=== PATIENT | female | born 1960 | race Caucasian/White ===

== ENCOUNTER → 2017-10-02 11:19 | Outpatient (CLI) | payer OTHER, SELFPAY ==
[2017-10-02 12:27] LABS: Absolute Lymphocyte Count 2.23 X10^3/ul (0.83-4.51); Basophil# 0.08 X10^3/uL; Basophil% 0.9 % (0-1); Eosinophil# 0.19 X10^3/uL; Eosinophils% 2.2 % (0-5); Hematocrit 29.7 % (37-47); Hemoglobin 8.2 g/dl (12.0-15.0); Lymphocyte # 2.23 X10^3/ul (4.0); Lymphocyte % 26.1 % (19-41); Mean Corp Hgb Conc 27.6 g/gl (32-36); Mean Corpuscular Hgb 22.3 pg (27.0-32.0); Mean Corpuscular Volume 80.9 fL (81-99); Mean Platelet Vol. 10.7 fl (6.2-12.0); Monocyte# 1.05 X10^3/uL; Monocyte% 12.3 % (0-10); Neutrophil # 4.96 X10^3/uL (2.7-7.7); Neutrophil % 58.3 % (47-70); Platelet Count 378 K/mm3 (150-450); RBC Distribution Width CV 17.8 % (11.6-14.6); RBC Distribution Width SD 50.8 fl (35.1-43.9); Red Blood Count 3.67 M/mm3 (4.2-5.4); White Blood Count 8.5 K/mm3 (4.4-11.0)
[2017-10-02 12:30] LABS: POSITIVE COUNT NO; POSITIVE DIFFERENTIAL NO; POSITIVE MORPHOLOGY NO
[2017-10-02 13:32] LABS: ALB/GLOB Ratio 0.8 RATIO (0.9-2.4); AST(SGOT) 12 U/L (15-37); Alanine Aminotransfer ALT/SGPT 17 U/L (13-56); Albumin, Serum 3.2 g/dL (3.2-5.0); Alkaline Phosphatase 110 U/L (45-117); Anion Gap 12 (5-15); BUN 12 mg/dL (7-18); BUN/Creat Ratio 13.9 RATIO (10-20); Calcium,Total 8.3 mg/dL (8.5-10.1); Chloride 103 mmol/L (98-107); Creatinine, Serum 0.86 mg/dL (0.55-1.02); EST Glomerular Filtration Rate 71 mL/min (>60); Est Glom Filt Rate - Afr Amer 86 mL/min (>60); Globulin 3.8 g/dL (2.2-4.2); Glucose 134 mg/dL (74-106); Potassium 4.2 mmol/L (3.5-5.1); Sodium Level 137 mmol/L (136-145); Thyroid Stim Hormone (TSH) 2.15 uIU/mL (0.358-3.74)
[2017-10-02 13:38] LABS: Vitamin D,25 Hydroxy 22.5 ng/mL (19.95-100.01)
== END ==
PROVIDERS: Family Provider Family Medicine Geriatric Medicine; PCP Family Medicine Geriatric Medicine; Visit Provider Family Medicine Geriatric Medicine
DX: I10 Essential (primary) hypertension (principal); E03.9 Hypothyroidism, unspecified; E55.9 Vitamin D deficiency, unspecified
CPT/HCPCS: 36415; 80053; 82306; 84443; 85025

== ENCOUNTER → 2017-10-13 16:08 | Outpatient (CLI) | payer OTHER, SELFPAY ==
[2017-10-13 17:40] LABS: Anion Gap 6 (5-15); BUN 13 mg/dL (7-18); BUN/Creat Ratio 18.1 RATIO (10-20); Calcium,Total 8.2 mg/dL (8.5-10.1); Chloride 106 mmol/L (98-107); Creatinine, Serum 0.72 mg/dL (0.55-1.02); EST Glomerular Filtration Rate 88 mL/min (>60); Est Glom Filt Rate - Afr Amer 107 mL/min (>60); Glucose 127 mg/dL (74-106); Potassium 3.9 mmol/L (3.5-5.1); Sodium Level 139 mmol/L (136-145)
[2017-10-13 17:58] LABS: BNP,B-Type NATRIURETIC PEPTIDE 30.4 pg/mL (0-100)
== END ==
PROVIDERS: Family Provider Family Medicine Geriatric Medicine; PCP Family Medicine Geriatric Medicine; Visit Provider Physician Assistant Medical
DX: I25.10 Atherosclerotic heart disease of native coronary artery without angina pectoris (principal); R06.02 Shortness of breath; R60.9 Edema, unspecified
CPT/HCPCS: 36415; 80048; 83880

== ENCOUNTER → 2017-10-14 10:20 | Outpatient (CLI) | payer OTHER, SELFPAY ==
--- NOTE | 2017-10-14 19:51 | LEAS_ITS ---
Arterial Study - Arterial Study Arterial Study: This is a 57-year-old female with a history of hypertension and coronary artery disease. The patient presents with bilateral lower extremity pain with ambulation, suggesting the presence of intermittent claudication resulting from arterial occlusive disease. She is brought to the noninvasive vascular laboratory at this time for the purpose of bilateral noninvasive lower extremity arterial assessment. Doppler signal assessment was used to evaluate the pulses at ankle level bilaterally. The posterior tibial and dorsalis pedis pulses were triphasic bilaterally. Segmental limb pressures were obtained at ankle level bilaterally. The right ankle pressure, as determined by posterior tibial pulse, was measured at 123 mmHg. The right ankle pressure, as determined by dorsalis pedis pulse, was measured at 132 mmHg. The left ankle pressure, as determined by posterior tibial pulse, was measured at 138 mmHg. The left ankle pressure, as determined by dorsalis pedis pulse, was measured at 118 mmHg. Resting ankle-brachial indices were calculated bilaterally. The resting right ankle-brachial index was calculated to be 1.02. The resting left ankle- brachial index was calculated to be 1.07. Impression: Based upon the findings of this resting noninvasive lower extremity arterial study, there is no evidence of significant atherosclerotic peripheral arterial occlusive disease in the lower extremities bilaterally. Triphasic waveforms were noted at ankle level bilaterally. Resting ankle-brachial indices were bilaterally normal. In summary, this represents a normal resting noninvasive lower extremity arterial study bilaterally.
== END ==
PROVIDERS: Family Provider Family Medicine Geriatric Medicine; PCP Family Medicine Geriatric Medicine; Visit Provider Family Medicine Geriatric Medicine
DX: I73.9 Peripheral vascular disease, unspecified (principal)
CPT/HCPCS: 93922

== ENCOUNTER → 2017-10-29 15:10 | Outpatient (CLI) | payer OTHER, SELFPAY | PROVIDERS: Family Provider Family Medicine Geriatric Medicine; PCP Family Medicine Geriatric Medicine; Visit Provider Family Medicine Geriatric Medicine | DX: R68.83 Chills (without fever) (principal) | CPT/HCPCS: 87633 ==

== ENCOUNTER → 2017-11-02 06:09 | Outpatient (CLI) | payer OTHER, SELFPAY ==
--- NOTE | 2017-11-02 18:18 | STRESSREP ---
Stress Test Report Pharmacologic myocardial perfusion stress test. 57-year-old lady with a history of chest pain. Stress protocol: Resting EKG demonstrates normal sinus rhythm with a rate of 73 bpm normal intervals and noted resting pressures 142/80 mmHg. 0.4 mg of regadenoson was infused per usual protocol followed by rapid intravenous saline flush injection continuous EKG monitoring was performed. The maximum heart rate attained was 92 bpm is 57% maximum predicted heart rate the maximum workload attained was 1 metabolic equivalent. At rest there were no ST or T-wave changes noted suggest abnormal flow reserve at peak infusion no ST or T-wave changes were noted suggest abnormal flow reserve. Resting blood pressure is 142/80 final blood pressure was 140/72. Myocardial perfusion protocol. 14.4 mCi of technetium 99m sestamibi was injected at rest. 0.4 mg regadenoson was infused per usual protocol. Continuous EKG monitoring was performed. At peak infusion 44.3 mCi of technetium 99 sestamibi was injected stress images were obtained stress and rest images were reconstructed and compared in the short axis vertical long horizontal long axis. Gated images were also obtained next Perfusion SPECT analysis: Review of the stress images demonstrate normal uptake of tracer noted in all areas of the myocardium. The rest images similarly demonstrate normal uptake of tracer noted in all areas of myocardium. No areas of reversibility are noted suggest ischemia no previous infarct is noted. Gated SPECT analysis: The gated ejection fraction is 72%. Conclusion Normal pharmacologic myocardial perfusion stress test. Preserved ejection fraction.
== END ==
PROVIDERS: Family Provider Family Medicine Geriatric Medicine; PCP Family Medicine Geriatric Medicine; Visit Provider Physician Assistant Medical
DX: I25.10 Atherosclerotic heart disease of native coronary artery without angina pectoris (principal); I10 Essential (primary) hypertension; R07.9 Chest pain, unspecified
CPT/HCPCS: 78452; 93017; A9500; A4216; J2785

== ENCOUNTER 2017-11-30 18:13 | Inpatient (IN) | payer OTHER, SELFPAY ==
[2017-11-30] VITALS (13 sets, daily range): BP systolic 101–138; BP diastolic 43–71; PULSE 73–81; RESP 15–21; TEMP 36.7–37.1; O2SAT 95–99; BMI 43.2; BMI 38.5
--- NOTE | 2017-11-30 18:43 | EKG12_ITS ---
Test Reason : HYPOTENSION Blood Pressure : / mmHG Vent. Rate : 078 BPM Atrial Rate : 078 BPM P-R Int : 158 ms QRS Dur : 096 ms QT Int : 386 ms P-R-T Axes : 057 044 047 degrees QTc Int : 440 ms Normal sinus rhythm Normal ECG Confirmed by HEMAL AGUILAR MD ([id number]), acquisition editor MANJIT PINEDA ([id number] on 12/03/2017 1:54:50 PM Referred By: CONCHITA Confirmed By:HEMAL AGUILAR MD
[2017-11-30 19:13] LABS: Absolute Lymphocyte Count 3.38 X10^3/ul (0.83-4.51); Absolute Neutrophil Count 3.9 X10^3/uL (2.0-7.7); Basophil# 0.07 X10^3/uL; Basophil% 0.8 % (0-1); Eosinophil# 0.16 X10^3/uL; Eosinophils% 1.9 % (0-5); Hematocrit 21.7 % (37-47); Lymphocyte # 3.38 X10^3/ul (4.0); Lymphocyte % 39.7 % (19-41); Mean Corp Hgb Conc 26.3 g/gl (32-36); Mean Corpuscular Hgb 19.2 pg (27.0-32.0); Mean Corpuscular Volume 73.1 fL (81-99); Mean Platelet Vol. 9.6 fl (6.2-12.0); Monocyte# 0.99 X10^3/uL; Monocyte% 11.6 % (0-10); Neutrophil # 3.89 X10^3/uL (2.7-7.7); Neutrophil % 45.6 % (47-70); Platelet Count 317 K/mm3 (150-450); RBC Distribution Width CV 19.3 % (11.6-14.6); RBC Distribution Width SD 52.1 fl (35.1-43.9); Red Blood Count 2.97 M/mm3 (4.2-5.4); White Blood Count 8.5 K/mm3 (4.4-11.0)
[2017-11-30 19:16] LABS: Differential Indicated SCAN CRITERIA MET; Hemoglobin 5.7 g/dl (12.0-15.0); POSITIVE COUNT YES; POSITIVE DIFFERENTIAL NO; POSITIVE MORPHOLOGY YES
--- NOTE | 2017-11-30 19:16 | ED.RN ---
LAB CALLS WITH CRITICAL RESULT, HEMOGLOBIN 5.7, DR. ARANGO MADE AWARE.
[2017-11-30 19:24] LABS: International Normalized Ratio 1.3; Prothrombin Time (Protime)PT. 15.8 SECONDS (11.7-14.9)
[2017-11-30 19:25] LABS: Partial Thromboplast Time 45.6 Seconds (24.1-36.2)
[2017-11-30 19:30] LABS: Anisocytosis 2+; Microcytosis 3+
[2017-11-30 19:31] LABS: ALB/GLOB Ratio 0.9 RATIO (0.9-2.4); AST(SGOT) 34 U/L (15-37); Alanine Aminotransfer ALT/SGPT 18 U/L (13-56); Albumin, Serum 3.2 g/dL (3.2-5.0); Alkaline Phosphatase 105 U/L (45-117); Anion Gap 8 (5-15); BUN 13 mg/dL (7-18); BUN/Creat Ratio 16.3 RATIO (10-20); Chloride 111 mmol/L (98-107); EST Glomerular Filtration Rate 78 mL/min (>60); Est Glom Filt Rate - Afr Amer 94 mL/min (>60); Estimated Creatinine Clearance 73.63 ml/min; Globulin 3.7 g/dL (2.2-4.2); Glucose 100 mg/dL (74-106); Hypochromasia 3+; Polychromasia RARE; Potassium 4.3 mmol/L (3.5-5.1); Protein, Total 6.9 g/dL (6.4-8.2); Sodium Level 142 mmol/L (136-145)
[2017-11-30 19:39] LABS: Bacteria 0 SEEN /hpf (None Seen); Color, Urine Yellow (Yellow); Glucose, Dipstick Normal (Normal); Ketone-Dipstick 5 mg/dl (Negative); Leukocyte Esterase-Dipstick 25 /ul (Negative); Mucous, Urine 0 SEEN /hpf (<or=2+); Nitrite-Dipstick Negative (Negative); Occult Blood-Urine Negative /ul (Negative); Protein-Dipstick 15 mg/dl (Negative); Red Blood Cells-Urine 0 SEEN /hpf (0-5); Urine Bilirubin Dipstick Negative (Negative); Urine Clarity Sl. Cloudy (Clear); Urine Urobilinogen 1 mg/dl (Normal)
[2017-11-30 20:00] LABS: Squamous Epithelial Cells - UA 0-5 SEEN /hpf (5-10); White Blood Cells 0-5 SEEN /hpf (0-5)
--- NOTE | 2017-11-30 21:26 | HP.PCM_ITS ---
Problem List (1) Gastrointestinal bleed Status: Acute Qualifiers: GI bleed type/associated pathology: unspecified gastrointestinal hemorrhage type Qualified Code(s): K92.2 - Gastrointestinal hemorrhage, unspecified (2) Nicotine abuse Status: Chronic (3) Atherosclerotic heart disease of [place] coronary artery without angina pectoris Status: Chronic Qualifiers: Comment: PTCA of RA & diagonal with intracoronary stent November 2008 (4) Presence of stent in coronary artery Status: Chronic (5) CAD (coronary artery disease) Status: Chronic Qualifiers: (6) Hypertension Status: Chronic Qualifiers: (7) Hyperlipidemia Status: Chronic Qualifiers: History of Present Illness Date of Admission: 11/30/17 Chief Complaint: fatigue , gastrointestinal bleed The patient is a 57 year old female patient presents to the ER with severe fatigue. The patient has a history of an arterial blood clot in her right leg diagnosed in June. She has been on Coumadin until of last week when her physician started Lovenox shots. She has a history of three coronary artery stents in 2008 and formerly took aspirin and Plavix. Over the past four months she has been diagnosed with anemia Hg reported as 8 but has had no hemoglobin checks since four months ago, according to the patient. She now has a hemoglobin of 5.7 and is clinically fatigued. She denies chest pain or shortness of breath. She has been typed and crossed for two units of PRBC by the ER physician. Dr Foster has requested a Protonix drip and a total of 3 units of PRBC prior to his plan for colonoscopy/endocopy at 1:00 tomorrow. She will be placed in ICU due to severe microcytic hypochromatic anemia. 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) CAD (coronary artery disease) (Chronic) Hypertension (Chronic) Hyperlipidemia (Chronic) Dysarthria (Chronic) Expressive language disorder (Chronic) Allergies bupropion [From Wellbutrin] Allergy (Verified 11/30/17 18:17) Rash [id number] Reductase Inhibitor Allergy (Verified 11/30/17 18:17) Other UNABLE TO WALK codeine Adverse Reaction (Verified 11/30/17 18:17) Other PT REPORTS GOING TO SLEEP AND HAS HARD TIME WAKING UP Home Medications: Ambulatory Orders Medication Instructions Recorded Metoprolol(XL)Succ [Toprol Xl 50 mg PO BID 09/05/16 (Beta Marlon)] duloxetine 60 mg capsule,delayed 60 mg PO BID cap 07/27/17 release lisinopril 20 mg tablet 20 mg PO QDAY 07/27/17 warfarin 6 mg tablet 8.5 mg PO DAILY 07/27/17 isosorbide mononitrate ER 60 mg 60 mg PO DAILY #90 tab 10/14/17 tablet,extended release 24 hr nitroglycerin 0.4 mg sublingual 0.4 mg SUBLINGUAL Q5-15M PRN #25 10/14/17 tablet tab polysaccharide iron complex 150 mg 150 mg PO QDAY cap 11/13/17 iron capsule omeprazole 40 mg capsule,delayed 40 mg PO QDAY 11/23/17 release rosuvastatin 10 mg tablet 10 mg PO QHS tab 11/23/17 Enoxaparin Sodium [Lovenox] 120 mg SQ BID 11/30/17 Levothyroxine [Synthroid] 25 mcg PO DAILY 11/30/17 Surgical History: appendectomy Smoking Status: Current every day smoker - *Family History Maternal History Items: No pertinent history Review of Systems Constitutional: Reports: Weakness, Fatigue. Denies: Chills, Fever, Weight Change HEENT: Denies: Head Aches, Sinus Congestion, Sinus Drainage Cardiovascular: Denies: Chest Pain, Palpitations Respiratory: Denies: Cough, Shortness of breath at rest, Sputum production Gastrointestinal: Denies: Abdominal Pain, Nausea, Vomiting Genitourinary: Denies: Dysuria Musculoskeletal: Denies: Joint Pain, Joint Tenderness Skin: Denies: Rash, Wounds Neurological: Denies: Numbness, Tingling, Focal weakness Psychiatric: Denies: Anxiety, Depression, Homicidal Ideations, Suicidal Ideations Hematologic/ Lymphatic: Reports: Anemia. Denies: Easy Bruising, Easy Bleeding VTE Information - Inpt Only VTE Present on Admission: No VTE Mechan Device Prophylaxis: SCD's VTE Pharm Prophylaxis ordered?: No Reason prophylaxis not ordered:: Medical Contraindication Patient Problems: Active and Suspected Problems (Last Reviewed 11/24/17 @ 13:16 by Phi Morris) Gastrointestinal bleed (Acute) - Physical Exam General: Alert, Oriented x3, Cooperative, Lethargic HEENT: Atraumatic, Normocephalic Neck: Supple Lungs: Clear to auscultation, Normal air movement, No rhonchi, No wheeze, No rales Cardiovascular: Regular rate, Regular Rhythm, Normal S1, Normal S2, No murmurs Abdomen: Bowel Sounds Present, Soft, Non Tender, Obese Extremities: Capillary Refill Less than 3 Seconds, Edema - 1+ lower ext edema Skin: No rashes, No breakdown Musculoskeletal: No Tenderness to Palpation of Joints or Extremities Neurological: Neuro grossly intact Psych/Mental Status: Normal Affect, Appropriate Vital Signs Temp Pulse Resp BP Pulse Ox 98.8 F 73 15 136/56 H 96 11/30/17 21:08 11/30/17 21:08 11/30/17 21:08 11/30/17 21:08 11/30/17 21:08 Oxygen Delivery Method Room Air Weight: 276 lb 0.3 oz Body Mass Index (BMI) 43.2 Intake and Output for Last 24 Hours 11/28/17 11/29/17 11/30/17 23:59 23:59 23:59 Intake Total 0 / 0 Balance 0 / 0 Laboratory Tests Past 24 Hrs 11/30/17 11/30/17 11/30/17 18:50 18:50 18:50 WBC 8.5 RBC 2.97 L Hgb 5.7 L* Hct 21.7 L MCV 73.1 L MCH 19.2 L MCHC 26.3 L RDW 19.3 H RDW Differential 52.1 H Plt Count 317 MPV 9.6 Immature Gran % (Auto) 0.400 Neut % (Auto) 45.6 L Lymph % (Auto) 39.7 Pershing % (Auto) 11.6 H Eos % (Auto) 1.9 Baso % (Auto) 0.8 Absolute Neuts (auto) 3.9 Absolute Lymphs (auto) 3.38 Total Counted Not Reportable Diff Path Review May foll Polychromasia RARE Hypochromasia 3+ Anisocytosis 2+ Microcytosis 3+ PT 15.8 H INR 1.3 APTT 45.6 H Sodium 142 Potassium 4.3 Chloride 111 H Carbon Dioxide 23.0 Anion Gap 8 BUN 13 Creatinine 0.80 Estim Creat Clear Calc 73.63 Est GFR (MDRD) Af Amer 94 Est GFR (MDRD) Non-Af 78 BUN/Creatinine Ratio 16.3 Glucose 100 Calcium 8.0 L Total Bilirubin 0.40 AST 34 ALT 18 Alkaline Phosphatase 105 Total Protein 6.9 Albumin 3.2 Globulin 3.7 Albumin/Globulin Ratio 0.9 Urine Color Urine Clarity Urine pH Ur Specific [place] Urine Protein Urine Glucose (UA) Urine Ketones Urine Occult Blood Urine Nitrite Urine Bilirubin Urine Urobilinogen Ur Leukocyte Esterase Urine RBC Urine WBC Ur Squamous Epith Cells Urine Bacteria Urine Mucus Blood Type Antibody Screen Crossmatch 11/30/17 11/30/17 11/30/17 18:50 18:50 18:50 WBC RBC Hgb Hct MCV MCH MCHC RDW RDW Differential Plt Count MPV Immature Gran % (Auto) Neut % (Auto) Lymph % (Auto) [place]hing % (Auto) Eos % (Auto) Baso % (Auto) Absolute Neuts (auto) Absolute Lymphs (auto) Total Counted Diff Path Review Polychromasia Hypochromasia Anisocytosis Microcytosis PT INR APTT Sodium Potassium Chloride Carbon Dioxide Anion Gap BUN Creatinine Estim Creat Clear Calc Est GFR (MDRD) Af Amer Est GFR (MDRD) Non-Af BUN/Creatinine Ratio Glucose Calcium Total Bilirubin AST ALT Alkaline Phosphatase Total Protein Albumin Globulin Albumin/Globulin Ratio Urine Color Yellow Urine Clarity Sl. Cloudy Urine pH 6.0 Ur Specific [place] 1.020 Urine Protein 15 H Urine Glucose (UA) Normal Urine Ketones 5 H Urine Occult Blood Negative Urine Nitrite Negative Urine Bilirubin Negative Urine Urobilinogen 1 H Ur Leukocyte Esterase 25 H Urine RBC 0 SEEN Urine WBC 0-5 SEEN Ur Squamous Epith Cells 0-5 SEEN Urine Bacteria 0 SEEN Urine Mucus 0 SEEN Blood Type O POSITIVE Antibody Screen NEGATIVE Crossmatch See Detail Assessment/Plan Active and Suspected Problems (Last Reviewed 11/24/17 @ 13:16 by Phi Morris) Gastrointestinal bleed (Acute) Chronic Problems (Last Reviewed 11/24/17 @ 13:16 by Phi Morris) Nicotine abuse (Chronic) Atherosclerotic heart disease of [place] coronary artery without angina pectoris (Chronic) PTCA of RA & diagonal with intracoronary stent November 2008 Presence of stent in coronary artery (Chronic) 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
[2017-12-01] VITALS (29 sets, daily range): BP systolic 122–161; BP diastolic 53–80; PULSE 69–89; RESP 16–22; TEMP 36.5–37.1; O2SAT 93–97
[2017-12-01 00:13] LABS: M R Staph aureus DNA By PCR Negative (Negative); Probe Check PASS; Specimen Processing Control PASS
[2017-12-01 04:06] LABS: Hematocrit 24.4 % (37-47); Mean Corp Hgb Conc 28.7 g/gl (32-36); Mean Corpuscular Hgb 21.9 pg (27.0-32.0); Mean Corpuscular Volume 76.3 fL (81-99); Mean Platelet Vol. 10.6 fl (6.2-12.0); Platelet Count 261 K/mm3 (150-450); RBC Distribution Width CV 18.8 % (11.6-14.6); RBC Distribution Width SD 50.4 fl (35.1-43.9); White Blood Count 5.5 K/mm3 (4.4-11.0)
[2017-12-01 04:58] LABS: Scan Indicated on CBC? Y/N YES- FLAGS NOTED
[2017-12-01 04:59] LABS: Differential Comment SCANNED
--- NOTE | 2017-12-01 07:11 | PCM.CON.CC ---
Reason for Consult Date of Consultation: 12/01/17 Reason for Consultation: Acute blood loss anemia History of Present Illness: The patient is a 57-year-old female, with a history as outlined below, who presented to the emergency department on November 30 with complaints of fatigue. The patient does have a history of coronary artery disease for which she is status post angioplasty and stenting of her RCA in 2008. She also had a mild CVA in June 2012 and was noted to have bilateral carotid stenosis for which she underwent endarterectomy. She also has known obstructive sleep apnea. The patient was seen in the office of Dr. Vanessa of general surgery on November 13 for evaluation of anemia and melena. There were initial plans for the patient to undergo an outpatient upper and lower endoscopy. On presentation to the emergency department, the patient was noted to be afebrile and hemodynamically stable. She was maintaining appropriate oxygen saturations on room air. Laboratory evaluation revealed a hemoglobin level of 5.7 g/dL. Her last hemoglobin in our system from September 2017 was 8.2 g/dL. MCV was noted to be 73. INR was normal at 1.3. Chemistry profile was largely unremarkable. Urinalysis was negative. MRSA screen was negative. The patient received 3 units of packed red blood cells and was subsequently transferred to the medical intensive care unit for ongoing management. Of note, gastroenterology was contacted regarding the patient and they plan to perform endoscopy sometime today. 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) CAD (coronary artery disease) (Chronic) Hypertension (Chronic) Hyperlipidemia (Chronic) Dysarthria (Chronic) Expressive language disorder (Chronic) Allergies bupropion [From Wellbutrin] Allergy (Verified 11/30/17 18:17) Rash Qysylkz-Vxs-Rvm Reductase Inhibitor Allergy (Verified 11/30/17 18:17) Other UNABLE TO WALK codeine Adverse Reaction (Verified 11/30/17 18:17) Other PT REPORTS GOING TO SLEEP AND HAS HARD TIME WAKING UP Home Medications: Ambulatory Orders Medication Instructions Recorded duloxetine 60 mg capsule,delayed 60 mg PO BID cap 07/27/17 release lisinopril 20 mg tablet 20 mg PO QDAY 07/27/17 isosorbide mononitrate ER 60 mg 60 mg PO DAILY #90 tab 10/14/17 tablet,extended release 24 hr nitroglycerin 0.4 mg sublingual 0.4 mg SUBLINGUAL Q5-15M PRN #25 10/14/17 tablet tab polysaccharide iron complex 150 mg 150 mg PO QDAY cap 11/13/17 iron capsule omeprazole 40 mg capsule,delayed 40 mg PO QDAY 11/23/17 release rosuvastatin 10 mg tablet 20 mg PO QHS tab 11/23/17 Levothyroxine [Synthroid] 25 mcg PO DAILY 11/30/17 Metoprolol Tartrate [Lopressor 50 mg PO BID 12/01/17 (beta linn)] Surgical History: appendectomy Smoking Status: Current every day smoker - *Family History Maternal History Items: No pertinent history Review of Systems Constitutional: Reports: Malaise, Fatigue. Denies: Chills, Fever, Night Sweats Eyes: Denies: Blurred vision, Double vision HEENT: Denies: Head Aches, Sinus Congestion, Sinus Drainage Cardiovascular: Denies: Chest Pain, Palpitations Respiratory: Reports: Shortness of Breath. Denies: Cough, Shortness of breath at rest, Sputum production Gastrointestinal: Denies: Abdominal Pain, Nausea, Vomiting Genitourinary: Denies: Dysuria Musculoskeletal: Denies: Joint Pain, Joint Tenderness Skin: Denies: Rash, Wounds Neurological: Denies: Numbness, Tingling, Focal weakness Psychiatric: Denies: Anxiety, Depression, Homicidal Ideations, Suicidal Ideations Hematologic/ Lymphatic: Reports: Anemia, Hx of blood transfusion Patient Problems: Active and Suspected Problems (Last Reviewed 11/24/17 @ 13:16 by Phi Morris) Gastrointestinal bleed (Acute) Objective: The patient's most recent lab work, culture data and imaging studies have all been personally reviewed. Surface echocardiogram dated June 2017 revealed mild concentric LVH with an ejection fraction of 60%. There was mild focal aortic valve calcification. - Physical Exam General: Alert, Oriented x3, Cooperative, No apparent distress HEENT: Atraumatic, PERRLA, Normocephalic Oral: No Gingival or Mucosal Lesions/ Ulcerations Neck: Supple, No Nodes, Trachea Midline Lungs: No rhonchi, No wheeze, No rales Cardiovascular: Regular rate, Regular Rhythm, Normal S1, Normal S2, Murmur Abdomen: Bowel Sounds Present, Soft, Non Tender Extremities: No clubbing, No cyanosis, No edema Skin: No breakdown Musculoskeletal: No Tenderness to Palpation of Joints or Extremities Lymphatic: No Cervical, Supraclavicular, or Inguinal Adenopathy Neurological: Neuro grossly intact Psych/Mental Status: Alert and oriented to time, place, person, mood and affect Vital Signs Temp Pulse Resp BP Pulse Ox 97.8 F 72 18 134/63 H 93 12/01/17 06:58 12/01/17 07:03 12/01/17 07:03 12/01/17 07:03 12/01/17 07:03 Oxygen Delivery Method Room Air Weight: 277 lb 8.992 oz Body Mass Index (BMI) 43.2 Intake and Output for Last 24 Hours 11/29/17 11/30/17 12/01/17 23:59 23:59 23:59 Intake Total 475 / 475 560 / 560 Output Total 400 / 400 Balance 475 / 475 160 / 160 Laboratory Tests Past 24 Hrs 11/30/17 12/01/17 12/01/17 22:19 03:33 06:50 WBC 5.5 Pending RBC 3.20 L Pending Hgb 7.0 L Pending Hct 24.4 L Pending MCV 76.3 L Pending MCH 21.9 L Pending MCHC 28.7 L Pending RDW 18.8 H Pending RDW Differential 50.4 H Pending Plt Count 261 Pending MPV 10.6 Differential Comment SCANNED MRSA (PCR) Negative Labs (Last 48 Hours) 11/30/17 11/30/17 11/30/17 18:50 18:50 18:50 WBC 8.5 RBC 2.97 L Hgb 5.7 L* Hct 21.7 L MCV 73.1 L MCH 19.2 L MCHC 26.3 L RDW 19.3 H RDW Differential 52.1 H Plt Count 317 MPV 9.6 Immature Gran % (Auto) 0.400 Neut % (Auto) 45.6 L Lymph % (Auto) 39.7 [place] % (Auto) 11.6 H Eos % (Auto) 1.9 Baso % (Auto) 0.8 Absolute Neuts (auto) 3.9 Absolute Lymphs (auto) 3.38 Total Counted Not Reportable Differential Comment Diff Path Review May foll Polychromasia RARE Hypochromasia 3+ Anisocytosis 2+ Microcytosis 3+ PT 15.8 H INR 1.3 APTT 45.6 H Sodium 142 Potassium 4.3 Chloride 111 H Carbon Dioxide 23.0 Anion Gap 8 BUN 13 Creatinine 0.80 Estim Creat Clear Calc 73.63 Est GFR (MDRD) Af Amer 94 Est GFR (MDRD) Non-Af 78 BUN/Creatinine Ratio 16.3 Glucose 100 Calcium 8.0 L Total Bilirubin 0.40 AST 34 ALT 18 Alkaline Phosphatase 105 Total Protein 6.9 Albumin 3.2 Globulin 3.7 Albumin/Globulin Ratio 0.9 Urine Color Urine Clarity Urine pH Ur Specific [place] Urine Protein Urine Glucose (UA) Urine Ketones Urine Occult Blood Urine Nitrite Urine Bilirubin Urine Urobilinogen Ur Leukocyte Esterase Urine RBC Urine WBC Ur Squamous Epith Cells Urine Bacteria Urine Mucus MRSA (PCR) Blood Type Antibody Screen Crossmatch 11/30/17 11/30/17 11/30/17 18:50 18:50 18:50 WBC RBC Hgb Hct MCV MCH MCHC RDW RDW Differential Plt Count MPV Immature Gran % (Auto) Neut % (Auto) Lymph % (Auto) [place] % (Auto) Eos % (Auto) Baso % (Auto) Absolute Neuts (auto) Absolute Lymphs (auto) Total Counted Differential Comment Diff Path Review Polychromasia Hypochromasia Anisocytosis Microcytosis PT INR APTT Sodium Potassium Chloride Carbon Dioxide Anion Gap BUN Creatinine Estim Creat Clear Calc Est GFR (MDRD) Af Amer Est GFR (MDRD) Non-Af BUN/Creatinine Ratio Glucose Calcium Total Bilirubin AST ALT Alkaline Phosphatase Total Protein Albumin Globulin Albumin/Globulin Ratio Urine Color Yellow Urine Clarity Sl. Cloudy Urine pH 6.0 Ur Specific [place] 1.020 Urine Protein 15 H Urine Glucose (UA) Normal Urine Ketones 5 H Urine Occult Blood Negative Urine Nitrite Negative Urine Bilirubin Negative Urine Urobilinogen 1 H Ur Leukocyte Esterase 25 H Urine RBC 0 SEEN Urine WBC 0-5 SEEN Ur Squamous Epith Cells 0-5 SEEN Urine Bacteria 0 SEEN Urine Mucus 0 SEEN MRSA (PCR) Blood Type O POSITIVE Antibody Screen NEGATIVE Crossmatch See Detail 11/30/17 11/30/17 12/01/17 18:50 22:19 03:33 WBC 5.5 RBC 3.20 L Hgb 7.0 L Hct 24.4 L MCV 76.3 L MCH 21.9 L MCHC 28.7 L RDW 18.8 H RDW Differential 50.4 H Plt Count 261 MPV 10.6 Immature Gran % (Auto) Neut % (Auto) Lymph % (Auto) [place] % (Auto) Eos % (Auto) Baso % (Auto) Absolute Neuts (auto) Absolute Lymphs (auto) Total Counted Differential Comment SCANNED Diff Path Review Polychromasia Hypochromasia Anisocytosis Microcytosis PT INR APTT Sodium Potassium Chloride Carbon Dioxide Anion Gap BUN Creatinine Estim Creat Clear Calc Est GFR (MDRD) Af Amer Est GFR (MDRD) Non-Af BUN/Creatinine Ratio Glucose Calcium Total Bilirubin AST ALT Alkaline Phosphatase Total Protein Albumin Globulin Albumin/Globulin Ratio Urine Color Urine Clarity Urine pH Ur Specific [place] Urine Protein Urine Glucose (UA) Urine Ketones Urine Occult Blood Urine Nitrite Urine Bilirubin Urine Urobilinogen Ur Leukocyte Esterase Urine RBC Urine WBC Ur Squamous Epith Cells Urine Bacteria Urine Mucus MRSA (PCR) Negative Blood Type Antibody Screen Crossmatch See Detail 12/01/17 06:50 WBC 5.1 RBC 3.64 L Hgb 8.2 L Hct 27.9 L MCV 76.6 L MCH 22.5 L MCHC 29.4 L RDW 18.6 H RDW Differential 52.6 H Plt Count 241 MPV 10.1 Immature Gran % (Auto) Neut % (Auto) Lymph % (Auto) [place] % (Auto) Eos % (Auto) Baso % (Auto) Absolute Neuts (auto) Absolute Lymphs (auto) Total Counted Differential Comment Diff Path Review Polychromasia Hypochromasia Anisocytosis Microcytosis PT INR APTT Sodium Potassium Chloride Carbon Dioxide Anion Gap BUN Creatinine Estim Creat Clear Calc Est GFR (MDRD) Af Amer Est GFR (MDRD) Non-Af BUN/Creatinine Ratio Glucose Calcium Total Bilirubin AST ALT Alkaline Phosphatase Total Protein Albumin Globulin Albumin/Globulin Ratio Urine Color Urine Clarity Urine pH Ur Specific [place] Urine Protein Urine Glucose (UA) Urine Ketones Urine Occult Blood Urine Nitrite Urine Bilirubin Urine Urobilinogen Ur Leukocyte Esterase Urine RBC Urine WBC Ur Squamous Epith Cells Urine Bacteria Urine Mucus MRSA (PCR) Blood Type Antibody Screen Crossmatch Assessment/Plan Active and Suspected Problems (Last Reviewed 11/24/17 @ 13:16 by Phi Morris) Gastrointestinal bleed (Acute) RECOMMENDATIONS: 1. Continue PPI drip. 2. Monitor blood counts. Transfuse for a hemoglobin greater than 8 g/dL 3. Plan endoscopy this afternoon by gastroenterology 4. Okay to continue supplemental IV fluids for now. 5. Encourage incentive spirometer use while in bed and mobilize patient as tolerated. IMPRESSIONS: 1. Acute blood loss anemia in the setting of chronic anticoagulation /chronic iron deficiency anemia Patient has been transfused 3 units of packed red blood cells to date. Blood counts incremented appropriately. Plan to check CBC daily. Transfuse to maintain hemoglobin at or above 8 g/dL. Plans for endoscopy later today by gastroenterology. Continue PPI drip for now with plans to transition to twice daily dosing tomorrow. Hold Coumadin accordingly. Okay to continue supplemental IV fluids for now. 2. Coronary artery disease status post PTCA in 2008 Continue home cardiac medication regimen. 3. Hypertension/obesity/GERD/hyperlipidemia/hypothyroidism Complicates care, management, recovery and prognosis. Okay to continue home medications from my perspective. This note was generated with [employer] dictation software. It may contain incorrect words, spelling, and punctuation that were not noted in checking the note before signing. Code Visit Inpatient E&M: 56464 Init Hosp L3
[2017-12-01 07:12] LABS: Hematocrit 27.9 % (37-47); Hemoglobin 8.2 g/dl (12.0-15.0); Mean Corp Hgb Conc 29.4 g/gl (32-36); Mean Corpuscular Hgb 22.5 pg (27.0-32.0); Mean Corpuscular Volume 76.6 fL (81-99); Mean Platelet Vol. 10.1 fl (6.2-12.0); Platelet Count 241 K/mm3 (150-450); RBC Distribution Width CV 18.6 % (11.6-14.6); RBC Distribution Width SD 52.6 fl (35.1-43.9); Red Blood Count 3.64 M/mm3 (4.2-5.4); White Blood Count 5.1 K/mm3 (4.4-11.0)
[2017-12-01 07:16] LABS: Scan Indicated on CBC? Y/N NO
--- NOTE | 2017-12-01 07:45 | PCM.PN.HOSP ---
Patient Problems: Active and Suspected Problems (Last Reviewed 11/24/17 @ 13:16 by Phi Morris) Gastrointestinal bleed (Acute) Subjective: Seen and examined in the morning. 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 Patient was diagnosed to have acute blood loss anemia, Hemoglobin 5.7 g percent secondary to upper GI bleed Patient had 3 units of PRBC transfusion, on IV Protonix drip and GI consult. Vitals/I&O's: Vital Signs Temp Pulse Resp BP Pulse Ox 97.8 F 75 18 134/63 H 93 12/01/17 06:58 12/01/17 07:05 12/01/17 07:03 12/01/17 07:03 12/01/17 07:03 Oxygen Delivery Method Room Air Weight: 277 lb 8.992 oz Body Mass Index (BMI) 43.2 Intake and Output for Last 24 Hours 11/29/17 11/30/17 12/01/17 23:59 23:59 23:59 Intake Total 475 / 475 560 / 560 Output Total 400 / 400 Balance 475 / 475 160 / 160 General: Alert, Oriented x3, Cooperative HEENT: Atraumatic, PERRLA, EOMI, Normocephalic Neck: Supple, No JVD, Negative Carotid Bruits Lungs: Clear to auscultation, Normal air movement Cardiovascular: Regular rate, Regular Rhythm, Normal S1, Normal S2, Murmur - sysotic murmur over aortic region Abdomen: Bowel Sounds Present, Soft, Non Tender, Non-Distended Extremities: No edema, Capillary Refill Less than 3 Seconds Skin: No rashes, No breakdown Musculoskeletal: No Tenderness to Palpation of Joints or Extremities Neurological: Cranial nerves II-XII grossly intact Psych/Mental Status: Normal Affect, Appropriate Laboratory Results 11/30/17 22:19: MRSA (PCR) Negative 12/01/17 03:33: WBC 5.5, RBC 3.20 L, Hgb 7.0 L, Hct 24.4 L, MCV 76.3 L, MCH 21.9 L, MCHC 28.7 L, RDW 18.8 H, RDW Differential 50.4 H, Plt Count 261, MPV 10.6, Differential Comment SCANNED 12/01/17 06:50: WBC 5.1, RBC 3.64 L, Hgb 8.2 L, Hct 27.9 L, MCV 76.6 L, MCH 22.5 L, MCHC 29.4 L, RDW 18.6 H, RDW Differential 52.6 H, Plt Count 241, MPV 10.1 Current Medications Pantoprazole Sodium 80 mg/ (Sodium Chloride) 100 mls @ 10 mls/hr IV Q10H EMMA Last Admin: 11/30/17 23:02 Dose: 10 mls/hr Sodium Chloride () 250 mls @ 15 mls/hr IV .[id number] PRN PRN Reason: SALINE FLUSH Sodium Chloride () 250 mls @ 15 mls/hr IV .[id number] PRN PRN Reason: SALINE FLUSH Magnesium Hydroxide (Milk Of Magnesia) 30 ml PO DAILY PRN PRN PRN Reason: Constipation Sodium Chloride () 5 - 30 ml IV UD PRN PRN Reason: SALINE FLUSH Medical Necessity - Tobacco Use Smoking Status: Current every day smoker Assessment/Plan Active and Suspected Problems (Last Reviewed 11/24/17 @ 13:16 by Phi Morris) Gastrointestinal bleed (Acute) There is a 57-year-old female with history of coronary artery disease status post 3 stent in 2008, history of a stroke with no residual deficit, bilateral carotid stenosis status post endarterectomy, 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 Patient already stopped Coumadin about a week ago. Patient was diagnosed to have acute blood loss anemia, Hemoglobin 5.7 g percent secondary to upper GI bleed Patient had 3 units of PRBC transfusion, on IV Protonix drip and GI consult. 1. Acute blood loss anemia secondary to upper GI bleed with history of chronic anemia: Patient is being admitted in ICU. Hemodynamic monitoring. I and O's monitoring. IV Protonix drip. Patient had 3 units of PRBC transfusion. GI consult Dr. Ortiz noted. Hemoglobin improved from 5.7 g to 8.2 g percent. EGD done in afternoon shows small erosion in duodenal bulb. Plan for colonoscopy tomorrow a.m. Patient can have clear liquid diet and n.p.o. after midnight. Patient is stable to be transferred to floor. 2. Cardiovascular disease: Coronary artery status post stent, PTCA of RCA and diagonal 9, right lower extremity arterial thrombosis, bilateral carotid stenosis status post endarterectomy: Patient is on isosorbide mononitrate, lisinopril, metoprolol and nitroglycerin as needed at home. Can resume after the EGD. Hold Coumadin, NSAIDs and antiplatelet agents. 3. Other chronic comorbidities include hypertension, dyslipidemia, and nicotine use. Home medication reconciliation done. DVT prophylaxis: On bilateral SCDs. Pharmacological prophylaxis contraindicated. Laboratory Results 11/30/17 18:50: WBC 8.5, RBC 2.97 L, Hgb 5.7 L*, Hct 21.7 L, MCV 73.1 L, MCH 19.2 L, MCHC 26.3 L, RDW 19.3 H, RDW Differential 52.1 H, Plt Count 317, MPV 9.6, Immature Gran % (Auto) 0.400, Neut % (Auto) 45.6 L, Lymph % (Auto) 39.7, [place] % (Auto) 11.6 H, Eos % (Auto) 1.9, Baso % (Auto) 0.8, Absolute Neuts (auto) 3.9, Absolute Lymphs (auto) 3.38, Total Counted Not Reportable, Diff Path Review Reviewed, Polychromasia RARE, Hypochromasia 3+, Anisocytosis 2+, Microcytosis 3+ 11/30/17 18:50: PT 15.8 H, INR 1.3, APTT 45.6 H 11/30/17 18:50: Sodium 142, Potassium 4.3, Chloride 111 H, Carbon Dioxide 23.0, Anion Gap 8, BUN 13, Creatinine 0.80, Estim Creat Clear Calc 73.63, Est GFR (MDRD) Af Amer 94, Est GFR (MDRD) Non-Af 78, BUN/Creatinine Ratio 16.3, Glucose 100, Calcium 8.0 L, Total Bilirubin 0.40, AST 34, ALT 18, Alkaline Phosphatase 105, Total Protein 6.9, Albumin 3.2, Globulin 3.7, Albumin/Globulin Ratio 0.9 11/30/17 18:50: Blood Type O POSITIVE, Antibody Screen NEGATIVE 11/30/17 18:50: Urine Color Yellow, Urine Clarity Sl. Cloudy, Urine pH 6.0, Ur Specific [place] 1.020, Urine Protein 15 H, Urine Glucose (UA) Normal, Urine Ketones 5 H, Urine Occult Blood Negative, Urine Nitrite Negative, Urine Bilirubin Negative, Urine Urobilinogen 1 H, Ur Leukocyte Esterase 25 H, Urine RBC 0 SEEN, Urine WBC 0-5 SEEN, Ur Squamous Epith Cells 0-5 SEEN, Urine Bacteria 0 SEEN, Urine Mucus 0 SEEN 11/30/17 18:50: Crossmatch See Detail 11/30/17 18:50: Crossmatch See Detail 11/30/17 22:19: MRSA (PCR) Negative 12/01/17 03:33: WBC 5.5, RBC 3.20 L, Hgb 7.0 L, Hct 24.4 L, MCV 76.3 L, MCH 21.9 L, MCHC 28.7 L, RDW 18.8 H, RDW Differential 50.4 H, Plt Count 261, MPV 10.6, Differential Comment SCANNED 12/01/17 06:50: WBC 5.1, RBC 3.64 L, Hgb 8.2 L, Hct 27.9 L, MCV 76.6 L, MCH 22.5 L, MCHC 29.4 L, RDW 18.6 H, RDW Differential 52.6 H, Plt Count 241, MPV 10.1 This note was generated with [employer] dictation software. Every effort was made to ensure accuracy, however computerized schedule maker mistakes may persist. Code Visit Inpatient E&M: 36928 Subs Hosp L3
[2017-12-01 10:53] LABS: Pathologist Review Reviewed
--- NOTE | 2017-12-01 11:08 | CASEMGMT ---
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 no DC needs identifed @ this time -pt was on Lovenox due to planned scope, had been on Coumadin prior. Still have Lovenox @ home if needed for bridging on dc. Will need to verify dosages. Denis BSN RN ACM
--- NOTE | 2017-12-01 11:55 | PCM.CONS.B ---
- Consult D Reason for consultation: Patient with melena and anemia on Coumadin The patient is a [57] year old [female] who I have been asked to consult. The patient reports she has a history of anemia noted of black stool yesterday and came to the emergency department. Was evaluated and had a hemoglobin of approximately 5.5 noted there was melena, no pain no hematemesis. She reports a history of a DVT currently maintained on Coumadin. Is a history of coronary artery disease she had a stent placed more than 9 years ago. Denies any recent shortness of breath or chest pains. Patient denies any cough asthma wheezing she denies any diabetes review of systems noted today she offers no other complaints. Patient reports she does smoke. Allergies: Ibuprofen ends and codeine Medicati Medications Added to Medication List This Visit Category Date Time Status Pantoprazole Sodium [Protonix] 40 mg Med 12/01/17 22:00 Active 0.9% Normal Saline 100 ml IV Q12 ons:. PMH: Coronary artery disease hypertension elevated lipids DVT PSH: Coronary stents appendectomy Social: She does smoke she is ROS: As noted in the HPI Vitals: Vital Signs Height 5 ft 7 in Weight: 125.9 kg Weight in Pounds 277.6 lbs Pulse Ox 94 Temperature 98.8 F Pulse Rate 70 Respiratory Rate 18 Blood Pressure [BP] 129/53 Blood Pressure 145/60 Blood Pressure Position [BP] Semi-Fowlers Blood Pressure Position Semi-Fowlers HEENT: Anicteric sclera conjunctiva pale NECK: Supple HEART: S1-S2 no murmur heard LUNGS: Bilaterally clear ABDOMEN: Obese soft nontender no organomegaly EXTER: No cyanosis 1-2+ edema Neuro: Alert and oriented no deficits Impression: There is a 57-year-old female presenting with a black stool and anemia: Maintained on Coumadin for history of DVT she appears to have a chronic anemia with a recent blood count of 8 now was down to 5.5 likely some degree of GI bleeding related to anticoagulation use. Rule out peptic ulcer disease or vascular malformations. Patient has been transfused 3 units of packed red blood cells genuine IV PPI with a continuous infusion and the patient will undergo upper endoscopy for further evaluation of source of bleeding. Ate of Consult: 12/01/[address] Gutierrez
--- NOTE | 2017-12-01 14:09 | PCM.OP.BLANK ---
Operative Report Date of Procedure: 12/01/17 Preop diagnosis: Patient with melena and anemia on Coumadin Postop diagnosis: EGD with biopsy of gastric mucosa Anesthesia: Via the MAC Instrument: Olympus upper endoscope Informed consent was taken prior to procedure. The patient was brought to the endoscopy suite[ she] was placed left shoulder down. Anesthesia provided the MAC. The scope was passed under direct visualization down into the esophagus. The proximal midesophagus appeared normal the Z line was 38 cm from the incisors no evidence of bleeding. The stomach was easily insufflated there was no blood in the stomach the bulbar duodenum showed a small erosion the second portion of the duodenum was normal. The scope was withdrawn back into the stomach retroflexion was performed a view of the cardia was well seen there was a small hiatal hernia no evidence of gastric varices. A biopsy of the gastric antrum was taken for testing for H. pylori the stomach was decompressed careful examination of the lesser curvature showed no signs of bleeding. The stomach was decompressed, the endoscope was withdrawn and the patient tolerated procedure well. Impression: Melanotic stool on Coumadin no evidence of upper GI bleeding continue to monitor the patient Plan: Patient may have a clear liquid diet she will undergo colonoscopy tomorrow Cc copy Dr. Gutierrez
[2017-12-01 14:47] LABS: Ferritin 3 ng/mL (8-252); Iron 17 ug/dL (50-170); Iron Binding Capacity,Total 515 ug/dL (250-450); PERCENT IRON SATURATION 3.3 % (15.0-55.0)
[2017-12-01] MEDS: Acetaminophen 325 MG Tablet 650 MG PO ×2 (17:13→23:46)
[2017-12-01] MEDS: Enoxaparin 100 MG/ML Syringe SC (17:14)
[2017-12-01] MEDS: Electrolyte Solution/Peg's 4000 ML 2000 ML PO (17:14)
[2017-12-01] MEDS: Metoprolol Tartrate 50 MG Tablet PO (21:58)
[2017-12-01] MEDS: DULoxetine Hcl 60 MG Capsule PO (21:59)
[2017-12-01 22:33] LABS: Hematocrit 28.8 % (37-47); Hemoglobin 8.3 g/dl (12.0-15.0)
[2017-12-02] VITALS (19 sets, daily range): BP systolic 107–166; BP diastolic 40–74; PULSE 60–77; RESP 16–20; TEMP 36.5–37.2; O2SAT 94–97; BMI 43.0
[2017-12-02] MEDS: Electrolyte Solution/Peg's 4000 ML 2000 ML PO (05:53)
[2017-12-02] MEDS: Lactated Ringers 1,000 ML 125 ML IV ×3 (05:54→22:35)
[2017-12-02 06:11] LABS: Anion Gap 9 (5-15); BUN 10 mg/dL (7-18); BUN/Creat Ratio 10.9 RATIO (10-20); Calcium,Total 8.5 mg/dL (8.5-10.1); Chloride 109 mmol/L (98-107); Creatinine, Serum 0.92 mg/dL (0.55-1.02); EST Glomerular Filtration Rate 67 mL/min (>60); Est Glom Filt Rate - Afr Amer 81 mL/min (>60); Estimated Creatinine Clearance 64.03 ml/min; Glucose 134 mg/dL (74-106); Potassium 4.1 mmol/L (3.5-5.1); Sodium Level 143 mmol/L (136-145)
[2017-12-02 06:15] LABS: Absolute Lymphocyte Count 1.85 X10^3/ul (0.83-4.51); Absolute Neutrophil Count 3.4 X10^3/uL (2.0-7.7); Basophil# 0.04 X10^3/uL; Basophil% 0.7 % (0-1); Eosinophil# 0.06 X10^3/uL; Hematocrit 30.9 % (37-47); Hemoglobin 8.9 g/dl (12.0-15.0); Lymphocyte # 1.85 X10^3/ul (4.0); Lymphocyte % 30.8 % (19-41); Mean Corp Hgb Conc 28.8 g/gl (32-36); Mean Corpuscular Hgb 22.1 pg (27.0-32.0); Mean Corpuscular Volume 76.7 fL (81-99); Mean Platelet Vol. 9.9 fl (6.2-12.0); Neutrophil # 3.43 X10^3/uL (2.7-7.7); Neutrophil % 57.2 % (47-70); Platelet Count 256 K/mm3 (150-450); RBC Distribution Width CV 19.2 % (11.6-14.6); RBC Distribution Width SD 53.8 fl (35.1-43.9); Red Blood Count 4.03 M/mm3 (4.2-5.4)
[2017-12-02 06:16] LABS: POSITIVE COUNT NO; POSITIVE DIFFERENTIAL NO; POSITIVE MORPHOLOGY NO
--- NOTE | 2017-12-02 08:02 | PCM.PN.HOSP ---
Patient Problems: Active and Suspected Problems (Last Reviewed 11/24/17 @ 13:16 by Phi Morris) Gastrointestinal bleed (Acute) Subjective: Seen and examined. Patient overall feeling better after blood transfusion. Patient is frequently going for bowel movement after colon prep solution. Hemoglobin improved to 8.9 g percent with 3 units of PRBC transfusion. Scheduled for colonoscopy in afternoon. Vitals/I&O's: Vital Signs Temp Pulse Resp BP Pulse Ox 97.7 F L 66 18 141/67 H 96 12/02/17 03:51 12/02/17 03:51 12/02/17 03:51 12/02/17 03:51 12/02/17 03:51 Oxygen Delivery Method Room Air Weight: 274 lb 14.663 oz Body Mass Index (BMI) 43.2 Intake and Output for Last 24 Hours 11/30/17 12/01/17 12/02/17 23:59 23:59 23:59 Intake Total 475 / 475 3216 / 3216 Output Total 400 / 400 Balance 475 / 475 2816 / 2816 General: Alert, Oriented x3, Cooperative HEENT: Atraumatic, PERRLA, EOMI, Normocephalic Neck: Supple, No JVD, Negative Carotid Bruits Lungs: Clear to auscultation, No wheeze, Diminished Cardiovascular: Regular rate, Regular Rhythm, Normal S1, Normal S2, Murmur - Aortic stenosis murmur Abdomen: Bowel Sounds Present, Soft, Non Tender, Non-Distended Extremities: No edema, Capillary Refill Less than 3 Seconds Skin: No rashes, No breakdown Musculoskeletal: No Tenderness to Palpation of Joints or Extremities Neurological: Cranial nerves II-XII grossly intact Psych/Mental Status: Normal Affect, Appropriate Laboratory Results 12/01/17 22:08: Hgb 8.3 L, Hct 28.8 L 12/02/17 05:25: WBC 6.0, RBC 4.03 L, Hgb 8.9 L, Hct 30.9 L, MCV 76.7 L, MCH 22.1 L, MCHC 28.8 L, RDW 19.2 H, RDW Differential 53.8 H, Plt Count 256, MPV 9.9, Immature Gran % (Auto) 0.300, Neut % (Auto) 57.2, Lymph % (Auto) 30.8, [place] % (Auto) 10.0, Eos % (Auto) 1.0, Baso % (Auto) 0.7, Absolute Neuts (auto) 3.4, Absolute Lymphs (auto) 1.85, Total Counted Not Reportable 12/02/17 05:25: Sodium 143, Potassium 4.1, Chloride 109 H, Carbon Dioxide 25.0, Anion Gap 9, BUN 10, Creatinine 0.92, Estim Creat Clear Calc 64.03, Est GFR (MDRD) Af Amer 81, Est GFR (MDRD) Non-Af 67, BUN/Creatinine Ratio 10.9, Glucose 134 H, Calcium 8.5 Current Medications Acetaminophen (Tylenol) 650 mg PO Q4H PRN PRN PRN Reason: PAIN/Fever T>100.4 F Last Admin: 12/01/17 23:46 Dose: 650 mg Duloxetine HCl (Cymbalta) 60 mg PO BID [facility] Last Admin: 12/01/17 21:59 Dose: 60 mg Sodium Chloride () 250 mls @ 15 mls/hr IV .[id number] PRN PRN Reason: SALINE FLUSH Sodium Chloride () 250 mls @ 15 mls/hr IV .[id number] PRN PRN Reason: SALINE FLUSH Pantoprazole Sodium 40 mg/ (Sodium Chloride) 100 mls @ 300 mls/hr IV Q12 [facility] Last Admin: 12/01/17 22:02 Dose: 300 mls/hr Lactated Ringer's () 1,000 mls @ 125 mls/hr IV .Q8H [facility] Last Admin: 12/02/17 05:54 Dose: 125 mls/hr Iron Sucrose 200 mg/ Sodium (Chloride) 110 mls @ 220 mls/hr IV DAILY [facility] Stop: 12/03/17 10:29 Isosorbide Mononitrate (Imdur) 60 mg PO DAILY [facility] Levothyroxine Sodium (Synthroid) 25 mcg PO DAILY@0600 [facility] Last Admin: 12/02/17 04:55 Dose: Not Given Lisinopril (Zestril) 20 mg PO DAILY [facility] Magnesium Hydroxide (Milk Of Magnesia) 30 ml PO DAILY PRN PRN PRN Reason: Constipation Metoprolol Tartrate (Lopressor (Beta Marlon)) 50 mg PO BID [facility] Last Admin: 12/01/17 21:58 Dose: 50 mg Nitroglycerin (Nitrostat) 0.4 mg SUBLINGUAL .Q5-15M PRN PRN Reason: chest pain Sodium Chloride () 5 - 30 ml IV UD PRN PRN Reason: SALINE FLUSH Medical Necessity - Tobacco Use Smoking Status: Current every day smoker Assessment/Plan Active and Suspected Problems (Last Reviewed 11/24/17 @ 13:16 by Phi Morris) Gastrointestinal bleed (Acute) There is a 57-year-old female with history of coronary artery disease status post 3 stent in 2008, history of a stroke with no residual deficit, bilateral carotid stenosis status post endarterectomy, 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 Patient already stopped Coumadin about a week ago. Patient was diagnosed to have acute blood loss anemia, Hemoglobin 5.7 g percent secondary to upper GI bleed Patient had 3 units of PRBC transfusion, on IV Protonix drip and GI consult. 1. Acute blood loss anemia secondary to upper GI bleed with history of chronic anemia: Patient was being admitted in ICU and then transferred to PCU. Hemodynamic monitoring. I and O's monitoring. IV Protonix drip discontinued and on Protonix 40 mg every 12 hourly.. Patient had 3 units of PRBC transfusion. GI consult Dr. Ortiz noted. Hemoglobin improved from 5.7 g to 8.9 g percent. Iron profile noted and is classical of iron deficiency anemia with low ferritin, low transferrin saturation and high TIBC. IV Venofer 200 mg ordered. EGD done in afternoon shows small erosion in duodenal bulb. Patient had colonoscopy today evidence of lower GI bleed. There is numerous diverticuli and spasm found in sigmoid colon. Diet advanced as per tolerated. Dr. Griffin suggested resume Coumadin and recheck hemoglobin in 2 weeks and patient might need outpatient capsule endoscopy for further evaluation of bleeding. Patient is stable to be transferred to floor. 2. Cardiovascular disease: Coronary artery status post stent, PTCA of RCA and diagonal 9, right lower extremity arterial thrombosis, bilateral carotid stenosis status post endarterectomy: Patient is on isosorbide mononitrate, lisinopril, metoprolol and nitroglycerin as needed at home. Due to history of arterial thrombosis with significant history of atheroembolic disease, started on Coumadin 5 mg daily. INR tomorrow a.m. Avoid NSAIDs and antiplatelet agents. 3. Other chronic comorbidities include hypertension, dyslipidemia, and nicotine use. Home medication reconciliation done. DVT prophylaxis: On bilateral SCDs. Coumadin resumed Laboratory Results Laboratory Results 12/01/17 22:08: Hgb 8.3 L, Hct 28.8 L 12/02/17 05:25: WBC 6.0, RBC 4.03 L, Hgb 8.9 L, Hct 30.9 L, MCV 76.7 L, MCH 22.1 L, MCHC 28.8 L, RDW 19.2 H, RDW Differential 53.8 H, Plt Count 256, MPV 9.9, Immature Gran % (Auto) 0.300, Neut % (Auto) 57.2, Lymph % (Auto) 30.8, [place] % (Auto) 10.0, Eos % (Auto) 1.0, Baso % (Auto) 0.7, Absolute Neuts (auto) 3.4, Absolute Lymphs (auto) 1.85, Total Counted Not Reportable 12/02/17 05:25: Sodium 143, Potassium 4.1, Chloride 109 H, Carbon Dioxide 25.0, Anion Gap 9, BUN 10, Creatinine 0.92, Estim Creat Clear Calc 64.03, Est GFR (MDRD) Af Amer 81, Est GFR (MDRD) Non-Af 67, BUN/Creatinine Ratio 10.9, Glucose 134 H, Calcium 8.5 This note was generated with [employer] dictation software. Every effort was made to ensure accuracy, however computerized director critical care mistakes may persist. Code Visit Inpatient E&M: 45288 Subs Hosp L3
[2017-12-02] MEDS: DULoxetine Hcl 60 MG Capsule PO ×2 (09:47→21:04)
[2017-12-02] MEDS: Lisinopril 20 MG Tablet PO (09:47)
[2017-12-02] MEDS: Metoprolol Tartrate 50 MG Tablet PO ×2 (09:47→21:04)
[2017-12-02] MEDS: Isosorbide Mononitrate 60 MG Tablet PO (09:47)
--- NOTE | 2017-12-02 10:10 | PCM.PROGNOTE ---
Patient Problems: Active and Suspected Problems (Last Reviewed 11/24/17 @ 13:16 by Phi Morris) Gastrointestinal bleed (Acute) Subjective: Patient seen and examined. She is n.p.o. for a colonoscopy at 1230 today. She remains afebrile and hemodynamically stable. Maintaining appropriate saturations on room air. Denies any shortness of breath or cough. She is having frequent stools, however is finishing up her prep for the colonoscopy. She does notice they are very dark. Objective: Recent lab data reviewed. Hemoglobin is stable at 8.9. EGD on 12/01/[address] Foster showed no evidence of upper GI bleed. - Physical Exam General: Alert, Oriented x3, Cooperative, No apparent distress, Well developed, Well nourished, - - no conversational dyspnea HEENT: Atraumatic, Normocephalic Oral: Moist Mucosa, No Gingival or Mucosal Lesions/ Ulcerations Neck: Supple, No Nodes, Trachea Midline Lungs: No rhonchi, No wheeze, No rales, Diminished Cardiovascular: Regular rate, Regular Rhythm, Normal S1, Normal S2, Murmur, No rub noted, No Gallop Abdomen: Soft, Non Tender, Hyperactive Bowel Sounds, Obese Extremities: No clubbing, No cyanosis, No edema Skin: No rashes, No breakdown Musculoskeletal: No Tenderness to Palpation of Joints or Extremities Lymphatic: No Cervical, Supraclavicular, or Inguinal Adenopathy Neurological: Neuro grossly intact Psych/Mental Status: Alert and oriented to time, place, person, mood and affect Vital Signs Temp Pulse Resp BP Pulse Ox 98.8 F 60 18 166/73 H 95 12/02/17 09:48 12/02/17 09:48 12/02/17 09:48 12/02/17 09:48 12/02/17 09:48 Oxygen Delivery Method Room Air Weight: 274 lb 14.663 oz Body Mass Index (BMI) 43.2 Intake and Output for Last 24 Hours 11/30/17 12/01/17 12/02/17 23:59 23:59 23:59 Intake Total 475 / 475 3216 / 3216 Output Total 400 / 400 Balance 475 / 475 2816 / 2816 Laboratory Tests Past 24 Hrs 12/01/17 12/02/17 12/02/17 22:08 05:25 05:25 WBC 6.0 RBC 4.03 L Hgb 8.3 L 8.9 L Hct 28.8 L 30.9 L MCV 76.7 L MCH 22.1 L MCHC 28.8 L RDW 19.2 H RDW Differential 53.8 H Plt Count 256 MPV 9.9 Immature Gran % (Auto) 0.300 Neut % (Auto) 57.2 Lymph % (Auto) 30.8 [place] % (Auto) 10.0 Eos % (Auto) 1.0 Baso % (Auto) 0.7 Absolute Neuts (auto) 3.4 Absolute Lymphs (auto) 1.85 Total Counted Not Reportable Sodium 143 Potassium 4.1 Chloride 109 H Carbon Dioxide 25.0 Anion Gap 9 BUN 10 Creatinine 0.92 Estim Creat Clear Calc 64.03 Est GFR (MDRD) Af Amer 81 Est GFR (MDRD) Non-Af 67 BUN/Creatinine Ratio 10.9 Glucose 134 H Calcium 8.5 Medical Necessity - Tobacco Use Smoking Status: Current every day smoker Assessment/Plan Active and Suspected Problems (Last Reviewed 11/24/17 @ 13:16 by Phi Morris) Gastrointestinal bleed (Acute) RECOMMENDATIONS: 1. Transition to PPI orally twice daily 2. Monitor blood counts. Transfuse for a hemoglobin greater than 8 g/dL 3. Plan for colonoscopy today by gastroenterology at 1230 4. Okay to continue supplemental IV fluids for now, IV venofer 5. Encourage incentive spirometer use while in bed and mobilize patient as tolerated. IMPRESSIONS: 1. Acute blood loss anemia in the setting of chronic anticoagulation /chronic iron deficiency anemia Patient has been transfused 3 units of packed red blood cells to date. Blood counts incremented appropriately and now stable. Plan to check CBC daily. Transfuse to maintain hemoglobin at or above 8 g/dL. Plans for colonoscopy today by gastroenterology. Transition to twice daily oral PPI today. Hold Coumadin accordingly. Okay to continue supplemental IV fluids for now. Patient receiving IV Venofer. 2. Coronary artery disease status post PTCA in 2008 Continue home cardiac medication regimen. 3. Hypertension/obesity/GERD/hyperlipidemia/hypothyroidism Complicates care, management, recovery and prognosis. Okay to continue home medications from my perspective. This note was generated with [employer] software. It may contain incorrect words, spelling, and punctuation that were not noted in checking the note before signing.
--- NOTE | 2017-12-02 13:01 | PCM.OP.BLANK ---
Operative Report Date of Procedure: 12/02/17 Preop diagnosis: [Patient with GI bleeding and iron deficiency anemia] Postop diagnosis: Colonoscopy to the cecum no evidence of lower GI blood loss] Anesthesia:[Provided the MAC] Instrument:[Olympus adjustable pediatric colonoscope] Informed consent was taken prior to procedure. The patient was brought to the endoscopy suite and placed in the left shoulder down. Anesthesia provided the MAC. Rectal exam was performed prior to inserting the scope. The colonoscope was passed into the rectum the rectal mucosa was normal. Moving up the left colon there were numerous diverticuli and spasm in the sigmoid area glucagon 1 mg IV was given. After several minutes the scope was readvanced up towards the splenic flexure the mucosa was normal across the transverse colon there were no large polyps seen. Down the right colon the cecum was well-visualized there is some liquid this was sucked up into the colonoscope were no large polyps no evidence of any vascular malformations in the right colon. The scope was withdrawn from the right colon there were no large polyps seen back across the transverse colon mucosa remain normal. Below the splenic flexure there was diverticulosis and myochosis throughout the left colon retroflexion performed the rectum showed internal hemorrhoids the colon decompressed and the patient tolerated procedure well. Impression: Iron deficiency anemia with GI bleeding the patient is maintained on Coumadin no evidence of lower GI blood loss Plan: May resume the Coumadin recheck hemoglobin hematocrit in 2 weeks patient will need an outpatient capsule endoscopy for further evaluation of her bleeding. CC Dr. Gutierrez
[2017-12-03] VITALS (8 sets, daily range): BP systolic 133–147; BP diastolic 70–81; PULSE 56–74; RESP 16–20; TEMP 36.8–37.1; O2SAT 93–98
[2017-12-03] MEDS: Levothyroxine 25 MCG TABLET PO (05:17)
[2017-12-03] MEDS: Acetaminophen 325 MG Tablet 650 MG PO (05:20)
[2017-12-03] MEDS: Lactated Ringers 1,000 ML 125 ML IV ×2 (05:23→13:33)
[2017-12-03 06:25] LABS: Anion Gap 8 (5-15); BUN 8 mg/dL (7-18); BUN/Creat Ratio 10.6 RATIO (10-20); Calcium,Total 8.5 mg/dL (8.5-10.1); Chloride 108 mmol/L (98-107); Creatinine, Serum 0.75 mg/dL (0.55-1.02); EST Glomerular Filtration Rate 84 mL/min (>60); Est Glom Filt Rate - Afr Amer 101 mL/min (>60); Estimated Creatinine Clearance 78.54 ml/min; Glucose 98 mg/dL (74-106); Potassium 3.9 mmol/L (3.5-5.1); Sodium Level 142 mmol/L (136-145)
[2017-12-03 06:33] LABS: Absolute Lymphocyte Count 2.04 X10^3/ul (0.83-4.51); Absolute Neutrophil Count 2.9 X10^3/uL (2.0-7.7); Basophil# 0.04 X10^3/uL; Basophil% 0.7 % (0-1); Eosinophil# 0.08 X10^3/uL; Eosinophils% 1.4 % (0-5); Hematocrit 26.7 % (37-47); Hemoglobin 7.6 g/dl (12.0-15.0); Lymphocyte # 2.04 X10^3/ul (4.0); Lymphocyte % 35.9 % (19-41); Mean Corp Hgb Conc 28.5 g/gl (32-36); Mean Corpuscular Volume 77.2 fL (81-99); Mean Platelet Vol. 9.9 fl (6.2-12.0); Monocyte% 10.5 % (0-10); Neutrophil # 2.92 X10^3/uL (2.7-7.7); Neutrophil % 51.3 % (47-70); Platelet Count 227 K/mm3 (150-450); RBC Distribution Width SD 56.4 fl (35.1-43.9); Red Blood Count 3.46 M/mm3 (4.2-5.4); White Blood Count 5.7 K/mm3 (4.4-11.0)
[2017-12-03 06:34] LABS: International Normalized Ratio 1.1
[2017-12-03 06:39] LABS: POSITIVE COUNT NO; POSITIVE DIFFERENTIAL NO; POSITIVE MORPHOLOGY NO
[2017-12-03] MEDS: DULoxetine Hcl 60 MG Capsule PO (09:08)
[2017-12-03] MEDS: Metoprolol Tartrate 50 MG Tablet PO (09:08)
[2017-12-03] MEDS: Lisinopril 20 MG Tablet PO (09:08)
[2017-12-03] MEDS: Isosorbide Mononitrate 60 MG Tablet PO (09:08)
[2017-12-03 14:36] LABS: Hematocrit 26.8 % (37-47); Hemoglobin 7.7 g/dl (12.0-15.0)
--- NOTE | 2017-12-03 15:15 | PCM.DC ---
- Discharge Diagnoses Current Active Problems: Current Active and Chronic Problems (Last Reviewed 11/24/17 @ 13:16 by Phi Morris) Gastrointestinal bleed (Acute) Reason(s) for Visit for Discharge Instructions: GI bleed You will use the following diet at home:: Cardiac Your food should be the consistency of: Regular Your liquids should be the consistency of: Regular/Thin Discharge Activity: Return to Normal Activity Call your doctor if you observe: - - Dark stool / blood in stool, nausea, vomiting. Pending Tests on Discharge: CBC to be done in 4 to 5 days. Follow up result with Dr. Gutierrez. Allergies/Adverse Reactions: Allergies bupropion [From Wellbutrin] Allergy (Verified 11/30/17 18:17) Rash Kpupekb-Stl-Uci Reductase Inhibitor Allergy (Verified 11/30/17 18:17) Other UNABLE TO WALK codeine Adverse Reaction (Verified 11/30/17 18:17) Other PT REPORTS GOING TO SLEEP AND HAS HARD TIME WAKING UP Medications to take at Discharge duloxetine 60 mg capsule,delayed release 60 mg PO BID cap 07/27/17 lisinopril 20 mg tablet 20 mg PO QDAY 07/27/17 isosorbide mononitrate ER 60 mg tablet,extended release 24 hr 60 mg PO DAILY #90 tab 10/14/17 nitroglycerin 0.4 mg sublingual tablet 0.4 mg SUBLINGUAL Q5-15M PRN #25 tab 10/14/17 polysaccharide iron complex 150 mg iron capsule 150 mg PO QDAY cap 11/13/17 rosuvastatin 10 mg tablet 20 mg PO QHS tab 11/23/17 Levothyroxine [Synthroid] 25 mcg PO DAILY 11/30/17 Metoprolol Tartrate [Lopressor (beta linn)] 50 mg PO BID 12/01/17 Omeprazole 40 mg PO BID #60 capsule. 12/03/17 Warfarin [Coumadin] 8.5 mg PO DAILY@1700 tablet 12/03/17 The following prescriptions were given: Omeprazole 40 mg PO BID #60 capsule. Primary Care Physician: Martin Gutierrez Chi, MD [Primary Care Provider] - Please follow up with your Primary Care Physician in: in 5 to 7 days. Please Follow Up With: Tye Foster MD When: 2 to 3 weeks
--- NOTE | 2017-12-03 15:20 | DCINST_ITS ---
- Discharge Diagnoses Current Active Problems: Current Active and Chronic Problems (Last Reviewed 11/24/17 @ 13:16 by Phi Morris) Gastrointestinal bleed (Acute) Reason(s) for Visit for Discharge Instructions: GI bleed You will use the following diet at home:: Cardiac Your food should be the consistency of: Regular Your liquids should be the consistency of: Regular/Thin Discharge Activity: Return to Normal Activity Call your doctor if you observe: - - Dark stool / blood in stool, nausea, vomiting. Pending Tests on Discharge: CBC to be done in 4 to 5 days. Follow up result with Dr. Gutierrez. Allergies/Adverse Reactions: Allergies bupropion [From Wellbutrin] Allergy (Verified 11/30/17 18:17) Rash Ufixdyp-Gub-Mhk Reductase Inhibitor Allergy (Verified 11/30/17 18:17) Other UNABLE TO WALK codeine Adverse Reaction (Verified 11/30/17 18:17) Other PT REPORTS GOING TO SLEEP AND HAS HARD TIME WAKING UP Medications to take at Discharge duloxetine 60 mg capsule,delayed release 60 mg PO BID cap 07/27/17 lisinopril 20 mg tablet 20 mg PO QDAY 07/27/17 isosorbide mononitrate ER 60 mg tablet,extended release 24 hr 60 mg PO DAILY # 90 tab 10/14/17 nitroglycerin 0.4 mg sublingual tablet 0.4 mg SUBLINGUAL Q5-15M PRN #25 tab polysaccharide iron complex 150 mg iron capsule 150 mg PO QDAY cap 11/13/17 rosuvastatin 10 mg tablet 20 mg PO QHS tab 11/23/17 Levothyroxine [Synthroid] 25 mcg PO DAILY 11/30/17 Metoprolol Tartrate [Lopressor (beta linn)] 50 mg PO BID 12/01/17 Omeprazole 40 mg PO BID #60 capsule. 12/03/17 Warfarin [Coumadin] 8.5 mg PO DAILY@1700 tablet 12/03/17 The following prescriptions were given: Omeprazole 40 mg PO BID #60 capsule. Primary Care Physician: Martin Gutierrez Chi, MD [Primary Care Provider] - Please follow up with your Primary Care Physician in: in 5 to 7 days. Please Follow Up With: Tye Foster MD When: 2 to 3 weeks
--- NOTE | 2017-12-03 15:20 | PCM.DC.SUM ---
Discharge Date and Diagnosis - Problem List Patient Problems: Active and Suspected Problems (Last Reviewed 11/24/17 @ 13:16 by Phi Morris) Gastrointestinal bleed (Acute) Date of Admission: 11/30/17 Date of Discharge: 12/03/17 - Primary Discharge Diagnosis Active and Suspected Problems (Last Reviewed 11/24/17 @ 13:16 by Phi Morris) Gastrointestinal bleed (Acute) - Secondary Discharge Diagnosis Chronic Problems (Last Reviewed 11/24/17 @ 13:16 by Phi Morris) Nicotine abuse (Chronic) Atherosclerotic heart disease of [place] coronary artery without angina pectoris (Chronic) PTCA of RA & diagonal with intracoronary stent November 2008 Presence of stent in coronary artery (Chronic) Other snf (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 (Chronic) CAD (coronary artery disease) (Chronic) Hypertension (Chronic) Hyperlipidemia (Chronic) Dysarthria (Chronic) Expressive language disorder (Chronic) Hospital Course and Treatment 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 Foster, GI. Operations: None Procedures: Colonoscopy, EGD Summary of Care Provided: Patient is a 57 years old female who was admitted on 12/30/17 severe anemia of Hgb 5.7. She has history of iron deficiency anemia, had been on iron supplement. She was having profound fatigue, found to have severe anemia. She had one black stool prior to admission. She was admitted to ICU, received 3 units of PRBC, along with treatment with IV pantoprazole drip. She underwent EGD, then colonoscopy, which were unremarkable. Diet was advanced, she tolerated well. She did not have any more melena or hematochezia, denied of any abdominal pain, or nausea and vomiting. Her Hgb was 7.6 on the following day, significant drop from 8.9, although she was completely asymptomatic and she did not have any more bowel movements. Hgb was repeated which was 7.7. Plan to discharge home with repeat CBC in 4 to 5 days. Transaction was made and follow-up results with Dr. Gutierrez. 1. Acute blood loss anemia secondary to upper GI bleed with history of chronic anemia: She was admitted to ICU initially. 3 units PRBC, along with pantoprazole drip, later changed to 40 mg IV Q12H. Hgb remained stable until the day of discharge, although there is no evidence of active bleeding. Repeated Hgb 7.7 (from 7.6). Iron profile noted and is classical of iron deficiency anemia with low ferritin, low transferrin saturation and high TIBC. She received Veofer 200 mg IV, tolerated well. EGD and colonoscopy were done with no significant finding. Plan to follow up with Dr. Foster as outpatient for capsule endoscopy. Follow up with Dr. Gutierrez. Resume Coumadin, which was for embolic thrombosis of lower extremity in 06/2017. She reports that she was on 8.5 mg a day prior to admission. Resume home dosage and follow up with Dr. Gutierrez. 2. Cardiovascular disease: Coronary artery status post stent, PTCA of RCA and diagonal 9, right lower extremity arterial thrombosis, bilateral carotid stenosis status post endarterectomy: Patient is on isosorbide mononitrate, lisinopril, metoprolol and nitroglycerin as needed at home. Due to history of arterial thrombosis with significant history of atheroembolic disease, started on Coumadin 5 mg daily. INR tomorrow a.m. Avoid NSAIDs and antiplatelet agents. 3. Other chronic comorbidities include hypertension, dyslipidemia, and nicotine use. Discharge Diet: - - Cardiac. Discharge Activity: Return to Normal Activity Call your doctor if you observe: - - Dark stool / blood in stool, nausea, vomiting. Home Medications: Medications to take at Discharge duloxetine 60 mg capsule,delayed release 60 mg PO BID cap 07/27/17 lisinopril 20 mg tablet 20 mg PO QDAY 07/27/17 isosorbide mononitrate ER 60 mg tablet,extended release 24 hr 60 mg PO DAILY #90 tab 10/14/17 nitroglycerin 0.4 mg sublingual tablet 0.4 mg SUBLINGUAL Q5-15M PRN #25 tab 10/14/17 polysaccharide iron complex 150 mg iron capsule 150 mg PO QDAY cap 11/13/17 rosuvastatin 10 mg tablet 20 mg PO QHS tab 11/23/17 Levothyroxine [Synthroid] 25 mcg PO DAILY 11/30/17 Metoprolol Tartrate [Lopressor (beta linn)] 50 mg PO BID 12/01/17 Omeprazole 40 mg PO BID #60 capsule. 12/03/17 Warfarin [Coumadin] 8.5 mg PO DAILY@1700 tablet 12/03/17 Following Prescrptions Were Given to Patient: Omeprazole 40 mg PO BID #60 capsule. Primary Care Physician: Martin Gutierrez Chi, MD [Primary Care Provider] - Please follow up with your Primary Care Physician in: in 5 to 7 days. Please Follow Up With: Tye Foster MD When: 2 to 3 weeks Disposition: Home Patient Condition:: Good Medical Necessity - Tobacco Use Smoking Status: Current every day smoker Meaningful Use Info Meaningful Use Diagnoses (Choose all that apply): None applicable Code Visit Inpatient E&M: 58641 Disch Hosp
--- NOTE | 2017-12-03 15:34 | DS.PCM_ITS ---
Discharge Date and Diagnosis - Problem List Patient Problems: Active and Suspected Problems (Last Reviewed 11/24/17 @ 13:16 by Phi Morris) Gastrointestinal bleed (Acute) Date of Admission: 11/30/17 Date of Discharge: 12/03/17 - Primary Discharge Diagnosis Active and Suspected Problems (Last Reviewed 11/24/17 @ 13:16 by Pih Morris) Gastrointestinal bleed (Acute) - Secondary Discharge Diagnosis Chronic Problems (Last Reviewed 11/24/17 @ 13:16 by Phi Morris) Nicotine abuse (Chronic) Atherosclerotic heart disease of [place] coronary artery without angina pectoris (Chronic) PTCA of RA & diagonal with intracoronary stent November 2008 Presence of stent in coronary artery (Chronic) Other long-term (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 (Chronic) CAD (coronary artery disease) (Chronic) Hypertension (Chronic) Hyperlipidemia (Chronic) Dysarthria (Chronic) Expressive language disorder (Chronic) Hospital Course and Treatment [employer] CONSULTANT: Dr. Foster, GI. Operations: None Procedures: Colonoscopy, EGD Summary of Care Provided: Patient is a 57 years old female who was admitted on 12/30/17 severe anemia of Hgb 5.7. She has history of iron deficiency anemia, had been on iron supplement. She was having profound fatigue, found to have severe anemia. She had one black stool prior to admission. She was admitted to ICU, received 3 units of PRBC, along with treatment with IV pantoprazole drip. She underwent EGD, then colonoscopy, which were unremarkable. Diet was advanced, she tolerated well. She did not have any more melena or hematochezia, denied of any abdominal pain, or nausea and vomiting. Her Hgb was 7.6 on the following day, significant drop from 8.9, although she was completely asymptomatic and she did not have any more bowel movements. Hgb was repeated which was 7.7. Plan to discharge home with repeat CBC in 4 to 5 days. Transaction was made and follow-up results with Dr. Gutierrez. 1. Acute blood loss anemia secondary to upper GI bleed with history of chronic anemia: She was admitted to ICU initially. 3 units PRBC, along with pantoprazole drip, later changed to 40 mg IV Q12H. Hgb remained stable until the day of discharge, although there is no evidence of active bleeding. Repeated Hgb 7.7 (from 7.6). Iron profile noted and is classical of iron deficiency anemia with low ferritin , low transferrin saturation and high TIBC. She received Veofer 200 mg IV, tolerated well. EGD and colonoscopy were done with no significant finding. Plan to follow up with Dr. Foster as outpatient for capsule endoscopy. Follow up with Dr. Gutierrez. 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 She reports that she was on 8.5 mg a day prior to admission. Resume home dosage and follow up with Dr. Gutierrez. 2. Cardiovascular disease: Coronary artery status post stent, PTCA of RCA and diagonal 9, right lower extremity arterial thrombosis, bilateral carotid stenosis status post endarterectomy: Patient is on isosorbide mononitrate, lisinopril, metoprolol and nitroglycerin as needed at home. Due to history of arterial thrombosis with significant history of atheroembolic disease, started on Coumadin 5 mg daily. INR tomorrow a.m. Avoid NSAIDs and antiplatelet agents. 3. Other chronic comorbidities include hypertension, dyslipidemia, and nicotine use. Discharge Diet: - - Cardiac. Discharge Activity: Return to Normal Activity Call your doctor if you observe: - - Dark stool / blood in stool, nausea, vomiting. Home Medications: Medications to take at Discharge duloxetine 60 mg capsule,delayed release 60 mg PO BID cap 07/27/17 lisinopril 20 mg tablet 20 mg PO QDAY 07/27/17 isosorbide mononitrate ER 60 mg tablet,extended release 24 hr 60 mg PO DAILY # 90 tab 10/14/17 nitroglycerin 0.4 mg sublingual tablet 0.4 mg SUBLINGUAL Q5-15M PRN #25 tab polysaccharide iron complex 150 mg iron capsule 150 mg PO QDAY cap 11/13/17 rosuvastatin 10 mg tablet 20 mg PO QHS tab 11/23/17 Levothyroxine [Synthroid] 25 mcg PO DAILY 11/30/17 Metoprolol Tartrate [Lopressor (beta linn)] 50 mg PO BID 12/01/17 Omeprazole 40 mg PO BID #60 capsule. 12/03/17 Warfarin [Coumadin] 8.5 mg PO DAILY@1700 tablet 12/03/17 Following Prescrptions Were Given to Patient: Omeprazole 40 mg PO BID #60 capsule. Primary Care Physician: Martin Gutierrez Chi, MD [Primary Care Provider] - Please follow up with your Primary Care Physician in: in 5 to 7 days. Please Follow Up With: Tye Foster MD When: 2 to 3 weeks Disposition: Home Patient Condition:: Good Medical Necessity - Tobacco Use Smoking Status: Current every day smoker Meaningful Use Info Meaningful Use Diagnoses (Choose all that apply): None applicable Code Visit Inpatient E&M: 61631 Disch Hosp
--- NOTE | 2017-12-04 15:57 | CASEMGMT ---
[facility] DISCHARGE F/U PHONE CALL LACE: 12 STRATA: 4 CALL DATE: 12/04/17 DISCHARGE DATE: 12/03/17 TIME OF CALL: [id number] DURATION: 4MINUTES ADM DX: ANEMIA, GI BLEED PT STATES SHE HAS BEEN DOING 'OK' SINCE DISCHARGE YESTERDAY. PT STATES NO QUESTIONS REGARDING D/C INSTRUCTIONS OR MEDICATIONS AT THIS TIME. PT STATES SHE HAS THE DATES/TIMES OF F/U PHONE CALLS AND PLANS ON FOLLOWING UP AT THOSE SCHEDULED TIMES. PT STATES NO CONCERNS/SUGGESTIONS FROM ADMISSION AND STATES THAT 'EVERYONE WAS REALLY NICE.' PT STATES NO FURTHER QUESTIONS/CONCERNS/NEEDS AT THIS TIME. PT PROVIDED WITH THIS RN BRIAN'S CONTACT INFO FOR ANY FURTHER CONCERNS/NEEDS, VOICES UNDERSTANDING. PT THANKS THIS RN BRIAN FOR CALL. STACY HAUSER CM
== END 2017-12-03 16:57 | disposition home or self-care (01) | DRG 378 ==
LOC: ED 18:55 → ICU 21:44 → PCU 12-02 07:30
PROVIDERS: Internal Medicine; Internal Medicine Gastroenterology; Admitting Provider Family Medicine; Emergency Provider Emergency Medicine; Family Provider Family Medicine Geriatric Medicine; PCP Family Medicine Geriatric Medicine; Visit Provider Hospitalist
PROC: 0DJ08ZZ Inspection of Upper Intestinal Tract, Via Natural or Artificial Opening Endoscopic (ICD-10-PCS; CPT 43235; principal; 2017-12-01 13:05)
PROC: 0DJD8ZZ Inspection of Lower Intestinal Tract, Via Natural or Artificial Opening Endoscopic (ICD-10-PCS; CPT 45378; principal; 2017-12-02 12:40)
DX: K92.1 Melena (principal); D62 Acute posthemorrhagic anemia; Z68.41 Body mass index [BMI] 40.0-44.9, adult; Z86.73 Personal history of transient ischemic attack (TIA), and cerebral infarction without residual deficits; Z86.79 Personal history of other diseases of the circulatory system; I25.10 Atherosclerotic heart disease of native coronary artery without angina pectoris; E03.9 Hypothyroidism, unspecified; F17.210 Nicotine dependence, cigarettes, uncomplicated; Z95.5 Presence of coronary angioplasty implant and graft; I10 Essential (primary) hypertension; E78.5 Hyperlipidemia, unspecified; Z79.01 Long term (current) use of anticoagulants; Z79.899 Other long term (current) drug therapy; Z79.02 Long term (current) use of antithrombotics/antiplatelets; D50.9 Iron deficiency anemia, unspecified; G47.33 Obstructive sleep apnea (adult) (pediatric); E66.9 Obesity, unspecified; K44.9 Diaphragmatic hernia without obstruction or gangrene; K31.89 Other diseases of stomach and duodenum; K64.8 Other hemorrhoids; K57.30 Diverticulosis of large intestine without perforation or abscess without bleeding
CPT/HCPCS: 36415; 80048; 80053; 81001; 82728; 83540; 83550; 85014; 85018; 85025; 85027; 85610; 85730; 86850; 86900; 86920; 86922; 87641; 93005; 97802; 99283; 99406; J1756; J7030; J7120; P9016; A4216; J1610; J3490

== ENCOUNTER → 2017-12-07 14:32 | Outpatient (CLI) | payer SELFPAY ==
[2017-12-07 17:07] LABS: Iron 26 ug/dL (50-170); Iron Binding Capacity,Total 421 ug/dL (250-450)
[2017-12-07 20:48] LABS: Absolute Lymphocyte Count 2.19 X10^3/ul (0.83-4.51); Absolute Neutrophil Count 4.7 X10^3/uL (2.0-7.7); Basophil# 0.06 X10^3/uL; Basophil% 0.7 % (0-1); Eosinophil# 0.11 X10^3/uL; Eosinophils% 1.4 % (0-5); Hematocrit 32.2 % (37-47); Hemoglobin 9.2 g/dl (12.0-15.0); Lymphocyte # 2.19 X10^3/ul (4.0); Lymphocyte % 27.3 % (19-41); Mean Corp Hgb Conc 28.6 g/gl (32-36); Mean Corpuscular Hgb 23.8 pg (27.0-32.0); Mean Corpuscular Volume 83.2 fL (81-99); Mean Platelet Vol. 11.5 fl (6.2-12.0); Monocyte# 0.95 X10^3/uL; Monocyte% 11.8 % (0-10); Neutrophil # 4.67 X10^3/uL (2.7-7.7); Neutrophil % 58.3 % (47-70); Platelet Count 236 K/mm3 (150-450); RBC Distribution Width CV 24.7 % (11.6-14.6); RBC Distribution Width SD 60.1 fl (35.1-43.9); Red Blood Count 3.87 M/mm3 (4.2-5.4)
[2017-12-07 20:49] LABS: Differential Indicated SCAN CRITERIA MET; POSITIVE COUNT NO; POSITIVE DIFFERENTIAL NO; POSITIVE MORPHOLOGY YES
[2017-12-07 22:47] LABS: Anisocytosis 2+; Hypochromasia 1+; Platelet Estimate ADEQUATE (ADEQ); Polychromasia RARE
[2017-12-07 22:48] LABS: Macrocytosis 1+; Microcytosis 2+
== END ==
PROVIDERS: Family Provider Family Medicine Geriatric Medicine; PCP Family Medicine Geriatric Medicine; Visit Provider Family Medicine Geriatric Medicine
DX: D64.9 Anemia, unspecified (principal)
CPT/HCPCS: 36415; 83540; 83550; 85025

== ENCOUNTER 2018-01-04 19:55 | Observation (INO) | payer OTHER, SELFPAY ==
[2018-01-04 19:56] VITALS: BP 94/63; PULSE 65; RESP 18; TEMP 36.5; O2SAT 94; BMI 43.1
--- NOTE | 2018-01-04 20:21 | EKG12_ITS ---
Test Reason : N/V Blood Pressure : / mmHG Vent. Rate : 063 BPM Atrial Rate : 063 BPM P-R Int : 168 ms QRS Dur : 106 ms QT Int : 452 ms P-R-T Axes : 063 059 045 degrees QTc Int : 462 ms Normal sinus rhythm Normal ECG Confirmed by LAUREN FAROOQ, HEMAL ([id number]), department editor MANJIT PINEDA ([id number] on 01/08/2018 2:52:03 PM Referred By: Martin Gutierrez Confirmed By:HEMAL AGUILAR MD
[2018-01-04] MEDS: 0.9% Normal Saline 1,000 ML 1000 ML IV (20:28)
[2018-01-04 20:56] VITALS: BP 100/56; PULSE 64; RESP 19; O2SAT 98
[2018-01-04 20:58] LABS: Absolute Lymphocyte Count 1.55 X10^3/ul (0.83-4.51); Absolute Neutrophil Count 2.7 X10^3/uL (2.0-7.7); Basophil# 0.02 X10^3/uL; Basophil% 0.4 % (0-1); Eosinophil# 0.01 X10^3/uL; Eosinophils% 0.2 % (0-5); Hematocrit 42.3 % (37-47); Hemoglobin 12.7 g/dl (12.0-15.0); Lymphocyte # 1.55 X10^3/ul (4.0); Lymphocyte % 30.8 % (19-41); Mean Corpuscular Hgb 26.2 pg (27.0-32.0); Mean Corpuscular Volume 87.4 fL (81-99); Mean Platelet Vol. 9.9 fl (6.2-12.0); Monocyte# 0.77 X10^3/uL; Monocyte% 15.3 % (0-10); Neutrophil # 2.67 X10^3/uL (2.7-7.7); Neutrophil % 53.1 % (47-70); Platelet Count 257 K/mm3 (150-450); RBC Distribution Width CV 27.8 % (11.6-14.6); RBC Distribution Width SD 88.8 fl (35.1-43.9); Red Blood Count 4.84 M/mm3 (4.2-5.4)
[2018-01-04 20:59] LABS: Differential Indicated SCAN CRITERIA MET; POSITIVE COUNT NO; POSITIVE DIFFERENTIAL NO; POSITIVE MORPHOLOGY YES
[2018-01-04 21:00] LABS: International Normalized Ratio 1.3; Prothrombin Time (Protime)PT. 16.2 SECONDS (11.7-14.9)
[2018-01-04 21:01] LABS: Partial Thromboplast Time 45.8 Seconds (24.1-36.2)
[2018-01-04 21:11] LABS: Anion Gap 9 (5-15); BUN 17 mg/dL (7-18); BUN/Creat Ratio 9.6 RATIO (10-20); Calcium,Total 8.6 mg/dL (8.5-10.1); Chloride 103 mmol/L (98-107); Creatinine, Serum 1.77 mg/dL (0.55-1.02); EST Glomerular Filtration Rate 31 mL/min (>60); Est Glom Filt Rate - Afr Amer 38 mL/min (>60); Estimated Creatinine Clearance 32.04 ml/min; Glucose 147 mg/dL (74-106); Potassium 3.3 mmol/L (3.5-5.1); Sodium Level 137 mmol/L (136-145)
[2018-01-04 21:13] VITALS: BP 104/57; PULSE 70; RESP 18; O2SAT 96
[2018-01-04 21:23] LABS: Anisocytosis RARE; Macrocytosis RARE; Platelet Estimate ADEQUATE (ADEQ)
[2018-01-04 21:33] LABS: Lactic Acid 1.5 mmol/L (0.4-2.0)
--- NOTE | 2018-01-04 21:56 | ED.VISSUMM ---
- ER Visit Summary Date of Service: 01/04/18 Chief Complaint: Nausea and vomiting that started Thursday with brown/coffee-ground emesis History of Present Illness: The patient is a 57 F presents with nausea vomiting started Thursday. She has vomited several times. She does give complaint of lightheadedness. She states her blood pressures normally elevated. She did report brown liquid emesis with possible coffee grounds. She has dark green stool secondary to iron. She denies fever, chills night sweats. She denies any anginal symptoms. Denies dyspnea on exertion, orthopnea, PND. She does complain of epigastric discomfort. She denies any urologic symptoms. She denies myalgias arthralgias. Physical Examination: Vital signs remarkable for blood pressure of 94/63. Vital signs otherwise unremarkable. She has normal color to the conjunctive and skin. Mucosa is dry. Heart is regular without murmur, gallop or rub. Lungs are clear to auscultation. Abdomen is marked for epigastric discomfort. Neuro exam is nonfocal. Please read written note for complete detail Test Results: H&H is 12.7 and 42.3. Creatinine is 1.77 with a GFR of 31. Lactate is normal 1.5. Orogastric tube was placed. There was bile with no evidence of bleeding. Emergency Department Course and Treatment: OG was placed because patient describes brown emesis/coffee grounds with recent history of GI bleed. Since she is hypotensive she received IV fluids. Appropriate blood work was obtained. Suspect Siri-Shipley tear since OG is presently negative. Treatment Plan: IV fluids and admission to the hospital Disposition: Admit Impression: 1. Hypotension fluid responsive 2. Nausea and vomiting with severe dehydration 3. Acute kidney injury secondary #2 4. History of coronary disease 5. History of hypertension 6. History of hypercholesterolemia This note was generated with [employer] dictation software. It may contain incorrect words, spelling, and punctuation that were not noted in review of the chart prior to signing ED Disposition - Plan for ED Patient: Chief Complaint: General Illness Referrals: Martin Gutierrez Chi, MD [Primary Care Provider] -
[2018-01-04 22:00] VITALS: BP 97/58; PULSE 68; RESP 15; O2SAT 95
--- NOTE | 2018-01-04 22:03 | ED.DCSUM_ITS ---
- ER Visit Summary Date of Service: 01/04/18 Chief Complaint: Nausea and vomiting that started Thursday with brown/coffee- ground emesis History of Present Illness: The patient is a 57 F presents with nausea vomiting started Thursday. She has vomited several times. She does give complaint of lightheadedness. She states her blood pressures normally elevated. She did report brown liquid emesis with possible coffee grounds. She has dark green stool secondary to iron. She denies fever, chills night sweats. She denies any anginal symptoms. Denies dyspnea on exertion, orthopnea, PND. She does complain of epigastric discomfort. She denies any urologic symptoms. She denies myalgias arthralgias. Physical Examination: Vital signs remarkable for blood pressure of 94/63. Vital signs otherwise unremarkable. She has normal color to the conjunctive and skin. Mucosa is dry. Heart is regular without murmur, gallop or rub. Lungs are clear to auscultation. Abdomen is marked for epigastric discomfort. Neuro exam is nonfocal. Please read written note for complete detail Test Results: H&H is 12.7 and 42.3. Creatinine is 1.77 with a GFR of 31. Lactate is normal 1.5. Orogastric tube was placed. There was bile with no evidence of bleeding. Emergency Department Course and Treatment: OG was placed because patient describes brown emesis/coffee grounds with recent history of GI bleed. Since she is hypotensive she received IV fluids. Appropriate blood work was obtained. Suspect Siri-Shipley tear since OG is presently negative. Treatment Plan: IV fluids and admission to the hospital Disposition: Admit Impression: 1. Hypotension fluid responsive 2. Nausea and vomiting with severe dehydration 3. Acute kidney injury secondary #2 4. History of coronary disease 5. History of hypertension 6. History of hypercholesterolemia This note was generated with [employer] dictation software. It may contain incorrect words, spelling, and punctuation that were not noted in review of the chart prior to signing ED Disposition - Plan for ED Patient: Chief Complaint: General Illness Referrals: Martin Gutierrez Chi, MD [Primary Care Provider] -
--- NOTE | 2018-01-04 22:06 | PCM.HP.STD ---
Problem List (1) Nausea & vomiting Status: Acute Qualifiers: Vomiting Intractability: unspecified (2) Diarrhea Status: Acute Qualifiers: Diarrhea type: unspecified type Qualified Code(s): R19.7 - Diarrhea, unspecified (3) Presence of stent in coronary artery Status: Chronic (4) Atherosclerotic heart disease of [place] coronary artery without angina pectoris Status: Chronic Qualifiers: Comment: PTCA of RA & diagonal with intracoronary stent November 2008 (5) Nicotine abuse Status: Chronic (6) CAD (coronary artery disease) Status: Chronic Qualifiers: (7) Hypertension Status: Chronic Qualifiers: (8) Hyperlipidemia Status: Chronic Qualifiers: History of Present Illness Date of Admission: 01/04/18 Chief Complaint: Nausea, vomiting and diarrhea The patient is a 57 year old female patient who presents to the ER by squad due to generalized illness. Onset of nausea and vomiting began this past Thursday and has progressed to more diarrhea today. She is feeling more weak and came in for evaluation. She has a history of recent hospitalization for gastrointestinal bleeding 1 month ago and received 3 units of PRBCs at that time. Today her hemoglobin is stable ,however, she has hypokalemia and acute kidney injury due to dehydration. She will be admitted for observation overnight for hydration. Past Medical History Past Medical History (Chronic Problems): Chronic Problems (Last Updated 12/10/17 @ 10:37 by Tracy Larson) Iron deficiency anemia (Chronic) Dysarthria (Chronic) Expressive language disorder (Chronic) Other intermediate card tender (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 (Chronic) Presence of stent in coronary artery (Chronic) Atherosclerotic heart disease of [place] coronary artery without angina pectoris (Chronic) PTCA of RA & diagonal with intracoronary stent November 2008 Nicotine abuse (Chronic) Gastrointestinal bleed (Chronic) CAD (coronary artery disease) (Chronic) Hypertension (Chronic) Hyperlipidemia (Chronic) Allergies bupropion [From Wellbutrin] Adverse Reaction (Severe, Verified 12/21/17 14:07) Rash codeine Adverse Reaction (Severe, Verified 12/21/17 14:07) Other PT REPORTS GOING TO SLEEP AND HAS HARD TIME WAKING UP Kzohknd-Oaj-Uaw Reductase Inhibitor Adverse Reaction (Severe, Verified 12/21/17 14:07) Other UNABLE TO WALK Home Medications: Ambulatory Orders Medication Instructions Recorded duloxetine 60 mg capsule,delayed 60 mg PO BID cap 07/27/17 release lisinopril 20 mg tablet 20 mg PO QDAY 07/27/17 isosorbide mononitrate ER 60 mg 60 mg PO DAILY #90 tab 10/14/17 tablet,extended release 24 hr nitroglycerin 0.4 mg sublingual 0.4 mg SUBLINGUAL Q5-15M PRN #25 10/14/17 tablet tab polysaccharide iron complex 150 mg 150 mg PO QDAY cap 11/13/17 iron capsule Levothyroxine [Synthroid] 25 mcg PO DAILY 11/30/17 Metoprolol Tartrate [Lopressor 50 mg PO BID 12/01/17 (beta linn)] Omeprazole 40 mg PO BID #60 capsule. 12/03/17 Warfarin [Coumadin] 8.5 mg PO DAILY@1700 tablet 12/03/17 Rosuvastatin Calcium [Crestor] 10 mg PO DAILY 12/10/17 Surgical History: appendectomy Smoking Status: Current every day smoker - *Family History Maternal History Items: No pertinent history Review of Systems Constitutional: Reports: Weakness. Denies: Chills, Fever, Weight Change HEENT: Denies: Head Aches, Sinus Congestion, Sinus Drainage Cardiovascular: Denies: Chest Pain, Palpitations Respiratory: Denies: Cough, Shortness of breath at rest, Sputum production Gastrointestinal: Reports: Diarrhea, Nausea, Vomiting. Denies: Abdominal Pain Genitourinary: Denies: Dysuria Musculoskeletal: Denies: Joint Pain, Joint Tenderness Skin: Denies: Rash, Wounds Neurological: Denies: Numbness, Tingling, Focal weakness Psychiatric: Denies: Anxiety, Depression, Homicidal Ideations, Suicidal Ideations Hematologic/ Lymphatic: Denies: Easy Bruising, Easy Bleeding VTE Information - Inpt Only VTE Present on Admission: No VTE Mechan Device Prophylaxis: None VTE Pharm Prophylaxis ordered?: Yes Patient Problems: Active and Suspected Problems (Last Updated 12/10/17 @ 10:37 by Tracy Larson) Nausea & vomiting (Acute) Diarrhea (Acute) - Physical Exam General: Alert, Oriented x3, Cooperative HEENT: Atraumatic, Normocephalic Neck: Supple Lungs: Clear to auscultation, Normal air movement Cardiovascular: Regular rate, Normal S1, Normal S2, No murmurs Abdomen: Bowel Sounds Present, Soft, Non Tender, Obese Extremities: No edema, Capillary Refill Less than 3 Seconds Skin: No rashes Musculoskeletal: No Tenderness to Palpation of Joints or Extremities Neurological: Neuro grossly intact Psych/Mental Status: Normal Affect, Appropriate Vital Signs Temp Pulse Resp BP Pulse Ox 97.7 F L 68 15 97/58 L 95 01/04/18 19:56 01/04/18 22:00 01/04/18 22:00 01/04/18 22:00 01/04/18 22:00 Oxygen Flow Rate (L/min) 2 Oxygen Delivery Method Nasal Cannula Weight: 267 lb 6.731 oz Body Mass Index (BMI) 43.1 Laboratory Tests Past 24 Hrs 01/04/18 01/04/18 01/04/18 20:05 20:05 20:05 WBC 5.0 RBC 4.84 Hgb 12.7 Hct 42.3 MCV 87.4 MCH 26.2 L MCHC 30.0 L RDW 27.8 H RDW Differential 88.8 H Plt Count 257 MPV 9.9 Immature Gran % (Auto) 0.200 Neut % (Auto) 53.1 Lymph % (Auto) 30.8 [place] % (Auto) 15.3 H Eos % (Auto) 0.2 Baso % (Auto) 0.4 Absolute Neuts (auto) 2.7 Absolute Lymphs (auto) 1.55 Total Counted Not Reportable Platelet Estimate ADEQUATE Anisocytosis RARE Macrocytosis RARE PT 16.2 H INR 1.3 APTT 45.8 H Sodium 137 Potassium 3.3 L Chloride 103 Carbon Dioxide 25.0 Anion Gap 9 BUN 17 Creatinine 1.77 H Estim Creat Clear Calc 32.04 Est GFR (MDRD) Af Amer 38 L Est GFR (MDRD) Non-Af 31 L BUN/Creatinine Ratio 9.6 L Glucose 147 H Lactic Acid Calcium 8.6 Blood Type Antibody Screen 01/04/18 01/04/18 20:05 21:00 WBC RBC Hgb Hct MCV MCH MCHC RDW RDW Differential Plt Count MPV Immature Gran % (Auto) Neut % (Auto) Lymph % (Auto) [place] % (Auto) Eos % (Auto) Baso % (Auto) Absolute Neuts (auto) Absolute Lymphs (auto) Total Counted Platelet Estimate Anisocytosis Macrocytosis PT INR APTT Sodium Potassium Chloride Carbon Dioxide Anion Gap BUN Creatinine Estim Creat Clear Calc Est GFR (MDRD) Af Amer Est GFR (MDRD) Non-Af BUN/Creatinine Ratio Glucose Lactic Acid 1.5 Calcium Blood Type O POSITIVE Antibody Screen NEGATIVE Assessment/Plan Active and Suspected Problems (Last Updated 12/10/17 @ 10:37 by Tracy Larson) Nausea & vomiting (Acute) Diarrhea (Acute) Chronic Problems (Last Updated 12/10/17 @ 10:37 by Tracy Larson) Iron deficiency anemia (Chronic) Dysarthria (Chronic) Expressive language disorder (Chronic) Other intermediate card tender (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 (Chronic) Presence of stent in coronary artery (Chronic) Atherosclerotic heart disease of [place] coronary artery without angina pectoris (Chronic) PTCA of RA & diagonal with intracoronary stent November 2008 Nicotine abuse (Chronic) Gastrointestinal bleed (Chronic) CAD (coronary artery disease) (Chronic) Hypertension (Chronic) Hyperlipidemia (Chronic) Plan - admit to general medical floor - IV hydration with normal saline at 125cc/hour - replace potassium - cbc, bmp in am - stool culture, and c-diff - continue routine home medications - liquid diet advance as tolerated - zofran 4mg iv q 6hrs prn
[2018-01-04 22:08] VITALS: BP 97/58; PULSE 68; RESP 18; O2SAT 94
--- NOTE | 2018-01-04 22:44 | ED.RN ---
ATTEMPTED TO CONTACT THIRD FLOOR TO SEE IF THEY WERE READY FOR THIS PT, CALLED CHARGE PHONE ([id number]), AND FLOOR PHONE ([id number]), WITH NO RESPONSE. STATUS MARKED RN IV THERAPY.
[2018-01-04 23:09] VITALS: BMI 41.0
[2018-01-04 23:31] VITALS: BP 115/62; PULSE 71; RESP 20; TEMP 37.1; O2SAT 93
[2018-01-04] MEDS: 0.9% Normal Saline 1,000 ML 125 ML IV (23:33)
[2018-01-05 05:27] VITALS: BP 120/57; PULSE 79; RESP 18; TEMP 37; O2SAT 94
[2018-01-05] MEDS: Levothyroxine 25 MCG TABLET PO (05:32)
[2018-01-05 05:48] LABS: International Normalized Ratio 1.3; Prothrombin Time (Protime)PT. 16.2 SECONDS (11.7-14.9)
[2018-01-05 05:54] LABS: Hemoglobin 11.4 g/dl (12.0-15.0); Mean Corpuscular Hgb 26.3 pg (27.0-32.0); Mean Corpuscular Volume 87.8 fL (81-99); Mean Platelet Vol. 9.6 fl (6.2-12.0); Platelet Count 212 K/mm3 (150-450); RBC Distribution Width CV 27.9 % (11.6-14.6); RBC Distribution Width SD 89.2 fl (35.1-43.9); Red Blood Count 4.33 M/mm3 (4.2-5.4); White Blood Count 3.2 K/mm3 (4.4-11.0)
[2018-01-05 06:00] LABS: Scan Indicated on CBC? Y/N YES- FLAGS NOTED
[2018-01-05 06:12] LABS: Anion Gap 8 (5-15); BUN 16 mg/dL (7-18); BUN/Creat Ratio 16.6 RATIO (10-20); Chloride 107 mmol/L (98-107); Creatinine, Serum 0.96 mg/dL (0.55-1.02); EST Glomerular Filtration Rate 63 mL/min (>60); Est Glom Filt Rate - Afr Amer 76 mL/min (>60); Estimated Creatinine Clearance 59.07 ml/min; Glucose 102 mg/dL (74-106); Potassium 3.3 mmol/L (3.5-5.1); Sodium Level 140 mmol/L (136-145)
[2018-01-05 06:43] LABS: Differential Comment SCANNED
[2018-01-05] MEDS: 0.9% Normal Saline 1,000 ML 125 ML IV (07:26)
[2018-01-05 08:00] VITALS: BP 132/70; PULSE 69; RESP 16; TEMP 36.8; O2SAT 96
[2018-01-05 09:41] VITALS: BP 132/70; PULSE 69
[2018-01-05] MEDS: Lisinopril 20 MG Tablet PO (09:41)
[2018-01-05] MEDS: Pantoprazole Sodium 40 MG Tablet PO (09:41)
[2018-01-05] MEDS: DULoxetine Hcl 60 MG Capsule PO (09:41)
[2018-01-05] MEDS: Metoprolol Tartrate 50 MG Tablet PO (09:41)
[2018-01-05] MEDS: Isosorbide Mononitrate 60 MG Tablet PO (09:41)
[2018-01-05] MEDS: Iron Polysaccharide Complex 150 MG CAPSULE PO (09:41)
[2018-01-05 11:47] VITALS: BP 132/70; PULSE 69; RESP 16; TEMP 36.8; O2SAT 96
--- NOTE | 2018-01-05 11:47 | PCM.DC ---
- Discharge Diagnoses Current Active Problems: Current Active and Chronic Problems (Last Updated 12/10/17 @ 10:37 by Tarcy Larson) Nausea & vomiting (Acute) Diarrhea (Acute) You will use the following diet at home:: Cardiac Discharge Activity: Return to Normal Activity Call your doctor if you observe: Dizziness, Fainting spells, Chest pain, Increased palpitations (irregular heartbeat) Allergies/Adverse Reactions: Allergies bupropion [From Wellbutrin] Adverse Reaction (Severe, Verified 12/21/17 14:07) Rash codeine Adverse Reaction (Severe, Verified 12/21/17 14:07) Other PT REPORTS GOING TO SLEEP AND HAS HARD TIME WAKING UP Sfbtaix-Hsk-Toz Reductase Inhibitor Adverse Reaction (Severe, Verified 12/21/17 14:07) Other UNABLE TO WALK Medications to take at Discharge duloxetine 60 mg capsule,delayed release 60 mg PO BID cap 07/27/17 lisinopril 20 mg tablet 20 mg PO QDAY 07/27/17 isosorbide mononitrate ER 60 mg tablet,extended release 24 hr 60 mg PO DAILY #90 tab 10/14/17 nitroglycerin 0.4 mg sublingual tablet 0.4 mg SUBLINGUAL Q5-15M PRN #25 tab 10/14/17 polysaccharide iron complex 150 mg iron capsule 150 mg PO QDAY cap 11/13/17 Levothyroxine [Synthroid] 25 mcg PO DAILY 11/30/17 Metoprolol Tartrate [Lopressor (beta linn)] 50 mg PO BID 12/01/17 Omeprazole 40 mg PO BID #60 capsule. 12/03/17 Rosuvastatin Calcium [Crestor] 10 mg PO QHS 12/10/17 Warfarin [Coumadin] 8.5 mg PO DAILY@1700 01/04/18 Ondansetron HCl [Zofran] 4 mg PO Q6H PRN PRN #20 tab 01/05/18 The following prescriptions were given: Ondansetron HCl [Zofran] 4 mg PO Q6H PRN PRN #20 tab PRN Reason: Nausea Primary Care Physician: Martin Gutierrez Chi, MD [Primary Care Provider] - Please follow up with your Primary Care Physician in: 1 Week Proposed Discharge Date: 01/05/18
--- NOTE | 2018-01-05 11:51 | PCM.DC.SUM ---
<Altagracia Stanford - Last Filed: 01/05/18 11:59> Discharge Date and Diagnosis Date of Admission: 01/04/18 Date of Discharge: 01/05/18 - Primary Discharge Diagnosis Active and Suspected Problems (Last Updated 12/10/17 @ 10:37 by Tracy Larson) 1. Nausea, vomiting, diarrhea-suspected viral gastroenteritis 2. Acute kidney injury secondary to #1 3. Hypokalemia - Secondary Discharge Diagnosis Chronic Problems (Last Updated 12/10/17 @ 10:37 by Tracy Larson) Iron deficiency anemia (Chronic) Dysarthria (Chronic) Expressive language disorder (Chronic) Other prison (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 (Chronic) Presence of stent in coronary artery (Chronic) Atherosclerotic heart disease of [place] coronary artery without angina pectoris (Chronic) PTCA of RA & diagonal with intracoronary stent November 2008 Nicotine abuse (Chronic) Gastrointestinal bleed (Chronic) CAD (coronary artery disease) (Chronic) Hypertension (Chronic) Hyperlipidemia (Chronic) Hospital Course and Treatment Operations: None Procedures: None Summary of Care Provided: The patient is a 57 year old F admitted 01/04/2018 due to nausea, vomiting, diarrhea ?2 days. She denies abdominal pain. Denies blood in stool. She had a recent hospitalization for GI bleed 1 month ago. Hemoglobin stable during admission. She was noted to have acute kidney injury and hypokalemia secondary to dehydration as a result of suspected viral gastroenteritis. Patient's symptoms have resolved. Unable to send stool sample due to no further bowel movement since admission. Patient able to tolerate oral intake without nausea or vomiting. Will discharged on Zofran as needed for nausea. Potassium replaced. Acute kidney injury resolved with IV fluids. Patient is stable for discharge home with further follow-up with primary care physician. Her past medical history includes iron deficiency anemia, coronary artery disease status post PTCA stent,/tobacco dependence, history of GI bleed, hypertension, hyperlipidemia. Patient seen and examined prior to discharge. Heart rate regular rate and rhythm. Lungs clear. Abdomen soft, nontender. Neuro grossly intact. Vital signs stable. Patient is stable for discharge home with further follow-up with primary care physician. This patient was seen by MARIAN Rivera under the supervision of Dr. Gurrola. Discharge Diet: Low fat/ Low Cholesterol Discharge Activity: Return to Normal Activity Call your doctor if you observe: Dizziness, Fainting spells, Chest pain, Increased palpitations (irregular heartbeat) Home Medications: Medications to take at Discharge duloxetine 60 mg capsule,delayed release 60 mg PO BID cap 07/27/17 lisinopril 20 mg tablet 20 mg PO QDAY 07/27/17 isosorbide mononitrate ER 60 mg tablet,extended release 24 hr 60 mg PO DAILY #90 tab 10/14/17 nitroglycerin 0.4 mg sublingual tablet 0.4 mg SUBLINGUAL Q5-15M PRN #25 tab 10/14/17 polysaccharide iron complex 150 mg iron capsule 150 mg PO QDAY cap 11/13/17 Levothyroxine [Synthroid] 25 mcg PO DAILY 11/30/17 Metoprolol Tartrate [Lopressor (beta linn)] 50 mg PO BID 12/01/17 Omeprazole 40 mg PO BID #60 capsule.dr 12/03/17 Rosuvastatin Calcium [Crestor] 10 mg PO QHS 12/10/17 Warfarin [Coumadin] 8.5 mg PO DAILY@1700 01/04/18 Ondansetron HCl [Zofran] 4 mg PO Q6H PRN PRN #20 tab 01/05/18 Following Prescrptions Were Given to Patient: Ondansetron HCl [Zofran] 4 mg PO Q6H PRN PRN #20 tab PRN Reason: Nausea Primary Care Physician: Martin Gutierrez Chi, MD [Primary Care Provider] - Please follow up with your Primary Care Physician in: 1 Week Disposition: Home Minutes spent on discharge:: 35 Patient Condition:: Stable Medical Necessity - Tobacco Use Smoking Status: Current every day smoker Meaningful Use Info Meaningful Use Diagnoses (Choose all that apply): None applicable <Pernell Gurrola E - Last Filed: 01/05/18 13:42> Discharge Date and Diagnosis - Secondary Discharge Diagnosis Chronic Problems (Last Updated 12/10/17 @ 10:37 by Tracy Larson) Iron deficiency anemia (Chronic) Dysarthria (Chronic) Expressive language disorder (Chronic) Other prison (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 (Chronic) Presence of stent in coronary artery (Chronic) Atherosclerotic heart disease of [place] coronary artery without angina pectoris (Chronic) PTCA of RA & diagonal with intracoronary stent November 2008 Nicotine abuse (Chronic) Gastrointestinal bleed (Chronic) CAD (coronary artery disease) (Chronic) Hypertension (Chronic) Hyperlipidemia (Chronic) Hospital Course and Treatment Summary of Care Provided: Hospitalist note: Discharge summary above reviewed as well as physical examination and I agree with above discharge plan. Patient admitted because of nausea, vomiting and diarrhea and she was found to have viral gastroenteritis completed by hypokalemia and acute kidney injury. She was treated with IV fluids, IV antiemetics and his symptoms improved. Today, she has no more nausea or vomiting and she has no more diarrhea. Her kidney function returned back to normal. Admission creatinine was 1.77 and 1 down to 0.96 today after IV fluids. Her lactic acid was normal. Her vital signs are stable. Patient discharged home in a stable medical condition, discharged on same chronic home medication without any changes, recommended to hydrate herself well if she continued to have nausea or vomiting as well as diarrhea, recommended follow-up with PCP in 1 week. . Minutes spent on discharge:: 24 Code Visit OBSV E&M: 73625 Observation care discharge
--- NOTE | 2018-01-05 11:59 | DS.PCM_ITS ---
<Altagracia Stanford - Last Filed: 01/05/18 11:59> Discharge Date and Diagnosis Date of Admission: 01/04/18 Date of Discharge: 01/05/18 - Primary Discharge Diagnosis Active and Suspected Problems (Last Updated 12/10/17 @ 10:37 by Tracy Larson) 1. Nausea, vomiting, diarrhea-suspected viral gastroenteritis 2. Acute kidney injury secondary to #1 3. Hypokalemia - Secondary Discharge Diagnosis Chronic Problems (Last Updated 12/10/17 @ 10:37 by Tracy Larson) Iron deficiency anemia (Chronic) Dysarthria (Chronic) Expressive language disorder (Chronic) Other retirement (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 (Chronic) Presence of stent in coronary artery (Chronic) Atherosclerotic heart disease of [place] coronary artery without angina pectoris (Chronic) PTCA of RA & diagonal with intracoronary stent November 2008 Nicotine abuse (Chronic) Gastrointestinal bleed (Chronic) CAD (coronary artery disease) (Chronic) Hypertension (Chronic) Hyperlipidemia (Chronic) Hospital Course and Treatment Operations: None Procedures: None Summary of Care Provided: The patient is a 57 year old F admitted 01/04/2018 due to nausea, vomiting, diarrhea ?2 days. She denies abdominal pain. Denies blood in stool. She had a recent hospitalization for GI bleed 1 month ago. Hemoglobin stable during admission. She was noted to have acute kidney injury and hypokalemia secondary to dehydration as a result of suspected viral gastroenteritis. Patient's symptoms have resolved. Unable to send stool sample due to no further bowel movement since admission. Patient able to tolerate oral intake without nausea or vomiting. Will discharged on Zofran as needed for nausea. Potassium replaced. Acute kidney injury resolved with IV fluids. Patient is stable for discharge home with further follow-up with primary care physician. Her past medical history includes iron deficiency anemia, coronary artery disease status post PTCA stent,/tobacco dependence, history of GI bleed, hypertension, hyperlipidemia. Patient seen and examined prior to discharge. Heart rate regular rate and rhythm. Lungs clear. Abdomen soft, nontender. Neuro grossly intact. Vital signs stable. Patient is stable for discharge home with further follow-up with primary care physician. This patient was seen by MARIAN Rivera under the supervision of Dr. Gurrola. Discharge Diet: Low fat/ Low Cholesterol Discharge Activity: Return to Normal Activity Call your doctor if you observe: Dizziness, Fainting spells, Chest pain, Increased palpitations (irregular heartbeat) Home Medications: Medications to take at Discharge duloxetine 60 mg capsule,delayed release 60 mg PO BID cap 07/27/17 lisinopril 20 mg tablet 20 mg PO QDAY 07/27/17 isosorbide mononitrate ER 60 mg tablet,extended release 24 hr 60 mg PO DAILY # 90 tab 10/14/17 nitroglycerin 0.4 mg sublingual tablet 0.4 mg SUBLINGUAL Q5-15M PRN #25 tab polysaccharide iron complex 150 mg iron capsule 150 mg PO QDAY cap 11/13/17 Levothyroxine [Synthroid] 25 mcg PO DAILY 11/30/17 Metoprolol Tartrate [Lopressor (beta linn)] 50 mg PO BID 12/01/17 Omeprazole 40 mg PO BID #60 capsule.dr 12/03/17 Rosuvastatin Calcium [Crestor] 10 mg PO QHS 12/10/17 Warfarin [Coumadin] 8.5 mg PO DAILY@1700 01/04/18 Ondansetron HCl [Zofran] 4 mg PO Q6H PRN PRN #20 tab 01/05/18 Following Prescrptions Were Given to Patient: Ondansetron HCl [Zofran] 4 mg PO Q6H PRN PRN #20 tab PRN Reason: Nausea Primary Care Physician: Martin Gutierrez Chi, MD [Primary Care Provider] - Please follow up with your Primary Care Physician in: 1 Week Disposition: Home Minutes spent on discharge:: 35 Patient Condition:: Stable Medical Necessity - Tobacco Use Smoking Status: Current every day smoker Meaningful Use Info Meaningful Use Diagnoses (Choose all that apply): None applicable <Pernell Gurrola E - Last Filed: 01/05/18 13:42> Discharge Date and Diagnosis - Secondary Discharge Diagnosis Chronic Problems (Last Updated 12/10/17 @ 10:37 by Tracy Larson) Iron deficiency anemia (Chronic) Dysarthria (Chronic) Expressive language disorder (Chronic) Other retirement (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 (Chronic) Presence of stent in coronary artery (Chronic) Atherosclerotic heart disease of [place] coronary artery without angina pectoris (Chronic) PTCA of RA & diagonal with intracoronary stent November 2008 Nicotine abuse (Chronic) Gastrointestinal bleed (Chronic) CAD (coronary artery disease) (Chronic) Hypertension (Chronic) Hyperlipidemia (Chronic) Hospital Course and Treatment Summary of Care Provided: Hospitalist note: Discharge summary above reviewed as well as physical examination and I agree with above discharge plan. Patient admitted because of nausea, vomiting and diarrhea and she was found to have viral gastroenteritis completed by hypokalemia and acute kidney injury. She was treated with IV fluids, IV antiemetics and his symptoms improved. Today, she has no more nausea or vomiting and she has no more diarrhea. Her kidney function returned back to normal. Admission creatinine was 1.77 and 1 down to 0.96 today after IV fluids. Her lactic acid was normal. Her vital signs are stable. Patient discharged home in a stable medical condition, discharged on same chronic home medication without any changes, recommended to hydrate herself well if she continued to have nausea or vomiting as well as diarrhea, recommended follow-up with PCP in 1 week. . Minutes spent on discharge:: 24 Code Visit OBSV E&M: [id number] Observation care discharge
== END 2018-01-05 12:09 | disposition home or self-care (01) ==
LOC: ED 21:18 → MS3 22:41
PROVIDERS: Admitting Provider Family Medicine; Emergency Provider Emergency Medicine; Family Provider Family Medicine Geriatric Medicine; PCP Family Medicine Geriatric Medicine; Visit Provider Hospitalist
DX: E86.0 Dehydration (principal); R11.2 Nausea with vomiting, unspecified; R19.7 Diarrhea, unspecified; N17.9 Acute kidney failure, unspecified; E87.6 Hypokalemia; D50.9 Iron deficiency anemia, unspecified; I25.10 Atherosclerotic heart disease of native coronary artery without angina pectoris; Z95.5 Presence of coronary angioplasty implant and graft; I10 Essential (primary) hypertension; E78.5 Hyperlipidemia, unspecified; F80.1 Expressive language disorder; F17.200 Nicotine dependence, unspecified, uncomplicated; Z79.899 Other long term (current) drug therapy; Z79.01 Long term (current) use of anticoagulants; I95.9 Hypotension, unspecified
CPT/HCPCS: 36415; 80048; 83605; 85025; 85027; 85610; 85730; 86850; 86900; 93005; 96360; 96361; 99218; 99285; J7030; A4216; G0378

== ENCOUNTER → 2018-01-12 15:26 | Outpatient (CLI) | payer OTHER, SELFPAY ==
[2018-01-12 16:49] LABS: Absolute Lymphocyte Count 2.18 X10^3/ul (0.83-4.51); Absolute Neutrophil Count 3.9 X10^3/uL (2.0-7.7); Basophil# 0.03 X10^3/uL; Basophil% 0.4 % (0-1); Eosinophil# 0.15 X10^3/uL; Eosinophils% 2.2 % (0-5); Hematocrit 37.9 % (37-47); Hemoglobin 11.4 g/dl (12.0-15.0); Lymphocyte # 2.18 X10^3/ul (4.0); Lymphocyte % 31.3 % (19-41); Mean Corp Hgb Conc 30.1 g/gl (32-36); Mean Corpuscular Hgb 27.1 pg (27.0-32.0); Mean Corpuscular Volume 90.2 fL (81-99); Mean Platelet Vol. 10.2 fl (6.2-12.0); Monocyte# 0.67 X10^3/uL; Monocyte% 9.6 % (0-10); Neutrophil # 3.93 X10^3/uL (2.7-7.7); Neutrophil % 56.4 % (47-70); Platelet Count 327 K/mm3 (150-450); RBC Distribution Width CV 26.9 % (11.6-14.6); RBC Distribution Width SD 87.7 fl (35.1-43.9)
[2018-01-12 16:52] LABS: POSITIVE COUNT NO; POSITIVE DIFFERENTIAL NO; POSITIVE MORPHOLOGY NO
[2018-01-12 17:14] LABS: Platelet Estimate ADEQUATE (ADEQ)
[2018-01-12 17:15] LABS: ALB/GLOB Ratio 0.8 RATIO (0.9-2.4); AST(SGOT) 17 U/L (15-37); Alanine Aminotransfer ALT/SGPT 25 U/L (13-56); Albumin, Serum 3.2 g/dL (3.2-5.0); Alkaline Phosphatase 98 U/L (45-117); Anion Gap 7 (5-15); BUN 9 mg/dL (7-18); BUN/Creat Ratio 12.1 RATIO (10-20); Calcium,Total 8.4 mg/dL (8.5-10.1); Chloride 108 mmol/L (98-107); Creatinine, Serum 0.75 mg/dL (0.55-1.02); Differential Comment SCANNED; EST Glomerular Filtration Rate 84 mL/min (>60); Est Glom Filt Rate - Afr Amer 102 mL/min (>60); Globulin 3.8 g/dL (2.2-4.2); Glucose 93 mg/dL (74-106); Platelet Morphology GIANT; Potassium 4.5 mmol/L (3.5-5.1); Sodium Level 143 mmol/L (136-145); Thyroid Stim Hormone (TSH) 1.82 uIU/mL (0.358-3.74)
[2018-01-12 17:16] LABS: Anisocytosis 4+
== END ==
PROVIDERS: Family Provider Family Medicine Geriatric Medicine; PCP Family Medicine Geriatric Medicine; Visit Provider Family Medicine Geriatric Medicine
DX: I10 Essential (primary) hypertension (principal)
CPT/HCPCS: 36415; 80053; 84443; 85025

== ENCOUNTER → 2018-02-05 07:08 | Outpatient (CLI) | payer OTHER, SELFPAY ==
--- NOTE | 2018-02-05 07:31 | BI_ITS ---
MAMMOGRAPHY - BILATERAL SCREENING REASON FOR EXAM: Female, 57 years old. Routine annual screening examination. PERTINENT HISTORY: Non-contributory. TECHNIQUE: Digital bilateral breast marcie (3D mammographic acquisition) in the CC and MLO projections. 2-D mediolateral oblique (MLO) and craniocaudad (CC) views of both breasts were obtained. CAD: Full Field Digital Mammography with Computer Added Detection was performed. COMPARISON: Comparison is made with prior study dated July 31, 2016. FINDINGS: Breast Composition: There are scattered areas of fibroglandular density. There are no dominant masses or suspicious calcifications. No other significant abnormalities are identified. There has been no significant change since the prior study. BI/SCREENING MAMM (CAD), BILAT IMPRESSION: Stable bilateral screening mammogram. Yearly follow-up mammogram recommended. (A) ASSESSMENT CATEGORY: BIRADS Category 1: Negative. A letter regarding these results will be sent to the patient by the facility within 30 days. Approximately 10% of breast cancers are not detected by mammography. A normal mammogram should not delay biopsy of a clinically suspicious abnormality. [id number] Electronically Signed: Gamaliel Serrano MD at 15:50 EDT Tel [phone], Service support ,
--- NOTE | 2018-02-05 07:58 | CT_ITS ---
STUDY: LOW DOSE CT LUNG CANCER SCREENING REASON FOR EXAM: Female, 57 years old. Nicotine dependence, smokes 1/2 pack/day x 40 years, 260lbs, hypertension, coronary stents x 3. RADIATION DOSAGE (If Supplied By Facility): CTDIvol = ( 4.02 ) mGy, DLP = ( 125.87 ) mGycm TECHNIQUE: No contrast was administered. Low dose technique was utilized (average mAS-38 and kVp 120). 1.25 mm axial source images with a slice interval of 1.25-mm were reconstructed in lung windows. 2.5 mm axial source images with a slice interval of 2.5-mm were reconstructed in lung windows. 5.0 mm axial source images with a slice interval of 5.0-mm were reconstructed in soft tissue windows. Nodule measured using lung windows on PACS and/or independent workstation with automated measurement of minimum and maximum diameter. Nodule measurement reported as average diameter rounded to the nearest whole number. Growth is defined as an increase ins size of greater than 1.5 mm. COMPARISON: None. NODULES: Subsegmental atelectases are noted in the right middle lobe and lingula. There is no demonstrated pleural abnormality. Normal heart and pericardium. Normal mediastinum. Normal hilar regions. Normal unenhanced pulmonary arteries. Normal aorta arch and descending thoracic aorta. There are multi-level degenerative changes and diffuse demineralization of the thoracic spine. There is no demonstrated abnormality of the visualized upper abdomen. CT/Low Dose CT Lung Screening IMPRESSION: Lung-RADS category 2. Recommendation: Routine screening CT scan in one year. IMPORTANT NOTES FOR USE: ACR Lung-RADS Version 1.0 Assessment Categories Release Date: December 19, 2013 Category: Coded 0-4 bases on nodule(s) with highest degree of suspicion. Negative screen is defined as categories 1 and 2; a positive screen is defined as categories 3 and 4. Category 3 and 4A nodules that are unchanged on interval CT should be coded as category 2, and individuals returned to screening in 12 months. Category 4X: Category 3 or 4 nodules with additional imaging findings that increase the suspicion of lung cancer, such as spiculation, GGN that doubles in size in 1 year, enlarged lymph notes, etc. Category Modifiers: S (significant finding unrelated to lung cancer) and C (prior history of treated lung cancer) may be added to the 0-4 Lung-RADS Electronically Signed: Bryce Montoya MD at 10:25 EDT Tel , Service support ,
== END ==
PROVIDERS: Family Provider Family Medicine Geriatric Medicine; PCP Family Medicine Geriatric Medicine; Visit Provider Internal Medicine Hematology & Oncology
DX: Z12.31 Encounter for screening mammogram for malignant neoplasm of breast (principal); F17.210 Nicotine dependence, cigarettes, uncomplicated
CPT/HCPCS: 77063; 77067; G0297

== ENCOUNTER → 2018-03-31 12:52 | Outpatient (CLI) | payer OTHER, SELFPAY ==
--- NOTE | 2018-03-31 12:54 | CDU_ITS ---
Reason For Study: bruit Rt. Velocities/BP Lt. Velocities/BP Prox CCA 61.7/11.8 cm/sec. Prox CCA 72.1/15.8 cm/sec. Mid CCA 52.3/11.4 cm/sec. Mid CCA 71.5/16.4 cm/sec. Dist CCA 62.1/14.9 cm/sec. Dist CCA 59.3/16.9 cm/sec. Prox ICA 299.0/69.4 cm/sec. Prox ICA 232.0/57.6 cm/sec. Mid ICA 221.0/41.9 cm/sec. Mid ICA 200.0/56.3 cm/sec. Dist ICA 104.0/28.7 cm/sec. Dist ICA 134.0/32.4 cm/sec. Rt. ICA/CCA = 299.0/62.1=4.8. Lt. ICA/CCA = 232.0/71.5=3.2. Prox ECA 87.9/8.79 cm/sec. Prox ECA 108.0/10.6 cm/sec. Rt. Vert. 64.4/13.0 cm/sec. Lt. Vert. 65.1/21.1 cm/sec. Right Extracranial There is homogeneous, smooth atherosclerotic plaque noted in the right common carotid artery. There is heterogeneous, irregular atherosclerotic plaque noted in the right internal carotid artery. The atherosclerotic plaque causes acoustic shadowing. There is intimal thickening but no significant atherosclerotic plaque noted in the right external carotid artery. Antegrade flow is noted in the right vertebral artery. Left Extracranial There is homogeneous, smooth atherosclerotic plaque noted in the left common carotid artery. There is heterogeneous, irregular atherosclerotic plaque noted in the left internal carotid artery. There is intimal thickening but no significant atherosclerotic plaque noted in the left external carotid artery. Antegrade flow is noted in the left vertebral artery. Procedure Carotid Duplex [id number]. The exam was diagnostic. Exam performed in department. 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 Post surgical changes left internal carotid with >70% stenosis. Normal flow bilateral external carotids Patent and antegrade vertebrals bilaterally Progression of stenosis noted in bilateral internal carotids noted from the previous exam of 01/23/17 especially advancing from insignificant disease on the left internal carotid to >70% stenosis. Ordering Physician: Martin Gutierrez Referring Physician: Martin Gutierrez Chi Performed By: Khloe Andrew, PATRICE, RVT
== END ==
PROVIDERS: Family Provider Family Medicine Geriatric Medicine; PCP Family Medicine Geriatric Medicine; Visit Provider Family Medicine Geriatric Medicine
DX: R09.89 Other specified symptoms and signs involving the circulatory and respiratory systems (principal)
CPT/HCPCS: 93880

== ENCOUNTER → 2018-04-02 11:31 | Outpatient (CLI) | payer OTHER, SELFPAY ==
[2018-04-02 13:16] LABS: Absolute Lymphocyte Count 1.91 X10^3/ul (0.83-4.51); Basophil# 0.04 X10^3/uL; Basophil% 0.6 % (0-1); Eosinophils% 1.5 % (0-5); Hematocrit 41.2 % (37-47); Hemoglobin 13.1 g/dl (12.0-15.0); Lymphocyte # 1.91 X10^3/ul (4.0); Lymphocyte % 28.8 % (19-41); Mean Corp Hgb Conc 31.8 g/gl (32-36); Mean Corpuscular Volume 100.7 fL (81-99); Mean Platelet Vol. 10.3 fl (6.2-12.0); Monocyte# 0.54 X10^3/uL; Monocyte% 8.1 % (0-10); Neutrophil # 4.04 X10^3/uL (2.7-7.7); Neutrophil % 60.8 % (47-70); Platelet Count 266 K/mm3 (150-450); RBC Distribution Width CV 17.9 % (11.6-14.6); RBC Distribution Width SD 64.6 fl (35.1-43.9); Red Blood Count 4.09 M/mm3 (4.2-5.4); White Blood Count 6.6 K/mm3 (4.4-11.0)
[2018-04-02 13:19] LABS: POSITIVE COUNT NO; POSITIVE DIFFERENTIAL NO; POSITIVE MORPHOLOGY NO
[2018-04-02 13:43] LABS: ALB/GLOB Ratio 1.1 RATIO (0.9-2.4); AST(SGOT) 14 U/L (15-37); Alanine Aminotransfer ALT/SGPT 23 U/L (13-56); Albumin, Serum 3.5 g/dL (3.2-5.0); Alkaline Phosphatase 115 U/L (45-117); Anion Gap 7 (5-15); BUN 11 mg/dL (7-18); BUN/Creat Ratio 13.4 RATIO (10-20); Calcium,Total 8.6 mg/dL (8.5-10.1); Chloride 108 mmol/L (98-107); Creatinine, Serum 0.82 mg/dL (0.55-1.02); EST Glomerular Filtration Rate 75 mL/min (>60); Est Glom Filt Rate - Afr Amer 91 mL/min (>60); Globulin 3.3 g/dL (2.2-4.2); Glucose 118 mg/dL (74-106); Potassium 4.4 mmol/L (3.5-5.1); Protein, Total 6.8 g/dL (6.4-8.2); Sodium Level 141 mmol/L (136-145); Thyroid Stim Hormone (TSH) 1.79 uIU/mL (0.358-3.74)
== END ==
PROVIDERS: Family Provider Family Medicine Geriatric Medicine; PCP Family Medicine Geriatric Medicine; Visit Provider Family Medicine Geriatric Medicine
DX: I10 Essential (primary) hypertension (principal)
CPT/HCPCS: 36415; 80053; 84443; 85025

== ENCOUNTER → 2018-04-15 08:15 | Outpatient (CLI) | payer OTHER, SELFPAY | PROVIDERS: Family Provider Family Medicine Geriatric Medicine; PCP Family Medicine Geriatric Medicine; Visit Provider Surgery | DX: I65.29 Occlusion and stenosis of unspecified carotid artery (principal) | CPT/HCPCS: 70498; Q9967 ==

== ENCOUNTER → 2018-07-05 14:59 | Outpatient (CLI) | payer OTHER, SELFPAY ==
[2018-07-05 17:14] LABS: ALB/GLOB Ratio 0.9 RATIO (0.9-2.4); AST(SGOT) 14 U/L (15-37); Absolute Lymphocyte Count 2.34 X10^3/ul (0.83-4.51); Absolute Neutrophil Count 4.2 X10^3/uL (2.0-7.7); Alanine Aminotransfer ALT/SGPT 22 U/L (13-56); Albumin, Serum 3.3 g/dL (3.2-5.0); Alkaline Phosphatase 115 U/L (45-117); Anion Gap 8 (5-15); BUN 9 mg/dL (7-18); BUN/Creat Ratio 10.4 RATIO (10-20); Basophil# 0.05 X10^3/uL; Basophil% 0.7 % (0-1); Calcium,Total 8.3 mg/dL (8.5-10.1); Chloride 106 mmol/L (98-107); Creatinine, Serum 0.86 mg/dL (0.55-1.02); EST Glomerular Filtration Rate 71 mL/min (>60); Eosinophil# 0.16 X10^3/uL; Eosinophils% 2.1 % (0-5); Est Glom Filt Rate - Afr Amer 86 mL/min (>60); Globulin 3.6 g/dL (2.2-4.2); Glucose 127 mg/dL (74-106); Hematocrit 37.4 % (37-47); Hemoglobin 11.4 g/dl (12.0-15.0); Lymphocyte # 2.34 X10^3/ul (4.0); Lymphocyte % 30.8 % (19-41); Mean Corp Hgb Conc 30.5 g/gl (32-36); Mean Corpuscular Hgb 29.7 pg (27.0-32.0); Mean Corpuscular Volume 97.4 fL (81-99); Mean Platelet Vol. 10.6 fl (6.2-12.0); Monocyte# 0.83 X10^3/uL; Monocyte% 10.9 % (0-10); Neutrophil # 4.19 X10^3/uL (2.7-7.7); Neutrophil % 55.2 % (47-70); Platelet Count 277 K/mm3 (150-450); Potassium 4.1 mmol/L (3.5-5.1); Protein, Total 6.9 g/dL (6.4-8.2); RBC Distribution Width SD 46.9 fl (35.1-43.9); Red Blood Count 3.84 M/mm3 (4.2-5.4); Sodium Level 139 mmol/L (136-145); Thyroid Stim Hormone (TSH) 1.69 uIU/mL (0.358-3.74); White Blood Count 7.6 K/mm3 (4.4-11.0)
[2018-07-05 17:29] LABS: POSITIVE COUNT NO; POSITIVE DIFFERENTIAL NO; POSITIVE MORPHOLOGY NO
== END ==
PROVIDERS: Family Provider Family Medicine Geriatric Medicine; PCP Family Medicine Geriatric Medicine; Visit Provider Family Medicine Geriatric Medicine
DX: I10 Essential (primary) hypertension (principal); E55.9 Vitamin D deficiency, unspecified
CPT/HCPCS: 36415; 80053; 84443; 85025

== ENCOUNTER → 2018-07-09 09:13 | Outpatient (CLI) | payer OTHER, SELFPAY ==
[2018-07-07 12:52] VITALS: BMI 45.1
--- NOTE | 2018-07-09 09:15 | US_ITS ---
STUDY: ABDOMINAL ULTRASOUND - RIGHT UPPER QUADRANT REASON FOR VISIT: Female, 58 years old. Right upper quadrant pain. TECHNIQUE: Ultrasound evaluation of the right upper quadrant was performed with real-time and static macias-scale imaging. TECHNICAL QUALITY: Adequate. COMPARISON: None. FINDINGS: Liver: The liver measures 17.2 cm. There is increased echogenicity consistent with fatty infiltration. The bile ducts are within normal limits. There is hepatic color flow. The direction of portal flow is hepatopetal. There is no demonstrated mass lesion. Gallbladder: Normal distended gallbladder. The gallbladder wall measures 3.4 mm. There is a negative sonographic Walsh's sign. There is no pericholecystic fluid. There are no gallstones. Common Bile Duct (C.B.D.): The common bile duct measures 4.5 mm. Pancreas: Normal size of the head, body and tail of the pancreas. There is normal echogenicity of the pancreas. There is no demonstrated pancreatic mass or cyst. Right Kidney: Normal size of the right kidney. The right kidney measures 12.9 cm in length. Normal renal cortex. There is no demonstrated renal mass or cyst. There is no right hydronephrosis. US/Abdomen Limited IMPRESSION: Fatty infiltration of the liver. Mild gallbladder wall thickening with no associated pericholecystic fluid, sonographic Walsh's sign nor cholelithiasis; the wall thickening may be reactive. Electronically Signed: Mylene Sky MD at 11:02 EST Tel , Service support ,
== END ==
PROVIDERS: Family Provider Family Medicine Geriatric Medicine; PCP Family Medicine Geriatric Medicine; Referring Provider Family Medicine Geriatric Medicine; Visit Provider Family Medicine Geriatric Medicine
DX: R10.9 Unspecified abdominal pain (principal)
CPT/HCPCS: 76705

== ENCOUNTER → 2018-07-20 10:30 | Outpatient (CLI) | payer OTHER, SELFPAY ==
[2018-07-07 12:52] VITALS: BMI 45.1
--- NOTE | 2018-07-20 10:32 | NM_ITS ---
CLINICAL: 58-year-old female with reported history of right upper quadrant abdominal pain. RADIONUCLIDE HEPATOBILIARY SCINTIGRAPHY COMPARISON: Abdominal ultrasound report 07/09/2018 FINDINGS: Following the intravenous administration of 5.2 mCi of 99m Tc Mebrofenin, hepatobiliary images reveal: 1. Relatively prompt and homogeneous radiopharmaceutical concentration is noted by a normal sized liver. No parenchymal defects are identified. 2. Gallbladder activity is identified at 15 minutes post radiopharmaceutical administration. 3. Small intestinal tract is observed by 60 minutes following tracer injection. 4. Washout of the radiopharmaceutical by the hepatic parenchyma appears qualitatively normal. The patient was administered a fatty meal (8 ounces BOOST-30 grams fat). The post fatty meal consumption gallbladder ejection fraction calculated at 29 minutes was noted to be 82.0 % (normal greater than 30%). IA/Hepatobilliary Img w/Pharm Int IMPRESSION: 1. NORMAL 99m Tc Mebrofenin hepatobiliary imaging examination with fatty meal ingestion. A. A gallbladder ejection fraction calculated to be greater than 30% following the administration of a consumed fatty meal makes the probability of functional hepatobiliary disease (gallbladder and/or sphincter of Oddi dyskinesia) and/or organic hepatobiliary disease (chronic acalculous cholecystitis and/or cystic duct syndrome) to be low. (Sunday and Faizan, J Nucl Med 43: 1603, 2002). Electronically Signed: Ralph Raymond DO at 22:42 EST Tel , Service support ,
--- OUTSIDE RECORDS SUMMARY | 2018-09-01 01:53 | XMS RPT_ITS ---
:1960 Author Organization OHIP Support Name Relationship Address Phone D Unavailable Unavailable Unavailable DORI LARIOS Unavailable [address] + [place] [address] RIC, TRISHA Unavailable . + [place] [address] D Unavailable Unavailable Unavailable DORI LARIOS Unavailable [address] + [place] [address] RIC, TRISHA Unavailable Unavailable + D Unavailable Unavailable Unavailable DORI LARIOS Unavailable [address] + [place] [address] RIC, TRISHA Unavailable Unavailable + D Unavailable Unavailable Unavailable DORI LARIOS Unavailable [address] + [place] [address] RIC, TRISHA Unavailable Unavailable + D Unavailable Unavailable Unavailable DORI LARIOS Unavailable [address] + [place] [address] RIC, TRISHA Unavailable Unavailable + D Unavailable Unavailable Unavailable DORI LARIOS Unavailable [address] + [place] [address] RIC, TRISHA Unavailable Unavailable + D Unavailable Unavailable Unavailable DORI LARIOS Unavailable [address] + [place] [address] RIC, TRISHA Unavailable . + [place] [address] D Unavailable Unavailable Unavailable DORI LARIOS Unavailable [address] + [place] [address] RIC, TRISHA Unavailable Unavailable + [place] [address] D Unavailable Unavailable Unavailable DORI LARIOS Unavailable [address] + [place] [address] RIC, TRISHA Unavailable . + [place] [address] D Unavailable Unavailable Unavailable DORI LARIOS Unavailable [address] + [place] [address] RIC, TRISHA Unavailable Unavailable + D Unavailable Unavailable Unavailable DORI LARIOS Unavailable [address] + [place] [address] RIC, TRISHA Unavailable Unavailable + D Unavailable Unavailable Unavailable DORI LARIOS Unavailable [address] + [place] [address] RIC, TRISHA Unavailable Unavailable + D Unavailable Unavailable Unavailable DORI LARIOS Unavailable [address] + [place] [address] RIC, TRISHA Unavailable . + [place] [address] D Unavailable Unavailable Unavailable DORI LARIOS Unavailable [address] + [place] [address] RIC, TRISHA Unavailable . + [place] [address] D Unavailable Unavailable Unavailable DORI LARIOS Unavailable [address] + [place] [address] RIC, TRISHA Unavailable . + [place] [address] D Unavailable Unavailable Unavailable DORI LARIOS Unavailable [address] + [place] [address] RIC, RTISHA Unavailable Unavailable + D Unavailable Unavailable Unavailable DORI LARIOS Unavailable [address] + [place] [address] RIC, TRISHA Unavailable Unavailable + D Unavailable Unavailable Unavailable DORI LARIOS Unavailable [address] + [place] [address] RIC, TRISHA Unavailable Unavailable + D Unavailable Unavailable Unavailable DORI LARIOS Unavailable [address] + [place] [address] RIC, TRISHA Unavailable Unavailable + D Unavailable Unavailable Unavailable DORI LARIOS Unavailable [address] + [place] [address] RIC, TRISHA Unavailable Unavailable + D Unavailable Unavailable Unavailable DORI LARIOS Unavailable [address] + [place] [address] RIC, TRISHA Unavailable Unavailable + D Unavailable Unavailable Unavailable DORI LARIOS Unavailable [address] + [place] [address] TRISHA, RIC Unavailable Unavailable + [place] [address] D Unavailable Unavailable Unavailable DORI LARIOS Unavailable [address] + [place] [address] TRISHA, RIC Unavailable Unavailable + [place] [address] D Unavailable Unavailable Unavailable DORI LARIOS Unavailable [address] + [place] [address] TRISHA, RIC Unavailable Unavailable + [place] [address] D Unavailable Unavailable Unavailable DORI LARIOS Unavailable [address] + [place] [address] TRISHA, RIC Unavailable Unavailable + [place] [address] D Unavailable Unavailable Unavailable DORI LARIOS Unavailable [address] + [place] [address] TRISHA, RIC Unavailable Unavailable + [place] [address] D Unavailable Unavailable Unavailable DORI LARIOS Unavailable [address] + [place] [address] TRISHA, RIC Unavailable Unavailable + [place] [address] D Unavailable Unavailable Unavailable DORI LARIOS Unavailable [address] + [place] [address] TRISHA, RIC Unavailable Unavailable + [place] [address] D Unavailable Unavailable Unavailable DORI LARIOS Unavailable [address] [facility] + [place] [address] TRISHA, RIC Unavailable Unavailable + [place] [address] D Unavailable Unavailable Unavailable DORI LARIOS Unavailable [address] [facility] + [place] [address] TRISHA, RIC Unavailable Unavailable + [place] [address] D Unavailable Unavailable Unavailable RIC DORI Unavailable [address] [facility] + [place] [address] TRISHA, RIC Unavailable Unavailable + D Unavailable Unavailable Unavailable DORI LARIOS Unavailable [address] [facility] + [place] [address] TRISHA, RIC Unavailable Unavailable + [place] [address] D Unavailable Unavailable Unavailable D Unavailable Unavailable Unavailable D Unavailable Unavailable Unavailable D Unavailable Unavailable Unavailable D Unavailable Unavailable Unavailable DORI LARIOS Unavailable [address] [facility] + [place] [address] TRISHA, RIC Unavailable Unavailable + [place] [address] D Unavailable Unavailable Unavailable D Unavailable Unavailable Unavailable D Unavailable Unavailable Unavailable D Unavailable Unavailable Unavailable D Unavailable Unavailable Unavailable Care Team Providers Name Role Phone Matt, Martin Chi Attending Unavailable Matt, Martin Chi Primary Care Unavailable Matt, Martin Chi Attending Unavailable Matt, Martin Chi Primary Care Unavailable Matt, Martin Chi Attending Unavailable Matt, Martin Chi Referring Unavailable Matt, Martin Chi Primary Care Unavailable Eliane Rodrigez Attending Unavailable Eliane Rodrigez Referring Unavailable Matt, Martin Chi Primary Care Unavailable Eliane Rodrigez Attending Unavailable Matt, Martin Chi Referring Unavailable Matt, Martin Chi Primary Care Unavailable Eliane Rodrigez Attending Unavailable Eliane Rodrigez Referring Unavailable Matt, Martin Chi Primary Care Unavailable Mtat, Martin Chi Attending Unavailable Matt, Martin Chi Primary Care Unavailable Robotham, Sis Attending Unavailable Matt, Martin Chi Referring Unavailable Robotham, Sis Attending Unavailable Matt, Martin Chi Referring Unavailable Matt, Martin Chi Primary Care Unavailable Eliane Rodrigez M Attending Unavailable Matt, Martin Chi Referring Unavailable Matt, Martin Chi Primary Care Unavailable Robotham, Sis Attending Unavailable Robotham, Sis Referring Unavailable Matt, Martin Chi Primary Care Unavailable Matt, Martin Chi Primary Care Unavailable Tillman, Joaquín Admitting Unavailable Moses Gloria D.O. Consulting Unavailable Imamura, Yoichi Attending Unavailable Jabour, Vincent Consulting Unavailable Tillman, Joaquín Attending Unavailable Matt, Martin Chi Primary Care Unavailable Tillman, Joaquín Admitting Unavailable Akash, Gray Attending Unavailable Matt, Martin Chi Primary Care Unavailable Moses Gloria D.O. Consulting Unavailable Jabour, Vincent Consulting Unavailable Akash, Gray Consulting Unavailable Tillman, Joaquín Admitting Unavailable Moses Gloria D.O. Attending Unavailable Matt, Martin Chi Primary Care Unavailable Moses Gloria D.O. Consulting Unavailable Jabour, Vincent Consulting Unavailable Akash, Gray Consulting Unavailable Tillman, Joaquín Admitting Unavailable Anaya Everett NP-C Attending Unavailable Matt, Martin Chi Primary Care Unavailable Amber CarrizalesO. Consulting Unavailable Jabour, Vincent Consulting Unavailable Akash, Gray Consulting Unavailable Tillman, Joaquín Admitting Unavailable Moses Gloria D.O. Attending Unavailable Matt, Martin Chi Primary Care Unavailable Moses Gloria D.O. Consulting Unavailable Jabour, Vincent Consulting Unavailable Akash, Gray Consulting Unavailable Efrain Samuel Attending Unavailable Eliane Rodrigez Referring Unavailable Tillman, Joaquín Admitting Unavailable Akash, Gray Attending Unavailable Matt, Martin Chi Primary Care Unavailable Moses Gloria D.O. Consulting Unavailable Jabour, Vincent Consulting Unavailable Akash, Gray Consulting Unavailable Tillman, Joaquín Admitting Unavailable Matt, Martin Chi Primary Care Unavailable Amber CarrizalesO. Consulting Unavailable LowellelfPernell ibanez Attending Unavailable Jabour, Vincent Consulting Unavailable Imamura, Yoichi Consulting Unavailable Isckarus, Mansour Attending Unavailable Matt, Martin Chi Referring Unavailable Matt, Martin Chi Primary Care Unavailable Isckarus, Mansour Attending Unavailable Matt, Martin Chi Referring Unavailable Matt, Martin Chi Primary Care Unavailable Isckarus, Mansour Consulting Unavailable Isckarus, Mansour Attending Unavailable Isckarus, Mansour Referring Unavailable Matt, Martin Chi Primary Care Unavailable Matt, Martin Chi Primary Care Unavailable Joaquín Tillman Admitting Unavailable Ashelfah, Ghasem Attending Unavailable TillmanJoaquín Attending Unavailable Matt, Martin Chi Primary Care Unavailable Tillman, Jaoquín Admitting Unavailable Matt, Martin Chi Primary Care Unavailable Ashelfah, Ghasem Consulting Unavailable Ashelfah, Ghasem Attending Unavailable Matt, Martin Chi Attending Unavailable Matt, Martin Chi Primary Care Unavailable Eliane Laird Attending Unavailable Efrain Samuel Attending Unavailable Matt, Martin Chi Referring Unavailable Isckarus, Mansour Attending Unavailable Matt, Martin Chi Referring Unavailable Matt, Martin Chi Primary Care Unavailable Isckarus, Mansour Consulting Unavailable Matt, Martin Chi Attending Unavailable Matt, Martin Chi Referring Unavailable Matt, Martin Chi Primary Care Unavailable Isckarus, Mansour Attending Unavailable Matt, Martin Chi Referring Unavailable Matt, Martin Chi Primary Care Unavailable Isckarus, Mansour Consulting Unavailable Matt, Martin Chi Attending Unavailable Matt, Martin Chi Primary Care Unavailable CebulAnjali Attending Unavailable Matt, Martin Chi Referring Unavailable Matt, Martin Chi Primary Care Unavailable CebulAnjali Attending Unavailable Cebul Anjali Referring Unavailable Matt, Martin Chi Primary Care Unavailable CebuAnjali lund Attending Unavailable Matt, Martin Chi Referring Unavailable Matt, Martin Chi Primary Care Unavailable CebuAnjali lund Attending Unavailable Matt, Martin Chi Referring Unavailable Isckarus, Mansour Attending Unavailable Matt, Martin Chi Referring Unavailable Matt, Martin Chi Primary Care Unavailable Isckarus, Mansour Consulting Unavailable Matt, Martin Chi Attending Unavailable Matt, Martin Chi Primary Care Unavailable Matt, Martin Chi Attending Unavailable Matt, Martin Chi Referring Unavailable Matt, Martin Chi Primary Care Unavailable Matt, Martin Chi Attending Unavailable Matt, Martin Chi Referring Unavailable Matt, Martin Chi Primary Care Unavailable Matt, Martin Chi Attending Unavailable Matt, Martin Chi Primary Care Unavailable CLEINE CORREA Attending Unavailable MATT, MARTIN CHI Referring Unavailable HANK BROWN Attending Unavailable ANJALI BAUTISTA Referring Unavailable HANK BROWN Attending Unavailable ANJALI BAUTISTA Referring Unavailable CELINE CORREA Attending Unavailable MATT, MARTIN-CHI Referring Unavailable PROBLEMS PROBLEMS DATE TYPE CONDITION / CODE ATTENDING STATUS SOURCE 07/07/2018 Unknown D50.9 - Iron Isckarus, Active [place] deficiency anemia, [place] Community unspecified / Hospital D50.9(ICD-10) Repository 07/07/2018 Unknown I10 - Essential Matt, Martin Chi Active [place] (primary) Community hypertension / Hospital I10(ICD-10) Repository 06/13/2018 Active 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 Clinic Main tejon coronary [place] artery without Repository angina pectoris / I25.10(ICD-10) 06/13/2018 Active Essential (primary) LYHANK LOREDO P Active [facility] hypertension / Clinic Main I10(ICD-10) [place] Repository 06/13/2018 Active Cerebral infarction, HANK BROWN P Active [facility] unspecified / Clinic Main I63.9(ICD-10) [place] Repository 06/28/2017 Active Embolism and HANK BROWN P Active [facility] thrombosis of [facility] arteries of the [place] lower extremities / Repository I74.3(ICD-10) 06/14/2018 Active Occlusion and HANK BROWN P Active [facility] stenosis of [facility] bilateral carotid [place] arteries / Repository I65.23(ICD-10) 05/10/2018 Active Other iron HANK BROWN P Active [facility] deficiency anemias / Clinic Main D50.8(ICD-10) [place] Repository 05/10/2018 Active Type 2 diabetes HANK BROWN P Active [facility] mellitus without Clinic Main complications / [place] E11.9(ICD-10) Repository 05/10/2018 Active 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 / Clinic Main K58.2(ICD-10) [place] Repository 05/10/2018 Active Fibromyalgia / HANK BROWN Active [facility] M79.7(ICD-10) Clinic Main [place] Repository 05/10/2018 Active Obstructive sleep HANK BROWN P Active [facility] apnea (adult) Clinic Main (pediatric) / [place] G47.33(ICD-10) Repository 05/10/2018 Active Peripheral vascular LYHANK LOREDO P Active [facility] disease, unspecified Clinic Main / I73.9(ICD-10) [place] Repository 05/10/2018 Active Gastro-esophageal LYHANK LOREDO P Active [facility] reflux disease Clinic [facility] without esophagitis [place] / K21.9(ICD-10) Repository 05/10/2018 Active Mixed hyperlipidemia HANK BROWN P Active [facility] / E78.2(ICD-10) Clinic Main [place] Repository 05/10/2018 Active Hypothyroidism, LYFELIX LOREDON P Active [facility] unspecified / [facility] Main E03.9(ICD-10) [place] Repository 05/10/2018 Active Major depressive HANK BROWN Active [facility] disorder, recurrent, Clinic Main mild / F33.0(ICD-10) [place] Repository 04/20/2018 Unknown I65.23 - Occlusion Anjali Bautista Active [place] and stenosis of Community bilateral carotid Hospital arteries / Repository I65.23(ICD-10) 04/09/2018 Unknown I65.29 - Occlusion DianabuAnjali lund Active [place] and stenosis of Community unspecified carotid Hospital artery / Repository I65.29(ICD-10) 05/17/2018 Unknown R09.89 - Other CebulAnjali Active [place] specified symptoms Community and signs involving Hospital the circulatory and Repository respiratory systems / R09.89(ICD-10) 02/05/2018 Unknown F17.210 - Nicotine Isckarus, Active [place] dependence, On License Of [facility] cigarettes, Hospital uncomplicated / Repository F17.210(ICD-10) 12/30/2017 Unknown D64.9 - Anemia, Ashelfah, Active [place] unspecified / [place] Community D64.9(ICD-10) Hospital Repository 12/02/2017 Unknown R07.9 - Chest pain, Jimmie, Franklin Active [place] unspecified / Community R07.9(ICD-10) Hospital Repository 10/14/2017 Unknown I25.10 - Rodrigez, Active [place] Atherosclerotic [facility] heart disease of [facility] tejon coronary Repository artery without angina pectoris / I25.10(ICD-10) 10/02/2017 Unknown E55.9 - Vitamin D Matt, Martin Chi Active [place] deficiency, Community unspecified / Hospital E55.9(ICD-10) Repository 08/13/2017 Active Unknown / CELINE CORREA Active [facility] UNK(Unknown) Clinic Other [place] Repository 08/13/2017 Admitting Unknown / CELINE CORREA Active [facility] UNK(Unknown) [facility] Repository PROCEDURES PROCEDURES No Procedure Records FoundRESULTS RESULTS MRSA WOUND DNA BY Collected: 07/28/2018 Status: F Source: [place] [facility] 3[facility] Order Comment: Specimen Source? WOUND TYPE CODE TESTS RESULT OUT OF RANGE REFERENCE UNITS LAB L8200.1100 Negative Normal MRSA Negative RESULT LAB L8200.1150 Negative Normal SA RESULT NEGATIVE Performed By: #### L8200.1075 #### [facility] [address] [place], [address] Observed: 07/28/2018 Status: F Source: [place] CULTURE, WOUND 3:11 PM [facility] REPOSITORY Gram Stain Gram Stain 1+ White Blood Cells No organisms seen Wound Culture Possible skin contamination, further Identification and sensitivity will be performed only by physician's request. ORGANISM 1: Coag Negative Staph Amount Growth Rare Performed By: #### M100.1400 #### [facility] [address] [place], [address] HEPATOBILLIARY IMG Observed: 07/20/2018 Status: F Source: [place] W/PHARM INT 10:32 AM [facility] REPOSITORY [facility] [address] [place] [address] Hepatobilliary Img w/Pharm Int MR#: [id number] Acct: [id number] Name: ANGELES LARIOS Rep #: [id number] : 1960 F 58 From: Ralph Raymond DO PCP: Matt FAROOQ,Martin Perdue Status: REG CLI Study: Hepatobilliary Img w/Pharm Int Date of Exam: 07/20/18 Exam# [id number] Ordering Dr: Martin Gutierrez MD CLINICAL: 58-year-old female with reported history of right upper quadrant abdominal pain. RADIONUCLIDE HEPATOBILIARY SCINTIGRAPHY COMPARISON: Abdominal ultrasound report 07/09/2018 FINDINGS: Following the intravenous administration of 5.2 mCi of 99m Tc Mebrofenin, hepatobiliary images reveal: 1. Relatively prompt and homogeneous radiopharmaceutical concentration is noted by a normal sized liver. No parenchymal defects are identified. 2. Gallbladder activity is identified at 15 minutes post radiopharmaceutical administration. 3. Small intestinal tract is observed by 60 minutes following tracer injection. 4. Washout of the radiopharmaceutical by the hepatic parenchyma appears qualitatively normal. The patient was administered a fatty meal (8 ounces BOOST- 30 grams fat). The post fatty meal consumption gallbladder ejection fraction calculated at 29 minutes was noted to be 82.0 % (normal greater than 30%). ND/Hepatobilliary Img w/Pharm Int IMPRESSION: 1. NORMAL 99m Tc Mebrofenin hepatobiliary imaging examination with fatty meal ingestion. A. A gallbladder ejection fraction calculated to be greater than 30% following the administration of a consumed fatty meal makes the probability of functional hepatobiliary disease (gallbladder and/or sphincter of Oddi dyskinesia) and/or organic hepatobiliary disease (chronic acalculous cholecystitis and/or cystic duct syndrome) to be low. (Sunday and Faizan, J Nucl Med 43: 1603, 2002). Electronically Signed: Ralph Raymond DO at 22:42 EST Tel , Service support , CC: Martin Gutierrez MD Manager Servicing: Signed ABDOMEN LIMITED Observed: 07/09/2018 Status: F Source: [place] 9:15 AM [facility] REPOSITORY [facility] Imaging Services [address] [place] [address] Abdomen Limited MR#: [id number] Acct: [id number] Name: ANGELES LARIOS Rep #: [id number] : 1960 F 58 From: Mylene Sky MD PCP: Martin Gutierrez MD, Chi Status: REG CLI Study: Abdomen Limited Date of Exam: 07/09/18 Exam# [id number] Ordering Dr: Martin Gutierrez MD STUDY: ABDOMINAL ULTRASOUND - RIGHT UPPER QUADRANT REASON FOR VISIT: Female, 58 years old. Right upper quadrant pain. TECHNIQUE: Ultrasound evaluation of the right upper quadrant was performed with real-time and static macias-scale imaging. TECHNICAL QUALITY: Adequate. COMPARISON: None. FINDINGS: Liver: The liver measures 17.2 cm. There is increased echogenicity consistent with fatty infiltration. The bile ducts are within normal limits. There is hepatic color flow. The direction of portal flow is hepatopetal. There is no demonstrated mass lesion. Gallbladder: Normal distended gallbladder. The gallbladder wall measures 3.4 mm. There is a negative sonographic Walsh's sign. There is no pericholecystic fluid. There are no gallstones. Common Bile Duct (C.B.D.): The common bile duct measures 4.5 mm. Pancreas: Normal size of the head, body and tail of the pancreas. There is normal echogenicity of the pancreas. There is no demonstrated pancreatic mass or cyst. Right Kidney: Normal size of the right kidney. The right kidney measures 12.9 cm in length. Normal renal cortex. There is no demonstrated renal mass or cyst. There is no right hydronephrosis. US/Abdomen Limited IMPRESSION: Fatty infiltration of the liver. Mild gallbladder wall thickening with no associated pericholecystic fluid, sonographic Walsh's sign nor cholelithiasis; the wall thickening may be reactive. Electronically Signed: Mylene Sky MD at 11:02 EST Tel , Service support , CC: Martin Gutierrez MD Manager Servicing: Signed COMPREHENSIVE METABOLIC Collected: 07/05/2018 Status: F Source: [facility] 3:00 PM [facility] REPOSITORY TYPE CODE TESTS RESULT OUT OF RANGE REFERENCE UNITS LAB L501.0100 74-106 mg/dL High GLU 127 Result Comment: Fasting Glucose result greater than or equal to 126 mg/dL suggests DIABETES MELLITUS per A.D.A. criteria. Please note revised GLUCOSE reference range effective 2017. LAB L501.1000 7-18 mg/dL Normal BUN 9 LAB L501.1100 0.55-1.02 mg/dL Normal CREAT,SERUM 0.86 Result Comment: The validity of the calculated GFR AND GFRAA in patients over 70 years has not been determined. Clinical correlation is essential. LAB L501.1110 >60 mL/min Normal EST GFR 71 Result Comment: Non- GFR Calc LAB L501.1115 >60 mL/min Normal EST GFR - AA 86 Result Comment: GFR Calc LAB L501.1300 10-20 RATIO Normal BUN/CRE 10.4 LAB L501.1500 6.4-8.2 g/dL T Normal PROT 6.9 LAB L501.1800 3.2-5.0 g/dL Normal ALB 3.3 LAB L501.1950 2.2-4.2 g/dL Normal GLOB 3.6 LAB L501.2000 0.9-2.4 RATIO Normal A/G 0.9 LAB L501.2200 8.5-10.1 mg/dL Low CA 8.3 LAB L501.4100 15-37 U/L Low AST 14 LAB L501.4305 45-117 U/L Normal ALK P 115 LAB L501.4405 13-56 U/L Normal ALT 22 LAB L501.4600 0.20-1.00 mg/dL T Normal BILI 0.20 LAB L501.5300 136-145 mmol/L NA Normal 139 LAB L501.5600 3.5-5.1 mmol/L K Normal 4.1 LAB L501.5900 98-107 mmol/L CL Normal 106 LAB L501.6100 21.0-32.0 mmol/L Normal CO2 25.0 LAB L501.6200 5-15 Normal GAP 8 Performed By: #### L500.4050, L501.9520 #### [facility] [address] [place], [place], [id number] THYROID STIM HORMONE Collected: 07/05/2018 Status: F Source: [place] (TSH) 3:00 PM [facility] REPOSITORY TYPE CODE TESTS RESULT OUT OF RANGE REFERENCE UNITS LAB L501.9520 0.358-3.74 uIU/mL Normal TSH 1.69 Performed By: #### L500.4050, L501.9520 #### [facility] [address] [place], [address] CBC W/DIFF, AUTOMATED Collected: 07/05/2018 Status: F Source: [place] 3:00 PM [facility] REPOSITORY TYPE CODE TESTS RESULT OUT OF RANGE REFERENCE UNITS LAB L100.1000 4.4-11.0 K/mm3 Normal WBC 7.6 LAB L100.1200 4.2-5.4 M/mm3 Low RBC 3.84 LAB L100.1300 12.0-15.0 g/dl Low HGB 11.4 LAB L100.1400 37-47 % Normal HCT 37.4 LAB L100.1500 81-99 fL Normal MCV 97.4 LAB L100.1600 27.0-32.0 pg Normal MCH 29.7 LAB L100.1700 32-36 g/gl Low MCHC 30.5 LAB L100.1810 11.6-14.6 % Normal RDW CV 14.0 LAB L100.1820 35.1-43.9 fl High RDW SD 46.9 LAB L100.1900 150-450 K/mm3 Normal PLT 277 LAB L100.2000 6.2-12.0 fl Normal MPV 10.6 LAB L100.2100 47-70 % Normal NEUT% 55.2 LAB L100.2200 19-41 % Normal LY% 30.8 LAB L100.2300 0-10 % High MONO% 10.9 LAB L100.2400 0-5 % Normal EO% 2.1 LAB L100.2500 0-1 % Normal BASO% 0.7 LAB L100.2550 0.0-0.9 % Normal IM GRAN % 0.300 Result Comment: IG% - Immature Granulocytes (promyelocytes, myelocytes and metamyelocytes) > 1% indicates that a LEFT SHIFT is Present. LAB L100.2620 2.0-7.7 X10 3/uL Normal Absolute Neut 4.2 LAB L100.2720 0.83-4.51 X10 3/ul Normal Absolute Lymph 2.34 Performed By: #### L100.0100 #### [facility] [place], [place], [id number] ONCOLOGY VISIT REPORT Observed: 07/01/2018 Status: F Source: [place] 2:12 PM [facility] REPOSITORY [facility] [place] [address] OFFICE VISIT Date of Service: 07/01/18 1329 MR#: [id number] Acct: [id number] Name: ANGELES LARIOS Rep #: [id number] : 1960 From: Simon Ulloa MD Age/Sex: 58/F Location: [facility] Status: Signed - Problem List (1) Iron deficiency anemia Status: Chronic (2) Gastrointestinal bleed Status: Chronic Qualifiers: - Date of Service Date of Service:: 07/01/18 - Chief Complaint Anemia - History of Present Illness Patient is a 58-year-old female postmenopausal with significant atherosclerotic arterial disease on chronic anticoagulation with Coumadin and chronic with acute episodes of GI blood loss who has been on oral iron supplements since August 2017 (melena reported by patient prior to starting oral iron supplement in August 2017). She was hospitalized in November 2017 with acute GI bleed, melena and a hemoglobin of 5 g/dl She was transfused with packed red cells, given IV iron, and upper and lower GI endoscopies did not reveal any active bleeding. A capsule study is under consideration at this time. She is under the care of Dr. Ortiz and Cindy for these issues. - Past Medical/Social History Past Medical History Past Medical History: Anemia,Blood transfusion,GI bleed,Hearing problems,Heart disease,Hyperlipidemia, Hypertension,Sleep apnea,Stroke,Thrombophlebitis ,Thyroid disease,TIA,Postmenopausal,Fibromyalgia ,Hypercholesterolemia,Fatigue Other Past Medical History: Hx DVT Past Surgical History Surgical: Appendectomy,Tubal ligation,Cardiac stent Other Surgical History: Lt carotid endardectomy, removal of clot Rt leg, lt forearm surgery Social History Social History: No changes Smoking Status Current every day smoker Review of Systems Constitutional:: Reports: Weakness, Fatigue. Denies: Fever, Sweats, Weight loss, Appetite change, Chills Cardiovascular:: Denies: Chest pain, Palpitations, Dyspnea on exertion, Orthopnea, PND, Shortness of breath Respiratory: Denies: Cough, Hemoptysis, Shortness of Breath, Wheezing Gastrointestinal:: Denies: Abdominal pain, Nausea, Vomiting, Diarrhea, Constipation, Hematochezia Genitourinary: Denies: Hematuria Skin: Denies: Rash, Wounds Neurological:: Denies: Headache, Dizziness Psychiatric: Reports: - - Grieving the loss of her mother Vital Signs Height 5 ft 6 in Weight: 122.742 kg Weight in Pounds 270.6 lbs Pulse Ox 95 - Physical Exam General: Alert, Oriented x3, No apparent distress HEENT: Atraumatic, PERRLA, EOMI, Normocephalic Oropharynx:: Dry mucosa Neck:: Supple, Trachea midline. Negative for: JVD, bilateral Cardiac:: Regular rate, Regular rhythm, Normal S1, Normal S2. Negative for: Murmur Lungs: Clear to auscultation, Excusion symmetrical. Negative for: Rhonchi, Wheezes Extremities:: Negative for: Cyanosis, Edema Neurological: Neuro grossly intact Skin:: Negative for: Lesions, Rash, Petechiae, Ecchymosis Lymphatics:: Negative for: Cervical lymphadenopathy, Supraclavicular lymphadenopathy Laboratory Data: Laboratory Tests Hgb 5.7 L* 9.2 L Hct 21.7 L 32.2 L TIBC 515 H Iron Saturation 3.3 L Ferritin 3 L Hgb 11.2 L 12.4 Hct 36.8 L 39.6 TIBC 365 Iron Saturation 10.4 L Ferritin 9 Hgb 13.1 11.7 L Hct 41.2 37.4 TIBC Iron Saturation 24.2 Ferritin 49 Hgb Hct TIBC Iron Saturation 11.2 L Ferritin 8 Assessment and Plan 58-year-old female, postmenopausal with severe iron deficiency anemia due to acute and chronic GI blood loss, source not identified on endoscopies (November 2017, capsule study under consideration). Patient has been on oral iron supplements since August 2017, supplemented with IV iron (February-March 2018), and had anemia and iron stores have normalized since Recommendations: #1 continue oral iron supplement fci unless source of GI blood loss is identified and permanently eliminate. Advice 2 tablets daily depending on tolerance. #2 Supplement oral iron with IV infusion as guided by iron studies. Will prescribe IV Venofer 300 mg this month (June 2018) and will reassess in 3 months. #3 For cancer screening patient is up-to-date with mammography and CT chest screening. Impression and recommendations discussed. Primary Care Provider: Martin Gutierrez Referring Provider: Martin Gutierrez 07/01/18 1412 <Electronically signed by Simon Ulloa MD> Date Simon Ulloa MD Cosigner Signature: Date (if applicable) CC: Martin Gutierrez MD CBC W/DIFF, AUTOMATED Collected: 06/29/2018 Status: F Source: [place] 2:04 PM [facility] REPOSITORY Order Comment: Reason for Laboratory Test . TYPE CODE TESTS RESULT OUT OF RANGE REFERENCE UNITS LAB L100.1000 4.4-11.0 K/mm3 Normal WBC 7.2 LAB L100.1200 4.2-5.4 M/mm3 Low RBC 3.91 LAB L100.1300 12.0-15.0 g/dl Low HGB 11.7 LAB L100.1400 37-47 % Normal HCT 37.4 LAB L100.1500 81-99 fL Normal MCV 95.7 LAB L100.1600 27.0-32.0 pg Normal MCH 29.9 LAB L100.1700 32-36 g/gl Low MCHC 31.3 LAB L100.1810 11.6-14.6 % Normal RDW CV 13.5 LAB L100.1820 35.1-43.9 fl High RDW SD 46.0 LAB L100.1900 150-450 K/mm3 Normal PLT 258 LAB L100.2000 6.2-12.0 fl Normal MPV 10.0 LAB L100.2100 47-70 % Normal NEUT% 51.8 LAB L100.2200 19-41 % Normal LY% 34.6 LAB L100.2300 0-10 % High MONO% 11.0 LAB L100.2400 0-5 % Normal EO% 1.7 LAB L100.2500 0-1 % Normal BASO% 0.6 LAB L100.2550 0.0-0.9 % Normal IM GRAN % 0.300 Result Comment: IG% - Immature Granulocytes (promyelocytes, myelocytes and metamyelocytes) > 1% indicates that a LEFT SHIFT is Present. LAB L100.2620 2.0-7.7 X10 3/uL Normal Absolute Neut 3.7 LAB L100.2720 0.83-4.51 X10 3/ul Normal Absolute Lymph 2.48 Performed By: #### L100.0100 #### [facility] [address] [place], [place], [address] IRON+IRON BINDING Collected: 06/29/2018 Status: F Source: [facility] 2:04 PM [facility] REPOSITORY Order Comment: Reason for Laboratory Test . TYPE CODE TESTS RESULT OUT OF RANGE REFERENCE UNITS LAB L503.6075 250-450 ug/dL TIBC Normal 400 LAB L503.6150 50-170 ug/dL Low IRON 45 LAB L503.6250 15.0-55.0 % Low IRON SATURATION 11.2 Performed By: #### L503.6030, L503.6550 #### [facility] [address] [place], [address] FERRITIN Collected: 06/29/2018 Status: F Source: [place] 2:04 PM [facility] REPOSITORY Order Comment: Reason for Laboratory Test . TYPE CODE TESTS RESULT OUT OF RANGE REFERENCE UNITS LAB L503.6550 8-252 ng/mL Normal FERRITIN 8 Performed By: #### L503.6030, L503.6550 #### [facility] [address] [facility] [place], [address] CNOV Observed: 06/14/2018 Status: COMPLETED Source: [place] 10:45 AM [facility] REPOSITORY Office Visit (WINNIE) ANGELES LARIOS ([id number]) 1960 F Date Time Provider Department 06/14/18 10:45 AM HANK BROWN During your visit today, we recorded the following information about you: Temperature Pulse Respiration Blood pressure 98 degrees 58/minute 18/minute 148/72 Weight Height 126.6 kg 1.689 m Hank Brown MD 06/14/2018 11:46 AM Signed DATE OF SERVICE: 05/10/2018 She is sent by Dr. Anjali Bautista for evaluation of bilateral internal carotid 70% stenosis. She has had a history of bilateral carotid stenosis. In 2012, she had a left carotid endarterectomy after a stroke. Last year, she had a right arm embolus and was treated with an embolectomy. She also has had stents in her heart. She had a GI bleed, at which point her anticoagulation was stopped. She is now on dual antiplatelet. She has a family history in her mother of AFib, hypertension, hyperlipidemia and diabetes. She has no family history of aneurysm disease. She also has had an appendectomy. She had a recent outside carotid duplex that showed both carotids are 70% stenosed. She also had done a CT of the carotids. On her duplex, her right internal carotid velocities were 299/62 , the left were 200/56. She did bring her outside imaging for review. Physical Examination: Remarkable for a left neck cervical incision, but otherwise she has palpable pulses. She does not have a palpable aneurysm. When she had her left carotid endarterectomy, it was a bovine pericardial patch angioplasty. Impression/Plan: My plan is to review her images and see how to proceed. June 14, 2018 This office note has been dictated. MD Hank Esqueda MD 06/16/2018 1:13 PM Signed NAME: ANGELES LARIOS [facility] NO: [id number] DATE OF SERVICE: 06/14/2018 DATE OF : 1960 She came to see me. She was able to bring her duplex that she had done at [facility]. The carotid velocities were 299/69 on the right and 232/57 on the left, which would be consistent with a 60-79% stenosis. She brought her CAT scan that was read as really a tight stenosis on both sides. Looking at her CAT scan, I did not estimate her right carotid to be more than 60%. The left carotid is also just about 60%. Impression/Plan: I do not think either side needs fixed. The current guidelines suggest that in an asymptomatic patient, we would not fix it until it is greater than 80%. My plan is to repeat an ultrasound in six months' time. Because she still has some chest discomfort, I am actually going to get her set up to see one of our cardiologists to have them evaluate her heart status and go from there. I want to see her back in six months. Hank Brown M.D. SPL/089 Audio #: [id number] cc: Anjali Bautista MD [address] [phone] Martin Gutierrez MD [facility] [address] [address] Date Dictated: 06/14/2018 11:16:36 Date Typed: 06/15/2018 11:03:32 Date Revised: Podiatry Assistant: Transcribed Clinic Note (jennifer) ID: [id number] Author: HANK BROWN Signed by HANK BROWN MD on 06/16/2018 at 1:13 PM Document text: NAME: ANGELES LARIOS [facility]IN[facility] NO: [id number] DATE OF SERVICE: 06/14/2018 DATE OF : 1960 She came to see me. She was able to bring her duplex that she had done at [facility]. The carotid velocities were 299/69 on the right and 232/57 on the left, which would be consistent with a 60-79% stenosis. She brought her CAT scan that was read as really a tight stenosis on both sides. Looking at her CAT scan, I did not estimate her right carotid to be more than 60%. The left carotid is also just about 60%. Impression/Plan: I do not think either side needs fixed. The current guidelines suggest that in an asymptomatic patient, we would not fix it until it is greater than 80%. My plan is to repeat an ultrasound in six months' time. Because she still has some chest discomfort, I am actually going to get her set up to see one of our cardiologists to have them evaluate her heart status and go from there. I want to see her back in six months. Hank Brown M.D. SPL/089 Audio #: [id number] cc: Anjali Bautista MD [address] [place] [address] Martin Gutierrez MD [address] [place] [address] Date Dictated: 06/14/2018 11:16:36 Date Typed: 06/15/2018 11:03:32 Date Revised: Display document [id number] only Referring Provider: ANJALI BAUTISTA [[id number]] Allergies As of Date: 06/14/2018 Noted Allergy Reaction CODEINE 09/30/2012 14 - Other: See Comments Comments: somnulence LIPITOR (ATORVASTATIN) 06/14/2018 17 - Myalgia Wellbutrin (BUPROPION HCL) 09/08/2005 2 - Rash Date Reviewed: 06/14/2018 Reviewed by: Julianne Grigsby LPN - Fully Assessed Reason for Visit: Established Patient [175] Primary Visit Diagnosis:Carotid stenosis, asymptomatic, bilateral [I65.23] Other Visit Diagnoses:Essential hypertension [I10] Cerebrovascular accident (CVA), unspecified mechanism (HCC) [I63.9] Embolus of femoral artery (HCC) [I74.3] Mixed hyperlipidemia [E78.2] PVD (peripheral vascular disease) (HCC) [I73.9] Fibromyalgia [M79.7] Coronary artery disease involving tejon heart without angina pectoris, unspecified vessel or lesion type [I25.10] Prescriptions as of 06/14/2018 Sig: ROSUVASTATIN 40 MG TABLET Take 40 mg by mouth once laura* NITROGLYCERIN 0.4 MG SUBLINGU* Dissolve under the tongue as * TRAZODONE 50 MG TABLET Take 50 mg by mouth daily at * CLOPIDOGREL 75 MG TABLET Take 75 mg by mouth once laura* LEVOTHYROXINE 25 MCG TABLET Take 25 mcg by mouth once christiano* DULOXETINE 60 MG CAPSULE,MCKENZIE* Take 60 mg by mouth twice christiano* LISINOPRIL 20 MG TABLET Take 20 mg by mouth once laura* ISOSORBIDE MONONITRATE ER 30 * Take 60 mg by mouth once laura* OMEPRAZOLE 40 MG CAPSULE,MCKENZIE* Take 40 mg by mouth once laura* METOPROLOL TARTRATE 50 MG TAB* Take 50 mg by mouth twice christiano* Problem List As Of Date 06/14/2018 Noted Resolved Carotid stenosis, asymptomatic, bilateral [I65.*INVALID FOR* Embolus of femoral artery (HCC) [I74.3] INVALID FOR* Coronary artery disease involving tejon samano*INVALID FOR* More... Essential hypertension [I10] INVALID FOR* More... Mixed hyperlipidemia [E78.2] INVALID FOR* Episode of recurrent major depressive disorder *INVALID FOR* More... Acquired hypothyroidism [E03.9] INVALID FOR* More... GERD (gastroesophageal reflux disease) [K21.9] INVALID FOR* PVD (peripheral vascular disease) ([facility]) [I73.9] INVALID FOR* PATRICA (obstructive sleep apnea) [G47.33] INVALID FOR* Fibromyalgia [M79.7] INVALID FOR* Irritable bowel syndrome with both constipation*INVALID FOR* Diabetes mellitus (HCC) [E11.9] INVALID FOR* Iron deficiency anemia [D50.9] INVALID FOR* HTN (hypertension) [I10] CVA (cerebral vascular accident) (HCC) [I63.9] CAD (coronary artery disease) [I25.10] Medications Discontinued During This Encounter rosuvastatin (CRESTOR) 10 mg tablet 07/29/2017 06/14/2018 Class: Historical Med Route: ORAL Sig: Take 10 mg by mouth once daily. Disc: Changing Therapy/Dosage Form Letter Text Hank Brown MD [employer]iding [employer] In[employer] Department of Vascular Surgery Office: [phone] Appointments: [facility]/ [phone] Fax: [phone] June 17, 2018 Martin Gutierrez MD [address] [place] [address]/[address] [place] [phone] NAME: Angeles Larios [facility] NO.: [id number] : 1960 DATE OF SERVICE: 06/14/[address] Gutierrez: Your patient, Ms. Larios, was seen by me in the office today. The details of her history and treatment plan are included in my office note, a copy of which is available in [facility] for your interest and records. I appreciate the opportunity to participate in Ms. Larios's evaluation and treatment. If I can provide further information, please do not hesitate to contact me. Sincerely yours, Hank Brown MD (Signed electronically to expedite mailing) [facility]/ Cc: Anjali Bautista MD Angeles Ric Encounter Status:Closed by HANK BROWN MD on 06/14/18 PROGRESS Observed: 06/14/2018 Status: COMPLETED Source: [place] 12:00 AM [facility] REPOSITORY HNO ID: [id number] Author: Hank Brown Service: Vascular Surgery Author Type: Physician Type: Progress Notes Filed: 06/16/2018 1:13 PM Note Text: NAME: ANGELES LARIOS [facility] NO: [id number] DATE OF SERVICE: 06/14/2018 DATE OF : 1960 She came to see me. She was able to bring her duplex that she had done at [facility]. The carotid velocities were 299/69 on the right and 232/57 on the left, which would be consistent with a 60-79% stenosis. She brought her CAT scan that was read as really a tight stenosis on both sides. Looking at her CAT scan, I did not estimate her right carotid to be more than 60%. The left carotid is also just about 60%. Impression/Plan: I do not think either side needs fixed. The current guidelines suggest that in an asymptomatic patient, we would not fix it until it is greater than 80%. My plan is to repeat an ultrasound in six months' time. Because she still has some chest discomfort, I am actually going to get her set up to see one of our cardiologists to have them evaluate her heart status and go from there. I want to see her back in six months. Hank Brown M.D. [facility]/089 Audio #: [id number] cc: Anjali Bautista MD [address] [place] [address] Martin Gutierrez MD [address] [address] Date Dictated: 06/14/2018 11:16:36 Date Typed: 06/15/2018 11:03:32 Date Revised: PROGRESS Observed: 06/13/2018 Status: COMPLETED Source: [place] 5:42 PM [facility] REPOSITORY O ID: [id number] Author: Hank Brown Service: (none) Author Type: Physician Type: Progress Notes Filed: 06/14/2018 11:46 AM Note Text: DATE OF SERVICE: 05/10/2018 She is sent by Dr. Anjali Bautista for evaluation of bilateral internal carotid 70% stenosis. She has had a history of bilateral carotid stenosis. In 2012, she had a left carotid endarterectomy after a stroke. Last year, she had a right arm embolus and was treated with an embolectomy. She also has had stents in her heart. She had a GI bleed, at which point her anticoagulation was stopped. She is now on dual antiplatelet. She has a family history in her mother of AFib, hypertension, hyperlipidemia and diabetes. She has no family history of aneurysm disease. She also has had an appendectomy. She had a recent outside carotid duplex that showed both carotids are 70% stenosed. She also had done a CT of the carotids. On her duplex, her right internal carotid velocities were 299/62 , the left were 200/56. She did bring her outside imaging for review. Physical Examination: Remarkable for a left neck cervical incision, but otherwise she has palpable pulses. She does not have a palpable aneurysm. When she had her left carotid endarterectomy, it was a bovine pericardial patch angioplasty. Impression/Plan: My plan is to review her images and see how to proceed. June 14, 2018 This office note has been dictated. Hank Brown MD CNOV Observed: 05/10/2018 Status: COMPLETED Source: [place] 1:00 PM [facility] REPOSITORY Office Visit (WINNIE) RICANGELES Carson ([id number]) 1960 F Date Time Provider Department 05/10/18 1:00 PM HANK BROWN During your visit today, we recorded the following information about you: Temperature Pulse Respiration Blood pressure 98.1 degrees 59/minute 18/minute 123/57 Weight Height 123.4 kg 1.676 m Hank Brown MD 05/10/2018 1:18 PM Signed VASCULAR SURGERY INITIAL CONSULT SERVICE DATE: 05/10/2018 SERVICE TIME: 12:37 PM PRIMARY CARE PHYSICIAN: Martin Gutierrez MD REFERRING PROVIDER: Anjali Bautista MD [address] [facility] [id number] Consult requested for an opinion regarding the evaluation and treatment of the above. My final impression and recommendations will be communicated back to the requesting physician by way of the shared medical record or letter via US mail. CHIEF COMPLAINT/HISTORY OF PRESENT ILLNESS: Chief Complaint: bilateral carotid stenosis History of Present Illness: Angeles Larios is a 58 year old female presenting with bilateral carotid stenosis. PMH CAD S/p coronary stent x3 (2008), carotid stenosis s/p LCEA (2012), previous tobacco abuse, HTN, HLD, RLE ischemia s/p R femoral embolectomy unclear source. Denies TIA, CVA, amaurosis fugax. Right hand dominant. Had TIA 2012 underwent LCEA for symptomatic stenosis. Has been under duplex surviellance for bilateral carotid stenosis since that time. Worsening velocities on recent duplex imaging. ELYSIA PSV 289, EDV 69; LICA PSV 272, EDV 56. Had RLE acute limb ischemia last year with R femoral embolectomy (unclear source of ischemia) and was placed on coumadin. 2-3 months ago anemia requiring hospital admission and was transfused 3U pRBC. Her bleeding source on coumadin was unclear; decision was made to stop coumadin and resume plavix. Denies claudication in calves, thighs, buttocks. Denies rest pain, gangrene. Does get swelling BLE worse LLE and worse end of the day. Reports she is moderately active but gets intermittent angina with ?SOB on exertion. PAST MEDICAL/SURGICAL/FAMILY/SOCIAL HISTORY PAST MEDICAL HISTORY Diagnosis Date - Acquired hypothyroidism 05/10/2018 On levothyroxine - CAD (coronary artery disease) - Coronary artery disease involving tejon coronary artery of tejon heart without angina pectoris 06/27/2017 ASA, plavix - CVA (cerebral vascular accident) ([facility]) - Diabetes mellitus ([facility]) 05/10/2018 - Embolus of femoral artery ([facility]) 06/25/2017 - Episode of recurrent major depressive disorder ([facility]) 05/10/2018 Duloxetine,wellbutrin, varenicline - Essential hypertension 06/27/2017 On metorpolol tartrate, lisinopril, isosorbide mononitrate ER - Fibromyalgia 05/10/2018 - GERD (gastroesophageal reflux disease) 05/10/2018 - HTN (hypertension) - Irritable bowel syndrome with both constipation and diarrhea 05/10/2018 - Mixed hyperlipidemia 06/27/2017 - Occlusion and stenosis of carotid artery without mention of cerebral infarction 09/06/2012 - PATRICA (obstructive sleep apnea) 05/10/2018 - PVD (peripheral vascular disease) ([facility]) 05/10/2018 - Snoring - Stroke ([facility]) 07/05 PAST SURGICAL HISTORY Procedure Laterality Date - APPENDECTOMY 99 - INSERT CATH,ART,PERCUT,SHORTTERM 10-13-12 RIGHT - PAST SURGICAL HISTORY OF 2008 cardiac stents x 3 placed - PAST SURGICAL HISTORY OF 06/25/2017 Rt [employer] embolectomy - THROMBOENDARTECTMY NECK,NECK INCIS 10-13-12 LEFT - TUBAL LIGATION HX 90 FAMILY HISTORY Problem Relation Age of Onset - Coronary Artery Disease Father - Heart Father - Hypertension Father - Coronary Artery Disease Brother - Coronary Artery Disease Paternal Grandfather - Heart Paternal Grandfather - Diabetes Mother - Hypertension Mother - Diabetes Brother - Heart Brother - Heart Maternal Uncle - Heart Paternal Aunt - Hypertension Brother SOCIAL HISTORYSocial History Marital status: Spouse name: Years of education: Number of children: Social History Main Topics Smoking status: Former Smoker Packs/day: 0.50 Years: 40.00 Types: Cigarettes Quit date: 04/09/2018 Smokeless tobacco: Never Used Alcohol use: No Comment: quit 2018 Drug use: No Other Topics Concern Service No Blood Transfusions No Caffeine Concern No Occupational Exposure No Hobby Hazards No Sleep Concern Yes Stress Concern No Weight Concern No Special Diet No Back Care No Exercise Yes Bike Helmet Yes Seat Belt Yes Self-Exams Yes MEDICATIONS/ALLERGIES Current Outpatient Prescriptions: traZODone (DESYREL) 50 mg tablet Take 50 mg by mouth daily at bedtime. Disp: Rfl: clopidogrel (PLAVIX) 75 mg tablet once daily. Disp: Rfl: levothyroxine (SYNTHROID) 25 mcg tablet Take 25 mcg by mouth once daily. Disp: Rfl: rosuvastatin (CRESTOR) 10 mg tablet Take 10 mg by mouth once daily. Disp: Rfl: DULoxetine (CYMBALTA) 60 mg capsule Take 60 mg by mouth twice daily. Disp: Rfl: lisinopril (ZESTRIL, PRINIVIL) 20 mg tablet Take 20 mg by mouth once daily. Disp: Rfl: isosorbide mononitrate ER (IMDUR) 30 mg 24 hr tablet Take 60 mg by mouth once daily. Disp: Rfl: Omeprazole 40 mg capsule Take 40 mg by mouth once daily as needed (for acid reflux). Disp: Rfl: METOPROLOL TARTRATE, SHORT ACTING, 50 mg tablet twice daily. Disp: Rfl: No current facility-administered medications for this visit. ALLERGIES Allergen Reactions - Codeine Other: See Comments somnulence - Cxqylgc-Ygz-Ubp Red* Other: See Comments Leg cramps REVIEW OF SYSTEMS Constitutional: No weight loss, malaise or fevers. HEENT: Negative for frequent or significant headaches, No changes in hearing or vision, no nose bleeds or other nasal problems Respiratory: Negative for cough, wheezing, or shortness of breath Cardiovascular: Negative for chest pain or palpitations, + LLE swelling > RLE Gatrointestinal: Negative for abdominal discomfort, blood in stools or black stools or change in bowel habits Genitourinary: No history of dysuria, frequency, or incontinence and No difficulty urination, nocturia >1 times per night; + hematuria Musculoskeletal: Positive for joint pain or swelling, back pain or muscle pain (stable) Endocrine: Negative for cold or heat intolerance, polyuria, polydipsia and goiter Hematology/Lymphatic: Negative for prolonged bleedingor swollen nodes; + easy bruising AND bleeding (antiplatelets) Neurologic: No history or headaches, syncope, paralysis, seizures or tremors Integumentary: Negative for lesions, itching; + rash hands (few weeks ago) PHYSICAL EXAM VITALS: BP 123/57 Pulse 59 Temp (Src) 98.1 (Temporal Artery) Resp 18 Ht 5' 6 (1.68m) Wt 272 lb (123.4kg) SpO2 95% BMI 43.92 kg/(m2). General: Alert and oriented, No acute distress, Obese Integumentary: Normal color, no rash, no lesions. HEENT: EOM, pupils equal, round and reactive. Well healed L neck carotid incision. No carotid bruits. Cardiovascular: Normal S1 AND S2, no rubs, murmurs or gallops. No JVD., Pulse regular. Lungs: Normal breath sounds, no wheezes or crackles., No chest deformities or chest wall tenderness. Abdomen: soft, non-tender, no rigidity., No masses or organomegaly. Neurological: Normal cognition and motor skills. Gait normal. No weakness or sensory deficit. Vascular: carotid palp 2+, brachial palp 2+, radial palp 2+, ulnar palp 1+, femoral palp 2+, popliteal palp 1+, DP palp 2+, palp PT 2+ ASSESSMENT 58yoF with asymptomatic moderate ELYSIA stenosis AND asymptomatic moderate restenosis LICA s/p LCEA. Neurointact Diagnostic tests reviewed for today's visit: Most recent imaging -- carotid duplex PLAN/RECOMMENDATIONS Continue Medical Management Obtain and review OSH CTA Head AND Neck Continue daily ASA, plavix, statin SIGNATURE: Hank Brown MD PATIENT NAME: Angeles Larios DATE: May 10, 2018 TIME: 12:37 PM [facility] STAFF PHYSICIAN NOTE OF PERSONAL INVOLVEMENT IN CARE Vascular STAFF - Kevin I have reviewed the documentation above obtained and documented by the Fellow and have reviewed and updated the problem list as appropriate. I have personally participated in the sánchez component and physical exam and have discussed the case and management of the patient's care. The following comments revise or confirm relevant sánchez components. IMPRESSION/PLAN: This office note has been dictated. STAFF PHYSICIAN: Hank Brown MD PAGER: [phone] DATE OF SERVICE: May 10, 2018 TIME OF SERVICE: 1:17 PM Referring Provider: ANJALI BAUTISTA [[id number]] Allergies As of Date: 05/10/2018 Noted Allergy Reaction CODEINE 09/30/2012 14 - Other: See Comments Comments: somnulence [id number] REDUCTASE INHIBIT*10/25/2014 14 - Other: See Comments Comments: Leg cramps Date Reviewed: 05/10/2018 Reviewed by: Justyna Mckinley Ma - Fully Assessed Reason for Visit: New Patient Evaluation [154] Visit Diagnoses:Mild episode of recurrent major depressive disorder (HCC) [F33.0] Acquired hypothyroidism [E03.9] Essential hypertension [I10] Mixed hyperlipidemia [E78.2] Gastroesophageal reflux disease without esophagitis [K21.9] Coronary artery disease involving tejon coronary artery of tejon heart without angina pectoris [I25.10] PVD (peripheral vascular disease) (HCC) [I73.9] PATRICA (obstructive sleep apnea) [G47.33] Fibromyalgia [M79.7] Irritable bowel syndrome with both constipation and diarrhea [K58.2] Type 2 diabetes mellitus without complication, without long-term current use of insulin (HCC) [E11.9] Iron deficiency anemia secondary to inadequate dietary iron intake [D50.8] Prescriptions as of 05/10/2018 Sig: TRAZODONE 50 MG TABLET Take 50 mg by mouth daily at * CLOPIDOGREL 75 MG TABLET once daily. LEVOTHYROXINE 25 MCG TABLET Take 25 mcg by mouth once christiano* ROSUVASTATIN 10 MG TABLET Take 10 mg by mouth once laura* DULOXETINE 60 MG CAPSULE,MCKENZIE* Take 60 mg by mouth twice christiano* LISINOPRIL 20 MG TABLET Take 20 mg by mouth once laura* ISOSORBIDE MONONITRATE ER 30 * Take 60 mg by mouth once laura* OMEPRAZOLE 40 MG CAPSULE,MCKENZIE* Take 40 mg by mouth once laura* METOPROLOL TARTRATE 50 MG TAB* twice daily. Medication notes this encounter CLOPIDOGREL 75 MG TABLET >> Justyna Mckinley Ma 05/10/2018 12:32 PM >> JUSTYNA MCKINLEY MA May 10, 2018 12:32 PM Problem List As Of Date 05/10/2018 Noted Resolved Occlusion and stenosis of carotid artery withou*INVALID FOR* Embolus of femoral artery ([facility]) [I74.3] INVALID FOR* Coronary artery disease involving tejon saamno*INVALID FOR* More... Essential hypertension [I10] INVALID FOR* More... Mixed hyperlipidemia [E78.2] INVALID FOR* Episode of recurrent major depressive disorder *INVALID FOR* More... Acquired hypothyroidism [E03.9] INVALID FOR* More... GERD (gastroesophageal reflux disease) [K21.9] INVALID FOR* PVD (peripheral vascular disease) ([facility]) [I73.9] INVALID FOR* PATRICA (obstructive sleep apnea) [G47.33] INVALID FOR* Fibromyalgia [M79.7] INVALID FOR* Irritable bowel syndrome with both constipation*INVALID FOR* Diabetes mellitus ([facility]) [E11.9] INVALID FOR* Iron deficiency anemia [D50.9] INVALID FOR* Medications Discontinued During This Encounter warfarin (COUMADIN) 1 mg tablet 08/08/2017 05/10/2018 Class: Historical Med Sig: Disc: Course of therapy completed warfarin (COUMADIN) 5 mg tablet 7 ta* 0 06/28/2017 05/10/2018 Class: Print RX Route: ORAL Sig: Take 1 tablet by mouth daily as directed. Patient taking differently: Take 5 mg by mouth daily as directed. Taking 7.5 mg daily Disc: Course of therapy completed warfarin (COUMADIN) 6 mg tablet 08/08/2017 05/10/2018 Class: Historical Med Sig: Disc: Duplicate Entry DULoxetine (CYMBALTA) 30 mg capsule 06/22/2017 05/10/2018 Class: Historical Med Sig: Disc: Duplicate Entry cephALEXin (KEFLEX) 500 mg capsule 04/20/2017 05/10/2018 Class: Historical Med Sig: Disc: Duplicate Entry buPROPion SR (ZYBAN SR; WELLBUTRIN S* 07/01/2017 05/10/2018 Class: Historical Med Sig: Disc: Changing Therapy/Dosage Form amoxicillin-clavulanic acid (AUGMENT* 07/01/2017 05/10/2018 Class: Historical Med Sig: Disc: Course of therapy completed aspirin, enteric coated (ASPIRIN, EN* 30 t* 1 06/29/2017 05/10/2018 Class: Print RX Route: ORAL Sig: Take 1 tablet by mouth once daily. Disc: Course of therapy completed Encounter Status:Closed by HANK BROWN MD on 05/10/18 HISTORY PHYSICAL Observed: 05/10/2018 Status: COMPLETED Source: [place] 12:37 PM [facility] REPOSITORY HNO ID: [id number] Author: Hank Brown Service: (none) Author Type: Physician Type: HANDP Filed: 05/10/2018 1:18 PM Note Text: VASCULAR SURGERY INITIAL CONSULT SERVICE DATE: 05/10/2018 SERVICE TIME: 12:37 PM PRIMARY CARE PHYSICIAN: Martin Gutierrez MD REFERRING PROVIDER: Anjali Bautista MD [address] [facility] [id number] Consult requested for an opinion regarding the evaluation and treatment of the above. My final impression and recommendations will be communicated back to the requesting physician by way of the shared medical record or letter via US mail. CHIEF COMPLAINT/HISTORY OF PRESENT ILLNESS: Chief Complaint: bilateral carotid stenosis History of Present Illness: Angeles Larios is a 58 year old female presenting with bilateral carotid stenosis. PMH CAD S/p coronary stent x3 (2008), carotid stenosis s/p LCEA (2012), previous tobacco abuse, HTN, HLD, RLE ischemia s/p R femoral embolectomy unclear source. Denies TIA, CVA, amaurosis fugax. Right hand dominant. Had TIA 2012 underwent LCEA for symptomatic stenosis. Has been under duplex surviellance for bilateral carotid stenosis since that time. Worsening velocities on recent duplex imaging. ELYSIA PSV 289, EDV 69; LICA PSV 272, EDV 56. Had RLE acute limb ischemia last year with R femoral embolectomy (unclear source of ischemia) and was placed on coumadin. 2- 3 months ago anemia requiring hospital admission and was transfused 3U pRBC. Her bleeding source on coumadin was unclear; decision was made to stop coumadin and resume plavix. Denies claudication in calves, thighs, buttocks. Denies rest pain, gangrene. Does get swelling BLE worse LLE and worse end of the day. Reports she is moderately active but gets intermittent angina with ?SOB on exertion. PAST MEDICAL/SURGICAL/FAMILY/SOCIAL HISTORY PAST MEDICAL HISTORY Diagnosis Date - Acquired hypothyroidism 05/10/2018 On levothyroxine - CAD (coronary artery disease) - Coronary artery disease involving tejon coronary artery of tejon heart without angina pectoris 06/27/2017 ASA, plavix - CVA (cerebral vascular accident) ([facility]) - Diabetes mellitus ([facility]) 05/10/2018 - Embolus of femoral artery ([facility]) 06/25/2017 - Episode of recurrent major depressive disorder ([facility]) 05/10/2018 Duloxetine,wellbutrin, varenicline - Essential hypertension 06/27/2017 On metorpolol tartrate, lisinopril, isosorbide mononitrate ER - Fibromyalgia 05/10/2018 - GERD (gastroesophageal reflux disease) 05/10/2018 - HTN (hypertension) - Irritable bowel syndrome with both constipation and diarrhea 05/10/2018 - Mixed hyperlipidemia 06/27/2017 - Occlusion and stenosis of carotid artery without mention of cerebral infarction 09/06/2012 - PATRICA (obstructive sleep apnea) 05/10/2018 - PVD (peripheral vascular disease) ([facility]) 05/10/2018 - Snoring - Stroke ([facility]) 07/05 PAST SURGICAL HISTORY Procedure Laterality Date - APPENDECTOMY 99 - INSERT CATH,ART,PERCUT,SHORTTERM 10-13-12 RIGHT - PAST SURGICAL HISTORY OF 2008 cardiac stents x 3 placed - PAST SURGICAL HISTORY OF 06/25/2017 Rt [employer] embolectomy - THROMBOENDARTECTMY NECK,NECK INCIS 10-13-12 LEFT - TUBAL LIGATION HX 90 FAMILY HISTORY Problem Relation Age of Onset - Coronary Artery Disease Father - Heart Father - Hypertension Father - Coronary Artery Disease Brother - Coronary Artery Disease Paternal Grandfather - Heart Paternal Grandfather - Diabetes Mother - Hypertension Mother - Diabetes Brother - Heart Brother - Heart Maternal Uncle - Heart Paternal Aunt - Hypertension Brother SOCIAL HISTORYSocial History Marital status: Spouse name: Years of education: Number of children: Social History Main Topics Smoking status: Former Smoker Packs/day: 0.50 Years: 40.00 Types: Cigarettes Quit date: 04/09/2018 Smokeless tobacco: Never Used Alcohol use: No Comment: quit 2018 Drug use: No Other Topics Concern Service No Blood Transfusions No Caffeine Concern No Occupational Exposure No Hobby Hazards No Sleep Concern Yes Stress Concern No Weight Concern No Special Diet No Back Care No Exercise Yes Bike Helmet Yes Seat Belt Yes Self-Exams Yes MEDICATIONS/ALLERGIES Current Outpatient Prescriptions: traZODone (DESYREL) 50 mg tablet Take 50 mg by mouth daily at bedtime. Disp: Rfl: clopidogrel (PLAVIX) 75 mg tablet once daily. Disp: Rfl: levothyroxine (SYNTHROID) 25 mcg tablet Take 25 mcg by mouth once daily. Disp: Rfl: rosuvastatin (CRESTOR) 10 mg tablet Take 10 mg by mouth once daily. Disp: Rfl: DULoxetine (CYMBALTA) 60 mg capsule Take 60 mg by mouth twice daily. Disp: Rfl: lisinopril (ZESTRIL, PRINIVIL) 20 mg tablet Take 20 mg by mouth once daily. Disp: Rfl: isosorbide mononitrate ER (IMDUR) 30 mg 24 hr tablet Take 60 mg by mouth once daily. Disp: Rfl: Omeprazole 40 mg capsule Take 40 mg by mouth once daily as needed (for acid reflux). Disp: Rfl: METOPROLOL TARTRATE, SHORT ACTING, 50 mg tablet twice daily. Disp: Rfl: No current facility-administered medications for this visit. ALLERGIES Allergen Reactions - Codeine Other: See Comments somnulence - Zdzewbs-Ror-Mdm Red* Other: See Comments Leg cramps REVIEW OF SYSTEMS Constitutional: No weight loss, malaise or fevers. HEENT: Negative for frequent or significant headaches, No changes in hearing or vision, no nose bleeds or other nasal problems Respiratory: Negative for cough, wheezing, or shortness of breath Cardiovascular: Negative for chest pain or palpitations, + LLE swelling > RLE Gatrointestinal: Negative for abdominal discomfort, blood in stools or black stools or change in bowel habits Genitourinary: No history of dysuria, frequency, or incontinence and No difficulty urination, nocturia >1 times per night; + hematuria Musculoskeletal: Positive for joint pain or swelling, back pain or muscle pain (stable) Endocrine: Negative for cold or heat intolerance, polyuria, polydipsia and goiter Hematology/Lymphatic: Negative for prolonged bleedingor swollen nodes; + easy bruising AND bleeding (antiplatelets) Neurologic: No history or headaches, syncope, paralysis, seizures or tremors Integumentary: Negative for lesions, itching; + rash hands (few weeks ago) PHYSICAL EXAM VITALS: BP 123/57 Pulse 59 Temp (Src) 98.1 (Temporal Artery) Resp 18 Ht 5' 6 (1.68m) Wt 272 lb (123.4kg) SpO2 95% BMI 43.92 kg/(m2). General: Alert and oriented, No acute distress, Obese Integumentary: Normal color, no rash, no lesions. HEENT: EOM, pupils equal, round and reactive. Well healed L neck carotid incision. No carotid bruits. Cardiovascular: Normal S1 AND S2, no rubs, murmurs or gallops. No JVD., Pulse regular. Lungs: Normal breath sounds, no wheezes or crackles., No chest deformities or chest wall tenderness. Abdomen: soft, non-tender, no rigidity., No masses or organomegaly. Neurological: Normal cognition and motor skills. Gait normal. No weakness or sensory deficit. Vascular: carotid palp 2+, brachial palp 2+, radial palp 2+, ulnar palp 1+, femoral palp 2+, popliteal palp 1+, DP palp 2+, palp PT 2+ ASSESSMENT 58yoF with asymptomatic moderate ELYSIA stenosis AND asymptomatic moderate restenosis LICA s/p LCEA. Neurointact Diagnostic tests reviewed for today's visit: Most recent imaging -- carotid duplex PLAN/RECOMMENDATIONS Continue Medical Management Obtain and review OSH CTA Head AND Neck Continue daily ASA, plavix, statin SIGNATURE: Hank Brown MD PATIENT NAME: Angeles Larios DATE: May 10, 2018 TIME: 12:37 PM [facility] STAFF PHYSICIAN NOTE OF PERSONAL INVOLVEMENT IN CARE Vascular STAFF - Kevin I have reviewed the documentation above obtained and documented by the Fellow and have reviewed and updated the problem list as appropriate. I have personally participated in the sánchze component and physical exam and have discussed the case and management of the patient's care. The following comments revise or confirm relevant sánchez components. IMPRESSION/PLAN: This office note has been dictated. STAFF PHYSICIAN: Hank Brown MD PAGER: [phone] DATE OF SERVICE: May 10, 2018 TIME OF SERVICE: 1:17 PM [facility] Observed: 05/10/2018 Status: COMPLETED Source: [place] 12:00 AM [facility] REPOSITORY HNO ID: [id number] Author: Hank Brown Service: Vascular Surgery Author Type: Physician Type: Letter Filed: 05/13/2018 1:29 PM Note Text: Hank Brown MD Gliding [employer] In[employer] Department of Vascular Surgery [address] [place] [address] Office: [phone] Appointments: [facility]/ [phone] Fax: [phone] May 10, 2018 Anjali Bautista M.D. [facility] [place] [address] NAME: ANGELES LARIOS [facility] NO: [id number] : 1960 DATE OF SERVICE: 05/10/2018 Dear Elan: I had the pleasure of seeing Mr. Angeles Larios for carotid disease. Unfortunately, we do not have her CT scan for review. I am going to see if she can try and get it for us. Otherwise, we will see if you can mail me a copy, but with her having no symptoms I would not recommend doing anything unless it is more than 80%. Sincerely, Hank Brown M.D. (Signed electronically to expedite mailing) SPL/089 Audio #: [id number] Date Dictated: 05/10/2018 13:00:42 Date Typed: 05/11/2018 14:08:05 Date Revised: PROGRESS Observed: 05/10/2018 Status: COMPLETED Source: [place] 12:00 AM [facility] REPOSITORY HNO ID: [id number] Author: Hank Brown Service: Vascular Surgery Author Type: Physician Type: Progress Notes Filed: 05/11/2018 2:40 PM Note Text: NAME: ANGELES LARIOS [facility] NO: [id number] DATE OF SERVICE: 05/10/2018 DATE OF : 1960 She is sent by Dr. Anjali Bautista for evaluation of bilateral internal carotid 70% stenosis. She has had a history of bilateral carotid stenosis. In 2012, she had a left carotid endarterectomy after a stroke. Last year, she had a right arm embolus and was treated with an embolectomy. She also has had stents in her heart. She had a GI bleed, at which point her anticoagulation was stopped. She is now on dual antiplatelet. She has a family history in her mother of AFib, hypertension, hyperlipidemia and diabetes. She has no family history of aneurysm disease. She also has had an appendectomy. She had a recent outside carotid duplex that showed both carotids are 70% stenosed. She also had done a CT of the carotids. On her duplex, her right internal carotid velocities were 299/62 , the left were 200/56. She did bring her outside imaging for review. Physical Examination: Remarkable for a left neck cervical incision, but otherwise she has palpable pulses. She does not have a palpable aneurysm. When she had her left carotid endarterectomy, it was a bovine pericardial patch angioplasty. Impression/Plan: My plan is to review her images and see how to proceed. Hank Brown M.D. SPL/089 Audio #: [id number] Date Dictated: 05/10/2018 12:46:23 Date Typed: 05/11/2018 13:54:28 Date Revised: PROGRESS Observed: 05/10/2018 Status: COMPLETED Source: [place] 12:00 AM [facility] REPOSITORY HNO ID: [id number] Author: Hank Brown Service: Vascular Surgery Author Type: Physician Type: Progress Notes Filed: 05/11/2018 2:40 PM Note Text: NAME: ANGELES LARIOS [facility] NO: [id number] DATE OF SERVICE: 05/10/2018 DATE OF : 1960 We were able to see a CAT scan from 07/13/2015, which just shows some atherosclerosis to both common iliac arteries, her distal abdominal aorta and femoral arteries, but very poorly timed contrasted scan with both oral contrast. We also have a copy of her carotid duplex, which the velocities would put her at potentially less than 80% but more than 60% bilaterally. Unfortunately, what we do not have is the CTA of her neck from March 2018. Impression/Plan: My plan is to have the patient send me the CAT scan and mail me the CD for review. My plan is to see if we can get her images for review. We will set up an appointment in 3-4 weeks with no tests. Hopefully before then, either Dr. Bautista or the patient can have the disk sent to me for review. If it is less than 80%, I am going to recommend she have another imaging study in six months' time either by myself or Dr. Bautista. Hank Brown M.D. [facility]/089 Audio #: [id number] cc: Martin Gutierrez MD [address] [facility] [address] [place] [address] Date Dictated: 05/10/2018 13:00:42 Date Typed: 05/11/2018 14:05:43 Date Revised: SURGERY VISIT REPORT Observed: 04/20/2018 Status: F Source: [place] 3:56 PM [facility] REPOSITORY [facility] [address] [place] [address]. [address] [place] [address] OFFICE VISIT Date of Service: 04/20/18 MR#: [id number] Acct: [id number] Name: ANGELES LARIOS Rep #: [id number] : 1960 Provider: Anjali Bautista MD Age/Sex: 58/F Location: [facility] Status: Signed Intake Intake Visit Reasons: Discuss CT Results Chief Complaint: Anemia 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 Is patient in pain?: No Allergies bupropion [From Wellbutrin] Adverse Reaction (Severe, Verified 04/20/18 14:52) Rash codeine Adverse Reaction (Severe, Verified 04/20/18 14:52) Other Osnyxra-Yax-Moe Reductase Inhibitor Adverse Reaction (Severe, Verified 04/20/18 14:52) Other Medications duloxetine 60 mg capsule,delayed release 60 mg PO BID cap 07/27/17 [History Confirmed 04/20/18] nitroglycerin 0.4 mg sublingual tablet 0.4 mg SUBLINGUAL Q5- 15M PRN #25 tab 10/14/17 [Rx Confirmed 04/20/18] Levothyroxine [Synthroid] 25 mcg PO DAILY 11/30/17 [History Confirmed 04/20/18] Metoprolol Tartrate [Lopressor (beta linn)] 50 mg PO BID 12/01/17 [History Confirmed 04/20/18] Ondansetron HCl [Zofran] 4 mg PO Q6H PRN PRN #20 tab 01/05/18 [Rx Confirmed 04/20/18] clopidogrel 75 mg tablet 75 mg PO QDAY 02/09/18 [History Confirmed 04/20/18] lisinopril 20 mg tablet 20 mg PO QDAY #90 tab 02/09/18 [Rx Confirmed 04/20/18] bupropion HCl SR 100 mg tablet,12 hr sustained-release 100 mg PO BID 04/09/18 [History Confirmed 04/20/18] isosorbide mononitrate ER 60 mg tablet,extended release 24 hr 60 mg PO QDAY 04/09/18 [History Confirmed 04/20/18] omeprazole 40 mg capsule,delayed release 40 mg PO QDAY cap 04/09/18 [History Confirmed 04/20/18] polysaccharide iron complex 150 mg iron capsule 300 mg PO QDAY cap 04/09/18 [History Confirmed 04/20/18] rosuvastatin 40 mg tablet 40 mg PO QDAY 04/09/18 [History Confirmed 04/20/18] varenicline 1 mg tablet 1 mg PO BID 04/09/18 [History Confirmed 04/20/18] PFS Medical History Bilateral carotid artery stenosis (Acute) Peripheral vascular disease (Chronic) Nausea AND vomiting (Acute) Diarrhea (Acute) Iron deficiency anemia (Chronic) Dysarthria (Chronic) Expressive language disorder (Chronic) Presence of stent in coronary artery (Chronic) Atherosclerotic heart disease of tejon coronary artery without angina pectoris (Chronic) Nicotine abuse (Chronic) Gastrointestinal bleed (Chronic) Hypertension (Chronic) Hyperlipidemia (Chronic) BLOOD CLOT (Acute) History of DVT (deep vein thrombosis) (Acute) Iron deficiency anemia (Acute) LEFT ARM SURGERY (Acute) Sleep apnea (Acute) CVA (cerebral vascular accident) (Chronic) Diabetes mellitus (Chronic) IBS (irritable bowel syndrome) (Chronic) Pernicious anemia (Chronic) Fibromyalgia (Inactive) Surgical History History of coronary artery stent placement (Acute) History of left-sided carotid endarterectomy (Resolved) Hx of appendectomy (Resolved) Family History Father , at age 38, from [place] Myocardial infarction cardiomopathy Mother Atrial fibrillation Hypertension Hyperlipidemia Diabetes Brother CAD (coronary artery disease) cardiomopathy Myocardial infarction Sister cardiomopathy Social History adopted: No Smoking Status: Current every day smoker tobacco type: cigarettes second hand exposure: Yes quit status: considering quitting alcohol intake: former year quit: 2018 substance use type: does not use caffeine: Yes Type: coffee what type of physical activity do you participate in: none seatbelt use: sometimes do you feel safe at home: Yes HPI HPI HPI: ANGELES LARIOS, is a 58 F who presents to the office today for surgical follow-up regarding the following issue HPI: ANGELES LARIOS, is a 57 F who presents to the office today for surgical consultation regarding extracranial carotid artery occlusive disease. The patient's primary care physician is Dr. Gutierrez and he refers her because of progressive disease with her carotids. A written copy of my surgical consult recommendations will be returned to him. I have previously assisted this patient having performed a left carotid endarterectomy on her September 2012. She had had a preoperative left hemispheric stroke. A CT suggested 70- 80% stenosis on the left. It is interesting that her duplex exam of July 05, 2015 showed a peak systolic velocity on the right at 162 cm/s with postoperative changes noted in the left. Fortunately the patient has not had any right hemispheric symptoms. No TIA or CVA. She had recent carotid duplex imaging performed at the [facility]. This demonstrated peak systolic velocity within the right internal carotid at 299 cm/s with end-diastolic velocity of 69. Unfortunately there appears to be progressive disease on the left with now peak systolic velocity within the left mid internal carotid 272cm/sec with end-diastolic velocity of 56. The patient's body mass has climbed to 268 pounds with a BMI of 43. Although previously she had told me that she had ceased smoking cigarettes that actually is not the case and she is continue to smoke cigarettes since her 2012 surgery. To complicate matters further June 2017 she had acute thrombosis of her right lower extremity. The exact vessel not aware of but it required emergency transfer to [place] where she had what appears to be an emergency thrombectomy procedure with an incision in the right groin. At my request at the [facility] the patient has CTA of the neck on April 15, 2018. There is atherotic calcific plaque at the aortic arch and great vessels. No hemodynamically significant stenosis. There is felt to be greater than 70% stenosis with extensive plaque at the origin of the right internal carotid. There is evidence of postoperative change of the left carotid bulb and internal carotid with post patch angioplasty changes but greater than 70% stenosis in the mid internal carotid just at the end of the patch. Fortunately the patient is currently asymptomatic. Assessment AND Plan Problems 1. Carotid stenosis, bilateral I65.23 Plan 58-year-old female. Progressive right extracranial internal carotid artery stenosis. Recurrent stenosis of the left internal carotid just distal to the patch despite previous postoperative carotid duplex imaging demonstrating a widely patent vessel. I suspect that this is at least in part secondary to modifiable behaviors like diet and body habitus and tobacco use and lipid profile. Since the patient's most recent visit she states that she has stopped smoking cigarettes. I am recommending at this point however prior to proceeding with any additional surgical intervention that we obtain a tertiary referral consultation and if need be treatment if indicated. The patient is aware that although we do carotid enterectomy is feasible it is indeed a more challenging procedure. It is also of concern to me that she has had recurrent stenosis in a relatively short five-year timeline. She has had an opportunity to ask and have questions answered. She is agreeable to a tertiary referral and I request that we obtain her appointment with Dr. Hank Brown and certainly will appreciate his input. Cc: Dr. Gutierrez and Dr. Brown Coding Level of Care Code Off vis,est,level 2 Diagnoses Carotid stenosis, bilateral I65.23 04/20/18 1556 <Electronically signed by Anjali Bautista MD> Date Anjali Bautista MD Cosigner Signature: Date (if applicable) CC: Martin Gutierrez MD CTA NECK W/WO Observed: 04/15/2018 Status: F Source: EYAD CONTRAST 8:16 AM [facility] REPOSITORY [facility] Imaging Services [address] [place] [address] CTA Neck W/WO Contrast MR#: [id number] Acct: [id number] Name: ANGELES LARIOS Pranav Rep #: [id number] : 1960 F 58 From: Gamaliel Serrano MD PCP: Matt FAROOQ,[employer] Status: REG CLI Study: CTA Neck W/WO Contrast Date of Exam: 04/15/18 Exam# [id number] Ordering Dr: Anjali Bautista MD STUDY: CTA NECK WITH CONTRAST REASON FOR EXAM: Female, 58 years old. History of bilateral carotid stenosis. RADIATION DOSAGE (If Supplied By Facility): CTDIvol = ( 20.35 ) mGy, DLP = ( 708.85 ) mGycm TECHNIQUE: CT angiography with multi-detector data acquisition was performed from the aortic arch to the skull base following intravenous administration of 100 ml of Isovue 370 contrast. MIP images were reconstructed from the axial data set. Post-processing of the angiographic images was performed, with multiplanar reformation and 3D reconstruction. Individualized dose optimization techniques were used for this CT. COMPARISON: None. FINDINGS: Inhomogeneous enlargement of both lobes of the thyroid gland suggestive of goitrous change. This is more prominent on the right side. AORTIC ARCH: There is atherosclerotic calcific plaque formation of the aortic arch and great vessels arising from the aortic arch, without a hemodynamically significant stenosis. There is a normal origin of the brachiocephalic, left common carotid, and left subclavian arteries. RIGHT CAROTID ARTERIES: Normal right common carotid artery (CCA). Normal right common carotid bulb. There is extensive atherosclerotic plaque formation of the origin of the right internal carotid artery with an estimated stenosis of greater than 70%. Normal visualized cervical portion of the right internal carotid artery. Normal origin of the right external carotid artery (ECA). LEFT CAROTID ARTERIES: Normal left common carotid artery (CCA). Normal left common carotid bulb. There is extensive atherosclerotic plaque formation distal to the origin of the left internal carotid artery with an estimated stenosis of greater than 70%. Normal visualized cervical portion of the left internal carotid artery. Normal origin of the left external carotid artery (ECA). VERTEBRAL ARTERIES: Normal bilateral vertebral arteries. CT/CTA Neck W/WO Contrast IMPRESSION: High-grade stenosis in the proximal portions of the right and left internal carotid artery Electronically Signed: Gamaliel Serrano MD at 11:01 EDT Tel [phone], Service support , CC: Anajli Bautista MD; Martin Gutierrez MD Manager Servicing: Signed CT-CTA NECK W/WO Observed: 04/15/2018 Status: F Source: WANG CONTRAST IMPORT 12:00 AM [facility] REPOSITORY Images were obtained outside of [facility] [id number] SURGERY VISIT REPORT Observed: 04/09/2018 Status: F Source: EYAD 11:50 AM [facility] REPOSITORY [facility] [address] [place] [address] [address] [place] [address] OFFICE VISIT Date of Service: 04/09/18 MR#: [id number] Acct: [id number] Name: ANGELES LARIOS Rep #: [id number] : 1960 Provider: Anjali Bautista MD Age/Sex: 57/F Location[place] [facility] [place] Status: Signed Intake Vital Signs04/09/18 Height 5 ft 6 in 04/09/18 Weight: 268 lb Intake Visit Reasons: CAD US 03/31 Chief Complaint: Anemia 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 Is patient in pain?: No Allergies bupropion [From Wellbutrin] Adverse Reaction (Severe, Verified 04/09/18 10:14) Rash codeine Adverse Reaction (Severe, Verified 04/09/18 10:14) Other Drmuxyw-Fmv-Glh Reductase Inhibitor Adverse Reaction (Severe, Verified 04/09/18 10:14) Other Medications duloxetine 60 mg capsule,delayed release 60 mg PO BID cap 07/27/17 [History Confirmed 04/09/18] nitroglycerin 0.4 mg sublingual tablet 0.4 mg SUBLINGUAL Q5- 15M PRN #25 tab 10/14/17 [Rx Confirmed 04/09/18] Levothyroxine [Synthroid] 25 mcg PO DAILY 11/30/17 [History Confirmed 04/09/18] Metoprolol Tartrate [Lopressor (beta linn)] 50 mg PO BID 12/01/17 [History Confirmed 04/09/18] Ondansetron HCl [Zofran] 4 mg PO Q6H PRN PRN #20 tab 01/05/18 [Rx Confirmed 04/09/18] clopidogrel 75 mg tablet 75 mg PO QDAY 02/09/18 [History Confirmed 04/09/18] lisinopril 20 mg tablet 20 mg PO QDAY #90 tab 02/09/18 [Rx Confirmed 04/09/18] bupropion HCl SR 100 mg tablet,12 hr sustained-release 100 mg PO BID 04/09/18 [History Confirmed 04/09/18] isosorbide mononitrate ER 60 mg tablet,extended release 24 hr 60 mg PO QDAY 04/09/18 [History Confirmed 04/09/18] omeprazole 40 mg capsule,delayed release 40 mg PO QDAY cap 04/09/18 [History] polysaccharide iron complex 150 mg iron capsule 300 mg PO QDAY cap 04/09/18 [History Confirmed 04/09/18] rosuvastatin 40 mg tablet 40 mg PO QDAY 04/09/18 [History Confirmed 04/09/18] varenicline 1 mg tablet 1 mg PO BID 04/09/18 [History Confirmed 04/09/18] PFSH Medical History Bilateral carotid artery stenosis (Acute) Peripheral vascular disease (Chronic) Nausea AND vomiting (Acute) Diarrhea (Acute) Iron deficiency anemia (Chronic) Dysarthria (Chronic) Expressive language disorder (Chronic) Presence of stent in coronary artery (Chronic) Atherosclerotic heart disease of tejon coronary artery without angina pectoris (Chronic) Nicotine abuse (Chronic) Gastrointestinal bleed (Chronic) Hypertension (Chronic) Hyperlipidemia (Chronic) BLOOD CLOT (Acute) History of DVT (deep vein thrombosis) (Acute) Iron deficiency anemia (Acute) LEFT ARM SURGERY (Acute) Sleep apnea (Acute) CVA (cerebral vascular accident) (Chronic) Diabetes mellitus (Chronic) IBS (irritable bowel syndrome) (Chronic) Pernicious anemia (Chronic) Fibromyalgia (Inactive) Surgical History History of coronary artery stent placement (Acute) History of left-sided carotid endarterectomy (Resolved) Hx of appendectomy (Resolved) Family History (Reviewed 04/09/18 @ 10:11 by Khloe Bal Father , at age 38, from [place] Myocardial infarction cardiomopathy Mother Atrial fibrillation Hypertension Hyperlipidemia Diabetes Brother CAD (coronary artery disease) cardiomopathy Myocardial infarction Sister cardiomopathy Social History adopted: No Smoking Status: Current every day smoker tobacco type: cigarettes second hand exposure: Yes quit status: considering quitting alcohol intake: former year quit: 2018 substance use type: does not use caffeine: Yes Type: coffee what type of physical activity do you participate in: none seatbelt use: sometimes do you feel safe at home: Yes HPI HPI HPI: ANGELES LARIOS, is a 57 F who presents to the office today for surgical consultation regarding extracranial carotid artery occlusive disease. The patient's primary care physician is Dr. Gutierrez and he refers her because of progressive disease with her carotids. A written copy of my surgical consult recommendations will be returned to him. I have previously assisted this patient having performed a left carotid endarterectomy on her September 2012. She had had a preoperative left hemispheric stroke. A CT suggested 7080% stenosis on the left. It is interesting that her duplex exam of July 05, 2015 showed a peak systolic velocity on the right at 162 cm/s with postoperative changes noted in the left. Fortunately the patient has not had any right hemispheric symptoms. No TIA or CVA. She had recent carotid duplex imaging performed at the [facility]. This demonstrated peak systolic velocity within the right internal carotid at 299 cm/s except for with end-diastolic velocity of 69. Unfortunately there appears to be progressive disease on the left with now peak systolic velocity within the left mid internal carotid 272nd discharge with hydroxy of 56. The patient's body mass has climbed to 268 pounds with a BMI of 43. Although previously she had told me that she had ceased smoking cigarettes that actually is not the case and she is continue to smoke cigarettes since her 2012 surgery. To complicate matters further June 2017 she had acute thrombosis of her right lower extremity. The exact vessel not aware of but it required emergency transfer to [place] where she had what appears to be an emergency thrombectomy procedure with an incision in the right groin. The patient states that she does not notice calf claudication with walking but she admits that she does very limited amount of walking. She denies chest pain or shortness of breath at rest. She does have multiple physicians. 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 Samuel as she has had 3 previous coronary stents. 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 It appears that after her thrombectomy she was quite anemic. She is currently managed on clopidogrel. ROS General General: Yes fatigue; no weight change, appetite, colon cancer, breast cancer or weakness HEENT HEENT: No difficulty swallowing, eye injury, eye surgery, swollen glands or hoarseness Endo Endocrine: Yes thyroid disease; no diabetes mellitus, thyroid cancer, Hair loss, heat intolerance or cold intolerance Skin Skin: No rash or changing moles Breast Breast: No left breast lump, right breast lump, nipple discharge, breast pain, abnormal mammogram, abnormal US or breast enlargement Musc Musculoskeletal: No back problems, arthritis, rheumatoid arthritis, gout or joint pain Cardio Cardiovascular: Yes murmur, heart disease, high blood pressure and heart stent; no pacemaker, atrial fibrillation, heart attack, palpitations, shortness of breat with exertion or chest pain Psych Psychiatric: No depression, anxiety or hearing voices Resp Respiratory: Yes shortness of breath, Yes sleep apnea, Yes cough, No COPD, No asthma, No emphysema, No wheezing Gastro Gastrointestinal: No abdominal pain, Yes nausea or vomiting, Yes diarrhea, Yes constipation, Yes blood in stool, Yes acid reflux, No hemorrhoids, No ulcers, No gallbladder problem, Yes black,tarry stools Amaury Hematologic: Yes blood thinners, No blood disorders, Yes bleeding, Yes anemia, Yes blood clots Neuro Neurologic: No system reviewed and no additional complaints, except as docu, No as per HPI, No abnormal walking, No abnormal hearing, No abnormal movements, No abnormal speech, No behavioral changes, No burning sensations, No confusion, No seizure-like activity, No unsteadiness, No dizziness, No localized weakness, No frequent falls, No headache(s), No lack of coordination, No loss of vision, No memory loss, No numbness, No other visual disturbances, No radiating pain, No restless legs, No sensory deficit, No fainting, No tingling, No tremor(s), No weakness, Yes other (stroke/TIA) Exam Const General: cooperative Nutritional Appearance: obese morbidly obese Orientation: alert, awake, oriented x3 HENMT Head: normal to inspection Eyes General: appearance normal, both eyes and all related structures Neck Other: Thick, well-healed surgical incision left neck Chest Breast Palpation: No nipple discharge Other: Increased anterior posterior diameter Resp Effort AND Inspection: normal respiratory effort Auscultation: clear to auscultation bilaterally Cardio Rate: regular rate Rhythm: regular rhythm Heart Sounds: murmur, other (2/6 soft ejection murmur) Other: Bilateral carotids are 2+. 2/6 early. Bilateral brachials and radials are 3+ Lateral femorals very difficult to palpate secondary to body habitus approximately 2+. Well-healed incision right groin. Bilateral popliteals 2+ GI Other: Notably overweight, I cannot detect any internal organs, normal bowel sounds, no bruits noted Skin Other: 1+ bilateral extremity swelling Neuro Cranial Nerves: CN's II-XI intact bilaterally Extrem General: no clubbing, cyanosis or edema Psych Affect: normal affect Assessment AND Plan Problems 1. Bilateral carotid artery stenosis I65.23 Plan 57-year-old female. She has significant medical comorbidities. She has had previous left carotid stenosis. She now has progressive disease bilaterally. She has coronary artery disease with coronary stents. She June 2017 and embolus to the right leg and was reportedly told that there was no identified etiology. She is currently anticoagulated on clopidogrel. She is morbidly obese with a BMI of 43. And she despite previously instructed me that she had ceased smoking to regular cigarettes actually never really stopped. My concern is that with outpatient participation in her general health and welfare that there will be no definitive resolution to her systemic vascular disease. I believe that she is at significant risk for a multitude of vascular issues with poor outcome I have strongly encouraged the patient to stop her tobacco use and to work with her primary care physician at maximization of her medical health I recommend a CTA of her carotids. I believe that there will be motion artifact on her MR and so I have canceled that procedure. She has had an opportunity to ask and have questions answered. She will return to my office for further discussion regarding her progressive carotid disease particularly on the right I appreciate the opportunity of continuing to participate in her surgical care Anjali Bautista M.D., F.A.C.S. Orders Orders: Medications Discontinued: isosorbide mononitrate ER Discontinued Reason: Order Compl60 mg PO DAILY Khloe hou Coding Level of Care Code Comprehensive,moderate Diagnoses Bilateral carotid artery stenosis I65.23 04/09/18 1150 <Electronically signed by Anjali Bautista MD> Date Anjali Bautista MD Cosigner Signature: Date (if applicable) CC: Martin Gutierrez MD CBC W/DIFF, AUTOMATED Collected: 04/02/2018 Status: F Source: EYAD 11:32 AM [facility] REPOSITORY TYPE CODE TESTS RESULT OUT OF RANGE REFERENCE UNITS LAB L100.1000 4.4-11.0 K/mm3 Normal WBC 6.6 LAB L100.1200 4.2-5.4 M/mm3 Low RBC 4.09 LAB L100.1300 12.0-15.0 g/dl Normal HGB 13.1 LAB L100.1400 37-47 % Normal HCT 41.2 LAB L100.1500 81-99 fL High MCV 100.7 LAB L100.1600 27.0-32.0 pg Normal MCH 32.0 LAB L100.1700 32-36 g/gl Low MCHC 31.8 LAB L100.1810 11.6-14.6 % High RDW CV 17.9 LAB L100.1820 35.1-43.9 fl High RDW SD 64.6 LAB L100.1900 150-450 K/mm3 Normal PLT 266 LAB L100.2000 6.2-12.0 fl Normal MPV 10.3 LAB L100.2100 47-70 % Normal NEUT% 60.8 LAB L100.2200 19-41 % Normal LY% 28.8 LAB L100.2300 0-10 % Normal MONO% 8.1 LAB L100.2400 0-5 % Normal EO% 1.5 LAB L100.2500 0-1 % Normal BASO% 0.6 LAB L100.2550 0.0-0.9 % Normal IM GRAN % 0.200 Result Comment: IG% - Immature Granulocytes (promyelocytes, myelocytes and metamyelocytes) > 1% indicates that a LEFT SHIFT is Present. LAB L100.2620 2.0-7.7 X10 3/uL Normal Absolute Neut 4.0 LAB L100.2720 0.83-4.51 X10 3/ul Normal Absolute Lymph 1.91 Performed By: #### L100.0100 #### [facility] [address] [place], [address] COMPREHENSIVE METABOLIC Collected: 04/02/2018 Status: F Source: EYAD [place]OUNTAIN 11:32 AM [facility] REPOSITORY TYPE CODE TESTS RESULT OUT OF RANGE REFERENCE UNITS LAB L501.0100 74-106 mg/dL High GLU 118 Result Comment: Fasting Glucose result from 100 to 125 mg/dL suggests IMPAIRED HOMEOSTASIS per A.D.A. criteria. Please note revised GLUCOSE reference range effective 2017. LAB L501.1000 7-18 mg/dL Normal BUN 11 LAB L501.1100 0.55-1.02 mg/dL Normal CREAT,SERUM 0.82 Result Comment: The validity of the calculated GFR AND GFRAA in patients over 70 years has not been determined. Clinical correlation is essential. LAB L501.1110 >60 mL/min Normal EST GFR 75 Result Comment: Non- GFR Calc LAB L501.1115 >60 mL/min Normal EST GFR - AA 91 Result Comment: GFR Calc LAB L501.1300 10-20 RATIO Normal BUN/CRE 13.4 LAB L501.1500 6.4-8.2 g/dL T Normal PROT 6.8 LAB L501.1800 3.2-5.0 g/dL Normal ALB 3.5 LAB L501.1950 2.2-4.2 g/dL Normal GLOB 3.3 LAB L501.2000 0.9-2.4 RATIO Normal A/G 1.1 LAB L501.2200 8.5-10.1 mg/dL CA Normal 8.6 LAB L501.4100 15-37 U/L Low AST 14 LAB L501.4305 45-117 U/L Normal ALK P 115 LAB L501.4405 13-56 U/L Normal ALT 23 LAB L501.4600 0.20-1.00 mg/dL T Normal BILI 0.30 LAB L501.5300 136-145 mmol/L NA Normal 141 LAB L501.5600 3.5-5.1 mmol/L K Normal 4.4 LAB L501.5900 98-107 mmol/L High CL 108 LAB L501.6100 21.0-32.0 mmol/L Normal CO2 26.0 LAB L501.6200 5-15 Normal GAP 7 Performed By: #### L500.4050, L501.9520 #### [facility] [address] [place], [address] THYROID STIM HORMONE Collected: 04/02/2018 Status: F Source: EYAD (TSH) 11:32 AM [facility] REPOSITORY TYPE CODE TESTS RESULT OUT OF RANGE REFERENCE UNITS LAB L501.9520 0.358-3.74 uIU/mL Normal TSH 1.79 Performed By: #### L500.4050, L501.9520 #### [facility] [address] [place], [address] ONCOLOGY VISIT REPORT Observed: 04/01/2018 Status: F Source: EYAD 4:35 PM [facility] REPOSITORY [facility] [place] [address] OFFICE VISIT Date of Service: 04/01/18 1349 MR#: [id number] Acct: [id number] Name: ANGELES LARIOS Rep #: [id number] : 1960 From: Simon Ulloa MD Age/Sex: 57/F Location: [facility] Status: Signed - Problem List (1) Iron deficiency anemia Status: Chronic (2) Gastrointestinal bleed Status: Chronic Qualifiers: - Date of Service Date of Service:: 04/01/18 - Chief Complaint Anemia - History of Present Illness Patient is a 57-year-old female postmenopausal with significant atherosclerotic arterial disease on chronic anticoagulation with Coumadin and chronic with acute episodes of GI blood loss who has been on oral iron supplements since August 2017 (melena reported by patient prior to starting oral iron supplement in August 2017). She was hospitalized in November 2017 with acute GI bleed, melena and a hemoglobin of 5 g/dl She was transfused with packed red cells, given IV iron, and upper and lower GI endoscopies did not reveal any active bleeding. A capsule study is under consideration at this time. She is under the care of Dr. Ortiz and Cindy for these issues. - Past Medical/Social History Past Medical History Past Medical History: Anemia,Blood transfusion,GI bleed,Hearing problems,Heart disease,Hyperlipidemia, Hypertension,Sleep apnea,Stroke,Thrombophlebitis ,Thyroid disease,TIA,Postmenopausal,Fibromyalgia ,Hypercholesterolemia,Fatigue Other Past Medical History: Hx DVT Past Surgical History Surgical: Appendectomy,Tubal ligation,Cardiac stent Other Surgical History: Lt carotid endardectomy, removal of clot Rt leg, lt forearm surgery Social History Social History: No changes Smoking Status Current every day smoker Review of Systems Constitutional:: Reports: Fatigue - I feel much better after the iron. Denies: Fever, Sweats, Weight loss, Appetite change, Chills Cardiovascular:: Denies: Chest pain, Palpitations, Dyspnea on exertion, Orthopnea, PND, Shortness of breath Respiratory: Denies: Cough, Hemoptysis, Shortness of Breath, Wheezing Gastrointestinal:: Reports: Melena - Stools are black but has been so since she has started oral iron. Denies: Abdominal pain, Nausea, Vomiting, Diarrhea, Constipation, Hematochezia Genitourinary: Denies: Dysuria, Hematuria, 15, Flank pain Musculoskeletal:: Denies: Back pain, Myalgia, Arthralgia Skin: Denies: Rash, Skin Changes, Wounds Neurological:: Denies: Headache, Dizziness, Visual changes, Tinnitus, Hearing loss Psychiatric: Denies: Anxiety, Depression, Homicidal Ideations, Suicidal Ideations Vital Signs Height 5 ft 6 in Weight: 122.742 kg Weight in Pounds 270.6 lbs Pulse Ox 95 - Physical Exam General: Alert, Oriented x3, No apparent distress, - - Obese HEENT: Atraumatic, PERRLA, EOMI, Normocephalic Oropharynx:: Dry mucosa Neck:: Supple, Trachea midline. Negative for: JVD, bilateral Cardiac:: Regular rate, Regular rhythm, Normal S1, Normal S2. Negative for: Murmur Lungs: Clear to auscultation, Excusion symmetrical. Negative for: Rhonchi, Wheezes Abdomen:: Soft, Non-tender, Non-distended. Negative for: Hepatosplenomegaly Extremities:: Negative for: Cyanosis, Edema Neurological: Neuro grossly intact Skin:: Negative for: Lesions, Rash, Petechiae, Ecchymosis Psychiatric:: Appropriate affect, Euthymic Lymphatics:: Negative for: Cervical lymphadenopathy, Supraclavicular lymphadenopathy Laboratory Data: Laboratory Tests Hgb 5.7 L* 9.2 L Hct 21.7 L 32.2 L MCV TIBC 515 H Iron Saturation 3.3 L Ferritin 3 L Vitamin B12 Hgb 11.2 L 12.4 Hct 36.8 L 39.6 MCV 99.7 H TIBC 365 Iron Saturation 10.4 L Ferritin 9 Vitamin B12 Hgb Hct MCV TIBC Iron Saturation 24.2 Ferritin 49 Vitamin B12 540 Assessment and Plan 57-year-old female, postmenopausal with severe iron deficiency anemia due to acute and chronic GI blood loss source not identified on endoscopies (November 2017, capsule study under consideration). Patient has been on oral iron supplements since August 2017, supplemented with IV iron (February-March 2018), and had anemia and iron stores have normalized since Recommendations: #1 continue oral iron supplement fci unless source of GI blood loss is identified and permanently eliminate. Advice 1 up to 3 tablets daily depending on tolerance. #2 Supplement oral iron with IV infusion as guided by iron studies. #3 For cancer screening patient is up-to-date with mammography and CT chest screening. Impression and recommendations discussed. Medications: Prescriptions This Visit Medication Instructions Recorded Rosuvastatin Calcium [Crestor] 40 mg PO QHS 12/10/17 Primary Care Provider: Martin Gutierrez Referring Provider: Martin Gutierrez 04/01/18 6615 <Electronically signed by Simon Ulloa MD> Date Simon Ulloa MD Cosigner Signature: Date (if applicable) CC: CAROTID DUPLEX Observed: 03/31/2018 Status: F Source: EYAD ULTRASOUND 8:42 PM [facility] REPOSITORY [facility] Cardiovascular Services [address] [place] [address] [place] [address] Carotid Duplex Ultrasound 03/31/18 1306 MR#: [id number] Acct: [id number] Name: ANGELES LARIOS Rep #: [id number] : 1960 57 From: Anjali Bautista MD Attending Dr: Matt FAROOQ,Martin Perdue Status: REG CLI Ordering Dr: Martin Gutierrez MD Date: 03/31/18 Location: [facility] [place] Sex: F C Admitted: Reason For Study: bruit Rt. Velocities/BP Lt. Velocities/BP Prox CCA 61.7/11.8 cm/sec. Prox CCA 72.1/15.8 cm/sec. Mid CCA 52.3/11.4 cm/sec. Mid CCA 71.5/16.4 cm/sec. Dist CCA 62.1/14.9 cm/sec. Dist CCA 59.3/16.9 cm/sec. Prox ICA 299.0/69.4 cm/sec. Prox ICA 232.0/57.6 cm/sec. Mid ICA 221.0/41.9 cm/sec. Mid ICA 200.0/56.3 cm/sec. Dist ICA 104.0/28.7 cm/sec. Dist ICA 134.0/32.4 cm/sec. Rt. ICA/CCA = 299.0/62.1=4.8. Lt. ICA/CCA = 232.0/71.5=3.2. Prox ECA 87.9/8.79 cm/sec. Prox ECA 108.0/10.6 cm/sec. Rt. Vert. 64.4/13.0 cm/sec. Lt. Vert. 65.1/21.1 cm/sec. Right Extracranial There is homogeneous, smooth atherosclerotic plaque noted in the right common carotid artery. There is heterogeneous, irregular atherosclerotic plaque noted in the right internal carotid artery. The atherosclerotic plaque causes acoustic shadowing. There is intimal thickening but no significant atherosclerotic plaque noted in the right external carotid artery. Antegrade flow is noted in the right vertebral artery. Left Extracranial There is homogeneous, smooth atherosclerotic plaque noted in the left common carotid artery. There is heterogeneous, irregular atherosclerotic plaque noted in the left internal carotid artery. There is intimal thickening but no significant atherosclerotic plaque noted in the left external carotid artery. Antegrade flow is noted in the left vertebral artery. Procedure Carotid Duplex 47357. The exam was diagnostic. Exam performed in department. 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 Post surgical changes left internal carotid with >70% stenosis. Normal flow bilateral external carotids Patent and antegrade vertebrals bilaterally Progression of stenosis noted in bilateral internal carotids noted from the previous exam of 01/23/17 especially advancing from insignificant disease on the left internal carotid to >70% stenosis. Ordering Physician: Martin Gutierrez Referring Physician: Martin Gutierrez Chi Performed By: Khloe Andrew, RDCS, RVT 03/31/182040 Date Anjali Bautista MD CC: Martin Gutierrez MD Date Dictated: 03/31/18 1306 Date Transcribed: 03/31/182040 Manager Servicing: Signed US OUTSIDE CD DICOM Observed: 03/31/2018 Status: F Source: [facility] 12:00 AM [facility] REPOSITORY Images were obtained outside of [facility] [id number] CBC W/DIFF, AUTOMATED Collected: 03/25/2018 Status: F Source: [place] 1:06 PM [facility] REPOSITORY Order Comment: Reason for Laboratory Test . TYPE CODE TESTS RESULT OUT OF RANGE REFERENCE UNITS LAB L100.1000 4.4-11.0 K/mm3 Normal WBC 6.3 LAB L100.1200 4.2-5.4 M/mm3 Low RBC 3.97 LAB L100.1300 12.0-15.0 g/dl Normal HGB 12.4 LAB L100.1400 37-47 % Normal HCT 39.6 LAB L100.1500 81-99 fL High MCV 99.7 LAB L100.1600 27.0-32.0 pg Normal MCH 31.2 LAB L100.1700 32-36 g/gl Low MCHC 31.3 LAB L100.1810 11.6-14.6 % High RDW CV 18.2 LAB L100.1820 35.1-43.9 fl High RDW SD 66.9 LAB L100.1900 150-450 K/mm3 Normal PLT 236 LAB L100.2000 6.2-12.0 fl Normal MPV 9.6 LAB L100.2100 47-70 % Normal NEUT% 59.6 LAB L100.2200 19-41 % Normal LY% 30.2 LAB L100.2300 0-10 % Normal MONO% 8.1 LAB L100.2400 0-5 % Normal EO% 1.4 LAB L100.2500 0-1 % Normal BASO% 0.5 LAB L100.2550 0.0-0.9 % Normal IM GRAN % 0.200 Result Comment: IG% - Immature Granulocytes (promyelocytes, myelocytes and metamyelocytes) > 1% indicates that a LEFT SHIFT is Present. LAB L100.2620 2.0-7.7 X10 3/uL Normal Absolute Neut 3.7 LAB L100.2720 0.83-4.51 X10 3/ul Normal Absolute Lymph 1.89 LAB L100.4500 Normal SMEAR COMMENT COMMENT Result Comment: SLIDE SCANNED - 1+ ANISO. Performed By: #### L100.0100, L100.9950, L503.6030, L503.6524 #### [facility] [address] [place], [address] RETIC PANEL Collected: 03/25/2018 Status: F Source: [place] 1:06 PM [facility] REPOSITORY Order Comment: Reason for Laboratory Test . TYPE CODE TESTS RESULT OUT OF RANGE REFERENCE UNITS LAB L101.0000 0.5-1.5 % High RETIC 1.86 LAB L101.0060 3.00-15.90 % IM Normal RET FRACTION 11.40 LAB L101.0090 30-35 pg Normal RET-HE 34.8 LAB L101.0110 1.0-7.9 % Normal IPF 3.3 Result Comment: Low PLT + Low IPF suggest a bone marrow production disorder Low PLT + high IPF suggests peripheral destruction (e.g.ITP, TTP, HIT, DIC, autoimmune) or bone marrow recovery Trending of serial IPF measurements is recommended when evaluating for bone marrow respones Value above normal range indicates an increase in RBC cellular response from bone marrow. Performed By: #### L100.0100, L100.9950, L503.6030, L503.6550 #### [facility] [address] [place], [address] IRON+IRON BINDING Collected: 03/25/2018 Status: F Source: [place] CAPACITY 1:06 PM [facility] REPOSITORY Order Comment: Reason for Laboratory Test . TYPE CODE TESTS RESULT OUT OF RANGE REFERENCE UNITS LAB L503.6075 250-450 ug/dL TIBC Normal 339 LAB L503.6150 50-170 ug/dL IRON Normal 82 LAB L503.6250 15.0-55.0 % IRON Normal SATURATION 24.2 Performed By: #### L100.0100, L100.9950, L503.6030, L503.6550 #### [facility] [address] [place], [address] FERRITIN Collected: 03/25/2018 Status: F Source: [place] 1:06 PM [facility] REPOSITORY Order Comment: Reason for Laboratory Test . TYPE CODE TESTS RESULT OUT OF RANGE REFERENCE UNITS LAB L503.6550 8-252 ng/mL Normal FERRITIN 49 Performed By: #### L100.0100, L100.9950, L503.6030, L503.6550 #### [facility] [address] [place], [address] VITAMIN B12 Collected: 03/25/2018 Status: F Source: [place] 1:06 PM [facility] REPOSITORY Order Comment: Reason for Laboratory Test . TYPE CODE TESTS RESULT OUT OF RANGE REFERENCE UNITS LAB L503.0105 211-911 pg/mL Normal Vitamin B12 540 Performed By: #### L503.0105 #### [facility] [address] [place], [address] ONCOLOGY VISIT REPORT Observed: 02/09/2018 Status: F Source: [place] 1:24 PM [facility] REPOSITORY [facility] [place] [address] OFFICE VISIT Date of Service: 02/09/18 1258 MR#: [id number] Acct: [id number] Name: ANGELES LARIOS Rep #: [id number] : 1960 From: Simon Ulloa MD Age/Sex: 57/F Location: OMD Status: Signed - Problem List (1) Iron deficiency anemia Status: Chronic (2) Gastrointestinal bleed Status: Chronic Qualifiers: - Date of Service Date of Service:: 02/09/18 - Chief Complaint Anemia - History of Present Illness Patient is a 57-year-old female postmenopausal with significant atherosclerotic arterial disease on chronic anticoagulation with Coumadin and chronic with acute episodes of GI blood loss who has been on oral iron supplements since August 2017 (melena reported by patient prior to starting oral iron supplement in August 2017). She was hospitalized in November 2017 with acute GI bleed, melena and a hemoglobin of 5 g/dl She was transfused with packed red cells, given IV iron, and upper and lower GI endoscopies did not reveal any active bleeding. A capsule study is under consideration at this time. She is under the care of Dr. Ortiz and Cindy for these issues. - Past Medical/Social History Past Medical History Past Medical History: Anemia,Blood transfusion,GI bleed,Hearing problems,Heart disease,Hyperlipidemia, Hypertension,Sleep apnea,Stroke,Thrombophlebitis ,Thyroid disease,TIA,Postmenopausal,Fibromyalgia ,Hypercholesterolemia,Fatigue Other Past Medical History: Hx DVT Past Surgical History Surgical: Appendectomy,Tubal ligation,Cardiac stent Other Surgical History: Lt carotid endardectomy, removal of clot Rt leg, lt forearm surgery Social History Smoking Status Current every day smoker Review of Systems Constitutional:: Reports: Weakness, Fatigue. Denies: Fever, Sweats, Weight loss, Appetite change, Chills Cardiovascular:: Reports: Dyspnea on exertion, Peripheral edema. Denies: Chest pain, Palpitations, Orthopnea, PND, Shortness of breath Respiratory: Reports: Shortness of breath upon exertion. Denies: Cough, Hemoptysis, Shortness of Breath, Wheezing Gastrointestinal:: Denies: Abdominal pain, Nausea, Vomiting, Diarrhea, Constipation, Hematochezia Genitourinary: Denies: Dysuria, Hematuria, 15, Flank pain Musculoskeletal:: Reports: Arthritis, Arthralgia. Denies: Back pain, Myalgia Skin: Denies: Rash, Skin Changes, Wounds Neurological:: Denies: Headache, Dizziness, Visual changes, Tinnitus, Hearing loss Psychiatric: Denies: Anxiety, Depression, Homicidal Ideations, Suicidal Ideations Vital Signs Height 5 ft 6.5 in Weight: 121.109 kg Weight in Pounds 267.0 lbs Pulse Ox 96 - Physical Exam General: Alert, Oriented x3, No apparent distress, - - Obese ECOG 1 HEENT: Atraumatic, PERRLA, EOMI, Normocephalic Oropharynx:: Dry mucosa Neck:: Supple, Trachea midline. Negative for: JVD, bilateral Cardiac:: Regular rate, Regular rhythm, Normal S1, Normal S2. Negative for: Murmur Lungs: Clear to auscultation, Diminished, Excusion symmetrical. Negative for: Rhonchi, Wheezes Abdomen:: Soft, Non-tender, Non-distended. Negative for: Hepatosplenomegaly Extremities:: Edema - 1+ legs. Negative for: Cyanosis Neurological: Neuro grossly intact Skin:: Negative for: Lesions, Rash, Petechiae, Ecchymosis Psychiatric:: Appropriate affect, Euthymic Lymphatics:: Negative for: Cervical lymphadenopathy, Supraclavicular lymphadenopathy Laboratory Data: Laboratory Tests WBC Hgb 5.7 L* Hct 21.7 L Plt Count Creatinine 0.75 TIBC 515 H Iron Saturation 3.3 L Ferritin 3 L Assessment and Plan 57-year-old female, postmenopausal with severe iron deficiency anemia due to acute and chronic GI blood loss source not identified on endoscopies (November 2017, capsule study under consideration). Patient has been on oral iron supplements since August 2017, supplemented with IV iron. 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 Advice 1 up to 3 tablets daily depending on tolerance. #2 Supplement oral iron with IV infusion as guided by iron studies. Patient will receive a second loading dose of Venofer 300 mg weekly 3 and will be reevaluated in 1 month #3 For cancer screening patient is up-to-date with mammography and CT chest screening. Impression and recommendations discussed. Medications: Prescriptions This Visit Medication Instructions Recorded Rosuvastatin Calcium [Crestor] 10 mg PO QHS 12/10/17 Primary Care Provider: Martin Gutierrez Referring Provider: Martin Gutierrez 02/09/18 1324 <Electronically signed by Simon Ulloa MD> Date Simon Ulloa MD Cosigner Signature: Date (if applicable) CC: CARDIOLOGY VISIT Observed: 02/09/2018 Status: F Source: [place] REPORT 11:28 AM [facility] REPOSITORY [facility] [address] [place] [address] OFFICE VISIT Date of Service: 02/09/18 MR#: [id number] Acct: [id number] Name: ANGELES LARIOS Rep #: [id number] : 1960 Provider: Efrain Saumel MD Age/Sex: 57/F Location: [facility] Status: Signed HPI HPI Chief Complaint: Follow-up visit. Details: ANGELES LARIOS, is a 57 F who presents to the office today for a follow-up visit. She is a lady with a history of coronary artery disease status post angioplasty and stenting of the right coronary artery in 2008. She had mild disease noted in the left anterior descending artery. She also has a history of a left carotid endarterectomy. She returns for routine follow-up visit she denies any neck arm or jaw discomfort suggest angina no dizziness or diaphoresis no near syncope or syncope. She does have mild shortness of breath with exertion. She has not had to take any nitroglycerin recently. Her physical exam demonstrates clear lung shirley regular rate and rhythm and no pedal edema. There is a soft 1/6 systolic murmur noted left sternal border and a left-sided carotid bruit present. Intake Vital Signs02/09/18 Height 5 ft 6 in 02/09/18 Weight: 266 lb 02/09/18 Body Mass Index (BMI) 42.9 02/09/18 Blood Pressure 144/66 Intake Visit Reasons: 6 M FU Allergies bupropion [From Wellbutrin] Adverse Reaction (Severe, Verified 02/09/18 11:07) Rash codeine Adverse Reaction (Severe, Verified 02/09/18 11:07) Other Lrhbsmx-Rdq-Rue Reductase Inhibitor Adverse Reaction (Severe, Verified 02/09/18 11:07) Other Medications duloxetine 60 mg capsule,delayed release 60 mg PO BID cap 07/27/17 [History Confirmed 02/09/18] lisinopril 20 mg tablet 20 mg PO QDAY 07/27/17 [History Confirmed 02/09/18] isosorbide mononitrate ER 60 mg tablet,extended release 24 hr 60 mg PO DAILY #90 tab 10/14/17 [Rx Confirmed 02/09/18] nitroglycerin 0.4 mg sublingual tablet 0.4 mg SUBLINGUAL Q5- 15M PRN #25 tab 10/14/17 [Rx Confirmed 02/09/18] polysaccharide iron complex 150 mg iron capsule 150 mg PO QDAY cap 11/13/17 [History Confirmed 02/09/18] Levothyroxine [Synthroid] 25 mcg PO DAILY 11/30/17 [History Confirmed 02/09/18] Metoprolol Tartrate [Lopressor (beta linn)] 50 mg PO BID 12/01/17 [History Confirmed 02/09/18] Omeprazole 40 mg PO BID #60 capsule. 12/03/17 [Rx Confirmed 02/09/18] Rosuvastatin Calcium [Crestor] 10 mg PO QHS 12/10/17 [History Confirmed 02/09/18] Ondansetron HCl [Zofran] 4 mg PO Q6H PRN PRN #20 tab 01/05/18 [Rx Confirmed 02/09/18] clopidogrel 75 mg tablet 75 mg PO QDAY 02/09/18 [History Confirmed 02/09/18] [facility] Medical History Peripheral vascular disease (Chronic) Presence of stent in coronary artery (Chronic) Hypertension (Chronic) Hyperlipidemia (Chronic) BLOOD CLOT (Acute) History of DVT (deep vein thrombosis) (Acute) Iron deficiency anemia (Acute) LEFT ARM SURGERY (Acute) Sleep apnea (Acute) CVA (cerebral vascular accident) (Chronic) Diabetes mellitus (Chronic) IBS (irritable bowel syndrome) (Chronic) Pernicious anemia (Chronic) Fibromyalgia (Inactive) Surgical History History of left-sided carotid endarterectomy (Resolved) Hx of appendectomy (Resolved) Family History Father , at age 38, from [place] Myocardial infarction cardiomopathy Mother Atrial fibrillation Hypertension Hyperlipidemia Diabetes Brother CAD (coronary artery disease) cardiomopathy Myocardial infarction Sister cardiomopathy Social History adopted: No Smoking Status: Current every day smoker tobacco type: cigarettes second hand exposure: Yes quit status: considering quitting alcohol intake: former year quit: 2018 substance use type: does not use caffeine: Yes Type: coffee what type of physical activity do you participate in: none seatbelt use: sometimes do you feel safe at home: Yes ROS Const Const: Positive for fatigue (chronic anemia); negative for weakness, weight gain, weight loss, frequent falls or excessive sweating Eyes Eyes: Negative for change in vision, blurry vision or transient loss of vision ENT ENT: Negative for dizziness or balance problems Cardio Chest Pain: No Palpitations: No Edema: Bilateral (bilateral LE, hands) Muscle aches with walking: None Resp Respiratory: Positive for SOB with activity (breathing at baseline) and other (productive cough w/ clear sputum); negative for SOB at rest GI GI: Negative vomiting or vomiting blood/hematemesis : Negative for hematuria Musc Musc: Negative for balance problems, muscle aches/ myalgia, muscle weakness or joint pain Skin Skin: Negative non-healing lesions or rash Neuro Neuro: Negative for weakness, blurry vision, dizziness, lightheadedness, frequent falls or orthostatic symptoms Amaury Hematologic/Lymphatic: Negative for easy bleeding Endo Endo: Positive for fatigue (chronic anemia); negative for excessive sweating Psych Psych: Negative for anxiety or depression Allergy Allergy/Immunology: Negative for hives, Negative for rash Cardiology Exam Const Appearance: cooperative, healthy appearing, well developed, well groomed and no acute distress Nutritional Appearance: well nourished and average body habitus Orientation: alert, awake and oriented x3 Head Head: normal to inspection, normocephalic and atraumatic Ears: hearing grossly normal bilaterally and external ears normal Nose: external nose normal, nasal mucous membranes and turbinates normal, nares normal, septum normal, no nasal discharge Face and Sinus: face symmetric Mouth: oral mucosae normal, tongue normal, oropharynx normal and moist mucous membranes Teeth and gingiva: dentition normal Throat: posterior oropharynx normal, tonsils normal and uvula midline Eyes General: appearance normal, both eyes and all related structures Eyelids: eyelids normal Conjunctivae: conjunctivae normal Pupils: PERRL, normal by confrontation and accommodation normal EOM: EOM intact bilaterally Neck Neck: normal visual inspection, trachea midline and no JVD JVD: +5 Carotids: normal carotid upstroke, bounding pulses and bruit Left Chest Chest inspection: normal inspection of the chest, symmetric chest movement and normal respiratory effort Auscultation: Bilateral: Clear to Auscultation Cardio Palpation: normal PMI Rate: regular rate Rhythm: regular rhythm Heart sounds: S1 normal and S2 normal Murmur: Grade 1/6, early systolic and LLSB GI GI: normal to inspection, soft, no hepatosplenomegaly and bowel sounds present Neuro General: alert, awake, oriented x3, no focal sensory deficit, gait normal and moves all extremities Skin Skin: no rashes or lesions noted Extremities Pulses: Normal: Right Femoral Pulse, Left Femoral Pulse, Right Dorsalis Pedis Pulse, Left Dorsalis Pedis Pulse, Right Posterior Tibial Pulse, Left Posterior Tibial Pulse, Right Radial Pulse, Left Radial Pulse Lower Extremity Edema: None: Bilateral Musculoskel Musculoskeletal: No joint tenderness Psych Psychological: normal affect Assessment AND Plan 1. Atherosclerosis of tejon coronary artery of tejon heart without angina pectoris I25.10 PTCA of RA AND diagonal with intracoronary stent November 2008 Plan She does have a history of coronary artery disease status post previous stenting. Her most recent stress test in October of this year was reassuring with no evidence of ischemia the plan is for her to continue the current medical therapy with the beta-linn Plavix as well as aspirin. 2. Essential hypertension I10 Plan Her blood pressure appears to be under good control at this particular time. No major changes were made with respect to the above. 3. Pure hypercholesterolemia E78.00; E78.0 Plan She does have a history of hyperlipidemia low to medium intensity statin. Will continue to follow her lipid profile carefully. 4. Peripheral vascular disease I73.9 Plan She does have a history of peripheral vascular disease status post left carotid endarterectomy. A recent carotid ultrasound did not demonstrate any significant restenosis. She will continue to follow-up with a surgeon and also to exercise aggressive risk factor modification. Lipid profile will be obtained at this visit. Plan Detail Follow Up 1 Year (porter baggage) Coding Level of Care Code Off vis,est,level 4 Diagnoses Atherosclerosis of tejon coronary artery of te[place] heart without angina pectoris I25.10 [place] vs. transplanted heart: te[place] heart Essential hypertension I10 Hypertension type: essential hypertension Pure hypercholesterolemia E78.00; E78.0 Hyperlipidemia type: pure hypercholesterolemia Peripheral vascular disease I73.9 Coding Level of Care Code Off vis,est,level 4 Diagnoses Atherosclerosis of [place] coronary artery of [place] heart without angina pectoris I25.10 [place] vs. transplanted heart: te[place] heart Essential hypertension I10 Hypertension type: essential hypertension Pure hypercholesterolemia E78.00; E78.0 Hyperlipidemia type: pure hypercholesterolemia Peripheral vascular disease I73.9 02/09/18 1128 <Electronically signed by Efrain Samuel MD> Date Efrain Samuel MD Cosigner Signature: Date (if applicable) CC: Martin Gutierrez MD CBC W/DIFF, AUTOMATED Collected: 02/05/2018 Status: F Source: [place] 8:44 AM [facility] REPOSITORY Order Comment: Reason for Laboratory Test . TYPE CODE TESTS RESULT OUT OF RANGE REFERENCE UNITS LAB L100.1000 4.4-11.0 K/mm3 Normal WBC 6.9 LAB L100.1200 4.2-5.4 M/mm3 Low RBC 4.03 LAB L100.1300 12.0-15.0 g/dl Low HGB 11.2 LAB L100.1400 37-47 % Low HCT 36.8 LAB L100.1500 81-99 fL Normal MCV 91.3 LAB L100.1600 27.0-32.0 pg Normal MCH 27.8 LAB L100.1700 32-36 g/gl Low MCHC 30.4 LAB L100.1810 11.6-14.6 % High RDW CV 21.4 LAB L100.1820 35.1-43.9 fl High RDW SD 73.1 LAB L100.1900 150-450 K/mm3 Normal PLT 279 LAB L100.2000 6.2-12.0 fl Normal MPV 9.6 LAB L100.2100 47-70 % Normal NEUT% 54.5 LAB L100.2200 19-41 % Normal LY% 32.6 LAB L100.2300 0-10 % High MONO% 10.4 LAB L100.2400 0-5 % Normal EO% 1.8 LAB L100.2500 0-1 % Normal BASO% 0.6 LAB L100.2550 0.0-0.9 % Normal IM GRAN % 0.100 Result Comment: IG% - Immature Granulocytes (promyelocytes, myelocytes and metamyelocytes) > 1% indicates that a LEFT SHIFT is Present. LAB L100.2620 2.0-7.7 X10 3/uL Normal Absolute Neut 3.7 LAB L100.2720 0.83-4.51 X10 3/ul Normal Absolute Lymph 2.23 LAB L100.7300 ANISO Normal 1+ Performed By: #### L100.0100, L503.6030, L503.6550 #### [facility] [address] [facility] [id number] IRON+IRON BINDING Collected: 02/05/2018 Status: F Source: [facility] 8:44 AM [facility] REPOSITORY Order Comment: Reason for Laboratory Test . TYPE CODE TESTS RESULT OUT OF RANGE REFERENCE UNITS LAB L503.6075 250-450 ug/dL TIBC Normal 365 LAB L503.6150 50-170 ug/dL Low IRON 38 LAB L503.6250 15.0-55.0 % Low IRON SATURATION 10.4 Performed By: #### L100.0100, L503.6030, L503.6550 #### [facility] [address] [place], [place], [id number] FERRITIN Collected: 02/05/2018 Status: F Source: [place] 8:44 AM [facility] Order Comment: Reason for Laboratory Test . TYPE CODE TESTS RESULT OUT OF RANGE REFERENCE UNITS LAB L503.6550 8-252 ng/mL Normal FERRITIN 9 Performed By: #### L100.0100, L503.6030, L503.6550 #### [facility] [address] [place], [address] LUNG Observed: 02/05/2018 Status: F Source: [place] SCREENING 7:58 AM [facility] REPOSITORY [facility] Imaging Services [address] [place] [address] Lung Screening MR#: [id number] Acct: [id number] Name: ANGELES LARIOS Rep #: [id number] : 1960 F 57 From: Bryce Montoya MD PCP: Matt FAROOQ,Martni Perdue Status: REG CLI Study: Low Dose CT Lung Screening Date of Exam: 02/05/18 Exam# [id number] Ordering Dr: Simon Ulloa MD STUDY: LOW DOSE CT LUNG CANCER SCREENING REASON FOR EXAM: Female, 57 years old. Nicotine dependence, smokes 1/2 pack/day x 40 years, 260lbs, hypertension, coronary stents x 3. RADIATION DOSAGE (If Supplied By Facility): CTDIvol = ( 4.02 ) mGy, DLP = ( 125.87 ) mGycm TECHNIQUE: No contrast was administered. Low dose technique was utilized (average mAS-38 and kVp 120). 1.25 mm axial source images with a slice interval of 1.25- mm were reconstructed in lung windows. 2.5 mm axial source images with a slice interval of 2.5-mm were reconstructed in lung windows. 5.0 mm axial source images with a slice interval of 5.0-mm were reconstructed in soft tissue windows. Nodule measured using lung windows on PACS and/or independent workstation with automated measurement of minimum and maximum diameter. Nodule measurement reported as average diameter rounded to the nearest whole number. Growth is defined as an increase ins size of greater than 1.5 mm. COMPARISON: None. NODULES: Subsegmental atelectases are noted in the right middle lobe and lingula. There is no demonstrated pleural abnormality. Normal heart and pericardium. Normal mediastinum. Normal hilar regions. Normal unenhanced pulmonary arteries. Normal aorta arch and descending thoracic aorta. There are multi-level degenerative changes and diffuse demineralization of the thoracic spine. There is no demonstrated abnormality of the visualized upper abdomen. CT/Low Dose CT Lung Screening IMPRESSION: Lung-RADS category 2. Recommendation: Routine screening CT scan in one year. IMPORTANT NOTES FOR USE: ACR Lung-RADS Version 1.0 Assessment Categories Release Date: December 19, 2013 Category: Coded 0-4 bases on nodule(s) with highest degree of suspicion. Negative screen is defined as categories 1 and 2; a positive screen is defined as categories 3 and 4. Category 3 and 4A nodules that are unchanged on interval CT should be coded as category 2, and individuals returned to screening in 12 months. Category 4X: Category 3 or 4 nodules with additional imaging findings that increase the suspicion of lung cancer, such as spiculation, GGN that doubles in size in 1 year, enlarged lymph notes, etc. Category Modifiers: S (significant finding unrelated to lung cancer) and C (prior history of treated lung cancer) may be added to the 0-4 Lung-RADS Electronically Signed: Bryce Montoya MD at 10:25 EDT Tel , Service support , CC: Smion Ulloa MD; Martin Gutierrez MD Manager Servicing: Signed SCREENING MAMM (CAD), Observed: 02/05/2018 Status: F Source: [place] BIL[place] 7:31 AM [facility] REPOSITORY [facility] [facility] [address] [place] [id number] SCREENING MAMM (CAD), BILAT MR#: [id number] Acct: [id number] Name: ANGELES LARIOS Rep #: [id number] : 1960 F 57 From: Gamaliel Serrano MD PCP: Martin Gutiererz MD, Chi Status: REG CLI Study: SCREENING MAMM (CAD), BILAT Date of Exam: 02/05/18 Exam# [id number] Ordering Dr: Simon Ulloa MD MAMMOGRAPHY - BILATERAL SCREENING REASON FOR EXAM: Female, 57 years old. Routine annual screening examination. PERTINENT HISTORY: Non-contributory. TECHNIQUE: Digital bilateral breast marcie (3D mammographic acquisition) in the CC and MLO projections. 2-D mediolateral oblique (MLO) and craniocaudad (CC) views of both breasts were obtained. CAD: Full Field Digital Mammography with Computer Added Detection was performed. COMPARISON: Comparison is made with prior study dated July 31, 2016. FINDINGS: Breast Composition: There are scattered areas of fibroglandular density. There are no dominant masses or suspicious calcifications. No other significant abnormalities are identified. There has been no significant change since the prior study. BI/SCREENING MAMM (CAD), BILAT IMPRESSION: Stable bilateral screening mammogram. Yearly follow-up mammogram recommended. (A) ASSESSMENT CATEGORY: BIRADS Category 1: Negative. A letter regarding these results will be sent to the patient by the facility within 30 days. Approximately 10% of breast cancers are not detected by mammography. A normal mammogram should not delay biopsy of a clinically suspicious abnormality. [id number] Electronically Signed: Gamaliel Serrano MD at 15:50 EDT Tel [phone], Service support , CC: Simon Ulloa MD; Martin Gutierrez MD Manager Servicing: Signed CBC W/DIFF, AUTOMATED Collected: 01/12/2018 Status: F Source: EYAD 3:43 PM [facility] REPOSITORY TYPE CODE TESTS RESULT OUT OF RANGE REFERENCE UNITS LAB L100.1000 4.4-11.0 K/mm3 Normal WBC 7.0 LAB L100.1200 4.2-5.4 M/mm3 Normal RBC 4.20 LAB L100.1300 12.0-15.0 g/dl Low HGB 11.4 LAB L100.1400 37-47 % Normal HCT 37.9 LAB L100.1500 81-99 fL Normal MCV 90.2 LAB L100.1600 27.0-32.0 pg Normal MCH 27.1 LAB L100.1700 32-36 g/gl Low MCHC 30.1 LAB L100.1810 11.6-14.6 % High RDW CV 26.9 LAB L100.1820 35.1-43.9 fl High RDW SD 87.7 LAB L100.1900 150-450 K/mm3 Normal PLT 327 LAB L100.2000 6.2-12.0 fl Normal MPV 10.2 LAB L100.2100 47-70 % Normal NEUT% 56.4 LAB L100.2200 19-41 % Normal LY% 31.3 LAB L100.2300 0-10 % Normal MONO% 9.6 LAB L100.2400 0-5 % Normal EO% 2.2 LAB L100.2500 0-1 % Normal BASO% 0.4 LAB L100.2550 0.0-0.9 % Normal IM GRAN % 0.100 Result Comment: IG% - Immature Granulocytes (promyelocytes, myelocytes and metamyelocytes) > 1% indicates that a LEFT SHIFT is Present. LAB L100.2620 2.0-7.7 X10 3/uL Normal Absolute Neut 3.9 LAB L100.2720 0.83-4.51 X10 3/ul Normal Absolute Lymph 2.18 LAB L100.4500 Normal SMEAR COMMENT SCANNED LAB L100.5500 ADEQ Normal PLT EST ADEQUATE LAB L100.5650 Normal PLT MORPH GIANT Result Comment: RARE GIANT PLATELET NOTED LAB L100.7300 Normal ANISO 4+ Performed By: #### L100.0100 #### [facility] [address] [place], [address] COMPREHENSIVE METABOLIC Collected: 01/12/2018 Status: F [facility] REPOSITORY TYPE CODE TESTS RESULT OUT OF RANGE REFERENCE UNITS LAB L501.0100 74-106 mg/dL Normal GLU 93 Result Comment: Please note revised GLUCOSE reference range effective 2017. LAB L501.1000 7-18 mg/dL Normal BUN 9 LAB L501.1100 0.55-1.02 mg/dL Normal CREAT,SERUM 0.75 Result Comment: The validity of the calculated GFR AND GFRAA in patients over 70 years has not been determined. Clinical correlation is essential. LAB L501.1110 >60 mL/min Normal EST GFR 84 Result Comment: Non- GFR Calc LAB L501.1115 >60 mL/min Normal EST GFR - AA 102 Result Comment: GFR Calc LAB L501.1300 10-20 RATIO Normal BUN/CRE 12.1 LAB L501.1500 6.4-8.2 g/dL T Normal PROT 7.0 LAB L501.1800 3.2-5.0 g/dL Normal ALB 3.2 LAB L501.1950 2.2-4.2 g/dL Normal GLOB 3.8 LAB L501.2000 0.9-2.4 RATIO Low A/G 0.8 LAB L501.2200 8.5-10.1 mg/dL Low CA 8.4 LAB L501.4100 15-37 U/L Normal AST 17 LAB L501.4305 45-117 U/L Normal ALK P 98 LAB L501.4405 13-56 U/L Normal ALT 25 LAB L501.4600 0.20-1.00 mg/dL T Normal BILI 0.40 LAB L501.5300 136-145 mmol/L NA Normal 143 LAB L501.5600 3.5-5.1 mmol/L K Normal 4.5 LAB L501.5900 98-107 mmol/L High CL 108 LAB L501.6100 21.0-32.0 mmol/L Normal CO2 28.0 LAB L501.6200 5-15 Normal GAP 7 Performed By: #### L500.4050, L501.9520 #### [facility] [address] [place], [address] THYROID STIM HORMONE Collected: 01/12/2018 Status: F Source: EYAD (TSH) 3:43 PM [facility] REPOSITORY TYPE CODE TESTS RESULT OUT OF RANGE REFERENCE UNITS LAB L501.9520 0.358-3.74 uIU/mL Normal TSH 1.82 Performed By: #### L500.4050, L501.9520 #### [facility] [address] [place], [address] 12 LEAD ELECTROCARDIOGRAM Observed: 01/08/2018 Status: F Source: EYAD 2:52 PM [facility] [address] [place] [address] 12 Lead EKG 01/04/182030 MR#: [id number] Acct: [id number] Name: ANGELES LARIOS Rep #: [id number] : 1960 57 From: Efrain Samule MD Attending Dr: Pernell Gurrola Status: DIS HEMAL Ordering Dr: Norman Proctor MD Date: 01/04/18 Location: [facility] [place] Sex: F C Admitted: 01/04/18 Test Reason : N/V Blood Pressure : / mmHG Vent. Rate : 063 BPM Atrial Rate : 063 BPM P-R Int : 168 ms QRS Dur : 106 ms QT Int : 452 ms P-R-T Axes : 063 059 045 degrees QTc Int : 462 ms Normal sinus rhythm Normal ECG Confirmed by JIMMIE FAROOQ, EFRAIN ([id number]), online content editor MANJIT PINEDA ([id number]) on 01/08/2018 2:52:03 PM Referred By: Martin Gutierrez Confirmed By:EFRAIN SAMUEL MD 01/08/18 1452 Date Efrain Samuel MD CC: Pernell Gurrola; Martin Gutierrez MD; Norman Proctor MD Signed DISCHARGE SUMMARY Observed: 01/05/2018 Status: F Source: EYAD 1:42 PM [facility] REPOSITORY [facility] Medical Records Department [address] [address] Discharge Summary 01/05/18 1151 MR#: [id number] Acct: [id number] Name: ANGELES LARIOS Rep #: [id number] : 1960 57 From: Altagracia FONSECA PCP: Matt FAROOQ,Martin Chi Status: DIS HEMAL Y Location: MS3 [id number] <Altagracia Stanford - Last Filed: 01/05/18 11:59> Discharge Date and Diagnosis Date of Admission: 01/04/18 Date of Discharge: 01/05/18 - Primary Discharge Diagnosis Active and Suspected Problems (Last Updated 12/10/17 @ 10:37 by Tracy Larson) 1. Nausea, vomiting, diarrhea-suspected viral gastroenteritis 2. Acute kidney injury secondary to #1 3. Hypokalemia - Secondary Discharge Diagnosis Chronic Problems (Last Updated 12/10/17 @ 10:37 by Tracy Larson) Iron deficiency anemia (Chronic) Dysarthria (Chronic) Expressive language disorder (Chronic) Other fci (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 (Chronic) Presence of stent in coronary artery (Chronic) Atherosclerotic heart disease of tejon coronary artery without angina pectoris (Chronic) PTCA of RA AND diagonal with intracoronary stent November 2008 Nicotine abuse (Chronic) Gastrointestinal bleed (Chronic) CAD (coronary artery disease) (Chronic) Hypertension (Chronic) Hyperlipidemia (Chronic) Hospital Course and Treatment Operations: None Procedures: None Summary of Care Provided: The patient is a 57 year old F admitted 01/04/2018 due to nausea, vomiting, diarrhea 2 days. She denies abdominal pain. Denies blood in stool. She had a recent hospitalization for GI bleed 1 month ago. Hemoglobin stable during admission. She was noted to have acute kidney injury and hypokalemia secondary to dehydration as a result of suspected viral gastroenteritis. Patient's symptoms have resolved. Unable to send stool sample due to no further bowel movement since admission. Patient able to tolerate oral intake without nausea or vomiting. Will discharged on Zofran as needed for nausea. Potassium replaced. Acute kidney injury resolved with IV fluids. Patient is stable for discharge home with further follow-up with primary care physician. Her past medical history includes iron deficiency anemia, coronary artery disease status post PTCA stent,/tobacco dependence, history of GI bleed, hypertension, hyperlipidemia. Patient seen and examined prior to discharge. Heart rate regular rate and rhythm. Lungs clear. Abdomen soft, nontender. Neuro grossly intact. Vital signs stable. Patient is stable for discharge home with further follow-up with primary care physician. This patient was seen by MARIAN Rivera under the supervision of Dr. Gurrola. Discharge Diet: Low fat/ Low Cholesterol Discharge Activity: Return to Normal Activity Call your doctor if you observe: Dizziness, Fainting spells, Chest pain, Increased palpitations (irregular heartbeat) Home Medications: Medications to take at Discharge duloxetine 60 mg capsule,delayed release 60 mg PO BID cap 07/27/17 lisinopril 20 mg tablet 20 mg PO QDAY 07/27/17 isosorbide mononitrate ER 60 mg tablet,extended release 24 hr 60 mg PO DAILY #90 tab 10/14/17 nitroglycerin 0.4 mg sublingual tablet 0.4 mg SUBLINGUAL Q5- 15M PRN #25 tab 10/14/17 polysaccharide iron complex 150 mg iron capsule 150 mg PO QDAY cap 11/13/17 Levothyroxine [Synthroid] 25 mcg PO DAILY 11/30/17 Metoprolol Tartrate [Lopressor (beta linn)] 50 mg PO BID 12/01/17 Omeprazole 40 mg PO BID #60 capsule. 12/03/17 Rosuvastatin Calcium [Crestor] 10 mg PO QHS 12/10/17 Warfarin [Coumadin] 8.5 mg PO DAILY@1700 01/04/18 Ondansetron HCl [Zofran] 4 mg PO Q6H PRN PRN #20 tab 01/05/18 Following Prescrptions Were Given to Patient: Ondansetron HCl [Zofran] 4 mg PO Q6H PRN PRN #20 tab PRN Reason: Nausea Primary Care Physician: Martin Gutierrez Chi, MD [Primary Care Provider] - Please follow up with your Primary Care Physician in: 1 Week Disposition: Home Minutes spent on discharge:: 35 Patient Condition:: Stable Medical Necessity - Tobacco Use Smoking Status: Current every day smoker Meaningful Use Info Meaningful Use Diagnoses (Choose all that apply): None applicable <Pernell Gurrola - Last Filed: 01/05/18 13:42> Discharge Date and Diagnosis - Secondary Discharge Diagnosis Chronic Problems (Last Updated 12/10/17 @ 10:37 by Tracy Larson) Iron deficiency anemia (Chronic) Dysarthria (Chronic) Expressive language disorder (Chronic) Other fci (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 (Chronic) Presence of stent in coronary artery (Chronic) Atherosclerotic heart disease of tejon coronary artery without angina pectoris (Chronic) PTCA of RA AND diagonal with intracoronary stent November 2008 Nicotine abuse (Chronic) Gastrointestinal bleed (Chronic) CAD (coronary artery disease) (Chronic) Hypertension (Chronic) Hyperlipidemia (Chronic) Hospital Course and Treatment Summary of Care Provided: Hospitalist note: Discharge summary above reviewed as well as physical examination and I agree with above discharge plan. Patient admitted because of nausea, vomiting and diarrhea and she was found to have viral gastroenteritis completed by hypokalemia and acute kidney injury. She was treated with IV fluids, IV antiemetics and his symptoms improved. Today, she has no more nausea or vomiting and she has no more diarrhea. Her kidney function returned back to normal. Admission creatinine was 1.77 and 1 down to 0.96 today after IV fluids. Her lactic acid was normal. Her vital signs are stable. Patient discharged home in a stable medical condition, discharged on same chronic home medication without any changes, recommended to hydrate herself well if she continued to have nausea or vomiting as well as diarrhea, recommended follow-up with PCP in 1 week. . Minutes spent on discharge:: 24 Code Visit OBSV Edgar AND M: [id number] Observation care discharge 01/05/18 1200 <Electronically signed by Altagracia FONSECA> Date Altagracia FONSECA 01/05/18 1342<Electronically signed by Pernell Gurrola MD> Cosigner Signature (if applicable): Date Pernell Gurrola MD CC: MARIAN Stanford; Pernell Gurrola; Martin Gutierrez MD Signed DISCHARGE INSTRUCTION Observed: 01/05/2018 Status: F Source: EYAD 11:51 AM [facility] REPOSITORY [facility] Medical Records Department [address] [place] [address] [place] [address] Instructions for Home/Discharge Instructions 01/05/18 1147 MR#: [id number] Acct: [id number] Name: ANGELES LARIOS Rep #: [id number] : 1960 57 From: Altagracia Stanford [employer] BL[employer]SM[employer]JenC PCP: Martin Gutierrez MD, Chi Status: ADM HEMAL - Discharge Diagnoses Current Active Problems: Current Active and Chronic Problems (Last Updated 12/10/17 @ 10:37 by Tracy Larson) Nausea AND vomiting (Acute) Diarrhea (Acute) You will use the following diet at home:: Cardiac Discharge Activity: Return to Normal Activity Call your doctor if you observe: Dizziness, Fainting spells, Chest pain, Increased palpitations (irregular heartbeat) Allergies/Adverse Reactions: Allergies bupropion [From Wellbutrin] Adverse Reaction (Severe, Verified 12/21/17 14:07) Rash codeine Adverse Reaction (Severe, Verified 12/21/17 14:07) Other PT REPORTS GOING TO SLEEP AND HAS HARD TIME WAKING UP Lccvcvj-Ujr-Otu Reductase Inhibitor Adverse Reaction (Severe, Verified 12/21/17 14:07) Other UNABLE TO WALK Medications to take at Discharge duloxetine 60 mg capsule,delayed release 60 mg PO BID cap 07/27/17 lisinopril 20 mg tablet 20 mg PO QDAY 07/27/17 isosorbide mononitrate ER 60 mg tablet,extended release 24 hr 60 mg PO DAILY #90 tab 10/14/17 nitroglycerin 0.4 mg sublingual tablet 0.4 mg SUBLINGUAL Q5- 15M PRN #25 tab 10/14/17 polysaccharide iron complex 150 mg iron capsule 150 mg PO QDAY cap 11/13/17 Levothyroxine [Synthroid] 25 mcg PO DAILY 11/30/17 Metoprolol Tartrate [Lopressor (beta linn)] 50 mg PO BID 12/01/17 Omeprazole 40 mg PO BID #60 capsule. 12/03/17 Rosuvastatin Calcium [Crestor] 10 mg PO QHS 12/10/17 Warfarin [Coumadin] 8.5 mg PO DAILY@1700 01/04/18 Ondansetron HCl [Zofran] 4 mg PO Q6H PRN PRN #20 tab 01/05/18 The following prescriptions were given: Ondansetron HCl [Zofran] 4 mg PO Q6H PRN PRN #20 tab PRN Reason: Nausea Primary Care Physician: Martin Gutierrez Chi, MD [Primary Care Provider] - Please follow up with your Primary Care Physician in: 1 Week Proposed Discharge Date: 01/05/18 01/05/18 1151 <Electronically signed by Altagracia FONSECA> Date Altagracia FONSECA CC: Martin Gutierrez MD PROTHROMBIN TIME W/INR Collected: 01/05/2018 Status: F Source: EYAD 5:10 AM [facility] REPOSITORY TYPE CODE TESTS RESULT OUT OF RANGE REFERENCE UNITS LAB L300.4150 11.7-14.9 SECONDS High PROTIME 16.2 LAB L300.4200 Normal INR 1.3 Performed By: #### L300.3900 #### [facility] [address] [place], [place], [id number] CBC-COMPLETE BLOOD CNT Collected: 01/05/2018 Status: F Source: EYAD NO DIFF 5:10 AM [facility] REPOSITORY TYPE CODE TESTS RESULT OUT OF RANGE REFERENCE UNITS LAB L100.1000 4.4-11.0 K/mm3 Low WBC 3.2 LAB L100.1200 4.2-5.4 M/mm3 Normal RBC 4.33 LAB L100.1300 12.0-15.0 g/dl Low HGB 11.4 LAB L100.1400 37-47 % Normal HCT 38.0 LAB L100.1500 81-99 fL Normal MCV 87.8 LAB L100.1600 27.0-32.0 pg Low MCH 26.3 LAB L100.1700 32-36 g/gl Low MCHC 30.0 LAB L100.1810 11.6-14.6 % High RDW CV 27.9 LAB L100.1820 35.1-43.9 fl High RDW SD 89.2 LAB L100.1900 150-450 K/mm3 Normal PLT 212 LAB L100.2000 6.2-12.0 fl Normal MPV 9.6 Performed By: #### L100.0500, L100.4500 #### [facility] [address] [place], [address] DIFFERENTIAL COMMENT Collected: 01/05/2018 Status: F Source: EYAD 5:10 AM [facility] REPOSITORY TYPE CODE TESTS RESULT OUT OF RANGE REFERENCE UNITS LAB L100.4500 Normal SMEAR COMMENT SCANNED Result Comment: 2+ ANISOCYTOSIS 1+ HYPOCHROMASIA Performed By: #### L100.0500, L100.4500 #### [facility] [address], [address] BASIC METABOLIC Collected: 01/05/2018 Status: F Source: EYAD PROFILE (BMP) 5:10 AM [facility] REPOSITORY TYPE CODE TESTS RESULT OUT OF RANGE REFERENCE UNITS LAB L501.0100 74-106 mg/dL Normal GLU 102 Result Comment: Fasting Glucose result from 100 to 125 mg/dL suggests IMPAIRED HOMEOSTASIS per A.D.A. criteria. Please note revised GLUCOSE reference range effective 2017. LAB L501.1000 7-18 mg/dL Normal BUN 16 LAB L501.1100 0.55-1.02 mg/dL Normal CREAT,SERUM 0.96 Result Comment: The validity of the calculated GFR AND GFRAA in patients over 70 years has not been determined. Clinical correlation is essential. LAB L501.1110 >60 mL/min Normal EST GFR 63 Result Comment: Non- GFR Calc LAB L501.1115 >60 mL/min Normal EST GFR - AA 76 Result Comment: GFR Calc LAB L501.1255 ml/min Normal Estimated CRCL 59.07 LAB L501.1300 10-20 RATIO Normal BUN/CRE 16.6 LAB L501.2200 8.5-10 mg/dL Low .1 CA 8.0 LAB L501.5300 136-14 mmol/L Normal 5 NA 140 LAB L501.5600 3.5-5. mmol/L Low 1 K 3.3 LAB L501.5900 98-107 mmol/L Normal CL 107 LAB L501.6100 21.0-3 mmol/L Normal 2.0 CO2 25.0 LAB L501.6200 5-15 Normal GAP 8 Performed By: #### L500.2500 #### [facility] [address] [place], [address] HISTORY AND PHYSICAL Observed: 01/04/2018 Status: F Source: [facility] EXAM 10:13 PM [facility] REPOSITORY [facility] Medical Records Department [address] [place] [address] History and Physical 01/04/186 MR#: [id number] Acct: [id number] Name: ANGELES LARIOS Rep #: [id number] : 1960 57 From: Joaquín Tillman MD PCP: Martin Gutierrez MD, Chi Status: REG ER Y Location: ED Problem List (1) Nausea AND vomiting Status: Acute Qualifiers: Vomiting Intractability: unspecified (2) Diarrhea Status: Acute Qualifiers: Diarrhea type: unspecified type Qualified Code(s): R19.7 - Diarrhea, unspecified (3) Presence of stent in coronary artery Status: Chronic (4) Atherosclerotic heart disease of tejon coronary artery without angina pectoris Status: Chronic Qualifiers: Comment: PTCA of RA AND diagonal with intracoronary stent November 2008 (5) Nicotine abuse Status: Chronic (6) CAD (coronary artery disease) Status: Chronic Qualifiers: (7) Hypertension Status: Chronic Qualifiers: (8) Hyperlipidemia Status: Chronic Qualifiers: History of Present Illness Date of Admission: 01/04/18 Chief Complaint: Nausea, vomiting and diarrhea The patient is a 57 year old female patient who presents to the ER by squad due to generalized illness. Onset of nausea and vomiting began this past Thursday and has progressed to more diarrhea today. She is feeling more weak and came in for evaluation. She has a history of recent hospitalization for gastrointestinal bleeding 1 month ago and received 3 units of PRBCs at that time. Today her hemoglobin is stable ,however, she has hypokalemia and acute kidney injury due to dehydration. She will be admitted for observation overnight for hydration. Past Medical History Past Medical History (Chronic Problems): Chronic Problems (Last Updated 12/10/17 @ 10:37 by Tracy Larson) Iron deficiency anemia (Chronic) Dysarthria (Chronic) Expressive language disorder (Chronic) Other fci (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 (Chronic) Presence of stent in coronary artery (Chronic) Atherosclerotic heart disease of tejon coronary artery without angina pectoris (Chronic) PTCA of RA AND diagonal with intracoronary stent November 2008 Nicotine abuse (Chronic) Gastrointestinal bleed (Chronic) CAD (coronary artery disease) (Chronic) Hypertension (Chronic) Hyperlipidemia (Chronic) Allergies bupropion [From Wellbutrin] Adverse Reaction (Severe, Verified 12/21/17 14:07) Rash codeine Adverse Reaction (Severe, Verified 12/21/17 14:07) Other PT REPORTS GOING TO SLEEP AND HAS HARD TIME WAKING UP Mvoahyp-Rvi-Jrv Reductase Inhibitor Adverse Reaction (Severe, Verified 12/21/17 14:07) Other UNABLE TO WALK Home Medications: Ambulatory Orders Medication Instructions Recorded duloxetine 60 mg capsule,delayed 60 mg PO BID cap 07/27/17 release lisinopril 20 mg tablet 20 mg PO QDAY 07/27/17 Surgical History: appendectomy Smoking Status: Current every day smoker - *Family History Maternal History Items: No pertinent history Review of Systems Constitutional: Reports: Weakness. Denies: Chills, Fever, Weight Change HEENT: Denies: Head Aches, Sinus Congestion, Sinus Drainage Cardiovascular: Denies: Chest Pain, Palpitations Respiratory: Denies: Cough, Shortness of breath at rest, Sputum production Gastrointestinal: Reports: Diarrhea, Nausea, Vomiting. Denies: Abdominal Pain Genitourinary: Denies: Dysuria Musculoskeletal: Denies: Joint Pain, Joint Tenderness Skin: Denies: Rash, Wounds Neurological: Denies: Numbness, Tingling, Focal weakness Psychiatric: Denies: Anxiety, Depression, Homicidal Ideations, Suicidal Ideations Hematologic/ Lymphatic: Denies: Easy Bruising, Easy Bleeding VTE Information - Inpt Only VTE Present on Admission: No VTE Mechan Device Prophylaxis: None VTE Pharm Prophylaxis ordered?: Yes Patient Problems: Active and Suspected Problems (Last Updated 12/10/17 @ 10:37 by Tracy Larson) Nausea AND vomiting (Acute) Diarrhea (Acute) - Physical Exam General: Alert, Oriented x3, Cooperative HEENT: Atraumatic, Normocephalic Neck: Supple Lungs: Clear to auscultation, Normal air movement Cardiovascular: Regular rate, Normal S1, Normal S2, No murmurs Abdomen: Bowel Sounds Present, Soft, Non Tender, Obese Extremities: No edema, Capillary Refill Less than 3 Seconds Skin: No rashes Musculoskeletal: No Tenderness to Palpation of Joints or Extremities Neurological: Neuro grossly intact Psych/Mental Status: Normal Affect, Appropriate Vital Signs Temp Pulse Resp BP Pulse Ox 97.7 F L 68 15 97/58 L 95 01/04/18 19:56 01/04/18 22:00 01/04/18 22:00 01/04/18 22:00 01/04/18 22:00 Oxygen Flow Rate (L/min) 2 Oxygen Delivery Method Nasal Cannula Weight: 267 lb 6.731 oz Body Mass Index (BMI) 43.1 Laboratory Tests Past 24 Hrs WBC 5.0 RBC 4.84 Hgb 12.7 Hct 42.3 MCV 87.4 MCH 26.2 L MCHC 30.0 L RDW 27.8 H WBC RBC Hgb Hct MCV MCH MCHC RDW RDW Differential Assessment/Plan Active and Suspected Problems (Last Updated 12/10/17 @ 10:37 by Tracy Larson) Nausea AND vomiting (Acute) Diarrhea (Acute) Chronic Problems (Last Updated 12/10/17 @ 10:37 by Tracy Larson) Iron deficiency anemia (Chronic) Dysarthria (Chronic) Expressive language disorder (Chronic) 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 termite helper (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 (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) Presence of stent in coronary artery (Chronic) Atherosclerotic heart disease of tejon coronary artery without angina pectoris (Chronic) PTCA of RA AND diagonal with intracoronary stent November 2008 Nicotine abuse (Chronic) Gastrointestinal bleed (Chronic) CAD (coronary artery disease) (Chronic) Hypertension (Chronic) Hyperlipidemia (Chronic) Plan - admit to general medical floor - IV hydration with normal saline at 125cc/hour - replace potassium - cbc, bmp in am - stool culture, and c-diff - continue routine home medications - liquid diet advance as tolerated - zofran 4mg iv q 6hrs prn 01/04/18 2024 <Electronically signed by Joaquín Tillman MD> Date Joaquín Tillman MD Cosigner Signature: Date (if applicable) CC: Joaquín Tillman MD; Martin Gutierrez MD Signed EMERGENCY DEPARTMENT Observed: 01/04/2018 Status: F Source: [place] SUMMARY 10:03 PM [facility] REPOSITORY [facility] Medical Records Department [address] [place] [address] Emergency Department Summary 01/04/18 2156 MR#: [id number] Acct: [id number] Name: ANGELES LARIOS Rep #: [id number] : 1960 57 From: Norman Proctor MD PCP: Matt FAROOQ,Martin Perdue Status: REG ER - ER Visit Summary Date of Service: 01/04/18 Chief Complaint: Nausea and vomiting that started Thursday with brown/coffee-ground emesis History of Present Illness: The patient is a 57 F presents with nausea vomiting started Thursday. She has vomited several times. She does give complaint of lightheadedness. She states her blood pressures normally elevated. She did report brown liquid emesis with possible coffee grounds. She has dark green stool secondary to iron. She denies fever, chills night sweats. She denies any anginal symptoms. Denies dyspnea on exertion, orthopnea, PND. She does complain of epigastric discomfort. She denies any urologic symptoms. She denies myalgias arthralgias. Physical Examination: Vital signs remarkable for blood pressure of 94/63. Vital signs otherwise unremarkable. She has normal color to the conjunctive and skin. Mucosa is dry. Heart is regular without murmur, gallop or rub. Lungs are clear to auscultation. Abdomen is marked for epigastric discomfort. Neuro exam is nonfocal. Please read written note for complete detail Test Results: H AND H is 12.7 and 42.3. Creatinine is 1.77 with a GFR of 31. Lactate is normal 1.5. Orogastric tube was placed. There was bile with no evidence of bleeding. Emergency Department Course and Treatment: OG was placed because patient describes brown emesis/coffee grounds with recent history of GI bleed. Since she is hypotensive she received IV fluids. Appropriate blood work was obtained. Suspect Siri-Shipley tear since OG is presently negative. Treatment Plan: IV fluids and admission to the hospital Disposition: Admit Impression: 1. Hypotension fluid responsive 2. Nausea and vomiting with severe dehydration 3. Acute kidney injury secondary #2 4. History of coronary disease 5. History of hypertension 6. History of hypercholesterolemia This note was generated with [employer] software. It may contain incorrect words, spelling, and punctuation that were not noted in review of the chart prior to signing ED Disposition - Plan for ED Patient: Chief Complaint: General Illness Referrals: Martin Gutierrez Chi, MD [Primary Care Provider] - What to do if you have Problems For any increased pain, shortness of breath, bleeding, nausea or vomiting, chest pain, or any unexpected problems, contact your Primary Care Provider. Call [facility] ([phone]) or report to the closest Emergency Room. Call 911 if necessary. 01/04/182202 <Electronically signed by Norman Proctor MD> Date Norman Proctor MD Cosigner Signature (If Indicated): Date CC: Martin Gutierrez MD LACTIC ACID Collected: 01/04/2018 Status: F Source: [place] 9:00 PM [facility] REPOSITORY Order Comment: Yes/No query for Sepsis Lactate Rule Y TYPE CODE TESTS RESULT OUT OF RANGE REFERENCE UNITS LAB L503.6005 0.4-2.0 mmol/L Normal LACTIC ACID 1.5 Performed By: #### L503.6005 #### [facility] [address] [place], [address] CBC W/DIFF, AUTOMATED Collected: 01/04/2018 Status: F Source: [place] 8:05 PM [facility] REPOSITORY TYPE CODE TESTS RESULT OUT OF RANGE REFERENCE UNITS LAB L100.1000 4.4-11.0 K/mm3 Normal WBC 5.0 LAB L100.1200 4.2-5.4 M/mm3 Normal RBC 4.84 LAB L100.1300 12.0-15.0 g/dl Normal HGB 12.7 LAB L100.1400 37-47 % Normal HCT 42.3 LAB L100.1500 81-99 fL Normal MCV 87.4 LAB L100.1600 27.0-32.0 pg Low MCH 26.2 LAB L100.1700 32-36 g/gl Low MCHC 30.0 LAB L100.1810 11.6-14.6 % High RDW CV 27.8 LAB L100.1820 35.1-43.9 fl High RDW SD 88.8 LAB L100.1900 150-450 K/mm3 Normal PLT 257 LAB L100.2000 6.2-12.0 fl Normal MPV 9.9 LAB L100.2100 47-70 % Normal NEUT% 53.1 LAB L100.2200 19-41 % Normal LY% 30.8 LAB L100.2300 0-10 % High MONO% 15.3 LAB L100.2400 0-5 % Normal EO% 0.2 LAB L100.2500 0-1 % Normal BASO% 0.4 LAB L100.2550 0.0-0.9 % Normal IM GRAN % 0.200 Result Comment: IG% - Immature Granulocytes (promyelocytes, myelocytes and metamyelocytes) > 1% indicates that a LEFT SHIFT is Present. LAB L100.2620 2.0-7.7 X10 3/uL Normal Absolute Neut 2.7 LAB L100.2720 0.83-4.51 X10 3/ul Normal Absolute Lymph 1.55 LAB L100.5500 ADEQ PLT Normal EST ADEQUATE LAB L100.7300 ANISO Normal RARE LAB L100.7800 Normal MACROCYTE RARE Performed By: #### L100.0100 #### [facility] [address] [place], [address] PROTHROMBIN TIME W/INR Collected: 01/04/2018 Status: F Source: [place] 8:05 PM [facility] REPOSITORY TYPE CODE TESTS RESULT OUT OF RANGE REFERENCE UNITS LAB L300.4150 11.7-14.9 SECONDS High PROTIME 16.2 LAB L300.4200 Normal INR 1.3 Performed By: #### L300.3900, L300.4310 #### [facility] [address] [place], [place], [id number] PARTIAL THROMBOPLAST Collected: 01/04/2018 Status: F Source: [place] TIME 8:05 PM [facility] REPOSITORY TYPE CODE TESTS RESULT OUT OF REFERENCE UNITS RANGE LAB L300.4310 24.1-36.2 Seconds High PTT 45.8 Performed By: #### L300.3900, L300.4310 #### [facility] [address] [place], [address] BASIC METABOLIC Collected: 01/04/2018 Status: F Source: [place] PROFILE (BMP) 8:05 PM [facility] REPOSITORY TYPE CODE TESTS RESULT OUT OF RANGE REFERENCE UNITS LAB L501.0100 74-106 mg/dL High GLU 147 Result Comment: Fasting Glucose result greater than or equal to 126 mg/dL suggests DIABETES MELLITUS per A.D.A. criteria. Please note revised GLUCOSE reference range effective 2017. LAB L501.1000 7-18 mg/dL Normal BUN 17 LAB L501.1100 0.55-1.02 mg/dL High CREAT,SERUM 1.77 Result Comment: The validity of the calculated GFR AND GFRAA in patients over 70 years has not been determined. Clinical correlation is essential. LAB L501.1110 >60 mL/min Low EST GFR 31 Result Comment: Non- GFR Calc LAB L501.1115 >60 mL/min Low EST GFR - AA 38 Result Comment: GFR Calc LAB L501.1255 ml/min Normal Estimated CRCL 32.04 LAB L501.1300 10-20 RATIO Low BUN/CRE 9.6 LAB L501.2200 8.5-10 mg/dL Normal .1 CA 8.6 LAB L501.5300 136-14 mmol/L Normal 5 NA 137 LAB L501.5600 3.5-5. mmol/L Low 1 K 3.3 LAB L501.5900 98-107 mmol/L Normal CL 103 LAB L501.6100 21.0-3 mmol/L Normal 2.0 CO2 25.0 LAB L501.6200 5-15 Normal GAP 9 Performed By: #### L500.2500 #### [facility] [address] [place], [address] TYPE AND SCREEN Collected: 01/04/2018 Status: F Source: [place] 8:05 PM [facility] REPOSITORY Order Comment: Reason for Type AND Screen/Red Cells: HEMORRHAGE, GI BLEED TYPE CODE TESTS RESULT OUT OF RANGE REFERENCE UNITS LAB B10.0800 O Normal BLOOD TYPE GEL POSITIVE LAB B100.4000 Normal Antibody NEGATIVE Screen Performed By: #### B101.7450 #### [facility] [address] [place], [address] ONCOLOGY HISTORY AND Observed: 12/10/2017 Status: F Source: [place] PHYSICAL 11:32 AM [facility] REPOSITORY [facility] Medical Records Department [address] [place] [address] History and Physical 12/10/17 1115 MR#: [id number] Acct: [id number] Name: ANGELES LARIOS Rep #: [id number] : 1960 57 From: Simon Ulloa MD PCP: Matt FAROOQ,Martin Perdue Status: REG RCR Y Location: OMD - Problem List (1) Iron deficiency anemia Status: Chronic (2) Gastrointestinal bleed Status: Chronic Qualifiers: Subjective Date of Service:: 12/10/17 Chief Complaint: Fatigue, anemia History of Present Illness: Patient is a 57-year-old female postmenopausal with significant atherosclerotic arterial disease on chronic anticoagulation with Coumadin and chronic with acute episodes of GI blood loss who has been on oral iron supplements since August 2017 (melena reported by patient prior to starting oral iron supplement in August 2017). She was hospitalized in November 2017 with acute GI bleed, melena and a hemoglobin of 5 g/dl She was transfused with packed red cells, given IV iron, and upper and lower GI endoscopies did not reveal any active bleeding. A capsule study is under consideration at this time. She is under the care of Dr. Ortiz and Cindy for these issues. Power of Operations Staff Specialist Security: No Living Will: No Health History: Past Medical History (Last Updated 12/10/17 @ 10:37 by Tracy Larson) CAD (coronary artery disease) (Chronic) Hypertension (Chronic) Hyperlipidemia (Chronic) BLOOD CLOT (Acute) Iron deficiency anemia (Acute) LEFT ARM SURGERY (Acute) CVA (cerebral vascular accident) (Chronic) Irritable bowel syndrome (Chronic) Sleep apnea (Chronic) Fibromyalgia (Inactive) Past Surgical History (Last Reviewed 11/24/17 @ 13:17 by Phi Morris) History of left-sided carotid endarterectomy (Resolved) Hx of appendectomy (Resolved) Family History (Last Reviewed 12/10/17 @ 11:08 by Tracy Larson) Father Myocardial infarction cardiomopathy Mother Atrial fibrillation Hypertension Hyperlipidemia Diabetes Brother CAD (coronary artery disease) cardiomopathy Myocardial infarction Sister cardiomopathy Allergies/Adverse Reactions: Allergy/AdvReac Type Severity Reaction Status Date / Time bupropion [From Wellbutrin] AdvReac Severe Rash Verified 12/10/17 10:40 Home Medications Medication Instructions Recorded duloxetine 60 mg capsule,delayed 60 mg PO BID cap 07/27/17 release lisinopril 20 mg tablet 20 mg PO QDAY 07/27/17 Risk Factors Social History Smoking Status Current every day smoker Tobacco Risk Data: Tobacco Risk Smoking Status Current every day smoker Type of tobacco: Smokeless tobacco usage: Never Items/Day: Year started: Years used: 30 Counseled to quit/cut down: Reason for no counseling performed: Reason for no pharmacotherapy: Tobacco use comments: Passive smoke exposure: Yes Substance Risk Drug use: No Caffeine use [drinks/day]: 2 Alcohol use: No Type of alcohol: Drinks per day: Has patient felt the need to cut down: Has the patient been annoyed by complaints: Has the patient felt guilty about drinking: Has the patient needed an 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 Denies: Fever, Sweats, Weight loss, Appetite change, Chills Cardiovascular:: Reports: Dyspnea on exertion. Denies: Chest pain, Palpitations, Orthopnea, PND, Shortness of breath Respiratory: Reports: Shortness of breath upon exertion. Denies: Cough, Hemoptysis, Shortness of Breath, Wheezing Gastrointestinal:: Reports: Melena - Pre-date oral iron supplementation. Denies: Abdominal pain, Nausea, Vomiting, Diarrhea, Constipation, Hematochezia Genitourinary: Denies: Dysuria, Hematuria, 15, Flank pain Musculoskeletal:: Reports: Arthritis, Arthralgia. Denies: Back pain, Myalgia Skin: Reports: - - Bruises easily. Denies: Rash, Skin Changes, Wounds Neurological:: Reports: - - Recovered well from a previous stroke. Denies: Headache, Dizziness, Visual changes, Tinnitus, Hearing loss Psychiatric: Denies: Anxiety, Depression, Homicidal Ideations, Suicidal Ideations Comment: Unaware of any lumps in her breasts Vital Signs Height 5 ft 6.5 in Weight: 123.559 kg Weight in Pounds 272.4 lbs - Physical Exam General: Alert, Oriented x3, No apparent distress, - - Obese ECOG 2 Pale HEENT: Atraumatic, PERRLA, EOMI, Normocephalic Oropharynx:: Dry mucosa Neck:: Supple, Trachea midline. Negative for: JVD, bilateral Cardiac:: Regular rate, Regular rhythm, Normal S1, Normal S2. Negative for: Murmur Lungs: Clear to auscultation, Excusion symmetrical. Negative for: Rhonchi, Wheezes Abdomen:: Bowel sounds x 4, Soft, Non-tender, Non-distended. Negative for: Hepatosplenomegaly Extremities:: Negative for: Cyanosis, Edema Neurological: Neuro grossly intact - Nonlateralizing Skin:: Ecchymosis. Negative for: Lesions, Rash, Petechiae Psychiatric:: Appropriate affect, Euthymic Lymphatics:: Negative for: Cervical lymphadenopathy, Supraclavicular lymphadenopathy, Axillary lymphadenopathy Laboratory Data: Reviewed in EMR Laboratory Tests WBC Hgb 5.7 L* Plt Count Creatinine 0.75 Iron Saturation 3.3 L Ferritin 3 L WBC 8.0 Hgb 9.2 L Plt Count 236 Creatinine Iron Saturation Ferritin Assessment and Plan 57-year-old female, postmenopausal with severe iron deficiency anemia due to acute and chronic GI blood loss source not identified on endoscopies (November 2017, capsule study under consideration). Patient has been on oral iron supplements since August 2017. Recommendations: #1 continue oral iron supplement most likely termite helper unless source of GI blood loss is identified and permanently eliminate. Advice 1 up to 3 tablets daily depending on tolerance. #2 Supplement oral iron with IV infusion as guided by iron studies. Patient will receive a loading dose of fenofibrate 300 mg weekly 3 and will be reevaluated. #3 For cancer screening patient was noted to be over due for CT chest screening for lung cancer (she is a 30+ pack year smoker still active smoker) and mammogram. Both studies ordered. Impression and recommendations discussed. Risks of IV iron especially anaphylaxis discussed. Follow-up in 1 month Medications: Prescriptions This Visit Medication Instructions Recorded Rosuvastatin Calcium [Crestor] 10 mg PO DAILY 12/10/17 Primary Care Provider: Martin Gutierrez Referring Provider: Martin Gutierrez 12/10/17 1132 <Electronically signed by Simon Ulloa MD> Date Simon Ulloa MD Cosigner Signature: Date (if applicable) CC: Simon Ulloa MD; Ralph Smith MD; Martin Gutierrez MD; Tye Foster Signed IRON BINDING Collected: 12/07/2017 Status: F Source: [place] CAPACITY,TOTAL 2:35 PM [facility] REPOSITORY TYPE CODE TESTS RESULT OUT OF RANGE REFERENCE UNITS LAB L503.6075 250-450 ug/dL Normal TIBC 421 Performed By: #### L503.6075, L503.6150 #### [facility] [address] [place], [address] IRON Collected: 12/07/2017 Status: F Source: [place] 2:35 PM [facility] REPOSITORY TYPE CODE TESTS RESULT OUT OF RANGE REFERENCE UNITS LAB L503.6150 50-170 ug/dL Low IRON 26 Performed By: #### L503.6075, L503.6150 #### [facility] [address] [place], [place], [address] CBC W/DIFF, AUTOMATED Collected: 12/07/2017 Status: F Source: [place] 2:35 PM [facility] REPOSITORY TYPE CODE TESTS RESULT OUT OF RANGE REFERENCE UNITS LAB L100.1000 4.4-11.0 K/mm3 Normal WBC 8.0 LAB L100.1200 4.2-5.4 M/mm3 Low RBC 3.87 LAB L100.1300 12.0-15.0 g/dl Low HGB 9.2 LAB L100.1400 37-47 % Low HCT 32.2 LAB L100.1500 81-99 fL Normal MCV 83.2 LAB L100.1600 27.0-32.0 pg Low MCH 23.8 LAB L100.1700 32-36 g/gl Low MCHC 28.6 LAB L100.1810 11.6-14.6 % High RDW CV 24.7 LAB L100.1820 35.1-43.9 fl High RDW SD 60.1 LAB L100.1900 150-450 K/mm3 Normal PLT 236 LAB L100.2000 6.2-12.0 fl Normal MPV 11.5 LAB L100.2100 47-70 % Normal NEUT% 58.3 LAB L100.2200 19-41 % Normal LY% 27.3 LAB L100.2300 0-10 % High MONO% 11.8 LAB L100.2400 0-5 % Normal EO% 1.4 LAB L100.2500 0-1 % Normal BASO% 0.7 LAB L100.2550 0.0-0.9 % Normal IM GRAN % 0.500 Result Comment: IG% - Immature Granulocytes (promyelocytes, myelocytes and metamyelocytes) > 1% indicates that a LEFT SHIFT is Present. LAB L100.2620 2.0-7.7 X10 3/uL Absolute Neut Normal 4.7 LAB L100.2720 0.83-4.51 X10 3/ul Absolute Lymph Normal 2.19 LAB L100.5500 ADEQ PLT EST Normal ADEQUATE LAB L100.7300 ANISO Normal 2+ LAB L100.7500 POLYCHROMASIA Normal RARE LAB L100.7600 HYPOCHROMASIA Normal 1+ LAB L100.7700 MICROCYTES Normal 2+ LAB L100.7800 MACROCYTE Normal 1+ Performed By: #### L100.0100 #### [facility] [address], [address] DISCHARGE SUMMARY Observed: 12/03/2017 Status: F Source: [place] 3:36 PM [facility] REPOSITORY [facility] Medical Records Department [address] [place] [address] Discharge Summary 12/03/17 1520 MR#: [id number] Acct: [id number] Name: ANGELES LARIOS Rep #: [id number] : 1960 57 From: Eneida Reed MD PCP: Matt FAROOQ,Martin Perdue Status: ADM IN Y Location: [place] [id number] Discharge Date and Diagnosis - Problem List Patient Problems: Active and Suspected Problems (Last Reviewed 11/24/17 @ 13:16 by Phi Morris) Gastrointestinal bleed (Acute) Date of Admission: 11/30/17 Date of Discharge: 12/03/17 - Primary Discharge Diagnosis Active and Suspected Problems (Last Reviewed 11/24/17 @ 13:16 by Phi Morris) Gastrointestinal bleed (Acute) - Secondary Discharge Diagnosis Chronic Problems (Last Reviewed 11/24/17 @ 13:16 by Phi Morris) Nicotine abuse (Chronic) Atherosclerotic heart disease of tejon coronary artery without angina pectoris (Chronic) PTCA of RA AND diagonal with intracoronary stent November 2008 Presence of stent in coronary artery (Chronic) Other fci (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 (Chronic) CAD (coronary artery disease) (Chronic) Hypertension (Chronic) Hyperlipidemia (Chronic) Dysarthria (Chronic) Expressive language disorder (Chronic) Hospital Course and Treatment 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 Foster, GI. Operations: None Procedures: Colonoscopy, EGD Summary of Care Provided: Patient is a 57 years old female who was admitted on 12/30/17 severe anemia of Hgb 5.7. She has history of iron deficiency anemia, had been on iron supplement. She was having profound fatigue, found to have severe anemia. She had one black stool prior to admission. She was admitted to ICU, received 3 units of PRBC, along with treatment with IV pantoprazole drip. She underwent EGD, then colonoscopy, which were unremarkable. Diet was advanced, she tolerated well. She did not have any more melena or hematochezia, denied of any abdominal pain, or nausea and vomiting. Her Hgb was 7.6 on the following day, significant drop from 8.9, although she was completely asymptomatic and she did not have any more bowel movements. Hgb was repeated which was 7.7. Plan to discharge home with repeat CBC in 4 to 5 days. Transaction was made and follow-up results with Dr. Gutierrez. 1. Acute blood loss anemia secondary to upper GI bleed with history of chronic anemia: She was admitted to ICU initially. 3 units PRBC, along with pantoprazole drip, later changed to 40 mg IV Q12H. Hgb remained stable until the day of discharge, although there is no evidence of active bleeding. Repeated Hgb 7.7 (from 7.6). Iron profile noted and is classical of iron deficiency anemia with low ferritin, low transferrin saturation and high TIBC. She received Veofer 200 mg IV, tolerated well. EGD and colonoscopy were done with no significant finding. Plan to follow up with Dr. Foster as outpatient for capsule endoscopy. Follow up with Dr. Gutierrez. Resume Coumadin, which was for embolic thrombosis of lower extremity in 06/2017. She reports that she was on 8.5 mg a day prior to admission. Resume home dosage and follow up with Dr. Gutierrez. 2. Cardiovascular disease: Coronary artery status post stent, PTCA of RCA and diagonal 9, right lower extremity arterial thrombosis, bilateral carotid stenosis status post endarterectomy: Patient is on isosorbide mononitrate, lisinopril, metoprolol and nitroglycerin as needed at home. Due to history of arterial thrombosis with significant history of atheroembolic disease, started on Coumadin 5 mg daily. INR tomorrow a.m. Avoid NSAIDs and antiplatelet agents. 3. Other chronic comorbidities include hypertension, dyslipidemia, and nicotine use. Discharge Diet: - - Cardiac. Discharge Activity: Return to Normal Activity Call your doctor if you observe: - - Dark stool / blood in stool, nausea, vomiting. Home Medications: Medications to take at Discharge duloxetine 60 mg capsule,delayed release 60 mg PO BID cap 07/27/17 lisinopril 20 mg tablet 20 mg PO QDAY 07/27/17 isosorbide mononitrate ER 60 mg tablet,extended release 24 hr 60 mg PO DAILY #90 tab 10/14/17 nitroglycerin 0.4 mg sublingual tablet 0.4 mg SUBLINGUAL Q5- 15M PRN #25 tab 10/14/17 polysaccharide iron complex 150 mg iron capsule 150 mg PO QDAY cap 11/13/17 rosuvastatin 10 mg tablet 20 mg PO QHS tab 11/23/17 Levothyroxine [Synthroid] 25 mcg PO DAILY 11/30/17 Metoprolol Tartrate [Lopressor (beta linn)] 50 mg PO BID 12/01/17 Omeprazole 40 mg PO BID #60 capsule. 12/03/17 Warfarin [Coumadin] 8.5 mg PO DAILY@1700 tablet 12/03/17 Following Prescrptions Were Given to Patient: Omeprazole 40 mg PO BID #60 capsule. Primary Care Physician: Martin Gutierrez Chi, MD [Primary Care Provider] - Please follow up with your Primary Care Physician in: in 5 to 7 days. Please Follow Up With: Tye Foster MD When: 2 to 3 weeks Disposition: Home Patient Condition:: Good Medical Necessity - Tobacco Use Smoking Status: Current every day smoker Meaningful Use Info Meaningful Use Diagnoses (Choose all that apply): None applicable Code Visit Inpatient E AND M: 63255 Disch Hosp 12/03/17 1536 <Electronically signed by Eneida Reed MD> Date Eneida Reed MD Cosigner Signature (if applicable): Date CC: Martin Gutierrez MD; Eneida Reed M.D. Signed DISCHARGE INSTRUCTION Observed: 12/03/2017 Status: F Source: [place] 3:20 PM [facility] REPOSITORY [facility] Medical Records Department [address] [place] [address] Instructions for Home/Discharge Instructions 12/03/17 1515 MR#: [id number] Acct: [id number] Name: ANGELES LARIOS Rep #: [id number] : 1960 57 From: Eneida Reed MD PCP: Martin Gutierrez MD, Chi Status: ADM IN - Discharge Diagnoses Current Active Problems: Current Active and Chronic Problems (Last Reviewed 11/24/17 @ 13:16 by Phi Morris) Gastrointestinal bleed (Acute) Reason(s) for Visit for Discharge Instructions: GI bleed You will use the following diet at home:: Cardiac Your food should be the consistency of: Regular Your liquids should be the consistency of: Regular/Thin Discharge Activity: Return to Normal Activity Call your doctor if you observe: - - Dark stool / blood in stool, nausea, vomiting. Pending Tests on Discharge: CBC to be done in 4 to 5 days. Follow up result with Dr. Gutierrez. Allergies/Adverse Reactions: Allergies bupropion [From Wellbutrin] Allergy (Verified 11/30/17 18:17) Rash Fwtisft-Opg-Kuf Reductase Inhibitor Allergy (Verified 11/30/17 18:17) Other UNABLE TO WALK codeine Adverse Reaction (Verified 11/30/17 18:17) Other PT REPORTS GOING TO SLEEP AND HAS HARD TIME WAKING UP Medications to take at Discharge duloxetine 60 mg capsule,delayed release 60 mg PO BID cap 07/27/17 lisinopril 20 mg tablet 20 mg PO QDAY 07/27/17 isosorbide mononitrate ER 60 mg tablet,extended release 24 hr 60 mg PO DAILY #90 tab 10/14/17 nitroglycerin 0.4 mg sublingual tablet 0.4 mg SUBLINGUAL Q5- 15M PRN #25 tab 10/14/17 polysaccharide iron complex 150 mg iron capsule 150 mg PO QDAY cap 11/13/17 rosuvastatin 10 mg tablet 20 mg PO QHS tab 11/23/17 Levothyroxine [Synthroid] 25 mcg PO DAILY 11/30/17 Metoprolol Tartrate [Lopressor (beta linn)] 50 mg PO BID 12/01/17 Omeprazole 40 mg PO BID #60 capsule. 12/03/17 Warfarin [Coumadin] 8.5 mg PO DAILY@1700 tablet 12/03/17 The following prescriptions were given: Omeprazole 40 mg PO BID #60 capsule. Primary Care Physician: Martin Gutierrez Chi, MD [Primary Care Provider] - Please follow up with your Primary Care Physician in: in 5 to 7 days. Please Follow Up With: Tye Foster MD When: 2 to 3 weeks 12/03/17 1520 <Electronically signed by Eneida Reed MD> Date Eneida Reed MD CC: Moses Gloria D.O.; Martin Gutierrez MD; Tye Foster , HEMOGLOBIN AND Collected: 12/03/2017 Status: F Source: [place] HEMATOCRIT 2:07 PM [facility] REPOSITORY TYPE CODE TESTS RESULT OUT OF RANGE REFERENCE UNITS LAB L100.1300 12.0-15.0 g/dl Low HGB 7.7 LAB L100.1400 37-47 % Low HCT 26.8 Performed By: #### L100.0600 #### [facility] [address] [place], [address] 12 LEAD ELECTROCARDIOGRAM Observed: 12/03/2017 Status: F Source: [place] 1:55 PM [facility] Cardiovascular Services [address] [place] [address] 12 Lead EKG 11/30/17 1907 MR#: [id number] Acct: [id number] Name: ANGELES LARIOS Rep #: [id number] : 1960 57 From: Efrain Samuel MD Attending Dr: Eneida Reed M.D. Status: ADM IN Ordering Dr: Wilman Villa MD Date: 11/30/17 Location: [facility] Sex: F C Admitted: 11/30/17 Test Reason : HYPOTENSION Blood Pressure : / mmHG Vent. Rate : 078 BPM Atrial Rate : 078 BPM P-R Int : 158 ms QRS Dur : 096 ms QT Int : 386 ms P-R-T Axes : 057 044 047 degrees QTc Int : 440 ms Normal sinus rhythm Normal ECG Confirmed by JIMMIE FAROOQ, EFRAIN ([id number]), online content editor MANJIT PINEDA ([id number]) on 12/03/2017 1:54:50 PM Referred By: CONCHITA Confirmed By:EFRAIN SAMUEL MD 12/03/17 1354 Date Efrain Samuel MD CC: Wilman Villa MD; Martin Gutierrez MD; Eneida Reed M.D. Signed BASIC METABOLIC Collected: 12/03/2017 Status: F Source: [place] PROFILE (BMP) 5:50 AM [facility] REPOSITORY TYPE CODE TESTS RESULT OUT OF RANGE REFERENCE UNITS LAB L501.0100 74-106 mg/dL Normal GLU 98 Result Comment: Please note revised GLUCOSE reference range effective 2017. LAB L501.1000 7-18 mg/dL Normal BUN 8 LAB L501.1100 0.55-1.02 mg/dL Normal CREAT,SERUM 0.75 Result Comment: The validity of the calculated GFR AND GFRAA in patients over 70 years has not been determined. Clinical correlation is essential. LAB L501.1110 >60 mL/min Normal EST GFR 84 Result Comment: Non- GFR Calc LAB L501.1115 >60 mL/min Normal EST GFR - AA 101 Result Comment: GFR Calc LAB L501.1255 ml/min Normal Estimated CRCL 78.54 LAB L501.1300 10-20 RATIO Normal BUN/CRE 10.6 LAB L501.2200 8.5-10 mg/dL Normal .1 CA 8.5 LAB L501.5300 136-14 mmol/L Normal 5 NA 142 LAB L501.5600 3.5-5. mmol/L Normal 1 K 3.9 LAB L501.5900 98-107 mmol/L High CL 108 LAB L501.6100 21.0-3 mmol/L Normal 2.0 CO2 26.0 LAB L501.6200 5-15 Normal GAP 8 Performed By: #### L500.2500 #### [facility] [address] [place], [address] CBC W/DIFF, AUTOMATED Collected: 12/03/2017 Status: F Source: [place] 5:50 AM [facility] REPOSITORY TYPE CODE TESTS RESULT OUT OF RANGE REFERENCE UNITS LAB L100.1000 4.4-11.0 K/mm3 Normal WBC 5.7 LAB L100.1200 4.2-5.4 M/mm3 Low RBC 3.46 LAB L100.1300 12.0-15.0 g/dl Low HGB 7.6 LAB L100.1400 37-47 % Low HCT 26.7 LAB L100.1500 81-99 fL Low MCV 77.2 LAB L100.1600 27.0-32.0 pg Low MCH 22.0 LAB L100.1700 32-36 g/gl Low MCHC 28.5 LAB L100.1810 11.6-14.6 % High RDW CV 20.0 LAB L100.1820 35.1-43.9 fl High RDW SD 56.4 LAB L100.1900 150-450 K/mm3 Normal PLT 227 LAB L100.2000 6.2-12.0 fl Normal MPV 9.9 LAB L100.2100 47-70 % Normal NEUT% 51.3 LAB L100.2200 19-41 % Normal LY% 35.9 LAB L100.2300 0-10 % High MONO% 10.5 LAB L100.2400 0-5 % Normal EO% 1.4 LAB L100.2500 0-1 % Normal BASO% 0.7 LAB L100.2550 0.0-0.9 % Normal IM GRAN % 0.200 Result Comment: IG% - Immature Granulocytes (promyelocytes, myelocytes and metamyelocytes) > 1% indicates that a LEFT SHIFT is Present. LAB L100.2620 2.0-7.7 X10 3/uL Normal Absolute Neut 2.9 LAB L100.2720 0.83-4.51 X10 3/ul Normal Absolute Lymph 2.04 Performed By: #### L100.0100 #### [facility] [address] [place], [address] PROTHROMBIN TIME W/INR Collected: 12/03/2017 Status: F Source: [place] 5:50 AM [facility] REPOSITORY TYPE CODE TESTS RESULT OUT OF RANGE REFERENCE UNITS LAB L300.4150 11.7-14.9 SECONDS Normal PROTIME 14.0 LAB L300.4200 Normal INR 1.1 Performed By: #### L300.3900 #### [facility] [address] [place], [address] OPERATIVE REPORT Observed: 12/02/2017 Status: F Source: [place] 1:05 PM [facility] REPOSITORY [facility] Medical Records Department [address] [place] [id number] Operative Report 12/02/17 1301 MR#: [id number] Acct: [id number] Name: ANGELES LARIOS Rep #: [id number] : 1960 57 From: Tye Foster MD PCP: Matt FAROOQ,Martin Perdue Status: ADM IN Location: [place] [address] Operative Report Date of Procedure: 12/02/17 Preop diagnosis: [Patient with GI bleeding and iron deficiency anemia] Postop diagnosis: Colonoscopy to the cecum no evidence of lower GI blood loss] Anesthesia:[Provided the MAC] Instrument:[Olympus adjustable pediatric colonoscope] Informed consent was taken prior to procedure. The patient was brought to the endoscopy suite and placed in the left shoulder down. Anesthesia provided the MAC. Rectal exam was performed prior to inserting the scope. The colonoscope was passed into the rectum the rectal mucosa was normal. Moving up the left colon there were numerous diverticuli and spasm in the sigmoid area glucagon 1 mg IV was given. After several minutes the scope was readvanced up towards the splenic flexure the mucosa was normal across the transverse colon there were no large polyps seen. Down the right colon the cecum was well-visualized there is some liquid this was sucked up into the colonoscope were no large polyps no evidence of any vascular malformations in the right colon. The scope was withdrawn from the right colon there were no large polyps seen back across the transverse colon mucosa remain normal. Below the splenic flexure there was diverticulosis and myochosis throughout the left colon retroflexion performed the rectum showed internal hemorrhoids the colon decompressed and the patient tolerated procedure well. Impression: Iron deficiency anemia with GI bleeding the patient is maintained on Coumadin no evidence of lower GI blood loss Plan: May resume the Coumadin recheck hemoglobin hematocrit in 2 weeks patient will need an outpatient capsule endoscopy for further evaluation of her bleeding. CC Dr. Gutierrez 12/02/17 1305 <Electronically signed by Tye Foster MD> Date Tye Foster MD CC: Moses Gloria D.O.; Martin Gutierrez MD; Tye Foster Signed CONSULTATION Observed: 12/02/2017 Status: F Source: [place] 8:16 AM [facility] REPOSITORY [facility] Medical Records Department [address] [place] [address] Consultation 12/01/17 0711 MR#: [id number] Acct: [id number] Name: ANGELES LARIOS Rep #: [id number] : 1960 57 From: Moses Gloria DO PCP: Matt FAROOQ,aMrtin Perdue Status: ADM IN Y Location: [place] [address] Reason for Consult Date of Consultation: 12/01/17 Reason for Consultation: Acute blood loss anemia History of Present Illness: The patient is a 57-year-old female, with a history as outlined below, who presented to the emergency department on November 30 with complaints of fatigue. The patient does have a history of coronary artery disease for which she is status post angioplasty and stenting of her RCA in 2008. She also had a mild CVA in June 2012 and was noted to have bilateral carotid stenosis for which she underwent endarterectomy. She also has known obstructive sleep apnea. The patient was seen in the office of Dr. Vanessa of general surgery on November 13 for evaluation of anemia and melena. There were initial plans for the patient to undergo an outpatient upper and lower endoscopy. On presentation to the emergency department, the patient was noted to be afebrile and hemodynamically stable. She was maintaining appropriate oxygen saturations on room air. Laboratory evaluation revealed a hemoglobin level of 5.7 g/dL. Her last hemoglobin in our system from September 2017 was 8.2 g/dL. MCV was noted to be 73. INR was normal at 1.3. Chemistry profile was largely unremarkable. Urinalysis was negative. MRSA screen was negative. The patient received 3 units of packed red blood cells and was subsequently transferred to the medical intensive care unit for ongoing management. Of note, gastroenterology was contacted regarding the patient and they plan to perform endoscopy sometime today. 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) CAD (coronary artery disease) (Chronic) Hypertension (Chronic) Hyperlipidemia (Chronic) Dysarthria (Chronic) Expressive language disorder (Chronic) Allergies bupropion [From Wellbutrin] Allergy (Verified 11/30/17 18:17) Rash Nsewekj-Ouk-Tsj Reductase Inhibitor Allergy (Verified 11/30/17 18:17) Other UNABLE TO WALK codeine Adverse Reaction (Verified 11/30/17 18:17) Other PT REPORTS GOING TO SLEEP AND HAS HARD TIME WAKING UP Home Medications: Ambulatory Orders Medication Instructions Recorded duloxetine 60 mg capsule,delayed 60 mg PO BID cap 07/27/17 Surgical History: appendectomy Smoking Status: Current every day smoker - *Family History Maternal History Items: No pertinent history Review of Systems Constitutional: Reports: Malaise, Fatigue. Denies: Chills, Fever, Night Sweats Eyes: Denies: Blurred vision, Double vision HEENT: Denies: Head Aches, Sinus Congestion, Sinus Drainage Cardiovascular: Denies: Chest Pain, Palpitations Respiratory: Reports: Shortness of Breath. Denies: Cough, Shortness of breath at rest, Sputum production Gastrointestinal: Denies: Abdominal Pain, Nausea, Vomiting Genitourinary: Denies: Dysuria Musculoskeletal: Denies: Joint Pain, Joint Tenderness Skin: Denies: Rash, Wounds Neurological: Denies: Numbness, Tingling, Focal weakness Psychiatric: Denies: Anxiety, Depression, Homicidal Ideations, Suicidal Ideations Hematologic/ Lymphatic: Reports: Anemia, Hx of blood transfusion Patient Problems: Active and Suspected Problems (Last Reviewed 11/24/17 @ 13:16 by Phi Morris) Gastrointestinal bleed (Acute) Objective: The patient's most recent lab work, culture data and imaging studies have all been personally reviewed. Surface echocardiogram dated June 2017 revealed mild concentric LVH with an ejection fraction of 60%. There was mild focal aortic valve calcification. - Physical Exam General: Alert, Oriented x3, Cooperative, No apparent distress HEENT: Atraumatic, PERRLA, Normocephalic Oral: No Gingival or Mucosal Lesions/ Ulcerations Neck: Supple, No Nodes, Trachea Midline Lungs: No rhonchi, No wheeze, No rales Cardiovascular: Regular rate, Regular Rhythm, Normal S1, Normal S2, Murmur Abdomen: Bowel Sounds Present, Soft, Non Tender Extremities: No clubbing, No cyanosis, No edema Skin: No breakdown Musculoskeletal: No Tenderness to Palpation of Joints or Extremities Lymphatic: No Cervical, Supraclavicular, or Inguinal Adenopathy Neurological: Neuro grossly intact Psych/Mental Status: Alert and oriented to time, place, person, mood and affect Vital Signs Temp Pulse Resp BP Pulse Ox 97.8 F 72 18 134/63 H 93 12/01/17 06:58 12/01/17 07:03 12/01/17 07:03 12/01/17 07:03 12/01/17 07:03 Oxygen Delivery Method Room Air Weight: 277 lb 8.992 oz Body Mass Index (BMI) 43.2 Intake and Output for Last 24 Hours Intake Total 475 / 475 560 / 560 Output Total 400 / 400 Balance 475 / 475 160 / 160 Laboratory Tests Past 24 Hrs WBC 5.5 Pending RBC 3.20 L Pending Hgb 7.0 L Pending Hct 24.4 L Pending MCV 76.3 L Pending MCH 21.9 L Pending Labs (Last 48 Hours) WBC 8.5 RBC 2.97 L Hgb 5.7 L* Hct 21.7 L MCV 73.1 L MCH 19.2 L MCHC 26.3 L WBC Assessment/Plan Active and Suspected Problems (Last Reviewed 11/24/17 @ 13:16 by Phi Morris) Gastrointestinal bleed (Acute) RECOMMENDATIONS: 1. Continue PPI drip. 2. Monitor blood counts. Transfuse for a hemoglobin greater than 8 g/dL 3. Plan endoscopy this afternoon by gastroenterology 4. Okay to continue supplemental IV fluids for now. 5. Encourage incentive spirometer use while in bed and mobilize patient as tolerated. IMPRESSIONS: 1. Acute blood loss anemia in the setting of chronic anticoagulation /chronic iron deficiency anemia Patient has been transfused 3 units of packed red blood cells to date. Blood counts incremented appropriately. Plan to check CBC daily. Transfuse to maintain hemoglobin at or above 8 g/dL. Plans for endoscopy later today by gastroenterology. Continue PPI drip for now with plans to transition to twice daily dosing tomorrow. Hold Coumadin accordingly. Okay to continue supplemental IV fluids for now. 2. Coronary artery disease status post PTCA in 2008 Continue home cardiac medication regimen. 3. Hypertension/obesity/GERD/hyperlipidemia/hypothyroidism Complicates care, management, recovery and prognosis. Okay to continue home medications from my perspective. This note was generated with ahoyDoc dictation software. It may contain incorrect words, spelling, and punctuation that were not noted in checking the note before signing. Code Visit Inpatient E AND M: 89644 Init Hosp L3 12/02/17 0816 <Electronically signed by Moses Gloria DO> Date Moses Gloria DO Cosigner Signature (if applicable): Date CC: Moses Gloria D.O.; Martin Gutierrez MD; Tye Foster Signed BASIC METABOLIC Collected: 12/02/2017 Status: F Source: [place] PROFILE (BMP) 5:25 AM [facility] REPOSITORY TYPE CODE TESTS RESULT OUT OF RANGE REFERENCE UNITS LAB L501.0100 74-106 mg/dL High GLU 134 Result Comment: Fasting Glucose result greater than or equal to 126 mg/dL suggests DIABETES MELLITUS per A.D.A. criteria. Please note revised GLUCOSE reference range effective 2017. LAB L501.1000 7-18 mg/dL Normal BUN 10 LAB L501.1100 0.55-1.02 mg/dL Normal CREAT,SERUM 0.92 Result Comment: The validity of the calculated GFR AND GFRAA in patients over 70 years has not been determined. Clinical correlation is essential. LAB L501.1110 >60 mL/min Normal EST GFR 67 Result Comment: Non- GFR Calc LAB L501.1115 >60 mL/min Normal EST GFR - AA 81 Result Comment: GFR Calc LAB L501.1255 ml/min Normal Estimated CRCL 64.03 LAB L501.1300 10-20 RATIO Normal BUN/CRE 10.9 LAB L501.2200 8.5-10 mg/dL Normal .1 CA 8.5 LAB L501.5300 136-14 mmol/L Normal 5 NA 143 LAB L501.5600 3.5-5. mmol/L Normal 1 K 4.1 LAB L501.5900 98-107 mmol/L High CL 109 LAB L501.6100 21.0-3 mmol/L Normal 2.0 CO2 25.0 LAB L501.6200 5-15 Normal GAP 9 Performed By: #### L500.2500 #### [facility] [address] [place], [place], [id number] CBC W/DIFF, AUTOMATED Collected: 12/02/2017 Status: F Source: [place] 5:25 AM [facility] REPOSITORY TYPE CODE TESTS RESULT OUT OF RANGE REFERENCE UNITS LAB L100.1000 4.4-11.0 K/mm3 Normal WBC 6.0 LAB L100.1200 4.2-5.4 M/mm3 Low RBC 4.03 LAB L100.1300 12.0-15.0 g/dl Low HGB 8.9 LAB L100.1400 37-47 % Low HCT 30.9 LAB L100.1500 81-99 fL Low MCV 76.7 LAB L100.1600 27.0-32.0 pg Low MCH 22.1 LAB L100.1700 32-36 g/gl Low MCHC 28.8 LAB L100.1810 11.6-14.6 % High RDW CV 19.2 LAB L100.1820 35.1-43.9 fl High RDW SD 53.8 LAB L100.1900 150-450 K/mm3 Normal PLT 256 LAB L100.2000 6.2-12.0 fl Normal MPV 9.9 LAB L100.2100 47-70 % Normal NEUT% 57.2 LAB L100.2200 19-41 % Normal LY% 30.8 LAB L100.2300 0-10 % Normal MONO% 10.0 LAB L100.2400 0-5 % Normal EO% 1.0 LAB L100.2500 0-1 % Normal BASO% 0.7 LAB L100.2550 0.0-0.9 % Normal IM GRAN % 0.300 Result Comment: IG% - Immature Granulocytes (promyelocytes, myelocytes and metamyelocytes) > 1% indicates that a LEFT SHIFT is Present. LAB L100.2620 2.0-7.7 X10 3/uL Normal Absolute Neut 3.4 LAB L100.2720 0.83-4.51 X10 3/ul Normal Absolute Lymph 1.85 Performed By: #### L100.0100 #### [facility] [address] [place], [address] HH, HEMOGLOBIN AND Collected: 12/01/2017 Status: F Source: [place] HEMATOCRIT 10:08 PM [facility] REPOSITORY TYPE CODE TESTS RESULT OUT OF RANGE REFERENCE UNITS LAB L100.1300 12.0-15.0 g/dl Low HGB 8.3 LAB L100.1400 37-47 % Low HCT 28.8 Performed By: #### L100.0600 #### [facility] [address] [place], [address] OPERATIVE REPORT Observed: 12/01/2017 Status: F Source: [place] 2:14 PM [facility] REPOSITORY [facility] Medical Records Department [address] [place] [address] Operative Report 12/01/17 1409 MR#: [id number] Acct: [id number] Name: ANGELES LARIOS Rep #: [id number] : 1960 57 From: Tye Foster MD PCP: Martin Gutierrez MD, Chi Status: ADM IN [facility] Report Date of Procedure: 12/01/17 Preop diagnosis: Patient with melena and anemia on Coumadin Postop diagnosis: EGD with biopsy of gastric mucosa Anesthesia: Via the MAC Instrument: Olympus upper endoscope Informed consent was taken prior to procedure. The patient was brought to the endoscopy suite[ she] was placed left shoulder down. Anesthesia provided the MAC. The scope was passed under direct visualization down into the esophagus. The proximal midesophagus appeared normal the Z line was 38 cm from the incisors no evidence of bleeding. The stomach was easily insufflated there was no blood in the stomach the bulbar duodenum showed a small erosion the second portion of the duodenum was normal. The scope was withdrawn back into the stomach retroflexion was performed a view of the cardia was well seen there was a small hiatal hernia no evidence of gastric varices. A biopsy of the gastric antrum was taken for testing for H. pylori the stomach was decompressed careful examination of the lesser curvature showed no signs of bleeding. The stomach was decompressed, the endoscope was withdrawn and the patient tolerated procedure well. Impression: Melanotic stool on Coumadin no evidence of upper GI bleeding continue to monitor the patient Plan: Patient may have a clear liquid diet she will undergo colonoscopy tomorrow Cc copy Dr. Gutierrez 12/01/17 1414 <Electronically signed by Tye Foster MD> Date Tye Foster MD CC: Moses Gloria D.O.; Martin Gutierrez MD; Tye Foster Signed CONSULTATION Observed: 12/01/2017 Status: F Source: [place] 12:03 PM [facility] REPOSITORY [facility] Medical Records Department [address] [place] [address] Consultation 12/01/17 1155 MR#: [id number] Acct: [id number] Name: ANGELES LARIOS Rep #: [id number] : 1960 57 From: Tye Foster MD PCP: Matt FAROOQ,Martin Perdue Status: ADM IN Y Location: ICU ICU08-1 - Consult D Reason for consultation: Patient with melena and anemia on Coumadin The patient is a [57] year old [female] who I have been asked to consult. The patient reports she has a history of anemia noted of black stool yesterday and came to the emergency department. Was evaluated and had a hemoglobin of approximately 5.5 noted there was melena, no pain no hematemesis. She reports a history of a DVT currently maintained on Coumadin. Is a history of coronary artery disease she had a stent placed more than 9 years ago. Denies any recent shortness of breath or chest pains. Patient denies any cough asthma wheezing she denies any diabetes review of systems noted today she offers no other complaints. Patient reports she does smoke. Allergies: Ibuprofen ends and codeine Medicati Medications Added to Medication List This Visit Pantoprazole Sodium [Protonix] 40 mg Med 12/01/17 22:00 Active 0.9% Normal Saline 100 ml IV Q12 ons:. PMH: Coronary artery disease hypertension elevated lipids DVT PSH: Coronary stents appendectomy Social: She does smoke she is ROS: As noted in the HPI Vitals: Vital Signs Height 5 ft 7 in Weight: 125.9 kg HEENT: Anicteric sclera conjunctiva pale NECK: Supple HEART: S1-S2 no murmur heard LUNGS: Bilaterally clear ABDOMEN: Obese soft nontender no organomegaly EXTER: No cyanosis 1-2+ edema Neuro: Alert and oriented no deficits Impression: There is a 57-year-old female presenting with a black stool and anemia: Maintained on Coumadin for history of DVT she appears to have a chronic anemia with a recent blood count of 8 now was down to 5.5 likely some degree of GI bleeding related to anticoagulation use. Rule out peptic ulcer disease or vascular malformations. Patient has been transfused 3 units of packed red blood cells genuine IV PPI with a continuous infusion and the patient will undergo upper endoscopy for further evaluation of source of bleeding. Ate of Consult: 12/01/[address] Gutierrez 12/01/17 1203 <Electronically signed by Tye Foster MD> Date Tye Foster MD Cosigner Signature (if applicable): Date CC: Moses Gloria D.O.; Martin Gutierrez MD; Tye Foster Signed CBC-COMPLETE BLOOD CNT Collected: 12/01/2017 Status: F Source: [place] NO DIFF 6:50 AM [facility] REPOSITORY Order Comment: Order Date: 12/01/17 TYPE CODE TESTS RESULT OUT OF RANGE REFERENCE UNITS LAB L100.1000 4.4-11.0 K/mm3 Normal WBC 5.1 LAB L100.1200 4.2-5.4 M/mm3 Low RBC 3.64 LAB L100.1300 12.0-15.0 g/dl Low HGB 8.2 LAB L100.1400 37-47 % Low HCT 27.9 LAB L100.1500 81-99 fL Low MCV 76.6 LAB L100.1600 27.0-32.0 pg Low MCH 22.5 LAB L100.1700 32-36 g/gl Low MCHC 29.4 LAB L100.1810 11.6-14.6 % High RDW CV 18.6 LAB L100.1820 35.1-43.9 fl High RDW SD 52.6 LAB L100.1900 150-450 K/mm3 Normal PLT 241 LAB L100.2000 6.2-12.0 fl Normal MPV 10.1 Performed By: #### L100.0500 #### [facility] [address] [place], [address] CBC-COMPLETE BLOOD CNT Collected: 12/01/2017 Status: F Source: [place] NO DIFF 3:33 AM [facility] REPOSITORY Order Comment: Comments: to be done 1 hr post transfusion of the third unit TYPE CODE TESTS RESULT OUT OF RANGE REFERENCE UNITS LAB L100.1000 4.4-11.0 K/mm3 Normal WBC 5.5 LAB L100.1200 4.2-5.4 M/mm3 Low RBC 3.20 LAB L100.1300 12.0-15.0 g/dl Low HGB 7.0 LAB L100.1400 37-47 % Low HCT 24.4 LAB L100.1500 81-99 fL Low MCV 76.3 LAB L100.1600 27.0-32.0 pg Low MCH 21.9 LAB L100.1700 32-36 g/gl Low MCHC 28.7 LAB L100.1810 11.6-14.6 % High RDW CV 18.8 LAB L100.1820 35.1-43.9 fl High RDW SD 50.4 LAB L100.1900 150-450 K/mm3 Normal PLT 261 LAB L100.2000 6.2-12.0 fl Normal MPV 10.6 Performed By: #### L100.0500, L100.4500 #### [facility] [address] [place], [place], [id number] DIFFERENTIAL COMMENT Collected: 12/01/2017 Status: F Source: [place] 3:33 AM [facility] REPOSITORY Order Comment: Comments: to be done 1 hr post transfusion of the third unit TYPE CODE TESTS RESULT OUT OF RANGE REFERENCE UNITS LAB L100.4500 Normal SMEAR COMMENT SCANNED Performed By: #### L100.0500, L100.4500 #### [facility] [address] [place], [place], [address] M R STAPH AUREUS Collected: 11/30/2017 Status: F Source: [place] DNA BY PCR 10:19 PM [facility] REPOSITORY Order Comment: Order Date: 11/30/17 TYPE CODE TESTS RESULT OUT OF RANGE REFERENCE UNITS LAB L8200.1100 Negative Normal MRSA Negative RESULT Performed By: #### L8200.1000 #### [facility] [address] [place], [place], [id number] HISTORY AND PHYSICAL Observed: 11/30/2017 Status: F Source: [place] EXAM 9:26 PM [facility] REPOSITORY [facility] Medical Records Department [address] [place] [address] History and Physical 11/30/172114 MR#: [id number] Acct: [id number] Name: ANGELES LARIOS Rep #: [id number] : 1960 57 From: Joaquín Tillman MD PCP: Matt FAROOQ,Martin Perdue Status: REG ER Y Location: ED Problem List (1) Gastrointestinal bleed Status: Acute Qualifiers: GI bleed type/associated pathology: unspecified gastrointestinal hemorrhage type Qualified Code(s): K92.2 - Gastrointestinal hemorrhage, unspecified (2) Nicotine abuse Status: Chronic (3) Atherosclerotic heart disease of tejon coronary artery without angina pectoris Status: Chronic Qualifiers: Comment: PTCA of RA AND diagonal with intracoronary stent November 2008 (4) Presence of stent in coronary artery Status: Chronic (5) CAD (coronary artery disease) Status: Chronic Qualifiers: (6) Hypertension Status: Chronic Qualifiers: (7) Hyperlipidemia Status: Chronic Qualifiers: History of Present Illness Date of Admission: 11/30/17 Chief Complaint: fatigue , gastrointestinal bleed The patient is a 57 year old female patient presents to the ER with severe fatigue. The patient has a history of an arterial blood clot in her right leg diagnosed in June. She has been on Coumadin until of last week when her physician started Lovenox shots. She has a history of three coronary artery stents in 2008 and formerly took aspirin and Plavix. Over the past four months she has been diagnosed with anemia Hg reported as 8 but has had no hemoglobin checks since four months ago, according to the patient. She now has a hemoglobin of 5.7 and is clinically fatigued. She denies chest pain or shortness of breath. She has been typed and crossed for two units of PRBC by the ER physician. Dr Foster has requested a Protonix drip and a total of 3 units of PRBC prior to his plan for colonoscopy/endocopy at 1:00 tomorrow. She will be placed in ICU due to severe microcytic hypochromatic anemia. Past Medical History Past Medical History (Chronic Problems): Chronic Problems (Last Reviewed 11/24/17 @ 13:16 by Phi Morris) Nicotine abuse (Chronic) Atherosclerotic heart disease of tejon coronary artery without angina pectoris (Chronic) PTCA of RA AND diagonal with intracoronary stent November 2008 Presence of stent in coronary artery (Chronic) Other fci (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 (Chronic) CAD (coronary artery disease) (Chronic) Hypertension (Chronic) Hyperlipidemia (Chronic) Dysarthria (Chronic) Expressive language disorder (Chronic) Allergies bupropion [From Wellbutrin] Allergy (Verified 11/30/17 18:17) Rash Molblle-Ret-Kyd Reductase Inhibitor Allergy (Verified 11/30/17 18:17) Other UNABLE TO WALK codeine Adverse Reaction (Verified 11/30/17 18:17) Other PT REPORTS GOING TO SLEEP AND HAS HARD TIME WAKING UP Home Medications: Ambulatory Orders Medication Instructions Recorded Metoprolol(XL)Succ [Toprol Xl 50 mg PO BID 09/05/16 (Beta Linn)] duloxetine 60 mg capsule,delayed 60 mg PO BID cap 07/27/17 release Surgical History: appendectomy Smoking Status: Current every day smoker - *Family History Maternal History Items: No pertinent history Review of Systems Constitutional: Reports: Weakness, Fatigue. Denies: Chills, Fever, Weight Change HEENT: Denies: Head Aches, Sinus Congestion, Sinus Drainage Cardiovascular: Denies: Chest Pain, Palpitations Respiratory: Denies: Cough, Shortness of breath at rest, Sputum production Gastrointestinal: Denies: Abdominal Pain, Nausea, Vomiting Genitourinary: Denies: Dysuria Musculoskeletal: Denies: Joint Pain, Joint Tenderness Skin: Denies: Rash, Wounds Neurological: Denies: Numbness, Tingling, Focal weakness Psychiatric: Denies: Anxiety, Depression, Homicidal Ideations, Suicidal Ideations Hematologic/ Lymphatic: Reports: Anemia. Denies: Easy Bruising, Easy Bleeding VTE Information - Inpt Only VTE Present on Admission: No VTE Mechan Device Prophylaxis: SCD's VTE Pharm Prophylaxis ordered?: No Reason prophylaxis not ordered:: Medical Contraindication Patient Problems: Active and Suspected Problems (Last Reviewed 11/24/17 @ 13:16 by Phi Morris) Gastrointestinal bleed (Acute) - Physical Exam General: Alert, Oriented x3, Cooperative, Lethargic HEENT: Atraumatic, Normocephalic Neck: Supple Lungs: Clear to auscultation, Normal air movement, No rhonchi, No wheeze, No rales Cardiovascular: Regular rate, Regular Rhythm, Normal S1, Normal S2, No murmurs Abdomen: Bowel Sounds Present, Soft, Non Tender, Obese Extremities: Capillary Refill Less than 3 Seconds, Edema - 1+ lower ext edema Skin: No rashes, No breakdown Musculoskeletal: No Tenderness to Palpation of Joints or Extremities Neurological: Neuro grossly intact Psych/Mental Status: Normal Affect, Appropriate Vital Signs Temp Pulse Resp BP Pulse Ox 98.8 F 73 15 136/56 H 96 11/30/17 21:08 11/30/17 21:08 11/30/17 21:08 11/30/17 21:08 11/30/17 21:08 Oxygen Delivery Method Room Air Weight: 276 lb 0.3 oz Body Mass Index (BMI) 43.2 Intake and Output for Last 24 Hours Intake Total 0 / 0 Balance 0 / 0 Laboratory Tests Past 24 Hrs WBC 8.5 RBC 2.97 L Hgb 5.7 L* Hct 21.7 L MCV 73.1 L Assessment/Plan Active and Suspected Problems (Last Reviewed 11/24/17 @ 13:16 by Phi Morris) Gastrointestinal bleed (Acute) Chronic Problems (Last Reviewed 11/24/17 @ 13:16 by Phi Morris) Nicotine abuse (Chronic) Atherosclerotic heart disease of tejon coronary artery without angina pectoris (Chronic) PTCA of RA AND diagonal with intracoronary stent November 2008 Presence of stent in coronary artery (Chronic) Other fci (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 (Chronic) CAD (coronary artery disease) (Chronic) Hypertension (Chronic) Hyperlipidemia (Chronic) Dysarthria (Chronic) Expressive language disorder (Chronic) Plan - admit to ICU - consult Dr Gloria for ICU management - consult Dr Foster for GI management - protonix IV drip - hold all anticoagulation - NPO - patient will be receiving IV blood transfusions throughout the evening - cbc 1 hr post transfusion of 3rd unit - scds for dvt prophylaxis Code Visit Inpatient E AND M: 12271 Init Hosp L3 11/30/172125 <Electronically signed by Joaquín Tillman MD> Date Joaquín Tillman MD Cosigner Signature: Date (if applicable) CC: Joaquín Tillman MD; Martin Gutierrez MD Signed CBC W/DIFF, AUTOMATED Collected: 11/30/2017 Status: C Source: [facility] 6:50 PM [facility] REPOSITORY TYPE CODE TESTS RESULT OUT OF RANGE REFERENCE UNITS LAB L100.1000 4.4-11.0 K/mm3 Normal WBC 8.5 LAB L100.1200 4.2-5.4 M/mm3 Low RBC 2.97 LAB L100.1300 12.0-15.0 g/dl Low alert HGB 5.7 Result Comment: RESULTS CALLED TO LYNDA 11/30/171914 Italo Lindsey. REPORT READ BACK BY SAME. LAB L100.1400 37-47 % Low HCT 21.7 LAB L100.1500 81-99 fL Low MCV 73.1 LAB L100.1600 27.0-32.0 pg Low MCH 19.2 LAB L100.1700 32-36 g/gl Low MCHC 26.3 LAB L100.1810 11.6-14.6 % High RDW CV 19.3 LAB L100.1820 35.1-43.9 fl High RDW SD 52.1 LAB L100.1900 150-450 K/mm3 Normal PLT 317 LAB L100.2000 6.2-12.0 fl Normal MPV 9.6 LAB L100.2100 47-70 % Low NEUT% 45.6 LAB L100.2200 19-41 % Normal LY% 39.7 LAB L100.2300 0-10 % High MONO% 11.6 LAB L100.2400 0-5 % Normal EO% 1.9 LAB L100.2500 0-1 % Normal BASO% 0.8 LAB L100.2550 0.0-0.9 % Normal IM GRAN % 0.400 Result Comment: IG% - Immature Granulocytes (promyelocytes, myelocytes and metamyelocytes) > 1% indicates that a LEFT SHIFT is Present. LAB L100.2620 2.0-7.7 X10 3/uL Absolute Neut Normal 3.9 LAB L100.2720 0.83-4.51 X10 3/ul Absolute Lymph Normal 3.38 LAB L100.7300 ANISO Normal 2+ LAB L100.7500 POLYCHROMASIA Normal RARE LAB L100.7600 HYPOCHROMASIA Normal 3+ LAB L100.7700 MICROCYTES Normal 3+ LAB L100.9900 PATH REV Normal Reviewed Result Comment: Microcytic anemia with anisopoikilocytosis Clinical correlation necessary. Ketan Hurst D.O. 12/01/17 Pathologist comment added AMENDED REPORT 12/01/17 1047 PATH REV previously reported as: Yulia craig Performed By: #### L100.0100 #### [facility] [address] [place], [address] COMPREHENSIVE METABOLIC Collected: 11/30/2017 Status: F Source: [facility] 6:50 PM [facility] REPOSITORY TYPE CODE TESTS RESULT OUT OF RANGE REFERENCE UNITS LAB L501.0100 74-106 mg/dL Normal GLU 100 Result Comment: Fasting Glucose result from 100 to 125 mg/dL suggests IMPAIRED HOMEOSTASIS per A.D.A. criteria. Please note revised GLUCOSE reference range effective 2017. LAB L501.1000 7-18 mg/dL Normal BUN 13 LAB L501.1100 0.55-1.02 mg/dL Normal CREAT,SERUM 0.80 Result Comment: The validity of the calculated GFR AND GFRAA in patients over 70 years has not been determined. Clinical correlation is essential. LAB L501.1110 >60 mL/min Normal EST GFR 78 Result Comment: Non- GFR Calc LAB L501.1115 >60 mL/min Normal EST GFR - AA 94 Result Comment: GFR Calc LAB L501.1255 ml/min Normal Estimated CRCL 73.63 LAB L501.1300 10-20 RATIO Normal BUN/CRE 16.3 LAB L501.1500 6.4-8. g/dL Normal 2 T PROT 6.9 LAB L501.1800 3.2-5. g/dL Normal 0 ALB 3.2 LAB L501.1950 2.2-4. g/dL Normal 2 GLOB 3.7 LAB L501.2000 0.9-2. RATIO Normal 4 A/G 0.9 LAB L501.2200 8.5-10 mg/dL Low .1 CA 8.0 LAB L501.4100 15-37 U/L Normal AST 34 Result Comment: Slight Hemolysis, Result may be falsely increased. LAB L501.4305 45-117 U/L Normal ALK P 105 LAB L501.4405 13-56 U/L Normal ALT 18 Result Comment: Please note revised ALT reference range effective 2017. LAB L501.4600 0.20-1.00 mg/dL Normal T BILI 0.40 LAB L501.5300 136-145 mmol/L Normal NA 142 LAB L501.5600 3.5-5.1 mmol/L Normal K 4.3 Result Comment: Slight Hemolysis, Result may be falsely increased. LAB L501.5900 98-107 mmol/L High CL 111 LAB L501.6100 21.0-32.0 mmol/L Normal CO2 23.0 LAB L501.6200 5-15 Normal 8 GAP Performed By: #### L500.4050 #### [facility] [address] [place], [address] URINALYSIS, COMPLETE Collected: 11/30/2017 Status: F Source: [place] 6:50 PM [facility] REPOSITORY Order Comment: Order Date: 11/30/17 How was Urine Obtained? CLEAN CATCH TYPE CODE TESTS RESULT OUT OF RANGE REFERENCE UNITS LAB L400.3000 Yellow COLOR Normal Yellow LAB L400.3050 Clear Normal CLARITY Sl. Cloudy LAB L400.3200 Normal mg/dl Normal GLUCOSE, UR Normal LAB L400.3300 Negative mg/dL Normal BILIRUBIN URINE Negative LAB L400.3400 Negative mg/dl High 5 KETONE UR LAB L400.3465 1.002-1.030 Normal SP.GR. DIPSTX 1.020 LAB L400.3550 5.0 - 8.0 pH UR Normal 6.0 LAB L400.3600 Negative mg/dl High PROT 15 DIPSTX LAB L400.3700 Normal mg/dl High 1 UROBILI LAB L400.3750 Negative Normal NITRITE UR Negative LAB L400.3780 Negative /ul Normal OCCULT BLOOD-UR Negative LAB L400.3800 Negative /ul High LEUK 25 ESTERASE LAB L400.4050 0-5 /hpf WBC Normal 0-5 SEEN LAB L400.4100 0-5 /hpf 0 Normal RBC-UA SEEN LAB L400.4150 5-10 /hpf SQUAM Normal EPI 0-5 SEEN LAB L400.4300 None Seen /hpf 0 Normal BACTERIA SEEN LAB L400.4350 <or=2+ /hpf 0 Normal MUCUS, URINE SEEN Performed By: #### L400.0001 #### [facility] [address] [place], [address] PROTHROMBIN TIME W/INR Collected: 11/30/2017 Status: F Source: [place] 6:50 PM [facility] REPOSITORY TYPE CODE TESTS RESULT OUT OF RANGE REFERENCE UNITS LAB L300.4150 11.7-14.9 SECONDS High PROTIME 15.8 LAB L300.4200 Normal INR 1.3 Performed By: #### L300.3900, L300.4310 #### [facility] [address] [place], [address] PARTIAL THROMBOPLAST Collected: 11/30/2017 Status: F Source: [place] TIME 6:50 PM [facility] REPOSITORY TYPE CODE TESTS RESULT OUT OF REFERENCE UNITS RANGE LAB L300.4310 24.1-36.2 Seconds High PTT 45.6 Performed By: #### L300.3900, L300.4310 #### [facility] [address], [address] TYPE AND SCREEN Collected: 11/30/2017 Status: F Source: [place] 6:50 PM [facility] REPOSITORY Order Comment: Reason for Type AND Screen/Red Cells: HEMORRHAGE, GI BLEED TYPE CODE TESTS RESULT OUT OF RANGE REFERENCE UNITS LAB B10.0800 O Normal BLOOD TYPE GEL POSITIVE LAB B100.4000 Normal Antibody NEGATIVE Screen Performed By: #### B101.7450 #### [facility] [address] [place], [address] RC Collected: 11/30/2017 Status: F Source: [place] 6:50 PM [facility] REPOSITORY TYPE CODE TESTS RESULT OUT OF REFERENCE UNITS RANGE LAB U100.0000 [id number] TRANSFUSED PRODUCT: T AND S with Crossmatch, Red Cells COUNT: 2 Performed By: #### U100.0000 #### [facility] - refer to report for specific site RC Collected: 11/30/2017 Status: F Source: [facility] 6:50 PM [facility] REPOSITORY TYPE CODE TESTS RESULT OUT OF REFERENCE UNITS RANGE LAB U100.0000 [id number] TRANSFUSED PRODUCT: T AND S with Crossmatch, Red Cells COUNT: 1 Performed By: #### U100.0000 #### [facility] - refer to report for specific site IRON+IRON BINDING Collected: 11/30/2017 Status: F Source: [facility] CAPACITY 10:50 AM [facility] REPOSITORY Order Comment: Comments: collected 11/30/17 prior to transfusion Comments: collected 11/30/17 prior to transfusion TYPE CODE TESTS RESULT OUT OF RANGE REFERENCE UNITS LAB L503.6075 250-450 ug/dL High TIBC 515 LAB L503.6150 50-170 ug/dL Low IRON 17 Result Comment: Slight Hemolysis, Result may be falsely increased. LAB L503.6250 15.0-55.0 % IRON Low SATURATION 3.3 Performed By: #### L503.6030, L503.6550 #### [facility] [address] [place], [address] FERRITIN Collected: 11/30/2017 Status: F Source: [place] 10:50 AM [facility] REPOSITORY Order Comment: Comments: collected 11/30/17 prior to transfusion Comments: collected 11/30/17 prior to transfusion TYPE CODE TESTS RESULT OUT OF REFERENCE UNITS RANGE LAB L503.6550 8-252 ng/mL Low FERRITIN 3 Performed By: #### L503.6030, L503.6550 #### [facility] [address] [place], [address] CARDIOLOGY VISIT Observed: 11/24/2017 Status: F Source: [facility] REPORT 4:47 PM [facility] REPOSITORY [facility] [address] [place] [address] OFFICE VISIT Date of Service: 11/24/17 MR#: [id number] Acct: [id number] Name: ANGELES LARIOS Rep #: [id number] : 1960 Provider: Eliane Rodrigez Age/Sex: 57/F Location: [facility] [place] Status: Signed HPI HPI Details: ANGELES RIC, is a 57 F who presents to the office today for a cardiovascular follow-up. She was in her office approximately 6 weeks ago with concerns over increasing shortness of breath. She was also noted to be anemic. She did undergo a stress test for further evaluation which was negative for ischemia. She does have history of coronary artery disease with previous angioplasty and stenting of her RCA and 2009. She also had a mild cerebrovascular accident in June of 2012, was noted to have bilateral carotid stenosis and underwent a carotid left are endarterectomy. She does have sleep apnea and uses a CPAP machine. In June of 2017, Pt was hospitalized for an acute arterial clot in her right lower leg. She underwent a thrombectomy. She is now on Coumadin. She does have a history of anemia and does have a positive occult test. She did see surgery for a consult. They are in the process of scheduling a upper and lower endoscopy. Pt can not afford the cost of the lovenox injections. She sts that they are in the process of helping her with this. She is still SOB with any activity. She has not had any chest pain. She does not have any orthopnea. She does have palpitations. She also feels that her heart is beating in her ears. She does have positional dizziness and has felt lightheaded to where she might pass out. She has not had any syncopal events. Intake Vital Signs11/24/17 Height 5 ft 7 in 11/24/17 Weight: 273 lb 11/24/17 Body Mass Index (BMI) 42.7 11/24/17 Blood Pressure 128/54 11/24/17 Blood Pressure Location Lt brachial Intake Visit Reasons: 6 wk f/up 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 Accompanied by: None Is patient in pain?: No Allergies bupropion [From Wellbutrin] Allergy (Verified 11/24/17 13:18) Rash Mtuugbd-Vds-Dob Reductase Inhibitor Allergy (Verified 11/24/17 12:54) Other codeine Adverse Reaction (Verified 11/24/17 12:54) Other Medications Metoprolol(XL)Succ [Toprol Xl (Beta Linn)] 50 mg PO BID 09/05/16 [History Confirmed 11/24/17] Nitroglycerin [Nitrostat] 0.4 mg SUBLINGUAL Q5M PRN 09/05/16 [History Confirmed 11/23/17] duloxetine 60 mg capsule,delayed release 60 mg PO BID cap 07/27/17 [History Confirmed 11/23/17] lisinopril 20 mg tablet 20 mg PO QDAY 07/27/17 [History Confirmed 11/23/17] warfarin 6 mg tablet 6 mg PO ONCE 07/27/17 [History Confirmed 11/24/17] isosorbide mononitrate ER 60 mg tablet,extended release 24 hr 60 mg PO DAILY #90 tab 10/14/17 [Rx Confirmed 11/24/17] nitroglycerin 0.4 mg sublingual tablet 0.4 mg SUBLINGUAL Q5- 15M PRN #25 tab 10/14/17 [Rx Confirmed 11/24/17] polysaccharide iron complex 150 mg iron capsule 150 mg PO QDAY cap 11/13/17 [History Confirmed 11/24/17] warfarin 1 mg tablet 2.5 mg PO QDAY tab 11/13/17 [History Confirmed 11/24/17] omeprazole 40 mg capsule,delayed release 40 mg PO QDAY 11/23/17 [History Confirmed 11/23/17] rosuvastatin 10 mg tablet 10 mg PO QHS tab 11/23/17 [History Confirmed 11/23/17] Ejection fraction %: 60 to 64 PFSH Medical History CAD (coronary artery disease) (Chronic) Hypertension (Chronic) Hyperlipidemia (Chronic) CVA (cerebral vascular accident) (Chronic) Irritable bowel syndrome (Chronic) Sleep apnea (Chronic) Fibromyalgia (Inactive) Surgical History History of left-sided carotid endarterectomy (Resolved) Hx of appendectomy (Resolved) Family History Father , at age 38, from [place] Myocardial infarction cardiomopathy Mother Atrial fibrillation Hypertension Hyperlipidemia Diabetes Brother CAD (coronary artery disease) cardiomopathy Myocardial infarction Sister cardiomopathy Social History adopted: No Smoking Status: Current every day smoker tobacco type: cigarettes second hand exposure: Yes quit status: considering quitting alcohol intake: former year quit: 2018 substance use type: does not use caffeine: Yes Type: coffee what type of physical activity do you participate in: none seatbelt use: sometimes do you feel safe at home: Yes ROS Const Const: Positive for fatigue; negative for weakness, fever(s) or headache(s) Eyes Eyes: Negative for blind spots, loss of peripheral vision or transient loss of vision ENT ENT: Positive for dizziness; negative for headache(s), tinnitus or Nosebleed/epistaxis Cardio Chest Pain: No Palpitations: No Edema: None Muscle aches with walking: None Resp Respiratory: Positive for SOB with activity; negative for SOB at rest, SOB orthopnea\SOB lying down or Cough GI GI: Positive for black,tarry stools; negative nausea, vomiting, heartburn or vomiting blood/hematemesis : Negative for hematuria Musc Musc: Negative for muscle aches/ myalgia Neuro Neuro: Positive for dizziness, near syncope, lightheadedness and orthostatic symptoms; negative for weakness, headache(s) or syncope Amaury Hematologic/Lymphatic: Negative for easy bleeding Endo Endo: Positive for fatigue Cardiology Exam Const Appearance: cooperative, no acute distress, well developed and other (pale) Orientation: alert, awake and oriented x3 Head Head: normocephalic and atraumatic Mouth: moist mucous membranes Eyes General: appearance normal, both eyes and all related structures Conjunctivae: conjunctivae normal Pupils: PERRL EOM: EOM intact bilaterally Neck Neck: normal visual inspection, no lymphadenopathy and no JVD Carotids: Negative bruit Neck Mass: Negative Neck mass Chest Chest inspection: normal inspection of the chest and symmetric chest movement Auscultation: Bilateral: Clear to Auscultation Cardio Palpation: normal PMI Rate: regular rate Rhythm: regular rhythm Heart sounds: S1 normal and S2 normal; negative rub, gallop or murmur GI GI: normal to inspection, soft, no hepatosplenomegaly and bowel sounds present; negative tender Neuro General: alert, awake, oriented x3, CN's II-XI intact bilaterally and moves all extremities Extremities Pulses: Normal: Right Posterior Tibial Pulse, Left Posterior Tibial Pulse, Right Radial Pulse, Left Radial Pulse Lower Extremity Edema: None: Bilateral Psych Psychological: normal affect Supplemental Info Echocardiogram in 2017 demonstrated Normal LV size. Mild concentric left ventricular hypertrophy. Left ventricular systolic function is normal. The estimated ejection fraction is 60 %. Mild focal aortic valve calcification. Stress test in 2018 was negative for ischemia. Assessment AND Plan 1. Atherosclerosis of tejon coronary artery of tejon heart without angina pectoris I25.10 PTCA of RA AND diagonal with intracoronary stent November 2008 Plan - KISHA Landrum Patient does not have any symptoms of angina. Stress test was negative for ischemia. She will continue with aggressive medical management. Until patient has completed her workup for anemia she will hold her aspirin. 2. Essential hypertension I10 Plan - KISHA Landrum Blood pressure is well controlled on current medications, we do not recommend any changes at this time. 3. Pure hypercholesterolemia E78.00 Plan - KISHA Landrum Managed by primary care doctor. Will not make any adjustments. 4. Iron deficiency anemia due to chronic blood loss D50.0 Plan - KISHA Landrum Patient is continuing workup for her anemia. We will have her hold her aspirin until this is complete. Plan Detail Other Medications Discontinued: aspirin (Adult Low Dose Aspirin) Discontinued Reason: Order81 mg PO .every other day Completed Additional Comments - KISHA Landrum The above patient was discussed with Dr. Samuel, he agrees with plan of care. Thank you for allowing us to participate in patient's plan of care, if you have any questions please do not hesitate to call. This note was generated using a voice recognition system and there may be incorrect words, spelling or punctuation errors that were not noted when reviewing the office note prior to saving. Follow Up 11/24/17 (Keep as is) Coding Level of Care Code Off vis,est,level 3 Diagnoses Atherosclerosis of tejon coronary artery of tejon heart without angina pectoris I25.10 [place] vs. transplanted heart: tejon heart Essential hypertension I10 Hypertension type: essential hypertension Pure hypercholesterolemia E78.00 Hyperlipidemia type: pure hypercholesterolemia Iron deficiency anemia due to chronic blood loss D50.0 Anemia type: iron deficiency Iron deficiency anemia type: chronic blood loss Coding Level of Care Code Off vis,est,level 3 Diagnoses Atherosclerosis of tejon coronary artery of [place] heart without angina pectoris I25.10 [place] vs. transplanted heart: tejon heart Essential hypertension I10 Hypertension type: essential hypertension Pure hypercholesterolemia E78.00 Hyperlipidemia type: pure hypercholesterolemia Iron deficiency anemia due to chronic blood loss D50.0 Anemia type: iron deficiency Iron deficiency anemia type: chronic blood loss 11/24/17 1410 <Electronically signed by Eliane BEARD> Date Eliane BEARD 11/24/17 3417<Electronically signed by Efrain Samuel MD> Cosigner Signature: Date (if applicable) Efrain Samuel MD CC: Martin Gutierrez MD SURGERY VISIT REPORT Observed: 11/13/2017 Status: F Source: [place] 10:[address] [facility] [address] [place] [address] OFFICE VISIT Date of Service: 11/13/17 MR#: [id number] Acct: [id number] Name: ANGELES LARIOS Rep #: [id number] : 1960 Provider: Sis Vanessa MD Age/Sex: 57/F Location: [facility] Status: Signed Intake Vital Signs11/13/17 Height 5 ft 7 in 11/13/17 Weight: 274 lb 11/13/17 Body Mass Index (BMI) 42.9 Intake Visit Reasons: Anemia AND Positive Cologuard 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 Is patient in pain?: No Allergies Ziszfnk-Ydp-Tle Reductase Inhibitor Allergy (Verified 11/13/17 10:07) Other codeine Adverse Reaction (Verified 11/13/17 10:07) Other Medications Metoprolol(XL)Succ [Toprol Xl (Beta Linn)] 50 mg PO BID 09/05/16 [History Confirmed 11/13/17] Nitroglycerin [Nitrostat] 0.4 mg SUBLINGUAL Q5M PRN 09/05/16 [History Confirmed 11/13/17] aspirin 81 mg tablet,delayed release 81 mg PO .every other day tab 07/27/17 [History Confirmed 11/13/17] duloxetine 60 mg capsule,delayed release 60 mg PO BID cap 07/27/17 [History Confirmed 11/13/17] lisinopril 20 mg tablet 20 mg PO QDAY 07/27/17 [History Confirmed 11/13/17] warfarin 6 mg tablet 6 mg PO ONCE 07/27/17 [History Confirmed 11/13/17] isosorbide mononitrate ER 60 mg tablet,extended release 24 hr 60 mg PO DAILY #90 tab 10/14/17 [Rx Confirmed 11/13/17] nitroglycerin 0.4 mg sublingual tablet 0.4 mg SUBLINGUAL Q5- 15M PRN #25 tab 10/14/17 [Rx Confirmed 11/13/17] polysaccharide iron complex 150 mg iron capsule 150 mg PO QDAY cap 11/13/17 [History Confirmed 11/13/17] warfarin 1 mg tablet 2.5 mg PO QDAY tab 11/13/17 [History Confirmed 11/13/17] PFSH Medical History CAD (coronary artery disease) (Chronic) Hypertension (Chronic) Hyperlipidemia (Chronic) CVA (cerebral vascular accident) (Chronic) Irritable bowel syndrome (Chronic) Sleep apnea (Chronic) Fibromyalgia (Inactive) Surgical History History of left-sided carotid endarterectomy (Resolved) Hx of appendectomy (Resolved) Family History Father , at age 38, from [place] Myocardial infarction cardiomopathy Mother Atrial fibrillation Hypertension Hyperlipidemia Diabetes Brother CAD (coronary artery disease) cardiomopathy Myocardial infarction Sister cardiomopathy Social History adopted: No Smoking Status: Current every day smoker tobacco type: cigarettes second hand exposure: Yes quit status: considering quitting alcohol intake: current alcohol intake frequency: holidays/special occasions only Alcohol type: hard liquor substance use type: does not use caffeine: Yes Type: coffee what type of physical activity do you participate in: none seatbelt use: sometimes do you feel safe at home: Yes HPI HPI HPI: ANGELES LARIOS, is a 57 F who presents to the office today for anemia and tarry stools, positive fecal occult. Patient's current hemoglobin as of early September is 8.2, on July 10 it was 8.5 and on June 25 it was 10.7. Patient did undergo a procedure right leg embolectomy on June 25, 2017. At that time patient was only on Plavix since then she has been switched to warfarin and continues on aspirin. Patient states that she had tarry stools even before she started her iron pill which is about 2 months ago. She states that she normally has a cycle of constipation and diarrhea and when she has a diarrhea she needs to take the Imodium and that she has a constipation with harder stool again. Time between Imodium and hard stools about 3 days and then she will have continuous diarrhea until she takes Imodium. She denies any abdominal pain/family history of colon cancer. Her last scopes that was 3-[address] Smith she thinks she had a polyp at that time. ROS General General: Yes fatigue; no weight change Gastro Gastrointestinal: No abdominal pain, No nausea or vomiting, No diarrhea, Yes constipation, Yes blood in stool, Yes acid reflux (about Q every 2 months does have a prescription for omeprazole but only takes occasionally), Yes black,tarry stools, No gallbladder problem Exam Const General: cooperative, comfortable, no acute distress Nutritional Appearance: obese Resp Effort AND Inspection: normal respiratory effort GI Inspection: non-distended, obesity Palpation: soft, nontender, no guarding Assessment AND Plan Problems 1. Anemia D64.9 2. Fecal occult blood test positive R19.5 3. DVT (deep venous thrombosis) I82.409 Plan Discussed with patient had diagnostic colonoscopy due to positive fecal occult, anemia and tarry stools. Patient will likely need to be bridged from her Coumadin to Lovenox due to her recent blood clot in her right leg will discuss with Dr. Gutierrez's office-will likely need Lovenox twice daily we will have her hold the morning of procedure, AND possibly the night before depending on timing. We will have the patient continue her aspirin but will have her hold her iron for 2 days prior to the procedure. I have discussed the above with the patient. I have offered the patient EGD and diagnostic colonoscopy for evaluation for anemia, fecal occult blood, tarry stools. I have explained the risks/benefits of the procedure and described the procedure. I have discussed the risks with the patient, including but not limited to: infection, bleeding, perforation of the GI tract requiring emergency surgery, inability to complete the procedure, injury to any internal organs, complications of anesthesia, etc. - the patient understands and agrees to proceed. I have answered all the patient's questions to the patient's satisfaction and the patient has no further questions. The patient has been given instructions for the colon cleansing preparation.-split dose. Sis Vanessa M.D. Pager: [phone] [facility] [address], [address] [place] [address] Office: [phone] Plan Detail Follow Up 1 (will schedule EGD and colonoscopy) Coding Level of Care Code Off vis,new,level 3 Diagnoses Anemia D64.9 Fecal occult blood test positive R19.5 DVT (deep venous thrombosis) I82.409 11/13/17 1052 <Electronically signed by Sis Vanessa MD> Date Sis Vanessa MD Cosigner Signature: Date (if applicable) CC: Martin Gutierrez MD STRESS REPORT Observed: 11/02/2017 Status: F Source: [place] 6:20 PM [facility] REPOSITORY [facility] Cardiovascular Services [address] [place] [id number] MR#: [id number] Acct: [id number] Name: ANGELES LARIOS Rep #: [id number] : 1960 57 From: Efrain Samuel MD Primary Care: Matt FAROOQ,Martin Perdue Status: REG CLI Ordering Dr: Sex: F C Stress Test Report Pharmacologic myocardial perfusion stress test. 57-year-old lady with a history of chest pain. Stress protocol: Resting EKG demonstrates normal sinus rhythm with a rate of 73 bpm normal intervals and noted resting pressures 142/80 mmHg. 0.4 mg of regadenoson was infused per usual protocol followed by rapid intravenous saline flush injection continuous EKG monitoring was performed. The maximum heart rate attained was 92 bpm is 57% maximum predicted heart rate the maximum workload attained was 1 metabolic equivalent. At rest there were no ST or T-wave changes noted suggest abnormal flow reserve at peak infusion no ST or T-wave changes were noted suggest abnormal flow reserve. Resting blood pressure is 142/80 final blood pressure was 140/72. Myocardial perfusion protocol. 14.4 mCi of technetium 99m sestamibi was injected at rest. 0.4 mg regadenoson was infused per usual protocol. Continuous EKG monitoring was performed. At peak infusion 44.3 mCi of technetium 99 sestamibi was injected stress images were obtained stress and rest images were reconstructed and compared in the short axis vertical long horizontal long axis. Gated images were also obtained next Perfusion SPECT analysis: Review of the stress images demonstrate normal uptake of tracer noted in all areas of the myocardium. The rest images similarly demonstrate normal uptake of tracer noted in all areas of myocardium. No areas of reversibility are noted suggest ischemia no previous infarct is noted. Gated SPECT analysis: The gated ejection fraction is 72%. Conclusion Normal pharmacologic myocardial perfusion stress test. Preserved ejection fraction. 11/02/171819 <Electronically signed by Efrain Samuel MD> Date Efrain Samuel MD CC: Eliane Rodrigez; Martin Gutierrez MD Date Dictated: 11/02/171817 Date Transcribed: 11/02/171817 Manager Servicing: CO Signed Observed: 10/29/2017 Status: F Source: [place] RESPIRATORY PANEL 3:00 PM [facility] MOLECULAR REPOSITORY RP PANEL Normal Reference Range = Not Detected RESULTS CALLED TO NURSELINE 10/30/17 0728 Khloe Diggs. ADENOVIRUS Not Detected HUMAN METAPHNEUMO Not Detected INFLUENZA A Not Detected INFLUENZA A (SUBTYPE H1) Not Detected INFLUENZA A (SUBTYPE H3) Not Detected INFLUENZA B Not Detected PARAINFLUENZA 1 Not Detected PARAINFLUENZA 2 Not Detected PARAINFLUENZA 3 Not Detected PARAINFLUENZA 4 Not Detected RHINOVIRUS Positive for RHINOVIRUS by NAAT technology RSV A Not Detected RSV B Not Detected NAAT METHOD Testing was performed using nucleic acid amplification ORGANISM 1: RHINOVIRUS Performed By: #### M100.638 #### [facility] [place], [address] LOWER EXT ARTERIAL Observed: 10/14/2017 Status: F Source: [place] STUDY 7:51 PM [facility] Cardiovascular Services [address] [place] [address] 10/14/171948 MR#: [id number] Acct: [id number] Name: ANGELES LARIOS Rep #: [id number] : 1960 57 From: Jaya Avelar MD Attending Dr: Matt FAROOQ,Martin Perdue Status: REG CLI Ordering Dr: Date: 10/14/17 Location: [facility] [place] Sex: F C Admitted: Arterial Study - Arterial Study Arterial Study: This is a 57-year-old female with a history of hypertension and coronary artery disease. The patient presents with bilateral lower extremity pain with ambulation, suggesting the presence of intermittent claudication resulting from arterial occlusive disease. She is brought to the noninvasive vascular laboratory at this time for the purpose of bilateral noninvasive lower extremity arterial assessment. Doppler signal assessment was used to evaluate the pulses at ankle level bilaterally. The posterior tibial and dorsalis pedis pulses were triphasic bilaterally. Segmental limb pressures were obtained at ankle level bilaterally. The right ankle pressure, as determined by posterior tibial pulse, was measured at 123 mmHg. The right ankle pressure, as determined by dorsalis pedis pulse, was measured at 132 mmHg. The left ankle pressure, as determined by posterior tibial pulse, was measured at 138 mmHg. The left ankle pressure, as determined by dorsalis pedis pulse, was measured at 118 mmHg. Resting ankle-brachial indices were calculated bilaterally. The resting right ankle-brachial index was calculated to be 1.02. The resting left ankle-brachial index was calculated to be 1.07. Impression: Based upon the findings of this resting noninvasive lower extremity arterial study, there is no evidence of significant atherosclerotic peripheral arterial occlusive disease in the lower extremities bilaterally. Triphasic waveforms were noted at ankle level bilaterally. Resting ankle-brachial indices were bilaterally normal. In summary, this represents a normal resting noninvasive lower extremity arterial study bilaterally. 10/14/171950 <Electronically signed by Jaya Avelar MD> Date Jaya Avelar MD CC: Martin Gutierrez MD Date Dictated: 10/14/171948 Date Transcribed: 10/14/171948 Manager Servicing: EDER Signed CARDIOLOGY VISIT Observed: 10/14/2017 Status: F Source: [place] REPORT 6:00 PM [facility] REPOSITORY [facility] [address] [place] [address] OFFICE VISIT Date of Service: 10/14/17 MR#: [id number] Acct: [id number] Name: ANGELES LARIOS Rep #: [id number] : 1960 Provider: Eliane Rodrigez Age/Sex: 57/F Location[place] [facility] Status: Signed HPI HPI Details: ANGELES LARIOS, is a 57 F who presents to the office today for an urgent cardiovasular appt. She call our office yesterday with concerns of increased edema and SOB. BMP and BNP were normal yesterday. She also notes that she had chest pain that was in her left arm. It felt like it did prior to her having her stents put in. This lasted approx 4-5 seconds. She does admit to having heaviness in her chest. It comes and goes. It did start a few weeks ago, but it did not last long. She did not think much of it until yesterday. She feels that she is more SOB with activity since last month. She has had some lightheadedness. She has a history of coronary artery disease with previous angioplasty and stenting of her RCA and 2009. She also had a mild cerebrovascular accident in June of 2012, was noted to have bilateral carotid stenosis and underwent a carotid left are endarterectomy. She does have sleep apnea and uses a CPAP machine. In June of 2017, Pt was hospitalized for an acute arterial clot in her right lower leg. She underwent a thrombectomy. She is now on Coumadin. Her PCP noted that she was anemic, she did obtain a stool card for her PCP. 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 Accompanied by: None Is patient in pain?: Yes (left sided chest aches) Pain scale (1-10): 3 Allergies Awwqeuh-Rls-Lpx Reductase Inhibitor Allergy (Verified 07/27/17 14:42) Other codeine Adverse Reaction (Verified 07/27/17 14:42) Other Medications Metoprolol(XL)Succ [Toprol Xl (Beta Linn)] 50 mg PO BID 09/05/16 [History Confirmed 10/14/17] Nitroglycerin [Nitrostat] 0.4 mg SUBLINGUAL Q5M PRN 09/05/16 [History Confirmed 10/14/17] aspirin 81 mg tablet,delayed release 81 mg PO .every other day tab 07/27/17 [History Confirmed 10/14/17] duloxetine 60 mg capsule,delayed release 60 mg PO BID cap 07/27/17 [History Confirmed 10/14/17] lisinopril 20 mg tablet 20 mg PO QDAY 07/27/17 [History Confirmed 10/14/17] rosuvastatin 10 mg tablet 10 mg PO ONCE 07/27/17 [History Confirmed 10/14/17] warfarin 1 mg tablet 1 mg PO QDAY 07/27/17 [History Confirmed 10/14/17] warfarin 6 mg tablet 6 mg PO ONCE 07/27/17 [History Confirmed 10/14/17] isosorbide mononitrate ER 60 mg tablet,extended release 24 hr 60 mg PO DAILY #90 tab 10/14/17 [Rx Confirmed 10/14/17] nitroglycerin 0.4 mg sublingual tablet 0.4 mg SUBLINGUAL Q5- 15M PRN #25 tab 10/14/17 [Rx Confirmed 10/14/17] Ejection fraction %: 60 to 64 PFSH Medical History CAD (coronary artery disease) (Chronic) Hypertension (Chronic) Hyperlipidemia (Chronic) CVA (cerebral vascular accident) (Chronic) Irritable bowel syndrome (Chronic) Sleep apnea (Chronic) Fibromyalgia (Inactive) Surgical History History of left-sided carotid endarterectomy (Resolved) Hx of appendectomy (Resolved) Family History Father , at age 38, from [place] Myocardial infarction cardiomopathy Mother Atrial fibrillation Hypertension Hyperlipidemia Diabetes Brother CAD (coronary artery disease) cardiomopathy Myocardial infarction Sister cardiomopathy Social History adopted: No Smoking Status: Current every day smoker tobacco type: cigarettes second hand exposure: Yes quit status: considering quitting alcohol intake: current alcohol intake frequency: holidays/special occasions only Alcohol type: hard liquor substance use type: does not use caffeine: Yes Type: coffee what type of physical activity do you participate in: none seatbelt use: sometimes do you feel safe at home: Yes Cardiology Exam Const Appearance: cooperative, no acute distress and well developed Orientation: alert, awake and oriented x3 Head Head: normocephalic and atraumatic Mouth: moist mucous membranes Eyes General: appearance normal, both eyes and all related structures Conjunctivae: conjunctivae normal Pupils: PERRL EOM: EOM intact bilaterally Neck Neck: normal visual inspection, no lymphadenopathy and no JVD Carotids: Negative bruit Neck Mass: Negative Neck mass Chest Chest inspection: normal inspection of the chest and symmetric chest movement Auscultation: Bilateral: Clear to Auscultation Cardio Palpation: normal PMI Rate: regular rate Rhythm: regular rhythm Heart sounds: S1 normal, S2 normal and murmur; negative rub or gallop Murmur: Grade 2/6 and harsh GI GI: normal to inspection, soft, no hepatosplenomegaly and bowel sounds present; negative tender Neuro General: alert, awake, oriented x3, CN's II-XI intact bilaterally and moves all extremities Extremities Pulses: Normal: Right Radial Pulse, Left Radial Pulse, Diminished: Right Posterior Tibial Pulse, Left Posterior Tibial Pulse Lower Extremity Edema: Trace: Bilateral Psych Psychological: normal affect Supplemental Info Echocardiogram in 2017 demonstrated Normal LV size. Mild concentric left ventricular hypertrophy. Left ventricular systolic function is normal. The estimated ejection fraction is 60 %. Mild focal aortic valve calcification. Stress test in 2016 was negative for ischemia. Assessment AND Plan Problems 1. Coronary artery disease involving tejon coronary artery of tejon heart without angina pectoris I25.10 2. Essential hypertension I10 3. Dyspnea on exertion R06.09 4. Other forms of angina pectoris I20.8 5. Anemia, unspecified type D64.9 Plan - KISHA aLndrum Patient is anemic. Her hemoglobin is 8. This could be contributing to her symptoms. She is following up with her primary care doctor regarding this. They are considering a blood transfusion. With her concerning symptoms, initially I would recommend proceeding with a heart catheterization. However patient is on Coumadin for a recent lower extremity arterial clot. Will proceed with a stress test. Will also increase her isosorbide to 60 mg daily. We will follow-up with patient closely. Orders Orders: Medications New: nitroglycerin until response; do not exceed 3 0.4 mg Sublingual Q5-15M PRN chest pain doses per event Changed: Plan Detail Additional Comments - KISHA Landrum The above patient was discussed with alina rosales and Dr. Samuel's absence, he agrees with plan of care. Thank you for allowing us to participate in patient's plan of care, if you have any questions please do not hesitate to call. This note was generated using a voice recognition system and there may be incorrect words, spelling or punctuation errors that were not noted when reviewing the office note prior to saving. Follow Up 6 Weeks (MMM/PACKAGING TECH) Coding Level of Care Code Off vis,est,level 4 Diagnoses Coronary artery disease involving tejon coronary artery of tejon heart without angina pectoris I25.10 Coronary Disease-Associated Artery/Lesion type: tejon artery Associated angina: without angina [place] vs. transplanted heart: tejon heart Essential hypertension I10 Hypertension type: essential hypertension Dyspnea on exertion R06.09 Other forms of angina pectoris I20.8 Ischemic chest pain type: other angina pectoris type Chest pain type: chest pain due to myocardial ischemia Anemia, unspecified type D64.9 Anemia type: unspecified type Coding Level of Care Code Off vis,est,level 4 Diagnoses Coronary artery disease involving tejon coronary artery of tejon heart without angina pectoris I25.10 Coronary Disease-Associated Artery/Lesion type: tejon artery Associated angina: without angina [place] vs. transplanted heart: tejon heart Essential hypertension I10 Hypertension type: essential hypertension Dyspnea on exertion R06.09 Other forms of angina pectoris I20.8 Ischemic chest pain type: other angina pectoris type Chest pain type: chest pain due to myocardial ischemia Anemia, unspecified type D64.9 Anemia type: unspecified type 10/14/17 0951 <Electronically signed by Eliane BEARD> Date Eliane BEARD 10/14/17 1800<Electronically signed by Joaquín Pabon MD> Cosigner Signature: Date (if applicable) Joaquín Pabon MD CC: Martin Gutierrez MD BASIC METABOLIC Collected: 10/13/2017 Status: F Source: [place] PROFILE (BMP) 4:13 PM [facility] REPOSITORY TYPE CODE TESTS RESULT OUT OF RANGE REFERENCE UNITS LAB L501.0100 74-106 mg/dL High GLU 127 Result Comment: Fasting Glucose result greater than or equal to 126 mg/dL suggests DIABETES MELLITUS per A.D.A. criteria. Please note revised GLUCOSE reference range effective 2017. LAB L501.1000 7-18 mg/dL Normal BUN 13 LAB L501.1100 0.55-1.02 mg/dL Normal CREAT,SERUM 0.72 Result Comment: The validity of the calculated GFR AND GFRAA in patients over 70 years has not been determined. Clinical correlation is essential. LAB L501.1110 >60 mL/min Normal EST GFR 88 Result Comment: Non- GFR Calc LAB L501.1115 >60 mL/min Normal EST GFR - AA 107 Result Comment: GFR Calc LAB L501.1300 10-20 RATIO Normal BUN/CRE 18.1 LAB L501.2200 8.5-10.1 mg/dL Low CA 8.2 LAB L501.5300 136-145 mmol/L NA Normal 139 LAB L501.5600 3.5-5.1 mmol/L K Normal 3.9 LAB L501.5900 98-107 mmol/L CL Normal 106 LAB L501.6100 21.0-32.0 mmol/L Normal CO2 27.0 LAB L501.6200 5-15 Normal GAP 6 Performed By: #### L500.2500 #### [facility] [address] [place], [address] BNP,B-TYPE NATRIURETIC Collected: 10/13/2017 Status: F Source: [place] PEPTIDE 4:13 PM [facility] REPOSITORY TYPE CODE TESTS RESULT OUT OF RANGE REFERENCE UNITS LAB L503.6620 0-100 pg/mL Normal B-TYPE 30.4 KRISTINA PEP Performed By: #### L503.6620 #### [facility] [address] [place], [address] CBC W/DIFF, AUTOMATED Collected: 10/02/2017 Status: F Source: [place] 11:21 AM [facility] REPOSITORY TYPE CODE TESTS RESULT OUT OF RANGE REFERENCE UNITS LAB L100.1000 4.4-11.0 K/mm3 Normal WBC 8.5 LAB L100.1200 4.2-5.4 M/mm3 Low RBC 3.67 LAB L100.1300 12.0-15.0 g/dl Low HGB 8.2 LAB L100.1400 37-47 % Low HCT 29.7 LAB L100.1500 81-99 fL Low MCV 80.9 LAB L100.1600 27.0-32.0 pg Low MCH 22.3 LAB L100.1700 32-36 g/gl Low MCHC 27.6 LAB L100.1810 11.6-14.6 % High RDW CV 17.8 LAB L100.1820 35.1-43.9 fl High RDW SD 50.8 LAB L100.1900 150-450 K/mm3 Normal PLT 378 LAB L100.2000 6.2-12.0 fl Normal MPV 10.7 LAB L100.2100 47-70 % Normal NEUT% 58.3 LAB L100.2200 19-41 % Normal LY% 26.1 LAB L100.2300 0-10 % High MONO% 12.3 LAB L100.2400 0-5 % Normal EO% 2.2 LAB L100.2500 0-1 % Normal BASO% 0.9 LAB L100.2550 0.0-0.9 % Normal IM GRAN % 0.200 Result Comment: IG% - Immature Granulocytes (promyelocytes, myelocytes and metamyelocytes) > 1% indicates that a LEFT SHIFT is Present. LAB L100.2620 2.0-7.7 X10 3/uL Normal Absolute Neut 5.0 LAB L100.2720 0.83-4.51 X10 3/ul Normal Absolute Lymph 2.23 Performed By: #### L100.0100 #### [facility], [address] COMPREHENSIVE METABOLIC Collected: 10/02/2017 Status: F [facility] REPOSITORY TYPE CODE TESTS RESULT OUT OF RANGE REFERENCE UNITS LAB L501.0100 74-106 mg/dL High GLU 134 Result Comment: Fasting Glucose result greater than or equal to 126 mg/dL suggests DIABETES MELLITUS per A.D.A. criteria. Please note revised GLUCOSE reference range effective 2017. LAB L501.1000 7-18 mg/dL Normal BUN 12 LAB L501.1100 0.55-1.02 mg/dL Normal CREAT,SERUM 0.86 Result Comment: The validity of the calculated GFR AND GFRAA in patients over 70 years has not been determined. Clinical correlation is essential. LAB L501.1110 >60 mL/min Normal EST GFR 71 Result Comment: Non- GFR Calc LAB L501.1115 >60 mL/min Normal EST GFR - AA 86 Result Comment: GFR Calc LAB L501.1300 10-20 RATIO Normal BUN/CRE 13.9 LAB L501.1500 6.4-8.2 g/dL T Normal PROT 7.0 LAB L501.1800 3.2-5.0 g/dL Normal ALB 3.2 LAB L501.1950 2.2-4.2 g/dL Normal GLOB 3.8 LAB L501.2000 0.9-2.4 RATIO Low A/G 0.8 LAB L501.2200 8.5-10.1 mg/dL Low CA 8.3 LAB L501.4100 15-37 U/L Low AST 12 LAB L501.4305 45-117 U/L Normal ALK P 110 LAB L501.4405 13-56 U/L Normal ALT 17 Result Comment: Please note revised ALT reference range effective 2017. LAB L501.4600 0.20-1.00 mg/dL Normal T BILI 0.20 LAB L501.5300 136-145 mmol/L Normal NA 137 LAB L501.5600 3.5-5.1 mmol/L Normal K 4.2 LAB L501.5900 98-107 mmol/L Normal CL 103 LAB L501.6100 21.0-32.0 mmol/L Normal CO2 22.0 LAB L501.6200 5-15 Normal GAP 12 Performed By: #### L500.4050, L501.9520 #### [facility] [address] [place], [address] THYROID STIM HORMONE Collected: 10/02/2017 Status: F Source: [place] (TSH) 11:21 AM [facility] REPOSITORY TYPE CODE TESTS RESULT OUT OF RANGE REFERENCE UNITS LAB L501.9520 0.358-3.74 uIU/mL Normal TSH 2.15 Performed By: #### L500.4050, L501.9520 #### [facility] [address] [place], [address] VITAMIN D,25 HYDROXY Collected: 10/02/2017 Status: F Source: [place] 11:21 AM [facility] REPOSITORY TYPE CODE TESTS RESULT OUT OF RANGE REFERENCE UNITS LAB L506.1000 19.95-100.01 ng/mL Normal Vitamin D 22.5 25-OH Result Comment: Vitamin D 25(OH) Status Range Deficiency <20 ng/mL (50nmol/L) Insuffciency 20 - 30 ng/mL (50 - 75 nmol/L) Sufficiency 30 - 100 ng/mL (75 - 250 nmol/L) Toxicity >100 ng/mL (>250 nmol/L) Performed By: #### L506.1000 #### [facility] [address] [place], [address] PROGRESS Observed: 08/13/2017 Status: COMPLETED Source: [place] 10:56 AM [facility] REPOSITORY O ID: [id number] Author: Celine Correa Service: (none) Author Type: Physician Type: Progress Notes Filed: 08/13/2017 11:02 AM Note Text: Angeles Larios is a 57 year old female who presents in follow up after RLe embolectomy on 06/25/17 The pt is doing well post surgery. They are following post op instructions. The incisions are healing well. At her first post op visit she complained of some swelling at the incision site as well as some mild drainage. Today her incision is essentially healed except for a small pinhole that appears to be draining some mild serous fluid. She states this has gone down and decreased significantly since her last visit. We reviewed the etiology and treatment of seroma and that typically I would wait a few more months before I would consider treatment and that I suspect it will resolve. She has some mild swelling in her R leg and was encouraged to keep it elevated. She does not want to use compression stockings which is reasonable She continues to have some mild numbness in her medial thigh which we discussed is normal. And she states the feeling is returning. We discussed pvd and claudication. She denies any symptoms of claudication and rest pain. Her engraver rubber told her she had decreased pulses. We reviewed the risk of tissue loss and amputation associated with it and that she should return if she develops a slowly or non healing wound. She was offered either to set a follow up appt, or just to return prn. She states she will return prn if new symptoms develop or if her current symptoms do not resolve. Her coumadin is managed by her pcp. MEDICATIONS: Current Outpatient Prescriptions: levothyroxine (SYNTHROID) 25 mcg tablet Take 25 mcg by mouth once daily. Disp: Rfl: rosuvastatin (CRESTOR) 10 mg tablet Take 10 mg by mouth once daily. Disp: Rfl: warfarin (COUMADIN) 1 mg tablet Disp: Rfl: warfarin (COUMADIN) 6 mg tablet Disp: Rfl: aspirin, enteric coated (ASPIRIN, ENTERIC COATED) 81 mg EC tablet Take 1 tablet by mouth once daily. Disp: 30 tablet Rfl: 1 warfarin (COUMADIN) 5 mg tablet Take 1 tablet by mouth daily as directed. (Patient taking differently: Take 5 mg by mouth daily as directed. Taking 7.5 mg daily ) Disp: 7 tablet Rfl: 0 DULoxetine (CYMBALTA) 60 mg capsule Take 60 mg by mouth twice daily. Disp: Rfl: lisinopril (ZESTRIL, PRINIVIL) 20 mg tablet Take 20 mg by mouth once daily. Disp: Rfl: isosorbide mononitrate ER (IMDUR) 30 mg 24 hr tablet Take 30 mg by mouth once daily. Disp: Rfl: Omeprazole 40 mg capsule Take 40 mg by mouth once daily as needed (for acid reflux). Disp: Rfl: METOPROLOL TARTRATE, SHORT ACTING, 50 mg tablet twice daily. Disp: Rfl: amoxicillin-clavulanic acid (AUGMENTIN) 875-125 mg per tablet Disp: Rfl: buPROPion SR (ZYBAN SR; WELLBUTRIN SR) 150 mg 12 hr tablet Disp: Rfl: cephALEXin (KEFLEX) 500 mg capsule Disp: Rfl: clopidogrel (PLAVIX) 75 mg tablet Disp: Rfl: DULoxetine (CYMBALTA) 30 mg capsule Disp: Rfl: No current facility-administered medications for this visit. ALLERGIES Allergen Reactions - Codeine Other: See Comments somnulence - Kklukuc-Fry-Cit Red* Other: See Comments Leg cramps BP 142/70 Pulse 76 Resp 16 Ht 5' 7 (1.70m) Wt 275 lb (124.7kg) BMI 43.06 kg/(m2). PHYSICAL EXAM: PHYSICAL EXAMINATION: General appearance: Well appearing, alert, in no acute distress, well-hydrated, well nourished. Skin: Skin color, texture, turgor normal, no suspicious rashes or lesions Head: Normocephalic, no masses, lesions, tenderness or abnormalities Lungs: unlabored breathing Heart: Abdomen: Extremities: No deformities, edema, skin discoloration, clubbing or cyanosis. Good capillary refill. Musculoskeletal: No joint swelling, deformity, or tenderness Peripheral pulses: Neuro: Incision healing well without evidence of infection ASSESSMENT: History of RLE embolectomy PLAN: Follow up prn Local wound care FOLLOW UP: Return if symptoms worsen or fail to improve. Celine Correa MD CNOV Observed: 08/13/2017 Status: COMPLETED Source: [place] 10:30 AM CLINIC OTHER LUTSEN REPOSITORY Office Visit (AGVASACC) ANGELES LARIOS ([id number]) 1960 F Date Time Provider Department 08/13/17 10:30 AM CELINE CORREA [facility] During your visit today, we recorded the following information about you: Pulse Respiration Blood pressure Weight 76/minute 16/minute 142/70 124.7 kg Height 1.702 m Celine Correa MD 08/13/2017 11:02 AM Signed Angeles Duboisy is a 57 year old female who presents in follow up after RLe embolectomy on 06/25/17 The pt is doing well post surgery. They are following post op instructions. The incisions are healing well. At her first post op visit she complained of some swelling at the incision site as well as some mild drainage. Today her incision is essentially healed except for a small pinhole that appears to be draining some mild serous fluid. She states this has gone down and decreased significantly since her last visit. We reviewed the etiology and treatment of seroma and that typically I would wait a few more months before I would consider treatment and that I suspect it will resolve. She has some mild swelling in her R leg and was encouraged to keep it elevated. She does not want to use compression stockings which is reasonable She continues to have some mild numbness in her medial thigh which we discussed is normal. And she states the feeling is returning. We discussed pvd and claudication. She denies any symptoms of claudication and rest pain. Her engraver rubber told her she had decreased pulses. We reviewed the risk of tissue loss and amputation associated with it and that she should return if she develops a slowly or non healing wound. She was offered either to set a follow up appt, or just to return prn. She states she will return prn if new symptoms develop or if her current symptoms do not resolve. Her coumadin is managed by her pcp. MEDICATIONS: Current Outpatient Prescriptions: levothyroxine (SYNTHROID) 25 mcg tablet Take 25 mcg by mouth once daily. Disp: Rfl: rosuvastatin (CRESTOR) 10 mg tablet Take 10 mg by mouth once daily. Disp: Rfl: warfarin (COUMADIN) 1 mg tablet Disp: Rfl: warfarin (COUMADIN) 6 mg tablet Disp: Rfl: aspirin, enteric coated (ASPIRIN, ENTERIC COATED) 81 mg EC tablet Take 1 tablet by mouth once daily. Disp: 30 tablet Rfl: 1 warfarin (COUMADIN) 5 mg tablet Take 1 tablet by mouth daily as directed. (Patient taking differently: Take 5 mg by mouth daily as directed. Taking 7.5 mg daily ) Disp: 7 tablet Rfl: 0 DULoxetine (CYMBALTA) 60 mg capsule Take 60 mg by mouth twice daily. Disp: Rfl: lisinopril (ZESTRIL, PRINIVIL) 20 mg tablet Take 20 mg by mouth once daily. Disp: Rfl: isosorbide mononitrate ER (IMDUR) 30 mg 24 hr tablet Take 30 mg by mouth once daily. Disp: Rfl: Omeprazole 40 mg capsule Take 40 mg by mouth once daily as needed (for acid reflux). Disp: Rfl: METOPROLOL TARTRATE, SHORT ACTING, 50 mg tablet twice daily. Disp: Rfl: amoxicillin-clavulanic acid (AUGMENTIN) 875-125 mg per tablet Disp: Rfl: buPROPion SR (ZYBAN SR; WELLBUTRIN SR) 150 mg 12 hr tablet Disp: Rfl: cephALEXin (KEFLEX) 500 mg capsule Disp: Rfl: clopidogrel (PLAVIX) 75 mg tablet Disp: Rfl: DULoxetine (CYMBALTA) 30 mg capsule Disp: Rfl: No current facility-administered medications for this visit. ALLERGIES Allergen Reactions - Codeine Other: See Comments somnulence - Vtqeyww-Dnb-Kug Red* Other: See Comments Leg cramps BP 142/70 Pulse 76 Resp 16 Ht 5' 7ANDquot; (1.70m) Wt 275 lb (124.7kg) BMI 43.06 kg/(m2). PHYSICAL EXAM: PHYSICAL EXAMINATION: General appearance: Well appearing, alert, in no acute distress, well-hydrated, well nourished. Skin: Skin color, texture, turgor normal, no suspicious rashes or lesions Head: Normocephalic, no masses, lesions, tenderness or abnormalities Lungs: unlabored breathing Heart: Abdomen: Extremities: No deformities, edema, skin discoloration, clubbing or cyanosis. Good capillary refill. Musculoskeletal: No joint swelling, deformity, or tenderness Peripheral pulses: Neuro: Incision healing well without evidence of infection ASSESSMENT: History of RLE embolectomy PLAN: Follow up prn Local wound care FOLLOW UP: Return if symptoms worsen or fail to improve. 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] Prescriptions as of 08/13/2017 Sig: LEVOTHYROXINE 25 MCG TABLET Take 25 mcg by mouth once christiano* ROSUVASTATIN 10 MG TABLET Take 10 mg by mouth once laura* WARFARIN 1 MG TABLET WARFARIN 6 MG TABLET ASPIRIN 81 MG TABLET,DELAYED * Take 1 tablet by mouth once d* WARFARIN 5 MG TABLET Take 1 tablet by mouth daily * Patient taking differently: Take 5 mg by mouth daily as d* DULOXETINE 60 MG CAPSULE,MCKENZIE* Take 60 mg by mouth twice christiano* LISINOPRIL 20 MG TABLET Take 20 mg by mouth once laura* ISOSORBIDE MONONITRATE ER 30 * Take 30 mg by mouth once laura* OMEPRAZOLE 40 MG CAPSULE,MCKENZIE* Take 40 mg by mouth once laura* METOPROLOL TARTRATE 50 MG TAB* twice daily. AMOXICILLIN 875 MG-POTASSIUM * BUPROPION HCL SR 150 MG TABLE* CEPHALEXIN 500 MG CAPSULE CLOPIDOGREL 75 MG TABLET DULOXETINE 30 MG CAPSULE,MCKENZIE* Medication notes this encounter AMOXICILLIN 875 MG-POTASSIUM CLAVULANATE 125 MG TABLET >> Tulio Augustine LPN 08/13/2017 10:26 AM >> TULIO AUGUSTINE LPN [facility] Aug 13, 2017 10:26 AM completed BUPROPION HCL SR 150 MG TABLET,12 HR SUSTAINED-RELEASE >> Tulio Augustine LPN 08/13/2017 10:26 AM >> TULIO AUGUSTINE LPN [facility] Aug 13, 2017 10:26 AM Not taking CEPHALEXIN 500 MG CAPSULE >> Tulio Augustine LPN 08/13/2017 10:27 AM >> TULIO AUGUSTINE LPN [facility] Aug 13, 2017 10:27 AM completed CLOPIDOGREL 75 MG TABLET >> Tulio Augustine LPN 08/13/2017 10:27 AM >> TULIO AUGUSTINE LPN [facility] Aug 13, 2017 10:27 AM Not taking DULOXETINE 30 MG CAPSULE,DELAYED RELEASE >> Tulio Augustine LPN 08/13/2017 10:26 AM >> TULIO AUGUSTINE LPN [facility] Aug 13, 2017 10:26 AM Not taking Problem List As Of Date 08/13/2017 Noted Resolved Occlusion and stenosis of carotid artery withou*INVALID FOR* 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 Follow-up and Disposition History Recorded Encounter Status:Closed by CELINE CORREA MD on 08/13/17 ALLERGIES ALLERGIES DATE TYPE / CODE NAME / CODE REACTION SEVERITY SOURCE 07/01/2018 Drug Funxxdz-Cdt-Gke Other [place] Allergy/416 [facility] 446733(SNOM Inhibitor/I207810 Hospital ED CT) 095(RXNORM) Repository 07/01/2018 Drug codeine/[id number] Other [place] Allergy/416 0(RXNORM) [facility] 126462([facility] ED CT) Repository 07/01/2018 Drug bupropion/C443011 Rash [place] Allergy/416 611(RXNORM) Community 634482([facility] ED CT) Repository 10/25/2014 Drug UEBQQWK-KMJ-INE OTHER: SEE C [facility] Class/64853 REDUCTASE Other [place] 1003(SNOMED INHIBITORS Repository CT) 09/30/2012 DRUG CODEINE OTHER: SEE C [facility] INGREDI/419 Other [place] 014727(SNOM Repository ED CT) 09/08/2005 DRUG BUPROPION HCL RASH [facility] INGREDI/419 Other [place] 296040(SNOM Repository ED CT) NG/26405767 CODEINE [facility] 6(SNOMED [facility]) Repository NG/67613379 XYPLBOF-BJM-VKA [facility] 6(SNOMED REDUCTASE Health System CT) INHIBITORS Repository NG/61318739 BUPROPION HCL [facility] 6(SNOMED [facility]) Repository ENCOUNTERS ENCOUNTERS ADMIT/DISCHARGE ACCOUNT NUMBER ADMITTING ENCOUNTER LOCATION SOURCE CLASS 07/28/2018 [id number] Ambulatory [facility] ding:POLAB3 Repository 07/20/2018 [id number] Ambulatory [facility] ding:NM Repository 07/09/2018 [id number] Ambulatory [facility] ding:[place] Repository 07/07/2018 [id number] Ambulatory [facility] ding:ONC Repository 07/05/2018 [id number] Ambulatory [facility] ding:POLAB3 Repository 07/01/2018 [id number] Ambulatory BMSBuilding: [place] BMS.CF.[facility] Repository 06/14/2018/06/18/20 [id number] Ambulatory [address] Repository 05/10/2018/05/13/20 [id number] Ambulatory [address] Repository 04/20/2018/04/20/20 [id number] Ambulatory BMSBuilding: [place] 18 BMS.[facility] Repository 04/15/2018 [id number] Ambulatory [facility] Hospital ding:CT Repository 04/09/2018/04/09/20 [id number] Ambulatory BMSBuilding: [place] 18 BMS.[facility] Repository 04/02/2018 [id number] Ambulatory [facility] Hospital ding:POLAB3 Repository 04/01/2018 [id number] Ambulatory BMSBuilding: [place] BMS.CF.[facility] Repository 03/31/2018 [id number] Ambulatory [facility] Hospital ding:CVS Repository 03/31/2018 [id number] Ambulatory BMSBuilding: [place] BMS.CF.[facility] Repository 02/09/2018 [id number] Ambulatory BMSBuilding: [place] BMS.CF.[facility] Repository 02/09/2018/02/10/20 [id number] Ambulatory BMSBuilding: [place] 18 BMS.[facility] Repository 02/08/2018 [id number] Ambulatory BMSBuilding: [place] BMS.[facility] Repository 02/05/2018 [id number] Ambulatory [facility] Hospital ding:OPBI Repository 01/12/2018 [id number] Ambulatory [facility] Hospital ding:POLAB3 Repository 01/04/2018/01/06/20 [id number] Joaquín Tillman Ambulatory [address] ding:FZ6Krcy Repository : FI197Gvr: 1 01/04/2018 [id number] Joaquín Tillman Ambulatory BMSBuilding: [place] BMS.[facility] Repository 01/04/2018 [id number] Ambulatory BMSBuilding: [place] BMS.[facility] Repository 12/10/2017 [id number] Ambulatory BMSBuilding: [place] BMS.CF.[facility] Repository 12/07/2017 [id number] Ambulatory [facility] Hospital ding:POLAB3 Repository 12/03/2017 [id number] Ambulatory [facility] Hospital ding:EN Repository 11/30/2017/12/04/19 [id number] Joaquín Tillman Inpatient [place] [facility] ding:PCURoom Repository : PTI165Yxy: 1 11/30/2017 [id number] Joaquín Tillman Ambulatory BMSBuilding: [place] BMS.[facility] Repository 11/30/2017 [id number] Joaquín Tillman Ambulatory BMSBuilding: [place] BMS.CF.[facility] Repository 11/30/2017 [id number] Joaquín Tillman Ambulatory BMSBuilding: [place] [facility] Repository 11/30/2017 [id number] Joaquín Tillman Ambulatory BMSBuilding: [place] BMS.[facility] Repository 11/30/2017 [id number] Joaquín Tillman Ambulatory BMSBuilding: [place] BMS.[facility] Repository 11/30/2017 [id number] Joaquín Tillman Ambulatory BMSBuilding: [place] BMS.[facility] Repository 11/30/2017 [id number] Ambulatory BMSBuilding: [place] BMS.[facility] Repository 11/24/2017/11/25/19 [id number] Ambulatory BMSBuilding: [place] 18 BMS.[facility] Repository 11/13/2017/11/14/19 [id number] Ambulatory BMSBuilding: [place] 18 BMS.[facility] Repository 11/11/2017 [id number] Ambulatory BMSBuilding: [place] BMS.[facility] Repository 11/02/2017 [id number] Ambulatory [facility] Hospital ding:CVS Repository 11/02/2017 [id number] Ambulatory BMSBuilding: [place] [facility] Repository 10/29/2017 [id number] Ambulatory [facility] ding:PSN Repository 10/14/2017 [id number] Ambulatory [facility] ding:CVS Repository 10/14/2017/10/14/19 [id number] Ambulatory BMSBuilding: [place] 18 BMS.[facility] Repository 10/13/2017 [id number] Ambulatory [facility] ding:LAB Repository 10/02/2017 [id number] Ambulatory [facility] ding:POLAB3 Repository 08/13/2017/08/13/20 [id number] Ambulatory [address] Other [place] Repository 08/13/2017/08/13/20 [id number] Ambulatory [address] MEDICAL Repository CENTERBuildi ng:AGVASACC PAYERS PAYERS ENCOUNTER GUARANTOR PAYER SUBSCRIBER SOURCE 07/28/2018 ANGELES Rock Primary ANGELES Castano [id number] [address] Insurance:MEDICAL HARRYDOB: [facility] [id number] Number: Repository [address]Bwi: 330 [id number] [phone] (HP) Date:7263-80-36HP [address] [place] [address]NS: 07/28/2018 Secondary NOT GIVENUNK [place] Insurance:SELF PAY [facility] Number: Effective Repository Date:2018-07-28 07/20/2018 ANGELES Rock Primary ANGELES Castano [id number] [address] Insurance:MEDICAL HARRYDOB: [facility] 4780-38-44[place] Number: Repository [address]Xcw: 330 [id number] [phone] () Date:5448-61-39UQ [address] [address]BT: 07/20/2018 Secondary NOT GIVENUNK [place] Insurance:SELF PAY [facility] Number: Effective Repository Date:2018-07-13 07/09/2018 ANGELES Rock Primary ANGELES Castano [id number] [address] Insurance:MEDICAL HARRYDOB: [facility] [id number] Number: Repository [address]Nik: 330 [id number] [phone] () Date:9107-57-43IY [address] [address]NM: 07/09/2018 Secondary NOT GIVENUNK [place] Insurance:SELF PAY [facility] Number: Effective Repository Date:2018-07-07 07/07/2018 ANGELES Rock Primary ANGELES Castano [id number] [address] Insurance:MEDICAL HARRYDOB: [facility] [id number] Number: Repository [address]Jds: 330 [id number] [phone] (HP) Date:0708-82-00KS [address] [address]BT: 07/07/2018 Secondary NOT GIVENUNK [place] Insurance:SELF PAY [facility] Number: Effective Repository Date:2017-12-08 07/05/2018 ANGELES Rock Primary ANGELES Castano [id number] [address] Insurance:MEDICAL HARRYDOB: [facility] [id number] Number: Repository [address]Mbo: 330 [id number] [phone] (HP) Date:1889-28-97VD [address] [address]EA: 07/05/2018 Secondary NOT GIVENUNK [place] Insurance:SELF PAY [facility] Number: Effective Repository Date:2018-07-05 07/01/2018 ANGELES Rock Primary ANGELES Castano [id number] [address] Insurance:MEDICAL HARRYDOB: [facility] [id number] Number: Repository [address]Xwb: 330 [id number] [phone] (HP) Date:4148-22-02MU[address] [address]XV: 07/01/2018 Secondary NOT GIVENUNK [place] Insurance:SELF PAY [facility] Number: Effective Repository Date:2018-07-01 04/20/2018 ANGELES Rock Primary ANGELES Castano [id number] [address] Insurance:MEDICAL HARRYDOB: [facility] [id number] Number: Repository [address]Kpz: 330 [id number] [phone] (HP) Date:3220-29-59CW [address] [address]TW: 04/20/2018 Secondary NOT GIVENUNK [place] Insurance:SELF PAY [facility] Number: Effective Repository Date:2018-04-20 04/15/2018 ANGELES Rock Primary ANGELES Rock [place] [id number] [address] Insurance:MEDICAL HARRYDOB: [facility] [id number] Number: Repository [address]Rtc: 330 [id number] [phone] (HP) Date:1215-45-05OB [address] [address]QW: 04/15/2018 Secondary NOT GIVENUNK [place] Insurance:SELF PAY [facility] Number: Effective Repository Date:2018-04-09 04/09/2018 ANGELES Rock Primary ANGELES Laraoster [id number] [address] Insurance:MEDICAL HARRYDOB: [facility] [id number] Number: Repository [address]Out: 330 [id number] [phone] (HP) Date:4211-63-18LZ [address] [address]PI: 04/09/2018 Secondary NOT GIVENUNK [place] Insurance:SELF PAY [facility] Number: Effective Repository Date:2018-04-09 04/02/2018 ANGELES Rock Primary ANGELES Rock [place] [id number] [address] Insurance:MEDICAL HARRYDOB: [facility] [id number] Number: Repository [address]Ewr: 330 [id number] [phone] (HP) Date:6026-33-61LS [address] [address]PS: 04/02/2018 Secondary NOT GIVENUNK [place] Insurance:SELF PAY [facility] Number: Effective Repository Date:2018-04-02 04/01/2018 ANGELES Rock Primary ANGELES Castano [id number] [address] Insurance:MEDICAL HARRYDOB: [facility] [id number] Number: Repository [address]Eot: 330 [id number] [phone] (HP) Date:0664-83-05RX [address] [address]YX: 04/01/2018 Secondary NOT GIVENUNK [place] Insurance:SELF PAY [facility] Number: Effective Repository Date:2018-04-01 03/31/2018 ANGELES Rock Primary ANGELES Rock [place] [id number] [address] Insurance:MEDICAL HARRYDOB: [facility] [id number] Number: Repository [address]Rmr: 330 [id number] [phone] (HP) Date:6492-09-10FM [address] [address]UP: 03/31/2018 Secondary NOT GIVENUNK [place] Insurance:SELF PAY [facility] Number: Effective Repository Date:2018-03-23 03/31/2018 ANGELES Rock Primary ANGELES Castano [id number] [address] Insurance:MEDICAL HARRYDOB: [facility] [id number] Number: Repository [address]Uhp: 330 [id number] [phone] (HP) Date:2414-79-85AX [address] [address]JB: 03/31/2018 Secondary NOT GIVENUNK [place] Insurance:SELF PAY [facility] Number: Effective Repository Date:2018-03-31 02/09/2018 ANGELES S Primary ANGELES Castano [id number] [address] Insurance:MEDICAL HARRYDOB: [facility] [id number] Number: Repository [address]Mzn: 330 [id number] [phone] (HP) Date:1491-18-33QG [address] [address]SE: 02/09/2018 Secondary NOT GIVENUNK [place] Insurance:SELF PAY [facility] Number: Effective Repository Date:2018-02-09 02/09/2018 ANGELES Rock Primary ANGELES Castano [id number] [address] Insurance:MEDICAL HARRYDOB: [facility] [id number] Number: Repository [address]Bny: 330 [id number] [phone] (HP) Date:6000-81-63UK [address] [address]HE: 02/09/2018 Secondary NOT GIVENUNK [place] Insurance:SELF PAY [facility] Number: Effective Repository Date:2018-02-09 02/08/2018 ANGELES Rock Primary ANGELES Rock [place] [id number] [address] Insurance:MEDICAL HARRYDOB: [facility] [id number] Number: Repository [address]Evw: 330 [id number] [phone] (HP) Date:5318-29-55VR [address] [address]AU: 02/08/2018 Secondary NOT GIVENUNK [place] Insurance:SELF PAY [facility] Number: Effective Repository Date:2018-02-08 02/05/2018 ANGELES Rock Primary ANGELES Rock [place] [id number] [address] Insurance:MEDICAL HARRYDOB: [facility] [id number] Number: Repository [address]Iob: 330 [id number] [phone] (HP) Date:6442-91-51KO [address] [address]TL: 02/05/2018 Secondary NOT GIVENUNK [place] Insurance:SELF PAY [facility] Number: Effective Repository Date:2017-12-10 01/12/2018 ANGELES S Primary ANGELES Rock [place] [id number] [address] Insurance:MEDICAL HARRYDOB: [facility] [id number] Number: Repository [address]Zwr: 330 [id number] [phone]) Date:8951-59-89IU [address] [place] [address]IH: 01/12/2018 Secondary NOT GIVENUNK [place] Insurance:SELF PAY [facility] Number: Effective Repository Date:2018-01-12 01/04/2018 ANGELES S Primary ANGELES S [place] [id number] [address] Insurance:MEDICAL HARRYDOB: [facility] [id number] Number: Repository [address]Igf: 330 [id number] [phone]) Date:7284-61-45XA [address] [place] [address]HF: 01/04/2018 Secondary NOT GIVENUNK [place] Insurance:SELF PAY [facility] Number: Effective Repository Date:2018-01-04 01/04/2018 ANGELES S Primary ANGELES S [place] [id number] [address] Insurance:MEDICAL HARRYDOB: [facility] [id number] Number: Repository [address]Zpv: 330 [id number] [phone]) Date:2035-82-02PM [address] [place] [address]JF: 01/04/2018 Secondary NOT GIVENUNK [place] Insurance:SELF PAY [facility] Number: Effective Repository Date:2018-01-04 01/04/2018 ANGELES S Primary ANGELES S [place] [id number] [address] Insurance:MEDICAL HARRYDOB: [facility] [id number] Number: Repository [address]Rbl: 330 [id number] [phone]) Date:4869-39-79YB [address] [place] [address]ZE: 01/04/2018 Secondary NOT GIVENUNK [place] Insurance:SELF PAY [facility] Number: Effective Repository Date:2018-01-04 12/10/2017 ANGELES S Primary ANGELES Rock [place] [id number] [address] Insurance:MEDICAL HARRYDOB: [facility] [id number] Number: Repository [address]Rfk: 330 [id number] [phone] (HP) Date:3419-19-47QR [address] [place] [address]MU: 12/10/2017 Secondary NOT GIVENUNK [place] Insurance:SELF PAY [facility] Number: Effective Repository Date:2017-12-10 12/07/2017 ANGELES S Primary NOT GIVENUNK [place] [id number] [address] Insurance:SELF PAY [place] Number: Effective Repository [id number]: 330) Date:2017-07-14 [phone] (HP) 12/03/2017 ANGELES S Primary ANGELES S [place] [id number] [address] Insurance:MEDICAL HARRYDOB: [facility] [id number] Number: Repository [address]Vaz: 330 [id number] [phone] (HP) Date:1226-48-39QQ [address] [address]UB: 12/03/2017 Secondary NOT GIVENUNK [place] Insurance:SELF PAY [facility] Number: Effective Repository Date:2017-11-26 11/30/2017 ANGELES S Primary ANGELES S [place] [id number] [address] Insurance:MEDICAL HARRYDOB: [facility] [id number] Number: Repository [address]Vpl: 330 [id number] [phone]) Date:7144-18-72JA [address] [address]ZF: 11/30/2017 Secondary NOT GIVENUNK [place] Insurance:SELF PAY [facility] Number: Effective Repository Date:2017-11-30 11/30/2017 ANGELES Rock Primary ANGELES Castano [id number] [address] Insurance:MEDICAL HARRYDOB: [facility] [id number] Number: Repository [address]Hfi: 330 [id number] [phone] (HP) Date:9733-08-78PR [address] [address]QP: 11/30/2017 Secondary NOT GIVENUNK [place] Insurance:SELF PAY [facility] Number: Effective Repository Date:2017-11-30 11/30/2017 ANGELES Rock Primary ANGELES Castano [id number] [address] Insurance:MEDICAL HARRYDOB: [facility] [id number] Number: Repository [address]Qby: 330 [id number] [phone] (HP) Date:7854-74-59QZ[address] [address]YE: 11/30/2017 Secondary NOT GIVENUNK [place] Insurance:SELF PAY [facility] Number: Effective Repository Date:2017-11-30 11/30/2017 ANGELES Rock Primary ANGELES Castano [id number] [address] Insurance:MEDICAL HARRYDOB: [facility] [id number] Number: Repository [address]Nwi: 330 [id number] [phone] (HP) Date:6896-65-25XK [address] [address]BV: 11/30/2017 Secondary NOT GIVENUNK [place] Insurance:SELF PAY [facility] Number: Effective Repository Date:2017-11-30 11/30/2017 ANGELES Rock Primary ANGELES Rock Eyad [id number] [address] Insurance:MEDICAL HARRYDOB: [facility] [id number] Number: Repository [address]Cal: 330 [id number] [phone] (HP) Date:6699-95-46TV [address] [address]PM: 11/30/2017 Secondary NOT GIVENUNK [place] Insurance:SELF PAY [facility] Number: Effective Repository Date:2017-11-30 11/30/2017 ANGELES S Primary ANGELES S [place] [id number] [address] Insurance:MEDICAL HARRYDOB: [facility] [id number] Number: Repository [address]Ylw: 330 [id number] [phone] (HP) Date:6683-31-07WL [address] [address]OM: 11/30/2017 Secondary NOT GIVENUNK Ey[place] Insurance:SELF PAY [facility] Number: Effective Repository Date:2017-11-30 11/30/2017 ANGELES S Primary ANGELES S [place] [id number] [address] Insurance:MEDICAL HARRYDOB: [facility] [id number] Number: Repository [address]Kcb: 330 [id number] [phone] (HP) Date:6651-01-84EH [address] [address]RM: 11/30/2017 Secondary NOT GIVENUNK [place] Insurance:SELF PAY [facility] Number: Effective Repository Date:2017-11-30 11/30/2017 ANGELES S Primary ANGELES S [place] [id number] [address] Insurance:MEDICAL HARRYDOB: [facility] [id number] Number: Repository [address]Ide: 330 [id number] [phone] (HP) Date:2465-98-60UR [address] [address]DC: 11/30/2017 Secondary NOT GIVENUNK [place] Insurance:SELF PAY [facility] Number: Effective Repository Date:2017-11-30 11/24/2017 ANGELES S Primary ANGELES Castano [id number] [address] Insurance:MEDICAL HARRYDOB: [facility] [id number] Number: Repository [address]Egs: 330 [id number] [phone] (HP) Date:4505-75-07AL [address] [place] [address]IB: 11/24/2017 Secondary NOT GIVENUNK Ey[place] Insurance:SELF PAY [facility] Number: Effective Repository Date:2017-11-24 11/13/2017 ANGELES S Primary ANGELES Castano [id number] [address] Insurance:MEDICAL HARRYDOB: [facility] [id number] [place] Number: Repository [address]Sbm: 330 [id number] [phone]) Date:7306-04-63UA [address] [address]DL: 11/13/2017 Secondary NOT GIVENUNK [place] Insurance:SELF PAY [facility] Number: Effective Repository Date:2017-11-13 11/11/2017 ANGELES S Primary ANGELES Castano [id number] [address] Insurance:MEDICAL HARRYDOB: [facility] [id number] Number: Repository [address]Rwx: 330 [id number] [phone] (HP) Date:8039-52-54CI [address] [address]ZF: 11/11/2017 Secondary NOT GIVENUNK [place] Insurance:SELF PAY [facility] Number: Effective Repository Date:2017-11-10 11/02/2017 ANGELES S Primary ANGELES Castano [id number] [address] Insurance:MEDICAL HARRYDOB: [facility] [id number] Number: Repository [address]Qav: 330 [id number] [phone]) Date:5375-42-21PU [address] [place] [address]DT: 11/02/2017 Secondary NOT GIVENUNK [place] Insurance:SELF PAY [facility] Number: Effective Repository Date:2017-10-14 11/02/2017 ANGELES Rock Primary ANGELES Castano [id number] [address] Insurance:MEDICAL HARRYDOB: [facility] [id number] Number: Repository [address]Ueu: 330 [id number] [phone]) Date:6513-41-46WS [address] [address]EE: 11/02/2017 Secondary NOT GIVENUNK [place] Insurance:SELF PAY [facility] Number: Effective Repository Date:2017-11-02 10/29/2017 ANGELES S Primary ANGELES Castano [id number] [address] Insurance:MEDICAL HARRYDOB: [facility] [id number] Number: Repository [address]Jdv: 330 [id number] [phone]) Date:9541-10-35ZE [address] [address]DN: 10/29/2017 Secondary NOT GIVENUNK Ey[place] Insurance:SELF PAY [facility] Number: Effective Repository Date:2017-10-29 10/14/2017 ANGELES S Primary ANGELES Castano [id number] [address] Insurance:MEDICAL HARRYDOB: [facility] [id number] Number: Repository [address]Pef: 330 [id number] [phone]) Date:9972-50-02DB [address] [address]ED: 10/14/2017 Secondary NOT GIVENUNK [place] Insurance:SELF PAY [facility] Number: Effective Repository Date:2017-10-02 10/14/2017 ANGELES Rock Primary ANGELES Rock [place] [id number] [address] Insurance:MEDICAL HARRYDOB: [facility] [id number] Number: Repository [address]Ifu: 330 [id number] [phone] (HP) Date:3204-55-77BP [address] [address]FX: 10/14/2017 Secondary NOT GIVENUNK [place] Insurance:SELF PAY [facility] Number: Effective Repository Date:2017-10-13 10/13/2017 ANGELES S Primary ANGELES Rock Eyad [id number] [address] Insurance:MEDICAL HARRYDOB: [facility] [id number] Number: Repository [address]Ohu: 330 [id number] [phone] (HP) Date:9559-31-74NM [address] [address]IX: 10/13/2017 Secondary NOT GIVENUNK [place] Insurance:SELF PAY [facility] Number: Effective Repository Date:2017-10-13 10/02/2017 ANGELES S Primary ANGELES Castano [id number] [address] Insurance:MEDICAL HARRYDOB: [facility] [id number] Number: Repository [address]Oxp: 330 [id number] [phone] (HP) Date:8552-05-69FM [address] [address]ZT: 10/02/2017 Secondary NOT GIVENUNK [place] Insurance:SELF PAY [facility] Number: Effective Repository Date:2017-09-29 08/13/2017 ANGELES S Primary Insurance:MMO ANGELES Rock [employer] HARRYDOB: [employer] H[facility]DOB[facility] Number: [id number] [address]ository [address] [place] [id number] Date: [address]Lcf: ()
== END ==
PROVIDERS: Family Provider Family Medicine Geriatric Medicine; PCP Family Medicine Geriatric Medicine; Referring Provider Family Medicine Geriatric Medicine; Visit Provider Family Medicine Geriatric Medicine
DX: R10.9 Unspecified abdominal pain (principal)
CPT/HCPCS: 78227; A9537

== ENCOUNTER → 2018-07-28 15:09 | Outpatient (CLI) | payer OTHER, SELFPAY ==
[2018-07-07 12:52] VITALS: BMI 45.1
[2018-07-28 18:29] LABS: M R Staph aureus DNA By PCR Negative (Negative); Probe Check PASS; Specimen Processing Control PASS; Staph aureus DNA By PCR NEGATIVE (Negative)
== END ==
PROVIDERS: Family Provider Family Medicine Geriatric Medicine; PCP Family Medicine Geriatric Medicine; Visit Provider Family Medicine Geriatric Medicine
DX: S41.009A Unspecified open wound of unspecified shoulder, initial encounter (principal)
CPT/HCPCS: 87070; 87205; 87640

== ENCOUNTER → 2019-02-08 | Outpatient (CLI) | payer OTHER, SELFPAY ==
[2018-09-30 13:12] VITALS: BMI 44.2
--- NOTE | 2019-02-08 12:02 | BI_ITS ---
MAMMOGRAPHY - BILATERAL SCREENING REASON FOR EXAM: Female, 58 years old. Routine annual screening examination. PERTINENT HISTORY: Non-contributory. TECHNIQUE: Digital bilateral breast jessica (3D mammographic acquisition) in the CC and MLO projections. 2-D mediolateral oblique (MLO) and craniocaudad (CC) views of both breasts were obtained. CAD: Full Field Digital Mammography with Computer Added Detection was performed. COMPARISON: Comparison is made with prior study dated February 05, 2018 and July 31, 2016. FINDINGS: Breast Composition: There are scattered areas of fibroglandular density. There are no dominant masses or suspicious calcifications. Stable small bilateral axillary lymph nodes. No other significant abnormalities are identified. There has been no significant change since the prior study. BI/SCREEN MAMM (CAD) W/JESSICA BILAT IMPRESSION: Stable bilateral screening mammogram. Yearly follow-up mammogram recommended. (A) ASSESSMENT CATEGORY: BIRADS Category 2: Benign. A letter regarding these results will be sent to the patient by the facility within 30 days. Approximately 10% of breast cancers are not detected by mammography. A normal mammogram should not delay biopsy of a clinically suspicious abnormality. [id number] Electronically Signed: Gamaliel Serrano, at 13:15 EDT , Service support ,
--- NOTE | 2019-02-08 13:34 | CT_ITS ---
STUDY: LOW DOSE CT LUNG CANCER SCREENING REASON FOR EXAM: Female, 58 years old. Long-term cigar smoker. RADIATION DOSAGE (If Supplied By Facility): CTDIvol = ( 4.02 ) mGy, DLP = ( 162.05 ) mGycm TECHNIQUE: No contrast was administered. Low dose technique was utilized (average mAS-38 and kVp 120). 1.25 mm axial source images with a slice interval of 1.25-mm were reconstructed in lung windows. 2.5 mm axial source images with a slice interval of 2.5-mm were reconstructed in lung windows. 5.0 mm axial source images with a slice interval of 5.0-mm were reconstructed in soft tissue windows. Nodule measured using lung windows on PACS and/or independent workstation with automated measurement of minimum and maximum diameter. Nodule measurement reported as average diameter rounded to the nearest whole number. Growth is defined as an increase ins size of greater than 1.5 mm. COMPARISON: Comparison is made with prior study dated February 05, 2018. NODULES: No suspicious nodules are seen. Emphysema: Mild emphysematous changes in the upper lobes. Stable increased markings in the right middle lobe suggestive of scarring. Aorta: Atherosclerotic calcified plaques at the level of the aortic arch. Coronary artery calcification. Mediastinal nodes: Small benign-appearing mediastinal lymph nodes. Other chest and abdominal findings: CT/Low Dose CT Lung Screening IMPRESSION: Lung-RADS category 2 - Continue annual screening with LDCT in 12 months. IMPORTANT NOTES FOR USE: ACR Lung-RADS Version 1.0 Assessment Categories Release Date: December 19, 2013 Category: Coded 0-4 bases on nodule(s) with highest degree of suspicion. Negative screen is defined as categories 1 and 2; a positive screen is defined as categories 3 and 4. Category 3 and 4A nodules that are unchanged on interval CT should be coded as category 2, and individuals returned to screening in 12 months. Category 4X: Category 3 or 4 nodules with additional imaging findings that increase the suspicion of lung cancer, such as spiculation, GGN that doubles in size in 1 year, enlarged lymph notes, etc. Category Modifiers: S (significant finding unrelated to lung cancer) and C (prior history of treated lung cancer) may be added to the 0-4 Lung-RADS Electronically Signed: Gamaliel Serrano, at 14:21 EDT , Service support ,
== END | disposition home or self-care (01) ==
PROVIDERS: Family Provider Family Medicine Geriatric Medicine; PCP Family Medicine Geriatric Medicine; Referring Provider Internal Medicine Hematology & Oncology; Visit Provider Internal Medicine Hematology & Oncology
DX: F17.209 Nicotine dependence, unspecified, with unspecified nicotine-induced disorders (principal); Z12.2 Encounter for screening for malignant neoplasm of respiratory organs; Z12.31 Encounter for screening mammogram for malignant neoplasm of breast
CPT/HCPCS: 77063; 77067; G0297

== ENCOUNTER → 2019-02-11 | Outpatient (CLI) | payer OTHER, SELFPAY ==
[2019-02-10 09:44] VITALS: BMI 42.9
[2019-02-11 13:04] LABS: Absolute Lymphocyte Count 1.65 X10^3/ul (0.83-4.51); Absolute Neutrophil Count 3.1 X10^3/uL (2.0-7.7); Basophil# 0.03 X10^3/uL; Basophil% 0.5 % (0-1); Eosinophil# 0.13 X10^3/uL; Eosinophils% 2.3 % (0-5); Hematocrit 38.8 % (37-47); Hemoglobin 12.2 g/dl (12.0-15.0); Lymphocyte # 1.65 X10^3/ul (4.0); Lymphocyte % 29.3 % (19-41); Mean Corp Hgb Conc 31.4 g/gl (32-36); Mean Corpuscular Hgb 31.9 pg (27.0-32.0); Mean Corpuscular Volume 101.3 fL (81-99); Mean Platelet Vol. 10.8 fl (6.2-12.0); Monocyte# 0.75 X10^3/uL; Monocyte% 13.3 % (0-10); Neutrophil # 3.05 X10^3/uL (2.7-7.7); Neutrophil % 54.2 % (47-70); Platelet Count 271 K/mm3 (150-450); RBC Distribution Width CV 13.1 % (11.6-14.6); RBC Distribution Width SD 47.9 fl (35.1-43.9); Red Blood Count 3.83 M/mm3 (4.2-5.4); White Blood Count 5.6 K/mm3 (4.4-11.0)
[2019-02-11 13:06] LABS: POSITIVE COUNT NO; POSITIVE DIFFERENTIAL NO; POSITIVE MORPHOLOGY NO
[2019-02-11 13:25] LABS: AST(SGOT) 11 U/L (15-37); Alanine Aminotransfer ALT/SGPT 17 U/L (13-56); Albumin, Serum 3.5 g/dL (3.2-5.0); Alkaline Phosphatase 122 U/L (45-117); Anion Gap 7 (5-15); BUN 15 mg/dL (7-18); BUN/Creat Ratio 20.3 RATIO (10-20); Calcium,Total 8.8 mg/dL (8.5-10.1); Chloride 108 mmol/L (98-107); Creatinine, Serum 0.74 mg/dL (0.55-1.02); EST Glomerular Filtration Rate 85 mL/min (>60); Est Glom Filt Rate - Afr Amer 103 mL/min (>60); Globulin 3.5 g/dL (2.2-4.2); Glucose 124 mg/dL (74-106); Sodium Level 142 mmol/L (136-145); Thyroid Stim Hormone (TSH) 1.37 uIU/mL (0.358-3.74)
== END | disposition home or self-care (01) ==
LOC: POLAB3 10:24
PROVIDERS: PCP Family Medicine Geriatric Medicine; Visit Provider Family Medicine Geriatric Medicine
DX: I10 Essential (primary) hypertension (principal)
CPT/HCPCS: 36415; 80053; 84443; 85025

== ENCOUNTER → 2019-07-06 | Outpatient (CLI) | payer OTHER, SELFPAY ==
[2019-05-24 13:37] VITALS: BMI 40.8
[2019-07-06 12:09] LABS: Absolute Lymphocyte Count 2.29 X10^3/uL (0.83-4.51); Absolute Neutrophil Count 3.7 X10^3/uL (2.0-7.7); Basophil# 0.06 X10^3/uL; Basophil% 0.9 % (0-1); Eosinophil# 0.14 X10^3/uL; Hematocrit 42.1 % (37-47); Hemoglobin 13.5 g/dL (12.0-15.0); Lymphocyte # 2.29 X10^3/ul (4.0); Lymphocyte % 33.2 % (19-41); Mean Corp Hgb Conc 32.1 g/dL (32-36); Mean Corpuscular Volume 102.9 fL (81-99); Mean Platelet Vol. 10.5 fl (6.2-12.0); Monocyte# 0.74 X10^3/uL; Monocyte% 10.7 % (0-10); NRBC Flagged by Analyzer 0 % (0-5); Neutrophil # 3.65 X10^3/uL (2.7-7.7); Neutrophil % 52.9 % (47-70); Platelet Count 248 K/mm3 (150-450); RBC Distribution Width CV 12.7 % (11.6-14.6); RBC Distribution Width SD 47.9 fl (35.1-43.9); Red Blood Count 4.09 M/mm3 (4.2-5.4); White Blood Count 6.9 K/mm3 (4.4-11.0)
[2019-07-06 13:06] LABS: AST(SGOT) 14 U/L (15-37); Alanine Aminotransfer ALT/SGPT 16 U/L (13-56); Albumin, Serum 3.7 g/dL (3.2-5.0); Alkaline Phosphatase 123 U/L (45-117); Anion Gap 7 (5-15); BUN 13 mg/dL (7-18); BUN/Creat Ratio 16.3 RATIO (10-20); Calcium,Total 9.1 mg/dL (8.5-10.1); Chloride 106 mmol/L (98-107); EST Glomerular Filtration Rate 78 mL/min (>60); Est Glom Filt Rate - Afr Amer 94 mL/min (>60); Globulin 3.6 g/dL (2.2-4.2); Glucose 134 mg/dL (74-106); Protein, Total 7.3 g/dL (6.4-8.2); Sodium Level 138 mmol/L (136-145); Thyroid Stim Hormone (TSH) 2.18 uIU/mL (0.358-3.74)
[2019-07-06 13:43] LABS: Vitamin D,25 Hydroxy 35.1 ng/mL (29.95-100.01)
== END | disposition home or self-care (01) ==
LOC: POLAB3 11:25
PROVIDERS: Family Provider Family Medicine Geriatric Medicine; PCP Family Medicine Geriatric Medicine; Visit Provider Family Medicine Geriatric Medicine
DX: E55.9 Vitamin D deficiency, unspecified (principal); I10 Essential (primary) hypertension
CPT/HCPCS: 36415; 80053; 82306; 84443; 85025

== ENCOUNTER → 2019-12-08 12:20 | Outpatient (CLI) | payer OTHER, SELFPAY ==
[2019-11-29 13:03] VITALS: BMI 41.9
--- NOTE | 2019-12-08 12:30 | RAD_ITS ---
STUDY: X-RAY - LEFT ELBOW REASON FOR EXAM: Female, 59 years old. PAIN X8 MONTHS, NKI TECHNIQUE: 3 view(s) of the elbow. COMPARISON: None. FINDINGS: Normal visualized humerus, radius and ulna. Normal radiocapitellar and ulnotrochlear articulations. There is markedly decreased in size of the previously described cluster of soft tissue calcifications in the subcutaneous soft tissue of the elbow posteriorly likely to represent dystrophic calcifications versus tumoral calcinosis. RAD/Elbow min 3 Views IMPRESSION: There is markedly decreased in size of the previously described cluster of soft tissue calcifications in the subcutaneous soft tissue of the elbow posteriorly likely to represent dystrophic calcifications versus tumoral calcinosis. Electronically Signed: Bryce Montoya, at 14:10 EDT Tel , Service support ,
== END ==
PROVIDERS: PCP Family Medicine Geriatric Medicine; Referring Provider Family Medicine Geriatric Medicine; Visit Provider Family Medicine Geriatric Medicine
DX: M79.609 Pain in unspecified limb (principal)
CPT/HCPCS: 73080

== ENCOUNTER → 2020-01-03 09:23 | Outpatient (CLI) | payer OTHER, SELFPAY ==
[2020-01-03 09:13] VITALS: BMI 41.9
--- NOTE | 2020-01-03 09:24 | RAD_ITS ---
STUDY: X-RAY - CERVICAL SPINE REASON FOR EXAM: Female, 59 years old. NECK PAIN AND NUMBNESS, NO TRAUMA TECHNIQUE: 5 view(s) of the cervical spine were obtained. COMPARISON: None FINDINGS: Normal anterior atlantoaxial articulation. Normal odontoid process. No fracture or subluxation. Normal cervical lordosis. Normal vertebral bodies and endplates. Normal disc space heights. There is moderate left C5-C6 neural foraminal narrowing. There is a small anterior osteophyte at C5-C6. There are surgical clips in the left neck. There is dense atherosclerotic disease in the right neck in the expected region of the right carotid artery/carotid bulb. RAD/Cerv Spine 4 or 5 Views IMPRESSION: No fracture or subluxation. Mild degenerative changes are most prominent at C5-C6. Electronically Signed: Vicki Hernandez, at 13:15 EDT Tel , Service support ,
== END ==
LOC: HPRAD 09:24
PROVIDERS: PCP Family Medicine Geriatric Medicine; Referring Provider Orthopaedic Surgery; Visit Provider Orthopaedic Surgery
DX: M79.602 Pain in left arm (principal)
CPT/HCPCS: 72050

== ENCOUNTER → 2020-01-12 08:50 | Outpatient (CLI) | payer OTHER, SELFPAY ==
[2020-01-03 09:13] VITALS: BMI 41.9
--- NOTE | 2020-01-12 08:53 | US_ITS ---
HISTORY: LT UPPER ARM PAIN - distal and lateral , WITH swelling/ LUMP ADDITIONAL HISTORY: None provided. COMPARISON: None. TECHNIQUE: High-resolution grayscale and color Doppler sonography of the region of clinical concern in the left upper arm. Number of images including paperwork: 33 FINDINGS: No sonographic abnormality is seen in region of clinical concern. Limited images of the contralateral side for comparison appear similar. US/Ext Non Vasc Limited/Soft Tiss IMPRESSION: No sonographic abnormality is seen in region of clinical concern. at 0553 Reported and signed by: America Silva MD Electronically Signed: America Silva MD at 5:53 EDT Tel , Service support ,
== END ==
LOC: US 08:51
PROVIDERS: PCP Family Medicine Geriatric Medicine; Referring Provider Orthopaedic Surgery; Visit Provider Orthopaedic Surgery
DX: M79.602 Pain in left arm (principal); R22.32 Localized swelling, mass and lump, left upper limb
CPT/HCPCS: 76882

== ENCOUNTER → 2020-03-07 10:42 | Outpatient (CLI) | payer OTHER, SELFPAY ==
[2019-11-29 13:03] VITALS: BMI 41.9
[2020-02-14 10:16] VITALS: BMI 40.8
--- NOTE | 2020-03-07 12:49 | NEURO_ITS ---
NCS and/or EMG Patient Report Ordering Doctor: Martin Gutierrez Chi DATE OF SERVICE: 03/07/20 Angeles Larios presents for electrodiagnostic testing of the upper limbs. She has complaints of pain and numbness in both hands. Electrodiagnostic Findings: Normal median motor response bilaterally. There is slowing of ulnar conduction across the left elbow. Normal median and ulnar F- waves. Sensory responses are normal. Needle EMG testing reveals no evidence of denervation with normal motor unit action potentials. Electrodiagnostic Assessment: This is an abnormal study. 1. Electrodiagnostic evidence suggests ulnar neuropathy, consistent with a mild to moderate left cubital tunnel syndrome. 2. There is no electrodiagnostic evidence for median neuropathy, i.e. carpal tunnel syndrome. 3. No electrodiagnostic evidence is noted for cervical radiculopathy.
== END ==
LOC: PSN 10:43
PROVIDERS: PCP Family Medicine Geriatric Medicine; Referring Provider Family Medicine Geriatric Medicine; Visit Provider Family Medicine Geriatric Medicine
DX: R20.9 Unspecified disturbances of skin sensation (principal)
CPT/HCPCS: 95886; 95912

== ENCOUNTER → 2020-04-03 12:34 | Outpatient (CLI) | payer OTHER, SELFPAY ==
[2020-02-14 10:16] VITALS: BMI 40.8
[2020-04-03 12:07] VITALS: BMI 41.9
--- NOTE | 2020-04-03 12:44 | CT_ITS ---
STUDY: LOW DOSE CT LUNG CANCER SCREENING REASON FOR EXAM: Female, 59 years old. CURRENT SMOKER, 1 PPD X 40 YRS, HEART STENTS, HTN, IK=736 RADIATION DOSAGE (If Supplied By Facility): CTDIvol = ( 4.02 ) mGy, DLP = ( 136.92 ) mGycm TECHNIQUE: No contrast was administered. Low dose technique was utilized (average mAS-38 and kVp 120). 1.25 mm axial source images with a slice interval of 1.25-mm were reconstructed in lung windows. 2.5 mm axial source images with a slice interval of 2.5-mm were reconstructed in lung windows. 5.0 mm axial source images with a slice interval of 5.0-mm were reconstructed in soft tissue windows. Nodule measured using lung windows on PACS and/or independent workstation with automated measurement of minimum and maximum diameter. Nodule measurement reported as average diameter rounded to the nearest whole number. Growth is defined as an increase ins size of greater than 1.5 mm. COMPARISON: Comparison is made with prior study dated 02/08/2019. NODULES: No suspicious nodules are seen. Emphysema: Mild emphysematous changes in the upper lobes. Stable increased linear markings in the inner aspect of the right middle lobe suggestive of scarring. Endobronchial lesion: None Aorta: Calcific plaques at the level of the aortic arch. Coronary arteries: Coronary artery calcification. Heart: Unremarkable. Mediastinal nodes: Small benign-appearing mediastinal lymph nodes. Other chest and abdominal findings: CT/Low Dose CT Lung Screening IMPRESSION: Lung-RADS category 2 - Continue annual screening with LDCT in 12 months. IMPORTANT NOTES FOR USE: ACR Lung-RADS Version 1.0 Assessment Categories Release Date: December 19, 2013 Category: Coded 0-4 bases on nodule(s) with highest degree of suspicion. Negative screen is defined as categories 1 and 2; a positive screen is defined as categories 3 and 4. Category 3 and 4A nodules that are unchanged on interval CT should be coded as category 2, and individuals returned to screening in 12 months. Category 4X: Category 3 or 4 nodules with additional imaging findings that increase the suspicion of lung cancer, such as spiculation, GGN that doubles in size in 1 year, enlarged lymph notes, etc. Category Modifiers: S (significant finding unrelated to lung cancer) and C (prior history of treated lung cancer) may be added to the 0-4 Lung-RADS Electronically Signed: Gamaliel Serrano, at 13:18 EDT , Service support ,
== END ==
PROVIDERS: PCP Family Medicine Geriatric Medicine; Referring Provider Nurse Practitioner Family; Visit Provider Nurse Practitioner Family
DX: Z12.2 Encounter for screening for malignant neoplasm of respiratory organs (principal); F17.209 Nicotine dependence, unspecified, with unspecified nicotine-induced disorders
CPT/HCPCS: G0297

== ENCOUNTER → 2020-10-11 14:30 | Outpatient (CLI) | payer OTHER, SELFPAY ==
[2020-04-03 12:07] VITALS: BMI 41.9
== END ==
PROVIDERS: PCP Family Medicine Geriatric Medicine; Referring Provider Family Medicine Geriatric Medicine; Visit Provider Family Medicine Geriatric Medicine
DX: R68.83 Chills (without fever) (principal)
CPT/HCPCS: 87633; 87635; C9803; U0005; U0003

== ENCOUNTER → 2020-11-26 11:03 | Outpatient (CLI) | payer OTHER, SELFPAY ==
[2020-04-03 12:07] VITALS: BMI 41.9
--- NOTE | 2020-11-26 11:08 | RAD_ITS ---
STUDY: X-RAY - LUMBAR SPINE REASON FOR EXAM: Female, 60 years old. Sciatica, unspecified side TECHNIQUE: 3 view(s) of the lumbar spine were obtained. COMPARISON: None FINDINGS: Normal lumbar lordosis. There is no substantial scoliosis. There is a normal alignment of the vertebrae. There is multilevel endplate spondylosis of the lumbar vertebrae. Decreased disc space of the lower thoracic region is noted. Multilevel facet arthropathy is present predominantly at L5/S1. Diffuse demineralization is noted. The soft tissue structures are unremarkable. RAD/Lumbar Spine 2 or 3 Views IMPRESSION: Degenerative changes above with diffuse demineralization with predominant facet arthropathy at L5/S1. Electronically Signed: Arnoldo Lemus DO at 7:48 EDT , Service support ,
--- NOTE | 2020-11-26 11:10 | RAD_ITS ---
STUDY: X-RAY - ABDOMEN/PELVIS REASON FOR EXAM: Female, 60 years old. DIARRHEA TECHNIQUE: Two AP supine views of the abdomen and pelvis. COMPARISON: None. FINDINGS: Normal visualized lung bases. There is an unremarkable bowel gas pattern. There is no demonstrated free abdominal air. The visualized liver, spleen and kidneys are grossly normal in size and morphology. Normal soft tissue structures. Normal visualized osseous structures. RAD/Abdomen Single View IMPRESSION: No evidence of acute abdominal process. Electronically Signed: Arnoldo Lemus DO at 7:47 EDT , Service support ,
[2020-11-26 12:19] LABS: Absolute Lymphocyte Count 1.61 X10^3/uL (0.83-4.51); Absolute Neutrophil Count 3.8 X10^3/uL (2.0-7.7); Basophil# 0.06 X10^3/uL; Basophil% 0.9 % (0-1); Eosinophil# 0.17 X10^3/uL; Eosinophils% 2.6 % (0-5); Hemoglobin 12.2 g/dL (12.0-15.0); Lymphocyte # 1.61 X10^3/ul (4.0); Mean Corp Hgb Conc 31.3 g/dL (32-36); Mean Corpuscular Hgb 34.6 pg (27.0-32.0); Mean Corpuscular Volume 110.5 fL (81-99); Mean Platelet Vol. 10.5 fl (6.2-12.0); Monocyte# 0.74 X10^3/uL; Monocyte% 11.5 % (0-10); NRBC Flagged by Analyzer 0 % (0-5); Neutrophil # 3.84 X10^3/uL (2.7-7.7); Neutrophil % 59.5 % (47-70); Platelet Count 235 K/mm3 (150-450); RBC Distribution Width CV 13.4 % (11.6-14.6); RBC Distribution Width SD 53.3 fl (35.1-43.9); Red Blood Count 3.53 M/mm3 (4.2-5.4); White Blood Count 6.5 K/mm3 (4.4-11.0)
[2020-11-26 12:40] LABS: AST(SGOT) 14 U/L (15-37); Alanine Aminotransfer ALT/SGPT 20 U/L (13-56); Albumin, Serum 3.4 g/dL (3.2-5.0); Alkaline Phosphatase 107 U/L (45-117); Anion Gap 5 (5-15); BUN 13 mg/dL (7-18); BUN/Creat Ratio 14.1 RATIO (10-20); Calcium,Total 8.8 mg/dL (8.5-10.1); Chloride 109 mmol/L (98-107); Creatinine, Serum 0.92 mg/dL (0.55-1.02); EST Glomerular Filtration Rate 65 mL/min (>60); Est Glom Filt Rate - Afr Amer 79 mL/min (>60); Globulin 3.3 g/dL (2.2-4.2); Glucose 140 mg/dL (74-106); Potassium 3.9 mmol/L (3.5-5.1); Protein, Total 6.7 g/dL (6.4-8.2); Sodium Level 139 mmol/L (136-145); Thyroid Stim Hormone (TSH) 2.69 uIU/mL (0.358-3.74)
== END ==
LOC: RAD 11:06
PROVIDERS: PCP Family Medicine Geriatric Medicine; Referring Provider Family Medicine Geriatric Medicine; Visit Provider Family Medicine Geriatric Medicine
DX: I10 Essential (primary) hypertension (principal); R19.7 Diarrhea, unspecified; M54.30 Sciatica, unspecified side
CPT/HCPCS: 36415; 72100; 74018; 80053; 84443; 85025

== ENCOUNTER → 2021-02-11 10:51 | Outpatient (CLI) | payer OTHER, SELFPAY ==
[2020-11-28 12:59] VITALS: BMI 40.1
[2020-12-06 13:18] VITALS: BMI 40.1
--- NOTE | 2021-02-11 10:53 | BI_ITS ---
MAMMOGRAPHY - BILATERAL SCREENING 3-D TOMOSYNTHESIS REASON FOR EXAM: Female, 60 years old. Annual screening. PERTINENT HISTORY: No significant family history. TECHNIQUE: 2-D mammograms and 3-D Tomosynthesis of the breast (s) were performed. CAD was performed. COMPARISON: 02/08/2019, 02/05/2018. FINDINGS: The breast composition is almost entirely fat. Scattered bilateral benign calcifications are seen. No dense spiculated masses or suspicious microcalcifications are identified. No architectural distortion is identified. There is no skin thickening or retraction. Stable normal lymph nodes. There has been no significant change since the prior study. BI/SCRN MAMM (CAD)W/JESSICA BILAT IMPRESSION: No mammographic signs of malignancy. Routine yearly mammograms recommended. ASSESSMENT CATEGORY: BIRADS Category 2: Benign. A letter regarding these results will be sent to the patient by the facility within 30 days. FOLLOW UP RECOMMENDATION: Yearly follow up mammogram recommended. (A) Approximately 10% of breast cancers are not detected by mammography. A normal mammogram should not delay biopsy of a clinically suspicious abnormality. Electronically Signed: Marshal Rosales MD at 11:04 EDT , Service support ,
== END ==
PROVIDERS: PCP Family Medicine Geriatric Medicine; Referring Provider Internal Medicine Hematology & Oncology; Visit Provider Internal Medicine Hematology & Oncology
DX: Z12.31 Encounter for screening mammogram for malignant neoplasm of breast (principal)
CPT/HCPCS: 77063; 77067

== ENCOUNTER 2021-02-19 22:59 | Emergency (ER) | payer OTHER, SELFPAY ==
[2020-12-06 13:18] VITALS: BMI 40.1
[2021-02-19 23:01] VITALS: BP 148/64; PULSE 94; RESP 16; TEMP 36.2; O2SAT 97; BMI 40.7
--- NOTE | 2021-02-20 00:07 | ED.VIS.BACK ---
HPI History of Present Illness Chief Complaint: Back Narrative Narrative: Patient stated the last couple months she has been having problems with pain in her left buttock consistent with sciatica. She is not seen her family doctor for it. She takes Tylenol intermittently. She also takes full-strength aspirin daily. She stated she noticed some radicular type symptoms radiating down to her thigh down to her foot this evening. Is movement related. This concerned her. She wanted to make sure she did not have a blood clot. No home treatment. Comes in for further evaluation. No history of sciatica in the past. Denies any pain in her upper back [facility] Medical History Atherosclerosis of coronary artery of [place] without angina pectoris Bilateral carotid artery stenosis BLOOD CLOT Chronic GI bleeding CVA (cerebral vascular accident) Diabetes mellitus Diarrhea Dysarthria Dysarthria Encounter for screening for lung cancer Essential (primary) hypertension Expressive language disorder Fibromyalgia Gastrointestinal bleed History of DVT (deep vein thrombosis) Hyperlipidemia IBS (irritable bowel syndrome) Iron deficiency anemia LEFT ARM SURGERY Macrocytosis Nausea & vomiting Nicotine dependence Non-rheumatic aortic stenosis Peripheral vascular disease Pernicious anemia Sleep apnea Home Medications duloxetine 60 mg capsule,delayed release 60 mg PO BID cap 07/27/17 [History Last Taken 01/04/18 09:00 60 mg] nitroglycerin 0.4 mg sublingual tablet 0.4 mg SUBLINGUAL Q5-15M PRN #25 tab 10/14/17 [Rx Last Taken 2 Months Ago ~10/03/17] levothyroxine 25 mcg PO DAILY 11/30/17 [History Last Taken 01/04/18 09:00 25 mcg] clopidogrel 75 mg tablet 75 mg PO QDAY 02/09/18 [History Last Taken Unknown] polysaccharide iron complex 150 mg iron capsule 300 mg PO QDAY cap 04/09/18 [History Last Taken Unknown] rosuvastatin 40 mg tablet 40 mg PO QDAY 04/09/18 [History Last Taken Unknown] famotidine 40 mg tablet 1 tab PO DAILY 01/03/20 [History Last Taken Unknown] trazodone 50 mg tablet 50 mg PO QHS tab 01/03/20 [History Last Taken Unknown] ascorbate calcium (vitamin C) 500 mg tablet 500 mg PO DAILY 02/14/20 [History Last Taken Unknown] aspirin 325 mg tablet 325 mg PO DAILY 02/14/20 [History Last Taken Unknown] vit C,M-Qe-lxmoq-lutein-zeaxan 1 cap PO BID 05/30/20 [History Last Taken Unknown] lisinopril 20 mg tablet 20 mg PO QDAY #90 tab 10/19/20 [Rx Last Taken Unknown] metoprolol tartrate 50 mg tablet 50 mg PO BID #180 tab 10/19/20 [Rx Last Taken Unknown] oxycodone-acetaminophen [Percocet] 1 tab PO Q8H PRN 3 Days #10 tab 02/20/21 [Rx Last Taken Unknown] Allergy/AdvReac Type Severity Reaction Status Date / Time atorvastatin [From Lipitor] AdvReac Severe Other Verified 02/19/21 23:01 codeine AdvReac Severe Other Verified 02/19/21 23:01 Family History Father , at age 38, from [place] Myocardial infarction cardiomopathy Mother Atrial fibrillation Hypertension Hyperlipidemia Diabetes Brother CAD (coronary artery disease) cardiomopathy Myocardial infarction Sister cardiomopathy Surgical History 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) History of cataract removal with insertion of prosthetic lens History of coronary artery stent placement (12/20/08) History of left-sided carotid endarterectomy (01/2019) Hx of appendectomy Hx of bilateral cataract extraction Social History adopted: No Smoking Status: Current some day smoker tobacco type: cigarettes Tobacco: How many years used: 50 Electronic Cigarette Use: not used second hand exposure: Yes quit status: has quit before counseling given: provider counseling alcohol intake: former year quit: 2018 substance use type: does not use caffeine: Yes Type: coffee what type of physical activity do you participate in: none seatbelt use: sometimes do you feel safe at home: Yes ROS ROS ED ROS Narrative ROS General: Denies fever, chills, sweats Eyes: Denies visual changes, blurred vision, double vision ENT: Denies ear pain, rhinorrhea, sore throat Cardiovascular: Denies chest pain, palpitations, heart racing Respiratory: Denies dyspnea, cough, sputum, dyspnea on exertion, orthopnea,PND GI: Denies abdominal pain, nausea, vomiting, diarrhea, constipation, melena : Denies dysuria, hematuria, frequency Musculoskeletal: See HPI Skin: Denies rash, abscess, abrasions Neuro: Denies headache, weakness, see HPI Endo: Denies polyuria, polydipsia, polyphagia Heme: Denies easy bruising, easy bleeding, lymphadenopathy Allergy: Denies hives, swelling EXAM Physical Exam Narrative Exam Narrative: Vital signs reviewed General: Well-nourished well-developed Head: Normocephalic atraumatic Eyes: Pupils equal round and reactive to light extraocular movements intact ENT: TMs clear no hemotympanum no trauma Neck: Nontender full range of motion Cardiovascular: Regular rate rhythm no murmurs normal S1-S2 Respiratory: No distress clear to auscultation bilaterally chest nontender Abdomen: Soft nontender nondistended normal bowel sounds no masses Back: Nontender no CVA tenderness Extremities: Tender to palpation left sciatic notch with decreased range of motion left leg secondary to pain. Normal sensation. Normal temperature. Normal color. Normal pulses. Skin: Normal color no trauma Neuro alert oriented cranial nerves II through XII intact normal strength sensation reflexes Const Vital Signs: 02/19/21 23:01 Temperature 97.2 F L Temperature Source Temporal Pulse Rate 94 Respiratory Rate 16 Blood Pressure 148/64 H Blood Pressure Mean 92 Pulse Ox 97 Oxygen Delivery Method Room Air MDM MDM MDM Narrative Medical decision making narrative: I feel the patient has sciatica-like presentation. Declined IM treatments. Given a dose of oxycodone here. Will be given a short course for home. I do not feel she needs lab work or imaging. I do not think she has a AAA. I do not do not feel she has an emergent cause of her symptoms. We will follow-up with her family doctor. She may need outpatient physical therapy. She will rest and ice as well. Discharge Plan Triage Chief Complaint: Back ED Provider: Anmol Hirsch Dx/Rx/DC Orders Clinical Impression: Sciatica Instructions: ED Sciatica Prescriptions: New oxycodone-acetaminophen [Percocet] 5-325 mg tablet 1 tab PO Q8H PRN (Reason: pain) 3 Days Qty: 10 RF: 0 No Action duloxetine [Cymbalta] 60 mg capsule,delayed release(DR/EC) 60 mg PO BID RF: 0 clopidogrel 75 mg tablet 75 mg PO QDAY RF: 0 nitroglycerin 0.4 mg tablet, sublingual 0.4 mg SUBLINGUAL Q5-15M PRN (Reason: chest pain) Qty: 25 RF: 3 polysaccharide iron complex [Ferrex 150] 150 mg iron capsule 300 mg PO QDAY RF: 0 rosuvastatin 40 mg tablet 40 mg PO QDAY RF: 0 ascorbate calcium (vitamin C) 500 mg tablet 500 mg PO DAILY RF: 0 aspirin 325 mg tablet 325 mg PO DAILY RF: 0 trazodone 50 mg tablet 50 mg PO QHS RF: 0 famotidine 40 mg tablet 1 tab PO DAILY RF: 0 levothyroxine 25 MCG tablet 25 mcg PO DAILY RF: 0 vit C,S-Yr-qrbdt-lutein-zeaxan 1 EACH capsule 1 cap PO BID RF: 0 metoprolol tartrate 50 mg tablet 50 mg PO BID Qty: 180 RF: 3 lisinopril 20 mg tablet 20 mg PO QDAY Qty: 90 RF: 3 Primary Care Provider: Martin Gutierrez Chi Referrals: Martin Gutierrez Chi, MD [Primary Care Provider] - Disposition Disposition: Home, Self Care
[2021-02-20] MEDS: oxyCODONE 5 MG Tablet PO (00:15)
== END 2021-02-20 00:19 | disposition home or self-care (01) ==
LOC: ED 02-20 00:16
PROVIDERS: Emergency Provider Emergency Medicine; PCP Family Medicine Geriatric Medicine
DX: M54.30 Sciatica, unspecified side (principal); F17.210 Nicotine dependence, cigarettes, uncomplicated; I25.10 Atherosclerotic heart disease of native coronary artery without angina pectoris; Z86.718 Personal history of other venous thrombosis and embolism
CPT/HCPCS: 99283

== ENCOUNTER → 2021-03-01 11:51 | Outpatient (CLI) | payer OTHER, SELFPAY ==
[2021-02-19 23:01] VITALS: BMI 40.7
--- NOTE | 2021-03-01 11:56 | RAD_ITS ---
STUDY: X-RAY - ABDOMEN/PELVIS REASON FOR EXAM: Female, 60 years old. ABD PAIN TECHNIQUE: Single AP view of the abdomen / pelvis. COMPARISON: Comparison is made with prior study 11/26/2020. FINDINGS: Normal visualized lung bases. There is an abundance of fecal material throughout the colon. The visualized liver, spleen and kidneys are grossly normal in size and morphology. Normal soft tissue structures. Surgical clips are seen in the epigastric region. RAD/Abdomen Single View IMPRESSION: Large amount of fecal material is seen in the colon. Electronically Signed: Gamaliel Serrano MD at 15:12 EDT , Service support ,
== END ==
LOC: RAD 11:53
PROVIDERS: PCP Family Medicine Geriatric Medicine; Referring Provider Family Medicine Geriatric Medicine; Visit Provider Family Medicine Geriatric Medicine
DX: R10.9 Unspecified abdominal pain (principal)
CPT/HCPCS: 74018

== ENCOUNTER → 2021-03-01 11:53 | Outpatient (CLI) | payer OTHER, SELFPAY ==
[2021-02-19 23:01] VITALS: BMI 40.7
[2021-03-01 13:17] LABS: AST(SGOT) 14 U/L (15-37); Alanine Aminotransfer ALT/SGPT 20 U/L (13-56); Albumin, Serum 3.2 g/dL (3.2-5.0); Alkaline Phosphatase 116 U/L (45-117); Anion Gap 6 (5-15); BUN 11 mg/dL (7-18); BUN/Creat Ratio 18.6 RATIO (10-20); Calcium,Total 8.6 mg/dL (8.5-10.1); Chloride 108 mmol/L (98-107); Creatinine, Serum 0.59 mg/dL (0.55-1.02); EST Glomerular Filtration Rate 109 mL/min (>60); Est Glom Filt Rate - Afr Amer 132 mL/min (>60); Globulin 3.3 g/dL (2.2-4.2); Glucose 125 mg/dL (74-106); Potassium 4.1 mmol/L (3.5-5.1); Protein, Total 6.5 g/dL (6.4-8.2); Sodium Level 141 mmol/L (136-145)
[2021-03-01 13:22] LABS: Absolute Lymphocyte Count 1.84 X10^3/uL (0.83-4.51); Basophil# 0.07 X10^3/uL; Basophil% 0.9 % (0-1); Eosinophil# 0.13 X10^3/uL; Eosinophils% 1.7 % (0-5); Hematocrit 29.4 % (37-47); Hemoglobin 8.4 g/dL (12.0-15.0); Lymphocyte # 1.84 X10^3/ul (0.83-4.51); Lymphocyte % 23.5 % (19-41); Mean Corp Hgb Conc 28.6 g/dL (32-36); Mean Corpuscular Hgb 32.9 pg (27.0-32.0); Mean Corpuscular Volume 115.3 fL (81-99); Mean Platelet Vol. 10.4 fl (6.2-12.0); Monocyte# 0.72 X10^3/uL; Monocyte% 9.2 % (0-10); NRBC Flagged by Analyzer 0 % (0-5); Neutrophil # 5.04 X10^3/uL (2.7-7.7); Neutrophil % 64.2 % (47-70); Platelet Count 377 K/mm3 (150-450); RBC Distribution Width CV 14.5 % (11.6-14.6); RBC Distribution Width SD 60.2 fl (35.1-43.9); Red Blood Count 2.55 M/mm3 (4.2-5.4); White Blood Count 7.8 K/mm3 (4.4-11.0)
== END ==
LOC: POLAB3 11:53
PROVIDERS: PCP Family Medicine Geriatric Medicine; Visit Provider Family Medicine Geriatric Medicine
DX: R11.0 Nausea (principal)
CPT/HCPCS: 36415; 80053; 85025

== ENCOUNTER 2021-03-08 20:52 | Inpatient (IN) | payer OTHER, SELFPAY ==
[2021-03-08 20:52] VITALS: BP 146/74; PULSE 88; RESP 16; TEMP 36.1; O2SAT 97; BMI 35.3
--- NOTE | 2021-03-08 21:09 | EDS_ITS ---
HPI History of Present Illness Chief Complaint: Abn Labs Detail of Chief Complaint: Fatigue with recent recurrent anemia Informant: patient and spouse/S.O. Onset/Context/Timing Onset: Weeks Context: Gradual Onset Timing: Continuous Current Severity: Mild Maximum Severity: Mild Narrative Narrative: 58-year-old female history of anemia with a think is secondary to blood loss but is never found the bleeding. She has had a prior stroke. She has a cardiac stent and is on Plavix and aspirin. Patient states she had a blood work done a week ago her hemoglobin was 8. Which was a drop of about 4 units of blood since her last blood test. She states she always has dark stool because she is on iron. States has been very nauseated but no vomiting. No fever or chills. No dysuria. No excessive bruising. Or nosebleeds. Prior similar symptoms: Yes Recent Illness/Hospitalization: No PFSH PFS Medical History Atherosclerosis of coronary artery of [place] heart without angina pectoris Bilateral carotid artery stenosis BLOOD CLOT Chronic GI bleeding CVA (cerebral vascular accident) Diabetes mellitus Diarrhea Dysarthria Dysarthria Encounter for screening for lung cancer Essential (primary) hypertension Expressive language disorder Fibromyalgia Gastrointestinal bleed History of DVT (deep vein thrombosis) Hyperlipidemia IBS (irritable bowel syndrome) Iron deficiency anemia LEFT ARM SURGERY Macrocytosis Nausea & vomiting Nicotine dependence Non-rheumatic aortic stenosis Peripheral vascular disease Pernicious anemia Sleep apnea Home Medications nitroglycerin 0.4 mg sublingual tablet 0.4 mg SUBLINGUAL Q5-15M PRN #25 tab 10/14/17 [Rx Last Taken 2 Months Ago ~10/03/17] levothyroxine 25 mcg PO DAILY 11/30/17 [History Last Taken 01/04/18 09:00 25 mcg] clopidogrel 75 mg tablet 75 mg PO QDAY 02/09/18 [History Last Taken Unknown] polysaccharide iron complex 150 mg iron capsule 300 mg PO QDAY cap 04/09/18 [History Last Taken Unknown] rosuvastatin 40 mg tablet 40 mg PO QDAY 04/09/18 [History Last Taken Unknown] famotidine 40 mg tablet 1 tab PO DAILY 01/03/20 [History Last Taken Unknown] trazodone 50 mg tablet 50 mg PO QHS tab 01/03/20 [History Last Taken Unknown] aspirin 325 mg tablet 325 mg PO DAILY 02/14/20 [History Last Taken Unknown] lisinopril 20 mg tablet 20 mg PO QDAY #90 tab 10/19/20 [Rx Last Taken Unknown] metoprolol tartrate 50 mg tablet 50 mg PO BID #180 tab 10/19/20 [Rx Last Taken Unknown] venlafaxine 75 mg PO BID 03/08/21 [History Last Taken Unknown] Allergy/AdvReac Type Severity Reaction Status Date / Time atorvastatin [From Lipitor] AdvReac Severe Other Verified 03/08/21 20:55 codeine AdvReac Severe Other Verified 03/08/21 20:55 Family History Father , at age 38, from [place] Myocardial infarction cardiomopathy Mother Atrial fibrillation Hypertension Hyperlipidemia Diabetes Brother CAD (coronary artery disease) cardiomopathy Myocardial infarction Sister cardiomopathy Surgical History 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) History of cataract removal with insertion of prosthetic lens History of coronary artery stent placement (12/20/08) History of left-sided carotid endarterectomy (01/2019) Hx of appendectomy Hx of bilateral cataract extraction Social History adopted: No Smoking Status: Current some day smoker tobacco type: cigarettes Tobacco: How many years used: 50 Electronic Cigarette Use: not used second hand exposure: Yes quit status: has quit before counseling given: provider counseling alcohol intake: former year quit: 2017 substance use type: does not use caffeine: Yes Type: coffee what type of physical activity do you participate in: none seatbelt use: sometimes do you feel safe at home: Yes ROS ROS ED ROS Narrative Denies any recent illness. Been feeling very fatigued. With exertional dyspnea. Review of Systems ROS Unobtainable: Denies due to encephalopathy Constitutional Constitutional ED: Denies chills or fever(s) Eyes Eyes: Denies change in vision ENT ENT ED: Denies ear pain or sore throat Cardiovascular Cardiovascular: Denies chest pain Respiratory/Chest Respiratory/Chest: Reports dyspnea and dyspnea on exertion Gastrointestinal Gastrointestinal: Reports nausea; Denies abdominal pain, diarrhea or vomiting Genitourinary Genitourinary ED: Denies dysuria Musculoskeletal Musculoskeletal: Denies myalgias Integumentary Denies rash Neurologic Neurologic: Denies headache(s) Psychiatric Psychiatric: Denies depression Endocrine Endocrinology: Denies polyuria Allergic/Immunologic Allergic/Immunologic ED: Denies urticaria EXAM Physical Exam Narrative Exam Narrative: 60-year-old female vital signs are stable afebrile. Initial blood pressure 146/74 with a heart rate of 88. She does not look septic or toxic. HEENT exam unremarkable. Neck nontender. Lungs clear to auscultation. Heart regular rhythm. Abdomen soft, nontender nondistended no giving way or masses. Patient moving all 4 extremities. No edema. Normal motor strength. Neurologically she is awake alert with no focal motor deficits. Const Vital Signs: 03/08/21 20:52 03/08/21 21:26 Temperature 97 F L Temperature Source Temporal Pulse Rate 88 Respiratory Rate 16 Respiratory Effort Normal Non-Labored Respiratory Pattern Normal Blood Pressure 146/74 H Blood Pressure Mean 98 Pulse Ox 97 Oxygen Delivery Method Room Air Positive well nourished and well developed General Appearance ED: well developed and pallor HEENT Reports moist mucous membranes Negative for trauma or tenderness Eyes PERRL and EOMs intact bilaterally Neck no lymphadenopathy, supple and no JVD General: Negative for tenderness Chest Wall inspection of chest normal and palpation of chest normal Resp normal respiratory effort and clear to auscultation bilaterally Cardio regular rate and regular rhythm; Negative for no murmurs GI normal to inspection, nondistended, normoactive bowel sounds, non-tender and non-distended Palpation: soft Back/Spine no CVA tenderness Extremity normal to inspection General Extremety ED: Negative for edema or tenderness General Extremity: Negative for edema Neuro oriented x3 and CN's II-XII intact bilaterally Sensorium / Orientation: Negative for lethargic or stuporous Motor Exam: strength 5/5 throughout Psych mental status grossly normal Skin no rashes or lesions noted and no wounds General Skin Exam: pallor MDM MDM MDM Narrative Medical decision making narrative: 60-year-old female complaining of fatigue and recent recurrent anemia. Screening labs to be obtained along with type and cross. If her hemoglobin is lower than her most recent 8 she will need admitted and transfused. She has had upper and lower endoscopy of done several times in the past without any source of bleeding found. Repeat exam patient is resting comfortably at 10:08 PM. Will speak to the hospitalist about admission and transfusion. She is already been typed and crossed. I will write for 1 unit to be transfused. Lab Data Attestation: I reviewed the patient's lab results. Lab results narrative: White count 8. Hemoglobin 7.5 which is down from the prior which was significantly down from the 1 before that where she was over 12. Electrolytes unremarkable gap is 7 normal creatinine. Labs: Laboratory Results - last 24 hr 03/08/21 03/08/21 03/08/21 21:15 21:15 21:15 WBC 8.4 RBC 2.23 L Hgb 7.5 L Hct 26.1 L MCV 117.0 H MCH 33.6 H MCHC 28.7 L RDW Std Deviation 65.1 H RDW Coeff of [place]ao 15.5 H Plt Count 344 MPV 9.7 Immature Gran % (Auto) 0.600 Neut % (Auto) 62.4 Lymph % (Auto) 24.9 [place] % (Auto) 10.2 H Eos % (Auto) 1.2 Baso % (Auto) 0.7 Absolute Neuts (auto) 5.3 Absolute Lymphs (auto) 2.09 Nucleated RBC % 0 Sodium 141 Potassium 3.9 Chloride 108 H Carbon Dioxide 26.0 Anion Gap 7 BUN 13 Creatinine 0.63 Estim Creat Clear Calc 86.68 Est GFR (MDRD) Af Amer 122 Est GFR (MDRD) Non-Af 101 BUN/Creatinine Ratio 20.5 H Glucose 113 H Calcium 8.6 Crossmatch See Detail Discharge Plan Triage Chief Complaint: Abn Labs ED Provider: Alan Babcock Dx/Rx/DC Orders Clinical Impression: Chronic GI bleeding, Anemia Prescriptions: No Action clopidogrel 75 mg tablet 75 mg PO QDAY RF: 0 nitroglycerin 0.4 mg tablet, sublingual 0.4 mg SUBLINGUAL Q5-15M PRN (Reason: chest pain) Qty: 25 RF: 3 polysaccharide iron complex [Ferrex 150] 150 mg iron capsule 300 mg PO QDAY RF: 0 rosuvastatin 40 mg tablet 40 mg PO QDAY RF: 0 aspirin 325 mg tablet 325 mg PO DAILY RF: 0 trazodone 50 mg tablet 50 mg PO QHS RF: 0 famotidine 40 mg tablet 1 tab PO DAILY RF: 0 levothyroxine 25 MCG tablet 25 mcg PO DAILY RF: 0 venlafaxine 75 mg tablet 75 mg PO BID RF: 0 metoprolol tartrate 50 mg tablet 50 mg PO BID Qty: 180 RF: 3 lisinopril 20 mg tablet 20 mg PO QDAY Qty: 90 RF: 3 Primary Care Provider: Martin Gutierrez Chi Referrals: Martin Gutierrez Chi, MD [Primary Care Provider] - Disposition Disposition: Acute Care Hospital [facility]
[2021-03-08 21:31] LABS: Absolute Lymphocyte Count 2.09 X10^3/uL (0.83-4.51); Absolute Neutrophil Count 5.3 X10^3/uL (2.0-7.7); Basophil# 0.06 X10^3/uL; Basophil% 0.7 % (0-1); Eosinophils% 1.2 % (0-5); Hematocrit 26.1 % (37-47); Hemoglobin 7.5 g/dL (12.0-15.0); Lymphocyte # 2.09 X10^3/ul (0.83-4.51); Lymphocyte % 24.9 % (19-41); Mean Corp Hgb Conc 28.7 g/dL (32-36); Mean Corpuscular Hgb 33.6 pg (27.0-32.0); Mean Platelet Vol. 9.7 fl (6.2-12.0); Monocyte# 0.86 X10^3/uL; Monocyte% 10.2 % (0-10); NRBC Flagged by Analyzer 0 % (0-5); Neutrophil # 5.25 X10^3/uL (2.7-7.7); Neutrophil % 62.4 % (47-70); POSITIVE MORPHOLOGY YES; Platelet Count 344 K/mm3 (150-450); RBC Distribution Width CV 15.5 % (11.6-14.6); RBC Distribution Width SD 65.1 fl (35.1-43.9); Red Blood Count 2.23 M/mm3 (4.2-5.4); White Blood Count 8.4 K/mm3 (4.4-11.0)
[2021-03-08 21:44] LABS: Anion Gap 7 (5-15); BUN 13 mg/dL (7-18); BUN/Creat Ratio 20.5 RATIO (10-20); Calcium,Total 8.6 mg/dL (8.5-10.1); Chloride 108 mmol/L (98-107); Creatinine, Serum 0.63 mg/dL (0.55-1.02); EST Glomerular Filtration Rate 101 mL/min (>60); Est Glom Filt Rate - Afr Amer 122 mL/min (>60); Estimated Creatinine Clearance 86.68 ml/min; Glucose 113 mg/dL (74-106); Potassium 3.9 mmol/L (3.5-5.1); Sodium Level 141 mmol/L (136-145)
[2021-03-08 21:48] LABS: Differential Indicated SCAN CRITERIA MET
[2021-03-08 22:28] LABS: Anisocytosis 1+; Differential Comment SCANNED
[2021-03-08 22:52] VITALS: BP 122/53; PULSE 69; RESP 14; O2SAT 97
--- NOTE | 2021-03-08 23:03 | HP.PCM.HOS_ITS ---
HPI - General HPI Narrative STELLA STANTON, is a 60 F with an extensive PMh as outlined who presents via the Ed on 03/08/2021 with a complaint of generalised weakness which had progressively been worsening over the last month. Patient has a history of chronic anemia for which she has undergone extensive workup including EGD and colonoscopy, which were all negative for the acute source of bleeding. She has been following up with hematology and is on oral iron. She says she started feeling weak ~ 1 month ago, which has gradually worsened. She also had some epigastric pain, but that has improved. She is on aspirin and plavix and also takes ibuprofen occasionally. She denied any coffee ground emesis, any fever or chills, chest pain, palpitations, dizziness, nausea or vomiting. Review of systems is otherwise negative. She does admit to dark stools which she says isnt new, and is due to her oral iron supplementation. Her Hb in November 2020 was 12.2, and was 8.4 ion 03/01/2021/ Hb checked today is 7.5. Vitals were unremarkable and CBC was otherwise unremarkable as well,with wbc of 8.4, platelets of 344 and BMp was also WNL. She is being admitted to be managed for acute on chronic anemia of unclear etiology, likely GI bleed. [facility]LY [facility] Medical History Atherosclerosis of coronary artery of [place] heart without angina pectoris Bilateral carotid artery stenosis BLOOD CLOT Chronic GI bleeding CVA (cerebral vascular accident) Diabetes mellitus Diarrhea Dysarthria Dysarthria Encounter for screening for lung cancer Essential (primary) hypertension Expressive language disorder Fibromyalgia Gastrointestinal bleed History of DVT (deep vein thrombosis) Hyperlipidemia IBS (irritable bowel syndrome) Iron deficiency anemia LEFT ARM SURGERY Macrocytosis Nausea & vomiting Nicotine dependence Non-rheumatic aortic stenosis Peripheral vascular disease Pernicious anemia Sleep apnea Home Medications nitroglycerin 0.4 mg sublingual tablet 0.4 mg SUBLINGUAL Q5-15M PRN #25 tab 10/14/17 [Rx Last Taken 2 Months Ago ~10/03/17] levothyroxine 25 mcg PO DAILY 11/30/17 [History Last Taken 01/04/18 09:00 25 mcg] clopidogrel 75 mg tablet 75 mg PO QDAY 02/09/18 [History Last Taken Unknown] polysaccharide iron complex 150 mg iron capsule 300 mg PO QDAY cap 04/09/18 [History Last Taken Unknown] rosuvastatin 40 mg tablet 40 mg PO QDAY 04/09/18 [History Last Taken Unknown] famotidine 40 mg tablet 1 tab PO DAILY 01/03/20 [History Last Taken Unknown] trazodone 50 mg tablet 50 mg PO QHS tab 01/03/20 [History Last Taken Unknown] aspirin 325 mg tablet 325 mg PO DAILY 02/14/20 [History Last Taken Unknown] lisinopril 20 mg tablet 20 mg PO QDAY #90 tab 10/19/20 [Rx Last Taken Unknown] metoprolol tartrate 50 mg tablet 50 mg PO BID #180 tab 10/19/20 [Rx Last Taken Unknown] venlafaxine 75 mg PO BID 03/08/21 [History Last Taken Unknown] Allergy/AdvReac Type Severity Reaction Status Date / Time atorvastatin [From Lipitor] AdvReac Severe Other Verified 03/08/21 20:55 codeine AdvReac Severe Other Verified 03/08/21 20:55 Family History Father , at age 38, from [place] Myocardial infarction cardiomopathy Mother Atrial fibrillation Hypertension Hyperlipidemia Diabetes Brother CAD (coronary artery disease) cardiomopathy Myocardial infarction Sister cardiomopathy Surgical History 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) History of cataract removal with insertion of prosthetic lens History of coronary artery stent placement (12/20/08) History of left-sided carotid endarterectomy (01/2019) Hx of appendectomy Hx of bilateral cataract extraction Social History adopted: No Smoking Status: Current some day smoker tobacco type: cigarettes Tobacco: How many years used: 50 Electronic Cigarette Use: not used second hand exposure: Yes quit status: has quit before counseling given: provider counseling alcohol intake: former year quit: 2017 substance use type: does not use caffeine: Yes Type: coffee what type of physical activity do you participate in: none seatbelt use: sometimes do you feel safe at home: Yes ROS Review of Systems ROS Unobtainable: Denies due to encephalopathy Constitutional Constitutional: Reports fatigue, malaise and weakness; Denies anorexia, change in weight, chills or fever(s) Eyes Eyes: Denies double vision ENT HEENT: Denies dysphagia, headache(s) or hearing loss Cardiovascular Cardiovascular: Denies chest pain, dyspnea on exertion, edema, lightheadedness, orthopnea, palpitations, paroxysmal nocturnal dyspnea or rapid heart rate Respiratory/Chest Respiratory/Chest: Denies cough, dyspnea or shortness of breath at rest Gastrointestinal Gastrointestinal: Reports melena; Denies abdominal pain, coffee ground emesis, constipation, diarrhea, dyspepsia, hematemesis, hematochezia, loose stools, na usea or vomiting Genitourinary Genitourinary: Denies burning urination, dysuria or urinary frequency Musculoskeletal Musculoskeletal: Denies arthralgias, back pain or joint swelling Neurologic Neurologic: Denies confusion, dizziness, focal weakness or numbness Psychiatric Psychiatric: Denies anxiety or depression Endocrine Endocrinology: Denies change in body appearance or heat intolerance Hematologic/Lymphatic Hematologic/Lymphatic: Denies anemia Allergic/Immunologic Allergic/Immunologic: Reports eczemia; Denies asthma Vital Signs Vital Signs Vital Signs: 03/08/21 20:52 03/08/21 21:26 03/08/21 22:52 Temperature 97 F L Temperature Source Temporal Pulse Rate 88 69 Respiratory Rate 16 14 Respiratory Effort Normal Non-Labored Respiratory Pattern Normal Blood Pressure 146/74 H 122/53 H Blood Pressure Mean 98 76 Pulse Ox 97 97 Oxygen Delivery Method Room Air Room Air Weight Weight: 219 lb Body Mass Index (BMI) 35.3 Physical Exam Const alert, oriented x3 and no apparent distress General Appearance: cooperative HEENT normocephalic, head/scalp atraumatic, hearing grossly normal bilaterally and moist oral mucous membranes Eyes PERRL, EOMs intact bilaterally and conjunctivae normal Neck no lymphadenopathy, supple and no JVD Resp normal respiratory effort, no retractions, no use of accessory muscles and clear to auscultation bilaterally Cardio regular rate, regular rhythm, S1 normal heart sound, S2 normal heart sound and no murmurs GI normal to inspection, nondistended, normoactive bowel sounds, soft to palpation, non-tender and non-distended Extremity normal to inspection, full ROM and no clubbing, cyanosis or edema Peripheral Pulses: Yes pulses 2+ throughout Skin no rashes or lesions noted Neuro oriented x3 Sensorium / Orientation: awake and alert Psych affect normal Results Lab / Micro Data Result Diagrams: 03/08/21 21:15 03/08/21 21:15 Labs: Laboratory Results - last 24 hr 03/08/21 21:15: WBC 8.4, RBC 2.23 L, Hgb 7.5 L, Hct 26.1 L, MCV 117.0 H, MCH 33.6 H, MCHC 28.7 L, RDW Std Deviation 65.1 H, RDW Coeff of Dao 15.5 H, Plt C ount 344, MPV 9.7, Immature Gran % (Auto) 0.600, Neut % (Auto) 62.4, Lymph % (Auto) 24.9, [place] % (Auto) 10.2 H, Eos % (Auto) 1.2, Baso % (Auto) 0.7, Absolute Neuts (auto) 5.3, Absolute Lymphs (auto) 2.09, Nucleated RBC % 0, Differential Comment SCANNED, Anisocytosis 1+ 03/08/21 21:15: Sodium 141, Potassium 3.9, Chloride 108 H, Carbon Dioxide 26.0, Anion Gap 7, BUN 13, Creatinine 0.63, Estim Creat Clear Calc 86.68, Est GFR (MDRD) Af Amer 122, Est GFR (MDRD) Non-Af 101, BUN/Creatinine Ratio 20.5 H, Glucose 113 H, Calcium 8.6 03/08/21 21:15: Blood Type O POSITIVE, Antibody Screen NEGATIVE, Crossmatch See Detail Assessment & Plan Assessment/Plan (1) Iron deficiency anemia: PLAN: #Acute on chronic anemia * likely due to GI bleed * admits to melena stools, but on iron chronically. Did have some epigastric pain which has now resolved * hold aspirin, plavix and ibuprofen * Check stool for occult blood. Hydrate gently with normal saline at 150 cc/h * Transfused with 1 unit of packed red blood cells * IV pantoprazole 40 mg twice daily keep n.p.o. past midnight. General surgery consult. * She had colonoscopy in 2018 which was negative for any evidence of lower GI bleed. EGD done then was also negative for any evidence of upper GI bleed. #CAD: aspirin and plavix held. On high intensity statin #Hypothyroidism: on synthroid #Hypertension: on lisinopril and metoprolol #Depression: on trazodone and venlafaxine DVT prophylaxis: SCDS GI prophylaxis: on IV PPI Code status: full code * Patient counseled extensively about different types of CODE STATUS including full code, DNR CCA and DNR CCA. Patient elects to be full code. * Total [id number] time 17 minutes. Charges/Coding Visit Charges Inpatient E&M: 26568 Init Hosp L3 Procedures Hospitalists Procedures: 89581 Advncd Care Plan 30 Min
[2021-03-08 23:08] VITALS: BP 136/57; PULSE 70; RESP 17; TEMP 36.7; O2SAT 96
[2021-03-08 23:10] VITALS: BP 136/57; PULSE 72; RESP 18; TEMP 36.7; O2SAT 95
[2021-03-08 23:22] VITALS: BP 130/54; PULSE 70; RESP 15; TEMP 36.2; O2SAT 94
[2021-03-08 23:23] VITALS: BP 130/54; PULSE 70; RESP 15; TEMP 36.2; O2SAT 94
[2021-03-09] VITALS (14 sets, daily range): BP systolic 103–130; BP diastolic 46–69; PULSE 62–78; RESP 16–18; TEMP 36.3–36.7; O2SAT 96–99; BMI 35.9
[2021-03-09] MEDS: 0.9% Normal Saline 1,000 ML 150 ML IV ×2 (03:30→09:18)
[2021-03-09] MEDS: Levothyroxine 25 MCG TABLET PO (06:00)
[2021-03-09 07:10] LABS: Absolute Lymphocyte Count 1.64 X10^3/uL (0.83-4.51); Basophil# 0.04 X10^3/uL; Basophil% 0.7 % (0-1); Eosinophils% 1.9 % (0-5); Hematocrit 28.8 % (37-47); Hemoglobin 8.8 g/dL (12.0-15.0); Lymphocyte # 1.64 X10^3/ul (0.83-4.51); Lymphocyte % 30.7 % (19-41); Mean Corp Hgb Conc 30.6 g/dL (32-36); Mean Corpuscular Hgb 32.6 pg (27.0-32.0); Mean Corpuscular Volume 106.7 fL (81-99); Mean Platelet Vol. 9.9 fl (6.2-12.0); Monocyte% 9.4 % (0-10); NRBC Flagged by Analyzer 0 % (0-5); Neutrophil # 3.04 X10^3/uL (2.7-7.7); Neutrophil % 56.9 % (47-70); POSITIVE MORPHOLOGY YES; Platelet Count 282 K/mm3 (150-450); RBC Distribution Width SD 83.6 fl (35.1-43.9); White Blood Count 5.3 K/mm3 (4.4-11.0)
[2021-03-09 07:27] LABS: Differential Indicated SCAN CRITERIA MET
[2021-03-09 07:34] LABS: Anion Gap 5 (5-15); BUN 10 mg/dL (7-18); BUN/Creat Ratio 20.8 RATIO (10-20); Calcium,Total 8.1 mg/dL (8.5-10.1); Chloride 111 mmol/L (98-107); Creatinine, Serum 0.48 mg/dL (0.55-1.02); EST Glomerular Filtration Rate 139 mL/min (>60); Est Glom Filt Rate - Afr Amer 168 mL/min (>60); Estimated Creatinine Clearance 113.76 ml/min; Glucose 95 mg/dL (74-106); Potassium 3.7 mmol/L (3.5-5.1); Sodium Level 143 mmol/L (136-145)
[2021-03-09 08:22] LABS: Anisocytosis 2+; Differential Comment SCANNED; Macrocytosis 1+; Microcytosis 1+
[2021-03-09] MEDS: Metoprolol Tartrate 50 MG Tablet PO ×2 (09:12→21:04)
[2021-03-09] MEDS: Venlafaxine HCl 75 MG Tablet PO ×2 (09:13→21:04)
[2021-03-09] MEDS: Lisinopril 20 MG Tablet PO (09:13)
[2021-03-09] MEDS: Electrolyte Solution/Peg's 4000 ML 2000 ML PO ×2 (10:34→17:25)
--- NOTE | 2021-03-09 11:12 | PCM.PN.HOSP ---
Documented by User: Altagracia Stanford NP, EARLY CHILDHOOD SPECIAL EDUCATOR-C 03/09/21 11:18 Subjective Subjective Patient seen and examined. Amendable to EGD/colonscopy, to complete 03/10/21. Patient denies nausea, vomiting, diarrhea. Denies abdominal pain. Denies shortness of breath, chest pain. Objective Data Objective Data Vital Signs: Vital Signs Temp Pulse Resp BP Pulse Ox 97.5 F L 78 16 124/64 H 97 03/09/21 01:09 03/09/21 09:12 03/09/21 01:09 03/09/21 01:09 03/09/21 01:09 Oxygen Delivery Method Room Air Weight: 222 lb 7.143 oz Body Mass Index (BMI) 35.9 Intake & Output: Intake and Output for Last 24 Hours 03/07/21 03/08/21 03/09/21 23:59 23:59 23:59 Intake Total 0 / 0 1780 / 1780 Balance 0 / 0 1780 / 1780 Lab / Micro Data Result Diagrams: 03/09/21 06:34 03/09/21 06:34 Labs: Laboratory Results - last 24 hr 03/08/21 21:15: WBC 8.4, RBC 2.23 L, Hgb 7.5 L, Hct 26.1 L, MCV 117.0 H, MCH 33.6 H, MCHC 28.7 L, RDW Std Deviation 65.1 H, RDW Coeff of Dao 15.5 H, Plt Count 344, MPV 9.7, Immature Gran % (Auto) 0.600, Neut % (Auto) 62.4, Lymph % (Auto) 24.9, [place] % (Auto) 10.2 H, Eos % (Auto) 1.2, Baso % (Auto) 0.7, Absolute Neuts (auto) 5.3, Absolute Lymphs (auto) 2.09, Nucleated RBC % 0, Differential Comment SCANNED, Anisocytosis 1+ 03/08/21 21:15: Sodium 141, Potassium 3.9, Chloride 108 H, Carbon Dioxide 26.0, Anion Gap 7, BUN 13, Creatinine 0.63, Estim Creat Clear Calc 86.68, Est GFR (MDRD) Af Amer 122, Est GFR (MDRD) Non-Af 101, BUN/Creatinine Ratio 20.5 H, Glucose 113 H, Calcium 8.6 03/08/21 21:15: Blood Type O POSITIVE, Antibody Screen NEGATIVE, Crossmatch See Detail 03/09/21 06:34: WBC 5.3, RBC 2.70 L, Hgb 8.8 L, Hct 28.8 L, MCV 106.7 H D, MCH 32.6 H, MCHC 30.6 L D, RDW Std Deviation 83.6 H, RDW Coeff of Dao 22.0 H, Plt Count 282, MPV 9.9, Immature Gran % (Auto) 0.400, Neut % (Auto) 56.9, Lymph % (Auto) 30.7, [place] % (Auto) 9.4, Eos % (Auto) 1.9, Baso % (Auto) 0.7, Absolute Neuts (auto) 3.0, Absolute Lymphs (auto) 1.64, Nucleated RBC % 0, Differential Comment SCANNED, Anisocytosis 2+, Microcytosis 1+, Macrocytosis 1+ 03/09/21 06:34: Sodium 143, Potassium 3.7, Chloride 111 H, Carbon Dioxide 27.0, Anion Gap 5, BUN 10, Creatinine 0.48 L, Estim Creat Clear Calc 113.76, Est GFR (MDRD) Af Amer 168, Est GFR (MDRD) Non-Af 139, BUN/Creatinine Ratio 20.8 H, Glucose 95, Calcium 8.1 L Physical Exam Const alert, oriented x3 and no apparent distress Orientation / Consciousness: awake, oriented to person, oriented to place and oriented to time HEENT normocephalic and moist oral mucous membranes Eyes PERRL, EOMs intact bilaterally and conjunctivae normal Neck no lymphadenopathy Resp normal respiratory effort and clear to auscultation bilaterally Cardio regular rate, regular rhythm and no murmurs Peripheral Pulses: pulses 2+ throughout GI normal to inspection, nondistended, normoactive bowel sounds, non-tender and non-distended Extremity normal to inspection Skin no rashes or lesions noted Lesions: no lesions Rashes: no rashes Trauma: no lacerations or abrasions Neuro CN's II-XII intact bilaterally, no focal motor deficits, no sensory deficits noted and deep tendon reflexes 2+ bilaterally Psych mental status grossly normal and affect normal Assessment & Plan Assessment/Plan (1) Anemia: PLAN: 1. Acute on chronic anemia, secondary to GI bleed-general surgery consulted. Plan for EGD/colonoscopy 03/10/2021. Aspirin, Plavix, NSAIDs on hold. Continue PPI. Trend CBC. Status post 2 units PRBC. 2. CAD-continue statin. Aspirin, Plavix on hold. 3. Hypertension-stable, continue lisinopril, metoprolol. 4. Hyperlipidemia-continue statin. 5. Hypothyroidism-continue Synthroid. 6. Depression-continue trazodone, venlafaxine. DVT prophylaxis-SCDs This patient was seen by MARIAN Rivera under the supervision of Dr. Lim. Documented by User: Dr. Ronny Lim DO 03/09/21 13:25 Objective Data Lab / Micro Data Result Diagrams: 03/09/21 06:34 03/09/21 06:34 Charges/Coding Addendum Addendum: Patient was seen and examined independently of Altagracia Stanford, she was admitted for acute on chronic anemia, patient had been worked up in the past for anemia secondary to suspected GI blood loss but according to the patient, no consensus had been reached as to why the patient was losing blood in the GI tract. Patient takes iron at home and has not seen any red rectal bleeding, she sees dark stools but she attributes this to the iron. I had a talk with general surgery today who was consulted to see the patient, general surgery is proposing an upper and lower endoscopy to be done tomorrow-I discussed this with the patient and she is okay with this. On examination she appeared in good health and spirits, she does not appear to be in any distress. Vital signs as documented. Skin warm and dry and without overt rashes. Neck without JVD, thyroid appears normal, trachea is midline, neck is supple. Lungs clear, normal air movement was noted. Heart exam notable for regular rhythm, normal sounds and absence of murmurs, rubs or gallops. Abdomen unremarkable and without evidence of organomegaly, masses, or abdominal aortic enlargement, bowel sounds are present in all 4 quadrants, no abdominal tenderness was noted. Extremities nonedematous, no cyanosis was noted, no clubbing was noted. Neuro: Cranial nerves II through XII are grossly intact, no focal motor deficits were noted, sensation to light touch and pinprick is intact, motor exam 5/5 throughout. Psych: Patient is alert and oriented x3, she does not appear anxious or depressed, she does not appear agitated. I have reviewed Altagracia Stanford's progress note including her medical assessment and plan of care and with the above additions endorse it. Visit Charges Inpatient E&M: 03940 Subs Hosp L2
--- NOTE | 2021-03-09 11:13 | PCM.CONS.B ---
Consult Date of Consult: 03/09/21 Chief Complaint: generalized weakness, Hgb is 7.5 History of Present Illness: 60 y/o WF presented to hospital with generalized weakness. She has known chronic anemia, usually Hgb around 10/11, but admitted with Hgb of 7.5. She is presently on chronic iron supplementation. She has had multiple endoscopies in the past looking for a source of GI bleed, last about three years ago. She denies hematemesis. She does note some abdominal discomfort of the LUQ of the abdomen. She has had epigastric abdominal pain in the past but denies any presently. She has dark stools due to being on iron supplementation. She denies fevers, weight loss Past Medical History: coronary artery disease hypertension diabetes obesity peripheral arterial disease - carotid disease aortic stenosis sleep apnea fibromyalgia irritable bowel syndrome Past Surgical History: 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) History of cataract removal with insertion of prosthetic lens History of coronary artery stent placement (12/20/08) History of left-sided carotid endarterectomy (01/2019) Hx of appendectomy Hx of bilateral cataract extraction left arm surgery Medications: nitroglycerin 0.4 mg sublingual tablet 0.4 mg SUBLINGUAL levothyroxine 25 mcg PO DAILY clopidogrel 75 mg tablet 75 mg PO QDAY polysaccharide iron complex 150 mg iron capsule 300 mg PO QDAY rosuvastatin 40 mg tablet 40 mg PO QDAY famotidine 40 mg tablet 1 tab PO DAILY trazodone 50 mg tablet 50 mg PO QHS aspirin 325 mg tablet 325 mg PO DAILY lisinopril 20 mg tablet 20 mg PO QDAY metoprolol tartrate 50 mg tablet 50 mg PO BID venlafaxine 75 mg PO BID Allergies: lipitor, codeine Social history: TOB use denies Review of Systems: General - denies fevers, denies weight loss Cardiovascular denies chest pain Pulmonary denies shortness of breath, denies coughing up blood Gastrointestinal as per HPI Neurological denies seizures Genitourinary denies burning with urination, denies blood in urine Hematological on plavix, denies spontaneous/prolonged bleeding Skin denies open non healing wounds Endocrine has diabetes, has hypothryoidism Psychological denies hallucinations Physical examination: Vital signs Temp 97.5F BP 124/64 HR 72 RR 16 General WD/WN WF in no apparent distress, alert and oriented, not septic appearing HEENT Normocephalic. EOM intact with sclera clear. Neck is supple with no jugular venous distention noted. Trachea is midline. . Lungs normal respiratory excursion, no adventitial sounds noted. No labored breathing noted, such as retractions. No cough heard. Heart regular. Abdomen soft and benign, patient notes some left upper quadrant tenderness but no peritoneal signs. . Extremities no pitting edema noted. Genitourinary/Rectal deferred Skin normal skin integrity. Neurological non focal. Psychological normal affect, patient is calm and appropriate IMPRESSION: anemia - rule out GI source DISCUSSION/PLAN: I have discussed the above with the patient. I have offered the patient the procedure of upper and lower endoscopy. I have explained the procedure to the patient. I have counseled the patient as to the risks of the procedure, including but not limited to: infection, bleeding, injury to any blood vessels/nerves, scar tissue, injury to any intraabdominal organs, perforation of GI tract, inability to complete procedure, complications of anesthesia, etc. the patient understands. She wishes to proceed. To be scheduled for tomorrow. I have answered all questions to the patient?s satisfaction and the patient has no further questions.
[2021-03-09] MEDS: Iron Polysaccharide Complex 150 MG CAPSULE 300 MG PO (11:48)
--- NOTE | 2021-03-09 14:29 | NT.THERAPY_ITS ---
Medical Nutrition Therapy - History Nutrition Services has been consulted to:: Manage nutrient details of diet order Current diet/nutrition support order:: NPO advanced to clear liquids currently with intake to be established. NPO tomorrow for planned EGD/colonoscopy - Anthropometric Measurements Height:: 5 ft 6 in Weight:: 100.9 kg Body Mass Index (BMI):: 35.9 - Relevant Labs Relevant Labs:: RBC 2.70 M/mm3 (4.2-5.4) L 03/09/21 06:34 Hgb 8.8 g/dL (12.0-15.0) L 03/09/21 06:34 Hct 28.8 % (37-47) L 03/09/21 06:34 MCV 106.7 fL (81-99) H D 03/09/21 06:34 MCH 32.6 pg (27.0-32.0) H 03/09/21 06:34 MCHC 30.6 g/dL (32-36) L D 03/09/21 06:34 RDW Std Deviation 83.6 fl (35.1-43.9) H 03/09/21 06:34 RDW Coeff of Dao 22.0 % (11.6-14.6) H 03/09/21 06:34 [place] % (Auto) 10.2 % (0-10) H 03/08/21 21:15 Chloride 111 mmol/L (98-107) H 03/09/21 06:34 Creatinine 0.48 mg/dL (0.55-1.02) L 03/09/21 06:34 BUN/Creatinine Ratio 20.8 RATIO (10-20) H 03/09/21 06:34 Glucose 113 mg/dL (74-106) H 03/08/21 21:15 Calcium 8.1 mg/dL (8.5-10.1) L 03/09/21 06:34 - Assessment Food and Nutrient Intake: Pt reports ongoing very poor appetite 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 Pt continues to explain that wt about 4 months ago was ~269-270 lbs; indicating~17% unintentional wt loss over that timeframe which is significant for severe protein/calorie malnutrition. Pt was NPO and advanced to clear liquids--tolerance to be established at this time. Pt does not show any physical signs of muscle or fat wasting and denies any difficulty chewing/swallowing simply reports not eating due to no appetite for several months now. Pt is agreeable to ONS as diet advanced. - Nutrition Diagnosis: Clinical Problem Acute Disease or Injury Related Malnutrition Clinical Problem - Etiology: related to ongoing poor appetite Clinical Problem - Signs/Symptoms: as evidenced by 17% wt loss in the past 4 months, ongoing poor/inadequate intake and consuming less than 50% estimated nutrition needs. Status: Active Problem - Protein Calorie Malnutrition Evidence of Malnutrition Exists: Yes Severe Protein Calorie Malnutrition:: Acute Illness/Injury - Nutrition Intervention Nutrition Prescription: Estimated nutrition needs~1600-1081 kcal (28-30 kcal/Kg adj wt) and ~80-85 gm pro (1.2 gm pro/Kg) per day. Estimated fluid needs~2000- 2100ml/day (30ml/Kg adj wt). - Food / Nutrient Delivery Interventions Summary of nutrition intervention:: Nutrition education provided, Provide oral nutrition supplement Nutrition support ordered as / adjusted to:: Pt advanced from NPO to clear liquids---will add 240ml ensure clear TID w/ meals to provide additional 720 kcal and 24 gm pro per day. Suggest advance diet as medically able to Transitional with goal diet of Cardiac. Adjust ONS as diet advanced from clear liquids post endoscopy. Nutrition education provided?: Yes - MNT Monitoring Active Nutrition Patient: Yes Nutrition Status: Requires Follow Up 3-5 Days
--- NOTE | 2021-03-09 16:15 | CASEMGMT ---
RN BRIAN BINGO MANAGER CM to room to meet with patient for initial transition planning/care coordination assessment. MURTAZA TORRES introduced self and role at [facility]. Pt voices understanding and consents to assessment at this time. Pt resting in bed in no distress at this time. Pt is A/O at this time and answers all questions appropriately. Care providers, pharmacy, and demographics verified/updated at this time. PCP:Dr Gutierrez Specialists: Dr Ulloa--oncology, Dr Samuel--cardiology Preferred Pharmacy: [facility] Insurance:[facility] Prescription Benefit: Yes Living Will/HPOA: Has both LW and HPOA, who is her , Enrique LNOK: , Enrique. Son, Willie. Dtr, Rivka Living Arrangements: Lives w/her , daughter, and 2 grandchildren (13 & 5). Independent w/ADL's and IADL's. Helps to take care of her grandchildren. They live in a 2-story home w/9 steps to enter. Bedroom is on 2nd floor w/14 steps. Pt says she is very careful on the steps and takes them slowly. Transportation: Pt states drives self and states no transportation concerns at this time. also drives. DME: States has the following DME: CPAP. Has a cane available, but does not use. Pt states no need for further DME at this time. HHC/SNF: No history of either and no needs identified. Denies need of HHC or OP therapy. Pt wishes to return home and states has no concerns with going home at time of discharge. CM to follow for any discharge planning/needs. Pt voices no concerns/needs at this time. Advised pt to ask for CM if any questions/concerns/needs arise. Voices understanding. PLAN: Home w/family support and discharge plans in place. Alice GONZALEZ RN, CM
[2021-03-09] MEDS: Acetaminophen 500 MG Tablet 1000 MG PO (19:13)
[2021-03-09] MEDS: 0.9% Saline Lock 10 ML Syringe IV (20:59)
[2021-03-09] MEDS: Rosuvastatin 20 MG Tablet 40 MG PO (21:04)
[2021-03-09] MEDS: traZODone 50 MG Tablet PO (21:04)
[2021-03-10] VITALS (12 sets, daily range): BP systolic 107–145; BP diastolic 44–60; PULSE 61–86; RESP 14–18; TEMP 36.4–36.9; O2SAT 94–99
[2021-03-10 05:51] LABS: Absolute Lymphocyte Count 1.21 X10^3/uL (0.83-4.51); Absolute Neutrophil Count 3.4 X10^3/uL (2.0-7.7); Basophil# 0.03 X10^3/uL; Basophil% 0.6 % (0-1); Eosinophil# 0.07 X10^3/uL; Eosinophils% 1.4 % (0-5); Hematocrit 30.3 % (37-47); Lymphocyte # 1.21 X10^3/ul (0.83-4.51); Lymphocyte % 23.4 % (19-41); Mean Corp Hgb Conc 29.7 g/dL (32-36); Mean Corpuscular Hgb 32.3 pg (27.0-32.0); Mean Corpuscular Volume 108.6 fL (81-99); Mean Platelet Vol. 9.7 fl (6.2-12.0); Monocyte# 0.44 X10^3/uL; Monocyte% 8.5 % (0-10); NRBC Flagged by Analyzer 0 % (0-5); Neutrophil # 3.41 X10^3/uL (2.7-7.7); Neutrophil % 65.9 % (47-70); POSITIVE MORPHOLOGY YES; Platelet Count 276 K/mm3 (150-450); RBC Distribution Width CV 20.3 % (11.6-14.6); RBC Distribution Width SD 80.9 fl (35.1-43.9); Red Blood Count 2.79 M/mm3 (4.2-5.4); White Blood Count 5.2 K/mm3 (4.4-11.0)
--- NOTE | 2021-03-10 06:00 | EKG12_ITS ---
Test Reason : AM EKG Blood Pressure : / mmHG Vent. Rate : 074 BPM Atrial Rate : 074 BPM P-R Int : 170 ms QRS Dur : 136 ms QT Int : 434 ms P-R-T Axes : 064 016 022 degrees QTc Int : 481 ms Normal sinus rhythm Right bundle branch block Abnormal ECG When compared with ECG of 04-JAN-2018 20:31, Right bundle branch block is now Present Confirmed by LAUREN FAROOQ, HEMAL ([id number]), editorial clerk RAKAN RODRÍGUEZ ([id number]) on 03/11/2021 11:55:07 AM Referred By: MARTHA Confirmed By:HEMAL AGUILAR MD
[2021-03-10 06:01] LABS: Differential Indicated SCAN CRITERIA MET
[2021-03-10 06:03] LABS: International Normalized Ratio 1.1; Prothrombin Time (Protime)PT. 13.5 SECONDS (11.7-14.9)
[2021-03-10 06:05] LABS: Partial Thromboplast Time 41.6 Seconds (24.1-36.2)
[2021-03-10] MEDS: Levothyroxine 25 MCG TABLET PO (06:19)
[2021-03-10 07:14] LABS: Thyroid Stim Hormone (TSH) 2.16 uIU/mL (0.358-3.74)
[2021-03-10] MEDS: 0.9% Saline Lock 10 ML Syringe IV (09:18)
--- NOTE | 2021-03-10 11:42 | PCM.PN.BLA ---
Progress Note Patient underwent upper and lower endoscopy this morning. No source of GI bleed found. If clinical presentation warrants - would recommend capsule camera endoscopy to identify for source of GI bleeding Advance diet as tolerated Will sign of this case, please re-consult if any changes
[2021-03-10] MEDS: Metoprolol Tartrate 50 MG Tablet PO (12:27)
[2021-03-10] MEDS: Lisinopril 20 MG Tablet PO (12:27)
[2021-03-10] MEDS: Iron Polysaccharide Complex 150 MG CAPSULE 300 MG PO (12:27)
[2021-03-10] MEDS: Venlafaxine HCl 75 MG Tablet PO (12:27)
--- NOTE | 2021-03-10 12:57 | PCM.DC ---
Discharge Instructions Diet Discharge Diet: Light diet - advance as tolerated Activity Discharge Activity: Return to Normal Activity Dressing / Incision Call your doctor if you observe: Shortness of breath, Dizziness and Chest pain Follow Up Care Test Results: Test results from this visit will be discussed in further detail at your follow-up appointment, if applicable. Discharge Plan Admission Admit Date/Time: 03/08/21 23:02 Primary Reason for Your Visit: Anemia Attending Provider: Ronny Lim Primary Care Provider: Martin Gutierrez Chi Consulting Providers: Charley De La Fuente Instructions Additional Instructions / Restrictions: You will need repeat blood work (CBC) in one week by PCP to reassess anemia. Also, you are recommended to undergo capsule endoscopy for further evaluation of blood loss which can be arranged by primary care provider. You were recently prescribed Protonix/Carafate, continue taking these medications. Discharge Orders/Prescriptions Prescriptions: Continued clopidogrel 75 mg tablet 75 mg PO QDAY RF: 0 nitroglycerin 0.4 mg tablet, sublingual 0.4 mg SUBLINGUAL Q5-15M PRN (Reason: chest pain) Qty: 25 RF: 3 polysaccharide iron complex [Ferrex 150] 150 mg iron capsule 300 mg PO QDAY RF: 0 rosuvastatin 40 mg tablet 40 mg PO QDAY RF: 0 aspirin 325 mg tablet 325 mg PO DAILY RF: 0 trazodone 50 mg tablet 50 mg PO QHS RF: 0 levothyroxine 25 MCG tablet 25 mcg PO DAILY RF: 0 venlafaxine 75 mg tablet 75 mg PO BID RF: 0 metoprolol tartrate 50 mg tablet 50 mg PO BID RF: 0 acetaminophen [Tylenol Extra Strength] 500 mg Tablet 1,000 mg PO Q6H PRN (Reason: Headache) RF: 0 lisinopril 20 mg tablet 20 mg PO QDAY Qty: 90 RF: 3 Discontinued famotidine 40 mg tablet 1 tab PO DAILY RF: 0 Referrals / Follow Up: Martin Gutierrez Chi, MD [Primary Care Provider] - In 1 Week Disposition Disposition (needs filled in before D/C Order can be placed): Home, Self Care
--- NOTE | 2021-03-10 13:05 | PCM.DC.SUM ---
Documented by User: Altagracia Stanford NP, [employer] 03/10/21 13:18 Providers Date of Admission: 03/08/21 Date of Discharge: 03/10/21 Primary Care Physician: Dr. Martin Gutierrez MD Consultations 03/09/21 01:32 Consult: General Surgery Routine Consulting Provider: Charley De La Fuente Reason for Consult: acute on chronic anemia EMERGENT Consult: No MD Notified: Yes Date Notified: 03/08/21 Time Notified: 22:59 Method of Notification: Verbal Reason For Visit: ACUTE ON CHRONIC ANEMIA Diagnosis Discharge Diagnosis (1) Anemia: Status: Acute Code(s): D64.9 - Anemia, unspecified Medications at Discharge Home Medications nitroglycerin 0.4 mg sublingual tablet 0.4 mg SUBLINGUAL Q5-15M PRN #25 tab 10/14/17 levothyroxine 25 mcg PO DAILY 11/30/17 clopidogrel 75 mg tablet 75 mg PO QDAY 02/09/18 polysaccharide iron complex 150 mg iron capsule 300 mg PO QDAY cap 04/09/18 rosuvastatin 40 mg tablet 40 mg PO QDAY 04/09/18 trazodone 50 mg tablet 50 mg PO QHS tab 01/03/20 aspirin 325 mg tablet 325 mg PO DAILY 02/14/20 lisinopril 20 mg tablet 20 mg PO QDAY #90 tab 10/19/20 venlafaxine 75 mg PO BID 03/08/21 acetaminophen [Tylenol Extra Strength] 1,000 mg PO Q6H PRN 03/09/21 metoprolol tartrate 50 mg PO BID 03/09/21 Hospital Course Operations None Procedures EGD Summary of Care Provided Minutes Spent on Discharge: 35 Hospital Course: Patient is a 60-year-old female admitted 03/08/2021 due to weakness. 1. Acute on chronic anemia, secondary to GI bleed-general surgery consulted. Status post 2 units PRBC. Hemoglobin has since remained stable. Underwent EGD which showed no source of bleeding. Recommend capsule endoscopy which patient can be referred to as outpatient. Patient prescribed Protonix and Carafate 03/07/2021 which she will continue taking at discharge. Follow-up with PCP in 1 week. Recommend repeat CBC in 1 week. 2. CAD-continue statin. Aspirin and Plavix resumed at discharge. 3. Hypertension-stable, continue lisinopril, metoprolol. 4. Hyperlipidemia-continue statin. 5. Hypothyroidism-continue Synthroid. 6. Depression-continue trazodone, venlafaxine. 7. Severe protein calorie malnutrition-dietitian consult during admission. Physical Exam Const alert, oriented x3 and no apparent distress Orientation / Consciousness: awake, oriented to person, oriented to place and oriented to time HEENT normocephalic and moist oral mucous membranes Eyes PERRL, EOMs intact bilaterally and conjunctivae normal Neck no lymphadenopathy Resp normal respiratory effort and clear to auscultation bilaterally Cardio regular rate, regular rhythm and no murmurs Peripheral Pulses: pulses 2+ throughout GI normal to inspection, nondistended, normoactive bowel sounds, non-tender and non-distended Extremity normal to inspection Skin no rashes or lesions noted Lesions: no lesions Rashes: no rashes Trauma: no lacerations or abrasions Neuro CN's II-XII intact bilaterally, no focal motor deficits, no sensory deficits noted and deep tendon reflexes 2+ bilaterally Psych mental status grossly normal and affect normal Patient seen and examined prior to discharge. Physical assessment as noted above. Patient is stable for discharge with follow up recommendations as noted above. This patient was seen by MARIAN Rivera under the supervision of Dr. Lim. Weight / BMI Weight Weight: 222 lb 7.143 oz Body Mass Index (BMI) 35.9 ABG / Lab / Microbiology Data Result Diagrams: 03/10/21 05:38 03/09/21 06:34 Laboratory: Laboratory Results - last 24 hr 03/10/21 05:38: WBC 5.2, RBC 2.79 L, Hgb 9.0 L, Hct 30.3 L, MCV 108.6 H, MCH 32.3 H, MCHC 29.7 L, RDW Std Deviation 80.9 H, RDW Coeff of Dao 20.3 H, Plt Count 276, MPV 9.7, Immature Gran % (Auto) 0.200, Neut % (Auto) 65.9, Lymph % (Auto) 23.4, [place] % (Auto) 8.5, Eos % (Auto) 1.4, Baso % (Auto) 0.6, Absolute Neuts (auto) 3.4, Absolute Lymphs (auto) 1.21, Nucleated RBC % 0 03/10/21 05:38: PT 13.5, INR 1.1, APTT 41.6 H 03/10/21 05:38: TSH 2.16 D/C Instructions Discharge Diet: Light diet - advance as tolerated Call your doctor if you observe: Shortness of breath, Dizziness and Chest pain Meaningful Use Info Meaningful Use Diagnoses (Choose all that apply): None applicable Discharge Plan Admission Admit Date/Time: 03/08/21 23:02 Primary Reason for Your Visit: Anemia Attending Provider: Ronny Lim Primary Care Provider: Martin Gutierrez Chi Consulting Providers: Charley De La Fuente Instructions Additional Instructions / Restrictions: You will need repeat blood work (CBC) in one week by PCP to reassess anemia. Also, you are recommended to undergo capsule endoscopy for further evaluation of blood loss which can be arranged by primary care provider. You were recently prescribed Protonix/Carafate, continue taking these medications. Discharge Orders/Prescriptions Prescriptions: Continued clopidogrel 75 mg tablet 75 mg PO QDAY RF: 0 nitroglycerin 0.4 mg tablet, sublingual 0.4 mg SUBLINGUAL Q5-15M PRN (Reason: chest pain) Qty: 25 RF: 3 polysaccharide iron complex [Ferrex 150] 150 mg iron capsule 300 mg PO QDAY RF: 0 rosuvastatin 40 mg tablet 40 mg PO QDAY RF: 0 aspirin 325 mg tablet 325 mg PO DAILY RF: 0 trazodone 50 mg tablet 50 mg PO QHS RF: 0 levothyroxine 25 MCG tablet 25 mcg PO DAILY RF: 0 venlafaxine 75 mg tablet 75 mg PO BID RF: 0 metoprolol tartrate 50 mg tablet 50 mg PO BID RF: 0 acetaminophen [Tylenol Extra Strength] 500 mg Tablet 1,000 mg PO Q6H PRN (Reason: Headache) RF: 0 lisinopril 20 mg tablet 20 mg PO QDAY Qty: 90 RF: 3 Discontinued famotidine 40 mg tablet 1 tab PO DAILY RF: 0 Referrals / Follow Up: Martin Gutierrez Chi, MD [Primary Care Provider] - In 1 Week Disposition Disposition (needs filled in before D/C Order can be placed): Home, Self Care Documented by User: Dr. Ronny Lim DO 03/10/21 14:04 Providers Date of Admission: 03/08/21 Reason For Visit: ACUTE ON CHRONIC ANEMIA Medications at Discharge Home Medications nitroglycerin 0.4 mg sublingual tablet 0.4 mg SUBLINGUAL Q5-15M PRN #25 tab 10/14/17 levothyroxine 25 mcg PO DAILY 11/30/17 clopidogrel 75 mg tablet 75 mg PO QDAY 02/09/18 polysaccharide iron complex 150 mg iron capsule 300 mg PO QDAY cap 04/09/18 rosuvastatin 40 mg tablet 40 mg PO QDAY 04/09/18 trazodone 50 mg tablet 50 mg PO QHS tab 01/03/20 aspirin 325 mg tablet 325 mg PO DAILY 02/14/20 lisinopril 20 mg tablet 20 mg PO QDAY #90 tab 10/19/20 venlafaxine 75 mg PO BID 03/08/21 acetaminophen [Tylenol Extra Strength] 1,000 mg PO Q6H PRN 03/09/21 metoprolol tartrate 50 mg PO BID 03/09/21 ABG / Lab / Microbiology Data Result Diagrams: 03/10/21 05:38 03/09/21 06:34 Discharge Plan Admission Admit Date/Time: 03/08/21 23:02 Primary Reason for Your Visit: Anemia Attending Provider: Ronny Lim Primary Care Provider: Martin Gtuierrez Chi Consulting Providers: Charley De La Fuente Instructions Additional Instructions / Restrictions: You will need repeat blood work (CBC) in one week by PCP to reassess anemia. Also, you are recommended to undergo capsule endoscopy for further evaluation of blood loss which can be arranged by primary care provider. You were recently prescribed Protonix/Carafate, continue taking these medications. Discharge Orders/Prescriptions Prescriptions: Continued clopidogrel 75 mg tablet 75 mg PO QDAY RF: 0 nitroglycerin 0.4 mg tablet, sublingual 0.4 mg SUBLINGUAL Q5-15M PRN (Reason: chest pain) Qty: 25 RF: 3 polysaccharide iron complex [Ferrex 150] 150 mg iron capsule 300 mg PO QDAY RF: 0 rosuvastatin 40 mg tablet 40 mg PO QDAY RF: 0 aspirin 325 mg tablet 325 mg PO DAILY RF: 0 trazodone 50 mg tablet 50 mg PO QHS RF: 0 levothyroxine 25 MCG tablet 25 mcg PO DAILY RF: 0 venlafaxine 75 mg tablet 75 mg PO BID RF: 0 metoprolol tartrate 50 mg tablet 50 mg PO BID RF: 0 acetaminophen [Tylenol Extra Strength] 500 mg Tablet 1,000 mg PO Q6H PRN (Reason: Headache) RF: 0 lisinopril 20 mg tablet 20 mg PO QDAY Qty: 90 RF: 3 Discontinued famotidine 40 mg tablet 1 tab PO DAILY RF: 0 Referrals / Follow Up: Martin Gutierrez Chi, MD [Primary Care Provider] - In 1 Week Disposition Disposition (needs filled in before D/C Order can be placed): Home, Self Care Charges/Coding Addendum Addendum: Patient was seen and examined independently of Altagracia Stanford today, she underwent an EGD and a colonoscopy which did not show any evidence of abnormality that would account for why she is anemic. I recommended to the patient that she talk to her primary care physician about referral to a technical support intern that performs capsule endoscopy. I recommend that she stay on Protonix 40 mg twice a day in the meantime. On examination she appeared in good health and spirits, she does not appear to be in any distress. Vital signs as documented. Skin warm and dry and without overt rashes. Neck without JVD, thyroid appears normal, trachea is midline, neck is supple. Lungs clear, normal air movement was noted. Heart exam notable for regular rhythm, normal sounds and absence of murmurs, rubs or gallops. Abdomen unremarkable and without evidence of organomegaly, masses, or abdominal aortic enlargement, bowel sounds are present in all 4 quadrants, no abdominal tenderness was noted. Extremities nonedematous, no cyanosis was noted, no clubbing was noted. Neuro: Cranial nerves II through XII are grossly intact, no focal motor deficits were noted, sensation to light touch and pinprick is intact, motor exam 5/5 throughout. Psych: Patient is alert and oriented x3, she does not appear anxious or depressed, she does not appear agitated. Patient appears stable for discharge at this time, hemoglobin today was 9. I have reviewed Altagracia Stanford's discharge summary including her medical assessment and plan of care and endorse it. Visit Charges Inpatient E&M: 85999 Disch Hosp
--- NOTE | 2021-03-11 13:20 | OP.COLON_ITS ---
Patient Name: Angeles Larios Procedure Date: 03/10/2021 11:09 AM Date of : 1960 Age: 60 Procedure: Colonoscopy Indications: Iron deficiency anemia Providers: Charley De La Fuetne MD Medicines: See the Anesthesia note for documentation of the administered medications Patient Profile: Refer to note in patient chart for documentation of history and physical. Last Colonoscopy: 2017. Complications: No immediate complications. Procedure: Pre-Anesthesia Assessment: - see anesthesia note After I obtained informed consent, the scope was passed under direct vision. Throughout the procedure, the patient's blood pressure, pulse, and oxygen saturations were monitored continuously. The Colonoscope was introduced through the anus and advanced to the cecum, identified by the appendiceal orifice, ileocecal valve and palpation. The colonoscopy was performed without difficulty. The patient tolerated the procedure well. The quality of the bowel preparation was poor. Pictures taken to show poor colon cleansing preparation. Scope In: 11:05:23 AM Scope Withdrawal Time 0 hours 7 minutes 29 seconds Scope Out: 11:27:45 AM Total Procedure Duration Time 0 hours 22 minutes 22 seconds Findings: The perianal and digital rectal examinations were normal. Non-bleeding internal hemorrhoids were found. Multiple small and large-mouthed diverticula were found in the sigmoid colon. Impression: - Preparation of the colon was poor, however, no obvious masses noted in the colon no obvious source of GI bleed noted in the colon - Non-bleeding internal hemorrhoids. - No specimens collected. Recommendation: - No repeat colonoscopy due to current age (66 years or older). - Continue present medications. Procedure Code(s): --- Professional --- 71782, Colonoscopy, flexible; diagnostic, including collection of specimen(s) by brushing or washing, when performed (separate procedure) Diagnosis Code(s): --- Professional --- D50.9, Iron deficiency anemia, unspecified K64.8, Other hemorrhoids CPT copyright 2017 [employer]. All rights reserved. The codes documented in this report are preliminary and upon spot billing clerk review may be revised to meet current compliance requirements. MD Charley Goddard MD 03/10/2021 11:37:13 AM This report has been signed electronically. Number of Addenda: 0 Note Initiated On: 03/10/2021 11:09 AM
--- NOTE | 2021-03-11 13:20 | OP.CCLET_ITS ---
03/11/2021 Martin Gutierrez MD [address] [place] [address] Re : Colonoscopy procedure for Angeles Ric Dear Dr. Gutierrez This procedure was performed on Wednesday, March 10, 2021. My impressions and recommendations are as follows: Impressions : - Preparation of the colon was poor, however, no obvious masses noted in the colon no obvious source of GI bleed noted in the colon - Non-bleeding internal hemorrhoids. - No specimens collected. Recommendations : - No repeat colonoscopy due to current age (66 years or older). - Continue present medications. My findings are described in the full procedure note, which is enclosed. If I can be of further assistance, please feel free to contact me at Doctor phone number(s): , Work: . Sincerely, MD Charley Goddard MD 03/10/2021 11:37:13 AM This report has been signed electronically.
--- NOTE | 2021-03-11 13:22 | OP.CCLET_ITS ---
03/11/2021 Martin Gutierrez MD [address] [place] [address] Re : Upper GI endoscopy procedure for Angeles Larios Dear Dr. Gutierrez This procedure was performed on Wednesday, March 10, 2021. My impressions and recommendations are as follows: Impressions : - Normal first portion of the duodenum and second portion of the duodenum. - No specimens collected. Recommendations : - Return patient to [facility] for [facility] care. - Resume previous diet. - Continue present medications. My findings are described in the full procedure note, which is enclosed. If I can be of further assistance, please feel free to contact me at Doctor phone number(s): , Work: . Sincerely, MD Charley Goddard MD 03/10/2021 11:31:57 AM This report has been signed electronically.
--- NOTE | 2021-03-11 13:22 | OP.EGD_ITS ---
Patient Name: Angeles Larios Procedure Date: 03/10/2021 9:56 AM Date of : 1960 Age: 60 Procedure: Upper GI endoscopy Indications: Iron deficiency anemia Providers: Charley De La Fuente MD Medicines: See the Anesthesia note for documentation of the administered medications Patient Profile: Refer to note in patient chart for documentation of history and physical. Complications: No immediate complications. Procedure: Pre-Anesthesia Assessment: - see anesthesia note After obtaining informed consent, the endoscope was passed under direct vision. Throughout the procedure, the patient's blood pressure, pulse, and oxygen saturations were monitored continuously. The Endoscope was introduced through the mouth, and advanced to the second part of duodenum. The upper GI endoscopy was accomplished without difficulty. The patient tolerated the procedure well. Scope In: 11:02:57 AM Scope Out: 11:06:33 AM Total Procedure Duration Time 0 hours 3 minutes 36 seconds Findings: The first portion of the duodenum and second portion of the duodenum were normal. The exam of the stomach was otherwise normal. The exam of the esophagus was otherwise normal. Impression: - Normal first portion of the duodenum and second portion of the duodenum. - No specimens collected. Recommendation: - Return patient to [facility] for ongoing care. - Resume previous diet. - Continue present medications. Procedure Code(s): --- Professional --- 17506, Esophagogastroduodenoscopy, flexible, transoral; diagnostic, including collection of specimen(s) by brushing or washing, when performed (separate procedure) Diagnosis Code(s): --- Professional --- D50.9, Iron deficiency anemia, unspecified CPT copyright 2017 [employer]. All rights reserved. The codes documented in this report are preliminary and upon complaint inspector review may be revised to meet current compliance requirements. MD Charley Goddard MD 03/10/2021 11:31:57 AM This report has been signed electronically. Number of Addenda: 0 Note Initiated On: 03/10/2021 9:56 AM
--- NOTE | 2021-03-11 14:52 | CASEMGMT ---
MURTAZA TORRES Discharge Follow Up Phone Call: KOLTON: Kriss Strata:3 Call Date: 03/11/21 Discharge Date: 03/10/21 Time of Call:1450 Duration:2 min Admitting Dx: anemia MURTAZA TORRES completed follow up phone call after recent hospitalization. Pt states she doesn't feel much better than when she was in the hospital. Pt states she is on the way currently to see for hospital follow up. Pt is aware that blood work was to be drawn a week after dc. Pt denies questions regarding her medication or dc instructions. Pt has no further questions or concerns at this time.
== END 2021-03-10 14:05 | disposition home or self-care (01) | DRG 377 ==
LOC: ED 22:10 → MS3 23:23
PROVIDERS: Anesthesiology; Nurse Practitioner Family; Surgery; Admitting Provider Student in an Organized Health Care Education/Training Program; Emergency Provider Emergency Medicine; PCP Family Medicine Geriatric Medicine; Visit Provider Internal Medicine
PROC: 0DJD8ZZ Inspection of Lower Intestinal Tract, Via Natural or Artificial Opening Endoscopic (ICD-10-PCS; CPT 45378; principal; 2021-03-10 10:30)
DX: K92.2 Gastrointestinal hemorrhage, unspecified (principal); E43 Unspecified severe protein-calorie malnutrition; D62 Acute posthemorrhagic anemia; I25.10 Atherosclerotic heart disease of native coronary artery without angina pectoris; E78.5 Hyperlipidemia, unspecified; E03.9 Hypothyroidism, unspecified; F32.9 Major depressive disorder, single episode, unspecified; I10 Essential (primary) hypertension; E11.51 Type 2 diabetes mellitus with diabetic peripheral angiopathy without gangrene; M79.7 Fibromyalgia; G47.30 Sleep apnea, unspecified; D51.0 Vitamin B12 deficiency anemia due to intrinsic factor deficiency; K58.9 Irritable bowel syndrome, unspecified; E66.9 Obesity, unspecified; K64.8 Other hemorrhoids; F17.210 Nicotine dependence, cigarettes, uncomplicated; Z86.73 Personal history of transient ischemic attack (TIA), and cerebral infarction without residual deficits; Z79.02 Long term (current) use of antithrombotics/antiplatelets; Z79.82 Long term (current) use of aspirin; Z95.5 Presence of coronary angioplasty implant and graft; Z79.899 Other long term (current) drug therapy; Z86.718 Personal history of other venous thrombosis and embolism; Z68.35 Body mass index [BMI] 35.0-35.9, adult
CPT/HCPCS: 36415; 80048; 84443; 85025; 85610; 85730; 86850; 86900; 86901; 86920; 86922; 93005; 97162; 97165; 97802; 99285; 99406; J7030; J7040; P9016; A4216; J2405

== ENCOUNTER → 2021-03-11 16:51 | Outpatient (CLI) | payer OTHER, SELFPAY ==
[2021-02-19 23:01] VITALS: BMI 40.7
[2021-03-09 14:31] VITALS: BMI 35.9
[2021-03-11 17:08] LABS: Absolute Lymphocyte Count 1.21 X10^3/uL (0.83-4.51); Absolute Neutrophil Count 5.5 X10^3/uL (2.0-7.7); Basophil# 0.04 X10^3/uL; Basophil% 0.5 % (0-1); Eosinophils% 1.3 % (0-5); Hematocrit 36.6 % (37-47); Lymphocyte # 1.21 X10^3/ul (0.83-4.51); Lymphocyte % 15.7 % (19-41); Mean Corp Hgb Conc 30.1 g/dL (32-36); Mean Corpuscular Hgb 32.2 pg (27.0-32.0); Mean Platelet Vol. 9.7 fl (6.2-12.0); Monocyte# 0.86 X10^3/uL; Monocyte% 11.2 % (0-10); NRBC Flagged by Analyzer 0 % (0-5); Neutrophil # 5.47 X10^3/uL (2.7-7.7); POSITIVE MORPHOLOGY YES; Platelet Count 378 K/mm3 (150-450); RBC Distribution Width CV 18.3 % (11.6-14.6); RBC Distribution Width SD 73.3 fl (35.1-43.9); Red Blood Count 3.42 M/mm3 (4.2-5.4); White Blood Count 7.7 K/mm3 (4.4-11.0)
[2021-03-11 17:18] LABS: Differential Indicated SCAN CRITERIA MET
[2021-03-11 17:37] LABS: ALB/GLOB Ratio 0.9 RATIO (0.9-2.4); AST(SGOT) 12 U/L (15-37); Alanine Aminotransfer ALT/SGPT 18 U/L (13-56); Albumin, Serum 3.2 g/dL (3.2-5.0); Alkaline Phosphatase 118 U/L (45-117); Anion Gap 5 (5-15); BUN 10 mg/dL (7-18); BUN/Creat Ratio 13.5 RATIO (10-20); Calcium,Total 8.4 mg/dL (8.5-10.1); Chloride 110 mmol/L (98-107); Creatinine, Serum 0.74 mg/dL (0.55-1.02); EST Glomerular Filtration Rate 84 mL/min (>60); Est Glom Filt Rate - Afr Amer 102 mL/min (>60); Globulin 3.7 g/dL (2.2-4.2); Glucose 149 mg/dL (74-106); Potassium 3.7 mmol/L (3.5-5.1); Protein, Total 6.9 g/dL (6.4-8.2); Sodium Level 142 mmol/L (136-145); Thyroid Stim Hormone (TSH) 2.05 uIU/mL (0.358-3.74)
[2021-03-11 17:39] LABS: Anisocytosis 1+; Differential Comment SCANNED
[2021-03-11 17:40] LABS: Macrocytosis 1+
[2021-03-11 17:43] LABS: Polychromasia 1+
== END ==
PROVIDERS: PCP Family Medicine Geriatric Medicine; Visit Provider Family Medicine Geriatric Medicine
DX: M54.5 Low back pain (principal); R53.83 Other fatigue; N39.0 Urinary tract infection, site not specified
CPT/HCPCS: 36415; 80053; 84443; 85025; 87086; 87088

== ENCOUNTER → 2021-03-20 17:42 | Outpatient (CLI) | payer OTHER, SELFPAY ==
[2021-03-09 14:31] VITALS: BMI 35.9
--- NOTE | 2021-03-20 17:46 | CT_ITS ---
STUDY: LOW DOSE CT LUNG CANCER SCREENING REASON FOR EXAM: Female, 60 years old. SMOKER. Patient smokes half a pack of cigarettes per day for 45 years. RADIATION DOSAGE (If Supplied By Facility): CTDIvol = ( 2.39 ) mGy, DLP = ( 85.18 ) mGycm TECHNIQUE: No contrast was administered. Low dose technique was utilized (average mAS-38 and kVp 120). 1.25 mm axial source images with a slice interval of 1.25-mm were reconstructed in lung windows. 2.5 mm axial source images with a slice interval of 2.5-mm were reconstructed in lung windows. 5.0 mm axial source images with a slice interval of 5.0-mm were reconstructed in soft tissue windows. Nodule measured using lung windows on PACS and/or independent workstation with automated measurement of minimum and maximum diameter. Nodule measurement reported as average diameter rounded to the nearest whole number. Growth is defined as an increase ins size of greater than 1.5 mm. COMPARISON: None. NODULES: 2 mm partially calcified nodule in the peripheral aspect of the left upper lobe as seen on axial image #96. This most likely represents a small granuloma. Emphysema: Hyperinflation. Stable mild emphysematous changes. Endobronchial lesion: None Aorta: Atherosclerotic calcific plaques at the level of the aortic arch. Coronary arteries: Coronary artery calcification. Heart: Unremarkable Mediastinal nodes: Small benign-appearing mediastinal lymph nodes. Other chest and abdominal findings: CT/Low Dose CT Lung Screening IMPRESSION: Lung-RADS category 2 - Continue annual screening with LDCT in 12 months. IMPORTANT NOTES FOR USE: ACR Lung-RADS Version 1.1 Assessment Categories Release Date: 2018 Category: Coded 0-4 bases on nodule(s) with highest degree of suspicion. Negative screen is defined as categories 1 and 2; a positive screen is defined as categories 3 and 4. Category 3 and 4A nodules that are unchanged on interval CT should be coded as category 2, and individuals returned to screening in 12 months. Category 4X: Category 3 or 4 nodules with additional imaging findings that increase the suspicion of lung cancer, such as spiculation, GGN that doubles in size in 1 year, enlarged lymph notes, etc. Category Modifiers: S (significant finding unrelated to lung cancer) Electronically Signed: Gamaliel Serrano MD at 21:00 EDT , Service support ,
== END ==
PROVIDERS: PCP Family Medicine Geriatric Medicine; Referring Provider Family Medicine Geriatric Medicine; Visit Provider Family Medicine Geriatric Medicine
DX: F17.210 Nicotine dependence, cigarettes, uncomplicated (principal)
CPT/HCPCS: 71271

== ENCOUNTER → 2021-08-20 12:34 | Outpatient (CLI) | payer OTHER, SELFPAY ==
--- NOTE | 2021-08-20 12:39 | ECHOD_ITS ---
Reason For Study: Non-rheumatic Procedure This was a 2D Doppler, Color Flow transthoracic echocardiogram. Exam performed in department. Left Ventricle Normal LV size. Left ventricular systolic function is normal. The estimated ejection fraction is 60 %. Stage 1 diastolic dysfunction. No regional wall motion abnormalities noted. Right Ventricle Normal RV size. Normal systolic function. Atria Normal left atrium. Normal right atrium. Mitral Valve The mitral papillary muscle appears thickened and/or calcified. Mild (1+) eccentric mitral valve insufficiency. Tricuspid Valve Normal tricuspid valve. Aortic Valve Trisinus/trileaflet aortic valve. Mild focal aortic valve calcification. Peak aortic valve gradient 61 mmHg. Mean aortic valve gradient 36 mmHg. Mild (1+) aortic valve insufficiency. Pulmonic Valve Normal pulmonic valve. Great Vessels Normal aortic root. The pulmonary artery is normal size. Normal inferior vena cava. Pericardium/Pleural No pericardial effusion. MMode/2D Measurements & Calculations LVIDd: 4.7 cm IVSd: 1.2 cm LVOT diam: 1.9 cm LVIDs: 1.6 cm LVPWd: 1.1 cm LVOT area: 3.0 cm2 FS: 64.9 % LA dimension: 4.1 cm LAV(MOD-bp): 80.4 ml LA A4 area: 21.2 cm2 LAV(MOD-bp) Indexed: 39.7 ml/m2 LAV(MOD-sp2): 88.6 ml LAV(MOD-sp4): 65.3 ml RA A4 area: 14.5 cm2 Time Measurements MV dec time: 0.25 sec Doppler Measurements & Calculations MV E max elier: 101.3 cm/sec Lat Peak E' Elier: 9.2 cm/sec Med Peak E' Elier: 8.2 cm/sec MV A max elier: 119.4 cm/sec E/E' lat: 11.0 E/E' med: 12.4 MV E/A: 0.85 MV V2 max: 121.7 cm/sec MV P1/2t max elier: 111.3 cm/sec Ao V2 max: 392.5 cm/sec MV max P.9 mmHg MV P1/2t: 69.2 msec Ao max P.6 mmHg MV V2 mean: 76.4 cm/sec MV dec slope: 471.0 cm/sec2 Ao V2 mean: 284.6 cm/sec MV mean P.7 mmHg Ao mean P.1 mmHg MV V2 VTI: 29.2 cm MVA(P1/2t): 3.2 cm2 Ao V2 VTI: 93.5 cm MVA(VTI): 3.2 cm2 AMADO(I,D): 1.0 cm2 AMADO(V,D): 1.0 cm2 AI max elier: 326.6 cm/sec LV V1 max: 135.0 cm/sec SV(LVOT): 94.6 ml AI max P.7 mmHg LV V1 max P.3 mmHg LV V1 mean P.4 mmHg AI dec slope: 241.0 cm/sec2 LV V1 mean: 84.7 cm/sec AI P1/2t: 396.9 msec LV V1 VTI: 31.8 cm PA V2 max: 154.1 cm/sec ECHO/Echo Complete Interpretation Summary Normal LV size. Left ventricular systolic function is normal. The estimated ejection fraction is 60 %. The mitral papillary muscle appears thickened and/or calcified. Mild (1+) eccentric mitral valve insufficiency. Peak aortic valve gradient 61 mmHg. Mean aortic valve gradient 36 mmHg. Stage 1 diastolic dysfunction. Compared to the previous the AV is worse. Ordering Physician: Rogelio Guidry Referring Physician: Martin Gutierrez Chi Performed By: Lenny Ohara RCS
== END ==
PROVIDERS: PCP Family Medicine Geriatric Medicine; Referring Provider Nurse Practitioner Family; Visit Provider Nurse Practitioner Family
DX: I35.0 Nonrheumatic aortic (valve) stenosis (principal)
CPT/HCPCS: 93306

== ENCOUNTER 2021-12-02 13:16 | Outpatient (CLI) | payer MEDICAID, SELFPAY ==
[2021-12-02 17:11] LABS: Absolute Lymphocyte Count 1.37 X10^3/uL (0.83-4.51); Absolute Neutrophil Count 3.6 X10^3/uL (2.0-7.7); Basophil# 0.07 X10^3/uL; Basophil% 1.2 % (0-1); Eosinophil# 0.16 X10^3/uL; Eosinophils% 2.7 % (0-5); Hematocrit 38.8 % (37-47); Hemoglobin 12.1 g/dL (12.0-15.0); Lymphocyte # 1.37 X10^3/ul (0.83-4.51); Lymphocyte % 23.1 % (19-41); Mean Corp Hgb Conc 31.2 g/dL (32-36); Mean Corpuscular Hgb 33.3 pg (27.0-32.0); Mean Corpuscular Volume 106.9 fL (81-99); Mean Platelet Vol. 10.2 fl (6.2-12.0); Monocyte# 0.68 X10^3/uL; Monocyte% 11.5 % (0-10); NRBC Flagged by Analyzer 0 % (0-5); Neutrophil # 3.62 X10^3/uL (2.7-7.7); Neutrophil % 61.2 % (47-70); Platelet Count 323 K/mm3 (150-450); RBC Distribution Width CV 12.8 % (11.6-14.6); RBC Distribution Width SD 50.8 fl (35.1-43.9); Red Blood Count 3.63 M/mm3 (4.2-5.4); White Blood Count 5.9 K/mm3 (4.4-11.0)
[2021-12-02 17:28] LABS: ALB/GLOB Ratio 1.1 RATIO (0.9-2.4); AST(SGOT) 13 U/L (15-37); Alanine Aminotransfer ALT/SGPT 24 U/L (13-56); Albumin, Serum 3.4 g/dL (3.2-5.0); Alkaline Phosphatase 112 U/L (45-117); Anion Gap 4 (5-15); BUN 13 mg/dL (7-18); BUN/Creat Ratio 18.8 RATIO (10-20); Calcium,Total 8.3 mg/dL (8.5-10.1); Chloride 109 mmol/L (98-107); Creatinine, Serum 0.69 mg/dL (0.55-1.02); EST Glomerular Filtration Rate 91 mL/min (>60); Est Glom Filt Rate - Afr Amer 110 mL/min (>60); Globulin 3.2 g/dL (2.2-4.2); Glucose 126 mg/dL (74-106); Potassium 3.9 mmol/L (3.5-5.1); Protein, Total 6.6 g/dL (6.4-8.2); Sodium Level 141 mmol/L (136-145); Thyroid Stim Hormone (TSH) 3.07 uIU/mL (0.358-3.74)
== END 2021-12-02 23:59 | disposition home or self-care (01) ==
LOC: POLAB3 13:16
PROVIDERS: PCP Family Medicine Geriatric Medicine; Visit Provider Family Medicine Geriatric Medicine
DX: I10 Essential (primary) hypertension (principal)
CPT/HCPCS: 36415; 80053; 84443; 85025

== ENCOUNTER → 2021-12-17 | Outpatient (CLI) | payer MEDICAID, SELFPAY ==
--- NOTE | 2021-12-17 13:50 | CT_ITS ---
STUDY: CT SOFT TISSUE NECK WITH CONTRAST REASON FOR EXAM: Female, 61 years old. SUBMANDIBULAR LYMPHADENOPATHY RADIATION DOSAGE (If Supplied By Facility): CTDIvol = ( 18.81 ) mGy, DLP = ( 537.65 ) mGycm TECHNIQUE: The patient was scanned in a multi-detector CT scanner. High resolution transaxial imaging was performed following intravenous administration of 75ML OF ISOVUE 300. Sagittal and coronal images were reconstructed. Individualized dose optimization techniques were used for this CT. COMPARISON: None. FINDINGS: Normal bilateral parotid glands. 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 Normal bilateral parapharyngeal spaces. Normal bilateral carotid spaces. Normal bilateral sublingual and submandibular glands and spaces. Normal visualized nasopharynx. Normal retropharyngeal space. Normal perivertebral space. Normal visualized bilateral faucial tonsils. The visualized tongue, tongue base and oropharynx are normal. The visualized cervical lymph nodes (levels I-) are within normal size limits, and maintain normal morphology. There is no demonstrated solid or cystic mass lesion. There is no abnormal contrast enhancement. Normal epiglottis, bilateral vallecula and hypopharynx. The pre-epiglottic and paraglottic adipose spaces are normal. Normal visualized bilateral piriform sinuses, aryepiglottic folds, vocal cords, and arytenoid-cricoid articulations. Normal subglottic trachea. Normal bilateral lobes of the thyroid gland. Normal visualized pulmonary apices. Normal visualized paranasal sinuses. Normal visualized cervical spine. CT/Soft Tissue Neck WITH Contrast IMPRESSION: Normal enhanced CT examination of the soft tissues of the neck. Palpable abnormality corresponds to the normal left submandibular gland. Electronically Signed: Ralph Moon MD at 17:01 EDT ,
== END | disposition home or self-care (01) ==
LOC: CT 13:36
PROVIDERS: PCP Family Medicine Geriatric Medicine; Visit Provider Family Medicine Geriatric Medicine
DX: R59.9 Enlarged lymph nodes, unspecified (principal)
CPT/HCPCS: 70491; Q9967

== ENCOUNTER → 2022-04-15 | Outpatient (CLI) | payer MEDICAID, SELFPAY ==
--- NOTE | 2022-04-15 10:54 | BI_ITS ---
MAMMOGRAPHY - BILATERAL SCREENING REASON FOR EXAM: Female, 62 years old. Routine annual screening examination. PERTINENT HISTORY: Daughter with breast cancer. TECHNIQUE: Digital bilateral breast jessica (3D mammographic acquisition) in the CC and MLO projections. 2-D mediolateral oblique (MLO) and craniocaudad (CC) views of both breasts were obtained. CAD: Full Field Digital Mammography with Computer Added Detection was performed. COMPARISON: Comparison is made with prior study dated 02/11/2021 and 02/08/2019. FINDINGS: Breast Composition: The breasts are almost entirely fatty. There are no dominant masses or suspicious calcifications. No other significant abnormalities are identified. There has been no significant change since the prior study. BI/SCRN MAMM (CAD)W/JESSICA BILAT IMPRESSION: Stable bilateral screening mammogram. Yearly follow-up mammogram recommended. (A) ASSESSMENT CATEGORY: BIRADS Category 1: Negative. A letter regarding these results will be sent to the patient by the facility within 30 days. Approximately 10% of breast cancers are not detected by mammography. A normal mammogram should not delay biopsy of a clinically suspicious abnormality. [id number] Electronically Signed: Gamaliel Serrano MD at 12:30 EDT ,
== END | disposition home or self-care (01) ==
LOC: OPBI 10:53
PROVIDERS: PCP Family Medicine Geriatric Medicine; Visit Provider Internal Medicine Hematology & Oncology
DX: Z12.31 Encounter for screening mammogram for malignant neoplasm of breast (principal)
CPT/HCPCS: 77063; 77067

== ENCOUNTER → 2022-04-23 | Outpatient (CLI) | payer OTHER, SELFPAY ==
--- NOTE | 2022-04-23 14:49 | RAD_ITS ---
STUDY: X-RAY - LEFT HAND REASON FOR EXAM: Female, 62 years old. HAND PAIN TECHNIQUE: 3 view(s) of the hand. COMPARISON: None. FINDINGS: Severe osteoarthritis articulation greater multangular with base of first metacarpal. Severe osteoarthritis distal second and third interphalangeal joints. Moderate osteoarthritis articulation greater multangular and distal pole of scaphoid. Moderate osteoarthritis distal fourth and fifth interphalangeal joints. Soft tissues normal. RAD/Hand Min 3 Views IMPRESSION: Osteoarthritis as above. Electronically Signed: Ronny Guillory MD, SHANTAL at 17:51 EDT ,
[2022-04-23 16:37] LABS: Absolute Lymphocyte Count 1.28 X10^3/uL (0.83-4.51); Absolute Neutrophil Count 3.8 X10^3/uL (2.0-7.7); Basophil# 0.05 X10^3/uL; Basophil% 0.9 % (0-1); Eosinophil# 0.11 X10^3/uL; Eosinophils% 1.9 % (0-5); Hemoglobin 13.5 g/dL (12.0-15.0); Lymphocyte # 1.28 X10^3/ul (0.83-4.51); Mean Corp Hgb Conc 32.1 g/dL (32-36); Mean Corpuscular Hgb 33.7 pg (27.0-32.0); Mean Corpuscular Volume 104.7 fL (81-99); Mean Platelet Vol. 10.3 fl (6.2-12.0); Monocyte# 0.55 X10^3/uL; Monocyte% 9.5 % (0-10); NRBC Flagged by Analyzer 0 % (0-5); Neutrophil # 3.81 X10^3/uL (2.7-7.7); Neutrophil % 65.5 % (47-70); Platelet Count 272 K/mm3 (150-450); RBC Distribution Width CV 13.2 % (11.6-14.6); RBC Distribution Width SD 51.4 fl (35.1-43.9); Red Blood Count 4.01 M/mm3 (4.2-5.4); White Blood Count 5.8 K/mm3 (4.4-11.0)
[2022-04-23 16:46] LABS: Erythrocyte Sedimentation Rate 34 mm/hr (0-30)
[2022-04-23 17:09] LABS: Anion Gap 4 (5-15); BUN 10 mg/dL (7-18); CRP < 2.90 mg/L (0.0-3.0); Calcium,Total 8.9 mg/dL (8.5-10.1); Chloride 108 mmol/L (98-107); Creatinine, Serum 0.71 mg/dL (0.55-1.02); EST Glomerular Filtration Rate 88 mL/min (>60); Est Glom Filt Rate - Afr Amer 106 mL/min (>60); Glucose 147 mg/dL (74-106); Potassium 3.9 mmol/L (3.5-5.1); Sodium Level 141 mmol/L (136-145)
== END | disposition home or self-care (01) ==
LOC: POLAB3 14:41 → RAD 14:47
PROVIDERS: PCP Family Medicine Geriatric Medicine; Visit Provider Family Medicine Geriatric Medicine
DX: M79.642 Pain in left hand (principal)
CPT/HCPCS: 36415; 73130; 80048; 85025; 85652; 86140

== ENCOUNTER → 2022-06-02 | Outpatient (CLI) | payer OTHER, SELFPAY | END | disposition home or self-care (01) | LOC: POLAB3 12:40 | PROVIDERS: PCP Family Medicine Geriatric Medicine; Visit Provider Family Medicine Geriatric Medicine | DX: E55.9 Vitamin D deficiency, unspecified (principal); I10 Essential (primary) hypertension | CPT/HCPCS: 36415; 80053; 82306; 84443 ==

== ENCOUNTER → 2022-06-11 | Outpatient (CLI) | payer OTHER, SELFPAY ==
[2022-06-11 17:27] LABS: Absolute Lymphocyte Count 1.27 X10^3/uL (0.83-4.51); Absolute Neutrophil Count 2.7 X10^3/uL (2.0-7.7); Basophil# 0.06 X10^3/uL; Basophil% 1.3 % (0-1); Eosinophil# 0.11 X10^3/uL; Eosinophils% 2.3 % (0-5); Hematocrit 45.2 % (37-47); Hemoglobin 14.9 g/dL (12.0-15.0); Lymphocyte # 1.27 X10^3/ul (0.83-4.51); Lymphocyte % 26.8 % (19-41); Mean Corpuscular Hgb 34.5 pg (27.0-32.0); Mean Corpuscular Volume 104.6 fL (81-99); Mean Platelet Vol. 10.1 fl (6.2-12.0); Monocyte# 0.59 X10^3/uL; Monocyte% 12.4 % (0-10); NRBC Flagged by Analyzer 0 % (0-5); Neutrophil # 2.71 X10^3/uL (2.7-7.7); Neutrophil % 57.2 % (47-70); Platelet Count 238 K/mm3 (150-450); RBC Distribution Width CV 12.6 % (11.6-14.6); RBC Distribution Width SD 48.8 fl (35.1-43.9); Red Blood Count 4.32 M/mm3 (4.2-5.4); White Blood Count 4.7 K/mm3 (4.4-11.0)
[2022-06-11 18:29] LABS: AST(SGOT) 16 U/L (15-37); Alanine Aminotransfer ALT/SGPT 23 U/L (13-56); Albumin, Serum 3.6 g/dL (3.2-5.0); Alkaline Phosphatase 127 U/L (45-117); Anion Gap 6 (5-15); BUN 11 mg/dL (7-18); Calcium,Total 9.1 mg/dL (8.5-10.1); Chloride 109 mmol/L (98-107); Creatinine, Serum 0.74 mg/dL (0.55-1.02); EST Glomerular Filtration Rate 85 mL/min (>60); Est Glom Filt Rate - Afr Amer 102 mL/min (>60); Globulin 3.6 g/dL (2.2-4.2); Glucose 115 mg/dL (74-106); Potassium 3.9 mmol/L (3.5-5.1); Protein, Total 7.2 g/dL (6.4-8.2); Sodium Level 141 mmol/L (136-145); Thyroid Stim Hormone (TSH) 1.03 uIU/mL (0.358-3.74)
== END | disposition home or self-care (01) ==
LOC: POLAB3 13:17
PROVIDERS: PCP Family Medicine Geriatric Medicine; Visit Provider Family Medicine Geriatric Medicine
DX: E55.9 Vitamin D deficiency, unspecified (principal); I10 Essential (primary) hypertension
CPT/HCPCS: 36415; 80053; 82306; 84443; 85025

== ENCOUNTER → 2022-11-27 | Outpatient (CLI) | payer OTHER, SELFPAY ==
[2022-11-27 19:52] LABS: M R Staph aureus DNA By PCR Negative (Negative); Probe Check PASS; Staph aureus DNA By PCR NEGATIVE (Negative)
== END | disposition home or self-care (01) ==
LOC: LABSPEC 15:37
PROVIDERS: PCP Family Medicine Geriatric Medicine; Visit Provider Family Medicine Geriatric Medicine
DX: L03.114 Cellulitis of left upper limb (principal)
CPT/HCPCS: 87070; 87077; 87205; 87640

== ENCOUNTER → 2022-12-11 | Outpatient (CLI) | payer OTHER, SELFPAY ==
[2022-12-11 15:46] LABS: Absolute Lymphocyte Count 1.66 X10^3/uL (0.83-4.51); Absolute Neutrophil Count 4.5 X10^3/uL (2.0-7.7); Basophil# 0.07 X10^3/uL; Eosinophil# 0.11 X10^3/uL; Eosinophils% 1.5 % (0-5); Hemoglobin 14.3 g/dL (12.0-15.0); Lymphocyte # 1.66 X10^3/ul (0.83-4.51); Lymphocyte % 23.3 % (19-41); Mean Corp Hgb Conc 32.5 g/dL (32-36); Mean Corpuscular Hgb 34.8 pg (27.0-32.0); Mean Corpuscular Volume 107.1 fL (81-99); Mean Platelet Vol. 10.4 fl (6.2-12.0); Monocyte# 0.71 X10^3/uL; NRBC Flagged by Analyzer 0 % (0-5); Neutrophil # 4.54 X10^3/uL (2.7-7.7); Neutrophil % 63.8 % (47-70); Platelet Count 300 K/mm3 (150-450); RBC Distribution Width CV 12.5 % (11.6-14.6); RBC Distribution Width SD 50.1 fl (35.1-43.9); Red Blood Count 4.11 M/mm3 (4.2-5.4); White Blood Count 7.1 K/mm3 (4.4-11.0)
[2022-12-11 16:08] LABS: Vitamin D,25 Hydroxy 43.1 ng/mL
[2022-12-11 16:16] LABS: ALB/GLOB Ratio 1.1 RATIO (0.9-2.4); AST(SGOT) 18 U/L (15-37); Alanine Aminotransfer ALT/SGPT 21 U/L (13-56); Albumin, Serum 3.8 g/dL (3.2-5.0); Alkaline Phosphatase 135 U/L (45-117); Anion Gap 5 (5-15); BUN 10 mg/dL (7-18); BUN/Creat Ratio 13.1 RATIO (10-20); Calcium,Total 9.4 mg/dL (8.5-10.1); Chloride 107 mmol/L (98-107); Cholesterol 188 mg/dL (200); Creatinine, Serum 0.76 mg/dL (0.55-1.02); EST Glomerular Filtration Rate 81 mL/min (>60); Est Glom Filt Rate - Afr Amer 98 mL/min (>60); Globulin 3.5 g/dL (2.2-4.2); Glucose 101 mg/dL (74-106); High Density Lipoprotein 40 mg/dL; Potassium 3.8 mmol/L (3.5-5.1); Protein, Total 7.3 g/dL (6.4-8.2); Sodium Level 138 mmol/L (136-145); Triglycerides 154 mg/dL; Very Low Density Lipoprotein 31 mg/dL (5-40)
== END | disposition home or self-care (01) ==
LOC: LAB 14:06
PROVIDERS: PCP Family Medicine Geriatric Medicine; Referring Provider Family Medicine Geriatric Medicine; Visit Provider Family Medicine Geriatric Medicine
DX: E55.9 Vitamin D deficiency, unspecified (principal); I10 Essential (primary) hypertension
CPT/HCPCS: 36415; 80053; 80061; 82306; 84443; 85025

== ENCOUNTER → 2022-12-18 | Outpatient (CLI) | payer OTHER, SELFPAY ==
--- NOTE | 2022-12-18 15:57 | RAD_ITS ---
STUDY: X-RAY - PELVIS AND LEFT HIP REASON FOR EXAM: Female, 62 years old. HIP PAIN TECHNIQUE: 3 views of the pelvis and hip. COMPARISON: None. FINDINGS: There is a non-specific bowel gas pattern. Normal visualized soft tissue structures. Normal bilateral iliac wings, sacroiliac joints and visualized sacrum. Normal bilateral superior and inferior pubic rami. Normal pubic symphysis. Normal bilateral ischial tuberosities. Normal visualized femoral head. Normal acetabulum. Normal hip joint. RAD/HIP, UNI W/ Pelvis 2-3 Views IMPRESSION: Normal x-ray examination of the pelvis and hip. Electronically Signed: Willy Harman MD at 19:30 EDT ,
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
== END | disposition home or self-care (01) ==
LOC: RAD 15:55
PROVIDERS: PCP Family Medicine Geriatric Medicine; Referring Provider Family Medicine Geriatric Medicine; Visit Provider Family Medicine Geriatric Medicine
DX: M51.9 Unspecified thoracic, thoracolumbar and lumbosacral intervertebral disc disorder (principal); M25.552 Pain in left hip; M79.18 Myalgia, other site
CPT/HCPCS: 72110; 73502

== ENCOUNTER → 2023-05-05 | Outpatient (CLI) | payer MEDICARE, SELFPAY ==
--- NOTE | 2023-05-05 12:28 | BI_ITS ---
MAMMOGRAPHY - BILATERAL SCREENING REASON FOR EXAM: Female, 63 years old. Routine annual screening examination. PERTINENT HISTORY: Daughter with breast cancer. TECHNIQUE: Digital bilateral breast jessica (3D mammographic acquisition) in the CC and MLO projections. 2-D mediolateral oblique (MLO) and craniocaudad (CC) views of both breasts were obtained. CAD: Full Field Digital Mammography with Computer Added Detection was performed. COMPARISON: Comparison is made with prior study April 15, 2022 and February 11, 2021. FINDINGS: Breast Composition: There are scattered areas of fibroglandular density. There are no dominant masses or suspicious calcifications. No other significant abnormalities are identified. There has been no significant change since the prior study. BI/SCRN MAMM (CAD)W/JESSICA BILAT IMPRESSION: Stable bilateral screening mammogram. Yearly follow-up mammogram recommended. (A) ASSESSMENT CATEGORY: BIRADS Category 1: Negative. A letter regarding these results will be sent to the patient by the facility within 30 days. Approximately 10% of breast cancers are not detected by mammography. A normal mammogram should not delay biopsy of a clinically suspicious abnormality. [id number] Electronically Signed: Gamaliel Serrano MD at 14:29 EDT ,
== END | disposition home or self-care (01) ==
LOC: OPBI 12:27
PROVIDERS: PCP Family Medicine Geriatric Medicine; Referring Provider Internal Medicine Hematology & Oncology; Visit Provider Internal Medicine Hematology & Oncology
DX: Z12.31 Encounter for screening mammogram for malignant neoplasm of breast (principal)
CPT/HCPCS: 77063; 77067

== ENCOUNTER → 2023-05-14 | Outpatient (CLI) | payer MEDICARE, SELFPAY | END | disposition home or self-care (01) | PROVIDERS: PCP Family Medicine Geriatric Medicine; Referring Provider Family Medicine Geriatric Medicine; Visit Provider Family Medicine Geriatric Medicine | DX: R68.83 Chills (without fever) (principal) | CPT/HCPCS: 87635; 87804; 87807; C9803 ==

== ENCOUNTER → 2023-06-09 | Outpatient (CLI) | payer MEDICARE, SELFPAY ==
[2023-06-09 14:40] LABS: Absolute Lymphocyte Count 1.24 X10^3/uL (0.83-4.51); Absolute Neutrophil Count 3.6 X10^3/uL (2.0-7.7); Basophil# 0.05 X10^3/uL; Basophil% 0.9 % (0-1); Eosinophil# 0.11 X10^3/uL; Eosinophils% 2.1 % (0-5); Hematocrit 41.3 % (37-47); Hemoglobin 13.2 g/dL (12.0-15.0); Lymphocyte # 1.24 X10^3/ul (0.83-4.51); Lymphocyte % 23.1 % (19-41); Mean Corpuscular Hgb 34.6 pg (27.0-32.0); Mean Corpuscular Volume 108.4 fL (81-99); Mean Platelet Vol. 9.5 fl (6.2-12.0); Monocyte% 7.5 % (0-10); NRBC Flagged by Analyzer 0 % (0-5); Neutrophil # 3.55 X10^3/uL (2.7-7.7); Neutrophil % 66.2 % (47-70); Platelet Count 282 K/mm3 (150-450); RBC Distribution Width CV 14.5 % (11.6-14.6); RBC Distribution Width SD 57.1 fl (35.1-43.9); Red Blood Count 3.81 M/mm3 (4.2-5.4); White Blood Count 5.4 K/mm3 (4.4-11.0)
[2023-06-09 15:32] LABS: ALB/GLOB Ratio 0.9 RATIO (0.9-2.4); AST(SGOT) 11 U/L (15-37); Alanine Aminotransfer ALT/SGPT 21 U/L (13-56); Albumin, Serum 3.3 g/dL (3.2-5.0); Alkaline Phosphatase 130 U/L (45-117); Anion Gap 4 (5-15); BUN 11 mg/dL (7-18); BUN/Creat Ratio 14.2 RATIO (10-20); Calcium,Total 8.7 mg/dL (8.5-10.1); Chloride 109 mmol/L (98-107); Creatinine, Serum 0.77 mg/dL (0.55-1.02); EST Glomerular Filtration Rate 80 mL/min (>60); Est Glom Filt Rate - Afr Amer 96 mL/min (>60); Globulin 3.5 g/dL (2.2-4.2); Glucose 141 mg/dL (74-106); Potassium 3.8 mmol/L (3.5-5.1); Protein, Total 6.8 g/dL (6.4-8.2); Sodium Level 141 mmol/L (136-145); Thyroid Stim Hormone (TSH) 1.26 uIU/mL (0.358-3.74)
== END | disposition home or self-care (01) ==
LOC: POLAB3 13:24
PROVIDERS: PCP Family Medicine Geriatric Medicine; Visit Provider Family Medicine Geriatric Medicine
DX: I10 Essential (primary) hypertension (principal); E55.9 Vitamin D deficiency, unspecified
CPT/HCPCS: 36415; 80053; 82306; 84443; 85025

== ENCOUNTER → 2023-08-26 | Outpatient (CLI) | payer MEDICARE, SELFPAY ==
[2023-08-26 12:40] LABS: Absolute Lymphocyte Count 1.75 X10^3/uL (0.83-4.51); Absolute Neutrophil Count 6.9 X10^3/uL (2.0-7.7); Basophil# 0.06 X10^3/uL; Basophil% 0.6 % (0-1); Eosinophil# 0.06 X10^3/uL; Eosinophils% 0.6 % (0-5); Hematocrit 37.7 % (37-47); Hemoglobin 12.1 g/dL (12.0-15.0); Lymphocyte # 1.75 X10^3/ul (0.83-4.51); Lymphocyte % 17.6 % (19-41); Mean Corp Hgb Conc 32.1 g/dL (32-36); Mean Corpuscular Hgb 33.5 pg (27.0-32.0); Mean Corpuscular Volume 104.4 fL (81-99); Mean Platelet Vol. 9.9 fl (6.2-12.0); Monocyte# 1.12 X10^3/uL; Monocyte% 11.3 % (0-10); NRBC Flagged by Analyzer 0 % (0-5); Neutrophil # 6.91 X10^3/uL (2.7-7.7); Neutrophil % 69.7 % (47-70); Platelet Count 295 K/mm3 (150-450); RBC Distribution Width CV 12.4 % (11.6-14.6); RBC Distribution Width SD 47.9 fl (35.1-43.9); Red Blood Count 3.61 M/mm3 (4.2-5.4); White Blood Count 9.9 K/mm3 (4.4-11.0)
[2023-08-26 13:19] LABS: Iron 14 ug/dL (50-170)
== END | disposition home or self-care (01) ==
LOC: POLAB3 11:15
PROVIDERS: PCP Family Medicine Geriatric Medicine; Visit Provider Family Medicine Geriatric Medicine
DX: D50.9 Iron deficiency anemia, unspecified (principal)
CPT/HCPCS: 36415; 83540; 85025

== ENCOUNTER → 2023-12-18 | Outpatient (CLI) | payer MEDICARE, SELFPAY ==
[2023-12-18 11:35] LABS: Absolute Lymphocyte Count 1.53 X10^3/uL (0.83-4.51); Absolute Neutrophil Count 3.4 X10^3/uL (2.0-7.7); Basophil# 0.07 X10^3/uL; Basophil% 1.2 % (0-1); Eosinophils% 1.8 % (0-5); Hematocrit 34.3 % (37-47); Hemoglobin 10.5 g/dL (12.0-15.0); Lymphocyte # 1.53 X10^3/ul (0.83-4.51); Lymphocyte % 26.8 % (19-41); Mean Corp Hgb Conc 30.6 g/dL (32-36); Mean Corpuscular Hgb 34.8 pg (27.0-32.0); Mean Corpuscular Volume 113.6 fL (81-99); Mean Platelet Vol. 9.6 fl (6.2-12.0); Monocyte# 0.55 X10^3/uL; Monocyte% 9.6 % (0-10); NRBC Flagged by Analyzer 0 % (0-5); Neutrophil # 3.41 X10^3/uL (2.7-7.7); Neutrophil % 59.9 % (47-70); Platelet Count 289 K/mm3 (150-450); RBC Distribution Width CV 13.9 % (11.6-14.6); RBC Distribution Width SD 57.8 fl (35.1-43.9); Red Blood Count 3.02 M/mm3 (4.2-5.4); White Blood Count 5.7 K/mm3 (4.4-11.0)
[2023-12-18 11:48] LABS: Vitamin D,25 Hydroxy 15.2 ng/mL
[2023-12-18 11:56] LABS: ALB/GLOB Ratio 1.2 RATIO (0.9-2.4); AST(SGOT) 22 U/L (15-37); Alanine Aminotransfer ALT/SGPT 37 U/L (13-56); Albumin, Serum 3.4 g/dL (3.2-5.0); Alkaline Phosphatase 94 U/L (45-117); Anion Gap 3 (5-15); BUN 12 mg/dL (7-18); BUN/Creat Ratio 16.7 RATIO (10-20); Calcium,Total 8.7 mg/dL (8.5-10.1); Chloride 110 mmol/L (98-107); Creatinine, Serum 0.72 mg/dL (0.55-1.02); EST Glomerular Filtration Rate 86 mL/min (>60); Est Glom Filt Rate - Afr Amer 104 mL/min (>60); Globulin 2.9 g/dL (2.2-4.2); Glucose 104 mg/dL (74-106); Potassium 3.7 mmol/L (3.5-5.1); Protein, Total 6.3 g/dL (6.4-8.2); Sodium Level 142 mmol/L (136-145); Thyroid Stim Hormone (TSH) 2.41 uIU/mL (0.358-3.74)
== END | disposition home or self-care (01) ==
LOC: POLAB3 10:35
PROVIDERS: PCP Family Medicine Geriatric Medicine; Visit Provider Family Medicine Geriatric Medicine
DX: I10 Essential (primary) hypertension (principal); E55.9 Vitamin D deficiency, unspecified
CPT/HCPCS: 36415; 80053; 82306; 84443; 85025

== ENCOUNTER → 2024-01-11 | Outpatient (CLI) | payer MEDICARE, SELFPAY ==
--- NOTE | 2024-01-11 17:05 | RAD_ITS ---
STUDY: X-RAY - LEFT HUMERUS REASON FOR EXAM: Female, 63 years old. FALL/CONCUSSION TECHNIQUE: 2 view(s) of the humerus. COMPARISON: None. FINDINGS: Normal visualized humerus. There is no demonstrated fracture or osseous destructive process. There is no demonstrated soft tissue abnormality. RAD/Humerus min 2 Views IMPRESSION: Normal x-ray examination of the humerus. Electronically Signed: Ralph Moon MD at 21:42 EDT ,
--- NOTE | 2024-01-11 17:05 | RAD_ITS ---
STUDY: X-RAY - CERVICAL SPINE REASON FOR EXAM: Female, 63 years old. FALL/ CONCUSSION TECHNIQUE: 3 view(s) of the cervical spine were obtained. COMPARISON: None FINDINGS: Normal anterior atlantoaxial articulation. Normal odontoid process. Normal cervical lordosis. 2 mm retrolisthesis of C5 on C6. There is multi-level endplate spondylosis. There is multi-level degenerative disc disease with multilevel disc space narrowing. Normal visualized intervertebral neuroforamina. The soft tissue structures are unremarkable. RAD/Cerv Spine 2 or 3 Views IMPRESSION: Degenerative disc disease lower cervical spine with 2 mm retrolisthesis of C5 on C6. MRI may be useful. Electronically Signed: Ralph Moon MD at 21:46 EDT ,
--- NOTE | 2024-01-11 17:05 | RAD_ITS ---
STUDY: X-RAY - LEFT RADIUS AND ULNA REASON FOR EXAM: Female, 63 years old. FALL/ CONCUSSION TECHNIQUE: 2 view(s) of the forearm. COMPARISON: None. FINDINGS: There is no demonstrated soft tissue swelling. Normal visualized radius. Normal visualized ulna. RAD/Forearm 2 Views IMPRESSION: Normal x-ray examination of the radius and ulna. Electronically Signed: Ralph Moon MD at 21:39 EDT ,
--- NOTE | 2024-01-11 18:05 | RAD_ITS ---
STUDY: X-RAY - LEFT SHOULDER REASON FOR EXAM: Female, 63 years old. FALL/ CONCUSSION TECHNIQUE: 4 view(s) of the shoulder. COMPARISON: None. FINDINGS: There is mild degenerative arthrosis of the glenohumeral articulation. There is degenerative arthrosis of the acromioclavicular joint without inferior osseous spur formation. Normal acromion. Normal humeral head and visualized proximal humerus. The soft tissue structures are unremarkable. Normal visualized pulmonary apex. RAD/Shoulder min 2 Views IMPRESSION: Mild glenohumeral and acromioclavicular joint arthrosis Electronically Signed: Ralph Moon MD at 21:38 EDT ,
== END | disposition home or self-care (01) ==
LOC: RAD 16:52
PROVIDERS: PCP Family Medicine Geriatric Medicine; Referring Provider Family Medicine Geriatric Medicine; Visit Provider Family Medicine Geriatric Medicine
DX: S06.0XAA Concussion with loss of consciousness status unknown, initial encounter (principal); R22.32 Localized swelling, mass and lump, left upper limb; W19.XXXA Unspecified fall, initial encounter
CPT/HCPCS: 72040; 73030; 73060; 73090

== ENCOUNTER → 2024-01-12 | Outpatient (CLI) | payer MEDICARE, SELFPAY ==
--- NOTE | 2024-01-12 09:55 | VDUE_ITS ---
Reason For Study: Left arm swelling Left Proximal Left jugular vein is spontaneous, widely patent, phasic, with no intraluminal echogenicity noted. Left subclavian vein is spontaneous, widely patent, phasic, with no intraluminal echogenicity noted. Left Arm Left axillary vein is spontaneous, patent, phasic, competent, compressible and demonstrates augmentation. Left brachial vein is compressible. Left cephalic vein is compressible. Left basilic vein is compressible. Left Lower Arm Left radial vein is compressible. Left ulnar vein is compressible. Patient Safety Preliominary report given to Dr. Gutierrez. VL/Venous Duplex US, Unilateral Interpretation Summary Deep veins of the left upper extremity are patent and compressible segmentally. There is no evidence of deep vein thrombosis. The superficial veins of the left upper extremity, the basilic and cephalic veins, are patent and compressible. There is no evidence of left upper extremit y superficial thrombophlebitis involving the veins imaged. Ordering Physician: Martin Gutierrez Chi Referring Physician: Martin Gutierrez Chi Performed By: Krysta Patel RVT ???
--- NOTE | 2024-01-12 09:55 | CT_ITS ---
EXAM: CT HEAD WITHOUT INTRAVENOUS CONTRAST CLINICAL INDICATION: CONCUSSION TECHNIQUE: Multiple axial images were obtained of the head without intravenous contrast. This CT exam was performed using one or more of the following dose reduction techniques: automated exposure control, adjustment of the mA and/or kV according to patient size, and/or use of iterative reconstruction technique. COMPARISON: No relevant prior studies available. FINDINGS: BRAIN AND EXTRA-AXIAL SPACES: Normal. Normal brain attenuation. No intra- or extra-axial hemorrhage. No acute infarct. No intracranial mass or mass effect. There is preservation of the macias/white matter interface. Posterior fossa structures are unremarkable. Ventricles are appropriate for age. No hydrocephalus. Basal cisterns are patent. BONES/JOINTS: Normal calvarium. SINUSES: No acute sinusitis. MASTOID AIR CELLS: Normal. Clear. CT/Brain/Head without Contrast IMPRESSION: Normal CT brain without intravenous contrast. Electronically Signed: Mason Montgomery MD at 10:23 EDT ,
== END | disposition home or self-care (01) ==
LOC: CT 09:49
PROVIDERS: PCP Family Medicine Geriatric Medicine; Referring Provider Family Medicine Geriatric Medicine; Visit Provider Family Medicine Geriatric Medicine
DX: R22.32 Localized swelling, mass and lump, left upper limb (principal); S06.0XAA Concussion with loss of consciousness status unknown, initial encounter; W19.XXXA Unspecified fall, initial encounter
CPT/HCPCS: 70450; 93971

== ENCOUNTER → 2024-05-11 | Outpatient (CLI) | payer MEDICARE, SELFPAY ==
--- NOTE | 2024-05-11 16:05 | RAD_ITS ---
STUDY: X-RAY - LUMBAR SPINE REASON FOR EXAM: Female, 64 years old. LOWER BACK PAIN TECHNIQUE: 4 view(s) of the lumbar spine were obtained including oblique views. COMPARISON: Comparison is made with prior study December 18, 2022. FINDINGS: There is an exaggerated lumbar lordosis. There is no substantial scoliosis. 1 anterior listhesis of L5 on S1 without spondylolysis most likely secondary to facet joint osteoarthritis. Normal vertebral bodies and endplates. Disc space narrowing at the L5-S1 level. Facet joint osteoarthritis. There is atherosclerotic calcification of the abdominal aorta without a demonstrated aneurysm. RAD/L/S Spine Min 4 Views IMPRESSION: Degenerative changes of the spine, as detailed above. Grade 1 anterolisthesis of L5 on S1 without spondylolysis. Electronically Signed: Gamaliel Serrano MD at 9:18 EDT ,
== END | disposition home or self-care (01) ==
LOC: RAD 16:02
PROVIDERS: PCP Family Medicine Geriatric Medicine; Referring Provider Family Medicine Geriatric Medicine; Visit Provider Family Medicine Geriatric Medicine
DX: M54.50 Low back pain, unspecified (principal)
CPT/HCPCS: 72110

== ENCOUNTER → 2024-05-23 | Outpatient (CLI) | payer MEDICARE, SELFPAY ==
--- NOTE | 2024-05-23 12:59 | RAD_ITS ---
STUDY: X-RAY - LUMBAR SPINE REASON FOR EXAM: Female, 64 years old. Radiculopathy, lumbar region. TECHNIQUE: Lateral flexion and extension view(s) of the lumbar spine were obtained. COMPARISON: May 11, 2024 FINDINGS: Normal lumbar lordosis. 6 mm of anterolisthesis of L4 on L5 on flexion which is stable in flexion and extension. Diffuse moderate lower thoracic and lumbosacral facet sclerosis. Mild diffuse intervertebral disc space narrowing most marked at L4-5 and L5-S1. Vascular calcification. RAD/L/S Spine Bending Flex/Ext IMPRESSION: Anterolisthesis of L4 on L5 which does not change in flexion and extension. Mild diffuse lower thoracic and lumbosacral facet sclerosis most marked at L4-5 and L5-S1. Electronically Signed: Marshal Rosales MD at 13:32 EDT ,
== END | disposition home or self-care (01) ==
LOC: RAD 12:54
PROVIDERS: PCP Family Medicine Geriatric Medicine; Referring Provider Anesthesiology Pain Medicine; Visit Provider Anesthesiology Pain Medicine
DX: M54.16 Radiculopathy, lumbar region (principal)
CPT/HCPCS: 72120

== ENCOUNTER → 2024-06-13 | Outpatient (CLI) | payer MEDICARE, SELFPAY ==
--- NOTE | 2024-06-13 11:00 | MRI_ITS ---
EXAM: MR LUMBAR SPINE WITHOUT INTRAVENOUS CONTRAST CLINICAL INDICATION: LOW BACK PAIN AND BURNING INTO L LEG TECHNIQUE: Multiplanar and multisequence MR images of the lumbar spine without intravenous contrast. COMPARISON: No relevant prior studies available. FINDINGS: VERTEBRAE: Mildly accentuated lumbar lordosis. Normal vertebral body height. No bone marrow edema. SPINAL CORD: Normal. Normal position and signal intensity of the conus medullaris. SOFT TISSUES: Normal. DISCS/SPINAL CANAL/NEURAL FORAMINA: T12-L1: Moderate disc space narrowing associated with circumferential disc bulging with mild impression on the thecal sac. No spinal or neural foraminal stenosis. L1-L2: Normal. Normal disc height and morphology. Normal spinal canal and lateral recesses. Normal neuroforamina. L2-L3: Normal. Normal disc height and morphology. Normal spinal canal and lateral recesses. Normal neuroforamina. L3-L4: Normal. Normal disc height and morphology. Normal spinal canal and lateral recesses. Normal neuroforamina. L4-L5: No significant disc space narrowing. Approximately 2.5 mm of anterior listhesis of L4 on L5. No spondylolysis. Mild disc bulging, ligamentous hypertrophy and facet arthropathy results in moderate spinal stenosis and mild bilateral neural foraminal narrowing. L5-S1: A proximally 4 mm of anterior listhesis of L5 on S1 without spondylolysis. No disc protrusion or spinal stenosis. Facet arthropathy present causing mild narrowing of the right neural foramen. Intact spinal canal and left neural foramen. MRI/Spine Lumbar (Routine) IMPRESSION: 1. Mild anterior listhesis of L4 on L5 and L5 on S1 without spondylolysis. 2. Moderate L4-5 spinal stenosis related to posterior ligamentous hypertrophy and facet arthropathy. Electronically Signed: Mason Montgomery MD at 15:09 EDT ,
== END | disposition home or self-care (01) ==
LOC: MRI 10:45
PROVIDERS: PCP Family Medicine Geriatric Medicine; Referring Provider Family Medicine Geriatric Medicine; Visit Provider Family Medicine Geriatric Medicine
DX: M54.50 Low back pain, unspecified (principal); M54.32 Sciatica, left side
CPT/HCPCS: 72148

== ENCOUNTER → 2024-06-15 | Outpatient (CLI) | payer MEDICARE, SELFPAY ==
[2024-06-15 11:48] LABS: Absolute Lymphocyte Count 1.18 X10^3/uL (0.83-4.51); Absolute Neutrophil Count 4.6 X10^3/uL (2.0-7.7); Basophil# 0.03 X10^3/uL; Basophil% 0.5 % (0-1); Eosinophil# 0.08 X10^3/uL; Eosinophils% 1.2 % (0-5); Hematocrit 38.6 % (37-47); Hemoglobin 11.9 g/dL (12.0-15.0); Lymphocyte # 1.18 X10^3/ul (0.83-4.51); Lymphocyte % 17.9 % (19-41); Mean Corp Hgb Conc 30.8 g/dL (32-36); Mean Corpuscular Hgb 34.3 pg (27.0-32.0); Mean Corpuscular Volume 111.2 fL (81-99); Mean Platelet Vol. 9.4 fl (6.2-12.0); Monocyte% 10.6 % (0-10); NRBC Flagged by Analyzer 0 % (0-5); Neutrophil # 4.57 X10^3/uL (2.7-7.7); Neutrophil % 69.5 % (47-70); Platelet Count 256 K/mm3 (150-450); RBC Distribution Width CV 13.4 % (11.6-14.6); RBC Distribution Width SD 55.8 fl (35.1-43.9); Red Blood Count 3.47 M/mm3 (4.2-5.4); White Blood Count 6.6 K/mm3 (4.4-11.0)
[2024-06-15 12:21] LABS: ALB/GLOB Ratio 1.1 RATIO (0.9-2.4); AST(SGOT) 23 U/L (15-37); Alanine Aminotransfer ALT/SGPT 51 U/L (13-56); Albumin, Serum 3.1 g/dL (3.2-5.0); Alkaline Phosphatase 81 U/L (45-117); Anion Gap 3 (5-15); BUN 14 mg/dL (7-18); BUN/Creat Ratio 19.4 RATIO (10-20); Calcium,Total 9.6 mg/dL (8.5-10.1); Chloride 112 mmol/L (98-107); Creatinine, Serum 0.72 mg/dL (0.55-1.02); EST Glomerular Filtration Rate 86 mL/min (>60); Est Glom Filt Rate - Afr Amer 104 mL/min (>60); Globulin 2.9 g/dL (2.2-4.2); Glucose 103 mg/dL (74-106); Potassium 3.8 mmol/L (3.5-5.1); Sodium Level 143 mmol/L (136-145)
[2024-06-16 05:16] LABS: Vitamin D,25 Hydroxy 22.9 ng/mL
== END | disposition home or self-care (01) ==
LOC: POLAB3 11:31
PROVIDERS: PCP Family Medicine Geriatric Medicine; Visit Provider Family Medicine Geriatric Medicine
DX: I10 Essential (primary) hypertension (principal); E55.9 Vitamin D deficiency, unspecified
CPT/HCPCS: 36415; 80053; 82306; 84443; 85025

== ENCOUNTER → 2024-07-26 | Outpatient (CLI) | payer MEDICARE, SELFPAY ==
--- NOTE | 2024-07-26 12:46 | CT_ITS ---
STUDY: LOW DOSE CT LUNG CANCER SCREENING REASON FOR EXAM: Female, 64 years old. Lung cancer screening -- 24 pk yr hx;current smoker;asymptomatic RADIATION DOSAGE (If Supplied By Facility): CTDIvol = ( 3.02 ) mGy, DLP = ( 104.58 ) mGycm TECHNIQUE: No contrast was administered. Low dose technique was utilized (average mAS-38 and kVp 120). 1.25 mm axial source images with a slice interval of 1.25-mm were reconstructed in lung windows. 2.5 mm axial source images with a slice interval of 2.5-mm were reconstructed in lung windows. 5.0 mm axial source images with a slice interval of 5.0-mm were reconstructed in soft tissue windows. COMPARISON: Comparison is made with prior study dated March 20, 2021. NODULES: Since prior study, there has been a slight increase in size of the partially calcified nodule in the peripheral aspect of the left upper lobe as seen on axial image #84 and coronal image #101. This most likely represents a calcified granuloma. Emphysema: Hyperinflation. Stable mild degree of emphysematous changes. Endobronchial lesion: None Aorta: Atherosclerotic plaque formation of the aortic arch. CORONARY ARTERIES: Coronary artery calcification is seen. Heart: Unremarkable Pulmonary artery: Remarkable Mediastinal nodes: Small mediastinal lymph nodes. Other chest and abdominal findings: CT/Low Dose CT Lung Screening IMPRESSION: Lung-RADS category 2 - Continue annual screening with LDCT in 12 months. IMPORTANT NOTES FOR USE: ACR Lung-RADS Version 1.1 Assessment Categories Release Date: 2018 Category: Coded 0-4 bases on nodule(s) with highest degree of suspicion. Negative screen is defined as categories 1 and 2; a positive screen is defined as categories 3 and 4. Category 3 and 4A nodules that are unchanged on interval CT should be coded as category 2, and individuals returned to screening in 12 months. Category 4X: Category 3 or 4 nodules with additional imaging findings that increase the suspicion of lung cancer, such as spiculation, GGN that doubles in size in 1 year, enlarged lymph notes, etc. Category Modifiers: S (significant finding unrelated to lung cancer) Electronically Signed: Gamaliel Serrano MD at 13:24 EST ,
== END | disposition home or self-care (01) ==
LOC: CT 12:45
PROVIDERS: PCP Family Medicine Geriatric Medicine; Referring Provider Nurse Practitioner Family; Visit Provider Nurse Practitioner Family
DX: Z12.2 Encounter for screening for malignant neoplasm of respiratory organs (principal); Z87.891 Personal history of nicotine dependence
CPT/HCPCS: 71271

== ENCOUNTER 2024-09-26 15:48 | Inpatient (IN) | payer MEDICARE, SELFPAY ==
[2024-09-26] VITALS (10 sets, daily range): BP systolic 116–139; BP diastolic 51–84; PULSE 76–93; RESP 12–22; TEMP 36.5–36.9; O2SAT 83–94; BMI 28.5; BMI 28.3
--- NOTE | 2024-09-26 16:13 | EKG12_ITS ---
Test Reason : SOB Blood Pressure : */* mmHG Vent. Rate : 87 BPM Atrial Rate : 87 BPM P-R Int : 134 ms QRS Dur : 136 ms QT Int : 436 ms P-R-T Axes : 72 -46 30 degrees QTcB Int : 524 ms Normal sinus rhythm Left axis deviation Right bundle branch block Abnormal ECG Confirmed by LAUREN FAROOQ, HEMAL ([id number]), video news editor RAKAN RODRÍGUEZ ([id number]) on 09/27/2024 8:55:15 AM Referred By: Esperanza Myers Confirmed By: HEMAL AGUILAR MD
--- NOTE | 2024-09-26 16:17 | EDS_ITS ---
<Statement entered by Rafita Ruiz DO - 09/26/24 19:54> Patient was seen and examined with nurse practitioner Joaquín All components of the history and physical confirmed and agreed. History of present illness and physical exam: Patient is a 64-year-old female with a past medical history of tobacco use, hypothyroidism, DVT, hypertension, CVA, fibromyalgia who presents to the emergency department with chief complaint of cough and shortness of breath. States that she has been sick for approximately a week but knows that over the last 2 to 3 days that she has had decreased appetite and has been getting worse therefore they brought her here for the valuation management. Review of systems: Agree with above Physical exam: Agree with above MDM Patient is a 64-year-old female who presented to the emerged part with a chief complaint of cough and shortness of breath. On the differential diagnose includes but not limited to COPD exacerbation, pneumonia, upper respiratory infection secondary viral etiology. Patient CBC reviewed showed a white blood count of 5.2, hemoglobin 13, platelet count was noted be 209. Patient sodium was 135, potassium was mildly low at 3.4, creatinine normal at 0.69. Patient's lactic acid normal at 1.6. Patient chest x-ray reviewed by myself and by radiology and showed prominence of markings in the lower lung shirley. Patient test positive for influenza A. Given the patient is requiring oxygen when she is not at baseline she will require admission therefore case was discussed with hospitalist Dr. Myers who accept patient for admission. Patient was notified is agreeable this plan as well as family over the bedside all question concerns answered. Final impression: Influenza A Acute hypoxic respiratory failure Tobacco use Disposition: Patient will be admitted to the hospital further evaluation management Supervising attending attestation: Rafita Ruiz D.O. [facility] History of Present Illness Chief Complaint: Weakness Narrative Narrative: Patient is a 64-year-old female with history of hypertension hyperlipidemia, hypothyroidism, on chronic iron supplements presenting to the emergency department for 1 week of cough, shortness of breath. Over the last 2 to 3 days, the family is noticed change in the patient's appetite, the patient not eating and drinking, the patient is not getting up. The patient is having more rhonchorous breath sounds and they are here for evaluation. Patient does normally smoke half a pack a day. Denies any nausea or vomiting. Patient states that she just feels tired and is sleeping all the time. [facility] Medical History (Updated 09/26/24 @ 18:47 by MARIAN Bill) Tobacco use disorder, continuous Iron deficiency anemia due to chronic blood loss History of stress test Depression Hypothyroidism GERD (gastroesophageal reflux disease) Smoker Coronary artery disease Hypertension DVT (deep venous thrombosis) TIA (transient ischemic attack) Anemia Macrocytosis Nicotine dependence Chronic GI bleeding Peripheral vascular disease Non-rheumatic aortic stenosis Dysarthria Atherosclerosis of coronary artery of [place] heart without angina pectoris Essential (primary) hypertension Encounter for screening for lung cancer Bilateral carotid artery stenosis Pernicious anemia Sleep apnea IBS (irritable bowel syndrome) History of DVT (deep vein thrombosis) Diarrhea Nausea & vomiting LEFT ARM SURGERY BLOOD CLOT Gastrointestinal bleed CVA (cerebral vascular accident) Hyperlipidemia Fibromyalgia Expressive language disorder Dysarthria Home Medications ?Medication ?Instructions ?Recorded ?Last Taken ?Type nitroglycerin 0.4 mg sublingual 0.4 mg sublingual Q5-1 5M PRN chest 10/14/17 2 Months Ago Rx tablet pain #25 tabs ~10/03/17 levothyroxine 25 mcg tablet 25 mcg PO DAILY thyroid 03/08/21 History rosuvastatin 40 mg tablet 40 mg PO QDAY Check with [facility] 04/09/18 Unknown History doctor acetaminophen 500 mg tablet 1,000 mg PO Q6H PRN Headac he 03/09/21 Unknown History (Tylenol Extra Strength) aspirin 81 mg tablet,delayed 81 mg PO DAILY 07/26/21 U nknown History release (Adult Low Dose Aspirin) famotidine 40 mg tablet 40 mg PO DAILY 07/26/21 Unkn own History ferrous sulfate 325 mg (65 mg 650 mg PO BID 04/15/23 U nknown History iron) tablet duloxetine 60 mg capsule,delayed 60 mg PO BID 09/30/23 Unknown History release (Cymbalta) baclofen 10 mg tablet 10 mg PO DAILY 09/26/24 Unkn own History gabapentin 100 mg capsule 100 mg PO DAILY 09/26/24 Unk nown History vitamins A,C,[id number]-czvd-qdqnrn 4,296 1 cap PO DAILY Unknown History mcg-226 mg-90 mg capsule (PreserVision AREDS) Allergy/AdvReac Type Severity Reaction Status Date / Time atorvastatin (From Lipitor) AdvReac Severe Other Verified 09/26/24 16:04 codeine AdvReac Severe Other Verified 09/26/24 16:04 Family History Father , at age 38, from [place] Myocardial infarction cardiomopathy Mother Atrial fibrillation Hypertension Hyperlipidemia Diabetes Brother CAD (coronary artery disease) cardiomopathy Myocardial infarction Sister cardiomopathy Surgical History History of endoscopy S/P tubal ligation H/O cardiac catheterization History of cataract removal with insertion of prosthetic lens 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) Hx of bilateral cataract extraction History of coronary artery stent placement (12/20/08) History of left-sided carotid endarterectomy (01/2019) Hx of appendectomy Social History adopted: No Smoking Status: Current every day smoker tobacco type: cigarettes Tobacco: How many years used: 50 Electronic Cigarette Use: not used second hand exposure: Yes quit status: has quit before alcohol intake: former year quit: 2017 substance use type: does not use caffeine: Yes Type: coffee Number of servings: 2 what type of physical activity do you participate in: none seatbelt use: sometimes do you feel safe at home: Yes ROS ROS ED ROS Narrative Constitutional: Negative for weight loss. Positive fever, chills, weakness Eyes: Negative for vision loss, vision change, double vision ENT: Negative for any sore throat, ear pain, congestion Cardiovascular: Negative for any chest pain, tightness, palpitations Respiratory: Positive for any cough, sputum production, hemoptysis, dyspnea, dyspnea on exertion, orthopnea Gastrointestinal: Negative for any abdominal pain, nausea, vomiting, diarrhea, constipation, blood in stool, blood in vomit : Negative for any urinary frequency, dysuria, retention, blood in urine Muscle skeletal: Negative for any neck pain, back pain. Positive myalgia Neurological: Negative for any headache, syncope, dizziness Skin: Negative for any rashes, itching, abrasions, lacerations Psychiatric: Negative for any depression, anxiety, stress, suicidal ideation, homicidal ideation Hematologic: Negative for any excessive bruising, easy bleeding EXAM Physical Exam Narrative Exam Narrative: Vital signs reviewed. Patient on room air was 83%, on 5 L, the patient is between 91 to 94%. HEET: Head normocephalic atraumatic, TMs clear bilaterally. Posterior pharynx is clear, moist mucous membranes. Nares clear bilaterally. Neck: Supple with no lymphadenopathy or tenderness. No signs of meningismus. Cardiac: Regular rate and rhythm, positive systolic murmur, no gallops, no rubs, equal peripheral pulses bilaterally. Respiratory: Rhonchorous breath sounds throughout, expiratory wheezes, rales to the right lower to mid lobes. No chest tenderness. Abdomen: Soft, nontender, nondistended. No abdominal bruit or pulsatile masses. No hepatosplenomegaly Extremities: No peripheral edema, no signs of gross trauma or deformity. Active full range of motion of all extremities. Neuro: Cranial nerves II through XII intact, no focal neurological deficits. Skin: Clean dry and intact with no rash, purpura, petechiae, vesicles or pust ules. Backs/flank: No CVA tenderness, no midline spinal tenderness, no deformity. Psych: Normal mood and affect. No SI, HI or acute psychosis. Const Vital Signs: 09/26/24 15:49 09/26/24 15:56 09/26/24 16:04 Temperature 98.5 F 98.0 F Temperature Source Oral Oral Pulse Rate 93 87 Respiratory Rate 22 H 16 Respiratory Effort Short of Breath Respiratory Pattern Normal Blood Pressure 128/83 H 139/84 H Blood Pressure Mean 98 102 Pulse Ox 83 93 Oxygen Delivery Method Room Air Nasal Cannula Oxygen Flow Rate (L/min) 5 09/26/24 16:13 09/26/24 16:30 09/26/24 16:56 Temperature 97.9 F Temperature Source Oral Pulse Rate 79 81 Respiratory Rate 12 16 Respiratory Effort Respiratory Pattern Normal Blood Pressure 128/59 H Blood Pressure Mean 82 Pulse Ox 92 Oxygen Delivery Method Nasal Cannula Nasal Cannula Oxygen Flow Rate (L/min) 5 5 09/26/24 17:00 09/26/24 17:00 09/26/24 18:00 Temperature 97.9 F 98.0 F Temperature Source Oral Oral Pulse Rate 81 84 82 Respiratory Rate 16 16 16 Respiratory Effort Respiratory Pattern Blood Pressure 120/66 120/66 128/61 H Blood Pressure Mean 84 84 83 Pulse Ox 93 92 93 Oxygen Delivery Method Nasal Cannula Nasal Cannula Nasal Cannula Oxygen Flow Rate (L/min) 5 5 5 09/26/24 18:32 Temperature 98.5 F Temperature Source Pulse Rate 82 Respiratory Rate 16 Respiratory Effort Respiratory Pattern Blood Pressure 128/61 H Blood Pressure Mean 83 Pulse Ox 93 Oxygen Delivery Method Oxygen Flow Rate (L/min) Positive well nourished and well developed General Appearance ED: well developed MDM MDM Lab Data Labs: Laboratory Results - last 24 hr 09/26/24 09/26/24 09/26/24 15:56 16:25 17:15 WBC 5.2 RBC 3.74 L Hgb 13.0 Hct 39.0 MCV 104.3 H MCH 34.8 H MCHC 33.3 RDW Std Deviation 46.0 H RDW Coeff of Dao 12.1 Plt Count 209 MPV 10.3 Immature Gran % (Auto) 0.800 Neut % (Auto) 68.4 Lymph % (Auto) 17.4 L Pickett % (Auto) 13.2 H Eos % (Auto) 0.0 Baso % (Auto) 0.2 Absolute Neuts (auto) 3.6 Absolute Lymphs (auto) 0.91 Nucleated RBC % 0 Sodium 135 L Potassium 3.4 L Chloride 99 Carbon Dioxide 28.0 Anion Gap 8 BUN 18 Creatinine 0.69 Estim Creat Clear Calc 76.53 Est GFR (MDRD) Af Amer 109 Est GFR (MDRD) Non-Af 90 BUN/Creatinine Ratio 26.1 H Glucose 125 H Lactic Acid 1.6 Calcium 8.9 POC Glucose 129 H Radiography Diagnostic Testing: Clinical Impression(s) from Imaging Studies Chest X-Ray 09/26/24 17:53 IMPRESSION: Prominent interstitial markings in the lower lungs. Can not exclude developing inflammatory process. Reading Location: [facility] Treatment and Re-Evaluation :: Differential diagnosis includes however is not limited to: COVID-19, influenza, RSV, community-acquired pneumonia, fluid overload On my initial evaluation, patient was hypoxic on room air, patient placed on 5 L. Patient looks ill-appearing however I do not believe that she is toxic. Patient's physical examination was consistent with more of a respiratory infectious picture. Patient will receive some basic laboratory values, EKG, chest x-ray. All radiologic examinations were read, reviewed by the emergency department attending. From these reads, a plan of care will be put in place. Breathing treatments, IV steroids, Patient CT scan was unremarkable, patient's chemistries show no acute process, lactic acid was negative. Chest x-ray showed no acute process. Patient was positive for influenza A. At this time, secondary to the increased oxygen demand, patient is on 5 L at 93%. Patient will need admitted to the hospital. I will reach out to the hospitalist Discharge Plan Triage Chief Complaint: Weakness ED Midlevel Provider: Joaquín Patel ED Provider: Rafita Ruiz Dx/Rx/DC Orders Clinical Impression: Influenza A, Hypoxia Prescriptions: No Action nitroglycerin 0.4 mg tablet, sublingual 0.4 mg sublingual Q5-15M PRN (Reason: chest pain) Qty: 25 3RF Rx Instructions: until response; do not exceed 3 doses per event rosuvastatin 40 mg tablet 40 mg PO QDAY ferrous sulfate 325 mg (65 mg iron) tablet 650 mg PO BID famotidine 40 mg tablet 40 mg PO DAILY Patient Comments: pt states she does not take this every day aspirin [Adult Low Dose Aspirin] 81 mg tablet,delayed release (DR/EC) 81 mg PO DAILY Patient Comments: pt states she does not take this on sundays levothyroxine 25 MCG tablet 25 mcg PO DAILY duloxetine [Cymbalta] 60 mg capsule,delayed release(DR/EC) 60 mg PO BID acetaminophen [Tylenol Extra Strength] 500 mg Tablet 1,000 mg PO Q6H PRN (Reason: Headache) baclofen 10 mg tablet 10 mg PO DAILY gabapentin 100 mg capsule 100 mg PO DAILY PreserVision AREDS 4,296 mcg-226 mg-90 mg capsule 1 cap PO DAILY Primary Care Provider: Martin Gutierrez Chi Referrals: Martin Gutierrez Chi, MD [Primary Care Provider] - Print Language: Lao Disposition Disposition: Acute Care Hospital [facility]
[2024-09-26 16:24] LABS: Bedside Glucose 129 mg/dL (74-106)
[2024-09-26] MEDS: Albuterol 2.5 MG/3 ML VIAL.NEB. 5 MG INHALATION (16:28)
[2024-09-26] MEDS: Ipratropium/Albuterol Sulfate 3 ML AMPUL.NEB INHALATION (16:28)
[2024-09-26 16:40] LABS: Absolute Lymphocyte Count 0.91 X10^3/uL (0.83-4.51); Absolute Neutrophil Count 3.6 X10^3/uL (2.0-7.7); Basophil# 0.01 X10^3/uL; Basophil% 0.2 % (0-1); Lymphocyte # 0.91 X10^3/ul (0.83-4.51); Lymphocyte % 17.4 % (19-41); Mean Corp Hgb Conc 33.3 g/dL (32-36); Mean Corpuscular Hgb 34.8 pg (27.0-32.0); Mean Corpuscular Volume 104.3 fL (81-99); Mean Platelet Vol. 10.3 fl (6.2-12.0); Monocyte# 0.69 X10^3/uL; Monocyte% 13.2 % (0-10); NRBC Flagged by Analyzer 0 % (0-5); Neutrophil # 3.58 X10^3/uL (2.7-7.7); Neutrophil % 68.4 % (47-70); Platelet Count 209 K/mm3 (150-450); RBC Distribution Width CV 12.1 % (11.6-14.6); Red Blood Count 3.74 M/mm3 (4.2-5.4); White Blood Count 5.2 K/mm3 (4.4-11.0)
[2024-09-26] MEDS: 0.9% Normal Saline (1000mL) 1,000 ML 999 ML IV (16:41)
[2024-09-26] MEDS: MethylPREDNISolone 125 MG/2 ML Vial 60 MG IV (16:41)
[2024-09-26] MEDS: Acetaminophen 500 MG Tablet 1000 MG PO (16:41)
[2024-09-26 16:51] LABS: Anion Gap 8 (5-15); BUN 18 mg/dL (7-18); BUN/Creat Ratio 26.1 RATIO (10-20); Calcium,Total 8.9 mg/dL (8.5-10.1); Chloride 99 mmol/L (98-107); Creatinine, Serum 0.69 mg/dL (0.55-1.02); EST Glomerular Filtration Rate 90 mL/min (>60); Est Glom Filt Rate - Afr Amer 109 mL/min (>60); Estimated Creatinine Clearance 76.53 ml/min; Glucose 125 mg/dL (74-106); Potassium 3.4 mmol/L (3.5-5.1); Sodium Level 135 mmol/L (136-145)
--- NOTE | 2024-09-26 17:53 | RAD_ITS ---
PROCEDURE: CHEST PA AND LATERAL REASON FOR EXAM: Cough. TECHNIQUE: Frontal and lateral projections of the chest including upper abdomen. COMPARISON: None.. FINDINGS: Lungs are clear of pneumonia and congestion. Prominent interstitial markings in the lung bases. No pleural effusions, thickening, or pneumothorax. Heart and mediastinum are normal. Atherosclerotic aorta. No hilar masses. Bones and soft tissues are unremarkable. Cardiac monitoring leads overlie the chest wall. RAD/Chest PA and Lateral IMPRESSION: Prominent interstitial markings in the lower lungs. Can not exclude developing inflammatory process. Reading Location: [facility]
[2024-09-26 18:01] LABS: Lactic Acid 1.6 mmol/L (0.4-1.9)
--- NOTE | 2024-09-26 19:22 | HP.PCM.HOS_ITS ---
HPI - General General Date of Admission: 09/26/24 Date of Service: 09/26/24 Chief Complaint: Dyspnea, cough, fatigue, malaise. HPI Narrative The patient is a 64-year-old female with past medical history of CKD stage II per GFR trending, chronic anemia/iron deficiency anemia, anxiety and depression, hypothyroidism, GERD, tobacco use, history of VTE (DVT), CAD status post PCI, carotid disease status post left CEA, PAD status post arterial embolism and thrombosis lower extremity intervention, history of TIA, PVD, history CVA with chronic dysarthria, hypertension, hyperlipidemia, PATRICA not using PAP therapy, IBS, carotid disease who presents to the [facility] ED on 09/26/2024 with progressively worsening fatigue, malaise, headache, congestion, body aches, decreased appetite, chills without fever, cough and dyspnea worsening over the last week but more severe over the last 2 to 3 days with decreased appetite and poor oral intake as far as liquids with decreased ambulation attempts prompting family to bring patient in for evaluation. She states that her grandson lives with her and her and he recently was ill and had influenza. Thus far her has remained well. Workup in the ED T98.5, heart rate 93, BP 120/83, respiratory rate 22, initially 83% on room air with most recent repeat vitals T98.5, heart rate 82, BP 120/61, respiratory rate 16, 93% on 5 L nasal cannula, CBC with WBC 5.2, hgb 13, platelet 209 without marked shift, BMP with sodium 135, potassium 3.4 noted to be slightly hemolyzed this may be falsely increased, glucose 125, BUN/creatinine 18/0.69, GFR 90, glucose 125, lactic acid 1.6, chest x-ray with prominent initial markings in both lung concerning for inflammatory process developing, rapid SARS COVID/influenza/RSV PCR with positive influenza A. In the ED patient ministered 1 L normal saline, Tylenol 1000 mg p.o. x 1, DuoNeb and albuterol therapies as well as Solu-Medrol 60 mg IV x 1. [facility] Medical History Tobacco use disorder, continuous Iron deficiency anemia due to chronic blood loss History of stress test Depression Hypothyroidism GERD (gastroesophageal reflux disease) Smoker Coronary artery disease Hypertension DVT (deep venous thrombosis) TIA (transient ischemic attack) Anemia Macrocytosis Nicotine dependence Chronic GI bleeding Peripheral vascular disease Non-rheumatic aortic stenosis Dysarthria Atherosclerosis of coronary artery of gal[place] heart without angina pectoris Essential (primary) hypertension Encounter for screening for lung cancer Bilateral carotid artery stenosis Pernicious anemia Sleep apnea IBS (irritable bowel syndrome) History of DVT (deep vein thrombosis) Diarrhea Nausea & vomiting LEFT ARM SURGERY BLOOD CLOT Gastrointestinal bleed CVA (cerebral vascular accident) Hyperlipidemia Fibromyalgia Expressive language disorder Dysarthria Home Medications ?Medication ?Instructions ?Recorded ?Last Taken ?Type nitroglycerin 0.4 mg sublingual 0.4 mg sublingual Q5-1 5M PRN chest 10/14/17 2 Months Ago Rx tablet pain #25 tabs ~10/03/17 levothyroxine 25 mcg tablet 25 mcg PO DAILY thyroid 03/08/21 History rosuvastatin 40 mg tablet 40 mg PO QDAY Check with alexnadria cadet 04/09/18 Unknown History doctor acetaminophen 500 mg tablet 1,000 mg PO Q6H PRN Headac he 03/09/21 Unknown History (Tylenol Extra Strength) aspirin 81 mg tablet,delayed 81 mg PO DAILY 07/26/21 U nknown History release (Adult Low Dose Aspirin) famotidine 40 mg tablet 40 mg PO DAILY 07/26/21 Unkn own History ferrous sulfate 325 mg (65 mg 650 mg PO BID 04/15/23 U nknown History iron) tablet duloxetine 60 mg capsule,delayed 60 mg PO BID 09/30/23 Unknown History release (Cymbalta) baclofen 10 mg tablet 10 mg PO DAILY 09/26/24 Unkn own History gabapentin 100 mg capsule 100 mg PO DAILY 09/26/24 Unk nown History vitamins A,C,P-lrdk-jcshkw 4,296 1 cap PO DAILY Unknown History mcg-226 mg-90 mg capsule (PreserVision AREDS) Allergy/AdvReac Type Severity Reaction Status Date / Time atorvastatin (From Lipitor) AdvReac Severe Other Verified 09/26/24 16:04 codeine AdvReac Severe Other Verified 09/26/24 16:04 Family History Father , at age 38, from [place] Myocardial infarction cardiomopathy Mother Atrial fibrillation Hypertension Hyperlipidemia Diabetes Brother CAD (coronary artery disease) cardiomopathy Myocardial infarction Sister cardiomopathy Surgical History History of endoscopy S/P tubal ligation H/O cardiac catheterization History of cataract removal with insertion of prosthetic lens 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) Hx of bilateral cataract extraction History of coronary artery stent placement (12/20/08) History of left-sided carotid endarterectomy (01/2019) Hx of appendectomy Social History (Updated 09/26/24 @ 20:[address] Esperanza Myers MD) adopted: No household members: spouse and family Smoking Status: Current every day smoker tobacco type: cigarettes Smoking packs per day: 0.5 Smoking cigarettes per day: 10.0 Tobacco: How many years used: 50 Electronic Cigarette Use: not used second hand exposure: Yes quit status: has quit before alcohol intake: former year quit: 2017 substance use type: does not use caffeine: Yes Type: coffee Number of servings: 2 what type of physical activity do you participate in: none seatbelt use: sometimes do you feel safe at home: Yes ROS ROS Narrative Admission Review of Systems: CONSTITUTIONAL: No weight loss, fever, + chills, weakness or fatigue. HEENT: + Headache, congestion, rhinorrhea, sneezing. Eyes: No visual loss, blurred vision, double vision or yellow sclerae. Ears, Nose, Throat: No hearing loss, sore throat. SKIN: No rash or itching, lesions, wounds. CARDIOVASCULAR: No chest pain, chest pressure or chest discomfort, palpitations, edema, orthopnea, syncopal events. RESPIRATORY: + Dyspnea, cough without marked sputum production, wheezing. No hemoptysis. GASTROINTESTINAL: + Decreased appetite/anorexia. No nausea, vomiting or diarrhea, abdominal pain, melena, BRBPR. GENITOURINARY: No dysuria, frequency, urgency or retention. NEUROLOGICAL: + headache, generalized weakness. No dizziness, syncope, paralysis, ataxia, numbness or tingling in the extremities, focal weakness, change in bowel or bladder control, seizure. MUSCULOSKELETAL: + muscle, back pain, joint pain or stiffness. HEMATOLOGIC: + Chronic anemia/iron deficiency anemia, easy bleeding/bruising. LYMPHATICS: No enlarged nodes. No history of splenectomy. PSYCHIATRIC: + History of anxiety and depression. ENDOCRINOLOGIC: + reports of sweating, cold or heat intolerance. No polyuria or polydipsia. ALLERGIES: No history of asthma, hives, eczema or rhinitis. Vital Signs Vital Signs Vital Signs: 09/26/24 15:49 09/26/24 15:56 09/26/24 16:04 Temperature 98.5 F 98.0 F Temperature Source Oral Oral Pulse Rate 93 87 Respiratory Rate 22 H 16 Respiratory Effort Short of Breath Respiratory Pattern Normal Blood Pressure 128/83 H 139/84 H Blood Pressure Mean 98 102 Pulse Ox 83 93 Oxygen Delivery Method Room Air Nasal Cannula Oxygen Flow Rate (L/min) 5 09/26/24 16:13 09/26/24 16:30 09/26/24 16:56 Temperature 97.9 F Temperature Source Oral Pulse Rate 79 81 Respiratory Rate 12 16 Respiratory Effort Respiratory Pattern Normal Blood Pressure 128/59 H Blood Pressure Mean 82 Pulse Ox 92 Oxygen Delivery Method Nasal Cannula Nasal Cannula Oxygen Flow Rate (L/min) 5 5 09/26/24 17:00 09/26/24 17:00 09/26/24 18:00 Temperature 97.9 F 98.0 F Temperature Source Oral Oral Pulse Rate 81 84 82 Respiratory Rate 16 16 16 Respiratory Effort Respiratory Pattern Blood Pressure 120/66 120/66 128/61 H Blood Pressure Mean 84 84 83 Pulse Ox 93 92 93 Oxygen Delivery Method Nasal Cannula Nasal Cannula Nasal Cannula Oxygen Flow Rate (L/min) 5 5 5 09/26/24 18:32 Temperature 98.5 F Temperature Source Pulse Rate 82 Respiratory Rate 16 Respiratory Effort Respiratory Pattern Blood Pressure 128/61 H Blood Pressure Mean 83 Pulse Ox 93 Oxygen Delivery Method Oxygen Flow Rate (L/min) Weight Weight: 182 lb 8.684 oz Body Mass Index (BMI) 28.5 Physical Exam Narrative Physical Examination: General: Awake, alert, oriented x 3 and cooperative, seated upright in the ED bed, fatigued and ill-appearing. Skin: Normal color, normal turgor, no icterus, no cyanosis except for occasional stage ecchymoses, abrasion. HEENT: AT/NC, EOMI, PERRLA, moderately dry MM, no carotid bruits or JVD noted. Lungs: Significantly diminished, greater bilateral bases, bilaterally mildly rhonchorous, occasional end expiratory wheezing, no evidence of any distress, on supplemental oxygen now down to 3 L nasal cannula. Heart: Regular rate and rhythm; no gallop, rub audible. Abdomen: Soft, NTTP, ND, mildly hyperactive BS, no appreciated HSM. Extremities: No cyanosis, clubbing, or edema. Neurological: Patient awake, alert, oriented as noted, cognitive function intact; pupils equally reactive to light and accommodation, cranial nerves grossly normal, moving all 4 extremities, no focal deficits, strength moderately to severely globally decreased secondary to acute presentation. Psychiatric: Affect appears flat, fatigued, ill-appearing, no acute evidence of depressive or anxiety feelings but does have underlying history. Results Lab / Micro Data 09/26/24 16:25 09/26/24 16:25 Labs: Laboratory Results - last 24 hr 09/26/24 15:56: POC Glucose 129 H 09/26/24 16:25: WBC 5.2, RBC 3.74 L, Hgb 13.0, Hct 39.0, MCV 104.3 H, MCH 34.8 H , MCHC 33.3, RDW Std Deviation 46.0 H, RDW Coeff of Dao 12.1, Plt Count 209, MPV 10.3, Immature Gran % (Auto) 0.800, Neut % (Auto) 68.4, Lymph % (Auto) 17.4 L, M guido % (Auto) 13.2 H, Eos % (Auto) 0.0, Baso % (Auto) 0.2, Absolute Neuts (auto) 3.6, Absolute Lymphs (auto) 0.91, Nucleated RBC % 0, Sodium 135 L, Potassium 3.4 L, Chloride 99, Carbon Dioxide 28.0, Anion Gap 8, BUN 18, Creatinine 0.69, Estim Creat Clear Calc 76.53, Est GFR (MDRD) Af Amer 109, Est GFR (MDRD) Non-Af 90, B UN/Creatinine Ratio 26.1 H, Glucose 125 H, Calcium 8.9 09/26/24 17:15: Lactic Acid 1.6 Micro: Microbiology 09/26/24 16:25 Mucosa - Nose SARS-CoV-2, Influenza & RSV (PCR) - Final Influenzae A Imaging Radiology Impression Chest X-Ray 09/26/24 17:53 IMPRESSION: Prominent interstitial markings in the lower lungs. Can not exclude developing inflammatory process. Reading Location: [facility] Assessment & Plan Assessment/Plan (1) Influenza A: (2) Hypoxia: PLAN: Plan The patient is a 64-year-old female with past medical history of CKD stage II per GFR trending, chronic anemia/iron deficiency anemia, anxiety amd depression, hypothyroidism, GERD, tobacco use, history of VTE (DVT), CAD status post PCI, carotid disease status post left CEA, PAD status post arterial embolism and thrombosis lower extremity intervention, history of TIA, PVD, history CVA with chronic dysarthria, hypertension, hyperlipidemia, PATRICA not using PAP therapy, IBS, carotid disease who presents to the [facility] ED on 09/26/2024 with progressively worsening fatigue, malaise, cough and dyspnea worsening over the last week but more severe over the last 2 to 3 days with decreased appetite and poor oral intake as far as liquids with decreased ambulation attempts prompting family to bring patient in for evaluation. #1. Acute Hypoxia secondary to Acute Bilateral Influenza A Pneumonia: Will admit to [facility] telemetry, maintain on oxygen with wean as tolerated to room air, continue ATC duonebs, PRN albuterol, maintain IV Solu-Medrol, given timeline not candidate for Tamiflu, HOB, IS parameters w/ pending sputum cultures, full respiratory viral panel, procalcitonin and urine antigens to be cautious in case of superimposed bacterial pneumonia developing, PT/OT/case management consulted for discharge planning. #2. Hypokalemia: Admission K+ 3.4, likely more low than this is mildly hemolyzed, magnesium level requested, supplementation given, repeat level in AM. #3. Chronic Kidney Disease Stage II per GFR trending although has vastly: Admission BUN/Cr 18/0.69, GFR 90 although primarily recently per review in the 80 range, baseline renal function 0.6-0.7 primarily, repeat BMP in AM. #4. Anxiety and depression: We will continue patient home duloxetine regimen. #5. Chronic anemia/iron deficiency anemia: Admission hemoglobin 13, MCV 104.3, will continue to trend, continue iron supplementation. #6. Hypothyroidism: Continue home levothyroxine regimen. #7. History CVA: We will continue patient aspirin, statin, not on hypertensive regimen of note. #8. Carotid disease: Status post left CEA, continue aspirin, statin, not on hypertensive regimen per current list but clarifying. #9. CAD: Status post PCI, will continue aspirin, statin, not on beta-linn or DANETTE inhibitor/ARB per current list, clarifying #10. PAD: Per history reportedly arterial embolism and thrombosis of lower extremity status post intervention, continue aspirin, statin, not on hypertensive regimen per current list but clarifying. #11. Hypertension: Noted chart history, per current list did not appear to be on regimen, BP currently normal range, continue to monitor, as needed IV hydralazine interim. #12. Hyperlipidemia: Continue patient on statin therapy. #13. History of VTE: Patient with previous history DVT per chart history, not currently chronically anticoagulated. #14. GERD: We will continue patient on famotidine regimen. #15. Tobacco Abuse: Encouraged cessation, inpatient consultation per RT, NR if desired. #16. PATRICA: Denies using PAP therapy. #17. DVT prophylaxis: Lovenox. #18 CODE status: Patient notes having a living will in place but denies having a technical healthcare power of contract attorney assigned but notes her would be her medical decision-maker if necessary. Discussed CODE status at length including difference between FULL code, DNR-CCA and DNR-CC status. Following discussions about the differences in these status, requested Full Code status. Advanced Care Planning Face to Face Time: 16 minutes. Charges/Coding Visit Charges Inpatient E&M: 24062 Init Hosp L3 Procedures Hospitalists Procedures: 49811 Advncd Care Plan 30 Min
[2024-09-26 19:59] LABS: Magnesium 2.3 mg/dL (1.6-2.6)
[2024-09-26 20:15] LABS: Procalcitonin 0.14 ng/mL (0.00-0.09)
[2024-09-26] MEDS: 0.9% Normal Saline (1000mL) 1,000 ML 100 ML IV (20:50)
--- NOTE | 2024-09-26 21:05 | CASEMGMT ---
Care Management Face to Face with patient for initial transition planning/care coordination assessment in the ED. This adjusto writer operator introduced self and role at [facility]. Patient alert and oriented. Patient willing to participate in assessment and is able to answer all questions appropriately. Care providers, pharmacy, and demographics verified. Admitting Diagnosis: Influenza A, hypoxia Other diagnosis history: CKD stage II per GFR trending, chronic anemia/iron deficiency anemia, hypothyroidism, GERD, tobacco use, TIA, PVD PCP: Dr. Gutierrez Specialists: Dr. Ulloa Preferred Pharmacy: [facility] Insurance: [facility] Medicare Advantage Prescription Benefit: yes Living Will/HPOA: yes, patient's Enrique is HCPOA. Patient states Enrique may be able to bring in documents tomorrow, 09/27. LNOK: , Enrique. Son, Willie. Daughter, Rivka. Living Arrangements: with , son, and grandchildren (18 and 9 years old). 2 story home with 7 steps to enter, bedroom up full flight of stairs. Independent at baseline with all ADLs Transportation: patient drives DME: wheelchair and cane (patient does not use, but has access to); blood pressure cuff HHC: none SNF/Rehab: none Community Resources: food pantries on occasion Behavioral Health History: denies, but chart says anxiety and depression. Patient goals: Patient wishes to discharge home, denies need for home health care at this time. Patient states she has no further needs or concerns at this time. Patient states raising patient's grandchildren (patient's daughter's children) for the last 2 years when patient's daughter moved out. Patient states no concerns with meeting patient's grandchildren's needs. Disposition Plan: admission to acute; RN CM/SW to follow for discharge planning needs that may arise. Xochilt Soni, DELIVERY NURSE, ROLLING MILL [employer]ER
[2024-09-26] MEDS: Potassium Chloride Oral Tablet 20 MEQ 40 MEQ PO (21:45)
[2024-09-26] MEDS: Menthol/Lanolin/Calamine/Znox 113 GM Tube 1 APPLIC TOPICAL (21:46)
[2024-09-26] MEDS: DULoxetine Hcl 60 MG Capsule PO (21:47)
[2024-09-27] VITALS (14 sets, daily range): BP systolic 118–148; BP diastolic 52–68; PULSE 69–82; RESP 16–20; TEMP 36.4–36.6; O2SAT 91–95; BMI 28.4
[2024-09-27] MEDS: Levothyroxine 25 MCG TABLET PO (05:42)
[2024-09-27 07:41] LABS: Absolute Lymphocyte Count 0.31 X10^3/uL (0.83-4.51); Absolute Neutrophil Count 2.7 X10^3/uL (2.0-7.7); Basophil# 0.01 X10^3/uL; Basophil% 0.3 % (0-1); Hematocrit 33.4 % (37-47); Hemoglobin 10.8 g/dL (12.0-15.0); Lymphocyte # 0.31 X10^3/ul (0.83-4.51); Lymphocyte % 9.8 % (19-41); Mean Corp Hgb Conc 32.3 g/dL (32-36); Mean Corpuscular Hgb 34.2 pg (27.0-32.0); Mean Corpuscular Volume 105.7 fL (81-99); Monocyte# 0.14 X10^3/uL; Monocyte% 4.4 % (0-10); NRBC Flagged by Analyzer 0 % (0-5); Neutrophil # 2.66 X10^3/uL (2.7-7.7); Neutrophil % 84.5 % (47-70); POSITIVE DIFFERENTIAL YES; Platelet Count 172 K/mm3 (150-450); RBC Distribution Width SD 47.5 fl (35.1-43.9); Red Blood Count 3.16 M/mm3 (4.2-5.4); White Blood Count 3.2 K/mm3 (4.4-11.0)
[2024-09-27 08:17] LABS: ALB/GLOB Ratio 0.7 RATIO (0.9-2.4); AST(SGOT) 12 U/L (15-37); Alanine Aminotransfer ALT/SGPT 14 U/L (13-56); Albumin, Serum 2.4 g/dL (3.2-5.0); Alkaline Phosphatase 65 U/L (45-117); Anion Gap 6 (5-15); BUN 16 mg/dL (7-18); BUN/Creat Ratio 33.5 RATIO (10-20); Calcium,Total 8.5 mg/dL (8.5-10.1); Chloride 106 mmol/L (98-107); Creatinine, Serum 0.48 mg/dL (0.55-1.02); EST Glomerular Filtration Rate 138 mL/min (>60); Est Glom Filt Rate - Afr Amer 167 mL/min (>60); Estimated Creatinine Clearance 76.35 ml/min; Globulin 3.5 g/dL (2.2-4.2); Glucose 164 mg/dL (74-106); Potassium 3.8 mmol/L (3.5-5.1); Protein, Total 5.9 g/dL (6.4-8.2); Sodium Level 139 mmol/L (136-145)
[2024-09-27] MEDS: Ipratropium/Albuterol Sulfate 3 ML AMPUL.NEB INHALATION ×4 (08:22→20:32)
--- NOTE | 2024-09-27 08:57 | PCM.PN.HOSP ---
Reason for Visit Reason for Visit: Diagnoses Influenza due to other identified influenza virus with other respiratory manifestations (09/26/24) Hypoxemia (09/26/24) Subjective Subjective Patient is a 64-year-old lady who presented with progressive generalized weakness loss of appetite and cough over a week. Patient tested positive for acute influenza A virus. Admitted to regular nursing floor for further management Objective Data Objective Data Vital Signs: Vital Signs Temp Pulse Resp BP Pulse Ox O2 Del Method O2 Flow Rate 97.9 F 69 20 H 118/52 L 91 Nasal Cannula 4 09/27/24 03:00 09/27/24 07:47 09/27/24 03:00 09/27/24 03:00 09/27/24 03:49 09/27/24 03:49 09/27/24 03:49 Oxygen Flow Rate (L/min) 4 Oxygen Delivery Method Nasal Cannula Weight: 82.4 kg Body Mass Index (BMI) 28.4 Intake & Output: Intake and Output for Last 24 Hours 09/25/24 09/26/24 09/27/24 23:59 23:59 23:59 Intake Total 1000 / 1150 250 / 250 Balance 1000 / 1150 250 / 250 Lab / Micro Data 09/27/24 07:21 09/27/24 07:21 Labs: Laboratory Results - last 24 hr 09/26/24 15:56: POC Glucose 129 H 09/26/24 16:25: WBC 5.2, RBC 3.74 L, Hgb 13.0, Hct 39.0, MCV 104.3 H, MCH 34.8 H, MCHC 33.3, RDW Std Deviation 46.0 H, RDW Coeff of Dao 12.1, Plt Count 209, MPV 10.3, Immature Gran % (Auto) 0.800, Neut % (Auto) 68.4, Lymph % (Auto) 17.4 L, [place] % (Auto) 13.2 H, Eos % (Auto) 0.0, Baso % (Auto) 0.2, Absolute Neuts (auto) 3.6, Absolute Lymphs (auto) 0.91, Nucleated RBC % 0, Sodium 135 L, Potassium 3.4 L, Chloride 99, Carbon Dioxide 28.0, Anion Gap 8, BUN 18, Creatinine 0.69, Estim Creat Clear Calc 76.53, Est GFR (MDRD) Af Amer 109, Est GFR (MDRD) Non-Af 90, BUN/Creatinine Ratio 26.1 H, Glucose 125 H, Calcium 8.9, Magnesium 2.3 09/26/24 17:15: Lactic Acid 1.6 09/26/24 19:44: Procalcitonin 0.14 H 09/27/24 07:21: WBC 3.2 L, RBC 3.16 L, Hgb 10.8 L, Hct 33.4 L, MCV 105.7 H, MCH 34.2 H, MCHC 32.3, RDW Std Deviation 47.5 H, RDW Coeff of Dao 12.0, Plt Count 172, MPV 10.0, Immature Gran % (Auto) 1.000 H, Neut % (Auto) 84.5 H, Lymph % (Auto) 9.8 L, [place] % (Auto) 4.4, Eos % (Auto) 0.0, Baso % (Auto) 0.3, Absolute Neuts (auto) 2.7, Absolute Lymphs (auto) 0.31 L, Nucleated RBC % 0, Sodium 139, Potassium 3.8, Chloride 106, Carbon Dioxide 27.0, Anion Gap 6, BUN 16, Creatinine 0.48 L, Estim Creat Clear Calc 76.35, Est GFR (MDRD) Af Amer 167, Est GFR (MDRD) Non-Af 138, BUN/Creatinine Ratio 33.5 H, Glucose 164 H, Calcium 8.5, Total Bilirubin 0.20, AST 12 L, ALT 14, Alkaline Phosphatase 65, Total Protein 5.9 L, Albumin 2.4 L, Globulin 3.5, Albumin/Globulin Ratio 0.7 L Micro: Microbiology 09/27/24 00:40 Mucosa - Nasopharyngeal Respiratory Panel (PCR) - Final 09/26/24 16:25 Mucosa - Nose SARS-CoV-2, Influenza & RSV (PCR) - Final Influenzae A Radiography Diagnostic Testing: Radiology Impression Chest X-Ray 09/26/24 17:53 IMPRESSION: Prominent interstitial markings in the lower lungs. Can not exclude developing inflammatory process. [facility] Physical Exam Narrative GENERAL: cooperative HEENT: Atraumatic; normocephalic EYES; Anicteric, Normal Conjunctiva NECK; supple, normal thyroid, RESPIRATORY: Diminished to auscultation CARDIOVASCULAR: Regular S1 S2, GI: soft, normoactive bowel sounds, : No Renal angle tenderness; EXTREMITIES: No edema, no clubbing, MUSCULOSKELETAL: no muscle wasting NEURO: Awake; no lateralizing signs. SKIN: No Rash PSYCH; Flat affect Assessment & Plan Assessment/Plan (1) Influenza A: (2) Hypoxia: PLAN: Plan Patient is a 64-year-old lady who presented with progressive generalized weakness loss of appetite and cough over a week. Patient tested positive for acute influenza A virus. Admitted to regular nursing floor for further management 1. Acute hypoxia ? Secondary to acute influenza A pneumonia. Patient was deemed to be outside the window for Tamiflu admitted to regular nursing floor for symptom management 2. Hypokalemia ? Corrected per protocol 3. Dyslipidemia ?Patient is on statin therapy, continued at home dose 4. Anemia ? Secondary to chronic disorder monitoring H&H and transfuse if patient becomes symptomatic or hemoglobin falls below 7. With patient having microcytosis ordered B12 levels as well as iron studies 5. Hypothyroidism ? Patient is on levothyroxine home dose continued 6. Coronary artery disease ? With previous PCI. Patient is on aspirin as well as rosuvastatin 7. Peripheral arterial disease ? With previous left CEA patient is on rosuvastatin and aspirin 8. Dyslipidemia ?Patient is on statin therapy, continued at home dose chart history, not currently chronically anticoagulated. 9. History of VTE ? Patient patient was treated with thrombectomy followed by systemic anticoagulation 10. Tobacco dependence ? Counseled on cessation, offered nicotine patch for tobacco cravings 11. DVT prophylaxis ? On enoxaparin Time spent in the patient's overall evaluation,decision-making process, review of diagnostic data, adjustment of management, discussion with other providers, nursing nursing and ancillary staff involved in patient's care documentation, 50 Minutes
[2024-09-27] MEDS: Aspirin E.C. 81 MG Tablet PO (10:56)
[2024-09-27] MEDS: Famotidine 20 MG Tablet 40 MG PO (10:56)
[2024-09-27] MEDS: DULoxetine Hcl 60 MG Capsule PO ×2 (10:56→21:14)
[2024-09-27] MEDS: Gabapentin 100 MG Capsule PO (10:56)
[2024-09-27] MEDS: Enoxaparin 40 MG/0.4 ML Syringe SC (10:56)
[2024-09-27] MEDS: Baclofen 10 MG Tablet PO (10:56)
[2024-09-27] MEDS: ROSUVASTATIN CALCIUM 40 MG TABLET PO (10:59)
[2024-09-27] MEDS: Menthol/Lanolin/Calamine/Znox 113 GM Tube 1 APPLIC TOPICAL (10:59)
[2024-09-27] MEDS: Ferrous Sulfate 325 MG Tablet 650 MG PO ×2 (14:21→18:48)
[2024-09-27] MEDS: guaiFENesin 10 ML UDC (200MG/10ML) PO (14:22)
[2024-09-27] MEDS: 0.9% Saline Lock 10 ML Syringe IV ×2 (14:22→15:00)
[2024-09-27] MEDS: Acetaminophen 325 MG Tablet 650 MG PO ×2 (14:22→21:19)
[2024-09-27] MEDS: BENZOCAINE/MENTHOL 1 LOZENGE MUCOUS MEM (14:23)
[2024-09-28] VITALS (10 sets, daily range): BP systolic 113–134; BP diastolic 50–61; PULSE 75–87; RESP 16–20; TEMP 36.4–36.6; O2SAT 87–95; BMI 28.4
[2024-09-28 05:19] LABS: Absolute Lymphocyte Count 0.56 X10^3/uL (0.83-4.51); Absolute Neutrophil Count 5.5 X10^3/uL (2.0-7.7); Basophil# 0.01 X10^3/uL; Basophil% 0.2 % (0-1); Hematocrit 33.7 % (37-47); Hemoglobin 10.8 g/dL (12.0-15.0); Lymphocyte # 0.56 X10^3/ul (0.83-4.51); Lymphocyte % 8.5 % (19-41); Mean Corpuscular Hgb 34.3 pg (27.0-32.0); Mean Platelet Vol. 10.2 fl (6.2-12.0); Monocyte% 7.6 % (0-10); NRBC Flagged by Analyzer 0 % (0-5); Neutrophil # 5.47 X10^3/uL (2.7-7.7); Neutrophil % 83.2 % (47-70); POSITIVE DIFFERENTIAL YES; Platelet Count 210 K/mm3 (150-450); RBC Distribution Width CV 12.2 % (11.6-14.6); RBC Distribution Width SD 47.8 fl (35.1-43.9); Red Blood Count 3.15 M/mm3 (4.2-5.4); White Blood Count 6.6 K/mm3 (4.4-11.0)
[2024-09-28 05:46] LABS: Anion Gap 6 (5-15); BUN 20 mg/dL (7-18); BUN/Creat Ratio 38.9 RATIO (10-20); Calcium,Total 8.8 mg/dL (8.5-10.1); Chloride 105 mmol/L (98-107); Creatinine, Serum 0.51 mg/dL (0.55-1.02); EST Glomerular Filtration Rate 127 mL/min (>60); Est Glom Filt Rate - Afr Amer 154 mL/min (>60); Estimated Creatinine Clearance 76.35 ml/min; Glucose 176 mg/dL (74-106); Magnesium 2.7 mg/dL (1.6-2.6); Phosphorus 3.9 mg/dL (2.5-4.9); Potassium 4.2 mmol/L (3.5-5.1); Sodium Level 138 mmol/L (136-145)
[2024-09-28] MEDS: Levothyroxine 25 MCG TABLET PO (05:51)
[2024-09-28] MEDS: BENZOCAINE/MENTHOL 1 LOZENGE MUCOUS MEM (05:55)
[2024-09-28] MEDS: Ipratropium/Albuterol Sulfate 3 ML AMPUL.NEB INHALATION ×2 (07:22→10:26)
[2024-09-28] MEDS: ROSUVASTATIN CALCIUM 40 MG TABLET PO (09:11)
[2024-09-28] MEDS: Gabapentin 100 MG Capsule PO (09:11)
[2024-09-28] MEDS: Enoxaparin 40 MG/0.4 ML Syringe SC (09:11)
[2024-09-28] MEDS: Famotidine 20 MG Tablet 40 MG PO (09:11)
[2024-09-28] MEDS: Baclofen 10 MG Tablet PO (09:11)
[2024-09-28] MEDS: Aspirin E.C. 81 MG Tablet PO (09:12)
[2024-09-28] MEDS: DULoxetine Hcl 60 MG Capsule PO (09:13)
--- NOTE | 2024-09-28 09:54 | PCM.DC.SUM ---
Providers Date of Admission: 09/26/24 Date of Discharge: 09/28/24 Primary Care Physician: Dr. Martin Gutierrez MD Reason For Visit: HYPOXIA INFLUENZA A Diagnosis Discharge Diagnosis (1) Influenza A: Status: Acute Code(s): J10.1 - Influenza due to other identified influenza virus with other respiratory manifestations (2) Hypoxia: Status: Acute Code(s): R09.02 - Hypoxemia Plan Patient is a 64-year-old lady who presented with progressive generalized weakness loss of appetite and cough over a week. Patient tested positive for acute influenza A virus. Admitted to regular nursing floor for further management 1. Acute hypoxia ? Secondary to acute influenza A pneumonia. Patient was deemed to be outside the window for Tamiflu admitted to regular nursing floor for symptom management 2. Hypokalemia ? Corrected per protocol 3. Dyslipidemia ?Patient is on statin therapy, continued at home dose 4. Anemia ? Secondary to chronic disorder monitoring H&H and transfuse if patient becomes symptomatic or hemoglobin falls below 7. With patient having microcytosis ordered B12 levels as well as iron studies 5. Hypothyroidism ? Patient is on levothyroxine home dose continued 6. Coronary artery disease ? With previous PCI. Patient is on aspirin as well as rosuvastatin 7. Peripheral arterial disease ? With previous left CEA patient is on rosuvastatin and aspirin 8. Dyslipidemia ?Patient is on statin therapy, continued at home dose chart history, not currently chronically anticoagulated. 9. History of VTE ? Patient patient was treated with thrombectomy followed by systemic anticoagulation 10. Tobacco dependence ? Counseled on cessation, offered nicotine patch for tobacco cravings 11. DVT prophylaxis ? On enoxaparin Time spent in the patient's overall evaluation,decision-making process, review of diagnostic data, adjustment of management, discussion with other providers, nursing nursing and ancillary staff involved in patient's care documentation, 35 Minutes Medications at Discharge Home Medications nitroglycerin 0.4 mg sublingual tablet 0.4 mg sublingual Q5-15M PRN chest pain #25 tabs 10/14/17 levothyroxine 25 mcg tablet 25 mcg PO DAILY thyroid 11/30/17 rosuvastatin 40 mg tablet 40 mg PO QDAY hld 04/09/18 acetaminophen 500 mg tablet (Tylenol Extra Strength) 1,000 mg PO Q6H PRN Headache 03/09/21 aspirin 81 mg tablet,delayed release (Adult Low Dose Aspirin) 81 mg PO DAILY blood thinner 12/03/21 famotidine 40 mg tablet 40 mg PO DAILY gerd 07/26/21 ferrous sulfate 325 mg (65 mg iron) tablet 650 mg PO BID iron 04/15/23 duloxetine 60 mg capsule,delayed release (Cymbalta) 60 mg PO BID depression 09/30/23 baclofen 10 mg tablet 10 mg PO DAILY spasms 09/26/24 gabapentin 100 mg capsule 100 mg PO DAILY pain 09/26/24 vitamins A,C,L-bore-ofrqor 4,296 mcg-226 mg-90 mg capsule (PreserVision AREDS) 1 cap PO DAILY supplement 09/26/24 albuterol sulfate 90 mcg/actuation aerosol inhaler 2 puff inhalation Q6H PRN shortness of breath or wheezing #8.5 grams 09/28/24 doxycycline hyclate 100 mg capsule 100 mg PO BID #14 caps 09/28/24 guaifenesin 600 mg tablet, extended release 12 hr (Mucinex) 1,200 mg (2 x 600 mg) PO BID #20 tabs 09/28/24 prednisone 20 mg tablet 20 mg PO BID #10 tabs 09/28/24 Physical Exam Narrative GENERAL: cooperative HEENT: Atraumatic; normocephalic EYES; Anicteric, Normal Conjunctiva NECK; supple, normal thyroid, RESPIRATORY: Diminished to auscultation CARDIOVASCULAR: Regular S1 S2, GI: soft, normoactive bowel sounds, : No Renal angle tenderness; EXTREMITIES: No edema, no clubbing, MUSCULOSKELETAL: no muscle wasting NEURO: Awake; no lateralizing signs. SKIN: No Rash PSYCH; Flat affect Weight / BMI Weight Weight: 82.4 kg Body Mass Index (BMI) 28.4 ABG / Lab / Microbiology Data 09/28/24 05:05 09/28/24 05:05 Laboratory: Laboratory Results - last 24 hr 09/28/24 05:05: WBC 6.6, RBC 3.15 L, Hgb 10.8 L, Hct 33.7 L, MCV 107.0 H, MCH 34.3 H, MCHC 32.0, RDW Std Deviation 47.8 H, RDW Coeff of Dao 12.2, Plt Count 210, MPV 10.2, Immature Gran % (Auto) 0.500, Neut % (Auto) 83.2 H, Lymph % (Auto) 8.5 L, [place] % (Auto) 7.6, Eos % (Auto) 0.0, Baso % (Auto) 0.2, Absolute Neuts (auto) 5.5, Absolute Lymphs (auto) 0.56 L, Nucleated RBC % 0, Sodium 138, Potassium 4.2, Chloride 105, Carbon Dioxide 27.0, Anion Gap 6, BUN 20 H, Creatinine 0.51 L, Estim Creat Clear Calc 76.35, Est GFR (MDRD) Af Amer 154, Est GFR (MDRD) Non-Af 127, BUN/Creatinine Ratio 38.9 H, Glucose 176 H, Calcium 8.8, Phosphorus 3.9, Magnesium 2.7 H Microbiology: Microbiology 09/26/24 21:13 Sputum, Expectorated/Coughed Gram Stain - Final 09/26/24 21:13 Sputum, Expectorated/Coughed Respiratory Culture - Preliminary 09/27/24 12:15 Urine, Clean Catch Legionella Antigen - Final 09/27/24 12:15 Urine, Clean Catch Streptococcus pneumoniae Antigen (M - Final 09/27/24 00:40 Mucosa - Nasopharyngeal Respiratory Panel (PCR) - Final 09/26/24 16:25 Mucosa - Nose SARS-CoV-2, Influenza & RSV (PCR) - Final Influenzae A D/C Instructions Discharge Diet: No restrictions Discharge Activity: Return to Normal Activity Call your doctor if you observe: Fever of 101 or Higher, Shortness of breath, Fainting spells and Chest pain DC O2, CPAP, BIPAP Needs RN Home O2 Qualification: Home O2 Qualification: Is the patient on home oxygen No 09/28/24 10:31 Home O2 Qualification: AT REST 1- Pulse Ox at rest 91 09/28/24 10:31 Home O2 Qualification: WITH AMBULATION 1- Pulse Ox with ambulation 93 09/28/24 10:31 1- Oxygen Flow Rate with 0 09/28/24 10:31 ambulation Home O2 Discharge instructions: No Meaningful Use Info Meaningful Use Meaningful Use Diagnoses (Choose all that apply): None applicable Ischemic Stroke Statin Dosing Therapy Reference: STATIN DOSE THERAPY REFERENCE: * Patients > 75 years receive moderate or high dose statin therapy. * Patients 75 years or YOUNGER should receive HIGH intensity statin dose unless contraindicated. You will be required to document reason for non-treatment if statin daily dose does not meet guidelines. HIGH DOSE STATIN THERAPY DAILY Atorvastatin > than or = to 40 mg Rosuvastatin > than or = to 20 mg Amlodipine + Atorvastatin > than or = to 2.5/40 mg Ezetimibe + Simvastatin 10/80 mg Simvastatin 80mg Discharge Plan Admission Admit Date/Time: 09/26/24 19:26 Attending Provider: Scott Mcneal Primary Care Provider: Martin Gutierrez [employer] Providers: Esperanza Myers Discharge Orders/Prescriptions Prescriptions: New doxycycline hyclate 100 mg capsule 100 mg PO BID Qty: 14 0RF prednisone 20 mg tablet 20 mg PO BID Qty: 10 0RF guaifenesin [Mucinex] 600 mg tablet extended release 12hr 1,200 mg PO BID Qty: 20 0RF albuterol sulfate 90 mcg/actuation HFA aerosol inhaler 2 puff inhalation Q6H PRN (Reason: shortness of breath or wheezing) Qty: 8.5 0RF Continued nitroglycerin 0.4 mg tablet, sublingual 0.4 mg sublingual Q5-15M PRN (Reason: chest pain) Qty: 25 3RF Rx Instructions: until response; do not exceed 3 doses per event rosuvastatin 40 mg tablet 40 mg PO QDAY ferrous sulfate 325 mg (65 mg iron) tablet 650 mg PO BID famotidine 40 mg tablet 40 mg PO DAILY Patient Comments: pt states she does not take this every day aspirin [Adult Low Dose Aspirin] 81 mg tablet,delayed release (DR/EC) 81 mg PO DAILY Patient Comments: pt states she does not take this on sundays levothyroxine 25 MCG tablet 25 mcg PO DAILY duloxetine [Cymbalta] 60 mg capsule,delayed release(DR/EC) 60 mg PO BID acetaminophen [Tylenol Extra Strength] 500 mg Tablet 1,000 mg PO Q6H PRN (Reason: Headache) baclofen 10 mg tablet 10 mg PO DAILY gabapentin 100 mg capsule 100 mg PO DAILY PreserVision AREDS 4,296 mcg-226 mg-90 mg capsule 1 cap PO DAILY Referrals / Follow Up: Martin Gutierrez Chi, MD [Primary Care Provider] - Within 2 Weeks Disposition Disposition (needs filled in before D/C Order can be placed): Home, Self Care Charges/Coding Visit Charges Inpatient E&M: 42043 Disch Hosp >30min
--- NOTE | 2024-09-28 11:15 | CASEMGMT ---
Noted pt did not qualify for home oxygen. RN CM into pt room, pt sitting up in bed on RA. Pt aware that she did not qualify for oxygen. No PT or OT recommended. Pt reports she feels safe to go home. She states she has family to assist her. Pt denies any homegoing needs.
[2024-09-28] MEDS: Ferrous Sulfate 325 MG Tablet 650 MG PO (11:51)
--- NOTE | 2024-09-28 16:11 | PHA.DC.MR.R ---
Pharmacy [place] Med Reconciliation Pharmacy Service has performed discharge medication reconciliation for this patient. The patient's discharge medication list was reviewed for discrepancies and discrepancies were resolved. Medications at Discharge Home Medications nitroglycerin 0.4 mg sublingual tablet 0.4 mg sublingual Q5-15M PRN chest pain #25 tabs 10/14/17 levothyroxine 25 mcg tablet 25 mcg PO DAILY thyroid 11/30/17 rosuvastatin 40 mg tablet 40 mg PO QDAY hld 04/09/18 acetaminophen 500 mg tablet (Tylenol Extra Strength) 1,000 mg PO Q6H PRN Headache 03/09/21 aspirin 81 mg tablet,delayed release (Adult Low Dose Aspirin) 81 mg PO DAILY blood thinner 07/26/21 famotidine 40 mg tablet 40 mg PO DAILY gerd 07/26/21 ferrous sulfate 325 mg (65 mg iron) tablet 650 mg PO BID iron 04/15/23 duloxetine 60 mg capsule,delayed release (Cymbalta) 60 mg PO BID depression 09/30/23 baclofen 10 mg tablet 10 mg PO DAILY spasms 09/26/24 gabapentin 100 mg capsule 100 mg PO DAILY pain 09/26/24 vitamins A,C,C-oefh-apmcwr 4,296 mcg-226 mg-90 mg capsule (PreserVision AREDS) 1 cap PO DAILY supplement 09/26/24 albuterol sulfate 90 mcg/actuation aerosol inhaler 2 puff inhalation Q6H PRN shortness of breath or wheezing #8.5 grams 09/28/24 doxycycline hyclate 100 mg capsule 100 mg PO BID #14 caps 09/28/24 guaifenesin 600 mg tablet, extended release 12 hr (Mucinex) 1,200 mg (2 x 600 mg) PO BID #20 tabs 09/28/24 prednisone 20 mg tablet 20 mg PO BID #10 tabs 09/28/24
== END 2024-09-28 12:50 | disposition home or self-care (01) | DRG 193 ==
LOC: ED 18:47 → MS3 19:47
PROVIDERS: Nurse Practitioner; Admitting Provider Family Medicine; Emergency Provider Emergency Medicine; PCP Family Medicine Geriatric Medicine; Referring Provider Family Medicine; Visit Provider Internal Medicine
DX: J10.01 Influenza due to other identified influenza virus with the same other identified influenza virus pneumonia (principal); J96.01 Acute respiratory failure with hypoxia; D63.8 Anemia in other chronic diseases classified elsewhere; I69.322 Dysarthria following cerebral infarction; E03.9 Hypothyroidism, unspecified; D50.9 Iron deficiency anemia, unspecified; F17.210 Nicotine dependence, cigarettes, uncomplicated; E78.5 Hyperlipidemia, unspecified; I12.9 Hypertensive chronic kidney disease with stage 1 through stage 4 chronic kidney disease, or unspecified chronic kidney disease; F32.A Depression, unspecified; I73.9 Peripheral vascular disease, unspecified; I35.0 Nonrheumatic aortic (valve) stenosis; K21.9 Gastro-esophageal reflux disease without esophagitis; I25.10 Atherosclerotic heart disease of native coronary artery without angina pectoris; F41.9 Anxiety disorder, unspecified; G47.33 Obstructive sleep apnea (adult) (pediatric); N18.2 Chronic kidney disease, stage 2 (mild); M79.7 Fibromyalgia; E87.6 Hypokalemia; I65.23 Occlusion and stenosis of bilateral carotid arteries; Z95.5 Presence of coronary angioplasty implant and graft; Z86.718 Personal history of other venous thrombosis and embolism; Z87.19 Personal history of other diseases of the digestive system; Z79.82 Long term (current) use of aspirin; Z79.899 Other long term (current) drug therapy; Z79.890 Hormone replacement therapy; Z98.890 Other specified postprocedural states
CPT/HCPCS: 36415; 71046; 80048; 80053; 82962; 83605; 83735; 84100; 84145; 85025; 87040; 87070; 87077; 87205; 87449; 87631; 87633; 93005; 94640; 97161; 97165; 99285; 99406; A4216

== ENCOUNTER → 2024-10-05 | Outpatient (CLI) | payer MEDICARE, SELFPAY ==
[2024-10-05 15:57] LABS: Anion Gap 6 (5-15); BUN 17 mg/dL (7-18); BUN/Creat Ratio 26.9 RATIO (10-20); Calcium,Total 8.9 mg/dL (8.5-10.1); Chloride 111 mmol/L (98-107); Creatinine, Serum 0.63 mg/dL (0.55-1.02); EST Glomerular Filtration Rate 100 mL/min (>60); Est Glom Filt Rate - Afr Amer 121 mL/min (>60); Glucose 92 mg/dL (74-106); Potassium 3.8 mmol/L (3.5-5.1); Sodium Level 141 mmol/L (136-145)
== END | disposition home or self-care (01) ==
LOC: LAB 14:13
PROVIDERS: PCP Family Medicine Geriatric Medicine; Referring Provider Family Medicine Geriatric Medicine; Visit Provider Family Medicine Geriatric Medicine
DX: E87.6 Hypokalemia (principal)
CPT/HCPCS: 36415; 80048

== ENCOUNTER 2024-11-14 12:21 | Outpatient (RCR) | payer MEDICARE, SELFPAY ==
--- NOTE | 2024-11-14 13:32 | HP.PTEVAL_ITS ---
Patient's Visit Information Visit Information Visit Information: STELLA STANTON is a 64 year old F referred to Physical Therapy by Dr. Armando Ga MD with a diagnosis of BACK PAIN AND LEG PAIN. Date of Evaluation: 11/14/24 Physical Therapist: Pardeep Betancur, PT, Cert MDT, OCS Visit Plan Frequency: 2x /Week Duration: 4 Weeks Plan: PT INTERVENTIONS LUMBAR FLEXION ,DLS ,LE FLEXABILITY ,POSTURAL EX'S AND MODALTIES Subjective Subjective: This 64 y/o female presents to physical therapy with Lumbar radiculopathy left leg. Patient has back and leg pain for ~ 1 year. Patient states falling x2 past couple years twisting back. Family DR recommended pain management with for epidural injections 4 x helped for ~ 2 days. MRI showed Mild anterior listhesis of L4 on L5 and L5 on S1 without spondylolysis Moderate L4-5 spinal stenosis related to posterior ligamentous hypertrophy and facet arthropathy.Pain located LS with radicular symptoms in leg. Aggravating factors walking ~ < 5mins ,standing ,bending and lifting . Alleviating rest and sitting medication. Medication gabapentin and baclofen. Coughing/sneezing - . Bowel/bladder-. Patient pain can affects sleeping. Patient has no PT treatment. Patient condition affects QOL and function. VOCATION: retired SOCIAL: Pain Left Back: Pain Intensity (Out of 10): 7 Pain Intensity Range: 10 Comment: 10 at worse Left Lower Extremity: Pain Intensity (Out of 10): 0 Pain Intensity Range: 10 Comment: increases with walking Objective Objective: POSTURE: mild forward posture GAIT: reciprocal pattern NEURO: denies paresthesia/tingling ,reflexes L3-4,L4-5,L5-S1 1/3 FLEXABILITY: hamstrings min tight PALAPTION: tender left> right LS LUMBAR ROM: flexion min loss ,extension mod/severe loss ,side glides min loss Special Tests L/S Slump test left side: Negative L/S Slump test right side: Negative L/S Left Straight Leg Raise: Negative L/S Right Straight Leg Raise: Negative Lumbar Standing: Flexion - Mechanical Response: No effect Lumbar Standing: Flexion - Symptoms During Testing: No effect Lumbar Standing: Flexion - Symptoms After Testing: No effect Lumbar Standing: Extension - Mechanical Response: No effect Lumbar Standing: Extension - Symptoms During Testing: Increases Lumbar Standing: Extension - Symptoms After Testing: Worse Lumbar Standing: Right Side Glides - Mechanical Response: No effect Lumbar Standing: Right Side [place] - Symptoms During Testing: No effect Lumbar Standing: Right Side [place] - Symptoms After Testing: No effect Lumbar Standing: Left Side [place] - Mechanical Response: No effect Lumbar Standing: Left Side [place] - Symptoms During Testing: No effect Lumbar Standing: Left Side [place] - Symptoms After Testing: No effect Balance/Special Test Scores Oswestry Low Back Score: 25 Goals Goal 1:: Patient to be I with HEP for back Goal Time Frame: 4-6 Weeks Goal 2:: Patient to improve back oswestry score by 5 points to improve function Goal Time Frame: 4-6 Weeks Goal 3:: Patient able to ambulate 10 mins with less leg symptoms Goal Time Frame: 4-6 Weeks Goal 4:: Patient to demonstrate 50% improvement with less pain and improved function Goal Time Frame: 4-6 Weeks Goal 5:: Patient to improve lumbar ROM for function of recovery for ADLS Goal Time Frame: 4-6 Weeks Rehabilitation Potential Physical Therapy Diagnosis: This patient has lumbar radiculopathy left leg worse with positioning and motion testing with extension and worse with walking better with flexion thus benefit from skilled PT Rehabilitation Potential: Fair Anticipated Interventions Patient/Client Instruction: Educate patient on: Condition and Plan of Care For the Purpose of:: To decrease pain, To increase ROM, To improve muscle performance and motor function, To increase tolerance to activity/condition/position, To improve ability of physical actions for home/community/work/leisure, To improve health of tissue, To increase flexibility/ROM, To assume or resume ADL's and To improve tolerance to ADL's Therapeutic Exercise to Include: Strength training, Body mechanics, Postural training, Flexibilty training and Dynamic Lumbar Stabilization For the Purpose of:: To decrease pain, To increase ROM, To improve muscle performance and motor function, To improve ability to perform ADL's, To increase tolerance to activity/condition/position, To improve ability of physical actions for home/community/work/leisure, To improve health of tissue, To decrease soft tissue restriction and To improve tolerance to ADL's TENS: Yes IF ES: Yes Cryotherapy (ice pack, ice massage): Yes Thermo therapy (hot pack): Yes Ultrasound (thermal/non thermal): Yes For the Purpose of:: To decrease pain, To increase ROM, To increase oxygenation perfusion, To improve health of tissue and To decrease soft tissue restriction Text: Thank you for the opportunity to evaluate your patient. For Medicare and Medicare HMO plans, please review the plan of care and approve it. It will need to be FAXED BACK to us at [phone] for Medicare purposes. For Medicare only, by signing this I certify the plan of care. Please let me know if there are questions or concerns regarding this plan of care. Physician Signature: Date:
--- NOTE | 2024-12-28 15:20 | HP.PT.NRP ---
Patient Information Patient Information: STELLA STANTON was seen in my office for initial evaluation on 11/14/24. The following Plan of Care was established for this patient: POC Established Initial Frequency: 2x /Week Initial Duration: 4 Weeks Anticipated Interventions Patient/Client Instruction: Educate patient on: Condition and Plan of Care For the Purpose of:: To decrease pain, To increase ROM, To improve muscle performance and motor function, To increase tolerance to activity/condition/position, To improve ability of physical actions for home/community/work/leisure, To improve health of tissue, To increase flexibility/ROM, To assume or resume ADL's and To improve tolerance to ADL's Therapeutic Exercise to Include: Strength training, Body mechanics, Postural training, Flexibilty training and Dynamic Lumbar Stabilization For the Purpose of:: To decrease pain, To increase ROM, To improve muscle performance and motor function, To improve ability to perform ADL's, To increase tolerance to activity/condition/position, To improve ability of physical actions for home/community/work/leisure, To improve health of tissue, To decrease soft tissue restriction and To improve tolerance to ADL's TENS: Yes IF ES: Yes Cryotherapy (ice pack, ice massage): Yes Thermo therapy (hot pack): Yes Ultrasound (thermal/non thermal): Yes For the Purpose of:: To decrease pain, To increase ROM, To increase oxygenation perfusion, To improve health of tissue and To decrease soft tissue restriction Last Seen Last Seen: This patient was last seen in our office . Pertinent comments regarding their Physical therapy will appear below: Patient was seen for PT for initial evaluation for HEP and thus d/c At this point I will be discontinuing this patient from physical therapy. I would be happy to see this patient again in the future if found appropriate by the physician. Thank you! Pardeep Betancur, PT, Cert MDT, OCS Balance/Gait/Functional tests Balance/Special Test Scores Oswestry Low Back Score: 25
== END 2024-11-14 19:00 | disposition home or self-care (01) ==
LOC: PT 12:21
PROVIDERS: PCP Family Medicine Geriatric Medicine; Referring Provider Anesthesiology Pain Medicine; Visit Provider Anesthesiology Pain Medicine
DX: M54.9 Dorsalgia, unspecified (principal); M79.606 Pain in leg, unspecified
CPT/HCPCS: 97162

== ENCOUNTER → 2024-12-22 | Outpatient (CLI) | payer MEDICARE, SELFPAY ==
[2024-12-22 10:31] LABS: Absolute Lymphocyte Count 1.19 X10^3/uL (0.83-4.51); Absolute Neutrophil Count 4.8 X10^3/uL (2.0-7.7); Basophil# 0.06 X10^3/uL; Basophil% 0.9 % (0-1); Eosinophil# 0.08 X10^3/uL; Eosinophils% 1.2 % (0-5); Hematocrit 36.7 % (37-47); Hemoglobin 11.9 g/dL (12.0-15.0); Lymphocyte # 1.19 X10^3/ul (0.83-4.51); Lymphocyte % 17.5 % (19-41); Mean Corp Hgb Conc 32.4 g/dL (32-36); Mean Corpuscular Hgb 34.8 pg (27.0-32.0); Mean Corpuscular Volume 107.3 fL (81-99); Mean Platelet Vol. 9.5 fl (6.2-12.0); Monocyte# 0.67 X10^3/uL; Monocyte% 9.9 % (0-10); NRBC Flagged by Analyzer 0 % (0-5); Neutrophil # 4.76 X10^3/uL (2.7-7.7); Neutrophil % 70.1 % (47-70); Platelet Count 296 K/mm3 (150-450); RBC Distribution Width CV 13.4 % (11.6-14.6); RBC Distribution Width SD 52.9 fl (35.1-43.9); Red Blood Count 3.42 M/mm3 (4.2-5.4); White Blood Count 6.8 K/mm3 (4.4-11.0)
[2024-12-22 14:21] LABS: Iron 31 ug/dL (50-170); Iron Binding Capacity,Total 311 ug/dL (250-450); Iron Binding Capacity,Unsat 280 ug/dL (228-428)
[2024-12-22 14:58] LABS: ALB/GLOB Ratio 1.7 RATIO (0.9-2.4); AST(SGOT) 16 U/L (<=31); Alanine Aminotransfer ALT/SGPT 14 U/L (<=34); Alkaline Phosphatase 85 U/L (35-104); Anion Gap 10 (5-15); BUN 14 mg/dL (4-19); BUN/Creat Ratio 20.8 RATIO (10-20); Carbon Dioxide 23.2 mmol/L (21.0-32.0); Chloride 106 mmol/L (98-108); Creatinine, Serum 0.65 mg/dL (0.70-1.20); EST Glomerular Filtration Rate 97 (>60); Ferritin 33 ng/mL (22-378); Globulin 2.3 g/dL (2.2-4.2); Glucose 123 mg/dL (70-99); Potassium 3.9 mmol/L (3.3-5.1); Protein, Total 6.2 g/dL (5.9-8.4); Sodium Level 139 mmol/L (133-145); Total Bilirubin < 0.15 mg/dL (0.00-1.30); Vitamin D,25 Hydroxy 12.1 ng/mL (30-100)
== END | disposition home or self-care (01) ==
LOC: LAB 10:00
PROVIDERS: PCP Family Medicine Geriatric Medicine; Referring Provider Family Medicine Geriatric Medicine; Visit Provider Family Medicine Geriatric Medicine
DX: I10 Essential (primary) hypertension (principal); E55.9 Vitamin D deficiency, unspecified; D50.9 Iron deficiency anemia, unspecified
CPT/HCPCS: 36415; 80053; 82306; 82728; 83540; 83550; 84443; 85025

== ENCOUNTER 2025-05-25 17:48 | Inpatient (IN) | payer MEDICARE, SELFPAY ==
[2025-05-25] VITALS (7 sets, daily range): BP systolic 98–127; BP diastolic 41–58; PULSE 79–100; RESP 16–20; TEMP 36.3–37.2; O2SAT 97–98; BMI 29.7; BMI 29.5
--- NOTE | 2025-05-25 18:13 | EX.ED.DYSGE1 ---
HPI History of Present Illness Chief Complaint: Abn Labs Informant: patient Onset/Context/Timing Onset: Days Context: Gradual Onset Timing: Continuous Quality: Tired Location: Generalized Relieved by: Nothing Narrative Narrative: Patient presents with generalized fatigue and anemia that was noticed today. Patient saw her primary care physician who ordered outpatient labs as well as x-ray and venous Doppler of her extremities. Patient was noted to have a DVT in her left posterior tibial vein. Patient was ordered a prescription for Eliquis. Patient did not start the Eliquis because her hemoglobin was low at 6.1. Patient was then told to come to the emergency department. Patient states she feels like she is retaining fluid. Patient admits to decreased urine output. Patient states she feels short of breath at times. Patient also admits to some pain in her chest at times. [facility] Medical History Tobacco use disorder, continuous Iron deficiency anemia due to chronic blood loss History of stress test Depression Hypothyroidism GERD (gastroesophageal reflux disease) Smoker Coronary artery disease Hypertension DVT (deep venous thrombosis) TIA (transient ischemic attack) Anemia Macrocytosis Nicotine dependence Chronic GI bleeding Peripheral vascular disease Non-rheumatic aortic stenosis Dysarthria Atherosclerosis of coronary artery of [place] heart without angina pectoris Essential (primary) hypertension Encounter for screening for lung cancer Bilateral carotid artery stenosis Pernicious anemia Sleep apnea IBS (irritable bowel syndrome) History of DVT (deep vein thrombosis) Diarrhea Nausea & vomiting LEFT ARM SURGERY BLOOD CLOT Gastrointestinal bleed CVA (cerebral vascular accident) Hyperlipidemia Fibromyalgia Expressive language disorder Dysarthria Home Medications ?Medication ?Instructions ?Recorded ?Last Taken ?Type nitroglycerin 0.4 mg sublingual 0.4 mg sublingual Q5-15M PRN chest 10/14/17 2 Months Ago Rx tablet pain #25 tabs ~10/03/17 levothyroxine 25 mcg tablet 25 mcg PO DAILY thyroid 11/30/17 03/08/21 History rosuvastatin 40 mg tablet 40 mg PO QDAY hld 04/09/18 Unknown History acetaminophen 500 mg tablet 1,000 mg PO Q6H PRN Headache 03/09/21 Unknown History (Tylenol Extra Strength) aspirin 81 mg tablet,delayed 81 mg PO DAILY blood thinner 07/26/21 Unknown History release (Adult Low Dose Aspirin) famotidine 40 mg tablet 40 mg PO DAILY gerd 07/26/21 Unknown History ferrous sulfate 325 mg (65 mg 650 mg PO BID iron 04/15/23 Unknown History iron) tablet duloxetine 60 mg capsule,delayed 60 mg PO BID depression 09/30/23 Unknown History release (Cymbalta) baclofen 10 mg tablet 10 mg PO DAILY spasms 09/26/24 Unknown History gabapentin 100 mg capsule 100 mg PO DAILY pain 09/26/24 Unknown History vitamins A,C,L-whdb-nfqqtq 4,296 1 cap PO DAILY supplement 09/26/24 Unknown History mcg-226 mg-90 mg capsule (PreserVision AREDS) albuterol sulfate 90 mcg/actuation 2 puff inhalation Q6H PRN 09/28/24 Unknown Rx aerosol inhaler shortness of breath or wheezing #8.5 grams duloxetine 30 mg capsule,delayed 30 mg PO BID 05/25/25 Unknown History release Allergy/AdvReac Type Severity Reaction Status Date / Time atorvastatin (From Lipitor) AdvReac Severe Other Verified 05/25/25 17:49 codeine AdvReac Severe Other Verified 05/25/25 17:49 Family History Father , at age 38, from [place] Myocardial infarction cardiomopathy Mother Atrial fibrillation Hypertension Hyperlipidemia Diabetes Brother CAD (coronary artery disease) cardiomopathy Myocardial infarction Sister cardiomopathy Surgical History History of endoscopy S/P tubal ligation H/O cardiac catheterization History of cataract removal with insertion of prosthetic lens 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) Hx of bilateral cataract extraction History of coronary artery stent placement (12/20/08) History of left-sided carotid endarterectomy (01/2019) Hx of appendectomy Social History adopted: No household members: spouse and family Smoking Status: Current every day smoker tobacco type: cigarettes Tobacco: How many years used: 50 Electronic Cigarette Use: not used second hand exposure: Yes quit status: has quit before alcohol intake: former year quit: 2017 substance use type: does not use caffeine: Yes Type: coffee Number of servings: 2 what type of physical activity do you participate in: none seatbelt use: sometimes do you feel safe at home: Yes ROS ROS ED Constitutional Constitutional ED: Denies chills or fever(s) Eyes Eyes: Denies blurry vision or change in vision ENT ENT ED: Denies rhinorrhea or sore throat Cardiovascular Cardiovascular: Reports chest pain; Denies palpitations Respiratory/Chest Respiratory/Chest: Reports dyspnea; Denies cough Gastrointestinal Gastrointestinal: Denies nausea or vomiting Genitourinary Genitourinary ED: Denies dysuria or hematuria Musculoskeletal Musculoskeletal: Denies back pain or neck pain Integumentary Denies abscess or rash Neurologic Neurologic: Reports headache(s); Denies weakness Allergic/Immunologic Allergic/Immunologic ED: Denies mouth swelling or urticaria EXAM Physical Exam Const Vital Signs: 05/25/25 17:49 05/25/25 18:46 05/25/25 20:19 Temperature 97.4 F L 98.2 F Temperature Source Temporal Oral Pulse Rate 100 80 Respiratory Rate 17 20 H Respiratory Effort Normal Respiratory Pattern Normal Blood Pressure 119/56 L 98/41 L Blood Pressure Mean 77 60 Blood Pressure Source Monitor Blood Pressure Position Semi-Fowlers Blood Pressure Location Left Arm Pulse Ox 98 98 Oxygen Delivery Method Room Air Room Air Positive well nourished and well developed Constitutional Narrative: BMI is 29.8. General Appearance ED: well developed and NAD HEENT Reports moist mucous membranes Neck supple and no JVD Resp normal respiratory effort and clear to auscultation bilaterally Cardio regular rate and regular rhythm GI non-tender and non-distended Palpation: soft Extremity General Extremety ED: Yes edema and tenderness General Extremity: edema Neuro oriented x3, CN's II-XII intact bilaterally and no sensory deficits noted Sensorium / Orientation: alert Motor Exam: strength 5/5 throughout Psych mental status grossly normal MDM MDM MDM Narrative Medical decision making narrative: Differential diagnosis includes chronic anemia, electrolyte abnormality, dehydration, acute kidney injury, DVT, and gastrointestinal bleeding. EKG will be obtained to assess for cardiac dysrhythmia and cardiac ischemia. High-sensitivity troponin will be obtained to assess for cardiac ischemia. PT with INR and PTT will be obtained to assess for coagulopathy. Type and crossmatch will be obtained to assess for blood type and antibody screen. Stool for occult blood will be obtained to assess for gastrointestinal bleeding. Patient had outpatient CBC, basic metabolic profile, BNP, D-dimer, venous duplex, and chest x-ray prior to arrival. History & Record Review Additional record(s) reviewed:: Prior outpatient record, Prior ED visit and Prior labs Lab Data Attestation: I reviewed the patient's lab results. Lab results narrative: PT with INR and PTT were reviewed. PTT was slightly elevated at 36.5. The remainder is within normal limits. High-sensitivity troponin was reviewed and was slightly elevated at 28. Stool for occult blood was reviewed and was negative. Labs: Laboratory Results - last 24 hr 05/25/25 05/25/25 05/25/25 17:55 18:34 20:50 PT 14.0 INR 1.1 APTT 36.5 H Magnesium 2.3 H Troponin T High Sens 28 H Troponin T Hi Sens 2 Hr 26 H Blood Type O POSITIVE Antibody Screen NEGATIVE Crossmatch See Detail Outpatient labs were reviewed. CBC was reviewed and shows an anemia with a hemoglobin of 6.1 and hematocrit of 21.5. Basic metabolic profile was reviewed and was essentially within normal limits. BNP was reviewed and was elevated 1897. D-dimer was reviewed and was normal at 0.48. Radiography Diagnostic Testing: Outpatient chest x-ray was reviewed. There are 2 views. There is mild bibasilar vascular congestion that appears to be chronic. There is no acute process noted. This was interpreted by the radiologist and was also independently reviewed by myself. EKG Initial EKG: Attestation: I personally reviewed and interpreted this EKG as follows: Interpretation: Sinus Rhythm (95) and No Acute Injury Pattern Comments: EKG was obtained. On my independent interpretation, it shows normal sinus rhythm with a rate of 95. NC interval was normal at 156 ms. QRS interval was slightly prolonged at 130 ms. QTc interval was slightly prolonged at 510 ms. There is left axis deviation at -25. There is left ventricular hypertrophy with QRS widening. There are no acute ST or T wave changes noted. Prior EKG tracings: available for review Prior: Unchanged (09/26/2024) Treatment and Re-Evaluation :: Patient was transfused 1 unit of blood in the emergency department. Case was discussed with the hospitalist. She will admit the patient to her service. Patient understood and was agreeable with the plan. All questions were answered. Discharge Plan Dx/Rx/DC Orders Clinical Impression: Acute anemia, DVT (deep venous thrombosis), Nicotine dependence Disposition Disposition: [facility]
--- NOTE | 2025-05-25 18:34 | EKG12_ITS ---
Test Reason : LEG SWELLING Blood Pressure : */* mmHG Vent. Rate : 95 BPM Atrial Rate : 95 BPM P-R Int : 156 ms QRS Dur : 130 ms QT Int : 406 ms P-R-T Axes : 67 -25 51 degrees QTcB Int : 510 ms Normal sinus rhythm Possible Left atrial enlargement Left ventricular hypertrophy with QRS widening ( Leobardo product ) Abnormal ECG Confirmed by DENICE FAROOQ, RICCARDO ([id number]), editor managing director RAKAN RODRÍGUEZ ([id number]) on 05/29/2025 6:18:22 AM Referred By: Confirmed By: RICCARDO GALDAMEZ MD
[2025-05-25 19:10] LABS: Prothrombin Time (Protime)PT. 14.0 SECONDS (11.7-14.9)
[2025-05-25 19:11] LABS: Partial Thromboplast Time 36.5 Seconds (24.1-36.2)
[2025-05-25 19:45] LABS: Troponin T High Sensitivity 28 ng/L (<=14)
--- NOTE | 2025-05-25 21:08 | PCM.HP.STD ---
HPI - General General Date of Admission: 05/25/25 Date of Service: 05/25/25 Chief Complaint: Chest pain, Dyspnea, Low Hgb outpatient. HPI Narrative The patient is a 65 y/o F w/ PMHx: Tobacco use, Hx VTE, Anxiety and Depression, Hypothyroidism, HTN, HLD, Chronic macrotic anemia/Fe deficiency anemia w/ Chronic GI blood loss/Chart reported Hx pernicious anemia, Hypothyroidism, GERD, PATRICA, Hx TIA/CVA w/ Chronic expressive language disorder/Chronic dysarthria, PAD w/ arterial embolism and thrombosis of lower extremity with intervention, CAD status post PCI, carotid disease status post left CEA who presents to the [facility] ED on 05/25/2025 with history of generalized fatigue and anemia recently evaluated by her primary care on day of presentation with outpatient labs including imaging and venous duplex ultrasound secondary to swelling with noted left posterior tibial vein DVT at that time prescribed Eliquis however low labs that were obtained were notable with a hemoglobin of 6.1 prompting PCP to refer to the ED for evaluation. Patient does report that her stools are unchanged and have been chronic dark in appearance given that she takes chronic iron supplementation. She does report that her GI bleed history has been associated with severity of constipation and states that the blood vessels come to the surface and pop. Patient does report she feels very edematous and is if she is retaining fluids with recently decreased urine output and feels short of breath occasionally worse with exertion and does admit to occasional chest discomfort intermittently in addition. Recent evaluation prior to ED arrival included CBC with WBC 7.3, Hgb 6.1, MCV 123.6, platelet 262 with lymphocytosis and mild left shift, most recent lab workup also included D-dimer 0.48, BNP with BUN/Cr15/0.66, GFR 96, glucose 105, NT proBNPII 1897, duplex ultrasound secondary to edema with noted acute DVT in the left posterior tibial vein, remainder of the left lower extremity deep venous system patent and compressible, deep veins of the right lower extremity patent and compressible segmentally, no evidence of any right lower extremity deep vein thrombosis, valvular competence appears intact within the proximal deep venous system bilaterally, great saphenous vein appears bilaterally patent and compressible segmentally, chest x-ray with mild basilar predominant chronic interstitial lung disease with otherwise no acute cardiopulmonary findings. Patient upon current ED evaluation with workup including T97.4, heart rate 100, BP 119/56, respiratory rate 17, 98% on room air, coags with PT 36.5 otherwise not marked, guaiac negative, troponin 28 with repeat delta pending, type and cross initiated per ED physician for 1 unit PRBC, EKG with sinus rhythm with mildly prolonged QRS at 130 ms, QTc slightly prolonged 510 ms with no acute evidence of ischemia similar to previous EKG 09/26/2024. [facility] Medical History Tobacco use disorder, continuous Iron deficiency anemia due to chronic blood loss History of stress test Depression Hypothyroidism GERD (gastroesophageal reflux disease) Smoker Coronary artery disease Hypertension DVT (deep venous thrombosis) TIA (transient ischemic attack) Anemia Macrocytosis Nicotine dependence Chronic GI bleeding Peripheral vascular disease Non-rheumatic aortic stenosis Dysarthria Atherosclerosis of coronary artery of [place] heart without angina pectoris Essential (primary) hypertension Encounter for screening for lung cancer Bilateral carotid artery stenosis Pernicious anemia Sleep apnea IBS (irritable bowel syndrome) History of DVT (deep vein thrombosis) Diarrhea Nausea & vomiting LEFT ARM SURGERY BLOOD CLOT Gastrointestinal bleed CVA (cerebral vascular accident) Hyperlipidemia Fibromyalgia Expressive language disorder Dysarthria Home Medications ?Medication ?Instructions ?Recorded ?Last Taken ?Type nitroglycerin 0.4 mg sublingual 0.4 mg sublingual Q5-15M PRN chest 10/14/17 2 Months Ago Rx tablet pain #25 tabs ~10/03/17 levothyroxine 25 mcg tablet 25 mcg PO DAILY thyroid 11/30/17 03/08/21 History rosuvastatin 40 mg tablet 40 mg PO QDAY hld 04/09/18 Unknown History acetaminophen 500 mg tablet 1,000 mg PO Q6H PRN Headache 03/09/21 Unknown History (Tylenol Extra Strength) aspirin 81 mg tablet,delayed 81 mg PO DAILY blood thinner 07/26/21 Unknown History release (Adult Low Dose Aspirin) famotidine 40 mg tablet 40 mg PO DAILY gerd 07/26/21 Unknown History ferrous sulfate 325 mg (65 mg 650 mg PO BID iron 04/15/23 Unknown History iron) tablet duloxetine 60 mg capsule,delayed 60 mg PO BID depression 09/30/23 Unknown History release (Cymbalta) baclofen 10 mg tablet 10 mg PO DAILY spasms 09/26/24 Unknown History gabapentin 100 mg capsule 100 mg PO DAILY pain 09/26/24 Unknown History vitamins A,C,S-bhin-ycjtog 4,296 1 cap PO DAILY supplement 09/26/24 Unknown History mcg-226 mg-90 mg capsule (PreserVision AREDS) albuterol sulfate 90 mcg/actuation 2 puff inhalation Q6H PRN 09/28/24 Unknown Rx aerosol inhaler shortness of breath or wheezing #8.5 grams duloxetine 30 mg capsule,delayed 30 mg PO BID 05/25/25 Unknown History release Allergy/AdvReac Type Severity Reaction Status Date / Time atorvastatin (From Lipitor) AdvReac Severe Other Verified 05/25/25 17:49 codeine AdvReac Severe Other Verified 05/25/25 17:49 Family History Father , at age 38, from [place] Myocardial infarction cardiomopathy Mother Atrial fibrillation Hypertension Hyperlipidemia Diabetes Brother CAD (coronary artery disease) cardiomopathy Myocardial infarction Sister cardiomopathy Surgical History History of endoscopy S/P tubal ligation H/O cardiac catheterization History of cataract removal with insertion of prosthetic lens 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) Hx of bilateral cataract extraction History of coronary artery stent placement (12/20/08) History of left-sided carotid endarterectomy (01/2019) Hx of appendectomy Social History adopted: No household members: spouse and family Smoking Status: Current every day smoker tobacco type: cigarettes Tobacco: How many years used: 50 Electronic Cigarette Use: not used second hand exposure: Yes quit status: has quit before alcohol intake: former year quit: 2018 substance use type: does not use caffeine: Yes Type: coffee Number of servings: 2 what type of physical activity do you participate in: none seatbelt use: sometimes do you feel safe at home: Yes ROS ROS Narrative Admission Review of Systems: CONSTITUTIONAL: No weight loss, fever, chills, + weakness or fatigue. HEENT: Eyes: No visual loss, blurred vision, double vision or yellow sclerae. Ears, Nose, Throat: No hearing loss, sneezing, congestion, runny nose or sore throat. SKIN: No rash or itching, lesions, wounds except + notable stage ecchymoses, abrasions. CARDIOVASCULAR:+ Chest pain, complains of increased recent swelling/edema. No palpitations, orthopnea, syncopal events. RESPIRATORY: + Dyspnea worse with exertion. No cough or sputum, wheezing, hemoptysis. GASTROINTESTINAL: + Chronically dark stools on Fe supplementation. No anorexia, nausea, vomiting or diarrhea, abdominal pain, melena, BRBPR. GENITOURINARY: No dysuria, frequency, urgency or retention. NEUROLOGICAL: No headache, dizziness, syncope, paralysis, ataxia, numbness or tingling in the extremities, focal weakness, change in bowel or bladder control, seizure. MUSCULOSKELETAL: + muscle, back pain, joint pain or stiffness. HEMATOLOGIC: + Acute on chronic anemia, easy bleeding/bruising. LYMPHATICS: No enlarged nodes. No history of splenectomy. PSYCHIATRIC: + History of anxiety and depression. ENDOCRINOLOGIC: No reports of sweating, cold or heat intolerance. No polyuria or polydipsia. ALLERGIES: No history of asthma, hives, eczema or rhinitis. Vital Signs Vital Signs Vital Signs: 05/25/25 17:49 05/25/25 18:46 05/25/25 20:19 Temperature 97.4 F L 98.2 F Temperature Source Temporal Oral Pulse Rate 100 80 Respiratory Rate 17 20 H Respiratory Effort Normal Respiratory Pattern Normal Blood Pressure 119/56 L 98/41 L Blood Pressure Mean 77 60 Blood Pressure Source Monitor Blood Pressure Position Semi-Fowlers Blood Pressure Location Left Arm Pulse Ox 98 98 Oxygen Delivery Method Room Air Room Air Weight Weight: 190 lb 0.615 oz Body Mass Index (BMI) 29.7 Physical Exam Narrative Physical Examination: General: Awake, alert, oriented x 3 and cooperative, laying in the ED bed, fatigued appearing, pale, unit PRBC being administered currently. Skin: Pale l color, normal turgor, no icterus, no cyanosis, notable stage ecchymoses especially to the upper extremities as well as occasional abrasion. HEENT: AT/NC, EOMI, PERRLA, mildly dry MM, no carotid bruits or JVD noted. Lungs: Diminished, greater bases, appropriate effort, no appreciated rales, ronchi or wheezing. Heart: Regular rate and rhythm; no gallop, rub audible, + notable HM. Abdomen: Soft, obese, NTTP, ND, mildly hyperactive BS, no appreciated HSM. Extremities: No cyanosis, no clubbing, no significant distal pitting edema noted. Neurological: Patient awake, alert, oriented as noted, cognitive function intact; pupils equally reactive to light and accommodation, cranial nerves grossly normal, moving all 4 extremities, no focal deficits, strength moderately to severely globally decreased. Psychiatric: Affect appears flat, fatigued, no acute evidence of depressive or anxiety feelings but does have underlying history. Results Lab / Micro Data Labs: Laboratory Results - last 24 hr 05/25/25 17:55: PT 14.0, INR 1.1, APTT 36.5 H, Troponin T High Sens 28 H 05/25/25 18:34: Blood Type O POSITIVE, Antibody Screen NEGATIVE, Crossmatch See Detail Micro: Microbiology 05/25/25 20:50 Stool Stool Occult Blood (MARQUEZ) - Final Assessment & Plan Assessment/Plan (1) Acute anemia: PLAN: Plan The patient is a 65 y/o F w/ PMHx: Tobacco use, Hx VTE, Anxiety and Depression, Hypothyroidism, HTN, HLD, Chronic macrotic anemia/Fe deficiency anemia w/ Chronic GI blood loss/Chart reported Hx pernicious anemia, Hypothyroidism, GERD, PATRICA, Hx TIA/CVA w/ Chronic expressive language disorder/Chronic dysarthria, PAD w/ arterial embolism and thrombosis of lower extremity with intervention, CAD status post PCI, carotid disease status post left CEA who presents to the [facility] ED on 05/25/2025 with history of generalized fatigue and anemia recently evaluated by her primary care on day of presentation with outpatient labs including imaging and venous duplex ultrasound secondary to swelling with noted left posterior tibial vein DVT at that time prescribed Eliquis however low labs that were obtained were notable with a hemoglobin of 6.1 prompting PCP to refer to the ED for evaluation. #1. Acute anemia on chronic, possibly acute blood loss anemia despite negative guaiac secondary to acute on chronic GI bleed which is chart reported previously in patient history, unclear with patient's chronic macrocytic anemia/pernicious anemia chart reported with associated hypotension: Given stable vital signs will admit to PCU, will maintain on judicious IV fluids, will continue to cycle H&H, will continue with ED initiated 1 unit PRBC, maintain on IV PPI, will obtain full iron panel as well as vitamin B12 and folic acid, maintain on fall precautions, continue evaluate #2, will allow clears until midnight with n.p.o. status following in case of GI intervention need with consultation requested, PT/OT/case management consulted for discharge planning. #2. Chest Pain, dyspnea, suspect in large component secondary to #1: EKG in ED with SR with mildly prolonged QRS at 130 ms, QTc slightly prolonged 510 ms with no acute evidence of ischemia similar to previous EKG 09/26/2024., initial trop 28 with repeat delta pending. Early in the day per PCP outpatient CXR with with mild basilar predominant chronic interstitial lung disease with otherwise no acute cardiopulmonary findings. Will maintain on a monitored bed, will continue to cycle cardiac enzymes, repeat EKGs as needed and upon transition to the floor, magnesium level requested, FLP in a.m., defer any antiplatelet therapy in the situation given #1 further evaluation as noted, echocardiogram requested. Will defer consideration of any stress testing at this time given #1 but may need to do further evaluation at a later date. Will avoid any QT prolonging PRN agents. #3. Recent acute left lower extremity DVT with history of previous VTE: Patient was given a prescription for Eliquis however because her labs were notable for worsened anemia this was held, will continue to closely monitor while awaiting further evaluation as noted of #1, once clinically appropriate may need to initiate on heparin drip with repeat hemoglobin trending prior to consideration of oral anticoagulant. SCDs in the interim. #4. CAD: Status post previous PCI, temporally holding aspirin given #1 as noted, continue statin, not on a beta-linn or DANETTE inhibitor/ARB per current list, BP normal range, defer at this time. #5. Carotid disease: Status post previous left CEA, temporally holding aspirin, continue statin, not on hypertensive regimen but but clarified to be certain. #6. History of TIA/CVA: Noted chronic expressive language disorder as well as chronic dysarthria associated with previous stroke, will hold aspirin therapy, continue statin, not a hypertensive regimen but clarified to be certain. #7. PAD: Previous history of arterial embolism in the lower extremity with thrombosis require intervention, holding aspirin therapy as noted, continue statin, not on hypertensive regimen per current list for clarifying. #8. Anxiety and depression: Will continue patient home Cymbalta regimen, encourage continued follow-up outpatient as previously arranged. #9. Tobacco Abuse: Encouraged cessation, inpatient consultation per RT, NR if desired. #10. Hypothyroidism: Will continue patient home levothyroxine regimen. #11. Hypertension: Noted history, per current list does not appear to be on regimen, clarified with certain however recent BP in the ED normal range, add if appropriate. #12. Hyperlipidemia: Continue patient on statin therapy. #13. GERD: Will temporally hold famotidine maintain on IV PPI as noted. #14. PATRICA: CPAP nightly. #15. DVT prophylaxis: SCDs. #16. CODE status: Patient HCPOA is her as well as son and daughter as secondary and living will is currently in place. Discussed CODE status at length including difference between FULL code, DNR-CCA and DNR-CC status. Following discussions about the differences in these status, requested Full Code status. Advanced Care Planning Face to Face Time: 16 minutes. Charges/Coding Visit Charges Inpatient E&M: 53102 Init Hosp L3 Procedures Hospitalists Procedures: 19538 Advncd Care Plan 30 Min
[2025-05-25 21:19] LABS: Troponin T High Sens 2 HR 26 ng/L (<=14)
[2025-05-25 22:05] LABS: Magnesium 2.3 mg/dL (1.5-2.2)
--- NOTE | 2025-05-25 22:46 | ECHOD_ITS ---
Reason For Study Reason For Study: DYSPNEA/SOB Procedure This was a 2D Doppler, Color Flow transthoracic echocardiogram. The study was technically difficult. Exam performed portable in patient room. Left Ventricle Normal LV size. The estimated ejection fraction is 60 %. Unable to assess diastolic dysfunction. No regional wall motion abnormalities noted. Right Ventricle Normal RV size. Normal systolic function. Atria The left atrium is mildly enlarged. Normal right atrium. No doppler evidence for ASD. Mitral Valve There is no mitral valve stenosis. Moderate (2+) mitral valve insufficiency. Tricuspid Valve There is no tricuspid stenosis. Mild (1+) tricuspid valve insufficiency. Pulmonary artery systolic pressure is 45-50 mmHg. Aortic Valve Severe diffuse aortic valve thickening. Severe aortic stenosis. Mild (1+) aortic valve insufficiency. Pulmonic Valve There is no pulmonic valvular stenosis. No pulmonic valve insufficiency. Great Vessels Normal sized aortic root. Pericardium/Pleural No pericardial effusion. MMode/2D Measurements & Calculations LVIDd: 5.0 cm IVSd: 1.2 cm LVOT diam: 1.9 cm LVIDs: 3.1 cm LVPWd: 1.2 cm LVOT area: 2.8 cm2 RVDd: 2.6 cm FS: 36.8 % Ao root diam: 2.8 cm LAV(MOD-bp): 94.7 ml LVAd ap4: 34.9 cm2 LAV(MOD-bp) Indexed: 47.9 ml/m2 LVLd ap4: 8.2 cm LAV(MOD-sp2): 83.7 ml EDV(MOD-sp4): 125.5 ml LAV(MOD-sp4): 103.5 ml EDV(sp4-el): 125.8 ml LVAs ap4: 22.2 cm2 LVLs ap4: 7.4 cm ESV(MOD-sp4): 55.8 ml ESV(sp4-el): 57.0 ml EF(MOD-sp4): 55.6 % EF(sp4-el): 54.7 % LVAd ap2: 35.2 cm2 SV(MOD-sp4): 69.7 ml SV(MOD-sp2): 71.5 ml LVLd ap2: 8.9 cm SI(MOD-sp4): 35.2 ml/m2 SI(MOD-sp2): 36.2 ml/m2 EDV(MOD-sp2): 118.5 ml EDV(sp2-el): 118.3 ml LVAs ap2: 21.0 cm2 LVLs ap2: 8.1 cm ESV(MOD-sp2): 47.0 ml ESV(sp2-el): 46.3 ml EF(MOD-sp2): 60.4 % SV(sp4-el): 68.8 ml LA dimension(2D): 4.6 cm LA A4 area: 27.9 cm2 RA A4 area: 14.4 cm2 TAPSE: 2.9 cm Time Measurements MV dec time: 0.17 sec Doppler Measurements & Calculations MV E max elier: 122.8 cm/sec Lat Peak E' Elier: 7.0 cm/sec Med Peak E' Elier: 8.1 cm/sec MV A max elier: 121.0 cm/sec E/E' lat: 17.5 E/E' med: 15.1 MV E/A: 1.0 MV V2 max: 129.1 cm/sec MV P1/2t max elier: 121.5 cm/sec Ao V2 max: 404.6 cm/sec MV max P.7 mmHg MV P1/2t: 47.5 msec Ao max P.5 mmHg MV V2 mean: 78.9 cm/sec Ao V2 mean: 322.0 cm/sec MV mean P.8 mmHg MV dec slope: 749.4 cm/sec2 Ao mean P.3 mmHg MV V2 VTI: 23.3 cm MVA(P1/2t): 4.6 cm2 Ao V2 VTI: 108.4 cm AV (velocity ratio): 0.22 MVA(VTI): 2.9 cm2 AMADO(I,D): 0.63 cm2 AMADO(V,D): 0.73 cm2 AI max elier: 346.2 cm/sec LV V1 max: 104.4 cm/sec MR max elier: 606.1 cm/sec AI max P.1 mmHg LV V1 max P.4 mmHg MR max P.0 mmHg AI dec slope: 268.7 cm/sec2 LV V1 mean P.5 mmHg MR mean elier: 480.4 cm/sec AI P1/2t: 377.3 msec LV V1 mean: 76.2 cm/sec MR mean P.2 mmHg LV V1 VTI: 24.2 cm MR VTI: 210.3 cm SV(LVOT): 68.7 ml PA V2 max: 127.8 cm/sec TR max elier: 269.0 cm/sec TR max P.5 mmHg ECHO/Echo Complete Interpretation Summary The estimated ejection fraction is 60 %. The left atrium is mildly enlarged. Moderate (2+) mitral valve insufficiency. Severe aortic stenosis. Mild (1+) aortic valve insufficiency. Ordering Physician: Esperanza Myers Referring Physician: Matt Salazar Chi Performed By: Khloe Andrew, CHIDICS, RVT
--- NOTE | 2025-05-25 22:46 | EKG12_ITS ---
Test Reason : CP ADMIT Blood Pressure : */* mmHG Vent. Rate : 82 BPM Atrial Rate : 82 BPM P-R Int : 164 ms QRS Dur : 138 ms QT Int : 440 ms P-R-T Axes : 69 -26 47 degrees QTcB Int : 514 ms Normal sinus rhythm Right bundle branch block Abnormal ECG When compared with ECG of 25-May-2025 19:15, MANUAL COMPARISON REQUIRED DATA IS UNCONFIRMED Confirmed by DENICE FAROOQ, RICCARDO ([id number]), editor sound RAKAN RODRÍGUEZ ([id number]) on 05/29/2025 6:33:40 AM Referred By: Confirmed By: RICCARDO GALDAMEZ MD
[2025-05-25] MEDS: Pantoprazole Sodium 40 MG in 0.9% Normal Saline (100mL MB+) 100 ML 330 MG IV (23:46)
[2025-05-25] MEDS: 0.9% Saline Lock 10 ML Syringe IV (23:47)
[2025-05-25] MEDS: 0.9% Normal Saline (1000mL) 1,000 ML 100 ML IV (23:48)
[2025-05-26] VITALS (26 sets, daily range): BP systolic 91–123; BP diastolic 44–78; PULSE 63–83; RESP 15–26; TEMP 35.8–37; O2SAT 88–99; BMI 29.5
[2025-05-26 00:15] LABS: Hematocrit 22.5 % (37-47); Hemoglobin 6.7 g/dL (12.0-15.0)
[2025-05-26 00:43] LABS: Troponin T High Sens 4 HR 25 ng/L (<=14)
--- OUTSIDE RECORDS SUMMARY | 2025-05-26 00:57 | XMS RPT_ITS | CCD ---
Author Organization [facility] Care Team Providers Care Wetlands Conservation Laborer Name Role Phone Manda, RN, Mena Taylor Unavailable Unavailabl e MIGUEL, CELINE Unavailable Unavailable MIGUEL, CELINE Unavailable Unavailable AMI ROSENK A Unavailable Unavailable NELY CALZADA Unavailable Unavailable ISMAELCLIFTON BROWN Unavailable Unavailable MATT MARTIN-CHI Unavailable Unavailable MIGUEL, CELINE Unavailable Unavailable PROVIDER, UNKNOWN Attending Unavailable PROVIDER, UNKNOWN Admitting Unavailable Ismael DO Nerissa Unavailable AttReginald palumboa Unavailable [facility] OFFICE, Senait Chau Unavailable Grace RN, Janay [...] Dr. Martin Gutierrez Chi Primary Care Provider [phone] Dr. Efrain Samuel Attending Provider Dr. Martin Gutierrez Chi Referring Provider Dr. Simon Ulloa Attending Provider Matt, Dr. Martin Perdue Primary Care Provider Dr. Martin Gutierrez Chi Primary Care Provider Matt, Dr. Martin Perdue Referring Provider Isckarus, Dr. Montes Attending Provider Matt, Dr. Martin Perdue Primary Care Provider Matt, Dr. Martin Perdue Referring Provider Isckar, Dr. Montes Attending Provider Sommer BOBBIN COLLECTOR, BOBBIN COLLECTOR-C Ifrah Attending Provider Matt, Dr. Martin Perdue [...] Provider Matt, Martin Chi Attending Unavailable Matt, Matrin Chi Primary Care Unavailable Matt, Martin Chi Attending Unavailable Matt, Martin Chi Primary Care Unavailable Matt, Martin Chi Primary Care Unavailable PascualkarusJulietaour Attending Unavailable Matt, Martin Chi Referring Unavailable Gino BOBBIN COLLECTOR, Margi Attending Unavailable Matt, Martin Chi Primary Care Unavailable Gino BOBBIN COLLECTOR, Margi Referring Unavailable Matt, Martin Chi Primary [...] Matt, Martin Chi Primary Care Unavailable Gino BOBBIN COLLECTOR, Margi Attending Unavailable Matt, Martin Chi Attending [...] Matt, Martin Chi Primary Care Unavailable Gino BOBBIN COLLECTOR, Margi Attending Unavailable Gino BOBBIN COLLECTOR, Margi Referring Unavailable Matt, Martin Chi Primary Care Unavailable Matt, Martin Chi Referring Unavailable Isckarus, Mansour Attending Unavailable Matt, Mratin Chi Referring Unavailable Matt, Martin Chi Primary Care Unavailable PascualkarusJulietaour Attending Unavailable Allergies Allergy Classification Reported Allergen(s) Allergy Type Date of Onset Reaction(s) Facility Unclassified (1 source) Codeine/Codeine Derivatives; Translations: [Codeine/Codeine Derivatives] Allergy to substance (finding) [facility] Work Phone: (20 sources) atorvastatin; Translations: [LIPITOR] Drug Allergy 12-10-19 13 Severe muscle aches [facility] Work Phone: (20 sources) codeine; Translations: [CODEINE] Drug Allergy 01-10-20 11 GI upset, Other [facility] Work Phone: Comment on above: PT REPORTS GOING TO SLEEP AND HAS HARD TIME WAKING UP (20 sources) Hmg-Coa Reductase Inhibitors (Statins); Translations: [STATINS] allergy to substance 06-08-20 13 mylagias [facility] Work Phone: (2 sources) buPROPion; Translations: [BUPROPION HCL] Drug Allergy 09-08-19 06 [facility] Repository (1 source) Hmg-Coa Reductase Inhibitors (Statins); Translations: [BGPOVBU-STW-UTV REDUCTASE INHIBITORS] Propensity to adverse reactions (disorder) [facility] Repository (1 source) Opioid Agonists; Translations: [OPIOID ANALGESICS] Propensity to adverse reactions to drug (disorder) 09-08-19 06 [facility] (13 sources) atorvastatin Drug Allergy 11-07-19 22 Other [facility] Comment on above: unable to walk (1 source) atorvastatin Drug Allergy 05-01-20 [facility] Repository Medications Current Medications Medication Drug Class(es) Dates Sig (Normalized) Sig (Original) acetaminophen 500 mg oral tablet (13 sources) Start: 03-09-2021 take 2 tablets by mouth every six hours as needed for headache Acetaminophen (Tylenol Extra Strength) 500 mg Tablet Active 1000 mg PO EVERY 6 HOURS as needed for Headache March 09, 2021 12:00am [id number] 200 actuat albuterol 0.09 mg/actuat metered dose [...] TABS One tablet by mouth daily ASPIRIN [id number] Eliane Rodrigez PA-C End: 09-16-2010 take 1 [...] 01-09-2011 take 1 capsule by mo [facility] twice daily CYMBALTA, 30MG (Oral Capsule Delayed Release Particles) [address] Part bid for 30 days Quantity: 60 {Capsule} Refills: 4 Ordered: 23-Jan-2016 Nerissa Rodriguez DO, DO, Kathleen Start : 23-Jan-2016 Active Start: 01-09-2011 [facility] CYMBALTA 60 MG CPEP One tablet by mouth twice daily DULOXETINE HCL [id number] Efrain Samuel MD famotidine 40 mg oral [...] One tablet by mouth daily LEVOTHYROXINE SODIUM [id number] Efrain Samuel MD nitroglycerin 0.4 mg sublingual [...] 5 min up to 3 X NITROGLYCERIN [id number] Efrain Samuel MD Start: 01-09-2011 NITROGLYCERIN 0.4 MG SUBL 1 tablet under the tongue every 5 minutes times 3 as needed for chest pain. NITROGLYCERIN [id number] Anaya Everett BOBBIN COLLECTOR rosuvastatin calcium 40 mg oral tablet (20 [...] 2017 1:00am November 13, 2017 10:09am Vitamins A,C,Q-Rqlm-Zynyuj (Preservision Areds) 4,296 mcg-226 mg-90 mg capsule [...] Comments: thirty Comment on above: twenty[facility] to [facility] art thirty acetic acid 20 mg/ml [...] One tablet by mouth twice daily APIXABAN [id number] Mena Holman RN atorvastatin 40 mg oral tablet (20 sources) HMG-CoA Reductase Inhibitor Start: 07-15-2016 End: 01-15-2017 take 1 tablet by mouth once daily ATORVASTATIN CALCIUM 40 MG TABS One tablet by mouth daily ATORVASTATIN CALCIUM [id number] Anaya E Karlos WING Start: 05-05-2012 End: 12-09-2012 take 1 tablet by mouth once daily LIPITOR 80 MG TABS One tablet by mouth daily ATORVASTATIN CALCIUM [id number] Efrain Samule MD Start: 04-26-2009 End: 09-16-2010 take 1 [...] : 12-Dec-2008 Inactive Dextromethorphan (1 source) Uncompetitive N-zxzfce-H-aspartat e Receptor Antagonist, Sigma-1 Agonist Start: 10-28-2013 [...] 1 capsule by mouth every week ERGOCALCIFEROL, [id number] (Oral Capsule) 2 (two) Capsule weekly x4 wks and then 1 weekly for 120 days Quantity: 20 {Capsule} Refills: 0 Ordered: 25-Mar-2012 Edith Goeva RN Start : 21-Nov-2011 End : 20-Mar-2012 [...] October 14, 2017 10:41am lactobacillus rhamnosus gg [id number] unt oral capsule (1 source) Start: 11-21-2011 [...] TABS One tablet by mouth daily LISINOPRIL [id number] Eliane Rodrigez PA-C Start: 01-09-2011 take 1 tablet by lucia th once daily LISINOPRIL 5 MG TABS One tablet by mouth daily LISINOPRIL [id number] Efrain Samuel MD LORazepam 1 mg oral [...] daily METFORMIN HCL ER (OSM) 500 MG [id number] One tablet by mouth daily METFORMIN HCL [id number] Efrain Samuel MD metoprolol tartrate 50 mg [...] take ASA 30 mins before NIACIN (ANTIHYPERLIPIDEMIC) [id number] Tracy Valencia Start: 01-09-2011 End: 11-04-2011 take 1 tablet by mouth at bedtime NIASPAN 500 MG CR-TABS One tablet by mouth at bedtime, take ASA 30 mins before NIACIN (ANTIHYPERLIPIDEMIC) [id number] Tracy Valencia omeprazole 40 mg delayed release [...] CPDR One tablet by mouth daily OMEPRAZOLE [id number] Efrain Samuel MD phenazopyridine hydrochlorid e 100 [...] mouth twice daily RED YEAST RICE EXTRACT [id number] Eliane Rodrigez PA-C simvastatin 40 mg oral tablet (20 sources) HMG-CoA Reductase Inhibitor Start: 12-09-2012 End: 06-08-2013 take 1 tablet by mouth once daily SIMVASTATIN 40 MG TABS One tablet by mouth daily SIMVASTATIN [id number] Efrain Samuel MD Start: 01-09-2011 End: 07-01-2012 [...] Two tablets by mouth daily VARENICLINE TARTRATE [id number] Anaya Everett BOBBIN COLLECTOR vitamin b12 1 mg/ml injectable solution (1 [...] (20 sources) Start: 12-11-2015 End: 07-15-2016 take 63352 [IU] by mouth once daily VITAMIN D 1000 UNIT TABS 10,000 IU per day (OTC), One tablet by mouth daily CHOLECALCIFEROL [id number] Anaya Everett NP Start: 12-11-2015 take 1 tablet by lucia th once daily VITAMIN D 1000 UNIT TABS 10,000 IU per day (OTC), One tablet by mouth daily CHOLECALCIFEROL [id number] Efrain Samuel MD Start: 12-11-2015 End: 07-15-2016 take 1 tablet by mouth once daily VITAMIN D 1000 UNIT TABS 10,000 IU per day (OTC), One tablet by mouth daily CHOLECALCIFEROL [id number] Anaya Everett NP Start: 12-11-2015 take 1 tablet by lucia th once daily VITAMIN D 1000 UNIT TABS 10,000 IU per day (OTC), One tablet by mouth daily CHOLECALCIFEROL [id number] Efrain Samuel MD Start: 12-11-2015 End: 07-15-2016 take 1 tablet by mouth once daily VITAMIN D 1000 UNIT TABS 10,000 IU per day (OTC), One tablet by mouth daily CHOLECALCIFEROL [id number] Anaya Everett NP warfarin sodium 5 mg [...] (Unsp spec) [#/Vol] 0.67 10*3/uL Low 0.83-4.51 [facility] Absolute neutrophil countOrd ered By: Simon Ulloa on 05-01-2025 Neutrophils (Bld) [#/Vol] 3.7 10*3/uL 2.0-7.7 [facility] Automated lymphocyte count a s percentage of total leukocytesOrdered By: Simon Garnerarron on 05-01-2025 Lymphocytes/100 WBC Auto (Unsp spec) 12.9 % Low 19-41 [facility] Basophil percentageOrdered B y: Simon Garnerarron on 05-01-2025 Basophils/100 WBC (Bld) 0.8 % 0-1 [facility] CBC W/Diff, Automatedon Absolute Lymph 0.67 X10 3/uL Low 0.83-4.51 [facility] Comment on above: Performed By: #### L 501.2300, L500.2500, L501.5200, L100.0100 #### [facility] [address] [place], [address] Absolute Neut 3.7 X10 3/uL Normal 2.0-7.7 [facility] Comment on above: Performed By: #### L 501.2300, L500.2500, L501.5200, L100.0100 #### [facility] [address] [place], [address] Basophils/100 WBC (Bld) 0.8 % Normal 0-1 [facility] Comment on above: Performed By: #### L 501.2300, L500.2500, L501.5200, L100.0100 #### [facility] [address] [place], [address] Eosinophils/100 WBC (Bld) 0.6 % Normal 0-5 [facility] Comment on above: Performed By: #### L 501.2300, L500.2500, L501.5200, L100.0100 #### [facility] [address] [place], [address] Erythrocyte distribution width (RBC) [Ratio] 14.0 % Normal 11.6-14.6 [facility] Comment on above: Performed By: #### L 501.2300, L500.2500, L501.5200, L100.0100 #### [facility] [address] [place], [address] Hematocrit (Bld) [Volume fraction] 34.6 % Low 37-47 [facility] Comment on above: Performed By: #### L 501.2300, L500.2500, L501.5200, L100.0100 #### [facility] [address] [place], [address] Hemoglobin (Bld) [Mass/Vol] 11.1 g/dL Low 12.0-15.0 [facility] Comment on above: Performed By: #### L 501.2300, L500.2500, L501.5200, L100.0100 #### [facility] [address] [place], [address] IG% 0.400 Normal 0.0-0.9 [facility] Comment on above: Result Comment: IG% - Immature Granulocytes (promyelocytes, myelocytes and metamyelocytes) > 1% indicates that a LEFT SHIFT is Present. Performed By: #### L 501.2300, L500.2500, L501.5200, L100.0100 #### [facility] [address] [place], [address] Lymphocytes/100 WBC (Bld) 12.9 % Low 19-41 [facility] Comment on above: Performed By: #### L 501.2300, L500.2500, L501.5200, L100.0100 #### [facility] [address] [place], [address] MCH (RBC) [Entitic mass] 34.8 pg High 27.0-32.0 [facility] Comment on above: Performed By: #### L 501.2300, L500.2500, L501.5200, L100.0100 #### [facility] [address] [place], [id number] MCHC (RBC) [Mass/Vol] 32.1 g/dL Normal 32-36 [facility] Comment on above: Performed By: #### L 501.2300, L500.2500, L501.5200, L100.0100 #### [facility] [address] [place], [id number] MCV (RBC) [Entitic vol] 108.5 fL High 81-99 [facility] Comment on above: Performed By: #### L 501.2300, L500.2500, L501.5200, L100.0100 #### [facility] [address] [place], [id number] Monocytes/100 WBC (Bld) 13.9 % High 0-10 [facility] Comment on above: Performed By: #### L 501.2300, L500.2500, L501.5200, L100.0100 #### [facility] [address] [place], [address] Neutrophils/100 WBC (Bld) 71.4 % High 47-70 [facility] Comment on above: Performed By: #### L 501.2300, L500.2500, L501.5200, L100.0100 #### [facility] [address] [place], [address] Nucleated RBC (Bld) [#/Vol] 0 10*3/uL Normal 0-5 [facility] Comment on above: Performed By: #### L 501.2300, L500.2500, L501.5200, L100.0100 #### [facility] [address] [place], [address] Platelet mean volume (Bld) [Entitic vol] 9.7 fL Normal 6.2-12.0 [facility] Comment on above: Performed By: #### L 501.2300, L500.2500, L501.5200, L100.0100 #### [facility] [address] [place], [address] Platelets (Bld) [#/Vol] 238 10*3/uL Normal 150-450 [facility] Comment on above: Performed By: #### L 501.2300, L500.2500, L501.5200, L100.0100 #### [facility] [address] [place], [address] RBC (Bld) [#/Vol] 3.19 10*6/uL Low 4.2-5.4 [facility] Comment on above: Performed By: #### L 501.2300, L500.2500, L501.5200, L100.0100 #### [facility] [address] [place], [address] RDW SD 55.7 fl High 35.1-43.9 [facility] Comment on above: Performed By: #### L 501.2300, L500.2500, L501.5200, L100.0100 #### [facility] [address] [place], [address] WBC (Bld) [#/Vol] 5.2 10*3/uL Normal 4.4-11.0 [facility] Comment on above: Performed By: #### L 501.2300, L500.2500, L501.5200, L100.0100 #### [facility] [address] [place], [address] Eosinophil percentageOrdered By: Simon Ulloa on 05-01-2025 Eosinophils/100 WBC (Bld) 0.6 % 0-5 [facility] Erythrocyte distribution wid th ratioOrdered By: Simon Ulloa on 05-01-2025 Erythrocyte distribution width (RBC) [Ratio] 14.0 % 11.6-14.6 [facility] Erythrocyte distribution wid th standard deviationOrdered By: Simon Ulloa on 05-01-2025 Erythrocyte distribution width (RBC) [Ratio] 55.7 fl High 35.1-43.9 [facility] Ferritinon 05-01-2025 Ferritin [Mass/Vol] 66 ng/mL Normal 22-378 [facility] Comment on above: Performed By: #### L 501.2300, L500.2500, L501.5200, L100.0100 #### [facility] [address] [place], [place], [address] Hematocrit Auto (Bld) [Volum e fraction]Ordered By: Simon Ulloa on 05-01-2025 Hematocrit (Bld) [Volume fraction] 34.6 % Low 37-47 [facility] Hemoglobin measurementOrdere d By: Simon Ulloa on 05-01-2025 Hemoglobin (Bld) [Mass/Vol] 11.1 g/dL Low 12.0-15.0 [facility] Immature granulocytes/100 WB C Auto (Bld)Ordered By: [facility] on 05-01-2025 Immature granulocytes/100 WBC (Bld) 0.400 % 0.0-0.9 [facility] Comment on above: IG% - Immature Granu locytes (promyelocytes, myelocytes and metamyelocytes) > 1% indicates that a LEFT SHIFT is Present. Iron measurement (mass/mass) Ordered By: Simon Ulloa on 05-01-2025 Iron (Unsp spec) [Mass/Mass] 31 ug/dL Low 50-170 [facility] Iron+Iron Binding Capacityon 05-01-2025 Iron [Mass/Vol] 31 ug/dL Low 50-170 [facility] Comment on above: Performed By: #### L 501.2300, L500.2500, L501.5200, L100.0100 #### [facility] [address] [place], [place], [id number] IRON SATURATION 10.0 Low 13-59 [facility] Comment on above: Performed By: #### L 501.2300, L500.2500, L501.5200, L100.0100 #### [facility] [address] [place], [address] TIBC 322 ug/dL Normal 250-450 [facility] Comment on above: Performed By: #### L 501.2300, L500.2500, L501.5200, L100.0100 #### [facility] [address] [place], [address] UIBC 291 ug/dL Normal 228-428 [facility] Comment on above: Performed By: #### L 501.2300, L500.2500, L501.5200, L100.0100 #### [facility] [address] [place], [address] MCV (mean corpuscular volume ) determinationOrdered By: Simon Ulloa on 05-01-2025 MCV (RBC) [Entitic vol] 108.5 fL High 81-99 [facility] Mean corpuscular hemoglobin (MCH) determinationOrdered By: Simon Ulloa on 05-01-2025 MCH (RBC) [Entitic mass] 34.8 pg High 27.0-32.0 [facility] Mean corpuscular hemoglobin concentration (MCHC) determinationOrdered By: Simon Ulloa on 05-01-2025 MCHC (RBC) [Mass/Vol] 32.1 g/dL 32-36 [facility] Mean platelet volume determi nationOrdered By: Simon Ulloa on 05-01-2025 Platelet mean volume (Bld) [Entitic vol] 9.7 fL 6.2-12.0 [facility] Monocyte percentageOrdered B y: Simon Ulloa on 05-01-2025 Monocytes/100 WBC (Bld) 13.9 % High 0-10 [facility] Neutrophil percentageOrdered By: Simon Ulloa on 05-01-2025 Neutrophils/100 WBC (Bld) 71.4 % High 47-70 [facility] No Panel InformationOrdered By: Simon Ulloa on 05-01-2025 Unsaturated Iron Binding Capacity 291 ug/dL 228-428 [facility] Nucleated red blood cell per centageOrdered By: Simon Ulloa on 05-01-2025 Nucleated RBC/100 WBC (Bld) [Ratio] 0 % 0-5 [facility] Oncology Visit Reporton 09 Oncology Visit Report [facility] [place] [address] OFFICE VISIT Date of Service: 05/01/25 1534 MR#: [id number] Acct: [id number] Name: ANGELES LARIOS Rep #: [id number] : 1960 From: Simon Ulloa MD Age/Sex: 65/F Location: [facility] [place] Status: Signed HPI Subjective Date of Service [...] capsule studies were done April 2021 at [facility], according to patient 2 colonic vascular [...] stenosis Dysarthria Atherosclerosis of coronary artery of mentasta heart without angina pectoris Essential (primary) hypertension [...] History Father , at age 38, from [place] Myocardial infarction cardiomopathy Mother Atrial fibrillation Hypertension [...] as documented (more content not included)... Normal [facility] Platelet countOrdered By: Darryl Ulloa on 05-01-2025 Platelets (Bld) [#/Vol] 238 10*3/uL 150-450 [facility] RBC Auto (Bld) [#/Vol]Ordere d By: Simon Ulloa on 05-01-2025 RBC (Bld) [#/Vol] 3.19 10*6/uL Low 4.2-5.4 [facility] Retic Panelon 05-01-2025 IM RET FRACTION 27.80 High 3.00-15.90 [facility] Comment on above: Performed By: #### L 501.2300, L500.2500, L501.5200, L100.0100 #### [facility] [address] [place], [address] RET-HE 34.6 pg Normal 30-35 [facility] Comment on above: Performed By: #### L 501.2300, L500.2500, L501.5200, L100.0100 #### [facility] [address] [place], [address] Retic Count 4.64 High 0.5-1.5 [facility] Comment on above: Performed By: #### L 501.2300, L500.2500, L501.5200, L100.0100 #### [facility] [address] [place], [address] Reticulocyte hemoglobin equi valent (RET-He) measurementOrdered By: Simon Ulloa on 05-01-2025 Hemoglobin (Reticulocytes) [Entitic mass] 34.6 pg 30-35 [facility] Reticulocytes Auto (Bld) [#/ Vol]Ordered By: Simon Ulloa on 05-01-2025 Reticulocytes/100 RBC (Bld) 4.64 % High 0.5-1.5 [facility] Serum or plasma ferritin ibrahima surement (mass/volume)Ordered By: Simon Ulloa on 05-01-2025 Ferritin [Mass/Vol] 66 ng/mL 22-378 [facility] Serum or plasma iron saturat ion measurement (mass fraction)Ordered By: Simon Ulloa on 05-01-2025 Iron saturation [Mass fraction] 10.0 % Low 13-59 [facility] White blood cell (WBC) count Ordered By: Simon Ulloa on 05-01-2025 WBC (Bld) [#/Vol] 5.2 10*3/uL 4.4-11.0 [facility] Absolute lymphocyte countOrd ered By: Martin Gutierrez on 12-22-2024 Lymphocytes Auto (Unsp spec) [#/Vol] 1.19 10*3/uL 0.83-4.51 [facility] Absolute neutrophil countOrd ered By: Martin Gutierrez on 12-22-2024 Neutrophils (Bld) [#/Vol] 4.8 10*3/uL 2.0-7.7 [facility] Anion gap in Serum or Plasma Ordered By: Martin Gutierrez on 12-22-2024 Anion gap [Moles/Vol] 10 mmol/L 5-15 [facility] Automated lymphocyte count a s percentage of total leukocytesOrdered By: Martin Gutierrez on 12-22-2024 Lymphocytes/100 WBC Auto (Unsp spec) 17.5 % Low 19-41 [facility] BUN/creatinine ratioOrdered By: Martin Gutierrez on 12-22-2024 Urea nitrogen/Creatinine [Mass ratio] 20.8 mg/mg High 10-20 [facility] Basophil percentageOrdered B y: Martin Gutierrez on 12-22-2024 Basophils/100 WBC (Bld) 0.9 % 0-1 [facility] Bilirubin, totalOrdered By: Martin Gutierrez on 12-22-2024 Bilirubin [Mass/Vol] mg/dL 0.00-1.30 [facility] CBC W/Diff, Automatedon Absolute Lymph 1.19 X10 3/uL Normal 0.83-4.51 [facility] Comment on above: Performed By: #### L 503.6030, L501.9520, L500.4050, L503.6550, L100.0100, L506.1001 #### [facility] [address] [place], [address] Absolute Neut 4.8 X10 3/uL Normal 2.0-7.7 [facility] Comment on above: Performed By: #### L 503.6030, L501.9520, L500.4050, L503.6550, L100.0100, L506.1001 #### [facility] [address] [place], [address] Basophils/100 WBC (Bld) 0.9 % Normal 0-1 [facility] Comment on above: Performed By: #### L 503.6030, L501.9520, L500.4050, L503.6550, L100.0100, L506.1001 #### [facility] [address] [place], [address] Eosinophils/100 WBC (Bld) 1.2 % Normal 0-5 [facility] Comment on above: Performed By: #### L 503.6030, L501.9520, L500.4050, L503.6550, L100.0100, L506.1001 #### [facility] [address] [place], [address] Erythrocyte distribution width (RBC) [Ratio] 13.4 % Normal 11.6-14.6 [facility] Comment on above: Performed By: #### L 503.6030, L501.9520, L500.4050, L503.6550, L100.0100, L506.1001 #### [facility] [address] [place], [address] Hematocrit (Bld) [Volume fraction] 36.7 % Low 37-47 [facility] Comment on above: Performed By: #### L 503.6030, L501.9520, L500.4050, L503.6550, L100.0100, L506.1001 #### [facility] [address] [place], [address] Hemoglobin (Bld) [Mass/Vol] 11.9 g/dL Low 12.0-15.0 [facility] Comment on above: Performed By: #### L 503.6030, L501.9520, L500.4050, L503.6550, L100.0100, L506.1001 #### [facility] [address] [place], [address] IG% 0.400 Normal 0.0-0.9 [facility] Comment on above: Result Comment: IG% - Immature Granulocytes (promyelocytes, myelocytes and metamyelocytes) > 1% indicates that a LEFT SHIFT is Present. Performed By: #### L 503.6030, L501.9520, L500.4050, L503.6550, L100.0100, L506.1001 #### [facility] [address] [place], [address] Lymphocytes/100 WBC (Bld) 17.5 % Low 19-41 [facility] Comment on above: Performed By: #### L 503.6030, L501.9520, L500.4050, L503.6550, L100.0100, L506.1001 #### [facility] [address] [place], [address] MCH (RBC) [Entitic mass] 34.8 pg High 27.0-32.0 [facility] Comment on above: Performed By: #### L 503.6030, L501.9520, L500.4050, L503.6550, L100.0100, L506.1001 #### [facility] [address] [place], [address] MCHC (RBC) [Mass/Vol] 32.4 g/dL Normal 32-36 [facility] Comment on above: Performed By: #### L 503.6030, L501.9520, L500.4050, L503.6550, L100.0100, L506.1001 #### [facility] [address] [place], [address] MCV (RBC) [Entitic vol] 107.3 fL High 81-99 [facility] Comment on above: Performed By: #### L 503.6030, L501.9520, L500.4050, L503.6550, L100.0100, L506.1001 #### [facility] [address] [place], [address] Monocytes/100 WBC (Bld) 9.9 % Normal 0-10 [facility] Comment on above: Performed By: #### L 503.6030, L501.9520, L500.4050, L503.6550, L100.0100, L506.1001 #### [facility] [address] [place], [address] Neutrophils/100 WBC (Bld) 70.1 % High 47-70 [facility] Comment on above: Performed By: #### L 503.6030, L501.9520, L500.4050, L503.6550, L100.0100, L506.1001 #### [facility] [address] [place], [address] Nucleated RBC (Bld) [#/Vol] 0 10*3/uL Normal 0-5 [facility] Comment on above: Performed By: #### L 503.6030, L501.9520, L500.4050, L503.6550, L100.0100, L506.1001 #### [facility] [address] [place], [address] Platelet mean volume (Bld) [Entitic vol] 9.5 fL Normal 6.2-12.0 [facility] Comment on above: Performed By: #### L 503.6030, L501.9520, L500.4050, L503.6550, L100.0100, L506.1001 #### [facility] [address] [place], [address] Platelets (Bld) [#/Vol] 296 10*3/uL Normal 150-450 [facility] Comment on above: Performed By: #### L 503.6030, L501.9520, L500.4050, L503.6550, L100.0100, L506.1001 #### [facility] [address] [place], [address] RBC (Bld) [#/Vol] 3.42 10*6/uL Low 4.2-5.4 [facility] Comment on above: Performed By: #### L 503.6030, L501.9520, L500.4050, L503.6550, L100.0100, L506.1001 #### [facility] [address] [place], [address] RDW SD 52.9 fl High 35.1-43.9 [facility] Comment on above: Performed By: #### L 503.6030, L501.9520, L500.4050, L503.6550, L100.0100, L506.1001 #### [facility] [address] [place], [address] WBC (Bld) [#/Vol] 6.8 10*3/uL Normal 4.4-11.0 [facility] Comment on above: Performed By: #### L 503.6030, L501.9520, L500.4050, L503.6550, L100.0100, L506.1001 #### [facility] [address] [place], [address] Carbon dioxide, total [Moles /volume] in Central venous bloodOrdered By: Martin Gutierrez on 12-22-2024 CO2 [Moles/Vol] 23.2 mmol/L 21.0-32.0 [facility] Chloride assayOrdered By: Cruzito Guiterrez on 12-22-2024 Chloride [Moles/Vol] 106 mmol/L 98-108 [facility] Comprehensive Metabolic Prof ilon 12-22-2024 Albumin [Mass/Vol] 4.0 g/dL Normal 3.4-4.8 [facility] Comment on above: Performed By: #### L 503.6030, L501.9520, L500.4050, L503.6550, L100.0100, L506.1001 #### [facility] [address] [place], [address] Albumin/Globulin [Mass ratio] 1.7 {ratio} Normal 0.9-2.4 [facility] Comment on above: Performed By: #### L 503.6030, L501.9520, L500.4050, L503.6550, L100.0100, L506.1001 #### [facility] [address] [place], [address] ALK PHOS 85 U/L Normal 35-104 [facility] Comment on above: Performed By: #### L 503.6030, L501.9520, L500.4050, L503.6550, L100.0100, L506.1001 #### [facility] [address] [place], [address] ALT [Catalytic activity/Vol] 14 U/L Normal <=34 [facility] Comment on above: Performed By: #### L 503.6030, L501.9520, L500.4050, L503.6550, L100.0100, L506.1001 #### [facility] [address] [place], [address] AST [Catalytic activity/Vol] 16 U/L Normal <=31 [facility] Comment on above: Performed By: #### L 503.6030, L501.9520, L500.4050, L503.6550, L100.0100, L506.1001 #### [facility] [address] [place], [address] BUN/CRE 20.8 RATIO High 10-20 [facility] Comment on above: Performed By: #### L 503.6030, L501.9520, L500.4050, L503.6550, L100.0100, L506.1001 #### [facility] [address] [place], [address] Calcium [Mass/Vol] 9.0 mg/dL Normal 7.6-11.0 [facility] Comment on above: Performed By: #### L 503.6030, L501.9520, L500.4050, L503.6550, L100.0100, L506.1001 #### [facility] [address] [place], [address] Chloride [Moles/Vol] 106 mmol/L Normal 98-108 [facility] Comment on above: Performed By: #### L 503.6030, L501.9520, L500.4050, L503.6550, L100.0100, L506.1001 #### [facility] [address] [place], [address] CO2 [Moles/Vol] 23.2 mmol/L Normal 21.0-32.0 [facility] Comment on above: Performed By: #### L 503.6030, L501.9520, L500.4050, L503.6550, L100.0100, L506.1001 #### [facility] [address] [place], [address] Creatinine [Mass/Vol] 0.65 mg/dL Low 0.70-1.20 [facility] Comment on above: Performed By: #### L 503.6030, L501.9520, L500.4050, L503.6550, L100.0100, L506.1001 #### [facility] [address] [place], [address] GAP 10 Normal 5-15 [facility] Comment on above: Performed By: #### L 503.6030, L501.9520, L500.4050, L503.6550, L100.0100, L506.1001 #### [facility] [address] [place], [address] GFR/1.73 sq M.predicted among non-blacks MDRD (S/P/Bld) [Vol rate/Area] 97 mL/min/{1.73_m2} Normal >60 [facility] Comment on above: Result Comment: mL/m in/1.73m2 CKD-EPI Creatinine Equation (2020) Performed By: #### L 503.6030, L501.9520, L500.4050, L503.6550, L100.0100, L506.1001 #### [facility] [address] [place], [address] Globulin (S) [Mass/Vol] 2.3 g/dL Normal 2.2-4.2 [facility] Comment on above: Performed By: #### L 503.6030, L501.9520, L500.4050, L503.6550, L100.0100, L506.1001 #### [facility] [address] [place], [address] Glucose [Mass/Vol] 123 mg/dL High 70-99 [facility] Comment on above: Performed By: #### L 503.6030, L501.9520, L500.4050, L503.6550, L100.0100, L506.1001 #### [facility] [address] [place], [address] Potassium [Moles/Vol] 3.9 mmol/L Normal 3.3-5.1 [facility] Comment on above: Performed By: #### L 503.6030, L501.9520, L500.4050, L503.6550, L100.0100, L506.1001 #### [facility] [address] [place], [address] Sodium [Moles/Vol] 139 mmol/L Normal 133-145 [facility] Comment on above: Performed By: #### L 503.6030, L501.9520, L500.4050, L503.6550, L100.0100, L506.1001 #### [facility] [address] [place], [address] T BILI < 0.15 Normal 0.00-1.30 [facility] Comment on above: Performed By: #### L 503.6030, L501.9520, L500.4050, L503.6550, L100.0100, L506.1001 #### [facility] [address] [place], [address] T PROT 6.2 g/dL Normal 5.9-8.4 [facility] Comment on above: Performed By: #### L 503.6030, L501.9520, L500.4050, L503.6550, L100.0100, L506.1001 #### [facility] [address] [place], [address] Urea nitrogen [Mass/Vol] 14 mg/dL Normal 4-19 [facility] Comment on above: Performed By: #### L 503.6030, L501.9520, L500.4050, L503.6550, L100.0100, L506.1001 #### [facility] [address] [place], [address] Eosinophil percentageOrdered By: Martin Gutierrez on 12-22-2024 Eosinophils/100 WBC (Bld) 1.2 % 0-5 [facility] Erythrocyte distribution wid th ratioOrdered By: [facility] on 12-22-2024 Erythrocyte distribution width (RBC) [Ratio] 13.4 % 11.6-14.6 [facility] Erythrocyte distribution wid th standard deviationOrdered By: [facility] on 12-22-2024 Erythrocyte distribution width (RBC) [Ratio] 52.9 fl High 35.1-43.9 [facility] Ferritinon 12-22-2024 Ferritin [Mass/Vol] 33 ng/mL Normal 22-378 [facility] Comment on above: Performed By: #### L 503.6030, L501.9520, L500.4050, L503.6550, L100.0100, L506.1001 #### [facility] [place], [address] Glomerular filtration rate ( GFR) estimation/1.73 sq m using serum, plasma, or whole bOrdered By: Martin Matt on 12-22-2024 GFR/1.73 sq M.predicted among non-blacks MDRD (S/P/Bld) [Vol rate/Area] 97 mL/min/{1.73_m2} >60 [facility] Comment on above: mL/min/1.73m2 CKD-EP I Creatinine Equation (2020) Hematocrit Auto (Bld) [Volum e fraction]Ordered By: [facility] on 12-22-2024 Hematocrit (Bld) [Volume fraction] 36.7 % Low 37-47 [facility] Hemoglobin measurementOrdere d By: Martin Matt on 12-22-2024 Hemoglobin (Bld) [Mass/Vol] 11.9 g/dL Low 12.0-15.0 [facility] Immature granulocytes/100 WB C Auto (Bld)Ordered By: Martin Matt on 12-22-2024 Immature granulocytes/100 WBC (Bld) 0.400 % 0.0-0.9 [facility] Comment on above: IG% - Immature Granu locytes (promyelocytes, myelocytes and metamyelocytes) > 1% indicates that a LEFT SHIFT is Present. Iron measurement (mass/mass) Ordered By: Martin Gutierrez on 12-22-2024 Iron (Unsp spec) [Mass/Mass] 31 ug/dL Low 50-170 [facility] Iron+Iron Binding Capacityon 12-22-2024 Iron [Mass/Vol] 31 ug/dL Low 50-170 [facility] Comment on above: Performed By: #### L 503.6030, L501.9520, L500.4050, L503.6550, L100.0100, L506.1001 #### [facility] [address] [place], [address] IRON SATURATION 10.0 Low 13-59 [facility] Comment on above: Performed By: #### L 503.6030, L501.9520, L500.4050, L503.6550, L100.0100, L506.1001 #### [facility] [address] [place], [address] TIBC 311 ug/dL Normal 250-450 [facility] Comment on above: Performed By: #### L 503.6030, L501.9520, L500.4050, L503.6550, L100.0100, L506.1001 #### [facility] [address] [place], [address] UIBC 280 ug/dL Normal 228-428 [facility] Comment on above: Performed By: #### L 503.6030, L501.9520, L500.4050, L503.6550, L100.0100, L506.1001 #### [facility] [address] [place], [address] Laboratory - Chemistry and C hemistry - challengeOrdered By: Martin Gutierrez on 12-22-2024 AST [Catalytic activity/Vol] 16 U/L <32 [facility] MCV (mean corpuscular volume ) determinationOrdered By: Martin Gutierrez on 12-22-2024 MCV (RBC) [Entitic vol] 107.3 fL High 81-99 [facility] Mean corpuscular hemoglobin (MCH) determinationOrdered By: Martin Gutierrez on 12-22-2024 MCH (RBC) [Entitic mass] 34.8 pg High 27.0-32.0 [facility] Mean corpuscular hemoglobin concentration (MCHC) determinationOrdered By: Martin Gutierrez on 12-22-2024 MCHC (RBC) [Mass/Vol] 32.4 g/dL 32-36 [facility] Mean platelet volume determi nationOrdered By: Martin Gutierrez on 12-22-2024 Platelet mean volume (Bld) [Entitic vol] 9.5 fL 6.2-12.0 [facility] Monocyte percentageOrdered B y: Martin Gutierrez on 12-22-2024 Monocytes/100 WBC (Bld) 9.9 % 0-10 [facility] Neutrophil percentageOrdered By: Martin Gutierrez on 12-22-2024 Neutrophils/100 WBC (Bld) 70.1 % High 47-70 [facility] No Panel InformationOrdered By: Martin Gutierrez on 12-22-2024 Unsaturated Iron Binding Capacity 280 ug/dL 228-428 [facility] Nucleated red blood cell per centageOrdered By: Martin Gutierrez on 12-22-2024 Nucleated RBC/100 WBC (Bld) [Ratio] 0 % 0-5 [facility] Platelet countOrdered By: Cruzito Gutierrez on 12-22-2024 Platelets (Bld) [#/Vol] 296 10*3/uL 150-450 [facility] Potassium measurement (mass/ volume)Ordered By: Martin Gutierrez on 12-22-2024 Potassium (Unsp spec) [Mass/Vol] 3.9 mmol/L 3.3-5.1 [facility] RBC Auto (Bld) [#/Vol]Ordere d By: Martin Gutierrez on 12-22-2024 RBC (Bld) [#/Vol] 3.42 10*6/uL Low 4.2-5.4 [facility] Serum creatinine measurement (mass/volume)Ordered By: Martin Gutierrez on 12-22-2024 Creatinine [Mass/Vol] 0.65 mg/dL Low 0.70-1.20 [facility] Serum globulin measurementOr dered By: Martin Gutierrez on 12-22-2024 Globulin (S) [Mass/Vol] 2.3 g/dL 2.2-4.2 [facility] Serum glucose measurement (m ass/volume)Ordered By: Martin Gutierrez on 12-22-2024 Glucose [Mass/Vol] 123 mg/dL High 70-99 [facility] Serum or plasma alanine joshi otransferase (ALT) measurementOrdered By: Martin Gutierrez on 12-22-2024 ALT [Catalytic activity/Vol] 14 U/L <35 [facility] Serum or plasma albumin kamlesh urement (mass/volume)Ordered By: Martin Gutierrez on 12-22-2024 Albumin [Mass/Vol] 4.0 g/dL 3.4-4.8 [facility] Serum or plasma albumin/glob ulin mass ratioOrdered By: Martin Gutierrez 12-22-2024 Albumin/Globulin [Mass ratio] 1.7 {ratio} 0.9-2.4 [facility] Serum or plasma alkaline mena sphatase measurementOrdered By: aMrtin Gutierrez 12-22-2024 ALP [Catalytic activity/Vol] 85 U/L 35-104 [facility] Serum or plasma calcium kamlesh urement (mass/volume)Ordered By: Martin Gutierrez 12-22-2024 Calcium [Mass/Vol] 9.0 mg/dL 7.6-11.0 [facility] Serum or plasma ferritin ibrahima surement (mass/volume)Ordered By: Martin Gutierrez 12-22-2024 Ferritin [Mass/Vol] 33 ng/mL 22-378 [facility] Serum or plasma iron saturat ion measurement (mass fraction)Ordered By: Martin Gutierrez 12-22-2024 Iron saturation [Mass fraction] 10.0 % Low 13-59 [facility] Serum or plasma urea nitroge n measurement (mass/volume)Ordered By: Martin Gutierrez 12-22-2024 Urea nitrogen [Mass/Vol] 14 mg/dL 4-19 [facility] Sodium levelOrdered By: Martin Gutierrez 12-22-2024 Sodium [Moles/Vol] 139 mmol/L 133-145 [facility] TSH DL <= 0.005 mIU/L QnOrde red By: Martin Gutierrez on 12-22-2024 TSH Qn 2.440 uIU/mL 0.300-4.200 [facility] Thyroid Stim Hormone (TSH)on 12-22-2024 TSH 2.440 uIU/mL Normal 0.300-4.200 [facility] Comment on above: Performed By: #### L 503.6030, L501.9520, L500.4050, L503.6550, L100.0100, L506.1001 #### [facility] [address] [place], [place], [id number] Total proteinOrdered By: Martin Gutierrez on 12-22-2024 Protein [Mass/Vol] 6.2 g/dL 5.9-8.4 [facility] Vitamin D,25 Hydroxyon 12-22 Vitamin D 25-OH 12.1 ng/mL Low 30-100 [facility] Comment on above: Result Comment: Shanti min D Status Deficiency: <20 ng/mL (50nmol/L) Insufficiency: 20-30 ng/mL (50-75 nmol/L) Sufficiency: 30-100 ng/mL (75-250 nmol/L) Toxicity: >100 ng/mL (>250 nmol/L) Performed By: #### L 503.6030, L501.9520, L500.4050, L503.6550, L100.0100, L506.1001 #### [facility] [address] [place], [place], [id number] White blood cell (WBC) count Ordered By: Martin Gutierrez on 12-22-2024 WBC (Bld) [#/Vol] 6.8 10*3/uL 4.4-11.0 [facility] Inital Evaluation (1) - PTon 11-14-2024 Inital Evaluation (1) - PT [facility] Physical Therapy [address] [place] [address] / REHABILITATION SERVICES INITIAL EVALUATION MR#: [id number] Acct: [id number] Name: ANGELES LARIOS Rep #: [id number] : 1960 64 From: Pardeep Betancur PT, Cert. T, OCS Referring Dr.: Dr. Armando Ga MD Status: REG R Insurance: [facility] [id number] SELF PAY INSURANCE Patient's Visit Information Visit Information Visit Information: ANGELES LAIROS is a 64 year old F referred [...] Response: No effect Lumbar Standing: Right Side Boyd - Symptoms During Testing: No effect Lumbar Standing: Right Side Boyd - Symptoms After Testing: No effect Lumbar Standing: Left Side Boyd - Mechanical Response: No effect Lumbar Standing: Left Side Boyd - Symptoms During Testing: No effect Lumbar Standing: Left Side Boyd - Symptoms After Testing: No effect Balance/Special [...] eisure, To (more content not included)... Normal [facility] Basic Metabolic Profile (BMP )on 10-05-2024 BUN/CRE 26.9 RATIO High 10-20 [facility] Comment on above: Performed By: #### L 503.6030, L501.9520, L500.4050, L503.6550, L100.0100, L506.1001 #### [facility] [address] [place], [address] CA,Total 8.9 mg/dL Normal 8.5-10.1 [facility] Comment on above: Performed By: #### L 503.6030, L501.9520, L500.4050, L503.6550, L100.0100, L506.1001 #### [facility] [address] [place], [address] Chloride [Moles/Vol] 111 mmol/L High 98-107 [facility] Comment on above: Performed By: #### L 503.6030, L501.9520, L500.4050, L503.6550, L100.0100, L506.1001 #### [facility] [address] [place], [address] CO2 [Moles/Vol] 24.0 mmol/L Normal 21.0-32.0 [facility] Comment on above: Performed By: #### L 503.6030, L501.9520, L500.4050, L503.6550, L100.0100, L506.1001 #### [facility] [address] [place], [address] Creatinine [Mass/Vol] 0.63 mg/dL Normal 0.55-1.02 [facility] Comment on above: Result Comment: The validity of the calculated GFR GFRAA in patients over 70 years has not been determined. Clinical correlation is essential. Performed By: #### L 503.6030, L501.9520, L500.4050, L503.6550, L100.0100, L506.1001 #### [facility] [address] [place], [address] EST GFR - AA 121 mL/min Normal >60 [facility] Comment on above: Result Comment: Afri can Guyanese GFR Calc Performed By: #### L 503.6030, L501.9520, L500.4050, L503.6550, L100.0100, L506.1001 #### [facility] [address] [place], [address] GAP 6 Normal 5-15 [facility] Comment on above: Performed By: #### L 503.6030, L501.9520, L500.4050, L503.6550, L100.0100, L506.1001 #### [facility] [address] [place], [address] GFR/1.73 sq M.predicted among non-blacks MDRD (S/P/Bld) [Vol rate/Area] 100 mL/min/{1.73_m2} Normal >60 [facility] Comment on above: Result Comment: Non- GFR Calc Performed By: #### L 503.6030, L501.9520, L500.4050, L503.6550, L100.0100, L506.1001 #### [facility] [address] [place], [address] Glucose [Mass/Vol] 92 mg/dL Normal 74-106 [facility] Comment on above: Performed By: #### L 503.6030, L501.9520, L500.4050, L503.6550, L100.0100, L506.1001 #### [facility] [address] [place], [address] Potassium [Moles/Vol] 3.8 mmol/L Normal 3.5-5.1 [facility] Comment on above: Performed By: #### L 503.6030, L501.9520, L500.4050, L503.6550, L100.0100, L506.1001 #### [facility] [address] [place], [address] Sodium [Moles/Vol] 141 mmol/L Normal 136-145 [facility] Comment on above: Performed By: #### L 503.6030, L501.9520, L500.4050, L503.6550, L100.0100, L506.1001 #### [facility] [address] [place], [address] Urea nitrogen [Mass/Vol] 17 mg/dL Normal 7-18 [facility] Comment on above: Performed By: #### L 503.6030, L501.9520, L500.4050, L503.6550, L100.0100, L506.1001 #### [facility] [address] [place], [address] BUN Normal 7-18 [facility] Comment on above: Result Comment: DUPL ICATE ORDER Performed By: #### L 501.2300, L500.2500, L501.5200, L100.0100 #### [facility] [address] [place], [address] BUN/CRE Normal 10-20 [facility] Comment on above: Result Comment: DUPL ICATE ORDER Performed By: #### L 501.2300, L500.2500, L501.5200, L100.0100 #### [facility] [address] [place], [address] CA,Total Normal 8.5-10.1 [facility] Comment on above: Result Comment: DUPL ICATE ORDER Performed By: #### L 501.2300, L500.2500, L501.5200, L100.0100 #### [facility] [address] [place], [address] CL Normal 98-107 [facility] Comment on above: Result Comment: DUPL ICATE ORDER Performed By: #### L 501.2300, L500.2500, L501.5200, L100.0100 #### [facility] [address] [place], [address] CO2 Normal 21.0-32.0 [facility] Comment on above: Result Comment: DUPL ICATE ORDER Performed By: #### L 501.2300, L500.2500, L501.5200, L100.0100 #### [facility] [address] [place], [address] CREAT,SERUM Normal 0.55-1.02 [facility] Comment on above: Result Comment: DUPL ICATE ORDER Performed By: #### L 501.2300, L500.2500, L501.5200, L100.0100 #### [facility] [address] [place], [address] EST GFR Normal >60 [facility] Comment on above: Result Comment: DUPL ICATE ORDER Performed By: #### L 501.2300, L500.2500, L501.5200, L100.0100 #### [facility] [address] [place], [address] EST GFR - AA Normal >60 [facility] Comment on above: Result Comment: DUPL ICATE ORDER Performed By: #### L 501.2300, L500.2500, L501.5200, L100.0100 #### [facility] [address] [place], [address] GAP Normal 5-15 [facility] Comment on above: Result Comment: DUPL ICATE ORDER Performed By: #### L 501.2300, L500.2500, L501.5200, L100.0100 #### [facility] [address] [place], [address] GLU Normal 74-106 [facility] Comment on above: Result Comment: DUPL ICATE ORDER Performed By: #### L 501.2300, L500.2500, L501.5200, L100.0100 #### [facility] [address] [place], [address] Potassium Normal 3.5-5.1 [facility] Comment on above: Result Comment: DUPL ICATE ORDER Performed By: #### L 501.2300, L500.2500, L501.5200, L100.0100 #### [facility] [address] [place], [address] Basic Metabolic Profile (BMP) Normal 136-145 [facility] Comment on above: Result Comment: DUPL ICATE ORDER Performed By: #### L 501.2300, L500.2500, L501.5200, L100.0100 #### [facility] [address] [place], [address] Blood urea nitrogen (BUN)/cr eatinine ratioOrdered By: Martin Gutierrez on 10-05-2024 Urea nitrogen/Creatinine [Mass ratio] 26.9 mg/mg High 10-20 [facility] Carbon dioxide measurementOr dered By: Martin Gutierrez on 10-05-2024 CO2 [Moles/Vol] 24.0 mmol/L 21.0-32.0 [facility] Chloride measurementOrdered By: Martin Gutierrez 10-05-2024 Chloride [Moles/Vol] 111 mmol/L High 98-107 [facility] Glomerular filtration rate ( GFR) estimationOrdered By: Martin Gutierrez on 10-05-2024 GFR/1.73 sq M.predicted among non-blacks MDRD (S/P/Bld) [Vol rate/Area] 100 mL/min/{1.73_m2} >60 [facility] Comment on above: Non- GFR Calc Glucose measurementOrdered B y: Martin Gutierrez on 10-05-2024 Glucose [Mass/Vol] 92 mg/dL 74-106 [facility] Potassium measurementOrdered By: Martin Gutierrez on 10-05-2024 Potassium [Moles/Vol] 3.8 mmol/L 3.5-5.1 [facility] Serum anion gap measurementO rdered By: Martin Gutierrez on 10-05-2024 Anion gap [Moles/Vol] 6 mmol/L 5-15 [facility] Serum or plasma calcium kamlesh urement (mass/volume)Ordered By: Martin Gutierrez on 10-05-2024 Calcium [Mass/Vol] 8.9 mg/dL 8.5-10.1 [facility] Serum or plasma creatinine m easurement (mass/volume)Ordered By: Martin Gutierrez on 10-05-2024 Creatinine [Mass/Vol] 0.63 mg/dL 0.55-1.02 [facility] Comment on above: The validity of the calculated GFR & GFRAA in patients over 70 years has not been determined. Clinical correlation is essential. Serum or plasma urea nitroge n measurement (mass/volume)Ordered By: Martin Gutierrez on 10-05-2024 Urea nitrogen [Mass/Vol] 17 mg/dL 7-18 [facility] Sodium levelOrdered By: Martin Gutierrez on 10-05-2024 Sodium [Moles/Vol] 141 mmol/L 136-145 [facility] Absolute lymphocyte countOrd ered By: Simon Ulloa on 10-04-2024 Lymphocytes Auto (Unsp spec) [#/Vol] 1.35 10*3/uL 0.83-4.51 [facility] Absolute neutrophil countOrd ered By: Simon Ulloa on 10-04-2024 Neutrophils (Bld) [#/Vol] 6.4 10*3/uL 2.0-7.7 [facility] Automated lymphocyte count a s percentage of total leukocytesOrdered By: Simon Ulloa on 10-04-2024 Lymphocytes/100 WBC Auto (Unsp spec) 14.7 % Low 19-41 [facility] Basophil percentageOrdered B y: Simon Ulloa on 10-04-2024 Basophils/100 WBC (Bld) 0.3 % 0-1 [facility] CBC W/Diff, Automatedon 09-24 Absolute Lymph 1.35 X10 3/uL Normal 0.83-4.51 [facility] Comment on above: Performed By: #### L 501.2300, L500.2500, L501.5200, L100.0100 #### [facility] [address] [place], [address] Absolute Neut 6.4 X10 3/uL Normal 2.0-7.7 [facility] Comment on above: Performed By: #### L 501.2300, L500.2500, L501.5200, L100.0100 #### [facility] [address] [place], [address] Basophils/100 WBC (Bld) 0.3 % Normal 0-1 [facility] Comment on above: Performed By: #### L 501.2300, L500.2500, L501.5200, L100.0100 #### [facility] [address] [place], [address] Eosinophils/100 WBC (Bld) 0.5 % Normal 0-5 [facility] Comment on above: Performed By: #### L 501.2300, L500.2500, L501.5200, L100.0100 #### [facility] [address] [place], [address] Erythrocyte distribution width (RBC) [Ratio] 12.7 % Normal 11.6-14.6 [facility] Comment on above: Performed By: #### L 501.2300, L500.2500, L501.5200, L100.0100 #### [facility] [address] [place], [address] Hematocrit (Bld) [Volume fraction] 32.1 % Low 37-47 [facility] Comment on above: Performed By: #### L 501.2300, L500.2500, L501.5200, L100.0100 #### [facility] [address] [place], [address] Hemoglobin (Bld) [Mass/Vol] 10.4 g/dL Low 12.0-15.0 [facility] Comment on above: Performed By: #### L 501.2300, L500.2500, L501.5200, L100.0100 #### [facility] [address] [place], [address] IG% 2.900 High 0.0-0.9 [facility] Comment on above: Result Comment: IG% - Immature Granulocytes (promyelocytes, myelocytes and metamyelocytes) > 1% indicates that a LEFT SHIFT is Present. Performed By: #### L 501.2300, L500.2500, L501.5200, L100.0100 #### [facility] [address] [place], [address] Lymphocytes/100 WBC (Bld) 14.7 % Low 19-41 [facility] Comment on above: Performed By: #### L 501.2300, L500.2500, L501.5200, L100.0100 #### [facility] [address] [place], [address] MCH (RBC) [Entitic mass] 33.8 pg High 27.0-32.0 [facility] Comment on above: Performed By: #### L 501.2300, L500.2500, L501.5200, L100.0100 #### [facility] [address] [place], [address] MCHC (RBC) [Mass/Vol] 32.4 g/dL Normal 32-36 [facility] Comment on above: Performed By: #### L 501.2300, L500.2500, L501.5200, L100.0100 #### [facility] [address] [place], [address] MCV (RBC) [Entitic vol] 104.2 fL High 81-99 [facility] Comment on above: Performed By: #### L 501.2300, L500.2500, L501.5200, L100.0100 #### [facility] [address] [place], [address] Monocytes/100 WBC (Bld) 11.8 % High 0-10 [facility] Comment on above: Performed By: #### L 501.2300, L500.2500, L501.5200, L100.0100 #### [facility] [address] [place], [address] Neutrophils/100 WBC (Bld) 69.8 % Normal 47-70 [facility] Comment on above: Performed By: #### L 501.2300, L500.2500, L501.5200, L100.0100 #### [facility] [address] [place], [address] Nucleated RBC (Bld) [#/Vol] 0 10*3/uL Normal 0-5 [facility] Comment on above: Performed By: #### L 501.2300, L500.2500, L501.5200, L100.0100 #### [facility] [address] [place], [address] Platelet mean volume (Bld) [Entitic vol] 9.6 fL Normal 6.2-12.0 [facility] Comment on above: Performed By: #### L 501.2300, L500.2500, L501.5200, L100.0100 #### [facility] [address] [place], [address] Platelets (Bld) [#/Vol] 455 10*3/uL High 150-450 [facility] Comment on above: Performed By: #### L 501.2300, L500.2500, L501.5200, L100.0100 #### [facility] [address] [place], [address] RBC (Bld) [#/Vol] 3.08 10*6/uL Low 4.2-5.4 [facility] Comment on above: Performed By: #### L 501.2300, L500.2500, L501.5200, L100.0100 #### [facility] [address] [place], [address] RDW SD 48.7 fl High 35.1-43.9 [facility] Comment on above: Performed By: #### L 501.2300, L500.2500, L501.5200, L100.0100 #### [facility] [address] [place], [address] WBC (Bld) [#/Vol] 9.2 10*3/uL Normal 4.4-11.0 [facility] Comment on above: Performed By: #### L 501.2300, L500.2500, L501.5200, L100.0100 #### [facility] [address] [place], [address] Eosinophil percentageOrdered By: Simon Ulloa on 10-04-2024 Eosinophils/100 WBC (Bld) 0.5 % 0-5 [facility] Erythrocyte distribution wid th ratioOrdered By: Simon Ulloa on 10-04-2024 Erythrocyte distribution width (RBC) [Ratio] 12.7 % 11.6-14.6 [facility] Erythrocyte distribution wid th standard deviationOrdered By: Simon Ulloa on 10-04-2024 Erythrocyte distribution width (RBC) [Ratio] 48.7 fl High 35.1-43.9 [facility] Ferritinon 10-04-2024 Ferritin [Mass/Vol] 38 ng/mL Normal [facility] Comment on above: Performed By: #### L 501.2300, L500.2500, L501.5200, L100.0100 #### [facility] [address] [place], [address] Ferritin measurementOrdered By: Simon Ulloa on 10-04-2024 Ferritin [Mass/Vol] 38 ng/mL [facility] Hematocrit Auto (Bld) [Volum e fraction]Ordered By: Simon Ulloa on 10-04-2024 Hematocrit (Bld) [Volume fraction] 32.1 % Low 37-47 [facility] Hemoglobin measurementOrdere d By: Simon Ulloa on 10-04-2024 Hemoglobin (Bld) [Mass/Vol] 10.4 g/dL Low 12.0-15.0 [facility] Immature granulocytes/100 WB C Auto (Bld)Ordered By: Simon Ulloa on 10-04-2024 Immature granulocytes/100 WBC (Bld) 2.900 % High 0.0-0.9 [facility] Comment on above: IG% - Immature Granu locytes (promyelocytes, myelocytes and metamyelocytes) > 1% indicates that a LEFT SHIFT is Present. Iron measurement (mass/mass) Ordered By: Simon Ulloa on 10-04-2024 Iron (Unsp spec) [Mass/Mass] 28 ug/dL Low 50-170 [facility] Iron+Iron Binding Capacityon 10-04-2024 Iron [Mass/Vol] 28 ug/dL Low 50-170 [facility] Comment on above: Performed By: #### L 501.2300, L500.2500, L501.5200, L100.0100 #### [facility] [address] [place], [address] IRON SATURATION 9.5 Low 15.0-55.0 [facility] Comment on above: Performed By: #### L 501.2300, L500.2500, L501.5200, L100.0100 #### [facility] [address] [place], [address] TIBC 296 ug/dL Normal 250-450 [facility] Comment on above: Performed By: #### L 501.2300, L500.2500, L501.5200, L100.0100 #### [facility] [address] [place], [address] MCV (mean corpuscular volume ) determinationOrdered By: Simon Ulloa on 10-04-2024 MCV (RBC) [Entitic vol] 104.2 fL High 81-99 [facility] Mean corpuscular hemoglobin (MCH) determinationOrdered By: Simon Ulloa on 10-04-2024 MCH (RBC) [Entitic mass] 33.8 pg High 27.0-32.0 [facility] Mean corpuscular hemoglobin concentration (MCHC) determinationOrdered By: Simon Ulloa on 10-04-2024 MCHC (RBC) [Mass/Vol] 32.4 g/dL 32-36 [facility] Mean platelet volume determi nationOrdered By: Simon Ulloa on 10-04-2024 Platelet mean volume (Bld) [Entitic vol] 9.6 fL 6.2-12.0 [facility] Monocyte percentageOrdered B y: Simon Ulloa on 10-04-2024 Monocytes/100 WBC (Bld) 11.8 % High 0-10 [facility] Neutrophil percentageOrdered By: Simon Ulloa on 10-04-2024 Neutrophils/100 WBC (Bld) 69.8 % 47-70 [facility] Nucleated red blood cell per centageOrdered By: Simon Ulloa on 10-04-2024 Nucleated RBC/100 WBC (Bld) [Ratio] 0 % 0-5 [facility] Oncology Visit Reporton 09-24 Oncology Visit Report [facility] [address] [place] [address] OFFICE VISIT Date of Service: 10/04/24 1050 MR#: [id number] Acct: [id number] Name: ANGELES LARIOS Rep #: [id number] : 1960 From: Smion Ulloa MD Age/Sex: 64/F Location: [facility] Status: Signed HPI Subjective Date of Service [...] capsule studies were done April 2021 at [facility], according to patient 2 colonic vascular lesions were seen and cauterized. Interval History Was hospitalized September 2024 with influenza, recovering [facility] Medical History Tobacco use disorder, continuous Iron deficiency anemia due to chronic blood loss History of stress test Depression Hypothyroidism GERD (gastroesophageal reflux disease) Smoker Coronary artery disease Hypertension DVT (deep venous thrombosis) TIA (transient ischemic attack) Anemia Macrocytosis Nicotine dependence Chronic GI bleeding Peripheral vascular disease Non-rheumatic aortic stenosis Dysarthria Atherosclerosis of coronary artery of mentasta heart without angina pectoris Essential (primary) hypertension [...] History Father , at age 38, from [place] Myocardial infarction cardiomopathy Mother Atrial fibrillation Hypertension [...] Allergic/Immunologic Allergic/Immunologic: (more content not included)... Normal [facility] Platelet countOrdered By: Darryl Ulloa on 10-04-2024 Platelets (Bld) [#/Vol] 455 10*3/uL High 150-450 [facility] RBC Auto (Bld) [#/Vol]Ordere d By: Simon Ulloa on 10-04-2024 RBC (Bld) [#/Vol] 3.08 10*6/uL Low 4.2-5.4 [facility] Retic Panelon 10-04-2024 IM RET FRACTION 29.00 High 3.00-15.90 [facility] Comment on above: Performed By: #### L 501.2300, L500.2500, L501.5200, L100.0100 #### [facility] [address] [place], [address] RET-HE 27.0 pg Low 30-35 [facility] Comment on above: Performed By: #### L 501.2300, L500.2500, L501.5200, L100.0100 #### [facility] [address] [place], [address] Retic Count 3.65 High 0.5-1.5 [facility] Comment on above: Performed By: #### L 501.2300, L500.2500, L501.5200, L100.0100 #### [facility] [address] [place], [address] Reticulocyte hemoglobin equi valent (RET-He) measurementOrdered By: Simon Ulloa on 10-04-2024 Hemoglobin (Reticulocytes) [Entitic mass] 27.0 pg Low 30-35 [facility] Reticulocytes Auto (Bld) [#/ Vol]Ordered By: Simon Ulloa on 10-04-2024 Reticulocytes/100 RBC (Bld) 3.65 % High 0.5-1.5 [facility] Serum or plasma iron saturat ion measurement (mass fraction)Ordered By: Simon Ulloa on 10-04-2024 Iron saturation [Mass fraction] 9.5 % Low 15.0-55.0 [facility] Vitamin B12on 10-04-2024 Cobalamin (Vitamin B12) [Mass/Vol] 438 pg/mL Normal [facility] Comment on above: Performed By: #### L 501.2300, L500.2500, L501.5200, L100.0100 #### [facility] [address] [place], [address] Vitamin B12 measurementOrder ed By: Simon Ulloa on 10-04-2024 Cobalamin (Vitamin B12) [Mass/Vol] 438 pg/mL [facility] White blood cell (WBC) count Ordered By: Simon Ulloa on 10-04-2024 WBC (Bld) [#/Vol] 9.2 10*3/uL 4.4-11.0 [facility] Culture, Blood (WB)on 2024 CUB Blood cultures x2, from two different sites No growth in 5 days. Normal [facility] Comment on above: Performed By: #### L 503.6030, L501.9520, L500.4050, L503.6550, L100.0100, L506.1001 #### [facility] [address] [place], [address] Basic Metabolic Profile (BMP )on 09-30-2024 BUN Normal 7-18 [facility] Comment on above: Result Comment: Canc elled via OM: Order cancelled - Patient discharged Performed By: #### L 501.2300, L500.2500, L501.5200, L100.0100 #### [facility] [address] [place], [address] BUN/CRE Normal 10-20 [facility] Comment on above: Result Comment: Canc elled via OM: Order cancelled - Patient discharged Performed By: #### L 501.2300, L500.2500, L501.5200, L100.0100 #### [facility] [address] [place], [address] CA,Total Normal 8.5-10.1 [facility] Comment on above: Result Comment: Canc elled via OM: Order cancelled - Patient discharged Performed By: #### L 501.2300, L500.2500, L501.5200, L100.0100 #### [facility] [address] [place], [address] CL Normal 98-107 [facility] Comment on above: Result Comment: Canc elled via OM: Order cancelled - Patient discharged Performed By: #### L 501.2300, L500.2500, L501.5200, L100.0100 #### [facility] [address] [place], [address] CO2 Normal 21.0-32.0 [facility] Comment on above: Result Comment: Canc elled via OM: Order cancelled - Patient discharged Performed By: #### L 501.2300, L500.2500, L501.5200, L100.0100 #### [facility] [address] [place], [address] CREAT,SERUM Normal 0.55-1.02 [facility] Comment on above: Result Comment: Canc elled via OM: Order cancelled - Patient discharged Performed By: #### L 501.2300, L500.2500, L501.5200, L100.0100 #### [facility] [address] [place], [address] EST GFR Normal >60 [facility] Comment on above: Result Comment: Canc elled via OM: Order cancelled - Patient discharged Performed By: #### L 501.2300, L500.2500, L501.5200, L100.0100 #### [facility] [address] [place], [address] EST GFR - AA Normal >60 [facility] Comment on above: Result Comment: Canc elled via OM: Order cancelled - Patient discharged Performed By: #### L 501.2300, L500.2500, L501.5200, L100.0100 #### [facility] [address] [place], [address] GAP Normal 5-15 [facility] Comment on above: Result Comment: Canc elled via OM: Order cancelled - Patient discharged Performed By: #### L 501.2300, L500.2500, L501.5200, L100.0100 #### [facility] [address] [place], [address] GLU Normal 74-106 [facility] Comment on above: Result Comment: Canc elled via OM: Order cancelled - Patient discharged Performed By: #### L 501.2300, L500.2500, L501.5200, L100.0100 #### [facility] [address] [place], [address] Potassium Normal 3.5-5.1 [facility] Comment on above: Result Comment: Canc elled via OM: Order cancelled - Patient discharged Performed By: #### L 501.2300, L500.2500, L501.5200, L100.0100 #### [facility] [address] [place], [address] Basic Metabolic Profile (BMP) Normal 136-145 [facility] Comment on above: Result Comment: Canc elled via OM: Order cancelled - Patient discharged Performed By: #### L 501.2300, L500.2500, L501.5200, L100.0100 #### [facility] [address] [place], [address] CBC W/Diff, Automatedon 02-0 -2024 Absolute Neut Normal 2.0-7.7 [facility] Comment on above: Result Comment: Canc elled via OM: Order cancelled - Patient discharged Performed By: #### L 501.2300, L500.2500, L501.5200, L100.0100 #### [facility] [address] [place], [address] HCT Normal 37-47 [facility] Comment on above: Result Comment: Canc elled via OM: Order cancelled - Patient discharged Performed By: #### L 501.2300, L500.2500, L501.5200, L100.0100 #### [facility] [address] [place], [address] HGB Normal 12.0-15.0 [facility] Comment on above: Result Comment: Canc elled via OM: Order cancelled - Patient discharged Performed By: #### L 501.2300, L500.2500, L501.5200, L100.0100 #### [facility] [address] [place], [address] MCH Normal 27.0-32.0 [facility] Comment on above: Result Comment: Canc elled via OM: Order cancelled - Patient discharged Performed By: #### L 501.2300, L500.2500, L501.5200, L100.0100 #### [facility] [address] [place], [address] MCHC Normal 32-36 [facility] Comment on above: Result Comment: Canc elled via OM: Order cancelled - Patient discharged Performed By: #### L 501.2300, L500.2500, L501.5200, L100.0100 #### [facility] [address] [place], [address] MCV Normal 81-99 [facility] Comment on above: Result Comment: Canc elled via OM: Order cancelled - Patient discharged Performed By: #### L 501.2300, L500.2500, L501.5200, L100.0100 #### [facility] [address] [place], [address] NEUT% Normal 47-70 [facility] Comment on above: Result Comment: Canc elled via OM: Order cancelled - Patient discharged Performed By: #### L 501.2300, L500.2500, L501.5200, L100.0100 #### [facility] [address] [place], [address] PLT Normal 150-450 [facility] Comment on above: Result Comment: Canc elled via OM: Order cancelled - Patient discharged Performed By: #### L 501.2300, L500.2500, L501.5200, L100.0100 #### [facility] [address] [place], [address] RBC Normal 4.2-5.4 [facility] Comment on above: Result Comment: Canc elled via OM: Order cancelled - Patient discharged Performed By: #### L 501.2300, L500.2500, L501.5200, L100.0100 #### [facility] [address] [place], [address] RDW CV Normal 11.6-14.6 [facility] Comment on above: Result Comment: Canc elled via OM: Order cancelled - Patient discharged Performed By: #### L 501.2300, L500.2500, L501.5200, L100.0100 #### [facility] [address] [place], [address] RDW SD Normal 35.1-43.9 [facility] Comment on above: Result Comment: Canc elled via OM: Order cancelled - Patient discharged Performed By: #### L 501.2300, L500.2500, L501.5200, L100.0100 #### [facility] [address] [place], [address] WBC Normal 4.4-11.0 [facility] Comment on above: Result Comment: Canc elled via OM: Order cancelled - Patient discharged Performed By: #### L 501.2300, L500.2500, L501.5200, L100.0100 #### [facility] [address] [place], [address] Basic Metabolic Profile (BMP )on 09-29-2024 BUN Normal 7-18 [facility] Comment on above: Result Comment: Canc elled via OM: Order cancelled - Patient discharged Performed By: #### L 501.2300, L500.2500, L501.5200, L100.0100 #### [facility] [address] [place], [address] BUN/CRE Normal 10-20 [facility] Comment on above: Result Comment: Canc elled via OM: Order cancelled - Patient discharged Performed By: #### L 501.2300, L500.2500, L501.5200, L100.0100 #### [facility] [address] [place], [address] CA,Total Normal 8.5-10.1 [facility] Comment on above: Result Comment: Canc elled via OM: Order cancelled - Patient discharged Performed By: #### L 501.2300, L500.2500, L501.5200, L100.0100 #### [facility] [address] [place], [address] CL Normal 98-107 [facility] Comment on above: Result Comment: Canc elled via OM: Order cancelled - Patient discharged Performed By: #### L 501.2300, L500.2500, L501.5200, L100.0100 #### [facility] [address] [place], [address] CO2 Normal 21.0-32.0 [facility] Comment on above: Result Comment: Canc elled via OM: Order cancelled - Patient discharged Performed By: #### L 501.2300, L500.2500, L501.5200, L100.0100 #### [facility] [address] [place], [address] CREAT,SERUM Normal 0.55-1.02 [facility] Comment on above: Result Comment: Canc elled via OM: Order cancelled - Patient discharged Performed By: #### L 501.2300, L500.2500, L501.5200, L100.0100 #### [facility] [address] [place], [address] EST GFR Normal >60 [facility] Comment on above: Result Comment: Canc elled via OM: Order cancelled - Patient discharged Performed By: #### L 501.2300, L500.2500, L501.5200, L100.0100 #### [facility] [address] [place], [address] EST GFR - AA Normal >60 [facility] Comment on above: Result Comment: Canc elled via OM: Order cancelled - Patient discharged Performed By: #### L 501.2300, L500.2500, L501.5200, L100.0100 #### [facility] [address] [place], [address] GAP Normal 5-15 [facility] Comment on above: Result Comment: Canc elled via OM: Order cancelled - Patient discharged Performed By: #### L 501.2300, L500.2500, L501.5200, L100.0100 #### [facility] [address] [place], [address] GLU Normal 74-106 [facility] Comment on above: Result Comment: Canc elled via OM: Order cancelled - Patient discharged Performed By: #### L 501.2300, L500.2500, L501.5200, L100.0100 #### [facility] [address] [place], [address] Potassium Normal 3.5-5.1 [facility] Comment on above: Result Comment: Canc elled via OM: Order cancelled - Patient discharged Performed By: #### L 501.2300, L500.2500, L501.5200, L100.0100 #### [facility] [address] [place], [address] Basic Metabolic Profile (BMP) Normal 136-145 [facility] Comment on above: Result Comment: Canc elled via OM: Order cancelled - Patient discharged Performed By: #### L 501.2300, L500.2500, L501.5200, L100.0100 #### [facility] [address] [place], [address] CBC W/Diff, Automatedon 02-0 Absolute Neut Normal 2.0-7.7 [facility] Comment on above: Result Comment: Canc elled via OM: Order cancelled - Patient discharged Performed By: #### L 501.2300, L500.2500, L501.5200, L100.0100 #### [facility] [address] [place], [address] HCT Normal 37-47 [facility] Comment on above: Result Comment: Canc elled via OM: Order cancelled - Patient discharged Performed By: #### L 501.2300, L500.2500, L501.5200, L100.0100 #### [facility] [address] [place], [address] HGB Normal 12.0-15.0 [facility] Comment on above: Result Comment: Canc elled via OM: Order cancelled - Patient discharged Performed By: #### L 501.2300, L500.2500, L501.5200, L100.0100 #### [facility] [address] [place], [address] MCH Normal 27.0-32.0 [facility] Comment on above: Result Comment: Canc elled via OM: Order cancelled - Patient discharged Performed By: #### L 501.2300, L500.2500, L501.5200, L100.0100 #### [facility] [address] [place], [address] MCHC Normal 32-36 [facility] Comment on above: Result Comment: Canc elled via OM: Order cancelled - Patient discharged Performed By: #### L 501.2300, L500.2500, L501.5200, L100.0100 #### [facility] [address] [place], [address] MCV Normal 81-99 [facility] Comment on above: Result Comment: Canc elled via OM: Order cancelled - Patient discharged Performed By: #### L 501.2300, L500.2500, L501.5200, L100.0100 #### [facility] [address] [place], [id number] NEUT% Normal 47-70 [facility] Comment on above: Result Comment: Canc elled via OM: Order cancelled - Patient discharged Performed By: #### L 501.2300, L500.2500, L501.5200, L100.0100 #### [facility] [address] [place], [address] PLT Normal 150-450 [facility] Comment on above: Result Comment: Canc elled via OM: Order cancelled - Patient discharged Performed By: #### L 501.2300, L500.2500, L501.5200, L100.0100 #### [facility] [address] [place], [address] RBC Normal 4.2-5.4 [facility] Comment on above: Result Comment: Canc elled via OM: Order cancelled - Patient discharged Performed By: #### L 501.2300, L500.2500, L501.5200, L100.0100 #### [facility] [address] [place], [address] RDW CV Normal 11.6-14.6 [facility] Comment on above: Result Comment: Canc elled via OM: Order cancelled - Patient discharged Performed By: #### L 501.2300, L500.2500, L501.5200, L100.0100 #### [facility] [address] [place], [address] RDW SD Normal 35.1-43.9 [facility] Comment on above: Result Comment: Canc elled via OM: Order cancelled - Patient discharged Performed By: #### L 501.2300, L500.2500, L501.5200, L100.0100 #### [facility] [address] [place], [address] WBC Normal 4.4-11.0 [facility] Comment on above: Result Comment: Canc elled via OM: Order cancelled - Patient discharged Performed By: #### L 501.2300, L500.2500, L501.5200, L100.0100 #### [facility] [address] [place], [address] Respiratory Cultureon 2024 RESPC Ampicillin can be used for Beta-Lactamase negative isolates. Microorganism Spec Cult Trimeth/Sulfa, Chloramphenicol, Cefotaxime, Ciprofloxacin, Amoxicillin/Clavulani c Acid, and Oral 2nd/3rd Generation Cephalosporins are effective against both Beta-Lactamase positive and Beta-Lactamase negative isolates. Haemophilus influenzae Amount Growth 3+ Beta Lactamase-Reportable Positive Normal [facility] Comment on above: Performed By: #### L 503.6030, L501.9520, L500.4050, L503.6550, L100.0100, L506.1001 #### [facility] [address] [place], [address] Absolute lymphocyte countOrd ered By: Scott Mcneal on 09-28-2024 Lymphocytes Auto (Unsp spec) [#/Vol] 0.56 10*3/uL Low 0.83-4.51 [facility] Absolute neutrophil countOrd ered By: Scott Mcneal on 09-28-2024 Neutrophils (Bld) [#/Vol] 5.5 10*3/uL 2.0-7.7 [facility] Automated lymphocyte count a s percentage of total leukocytesOrdered By: Scott Mcneal on 09-28-2024 Lymphocytes/100 WBC Auto (Unsp spec) 8.5 % Low 19-41 [facility] Basic Metabolic Profile (BMP )on 09-28-2024 BUN/CRE 38.9 RATIO High 10-20 [facility] Comment on above: Performed By: #### L 501.2300, L500.2500, L501.5200, L100.0100 #### [facility] [address] [place], [place], [id number] CA,Total 8.8 mg/dL Normal 8.5-10.1 [facility] Comment on above: Performed By: #### L 501.2300, L500.2500, L501.5200, L100.0100 #### [facility] [address] [place], [address] Chloride [Moles/Vol] 105 mmol/L Normal 98-107 [facility] Comment on above: Performed By: #### L 501.2300, L500.2500, L501.5200, L100.0100 #### [facility] [address] [place], [address] CO2 [Moles/Vol] 27.0 mmol/L Normal 21.0-32.0 [facility] Comment on above: Performed By: #### L 501.2300, L500.2500, L501.5200, L100.0100 #### [facility] [address] [place], [address] Creatinine [Mass/Vol] 0.51 mg/dL Low 0.55-1.02 [facility] Comment on above: Result Comment: The validity of the calculated GFR GFRAA in patients over 70 years has not been determined. Clinical correlation is essential. Performed By: #### L 501.2300, L500.2500, L501.5200, L100.0100 #### [facility] [address] [place], [address] ECRCL 76.35 ml/min Normal [facility] Comment on above: Performed By: #### L 501.2300, L500.2500, L501.5200, L100.0100 #### [facility] [address] [place], [address] EST GFR - AA 154 mL/min Normal >60 [facility] Comment on above: Result Comment: Afri can Guyanese GFR Calc Performed By: #### L 501.2300, L500.2500, L501.5200, L100.0100 #### [facility] [address] [place], [id number] GAP 6 Normal 5-15 [facility] Comment on above: Performed By: #### L 501.2300, L500.2500, L501.5200, L100.0100 #### [facility] [address] [place], [address] GFR/1.73 sq M.predicted among non-blacks MDRD (S/P/Bld) [Vol rate/Area] 127 mL/min/{1.73_m2} Normal >60 [facility] Comment on above: Result Comment: Non- GFR Calc Performed By: #### L 501.2300, L500.2500, L501.5200, L100.0100 #### [facility] [address] [place], [address] Glucose [Mass/Vol] 176 mg/dL High 74-106 [facility] Comment on above: Result Comment: Fast ing Glucose result greater than or equal to 126 mg/dL suggests DIABETES MELLITUS per A.D.A. criteria. Performed By: #### L 501.2300, L500.2500, L501.5200, L100.0100 #### [facility] [address] [place], [address] Potassium [Moles/Vol] 4.2 mmol/L Normal 3.5-5.1 [facility] Comment on above: Performed By: #### L 501.2300, L500.2500, L501.5200, L100.0100 #### [facility] [address] [place], [address] Sodium [Moles/Vol] 138 mmol/L Normal 136-145 [facility] Comment on above: Performed By: #### L 501.2300, L500.2500, L501.5200, L100.0100 #### [facility] [address] [place], [address] Urea nitrogen [Mass/Vol] 20 mg/dL High 7-18 [facility] Comment on above: Performed By: #### L 501.2300, L500.2500, L501.5200, L100.0100 #### [facility] [address] [place], [address] Basophil percentageOrdered B y: Scott Mcneal on 09-28-2024 Basophils/100 WBC (Bld) 0.2 % 0-1 [facility] Blood urea nitrogen (BUN)/cr eatinine ratioOrdered By: Scott Ruizmarcosnicola on 09-28-2024 Urea nitrogen/Creatinine [Mass ratio] 38.9 mg/mg High 10-20 [facility] CBC W/Diff, Automatedon Absolute Lymph 0.56 X10 3/uL Low 0.83-4.51 [facility] Comment on above: Performed By: #### L 501.2300, L500.2500, L501.5200, L100.0100 #### [facility] [address] [place], [address] Absolute Neut 5.5 X10 3/uL Normal 2.0-7.7 [facility] Comment on above: Performed By: #### L 501.2300, L500.2500, L501.5200, L100.0100 #### [facility] [address] [place], [address] Basophils/100 WBC (Bld) 0.2 % Normal 0-1 [facility] Comment on above: Performed By: #### L 501.2300, L500.2500, L501.5200, L100.0100 #### [facility] [address] [place], [address] Eosinophils/100 WBC (Bld) 0.0 % Normal 0-5 [facility] Comment on above: Performed By: #### L 501.2300, L500.2500, L501.5200, L100.0100 #### [facility] [address] [place], [address] Erythrocyte distribution width (RBC) [Ratio] 12.2 % Normal 11.6-14.6 [facility] Comment on above: Performed By: #### L 501.2300, L500.2500, L501.5200, L100.0100 #### [facility] [address] [place], [address] Hematocrit (Bld) [Volume fraction] 33.7 % Low 37-47 [facility] Comment on above: Performed By: #### L 501.2300, L500.2500, L501.5200, L100.0100 #### [facility] [address] [place], [address] Hemoglobin (Bld) [Mass/Vol] 10.8 g/dL Low 12.0-15.0 [facility] Comment on above: Performed By: #### L 501.2300, L500.2500, L501.5200, L100.0100 #### [facility] [address] [place], [address] IG% 0.500 Normal 0.0-0.9 [facility] Comment on above: Result Comment: IG% - Immature Granulocytes (promyelocytes, myelocytes and metamyelocytes) > 1% indicates that a LEFT SHIFT is Present. Performed By: #### L 501.2300, L500.2500, L501.5200, L100.0100 #### [facility] [address] [place], [address] Lymphocytes/100 WBC (Bld) 8.5 % Low 19-41 [facility] Comment on above: Performed By: #### L 501.2300, L500.2500, L501.5200, L100.0100 #### [facility] [address] [place], [address] MCH (RBC) [Entitic mass] 34.3 pg High 27.0-32.0 [facility] Comment on above: Performed By: #### L 501.2300, L500.2500, L501.5200, L100.0100 #### [facility] [address] [place], [address] MCHC (RBC) [Mass/Vol] 32.0 g/dL Normal 32-36 [facility] Comment on above: Performed By: #### L 501.2300, L500.2500, L501.5200, L100.0100 #### [facility] [address] [place], [address] MCV (RBC) [Entitic vol] 107.0 fL High 81-99 [facility] Comment on above: Performed By: #### L 501.2300, L500.2500, L501.5200, L100.0100 #### [facility] [address] [place], [address] Monocytes/100 WBC (Bld) 7.6 % Normal 0-10 [facility] Comment on above: Performed By: #### L 501.2300, L500.2500, L501.5200, L100.0100 #### [facility] [address] [place], [address] Neutrophils/100 WBC (Bld) 83.2 % High 47-70 [facility] Comment on above: Performed By: #### L 501.2300, L500.2500, L501.5200, L100.0100 #### [facility] [address] [place], [address] Nucleated RBC (Bld) [#/Vol] 0 10*3/uL Normal 0-5 [facility] Comment on above: Performed By: #### L 501.2300, L500.2500, L501.5200, L100.0100 #### [facility] [address] [place], [address] Platelet mean volume (Bld) [Entitic vol] 10.2 fL Normal 6.2-12.0 [facility] Comment on above: Performed By: #### L 501.2300, L500.2500, L501.5200, L100.0100 #### [facility] [address] [place], [id number] Platelets (Bld) [#/Vol] 210 10*3/uL Normal 150-450 [facility] Comment on above: Performed By: #### L 501.2300, L500.2500, L501.5200, L100.0100 #### [facility] [address] [place], [id number] RBC (Bld) [#/Vol] 3.15 10*6/uL Low 4.2-5.4 [facility] Comment on above: Performed By: #### L 501.2300, L500.2500, L501.5200, L100.0100 #### [facility] [address] [place], [id number] RDW SD 47.8 fl High 35.1-43.9 [facility] Comment on above: Performed By: #### L 501.2300, L500.2500, L501.5200, L100.0100 #### [facility] [address] [place], [id number] WBC (Bld) [#/Vol] 6.6 10*3/uL Normal 4.4-11.0 [facility] Comment on above: Performed By: #### L 501.2300, L500.2500, L501.5200, L100.0100 #### [facility] [address] [place], [id number] Carbon dioxide measurementOr dered By: Scott Mcneal on 09-28-2024 CO2 [Moles/Vol] 27.0 mmol/L 21.0-32.0 [facility] Chloride measurementOrdered By: Scott Mcneal on 09-28-2024 Chloride [Moles/Vol] 105 mmol/L 98-107 [facility] Eosinophil percentageOrdered By: Scott Mcneal on 09-28-2024 Eosinophils/100 WBC (Bld) 0.0 % 0-5 [facility] Erythrocyte distribution wid th ratioOrdered By: Scott Mcneal on 09-28-2024 Erythrocyte distribution width (RBC) [Ratio] 12.2 % 11.6-14.6 [facility] Erythrocyte distribution wid th standard deviationOrdered By: Scott Mcneal on 09-28-2024 Erythrocyte distribution width (RBC) [Ratio] 47.8 fl High 35.1-43.9 [facility] Glomerular filtration rate ( GFR) estimationOrdered By: Scott Mcneal on 09-28-2024 GFR/1.73 sq M.predicted among non-blacks MDRD (S/P/Bld) [Vol rate/Area] 127 mL/min/{1.73_m2} >60 [facility] Comment on above: Non- GFR Calc Glucose measurementOrdered B y: Scott Mcneal on 09-28-2024 Glucose [Mass/Vol] 176 mg/dL High 74-106 [facility] Comment on above: Fasting Glucose resu lt greater than or equal to 126 mg/dL suggests DIABETES MELLITUS per A.D.A. criteria. Hematocrit Auto (Bld) [Volum e fraction]Ordered By: Scott Mcneal on 09-28-2024 Hematocrit (Bld) [Volume fraction] 33.7 % Low 37-47 [facility] Hemoglobin measurementOrdere d By: Scott Mcneal on 09-28-2024 Hemoglobin (Bld) [Mass/Vol] 10.8 g/dL Low 12.0-15.0 [facility] Immature granulocytes/100 WB C Auto (Bld)Ordered By: Scott Mcneal on 09-28-2024 Immature granulocytes/100 WBC (Bld) 0.500 % 0.0-0.9 [facility] Comment on above: IG% - Immature Granu locytes (promyelocytes, myelocytes and metamyelocytes) > 1% indicates that a LEFT SHIFT is Present. MCV (mean corpuscular volume ) determinationOrdered By: Scott Mcneal on 09-28-2024 MCV (RBC) [Entitic vol] 107.0 fL High 81-99 [facility] Magnesiumon 09-28-2024 Magnesium [Mass/Vol] 2.7 mg/dL High 1.6-2.6 [facility] Comment on above: Performed By: #### L 501.2300, L500.2500, L501.5200, L100.0100 #### [facility] [address] [place], [place], [id number] Magnesium measurementOrdered By: Scott Mcneal on 09-28-2024 Magnesium [Mass/Vol] 2.7 mg/dL High 1.6-2.6 [facility] Mean corpuscular hemoglobin (MCH) determinationOrdered By: Scott Mcneal on 09-28-2024 MCH (RBC) [Entitic mass] 34.3 pg High 27.0-32.0 [facility] Mean corpuscular hemoglobin concentration (MCHC) determinationOrdered By: Scott Mcneal on 09-28-2024 MCHC (RBC) [Mass/Vol] 32.0 g/dL 32-36 [facility] Mean platelet volume determi nationOrdered By: Scott Mcneal on 09-28-2024 Platelet mean volume (Bld) [Entitic vol] 10.2 fL 6.2-12.0 [facility] Monocyte percentageOrdered B y: Scott Mcneal on 09-28-2024 Monocytes/100 WBC (Bld) 7.6 % 0-10 [facility] Neutrophil percentageOrdered By: Scott Mcneal on 09-28-2024 Neutrophils/100 WBC (Bld) 83.2 % High 47-70 [facility] Nucleated red blood cell per centageOrdered By: Scott Mcneal on 09-28-2024 Nucleated RBC/100 WBC (Bld) [Ratio] 0 % 0-5 [facility] Phosphoruson 09-28-2024 Phosphate [Mass/Vol] 3.9 mg/dL Normal 2.5-4.9 [facility] Comment on above: Performed By: #### L 501.2300, L500.2500, L501.5200, L100.0100 #### [facility] [address] [place], [address] Platelet countOrdered By: Patric Mcneal on 09-28-2024 Platelets (Bld) [#/Vol] 210 10*3/uL 150-450 [facility] Potassium measurementOrdered By: Scott Mcneal on 09-28-2024 Potassium [Moles/Vol] 4.2 mmol/L 3.5-5.1 [facility] RBC Auto (Bld) [#/Vol]Ordere d By: Scott Mcneal on 09-28-2024 RBC (Bld) [#/Vol] 3.15 10*6/uL Low 4.2-5.4 [facility] Serum anion gap measurementO rdered By: Scott Mcneal on 09-28-2024 Anion gap [Moles/Vol] 6 mmol/L 5-15 [facility] Serum or plasma calcium kamlesh urement (mass/volume)Ordered By: Scott Mcneal on 09-28-2024 Calcium [Mass/Vol] 8.8 mg/dL 8.5-10.1 [facility] Serum or plasma creatinine m easurement (mass/volume)Ordered By: Scott Mcneal on 09-28-2024 Creatinine [Mass/Vol] 0.51 mg/dL Low 0.55-1.02 [facility] Comment on above: The validity of the calculated GFR & GFRAA in patients over 70 years has not been determined. Clinical correlation is essential. Serum or plasma urea nitroge n measurement (mass/volume)Ordered By: Scott Mcneal on 09-28-2024 Urea nitrogen [Mass/Vol] 20 mg/dL High 7-18 [facility] Sodium levelOrdered By: Nazario Mcneal on 09-28-2024 Sodium [Moles/Vol] 138 mmol/L 136-145 [facility] White blood cell (WBC) count Ordered By: Scott Mcneal on 09-28-2024 WBC (Bld) [#/Vol] 6.6 10*3/uL 4.4-11.0 [facility] Albumin to globulin ratioOrd ered By: Esperanza Myers on 09-27-2024 Albumin/Globulin [Mass ratio] 0.7 {ratio} Low 0.9-2.4 [facility] Bilirubin, totalOrdered By: Esperanza Myers on 09-27-2024 Bilirubin [Mass/Vol] 0.20 mg/dL 0.20-1.00 [facility] Comment on above: For patients on eltr ombopag therapy, use of Dimension [place] TBIL is not recommended. CBC W/Diff, Automatedon Absolute Lymph 0.31 X10 3/uL Low 0.83-4.51 [facility] Comment on above: Performed By: #### L 501.2300, L500.2500, L501.5200, L100.0100 #### [facility] [address] [place], [address] Absolute Neut 2.7 X10 3/uL Normal 2.0-7.7 [facility] Comment on above: Performed By: #### L 501.2300, L500.2500, L501.5200, L100.0100 #### [facility] [address] [place], [address] Basophils/100 WBC (Bld) 0.3 % Normal 0-1 [facility] Comment on above: Performed By: #### L 501.2300, L500.2500, L501.5200, L100.0100 #### [facility] [address] [place], [address] Eosinophils/100 WBC (Bld) 0.0 % Normal 0-5 [facility] Comment on above: Performed By: #### L 501.2300, L500.2500, L501.5200, L100.0100 #### [facility] [address] [place], [address] Erythrocyte distribution width (RBC) [Ratio] 12.0 % Normal 11.6-14.6 [facility] Comment on above: Performed By: #### L 501.2300, L500.2500, L501.5200, L100.0100 #### [facility] [address] [place], [address] Hematocrit (Bld) [Volume fraction] 33.4 % Low 37-47 [facility] Comment on above: Performed By: #### L 501.2300, L500.2500, L501.5200, L100.0100 #### [facility] [address] [place], [address] Hemoglobin (Bld) [Mass/Vol] 10.8 g/dL Low 12.0-15.0 [facility] [facility] Comment on above: Performed By: #### L 501.2300, L500.2500, L501.5200, L100.0100 #### [facility] [address] [place], [address] IG% 1.000 High 0.0-0.9 [facility] Comment on above: Result Comment: IG% - Immature Granulocytes (promyelocytes, myelocytes and metamyelocytes) > 1% indicates that a LEFT SHIFT is Present. Performed By: #### L 501.2300, L500.2500, L501.5200, L100.0100 #### [facility] [address] [place], [address] Lymphocytes/100 WBC (Bld) 9.8 % Low 19-41 [facility] Comment on above: Performed By: #### L 501.2300, L500.2500, L501.5200, L100.0100 #### [facility] [address] [place], [address] MCH (RBC) [Entitic mass] 34.2 pg High 27.0-32.0 [facility] Comment on above: Performed By: #### L 501.2300, L500.2500, L501.5200, L100.0100 #### [facility] [address] [place], [address] MCHC (RBC) [Mass/Vol] 32.3 g/dL Normal 32-36 [facility] Comment on above: Performed By: #### L 501.2300, L500.2500, L501.5200, L100.0100 #### [facility] [address] [place], [id number] MCV (RBC) [Entitic vol] 105.7 fL High 81-99 [facility] Comment on above: Performed By: #### L 501.2300, L500.2500, L501.5200, L100.0100 #### [facility] [address] [place], [address] Monocytes/100 WBC (Bld) 4.4 % Normal 0-10 [facility] Comment on above: Performed By: #### L 501.2300, L500.2500, L501.5200, L100.0100 #### [facility] [address] [place], [address] Neutrophils/100 WBC (Bld) 84.5 % High 47-70 [facility] Comment on above: Performed By: #### L 501.2300, L500.2500, L501.5200, L100.0100 #### [facility] [address] [place], [address] Nucleated RBC (Bld) [#/Vol] 0 10*3/uL Normal 0-5 [facility] Comment on above: Performed By: #### L 501.2300, L500.2500, L501.5200, L100.0100 #### [facility] [address] [place], [address] Platelet mean volume (Bld) [Entitic vol] 10.0 fL Normal 6.2-12.0 [facility] Comment on above: Performed By: #### L 501.2300, L500.2500, L501.5200, L100.0100 #### [facility] [address] [place], [id number] Platelets (Bld) [#/Vol] 172 10*3/uL Normal 150-450 [facility] Comment on above: Performed By: #### L 501.2300, L500.2500, L501.5200, L100.0100 #### [facility] [address] [place], [address] RBC (Bld) [#/Vol] 3.16 10*6/uL Low 4.2-5.4 [facility] Comment on above: Performed By: #### L 501.2300, L500.2500, L501.5200, L100.0100 #### [facility] [address] [place], [address] RDW SD 47.5 fl High 35.1-43.9 [facility] Comment on above: Performed By: #### L 501.2300, L500.2500, L501.5200, L100.0100 #### [facility] [address] [place], [address] WBC (Bld) [#/Vol] 3.2 10*3/uL Low 4.4-11.0 [facility] Comment on above: Performed By: #### L 501.2300, L500.2500, L501.5200, L100.0100 #### [facility] [address] [place], [address] Comprehensive Metabolic Prof [facility] 09-27-2024 Albumin [Mass/Vol] 2.4 g/dL Low 3.2-5.0 [facility] Comment on above: Performed By: #### L 501.2300, L500.2500, L501.5200, L100.0100 #### [facility] [address] [place], [address] Albumin/Globulin [Mass ratio] 0.7 {ratio} Low 0.9-2.4 [facility] Comment on above: Performed By: #### L 501.2300, L500.2500, L501.5200, L100.0100 #### [facility] [address] [place], [address] ALK P 65 U/L Normal 45-117 [facility] Comment on above: Performed By: #### L 501.2300, L500.2500, L501.5200, L100.0100 #### [facility] [address] [place], [address] ALT [Catalytic activity/Vol] 14 U/L Normal 13-56 [facility] Comment on above: Performed By: #### L 501.2300, L500.2500, L501.5200, L100.0100 #### [facility] [address] [place], [address] AST [Catalytic activity/Vol] 12 U/L Low 15-37 [facility] Comment on above: Performed By: #### L 501.2300, L500.2500, L501.5200, L100.0100 #### [facility] [address] [place], [address] Bilirubin [Mass/Vol] 0.20 mg/dL Normal 0.20-1.00 [facility] Comment on above: Result Comment: For patients on eltrombopag therapy, use of Dimension [place] TBIL is not recommended. Performed By: #### L 501.2300, L500.2500, L501.5200, L100.0100 #### [facility] [address] [place], [address] BUN/CRE 33.5 RATIO High 10-20 [facility] Comment on above: Performed By: #### L 501.2300, L500.2500, L501.5200, L100.0100 #### [facility] [address] [place], [address] CA,Total 8.5 mg/dL Normal 8.5-10.1 [facility] Comment on above: Performed By: #### L 501.2300, L500.2500, L501.5200, L100.0100 #### [facility] [address] [place], [address] Chloride [Moles/Vol] 106 mmol/L Normal 98-107 [facility] Comment on above: Performed By: #### L 501.2300, L500.2500, L501.5200, L100.0100 #### [facility] [address] [place], [address] CO2 [Moles/Vol] 27.0 mmol/L Normal 21.0-32.0 [facility] Comment on above: Performed By: #### L 501.2300, L500.2500, L501.5200, L100.0100 #### [facility] [address] [place], [address] Creatinine [Mass/Vol] 0.48 mg/dL Low 0.55-1.02 [facility] Comment on above: Result Comment: The validity of the calculated GFR GFRAA in patients over 70 years has not been determined. Clinical correlation is essential. Performed By: #### L 501.2300, L500.2500, L501.5200, L100.0100 #### [facility] [address] [place], [address] ECRCL 76.35 ml/min Normal [facility] Comment on above: Performed By: #### L 501.2300, L500.2500, L501.5200, L100.0100 #### [facility] [address] [place], [address] EST GFR - AA 167 mL/min Normal >60 [facility] Comment on above: Result Comment: Afri can Guyanese GFR Calc Performed By: #### L 501.2300, L500.2500, L501.5200, L100.0100 #### [facility] [address] [place], [address] GAP 6 Normal 5-15 [facility] Comment on above: Performed By: #### L 501.2300, L500.2500, L501.5200, L100.0100 #### [facility] [address] [place], [address] GFR/1.73 sq M.predicted among non-blacks MDRD (S/P/Bld) [Vol rate/Area] 138 mL/min/{1.73_m2} Normal >60 [facility] Comment on above: Result Comment: Non- GFR Calc Performed By: #### L 501.2300, L500.2500, L501.5200, L100.0100 #### [facility] [address] [place], [address] Globulin (S) [Mass/Vol] 3.5 g/dL Normal 2.2-4.2 [facility] Comment on above: Performed By: #### L 501.2300, L500.2500, L501.5200, L100.0100 #### [facility] [address] [place], [address] Glucose [Mass/Vol] 164 mg/dL High 74-106 [facility] Comment on above: Result Comment: Fast ing Glucose result greater than or equal to 126 mg/dL suggests DIABETES MELLITUS per A.D.A. criteria. Performed By: #### L 501.2300, L500.2500, L501.5200, L100.0100 #### [facility] [address] [place], [address] Potassium [Moles/Vol] 3.8 mmol/L Normal 3.5-5.1 [facility] Comment on above: Performed By: #### L 501.2300, L500.2500, L501.5200, L100.0100 #### [facility] [address] [place], [address] Sodium [Moles/Vol] 139 mmol/L Normal 136-145 [facility] Comment on above: Performed By: #### L 501.2300, L500.2500, L501.5200, L100.0100 #### [facility] [address] [place], [address] T PROT 5.9 g/dL Low 6.4-8.2 [facility] Comment on above: Performed By: #### L 501.2300, L500.2500, L501.5200, L100.0100 #### [facility] [address] [place], [address] Urea nitrogen [Mass/Vol] 16 mg/dL Normal 7-18 [facility] Comment on above: Performed By: #### L 501.2300, L500.2500, L501.5200, L100.0100 #### [facility] [address] [place], [address] Gram Stainon 09-27-2024 GS Acceptable Specimen? Yes (<25 Epithelial cells per/lpf) Gram Stain 3+ White Blood Cells 1+ Gram positive cocci in clusters 2+ Gram negative cocco bacillus [facility] Comment on above: Performed By: #### L 503.6030, L501.9520, L500.4050, L503.6550, L100.0100, L506.1001 #### [facility] [address] [place], [address] Laboratory - Chemistry and C hemistry - challengeOrdered By: Esperanza Myers on 09-27-2024 AST [Catalytic activity/Vol] 12 U/L Low 15-37 [facility] Legionella Antigen Urineon 0 09-27-2024 LEGU URINE, CLEAN CATCH Legionella Antigen result interpretation: L pneumo Ag Ur Ql Negative Presumptive negative for Legionella pneumophila serogroup 1 antigen in urine, suggesting no recent or current infection. Legionella Ag, Urine Negative (See interpretation below) [facility] Comment on above: Performed By: #### L 501.2300, L500.2500, L501.5200, L100.0100 #### [facility] [address] [place], [place], [address] RESPIRATORY PANEL MOLECULARo n 09-27-2024 RP PANEL [...] Not Detected RSV B Not Detected Normal [facility] Comment on above: Performed By: #### L 503.6030, L501.9520, L500.4050, L503.6550, L100.0100, L506.1001 #### [facility] [address] [facility] [address] [place], [place], [address] Serum globulin measurementOr dered By: Esperanza Lucia on 09-27-2024 Globulin (S) [Mass/Vol] 3.5 g/dL 2.2-4.2 [facility] Serum or plasma alanine joshi otransferase (ALT) measurementOrdered By: Esperanza Lucia on 09-27-2024 ALT [Catalytic activity/Vol] 14 U/L 13-56 [facility] Serum or plasma albumin kamlesh urement (mass/volume)Ordered By: Esperanza Lucia on 09-27-2024 Albumin [Mass/Vol] 2.4 g/dL Low 3.2-5.0 [facility] Serum or plasma alkaline mena sphatase measurementOrdered By: [facility] on 09-27-2024 ALP [Catalytic activity/Vol] 65 U/L 45-117 [facility] Strep pneumoniae Antig(UR,CS F)on 09-27-2024 STPAG URINE INTERPRETATION Strep pneumoniae Antig(UR,CSF) Negative Urine Presumptive negative for pneumococcal pneumonia, suggesting no current or recent pneumococcal infection. Infection due to S pneumoniae cannot be ruled out since the antigen present in the sample may be below the detection limit of the test. Strep pneumo Test Negative URINE (See interpretation below) Normal [facility] Comment on above: Performed By: #### L 501.2300, L500.2500, L501.5200, L100.0100 #### [facility] [address] [place], [address] Total proteinOrdered By: Jeimy Myers on 09-27-2024 Protein [Mass/Vol] 5.9 g/dL Low 6.4-8.2 [facility] Urine Legionella pneumophila antigen detectionOrdered By: Esperanza Myers on 09-27-2024 L. pneumophila Ag Ql (U) [facility] 12 Lead EKGon 09-26-2024 12 Lead EKG [facility] [address] [place] [address] 12 Lead EKG 09/26/24 1625 MR#: [id number] Acct: [id number] Name: ANGELES LARIOS Rep #: [id number] : 1960 64 From: Efrain Samuel MD [...] Abnormal ECG Confirmed by LAUREN FAROOQ, EFRAIN ([id number]), map editor ELVIRA RODRÍGUEZ ([id number]) on 09/27/2024 8:55:15 AM Referred By: Esperanza Myers Confirmed By: EFRAIN SAMUEL MD 09/27/24 0855 Date Efrain Samuel MD CC: MARIAN Patel; Dr. Esperanza Myers MD; Dr. Scott Mcneal MD; Dr. Martin Gutierrez MD Signed Normal [facility] Basic Metabolic Profile (BMP )on 09-26-2024 BUN/CRE 26.1 RATIO High 10-20 [facility] Comment on above: Performed By: #### L 503.6030, L501.9520, L500.4050, L503.6550, L100.0100, L506.1001 #### [facility] [address] [place], [address] CA,Total 8.9 mg/dL Normal 8.5-10.1 [facility] Comment on above: Performed By: #### L 503.6030, L501.9520, L500.4050, L503.6550, L100.0100, L506.1001 #### [facility] [address] [place], [address] Chloride [Moles/Vol] 99 mmol/L Normal 98-107 [facility] Comment on above: Performed By: #### L 503.6030, L501.9520, L500.4050, L503.6550, L100.0100, L506.1001 #### [facility] [address] [place], [address] CO2 [Moles/Vol] 28.0 mmol/L Normal 21.0-32.0 [facility] Comment on above: Performed By: #### L 503.6030, L501.9520, L500.4050, L503.6550, L100.0100, L506.1001 #### [facility] [address] [place], [address] Creatinine [Mass/Vol] 0.69 mg/dL Normal 0.55-1.02 [facility] Comment on above: Result Comment: The validity of the calculated GFR GFRAA in patients over 70 years has not been determined. Clinical correlation is essential. Performed By: #### L 503.6030, L501.9520, L500.4050, L503.6550, L100.0100, L506.1001 #### [facility] [address] [place], [address] ECRCL 76.53 ml/min Normal [facility] Comment on above: Performed By: #### L 503.6030, L501.9520, L500.4050, L503.6550, L100.0100, L506.1001 #### [facility] [address] [place], [address] EST GFR - AA 109 mL/min Normal >60 [facility] Comment on above: Result Comment: Afri can Guyanese GFR Calc Performed By: #### L 503.6030, L501.9520, L500.4050, L503.6550, L100.0100, L506.1001 #### [facility] [address] [place], [address] GAP 8 Normal 5-15 [facility] Comment on above: Performed By: #### L 503.6030, L501.9520, L500.4050, L503.6550, L100.0100, L506.1001 #### [facility] [address] [place], [address] GFR/1.73 sq M.predicted among non-blacks MDRD (S/P/Bld) [Vol rate/Area] 90 mL/min/{1.73_m2} Normal >60 [facility] Comment on above: Result Comment: Non- GFR Calc Performed By: #### L 503.6030, L501.9520, L500.4050, L503.6550, L100.0100, L506.1001 #### [facility] [address] [place], [address] Glucose [Mass/Vol] 125 mg/dL High 74-106 [facility] Comment on above: Result Comment: Fast ing Glucose result from 100 to 125 mg/dL suggests IMPAIRED HOMEOSTASIS per A.D.A. criteria. Performed By: #### L 503.6030, L501.9520, L500.4050, L503.6550, L100.0100, L506.1001 #### [facility] [address] [place], [address] Potassium [Moles/Vol] 3.4 mmol/L Low 3.5-5.1 [facility] Comment on above: Result Comment: Slig ht Hemolysis, Result may be falsely increased. Performed By: #### L 503.6030, L501.9520, L500.4050, L503.6550, L100.0100, L506.1001 #### [facility] [address] [place], [address] Sodium [Moles/Vol] 135 mmol/L Low 136-145 [facility] Comment on above: Performed By: #### L 503.6030, L501.9520, L500.4050, L503.6550, L100.0100, L506.1001 #### [facility] [address] [place], [address] Urea nitrogen [Mass/Vol] 18 mg/dL Normal 7-18 [facility] Comment on above: Performed By: #### L 503.6030, L501.9520, L500.4050, L503.6550, L100.0100, L506.1001 #### [facility] [address] [place], [address] Bedside Glucoseon 09-26-2024 FINGERSTICK GLU 129 mg/dL High 74-106 [facility] Comment on above: Result Comment: SEAN CLARK OF PATIENT CARE PER NURSING PROTOCOL Performed By: #### L 503.6030, L501.9520, L500.4050, L503.6550, L100.0100, L506.1001 #### [facility] [address] [place], [address] Blood cultureOrdered By: Dee Dee Patel on 09-26-2024 Bacteria identified Cx Nom (Bld) No growth in 5 days. [facility] CBC W/Diff, Automatedon Absolute Lymph 0.91 X10 3/uL Normal 0.83-4.51 [facility] Comment on above: Performed By: #### L 503.6030, L501.9520, L500.4050, L503.6550, L100.0100, L506.1001 #### [facility] [address] [place], [address] Absolute Neut 3.6 X10 3/uL Normal 2.0-7.7 [facility] Comment on above: Performed By: #### L 503.6030, L501.9520, L500.4050, L503.6550, L100.0100, L506.1001 #### [facility] [address] [place], [address] Basophils/100 WBC (Bld) 0.2 % Normal 0-1 [facility] Comment on above: Performed By: #### L 503.6030, L501.9520, L500.4050, L503.6550, L100.0100, L506.1001 #### [facility] [address] [place], [address] Eosinophils/100 WBC (Bld) 0.0 % Normal 0-5 [facility] Comment on above: Performed By: #### L 503.6030, L501.9520, L500.4050, L503.6550, L100.0100, L506.1001 #### [facility] [address] [place], [address] Erythrocyte distribution width (RBC) [Ratio] 12.1 % Normal 11.6-14.6 [facility] Comment on above: Performed By: #### L 503.6030, L501.9520, L500.4050, L503.6550, L100.0100, L506.1001 #### [facility] [address] [place], [address] Hematocrit (Bld) [Volume fraction] 39.0 % Normal 37-47 [facility] Comment on above: Performed By: #### L 503.6030, L501.9520, L500.4050, L503.6550, L100.0100, L506.1001 #### [facility] [address] [place], [address] Hemoglobin (Bld) [Mass/Vol] 13.0 g/dL Normal 12.0-15.0 [facility] Comment on above: Performed By: #### L 503.6030, L501.9520, L500.4050, L503.6550, L100.0100, L506.1001 #### [facility] [address] [place], [address] IG% 0.800 Normal 0.0-0.9 [facility] Comment on above: Result Comment: IG% - Immature Granulocytes (promyelocytes, myelocytes and metamyelocytes) > 1% indicates that a LEFT SHIFT is Present. Performed By: #### L 503.6030, L501.9520, L500.4050, L503.6550, L100.0100, L506.1001 #### [facility] [address] [place], [address] Lymphocytes/100 WBC (Bld) 17.4 % Low 19-41 [facility] Comment on above: Performed By: #### L 503.6030, L501.9520, L500.4050, L503.6550, L100.0100, L506.1001 #### [facility] [address] [place], [address] MCH (RBC) [Entitic mass] 34.8 pg High 27.0-32.0 [facility] Comment on above: Performed By: #### L 503.6030, L501.9520, L500.4050, L503.6550, L100.0100, L506.1001 #### [facility] [address] [place], [address] MCHC (RBC) [Mass/Vol] 33.3 g/dL Normal 32-36 [facility] Comment on above: Performed By: #### L 503.6030, L501.9520, L500.4050, L503.6550, L100.0100, L506.1001 #### [facility] [address] [place], [address] MCV (RBC) [Entitic vol] 104.3 fL High 81-99 [facility] Comment on above: Performed By: #### L 503.6030, L501.9520, L500.4050, L503.6550, L100.0100, L506.1001 #### [facility] [address] [place], [address] Monocytes/100 WBC (Bld) 13.2 % High 0-10 [facility] Comment on above: Performed By: #### L 503.6030, L501.9520, L500.4050, L503.6550, L100.0100, L506.1001 #### [facility] [address] [place], [address] Neutrophils/100 WBC (Bld) 68.4 % Normal 47-70 [facility] Comment on above: Performed By: #### L 503.6030, L501.9520, L500.4050, L503.6550, L100.0100, L506.1001 #### [facility] [address] [place], [address] Nucleated RBC (Bld) [#/Vol] 0 10*3/uL Normal 0-5 [facility] Comment on above: Performed By: #### L 503.6030, L501.9520, L500.4050, L503.6550, L100.0100, L506.1001 #### [facility] [address] [place], [address] Platelet mean volume (Bld) [Entitic vol] 10.3 fL Normal 6.2-12.0 [facility] Comment on above: Performed By: #### L 503.6030, L501.9520, L500.4050, L503.6550, L100.0100, L506.1001 #### [facility] [address] [place], [address] Platelets (Bld) [#/Vol] 209 10*3/uL Normal 150-450 [facility] Comment on above: Performed By: #### L 503.6030, L501.9520, L500.4050, L503.6550, L100.0100, L506.1001 #### [facility] [address] [place], [address] RBC (Bld) [#/Vol] 3.74 10*6/uL Low 4.2-5.4 [facility] Comment on above: Performed By: #### L 503.6030, L501.9520, L500.4050, L503.6550, L100.0100, L506.1001 #### [facility] [address] [place], [address] RDW SD 46.0 fl High 35.1-43.9 [facility] Comment on above: Performed By: #### L 503.6030, L501.9520, L500.4050, L503.6550, L100.0100, L506.1001 #### [facility] [address] [place], [address] WBC (Bld) [#/Vol] 5.2 10*3/uL Normal 4.4-11.0 [facility] Comment on above: Performed By: #### L 503.6030, L501.9520, L500.4050, L503.6550, L100.0100, L506.1001 #### [facility] [address] [place], [address] Chest PA and Lateralon 09-26 Chest PA and Lateral [facility] Imaging Services [address] [place] [address] Chest PA and Lateral MR#: [id number] Acct: [id number] Name: ANGELES LARIOS Rep #: [id number] : 1960 F 64 From: Stephen Velásquez MD PCP: Dr. Martin Gutierrez MD Status: [facility] ER Study: Chest PA and Lateral Date of Exam: 09/26/24 Exam# [id number] Ordering Dr: Joaquín Patel BOBBIN COLLECTOR-C PROCEDURE: CHEST PA AND LATERAL REASON FOR [...] developing inflammatory process. Reading Location: [facility] CC: BOBBIN COLLECTOR-Andry Patel; Dr. Martin Gutierrez MD Ice Cream Maker: Signed Normal [facility] Emergency Department Summary on 09-26-2024 Emergency Department Summary [facility] Medical Records Department [address] [place] [address] Emergency Department Summary 09/26/24 MR#: [id number] Acct: [id number] Name: ANGELES LARIOS Rep #: [id number] : 1960 64 From: Rafita Ruiz DO PCP: Dr. Martin Gutierrez MD Status:ADM IN [place] [facility] [place] AC318-2 Patient was seen and examined with nurse [...] tired and is sleeping all the time. [facility] Medical History (Updated 09/26/24 @ 18:47 by MARIAN Bill) Tobacco use disorder, continuous Iron deficiency anemia due to chronic blood loss History of stress test Depression Hypothyroidism GERD (gastroesophageal reflux disease) Smoker Coronary artery disease Hypertension DVT (deep venous thrombosis) TIA (transient ischemic attack) Anemia Macrocytosis Nicotine dependence Chronic GI bleeding Peripheral vascular disease Non-rheumatic aortic stenosis Dysarthria Atherosclerosis of coronary artery of mentasta heart without angina pectoris Essential (primary) hypertension [...] 100 mg (more content not included)... Normal [facility] deOrdered By: Rafita Ruiz on 09-26-2024 Glucose [Mass/Vol] 129 mg/dL High 74-106 [facility] Comment on above: MANAGEMENT OF PATIEN T CARE PER NURSING PROTOCOL Gram stainOrdered By: Esperanza Myers on 09-26-2024 Microscopic observation Gram stain Nom (Unsp spec) [facility] H AND P Exam - Hospital[place] 09-26-2024 H&P Exam - Hospitalist [facility] Medical Records Department [address] [place] [address] H P Exam - Hospitalist 09/26/241921 MR#: [id number] Acct: [id number] Name: ANGELES LARIOS Rep #: [id number] : 1960 64 From: Esperanza Myers MD PCP: Dr. Martin Gutierrez MD Status:ADM IN [place] [facility] [id number] HPI - General General Date of Admission: [...] IBS, carotid disease who presents to the [facility] ED on 09/26/2024 with progressively worsening [...] as Solu-Medrol 60 mg IV x 1. [facility] Medical History Tobacco use disorder, continuous Iron deficiency anemia due to chronic blood loss History of stress test Depression Hypothyroidism GERD (gastroesophageal reflux disease) Smoker Coronary artery disease Hypertension DVT (deep venous thrombosis) TIA (transient ischemic attack) Anemia Macrocytosis Nicotine dependence Chronic GI bleeding Peripheral vascular disease Non-rheumatic aortic stenosis Dysarthria Atherosclerosis of coronary artery of mentasta heart without angina pectoris Essential (primary) hypertension [...] PO DAILY 09/26/24 Unknown H istory vitamins A,C,M-vqbj-yyxvnl 4,296 1 cap PO DAILY 09/26/24 Unknown Hi story mcg-226 mg-90 mg capsule (PreserVision AREDS) Allergy/AdvReac Type Severity Reaction Status Date / Time atorvastatin (From Lipitor) AdvReac Severe Other Verified 09/26/24 16:04 codeine AdvReac Severe Other Verified 09/26/24 16:04 Family History Father , at age 38, from [place] Myocardial infarction cardiomopathy Mother Atrial fibrillation Hypertension Hyperlipidemia Diabetes Brother CAD (coronary artery (more content not included)... Normal [facility] Influenza virus A and B and SARS-CoV-2 (COVID-19) and Respiratory syncytial virus RNAOrdered By: Joaquín Patel on 09-26-2024 SARS-CoV-2 (COVID-19) RNA RENATE+probe Ql (Unsp spec) Influenzae A Abnormal [facility] Lactic Acidon 09-26-2024 Lactate [Moles/Vol] 1.6 mmol/L Normal 0.4-1.9 [facility] Comment on above: Order Comment: Y Performed By: #### L 501.2300, L500.2500, L501.5200, L100.0100 #### [facility] Laboratory [address] [place] [address], [address] Lactic acid measurementOrder ed By: Joaquín Patel on 09-26-2024 Lactate [Moles/Vol] 1.6 mmol/L 0.4-2.0 [facility] M100.678on 09-26-2024 SARS-CoV-2 (COVID-19) Ab IA Ql Normal Reference Range = Negative FLUABV+SARS-CoV-2+RSV Pnl Resp RENATE+probe GeneXpert Instrument, PCR method FLUABV+SARS-CoV-2+RSV Pnl Resp RENATE+probe Copy of report sent to Infection Control Printer [id number] 09/26/24 2864 [facility]. RESULTS CALLED TO STEVENSON LEVIN 09/26/24 1738 Edith Vergara. REPORT READ BACK BY SAME. SARS-CoV-2 (COVID 19) Negative INFLUENZA A A Positive A INFLUENZA B Negative RSV PCR Negative INFLUENZAE A Normal [facility] Comment on above: Performed By: #### L 503.6030, L501.9520, L500.4050, L503.6550, L100.0100, L506.1001 #### [facility] [address] [place], [address] Magnesiumon 09-26-2024 Magnesium [Mass/Vol] 2.3 mg/dL Normal 1.6-2.6 [facility] Comment on above: Order Comment: Comme nts: may add to ED labs Result Comment: Mode rate Hemolysis, Result may be falsely increased. Performed By: #### L 501.2300, L500.2500, L501.5200, L100.0100 #### [facility] [address] [place], [address] Microbial respiratory cultur eOrdered By: Esperanza Myers on 09-26-2024 Microorganism identified Cx Nom (Unsp spec) Haemophilus influenzae Abnormal [facility] Procalcitoninon 09-26-2024 Procalcitonin 0.14 ng/mL High 0.00-0.09 [facility] Comment on above: Result Comment: A procalcitonin [...] #### L 501.2300, L500.2500, L501.5200, L100.0100 #### [facility] [address] [facility] [place], [place], [address] Respiratory pathogens detect ion panel by molecular detection methodOrdered By: Esperanza Myers on 09-26-2024 Respiratory pathogens DNA and RNA panel RENATE+probe (Resp) [facility] Serum procalcitonin measurem entOrdered By: Esperanza Myers on 09-26-2024 Procalcitonin [Mass/Vol] 0.14 ng/mL High 0.00-0.09 [facility] Comment on above: A procalcitonin (PCT ) [...] Screeningon 07-26-[address] Lung Screening [facility] Imaging Services [address] [place], [place] [address] Low Dose CT Lung Screening MR#: [id number] Acct: [id number] Name: ANGELES LARIOS Rep #: [id number] : 1960 F 64 From: Gamaliel ridley MD PCP: Dr. Martin Gutierrez MD Status: REG [facility] Study: Low Dose CT Lung Screening Date of Exam: 07/26 Exam# [id number] Ordering Dr: Margi Christian NP BOBBIN COLLECTOR -C [id number] STUDY: LOW DOSE CT LUNG CANCER SCREENING [...] CC: MARIAN Christian; Dr. Martin Gutierrez MD Ice Cream Maker: Signed Normal [facility] Oncology Visit Reporton Oncology Visit Report [facility] [address] [place] [address] OFFICE VISIT Date of Service: 07/26/24 1212 MR#: [id number] Acct: [id number] Name: ANGELES LARIOS Rep #: [id number] : 1960 From: Margi Rebolledo Age/Sex: 64/F Location: [facility] Status: Signed HPI HPI Reviewed eligibility criteria: [...] you fallen in the past year?: Yes [facility] Medical History (Updated 07/26/24 @ 14:58 by Margi Christian BOBBIN COLLECTOR, BOBBIN COLLECTOR-C) Tobacco use disorder, continuous Iron deficiency anemia due to chronic blood loss History of str (more content not included)... Normal [facility] Vitamin D,25 Hydroxyon 06-16 Vitamin D 25-OH 22.9 ng/mL Normal [facility] Comment on above: Result Comment: Shanti min D 25(OH) Status Range Deficiency <20 ng/mL (50nmol/L) Insufficiency 20 - 30 ng/mL (50 - 75 nmol/L) Sufficiency 30 - 100 ng/mL (75 - 250 nmol/L) Toxicity >100 ng/mL (>250 nmol/L) Performed By: #### L 501.2300, L500.2500, L501.5200, L100.0100 #### [facility] Laboratory [address] [place], [address] CBC W/Diff, Automatedon 05-25 Absolute Lymph 1.18 X10 3/uL Normal 0.83-4.51 [facility] Comment on above: Performed By: #### L 501.2300, L500.2500, L501.5200, L100.0100 #### [facility] [address] [place], [address] Absolute Neut 4.6 X10 3/uL Normal 2.0-7.7 [facility] Comment on above: Performed By: #### L 501.2300, L500.2500, L501.5200, L100.0100 #### [facility] [address] [place], [address] Basophils/100 WBC (Bld) 0.5 % Normal 0-1 [facility] Comment on above: Performed By: #### L 501.2300, L500.2500, L501.5200, L100.0100 #### [facility] [address] [place], [address] Eosinophils/100 WBC (Bld) 1.2 % Normal 0-5 [facility] Comment on above: Performed By: #### L 501.2300, L500.2500, L501.5200, L100.0100 #### [facility] [address] [place], [address] Erythrocyte distribution width (RBC) [Ratio] 13.4 % Normal 11.6-14.6 [facility] Comment on above: Performed By: #### L 501.2300, L500.2500, L501.5200, L100.0100 #### [facility] [address] [place], [address] Hematocrit (Bld) [Volume fraction] 38.6 % Normal 37-47 [facility] Comment on above: Performed By: #### L 501.2300, L500.2500, L501.5200, L100.0100 #### [facility] [address] [place], [address] Hemoglobin (Bld) [Mass/Vol] 11.9 g/dL Low 12.0-15.0 [facility] Comment on above: Performed By: #### L 501.2300, L500.2500, L501.5200, L100.0100 #### [facility] [address] [place], [address] IG% 0.300 Normal 0.0-0.9 [facility] Comment on above: Result Comment: IG% - Immature Granulocytes (promyelocytes, myelocytes and metamyelocytes) > 1% indicates that a LEFT SHIFT is Present. Performed By: #### L 501.2300, L500.2500, L501.5200, L100.0100 #### [facility] [address] [place], [address] Lymphocytes/100 WBC (Bld) 17.9 % Low 19-41 [facility] Comment on above: Performed By: #### L 501.2300, L500.2500, L501.5200, L100.0100 #### [facility] [address] [place], [address] MCH (RBC) [Entitic mass] 34.3 pg High 27.0-32.0 [facility] Comment on above: Performed By: #### L 501.2300, L500.2500, L501.5200, L100.0100 #### [facility] [address] [place], [address] MCHC (RBC) [Mass/Vol] 30.8 g/dL Low 32-36 [facility] Comment on above: Performed By: #### L 501.2300, L500.2500, L501.5200, L100.0100 #### [facility] [address] [place], [address] MCV (RBC) [Entitic vol] 111.2 fL High 81-99 [facility] Comment on above: Performed By: #### L 501.2300, L500.2500, L501.5200, L100.0100 #### [facility] [address] [place], [address] Monocytes/100 WBC (Bld) 10.6 % High 0-10 [facility] Comment on above: Performed By: #### L 501.2300, L500.2500, L501.5200, L100.0100 #### [facility] [address] [place], [address] Neutrophils/100 WBC (Bld) 69.5 % Normal 47-70 [facility] Comment on above: Performed By: #### L 501.2300, L500.2500, L501.5200, L100.0100 #### [facility] [address] [place], [address] Nucleated RBC (Bld) [#/Vol] 0 10*3/uL Normal 0-5 [facility] Comment on above: Performed By: #### L 501.2300, L500.2500, L501.5200, L100.0100 #### [facility] [address] [place], [address] Platelet mean volume (Bld) [Entitic vol] 9.4 fL Normal 6.2-12.0 [facility] Comment on above: Performed By: #### L 501.2300, L500.2500, L501.5200, L100.0100 #### [facility] [address] [place], [address] Platelets (Bld) [#/Vol] 256 10*3/uL Normal 150-450 [facility] Comment on above: Performed By: #### L 501.2300, L500.2500, L501.5200, L100.0100 #### [facility] [address] [place], [address] RBC (Bld) [#/Vol] 3.47 10*6/uL Low 4.2-5.4 [facility] Comment on above: Performed By: #### L 501.2300, L500.2500, L501.5200, L100.0100 #### [facility] [address] [place], [address] RDW SD 55.8 fl High 35.1-43.9 [facility] Comment on above: Performed By: #### L 501.2300, L500.2500, L501.5200, L100.0100 #### [facility] [address] [place], [address] WBC (Bld) [#/Vol] 6.6 10*3/uL Normal 4.4-11.0 [facility] Comment on above: Performed By: #### L 501.2300, L500.2500, L501.5200, L100.0100 #### [facility] [address] [place], [address] Comprehensive Metabolic Prof ilon 06-15-2024 Albumin [Mass/Vol] 3.1 g/dL Low 3.2-5.0 [facility] Comment on above: Performed By: #### L 501.2300, L500.2500, L501.5200, L100.0100 #### [facility] [address] [place], [address] Albumin/Globulin [Mass ratio] 1.1 {ratio} Normal 0.9-2.4 [facility] Comment on above: Performed By: #### L 501.2300, L500.2500, L501.5200, L100.0100 #### [facility] [address] [place], [address] ALK P 81 U/L Normal 45-117 [facility] Comment on above: Performed By: #### L 501.2300, L500.2500, L501.5200, L100.0100 #### [facility] [address] [place], [address] ALT [Catalytic activity/Vol] 51 U/L Normal 13-56 [facility] Comment on above: Performed By: #### L 501.2300, L500.2500, L501.5200, L100.0100 #### [facility] [address] [place], [address] AST [Catalytic activity/Vol] 23 U/L Normal 15-37 [facility] Comment on above: Performed By: #### L 501.2300, L500.2500, L501.5200, L100.0100 #### [facility] [address] [place], [address] Bilirubin [Mass/Vol] 0.20 mg/dL Normal 0.20-1.00 [facility] Comment on above: Result Comment: For patients on eltrombopag therapy, use of Dimension [place] TBIL is not recommended. Performed By: #### L 501.2300, L500.2500, L501.5200, L100.0100 #### [facility] [address] [place], [address] BUN/CRE 19.4 RATIO Normal 10-20 [facility] Comment on above: Performed By: #### L 501.2300, L500.2500, L501.5200, L100.0100 #### [facility] [address] [place], [address] CA,Total 9.6 mg/dL Normal 8.5-10.1 [facility] Comment on above: Performed By: #### L 501.2300, L500.2500, L501.5200, L100.0100 #### [facility] [address] [place], [address] Chloride [Moles/Vol] 112 mmol/L High 98-107 [facility] Comment on above: Performed By: #### L 501.2300, L500.2500, L501.5200, L100.0100 #### [facility] [address] [place], [address] CO2 [Moles/Vol] 27.0 mmol/L Normal 21.0-32.0 [facility] Comment on above: Performed By: #### L 501.2300, L500.2500, L501.5200, L100.0100 #### [facility] [address] [place], [address] Creatinine [Mass/Vol] 0.72 mg/dL Normal 0.55-1.02 [facility] Comment on above: Result Comment: The validity of the calculated GFR GFRAA in patients over 70 years has not been determined. Clinical correlation is essential. Performed By: #### L 501.2300, L500.2500, L501.5200, L100.0100 #### [facility] [address] [place], [address] EST GFR - AA 104 mL/min Normal >60 [facility] Comment on above: Result Comment: Afri can Guyanese GFR Calc Performed By: #### L 501.2300, L500.2500, L501.5200, L100.0100 #### [facility] [address] [place], [address] GAP 3 Low 5-15 [facility] Comment on above: Performed By: #### L 501.2300, L500.2500, L501.5200, L100.0100 #### [facility] [address] [place], [address] GFR/1.73 sq M.predicted among non-blacks MDRD (S/P/Bld) [Vol rate/Area] 86 mL/min/{1.73_m2} Normal >60 [facility] Comment on above: Result Comment: Non- GFR Calc Performed By: #### L 501.2300, L500.2500, L501.5200, L100.0100 #### [facility] [address] [place], [address] Globulin (S) [Mass/Vol] 2.9 g/dL Normal 2.2-4.2 [facility] Comment on above: Performed By: #### L 501.2300, L500.2500, L501.5200, L100.0100 #### [facility] [address] [place], [address] Glucose [Mass/Vol] 103 mg/dL Normal 74-106 [facility] Comment on above: Result Comment: Fast ing Glucose result from 100 to 125 mg/dL suggests IMPAIRED HOMEOSTASIS per A.D.A. criteria. Performed By: #### L 501.2300, L500.2500, L501.5200, L100.0100 #### [facility] [address] [place], [id number] Potassium [Moles/Vol] 3.8 mmol/L Normal 3.5-5.1 [facility] Comment on above: Performed By: #### L 501.2300, L500.2500, L501.5200, L100.0100 #### [facility] [address] [place], [id number] Sodium [Moles/Vol] 143 mmol/L Normal 136-145 [facility] Comment on above: Performed By: #### L 501.2300, L500.2500, L501.5200, L100.0100 #### [facility] [address] [place], [address] T PROT 6.0 g/dL Low 6.4-8.2 [facility] Comment on above: Performed By: #### L 501.2300, L500.2500, L501.5200, L100.0100 #### [facility] [address] [place], [address] Urea nitrogen [Mass/Vol] 14 mg/dL Normal 7-18 [facility] Comment on above: Performed By: #### L 501.2300, L500.2500, L501.5200, L100.0100 #### [facility] [address] [place], [address] Thyroid Stim Hormone (TSH)on 06-15-2024 TSH 2.190 uIU/mL Normal 0.358-3.740 [facility] Comment on above: Performed By: #### L 501.2300, L500.2500, L501.5200, L100.0100 #### [facility] [address] [place], [place], [address] Spine Lumbar (Routine)on Spine Lumbar (Routine) [facility] [address] [place] [address] Spine Lumbar (Routine) MR#: [id number] Acct: [id number] Name: ANGELES LARIOS Rep #: [id number] : 1960 F 64 From: Mason Montgomery MD PCP: Dr. Martin Gutierrez MD Status: REG CLI Study: Spine Lumbar (Routine) Date of Exam: 06/13/24 Exam# [id number] Ordering Dr: Martin Gutierrez MD [id number] EXAM: MR LUMBAR SPINE WITHOUT INTRAVENOUS CONTRAST [...] EDT , CC: Dr. Martin Gutierrez MD Ice Cream Maker: Signed [facility] L/S Spine Bending Flex/[place] 05-23-2024 L/S Spine Bending Flex/Ext [facility] [address] [place] [address] [id number] L/S Spine Bending Flex/Ext MR#: [id number] Acct: [id number] Name: ANGELES LARIOS Rep #: [id number] : 1960 F 64 From: Marshal Rosales MD PCP: Dr. Martin Gutierrez MD Status: REG CLI Study: L/S Spine Bending Flex/Ext Date of Exam: 05/23 Exam# [id number] Ordering Dr: Armando Ga MD [id number] STUDY: X-RAY - LUMBAR SPINE REASON FOR [...] Armando Ga MD; Dr. Martin Gutierrez MD Ice Cream Maker: Signed Normal [facility] L/S Spine Min 4 Viewson 04-24 L/S Spine Min 4 Views [facility] [address] [place] [address] 355451 L/S Spine Min 4 Views MR#: [id number] Acct: [id number] Name: ANGELES LARIOS Rep #: [id number] : 1960 F 64 From: Gamaliel ridley MD PCP: Dr. Martin Gutierrez MD Status: REG CLI Study: L/S Spine Min 4 Views Date of Exam: 05/11/24 Exam# [id number] Ordering Dr: Martin Gutierrez MD [id number] STUDY: X-RAY - LUMBAR SPINE REASON FOR [...] EDT , CC: Dr. Martin Gutierrez MD Ice Cream Maker: Signed Normal [facility] Absolute lymphocyte countOrd ered By: Martin Gutierrez on 12-18-2023 Lymphocytes Auto (Unsp spec) [#/Vol] 1.53 10*3/uL 0.83-4.51 [facility] Automated lymphocyte count a s percentage of total leukocytesOrdered By: Martin Gutierrez on 12-18-2023 Lymphocytes/100 WBC Auto (Unsp spec) 26.8 % 19-41 [facility] Basophil percentageOrdered B y: Martin Gutierrez on 12-18-2023 Basophils/100 WBC (Bld) 1.2 % 0-1 [facility] Bilirubin [Mass/Vol] 0.30 mg/dL 0.20-1.00 [facility] Comment on above: For patients on eltr ombopag therapy, use of Dimension [place] TBIL is not recommended. Chloride [Moles/Vol] 110 mmol/L 98-107 [facility] Eosinophils/100 WBC (Bld) 1.8 % 0-5 [facility] Glucose [Mass/Vol] 104 mg/dL 74-106 [facility] Comment on above: Fasting Glucose resu lt from 100 to 125 mg/dL suggests IMPAIRED HOMEOSTASIS per A.D.A. criteria. Hemoglobin (Bld) [Mass/Vol] 10.5 g/dL 12.0-15.0 [facility] Monocytes/100 WBC (Bld) 9.6 % 0-10 [facility] Neutrophils (Bld) [#/Vol] 3.4 10*3/uL 2.0-7.7 [facility] Neutrophils/100 WBC (Bld) 59.9 % 47-70 [facility] Potassium [Moles/Vol] 3.7 mmol/L 3.5-5.1 [facility] Protein [Mass/Vol] 6.3 g/dL 6.4-8.2 [facility] Sodium [Moles/Vol] 142 mmol/L 136-145 [facility] WBC (Bld) [#/Vol] 5.7 10*3/uL 4.4-11.0 [facility] Determination of erythrocyte mean corpuscular volume (MCV)Ordered By: Martin Gutierrez on 12-18-2023 MCV (RBC) [Entitic vol] 113.6 fL 81-99 [facility] Erythrocyte distribution wid th ratioOrdered By: Martin Gutierrez 12-18-2023 Erythrocyte distribution width (RBC) [Ratio] 13.9 % 11.6-14.6 [facility] Erythrocyte distribution wid th standard deviationOrdered By: Martin Gutierrez 12-18-2023 Erythrocyte distribution width (RBC) [Entitic vol] 57.8 fL 35.1-43.9 [facility] Hematocrit Auto (Bld) [Volum e fraction]Ordered By: [facility] Matt on 12-18-2023 Hematocrit (Bld) [Volume fraction] 34.3 % 37-47 [facility] Immature granulocytes/100 WB C Auto (Bld)Ordered By: Martin Gutierrez 12-18-2023 Immature granulocytes/100 WBC (Bld) 0.700 % 0.0-0.9 [facility] Comment on above: IG% - Immature Granu locytes (promyelocytes, myelocytes and metamyelocytes) > 1% indicates that a LEFT SHIFT is Present. Laboratory - Chemistry and C hemistry - challengeOrdered By: Martin Gutierrez on 12-18-2023 Albumin/Globulin [Mass ratio] 1.2 {ratio} 0.9-2.4 [facility] ALP [Catalytic activity/Vol] 94 U/L 45-117 [facility] ALT [Catalytic activity/Vol] 37 U/L 13-56 [facility] CO2 [Moles/Vol] 29.0 mmol/L 21.0-32.0 [facility] Globulin (S) [Mass/Vol] 2.9 g/dL 2.2-4.2 [facility] Urea nitrogen/Creatinine [Mass ratio] 16.7 mg/mg 10-20 [facility] Laboratory - Hematology and Cell countsOrdered By: Martin Gutierrez on 12-18-2023 MCH (RBC) [Entitic mass] 34.8 pg 27.0-32.0 [facility] MCHC (RBC) [Mass/Vol] 30.6 g/dL 32-36 [facility] Nucleated RBC/100 WBC (Bld) [Ratio] 0 % 0-5 [facility] Platelet mean volume (Bld) [Entitic vol] 9.6 fL 6.2-12.0 [facility] Platelets (Bld) [#/Vol] 289 10*3/uL 150-450 [facility] No Panel InformationOrdered By: Martin Gutierrez on 12-18-2023 Estimated GFR (MDRD) Amer 104 mL/min >60 [facility] Comment on above: GFR Calc Estimated GFR (MDRD) Non-Af Amer 86 mL/min >60 [facility] Comment on above: Non- GFR Calc Vitamin D 25-Hydroxy 15.2 ng/mL [facility] Comment on above: Vitamin D 25(OH) Sta tus Range Deficiency <20 ng/mL (50nmol/L) Insufficiency 20 - 30 ng/mL (50 - 75 nmol/L) Sufficiency 30 - 100 ng/mL (75 - 250 nmol/L) Toxicity >100 ng/mL (>250 nmol/L) RBC Auto (Bld) [#/Vol]Ordere d By: Martin Gutierrez on 12-18-2023 RBC (Bld) [#/Vol] 3.02 10*6/uL 4.2-5.4 [facility] Serum or plasma calcium kamlesh urement (mass/volume)Ordered By: Martin Gutierrez on 12-18-2023 Calcium [Mass/Vol] 8.7 mg/dL 8.5-10.1 [facility] Serum or plasma creatinine m easurement (mass/volume)Ordered By: Martin Gutierrez on 12-18-2023 Creatinine [Mass/Vol] 0.72 mg/dL 0.55-1.02 [facility] Comment on above: The validity of the calculated GFR & GFRAA in patients over 70 years has not been determined. Clinical correlation is essential. Serum or plasma thyroid stim ulating hormone (TSH) measurement (units/volume)Ordered By: Martin Gutierrez on 12-18-2023 TSH Qn 2.41 uIU/mL 0.358-3.74 [facility] Serum or plasma urea nitroge n measurement (mass/volume)Ordered By: Martin Gutierrez on 12-18-2023 Urea nitrogen [Mass/Vol] 12 mg/dL 7-18 [facility] Thin prep Papanicolaou smear with manual screeningOrdered By: Martin Gutierrez on 12-18-2023 Thin prep Papanicolaou smear with manual screening 3.4 g/dL 3.2-5.0 [facility] Thin prep Papanicolaou smear with manual screening 22 U/L 15-37 [facility] Thin prep Papanicolaou smear with manual screening 3 5-15 [facility] Absolute lymphocyte countOrd ered By: Simon Ulloa on 09-30-2023 Lymphocytes Auto (Unsp spec) [#/Vol] 1.61 10*3/uL 0.83-4.51 [facility] Automated lymphocyte count a s percentage of total leukocytesOrdered By: Simon Ulloa on 09-30-2023 Lymphocytes/100 WBC Auto (Unsp spec) 18.0 % 19-41 [facility] Basophil percentageOrdered B y: Simon Ulloa on 09-30-2023 Basophils/100 WBC (Bld) 0.8 % 0-1 [facility] Eosinophils/100 WBC (Bld) 1.1 % 0-5 [facility] Hemoglobin (Bld) [Mass/Vol] 13.7 g/dL 12.0-15.0 [facility] Monocytes/100 WBC (Bld) 7.0 % 0-10 [facility] Neutrophils (Bld) [#/Vol] 6.5 10*3/uL 2.0-7.7 [facility] Neutrophils/100 WBC (Bld) 72.7 % 47-70 [facility] WBC (Bld) [#/Vol] 8.9 10*3/uL 4.4-11.0 [facility] Determination of erythrocyte mean corpuscular volume (MCV)Ordered By: Simon Ulloa on 09-30-2023 MCV (RBC) [Entitic vol] 105.7 fL 81-99 [facility] Erythrocyte distribution wid th ratioOrdered By: [facility] Artemio on 09-30-2023 Erythrocyte distribution width (RBC) [Ratio] 14.0 % 11.6-14.6 [facility] Erythrocyte distribution wid th standard deviationOrdered By: Simon Ulloa on 09-30-2023 Erythrocyte distribution width (RBC) [Entitic vol] 54.8 fL 35.1-43.9 [facility] Hematocrit Auto (Bld) [Volum e fraction]Ordered By: Simon Ulloa on 09-30-2023 Hematocrit (Bld) [Volume fraction] 43.0 % 37-47 [facility] Immature granulocytes/100 WB C Auto (Bld)[facility] Immature granulocytes/100 WBC (Bld) 0.400 % 0.0-0.9 [facility] Comment on above: IG% - Immature Granu locytes (promyelocytes, myelocytes and metamyelocytes) > 1% indicates that a LEFT SHIFT is Present. Iron measurement (mass/mass) Ordered By: Simon Ulloa on 09-30-2023 Iron (Unsp spec) [Mass/Mass] 39 ug/dL 50-170 [facility] Laboratory - Chemistry and C hemistry - challengeOrdered By: Simon Ulloa on 09-30-2023 Cobalamin (Vitamin B12) [Mass/Vol] 257 pg/mL 211-911 [facility] Ferritin [Mass/Vol] 27 ng/mL 8-252 [facility] Laboratory - Hematology and Cell countsOrdered By: Simon Ulloa on 09-30-2023 MCH (RBC) [Entitic mass] 33.7 pg 27.0-32.0 [facility] MCHC (RBC) [Mass/Vol] 31.9 g/dL 32-36 [facility] Nucleated RBC/100 WBC (Bld) [Ratio] 0 % 0-5 [facility] Platelet mean volume (Bld) [Entitic vol] 9.4 fL 6.2-12.0 [facility] Platelets (Bld) [#/Vol] 279 10*3/uL 150-450 [facility] No Panel InformationOrdered By: Simon Ulloa on 09-30-2023 Total Iron Binding Capacity 346 ug/dL 250-450 [facility] RBC Auto (Bld) [#/Vol]Ordere d By: Simon Ulloa on 09-30-2023 RBC (Bld) [#/Vol] 4.07 10*6/uL 4.2-5.4 [facility] Serum or plasma iron saturat ion measurement (mass fraction)Ordered By: Simon Ulloa on 09-30-2023 Iron saturation [Mass fraction] 11.3 % 15.0-55.0 [facility] Absolute lymphocyte countOrd ered By: Martin Gutierrez on 08-26-2023 Lymphocytes Auto (Unsp spec) [#/Vol] 1.75 10*3/uL 0.83-4.51 [facility] Basophil percentageOrdered B y: Martin Gutierrez on 08-26-2023 Basophils/100 WBC (Bld) 0.6 % 0-1 [facility] Eosinophils/100 WBC (Bld) 0.6 % 0-5 [facility] Neutrophils (Bld) [#/Vol] 6.9 10*3/uL 2.0-7.7 [facility] Neutrophils/100 WBC (Bld) 69.7 % 47-70 [facility] WBC (Bld) [#/Vol] 9.9 10*3/uL 4.4-11.0 [facility] Blood erythrocytes count (nu mber/volume)Ordered By: Martin Gutierrez on 08-26-2023 RBC (Bld) [#/Vol] 3.61 10*6/uL 4.2-5.4 [facility] Blood hemoglobin measurement (mass/volume)Ordered By: Martin Gutierrez on 08-26-2023 Hemoglobin (Bld) [Mass/Vol] 12.1 g/dL 12.0-15.0 [facility] Blood lymphocytes/100 leukoc ytesOrdered By: Martin Gutierrez on 08-26-2023 Lymphocytes/100 WBC (Bld) 17.6 % 19-41 [facility] Blood monocytes/100 leukocyt esOrdered By: Martin Gutierrez on 08-26-2023 Monocytes/100 WBC (Bld) 11.3 % 0-10 [facility] Blood platelet mean volumeOr dered By: Martin Gutierrez on 08-26-2023 Platelet mean volume (Bld) [Entitic vol] 9.9 fL 6.2-12.0 [facility] Determination of erythrocyte mean corpuscular volume (MCV)Ordered By: Martin Gutierrez on 08-26-2023 MCV (RBC) [Entitic vol] 104.4 fL 81-99 [facility] Hematocrit Auto (Bld) [Volum e fraction]Ordered By: Martin Gutierrez on 08-26-2023 Hematocrit (Bld) [Volume fraction] 37.7 % 37-47 [facility] Iron measurement (mass/mass) Ordered By: Martin Gutierrez on 08-26-2023 Iron (Unsp spec) [Mass/Mass] 14 ug/dL 50-170 [facility] Laboratory - Hematology and Cell countsOrdered By: Martin Gutierrez on 08-26-2023 Erythrocyte distribution width (RBC) [Entitic vol] 47.9 fL 35.1-43.9 [facility] Erythrocyte distribution width (RBC) [Ratio] 12.4 % 11.6-14.6 [facility] Immature granulocytes/100 WBC (Bld) 0.200 % 0.0-0.9 [facility] Comment on above: IG% - Immature Granu locytes (promyelocytes, myelocytes and metamyelocytes) > 1% indicates that a LEFT SHIFT is Present. MCH (RBC) [Entitic mass] 33.5 pg 27.0-32.0 [facility] Nucleated RBC/100 WBC (Bld) [Ratio] 0 % 0-5 [facility] MCHC Auto (RBC) [Mass/Vol]Or dered By: Matrin Gutierrez on 08-26-2023 MCHC (RBC) [Mass/Vol] 32.1 g/dL 32-36 [facility] Platelets bldOrdered By: Martin Gutierrez on 08-26-2023 Platelets (Bld) [#/Vol] 295 10*3/uL 150-450 [facility] Absolute lymphocyte countOrd ered By: Martin Gutierrez on 06-09-2023 Lymphocytes Auto (Unsp spec) [#/Vol] 1.24 10*3/uL 0.83-4.51 [facility] Basophil percentageOrdered B y: Martin Gutierrez on 06-09-2023 Basophils/100 WBC (Bld) 0.9 % 0-1 [facility] Bilirubin [Mass/Vol] 0.20 mg/dL 0.20-1.00 [facility] Comment on above: For patients on eltr ombopag therapy, use of Dimension [place] TBIL is not recommended. Chloride [Moles/Vol] 109 mmol/L 98-107 [facility] Eosinophils/100 WBC (Bld) 2.1 % 0-5 [facility] Glucose [Mass/Vol] 141 mg/dL 74-106 [facility] Comment on above: Fasting Glucose resu lt greater than or equal to 126 mg/dL suggests DIABETES MELLITUS per A.D.A. criteria. Neutrophils (Bld) [#/Vol] 3.6 10*3/uL 2.0-7.7 [facility] Neutrophils/100 WBC (Bld) 66.2 % 47-70 [facility] Potassium [Moles/Vol] 3.8 mmol/L 3.5-5.1 [facility] Protein [Mass/Vol] 6.8 g/dL 6.4-8.2 [facility] Sodium [Moles/Vol] 141 mmol/L 136-145 [facility] WBC (Bld) [#/Vol] 5.4 10*3/uL 4.4-11.0 [facility] Blood erythrocytes count (nu mber/volume)Ordered By: Martin Gutierrez on 06-09-2023 RBC (Bld) [#/Vol] 3.81 10*6/uL 4.2-5.4 [facility] Blood hemoglobin measurement (mass/volume)Ordered By: Martin Gutierrez on 06-09-2023 Hemoglobin (Bld) [Mass/Vol] 13.2 g/dL 12.0-15.0 [facility] Blood lymphocytes/100 leukoc ytesOrdered By: Martin Gutierrez on 06-09-2023 Lymphocytes/100 WBC (Bld) 23.1 % 19-41 [facility] Blood monocytes/100 leukocyt esOrdered By: Martin Gutierrez on 06-09-2023 Monocytes/100 WBC (Bld) 7.5 % 0-10 [facility] Blood platelet mean volumeOr dered By: Martin Gutierrez on 06-09-2023 Platelet mean volume (Bld) [Entitic vol] 9.5 fL 6.2-12.0 [facility] Determination of erythrocyte mean corpuscular volume (MCV)Ordered By: Martin Gutierrez on 06-09-2023 MCV (RBC) [Entitic vol] 108.4 fL 81-99 [facility] Hematocrit Auto (Bld) [Volum e fraction]Ordered By: Martin Matt on 06-09-2023 Hematocrit (Bld) [Volume fraction] 41.3 % 37-47 [facility] Laboratory - Chemistry and C hemistry - challengeOrdered By: Martin Gutierrez on 06-09-2023 ALP [Catalytic activity/Vol] 130 U/L 45-117 [facility] ALT [Catalytic activity/Vol] 21 U/L 13-56 [facility] CO2 [Moles/Vol] 28.0 mmol/L 21.0-32.0 [facility] Globulin (S) [Mass/Vol] 3.5 g/dL 2.2-4.2 [facility] Urea nitrogen/Creatinine [Mass ratio] 14.2 mg/mg 10-20 [facility] Laboratory - Hematology and Cell countsOrdered By: Martin Gutierrez on 06-09-2023 Erythrocyte distribution width (RBC) [Entitic vol] 57.1 fL 35.1-43.9 [facility] Erythrocyte distribution width (RBC) [Ratio] 14.5 % 11.6-14.6 [facility] Immature granulocytes/100 WBC (Bld) 0.200 % 0.0-0.9 [facility] Comment on above: IG% - Immature Granu locytes (promyelocytes, myelocytes and metamyelocytes) > 1% indicates that a LEFT SHIFT is Present. MCH (RBC) [Entitic mass] 34.6 pg 27.0-32.0 [facility] Nucleated RBC/100 WBC (Bld) [Ratio] 0 % 0-5 [facility] MCHC Auto (RBC) [Mass/Vol]Or dered By: Martin Gutierrez on 06-09-2023 MCHC (RBC) [Mass/Vol] 32.0 g/dL 32-36 [facility] No Panel InformationOrdered By: Martin Gutierrez on 06-09-2023 Estimated GFR (MDRD) Amer 96 mL/min >60 [facility] Comment on above: GFR Calc Estimated GFR (MDRD) Non-Af Amer 80 mL/min >60 [facility] Comment on above: Non- GFR Calc Thyroid Stimulating Hormone (TSH) 1.26 uIU/mL 0.358-3.74 [facility] Vitamin D 25-Hydroxy 23.0 ng/mL [facility] Comment on above: Vitamin D 25(OH) Sta tus Range Deficiency <20 ng/mL (50nmol/L) Insufficiency 20 - 30 ng/mL (50 - 75 nmol/L) Sufficiency 30 - 100 ng/mL (75 - 250 nmol/L) Toxicity >100 ng/mL (>250 nmol/L) Platelets bldOrdered By: Martin Gutierrez on 06-09-2023 Platelets (Bld) [#/Vol] 282 10*3/uL 150-450 [facility] Serum or plasma albumin kamlesh urement (mass/volume)Ordered By: Martin Gutierrez 06-09-2023 Albumin [Mass/Vol] 3.3 g/dL 3.2-5.0 [facility] Serum or plasma albumin/glob ulin mass ratioOrdered By: Martin Gutierrez 06-09-2023 Albumin/Globulin [Mass ratio] 0.9 {ratio} 0.9-2.4 [facility] Serum or plasma calcium kamlesh urement (mass/volume)Ordered By: Martin Gutierrez on 06-09-2023 Calcium [Mass/Vol] 8.7 mg/dL 8.5-10.1 [facility] Serum or plasma creatinine m easurement (mass/volume)Ordered By: Martin Gutierrez 06-09-2023 Creatinine [Mass/Vol] 0.77 mg/dL 0.55-1.02 [facility] Comment on above: The validity of the calculated GFR & GFRAA in patients over 70 years has not been determined. Clinical correlation is essential. Serum or plasma urea nitroge n measurement (mass/volume)Ordered By: Martin Gutierrez on 06-09-2023 Urea nitrogen [Mass/Vol] 11 mg/dL 7-18 [facility] Thin prep Papanicolaou smear with manual screeningOrdered By: Martin Gutierrez on 06-09-2023 Thin prep Papanicolaou smear with manual screening 11 U/L 15-37 [facility] Thin prep Papanicolaou smear with manual screening 4 5-15 [facility] Laboratory - Microbiology an d Antimicrobial susceptibilityOrdered By: Martin Gutierrez on 05-14-2023 SARS-CoV-2 (COVID-19) RNA RENATE+probe Ql (Unsp spec) [facility] SARS-CoV-2 (COVID-19) RNA RENATE+probe Ql (Unsp spec) [facility] No Panel InformationOrdered By: Martin Gutierrez on 05-14-2023 Influenza Types A,B Direct FA (MARQUEZ) [facility] Influenza Types A,B Direct FA (MARQUEZ) [facility] RSV Ag EIAOrdered By: Martin mary on 05-14-2023 RSV Ag Immune stain Ql (Tiss) [facility] RSV Ag Immune stain Ql (Tiss) [facility] Absolute lymphocyte countOrd ered By: Simon Ulloa on 04-15-2023 Lymphocytes Auto (Unsp spec) [#/Vol] 1.11 10*3/uL 0.83-4.51 [facility] Basophil percentageOrdered B y: Simon Ulloa on 04-15-2023 Basophils/100 WBC (Bld) 0.9 % 0-1 [facility] Eosinophils/100 WBC (Bld) 1.7 % 0-5 [facility] Neutrophils (Bld) [#/Vol] 5.0 10*3/uL 2.0-7.7 [facility] Neutrophils/100 WBC (Bld) 70.3 % 47-70 [facility] WBC (Bld) [#/Vol] 7.1 10*3/uL 4.4-11.0 [facility] Blood erythrocytes count (nu mber/volume)Ordered By: Simon Ulloa on 04-15-2023 RBC (Bld) [#/Vol] 4.09 10*6/uL 4.2-5.4 [facility] Blood hemoglobin measurement (mass/volume)Ordered By: Simon Ulloa on 04-15-2023 Hemoglobin (Bld) [Mass/Vol] 14.3 g/dL 12.0-15.0 [facility] Blood lymphocytes/100 leukoc ytesOrdered By: [facility]23 Lymphocytes/100 WBC (Bld) 15.7 % 19-41 [facility] Blood monocytes/100 leukocyt esOrdered By: [facility] Artemio on 04-15-2023 Monocytes/100 WBC (Bld) 11.3 % 0-10 [facility] Blood platelet mean volumeOr dered By: [facility] on 04-15-2023 Platelet mean volume (Bld) [Entitic vol] 9.4 fL 6.2-12.0 [facility] Determination of erythrocyte mean corpuscular volume (MCV)Ordered By: [facility] 04-15-2023 MCV (RBC) [Entitic vol] 103.7 fL 81-99 [facility] Hematocrit Auto (Bld) [Volum e fraction]Ordered By: Simon Ulloa on 04-15-2023 Hematocrit (Bld) [Volume fraction] 42.4 % 37-47 [facility] Hemoglobin in reticulocytes (mass per reticulocyte)Ordered By: [facility] Artemio on 04-15-2023 Hemoglobin (Reticulocytes) [Entitic mass] 35.8 pg 30-35 [facility] Iron measurement (mass/mass) Or[facility]: [facility] 04-[facility]23 Iron (Unsp spec) [Mass/Mass] 80 ug/dL 50-170 [facility] Laboratory - Hematology and Cell countsOrdered By: [facility] on 04-15-2023 Erythrocyte distribution width (RBC) [Entitic vol] 49.9 fL 35.1-43.9 [facility] Erythrocyte distribution width (RBC) [Ratio] 13.2 % 11.6-14.6 [facility] Immature granulocytes/100 WBC (Bld) 0.100 % 0.0-0.9 [facility] Comment on above: IG% - Immature Granu locytes (promyelocytes, myelocytes and metamyelocytes) > 1% indicates that a LEFT SHIFT is Present. MCH (RBC) [Entitic mass] 35.0 pg 27.0-32.0 [facility] Nucleated RBC/100 WBC (Bld) [Ratio] 0 % 0-5 [facility] MCHC Auto (RBC) [Mass/Vol]Or dered By: Simon Ulloa on 04-15-2023 MCHC (RBC) [Mass/Vol] 33.7 g/dL 32-36 [facility] No Panel InformationOrdered By: Simon Ulloa on 04-15-2023 Immature Reticulocyte Fraction 16.80 % 3.00-15.90 [facility] Reticulocyte Count 2.48 % 0.5-1.5 [facility] Total Iron Binding Capacity 335 ug/dL 250-450 [facility] Platelets bldOrdered By: Refugio Ulloa on 04-15-2023 Platelets (Bld) [#/Vol] 243 10*3/uL 150-450 [facility] Serum or plasma ferritin ibrahima surement (mass/volume)Ordered By: Simon Ulloa on 04-15-2023 Ferritin [Mass/Vol] 34 ng/mL 8-252 [facility] Serum or plasma iron saturat ion measurement (mass fraction)Ordered By: Simon Ulloa on 04-15-2023 Iron saturation [Mass fraction] 23.9 % 15.0-55.0 [facility] Absolute lymphocyte countOrd ered By: Dr. Gutierrez on 12-11-2022 Lymphocytes Auto (Unsp spec) [#/Vol] 1.66 10*3/uL 0.83-4.51 [facility] Basophil percentageOrdered B y: Dr. Gutierrez on 12-11-2022 Basophils/100 WBC (Bld) 1.0 % 0-1 [facility] Bilirubin [Mass/Vol] 0.30 mg/dL 0.20-1.00 [facility] Comment on above: For patients on eltr ombopag therapy, use of Dimension [place] TBIL is not recommended. Chloride [Moles/Vol] 107 mmol/L 98-107 [facility] Cholesterol [Mass/Vol] 188 mg/dL <200 [facility] Comment on above: <200 mg/dL Desirable 200-240 mg/dL Borderline >240 mg/dL High Risk Eosinophils/100 WBC (Bld) 1.5 % 0-5 [facility] Glucose [Mass/Vol] 101 mg/dL 74-106 [facility] Comment on above: Fasting Glucose resu lt from 100 to 125 mg/dL suggests IMPAIRED HOMEOSTASIS per A.D.A. criteria. Neutrophils (Bld) [#/Vol] 4.5 10*3/uL 2.0-7.7 [facility] Neutrophils/100 WBC (Bld) 63.8 % 47-70 [facility] Potassium [Moles/Vol] 3.8 mmol/L 3.5-5.1 [facility] Protein [Mass/Vol] 7.3 g/dL 6.4-8.2 [facility] Sodium [Moles/Vol] 138 mmol/L 136-145 [facility] Triglyceride [Mass/Vol] 154 mg/dL <199 [facility] Comment on above: The drugs N-Acetylcy steine and Metamizole may falsely depress this assay.Serum Triglycerides Reference Interval Normal <150 mg/dL Borderline high 150 - 199 mg/dL High 200 - 499 mg/dL Very High > or = 500 mg/dL WBC (Bld) [#/Vol] 7.1 10*3/uL 4.4-11.0 [facility] Blood erythrocytes count (nu mber/volume)Ordered By: Dr. Gutierrez on 12-11-2022 RBC (Bld) [#/Vol] 4.11 10*6/uL 4.2-5.4 [facility] Blood hemoglobin measurement (mass/volume)Ordered By: Dr. Gutierrez on 12-11-2022 Hemoglobin (Bld) [Mass/Vol] 14.3 g/dL 12.0-15.0 [facility] Blood lymphocytes/100 leukoc ytesOrdered By: Dr. Gutierrez on 12-11-2022 Lymphocytes/100 WBC (Bld) 23.3 % 19-41 [facility] Blood monocytes/100 leukocyt esOrdered By: Dr. Gutierrez on 12-11-2022 Monocytes/100 WBC (Bld) 10.0 % 0-10 [facility] Blood platelet mean volumeOr dered By: Dr. Gutierrez on 12-11-2022 Platelet mean volume (Bld) [Entitic vol] 10.4 fL 6.2-12.0 [facility] Determination of erythrocyte mean corpuscular volume (MCV)Ordered By: Dr. Gutierrez on 12-11-2022 MCV (RBC) [Entitic vol] 107.1 fL 81-99 [facility] Hematocrit Auto (Bld) [Volum e fraction]Ordered By: Dr. Gutierrez on 12-11-2022 Hematocrit (Bld) [Volume fraction] 44.0 % 37-47 [facility] Laboratory - Chemistry and C hemistry - challengeOrdered By: Dr. Gutierrez on 12-11-2022 ALP [Catalytic activity/Vol] 135 U/L 45-117 [facility] ALT [Catalytic activity/Vol] 21 U/L 13-56 [facility] CO2 [Moles/Vol] 26.0 mmol/L 21.0-32.0 [facility] Globulin (S) [Mass/Vol] 3.5 g/dL 2.2-4.2 [facility] Urea nitrogen/Creatinine [Mass ratio] 13.1 mg/mg 10-20 [facility] Laboratory - Hematology and Cell countsOrdered By: Dr. Gutierrez on 12-11-2022 Erythrocyte distribution width (RBC) [Entitic vol] 50.1 fL 35.1-43.9 [facility] Erythrocyte distribution width (RBC) [Ratio] 12.5 % 11.6-14.6 [facility] Immature granulocytes/100 WBC (Bld) 0.400 % 0.0-0.9 [facility] Comment on above: IG% - Immature Granu locytes (promyelocytes, myelocytes and metamyelocytes) > 1% indicates that a LEFT SHIFT is Present. MCH (RBC) [Entitic mass] 34.8 pg 27.0-32.0 [facility] Nucleated RBC/100 WBC (Bld) [Ratio] 0 % 0-5 [facility] MCHC Auto (RBC) [Mass/Vol]Or dered By: Dr. Gutierrez on 12-11-2022 MCHC (RBC) [Mass/Vol] 32.5 g/dL 32-36 [facility] No Panel InformationOrdered By: Dr. Gutierrez on 12-11-2022 Estimated GFR (MDRD) Amer 98 mL/min >60 [facility] Comment on above: GFR Calc Estimated GFR (MDRD) Non-Af Amer 81 mL/min >60 [facility] Comment on above: Non- GFR Calc Thyroid Stimulating Hormone (TSH) 2.80 uIU/mL 0.358-3.74 [facility] Vitamin D 25-Hydroxy 43.1 ng/mL [facility] Comment on above: Vitamin D 25(OH) Sta tus Range Deficiency <20 ng/mL (50nmol/L) Insufficiency 20 - 30 ng/mL (50 - 75 nmol/L) Sufficiency 30 - 100 ng/mL (75 - 250 nmol/L) Toxicity >100 ng/mL (>250 nmol/L) Platelets bldOrdered By: Dr. Gutierrez on 12-11-2022 Platelets (Bld) [#/Vol] 300 10*3/uL 150-450 [facility] Serum or plasma albumin kamlesh urement (mass/volume)Ordered By: Dr. Gutierrez on 12-11-2022 Albumin [Mass/Vol] 3.8 g/dL 3.2-5.0 [facility] Serum or plasma albumin/glob ulin mass ratioOrdered By: Dr. Gutierrez on 12-11-2022 Albumin/Globulin [Mass ratio] 1.1 {ratio} 0.9-2.4 [facility] Serum or plasma calcium kamlesh urement (mass/volume)Ordered By: Dr. Gutierrez on 12-11-2022 Calcium [Mass/Vol] 9.4 mg/dL 8.5-10.1 [facility] Serum or plasma cholesterol in HDL measurement (mass/volume)Ordered By: Dr. Gutierrez on 12-11-2022 Cholesterol in HDL [Mass/Vol] 40 mg/dL >40 [facility] Comment on above: The drugs N-Acetylcy steine and Metamizole may falsely depress this assay. Reference Range HDL <40 mg/dL Low HDL Cholesterol HDL >or= 60 mg/dL High HDL Cholesterol Serum or plasma cholesterol in VLDL measurement (mass/volume)Ordered By: Dr. Gutierrez on 12-11-2022 Cholesterol in VLDL [Mass/Vol] 31 mg/dL 5-40 [facility] Serum or plasma creatinine m easurement (mass/volume)Ordered By: Dr. Gutierrez on 12-11-2022 Creatinine [Mass/Vol] 0.76 mg/dL 0.55-1.02 [facility] Comment on above: The validity of the calculated GFR & GFRAA in patients over 70 years has not been determined. Clinical correlation is essential. Serum or plasma low density lipoprotein (LDL) cholesterol measurement (mass/volume)Ordered By: Dr. Gutierrez on 12-11-2022 Cholesterol in LDL [Mass/Vol] 117 mg/dL 0-130 [facility] Serum or plasma urea nitroge n measurement (mass/volume)Ordered By: Dr. Gutierrez on 12-11-2022 Urea nitrogen [Mass/Vol] 10 mg/dL 7-18 [facility] Thin prep Papanicolaou smear with manual screeningOrdered By: Dr. Gutierrez on 12-11-2022 Thin prep Papanicolaou smear with manual screening 18 U/L 15-37 [facility] Thin prep Papanicolaou smear with manual screening 5 5-15 [facility] Bacteria identified Cx Nom ( Wound)Ordered By: Dr. Gutierrez on 11-29-2022 Wound Culture Streptococcus group A [facility] Gram stain for investigation of transfusion reactionOrdered By: Dr. Gutierrez on 11-28-2022 Microscopic observation Gram stain Nom (Unsp spec) [facility] No Panel InformationOrdered By: Dr. Gutierrez on 11-27-2022 Methicillin-Resist S.aureus DNA PCR Negative Negative [facility] Staphylococcus aureus DNA de tection by probe and target amplification methodOrdered By: Dr. Gutierrez on 11-27-2022 S. aureus DNA RENATE+probe Ql (Unsp spec) Negative Negative [facility] Absolute lymphocyte countOrd ered By: Dr. Ulloa on 09-02-2022 Lymphocytes Auto (Unsp spec) [#/Vol] 1.71 10*3/uL 0.83-4.51 [facility] Basophil percentageOrdered B y: Dr. Ulloa on 09-02-2022 Basophils/100 WBC (Bld) 1.2 % 0-1 [facility] Eosinophils/100 WBC (Bld) 2.5 % 0-5 [facility] Neutrophils (Bld) [#/Vol] 3.3 10*3/uL 2.0-7.7 [facility] Neutrophils/100 WBC (Bld) 55.4 % 47-70 [facility] WBC (Bld) [#/Vol] 6.0 10*3/uL 4.4-11.0 [facility] Blood erythrocytes count (nu mber/volume)Ordered By: Dr. Ulloa on 09-02-2022 RBC (Bld) [#/Vol] 4.28 10*6/uL 4.2-5.4 [facility] Blood hemoglobin measurement (mass/volume)Ordered By: Dr. Ulloa on 09-02-2022 Hemoglobin (Bld) [Mass/Vol] 14.9 g/dL 12.0-15.0 [facility] Blood lymphocytes/100 leukoc ytesOrdered By: Dr. Ulloa on 09-02-2022 Lymphocytes/100 WBC (Bld) 28.7 % 19-41 [facility] Blood monocytes/100 leukocyt esOrdered By: Dr. Ulloa on 09-02-2022 Monocytes/100 WBC (Bld) 11.9 % 0-10 [facility] Blood platelet mean volumeOr dered By: Dr. Ulloa on 09-02-2022 Platelet mean volume (Bld) [Entitic vol] 9.4 fL 6.2-12.0 [facility] Determination of erythrocyte mean corpuscular volume (MCV)Ordered By: Dr. Ulloa on 09-02-2022 MCV (RBC) [Entitic vol] 102.8 fL 81-99 [facility] Hematocrit Auto (Bld) [Volum e fraction]Ordered By: Dr. Ulloa on 09-02-2022 Hematocrit (Bld) [Volume fraction] 44.0 % 37-47 [facility] Iron measurement (mass/mass) Ordered By: Dr. Ulloa on 09-02-2022 Iron (Unsp spec) [Mass/Mass] 45 ug/dL 50-170 [facility] Laboratory - Chemistry and C hemistry - challengeOrdered By: Dr. Ulloa on 09-02-2022 Cobalamin (Vitamin B12) [Mass/Vol] 255 pg/mL 211-911 [facility] Laboratory - Hematology and Cell countsOrdered By: Dr. Ulloa on 09-02-2022 Erythrocyte distribution width (RBC) [Entitic vol] 50.5 fL 35.1-43.9 [facility] Erythrocyte distribution width (RBC) [Ratio] 13.2 % 11.6-14.6 [facility] Immature granulocytes/100 WBC (Bld) 0.300 % 0.0-0.9 [facility] Comment on above: IG% - Immature Granu locytes (promyelocytes, myelocytes and metamyelocytes) > 1% indicates that a LEFT SHIFT is Present. MCH (RBC) [Entitic mass] 34.8 pg 27.0-32.0 [facility] Nucleated RBC/100 WBC (Bld) [Ratio] 0 % 0-5 [facility] MCHC Auto (RBC) [Mass/Vol]Or dered By: Dr. Ulloa on 09-02-2022 MCHC (RBC) [Mass/Vol] 33.9 g/dL 32-36 [facility] No Panel InformationOrdered By: Dr. Ulloa on 09-02-2022 Total Iron Binding Capacity 321 ug/dL 250-450 [facility] Platelets bldOrdered By: Dr. Ulloa on 09-02-2022 Platelets (Bld) [#/Vol] 254 10*3/uL 150-450 [facility] Serum or plasma ferritin ibrahima surement (mass/volume)Ordered By: Dr. Ulloa on 09-02-2022 Ferritin [Mass/Vol] 26 ng/mL 8-252 [facility] Serum or plasma iron saturat ion measurement (mass fraction)Ordered By: Dr. Ulloa on 09-02-2022 Iron saturation [Mass fraction] 14.0 % 15.0-55.0 [facility] Absolute lymphocyte counton 06-11-2022 Lymphocytes Auto (Unsp spec) [#/Vol] 1.27 10*3/uL 0.83-4.51 [facility] Work Phone: Basophil percentageon 2021 Basophils/100 WBC (Bld) 1.3 % 0-1 [facility] Work Phone: Bilirubin [Mass/Vol] 0.40 mg/dL 0.20-1.00 [facility] Work Phone: Comment on above: For patients on eltr ombopag therapy, use of Dimension [place] TBIL is not recommended. Chloride [Moles/Vol] 109 mmol/L 98-107 [facility] Work Phone: Eosinophils/100 WBC (Bld) 2.3 % 0-5 [facility] Work Phone: Glucose [Mass/Vol] 115 mg/dL 74-106 [facility] Work Phone: Comment on above: Fasting Glucose resu lt from 100 to 125 mg/dL suggests IMPAIRED HOMEOSTASIS per A.D.A. criteria. Neutrophils (Bld) [#/Vol] 2.7 10*3/uL 2.0-7.7 [facility] Work Phone: Neutrophils/100 WBC (Bld) 57.2 % 47-70 [facility] Work Phone: Potassium [Moles/Vol] 3.9 mmol/L 3.5-5.1 [facility] Work Phone: Protein [Mass/Vol] 7.2 g/dL 6.4-8.2 [facility] Work Phone: Sodium [Moles/Vol] 141 mmol/L 136-145 [facility] Work Phone: WBC (Bld) [#/Vol] 4.7 10*3/uL 4.4-11.0 [facility] Work Phone: Blood erythrocytes count (nu mber/volume)on 06-11-2022 RBC (Bld) [#/Vol] 4.32 10*6/uL 4.2-5.4 [facility] Work Phone: Blood hemoglobin measurement (mass/volume)on 06-11-2022 Hemoglobin (Bld) [Mass/Vol] 14.9 g/dL 12.0-15.0 [facility] Work Phone: Blood lymphocytes/100 leukoc yteson 06-11-2022 Lymphocytes/100 WBC (Bld) 26.8 % 19-41 [facility] Work Phone: Blood monocytes/100 leukocyt eson 06-11-2022 Monocytes/100 WBC (Bld) 12.4 % 0-10 [facility] Work Phone: Blood platelet mean volumeon 06-11-2022 Platelet mean volume (Bld) [Entitic vol] 10.1 fL 6.2-12.0 [facility] Work Phone: Determination of erythrocyte mean corpuscular volume (MCV)on 06-11-2022 MCV (RBC) [Entitic vol] 104.6 fL 81-99 [facility] Work Phone: Hematocrit Auto (Bld) [Volum e fraction]on 06-11-2022 Hematocrit (Bld) [Volume fraction] 45.2 % 37-47 [facility] Work Phone: Laboratory - Chemistry and C hemistry - challengeon 06-11-2022 ALP [Catalytic activity/Vol] 127 U/L 45-117 [facility] Work Phone: ALT [Catalytic activity/Vol] 23 U/L 13-56 [facility] Work Phone: CO2 [Moles/Vol] 26.0 mmol/L 21.0-32.0 [facility] Work Phone: Globulin (S) [Mass/Vol] 3.6 g/dL 2.2-4.2 [facility] Work Phone: Urea nitrogen/Creatinine [Mass ratio] 15.0 mg/mg 10-20 [facility] Work Phone: Laboratory - Hematology and Cell countson 06-11-2022 Erythrocyte distribution width (RBC) [Entitic vol] 48.8 fL 35.1-43.9 [facility] Work Phone: Erythrocyte distribution width (RBC) [Ratio] 12.6 % 11.6-14.6 [facility] Work Phone: Immature granulocytes/100 WBC (Bld) 0.000 % 0.0-0.9 [facility] Work Phone: Comment on above: IG% - Immature Granu locytes (promyelocytes, myelocytes and metamyelocytes) > 1% indicates that a LEFT SHIFT is Present. MCH (RBC) [Entitic mass] 34.5 pg 27.0-32.0 [facility] Work Phone: Nucleated RBC/100 WBC (Bld) [Ratio] 0 % 0-5 [facility] Work Phone: MCHC Auto (RBC) [Mass/Vol]on 06-11-2022 MCHC (RBC) [Mass/Vol] 33.0 g/dL 32-36 [facility] Work Phone: No Panel Informationon 06-11 Estimated GFR (MDRD) Amer 102 mL/min >60 [facility] Work Phone: Comment on above: GFR Calc Estimated GFR (MDRD) Non-Af Amer 85 mL/min >60 [facility] Work Phone: Comment on above: Non- GFR Calc Thyroid Stimulating Hormone (TSH) 1.03 uIU/mL 0.358-3.74 [facility] Work Phone: Vitamin D 25-Hydroxy 41.0 ng/mL [facility] Work Phone: Comment on above: Vitamin D 25(OH) Sta tus Range Deficiency <20 ng/mL (50nmol/L) Insufficiency 20 - 30 ng/mL (50 - 75 nmol/L) Sufficiency 30 - 100 ng/mL (75 - 250 nmol/L) Toxicity >100 ng/mL (>250 nmol/L) Platelets bldon 06-11-2022 Platelets (Bld) [#/Vol] 238 10*3/uL 150-450 [facility] Work Phone: Serum or plasma albumin kamlesh urement (mass/volume)on 06-11-2022 Albumin [Mass/Vol] 3.6 g/dL 3.2-5.0 [facility] Work Phone: Serum or plasma albumin/glob ulin mass ratioon 06-11-2022 Albumin/Globulin [Mass ratio] 1.0 {ratio} 0.9-2.4 [facility] Work Phone: Serum or plasma calcium kamlesh urement (mass/volume)on 06-11-2022 Calcium [Mass/Vol] 9.1 mg/dL 8.5-10.1 [facility] Work Phone: Serum or plasma creatinine m easurement (mass/volume)on 06-11-2022 Creatinine [Mass/Vol] 0.74 mg/dL 0.55-1.02 [facility] Work Phone: Comment on above: The validity of the calculated GFR & GFRAA in patients over 70 years has not been determined. Clinical correlation is essential. Serum or plasma urea nitroge n measurement (mass/volume)on 06-11-2022 Urea nitrogen [Mass/Vol] 11 mg/dL 7-18 [facility] Work Phone: Thin prep Papanicolaou smear with manual screeningon 06-11-2022 Thin prep Papanicolaou smear with manual screening 16 U/L 15-37 [facility] Work Phone: Thin prep Papanicolaou smear with manual screening 6 5-15 [facility] Work Phone: Absolute lymphocyte counton 04-23-2022 Lymphocytes Auto (Unsp spec) [#/Vol] 1.28 10*3/uL 0.83-4.51 [facility] Work Phone: Basophil percentageon 2021 Basophils/100 WBC (Bld) 0.9 % 0-1 [facility] Work Phone: Chloride [Moles/Vol] 108 mmol/L 98-107 [facility] Work Phone: Eosinophils/100 WBC (Bld) 1.9 % 0-5 [facility] Work Phone: Glucose [Mass/Vol] 147 mg/dL 74-106 [facility] Work Phone: Comment on above: Fasting Glucose resu lt greater than or equal to 126 mg/dL suggests DIABETES MELLITUS per A.D.A. criteria. Neutrophils (Bld) [#/Vol] 3.8 10*3/uL 2.0-7.7 [facility] Work Phone: Neutrophils/100 WBC (Bld) 65.5 % 47-70 [facility] Work Phone: Potassium [Moles/Vol] 3.9 mmol/L 3.5-5.1 [facility] Work Phone: Sodium [Moles/Vol] 141 mmol/L 136-145 [place] [facility] Work Phone: WBC (Bld) [#/Vol] 5.8 10*3/uL 4.4-11.0 [place] [facility] Work Phone: Blood erythrocytes count (nu mber/volume)on 04-23-2022 RBC (Bld) [#/Vol] 4.01 10*6/uL 4.2-5.4 [place] [facility] Work Phone: Blood hemoglobin measurement (mass/volume)on 04-23-2022 Hemoglobin (Bld) [Mass/Vol] 13.5 g/dL 12.0-15.0 [facility] Work Phone: Blood lymphocytes/100 leukoc yteson 04-23-2022 Lymphocytes/100 WBC (Bld) 22.0 % 19-41 [facility] Work Phone: Blood monocytes/100 leukocyt eson 04-23-2022 Monocytes/100 WBC (Bld) 9.5 % 0-10 [facility] Work Phone: Blood platelet mean volumeon 04-23-2022 Platelet mean volume (Bld) [Entitic vol] 10.3 fL 6.2-12.0 [facility] Work Phone: Determination of erythrocyte mean corpuscular volume (MCV)on 04-23-2022 MCV (RBC) [Entitic vol] 104.7 fL 81-99 [facility] Work Phone: Erythrocyte sedimentation ra mark 04-23-2022 ESR (Bld) [Velocity] 34 mm/h 0-30 [facility] Work Phone: Hematocrit Auto (Bld) [Volum e fraction]on 04-23-2022 Hematocrit (Bld) [Volume fraction] 42.0 % 37-47 [facility] Work Phone: Laboratory - Chemistry and C hemistry - challengeon 04-23-2022 CO2 [Moles/Vol] 29.0 mmol/L 21.0-32.0 [facility] Work Phone: Urea nitrogen/Creatinine [Mass ratio] 14.0 mg/mg 10-20 [facility] Work Phone: Laboratory - Hematology and Cell countson 04-23-2022 Erythrocyte distribution width (RBC) [Entitic vol] 51.4 fL 35.1-43.9 [facility] Work Phone: Erythrocyte distribution width (RBC) [Ratio] 13.2 % 11.6-14.6 [facility] Work Phone: Immature granulocytes/100 WBC (Bld) 0.200 % 0.0-0.9 [facility] Work Phone: Comment on above: IG% - Immature Granu locytes (promyelocytes, myelocytes and metamyelocytes) > 1% indicates that a LEFT SHIFT is Present. MCH (RBC) [Entitic mass] 33.7 pg 27.0-32.0 [facility] Work Phone: Nucleated RBC/100 WBC (Bld) [Ratio] 0 % 0-5 [facility] Work Phone: MCHC Auto (RBC) [Mass/Vol]on 04-23-2022 MCHC (RBC) [Mass/Vol] 32.1 g/dL 32-36 [facility] Work Phone: No Panel Informationon 04-23 Estimated GFR (MDRD) Amer 106 mL/min >60 [facility] Work Phone: Comment on above: GFR Calc Estimated GFR (MDRD) Non-Af Amer 88 mL/min >60 [facility] Work Phone: Comment on above: Non- GFR Calc Platelets bldon 04-23-2022 Platelets (Bld) [#/Vol] 272 10*3/uL 150-450 [facility] Work Phone: Serum or plasma C reactive p rotein measurement (mass/volume)on 04-23-2022 CRP [Mass/Vol] mg/L 0.0-3.0 [facility] Work Phone: Comment on above: C-Reactive Protein ( CRP) provides useful information for thediagnosis, therapy and monitoring of inflammatory processesand associated diseases. For the evaluation of Relative Riskfor Cardiovascular Disease, a High Sensitivity CRP (HSCRP)should be ordered. Serum or plasma calcium kamlesh urement (mass/volume)on 04-23-2022 Calcium [Mass/Vol] 8.9 mg/dL 8.5-10.1 [facility] Work Phone: Serum or plasma creatinine m easurement (mass/volume)on 04-23-2022 Creatinine [Mass/Vol] 0.71 mg/dL 0.55-1.02 [facility] Work Phone: Comment on above: The validity of the calculated GFR & GFRAA in patients over 70 years has not been determined. Clinical correlation is essential. Serum or plasma urea nitroge n measurement (mass/volume)on 04-23-2022 Urea nitrogen [Mass/Vol] 10 mg/dL 7-18 [facility] Work Phone: Thin prep Papanicolaou smear with manual screeningon 04-23-2022 Thin prep Papanicolaou smear with manual screening 4 5-15 [facility] Work Phone: Absolute lymphocyte counton 02-19-2022 Lymphocytes Auto (Unsp spec) [#/Vol] 1.26 10*3/uL 0.83-4.51 [facility] Work Phone: Basophil percentageon 2021 Basophils/100 WBC (Bld) 0.7 % 0-1 [facility] Work Phone: Eosinophils/100 WBC (Bld) 1.2 % 0-5 [facility] Work Phone: Neutrophils (Bld) [#/Vol] 4.1 10*3/uL 2.0-7.7 [facility] Work Phone: Neutrophils/100 WBC (Bld) 67.7 % 47-70 [facility] Work Phone: WBC (Bld) [#/Vol] 6.1 10*3/uL 4.4-11.0 [facility]: Blood erythrocytes count (nu mber/volume)on 02-19-2022 RBC (Bld) [#/Vol] 4.11 10*6/uL [facility].2[facility]5.[facility]: Blood hemoglobin measurement (mass/volume)on 02-19-2022 Hemoglobin (Bld) [Mass/Vol] 13.7 g/dL 12.0-15.0 [facility] Work Phone: Blood lymphocytes/100 leukoc yteson 02-19-2022 Lymphocytes/100 WBC (Bld) 20.8 % 19-41 [facility] Work Phone: Blood monocytes/100 leukocyt eson 02-19-2022 Monocytes/100 WBC (Bld) 9.4 % 0-10 [facility] Work Phone: Blood platelet mean volumeon 02-19-2022 Platelet mean volume (Bld) [Entitic vol] 10.0 fL 6.2-12.0 [facility] Work Phone: Determination of erythrocyte mean corpuscular volume (MCV)on 02-19-2022 MCV (RBC) [Entitic vol] 102.9 fL 81-99 [facility] Work Phone: Hematocrit Auto (Bld) [Volum e fraction]on 02-19-2022 Hematocrit (Bld) [Volume fraction] 42.3 % 37-47 [facility] Work Phone: Hemoglobin in reticulocytes (mass per reticulocyte)Ordered By: Dr. Ulloa on 02-19-2022 Hemoglobin (Reticulocytes) [Entitic mass] 36.3 pg 30-35 [facility] Iron measurement (mass/mass) on 02-19-2022 Iron (Unsp spec) [Mass/Mass] 31 ug/dL 50-170 [facility] Work Phone: Laboratory - Hematology and Cell countson 02-19-2022 Erythrocyte distribution width (RBC) [Entitic vol] 49.5 fL 35.1-43.9 [facility] Work Phone: Erythrocyte distribution width (RBC) [Ratio] 13.0 % 11.6-14.6 [facility] Work Phone: Immature granulocytes/100 WBC (Bld) 0.200 % 0.0-0.9 [facility] Work Phone: Comment on above: IG% - Immature Granu locytes (promyelocytes, myelocytes and metamyelocytes) > 1% indicates that a LEFT SHIFT is Present. MCH (RBC) [Entitic mass] 33.3 pg 27.0-32.0 [facility] Work Phone: Nucleated RBC/100 WBC (Bld) [Ratio] 0 % 0-5 [facility] Work Phone: MCHC Auto (RBC) [Mass/Vol]on 02-19-2022 MCHC (RBC) [Mass/Vol] 32.4 g/dL 32-36 [facility] Work Phone: No Panel InformationOrdered By: Dr. Ulloa on 02-19-2022 Immature Reticulocyte Fraction 18.80 % 3.00-15.90 [facility] Reticulocyte Count 1.83 % 0.5-1.5 [facility] No Panel Informationon 02-19 Total Iron Binding Capacity 366 ug/dL 250-450 [facility] Work Phone: Platelets bldon 02-19-2022 Platelets (Bld) [#/Vol] 246 10*3/uL 150-450 [facility] Work Phone: Serum or plasma ferritin ibrahima surement (mass/volume)on 02-19-2022 Ferritin [Mass/Vol] 28 ng/mL 8-252 [facility] Work Phone: Serum or plasma iron saturat ion measurement (mass fraction)on 02-19-2022 Iron saturation [Mass fraction] 8.5 % 15.0-55.0 [facility] Work Phone: Absolute lymphocyte counton 12-02-2021 Lymphocytes Auto (Unsp spec) [#/Vol] 1.37 10*3/uL 0.83-4.51 [facility] Work Phone: Basophil percentageon 2021 Basophils/100 WBC (Bld) 1.2 % 0-1 [facility] Work Phone: Bilirubin [Mass/Vol] 0.20 mg/dL 0.20-1.00 [facility] Work Phone: Comment on above: For patients on eltr ombopag therapy, use of Dimension [place] TBIL is not recommended. Chloride [Moles/Vol] 109 mmol/L 98-107 [facility] Work Phone: Eosinophils/100 WBC (Bld) 2.7 % 0-5 [facility] Work Phone: Glucose [Mass/Vol] 126 mg/dL 74-106 [facility] Work Phone: Comment on above: Fasting Glucose resu lt greater than or equal to 126 mg/dL suggests DIABETES MELLITUS per A.D.A. criteria. Neutrophils (Bld) [#/Vol] 3.6 10*3/uL 2.0-7.7 [facility] Work Phone: Neutrophils/100 WBC (Bld) 61.2 % 47-70 [facility] Work Phone: Potassium [Moles/Vol] 3.9 mmol/L 3.5-5.1 [facility] Work Phone: Protein [Mass/Vol] 6.6 g/dL 6.4-8.2 [facility] Work Phone: Sodium [Moles/Vol] 141 mmol/L 136-145 [facility] Work Phone: WBC (Bld) [#/Vol] 5.9 10*3/uL 4.4-11.0 [facility] Work Phone: Blood erythrocytes count (nu mber/volume)on 12-02-2021 RBC (Bld) [#/Vol] 3.63 10*6/uL 4.2-5.4 [facility] Work Phone: Blood hemoglobin measurement (mass/volume)on 12-02-2021 Hemoglobin (Bld) [Mass/Vol] 12.1 g/dL 12.0-15.0 [facility] Work Phone: Blood lymphocytes/100 leukoc yteson 12-02-2021 Lymphocytes/100 WBC (Bld) 23.1 % 19-41 [facility] Work Phone: Blood monocytes/100 leukocyt eson 12-02-2021 Monocytes/100 WBC (Bld) 11.5 % 0-10 [facility] Work Phone: Blood platelet mean volumeon 12-02-2021 Platelet mean volume (Bld) [Entitic vol] 10.2 fL 6.2-12.0 [facility] Work Phone: Determination of erythrocyte mean corpuscular volume (MCV)on 12-02-2021 MCV (RBC) [Entitic vol] 106.9 fL 81-99 [facility] Work Phone: Hematocrit Auto (Bld) [Volum e fraction]on 12-02-2021 Hematocrit (Bld) [Volume fraction] 38.8 % 37-47 [facility] Work Phone: Laboratory - Chemistry and C hemistry - challengeon 12-02-2021 ALP [Catalytic activity/Vol] 112 U/L 45-117 [facility] Work Phone: ALT [Catalytic activity/Vol] 24 U/L 13-56 [facility] Work Phone: CO2 [Moles/Vol] 28.0 mmol/L 21.0-32.0 [facility] Work Phone: Globulin (S) [Mass/Vol] 3.2 g/dL 2.2-4.2 [facility] Work Phone: Urea nitrogen/Creatinine [Mass ratio] 18.8 mg/mg 10-20 [facility] Work Phone: Laboratory - Hematology and Cell countson 12-02-2021 Erythrocyte distribution width (RBC) [Entitic vol] 50.8 fL 35.1-43.9 [facility] Work Phone: Erythrocyte distribution width (RBC) [Ratio] 12.8 % 11.6-14.6 [facility] Work Phone: Immature granulocytes/100 WBC (Bld) 0.300 % 0.0-0.9 [facility] Work Phone: Comment on above: IG% - Immature Granu locytes (promyelocytes, myelocytes and metamyelocytes) > 1% indicates that a LEFT SHIFT is Present. MCH (RBC) [Entitic mass] 33.3 pg 27.0-32.0 [facility] Work Phone: Nucleated RBC/100 WBC (Bld) [Ratio] 0 % 0-5 [facility] Work Phone: MCHC Auto (RBC) [Mass/Vol]on 12-02-2021 MCHC (RBC) [Mass/Vol] 31.2 g/dL 32-36 [facility] Work Phone: No Panel Informationon 12-02 Estimated GFR (MDRD) Amer 110 mL/min >60 [facility] Work Phone: Comment on above: GFR Calc Estimated GFR (MDRD) Non-Af Amer 91 mL/min >60 [facility] Work Phone: Comment on above: Non- GFR Calc Thyroid Stimulating Hormone (TSH) 3.07 uIU/mL 0.358-3.74 [facility] Work Phone: Platelets bldon 12-02-2021 Platelets (Bld) [#/Vol] 323 10*3/uL 150-450 [facility] Work Phone: Serum or plasma albumin kamlesh urement (mass/volume)on 12-02-2021 Albumin [Mass/Vol] 3.4 g/dL 3.2-5.0 [facility] Work Phone: Serum or plasma albumin/glob ulin mass ratioon 12-02-2021 Albumin/Globulin [Mass ratio] 1.1 {ratio} 0.9-2.4 [facility] Work Phone: Serum or plasma calcium kamlesh urement (mass/volume)on 12-02-2021 Calcium [Mass/Vol] 8.3 mg/dL 8.5-10.1 [facility] Work Phone: Serum or plasma creatinine m easurement (mass/volume)on 12-02-2021 Creatinine [Mass/Vol] 0.69 mg/dL 0.55-1.02 [facility] Work Phone: Comment on above: The validity of the calculated GFR & GFRAA in patients over 70 years has not been determined. Clinical correlation is essential. Serum or plasma urea nitroge n measurement (mass/volume)on 12-02-2021 Urea nitrogen [Mass/Vol] 13 mg/dL 7-18 [facility] Work Phone: Thin prep Papanicolaou smear with manual screeningon 12-02-2021 Thin prep Papanicolaou smear with manual screening 13 U/L 15-37 [facility] [facility] Work Phone: Thin prep Papanicolaou smear with manual screening 4 5-15 [facility] Work Phone: Absolute lymphocyte counton 11-06-2021 Lymphocytes Auto (Unsp spec) [#/Vol] 1.05 10*3/uL 0.83-4.51 [facility] Work Phone: Basophil percentageon 2021 Basophils/100 WBC (Bld) 0.8 % 0-1 [facility] Work Phone: Eosinophils/100 WBC (Bld) 1.7 % 0-5 [facility] Work Phone: Neutrophils (Bld) [#/Vol] 3.6 10*3/uL 2.0-7.7 [facility] Work Phone: Neutrophils/100 WBC (Bld) 68.7 % 47-70 [facility] Work Phone: WBC (Bld) [#/Vol] 5.2 10*3/uL 4.4-11.0 [facility]: Blood erythrocytes count (nu mber/volume)on 11-06-2021 RBC (Bld) [#/Vol] 3.36 10*6/uL 4.2-5.4 [facility] Work Phone: Blood hemoglobin measurement (mass/volume)on 11-06-2021 Hemoglobin (Bld) [Mass/Vol] 11.6 g/dL 12.0-15.0 [facility] Work Phone: Blood lymphocytes/100 leukoc yteson 11-06-2021 Lymphocytes/100 WBC (Bld) 20.0 % 19-41 [facility] Work Phone: Blood monocytes/100 leukocyt eson 11-06-2021 Monocytes/100 WBC (Bld) 8.4 % 0-10 [facility] Work Phone: Blood platelet mean volumeon 11-06-2021 Platelet mean volume (Bld) [Entitic vol] 9.8 fL 6.2-12.0 [facility] Work Phone: Determination of erythrocyte mean corpuscular volume (MCV)on 11-06-2021 MCV (RBC) [Entitic vol] 109.5 fL 81-99 [facility] Work Phone: Hematocrit Auto (Bld) [Volum e fraction]on 11-06-2021 Hematocrit (Bld) [Volume fraction] 36.8 % 37-47 [facility] Work Phone: Iron measurement (mass/mass) on 11-06-2021 Iron (Unsp spec) [Mass/Mass] 64 ug/dL 50-170 [facility] Work Phone: Laboratory - Hematology and Cell countson 11-06-2021 Erythrocyte distribution width (RBC) [Entitic vol] 57.4 fL 35.1-43.9 [facility] Work Phone: Erythrocyte distribution width (RBC) [Ratio] 14.2 % 11.6-14.6 [facility] Work Phone: Immature granulocytes/100 WBC (Bld) 0.400 % 0.0-0.9 [facility] Work Phone: Comment on above: IG% - Immature Granu locytes (promyelocytes, myelocytes and metamyelocytes) > 1% indicates that a LEFT SHIFT is Present. MCH (RBC) [Entitic mass] 34.5 pg 27.0-32.0 [facility] Work Phone: Nucleated RBC/100 WBC (Bld) [Ratio] 0 % 0-5 [facility] Work Phone: MCHC Auto (RBC) [Mass/Vol]on 11-06-2021 MCHC (RBC) [Mass/Vol] 31.5 g/dL 32-36 [facility] Work Phone: No Panel Informationon 11-06 Total Iron Binding Capacity 343 ug/dL 250-450 [facility] Work Phone: Platelets bldon 11-06-2021 Platelets (Bld) [#/Vol] 268 10*3/uL 150-450 [facility] Work Phone: Serum or plasma ferritin ibrahima surement (mass/volume)on 11-06-2021 Ferritin [Mass/Vol] 38 ng/mL 8-252 [facility] Work Phone: Serum or plasma iron saturat ion measurement (mass fraction)on 11-06-2021 Iron saturation [Mass fraction] 18.7 % 15.0-55.0 [facility] Work Phone: Basophil percentageon 2021 Bilirubin [Mass/Vol] 0.20 mg/dL 0.20-1.00 [facility] Comment on above: For patients on eltr ombopag therapy, use of Dimension [place] TBIL is not recommended. Chloride [Moles/Vol] 112 mmol/L High 98-107 [facility] Glucose [Mass/Vol] 101 mg/dL 74-106 [facility] Comment on above: Fasting Glucose resu lt from 100 to 125 mg/dL suggests IMPAIRED HOMEOSTASIS per A.D.A. criteria. Potassium [Moles/Vol] 4.0 mmol/L 3.5-5.1 [facility] Protein [Mass/Vol] 6.7 g/dL 6.4-8.2 [facility] Sodium [Moles/Vol] 142 mmol/L 136-145 [facility] [employer] mix RAST testo n 09-17-2021 Anion gap [Moles/Vol] 3 mmol/L Low 5-15 [facility] AST [Catalytic activity/Vol] 8 U/L Low 15-37 [facility] Laboratory - Chemistry and C hemistry - challengeon 09-17-2021 ALP [Catalytic activity/Vol] 97 U/L 45-117 [facility] ALT [Catalytic activity/Vol] 17 U/L 13-56 [facility] CO2 [Moles/Vol] 27.0 mmol/L 21.0-32.0 [facility] Globulin (S) [Mass/Vol] 3.4 g/dL 2.2-4.2 [facility] Urea nitrogen/Creatinine [Mass ratio] 20.1 mg/mg High 10-20 [facility] No Panel Informationon 09-17 Estimated Creatinine Clearance Calc 89.84 ml/min [facility] Estimated GFR (MDRD) Amer 130 mL/min >60 [facility] Comment on above: GFR Calc Estimated GFR (MDRD) Non-Af Amer 108 mL/min >60 [facility] Comment on above: Non- GFR Calc Thyroid Stimulating Hormone (TSH) 2.37 uIU/mL 0.358-3.74 [facility] Serum or plasma albumin kamlesh urement (mass/volume)on 09-17-2021 Albumin [Mass/Vol] 3.3 g/dL 3.2-5.0 [facility] Serum or plasma albumin/glob ulin mass ratioon 09-17-2021 Albumin/Globulin [Mass ratio] 1.0 {ratio} 0.9-2.4 [facility] Serum or plasma calcium kamlesh urement (mass/volume)on 09-17-2021 Calcium [Mass/Vol] 8.5 mg/dL 8.5-10.1 [facility] Serum or plasma creatinine m easurement (mass/volume)on 09-17-2021 Creatinine [Mass/Vol] 0.60 mg/dL 0.55-1.02 [facility] Comment on above: The validity of the calculated GFR & GFRAA in patients over 70 years has not been determined. Clinical correlation is essential. Serum or plasma urea nitroge n measurement (mass/volume)on 09-17-2021 Urea nitrogen [Mass/Vol] 12 mg/dL 7-18 [facility] Thin prep Papanicolaou smear with manual screeningon 09-17-2021 Thin prep Papanicolaou smear with manual screening 8 U/L 15-37 [facility] Thin prep Papanicolaou smear with manual screening 3 5-15 [facility] CNPNon 08-22-2021 CNPN Telephone (AKPRAD) ANGELES LARIOS ([id number]) 1960 F Date Time Provider Department 08/22/21 [...] type of procedure is only done at [facility]. Please ask her to call and make an appointment with either Dr. Ge Anderson or Dr. Rogelio Wu at [facility]. Phone number is [phone]. Debbie Vallecillo 08/22/2021 9:23 AM Signed Called the patient and relayed the message the patient acknowledged that she understood. A [email or web address] message was also sent to the patient. [...] asymptomatic, bilateral [I65.*09/06/2012 Embolus of femoral artery ([facility]) [I74.3] 06/25/2017 Coronary artery disease involving mentasta samano*06/27/2017 Essential hypertension [I10] 06/27/2017 Mixed hyperlipidemia [E78.2] 06/27/2017 Episode of recurrent major depressive disorder *05/10/2018 Acquired hypothyroidism [E03.9] 05/10/2018 GERD (gastroesophageal reflux disease) [K21.9] 05/10/2018 PVD (peripheral vascular disease) ([facility]) [I73.9] 05/10/2018 PATRICA (obstructive sleep apnea) [G47.33] [...] Encounter Status:Closed by DEBBIE VALLECILLO on 08/22/21 [facility] ANES POSTPROC EVALon 021 ANES POSTPROC EVAL HNO ID: [id number] Author: Manuel Solis MD Service: Anesthesiology Author Type: Physician Type: Anesthesia Postprocedure Evaluation Filed: 07/19/2021 12:21 PM Note Text: POST ANESTHESIA EVALUATION NOTE : 1960 Procedure Summary Date: 07/19/21 Room / Location: [facility] / [facility] Anesthesia Start: 938 Anesthesia Stop: 1038 Procedures: [...] July 19, 2021 TIME: 12:21 PM CSN: [id number] Normal [facility] ANES PRE-OPon 07-19-2021 ANES PRE-OP HNO ID: [id number] Author: Manuel Solis MD Service: Anesthesiology Author [...] asymptomatic, bilateral (+) Coronary artery disease involving mentasta coronary artery of mentasta heart without angina pectoris (+) Embolism and [...] July 19, 2021 TIME: 8:13 AM CSN: [id number] Normal [facility] HISTORY PHYSICALon HISTORY PHYSICAL HNO ID: [id number] Author: Nohelia Tee APRN.JENNIFER Service: Anesthesiology Author [...] On levothyroxine - Coronary artery disease involving mentasta coronary artery of mentasta heart without angina pectoris 06/27/2017 ASA, plavix - CVA (cerebral vascular accident) ([facility]) 06/2012 - Embolus of femoral artery ([facility]) 06/25/2017 on right - Episode of recurrent major depressive disorder ([facility]) 05/10/2018 Duloxetine,wellbutrin , varenicline - Essential hypertension [...] apnea) 05/10/2018 - PVD (peripheral vascular disease) ([facility]) 05/10/2018 - Snoring PAST SURGICAL HISTORY Procedure Laterality Date - APPENDECTOMY 1998 - COLONOSCOP W/ OR W/O BRSH SPEC 03/10/2021 - EGD W/O OR W/BRUSH/WASH 03/10/2021 - INSERT CATH,ART,PERCUT,SHORT TERM 10/13/2012 RIGHT - PAST SURGICAL HISTORY OF 2008 cardiac stents x 3 placed - PAST SURGICAL HISTORY OF 06/25/2017 [employer] embolectomy - THROMBOENDARTECTMY NECK,NECK INCIS 10/13/2012 LEFT [...] CVA no (more content not included)... Normal [facility] NURSING PROGon 07-19-2021 NURSING PROG HNO ID: [id number] Author: Maia Alves RN Service: Nursing Author [...] SB Capsule Endoscope (Olympus/Given) without difficulty. Lot#: [id number] Date of expiration: 09-11-2022 POST-PROCEDURE Post-capsule instructions reviewed and written information was provided to patient. Return to [facility] 07-22-21 SIGNATURE: Maia Alves RN PATIENT NAME: Angeles Larios DATE: July 19, 2021 TIME: 10:30 AM CONTACT #: [phone] [facility] NURSING PROG HNO ID: [id number] Author: Maia Alves RN Service: Nursing Author [...] at Endoscopy window on 3rd floor of childcare [facility] center. DIET: Do not eat or drink [...] cell phones, computers, remote TV appliances, microwaves, [employer] players and digital cameras. Because the equipment [...] by your nurse for equipment removal. Normal [facility] OPERATIVE NOon 07-19-2021 OPERATIVE NO HNO ID: [id number] Author: Leonard Urena MD Service: Gastroenterology Author Type: Physician Type: Operative Report Filed: 07/19/2021 10:43 AM Note Text: OPERATIVE/PROCEDURE REPORT LOG ID: [id number] Surgery/Procedure Date: 07/19/2021 Incision/Procedure Start Time: 9:45 AM Incision Close/Procedure End Time: 10:28 AM Surgeon(s)/Procedural ist(s) and Bridge Maintainer(s): Surgeon(s) and Role: * Leonard Urena MD [...] noted. ?She has had prior investigations at [facility]. At her last EGD, oozing Dieulafoy lesions [...] endoscopy. She would likely need referral to [facility] for consideration of antegrade double-balloon enteroscopy for further treatment of her AVMs. I/primary surgeon/proceduralist performed the entire procedure. Leonard Urena MD MPH FRCPC SIGNATURE: Leonard Urena MD MPH FRCPC PATIENT NAME: Angeles Larios DATE: July 19, 2021 TIME: 10:37 AM PAGER/CONTACT #: [phone] [facility] CNOVon 07-15-2021 CNOV Office Visit (VASSMN ) RICANGELES Carson ([id number]) 1960 F Date Time Provider Department 07/15/21 8:45 AM HANK BROWN During your visit today, we recorded the following information about you: Pulse Blood pressure 57/minute 95/54 Hank Brown MD 07/15/2021 9:06 AM Signed DATE: 02/18/2019.SURGEON: Hank Brown M.D. SURGER: Left carotid endarterectomy with bovine pericardial patch angioplasty and completion intraoperative duplex. ? DATE OF SURGERY: 06/25/2017 SURGEON: Celine Correa MD Acute [place] IIb right lower extremity ischemia. PROCEDURE: Right common femoral embolectomy. Here for f/u of carotid ASO and?Recurrent left internal carotid 90% stenosis. We did a redo left cea after insurance denied a stent in January 2019. She has also had a femoral embolectomy in the past. She remains on anticoagulation due to her prior embolic events. [facility] [place] DEPARTMENT OF VASCULAR SURGERY OUTPATIENT VISIT DATE [...] artery disease) - Coronary artery disease involving mentasta coronary artery of mentasta heart without angina pectoris 06/27/2017 ASA, plavix - CVA (cerebral vascular accident) ([facility]) 06/2012 - Embolus of femoral artery ([facility]) 06/25/2017 on right - Episode of recurrent major depressive disorder ([facility]) 05/10/2018 Duloxetine,wellbutrin , varenicline - Essential hypertension [...] apnea) 05/10/2018 - PVD (peripheral vascular disease) ([facility]) 05/10/2018 - Snoring PAST SURGICAL HISTORY Procedure Laterality Date - APPENDECTOMY 1998 - COLONOSCOP W/ OR W/O BRSH SPEC 03/10/2021 - EGD W/O OR W/BRUSH/WASH 03/10/2021 - INSERT CATH,ART,PERCUT,SHORT TERM 10/13/2012 RIGHT - PAST SURGICAL HISTORY OF 2008 cardiac stents x 3 placed - PAST SURGICAL HISTORY OF 06/25/2017 [employer] embolectomy - THROMBOENDARTECTMY NECK,NECK INCIS 10/13/2012 LEFT [...] cm. I (more content not included)... Normal [facility] Blood manual differential co mment interpretation (narrative result)on 07-10-2021 Manual differential comment Rey (Bld) [Interp] SCANNED [facility] Blood polychromasia detectio n by light microscopyon 07-10-2021 Polychromasia LM Ql (Bld) 1+ [facility] Laboratory - Hematology and Cell countson 07-10-2021 Anisocytosis Ql (Bld) 2+ [facility] Macrocytes detectionon 07-10 Macrocytes Ql (Bld) 1+ [facility] Thin prep Papanicolaou smear with manual screeningon 07-10-2021 Thin prep Papanicolaou smear with manual screening 1+ [facility] CNPNon 07-01-2021 CNPN Telephone (AGGASTACC ) ANGELES LARIOS ([id number]) 1960 F Date Time Provider Department 07/01/21 LEONARD URENA AGGASTACC During your visit today, we recorded the following information about you: Debbie Vallecillo 07/01/2021 11:42 AM Signed Surgery Checklist Type: EGD W/PUSH ENTERSCOPY Admission Type: outpatient Anesthesia: MAC Date: 07/19/21 Arrival Time: 08:15 am Surgery Time: 09:45 am Location: [facility] Prep mailed to patient. Debbie Vallecillo [...] (HCC) [I74.3] 06/25/2017 Coronary artery disease involving mentasta samano*06/27/2017 Essential hypertension [I10] 06/27/2017 Mixed hyperlipidemia [E78.2] 06/27/2017 Episode of recurrent major depressive disorder *05/10/2018 Acquired hypothyroidism [E03.9] 05/10/2018 GERD (gastroesophageal reflux disease) [K21.9] 05/10/2018 PVD (peripheral vascular disease) ([facility]) [I73.9] 05/10/2018 PATRICA (obstructive sleep apnea) [G47.33] 05/10/2018 Fibromyalgia [M79.7] 05/10/2018 Irritable bowel syndrome with both constipation*05/10/20 18 Diabetes mellitus ([facility]) [E11.9] 05/10/2018 Iron deficiency anemia [D50.9] 05/10/2018 HTN (hypertension) [I10] CVA (cerebral vascular accident) ([facility]) [I63.9] CAD (coronary artery disease) [I25.10] Obesity, Class III, BMI >= 40 [E66.01] 01/24/2019 Carotid stenosis [I65.29] 02/18/2019 Nicotine use disorder, F17.2 [F17.200] 02/20/2019 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 Murmur [R01.1] Encounter Status:Closed by DEBBIE VALLECILLO on 07/01/21 [facility] CNPN Telephone (AGGASTACC ) ANGELES LARIOS ([id number]) 1960 F Date Time Provider Department 07/01/21 [...] bleeding sites. Please arrange push enteroscopy at [facility]. Diagnosis, iron deficiency anemia Debbie [...] (HCC) [I74.3] 06/25/2017 Coronary artery disease involving mentasta samano*06/27/2017 Essential hypertension [I10] 06/27/2017 Mixed hyperlipidemia [E78.2] 06/27/2017 Episode of recurrent major depressive disorder *05/10/2018 Acquired hypothyroidism [E03.9] 05/10/2018 GERD (gastroesophageal reflux disease) [K21.9] 05/10/2018 PVD (peripheral vascular disease) ([facility]) [I73.9] 05/10/2018 PATRICA (obstructive sleep apnea) [G47.33] [...] Status:Closed by DEBBIE VALLECILLO on 07/01/[address] [facility] CBC and Differentialon 06-24 Abs Baso 0.07 k/uL Normal <0.11 [facility] Comment on above: Performed By: #### ESTRELLA HERNANDEZ FERR #### [facility] [employer] [address] [place], [place] [address] Abs [place] 0.57 k/uL Normal <0.87 [facility] Comment on above: Performed By: #### ESTRELLA HERNANDEZ FERR #### [facility] [employer] [address] [place] [address] Abs Neut 4.07 k/uL Normal 1.45-7.50 [facility] Comment on above: Performed By: #### Rosemary SMITH CBCDIF, FERR #### [place] [address] Absolute nRBC <0.01 Normal <0.01 [facility] Comment on above: Performed By: #### Rosemary SMITH, CBCDIF, FERR #### [place] [address] Basophils/100 WBC (Bld) 1.1 % Normal [facility] Comment on above: Performed By: #### Rosemary SMITH, CBCDIF, FERR #### [place] [address] DTYPE Auto Diff Normal [facility] Comment on above: Performed By: #### Rosemary SMITH CBCDIF, FERR #### [place] [address] Eosinophils (Bld) [#/Vol] 0.12 10*3/uL Normal <0.46 [facility] Comment on above: Performed By: #### Rosemary SMITH, CBCDIF, FERR #### [place] [address] Eosinophils/100 WBC (Bld) 1.9 % Normal [facility] Comment on above: Performed By: #### Rosemary SMITH, CBCDIF, FERR #### [place] [address] Erythrocyte distribution width (RBC) [Ratio] 17.7 % High 11.5-15.0 [facility] Comment on above: Performed By: #### Rosemary SMITH, CBCDIF, FERR #### [place] [address] Hematocrit (Bld) [Volume fraction] 33.3 % Low 36.0-46.0 [facility] Comment on above: Performed By: #### Rosemary SMITH, CBCDIF, FERR #### [place] [address] [place] [address] Hemoglobin (Bld) [Mass/Vol] 9.2 g/dL Low 11.5-15.5 [facility] Comment on above: Performed By: #### Rosemary SMITH, CBCDIF, FERR #### [place] [address] Lymphocytes (Bld) [#/Vol] 1.41 10*3/uL Normal 1.00-4.00 [facility] Comment on above: Performed By: #### Rosemary SMITH, CBCDIF, FERR #### [place] [address] Lymphocytes/100 WBC (Bld) 22.6 % Normal [facility] Comment on above: Performed By: #### Rosemary SMITH, CBCDIF, FERR #### [place] [address] MCH 28.9 pG Normal 26.0-34.0 [facility] Comment on above: Performed By: #### Rosemary SMITH, CBCDIF, FERR #### [place] [id number] MCHC (RBC) [Mass/Vol] 27.6 g/dL Low 30.5-36.0 [facility] Comment on above: Performed By: #### Rosemary SMITH, CBCDIF, FERR #### [place] [address] [place] [address] MCV (RBC) [Entitic vol] 104.7 fL High 80.0-100.0 [facility] Comment on above: Performed By: #### Rosemary SMITH, CBCDIF, FERR #### [place] [address] Monocytes/100 WBC (Bld) 9.1 % Normal [facility] Comment on above: Performed By: #### Rosemary SMITH, CBCDIF, FERR #### [place] [address] [place] [address] Neutrophils/100 WBC (Bld) 65.3 % Normal [facility] Comment on above: Performed By: #### Rosemary SMITH, CBCDIF, FERR #### [place] [address] NRBCs 0.0 /100 WBC Normal 0 [facility] Comment on above: Performed By: #### Rosemary SMITH CBCDIF, FERR #### [place] [address] Platelet mean volume (Bld) [Entitic vol] 11.3 fL Normal 9.0-12.7 [facility] Comment on above: Performed By: #### Rosemary SMITH CBCDIF, FERR #### [place] [address] Platelets (Bld) [#/Vol] 296 10*3/uL Normal 150-400 [facility] Comment on above: Performed By: #### Rosemary SMITH, CBCDIF, FERR #### [place] [address] RBC (Bld) [#/Vol] 3.18 10*6/uL Low 3.90-5.20 [facility] Comment on above: Performed By: #### Rosemary SMITH, CBCDIF, FERR #### [place] [address] WBC (Bld) [#/Vol] 6.24 10*3/uL Normal 3.70-11.00 [facility] Comment on above: Performed By: #### Rosemary SMITH, CBCDIF, FERR #### [place] [address] Ferritinon 06-24-2021 Ferritin [Mass/Vol] 91.7 ng/mL Normal 14.7-205.1 [facility] Comment on above: Performed By: #### I GIOVANNI, CBCDIF, FERR #### [facility] [address] [place], [place] [address] Iron and TIBCon 06-24-2021 Iron [Mass/Vol] 30 ug/dL Low 41-186 [facility] Comment on above: Performed By: #### I GIOVANNI, CBCDIF, FERR #### [facility] [address] [place] [address] TIBC 406 ug/dL High 232-386 [facility] Comment on above: Performed By: #### I GIOVANNI, CBCDIF, FERR #### [facility] [address] [place] [id number] Transferrin Saturatn 7 % Low 15-57 [facility] Comment on above: Performed By: #### I GIOVANNI, CBCDIF, FERR #### [facility] [employer] [address] [place] [id number] CNPMarcie 06-12-2021 MADELYN Telephone (WINNIE) ANGELES LARIOS ([id number]) 1960 F Date Time Provider Department 06/12/21 HANK BROWN During your visit today, we recorded the following information about you: Tete Couch Sec 06/12/2021 12:40 PM Signed Ms. Larios needs to reschedule her 06/17/[address] Brown at least 10 days out. Catherine Couch Design Supervisor Leonie Reagan [facility] 06/14/2021 10:39 AM Signed Angeles Larios appointments [...] (HCC) [I74.3] 06/25/2017 Coronary artery disease involving mentasta samano*06/27/2017 Essential hypertension [I10] 06/27/2017 Mixed hyperlipidemia [E78.2] 06/27/2017 Episode of recurrent major depressive disorder *05/10/2018 Acquired hypothyroidism [E03.9] 05/10/2018 GERD (gastroesophageal reflux disease) [K21.9] 05/10/2018 PVD (peripheral vascular disease) ([facility]) [I73.9] 05/10/2018 PATRICA (obstructive sleep apnea) [G47.33] [...] Status:Closed by TETE WASHINGTON on 06/12/21 Normal [facility] Laboratory - Chemistry and C hemistry - challengeon 05-07-2021 Cobalamin (Vitamin B12) [Mass/Vol] 238 pg/mL 211-911 [facility] Work Phone: Serum or plasma folate measu rement (mass/volume)on 05-07-2021 Folate [Mass/Vol] 13.90 ng/mL 3.1-55.4 [facility] ANES POSTPROC EVALon 021 ANES POSTPROC EVAL HNO ID: [id number] Author: Eliu Bernal MD Service: ? Author Type: Physician Type: Anesthesia Postprocedure Evaluation Filed: 05/07/2021 1:41 PM Note Text: POST ANESTHESIA EVALUATION NOTE : 1960 Procedure Summary Date: 05/06/21 Room / Location: [facility] 23 / [facility] ENDO Anesthesia Start: 1626 Anesthesia Stop: 1700 [...] May 07, 2021 TIME: 1:40 PM CSN: [id number] Normal [facility] ANES PRE-OPon 05-06-2021 ANES PRE-OP HNO ID: [id number] Author: Eliu Bernal MD Service: ? Author [...] asymptomatic, bilateral (+) Coronary artery disease involving mentasta coronary artery of mentasta heart without angina pectoris (+) Embolism and [...] by mouth (more content not included)... Normal [facility] HISTORY PHYSICALon HISTORY PHYSICAL HNO ID: [id number] Author: Lisseth Uribe APRN.STOCK ROLLER Service: Anesthesiology Author Type: Nurse Practitioner Type: HANDP Filed: 05/06/2021 3:32 PM Note Text: HISTORY AND PHYSICAL EXAMINATION SERVICE DATE: 05/06/2021 SERVICE TIME: 12:29 PM Angeles Larios [id number] PRIMARY CARE PHYSICIAN: Martin Gutierrez MD SURGEON: [...] GERD. She states she was hospitalized in [place] in 02/2021 for fatigue and lethargy. States [...] artery disease) - Coronary artery disease involving mentasta coronary artery of mentasta heart without angina pectoris 06/27/2017 ASA, plavix - CVA (cerebral vascular accident) ([facility]) 06/2012 - Embolus of femoral artery ([facility]) 06/25/2017 on right - Episode of recurrent major depressive disorder ([facility]) 05/10/2018 Duloxetine,wellbutrin , varenicline - Essential hypertension [...] apnea) 05/10/2018 - PVD (peripheral vascular disease) ([facility]) 05/10/2018 - Snoring PAST SURGICAL HISTORY Procedure Laterality Date - APPENDECTOMY 1998 - COLONOSCOP W/ OR W/O BRSH SPEC 03/10/2021 - EGD W/O OR W/BRUSH/WASH 03/10/2021 - INSERT CATH,ART,PERCUT,SHORT TERM 10/13/2012 RIGHT - PAST SURGICAL HISTORY OF 2008 cardiac stents x 3 placed - PAST SURGICAL HISTORY OF 06/25/2017 [employer]t [employer] embolectomy - THROMBOENDARTECTMY NECK,NECK INCIS 10/13/2012 LEFT [...] unexpected verenice (more content not included)... Normal [facility] NURSING PROGon 05-06-2021 NURSING PROG HNO ID: [id number] Author: Elvira Rojo RN Service: Nursing Author [...] may call the [facility] at [phone]. After business hours, please contact: Dr. Urena. RETURN/REMOVAL OF EQUIPMENT: Return to the procedure area as directed by your nurse for equipment removal. Nursing Progress Note Patient Name: Angeles Larios Patient [facility] Daily Note: This note was completed by: Elvira Ash [facility] NURSING PROG HNO ID: [id number] Author: Elvira Rojo RN Service: Nursing Author [...] SB Capsule Endoscope (Olympus/Given) without difficulty. Lot#: [id number] Date of expiration: 08/31/2022 POST-PROCEDURE Post-capsule instructions reviewed and written information was provided to patient. Patient will return equipment to [facility]. SIGNATURE: Elvira Rojo RN PATIENT NAME: Angeles Larios DATE: May 06, 2021 TIME: 6:08 PM CONTACT #: [phone] Nursing Progress Note Patient Name: Angeles Larios [place] [facility] Daily Note: This note was completed by: Elvira Rojo [facility] OPERATIVE NOon 05-06-2021 OPERATIVE NO HNO ID: [id number] Author: Leonard Urena MD Service: Gastroenterology Author Type: Physician Type: Operative Report Filed: 05/06/2021 5:16 PM Note Text: OPERATIVE/PROCEDURE REPORT LOG ID: [id number] Surgery/Procedure Date: 05/06/2021 Incision/Procedure Start Time: 4:34 PM Incision Close/Procedure End Time: 4:54 PM Surgeon(s)/Procedural ist(s) and Bridge Maintainer(s): Surgeon(s) and Role: * Leonard Urena MD [...] noted. She has had prior investigations at [facility]. The risks, benefits and alternatives of the [...] 06, 2021 TIME: 5:12 PM PAGER/CONTACT #: [phone] [facility] SURGICAL PATHOLOGYon [address] [facility] Comment on above: Order Comment: Speci men Type: TISSUE SPECIMEN Result Comment: Surg ica Pathology Report Case: [id number] Authorizing Provider: Leonard Urena MD Collected: 05/06/2021 04:45 PM Ordering Location: [facility] Received: 05/07/2021 08:49 AM Pathologist: Stephen Masters MD Specimens: A) - GASTRIC BIOPSY B) - DUODENUM BIOPSY C) - COLON BIOPSY, random Performed By: #### S #### [facility] CLIA [id number] [address] [place] [address] CLINICAL HISTORY Iron deficiency anemia Normal [facility] Comment on above: Order Comment: Speci men Type: TISSUE SPECIMEN Performed By: #### S #### [facility] CLIA [id number] [address] DIAGNOSIS COMMENT Sections of the duodenum revealed benign duodenal mucosa with mildly increased acute and chronic inflammatory cells predominantly within the lamina propria. Histologic features to suggest celiac disease are not present. Normal [facility] Comment on above: Order Comment: Speci men Type: TISSUE SPECIMEN Performed By: #### S #### [facility] CLIA [id number] [address] [place] [address] FINAL DIAGNOSIS Normal [facility] Comment on above: Order Comment: Speci men Type: TISSUE SPECIMEN Result Comment: A. S tomach, biopsy No pathologic abnormalities. B. Duodenum, biopsy Mild active duodenitis. See comment. C. Colon, random biopsies No pathologic abnormalities. Performed By: #### S #### [facility] CLIA [id number] [address] [place] [facility]FORM[facility] Normal [facility] Comment on above: Order Comment: Speci men Type: TISSUE SPECIMEN Result Comment: Diag nostic interpretation performed at [facility], [address] [place] [address] CLIA# [id number] Bluing Oven Tender: Stephen Masters M.D. Performed By: #### S #### [facility] CLIA [id number] [address] GROSS DESCRIPTION Normal [facility] Comment on above: Order Comment: [...] in cassette C1. Gross examination performed at [facility], [address] [place] [address] OLS May 07, 2021 12:31 PM Performed By: #### S #### [facility] CLIA [id number] [address] CBC W Auto Differential pane l (Bld)on 04-16-2021 Basophils (Bld) [#/Vol] 0.07 10*3/uL Normal <0.11 [facility] Comment on above: Order Comment: Speci men Type: BLOOD SPECIMEN Performed By: #### 5 7021-8 ####[facility]ORYCLIA [id number] [address] Basophils/100 WBC (Bld) 1.1 % Normal [place] Comment on above: Order Comment: Speci men Type: BLOOD SPECIMEN Performed By: #### 5 7021-8 ####[facility] [id number] [address] Differential cell count method Nom (Bld) Auto Normal [facility] Comment on above: Order Comment: Speci men Type: BLOOD SPECIMEN Performed By: #### 5 7021-8 ####[facility] [id number] [address] Eosinophils (Bld) [#/Vol] 0.10 10*3/uL Normal <0.46 [facility] Comment on above: Order Comment: Speci men Type: BLOOD SPECIMEN Performed By: #### 5 7021-8 ####[facility] [id number] [address] Eosinophils/100 WBC (Bld) 1.6 % Normal [facility] Comment on above: Order Comment: Speci men Type: BLOOD SPECIMEN Performed By: #### 5 7021-8 ####[facility]ORYCLIA [id number] [address] Erythrocyte distribution width (RBC) [Ratio] 13.9 % Normal 11.5-15.0 [facility] Comment on above: Order Comment: Speci men Type: BLOOD SPECIMEN Performed By: #### 5 7021-8 ####[facility]ORYCLIA [id number] [address] [facility] Hematocrit (Bld) [Volume fraction] 33.6 % Low 36.0-46.0 [facility] Comment on above: Order Comment: Speci men Type: BLOOD SPECIMEN Performed By: #### 5 7021-8 ####[facility] [id number] [address] Hemoglobin (Bld) [Mass/Vol] 9.4 g/dL Low 11.5-15.5 [facility] Comment on above: Order Comment: Speci men Type: BLOOD SPECIMEN Performed By: #### 5 7021-8 ####[facility]ORYCLIA [id number] [address] IMMATURE GRAN % 0.3 % Normal [facility] Comment on above: Order Comment: Speci men Type: BLOOD SPECIMEN Performed By: #### 5 7021-8 ####[facility]ORYCLIA [id number] [address] IMMATURE GRAN ABS <0.03 Normal <0.10 [facility] Comment on above: Order Comment: Speci men Type: BLOOD SPECIMEN Performed By: #### 5 7021-8 ####[facility]ORYCLIA [id number] [address] Lymphocytes (Bld) [#/Vol] 1.68 10*3/uL Normal 1.00-4.00 [facility] Comment on above: Order Comment: Speci men Type: BLOOD SPECIMEN Performed By: #### 5 7021-8 ####[facility]ORYCLIA [id number] [address] Lymphocytes/100 WBC (Bld) 27.6 % Normal [facility] Comment on above: Order Comment: Speci men Type: BLOOD SPECIMEN Performed By: #### 5 7021-8 ####[facility]ORYCLIA [id number] [address] MCH (RBC) [Entitic mass] 31.2 pg Normal 26.0-34.0 [facility] Comment on above: Order Comment: Speci men Type: BLOOD SPECIMEN Performed By: #### 5 7021-8 ####[facility]ORYCLIA [id number] [address] MCHC (RBC) [Mass/Vol] 28.0 g/dL Low 30.5-36.0 [facility] Comment on above: Order Comment: Speci men Type: BLOOD SPECIMEN Performed By: #### 5 7021-8 ####[facility]ORYCLIA [id number] [address] MCV (RBC) [Entitic vol] 111.6 fL High 80.0-100.0 [place] Comment on above: Order Comment: Speci men Type: BLOOD SPECIMEN Performed By: #### 5 7021-8 ####[facility]IA [id number] [address] Monocytes (Bld) [#/Vol] 0.56 10*3/uL Normal <0.87 [facility] Comment on above: Order Comment: Speci men Type: BLOOD SPECIMEN Performed By: #### 5 7021-8 ####[facility]ORYCLIA [id number] [address] Monocytes/100 WBC (Bld) 9.2 % Normal [place] Comment on above: Order Comment: Speci men Type: BLOOD SPECIMEN Performed By: #### 5 7021-8 ####[facility]ORYCLIA [id number] [address] Neutrophils (Bld) [#/Vol] 3.66 10*3/uL Normal 1.45-7.50 [facility] Comment on above: Order Comment: Speci men Type: BLOOD SPECIMEN Performed By: #### 5 7021-8 ####[facility]ORYCLIA [id number] [address] Neutrophils/100 WBC (Bld) 60.2 % Normal [facility] Comment on above: Order Comment: Speci men Type: BLOOD SPECIMEN Performed By: #### 5 7021-8 ####[facility]ORYCLIA [id number] [address] Nucleated RBC (Bld) [#/Vol] 10*3/uL Normal <0.01 [facility] Comment on above: Order Comment: Speci men Type: BLOOD SPECIMEN Performed By: #### 5 7021-8 ####[facility]ORYCLIA [id number] [address] OF [facility] Nucleated RBC/100 WBC (Bld) [Ratio] 0.0 /[address] [facility] Comment on above: Order Comment: Speci men Type: BLOOD SPECIMEN Performed By: #### 5 7021-8 ####[facility]ORYCLIA [id number] [address] Platelet mean volume (Bld) [Entitic vol] 10.3 fL Normal 9.0-12.7 [facility] Comment on above: Order Comment: Speci men Type: BLOOD SPECIMEN Performed By: #### 5 7021-8 ####[facility]ORYCLIA [id number] [address] Platelets (Bld) [#/Vol] 353 10*3/uL Normal 150-400 [facility] Comment on above: Order Comment: Speci men Type: BLOOD SPECIMEN Performed By: #### 5 7021-8 ####[facility]ORYCLIA [id number] [address] RBC (Bld) [#/Vol] 3.01 10*6/uL Low 3.90-5.20 [facility] Comment on above: Order Comment: Speci men Type: BLOOD SPECIMEN Performed By: #### 5 7021-8 ####[facility]ORYCLIA [id number] [address] WBC (Bld) [#/Vol] 6.09 10*3/uL Normal 3.70-11.00 [facility] Comment on above: Order Comment: Speci men Type: BLOOD SPECIMEN Performed By: #### 5 7021-8 ####[facility]ATORYCLIA [id number] [address] CNOVon 04-16-2021 CNOV Office Visit (AGGASTACC) ANGELES LARIOS ([id number]) 1960 F Date Time Provider Department 04/16/21 [...] pale stool. 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 Gutierrez. She has a history of anemia and has been on iron supplementation. She has fatigue and intermittent nausea. EGD in 03/10/[address] Charley De La Fuente in [place]: Normal Biopsies were not done Colonoscopy 03/10/2021 [...] artery disease) - Coronary artery disease involving mentasta coronary artery of mentasta heart without angina pectoris 06/27/2017 ASA, plavix - CVA (cerebral vascular accident) (HCC) 06/2012 - Embolus of femoral artery ([facility]) 06/25/2017 - Episode of recurrent major depressive disorder ([facility]) 05/10/2018 Duloxetine,wellbutrin , varenicline - Essential hypertension [...] apnea) 05/10/2018 - PVD (peripheral vascular disease) ([facility]) 05/10/2018 - Snoring PAST SURGICAL HISTORY Procedure Laterality Date - APPENDECTOMY 1998 - COLONOSCOP W/ OR W/O BRSH SPEC 03/10/2021 - EGD W/O OR W/BRUSH/WASH 03/10/2021 - INSERT CATH,ART,PERCUT,SHORT TERM 10/13/2012 RIGHT - PAST SURGICAL HISTORY OF 2008 cardiac stents x 3 placed - PAST SURGICAL HISTORY OF 06/25/2017 [employer] embolectomy - THROMBOENDARTECTMY NECK,NECK INCIS 10/13/2012 LEFT [...] Alcohol use: (more content not included)... Normal [facility] CNOV Office Visit (AGGENS3) ANGELES LARIOS ([id number]) 1960 F Date Time Provider Department 04/16/21 [...] artery disease) - Coronary artery disease involving mentasta coronary artery of mentasta heart without angina pectoris 06/27/2017 ASA, plavix - CVA (cerebral vascular accident) ([facility]) 06/2012 - Embolus of femoral artery ([facility]) 06/25/2017 - Episode of recurrent major depressive disorder ([facility]) 05/10/2018 Duloxetine,wellbutrin , varenicline - Essential hypertension [...] apnea) 05/10/2018 - PVD (peripheral vascular disease) ([facility]) 05/10/2018 - Snoring PAST SURGICAL HISTORY Procedure Laterality Date - APPENDECTOMY 1998 - COLONOSCOP W/ OR W/O BRSH SPEC 03/10/2021 - EGD W/O OR W/BRUSH/WASH 03/10/2021 - INSERT CATH,ART,PERCUT,SHORT TERM 10/13/2012 RIGHT - PAST SURGICAL HISTORY OF 2008 cardiac stents x 3 placed - PAST SURGICAL HISTORY OF 06/25/2017 [employer] embolectomy - THROMBOENDARTECTMY NECK,NECK INCIS 10/13/2012 LEFT [...] incontinence M (more content not included)... Normal [facility] Cici 04-16-2021 [facility] Telephone (AGGASTACC ) ANGELES LARIOS ([id number]) 1960 F Date Time Provider Department 04/16/21 RAZLEONARD PHIPPS During your visit today, we recorded the following information about you: Debbie Vallecillo 04/16/2021 1:31 PM Signed Surgery Checklist Type: COLONOSCOPY/EGD/CAPSU LE ENDOSCOPY Admission Type: outpatient Anesthesia: MAC Date: 04/05/21 Arrival Time: 12:45 PM Surgery Time: 02:15 PM Location: [facility] CASE# [id number] Prep given at appointment. Debbie Vallecillo Allergies [...] (HCC) [I74.3] 06/25/2017 Coronary artery disease involving mentasta samano*06/27/2017 Essential hypertension [I10] 06/27/2017 Mixed hyperlipidemia [E78.2] 06/27/2017 Episode of recurrent major depressive disorder *05/10/2018 Acquired hypothyroidism [E03.9] 05/10/2018 GERD (gastroesophageal reflux disease) [K21.9] 05/10/2018 PVD (peripheral vascular disease) ([facility]) [I73.9] 05/10/2018 PATRICA (obstructive sleep apnea) [G47.33] 05/10/2018 Fibromyalgia [M79.7] 05/10/2018 Irritable bowel syndrome with both constipation*05/10/20 18 Diabetes mellitus (HCC) [E11.9] 05/10/2018 Iron deficiency anemia [D50.9] 05/10/2018 HTN (hypertension) [I10] CVA (cerebral vascular accident) ([facility]) [I63.9] CAD (coronary artery disease) [I25.10] Obesity, Class III, BMI >= 40 [E66.01] 01/24/2019 Carotid stenosis [I65.29] 02/18/2019 Nicotine use disorder, F17.2 [F17.200] 02/20/2019 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 Encounter Status:Closed by DEBBIE VALLECILLO on 04/16/[address] [facility] CREATININE BLDon 04-16-2021 Creatinine [Mass/Vol] 0.77 mg/dL Normal 0.58-0.96 [facility] Comment on above: Order Comment: Speci men Type: BLOOD SPECIMEN Performed By: #### C RET1 #### [facility] CLIA [id number] [address] [place] [address] [place] GFR/1.73 sq M.predicted MDRD (S/P/Bld) [Vol rate/Area] mL/min/{1.73_m2} Normal [facility] Comment on above: Order [...] GFR. Performed By: #### C RET1 #### [facility] CLIA [id number] [address] [place] GLIADIN (DEAMIDATED) AB, IGA on 04-16-2021 Gliadin peptide IgA Qn (S) 11 Units Normal <20 [facility] Comment on above: Order [...] titer. Performed By: #### JERILYN BADILLO #### [facility] CLIA [id number] [address] [facility] [address] [place] OF [facility] GLIADIN (DEAMIDATED) AB, IGG on 04-16-2021 Gliadin peptide IgG Qn (S) 1 Units Normal <20 [facility] Comment on above: Order [...] titer. Performed By: #### JERILYN BADILLO #### [facility] CLIA [id number] [address] [place] [id number] [place] IGA BLDon 04-16-2021 IgA [Mass/Vol] 99 mg/dL Normal 70-400 [facility] Comment on above: Order Comment: Speci men Type: BLOOD SPECIMEN Performed By: #### I GA TGLGMA ####[facility] LABCLIA [id number] [facility]USK [address] [place] TRANSGLUTAMINASE ABSon 04-16 tTG IgA Qn (S) 5 Units Normal <20 [facility] Comment on above: Order Comment: Speci [...] titer. Performed By: #### I LEA BALL ####[facility] LABCLIA [id number] [place] [employer]K [address] tTG IgG Qn (S) 3 Units Normal <20 [facility] Comment on above: Order Comment: Speci [...] titer. Performed By: #### I LEA BALL ####[facility] LABCLIA [id number] [facility] [address] [place] TSH SerPl-aCncon 04-16-2021 TSH Qn 1.480 m[IU]/L Normal 0.270-4.200 [facility] Comment on above: Order Comment: Speci men Type: BLOOD SPECIMEN Performed By: #### 3 016-3 ####[facility]ORYCLIA [id number] [address] [place] CNPNon 01-07-2021 CNPN Telephone ([facility]) ANGELES LARIOS ([id number]) 1960 F Date Time Provider Department 01/07/21 JENNIFER CLEMONS During your visit today, we recorded the following information about you: Jennifer Clemons RN 01/07/2021 10:53 AM Signed Reason for call: Mr Larios called and she would like to schedule a follow up appointment with DR Brown Last seen 05/28/2020 looking for a mid morning appointment. Home and cell number [phone] Diagnosis Bobby carotid stenosis Kind Regards Jennifer [...] (HCC) [I74.3] 06/25/2017 Coronary artery disease involving mentasta samano*06/27/2017 Essential hypertension [I10] 06/27/2017 Mixed hyperlipidemia [E78.2] 06/27/2017 Episode of recurrent major depressive disorder *05/10/2018 Acquired hypothyroidism [E03.9] 05/10/2018 GERD (gastroesophageal reflux disease) [K21.9] 05/10/2018 PVD (peripheral vascular disease) ([facility]) [I73.9] 05/10/2018 PATRICA (obstructive sleep apnea) [G47.33] 05/10/2018 Fibromyalgia [M79.7] 05/10/2018 Irritable bowel syndrome with both constipation*05/10/20 18 Diabetes mellitus ([facility]) [E11.9] 05/10/2018 Iron deficiency anemia [D50.9] 05/10/2018 HTN (hypertension) [I10] CVA (cerebral vascular accident) ([facility]) [I63.9] CAD (coronary artery disease) [I25.10] Obesity, Class III, BMI >= 40 [E66.01] 01/24/2019 Carotid stenosis [I65.29] 02/18/2019 Nicotine use disorder, F17.2 [F17.200] 02/20/2019 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 Encounter Status:Closed by JENNIFER CLEMONS on 01/07/21 Normal [facility] Culture, urineon 05-27-2019 Bacteria identified Cx Nom (U) Escherichia coli [facility] Culture, urineon 05-24-2019 Bacteria identified Cx Nom (U) Escherichia coli Abnormal [facility] Erythrocyte distribution wid th standard deviationon 02-08-2019 Erythrocyte distribution width (RBC) [Entitic vol] 48.6 fL High 35.1-43.9 [facility] Laboratory - Hematology and Cell countson 02-08-2019 Erythrocyte distribution width (RBC) [Ratio] 13.3 % 11.6-14.6 [facility] Total cell counton 9 Cells counted Molgen (Bld/Tiss) [#] Not Reportable [facility] Hemoglobin in reticulocytes (mass per reticulocyte)on 03-25-2018 Hemoglobin (Reticulocytes) [Entitic mass] 34.8 pg 30-35 [facility] Work Phone: No Panel Informationon 03-25 Immature Platelet Fraction 3.3 % 1.0-7.9 [facility] Comment on above: Low PLT + Low IPF flores ggest a bone marrow production disorderLow PLT + high IPF suggests peripheral destruction(e.g.ITP, TTP, HIT, DIC, autoimmune) or bone marrow recoveryTrending of serial IPF measurements is recommended when evaluating for bone marrow responesValue above normal range indicates an increase in RBC cellular response from bone marrow. Immature Reticulocyte Fraction 11.40 % 3.00-15.90 [facility] Work Phone: Reticulocyte Count 1.86 % 0.5-1.5 [facility] Work Phone: Lab Report: BNP,B-Type NATRI URETIC PEPTIDEon 10-13-2017 Natriuretic peptide B (Bld) [Mass/Vol] 30.4 pg/mL Invalid Interpretation Code 0-100 [facility] Work Phone: Lab Report: Basic Metabolic Profile (BMP)on 10-13-2017 Anion gap [Moles/Vol] 6 mmol/L Invalid Interpretation Code 5-15 [facility] Work Phone: Calcium [Mass/Vol] 8.2 mg/dL Low 8.5-10.1 [facility] Work Phone: Chloride [Moles/Vol] 106 mmol/L Invalid Interpretation Code 98-107 [facility] Work Phone: CO2 (BldV) [Partial pressure] 27.0 mmol/L Invalid Interpretation Code 21.0-32.0 [facility] Work Phone: Creatinine [Mass/Vol] 0.72 mg/dL Invalid Interpretation Code 0.55-1.02 [facility] Work Phone: GFR/1.73 sq M.predicted among non-blacks MDRD (S/P/Bld) [Vol rate/Area] 88 mL/min/{1.73_m2} Invalid Interpretation Code >60 [facility] Work Phone: Glomerular Filtration rate 107 mL/min Invalid Interpretation Code >60 [facility] Work Phone: Glucose [Mass/Vol] 127 mg/dL High 74-106 [facility] Work Phone: Potassium [Moles/Vol] 3.9 mmol/L Invalid Interpretation Code 3.5-5.1 [facility] Work Phone: Sodium [Moles/Vol] 139 mmol/L Invalid Interpretation Code 136-145 [facility] Work Phone: Urea nitrogen [Mass/Vol] 13 mg/dL Invalid Interpretation Code 7-18 [facility] Work Phone: Urea nitrogen/Creatinine [Mass ratio] 18.9261915 mg/mg Invalid Interpretation Code 10-20 [facility] Work Phone: Clinical Lists Update: Prelo garnetter 07-14-2017 Left ventricular Ejection fraction 60 % Invalid Interpretation Code [facility] Work Phone: ACT CSLabon 07-07-2017 ACT CSLab 258 seconds High 89-153 [facility] Comment on above: Performed By: #### P T ####[place] [address] Activated PTTon 06-28-2017 aPTT 27.7 s Normal 22.0-34.0 [facility] Comment on above: Performed By: #### P T ####[place] [address] Protimeon 06-28-2017 INR Coag RelTime (PPP) 1.07 {INR} Normal [facility] Comment on above: Result Comment: Yannick dard Therapy 2.0-3.0High Dose 2.5-3.5 Performed By: #### P T ####[place] [address] Prothrombin time (PT) Coag time (PPP) 11.4 s Normal 9.3-11.9 [facility] Comment on above: Performed By: #### P T ####[address] [place] [address] Activated PTTon 06-27-2017 aPTT 75.2 s High 22.0-34.0 [facility] Comment on above: Performed By: #### P T ####[place] [address] aPTT 51.8 s High 22.0-34.0 [facility] Comment on above: Performed By: #### G FR ####[place] [address] Hemogramon 06-27-2017 Erythrocyte distribution width Auto Ratio (RBC) 16.1 % High 11.7-14.4 [facility] Comment on above: Performed By: #### G FR ####[place] [address] Erythrocytes (RBC) 3.43 mil/cmm Low 3.93-5.[address] [facility] Comment on above: Performed By: #### G FR ####[place] [address] Hematocrit (HCT) 29.4 % Low 34.1-44.9 [facility] Comment on above: Performed By: #### G FR ####[place] [address] Hemoglobin mass conc (Bld) 8.8 g/dL Low 11.2-15.7 [facility] Comment on above: Performed By: #### G FR ####[place] [address] MCH 25.7 pg Normal 25.6-32.2 [facility] Comment on above: Performed By: #### G FR ####[place] [address] MCHC mass conc (RBC) 29.9 % Low 31.6-34.[address] [facility] Comment on above: Performed By: #### G FR ####[place] [address] MCV 85.7 fL Normal 79.4-94.8 [facility] Comment on above: Performed By: #### G FR ####[facility] [place], [place] [address] Platelet mean volume (PMV) 10.3 fL Normal 9.4-12.3 [facility] Comment on above: Performed By: #### G FR ####[facility] [place] [address] Platelets 258 thou/cmm Normal 182-369 [facility] Comment on above: Performed By: #### G FR ####[place] [address] RDW SD 50.2 fl High 36.4-46.3 [facility] Comment on above: Performed By: #### G FR ####[place] [address] WBC (Leukocytes) 10.88 thou/cmm High 3.98-10.[address] [facility] Comment on above: Performed By: #### G FR ####[place] [address] Lipid Profileon 06-27-2017 Cholesterol to HDL Ratio 4.1 {ratio} Normal 1.8-5.3 [facility] Comment on above: Performed By: #### P T ####[place] [address] HDL Cholesterol 41 mg/dL Normal >40 [facility] Comment on above: Performed By: #### P T ####[place] [address] LDL Cholesterol 95 mg/dL Normal [facility] Comment on above: Result Comment: No C AD and with fewer than 2 CAD risk factors <160 mg/dlNo CAD but with 2 or more CAD risk factors <130 mg/dlDefinite CAD or other atherosclerotic disease <100 mg/dl Performed By: #### P T ####[place] [address] LDL to HDL Ratio 2.3 Normal 0.6-3.6 [facility] Comment on above: Result Comment: LDL, VLDL,LDL/HDL, Invalid if Triglyceride >400 Performed By: #### P T ####[place] [address] Cholesterol in VLDL mass conc 33 mg/dL Normal <50 Desired [facility] Comment on above: Performed By: #### P T ####[place] [id number] Triglyceride 166 mg/dL High 0-149 [facility] Comment on above: Result Comment: < 20 0 DesirableResult invalid if not a fasting specimen. Performed By: #### P T ####[place] [address] Cholesterol 169 mg/dL Normal 0-199 [facility] Comment on above: Result Comment: <200 [id number] Borderline>240 High Performed By: #### P T ####[place] [address] Protimeon 06-27-2017 INR Coag RelTime (PPP) 0.99 {INR} Normal [facility] Comment on above: Result Comment: Yannick dard Therapy 2.0-3.0High Dose 2.5-3.5 Performed By: #### G FR ####[place] [address] Prothrombin time (PT) Coag time (PPP) 10.7 s Normal 9.3-11.9 [facility] Comment on above: Performed By: #### G FR ####[place] [address] ARTERIAL UP/LOW/REST/MANUEVE Giovanni 06-26-2017 ARTERIAL UP/LOW/REST/MANUEVER Performed at [facility] APPROVED BY: STEPHANIE JOHN MD [...] suggestive of possible proximal aortoiliac disease. Normal [facility] Activated PTTon 06-26-2017 aPTT 62.4 s High 22.0-34.0 [facility] Comment on above: Performed By: #### G FR ####[facility] [place] [address] aPTT 69.5 s High 22.0-34.0 [facility] Comment on above: Performed By: #### G FR ####[facility] [place] [address] Basic Panelon 06-26-2017 Creatinine 0.63 mg/dL Normal 0.51-0.95 [facility] Comment on above: Performed By: #### G FR ####[facility] [place] [address] Anion gap 11 mmol/L Normal 8-16 [facility] Comment on above: Performed By: #### G FR ####[facility] [place] [address] CO2 26 mmol/L Normal 21-32 [facility] Comment on above: Performed By: #### G FR ####[facility] [place] [address] Urea nitrogen 14 mg/dL Normal 7-18 [facility] Comment on above: Performed By: #### G FR ####[facility] [place] [address] Calcium 8.1 mg/dL Low 8.5-10.1 [facility] Comment on above: Performed By: #### G FR ####[facility] [place] [address] Glucose mass conc 130 mg/dL High 70-99 [facility] Comment on above: Performed By: #### G FR ####[facility] [place] [address] Chloride 105 mmol/L Normal 98-107 [facility] Comment on above: Performed By: #### G FR ####[address] [address] Potassium molar conc 3.8 mmol/L Normal 3.5-5.[address] [facility] Comment on above: Performed By: #### G FR ####[place] [address] Sodium 138 mmol/L Normal 136-145 [facility] Comment on above: Performed By: #### G FR ####[address] [address] Hemogram/Diffon 06-26-2017 Basophils Auto #/vol (Bld) 0.04 thou/cmm Normal 0.01-0.08 [facility] Comment on above: Result Comment: Smea r scanned; tech agrees with automated differential Performed By: #### G FR ####[address] [address] Basophils/100 WBC Auto (Bld) 0.3 % Normal [facility] Comment on above: Performed By: #### G FR ####[address] [address] Eosinophils 0.01 thou/cmm Normal 0.00-0.31 [facility] Comment on above: Performed By: #### G FR ####[address] [address] Eosinophils/100 leukocytes 0.1 % Normal [facility] Comment on above: Performed By: #### G FR ####[address] [address] Immature Grans 0.50 % Normal [facility] Comment on above: Performed By: #### G FR ####[address] [address] Immature Grans # 0.07 thou/cmm High 0.00-0.05 [facility] Comment on above: Performed By: #### G FR ####[facility] [place], [place] [address] Lymphocytes 2.34 thou/cmm Normal 1.18-3.74 [facility] Comment on above: Performed By: #### G FR ####[facility] [place], [place] [address] Lymphocytes/100 leukocytes 15.8 % Normal [facility] Comment on above: Performed By: #### G FR ####[facility] [place], [place] [address] Monocytes 1.29 thou/cmm High 0.27-0.70 [facility] Comment on above: Performed By: #### G FR ####[facility] [place] [address] Monocytes/100 leukocytes 8.7 % Normal [facility] Comment on above: Performed By: #### G FR ####[address] [address] Seg Neutrophil 74.6 % Normal [facility] Comment on above: Performed By: #### G FR ####[place] [address] Seg. Neut.# 11.07 thou/cmm High 1.56-6.13 [facility] Comment on above: Performed By: #### G FR ####[place] [address] Erythrocyte distribution width Auto Ratio (RBC) 16.0 % High 11.7-14.4 [facility] Comment on above: Performed By: #### G FR ####[place] [address] Erythrocytes (RBC) 3.60 mil/cmm Low 3.93-5.[address] [facility] Comment on above: Performed By: #### G FR ####[place] [address] Hematocrit (HCT) 30.8 % Low 34.1-44.9 [facility] Comment on above: Performed By: #### G FR ####[place] [address] Hemoglobin mass conc (Bld) 9.5 g/dL Low 11.2-15.7 [facility] Comment on above: Performed By: #### G FR ####[facility] [place] [address] MCH 26.4 pg Normal 25.6-32.2 [facility] Comment on above: Performed By: #### G FR ####[facility] [place] [address] MCHC mass conc (RBC) 30.8 % Low 31.6-34.[address] [facility] Comment on above: Performed By: #### G FR ####[facility] [place] [address] MCV 85.6 fL Normal 79.4-94.8 [facility] Comment on above: Performed By: #### G FR ####[place] [address] Platelet mean volume (PMV) 10.5 fL Normal 9.4-12.3 [facility] Comment on above: Performed By: #### G FR ####[facility] [place] [address] Platelets 308 thou/cmm Normal 182-369 [facility] Comment on above: Performed By: #### G FR ####[place] [address] RDW SD 50.2 fl High 36.4-46.3 [facility] Comment on above: Performed By: #### G FR ####[place] [address] WBC (Leukocytes) 14.84 thou/cmm High 3.98-10.[address] [facility] Comment on above: Performed By: #### G FR ####[place] [id number] MDRD GFRon 06-26-2017 eGFR (non-black) mL/min/{1.73_m2} Normal >60mL/m in/1 .73m2 [facility] Comment on above: Result Comment: If t he patient is , multiply the result by 1.210. Performed By: #### G FR ####[facility] [place], [place] [address] Bear 06-25-2017 ACT 258 sec High 89-169 [facility] Comment on above: Performed By: #### A CT ####[facility] [place], [place] [address] Activated PTTon 06-25-2017 aPTT 117.9 s Critically high 22.0-34.0 [facility] Comment on above: Result Comment: RESU LT RECHECKED Performed By: #### G FR ####[place] [address] Basic Panelon 06-25-2017 Creatinine 0.59 mg/dL Normal 0.51-0.95 [facility] Comment on above: Performed By: #### P 8 ####[place] [address] Anion gap 9 mmol/L Normal 8-16 [facility] Comment on above: Performed By: #### P 8 ####[place] [address] CO2 24 mmol/L Normal 21-32 [facility] Comment on above: Performed By: #### P 8 ####[place] [address] Glucose mass conc 162 mg/dL High 70-99 [facility] Comment on above: Performed By: #### P 8 ####[place] [address] Urea nitrogen 12 mg/dL Normal 7-18 [facility] Comment on above: Performed By: #### P 8 ####[address] [address] Calcium 7.8 mg/dL Low 8.5-10.1 [facility] Comment on above: Performed By: #### P 8 ####[place] [address] Chloride 107 mmol/L Normal 98-107 [facility] Comment on above: Performed By: #### P 8 ####[address], [place] [address] Potassium molar conc 3.7 mmol/L Normal 3.5-5.[address] [facility] Comment on above: Performed By: #### P 8 ####[facility] [place], [place] [address] Sodium 136 mmol/L Normal 136-145 [facility] Comment on above: Performed By: #### P 8 ####[facility] [place], [place] [address] Creatinine 0.65 mg/dL Normal 0.51-0.95 [facility] Comment on above: Performed By: #### P 8 ####[facility] [place], [place] [address] Anion gap 11 mmol/L Normal 8-16 [facility] Comment on above: Performed By: #### P 8 ####[address] [address] CO2 23 mmol/L Normal 21-32 [facility] Comment on above: Performed By: #### P 8 ####[address] [address] Glucose mass conc 165 mg/dL High 70-99 [facility] Comment on above: Performed By: #### P 8 ####[address] [address] Urea nitrogen 14 mg/dL Normal 7-18 [facility] Comment on above: Performed By: #### P 8 ####[facility] [place], [place] [address] Calcium 8.4 mg/dL Low 8.5-10.1 [facility] Comment on above: Performed By: #### P 8 ####[facility] [place], [place] [address] Chloride 108 mmol/L High 98-107 [facility] Comment on above: Performed By: #### P 8 ####[facility] [place], [place] [address] Potassium molar conc 3.7 mmol/L Normal 3.5-5.[address] [facility] Comment on above: Performed By: #### P 8 ####[facility] [place] [address] Sodium 138 mmol/L Normal 136-145 [facility] Comment on above: Performed By: #### P 8 ####[place] [address] Hemogramon 06-25-2017 Erythrocyte distribution width Auto Ratio (RBC) 16.0 % High 11.7-14.4 [facility] Comment on above: Performed By: #### C BC1 ####[place] [address] Erythrocytes (RBC) 4.01 mil/cmm Normal 3.93-5.[address] [facility] Comment on above: Performed By: #### C BC1 ####[place] [address] Hematocrit (HCT) 34.3 % Normal 34.1-44.9 [facility] Comment on above: Performed By: #### C BC1 ####[place] [address] Hemoglobin mass conc (Bld) 10.5 g/dL Low 11.2-15.7 [facility] Comment on above: Performed By: #### C BC1 ####[place] [address] MCH 26.2 pg Normal 25.6-32.2 [facility] Comment on above: Performed By: #### C BC1 ####[place] [address] MCHC mass conc (RBC) 30.6 % Low 31.6-34.[address] [facility] Comment on above: Performed By: #### C BC1 ####[place] [address] MCV 85.5 fL Normal 79.4-94.8 [facility] Comment on above: Performed By: #### C BC1 ####[place] [address] Platelet mean volume (PMV) 10.2 fL Normal 9.4-12.3 [facility] Comment on above: Performed By: #### C BC1 ####[facility] [place], [place] [address] Platelets 277 thou/cmm Normal 182-369 [facility] Comment on above: Performed By: #### C BC1 ####[facility] [place], [place] [address] RDW SD 50.1 fl High 36.4-46.3 [facility] Comment on above: Performed By: #### C BC1 ####[place] [address] WBC (Leukocytes) 12.16 thou/cmm High 3.98-10.[address] [facility] Comment on above: Performed By: #### C BC1 ####[place] [address] Erythrocyte distribution width Auto Ratio (RBC) 16.1 % High 11.7-14.4 [facility] Comment on above: Performed By: #### C BC1 ####[place] [address] Erythrocytes (RBC) 3.92 mil/cmm Low 3.93-5.[address] [facility] Comment on above: Performed By: #### C BC1 ####[place] [address] Hematocrit (HCT) 33.5 % Low 34.1-44.9 [facility] Comment on above: Performed By: #### C BC1 ####[place] [address] Hemoglobin mass conc (Bld) 10.2 g/dL Low 11.2-15.7 [facility] Comment on above: Performed By: #### C BC1 ####[place] [address] MCH 26.0 pg Normal 25.6-32.2 [facility] Comment on above: Performed By: #### C BC1 ####[place] [address] MCHC mass conc (RBC) 30.4 % Low 31.6-34.[address] [facility] Comment on above: Performed By: #### C BC1 ####[facility] [place], [place] [address] MCV 85.5 fL Normal 79.4-94.8 [facility] Comment on above: Performed By: #### C BC1 ####[address] [address] Platelet mean volume (PMV) 10.0 fL Normal 9.4-12.3 [facility] Comment on above: Performed By: #### C BC1 ####[address] [address] Platelets 246 thou/cmm Normal 182-369 [facility] Comment on above: Performed By: #### C BC1 ####[address] [address] RDW SD 50.2 fl High 36.4-46.3 [facility] Comment on above: Performed By: #### C BC1 ####[place] [id number] WBC (Leukocytes) 9.67 thou/cmm Normal 3.98-10.04 [facility] Comment on above: Performed By: #### C BC1 ####[place] [id number] Lactic Acidon 06-25-2017 Lactate 1.8 mmol/L Normal 0.4-2.0 [facility] Comment on above: Performed By: #### L AC ####[place] [id number] MDRD GFRon 06-25-2017 eGFR (non-black) mL/min/{1.73_m2} Normal >60mL/m in/1 .73m2 [facility] Comment on above: Result Comment: If t he patient is , multiply the result by 1.210. Performed By: #### G FR ####[address] [address] eGFR (non-black) mL/min/{1.73_m2} Normal >60mL/m in/1 .73m2 [facility] Comment on above: Result Comment: If t he patient is , multiply the result by 1.210. Performed By: #### G FR ####[place] [address] Protimeon 06-25-2017 INR Coag RelTime (PPP) 0.99 {INR} Normal [facility] Comment on above: Result Comment: Yannick dard Therapy 2.0-3.0High Dose 2.5-3.5 Performed By: #### G FR ####[place] [address] Prothrombin time (PT) Coag time (PPP) 10.7 s Normal 9.3-11.9 [facility] Comment on above: Performed By: #### G FR ####[place] [address] INR Coag RelTime (PPP) 0.98 {INR} Normal [facility] Comment on above: Result Comment: Yannick dard Therapy 2.0-3.0High Dose 2.5-3.5 Performed By: #### P T ####[place] [address] Prothrombin time (PT) Coag time (PPP) 10.6 s Normal 9.3-11.9 [facility] Comment on above: Performed By: #### P T ####[place] [address] Surgical Tissue Examon 06-25 Surgical Tissue Exam Test performed at [place] [address]NAME: ANGELES LARIOS [id number] REQUESTING: CELINE CORREA M.D.FINAL DIAGNOSIS:RIGHT FEMORAL EMBOLECTOMY [...] 16:29PRINTED: 06/29/2017 Page 1 of 1 Normal [facility] Comment on above: Performed By: #### P T ####[facility] [place] [address] Type and Screenon 06-25-2017 ABO group O Normal [facility] Comment on above: Performed By: #### T &S ####[facility] [place] [address] Antibody Screen Negative Normal [facility] Comment on above: Performed By: #### T &S ####[facility] [place] [address] Comment Emergency Room Normal [facility] Comment on above: Performed By: #### T &S ####[facility] [place] [address] RH Type Positive Normal [facility] Comment on above: Performed By: #### T &S ####[place] [address] Office Visiton 01-15-2017 Documentation of current medications (procedure) Done Invalid Interpretation Code [employer] [facility] Work Phone: Fall risk assessment No Invalid Interpretation Code [employer] Work Phone: Clinical Lists Update: Pre01-14-2017 Left ventricular Ejection fraction 70 % Invalid Interpretation Code [facility] Work Phone: Clinical Lists Update: Prelo garnetter 12-30-2016 Albumin [Mass/Vol] 3.6 g/dL Invalid Interpretation Code [facility] Work Phone: Albumin/Globulin [Mass ratio] 1.1 {ratio} Invalid Interpretation Code [employer] Work Phone: Anion gap 7 mmol/L Invalid Interpretation Code [facility] Work Phone: Anion gap [Moles/Vol] 7 mmol/L Invalid Interpretation Code [facility] Work Phone: AST [Catalytic activity/Vol] 13 U/L Low [employer] Work Phone: Bilirubin [Mass/Vol] 0.20 mg/dL Invalid Interpretation Code [employer] Work Phone: Calcium [Mass/Vol] 8.6 mg/dL Invalid Interpretation Code [employer] Work Phone: Chloride [Moles/Vol] 106 mmol/L Invalid Interpretation Code [employer] Work Phone: CO2 27.0 mmol/L Invalid Interpretation Code [employer] Work Phone: CO2 (BldV) [Partial pressure] 27.0 mmol/L Invalid Interpretation Code [employer] Work Phone: Creatinine [Mass/Vol] 0.86 mg/dL Invalid Interpretation Code [employer] Work Phone: Erythrocyte distribution width (RBC) [Ratio] 12.9 % Invalid Interpretation Code [employer] Work Phone: Erythrocyte distribution width Auto Ratio (RBC) 12.9 % Invalid Interpretation Code [employer] Work Phone: Erythrocytes (RBC) 4.52 10*6/uL Invalid Interpretation Code [employer] Work Phone: Globulin 3.4 g/dL Invalid Interpretation Code [employer] Work Phone: globulin, serum 3.4 Invalid Interpretation Code [employer] Work Phone: Glucose [Mass/Vol] 109 mg/dL Invalid Interpretation Code [employer] Work Phone: Hematocrit (Bld) [Volume fraction] 44.7 % Invalid Interpretation Code [employer] Work Phone: Hematocrit (HCT) 44.7 % Invalid Interpretation Code [employer] Work Phone: Hemoglobin (Bld) [Mass/Vol] 14.3 g/dL Invalid Interpretation Code [employer] Work Phone: MCH 31.6 pg Invalid Interpretation Code [employer] Work Phone: MCH (RBC) [Entitic mass] 31.6 pg Invalid Interpretation Code [employer] Work Phone: MCHC (RBC) [Mass/Vol] 32.0 g/dL Invalid Interpretation Code [employer] Work Phone: MCHC mass conc (RBC) 32.0 g/dL Invalid Interpretation Code [employer] Work Phone: MCV 98.9 fL Invalid Interpretation Code [employer] Work Phone: MCV (RBC) [Entitic vol] 98.9 fL Invalid Interpretation Code [employer] Work Phone: Platelet mean volume (Bld) [Entitic vol] 10.4 fL Invalid Interpretation Code [employer] Work Phone: Platelets 267 10*3/mm3 Invalid Interpretation Code [employer] Work Phone: Platelets (Bld) [#/Vol] 267 10*3/uL Invalid Interpretation Code [employer] Work Phone: PMV by Roxane 10.4 fL Invalid Interpretation Code [employer] Work Phone: Potassium [Moles/Vol] 4.3 mmol/L Invalid Interpretation Code [employer] Work Phone: Protein [Mass/Vol] 7.0 g/dL Invalid Interpretation Code [employer] Work Phone: RBC (Bld) [#/Vol] 4.52 10*6/uL Invalid Interpretation Code [employer] Work Phone: Sodium [Moles/Vol] 140 mmol/L Invalid Interpretation Code [employer] Work Phone: Thyroid stimulating hormone (TSH) 1.81 u[iU]/mL Invalid Interpretation Code [employer] Work Phone: TSH Qn 1.81 m[IU]/L Invalid Interpretation Code [employer] Work Phone: Urea nitrogen [Mass/Vol] 15 mg/dL Invalid Interpretation Code [employer] Work Phone: Urea nitrogen/Creatinine [Mass ratio] 17.4 mg/mg Invalid Interpretation Code [employer] Work Phone: WBC (Bld) [#/Vol] 6.4 10*3/uL Invalid Interpretation Code [facility] Work Phone: WBC (Leukocytes) 6.4 10*3/uL Invalid Interpretation Code [facility] Work Phone: Office Visiton 12-30-2016 Dietary management education, guidance, and counseling (procedure) yes Invalid Interpretation Code [facility] Work Phone: Smoking cessation education (procedure) yes Invalid Interpretation Code [facility] Work Phone: Tobacco smoking status Tobacco smoking status NHIS Invalid Interpretation Code [facility] Work Phone: Tobacco use status [facility] Current every da y smoker Invalid Interpretation Code [facility] Work Phone: Lab Report: Vitamin D 1,25-D ihydroxyon 09-03-2016 vitamin D 1,25-dihydroxy, serum 39.3 Invalid Interpretation Code 19.9-79.3 [facility] Work Phone: VITD 1,25 [id number] 39.3 Invalid Interpretation Code 19.9-79.3 [facility] Work Phone: Lab Report: PTH,INTACTon Parathyrin.intact [Mass/Vol] 65 pg/mL Invalid Interpretation Code 14-72 [facility] Work Phone: Lab Report: Alkaline Phospha taseon 08-30-2016 Alkaline phosphatase (ALP) 105 U/L Invalid Interpretation Code 45-117 [facility] Work Phone: ALP (Bld) [Catalytic activity/Vol] 105 U/L Invalid Interpretation Code 45-117 [facility] Work Phone: Lab Report: Calcium,Totalon 08-30-2016 Calcium [Mass/Vol] 9.0 mg/dL Invalid Interpretation Code 8.5-10.1 [facility] Work Phone: Replaced Document: Bonifacio DAWN Observationson 07-15-2016 EKG QRS axis 27 deg Invalid Interpretation Code [facility] Work Phone: electrocardiogram interpretation Marked sinus Bradycardia BORDERLINE RHYTHM Invalid Interpretation Code [facility] Orthopaedics Work Phone: GE use only - for LinkLogic import when terms are not otherwise specified 401 ms Invalid Interpretation Code [facility] Work Phone: Heart rate 48 /min Invalid Interpretation Code [facility] Work Phone: Interpretation Marked sinus Bradycardia BORDERLINE RHYTHM Invalid Interpretation Code [facility] Work Phone: P [place] 51 deg Invalid Interpretation Code [facility] Work Phone: P wave axis, electrocardiogram 51 deg Invalid Interpretation Code [facility] Work Phone: [place] Interval 170 ms Invalid Interpretation Code [facility] Work Phone: [place] interval, electrocardiogram 170 ms Invalid Interpretation Code [facility] Work Phone: QRS axis, electrocardiogram 27 deg Invalid Interpretation Code [facility] Work Phone: QRS Duration 106 ms Invalid Interpretation Code [facility] Work Phone: QRS duration, electrocardiogram 106 ms Invalid Interpretation Code [facility] Work Phone: QT Interval new path ms Invalid Interpretation Code [facility] Work Phone: QT interval, electrocardiogram new path ms Invalid Interpretation Code [facility] Work Phone: QTc Singh 401 ms Invalid Interpretation Code [facility] Work Phone: T [place] 43 deg Invalid Interpretation Code [facility] Work Phone: T wave axis, electrocardiogram 43 deg Invalid Interpretation Code [facility] Work Phone: Chart Maintenanceon 11-29-19 16 Left ventricular Ejection fraction 70 % Invalid Interpretation Code [facility] Work Phone: Hemoglobin Glyclated (HGB A1 C) ([id number])Ordered By: Membership Director on 08-30-2015 HbA1c (Bld) [Mass fraction] 5.6 % Normal 4.8-5.6 [facility] Work Phone: Comment on above: . Pre-diabetes: 5.7 - 6.4 Diabetes: >6.4 Glycemic control for adults with diabetes: <7.0 PATIENT NOT FASTINGP ERFORMED BY: [facility] Sxfwtg1035 [facility] [id number] Information: [id number] HPV automatic ([id number])Ordered By: Membership Director on 07-26-2015 HPV 16+18+31+33+35+39+45+51 +52+56+58+59+68 DNA Probe+sig amp Ql (Cvx) Negative Normal Comprehen [facility]; [facility] Work Phone: Comment on above: This high-risk HPV t est detects thirteen high-risk types(16/18/31/33/35/39/45/51/52/56/58/59/68) without differentiation. . Source.............C ervical;EndocervicalNo. of containers..01 CYTYC Thin Prep VialPATIENT NOT FASTINGPERFORMED BY: LabPlusFourSixrDatometryRiverton Hospital [id number] BY: =G LabDeck Works.co [facility] CenterSkemazRiverton Hospital [id number] Information: [id number] Microscopic observation Other stain Nom (Unsp spec) . Normal [facility]; [facility] Work Phone: Comment on above: Source.............C ervical;EndocervicalNo. of containers..01 CYTYC Thin Prep VialPATIENT NOT FASTINGPERFORMED BY: Ambition, IncrDatometryRiverton Hospital [id number] BY: =G LabPlusFourSixrDatometryRiverton Hospital [id number] Information: [id number] Pathology report final diagnosis Narrative SPRCS Normal Comprehensiv e Internal Medicine; [facility] Work Phone: Comment on above: NEGATIVE FOR INTRAEP ITHELIAL LESION AND MALIGNANCY.Satisfactory for evaluation. Endocervical and/or squamous metaplasticcells (endocervical component) are present.Jennifer Middleton, [employer] ([facility]) Source.............C ervical;EndocervicalNo. of containers..01 CYTYC Thin Prep VialPATIENT NOT FASTINGPERFORMED BY: WB LabSuperDerivatives120 Moka5.comrDatometryton [place] [id number] BY: =G LabCoZhaopin120 [place] PlazaGemvararl[place] [id number] Information: [id number] HPV automatic ([id number]) PAPSMR Normal Com prehensive Internal Medicine; Comprehensive [...] Prep VialPATIENT NOT FASTINGPERFORMED BY: WB [facility] Ziskinwfgc998 [address] PlazaGemvararleston [place] [id number] BY: =G [facility] Laoesvzchs725 [address] PlazaCharleston [place] [id number] Information: [id number] Lab Report: AFP, Tumor Malika smith 07-05-2015 AFP TUMOR 2253 3.3 ng/mL Invalid Interpretation Code 0.0-8.3 [facility] Work Phone: alpha-1 fetoprotein tumor marker, serum/plasma 3.3 ng/mL Invalid Interpretation Code 0.0-8.3 [facility] Work Phone: Lab Report: Bilirubin, Direc ton 07-04-2015 Bilirubin.direct [Mass/Vol] 0.06 mg/dL Invalid Interpretation Code 0.00-0.30 [facility] Work Phone: Lab Report: CBC W/Diff, Auto matedon 07-04-2015 Absolute Neut 3.8 X10 3/UL Invalid Interpretation Code 2.0-7.7 [facility] Work Phone: Basophils/100 WBC (Bld) 1.3 % High 0-1 [facility] Work Phone: Basophils/100 WBC Auto (Bld) 1.3 % High 0-1 [facility] Work Phone: Eosinophils/100 leukocytes 2.2 % Invalid Interpretation Code 0-5 [facility] Work Phone: Eosinophils/100 WBC (Bld) 2.2 % Invalid Interpretation Code 0-5 [facility] Work Phone: Erythrocyte distribution width (RBC) [Ratio] 13.1 % Invalid Interpretation Code 11.6-14.6 [facility] Work Phone: Hematocrit (Bld) [Volume fraction] 45.3 % Invalid Interpretation Code 37-47 [facility] Work Phone: Hemoglobin (Bld) [Mass/Vol] 15.1 g/dL High 12.0-15.0 [facility] Work Phone: Immature granulocytes/100 WBC (Bld) 0.100 % Invalid Interpretation Code 0.0-0.9 [facility] Work Phone: Lymphocytes 3.06 X10 3/UL Invalid Interpretation Code 0.83-4.51 [facility] Work Phone: Lymphocytes (Bld) [#/Vol] 3.06 X10 3/UL Invalid Interpretation Code 0.83-4.51 [facility] Work Phone: Lymphocytes/100 leukocytes 39.6 % Invalid Interpretation Code 19-41 [facility] Work Phone: Lymphocytes/100 WBC (Bld) 39.6 % Invalid Interpretation Code 19-41 [facility] Work Phone: MCH (RBC) [Entitic mass] 33.8 pg High 27.0-32.0 [facility] Work Phone: MCV (RBC) [Entitic vol] 101.3 fL High 81-99 [facility] Work Phone: mean corpuscular hemoglobin concentration, RBC 33.3 G/GL Invalid Interpretation Code 32-36 [facility] Work Phone: Monocytes/100 leukocytes 8.2 % Invalid Interpretation Code 0-10 [facility] Work Phone: Monocytes/100 WBC (Bld) 8.2 % Invalid Interpretation Code 0-10 [facility] Work Phone: neutrophil count, blood 3.8 X10 3/UL Invalid Interpretation Code 2.0-7.7 [facility] Work Phone: Neutrophils/100 WBC (Bld) 48.6 % Invalid Interpretation Code 47-70 [facility] Work Phone: Neutrophils/100 WBC Auto (Bld) 48.6 % Invalid Interpretation Code 47-70 [facility] Work Phone: Platelet mean volume (Bld) [Entitic vol] 9.7 fL Invalid Interpretation Code 6.2-12.0 [facility] Work Phone: Platelets (Bld) [#/Vol] 270 10*3/uL Invalid Interpretation Code 150-450 [facility] Work Phone: RBC (Bld) [#/Vol] 4.47 10*6/uL Invalid Interpretation Code 4.2-5.4 [facility] Work Phone: RDW SD 48.6 fL High 35.1-43.9 [facility] Work Phone: red blood cell distribution width, size density 48.6 fL High 35.1-43.9 [facility] Work Phone: WBC (Bld) [#/Vol] 7.7 10*3/uL Invalid Interpretation Code 4.4-11.0 [facility] Work Phone: Lab Report: Comprehensive Ri tabolic Profilon 07-04-2015 Albumin [Mass/Vol] 3.3 g/dL Low 3.4-5.0 [facility] Work Phone: Albumin/Globulin [Mass ratio] 0.0638424 {ratio} Invalid Interpretation Code 0.9-2.4 [facility] Work Phone: Albumin/Globulin Ratio 0.9 {ratio} Invalid Interpretation Code 0.9-2.4 [facility] Work Phone: ALT [Catalytic activity/Vol] 19 U/L Invalid Interpretation Code 12-78 [facility] Work Phone: Anion gap [Moles/Vol] 7 mmol/L Invalid Interpretation Code 5-15 [facility] Work Phone: AST [Catalytic activity/Vol] 12 U/L Low 15-37 [facility] Work Phone: Bilirubin [Mass/Vol] 0.30 mg/dL Invalid Interpretation Code 0.20-1.00 [facility] Work Phone: Chloride [Moles/Vol] 107 mmol/L Invalid Interpretation Code 98-107 [facility] Work Phone: CO2 (BldV) [Partial pressure] 27.0 mmol/L Invalid Interpretation Code 21.0-32.0 [facility] Work Phone: Creatinine [Mass/Vol] 0.85 mg/dL Invalid Interpretation Code 0.55-1.20 [facility] Work Phone: eGFR (non-black) 89 mL/min/{1.73_m2} Invalid Interpretation Code >60 [facility] Work Phone: GFR/1.73 sq M.predicted among non-blacks MDRD (S/P/Bld) [Vol rate/Area] 74 mL/min/{1.73_m2} Invalid Interpretation Code >60 [facility] Work Phone: Globulin 3.7 g/dL High 2.3-3.5 [facility] Work Phone: Globulin (S) [Mass/Vol] 3.7 g/dL High 2.3-3.5 [facility] Work Phone: Glomerular Filtration rate 89 mL/min Invalid Interpretation Code >60 [facility] Work Phone: Glucose [Mass/Vol] 94 mg/dL Invalid Interpretation Code 70-110 [facility] Work Phone: Potassium [Moles/Vol] 4.1 mmol/L Invalid Interpretation Code 3.5-5.1 [facility] Work Phone: Protein [Mass/Vol] 7.0 g/dL Invalid Interpretation Code 6.4-8.2 [facility] Work Phone: Sodium [Moles/Vol] 141 mmol/L Invalid Interpretation Code 136-145 [facility] Work Phone: Urea nitrogen [Mass/Vol] 14 mg/dL Invalid Interpretation Code 7-18 [facility] Work Phone: Urea nitrogen/Creatinine [Mass ratio] 16.9383313 mg/mg Invalid Interpretation Code 10-20 [facility] Work Phone: Lab Report: Folates, (Folic Acid)on 07-04-2015 Folate [Mass/Vol] 15.10 ng/mL Invalid Interpretation Code 3.1-17.5 [facility] Work Phone: Lab Report: Hemoglobin A1con 07-04-2015 HbA1c (Bld) [Mass fraction] 5.7 % Invalid Interpretation Code 4.2-6.3 [facility] Work Phone: Lab Report: Lipid Profileon 07-04-2015 Cholesterol [Mass/Vol] 275 mg/dL High 200 [facility] Work Phone: Cholesterol in HDL [Mass/Vol] 38 mg/dL Low [facility] Work Phone: Cholesterol in LDL [Mass/Vol] 190 mg/dL High 0-130 [facility] Work Phone: Lipoprotein.pre-beta [Mass/Vol] 47 mg/dL High 5-40 [facility] Work Phone: Triglyceride [Mass/Vol] 235 mg/dL High [facility] Work Phone: Lab Report: Partial Thrombop last Timeon 07-04-2015 aPTT Coag (Bld) [Time] 37.7 s High 24.1-36.2 [facility] Work Phone: Lab Report: Prothrombin Time w/INRon 07-04-2015 INR Coag (PPP) [Relative time] 0.9 {INR} Invalid Interpretation Code [facility] Work Phone: Prothrombin time (PT) Coag time (PPP) 12.1 s Invalid Interpretation Code 11.7-14.9 [facility] Work Phone: PT Coag (PPP) [Time] 12.814350354 s Invalid Interpretation Code 11.7-14.9 [facility] Work Phone: Lab Report: Thyroid Stim Hor chimnay (TSH)on 07-04-2015 TSH Qn 1.78 m[IU]/L Invalid Interpretation Code 0.358-3.74 [facility] Work Phone: Lab Report: Vitamin B12on Cobalamin (Vitamin B12) [Mass/Vol] 302 pg/mL Invalid Interpretation Code 211-911 [facility] Work Phone: Lab Report: Vitamin D,25 Hyd roxyon 07-04-2015 vitamin D 25-hydroxy, serum 59.8 ng/mL Invalid Interpretation Code [facility] Work Phone: Vitamin D 25-OH 59.8 ng/mL Invalid Interpretation Code [facility] Work Phone: Office Visit: [facility] 02-07-20 15 cardiac risk group C Invalid Interpretation Code [facility] Work Phone: General cardiovascular disease 10Y risk [#] [place].D'Agostino N/A Invalid Interpretation Code [facility] Work Phone: VITAMIN B12 AND FOLATES ([phone])Ordered By: Membership Director on 10-11-2014 Cobalamin (Vitamin B12) [Mass/Vol] 338 pg/mL Normal 211-946 [facility]; [facility] Work Phone: Comment on above: PATIENT NOT FASTINGP ERFORMED BY: [employer]70 [facility] [id number] Information: [id number] Folate [Mass/Vol] 13.7 ng/mL Normal Compreh ensive Internal Medicine; [facility] Work Phone: Comment on above: A serum folate vanita ntration of less than 3.1 ng/mL isconsidered to represent clinical deficiency. PATIENT NOT FASTINGP ERFORMED BY: [employer]70 [facility] [place] [id number] Information: [id number] ([phone])Ordered By: Membership Director on 10-02-2014 AFP.tumor marker [Mass/Vol] 3.3 ng/mL Normal 0.0-8.3 [facility]; [facility] Work Phone: Comment on above: Isak ECLIA methodol ogy PATIENT WAS FASTINGP ERFORMED BY: SHERLEY LabCoSaint Barnabas Behavioral Health CenterEjghnb0999 [facility] [id number] Blood Glucose , Office ([phone])Ordered By: Janay Edwards on 10-02-2014 Glucose Glucometer (BldC) [Moles/Vol] 100 1 Normal [facility]; [facility] Work Phone: CBC with auto diff ([phone])Or dered By: Membership Director on 10-02-2014 Basophils (Bld) [#/Vol] 0.1 10*3/uL Normal 0.0-0.2 [facility]; [facility] Work Phone: Comment on above: PATIENT WAS FASTINGP ERFORMED BY: LabAsc[facility]ess [facility] Hospital6370 [facility] [id number] Information: [id number] Basophils/100 WBC (Bld) 1 % Normal C omprehensive Internal Medicine; [facility] Work Phone: Comment on above: PATIENT WAS FASTINGP ERFORMED BY: LabAscension Borgess Lee Hospital6370 [facility] [id number] Information: [id number] Eosinophils (Bld) [#/Vol] 0.2 10*3/uL Normal 0.0-0.4 [facility]; [facility] Work Phone: Comment on above: PATIENT WAS FASTINGP ERFORMED BY: LabCo Wlutrb4378 [facility] [id number] Information: [id number] Eosinophils/100 WBC (Bld) 2 % Normal [facility]; [facility] Work Phone: Comment on above: PATIENT WAS FASTINGP ERFORMED BY: LabCo Gudimc8910 [facility] [id number] Information: [id number] Erythrocyte distribution width (RBC) [Ratio] 13.5 % Normal 12.3-15.4 [facility]; [facility] Work Phone: Comment on above: PATIENT WAS FASTINGP ERFORMED BY: SHERLEY Shultz6370 [facility] [id number] Information: [id number] Hematocrit (Bld) [Volume fraction] 46.8 % Abnormal 34.0-46.6 [facility]; [facility] Work Phone: Comment on above: PATIENT WAS FASTINGP ERFORMED BY: [address] [id number] Information: [id number] Hemoglobin (Bld) [Mass/Vol] 15.6 g/dL Normal 11.1-15.9 [facility]; [facility] Work Phone: Comment on above: PATIENT WAS FASTINGP ERFORMED BY: Eric[address] [id number] Information: [id number] Immature granulocytes (Bld) [#/Vol] 0.0 10*3/uL Normal 0.0-0.1 [facility]; [facility] Work Phone: Comment on above: PATIENT WAS FASTINGP ERFORMED BY: SHERLEY Butcher Y[address] [id number] Information: [id number] Immature granulocytes/100 WBC (Bld) 0 % Normal [facility]; [facility] Work Phone: Comment on above: PATIENT WAS FASTINGP ERFORMED BY: [address] [id number] Information: [id number] Lymphocytes (Bld) [#/Vol] 3.2 10*3/uL Abnormal 0.7-3.1 [facility]; [facility] Work Phone: Comment on above: PATIENT WAS FASTINGP ERFORMED BY: [address] [id number] Information: [id number] Lymphocytes/100 WBC (Bld) 39 % Normal [facility]; [facility] Work Phone: Comment on above: PATIENT WAS FASTINGP ERFORMED BY: SHERLEY Shultz6370 [facility] [id number] Information: [id number] MCH (RBC) [Entitic mass] 33.3 pg Abnormal 26.6-33.0 [facility]; [facility] Work Phone: Comment on above: PATIENT WAS FASTINGP ERFORMED BY: [address] [id number] Information: [id number] MCHC (RBC) [Mass/Vol] 33.3 g/dL Normal 31.5-35.[address] [facility] Internal Medicine; [facility] Work Phone: Comment on above: PATIENT WAS FASTINGP ERFORMED BY: SHERLEY [address] [id number] Information: [id number] MCV (RBC) [Entitic vol] 100 fL Abnormal 79-97 C ompparkview health bryan hospitalensive [facility]; [facility] Work Phone: Comment on above: PATIENT WAS FASTINGP ERFORMED BY: SHERLEY [address] [id number] Information: [id number] Monocytes (Bld) [#/Vol] 0.8 10*3/uL Normal 0.1-0.9 [facility]; [facility] Work Phone: Comment on above: PATIENT WAS FASTINGP ERFORMED BY: [facility]6370 [facility] [id number] Information: [id number] Monocytes/100 WBC (Bld) 10 % Normal C omprehensive Internal Medicine; [facility] Work Phone: Comment on above: PATIENT WAS FASTINGP ERFORMED BY: [place] 9971470 [facility] [id number] Information: [id number] Neutrophils (Bld) [#/Vol] 4.0 10*3/uL Normal 1.4-7.0 [facility]; [facility] Work Phone: Comment on above: PATIENT WAS FASTINGP ERFORMED BY: SHERLEY Clarence Shultz6370 [facility] [id number] Information: [id number] Neutrophils/100 WBC (Bld) 48 % Normal [facility]; [facility] Work Phone: Comment on above: PATIENT WAS FASTINGP ERFORMED BY: SHERLEY EricNort[facility] Center Ufgfgb4921 [facility] [id number] Information: [id number] Platelets (Bld) [#/Vol] 268 10*3/uL Normal 150-379 [facility]; [facility] Work Phone: Comment on above: PATIENT WAS FASTINGP ERFORMED BY: SHERLEY Hadley Bxrvxm4328 [facility] [id number] Information: [id number] RBC (Bld) [#/Vol] 4.69 10*6/uL Normal 3.77-5.28 Compr ehensive Internal Medicine; [facility] Work Phone: Comment on above: PATIENT WAS FASTINGP ERFORMED BY: SHERLEY Hadley Ouztkw2705 [facility] [id number] Information: [id number] WBC (Bld) [#/Vol] 8.2 10*3/uL Normal 3.4-10.8 Compre [facility] Internal Medicine; [facility] Work Phone: Comment on above: PATIENT WAS FASTINGP ERFORMED BY: SHERLEY LabCo Kepmku3828 [facility] [id number] Information: [id number] HgA1C , Office ([phone])Cailtyne d By: Janay Edwards on 10-02-2014 HbA1c (Bld) [Mass fraction] 5.9 % Normal 4.6 - 7.1 [facility]; [facility] Work Phone: LIPID PANEL ([phone])Ordered B y: Membership Director on 10-02-2014 Cholesterol [Mass/Vol] 261 mg/dL Abnormal 100-199 Co mprehensive [facility]; [facility] Work Phone: Comment on above: PATIENT WAS FASTINGP ERFORMED BY: CB [facility] Wcwusy7694 Chicas RoadDublin [place] [id number] Cholesterol in HDL [Mass/Vol] 37 mg/dL Abnormal [facility]; [facility] Work Phone: Comment on above: According to ATP-III Guidelines, HDL-C >59 mg/dL is considered anegative risk factor for CHD. PATIENT WAS FASTINGP ERFORMED BY: CB [facility] Dhvtbs6758 [address] ManjrasoftDublin [place] [id number] Cholesterol in LDL [Mass/Vol] 187 mg/dL Abnormal 0-99 [facility]; [facility] Work Phone: Comment on above: PATIENT WAS FASTINGP ERFORMED BY: CB [facility] Qwohgv9901 [address] ManjrasoftDublin [place] [id number] Cholesterol in LDL/Cholesterol in HDL [Mass ratio] 5.1 {ratio_units} Abnormal 0.0-3.2 [facility]; [facility] Work Phone: Comment on above: LDL/HDL Ratio Men Wo men 1/2 Avg.Risk 1.0 1.5 Avg.Risk 3.6 3.2 2X Avg.Risk 6.2 5.0 3X Avg.Risk 8.0 6.1 PATIENT WAS FASTINGP ERFORMED BY: CB [facility] Ftscie8644 [address] ManjrasoftDublin [place] [id number] Cholesterol in VLDL [Mass/Vol] 37 mg/dL Normal 5-40 [facility]; [facility] Work Phone: Comment on above: PATIENT WAS FASTINGP ERFORMED BY: CB [facility] Laezwv0639 Chicas RoadDublin [place] [id number] Triglyceride [Mass/Vol] 185 mg/dL Abnormal 0-149 C omprehensive Internal Medicine; [facility] Work Phone: Comment on above: PATIENT WAS FASTINGP ERFORMED BY: CB [facility] Ebehlw5041 [address] RoadDublin [place] [id number] METABOLIC PANEL, COMPREHENSI VE ([id number])Ordered By: Membership Director on 10-02-2014 Albumin [Mass/Vol] 4.2 g/dL Normal 3.5-5.5 [facility]; [facility] Work Phone: Comment on above: PATIENT WAS FASTINGP ERFORMED BY: CB [facility] Fxujvx4533 [address] RoadDublin [place] [id number] Albumin/Globulin [Mass ratio] 1.9 {ratio} Normal 1.1-2.5 [facility]; [facility] Work Phone: Comment on above: PATIENT WAS FASTINGP ERFORMED BY: CB [facility] Qxjqyf7008 [address] RoadDublin [place] [id number] ALP [Catalytic activity/Vol] 116 U/L Normal 39-117 [facility]; [facility] Work Phone: Comment on above: PATIENT WAS FASTINGP ERFORMED BY: CB [facility] Vltlpt8008 [address] RoadDublin [place] [id number] ALT [Catalytic activity/Vol] 11 U/L Normal 0-32 [facility]; [facility] Work Phone: Comment on above: PATIENT WAS FASTINGP ERFORMED BY: CB [facility] Kjuztd8054 [address] RoadDublin [place] [id number] AST [Catalytic activity/Vol] 13 U/L Normal 0-40 [facility]; [facility] Work Phone: Comment on above: PATIENT WAS FASTINGP ERFORMED BY: CB [facility] Bwzgpy2428 [address] RoadDublin [place] [id number] Bilirubin [Mass/Vol] 0.4 mg/dL Normal 0.0-1.2 [facility]; [facility] Work Phone: Comment on above: PATIENT WAS FASTINGP ERFORMED BY: CB [facility] Mwvpyi7176 [address] RoadDublin [place] [id number] Calcium [Mass/Vol] 9.6 mg/dL Normal 8.7-10.2 [facility]; [facility] Work Phone: Comment on above: PATIENT WAS FASTINGP ERFORMED BY: CB [facility] Imdkfj0733 [address] RoadDublin [place] [id number] Chloride [Moles/Vol] 103 mmol/L Normal 97-108 Comp rehensive Internal Medicine; [facility] Work Phone: Comment on above: PATIENT WAS FASTINGP ERFORMED BY: CB [facility] Oyxxkl3954 [address] RoadDublin [place] [id number] CO2 [Moles/Vol] 23 mmol/L Normal 18-29 [facility]; [facility] Work Phone: Comment on above: PATIENT WAS FASTINGP ERFORMED BY: CB [facility] Ymmlep7762 [address] RoadDuin [place] [id number] Creatinine [Mass/Vol] 0.89 mg/dL Normal 0.57-1.00 [facility] prehensive Internal Medicine; [facility] Work Phone: Comment on above: PATIENT WAS FASTINGP ERFORMED BY: CB [facility] Pjwkju6511 [address] RoadDublin [place] [id number] GFR/1.73 sq M.predicted among blacks CKD-EPI (S/P/Bld) [Vol rate/Area] 84 mL/min/1.73 Normal [facility]; [facility] Work Phone: Comment on above: PATIENT WAS FASTINGP ERFORMED BY: CB [facility] Zznkrs7727 [address] RoadDuin [place] [id number] GFR/1.73 sq M.predicted among non-blacks CKD-EPI (S/P/Bld) [Vol rate/Area] 73 mL/min/1.73 Normal [facility]; [facility] Work Phone: Comment on above: PATIENT WAS FASTINGP ERFORMED BY: CB [facility] Ywkvza2225 [address] RoadDublin [place] [id number] Globulin (S) [Mass/Vol] 2.2 g/dL Normal 1.5-4.5 C omprehensive Internal Medicine; [facility] Work Phone: Comment on above: PATIENT WAS FASTINGP ERFORMED BY: SHERLEY [facility] Ybrxfr8297 [address] RoadDublin [place] [id number] Glucose [Mass/Vol] 94 mg/dL Normal 65-99 [facility] Internal Medicine; [facility] Work Phone: Comment on above: PATIENT WAS FASTINGP ERFORMED BY: CB [facility] Equjiz4694 [address] RoadDublin [place] [id number] Potassium [Moles/Vol] 5.0 mmol/L Normal 3.5-5.[address] [facility] Internal Medicine; [facility] Work Phone: Comment on above: PATIENT WAS FASTINGP ERFORMED BY: CB [facility] Rhnfiy7474 [address] RoadDublin [place] [id number] Protein [Mass/Vol] 6.4 g/dL Normal 6.0-8.5 [facility] Internal Medicine; [facility] Work Phone: Comment on above: PATIENT WAS FASTINGP ERFORMED BY: CB [facility] Jpfgvl7059 [address] RoadDublin [place] [id number] Sodium [Moles/Vol] 140 mmol/L Normal 134-144 [facility] Internal Medicine; [facility] Work Phone: Comment on above: PATIENT WAS FASTINGP ERFORMED BY: CB [facility] Eacdvj6175 [address] RoadDublin [place] [id number] Urea nitrogen [Mass/Vol] 12 mg/dL Normal 6-24 [facility]; [facility] Work Phone: Comment on above: PATIENT WAS FASTINGP ERFORMED BY: CB [facility] Orgaip8617 [address] RoadDublin [place] [id number] Urea nitrogen/Creatinine [Mass ratio] 13 mg/mg Normal 9-23 [facility]; [facility] Work Phone: Comment on above: PATIENT WAS FASTINGP ERFORMED BY: CB [facility] Ocmvvp2764 [address] RoadDublin [place] [id number] MICROALBUMINOrdered By: Syst em Global Sales Executive on 10-02-2014 Albumin DL <= 20 mg/L (U) [Mass/Vol] 3.4 ug/mL Normal 0.0-17.0 [facility]; [facility] Work Phone: Comment on above: PATIENT WAS FASTINGP ERFORMED BY: SHERLEY Butcher Khpnwz0567 [facility] [id number] Albumin/Creatinine (U) [Mass ratio] 4.3 {mg/g_creat} Normal 0.0-30.0 [facility]; [facility] Work Phone: Comment on above: PATIENT WAS FASTINGP ERFORMED BY: [facility] Tpdgub9765 [facility] [id number] Creatinine (U) [Mass/Vol] 78.3 mg/dL Normal 15.0-278.0 [facility]; [facility] Work Phone: Comment on above: PATIENT WAS FASTINGP ERFORMED BY: [facility] Pgtnrc3577 [facility] [id number] PT (Prothrobim Time) ([id number]) Ordered By: Membership Director on 10-02-2014 INR Coag (PPP) [Relative time] 1.0 {INR} Normal 0.8-1.2 [facility]; [facility] Work Phone: Comment on above: Reference interval i s for non-anticoagulated patients. . Suggested INR therapeutic range for Vitamin K antagonist therapy: Standard Dose (moderate intensity therapeutic range): 2.0 - 3.0 Higher intensity therapeutic range 2.5 - 3.5 PATIENT WAS FASTINGP ERFORMED BY: [facility] Khuppo8391 [facility] [id number] PT Coag (PPP) [Time] 10.3 s Normal 9.1-12.0 [facility] Internal Medicine; [facility] Work Phone: Comment on above: PATIENT WAS FASTINGP ERFORMED BY: [facility] Plkocm1243 [facility] [id number] PTT (Activated Partial Throm boplastin Time) ([id number])Ordered By: Membership Director on 10-02-2014 aPTT Coag (PPP) [Time] 33 s Normal 24-33 Co mprehensive Internal Medicine; [facility] Work Phone: Comment on above: This test has not be en validated for monitoring unfractionated heparintherapy. aPTT-based therapeutic ranges for unfractionated heparintherapy have not been established. For general guidelines onHeparin monitoring, refer to the [facility] Directory of Services. PATIENT WAS FASTINGP ERFORMED BY: [facility]6[address] [place] [id number] TSH ([id number])Ordered By: [employer]e m Global Sales Executive on 10-02-2014 TSH Qn 2.210 {uIU/mL} Normal 0.450-4.500 Comprehen sive Internal Medicine; [facility] Work Phone: Comment on above: PATIENT WAS FASTINGP ERFORMED BY: [facility]6[address] [place] [id number] URINALYSIS, W/ MICRO ([id number]) Ordered By: Membership Director on 10-02-2014 Appearance (U) Clear Normal Comprehens brian Internal Medicine; [facility] Work Phone: Comment on above: PATIENT WAS FASTINGP ERFORMED BY: [facility]6[address] [place] [id number] Bilirubin Ql (U) Negative Normal Comprehe nsive Internal Medicine; [facility] Work Phone: Comment on above: PATIENT WAS FASTINGP ERFORMED BY: [facility]6[address] [place] [id number] Color (U) Yellow Normal [facility]; [facility] Work Phone: Comment on above: PATIENT WAS FASTINGP ERFORMED BY: [facility]ballMer[facility] WashingtonAoyemg6169 [address] RoadDublin [place] [id number] Glucose Ql (U) Negative Normal Comprehens brian Internal Medicine; [facility] Work Phone: Comment on above: PATIENT WAS FASTINGP ERFORMED BY: [facility] Centerlin6370 [address] RoadDublin [place] [id number] Hemoglobin Ql (U) Negative Normal Compreh ensive Internal Medicine; [facility] Work Phone: Comment on above: PATIENT WAS FASTINGP ERFORMED BY: SHERLEY Staufferlin6370 [address] RoadDublin [place] [id number] Ketones Ql (U) Negative Normal Comprehens brian Internal Medicine; [facility] Work Phone: Comment on above: PATIENT WAS FASTINGP ERFORMED BY: SHERLEY Shultz6370 [address] RoadDublin [place] [id number] Leukocyte esterase Test strip Ql (U) 1+ Abnormal [facility]; [facility] Work Phone: Comment on above: PATIENT WAS FASTINGP ERFORMED BY: SHERLEY Staufferlin6370 [address] RoadDublin [place] [id number] Microscopic observation LM Nom (Urine sed) See below: Normal [facility]; [facility] Work Phone: Comment on above: Microscopic was mesfin cated and was performed. PATIENT WAS FASTINGP ERFORMED BY: SHERLEY Staufferlin6370 [address] RoadDublin [place] [id number] Nitrite Ql (U) Negative Normal Comprehens brian Internal Medicine; [facility] Work Phone: Comment on above: PATIENT WAS FASTINGP ERFORMED BY: SHERLEY Staufferlin6370 [address] RoadDublin [place] [id number] pH (U) 7.5 [pH] Normal 5.0-7.5 [facility]; [facility] Work Phone: Comment on above: PATIENT WAS FASTINGP ERFORMED BY: SHERLEY Staufferlin6370 [address] RoadDublin [place] [id number] Protein Ql (U) Negative Normal Comprehens brian Internal Medicine; [facility] Work Phone: Comment on above: PATIENT WAS FASTINGP ERFORMED BY: SHERLEY Staufferlin6370 [address] RoadDublin [place] [id number] Specific gravity (U) [Rel density] 1.016 1 Normal 1.005-1.030 [facility]; [facility] Work Phone: Comment on above: PATIENT WAS FASTINGP ERFORMED BY: SHERLEY LabPol[facility] StaufferLtjwdb4222 Hcicas RoadDublin [place] [id number] Urobilinogen (U) [Mass/Vol] 0.2 mg/dL Normal 0.0-1.9 [facility]; [facility] Work Phone: Comment on above: PATIENT WAS FASTINGP ERFORMED BY: LabCoSaint Barnabas Behavioral Health CenterBftbrh8777 [facility] [id number] Vitamin D Hydroxy ([id number])Ord ered By: Membership Director on 10-02-2014 25-hydroxyvitamin D [Mass/Vol] 13.6 ng/mL Abnormal 30.0-100.0 [facility]; [facility] Work Phone: Comment on above: Vitamin D deficiency has been defined by the [place] ofMedicine and an Endocrine Society practice guideline as alevel of serum 25-OH vitamin D less than 20 ng/mL (1,2).The Endocrine Society went on to further define vitamin Dinsufficiency as a level between 21 and 29 ng/mL (2).1. IOM ([place] of Medicine). 2010. Dietary reference intakes for calcium and D. [place]: The National Academies Press.2. Feng MF, Yumiko ATKINSON, Juan MCCARTHY, et al. Evaluation, treatment, and prevention of vitamin D deficiency: an Endocrine Society clinical practice guideline. JCEM. 2010; 96(7):1911-30. PATIENT WAS FASTINGP ERFORMED BY: SensiGenSaint Barnabas Behavioral Health CenterJpaolq3491 [facility] [id number] Blood Glucose , Office ([phone])Ordered By: Edith Govea on 07-28-2012 Glucose Glucometer (BldC) [Moles/Vol] 127 1 Normal [facility]; [facility] Work Phone: HgA1C , Office ([phone])Ordere d By: Nerissa Rodriguez on 07-28-2012 HbA1c (Bld) [Mass fraction] 6.0 % Normal 4.6 - 7.1 [facility]; [facility] Work Phone: Blood Glucose , Office ([phone])Ordered By: Janay Edwards on 03-25-2012 Glucose Glucometer (BldC) [Moles/Vol] 151 1 Normal [facility]; [facility] Work Phone: HgA1C , Office ([phone])Ordere d By: Janay Edwards on 03-25-2012 HbA1c (Bld) [Mass fraction] 6.0 % Normal 4.6 - 7.1 [facility]; [facility] Work Phone: Blood Glucose , Office ([phone])Ordered By: Janay Edwards on 11-19-2011 Glucose Glucometer (BldC) [Moles/Vol] 141 1 Normal [facility]; [facility] Work Phone: HgA1C , Office ([phone])Ordere d By: Janay Edwards on 11-19-2011 HbA1c (Bld) [Mass fraction] 5.7 % Normal 4.6 - 7.1 [facility]; [facility] Work Phone: Urinalysis, Office ([phone])Or dered By: Edith Govea on 09-09-2010 Bilirubin [...] Bacteria identified Cx Nom (U) Escherichia coli [facility] Work Phone: Vital Signs Date Time Vital Sign Value Performing Clinician Facility 05-01-2025 15:39-0400 Body height 170.[address] Martin Gutierrez MD Work Phone: 0(782)800-396734 [place] [address] 05-01-2025 15:39-0400 Body mass index (BMI) [Ratio] 29 kg/m2 Dr. Martin Gutierrez MD Work Phone: 8(622)198-127106 [place] [address] 05-01-2025 15:39-0400 Body temperature 98.2 [degF] Dr. Martin Gutierrez MD Work Phone: 8(422)321-107806 [place] [address] 05-01-2025 15:39-0400 Body weight 83.[address] Martin Gutierrez MD Work Phone: 3(281)533-152506 [place] [address] 05-01-2025 15:39-0400 Diastolic blood pressure 74 mm[Hg] Dr. Martin Gutierrez MD Work Phone: 9(791)119-265706 [place] [address] 05-01-2025 15:39-0400 Heart rate 71 /min Dr. Martin Gutierrez MD Work Phone: 0(189)513-067806 [place] [address] 05-01-2025 15:39-0400 Respiratory rate 18 /min Dr. Martin Gutierrez MD Work Phone: 3(937)062-139806 [place] [address] 05-01-2025 15:39-0400 SaO2% (BldA) [Mass fraction] 96 % Dr. Martin Gutierrez MD Work Phone: 5(931)475-939506 [place] [address] 05-01-2025 15:39-0400 Systolic blood pressure 145 mm[Hg] Dr. Martin Gutierrez MD Work Phone: 5(563)592-487634 [place] [address] 10-04-2024 10:55-0500 Body height 170.[address] Martin Gutierrez MD Work Phone: 7(344)211-760506 [place] [address] 10-04-2024 10:55-0500 Body mass index (BMI) [Ratio] 28.2 kg/m2 Dr. Martin Gutierrez MD Work Phone: 7(326)166-538534 [place] [address] 10-04-2024 10:55-0500 Body temperature 97.8 [degF] Dr. Martin Gutierrez MD Work Phone: 8(443)484-229406 [place] [address] 10-04-2024 10:55-0500 Body weight 81.[address] Martin Gutierrez MD Work Phone: 9(498)834-620934 [place] [address] 10-04-2024 10:55-0500 Diastolic blood pressure 74 mm[Hg] Dr. Martin Gutierrez MD Work Phone: 9(235)712-769234 [place] [address] 10-04-2024 10:55-0500 Heart rate 76 /min Dr. Martin Gutierrez MD Work Phone: 9(939)924-792906 [place] [address] 10-04-2024 10:55-0500 Respiratory rate 18 /min Dr. Martin Gutierrez MD Work Phone: 7(807)718-455806 [place] [address] 10-04-2024 10:55-0500 SaO2% (BldA) [Mass fraction] 95 % Dr. Martin Gutierrez MD Work Phone: 0(371)502-187606 [place] [address] 10-04-2024 10:55-0500 Systolic blood pressure 123 mm[Hg] Dr. Martin Gutierrez MD Work Phone: 5(129)648-113306 [place] [address] 09-28-2024 11:57-0500 Body temperature 97.9 [degF] Dr. Martin Gutierrez MD Work Phone: 4(781)934-265706 [place] [address] 09-28-2024 11:57-0500 Diastolic blood pressure 61 mm[Hg] Dr. Martin Gutierrez MD Work Phone: 2(646)861-775706 [place] [address] 09-28-2024 11:57-0500 Heart rate 80 /min Dr. Martin Gutierrez MD Work Phone: 8(123)336-878134 [place] [address] 09-28-2024 11:57-0500 Respiratory rate 20 /min Dr. Martin Gutierrez MD Work Phone: 7(728)669-149934 [place] [address] 09-28-2024 11:57-0500 SaO2% (BldA) [Mass fraction] 93 % Dr. Martin Gutierrez MD Work Phone: 9(777)029-579234 [place] [address] 09-28-2024 11:57-0500 Systolic blood pressure 131 mm[Hg] Dr. Martin Gutierrez MD Work Phone: 0(968)333-666034 [place] [address] 09-28-2024 09:17-0500 Inhaled oxygen flow rate 3 L/min Dr. Martin Gutierrez MD Work Phone: 2(188)759-575234 [place] [address] 09-28-2024 04:03-0500 Body mass index (BMI) [Ratio] 28.4 kg/m2 Dr. Martin Gutierrez MD Work Phone: 7(510)767-195734 [place] [address] 09-28-2024 04:03-0500 Body weight 82.[address] Martin Gutierrez MD Work Phone: 4(432)504-434534 [place] [address] 01-13-2024 14:58-0400 Body temperature 97.2 [degF] Dr. Martin Gutierrez MD Work Phone: 1(745)087-771734 [place] [address] 01-13-2024 14:58-0400 Diastolic blood pressure 54 mm[Hg] Dr. Martin Gutierrez MD Work Phone: 3(254)415-266234 [place] [address] 01-13-2024 14:58-0400 Heart rate 69 /min Dr. Martin Gutierrez MD Work Phone: 4(294)507-639634 [place] [address] 01-13-2024 14:58-0400 Respiratory rate 16 /min Dr. Martin Gutierrez MD Work Phone: 7(256)317-427634 [place] [address] 01-13-2024 14:58-0400 SaO2% (BldA) [Mass fraction] 94 % Dr. Martin Gutierrez MD Work Phone: 8(410)872-203034 [place] [address] 01-13-2024 14:58-0400 Systolic blood pressure 116 mm[Hg] Dr. Martin Gutierrez MD Work Phone: 2(976)856-729234 [place] [address] 01-13-2024 13:19-0400 Body mass index (BMI) [Ratio] 30.8 kg/m2 Dr. Martin Gutierrez MD Work Phone: 3(240)166-477634 [place] [address] 09-30-2023 13:26-0500 Body height 167.[address] Martin Gutierrez Work Phone: 8(772)229-277334 [place] [address] 09-30-2023 13:26-0500 Body mass index (BMI) [Ratio] 30.4 kg/m2 Dr. Martin Gutierrez Work Phone: 9(454)468-565534 [place] [address] 09-30-2023 13:26-0500 Body temperature 98.6 [degF] Dr. Martin Gutierrez Work Phone: 5(667)883-826134 [place] [address] 09-30-2023 13:26-0500 Body weight 85.[address] Martin Gutierrez Work Phone: 4(731)938-078834 [place] [address] 09-30-2023 13:26-0500 Diastolic blood pressure 72 mm[Hg] Dr. Martin Gutierrez Work Phone: 7(292)390-666134 [place] [address] 09-30-2023 13:26-0500 Heart rate 71 /min Dr. Martin Gutierrez Work Phone: 1(732)361-579106 [place] [address] 09-30-2023 13:26-0500 Respiratory rate 18 /min Dr. Martin Gutierrez Work Phone: 7(008)648-317006 [place] [address] 09-30-2023 13:26-0500 SaO2% (BldA) [Mass fraction] 96 % Dr. Martin Gutierrez Work Phone: 0(405)215-873034 [place] [address] 09-30-2023 13:26-0500 Systolic blood pressure 126 mm[Hg] Dr. Martin Gutierrez Work Phone: 2(099)928-632006 [place] [address] 04-15-2023 11:03-0400 Body height 167.[address] Martin Gutierrez Work Phone: 3(762)228-231506 [place] [address] 04-15-2023 11:01-0400 Body mass index (BMI) [Ratio] 31.6 kg/m2 Dr. Martin Gutierrez Work Phone: 3(642)848-988434 [place] [address] 04-15-2023 11:01-0400 Body temperature 98.5 [degF] Dr. Martin Gutierrez Work Phone: 8(826)408-581634 [place] [address] 04-15-2023 11:01-0400 Body weight 89.[address] Martin Gutierrez Work Phone: 4(993)062-262234 [place] [address] 04-15-2023 11:01-0400 Diastolic blood pressure 75 mm[Hg] Dr. Martin Guiterrez Work Phone: 7(266)320-190034 [place] [address] 04-15-2023 11:01-0400 Heart rate 70 /min Dr. Martin Gutierrez Work Phone: [facility] 04-15-2023 11:01-0400 Respiratory rate 16 /min Dr. Martin Gutierrez Work Phone: 7(773)563-442334 [place] [address] 04-15-2023 11:01-0400 SaO2% (BldA) [Mass fraction] 96 % Dr. Martin Gutierrez Work Phone: 5(681)248-760534 [place] [address] 04-15-2023 11:01-0400 Systolic blood pressure 172 mm[Hg] Dr. Martin Gutierrez Work Phone: 4(649)332-133734 [place] [address] 10-20-2022 07:46-0500 Body height 167.[address] Martin Gutierrez Work Phone: 4(806)898-139606 [place] [address] 10-20-2022 07:46-0500 Body mass index (BMI) [Ratio] 32.4 kg/m2 Dr. Martin Gutierrez Work Phone: 1(411)794-593006 [place] [address] 10-20-2022 07:46-0500 Body temperature 98.2 [degF] Dr. Mratin Gutierrez Work Phone: 0(788)125-838006 [place] [address] 10-20-2022 07:46-0500 Body weight 91.[address] Martin Gutierrez Work Phone: 2(980)867-201706 [place] [address] 10-20-2022 07:46-0500 Diastolic blood pressure 75 mm[Hg] Dr. Martin Gutierrez Work Phone: 6(698)133-718806 [place] [address] 10-20-2022 07:46-0500 Heart rate 80 /min Dr. Martin Gutierrez Work Phone: 3(157)561-180806 [place] [address] 10-20-2022 07:46-0500 Respiratory rate 20 /min Dr. Martin Gutierrez Work Phone: 0(904)618-083306 [place] [address] 10-20-2022 07:46-0500 SaO2% (BldA) [Mass fraction] 95 % Dr. Martin Gutierrez Work Phone: 8(274)748-739606 [place] [address] 10-20-2022 07:46-0500 Systolic blood pressure 170 mm[Hg] Dr. Martin Gutierrez Work Phone: 3(507)237-373034 [place] [address] 09-02-2022 13:21-0500 Body mass index (BMI) [Ratio] 31.5 kg/m2 Dr. Martin Gutierrez Work Phone: [facility] 09-02-2022 13:21-0500 Body temperature 97.9 [degF] Dr. Martin Gutierrez Work Phone: [facility] 09-02-2022 13:21-0500 Body weight 88.[address] Martin Gutierrez Work Phone: [facility] 09-02-2022 13:21-0500 Diastolic blood pressure 68 mm[Hg] Dr. Martin Gutierrez Work Phone: 9(278)794-997234 [place] [address] 09-02-2022 13:21-0500 Heart rate 72 /min Dr. Martin Gutierrez Work Phone: 7(508)366-451434 [place] [address] 09-02-2022 13:21-0500 Respiratory rate 16 /min Dr. Martin Gutierrez Work Phone: [facility] 09-02-2022 13:21-0500 SaO2% (BldA) [Mass fraction] 94 % Dr. Martin Gutierrez Work Phone: [facility] 09-02-2022 13:21-0500 Systolic blood pressure 133 mm[Hg] Dr. Martin Gutierrez Work Phone: [facility] 02-19-2022 14:08-0400 Body height 167.[address] Martin Gutierrez Work Phone: [facility] Work Phone: 02-19-2022 14:04-0400 Body mass index (BMI) [Ratio] 32 kg/m2 Dr. Martin Gutierrez Work Phone: [facility] Work Phone: 02-19-2022 14:04-0400 Body temperature 97.8 [degF] Dr. Martin Gutierrez Work Phone: [facility] Work Phone: 02-19-2022 14:04-0400 Body weight 90.[address] Martin Gutierrez Work Phone: [facility] Work Phone: 02-19-2022 14:04-0400 Diastolic blood pressure 75 mm[Hg] Dr. Martin Gutierrez Work Phone: [facility] Work Phone: 02-19-2022 14:04-0400 Heart rate 81 /min Dr. Martin Gutierrez Work Phone: [facility] Work Phone: 02-19-2022 14:04-0400 Respiratory rate 15 /min Dr. Martin Gutierrez Work Phone: [facility] Work Phone: 02-19-2022 14:04-0400 SaO2% (BldA) [Mass fraction] 91 % Dr. Martin Gutierrez Work Phone: [facility] [facility] Work Phone: 02-19-2022 14:04-0400 Systolic blood pressure 132 mm[Hg] Dr. Martin Gutierrez Work Phone: [facility] Work Phone: 11-06-2021 14:44-0400 Body height 167.[address] Martin Gutierrez Work Phone: [facility] Work Phone: 11-06-2021 14:44-0400 Body mass index (BMI) [Ratio] 32.8 kg/m2 Dr. Martin Gutierrez Work Phone: [facility] Work Phone: 11-06-2021 14:44-0400 Body temperature 98.6 [degF] Dr. Martin Gutierrez Work Phone: [facility] Work Phone: 11-06-2021 14:44-0400 Body weight 92.[address] Martin Gutierrez Work Phone: [facility] Work Phone: 11-06-2021 14:44-0400 Diastolic blood pressure 63 mm[Hg] Dr. Martin Gutierrez Work Phone: [facility] Work Phone: 11-06-2021 14:44-0400 Heart rate 73 /min Dr. Martin Gutierrez Work Phone: [facility] Work Phone: 11-06-2021 14:44-0400 Respiratory rate 14 /min Dr. Martin Guiterrez Work Phone: [facility] Work Phone: 11-06-2021 14:44-0400 SaO2% (BldA) [Mass fraction] 95 % Dr. Martin Gutierrez Work Phone: [facility] Work Phone: 11-06-2021 14:44-0400 Systolic blood pressure 105 mm[Hg] Dr. Martin Gutierrez Work Phone: [facility] Work Phone: 10-10-2021 14:52-0500 Diastolic blood pressure 49 mm[Hg] Dr. Martin Gutierrez Work Phone: [facility] 10-10-2021 14:52-0500 Heart rate 68 /min Dr. Martin Gutierrez Work Phone: [facility] 10-10-2021 14:52-0500 Respiratory rate 16 /min Dr. Martin Gutierrez Work Phone: [facility] 10-10-2021 14:52-0500 SaO2% (BldA) [Mass fraction] 97 % Dr. Martin Gutierrez Work Phone: [facility] 10-10-2021 14:52-0500 Systolic blood pressure 119 mm[Hg] Dr. Martin Gutierrez Work Phone: [facility] 10-10-2021 13:52-0500 Diastolic blood pressure 49 mm[Hg] Dr. Martin Gutierrez Work Phone: [facility] Work Phone: 10-10-2021 13:52-0500 Heart rate 68 /min Dr. Martin Gutierrez Work Phone: [facility] Work Phone: 10-10-2021 13:52-0500 Respiratory rate 16 /min Dr. Martin Gutierrez Work Phone: [facility] Work Phone: 10-10-2021 13:52-0500 SaO2% (BldA) [Mass fraction] 97 % Dr. Martin Gutierrez Work Phone: [facility] Work Phone: 10-10-2021 13:52-0500 Systolic blood pressure 119 mm[Hg] Dr. Martin Gutierrez Work Phone: [facility] Work Phone: 10-10-2021 12:56-0500 Body mass index (BMI) [Ratio] 33 kg/m2 Dr. Martin Gutierrez Work Phone: [facility] 10-10-2021 12:56-0500 Body temperature 98 [degF] Dr. Martin Gutierrez Work Phone: [facility] 10-10-2021 12:56-0500 Body weight 92.[address] Martin Gutierrez Work Phone: [facility] 10-10-2021 11:56-0500 Body mass index (BMI) [Ratio] 33 kg/m2 Dr. Martin Gutierrez Work Phone: [facility] Work Phone: 10-10-2021 11:56-0500 Body temperature 98 [degF] Dr. Martin Gutierrez Work Phone: [facility] Work Phone: 10-10-2021 11:56-0500 Body weight 92.[address] Martin Gutierrez Work Phone: [facility] Work Phone: 09-17-2021 12:12-0500 Body mass index (BMI) [Ratio] 33.3 kg/m2 Dr. Martin Gutierrez Work Phone: [facility] Work Phone: 09-17-2021 12:12-0500 Body temperature 98 [degF] Dr. Martin Gutierrez Work Phone: [facility] Work Phone: 09-17-2021 12:12-0500 Body weight 93.[address] Martin Gutierrez Work Phone: [facility] Work Phone: 09-17-2021 12:12-0500 Diastolic blood pressure 74 mm[Hg] Dr. Martin Gutierrez Work Phone: [facility] Work Phone: 09-17-2021 12:12-0500 Heart rate 73 /min Dr. Martin Gutierrez Work Phone: [facility] Work Phone: 09-17-2021 12:12-0500 Respiratory rate 16 /min Dr. Martin Gutierrez Work Phone: [facility] Work Phone: 09-17-2021 12:12-0500 SaO2% (BldA) [Mass fraction] 98 % Dr. Martin Gutierrez Work Phone: [facility] Work Phone: 09-17-2021 12:12-0500 Systolic blood pressure 131 mm[Hg] Dr. Martin Gutierrez Work Phone: [facility] Work Phone: 01-15-2017 11:10-0400 Body height 170.18 cm Janene Vallecillo Work Phone: [facility] Work Phone: 01-15-2017 11:10-0400 Body mass index (BMI) [Ratio] 41.41 kg/m2 Janene Vallecillo Work Phone: [facility] Work Phone: 01-15-2017 11:10-0400 Body weight 119.93 kg Janene Vallecillo Work Phone: [facility] Work Phone: 01-15-2017 11:10-0400 Diastolic blood pressure 88 mm[Hg] Janene Vallecillo Work Phone: [facility] Work Phone: 01-15-2017 11:10-0400 Heart rate 64 /min Janene Vallecillo Work Phone: [facility] Work Phone: 01-15-2017 11:10-0400 Respiratory rate 20 /min Janene Vallecillo Work Phone: [facility] Work Phone: 01-15-2017 11:10-0400 Systolic blood pressure 160 mm[Hg] Janene Vallecillo Work Phone: [facility] Work Phone: 01-15-2017 11:10-0400 Weight 119.93 kg Mena Holman RN [facility] Work Phone: 07-15-2016 08:19-0500 Body mass index (BMI) [Ratio] 37.59 kg/m2 Tali Parikh Work Phone: [facility] Work Phone: 07-15-2016 08:19-0500 Body surface area Derived from formula 2.19 m2 Tali Parikh Work Phone: [facility] Work Phone: 07-15-2016 08:19-0500 Body weight 108.86 kg Tali Parikh Work Phone: [facility] Work Phone: 07-15-2016 08:19-0500 Diastolic blood pressure 72 mm[Hg] Tali Parikh Work Phone: [facility] Work Phone: 07-15-2016 08:19-0500 Heart rate 56 /min Tali Parikh Work Phone: [facility] Work Phone: 07-15-2016 08:19-0500 Respiratory rate 18 /min Tali Parikh Work Phone: [facility] Work Phone: 07-15-2016 08:19-0500 Systolic blood pressure 132 mm[Hg] Tali Parikh Work Phone: [facility] Work Phone: 08-30-2015 10:55-0500 Body height 170.18 cm Janay Edwards RN [facility] Work Phone: 08-30-2015 10:55-0500 Body mass index (BMI) [Ratio] 39.21 kg/m2 Janay Edwards RN [facility] Work Phone: 08-30-2015 10:55-0500 Body surface area Derived from formula 2.22 m2 Janay dEwards RN [facility]; [facility] [...] height 170.18 cm Tali Parikh Work Phone: [facility] Work Phone: 10-28-2013 [...] 11:15-0500 Body weight 129.28 kg Lisa Rosenbaum [facility] Work Phone: 10-28-2013 11:15-0500 Diastolic blood pressure 92 mm[Hg] Lisa Rosenbaum CMA [facility] Work Phone: Comment on above: Patient Position: Sitting; Cuff Location : Left Arm; Cuff Size: Standard 10-28-2013 11:15-0500 Heart rate 62 /min Lisa Huffliezttenitish [facility] Work Phone: Comment on above: Pattern: Regular 10-28-2013 11:15-0500 Respiratory rate 16 /min Lisa Rosenbaum [facility] Work Phone: Comment on above: Pattern: Unlabored 10-28-2013 11:15-0500 SaO2% (BldA) [Mass fraction] 97 % Lisa Rosenbaum [facility] Work Phone: Comment on above: Room air 10-28-2013 11:15-0500 Systolic blood pressure 152 mm[Hg] Lisa Rosenbaum [facility] Work [...] 10-06-2011 16:01-0500 Body height 170.18 cm Na lEler LPN [facility]; [facility] Work Phone: 10-06-2011 16:01-0500 Body mass index (BMI) [Ratio] 43.67 kg/m2 Na Eller LPN [facility]; [facility] Work Phone: 10-06-2011 16:01-0500 Body surface area Derived from formula 2.33 m2 aN Eller LPN [facility]; [facility] [...] 15:03-0400 Body weight 126.46 kg Na Eller JANITORIAL MANAGER [facility]; [facility] Work [...] Phone: 09-16-2010 08:30-0500 Body temperature 98.1 [degF] dEith Govea RN [facility]; [facility] [...] 09-16-2010 08:30-0500 Systolic blood pressure 138 mm[Hg] Ediht Govea RN [facility]; [facility] [...] 06-09-2008 13:25-0400 Body temperature 97.6 [degF] Janay Edawrds RN [facility]; [facility] [...] (BldA) [Mass fraction] 94 % ANTHONY Bala JANITORIAL MANAGER [facility] Work Phone: Comment on above: Room air 11-05-2007 10:48-0400 Systolic blood pressure 124 mm[Hg] ANTHONY Mckenna [facility] Work [...] Type Care Provider Facility Start: 05-05-2025 ambulatory [facility] Facility:[facility] Start: 05-01-[address] Priya Ulloa MD -[facility] Start: 05-01-2025 End: 05-01-[address] Simon Ulloa MD -[facility] Work Phone: Start: 05-01-2025 End: 05-01-[address] Martin Gutierrez MD Work Phone: -[facility] Start: 01-03-2025 ambulatory [facility] Facility:[facility] Start: 12-22-2024 End: 12-22-[address] Martin Gutierrez MD -Laboratory Work Phone: Start: 12-22-2024 End: 12-22-2024 ambulatory [facility] Facility:[facility] Start: 11-14-2024 End: 11-14-[address] Armando Ga MD -Physical Therapy Work Phone: Start: 11-14-2024 End: 11-14-[address] Martin Gutierrez MD Work Phone: [facility] Work Phone: Start: 10-05-2024 End: 10-05-[address] Martin Gutierrez MD -Laboratory Work Phone: Start: 10-04-[address] Priya Ulloa MD -[facility] Start: 10-04-2024 End: 10-04-[address] Simon Ulloa MD -[facility] Work Phone: Start: 10-04-2024 End: 10-05-2024 ambulatory Martin Chi Matt Facility:[facility] Start: 09-28-2024 Non-patient / Non-visit Dr. Scott Mcneal MD -[facility] Work Phone: Start: 09-27-2024 Non-patient / Non-visit Dr. Scott Mcneal MD -[facility] Work Phone: Start: 09-26-2024 ambulatory Esperanza Myers Facility :[facility] Start: 09-26-2024 End: 09-28-2024 Evaluation and management of inpatient Dr. Scott Mcneal MD -Medical Surgical 3 Work Phone: Start: 07-26-2024 End: 07-26-2024 ambulatory Martin Chi Matt Facility:[facility] Start: 07-26-2024 End: 07-26-2024 ambulatory Margi Christian BOBBIN COLLECTOR Facility:[facility] Start: 06-15-2024 End: 06-15-2024 ambulatory Martin Chi Matt Facility:[facility] Start: 06-13-2024 End: 06-13-2024 ambulatory Martin Chi Matt Facility:[facility] Start: 05-23-2024 End: 05-23-2024 ambulatory Martin Chi Matt Facility:[facility] Start: 05-20-2024 ambulatory Martin Chi Matt Facility:[facility] Start: 05-17-2024 ambulatory Martin Chi Matt Facility:[facility] Start: 05-11-2024 End: 05-11-2024 ambulatory Martin Chi Matt Facility:[facility] Start: 12-18-2023 End: 12-18-[address] Martin Gutierrez Work Phone: [facility] Work Phone: Start: 12-18-2023 End: 12-18-[address] Martin [facility]rez [facility] Office 3rd Flr Start: 09-30-[address] Martin alex Work Phone: [facility] Start: 09-30-2023 End: 09-30-[address] Martin Gutierrez Work Phone: [facility] Work Phone: Start: 08-26-2023 End: 08-26-2023 ambulatory [facility] Work Phone: Start: 08-26-2023 End: 08-26-2023 Patient encounter procedure [facility], [facility] Office 3rd Flr Start: 06-09-2023 End: 06-09-[address] Martin Gutierrez Work Phone: [facility] Work Phone: Start: 06-09-2023 End: 06-09-[address] Martin Gutierrez Work Phone: [facility], [facility] Office 3rd Flr Start: 05-14-2023 End: 05-14-[address] Martin Gutierrez Work Phone: [facility] Work Phone: Start: 05-14-2023 End: 05-14-[address] Martin Gutierrez Work Phone: [facility]-Pulmonary Services/Neurology Work Phone: Start: 05-05-2023 End: 05-05-[address] Martin Gutierrez Work Phone: [facility] Work Phone: Start: 05-05-2023 End: 05-05-[address] Martin Gutierrez Work Phone: [facility]-Outpatient Breast Imaging Work Phone: Start: 04-15-[address] Martin alex Work Phone: [facility] Start: 04-15-2023 End: 04-15-[address] Martin Gutierrez Work Phone: [facility] Work Phone: Start: 12-11-2022 End: 12-11-[address] Martin Gutierrez Work Phone: [facility] Work Phone: Start: 12-11-2022 End: 12-11-[address] Martin Gutierrez Work Phone: [facility]-Laboratory Start: 11-27-2022 End: 11-27-[address] Martin Gutierrez [facility] Start: 10-20-2022 End: 10-20-[address] Martin Gutierrez [facility] Start: 09-02-[address] Martin alex Work Phone: [facility] Start: 09-02-2022 End: 09-02-[address] Martin Gutierrez Work Phone: [facility] Start: 06-11-2022 End: 06-11-[address] Martin Gutierrez Work Phone: [facility] Work Phone: Start: 06-11-2022 End: 06-11-[address] Martin Gutierrez Work Phone: [facility]-Laboratory, Phy Office 3rd Flr Start: 06-02-2022 End: 06-02-[address] Martin Gutierrez [facility] Start: 04-23-2022 End: 04-23-[address] Martin Gutierrez Work Phone: [facility] Work Phone: Start: 04-23-2022 End: 04-23-[address] Martin Gutierrez [facility] Start: 04-15-2022 End: 04-15-[address] Martin Gutierrez Work Phone: [facility] Work Phone: Start: 04-15-2022 End: 04-15-[address] Martin Gutierrez Work Phone: [facility]-Outpatient Breast Imaging Start: 02-19-2022 End: 02-19-[address] Martin Gutierrez Work Phone: [facility] Start: 02-19-[address] Martin alex Work Phone: [facility] Start: 12-17-2021 End: 12-17-[address] Martin Gut[facility]rez [facility] Start: 12-02-2021 End: 12-02-[address] Martin Gutierrez [facility] Start: 11-06-[address] Martin alex Work Phone: [facility] Start: 11-06-2021 End: 11-06-[address] Martin Gutierrez Work Phone: [facility] Start: 09-17-2021 End: 09-17-[address] Martin Gutierrez Work Phone: [facility] Start: 08-20-2021 Non-patient / Non-visit Dr. Martin Gutierrez Work Phone: [facility] Start: 08-20-[address] Martin Gutierrez Work Phone: [facility]-Cardiovascular Services Start: 08-13-2017 End: 08-13-2017 Ambulatory BRANDO GUTIERREZ Facility:[facility] Start: 07-14-2017 End: 07-14-2017 Ambulatory NELY CALZADA Facility:[facility] Start: 06-25-2017 End: 06-25-2017 Patient encounter procedure [facility]ER [facility] Start: 06-25-2017 End: 06-28-2017 Evaluation and management of inpatient CELINE CORREA Facility:[facility] Start: 08-30-2015 End: 08-30-2015 Office outpatient [...] Parikh Work Phone: Start: 07-15-2016 End: 07-15-2016 WEIGHT AND BALANCE CONTROL AGENT Anaya Everett NP Work Phone: Start: 07-15-2016 End: 07-15-2016 Follow Up Appt 6 months Anaya Everett BOBBIN COLLECTOR Work Phone: Start: 07-15-2016 End: 07-23-2016 Nuclear stress test -Julio C Everett BOBBIN COLLECTOR Work Phone: Start: 07-15-2016 End: 07-15-2016 WEIGHT AND BALANCE CONTROL AGENT Anaya Everett BOBBIN COLLECTOR Work Phone: Start: 07-15-2016 End: 07-15-2016 Follow Up Appt 6 months Anaya Everett BOBBIN COLLECTOR Work Phone: Start: 07-15-2016 End: 07-23-2016 Nuclear stress test -Julio C Everett BOBBIN COLLECTOR Work Phone: Start: 12-11-2015 End: 12-11-2015 Follow [...] of Test: 08/30/2015 12:51:52; Heart Rate: 58; [place] Interval: 182; QRS: 104; QT Interval: 428; Corrected QT Interval (QTc): 425; P Wave [place]: 54; QRS Wave [place]: 48; T Wave [place]: 48; Blood Pressure: 162/80 [ECG DIAGNOSTIC STATEMENTS] Date of Test: 08/30/2015 12:51:52; Summary: Sinus Bradycardia WITHIN NORMAL LIMITS Nerissa Rodriguez DO Work Phone: Comment on above: sinus cristian - no acu te chg h/o cad on BB Start: 02-06-2015 End: 02-06-2015 WEIGHT AND BALANCE CONTROL AGENT Eliane Rodrigez PA-C Work Phone: Start: 02-06-2015 [...] PA-C Work Phone: Start: 02-06-2015 End: 02-06-2015 WEIGHT AND BALANCE CONTROL AGENT Eliane Rodrigez PA-C Work Phone: Start: 02-06-2015 [...] PA-C Work Phone: Start: 06-08-2013 End: 06-08-2013 WEIGHT AND BALANCE CONTROL AGENT Eliane Rodrigez PA-C Work Phone: Start: 06-08-2013 End: 06-08-2013 Follow Up Appt 6 months Eliane Rodrigez PA-C Work Phone: Start: 06-08-2013 End: 08-09-2014 Lipid 1996 panel - Serum or Plasma Eliane Rodrigez PA-C Work Phone: Start: 06-08-2013 End: 06-08-2013 WEIGHT AND BALANCE CONTROL AGENT Eliane Rodrigez PA-C Work Phone: Start: 06-08-2013 [...] Martin Gutierrez Work Phone: Comment on above: XVP-SDB-Jwo-Distal R CA w/ 3.5 x 30 mm, 3.0 x 12 mm, 3.5 x 24 mm [place] Stents 12/20/2008 Investigation of transfusion reaction Dr. Martin Gutierrez Work Phone: Microbial culture, routine D kimberley Gutierrez Work Phone: Urine culture Dr. Martin Gutierrez Work Phone: Urine culture Dr. Martin Gutierrez Work Phone: Plan of Treatment Date Care Activity Detail Author Start: 05-01-2025 [facility] Start: 09-28-2024 Patient discharge [facility] Start: 09-26-2024 Contact precautions [facility] Start: 09-26-2024 Respiratory secretion precautions [facility] Start: 09-26-2024 Following clinical pathway protocol [facility] Start: 09-26-2024 Assessment of risk of venous thromboembolism [facility] Start: 09-26-2024 Fall prevention [facility] Start: 09-26-2024 Incentive spirometry [facility] Start: 09-26-2024 Inhalation therapy procedure [facility] Start: 09-26-2024 Insertion of catheter into peripheral vein [facility] Start: 09-26-2024 Introduction of urinary catheter [facility] Start: 09-26-2024 Measuring intake and output [facility] Start: 09-26-2024 Oxygen therapy [facility] Start: 09-26-2024 Providing care according to standard [facility] Start: 09-26-2024 Provision of activity privileges [facility] Start: 09-26-2024 Referral to occupational therapist [facility] Start: 09-26-2024 Referral to service [facility] Start: 09-26-2024 Tobacco use cessation education [facility] Start: 09-26-2024 [facility] Start: 09-26-2024 Admission procedure [facility] Start: 11-29-2020 Following clinical pathway protocol [facility] Start: 07-27-2017 End: 07-27-2017 Appointment Appointment [facility] Work Phone: Start: 07-01-2017 End: 07-01-2017 Echocardiography Echocardiogram (complete) [facility] Work Phone: Start: 07-01-2017 End: 07-01-2017 Echocardiography Echocardiogram (complete) [facility] Work Phone: Start: 01-15-2017 End: 01-15-2017 Carotid duplex Carotid duplex [facility] Work Phone: Start: 01-15-2017 End: 07-01-2017 Follow Up Appt 6 months Follow Up Appt 6 months [facility] Work Phone: Start: 01-15-2017 End: 07-01-2017 MMM MMM [facility] Work Phone: Start: 01-15-2017 End: 01-15-2017 Patient encounter procedure Appointment [facility] Work Phone: Start: 01-15-2017 End: 01-15-2017 Carotid duplex Carotid duplex [facility] Work Phone: Start: 01-15-2017 End: 07-01-2017 Follow Up Appt 6 months Follow Up Appt 6 months [facility] Work Phone: Start: 01-15-2017 End: 07-01-2017 MMM MMM [facility] Work Phone: Start: 08-22-2016 End: 09-02-2016 *PTH (Parathyroid Hormone) *PTH (Parathyroid Hormone) [facility] Work Phone: Start: 08-22-2016 End: 09-04-2016 1,25-Dihydroxyvitamin D [Mass/volume] in Serum or Plasma *[id number] Vitamin D, 1, 25- DiHydroxy [facility] Work Phone: Start: 08-22-2016 End: 08-22-2016 Alkaline phosphatase (ALP) *ALK Alkaline Phosphatase, Serum [facility] Work Phone: Start: 08-22-2016 End: 09-02-2016 Calcium *Calcium, Total [facility] Work Phone: Start: 08-22-2016 End: 08-22-2016 Ct upper extremity w/o contrast material CT Upper Extremity [facility] Work Phone: Start: 08-22-2016 End: 09-02-2016 *PTH (Parathyroid Hormone) *PTH (Parathyroid Hormone) [facility] Work Phone: Start: 08-22-2016 End: 09-04-2016 1,25-Dihydroxyvitamin D [Mass/volume] in Serum or Plasma *[id number] Vitamin D, 1, 25- DiHydroxy [facility] Work Phone: Start: 08-22-2016 End: 08-22-2016 Alkaline phosphatase [Enzymatic activity/volume] in Serum or Plasma *ALK Alkaline Phosphatase, Serum [facility] [facility] Work Phone: Start: 08-22-2016 End: 09-02-2016 Calcium [Mass/volume] in Serum or Plasma *Calcium, Total [facility] Work Phone: Start: 08-22-2016 End: 08-22-2016 Ct upper extremity w/o contrast material CT Upper Extremity [facility] Work Phone: Start: 08-21-2016 End: 08-21-2016 Mri any jt upper extremity w/o contrast matrl MRI Joint Upper Extremity [facility] Work Phone: Start: 08-21-2016 End: 08-21-2016 Radex elbow complete minimum 3 views X-Ray, Elbow [facility] Work Phone: Start: 08-21-2016 End: 08-21-2016 Mri any jt upper extremity w/o contrast matrl MRI Joint Upper Extremity [facility] Work Phone: Start: 08-21-2016 End: 08-21-2016 Radex elbow complete minimum 3 views X-Ray, Elbow [facility] Work Phone: Start: 07-15-2016 End: 07-15-2016 [facility] Work Phone: Start: 07-15-2016 End: 07-15-2016 Follow Up Appt 6 months Follow Up Appt 6 months [facility] Work Phone: Start: 07-15-2016 End: 07-15-2016 Nuclear stress test -Lexiscan Nuclear stress test -Lexiscan [facility] Work Phone: Start: 07-15-2016 End: 07-15-2016 [facility] Work Phone: Start: 07-15-2016 End: 07-15-2016 Follow Up Appt 6 months Follow Up Appt 6 months [facility] Work Phone: Start: 07-15-2016 End: 07-15-2016 Nuclear stress test -Lexiscan Nuclear stress test -Lexiscan [facility] Work Phone: Start: 01-24-2016 Hemoglobin glycosylated a1c Hemoglobin Glyclated (HGB A1C) (52149) [facility] Work Phone: Start: 12-11-2015 End: 12-11-2015 Chest x-ray X-Ray, Chest, PA & Lateral [facility] Work Phone: Start: 12-11-2015 End: 12-11-2015 Follow Up Appt 6 months Follow Up Appt 6 months [facility] Work Phone: Start: 12-11-2015 End: 12-11-2015 MMM MMM [facility] Work Phone: Start: 12-11-2015 End: 07-14-2017 Chest x-ray X-Ray, Chest, PA & Lateral [facility] Work Phone: Start: 12-11-2015 End: 12-11-2015 Follow Up Appt 6 months Follow Up Appt 6 months [facility] Work Phone: Start: 12-11-2015 End: 12-11-2015 [facility] Work [facility]: Start: 09-26-2015 Hemoglobin glycosylated a1c Hemoglobin Glyclated (HGB A1C) (95642) [facility] Work Phone: Start: 08-30-2015 Procedure Education Eprescribed prescriptions (G8553) [facility] Work Phone: Start: 08-30-2015 Provider Instructions for Treatment [facility] Work Phone: Start: 08-30-2015 Hemoglobin glycosylated a1c Hemoglobin Glyclated (HGB A1C) (26183) [facility]; [facility] Work Phone: Start: 08-30-2015 Alpha-fetoprotein serum [id number] (77769) [facility]; [facility] Work Phone: Start: 08-30-2015 Thromboplastin time partial plasma/whole blood PTT (Activated Partial Thromboplastin Time) (98430) [facility]; [facility] Work Phone: Start: 08-30-2015 Prothrombin time PT (Prothrobim Time) (38125) [facility]; [facility] Work Phone: Start: 08-30-2015 25 hydroxy includes fractions if performed CALCIFIDIOL (23835) VIT D 25 [facility]; [facility] Work Phone: Start: 08-30-2015 Cyanocobalamin vitamin b-12 VITAMIN B-12 (CYANOCOBALAMIN) (56536) [facility]; [facility] Work Phone: Start: 08-30-2015 Urnls dip stick/tablet reagent auto microscopy URINALYSIS, W/ MICRO (96873) [facility]; [facility] Work Phone: Start: 08-30-2015 Urine albumin quantitative MICROALBUMIN: CREATININE RATIO (92740) AND (96611) [facility]; [facility] Work Phone: Start: 08-30-2015 Comprehensive metabolic panel METABOLIC PANEL, COMPREHENSIVE (27443) [facility]; [facility] Work Phone: Start: 08-30-2015 Assay of thyroid stimulating hormone tsh TSH (12072) [facility]; [facility] Work Phone: Start: 08-30-2015 Lipid panel LIPID PANEL (67738) [facility]; [facility] Work Phone: Start: 08-30-2015 Blood count complete auto&auto difrntl wbc CBC W/AUTO DIFF WBC (80857) [facility]; [facility] Work Phone: Start: 07-26-2015 Provider Instructions for Treatment [facility] Work Phone: Start: 07-26-2015 Cytp cerv/vag auto thin layer prep mnl screen Thin prep Pap (44642) (no STD testing) [facility]; [facility] Work Phone: Start: 05-29-2015 Hemoglobin glycosylated a1c Hemoglobin Glyclated (HGB A1C) (26584) [facility]; [facility] Work Phone: Start: 02-06-2015 End: 02-06-2015 *Hepatic Function Panel *Hepatic Function Panel [employer] Work Phone: Start: 02-06-2015 End: 02-06-2015 [facility] Work Phone: Start: 02-06-2015 End: 02-06-2015 Ecg routine ecg w/least 12 lds w/i&r EKG (In office) [facility] Work Phone: Start: 02-06-2015 End: 02-06-2015 Follow Up Appt 6 months Follow Up Appt 6 months [facility] Work Phone: Start: 02-06-2015 End: 02-06-2015 Lipid panel [AGGREGATE] *Lipid Profile CC PCP [facility] Work Phone: Start: 02-06-2015 End: 02-06-2015 [facility] Work Phone: Start: 02-06-2015 End: 02-06-2015 Ecg routine ecg w/least 12 lds w/i&r EKG (In office) [facility] Work Phone: Start: 02-06-2015 End: 02-06-2015 Follow Up Appt 6 months Follow Up Appt 6 months [facility] Work Phone: Start: 02-06-2015 End: 07-14-2017 Hepatic function 2000 panel - Serum or Plasma *Hepatic Function Panel [facility] Work Phone: Start: 02-06-2015 End: 07-14-2017 Lipid 1996 panel - Serum or Plasma *Lipid Profile CC PCP [facility] Work Phone: Start: 01-31-2015 Cyanocobalamin vitamin b-12 VITAMIN B-12 (CYANOCOBALAMIN) (89718) [facility]; [facility] Work Phone: Start: 01-29-2015 Procedure Education Eprescribed prescriptions (G8553) [facility]; [facility] Work Phone: Start: 01-29-2015 Provider Instructions for Treatment [facility] Work Phone: Start: 01-29-2015 Hemoglobin glycosylated a1c Hemoglobin Glyclated (HGB A1C) (51354) [facility]; [facility] Work Phone: Start: 01-29-2015 Cyanocobalamin vitamin b-12 VITAMIN B12 AND FOLATES (39783) [facility]; [facility] Work Phone: Start: 01-29-2015 Thromboplastin time partial plasma/whole blood PTT (Activated Partial Thromboplastin Time) (20559) [facility]; [facility] Work Phone: Start: 01-29-2015 Prothrombin time PT (Prothrobim Time) (61942) [facility]; [facility] Work Phone: Start: 01-29-2015 Alpha-fetoprotein serum [id number] (96114) [facility]; [facility] Work Phone: Start: 01-29-2015 25 hydroxy includes fractions if performed CALCIFIDIOL (41676) VIT D 25 [facility]; [facility] Work Phone: Start: 01-29-2015 Assay of thyroid stimulating hormone tsh TSH (84683) [facility]; [facility] Work Phone: Start: 01-29-2015 Blood count complete auto&auto difrntl wbc CBC W/AUTO DIFF WBC (29444) [facility]; [facility] Work Phone: Start: 01-29-2015 Lipid panel LIPID PANEL (81640) [facility]; [facility] Work Phone: Start: 01-29-2015 Comprehensive metabolic panel METABOLIC PANEL, COMPREHENSIVE (63829) [facility]; [facility] Work Phone: Start: 10-11-2014 Provider Instructions for Treatment [facility]; [facility] Work Phone: Start: 10-11-2014 Hepatic function panel HEPATIC FUNCTION PANEL (08916) [facility]; [facility] Work Phone: Comment on above: do in 2 months Start: 10-11-2014 Lipid panel LIPID PANEL (65528) [facility]; [facility] Work Phone: Comment on above: do in 2 months Start: 10-02-2014 Provider Instructions for Treatment [facility]; [facility] Work Phone: Start: 08-30-2014 Provider Instructions for Treatment [facility]; [facility] Work Phone: Start: 05-24-2014 End: 02-06-2015 *Hepatic Function Panel *Hepatic Function Panel [facility] Work Phone: Start: 05-24-2014 End: 02-06-2015 Lipid panel [AGGREGATE] *Lipid Profile CC PCP [facility] Work Phone: Start: 05-24-2014 End: 02-06-2015 Hepatic function 2000 panel - Serum or Plasma *Hepatic Function Panel [facility] Work Phone: Start: 05-24-2014 End: 02-06-2015 Lipid 1996 panel - Serum or Plasma *Lipid Profile CC PCP [facility] Work Phone: Start: 03-02-2014 End: 03-02-2014 *Hepatic Function Panel *Hepatic Function Panel [facility] Work Phone: Start: 03-02-2014 End: 08-09-2014 Follow Up Appt 6 months Follow Up Appt 6 months [facility] Work Phone: Start: 03-02-2014 End: 03-02-2014 Lipid panel [AGGREGATE] *Lipid Profile CC PCP [facility] Work Phone: Start: 03-02-2014 End: 08-09-2014 MMM MM [facility] Work Phone: Start: 03-02-2014 End: 08-09-2014 Follow Up Appt 6 months Follow Up Appt 6 months [facility] Work Phone: Start: 03-02-2014 End: 03-02-2014 Hepatic function 2000 panel - Serum or Plasma *Hepatic Function Panel [facility] Work Phone: Start: 03-02-2014 End: 03-02-2014 Lipid 1996 panel - Serum or Plasma *Lipid Profile CC PCP [facility] Work Phone: Start: 03-02-2014 End: 08-09-2014 MMM MMM [facility] Work Phone: Start: 10-28-2013 Patient Education Cough Medicines, Nonprescription: cough [facility]; [facility] Work Phone: Start: 10-28-2013 Provider Instructions for Treatment [facility]; [facility] Work Phone: Start: 06-08-2013 End: 08-09-2014 *Hepatic Function Panel *Hepatic Function Panel [facility] Work Phone: Start: 06-08-2013 End: 06-08-2013 WEIGHT AND BALANCE CONTROL AGENT WEIGHT AND BALANCE CONTROL AGENT [facility] Work Phone: Start: 06-08-2013 End: 06-08-2013 Follow Up Appt 6 months Follow Up Appt 6 months [facility] Work Phone: Start: 06-08-2013 End: 08-09-2014 Lipid panel [AGGREGATE] *Lipid Profile CC PCP [facility] Work Phone: Start: 06-08-2013 End: 06-08-2013 WEIGHT AND BALANCE CONTROL AGENT WEIGHT AND BALANCE CONTROL AGENT [facility] Work Phone: Start: 06-08-2013 End: 06-08-2013 Follow Up Appt 6 months Follow Up Appt 6 months [facility] Work Phone: Start: 06-08-2013 End: 08-09-2014 Hepatic function 2000 panel - Serum or Plasma *Hepatic Function Panel [facility] Work Phone: Start: 06-08-2013 End: 08-09-2014 Lipid 1996 panel - Serum or Plasma *Lipid Profile CC PCP [facility] Work Phone: Start: 12-09-2012 End: 06-08-2013 *Hepatic Function Panel *Hepatic Function Panel [facility] Work Phone: Start: 12-09-2012 End: 12-09-2012 Follow Up Appt 6 months Follow Up Appt 6 months [facility] Work Phone: Start: 12-09-2012 End: 06-08-2013 Lipid panel [AGGREGATE] *Lipid Profile [facility] Work Phone: Start: 12-09-2012 End: 12-09-2012 MMM MMM [facility] Work Phone: Start: 12-09-2012 End: 12-09-2012 Nuclear stress test -adenosine Nuclear stress test -adenosine [facility] Work Phone: Start: 12-09-2012 End: 12-09-2012 Follow Up Appt 6 months Follow Up Appt 6 months [facility] Work Phone: Start: 12-09-2012 End: 06-08-2013 Hepatic function 2000 panel - Serum or Plasma *Hepatic Function Panel [facility] Work Phone: Start: 12-09-2012 End: 06-08-2013 Lipid 1996 panel - Serum or Plasma *Lipid Profile [facility] Work Phone: Start: 12-09-2012 End: 12-09-2012 MMM MMM [facility] Work Phone: Start: 12-09-2012 End: 12-09-2012 Nuclear stress test -adenosine Nuclear stress test -adenosine [facility] Work Phone: Start: 07-28-2012 Patient Education Nutrition for Diabetics: Dining Out *: diet [facility]; [facility] Work Phone: Start: 07-28-2012 Provider Instructions for Treatment [facility]; [facility] Work Phone: Start: 07-01-2012 Provider Instructions for Treatment Reviewed [employer] Letter [facility]; [facility] Work Phone: Start: 05-05-2012 End: 05-05-2012 Follow Up Appt 6 months Follow Up Appt 6 months [facility] Work Phone: Start: 05-05-2012 End: 05-05-2012 Follow Up Appt 6 months Follow Up Appt 6 months [facility] Work Phone: Start: 04-29-2012 End: 12-15-2012 *Hepatic Function Panel *Hepatic Function Panel [facility] Work Phone: Start: 04-29-2012 End: 12-15-2012 Lipid panel [AGGREGATE] *Lipid Profile [facility] Work Phone: Start: 04-29-2012 End: 12-15-2012 Hepatic function 2000 panel - Serum or Plasma *Hepatic Function Panel [facility] Work Phone: Start: 04-29-2012 End: 12-15-2012 Lipid 1996 panel - Serum or Plasma *Lipid Profile [facility] Work Phone: Start: 03-25-2012 Patient Education Hypothyroidism: Brief Version *: hypothyroidism [facility] Work Phone: Start: 03-25-2012 Provider Instructions for Treatment [facility] Work Phone: Start: 03-25-2012 Assay of thyroid stimulating hormone tsh TSH (45531) [facility]; [facility] Work Phone: Start: 03-25-2012 Urine albumin quantitative MICROALBUMIN: CREATININE RATIO (89095) AND (14233) [facility]; [facility] Work Phone: Start: 03-25-2012 Comprehensive metabolic panel METABOLIC PANEL, COMPREHENSIVE (17259) [facility]; [facility] Work Phone: Start: 03-25-2012 Lipid panel LIPID PANEL (64398) [facility]; [facility] Work Phone: Start: 03-25-2012 Blood count manual cell count each CBC WITH MANUAL DIFF (04051) [facility]; [facility] Work Phone: Start: 01-19-2012 Assay of thyroid stimulating hormone tsh TSH (07534) [facility]; [facility] Work Phone: Start: 11-21-2011 Provider Instructions for Treatment Follow up if no improvement or if symptoms worsen [facility]; [facility] Work Phone: Start: 11-21-2011 25 hydroxy includes fractions if performed CALCIFEDIOL (30594) [facility]; [facility] Work Phone: Start: 11-19-2011 Provider Instructions for Treatment Reviewed Lab [facility]; [facility] Work Phone: Start: 11-19-2011 Extractable nuclear antigen antibody any method [id number] (24638) [facility]; [facility] Work Phone: Start: 11-19-2011 25 hydroxy includes fractions if performed CALCIFIDIOL (31081) VIT D 25 [facility]; [facility] Work Phone: Start: 11-19-2011 Cyanocobalamin vitamin b-12 VITAMIN B-12 (CYANOCOBALAMIN) (87915) [facility]; [facility] Work Phone: Start: 11-10-2011 Glucose quantitative blood xcpt reagent strip Glucose, PP/2 Hour (67218) [facility]; [facility] Work Phone: Start: 11-07-2011 Provider Instructions for Treatment [facility]; [facility] Work Phone: Start: 11-07-2011 Cyclic citrullinated peptide antibody CCP ANTIBODY (68104) [facility]; [facility] Work Phone: Start: 11-07-2011 Sedimentation rate rbc non-automated SED RATE ERYTHROCYTE (99957) [facility]; [facility] Work Phone: Start: 11-07-2011 Antinuclear antibodies rj RJ (ANTINUCLEAR ANTIBODY) (92894) [facility]; [facility] Work Phone: Start: 11-07-2011 Assay of thyroid stimulating hormone tsh TSH (59891) [facility]; [facility] Work Phone: Start: 11-07-2011 Blood count manual cell count each CBC WITH MANUAL DIFF (93889) [facility]; [facility] Work Phone: Start: 11-07-2011 C-reactive protein C-REACTIVE PROTEIN (41131) [facility]; [facility] Work Phone: Start: 11-07-2011 Rheumatoid factor quantitative RHEUMATOID FACTOR-QUANT (08932) [facility]; [facility] Work Phone: Start: 11-07-2011 Comprehensive metabolic panel METABOLIC PANEL, COMPREHENSIVE (41739) [facility]; [facility] Work Phone: Start: 11-04-2011 End: 11-04-2011 Follow Up Appt 6 months Follow Up Appt 6 months [facility] Work Phone: Start: 11-04-2011 End: 11-04-2011 Follow Up Appt 6 months Follow Up Appt 6 months [facility] Work Phone: Start: 10-06-2011 Provider Instructions for Treatment Follow up in 2 weeks [facility]; [facility] Work Phone: Start: 09-17-2010 Glucose quantitative blood xcpt reagent strip Glucose, PP/2 Hour (74329) [facility]; [facility] Work Phone: Start: 09-16-2010 Provider Instructions for Treatment [facility]; [facility] Work Phone: Start: 09-16-2010 Hepatic function panel HEPATIC FUNCTION PANEL (05757) [facility]; [facility] Work Phone: Start: 09-09-2010 Renal function panel Renal function Panel (52667) [facility]; [facility] Work Phone: Start: 09-09-2010 Culture bacterial quanttative colony count urine URINE BRAD CULTURE-BUDDY COL COUNT (46694) [facility]; [facility] Work Phone: Start: 09-09-2010 Patient Education Water in diet, brief version [facility]; [facility] Work Phone: Start: 09-09-2010 Provider Instructions for Treatment FOLLOW UP IN 1 WEEK [facility]; [facility] Work Phone: Start: 05-20-2010 Blood count manual cell count each CBC with manual diff (80709) [facility]; [facility] Work Phone: Comment on above: please do in ER Start: 05-20-2010 Fibrin dgradj products d-dimer quantitative D-Dimer (77256) [facility]; [facility] Work Phone: Comment on above: stat please do in ER Start: 05-20-2010 Provider Instructions for Treatment [facility]; [facility] Work Phone: Start: 04-25-2010 Provider Instructions for Treatment [facility]; [facility] Work Phone: Start: 04-25-2010 Cytp cerv/vag auto thin layer prep mnl screen Thin prep Pap (80854) [facility]; [facility] Work Phone: Start: 04-15-2010 Provider Instructions for Treatment Continue Current Prescription(s) [facility]; [facility] Work Phone: Start: 04-09-2010 Provider Instructions for Treatment FOLLOW UP TOMORROW [facility]; [facility] Work Phone: Start: 04-08-2010 Provider Instructions for Treatment [facility]; [facility] Work Phone: Start: 03-18-2010 Lipid panel LIPID PANEL (79017) [facility]; [facility] Work Phone: Start: 03-18-2010 Assay of thyroid stimulating hormone tsh TSH (99440) [facility]; [facility] Work Phone: Start: 03-18-2010 Urnls dip stick/tablet reagent auto microscopy URINALYSIS, W/ MICRO (55410) [facility]; [facility] Work Phone: Start: 03-18-2010 Urine albumin quantitative MICROALBUMIN: CREATININE RATIO (82021) AND (43237) [facility]; [facility] Work Phone: Start: 03-18-2010 Comprehensive metabolic panel METABOLIC PANEL, COMPREHENSIVE (46578) [facility]; [facility] Work Phone: Start: 03-18-2010 Blood count manual cell count each CBC WITH MANUAL DIFF (14463) [facility]; [facility] Work Phone: Start: 03-18-2010 Provider Instructions for Treatment [facility]; [facility] Work Phone: Start: 04-26-2009 Provider Instructions for Treatment [facility]; [facility] Work Phone: Start: 04-26-2009 Urnls dip stick/tablet rgnt auto w/o microscopy URINALYSIS W/O MICRO (42198) [facility]; [facility] Work Phone: Start: 04-26-2009 Assay of thyroid stimulating hormone tsh TSH (73476) [facility]; [facility] Work Phone: Start: 04-26-2009 Urine albumin quantitative MICROALBUMIN: CREATININE RATIO (69117) AND (39257) [facility]; [facility] Work Phone: Start: 04-26-2009 Comprehensive metabolic panel METABOLIC PANEL, COMPREHENSIVE (49871) [facility]; [facility] Work Phone: Start: 04-26-2009 Blood count manual cell count each CBC WITH MANUAL DIFF (36059) [facility]; [facility] Work Phone: Start: 04-26-2009 Hepatic function panel HEPATIC FUNCTION PANEL (50509) [facility]; [facility] Work Phone: Start: 04-26-2009 Lipid panel LIPID PANEL (83626) [facility] Work Phone: Start: 04-26-2009 Lipoprotein blood buddy numbers & subclasses LIPOPROTEIN, BLD, BY NMR (52051) [facility] Work Phone: Start: 2009 Provider Instructions for Treatment [facility] Work Phone: Start: 03-26-2009 Provider Instructions for Treatment [facility] Work Phone: Start: 12-12-2008 Provider Instructions for Treatment [facility] Work Phone: Start: 12-12-2008 Basic metabolic panel calcium total Metabolic Panel, Basic (62053) [facility] Work Phone: Comment on above: To be drawn December 21 Start: 11-22-2008 Provider Instructions for Treatment [facility] Work Phone: Start: 09-04-2008 Provider Instructions for Treatment [facility] Work Phone: Start: 11-05-2007 Fibrin dgradj products d-dimer quantitative D-Dimer (14719) [facility] Work Phone: Start: 11-05-2007 Blood count complete auto&auto difrntl wbc CBC, Platelets & Auto Diff (78394) [facility] Work Phone: CBC W Auto Different ial panel - Blood [facility] Work Phone: CBC W Auto Different ial panel - Blood [facility] CBC W Auto Different ial panel - Blood [facility] CBC W Auto Different ial panel - Blood [facility] CBC W Auto Different ial panel - Blood [facility] CT Chest [facility] Work Phone: CT Chest [facility] CT Chest [facility] Ferritin [Mass/volum e] in Serum or Plasma [facility] Work Phone: Ferritin [Mass/volum e] in Serum or Plasma [facility] Ferritin [Mass/volum e] in Serum or Plasma [facility] Ferritin [Mass/volum e] in Serum or Plasma [facility] Ferritin [Mass/volum e] in Serum or Plasma [facility] Iron and Iron bindin g capacity panel - Serum or Plasma [facility] Work Phone: Iron and Iron bindin g capacity panel - Serum or Plasma [facility] Iron and Iron bindin g capacity panel - Serum or Plasma [facility] Iron and Iron bindin g capacity panel - Serum or Plasma [facility] Iron and Iron bindin g capacity panel - Serum or Plasma [facility] MG Breast - bilatera l Screening [facility] Work Phone: MG Breast - bilatera l Screening [facility] Patient referral [facility] Work Phone: Reticulocyte count [facility] Reticulocyte count [facility] Reticulocyte count [facility] Vitamin B12 measurement [facility] Work Phone: Vitamin B12 measurement [facility] [...] Immunizations Immunization Date Immunization Notes Care Provider [facility] 05-30-2020 influenza, injectabl e, quadrivalent, preservative free Dr. Martin Gutierrez Work Phone: [facility] 05-30-2020 influenza, seasonal, injectable Dr. Martin Gutierrez Work Phone: [facility] 04-26-2009 influenza, seasonal, injectable Nerissa Ismael DO Work Phone: [facility] Work Phone: Comment on above: Given in Right delto idLot # [id number] 12/31CDH 04-26-2009 tetanus toxoid, reduced diphtheria toxoid, and acellular pertussis vaccine, adsorbed Nerissa Ismael DO Work Phone: [facility] Work Phone: Comment on above: given in Left Deltoi dLot #[id number] 07-28-11DH 06-09-2008 influenza, seasonal, injectable Nerissa Ismael DO Work Phone: [facility] Work Phone: Payers Date Payer Category Payer Self-pay [id number] 2017 Unknown [id number] 2015 Unknown [id number] 1960 Unknown [id number] 2.16.8 [id number] Medicare MEDICARE PART A B [id number] Unknown Unknown [id number] Unknown [id number] 2.16.8 40.1.115176.3.579.2.462 Unknown [id number] 2.16.8 40.1.201673.3.579.2.462 Unknown [id number] 2.16.8 40.1.584191.3.579.2.462 Unknown [id number] 2.16.8 40.1.443585.3.579.2.462 Unknown [id number] 2.16.8 40.1.364707.3.579.2.462 Unknown [id number] 2.16.8 40.1.305684.3.579.2.462 Unknown [id number] 2.16.8 40.1.581808.3.579.2.462 Unknown [id number] 2.16.8 40.1.617305.3.579.2.462 Unknown [id number] 2.16.8 40.1.738955.3.579.2.462 Unknown [id number] 2.16.8 40.1.955664.3.579.2.462 Unknown [id number] 2.16.8 40.1.772732.3.579.2.462 Unknown [id number] 2.16.8 40.1.315563.3.579.2.462 Unknown [id number] 2.16.8 40.1.776781.3.579.2.462 Unknown [id number] 2.16.8 40.1.408557.3.579.2.462 Unknown [id number] 2.16.8 40.1.855294.3.579.2.462 Unknown [id number] 2.16.8 40.1.694955.3.579.2.462 Unknown [id number] 2.16.8 40.1.965537.3.579.2.462 Unknown [id number] 2.16.8 40.1.593464.3.579.2.462 Unknown [id number] 2.16.8 40.1.807747.3.579.2.462 Unknown [id number] 2.16.8 40.1.327654.3.579.2.462 Social History Date Type Detail Facility Caffeine Use Caffeine Use [facility] Work Phone: Comment on above: 1-3 cups qd Inactive , Lives with spouse 1/2 pack day >30 yrs 11/19/11 Start: 07-26-2021 End: 10-20-2022 Tobacco smoking status MIIS Unknown if ever smoked [facility] Start: 01-02-2021 None [facility] Start: 01-02-2021 Homeless [facility] Start: 11-28-2020 Cigarettes [facility] Start: 1960 Sex Assigned At Female [facility] Start: 09-26-2024 End: 09-27-2024 Tobacco smoking status NHIS Smokes tobacco daily (finding) [facility] Goals Date Patient Goal Desired Activity /State Functional Status Date Assessment Result Facility 09-28-2024 Functional status Chair [facility] Work Phone: Mental Status Date Assessment Result Facility 09-28-2024 Cognitive function Voice/Name [facility] Work Phone: 01-13-2024 Cognitive function Voice/Name [facility] Work Phone: 10-10-2021 Cognitive function Voice/Name [facility] Work Phone: 02-25-2019 Cognitive function Mood Descript ion Appropriate;Calm;Relaxed [facility] Work Phone: Clinical Notes 01-15-2017 to 05-01-2025 Note Date & Type Note Facility 05-01-2025 Progress note [facility] 05-01-2025 Progress note Note Date/Time May 01, 2025 3:55pm [facility] ealt System [facility] [address] [place] [id number] OFFICE VISIT Date of Service: 05/01/25 1534 MR#: [id number] Acct: [id number] Name: ANGELES LARIOS Rep #: [id number] : 1960 From: Simon campbell MD Age/Sex: 65/F Location: [facility] [place] [facility] Status: Signed HPI Subjective Date of Service [...] capsule studies were done April 2021 at [facility], according to patient 2 colonic vascular [...] stenosis Dysarthria Atherosclerosis of coronary artery of mentasta heart without angina pectoris Essential (primary) hypertension [...] History Father , at age 38, from [place] Myocardial infarction cardiomopathy Mother Atrial fibrillation Hypertension [...] PO DAILY pain 5 05/01/25 History vitamins A,C,E-cueo-ephlwp 4,296 1 cap PO DAILY supple ment [...] no focal motor deficits Coordination / Balance: oltoua-cg-kqdy test normal Speech: speech normal Gait (Neuro): [...] long-term) 1 -2 tablet daily as tolerated retirement. #2 Supplement oral iron with IV infusion [...] watch. #5 Continue follow-up with GI at [facility]. Impression and recommendations discussed. Follow-up in 6 months, sooner if she becomes symptomatic. She was seen with her son. Simon Ulloa MD [place], [facility] Divisions of Medical Oncology & Hematology Department of Internal Medicine [place] [address] This note was generated using a voice [...] applicable) CC: Dr. Martin Gutierrez MD ~ [facility] Work Phone: 1(782) 304-553505-07-2025 Discharge summary Author Pardeep Betancur [facility] Note Date/Time December 28, 2024 3:21pm [facility] Physical Therapy [facility] [address] [place] [address] / REHABILITATION SERVICES DISCHARGE SUMMARY MR#: [id number] Acct: [id number] Name: ANGELES LARIOS Rep #: [id number] : 1960 64 From: Cert. CAPRI MejiasT, OCS Referring Dr.: Dr. Armando Ga MD Status: REG RCR Insurance: [facility] [id number] SELF PAY INSURANCE Patient Information Patient Information: [...] Dr. Martin Gutierrez MD ~ JLHosea Signed [facility] Work Phone: 1(176) 860-510205-07-2025 Discharge summary [facility] Physical Therapy [facility] [place] [address] / REHABILITATION SERVICES DISCHARGE SUMMARY MR#: [id number] Acct: [id number] Name: ANGELES LARIOS Rep #: [id number] : 1960 64 From: Cert. KASEY Mejias, NIGEL Referring Dr.: Dr. Armando Ga MD Status: REG [facility] Insurance: [facility] [id number] SELF PAY INSURANCE Patient Information Patient Information: [...] Dr. Martin Gutierrez MD ~ JLA Signed [facility]02-05-2025 [facility] Medical Records Department [address] [place] [address] Discharge Summary 09/28/24 0954 MR#: [id number] Acct: [id number] Name: ANGELES LARIOS Rep #: [id number] : 1960 64 From: Scott Mcneal MD PCP: Dr. Martin Gutierrez MD Status:ADM IN Location: [place] [address] Providers Date of Admission: 09/26/24 Date of [...] 100 mg PO DAILY pain 09/26/24 vitamins A,C,J-lbch-uimgzp 4,296 mcg-226 mg-90 mg capsule (PreserVision AREDS) [...] 83.2 H, Lymph % (Auto) 8.5 L, [place] % (Auto) 7.6, Eos % (Auto) 0.0, Baso % (Auto) 0.2, Absolute Neuts (auto) 5.5, Absolute Lymphs (auto) 0.56 L, Nucleated RBC % 0, Sodium 138, Potassium 4.2, Chloride 105, Carbon Dioxide 27.0, Anion Gap 6, BUN 20 H, Creatinine 0.51 L, Estim Creat Clear Calc 76.35, Est GFR (MDRD) Af Amer 154, Est GFR (MDRD) Non-Af 127, BUN/Creatinine (more content notincluded)...[facility]02-03-2025 Evaluation note* Diagnosis Onset Date Resolution Status Admit Date Hypoxia resolved September 26, 2024 7:26pm Influenza A resolved September 26, 2024 7:26pm Iron deficiency anemia due t o chronic blood loss chronic September 10:07am Macrocytosis chronic September 10:07am Chronic GI bleeding chronic Febru timo 2024 10:15am Iron deficiency anemia deleted Fe bruary 2024 10:15am [facility] Work Phone: 1(262) 671-190002-24-2022 NoteHNO ID: [id number] Author: Leonard Urena MD Service: ? Author [...] enteroscopy. 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 Has been getting weekly infusions x 3 [...] or pale stool. She has not contacted [facility] for consideration of double-balloon enteroscopy. We gave her this information back in July 2021. She says she lost the information and never followed up. PAST MEDICAL HISTORY Diagnosis Date - Acquired hypothyroidism 05/10/2018 On levothyroxine - Coronary artery disease involving mentasta coronary artery of mentasta heart without angina pectoris 06/27/2017 ASA, plavix - CVA (cerebral vascular accident) ([facility]) 06/2012 - Embolus of femoral artery ([facility]) 06/25/2017 on right - Episode of recurrent major depressive disorder ([facility]) 05/10/2018 Duloxetine,wellbutrin, varenicline - Essential [...] apnea) 05/10/2018 - PVD (peripheral vascular disease) ([facility]) 05/10/2018 - Snoring PAST SURGICAL HISTORY Procedure Laterality Date - APPENDECTOMY 1998 - COLONOSCOP W/ OR W/O BRSH SPEC 03/10/2021 - EGD W/O OR W/BRUSH/WASH 03/10/2021 - INSERT CATH,ART,PERCUT,SHORTTERM 10/13/2012 RIGHT - PAST SURGICAL HISTORY OF 2008 cardiac stents x 3 placed - PAST SURGICAL HISTORY OF 06/25/2017 Rt [employer] embolectomy - THROMBOENDARTECTMY NECK,NECK INCIS 10/13/2012 LEFT [...] No chest pain NEUROLOG (more content not included)...[facility]11-22-2021 NoteHNO ID: [id number] Author: Hank Brown MD Service: Vascular Surgery Author Type: Physician Type: Progress Notes Filed: 07/24/2021 8:19 AM Note Text: NAME: ANGELES LARIOS CLINIC NO: [id number] DATE OF SERVICE: 07/15/2021 DATE OF : 1960 She has had no new events. She has had no strokes, ministrokes or amaurosis fugax. Her carotid duplex still shows 60-79% on the right and widely patent on the left. Impression/Plan: Otherwise, she is doing well and we will plan on checking her again in one year's time. Hank Brown M.D. SPL/089 Audio #: [id number] Date Dictated: 07/19/2021 12:23:30 Date Typed: 07/23/2021 09:30:40 Date Revised:[facility]11-22-2021 NoteHNO ID: [id number] Author: Hank Brown MD Service: ? Author [...] embolic events. [facility] V[facility] Thoracic [place] DEPARTMENT OF VASCULAR SURGERY OUTPATIENT VISIT DATE [...] artery disease) - Coronary artery disease involving mentasta coronary artery of mentasta heart without angina pectoris 06/27/2017 ASA, plavix - CVA (cerebral vascular accident) ([facility]) 06/2012 - Embolus of femoral artery ([facility]) 06/25/2017 on right - Episode of recurrent major depressive disorder ([facility]) 05/10/2018 Duloxetine,wellbutrin, varenicline - Essential [...] apnea) 05/10/2018 - PVD (peripheral vascular disease) ([facility]) 05/10/2018 - Snoring PAST SURGICAL HISTORY Procedure Laterality Date - APPENDECTOMY 1998 - COLONOSCOP W/ OR W/O BRSH SPEC 03/10/2021 - EGD W/O OR W/BRUSH/WASH 03/10/2021 - INSERT CATH,ART,PERCUT,SHORTTERM 10/13/2012 RIGHT - PAST SURGICAL HISTORY OF 2008 cardiac stents x 3 placed - PAST SURGICAL HISTORY OF 06/25/2017 Rt [employer] embolectomy - THROMBOENDARTECTMY NECK,NECK INCIS 10/13/2012 LEFT [...] antegrade flow no (more content not included)... [facility]10-22-2021 NoteHNO ID: [id number] Author: Leonard Urena MD Service: ? Author [...] artery disease) - Coronary artery disease involving mentasta coronary artery of mentasta heart without angina pectoris 06/27/2017 ASA, plavix - CVA (cerebral vascular accident) ([facility]) 06/2012 - Embolus of femoral artery ([facility]) 06/25/2017 on right - Episode of recurrent major depressive disorder ([facility]) 05/10/2018 Duloxetine,wellbutrin, varenicline - Essential [...] apnea) 05/10/2018 - PVD (peripheral vascular disease) ([facility]) 05/10/2018 - Snoring PAST SURGICAL HISTORY Procedure Laterality Date - APPENDECTOMY 1998 - COLONOSCOP W/ OR W/O BRSH SPEC 03/10/2021 - EGD W/O OR W/BRUSH/WASH 03/10/2021 - INSERT CATH,ART,PERCUT,SHORTTERM 10/13/2012 RIGHT - PAST SURGICAL HISTORY OF 2008 cardiac stents x 3 placed - PAST SURGICAL HISTORY OF 06/25/2017 Rt [employer] embolectomy - THROMBOENDARTECTMY NECK,NECK INCIS 10/13/2012 LEFT [...] URINARY: No dark ur (more content not included)...[facility]08-24-2021 NoteHNO ID: [id number] Author: Leonard Urena MD Service: ? Author [...] pale stool. 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 Gutierrez. She has a history of anemia and has been on iron supplementation. She has fatigue and intermittent nausea. EGD in 03/10/[address] Charley De La Fuente in [place]: Normal Biopsies were not done Colonoscopy 03/10/2021 [...] artery disease) - Coronary artery disease involving mentasta coronary artery of mentasta heart without angina pectoris 06/27/2017 ASA, plavix - CVA (cerebral vascular accident) ([facility]) 06/2012 - Embolus of femoral artery ([facility]) 06/25/2017 - Episode of recurrent major depressive disorder ([facility]) 05/10/2018 Duloxetine,wellbutrin, varenicline - Essential [...] apnea) 05/10/2018 - PVD (peripheral vascular disease) ([facility]) 05/10/2018 - Snoring PAST SURGICAL HISTORY Procedure Laterality Date - APPENDECTOMY 1998 - COLONOSCOP W/ OR W/O BRSH SPEC 03/10/2021 - EGD W/O OR W/BRUSH/WASH 03/10/2021 - INSERT CATH,ART,PERCUT,SHORTTERM 10/13/2012 RIGHT - PAST SURGICAL HISTORY OF 2008 cardiac stents x 3 placed - PAST SURGICAL HISTORY OF 06/25/2017 Rt [employer] embolectomy - THROMBOENDARTECTMY NECK,NECK INCIS 10/13/2012 LEFT [...] CARDIOVASCULAR: No chest pain (more content not included)...[facility]08-24-2021 NoteHNO ID: [id number] Author: Bonifacio Copeland MD Service: ? Author [...] artery disease) - Coronary artery disease involving mentasta coronary artery of mentasta heart without angina pectoris 06/27/2017 ASA, plavix - CVA (cerebral vascular accident) ([facility]) 06/2012 - Embolus of femoral artery ([facility]) 06/25/2017 - Episode of recurrent major depressive disorder ([facility]) 05/10/2018 Duloxetine,wellbutrin, varenicline - Essential [...] apnea) 05/10/2018 - PVD (peripheral vascular disease) ([facility]) 05/10/2018 - Snoring PAST SURGICAL HISTORY Procedure Laterality Date - APPENDECTOMY 1998 - COLONOSCOP W/ OR W/O BRSH SPEC 03/10/2021 - EGD W/O OR W/BRUSH/WASH 03/10/2021 - INSERT CATH,ART,PERCUT,SHORTTERM 10/13/2012 RIGHT - PAST SURGICAL HISTORY OF 2008 cardiac stents x 3 placed - PAST SURGICAL HISTORY OF 06/25/2017 Rt [employer] embolectomy - THROMBOENDARTECTMY NECK,NECK INCIS 10/13/2012 LEFT [...] Eyes: Normal sclera Assess (more content not included)...[facility]05-25-2017 Fall risk [id number]/25[facility] Work Phone: Evaluation note* Diagnosis Onset Date Resolution Status Iron deficiency anemia due to chronic blood loss chronic Macrocytosis chronic Iron deficiency anemia due to chronic blood loss chronic Macrocytosis [facility] Work Phone: Evaluation note* Diagnosis Onset Date Resolution Status Iron deficiency anemia due to chronic blood loss chronic Macrocytosis [facility] Work Phone: Evaluation note* Diagnosis Onset Date Resolution Status Iron deficiency anemia due to chronic blood loss chronic Macrocytosis chronic BMI 32.0-32.9,adult acute Sleep apnea acute Unintentional weight loss ac [place] Nicotine dependence chronic [facility] Work Phone: Evaluation noteNo assessment information available [facility] Work Phone: Evaluation note* Diagnosis Onset Date Resolution Status Admit Date Iron deficiency anemia due t o chronic blood loss chronic April 2:38pm Macrocytosis chronic April 2:38pm Chronic GI bleeding chronic Septe mb2024 2:45pm Iron deficiency anemia deleted Se pt2024 2:45pm [facility] Work Phone: Instructions* Name Dates Details How to access [employer] Indication:Abnormal glucose tolerance test Start:30-Aug-2015 Instruction Type:Patient Education How to access [employer] online - Detail Indication:Abnormal glucose tolerance test [...] for referral (narrative)No reason for referral information available[facility] Work Phone: Summary Purpose Family History No [...] Yes March 09, 2021 12:10am Power of Block Saw Operator Yes March 09 12:10am Advance Directive Response Recorded Date/ Time Advance Directives No December 12 10:01am Living Will Yes March 08, 2021 11:10pm Power of Block Saw Operator Yes March 08 11:10pm Advance Directive Response Recorded Date/ Time Advance Directives on File No February 25, 2019 1:43pm Living Will No February 25, 2019 1 :43pm Do you have a Healthcare Power of Block Saw Operator? No February 25, 2019 1:43pm Living Will Yes September 26 9:40pm Do you have a Healthcare Power of Block Saw Operator? Yes September 26, 2024 9:40pm Name of Medical Power of Block Saw Operator - DORI September 26, 2024 9:40pm Advance Directives No December 12 020 11:01am Advance Directive Response Recorded Date/ Time Advance Directives on File No February 25, 2019 1:43pm Living Will No February 25, 2019 1 :43pm Do you have a Healthcare Power of Block Saw Operator? No February 25, 2019 1:43pm Advance [...] section and content) DATE CREATED AUTHOR 02/16/2018 [facility] DATE CREATED AUTHOR AUTHOR'S ORGANIZ ATION 09/16/2020 [facility] DATE CREATED AUTHOR AUTHOR'S ORGANIZ ATION 10/06/2021 [facility] DATE CREATED AUTHOR AUTHOR'S ORGANIZ ATION 01/25/2022 [facility] DATE CREATED AUTHOR AUTHOR'S ORGANIZ ATION 05/07/2025 [facility] Goals (unrecognized section and content) Goals may [...] Provider, Referring Provider Active Ifrah Sommer NP, BOBBIN COLLECTOR-C Attending Provider Active Team Status: Active Member Role Status Dates Dr. Martin Gutierrez MD Primary Care Provrosemary karli, Family Provider, Referring Provider Active Dr. Simon Ulloa MD Attending Provider Active Team Status: Inactive Member Role Status Dates Dr. Martin Gutierrez MD Primary Care Provider, Attending Provider Active Team Status: Inactive Member Role Status Dates Dr. Martin Gutiererz MD Primary Care Provi karli, Attending Provider, [...] BE BASED ON THE PRIMARY CLINICAL RECORDS. [employer] provides no warranty or guarantee of the accuracy or completeness of information in this document.
--- OUTSIDE RECORDS SUMMARY | 2025-05-26 00:59 | XMS RPT_ITS | CCD ---
Author Organization [facility] Care Team Providers Care Reference Librarian Name Role Phone Manda, RN, Mena Taylor Unavailable Unavailabl e MIGUEL, CELINE Unavailable Unavailable MIGUEL, CELINE Unavailable Unavailable AMI ROSENK A Unavailable Unavailable NELY CALZADA Unavailable Unavailable ISMAELCLIFTON BROWN Unavailable Unavailable MATT MARTIN-CHI Unavailable Unavailable MIGUEL, CELINE Unavailable Unavailable PROVIDER, UNKNOWN Attending Unavailable PROVIDER, UNKNOWN Admitting Unavailable Ismael DO Nerissa Unavailable [phone] AttReginald palumboa Unavailable [facility] OFFICE, Senait Chau Unavailable Grace RN, [...] Dr. Martin Gutierrez Chi Primary Care Provider [phone] Dr. Efrain Samuel Attending Provider Dr. Martin Gutierrez Chi Referring Provider Dr. Simon Ulloa Attending Provider Matt, Dr. Martin Perdue Primary Care Provider Dr. Martin Gutierrez Chi Primary Care Provider Matt, Dr. Martin Perdue Referring Provider Isckarus, Dr. Montes Attending Provider Matt, Dr. Martin Perdue Primary Care Provider Matt, Dr. Martin Perdue Referring Provider Isckar, Dr. Montes Attending Provider Sommer VACCINES SOLUTIONS SPECIALIST, VACCINES SOLUTIONS SPECIALIST-C Ifrah Attending Provider Matt, Dr. Martin Perdue Primary Care Provider Matt, Dr. Martin Perdue Referring Provider Isckarus, Dr. Montes Attending Provider Matt, Dr. Martin Perdue Primary Care Provider Matt, Dr. Martin Perdue Referring Provider Isckarus, Dr. Montes Attending Provider Matt , Dr. Martin Perdue Primary Care Provider Sara JUÁREZ, Dr. Eller Emergency Provider [phone] Lucia FAROOQ, Dr. Esperanza Chang Admit Provider [...] Unavailable Matt, Martin Chi Referring Unavailable Gino VACCINES SOLUTIONS SPECIALIST, Margi Attending Unavailable Matt, Martin Chi Primary Care Unavailable Gino VACCINES SOLUTIONS SPECIALIST, Margi Referring Unavailable Matt, Martin Chi Primary [...] Matt, Martin Chi Primary Care Unavailable Gino VACCINES SOLUTIONS SPECIALIST, Margi Attending Unavailable Matt, Martin Chi Attending [...] Matt, Martin Chi Primary Care Unavailable Gino VACCINES SOLUTIONS SPECIALIST, Margi Attending Unavailable Gino VACCINES SOLUTIONS SPECIALIST, Margi Referring Unavailable Matt, Martin Chi Primary [...] Drug Allergy 12-10-19 13 Severe muscle aches [facility] Work Phone: (20 sources) codeine; Translations: [CODEINE] Drug Allergy 01-10-20 11 GI upset, Other [facility] Work Phone: Comment on above: PT REPORTS GOING TO SLEEP AND HAS HARD TIME WAKING UP (20 sources) Hmg-Coa Reductase Inhibitors (Statins); Translations: [STATINS] allergy to substance 06-08-20 13 mylagias [facility] Work Phone: (2 sources) buPROPion; Translations: [BUPROPION HCL] Drug Allergy 09-08-19 06 [facility] Repository (1 source) Hmg-Coa Reductase Inhibitors (Statins); Translations: [[id number] REDUCTASE INHIBITORS] Propensity to adverse reactions (disorder) [facility] Repository (1 source) Opioid Agonists; Translations: [OPIOID ANALGESICS] Propensity to adverse reactions to drug (disorder) 09-08-19 06 [facility] Repository (13 sources) atorvastatin Drug Allergy 11-07-19 22 Other [facility] Comment on above: unable to walk (1 source) atorvastatin Drug Allergy 05-01-20 [facility] Repository Medications Current Medications Medication Drug Class(es) Dates Sig (Normalized) Sig (Original) acetaminophen 500 mg oral tablet (13 sources) Start: 03-09-2021 take 2 tablets by mouth every six hours as needed for headache Acetaminophen (Tylenol Extra Strength) 500 mg Tablet Active 1000 mg PO EVERY 6 HOURS as needed for Headache March 09, 2021 12:00am [id number] actuat albuterol 0.09 mg/actuat metered dose [...] TABS One tablet by mouth daily ASPIRIN [id number] Eliane Rodrigez PA-C End: 09-16-2010 take 1 [...] Start: 01-09-2011 take 1 capsule by mo [facility] twice daily CYMBALTA, 30MG (Oral Capsule Delayed Release Particles) [address] Part bid for 30 days Quantity: 60 {Capsule} Refills: 4 Ordered: 23-Jan-2016 Nerissa Rodriguez DO, DO, Kathleen Start : 23-Jan-2016 Active Start: 01-09-2011 [facility] CY[facility]TA 60 MG CPEP One tablet by mouth twice daily DULOXETINE HCL [id number] Efrain Samuel MD famotidine 40 mg oral [...] One tablet by mouth daily LEVOTHYROXINE SODIUM [id number] Efrain Samuel MD nitroglycerin 0.4 mg sublingual [...] 5 min up to 3 X NITROGLYCERIN [id number] Efrain Samuel MD Start: 01-09-2011 NITROGLYCERIN 0.4 MG SUBL 1 tablet under the tongue every 5 minutes times 3 as needed for chest pain. NITROGLYCERIN [id number] Anaya Everett VACCINES SOLUTIONS SPECIALIST rosuvastatin calcium 40 mg oral tablet (20 [...] 2017 1:00am November 13, 2017 10:09am Vitamins A,C,C-Plha-Vhmftj (Preservision Areds) 4,296 mcg-226 mg-90 mg capsule [...] Comments: thirty Comment on above: twentycalled to [facility] art thirty acetic acid 20 mg/ml [...] One tablet by mouth twice daily APIXABAN [id number] Mena Holman RN atorvastatin 40 mg oral tablet (20 sources) HMG-CoA Reductase Inhibitor Start: 07-15-2016 End: 01-15-2017 take 1 tablet by mouth once daily ATORVASTATIN CALCIUM 40 MG TABS One tablet by mouth daily ATORVASTATIN CALCIUM [id number] Anaya E Karlos WING Start: 05-05-2012 End: 12-09-2012 take 1 tablet by mouth once daily LIPITOR 80 MG TABS One tablet by mouth daily ATORVASTATIN CALCIUM [id number] Efrain Samuel MD Start: 04-26-2009 End: 09-16-2010 [...] 40 {Capsule} Refills: 0 Ordered: 25-Apr-2010 Janay dEwards RN Start : 11-Apr-2010 Inactive clopidogrel 75 [...] : 12-Dec-2008 Inactive Dextromethorphan (1 source) Uncompetitive T-nnoaqb-N-aspartat e Receptor Antagonist, Sigma-1 Agonist Start: 10-28-2013 [...] 1 capsule by mouth every week ERGOCALCIFEROL, [id number] (Oral Capsule) 2 (two) Capsule weekly x4 [...] October 14, 2017 10:41am lactobacillus rhamnosus gg [id number] unt oral capsule (1 source) Start: 11-21-2011 End: 12-05-2011 take 1 capsule by mouth twice daily ISAHLLE, 10B CELL (Oral Capsule) 1 Capsule bid [...] TABS One tablet by mouth daily LISINOPRIL [id number] Eliane Rodrigez PA-C Start: 01-09-2011 take 1 tablet by lucia th once daily LISINOPRIL 5 MG TABS One tablet by mouth daily LISINOPRIL [id number] Efrain Samuel MD LORazepam 1 mg oral [...] daily METFORMIN HCL ER (OSM) 500 MG [id number] One tablet by mouth daily METFORMIN HCL [id number] Efrain Smauel MD metoprolol tartrate 50 mg oral tablet [...] take ASA 30 mins before NIACIN (ANTIHYPERLIPIDEMIC) [id number] Tracy Valencia Start: 01-09-2011 End: 11-04-2011 take 1 tablet by mouth at bedtime NIASPAN 500 MG CR-TABS One tablet by mouth at bedtime, take ASA 30 mins before NIACIN (ANTIHYPERLIPIDEMIC) [id number] Tracy Valencia omeprazole 40 mg delayed release [...] CPDR One tablet by mouth daily OMEPRAZOLE 13909012706 Efrain Samuel MD phenazopyridine hydrochlorid e 100 [...] mouth twice daily RED YEAST RICE EXTRACT [id number] Eliane Rodrigez PA-C simvastatin 40 mg oral tablet (20 sources) HMG-CoA Reductase Inhibitor Start: 12-09-2012 End: 06-08-2013 take 1 tablet by mouth once daily SIMVASTATIN 40 MG TABS One tablet by mouth daily SIMVASTATIN [id number] Efrain Samuel MD Start: 01-09-2011 End: 07-01-2012 [...] Two tablets by mouth daily VARENICLINE TARTRATE [id number] Anaya Everett VACCINES SOLUTIONS SPECIALIST vitamin b12 1 mg/ml injectable solution (1 [...] (20 sources) Start: 12-11-2015 End: 07-15-2016 take 75893 [IU] by mouth once daily VITAMIN D 1000 UNIT TABS 10,000 IU per day (OTC), One tablet by mouth daily CHOLECALCIFEROL [id number] Anaya Everett NP Start: 12-11-2015 take 1 tablet by lucia th once daily VITAMIN D 1000 UNIT TABS 10,000 IU per day (OTC), One tablet by mouth daily CHOLECALCIFEROL [id number] Efrain Samuel MD Start: 12-11-2015 End: 07-15-2016 take 1 tablet by mouth once daily VITAMIN D 1000 UNIT TABS 10,000 IU per day (OTC), One tablet by mouth daily CHOLECALCIFEROL [id number] Anaya Everett NP Start: 12-11-2015 take 1 tablet by lucia th once daily VITAMIN D 1000 UNIT TABS 10,000 IU per day (OTC), One tablet by mouth daily CHOLECALCIFEROL [id number] Efrain Samuel MD Start: 12-11-2015 End: 07-15-2016 take 1 tablet by mouth once daily VITAMIN D 1000 UNIT TABS 10,000 IU per day (OTC), One tablet by mouth daily CHOLECALCIFEROL [id number] Anaya Everett NP warfarin sodium 5 mg [...] (Unsp spec) [#/Vol] 0.67 10*3/uL Low 0.83-4.51 [facility] Absolute neutrophil countOrd ered By: Simon Ulloa on 05-01-2025 Neutrophils (Bld) [#/Vol] 3.7 10*3/uL 2.0-7.7 [facility] Automated lymphocyte count a s percentage of total leukocytesOrdered By: Simon Garnerarron on 05-01-2025 Lymphocytes/100 WBC Auto (Unsp spec) 12.9 % Low 19-41 [facility] Basophil percentageOrdered B y: Simon Garnerarron on 05-01-2025 Basophils/100 WBC (Bld) 0.8 % 0-[address] [facility] CBC W/Diff, Automatedon Absolute Lymph 0.67 X10 3/uL Low 0.83-4.51 [facility] Comment on above: Performed By: #### L 501.2300, L500.2500, L501.5200, L100.0100 #### [facility] Laboratory [address] [place], [address] Absolute Neut 3.7 X10 3/uL Normal 2.0-7.7 [facility] Comment on above: Performed By: #### L 501.2300, L500.2500, L501.5200, L100.0100 #### [facility] [address] [place], [address] Basophils/100 WBC (Bld) 0.8 % Normal 0-[address] [facility] Comment on above: Performed By: #### L 501.2300, L500.2500, L501.5200, L100.0100 #### [facility] [address] [place], [address] Eosinophils/100 WBC (Bld) 0.6 % Normal 0-5 [facility] Comment on above: Performed By: #### L 501.2300, L500.2500, L501.5200, L100.0100 #### [facility] [address] [place], [address] Erythrocyte distribution width (RBC) [Ratio] 14.0 % Normal 11.6-14.6 [facility] Comment on above: Performed By: #### L 501.2300, L500.2500, L501.5200, L100.0100 #### [facility] [address] [place], [address] Hematocrit (Bld) [Volume fraction] 34.6 % Low 37-47 [facility] Comment on above: Performed By: #### L 501.2300, L500.2500, L501.5200, L100.0100 #### [facility] [address] [place], [address] Hemoglobin (Bld) [Mass/Vol] 11.1 g/dL Low 12.0-15.0 [facility] Comment on above: Performed By: #### L 501.2300, L500.2500, L501.5200, L100.0100 #### [facility] [address] [place], [address] IG% 0.400 Normal 0.0-0.9 [facility] Comment on above: Result Comment: IG% - Immature Granulocytes (promyelocytes, myelocytes and metamyelocytes) > 1% indicates that a LEFT SHIFT is Present. Performed By: #### L 501.2300, L500.2500, L501.5200, L100.0100 #### [facility] [address] [place], [address] Lymphocytes/100 WBC (Bld) 12.9 % Low 19-41 [facility] Comment on above: Performed By: #### L 501.2300, L500.2500, L501.5200, L100.0100 #### [facility] [address] [place], [address] MCH (RBC) [Entitic mass] 34.8 pg High 27.0-32.0 [facility] Comment on above: Performed By: #### L 501.2300, L500.2500, L501.5200, L100.0100 #### [facility] [address] [place], [address] MCHC (RBC) [Mass/Vol] 32.1 g/dL Normal 32-36 [facility] Comment on above: Performed By: #### L 501.2300, L500.2500, L501.5200, L100.0100 #### [facility] [address] [place], [address] MCV (RBC) [Entitic vol] 108.5 fL High 81-[address] [facility] Comment on above: Performed By: #### L 501.2300, L500.2500, L501.5200, L100.0100 #### [facility] [address] [place], [address] Monocytes/100 WBC (Bld) 13.9 % High 0-10 [facility] Comment on above: Performed By: #### L 501.2300, L500.2500, L501.5200, L100.0100 #### [facility] [address] [place], [address] Neutrophils/100 WBC (Bld) 71.4 % High 47-70 [facility] Comment on above: Performed By: #### L 501.2300, L500.2500, L501.5200, L100.0100 #### [facility] [address] [place], [address] Nucleated RBC (Bld) [#/Vol] 0 10*3/uL Normal 0-5 [facility] Comment on above: Performed By: #### L 501.2300, L500.2500, L501.5200, L100.0100 #### [facility] [address] [place], [address] Platelet mean volume (Bld) [Entitic vol] 9.7 fL Normal 6.2-12.0 [facility] Comment on above: Performed By: #### L 501.2300, L500.2500, L501.5200, L100.0100 #### [facility] [address] [place], [address] Platelets (Bld) [#/Vol] 238 10*3/uL Normal 150-450 [facility] Comment on above: Performed By: #### L 501.2300, L500.2500, L501.5200, L100.0100 #### [facility] [address] [place], [address] RBC (Bld) [#/Vol] 3.19 10*6/uL Low 4.2-5.4 [facility] Comment on above: Performed By: #### L 501.2300, L500.2500, L501.5200, L100.0100 #### [facility] [address] [place], [address] RDW SD 55.7 fl High 35.1-43.9 [facility] Comment on above: Performed By: #### L 501.2300, L500.2500, L501.5200, L100.0100 #### [facility] [address] [place], [address] WBC (Bld) [#/Vol] 5.2 10*3/uL Normal 4.4-11.0 [facility] Comment on above: Performed By: #### L 501.2300, L500.2500, L501.5200, L100.0100 #### [facility] [address] [place], [address] Eosinophil percentageOrdered By: Simon Ulloa on 05-01-2025 Eosinophils/100 WBC (Bld) 0.6 % 0-5 [facility] Erythrocyte distribution wid th ratioOrdered By: Simon Ulloa on 05-01-2025 Erythrocyte distribution width (RBC) [Ratio] 14.0 % 11.6-14.6 [facility] Erythrocyte distribution wid th standard deviationOrdered By: Simon Ulloa on 05-01-2025 Erythrocyte distribution width (RBC) [Ratio] 55.7 fl High 35.1-43.9 [facility] Ferritinon 05-01-2025 Ferritin [Mass/Vol] 66 ng/mL Normal 22-378 [facility] Comment on above: Performed By: #### L 501.2300, L500.2500, L501.5200, L100.0100 #### [facility] [address] [place], [place], [id number] Hematocrit Auto (Bld) [Volum e fraction]Ordered By: Simon Ulloa on 05-01-2025 Hematocrit (Bld) [Volume fraction] 34.6 % Low 37-47 [facility] Hemoglobin measurementOrdere d By: Simon Ulloa on 05-01-2025 Hemoglobin (Bld) [Mass/Vol] 11.1 g/dL Low 12.0-15.0 [facility] Immature granulocytes/100 WB C Auto (Bld)Ordered By: [facility]-2025 Immature granulocytes/100 WBC (Bld) 0.400 % 0.0-0.9 [facility] Comment on above: IG% - Immature Granu locytes (promyelocytes, myelocytes and metamyelocytes) > 1% indicates that a LEFT SHIFT is Present. Iron measurement (mass/mass) Ordered By: Simon Ulloa on 05-01-2025 Iron (Unsp spec) [Mass/Mass] 31 ug/dL Low 50-170 [facility] Iron+Iron Binding Capacityon 05-01-2025 Iron [Mass/Vol] 31 ug/dL Low 50-170 [facility] Comment on above: Performed By: #### L 501.2300, L500.2500, L501.5200, L100.0100 #### [facility] [address] [place], [place], [id number] IRON SATURATION 10.0 Low 13-59 [facility] Comment on above: Performed By: #### L 501.2300, L500.2500, L501.5200, L100.0100 #### [facility] [address] [place], [address] TIBC 322 ug/dL Normal 250-450 [facility] Comment on above: Performed By: #### L 501.2300, L500.2500, L501.5200, L100.0100 #### [facility] [address] [place], [address] UIBC 291 ug/dL Normal 228-428 [facility] Comment on above: Performed By: #### L 501.2300, L500.2500, L501.5200, L100.0100 #### [facility] [address] [place], [address] MCV (mean corpuscular volume ) determinationOrdered By: Simon Ulloa on 05-01-2025 MCV (RBC) [Entitic vol] 108.5 fL High 81-99 [facility] Mean corpuscular hemoglobin (MCH) determinationOrdered By: Simon Ulloa on 05-01-2025 MCH (RBC) [Entitic mass] 34.8 pg High 27.0-32.0 [facility] Mean corpuscular hemoglobin concentration (MCHC) determinationOrdered By: Simon Ulloa on 05-01-2025 MCHC (RBC) [Mass/Vol] 32.1 g/dL 32-36 [facility] Mean platelet volume determi nationOrdered By: Simon Ulloa on 05-01-2025 Platelet mean volume (Bld) [Entitic vol] 9.7 fL 6.2-12.0 [facility] Monocyte percentageOrdered B y: Simon Ulloa on 05-01-2025 Monocytes/100 WBC (Bld) 13.9 % High 0-[address] [facility] Neutrophil percentageOrdered By: Simon Ulloa on 05-01-2025 Neutrophils/100 WBC (Bld) 71.4 % High 47-70 [facility] No Panel InformationOrdered By: Simon Ulloa on 05-01-2025 Unsaturated Iron Binding Capacity 291 ug/dL 228-428 [facility] Nucleated red blood cell per centageOrdered By: Simon Ulloa on 05-01-2025 Nucleated RBC/100 WBC (Bld) [Ratio] 0 % 0-5 [facility] Oncology Visit Reporton 09 Oncology Visit Report [facility] [place] [address] OFFICE VISIT Date of Service: 05/01/25 1534 MR#: [id number] Acct: [id number] Name: ANGELES LARIOS Rep #: [id number] : 1960 From: Simon Ulloa MD Age/Sex: 65/F [place] [facility] [place] Status: Signed HPI Subjective Date of Service [...] capsule studies were done April 2021 at [facility], according to patient 2 colonic [...] stenosis Dysarthria Atherosclerosis of coronary artery of ramona heart without angina pectoris Essential (primary) hypertension [...] as documented (more content not included)... Normal [facility] Platelet countOrdered By: Darryl Ulloa on 05-01-2025 Platelets (Bld) [#/Vol] 238 10*3/uL 150-450 [facility] RBC Auto (Bld) [#/Vol]Ordere d By: Simon Ulloa on 05-01-2025 RBC (Bld) [#/Vol] 3.19 10*6/uL Low 4.2-5.4 [facility] Retic Panelon 05-01-2025 IM RET FRACTION 27.80 High 3.00-15.90 [facility] Comment on above: Performed By: #### L 501.2300, L500.2500, L501.5200, L100.0100 #### [facility] Laboratory [address] [place], [address] RET-HE 34.6 pg Normal 30-35 [facility] Comment on above: Performed By: #### L 501.2300, L500.2500, L501.5200, L100.0100 #### [facility] [address] [place], [address] Retic Count 4.64 High 0.5-1.5 [facility] Comment on above: Performed By: #### L 501.2300, L500.2500, L501.5200, L100.0100 #### [facility] [address] [place], [address] Reticulocyte hemoglobin equi valent (RET-He) measurementOrdered By: Simon Ulloa on 05-01-2025 Hemoglobin (Reticulocytes) [Entitic mass] 34.6 pg 30-35 [facility] Reticulocytes Auto (Bld) [#/ Vol]Ordered By: Simon Ulloa on 05-01-2025 Reticulocytes/100 RBC (Bld) 4.64 % High 0.5-1.5 [facility] Serum or plasma ferritin ibrahima surement (mass/volume)Ordered By: Simon Ulloa on 05-01-2025 Ferritin [Mass/Vol] 66 ng/mL 22-378 [facility] Serum or plasma iron saturat ion measurement (mass fraction)Ordered By: Simon Ulloa on 05-01-2025 Iron saturation [Mass fraction] 10.0 % Low 13-59 [facility] White blood cell (WBC) count Ordered By: Simon Ulloa on 05-01-2025 WBC (Bld) [#/Vol] 5.2 10*3/uL 4.4-11.0 [facility] Absolute lymphocyte countOrd ered By: Martin Gutierrez on 12-22-2024 Lymphocytes Auto (Unsp spec) [#/Vol] 1.19 10*3/uL 0.83-4.51 [facility] Absolute neutrophil countOrd ered By: Martin Gutierrez on 12-22-2024 Neutrophils (Bld) [#/Vol] 4.8 10*3/uL 2.0-7.7 [facility] Anion gap in Serum or Plasma Ordered By: Martin Gutierrez on 12-22-2024 Anion gap [Moles/Vol] 10 mmol/L 5-15 [facility] Automated lymphocyte count a s percentage of total leukocytesOrdered By: Martin Gutierrez on 12-22-2024 Lymphocytes/100 WBC Auto (Unsp spec) 17.5 % Low 19-41 [facility] BUN/creatinine ratioOrdered By: Martin Gutierrez on 12-22-2024 Urea nitrogen/Creatinine [Mass ratio] 20.8 mg/mg High 10-20 [facility] Basophil percentageOrdered B y: Martin Gutierrez on 12-22-2024 Basophils/100 WBC (Bld) 0.9 % 0-[address] [facility] Bilirubin, totalOrdered By: Martin Gutierrez on 12-22-2024 Bilirubin [Mass/Vol] mg/dL 0.00-1.30 [facility] CBC W/Diff, Automatedon Absolute Lymph 1.19 X10 3/uL Normal 0.83-4.51 [facility] Comment on above: Performed By: #### L 503.6030, L501.9520, L500.4050, L503.6550, L100.0100, L506.1001 #### [facility] Laboratory [address] [place], [address] Absolute Neut 4.8 X10 3/uL Normal 2.0-7.7 [facility] Comment on above: Performed By: #### L 503.6030, L501.9520, L500.4050, L503.6550, L100.0100, L506.1001 #### [facility] [address] [place], [address] Basophils/100 WBC (Bld) 0.9 % Normal 0-[address] [facility] Comment on above: Performed By: #### L 503.6030, L501.9520, L500.4050, L503.6550, L100.0100, L506.1001 #### [facility] [address] [place], [address] Eosinophils/100 WBC (Bld) 1.2 % Normal 0-5 [facility] Comment on above: Performed By: #### L 503.6030, L501.9520, L500.4050, L503.6550, L100.0100, L506.1001 #### [facility] [address] [place], [address] Erythrocyte distribution width (RBC) [Ratio] 13.4 % Normal 11.6-14.6 [facility] Comment on above: Performed By: #### L 503.6030, L501.9520, L500.4050, L503.6550, L100.0100, L506.1001 #### [facility] [address] [place], [address] Hematocrit (Bld) [Volume fraction] 36.7 % Low 37-47 [facility] Comment on above: Performed By: #### L 503.6030, L501.9520, L500.4050, L503.6550, L100.0100, L506.1001 #### [facility] [address] [place], [address] Hemoglobin (Bld) [Mass/Vol] 11.9 g/dL Low 12.0-15.0 [facility] Comment on above: Performed By: #### L 503.6030, L501.9520, L500.4050, L503.6550, L100.0100, L506.1001 #### [facility] [address] [place], [address] IG% 0.400 Normal 0.0-0.9 [facility] Comment on above: Result Comment: IG% - Immature Granulocytes (promyelocytes, myelocytes and metamyelocytes) > 1% indicates that a LEFT SHIFT is Present. Performed By: #### L 503.6030, L501.9520, L500.4050, L503.6550, L100.0100, L506.1001 #### [facility] [address] [place], [address] Lymphocytes/100 WBC (Bld) 17.5 % Low 19-41 [facility] Comment on above: Performed By: #### L 503.6030, L501.9520, L500.4050, L503.6550, L100.0100, L506.1001 #### [facility] [address] [place], [address] MCH (RBC) [Entitic mass] 34.8 pg High 27.0-32.0 [facility] Comment on above: Performed By: #### L 503.6030, L501.9520, L500.4050, L503.6550, L100.0100, L506.1001 #### [facility] [address] [place], [address] MCHC (RBC) [Mass/Vol] 32.4 g/dL Normal 32-36 [facility] Comment on above: Performed By: #### L 503.6030, L501.9520, L500.4050, L503.6550, L100.0100, L506.1001 #### [facility] [address] [place], [address] MCV (RBC) [Entitic vol] 107.3 fL High 81-[address] [facility] Comment on above: Performed By: #### L 503.6030, L501.9520, L500.4050, L503.6550, L100.0100, L506.1001 #### [facility] [address] [place], [address] Monocytes/100 WBC (Bld) 9.9 % Normal 0-10 [facility] Comment on above: Performed By: #### L 503.6030, L501.9520, L500.4050, L503.6550, L100.0100, L506.1001 #### [facility] [address] [place], [address] Neutrophils/100 WBC (Bld) 70.1 % High 47-70 [facility] Comment on above: Performed By: #### L 503.6030, L501.9520, L500.4050, L503.6550, L100.0100, L506.1001 #### [facility] [address] [place], [address] Nucleated RBC (Bld) [#/Vol] 0 10*3/uL Normal 0-5 [facility] Comment on above: Performed By: #### L 503.6030, L501.9520, L500.4050, L503.6550, L100.0100, L506.1001 #### [facility] [address] [place], [address] Platelet mean volume (Bld) [Entitic vol] 9.5 fL Normal 6.2-12.0 [facility] Comment on above: Performed By: #### L 503.6030, L501.9520, L500.4050, L503.6550, L100.0100, L506.1001 #### [facility] [address] [place], [address] Platelets (Bld) [#/Vol] 296 10*3/uL Normal 150-450 [facility] Comment on above: Performed By: #### L 503.6030, L501.9520, L500.4050, L503.6550, L100.0100, L506.1001 #### [facility] [address] [place], [address] RBC (Bld) [#/Vol] 3.42 10*6/uL Low 4.2-5.4 [facility] Comment on above: Performed By: #### L 503.6030, L501.9520, L500.4050, L503.6550, L100.0100, L506.1001 #### [facility] [address] [place], [address] RDW SD 52.9 fl High 35.1-43.9 [facility] Comment on above: Performed By: #### L 503.6030, L501.9520, L500.4050, L503.6550, L100.0100, L506.1001 #### [facility] [address] [place], [address] WBC (Bld) [#/Vol] 6.8 10*3/uL Normal 4.4-11.0 [facility] Comment on above: Performed By: #### L 503.6030, L501.9520, L500.4050, L503.6550, L100.0100, L506.1001 #### [facility] [address] [place], [address] Carbon dioxide, total [Moles /volume] in Central venous bloodOrdered By: Martin Gutierrez on 12-22-2024 CO2 [Moles/Vol] 23.2 mmol/L 21.0-32.0 [facility] Chloride assayOrdered By: Cruzito Gutierrez on 12-22-2024 Chloride [Moles/Vol] 106 mmol/L 98-108 [facility] Comprehensive Metabolic Prof ilon 12-22-2024 Albumin [Mass/Vol] 4.0 g/dL Normal 3.4-4.8 [facility] Comment on above: Performed By: #### L 503.6030, L501.9520, L500.4050, L503.6550, L100.0100, L506.1001 #### [facility] [address] [place], [address] Albumin/Globulin [Mass ratio] 1.7 {ratio} Normal 0.9-2.4 [facility] Comment on above: Performed By: #### L 503.6030, L501.9520, L500.4050, L503.6550, L100.0100, L506.1001 #### [facility] [address] [place], [address] ALK PHOS 85 U/L Normal 35-104 [facility] Comment on above: Performed By: #### L 503.6030, L501.9520, L500.4050, L503.6550, L100.0100, L506.1001 #### [facility] [address] [place], [address] ALT [Catalytic activity/Vol] 14 U/L Normal <=34 [facility] Comment on above: Performed By: #### L 503.6030, L501.9520, L500.4050, L503.6550, L100.0100, L506.1001 #### [facility] [address] [place], [address] AST [Catalytic activity/Vol] 16 U/L Normal <=31 [facility] Comment on above: Performed By: #### L 503.6030, L501.9520, L500.4050, L503.6550, L100.0100, L506.1001 #### [facility] [address] [place], [address] BUN/CRE 20.8 RATIO High 10-20 [facility] Comment on above: Performed By: #### L 503.6030, L501.9520, L500.4050, L503.6550, L100.0100, L506.1001 #### [facility] [address] [place], [address] Calcium [Mass/Vol] 9.0 mg/dL Normal 7.6-11.0 [facility] Comment on above: Performed By: #### L 503.6030, L501.9520, L500.4050, L503.6550, L100.0100, L506.1001 #### [facility] [address] [place], [address] Chloride [Moles/Vol] 106 mmol/L Normal 98-108 [facility] Comment on above: Performed By: #### L 503.6030, L501.9520, L500.4050, L503.6550, L100.0100, L506.1001 #### [facility] [address] [place], [address] CO2 [Moles/Vol] 23.2 mmol/L Normal 21.0-32.0 [facility] Comment on above: Performed By: #### L 503.6030, L501.9520, L500.4050, L503.6550, L100.0100, L506.1001 #### [facility] [address] [place], [address] Creatinine [Mass/Vol] 0.65 mg/dL Low 0.70-1.20 [facility] Comment on above: Performed By: #### L 503.6030, L501.9520, L500.4050, L503.6550, L100.0100, L506.1001 #### [facility] [address] [place], [address] GAP 10 Normal 5-15 [facility] Comment on above: Performed By: #### L 503.6030, L501.9520, L500.4050, L503.6550, L100.0100, L506.1001 #### [facility] [address] [place], [address] GFR/1.73 sq M.predicted among non-blacks MDRD (S/P/Bld) [Vol rate/Area] 97 mL/min/{1.73_m2} Normal >60 [facility] Comment on above: Result Comment: mL/m in/1.73m2 CKD-EPI Creatinine Equation (2020) Performed By: #### L 503.6030, L501.9520, L500.4050, L503.6550, L100.0100, L506.1001 #### [facility] [address] [place], [address] Globulin (S) [Mass/Vol] 2.3 g/dL Normal 2.2-4.2 [facility] Comment on above: Performed By: #### L 503.6030, L501.9520, L500.4050, L503.6550, L100.0100, L506.1001 #### [facility] [address] [place], [address] Glucose [Mass/Vol] 123 mg/dL High 70-99 [facility] Comment on above: Performed By: #### L 503.6030, L501.9520, L500.4050, L503.6550, L100.0100, L506.1001 #### [facility] [address] [place], [address] Potassium [Moles/Vol] 3.9 mmol/L Normal 3.3-5.1 [facility] Comment on above: Performed By: #### L 503.6030, L501.9520, L500.4050, L503.6550, L100.0100, L506.1001 #### [facility] [address] [place], [address] Sodium [Moles/Vol] 139 mmol/L Normal 133-145 [facility] Comment on above: Performed By: #### L 503.6030, L501.9520, L500.4050, L503.6550, L100.0100, L506.1001 #### [facility] [address] [place], [address] T BILI < 0.15 Normal 0.00-1.30 [facility] Comment on above: Performed By: #### L 503.6030, L501.9520, L500.4050, L503.6550, L100.0100, L506.1001 #### [facility] [address] [place], [address] T PROT 6.2 g/dL Normal 5.9-8.4 [facility] Comment on above: Performed By: #### L 503.6030, L501.9520, L500.4050, L503.6550, L100.0100, L506.1001 #### [facility] [address] [place], [address] Urea nitrogen [Mass/Vol] 14 mg/dL Normal 4-19 [facility] Comment on above: Performed By: #### L 503.6030, L501.9520, L500.4050, L503.6550, L100.0100, L506.1001 #### [facility] [address] [place], [address] Eosinophil percentageOrdered By: Martin Gutierrez on 12-22-2024 Eosinophils/100 WBC (Bld) 1.2 % 0-5 [facility] Erythrocyte distribution wid th ratioOrdered By: [facility] Matt on 12-22-2024 Erythrocyte distribution width (RBC) [Ratio] 13.4 % 11.6-14.6 [facility] Erythrocyte distribution wid th standard deviationOrdered By: [facility] Matt on 12-22-2024 Erythrocyte distribution width (RBC) [Ratio] 52.9 fl High 35.1-43.9 [facility] Ferritinon 12-22-2024 Ferritin [Mass/Vol] 33 ng/mL Normal 22-378 [facility] Comment on above: Performed By: #### L 503.6030, L501.9520, L500.4050, L503.6550, L100.0100, L506.1001 #### [facility] [place], [address] Glomerular filtration rate ( GFR) estimation/1.73 sq m using serum, plasma, or whole bOrdered By: Martin Matt on 12-22-2024 GFR/1.73 sq M.predicted among non-blacks MDRD (S/P/Bld) [Vol rate/Area] 97 mL/min/{1.73_m2} >60 [facility] Comment on above: mL/min/1.73m2 CKD-EP I Creatinine Equation (2020) Hematocrit Auto (Bld) [Volum e fraction]Ordered By: [facility] Matt on 12-22-2024 Hematocrit (Bld) [Volume fraction] 36.7 % Low 37-47 [facility] Hemoglobin measurementOrdere d By: Martin Matt on 12-22-2024 Hemoglobin (Bld) [Mass/Vol] 11.9 g/dL Low 12.0-15.0 [facility] Immature granulocytes/100 WB C Auto (Bld)Ordered By: Martin Matt on 12-22-2024 Immature granulocytes/100 WBC (Bld) 0.400 % 0.0-0.9 [facility] Comment on above: IG% - Immature Granu locytes (promyelocytes, myelocytes and metamyelocytes) > 1% indicates that a LEFT SHIFT is Present. Iron measurement (mass/mass) Ordered By: Martin Gutierrez on 12-22-2024 Iron (Unsp spec) [Mass/Mass] 31 ug/dL Low 50-170 [facility] Iron+Iron Binding Capacityon 12-22-2024 Iron [Mass/Vol] 31 ug/dL Low 50-170 [facility] Comment on above: Performed By: #### L 503.6030, L501.9520, L500.4050, L503.6550, L100.0100, L506.1001 #### [facility] [address] [place], [address] IRON SATURATION 10.0 Low 13-59 [facility] Comment on above: Performed By: #### L 503.6030, L501.9520, L500.4050, L503.6550, L100.0100, L506.1001 #### [facility] [address] [place], [address] TIBC 311 ug/dL Normal 250-450 [facility] Comment on above: Performed By: #### L 503.6030, L501.9520, L500.4050, L503.6550, L100.0100, L506.1001 #### [facility] [address] [place], [address] UIBC 280 ug/dL Normal 228-428 [facility] Comment on above: Performed By: #### L 503.6030, L501.9520, L500.4050, L503.6550, L100.0100, L506.1001 #### [facility] [address] [place], [address] Laboratory - Chemistry and C hemistry - challengeOrdered By: Martin Gutierrez on 12-22-2024 AST [Catalytic activity/Vol] 16 U/L <32 [facility] MCV (mean corpuscular volume ) determinationOrdered By: Martin Gutierrez on 12-22-2024 MCV (RBC) [Entitic vol] 107.3 fL High 81-[address] [facility] Mean corpuscular hemoglobin (MCH) determinationOrdered By: Martin Gutierrez on 12-22-2024 MCH (RBC) [Entitic mass] 34.8 pg High 27.0-32.0 [facility] Mean corpuscular hemoglobin concentration (MCHC) determinationOrdered By: Martin Gutierrez on 12-22-2024 MCHC (RBC) [Mass/Vol] 32.4 g/dL 32-36 [facility] Mean platelet volume determi nationOrdered By: Martin Gutierrez on 12-22-2024 Platelet mean volume (Bld) [Entitic vol] 9.5 fL 6.2-12.0 [facility] Monocyte percentageOrdered B y: Martin Gutierrez on 12-22-2024 Monocytes/100 WBC (Bld) 9.9 % 0-[address] [facility] Neutrophil percentageOrdered By: Martin Gutierrez on 12-22-2024 Neutrophils/100 WBC (Bld) 70.1 % High 47-70 [facility] No Panel InformationOrdered By: Martin Guteirrez on 12-22-2024 Unsaturated Iron Binding Capacity 280 ug/dL 228-428 [facility] Nucleated red blood cell per centageOrdered By: Martin Gutierrez on 12-22-2024 Nucleated RBC/100 WBC (Bld) [Ratio] 0 % 0-5 [facility] Platelet countOrdered By: Cruzito Gutierrez on 12-22-2024 Platelets (Bld) [#/Vol] 296 10*3/uL 150-450 [facility] Potassium measurement (mass/ volume)Ordered By: Martin Gutierrez on 12-22-2024 Potassium (Unsp spec) [Mass/Vol] 3.9 mmol/L 3.3-5.1 [facility] RBC Auto (Bld) [#/Vol]Ordere d By: Martin Gutierrez on 12-22-2024 RBC (Bld) [#/Vol] 3.42 10*6/uL Low 4.2-5.4 [facility] Serum creatinine measurement (mass/volume)Ordered By: Martin Gutierrez on 12-22-2024 Creatinine [Mass/Vol] 0.65 mg/dL Low 0.70-1.20 [facility] Serum globulin measurementOr dered By: Martin Gutierrez on 12-22-2024 Globulin (S) [Mass/Vol] 2.3 g/dL 2.2-4.[address] [facility] Serum glucose measurement (m ass/volume)Ordered By: Martin Gutierrez on 12-22-2024 Glucose [Mass/Vol] 123 mg/dL High 70-99 [facility] Serum or plasma alanine joshi otransferase (ALT) measurementOrdered By: Martin Gutierrez on 12-22-2024 ALT [Catalytic activity/Vol] 14 U/L <35 [facility] Serum or plasma albumin kamlesh urement (mass/volume)Ordered By: Martin Gutierrez on 12-22-2024 Albumin [Mass/Vol] 4.0 g/dL 3.4-4.8 [facility] Serum or plasma albumin/glob ulin mass ratioOrdered By: Martin Gutierrez 12-22-2024 Albumin/Globulin [Mass ratio] 1.7 {ratio} 0.9-2.4 [facility] Serum or plasma alkaline mena sphatase measurementOrdered By: Martin Gutierrez 12-22-2024 ALP [Catalytic activity/Vol] 85 U/L 35-104 [facility] Serum or plasma calcium kamlesh urement (mass/volume)Ordered By: Martin Gutierrez 12-22-2024 Calcium [Mass/Vol] 9.0 mg/dL 7.6-11.0 [facility] Serum or plasma ferritin ibrahima surement (mass/volume)Ordered By: Martin Gutierrez 12-22-2024 Ferritin [Mass/Vol] 33 ng/mL 22-378 [facility] Serum or plasma iron saturat ion measurement (mass fraction)Ordered By: Martin Gutierrez 12-22-2024 Iron saturation [Mass fraction] 10.0 % Low 13-59 [facility] Serum or plasma urea nitroge n measurement (mass/volume)Ordered By: Martin Gutierrez 12-22-2024 Urea nitrogen [Mass/Vol] 14 mg/dL 4-19 [facility] Sodium levelOrdered By: Martin Gutierrez 12-22-2024 Sodium [Moles/Vol] 139 mmol/L 133-145 [facility] TSH DL <= 0.005 mIU/L QnOrde red By: Martin Gutierrez on 12-22-2024 TSH Qn 2.440 uIU/mL 0.300-4.200 [facility] Thyroid Stim Hormone (TSH)on 12-22-2024 TSH 2.440 uIU/mL Normal 0.300-4.200 [facility] Comment on above: Performed By: #### L 503.6030, L501.9520, L500.4050, L503.6550, L100.0100, L506.1001 #### [facility] [address] [place], [place], [id number] Total proteinOrdered By: Martin Gutierrez on 12-22-2024 Protein [Mass/Vol] 6.2 g/dL 5.9-8.4 [facility] Vitamin D,25 Hydroxyon 12-22 Vitamin D 25-OH 12.1 ng/mL Low 30-100 [facility] Comment on above: Result Comment: Shanti min D Status Deficiency: <20 ng/mL (50nmol/L) Insufficiency: 20-30 ng/mL (50-75 nmol/L) Sufficiency: 30-100 ng/mL (75-250 nmol/L) Toxicity: >100 ng/mL (>250 nmol/L) Performed By: #### L 503.6030, L501.9520, L500.4050, L503.6550, L100.0100, L506.1001 #### [facility] [address] [place], [place], [id number] White blood cell (WBC) count Ordered By: Martin Gutierrez on 12-22-2024 WBC (Bld) [#/Vol] 6.8 10*3/uL 4.4-11.0 [facility] Inital Evaluation (1) - PTon 11-14-2024 Inital Evaluation (1) - PT [facility] Physical Therapy [address] [place] [address] / REHABILITATION SERVICES INITIAL EVALUATION MR#: [id number] Acct: [id number] Name: ANGELES LARIOS Rep #: [id number] : 1960 64 From: Pardeep Betancur PT, Cert. T, OCS Referring Dr.: Dr. Armando Ga MD Status: REG R Insurance: [facility] [id number] SELF PAY INSURANCE Patient's Visit Information Visit [...] Response: No effect Lumbar Standing: Right Side [place] - Symptoms During Testing: No effect Lumbar Standing: Right Side [place] - Symptoms After Testing: No effect Lumbar Standing: Left Side [place] - Mechanical Response: No effect Lumbar Standing: Left Side [place] - Symptoms During Testing: No effect Lumbar Standing: Left Side [place] - Symptoms After Testing: No effect Balance/Special [...] eisure, To (more content not included)... Normal [facility] Basic Metabolic Profile (BMP )on 10-05-2024 BUN/CRE 26.9 RATIO High 10-20 [facility] Comment on above: Performed By: #### L 503.6030, L501.9520, L500.4050, L503.6550, L100.0100, L506.1001 #### [facility] [address] [place], [address] CA,Total 8.9 mg/dL Normal 8.5-10.1 [facility] Comment on above: Performed By: #### L 503.6030, L501.9520, L500.4050, L503.6550, L100.0100, L506.1001 #### [facility] [address] [place], [address] Chloride [Moles/Vol] 111 mmol/L High 98-107 [facility] Comment on above: Performed By: #### L 503.6030, L501.9520, L500.4050, L503.6550, L100.0100, L506.1001 #### [facility] [address] [place], [address] CO2 [Moles/Vol] 24.0 mmol/L Normal 21.0-32.0 [facility] Comment on above: Performed By: #### L 503.6030, L501.9520, L500.4050, L503.6550, L100.0100, L506.1001 #### [facility] [address] [place], [address] Creatinine [Mass/Vol] 0.63 mg/dL Normal 0.55-1.02 [facility] Comment on above: Result Comment: The validity of the calculated GFR GFRAA in patients over 70 years has not been determined. Clinical correlation is essential. Performed By: #### L 503.6030, L501.9520, L500.4050, L503.6550, L100.0100, L506.1001 #### [facility] [address] [place], [address] EST GFR - AA 121 mL/min Normal >60 [facility] Comment on above: Result Comment: Afri can Qatari GFR Calc Performed By: #### L 503.6030, L501.9520, L500.4050, L503.6550, L100.0100, L506.1001 #### [facility] [address] [place], [address] GAP 6 Normal 5-15 [facility] Comment on above: Performed By: #### L 503.6030, L501.9520, L500.4050, L503.6550, L100.0100, L506.1001 #### [facility] [address] [place], [address] GFR/1.73 sq M.predicted among non-blacks MDRD (S/P/Bld) [Vol rate/Area] 100 mL/min/{1.73_m2} Normal >60 [facility] Comment on above: Result Comment: Non- GFR Calc Performed By: #### L 503.6030, L501.9520, L500.4050, L503.6550, L100.0100, L506.1001 #### [facility] [address] [place], [address] Glucose [Mass/Vol] 92 mg/dL Normal 74-106 [facility] Comment on above: Performed By: #### L 503.6030, L501.9520, L500.4050, L503.6550, L100.0100, L506.1001 #### [facility] [address] [place], [address] Potassium [Moles/Vol] 3.8 mmol/L Normal 3.5-5.1 [facility] Comment on above: Performed By: #### L 503.6030, L501.9520, L500.4050, L503.6550, L100.0100, L506.1001 #### [facility] [address] [place], [address] Sodium [Moles/Vol] 141 mmol/L Normal 136-145 [facility] Comment on above: Performed By: #### L 503.6030, L501.9520, L500.4050, L503.6550, L100.0100, L506.1001 #### [facility] [address] [place], [address] Urea nitrogen [Mass/Vol] 17 mg/dL Normal 7-18 [facility] Comment on above: Performed By: #### L 503.6030, L501.9520, L500.4050, L503.6550, L100.0100, L506.1001 #### [facility] [address] [place], [address] BUN Normal 7-18 [facility] Comment on above: Result Comment: DUPL ICATE ORDER Performed By: #### L 501.2300, L500.2500, L501.5200, L100.0100 #### [facility] [address] [place], [address] BUN/CRE Normal 10-20 [facility] Comment on above: Result Comment: DUPL ICATE ORDER Performed By: #### L 501.2300, L500.2500, L501.5200, L100.0100 #### [facility] [address] [place], [address] CA,Total Normal 8.5-10.1 [facility] Comment on above: Result Comment: DUPL ICATE ORDER Performed By: #### L 501.2300, L500.2500, L501.5200, L100.0100 #### [facility] [address] [place], [address] CL Normal 98-107 [facility] Comment on above: Result Comment: DUPL ICATE ORDER Performed By: #### L 501.2300, L500.2500, L501.5200, L100.0100 #### [facility] [address] [place], [address] CO2 Normal 21.0-32.0 [facility] Comment on above: Result Comment: DUPL ICATE ORDER Performed By: #### L 501.2300, L500.2500, L501.5200, L100.0100 #### [facility] [address] [place], [address] CREAT,SERUM Normal 0.55-1.02 [facility] Comment on above: Result Comment: DUPL ICATE ORDER Performed By: #### L 501.2300, L500.2500, L501.5200, L100.0100 #### [facility] [address] [place], [address] EST GFR Normal >60 [facility] Comment on above: Result Comment: DUPL ICATE ORDER Performed By: #### L 501.2300, L500.2500, L501.5200, L100.0100 #### [facility] [address] [place], [address] EST GFR - AA Normal >60 [facility] Comment on above: Result Comment: DUPL ICATE ORDER Performed By: #### L 501.2300, L500.2500, L501.5200, L100.0100 #### [facility] [address] [place], [address] GAP Normal 5-15 [facility] Comment on above: Result Comment: DUPL ICATE ORDER Performed By: #### L 501.2300, L500.2500, L501.5200, L100.0100 #### [facility] [address] [place], [address] GLU Normal 74-106 [facility] Comment on above: Result Comment: DUPL ICATE ORDER Performed By: #### L 501.2300, L500.2500, L501.5200, L100.0100 #### [facility] Laboratory [address] [place], [address] Potassium Normal 3.5-5.1 [facility] Comment on above: Result Comment: DUPL ICATE ORDER Performed By: #### L 501.2300, L500.2500, L501.5200, L100.0100 #### [facility] Laboratory [address] [place], [address] Basic Metabolic Profile (BMP) Normal 136-145 [facility] Comment on above: Result Comment: DUPL ICATE ORDER Performed By: #### L 501.2300, L500.2500, L501.5200, L100.0100 #### [facility] Laboratory [address] [place], [address] Blood urea nitrogen (BUN)/cr eatinine ratioOrdered By: Martin Gutierrez on 10-05-2024 Urea nitrogen/Creatinine [Mass ratio] 26.9 mg/mg High 10-20 [facility] Carbon dioxide measurementOr dered By: Martin Gutierrez on 10-05-2024 CO2 [Moles/Vol] 24.0 mmol/L 21.0-32.0 [facility] Chloride measurementOrdered By: Martin Gutierrez 10-05-2024 Chloride [Moles/Vol] 111 mmol/L High 98-107 [facility] Glomerular filtration rate ( GFR) estimationOrdered By: Martin Gutierrez on 10-05-2024 GFR/1.73 sq M.predicted among non-blacks MDRD (S/P/Bld) [Vol rate/Area] 100 mL/min/{1.73_m2} >60 [facility] Comment on above: Non- GFR Calc Glucose measurementOrdered B y: Martin Gutierrez on 10-05-2024 Glucose [Mass/Vol] 92 mg/dL 74-106 [facility] Potassium measurementOrdered By: Martin Gutierrez on 10-05-2024 Potassium [Moles/Vol] 3.8 mmol/L 3.5-5.1 [facility] Serum anion gap measurementO rdered By: Martin Gutierrez on 10-05-2024 Anion gap [Moles/Vol] 6 mmol/L 5-15 [facility] Serum or plasma calcium kamlesh urement (mass/volume)Ordered By: Martin Gutierrez on 10-05-2024 Calcium [Mass/Vol] 8.9 mg/dL 8.5-10.1 [facility] Serum or plasma creatinine m easurement (mass/volume)Ordered By: Martin Gutierrez on 10-05-2024 Creatinine [Mass/Vol] 0.63 mg/dL 0.55-1.02 [facility] Comment on above: The validity of the calculated GFR & GFRAA in patients over 70 years has not been determined. Clinical correlation is essential. Serum or plasma urea nitroge n measurement (mass/volume)Ordered By: Martin Gutierrez on 10-05-2024 Urea nitrogen [Mass/Vol] 17 mg/dL 7-18 [facility] Sodium levelOrdered By: Martin Gutierrez on 10-05-2024 Sodium [Moles/Vol] 141 mmol/L 136-145 [facility] Absolute lymphocyte countOrd ered By: Simon Ulloa on 10-04-2024 Lymphocytes Auto (Unsp spec) [#/Vol] 1.35 10*3/uL 0.83-4.51 [facility] Absolute neutrophil countOrd ered By: Simon Ulloa on 10-04-2024 Neutrophils (Bld) [#/Vol] 6.4 10*3/uL 2.0-7.7 [facility] Automated lymphocyte count a s percentage of total leukocytesOrdered By: Simon Ulloa on 10-04-2024 Lymphocytes/100 WBC Auto (Unsp spec) 14.7 % Low 19-41 [facility] Basophil percentageOrdered B y: Simon Ulloa on 10-04-2024 Basophils/100 WBC (Bld) 0.3 % 0-[address] [facility] CBC W/Diff, Automatedon 09-24 Absolute Lymph 1.35 X10 3/uL Normal 0.83-4.51 [facility] Comment on above: Performed By: #### L 501.2300, L500.2500, L501.5200, L100.0100 #### [facility] Laboratory [address] [place], [address] Absolute Neut 6.4 X10 3/uL Normal 2.0-7.7 [facility] Comment on above: Performed By: #### L 501.2300, L500.2500, L501.5200, L100.0100 #### [facility] Laboratory [address] [place], [address] Basophils/100 WBC (Bld) 0.3 % Normal 0-[address] [facility] Comment on above: Performed By: #### L 501.2300, L500.2500, L501.5200, L100.0100 #### [facility] Laboratory [address] [place], [address] Eosinophils/100 WBC (Bld) 0.5 % Normal 0-5 [facility] Comment on above: Performed By: #### L 501.2300, L500.2500, L501.5200, L100.0100 #### [facility] Laboratory [address] [place], [address] Erythrocyte distribution width (RBC) [Ratio] 12.7 % Normal 11.6-14.6 [facility] Comment on above: Performed By: #### L 501.2300, L500.2500, L501.5200, L100.0100 #### [facility] Laboratory [address] [place], [address] Hematocrit (Bld) [Volume fraction] 32.1 % Low 37-47 [facility] Comment on above: Performed By: #### L 501.2300, L500.2500, L501.5200, L100.0100 #### [facility] Laboratory [address] [place], [address] Hemoglobin (Bld) [Mass/Vol] 10.4 g/dL Low 12.0-15.0 [facility] Comment on above: Performed By: #### L 501.2300, L500.2500, L501.5200, L100.0100 #### [facility] Laboratory [address] [place], [address] IG% 2.900 High 0.0-0.9 [facility] Comment on above: Result Comment: IG% - Immature Granulocytes (promyelocytes, myelocytes and metamyelocytes) > 1% indicates that a LEFT SHIFT is Present. Performed By: #### L 501.2300, L500.2500, L501.5200, L100.0100 #### [facility] Laboratory [address] [place], [address] Lymphocytes/100 WBC (Bld) 14.7 % Low 19-41 [facility] Comment on above: Performed By: #### L 501.2300, L500.2500, L501.5200, L100.0100 #### [facility] Laboratory [address] [place], [address] MCH (RBC) [Entitic mass] 33.8 pg High 27.0-32.0 [facility] Comment on above: Performed By: #### L 501.2300, L500.2500, L501.5200, L100.0100 #### [facility] Laboratory [address] [place], [address] MCHC (RBC) [Mass/Vol] 32.4 g/dL Normal 32-36 [facility] Comment on above: Performed By: #### L 501.2300, L500.2500, L501.5200, L100.0100 #### [facility] Laboratory [address] [place], [address] MCV (RBC) [Entitic vol] 104.2 fL High 81-[address] [facility] Comment on above: Performed By: #### L 501.2300, L500.2500, L501.5200, L100.0100 #### [facility] Laboratory [address] [place], [address] Monocytes/100 WBC (Bld) 11.8 % High 0-[address] [facility] Comment on above: Performed By: #### L 501.2300, L500.2500, L501.5200, L100.0100 #### [facility] Laboratory [address] [place], [address] Neutrophils/100 WBC (Bld) 69.8 % Normal 47-70 [facility] Comment on above: Performed By: #### L 501.2300, L500.2500, L501.5200, L100.0100 #### [facility] Laboratory [address] [place], [address] Nucleated RBC (Bld) [#/Vol] 0 10*3/uL Normal 0-5 [facility] Comment on above: Performed By: #### L 501.2300, L500.2500, L501.5200, L100.0100 #### [facility] Laboratory [address] [place], [address] Platelet mean volume (Bld) [Entitic vol] 9.6 fL Normal 6.2-12.0 [facility] Comment on above: Performed By: #### L 501.2300, L500.2500, L501.5200, L100.0100 #### [facility] Laboratory [address] [place], [address] Platelets (Bld) [#/Vol] 455 10*3/uL High 150-450 [facility] Comment on above: Performed By: #### L 501.2300, L500.2500, L501.5200, L100.0100 #### [facility] Laboratory [address] [place], [address] RBC (Bld) [#/Vol] 3.08 10*6/uL Low 4.2-5.4 [facility] Comment on above: Performed By: #### L 501.2300, L500.2500, L501.5200, L100.0100 #### [facility] Laboratory [address] [place], [address] RDW SD 48.7 fl High 35.1-43.9 [facility] Comment on above: Performed By: #### L 501.2300, L500.2500, L501.5200, L100.0100 #### [facility] Laboratory [address] [place], [address] WBC (Bld) [#/Vol] 9.2 10*3/uL Normal 4.4-11.0 [facility] Comment on above: Performed By: #### L 501.2300, L500.2500, L501.5200, L100.0100 #### [facility] Laboratory [address] [place], [address] Eosinophil percentageOrdered By: Simon Ulloa on 10-04-2024 Eosinophils/100 WBC (Bld) 0.5 % 0-5 [facility] Erythrocyte distribution wid th ratioOrdered By: Simon Ulloa on 10-04-2024 Erythrocyte distribution width (RBC) [Ratio] 12.7 % 11.6-14.6 [facility] Erythrocyte distribution wid th standard deviationOrdered By: Simon Ulloa on 10-04-2024 Erythrocyte distribution width (RBC) [Ratio] 48.7 fl High 35.1-43.9 [facility] Ferritinon 10-04-2024 Ferritin [Mass/Vol] 38 ng/mL Normal [facility] Comment on above: Performed By: #### L 501.2300, L500.2500, L501.5200, L100.0100 #### [facility] Laboratory [address] [place], [address] Ferritin measurementOrdered By: Simon Ulloa on 10-04-2024 Ferritin [Mass/Vol] 38 ng/mL [facility] Hematocrit Auto (Bld) [Volum e fraction]Ordered By: Simon Ulloa on 10-04-2024 Hematocrit (Bld) [Volume fraction] 32.1 % Low 37-47 [facility] Hemoglobin measurementOrdere d By: Simon Ulloa on 10-04-2024 Hemoglobin (Bld) [Mass/Vol] 10.4 g/dL Low 12.0-15.0 [facility] Immature granulocytes/100 WB C Auto (Bld)Ordered By: Simon Ulloa on 10-04-2024 Immature granulocytes/100 WBC (Bld) 2.900 % High 0.0-0.9 [facility] Comment on above: IG% - Immature Granu locytes (promyelocytes, myelocytes and metamyelocytes) > 1% indicates that a LEFT SHIFT is Present. Iron measurement (mass/mass) Ordered By: Simon Ulloa on 10-04-2024 Iron (Unsp spec) [Mass/Mass] 28 ug/dL Low 50-170 [facility] Iron+Iron Binding Capacityon 10-04-2024 Iron [Mass/Vol] 28 ug/dL Low 50-170 [facility] Comment on above: Performed By: #### L 501.2300, L500.2500, L501.5200, L100.0100 #### [facility] Laboratory [address] [place], [address] IRON SATURATION 9.5 Low 15.0-55.0 [facility] Comment on above: Performed By: #### L 501.2300, L500.2500, L501.5200, L100.0100 #### [facility] Laboratory [address] [place], [address] TIBC 296 ug/dL Normal 250-450 [facility] Comment on above: Performed By: #### L 501.2300, L500.2500, L501.5200, L100.0100 #### [facility] Laboratory [address] [place], [address] MCV (mean corpuscular volume ) determinationOrdered By: Simon Ulloa on 10-04-2024 MCV (RBC) [Entitic vol] 104.2 fL High 81-[address] [facility] Mean corpuscular hemoglobin (MCH) determinationOrdered By: Simon Ulloa on 10-04-2024 MCH (RBC) [Entitic mass] 33.8 pg High 27.0-32.0 [facility] Mean corpuscular hemoglobin concentration (MCHC) determinationOrdered By: Simon Ulloa on 10-04-2024 MCHC (RBC) [Mass/Vol] 32.4 g/dL 32-36 [facility] Mean platelet volume determi nationOrdered By: Simon Ulloa on 10-04-2024 Platelet mean volume (Bld) [Entitic vol] 9.6 fL 6.2-12.0 [facility] Monocyte percentageOrdered B y: Simon Ulloa on 10-04-2024 Monocytes/100 WBC (Bld) 11.8 % High 0-[address] [facility] Neutrophil percentageOrdered By: Simon Ulloa on 10-04-2024 Neutrophils/100 WBC (Bld) 69.8 % 47-70 [facility] Nucleated red blood cell per centageOrdered By: Simon Ulloa on 10-04-2024 Nucleated RBC/100 WBC (Bld) [Ratio] 0 % 0-5 [facility] Oncology Visit Reporton 09-24 Oncology Visit Report [facility] [address] [place] [address] OFFICE VISIT Date of Service: 10/04/24 1050 MR#: [id number] Acct: [id number] Name: ANGELES LARIOS Rep #: [id number] : 1960 From: Simon Ulloa MD Age/Sex: 64/F Location: [facility] Status: Signed HPI Subjective Date of [...] capsule studies were done April 2021 at [facility], according to patient 2 colonic vascular lesions were seen and cauterized. Interval History Was hospitalized September 2024 with influenza, recovering [facility] Medical History Tobacco use disorder, continuous Iron deficiency anemia due to chronic blood loss History of stress test Depression Hypothyroidism GERD (gastroesophageal reflux disease) Smoker Coronary artery disease Hypertension DVT (deep venous thrombosis) TIA (transient ischemic attack) Anemia Macrocytosis Nicotine dependence Chronic GI bleeding Peripheral vascular disease Non-rheumatic aortic stenosis Dysarthria Atherosclerosis of coronary artery of ramona heart without angina pectoris Essential (primary) hypertension [...] Allergic/Immunologic Allergic/Immunologic: (more content not included)... Normal [facility] Platelet countOrdered By: Darryl Ulloa on 10-04-2024 Platelets (Bld) [#/Vol] 455 10*3/uL High 150-450 [facility] RBC Auto (Bld) [#/Vol]Ordere d By: Simon Ulloa on 10-04-2024 RBC (Bld) [#/Vol] 3.08 10*6/uL Low 4.2-5.4 [facility] Retic Panelon 10-04-2024 IM RET FRACTION 29.00 High 3.00-15.90 [facility] Comment on above: Performed By: #### L 501.2300, L500.2500, L501.5200, L100.0100 #### [facility] Laboratory [address] [place], [address] RET-HE 27.0 pg Low 30-35 [facility] Comment on above: Performed By: #### L 501.2300, L500.2500, L501.5200, L100.0100 #### [facility] Laboratory [address] [place], [address] Retic Count 3.65 High 0.5-1.5 [facility] Comment on above: Performed By: #### L 501.2300, L500.2500, L501.5200, L100.0100 #### [facility] Laboratory [address] [place], [address] Reticulocyte hemoglobin equi valent (RET-He) measurementOrdered By: Simon Ulloa on 10-04-2024 Hemoglobin (Reticulocytes) [Entitic mass] 27.0 pg Low 30-35 [facility] Reticulocytes Auto (Bld) [#/ Vol]Ordered By: Simon Ulloa on 10-04-2024 Reticulocytes/100 RBC (Bld) 3.65 % High 0.5-1.5 [facility] Serum or plasma iron saturat ion measurement (mass fraction)Ordered By: Simon Ulloa on 10-04-2024 Iron saturation [Mass fraction] 9.5 % Low 15.0-55.0 [facility] Vitamin B12on 10-04-2024 Cobalamin (Vitamin B12) [Mass/Vol] 438 pg/mL Normal [facility] Comment on above: Performed By: #### L 501.2300, L500.2500, L501.5200, L100.0100 #### [facility] Laboratory [address] [place], [address] Vitamin B12 measurementOrder ed By: Simon Ulloa on 10-04-2024 Cobalamin (Vitamin B12) [Mass/Vol] 438 pg/mL [facility] White blood cell (WBC) count Ordered By: Simon Ulloa on 10-04-2024 WBC (Bld) [#/Vol] 9.2 10*3/uL 4.4-11.0 [facility] Culture, Blood (WB)on 2024 CUB Blood cultures x2, from two different sites No growth in 5 days. Normal [facility] Comment on above: Performed By: #### L 503.6030, L501.9520, L500.4050, L503.6550, L100.0100, L506.1001 #### [facility] Laboratory [address] [place], [address] Basic Metabolic Profile (BMP )on 09-30-2024 BUN Normal 7-18 [facility] Comment on above: Result Comment: Canc elled via OM: Order cancelled - Patient discharged Performed By: #### L 501.2300, L500.2500, L501.5200, L100.0100 #### [facility] Laboratory [address] [place], [address] BUN/CRE Normal 10-20 [facility] Comment on above: Result Comment: Canc elled via OM: Order cancelled - Patient discharged Performed By: #### L 501.2300, L500.2500, L501.5200, L100.0100 #### [facility] Laboratory [address] [place], [address] CA,Total Normal 8.5-10.1 [facility] Comment on above: Result Comment: Canc elled via OM: Order cancelled - Patient discharged Performed By: #### L 501.2300, L500.2500, L501.5200, L100.0100 #### [facility] Laboratory [address] [place], [address] CL Normal 98-107 [facility] Comment on above: Result Comment: Canc elled via OM: Order cancelled - Patient discharged Performed By: #### L 501.2300, L500.2500, L501.5200, L100.0100 #### [facility] Laboratory [address] [place], [address] CO2 Normal 21.0-32.0 [facility] Comment on above: Result Comment: Canc elled via OM: Order cancelled - Patient discharged Performed By: #### L 501.2300, L500.2500, L501.5200, L100.0100 #### [facility] Laboratory [address] [place], [address] CREAT,SERUM Normal 0.55-1.02 [facility] Comment on above: Result Comment: Canc elled via OM: Order cancelled - Patient discharged Performed By: #### L 501.2300, L500.2500, L501.5200, L100.0100 #### [facility] Laboratory [address] [place], [address] EST GFR Normal >60 [facility] Comment on above: Result Comment: Canc elled via OM: Order cancelled - Patient discharged Performed By: #### L 501.2300, L500.2500, L501.5200, L100.0100 #### [facility] Laboratory [address] [place], [address] EST GFR - AA Normal >60 [facility] Comment on above: Result Comment: Canc elled via OM: Order cancelled - Patient discharged Performed By: #### L 501.2300, L500.2500, L501.5200, L100.0100 #### [facility] Laboratory [address] [place], [address] GAP Normal 5-15 [facility] Comment on above: Result Comment: Canc elled via OM: Order cancelled - Patient discharged Performed By: #### L 501.2300, L500.2500, L501.5200, L100.0100 #### [facility] Laboratory [address] [place], [address] GLU Normal 74-106 [facility] Comment on above: Result Comment: Canc elled via OM: Order cancelled - Patient discharged Performed By: #### L 501.2300, L500.2500, L501.5200, L100.0100 #### [facility] Laboratory [address] [place], [address] Potassium Normal 3.5-5.1 [facility] Comment on above: Result Comment: Canc elled via OM: Order cancelled - Patient discharged Performed By: #### L 501.2300, L500.2500, L501.5200, L100.0100 #### [facility] Laboratory [address] [place], [address] Basic Metabolic Profile (BMP) Normal 136-145 [facility] Comment on above: Result Comment: Canc elled via OM: Order cancelled - Patient discharged Performed By: #### L 501.2300, L500.2500, L501.5200, L100.0100 #### [facility] Laboratory [address] [place], [address] CBC W/Diff, Automatedon 02-0 -2024 Absolute Neut Normal 2.0-7.7 [facility] Comment on above: Result Comment: Canc elled via OM: Order cancelled - Patient discharged Performed By: #### L 501.2300, L500.2500, L501.5200, L100.0100 #### [facility] Laboratory [address] [place], [address] HCT Normal 37-47 [facility] Comment on above: Result Comment: Canc elled via OM: Order cancelled - Patient discharged Performed By: #### L 501.2300, L500.2500, L501.5200, L100.0100 #### [facility] Laboratory [address] [place], [address] HGB Normal 12.0-15.0 [facility] Comment on above: Result Comment: Canc elled via OM: Order cancelled - Patient discharged Performed By: #### L 501.2300, L500.2500, L501.5200, L100.0100 #### [facility] Laboratory [address] [place], [address] MCH Normal 27.0-32.0 [facility] Comment on above: Result Comment: Canc elled via OM: Order cancelled - Patient discharged Performed By: #### L 501.2300, L500.2500, L501.5200, L100.0100 #### [facility] Laboratory [address] [place], [address] MCHC Normal 32-36 [facility] Comment on above: Result Comment: Canc elled via OM: Order cancelled - Patient discharged Performed By: #### L 501.2300, L500.2500, L501.5200, L100.0100 #### [facility] Laboratory [address] [place], [address] MCV Normal 81-99 [facility] Comment on above: Result Comment: Canc elled via OM: Order cancelled - Patient discharged Performed By: #### L 501.2300, L500.2500, L501.5200, L100.0100 #### [facility] Laboratory [address] [place], [address] NEUT% Normal 47-70 [facility] Comment on above: Result Comment: Canc elled via OM: Order cancelled - Patient discharged Performed By: #### L 501.2300, L500.2500, L501.5200, L100.0100 #### [facility] Laboratory [address] [place], [address] PLT Normal 150-450 [facility] Comment on above: Result Comment: Canc elled via OM: Order cancelled - Patient discharged Performed By: #### L 501.2300, L500.2500, L501.5200, L100.0100 #### [facility] Laboratory [address] [place], [address] RBC Normal 4.2-5.4 [facility] Comment on above: Result Comment: Canc elled via OM: Order cancelled - Patient discharged Performed By: #### L 501.2300, L500.2500, L501.5200, L100.0100 #### [facility] Laboratory [address] [place], [address] RDW CV Normal 11.6-14.6 [facility] Comment on above: Result Comment: Canc elled via OM: Order cancelled - Patient discharged Performed By: #### L 501.2300, L500.2500, L501.5200, L100.0100 #### [facility] Laboratory [address] [place], [address] RDW SD Normal 35.1-43.9 [facility] Comment on above: Result Comment: Canc elled via OM: Order cancelled - Patient discharged Performed By: #### L 501.2300, L500.2500, L501.5200, L100.0100 #### [facility] Laboratory [address] [place], [address] WBC Normal 4.4-11.0 [facility] Comment on above: Result Comment: Canc elled via OM: Order cancelled - Patient discharged Performed By: #### L 501.2300, L500.2500, L501.5200, L100.0100 #### [facility] Laboratory [address] [place], [address] Basic Metabolic Profile (BMP )on 09-29-2024 BUN Normal 7-18 [facility] Comment on above: Result Comment: Canc elled via OM: Order cancelled - Patient discharged Performed By: #### L 501.2300, L500.2500, L501.5200, L100.0100 #### [facility] Laboratory [address] [place], [address] BUN/CRE Normal 10-20 [facility] Comment on above: Result Comment: Canc elled via OM: Order cancelled - Patient discharged Performed By: #### L 501.2300, L500.2500, L501.5200, L100.0100 #### [facility] Laboratory [address] [place], [address] CA,Total Normal 8.5-10.1 [facility] Comment on above: Result Comment: Canc elled via OM: Order cancelled - Patient discharged Performed By: #### L 501.2300, L500.2500, L501.5200, L100.0100 #### [facility] Laboratory [address] [place], [address] CL Normal 98-107 [facility] Comment on above: Result Comment: Canc elled via OM: Order cancelled - Patient discharged Performed By: #### L 501.2300, L500.2500, L501.5200, L100.0100 #### [facility] [address] [place], [address] CO2 Normal 21.0-32.0 [facility] Comment on above: Result Comment: Canc elled via OM: Order cancelled - Patient discharged Performed By: #### L 501.2300, L500.2500, L501.5200, L100.0100 #### [facility] [address] [place], [address] CREAT,SERUM Normal 0.55-1.02 [facility] Comment on above: Result Comment: Canc elled via OM: Order cancelled - Patient discharged Performed By: #### L 501.2300, L500.2500, L501.5200, L100.0100 #### [facility] [address] [place], [address] EST GFR Normal >60 [facility] Comment on above: Result Comment: Canc elled via OM: Order cancelled - Patient discharged Performed By: #### L 501.2300, L500.2500, L501.5200, L100.0100 #### [facility] [address] [place], [address] EST GFR - AA Normal >60 [facility] Comment on above: Result Comment: Canc elled via OM: Order cancelled - Patient discharged Performed By: #### L 501.2300, L500.2500, L501.5200, L100.0100 #### [facility] [address] [place], [address] GAP Normal 5-15 [facility] Comment on above: Result Comment: Canc elled via OM: Order cancelled - Patient discharged Performed By: #### L 501.2300, L500.2500, L501.5200, L100.0100 #### [facility] [address] [place], [address] GLU Normal 74-106 [facility] Comment on above: Result Comment: Canc elled via OM: Order cancelled - Patient discharged Performed By: #### L 501.2300, L500.2500, L501.5200, L100.0100 #### [facility] [address] [place], [address] Potassium Normal 3.5-5.1 [facility] Comment on above: Result Comment: Canc elled via OM: Order cancelled - Patient discharged Performed By: #### L 501.2300, L500.2500, L501.5200, L100.0100 #### [facility] [address] [place], [address] Basic Metabolic Profile (BMP) Normal 136-145 [facility] Comment on above: Result Comment: Canc elled via OM: Order cancelled - Patient discharged Performed By: #### L 501.2300, L500.2500, L501.5200, L100.0100 #### [facility] [address] [place], [address] CBC W/Diff, Automatedon 02-0 Absolute Neut Normal 2.0-7.7 [facility] Comment on above: Result Comment: Canc elled via OM: Order cancelled - Patient discharged Performed By: #### L 501.2300, L500.2500, L501.5200, L100.0100 #### [facility] [address] [place], [address] HCT Normal 37-47 [facility] Comment on above: Result Comment: Canc elled via OM: Order cancelled - Patient discharged Performed By: #### L 501.2300, L500.2500, L501.5200, L100.0100 #### [facility] [address] [place], [address] HGB Normal 12.0-15.0 [facility] Comment on above: Result Comment: Canc elled via OM: Order cancelled - Patient discharged Performed By: #### L 501.2300, L500.2500, L501.5200, L100.0100 #### [facility] [address] [place], [address] MCH Normal 27.0-32.0 [facility] Comment on above: Result Comment: Canc elled via OM: Order cancelled - Patient discharged Performed By: #### L 501.2300, L500.2500, L501.5200, L100.0100 #### [facility] [address] [place], [address] MCHC Normal 32-36 [facility] Comment on above: Result Comment: Canc elled via OM: Order cancelled - Patient discharged Performed By: #### L 501.2300, L500.2500, L501.5200, L100.0100 #### [facility] [address] [place], [address] MCV Normal 81-99 [facility] Comment on above: Result Comment: Canc elled via OM: Order cancelled - Patient discharged Performed By: #### L 501.2300, L500.2500, L501.5200, L100.0100 #### [facility] [address] [place], [address] NEUT% Normal 47-70 [facility] Comment on above: Result Comment: Canc elled via OM: Order cancelled - Patient discharged Performed By: #### L 501.2300, L500.2500, L501.5200, L100.0100 #### [facility] [address] [place], [address] PLT Normal 150-450 [facility] Comment on above: Result Comment: Canc elled via OM: Order cancelled - Patient discharged Performed By: #### L 501.2300, L500.2500, L501.5200, L100.0100 #### [facility] [address] [place], [address] RBC Normal 4.2-5.4 [facility] Comment on above: Result Comment: Canc elled via OM: Order cancelled - Patient discharged Performed By: #### L 501.2300, L500.2500, L501.5200, L100.0100 #### [facility] [address] [place], [address] RDW CV Normal 11.6-14.6 [facility] Comment on above: Result Comment: Canc elled via OM: Order cancelled - Patient discharged Performed By: #### L 501.2300, L500.2500, L501.5200, L100.0100 #### [facility] [address] [place], [address] RDW SD Normal 35.1-43.9 [facility] Comment on above: Result Comment: Canc elled via OM: Order cancelled - Patient discharged Performed By: #### L 501.2300, L500.2500, L501.5200, L100.0100 #### [facility] [address] [place], [address] WBC Normal 4.4-11.0 [facility] Comment on above: Result Comment: Canc elled via OM: Order cancelled - Patient discharged Performed By: #### L 501.2300, L500.2500, L501.5200, L100.0100 #### [facility] [address] [place], [address] Respiratory Cultureon 2024 RESPC Ampicillin can be used for Beta-Lactamase negative isolates. Microorganism Spec Cult Trimeth/Sulfa, Chloramphenicol, Cefotaxime, Ciprofloxacin, Amoxicillin/Clavulani c Acid, and Oral 2nd/3rd Generation Cephalosporins are effective against both Beta-Lactamase positive and Beta-Lactamase negative isolates. Haemophilus influenzae Amount Growth 3+ Beta Lactamase-Reportable Positive Normal [facility] Comment on above: Performed By: #### L 503.6030, L501.9520, L500.4050, L503.6550, L100.0100, L506.1001 #### [facility] [address] [place], [address] Absolute lymphocyte countOrd ered By: Scott Mcneal on 09-28-2024 Lymphocytes Auto (Unsp spec) [#/Vol] 0.56 10*3/uL Low 0.83-4.51 [facility] Absolute neutrophil countOrd ered By: Scott Mcneal on 09-28-2024 Neutrophils (Bld) [#/Vol] 5.5 10*3/uL 2.0-7.7 [facility] Automated lymphocyte count a s percentage of total leukocytesOrdered By: Scott Mcneal on 09-28-2024 Lymphocytes/100 WBC Auto (Unsp spec) 8.5 % Low 19-41 [facility] Basic Metabolic Profile (BMP )on 09-28-2024 BUN/CRE 38.9 RATIO High 10-20 [facility] Comment on above: Performed By: #### L 501.2300, L500.2500, L501.5200, L100.0100 #### [facility] [address] [place], [place], [id number] CA,Total 8.8 mg/dL Normal 8.5-10.1 [facility] Comment on above: Performed By: #### L 501.2300, L500.2500, L501.5200, L100.0100 #### [facility] [address] [place], [address] Chloride [Moles/Vol] 105 mmol/L Normal 98-107 [facility] Comment on above: Performed By: #### L 501.2300, L500.2500, L501.5200, L100.0100 #### [facility] [address] [place], [address] CO2 [Moles/Vol] 27.0 mmol/L Normal 21.0-32.0 [facility] Comment on above: Performed By: #### L 501.2300, L500.2500, L501.5200, L100.0100 #### [facility] [address] [place], [address] Creatinine [Mass/Vol] 0.51 mg/dL Low 0.55-1.02 [facility] Comment on above: Result Comment: The validity of the calculated GFR GFRAA in patients over 70 years has not been determined. Clinical correlation is essential. Performed By: #### L 501.2300, L500.2500, L501.5200, L100.0100 #### [facility] [address] [place], [address] ECRCL 76.35 ml/min Normal [facility] Comment on above: Performed By: #### L 501.2300, L500.2500, L501.5200, L100.0100 #### [facility] [address] [place], [address] EST GFR - AA 154 mL/min Normal >60 [facility] Comment on above: Result Comment: Afri can Qat[place] GFR Calc Performed By: #### L 501.2300, L500.2500, L501.5200, L100.0100 #### [facility] [address] [place], [address] GAP 6 Normal 5-15 [facility] Comment on above: Performed By: #### L 501.2300, L500.2500, L501.5200, L100.0100 #### [facility] [address] [place], [address] GFR/1.73 sq M.predicted among non-blacks MDRD (S/P/Bld) [Vol rate/Area] 127 mL/min/{1.73_m2} Normal >60 [facility] Comment on above: Result Comment: Non- GFR Calc Performed By: #### L 501.2300, L500.2500, L501.5200, L100.0100 #### [facility] [address] [place], [address] Glucose [Mass/Vol] 176 mg/dL High 74-106 [facility] Comment on above: Result Comment: Fast ing Glucose result greater than or equal to 126 mg/dL suggests DIABETES MELLITUS per A.D.A. criteria. Performed By: #### L 501.2300, L500.2500, L501.5200, L100.0100 #### [facility] [address] [place], [address] Potassium [Moles/Vol] 4.2 mmol/L Normal 3.5-5.1 [facility] Comment on above: Performed By: #### L 501.2300, L500.2500, L501.5200, L100.0100 #### [facility] [address] [place], [address] Sodium [Moles/Vol] 138 mmol/L Normal 136-145 [facility] Comment on above: Performed By: #### L 501.2300, L500.2500, L501.5200, L100.0100 #### [facility] [address] [place], [address] Urea nitrogen [Mass/Vol] 20 mg/dL High 7-18 [facility] Comment on above: Performed By: #### L 501.2300, L500.2500, L501.5200, L100.0100 #### [facility] [address] [place], [address] Basophil percentageOrdered B y: Scott Mcneal on 09-28-2024 Basophils/100 WBC (Bld) 0.2 % 0-[address] [facility] Blood urea nitrogen (BUN)/cr eatinine ratioOrdered By: Scott Ruizmarcosnicola on 09-28-2024 Urea nitrogen/Creatinine [Mass ratio] 38.9 mg/mg High 10-20 [facility] CBC W/Diff, Automatedon Absolute Lymph 0.56 X10 3/uL Low 0.83-4.51 [facility] Comment on above: Performed By: #### L 501.2300, L500.2500, L501.5200, L100.0100 #### [facility] [address] [place], [address] Absolute Neut 5.5 X10 3/uL Normal 2.0-7.7 [facility] Comment on above: Performed By: #### L 501.2300, L500.2500, L501.5200, L100.0100 #### [facility] [address] [place], [address] Basophils/100 WBC (Bld) 0.2 % Normal 0-[address] [facility] Comment on above: Performed By: #### L 501.2300, L500.2500, L501.5200, L100.0100 #### [facility] [address] [place], [address] Eosinophils/100 WBC (Bld) 0.0 % Normal 0-5 [facility] Comment on above: Performed By: #### L 501.2300, L500.2500, L501.5200, L100.0100 #### [facility] [address] [place], [address] Erythrocyte distribution width (RBC) [Ratio] 12.2 % Normal 11.6-14.6 [facility] Comment on above: Performed By: #### L 501.2300, L500.2500, L501.5200, L100.0100 #### [facility] [address] [place], [address] Hematocrit (Bld) [Volume fraction] 33.7 % Low 37-47 [facility] Comment on above: Performed By: #### L 501.2300, L500.2500, L501.5200, L100.0100 #### [facility] [address] [place], [address] Hemoglobin (Bld) [Mass/Vol] 10.8 g/dL Low 12.0-15.0 [facility] Comment on above: Performed By: #### L 501.2300, L500.2500, L501.5200, L100.0100 #### [facility] [address] [place], [address] IG% 0.500 Normal 0.0-0.9 [facility] Comment on above: Result Comment: IG% - Immature Granulocytes (promyelocytes, myelocytes and metamyelocytes) > 1% indicates that a LEFT SHIFT is Present. Performed By: #### L 501.2300, L500.2500, L501.5200, L100.0100 #### [facility] [address] [place], [address] Lymphocytes/100 WBC (Bld) 8.5 % Low 19-41 [facility] Comment on above: Performed By: #### L 501.2300, L500.2500, L501.5200, L100.0100 #### [facility] [address] [place], [address] MCH (RBC) [Entitic mass] 34.3 pg High 27.0-32.0 [facility] Comment on above: Performed By: #### L 501.2300, L500.2500, L501.5200, L100.0100 #### [facility] [address] [place], [address] MCHC (RBC) [Mass/Vol] 32.0 g/dL Normal 32-36 [facility] Comment on above: Performed By: #### L 501.2300, L500.2500, L501.5200, L100.0100 #### [facility] [address] [place], [address] MCV (RBC) [Entitic vol] 107.0 fL High 81-99 [facility] Comment on above: Performed By: #### L 501.2300, L500.2500, L501.5200, L100.0100 #### [facility] [address] [place], [address] Monocytes/100 WBC (Bld) 7.6 % Normal 0-10 [facility] Comment on above: Performed By: #### L 501.2300, L500.2500, L501.5200, L100.0100 #### [facility] [address] [place], [address] Neutrophils/100 WBC (Bld) 83.2 % High 47-70 [facility] Comment on above: Performed By: #### L 501.2300, L500.2500, L501.5200, L100.0100 #### [facility] [address] [place], [address] Nucleated RBC (Bld) [#/Vol] 0 10*3/uL Normal 0-5 [facility] Comment on above: Performed By: #### L 501.2300, L500.2500, L501.5200, L100.0100 #### [facility] [address] [place], [address] Platelet mean volume (Bld) [Entitic vol] 10.2 fL Normal 6.2-12.0 [facility] Comment on above: Performed By: #### L 501.2300, L500.2500, L501.5200, L100.0100 #### [facility] [address] [place], [address] Platelets (Bld) [#/Vol] 210 10*3/uL Normal 150-450 [facility] Comment on above: Performed By: #### L 501.2300, L500.2500, L501.5200, L100.0100 #### [facility] [address] [place], [address] RBC (Bld) [#/Vol] 3.15 10*6/uL Low 4.2-5.4 [facility] Comment on above: Performed By: #### L 501.2300, L500.2500, L501.5200, L100.0100 #### [facility] [address] [place], [address] RDW SD 47.8 fl High 35.1-43.9 [facility] Comment on above: Performed By: #### L 501.2300, L500.2500, L501.5200, L100.0100 #### [facility] [address] [place], [address] WBC (Bld) [#/Vol] 6.6 10*3/uL Normal 4.4-11.0 [facility] Comment on above: Performed By: #### L 501.2300, L500.2500, L501.5200, L100.0100 #### [facility] [address] [place], [address] Carbon dioxide measurementOr dered By: Scott Mcneal on 09-28-2024 CO2 [Moles/Vol] 27.0 mmol/L 21.0-32.0 [facility] Chloride measurementOrdered By: Scott Mcneal on 09-28-2024 Chloride [Moles/Vol] 105 mmol/L 98-107 [facility] Eosinophil percentageOrdered By: Scott Mcneal on 09-28-2024 Eosinophils/100 WBC (Bld) 0.0 % 0-5 [facility] Erythrocyte distribution wid th ratioOrdered By: Scott Mcneal on 09-28-2024 Erythrocyte distribution width (RBC) [Ratio] 12.2 % 11.6-14.6 [facility] Erythrocyte distribution wid th standard deviationOrdered By: Scott Mcneal on 09-28-2024 Erythrocyte distribution width (RBC) [Ratio] 47.8 fl High 35.1-43.9 [facility] Glomerular filtration rate ( GFR) estimationOrdered By: Scott Mcneal on 09-28-2024 GFR/1.73 sq M.predicted among non-blacks MDRD (S/P/Bld) [Vol rate/Area] 127 mL/min/{1.73_m2} >60 [facility] Comment on above: Non- GFR Calc Glucose measurementOrdered B y: Scott Mcneal on 09-28-2024 Glucose [Mass/Vol] 176 mg/dL High 74-106 [facility] Comment on above: Fasting Glucose resu lt greater than or equal to 126 mg/dL suggests DIABETES MELLITUS per A.D.A. criteria. Hematocrit Auto (Bld) [Volum e fraction]Ordered By: Scott Mcneal on 09-28-2024 Hematocrit (Bld) [Volume fraction] 33.7 % Low 37-47 [facility] Hemoglobin measurementOrdere d By: Scott Mcneal on 09-28-2024 Hemoglobin (Bld) [Mass/Vol] 10.8 g/dL Low 12.0-15.0 [facility] Immature granulocytes/100 WB C Auto (Bld)Ordered By: Scott Mcneal on 09-28-2024 Immature granulocytes/100 WBC (Bld) 0.500 % 0.0-0.9 [facility] Comment on above: IG% - Immature Granu locytes (promyelocytes, myelocytes and metamyelocytes) > 1% indicates that a LEFT SHIFT is Present. MCV (mean corpuscular volume ) determinationOrdered By: Scott Mcneal on 09-28-2024 MCV (RBC) [Entitic vol] 107.0 fL High 81-[address] [facility] Magnesiumon 09-28-2024 Magnesium [Mass/Vol] 2.7 mg/dL High 1.6-2.6 [facility] Comment on above: Performed By: #### L 501.2300, L500.2500, L501.5200, L100.0100 #### [facility] [address] [place], [place], [id number] Magnesium measurementOrdered By: Soctt Mcneal on 09-28-2024 Magnesium [Mass/Vol] 2.7 mg/dL High 1.6-2.6 [facility] Mean corpuscular hemoglobin (MCH) determinationOrdered By: Scott Mcneal on 09-28-2024 MCH (RBC) [Entitic mass] 34.3 pg High 27.0-32.0 [facility] Mean corpuscular hemoglobin concentration (MCHC) determinationOrdered By: Scott Mcneal on 09-28-2024 MCHC (RBC) [Mass/Vol] 32.0 g/dL 32-36 [facility] Mean platelet volume determi nationOrdered By: Scott Mcneal on 09-28-2024 Platelet mean volume (Bld) [Entitic vol] 10.2 fL 6.2-12.0 [facility] Monocyte percentageOrdered B y: Scott Mcneal on 09-28-2024 Monocytes/100 WBC (Bld) 7.6 % 0-[address] [facility] Neutrophil percentageOrdered By: Scott Mcneal on 09-28-2024 Neutrophils/100 WBC (Bld) 83.2 % High 47-70 [facility] Nucleated red blood cell per centageOrdered By: Scott Mcneal on 09-28-2024 Nucleated RBC/100 WBC (Bld) [Ratio] 0 % 0-5 [facility] Phosphoruson 09-28-2024 Phosphate [Mass/Vol] 3.9 mg/dL Normal 2.5-4.9 [facility] Comment on above: Performed By: #### L 501.2300, L500.2500, L501.5200, L100.0100 #### [facility] [address] [place], [address] Platelet countOrdered By: Patric Mcneal on 09-28-2024 Platelets (Bld) [#/Vol] 210 10*3/uL 150-450 [facility] Potassium measurementOrdered By: Scott Mcneal on 09-28-2024 Potassium [Moles/Vol] 4.2 mmol/L 3.5-5.1 [facility] RBC Auto (Bld) [#/Vol]Ordere d By: Scott Mcneal on 09-28-2024 RBC (Bld) [#/Vol] 3.15 10*6/uL Low 4.2-5.4 [facility] Serum anion gap measurementO rdered By: Scott Mcneal on 09-28-2024 Anion gap [Moles/Vol] 6 mmol/L 5-15 [facility] Serum or plasma calcium kamlesh urement (mass/volume)Ordered By: Scott Mcneal on 09-28-2024 Calcium [Mass/Vol] 8.8 mg/dL 8.5-10.1 [facility] Serum or plasma creatinine m easurement (mass/volume)Ordered By: Scott Mcneal on 09-28-2024 Creatinine [Mass/Vol] 0.51 mg/dL Low 0.55-1.02 [facility] Comment on above: The validity of the calculated GFR & GFRAA in patients over 70 years has not been determined. Clinical correlation is essential. Serum or plasma urea nitroge n measurement (mass/volume)Ordered By: Scott Mcneal on 09-28-2024 Urea nitrogen [Mass/Vol] 20 mg/dL High 7-18 [facility] Sodium levelOrdered By: Nazario Mcneal on 09-28-2024 Sodium [Moles/Vol] 138 mmol/L 136-145 [facility] White blood cell (WBC) count Ordered By: Scott Mcneal on 09-28-2024 WBC (Bld) [#/Vol] 6.6 10*3/uL 4.4-11.0 [facility] Albumin to globulin ratioOrd ered By: Esperanza Myers on 09-27-2024 Albumin/Globulin [Mass ratio] 0.7 {ratio} Low 0.9-2.4 [facility] Bilirubin, totalOrdered By: Esperanza Myers on 09-27-2024 Bilirubin [Mass/Vol] 0.20 mg/dL 0.20-1.00 [facility] Comment on above: For patients on eltr ombopag therapy, use of Dimension [place] TBIL is not recommended. CBC W/Diff, Automatedon Absolute Lymph 0.31 X10 3/uL Low 0.83-4.51 [facility] Comment on above: Performed By: #### L 501.2300, L500.2500, L501.5200, L100.0100 #### [facility] [address] [place], [address] Absolute Neut 2.7 X10 3/uL Normal 2.0-7.7 [facility] Comment on above: Performed By: #### L 501.2300, L500.2500, L501.5200, L100.0100 #### [facility] [address] [place], [address] Basophils/100 WBC (Bld) 0.3 % Normal 0-[address] [facility] Comment on above: Performed By: #### L 501.2300, L500.2500, L501.5200, L100.0100 #### [facility] [address] [place], [address] Eosinophils/100 WBC (Bld) 0.0 % Normal 0-5 [facility] Comment on above: Performed By: #### L 501.2300, L500.2500, L501.5200, L100.0100 #### [facility] [address] [place], [address] Erythrocyte distribution width (RBC) [Ratio] 12.0 % Normal 11.6-14.6 [facility] Comment on above: Performed By: #### L 501.2300, L500.2500, L501.5200, L100.0100 #### [facility] [address] [place], [address] Hematocrit (Bld) [Volume fraction] 33.4 % Low 37-47 [facility] Comment on above: Performed By: #### L 501.2300, L500.2500, L501.5200, L100.0100 #### [facility] [address] [place], [address] Hemoglobin (Bld) [Mass/Vol] 10.8 g/dL Low 12.0-15.0 [facility] Comment on above: Performed By: #### L 501.2300, L500.2500, L501.5200, L100.0100 #### [facility] [address] [place], [address] IG% 1.000 High 0.0-0.9 [facility] Comment on above: Result Comment: IG% - Immature Granulocytes (promyelocytes, myelocytes and metamyelocytes) > 1% indicates that a LEFT SHIFT is Present. Performed By: #### L 501.2300, L500.2500, L501.5200, L100.0100 #### [facility] [address] [place], [address] Lymphocytes/100 WBC (Bld) 9.8 % Low 19-41 [facility] Comment on above: Performed By: #### L 501.2300, L500.2500, L501.5200, L100.0100 #### [facility] [address] [place], [address] MCH (RBC) [Entitic mass] 34.2 pg High 27.0-32.0 [facility] Comment on above: Performed By: #### L 501.2300, L500.2500, L501.5200, L100.0100 #### [facility] [address] [place], [address] MCHC (RBC) [Mass/Vol] 32.3 g/dL Normal 32-36 [facility] Comment on above: Performed By: #### L 501.2300, L500.2500, L501.5200, L100.0100 #### [facility] [address] [place], [address] MCV (RBC) [Entitic vol] 105.7 fL High 81-[address] [facility] Comment on above: Performed By: #### L 501.2300, L500.2500, L501.5200, L100.0100 #### [facility] [address] [place], [address] Monocytes/100 WBC (Bld) 4.4 % Normal 0-10 [facility] Comment on above: Performed By: #### L 501.2300, L500.2500, L501.5200, L100.0100 #### [facility] [address] [place], [address] Neutrophils/100 WBC (Bld) 84.5 % High 47-70 [facility] Comment on above: Performed By: #### L 501.2300, L500.2500, L501.5200, L100.0100 #### [facility] [address] [place], [address] Nucleated RBC (Bld) [#/Vol] 0 10*3/uL Normal 0-5 [facility] Comment on above: Performed By: #### L 501.2300, L500.2500, L501.5200, L100.0100 #### [facility] [address] [place], [address] Platelet mean volume (Bld) [Entitic vol] 10.0 fL Normal 6.2-12.0 [facility] Comment on above: Performed By: #### L 501.2300, L500.2500, L501.5200, L100.0100 #### [facility] [address] [place], [address] Platelets (Bld) [#/Vol] 172 10*3/uL Normal 150-450 [facility] Comment on above: Performed By: #### L 501.2300, L500.2500, L501.5200, L100.0100 #### [facility] [address] [place], [address] RBC (Bld) [#/Vol] 3.16 10*6/uL Low 4.2-5.4 [facility] Comment on above: Performed By: #### L 501.2300, L500.2500, L501.5200, L100.0100 #### [facility] [address] [place], [address] RDW SD 47.5 fl High 35.1-43.9 [facility] Comment on above: Performed By: #### L 501.2300, L500.2500, L501.5200, L100.0100 #### [facility] [address] [place], [address] WBC (Bld) [#/Vol] 3.2 10*3/uL Low 4.4-11.0 [facility] Comment on above: Performed By: #### L 501.2300, L500.2500, L501.5200, L100.0100 #### [facility] [address] [place], [address] Comprehensive Metabolic Prof [facility] 09-27-2024 Albumin [Mass/Vol] 2.4 g/dL Low 3.2-5.0 [facility] Comment on above: Performed By: #### L 501.2300, L500.2500, L501.5200, L100.0100 #### [facility] [address] [place], [address] Albumin/Globulin [Mass ratio] 0.7 {ratio} Low 0.9-2.4 [facility] Comment on above: Performed By: #### L 501.2300, L500.2500, L501.5200, L100.0100 #### [facility] [address] [place], [address] ALK P 65 U/L Normal 45-117 [facility] Comment on above: Performed By: #### L 501.2300, L500.2500, L501.5200, L100.0100 #### [facility] [address] [place], [address] ALT [Catalytic activity/Vol] 14 U/L Normal 13-56 [facility] Comment on above: Performed By: #### L 501.2300, L500.2500, L501.5200, L100.0100 #### [facility] [address] [place], [address] AST [Catalytic activity/Vol] 12 U/L Low 15-37 [facility] Comment on above: Performed By: #### L 501.2300, L500.2500, L501.5200, L100.0100 #### [facility] [address] [place], [address] Bilirubin [Mass/Vol] 0.20 mg/dL Normal 0.20-1.00 [facility] Comment on above: Result Comment: For patients on eltrombopag therapy, use of Dimension [place] TBIL is not recommended. Performed By: #### L 501.2300, L500.2500, L501.5200, L100.0100 #### [facility] [address] [place], [address] BUN/CRE 33.5 RATIO High 10-20 [facility] Comment on above: Performed By: #### L 501.2300, L500.2500, L501.5200, L100.0100 #### [facility] [address] [place], [address] CA,Total 8.5 mg/dL Normal 8.5-10.1 [facility] Comment on above: Performed By: #### L 501.2300, L500.2500, L501.5200, L100.0100 #### [facility] [address] [place], [address] Chloride [Moles/Vol] 106 mmol/L Normal 98-107 [facility] Comment on above: Performed By: #### L 501.2300, L500.2500, L501.5200, L100.0100 #### [facility] [address] [place], [address] CO2 [Moles/Vol] 27.0 mmol/L Normal 21.0-32.0 [facility] Comment on above: Performed By: #### L 501.2300, L500.2500, L501.5200, L100.0100 #### [facility] [address] [place], [address] Creatinine [Mass/Vol] 0.48 mg/dL Low 0.55-1.02 [facility] Comment on above: Result Comment: The validity of the calculated GFR GFRAA in patients over 70 years has not been determined. Clinical correlation is essential. Performed By: #### L 501.2300, L500.2500, L501.5200, L100.0100 #### [facility] [address] [place], [address] ECRCL 76.35 ml/min Normal [facility] Comment on above: Performed By: #### L 501.2300, L500.2500, L501.5200, L100.0100 #### [facility] [address] [place], [address] EST GFR - AA 167 mL/min Normal >60 [facility] Comment on above: Result Comment: Afri can Qatari GFR Calc Performed By: #### L 501.2300, L500.2500, L501.5200, L100.0100 #### [facility] [address] [place], [address] GAP 6 Normal 5-15 [facility] Comment on above: Performed By: #### L 501.2300, L500.2500, L501.5200, L100.0100 #### [facility] [address] [place], [address] GFR/1.73 sq M.predicted among non-blacks MDRD (S/P/Bld) [Vol rate/Area] 138 mL/min/{1.73_m2} Normal >60 [facility] Comment on above: Result Comment: Non- GFR Calc Performed By: #### L 501.2300, L500.2500, L501.5200, L100.0100 #### [facility] [address] [place], [address] Globulin (S) [Mass/Vol] 3.5 g/dL Normal 2.2-4.2 [facility] Comment on above: Performed By: #### L 501.2300, L500.2500, L501.5200, L100.0100 #### [facility] [address] [place], [address] Glucose [Mass/Vol] 164 mg/dL High 74-106 [facility] Comment on above: Result Comment: Fast ing Glucose result greater than or equal to 126 mg/dL suggests DIABETES MELLITUS per A.D.A. criteria. Performed By: #### L 501.2300, L500.2500, L501.5200, L100.0100 #### [facility] [address] [place], [address] Potassium [Moles/Vol] 3.8 mmol/L Normal 3.5-5.1 [facility] Comment on above: Performed By: #### L 501.2300, L500.2500, L501.5200, L100.0100 #### [facility] [address] [place], [address] Sodium [Moles/Vol] 139 mmol/L Normal 136-145 [facility] Comment on above: Performed By: #### L 501.2300, L500.2500, L501.5200, L100.0100 #### [facility] [address] [place], [address] T PROT 5.9 g/dL Low 6.4-8.2 [facility] Comment on above: Performed By: #### L 501.2300, L500.2500, L501.5200, L100.0100 #### [facility] [address] [place], [address] Urea nitrogen [Mass/Vol] 16 mg/dL Normal 7-18 [facility] Comment on above: Performed By: #### L 501.2300, L500.2500, L501.5200, L100.0100 #### [facility] [address] [place], [address] Gram Stainon 09-27-2024 GS Acceptable Specimen? Yes (<25 Epithelial cells per/lpf) Gram Stain 3+ White Blood Cells 1+ Gram positive cocci in clusters 2+ Gram negative cocco bacillus [facility] Comment on above: Performed By: #### L 503.6030, L501.9520, L500.4050, L503.6550, L100.0100, L506.1001 #### [facility] [address] [place], [address] Laboratory - Chemistry and C hemistry - challengeOrdered By: Esperanza Myers on 09-27-2024 AST [Catalytic activity/Vol] 12 U/L Low 15-37 [facility] Legionella Antigen Urineon 0 09-27-2024 LEGU URINE, CLEAN CATCH Legionella Antigen result interpretation: L pneumo Ag Ur Ql Negative Presumptive negative for Legionella pneumophila serogroup 1 antigen in urine, suggesting no recent or current infection. Legionella Ag, Urine Negative (See interpretation below) [facility] Comment on above: Performed By: #### L 501.2300, L500.2500, L501.5200, L100.0100 #### [facility] [address] [facility] [place], [place], [id number] RESPIRATORY PANEL MOLECULARo n 09-27-2024 RP PANEL [...] Not Detected RSV B Not Detected Normal [facility] Comment on above: Performed By: #### L 503.6030, L501.9520, L500.4050, L503.6550, L100.0100, L506.1001 #### [facility] [address] [facility] [place], [place], [address] Serum globulin measurementOr dered By: Esperanza Lucia on 09-27-2024 Globulin (S) [Mass/Vol] 3.5 g/dL 2.2-4.2 [facility] Serum or plasma alanine joshi otransferase (ALT) measurementOrdered By: Esperanza Lucia on 09-27-2024 ALT [Catalytic activity/Vol] 14 U/L 13-56 [facility] Serum or plasma albumin kamlesh urement (mass/volume)Ordered By: Esperanza Lucia on 09-27-2024 Albumin [Mass/Vol] 2.4 g/dL Low 3.2-5.0 [facility] Serum or plasma alkaline mena sphatase measurementOrdered By: [facility] on 09-27-2024 ALP [Catalytic activity/Vol] 65 U/L 45-117 [facility] Strep pneumoniae Antig(UR,CS F)on 09-27-2024 STPAG URINE INTERPRETATION Strep pneumoniae Antig(UR,CSF) Negative Urine Presumptive negative for pneumococcal pneumonia, suggesting no current or recent pneumococcal infection. Infection due to S pneumoniae cannot be ruled out since the antigen present in the sample may be below the detection limit of the test. Strep pneumo Test Negative URINE (See interpretation below) Normal [facility] Comment on above: Performed By: #### L 501.2300, L500.2500, L501.5200, L100.0100 #### [facility] [address] [place], [address] Total proteinOrdered By: Jeimy Myers on 09-27-2024 Protein [Mass/Vol] 5.9 g/dL Low 6.4-8.2 [facility] Urine Legionella pneumophila antigen detectionOrdered By: Esperanza Myers on 09-27-2024 L. pneumophila Ag Ql (U) [facility] 12 Lead EKGon 09-26-2024 12 Lead EKG [facility] Cardiovascular Services [address] [place] [address] 12 Lead EKG 09/26/24 1625 MR#: [id number] Acct: [id number] Name: ANGELES LARIOS Rep #: [id number] : 1960 64 From: Efrain Samuel MD Attending Dr: Dr. Scott Mcneal MD Status: ADM IN Ordering Dr: Joaquín Patel Date: 09/26/24 Location: [place] Sex: F C Admitted: 09/26/24 Test Reason [...] Abnormal ECG Confirmed by LAUREN FAROOQ, EFRAIN ([id number]), food editor ELVIRA RODRÍGUEZ ([id number]) on 09/27/2024 8:55:15 AM Referred By: Esperanza Myers Confirmed By: EFRAIN SAMUEL MD 09/27/24 0855 Date Efrain Samuel MD CC: MARIAN Patel; Dr. Esperanza Myers MD; Dr. Scott Mcneal MD; Dr. Martin Gutierrez MD Signed Normal [facility] Basic Metabolic Profile (BMP )on 09-26-2024 BUN/CRE 26.1 RATIO High 10-20 [facility] Comment on above: Performed By: #### L 503.6030, L501.9520, L500.4050, L503.6550, L100.0100, L506.1001 #### [facility] [address] [place], [address] CA,Total 8.9 mg/dL Normal 8.5-10.1 [facility] Comment on above: Performed By: #### L 503.6030, L501.9520, L500.4050, L503.6550, L100.0100, L506.1001 #### [facility] [address] [place], [address] Chloride [Moles/Vol] 99 mmol/L Normal 98-107 [facility] Comment on above: Performed By: #### L 503.6030, L501.9520, L500.4050, L503.6550, L100.0100, L506.1001 #### [facility] [address] [place], [address] CO2 [Moles/Vol] 28.0 mmol/L Normal 21.0-32.0 [facility] Comment on above: Performed By: #### L 503.6030, L501.9520, L500.4050, L503.6550, L100.0100, L506.1001 #### [facility] [address] [place], [address] Creatinine [Mass/Vol] 0.69 mg/dL Normal 0.55-1.02 [facility] Comment on above: Result Comment: The validity of the calculated GFR GFRAA in patients over 70 years has not been determined. Clinical correlation is essential. Performed By: #### L 503.6030, L501.9520, L500.4050, L503.6550, L100.0100, L506.1001 #### [facility] [address] [place], [address] ECRCL 76.53 ml/min Normal [facility] Comment on above: Performed By: #### L 503.6030, L501.9520, L500.4050, L503.6550, L100.0100, L506.1001 #### [facility] [address] [place], [address] EST GFR - AA 109 mL/min Normal >60 [facility] Comment on above: Result Comment: Afri can Qatari GFR Calc Performed By: #### L 503.6030, L501.9520, L500.4050, L503.6550, L100.0100, L506.1001 #### [facility] [address] [place], [address] GAP 8 Normal 5-15 [facility] Comment on above: Performed By: #### L 503.6030, L501.9520, L500.4050, L503.6550, L100.0100, L506.1001 #### [facility] [address] [place], [address] GFR/1.73 sq M.predicted among non-blacks MDRD (S/P/Bld) [Vol rate/Area] 90 mL/min/{1.73_m2} Normal >60 [facility] Comment on above: Result Comment: Non- GFR Calc Performed By: #### L 503.6030, L501.9520, L500.4050, L503.6550, L100.0100, L506.1001 #### [facility] [address] [place], [address] Glucose [Mass/Vol] 125 mg/dL High 74-106 [facility] Comment on above: Result Comment: Fast ing Glucose result from 100 to 125 mg/dL suggests IMPAIRED HOMEOSTASIS per A.D.A. criteria. Performed By: #### L 503.6030, L501.9520, L500.4050, L503.6550, L100.0100, L506.1001 #### [facility] [address] [place], [address] Potassium [Moles/Vol] 3.4 mmol/L Low 3.5-5.1 [facility] Comment on above: Result Comment: Slig ht Hemolysis, Result may be falsely increased. Performed By: #### L 503.6030, L501.9520, L500.4050, L503.6550, L100.0100, L506.1001 #### [facility] [address] [place], [address] Sodium [Moles/Vol] 135 mmol/L Low 136-145 [facility] Comment on above: Performed By: #### L 503.6030, L501.9520, L500.4050, L503.6550, L100.0100, L506.1001 #### [facility] [address] [place], [address] Urea nitrogen [Mass/Vol] 18 mg/dL Normal 7-18 [facility] Comment on above: Performed By: #### L 503.6030, L501.9520, L500.4050, L503.6550, L100.0100, L506.1001 #### [facility] [address] [place], [address] Bedside Glucoseon 09-26-2024 FINGERSTICK GLU 129 mg/dL High 74-106 [facility] Comment on above: Result Comment: SEAN CLARK OF PATIENT CARE PER NURSING PROTOCOL Performed By: #### L 503.6030, L501.9520, L500.4050, L503.6550, L100.0100, L506.1001 #### [facility] [address] [place], [address] Blood cultureOrdered By: Dee Dee Patel on 09-26-2024 Bacteria identified Cx Nom (Bld) No growth in 5 days. [facility] CBC W/Diff, Automatedon Absolute Lymph 0.91 X10 3/uL Normal 0.83-4.51 [facility] Comment on above: Performed By: #### L 503.6030, L501.9520, L500.4050, L503.6550, L100.0100, L506.1001 #### [facility] [address] [place], [address] Absolute Neut 3.6 X10 3/uL Normal 2.0-7.7 [facility] Comment on above: Performed By: #### L 503.6030, L501.9520, L500.4050, L503.6550, L100.0100, L506.1001 #### [facility] [address] [place], [address] Basophils/100 WBC (Bld) 0.2 % Normal 0-[address] [facility] Comment on above: Performed By: #### L 503.6030, L501.9520, L500.4050, L503.6550, L100.0100, L506.1001 #### [facility] [address] [place], [address] Eosinophils/100 WBC (Bld) 0.0 % Normal 0-5 [facility] Comment on above: Performed By: #### L 503.6030, L501.9520, L500.4050, L503.6550, L100.0100, L506.1001 #### [facility] [address] [place], [address] Erythrocyte distribution width (RBC) [Ratio] 12.1 % Normal 11.6-14.6 [facility] Comment on above: Performed By: #### L 503.6030, L501.9520, L500.4050, L503.6550, L100.0100, L506.1001 #### [facility] [address] [place], [address] Hematocrit (Bld) [Volume fraction] 39.0 % Normal 37-47 [facility] Comment on above: Performed By: #### L 503.6030, L501.9520, L500.4050, L503.6550, L100.0100, L506.1001 #### [facility] [address] [place], [address] Hemoglobin (Bld) [Mass/Vol] 13.0 g/dL Normal 12.0-15.0 [facility] Comment on above: Performed By: #### L 503.6030, L501.9520, L500.4050, L503.6550, L100.0100, L506.1001 #### [facility] [address] [place], [address] IG% 0.800 Normal 0.0-0.9 [facility] Comment on above: Result Comment: IG% - Immature Granulocytes (promyelocytes, myelocytes and metamyelocytes) > 1% indicates that a LEFT SHIFT is Present. Performed By: #### L 503.6030, L501.9520, L500.4050, L503.6550, L100.0100, L506.1001 #### [facility] [address] [place], [address] Lymphocytes/100 WBC (Bld) 17.4 % Low 19-41 [facility] Comment on above: Performed By: #### L 503.6030, L501.9520, L500.4050, L503.6550, L100.0100, L506.1001 #### [facility] [address] [place], [address] MCH (RBC) [Entitic mass] 34.8 pg High 27.0-32.0 [facility] Comment on above: Performed By: #### L 503.6030, L501.9520, L500.4050, L503.6550, L100.0100, L506.1001 #### [facility] [address] [place], [address] MCHC (RBC) [Mass/Vol] 33.3 g/dL Normal 32-36 [facility] Comment on above: Performed By: #### L 503.6030, L501.9520, L500.4050, L503.6550, L100.0100, L506.1001 #### [facility] [address] [place], [address] MCV (RBC) [Entitic vol] 104.3 fL High 81-99 [facility] Comment on above: Performed By: #### L 503.6030, L501.9520, L500.4050, L503.6550, L100.0100, L506.1001 #### [facility] [address] [place], [address] Monocytes/100 WBC (Bld) 13.2 % High 0-10 [facility] Comment on above: Performed By: #### L 503.6030, L501.9520, L500.4050, L503.6550, L100.0100, L506.1001 #### [facility] [address] [place], [address] Neutrophils/100 WBC (Bld) 68.4 % Normal 47-70 [facility] Comment on above: Performed By: #### L 503.6030, L501.9520, L500.4050, L503.6550, L100.0100, L506.1001 #### [facility] [address] [place], [address] Nucleated RBC (Bld) [#/Vol] 0 10*3/uL Normal 0-5 [facility] Comment on above: Performed By: #### L 503.6030, L501.9520, L500.4050, L503.6550, L100.0100, L506.1001 #### [facility] [address] [place], [address] Platelet mean volume (Bld) [Entitic vol] 10.3 fL Normal 6.2-12.0 [facility] Comment on above: Performed By: #### L 503.6030, L501.9520, L500.4050, L503.6550, L100.0100, L506.1001 #### [facility] [address] [place], [address] Platelets (Bld) [#/Vol] 209 10*3/uL Normal 150-450 [facility] Comment on above: Performed By: #### L 503.6030, L501.9520, L500.4050, L503.6550, L100.0100, L506.1001 #### [facility] [address] [place], [address] RBC (Bld) [#/Vol] 3.74 10*6/uL Low 4.2-5.4 [facility] Comment on above: Performed By: #### L 503.6030, L501.9520, L500.4050, L503.6550, L100.0100, L506.1001 #### [facility] [address] [place], [address] RDW SD 46.0 fl High 35.1-43.9 [facility] Comment on above: Performed By: #### L 503.6030, L501.9520, L500.4050, L503.6550, L100.0100, L506.1001 #### [facility] [address] [place], [address] WBC (Bld) [#/Vol] 5.2 10*3/uL Normal 4.4-11.0 [facility] Comment on above: Performed By: #### L 503.6030, L501.9520, L500.4050, L503.6550, L100.0100, L506.1001 #### [facility] [address] [place], [address] Chest PA and Lateralon 09-26 Chest PA and Lateral [facility] Imaging Services [address] [place] [address] Chest PA and Lateral MR#: [id number] Acct: [id number] Name: ANGELES LARIOS Rep #: [id number] : 1960 F 64 From: Stephen Velásquez MD PCP: Dr. Martin Gutierrez MD Status: [facility] ER Study: Chest PA and Lateral Date of Exam: 09/26/24 Exam# [id number] Ordering Dr: Joaquín Patel [employer] SPECIALIST-C PROCEDURE: CHEST PA AND LATERAL REASON FOR [...] developing inflammatory process. Reading Location: [facility] CC: [employer] SPECIALIST-Andry Patel; Dr. Martin Gutierrez MD P[employer] Network Technician: Signed Normal [facility] Emergency Department Summary on 09-26-2024 Emergency Department Summary [facility] Medical Records Department [address] [place] [address] Emergency Department Summary 09/26/24 MR#: [id number] Acct: [id number] Name: ANGELES LARIOS Rep #: [id number] : 1960 64 From: Rafita Ruiz DO PCP: Dr. Martin Gutierrez MD Status:ADM IN Location: [facility] [address]470-1 Patient was seen and examined with nurse [...] tired and is sleeping all the time. [facility] Medical History (Updated 09/26/24 @ [...] stenosis Dysarthria Atherosclerosis of coronary artery of ramona heart without angina pectoris Essential (primary) hypertension [...] 100 mg (more content not included)... Normal [facility] Glucose measurement at [facility] deOrdered By: Rafita Ruiz on 09-26-2024 Glucose [Mass/Vol] 129 mg/dL High 74-106 [facility] Comment on above: MANAGEMENT OF PATIEN T CARE PER NURSING PROTOCOL Gram stainOrdered By: Esperanza Myers on 09-26-2024 Microscopic observation Gram stain Nom (Unsp spec) [facility] H AND P Exam - Hospital[place] 09-26-2024 H&P Exam - Hospitalist [facility] Medical Records Department [address] [place] [address] H P Exam - Hospitalist 09/26/241921 MR#: [id number] Acct: [id number] Name: ANGELES LARIOS Rep #: [id number] : 1960 64 From: Esperanza Myers MD PCP: Dr. Martin Gutierrez MD Status:ADM IN Location: [facility] SN608-0 HPI - General General Date of Admission: [...] IBS, carotid disease who presents to the [facility] ED on 09/26/2024 with progressively worsening [...] as Solu-Medrol 60 mg IV x 1. [facility] History Tobacco use disorder, continuous Iron deficiency anemia due to chronic blood loss History of stress test Depression Hypothyroidism GERD (gastroesophageal reflux disease) Smoker Coronary artery disease Hypertension DVT (deep venous thrombosis) TIA (transient ischemic attack) Anemia Macrocytosis Nicotine dependence Chronic GI bleeding Peripheral vascular disease Non-rheumatic aortic stenosis Dysarthria Atherosclerosis of coronary artery of ramona heart without angina pectoris Essential (primary) hypertension [...] PO DAILY 09/26/24 Unknown H istory vitamins A,C,Z-rfgr-gyexxv 4,296 1 cap PO DAILY 09/26/24 Unknown [...] (coronary artery (more content not included)... Normal [facility] Influenza virus A and B and SARS-CoV-2 (COVID-19) and Respiratory syncytial virus RNAOrdered By: Joaquín Patel on 09-26-2024 SARS-CoV-2 (COVID-19) RNA RENATE+probe Ql (Unsp spec) Influenzae A Abnormal [facility] Lactic Acidon 09-26-2024 Lactate [Moles/Vol] 1.6 mmol/L Normal 0.4-1.9 [facility] Comment on above: Order Comment: Y Performed By: #### L 501.2300, L500.2500, L501.5200, L100.0100 #### [facility] Laboratory [address] [place] [address], [address] Lactic acid measurementOrder ed By: Joaquín Patel on 09-26-2024 Lactate [Moles/Vol] 1.6 mmol/L 0.4-2.0 [facility] M100.678on 09-26-2024 SARS-CoV-2 (COVID-19) Ab IA Ql Normal Reference Range = Negative FLUABV+SARS-CoV-2+RSV Pnl Resp RENATE+probe GeneXpert Instrument, PCR method FLUABV+SARS-CoV-2+RSV Pnl Resp RENATE+probe Copy of report sent to Infection Control Printer [id number] 09/26/24 [facility]235 [facility] RESULTS CALLED TO STEVENSON LEVIN 09/26/24 1738 Edith Vergara. REPORT READ BACK BY SAME. SARS-CoV-2 (COVID 19) Negative INFLUENZA A A Positive A INFLUENZA B Negative RSV PCR Negative INFLUENZAE A Normal [facility] Comment on above: Performed By: #### L 503.6030, L501.9520, L500.4050, L503.6550, L100.0100, L506.1001 #### [facility] Laboratory [address] [place], [address] Magnesiumon 09-26-2024 Magnesium [Mass/Vol] 2.3 mg/dL Normal 1.6-2.6 [facility] Comment on above: Order Comment: Comme nts: may add to ED labs Result Comment: Mode rate Hemolysis, Result may be falsely increased. Performed By: #### L 501.2300, L500.2500, L501.5200, L100.0100 #### [facility] Laboratory [address] [place], [address] Microbial respiratory cultur eOrdered By: Esperanza Myers on 09-26-2024 Microorganism identified Cx Nom (Unsp spec) Haemophilus influenzae Abnormal [facility] Procalcitoninon 09-26-2024 Procalcitonin 0.14 ng/mL High 0.00-0.09 [facility] Comment on above: Result Comment: A procalcitonin [...] #### L 501.2300, L500.2500, L501.5200, L100.0100 #### [facility] Laboratory [address] [facility] [place], [place], [address] Respiratory pathogens detect ion panel by molecular detection methodOrdered By: Esperanza Myers on 09-26-2024 Respiratory pathogens DNA and RNA panel RENATE+probe (Resp) [facility] Serum procalcitonin measurem entOrdered By: Esperanza Myers on 09-26-2024 Procalcitonin [Mass/Vol] 0.14 ng/mL High 0.00-0.09 [facility] Comment on above: A procalcitonin (PCT ) [...] Screeningon 07-26-[address] Lung Screening [facility] Imaging Services [address] [place], [place] [address] Low Dose CT Lung Screening MR#: [id number] Acct: [id number] Name: ANGELES LARIOS Rep #: [id number] : 1960 F 64 From: Gamaliel ridley MD PCP: Dr. Martin Gutierrez MD Status: REG [facility] Study: Low Dose CT Lung Screening Date of Exam: 07/26 Exam# [id number] Ordering Dr: Margi Christian NP V[employer] SOLUTIONS SPECIALIST -C [id number] STUDY: LOW DOSE CT LUNG CANCER SCREENING [...] CC: MARIAN Christian; Dr. Martin Gutierrez MD Pc Network Technician: Signed Normal [facility] Oncology Visit Reporton Oncology Visit Report [facility] [address] [place] [address] OFFICE VISIT Date of Service: 07/26/24 1212 MR#: [id number] Acct: [id number] Name: ANGELES LARIOS Rep #: [id number] : 1960 From: Margi Rebolledo Age/Sex: 64/F Location: [facility] Status: Signed HPI HPI Reviewed eligibility [...] you fallen in the past year?: Yes [facility] Medical History (Updated 07/26/24 @ 14:58 by Margi Christian VACCINES SOLUTIONS SPECIALIST, VACC[employer]ES SOLUTIONS SPECIALIST-C) Tobacco use disorder, continuous Iron deficiency anemia due to chronic blood loss History of str (more content not included)... Normal [facility] Vitamin D,25 Hydroxyon 06-16 Vitamin D 25-OH 22.9 ng/mL Normal [facility] Comment on above: Result Comment: Shanti min D 25(OH) Status Range Deficiency <20 ng/mL (50nmol/L) Insufficiency 20 - 30 ng/mL (50 - 75 nmol/L) Sufficiency 30 - 100 ng/mL (75 - 250 nmol/L) Toxicity >100 ng/mL (>250 nmol/L) Performed By: #### L 501.2300, L500.2500, L501.5200, L100.0100 #### [facility] Laboratory [address] [place], [address] CBC W/Diff, Automatedon 05-25 Absolute Lymph 1.18 X10 3/uL Normal 0.83-4.51 [facility] Comment on above: Performed By: #### L 501.2300, L500.2500, L501.5200, L100.0100 #### [facility] Laboratory [address] [place], [address] Absolute Neut 4.6 X10 3/uL Normal 2.0-7.7 [facility] Comment on above: Performed By: #### L 501.2300, L500.2500, L501.5200, L100.0100 #### [facility] Laboratory [address] [place], [address] Basophils/100 WBC (Bld) 0.5 % Normal 0-[address] [facility] Comment on above: Performed By: #### L 501.2300, L500.2500, L501.5200, L100.0100 #### [facility] Laboratory [address] [place], [address] Eosinophils/100 WBC (Bld) 1.2 % Normal 0-5 [facility] Comment on above: Performed By: #### L 501.2300, L500.2500, L501.5200, L100.0100 #### [facility] Laboratory [address] [place], [address] Erythrocyte distribution width (RBC) [Ratio] 13.4 % Normal 11.6-14.6 [facility] Comment on above: Performed By: #### L 501.2300, L500.2500, L501.5200, L100.0100 #### [facility] Laboratory [address] [place], [address] Hematocrit (Bld) [Volume fraction] 38.6 % Normal 37-47 [facility] Comment on above: Performed By: #### L 501.2300, L500.2500, L501.5200, L100.0100 #### [facility] Laboratory [address] [place], [address] Hemoglobin (Bld) [Mass/Vol] 11.9 g/dL Low 12.0-15.0 [facility] Comment on above: Performed By: #### L 501.2300, L500.2500, L501.5200, L100.0100 #### [facility] Laboratory [address] [place], [address] IG% 0.300 Normal 0.0-0.9 [facility] Comment on above: Result Comment: IG% - Immature Granulocytes (promyelocytes, myelocytes and metamyelocytes) > 1% indicates that a LEFT SHIFT is Present. Performed By: #### L 501.2300, L500.2500, L501.5200, L100.0100 #### [facility] Laboratory [address] [place], [address] Lymphocytes/100 WBC (Bld) 17.9 % Low 19-41 [facility] Comment on above: Performed By: #### L 501.2300, L500.2500, L501.5200, L100.0100 #### [facility] Laboratory [address] [place], [address] MCH (RBC) [Entitic mass] 34.3 pg High 27.0-32.0 [facility] Comment on above: Performed By: #### L 501.2300, L500.2500, L501.5200, L100.0100 #### [facility] Laboratory [address] [place], [address] MCHC (RBC) [Mass/Vol] 30.8 g/dL Low 32-36 [facility] Comment on above: Performed By: #### L 501.2300, L500.2500, L501.5200, L100.0100 #### [facility] Laboratory [address] [place], [address] MCV (RBC) [Entitic vol] 111.2 fL High 81-[address] [facility] Comment on above: Performed By: #### L 501.2300, L500.2500, L501.5200, L100.0100 #### [facility] Laboratory [address] [place], [address] Monocytes/100 WBC (Bld) 10.6 % High 0-[address] [facility] Comment on above: Performed By: #### L 501.2300, L500.2500, L501.5200, L100.0100 #### [facility] Laboratory [address] [place], [address] Neutrophils/100 WBC (Bld) 69.5 % Normal 47-70 [facility] Comment on above: Performed By: #### L 501.2300, L500.2500, L501.5200, L100.0100 #### [facility] Laboratory [address] [place], [address] Nucleated RBC (Bld) [#/Vol] 0 10*3/uL Normal 0-5 [facility] Comment on above: Performed By: #### L 501.2300, L500.2500, L501.5200, L100.0100 #### [facility] Laboratory [address] [place], [address] Platelet mean volume (Bld) [Entitic vol] 9.4 fL Normal 6.2-12.0 [facility] Comment on above: Performed By: #### L 501.2300, L500.2500, L501.5200, L100.0100 #### [facility] Laboratory [address] [place], [address] Platelets (Bld) [#/Vol] 256 10*3/uL Normal 150-450 [facility] Comment on above: Performed By: #### L 501.2300, L500.2500, L501.5200, L100.0100 #### [facility] Laboratory [address] [place], [address] RBC (Bld) [#/Vol] 3.47 10*6/uL Low 4.2-5.4 [facility] Comment on above: Performed By: #### L 501.2300, L500.2500, L501.5200, L100.0100 #### [facility] Laboratory [address] [place], [address] RDW SD 55.8 fl High 35.1-43.9 [facility] Comment on above: Performed By: #### L 501.2300, L500.2500, L501.5200, L100.0100 #### [facility] Laboratory [address] [place], [address] WBC (Bld) [#/Vol] 6.6 10*3/uL Normal 4.4-11.0 [facility] Comment on above: Performed By: #### L 501.2300, L500.2500, L501.5200, L100.0100 #### [facility] Laboratory [address] [place], [address] Comprehensive Metabolic Prof ilon 06-15-2024 Albumin [Mass/Vol] 3.1 g/dL Low 3.2-5.0 [facility] Comment on above: Performed By: #### L 501.2300, L500.2500, L501.5200, L100.0100 #### [facility] Laboratory [address] [place], [address] Albumin/Globulin [Mass ratio] 1.1 {ratio} Normal 0.9-2.4 [facility] Comment on above: Performed By: #### L 501.2300, L500.2500, L501.5200, L100.0100 #### [facility] Laboratory [address] [place], [address] ALK P 81 U/L Normal 45-117 [facility] Comment on above: Performed By: #### L 501.2300, L500.2500, L501.5200, L100.0100 #### [facility] Laboratory [address] [place], [address] ALT [Catalytic activity/Vol] 51 U/L Normal 13-56 [facility] Comment on above: Performed By: #### L 501.2300, L500.2500, L501.5200, L100.0100 #### [facility] Laboratory [address] [place], [address] AST [Catalytic activity/Vol] 23 U/L Normal 15-37 [facility] Comment on above: Performed By: #### L 501.2300, L500.2500, L501.5200, L100.0100 #### [facility] Laboratory [address] [place], [address] Bilirubin [Mass/Vol] 0.20 mg/dL Normal 0.20-1.00 [facility] Comment on above: Result Comment: For patients on eltrombopag therapy, use of Dimension [place] TBIL is not recommended. Performed By: #### L 501.2300, L500.2500, L501.5200, L100.0100 #### [facility] Laboratory [address] [place], [address] BUN/CRE 19.4 RATIO Normal 10-20 [facility] Comment on above: Performed By: #### L 501.2300, L500.2500, L501.5200, L100.0100 #### [facility] Laboratory [address] [place], [address] CA,Total 9.6 mg/dL Normal 8.5-10.1 [facility] Comment on above: Performed By: #### L 501.2300, L500.2500, L501.5200, L100.0100 #### [facility] Laboratory [address] [place], [address] Chloride [Moles/Vol] 112 mmol/L High 98-107 [facility] Comment on above: Performed By: #### L 501.2300, L500.2500, L501.5200, L100.0100 #### [facility] Laboratory [address] [place], [address] CO2 [Moles/Vol] 27.0 mmol/L Normal 21.0-32.0 [facility] Comment on above: Performed By: #### L 501.2300, L500.2500, L501.5200, L100.0100 #### [facility] Laboratory [address] [place], [address] Creatinine [Mass/Vol] 0.72 mg/dL Normal 0.55-1.02 [facility] Comment on above: Result Comment: The validity of the calculated GFR GFRAA in patients over 70 years has not been determined. Clinical correlation is essential. Performed By: #### L 501.2300, L500.2500, L501.5200, L100.0100 #### [facility] Laboratory [address] [place], [address] EST GFR - AA 104 mL/min Normal >60 [facility] Comment on above: Result Comment: Afri can Qatari GFR Calc Performed By: #### L 501.2300, L500.2500, L501.5200, L100.0100 #### [facility] Laboratory [address] [place], [address] GAP 3 Low 5-15 [facility] Comment on above: Performed By: #### L 501.2300, L500.2500, L501.5200, L100.0100 #### [facility] Laboratory [address] [place], [address] GFR/1.73 sq M.predicted among non-blacks MDRD (S/P/Bld) [Vol rate/Area] 86 mL/min/{1.73_m2} Normal >60 [facility] Comment on above: Result Comment: Non- GFR Calc Performed By: #### L 501.2300, L500.2500, L501.5200, L100.0100 #### [facility] Laboratory [address] [place], [address] Globulin (S) [Mass/Vol] 2.9 g/dL Normal 2.2-4.2 [facility] Comment on above: Performed By: #### L 501.2300, L500.2500, L501.5200, L100.0100 #### [facility] Laboratory [address] [place], [address] Glucose [Mass/Vol] 103 mg/dL Normal 74-106 [facility] Comment on above: Result Comment: Fast ing Glucose result from 100 to 125 mg/dL suggests IMPAIRED HOMEOSTASIS per A.D.A. criteria. Performed By: #### L 501.2300, L500.2500, L501.5200, L100.0100 #### [facility] Laboratory [address] [place], [address] Potassium [Moles/Vol] 3.8 mmol/L Normal 3.5-5.1 [facility] Comment on above: Performed By: #### L 501.2300, L500.2500, L501.5200, L100.0100 #### [facility] Laboratory [address] [place], [address] Sodium [Moles/Vol] 143 mmol/L Normal 136-145 [facility] Comment on above: Performed By: #### L 501.2300, L500.2500, L501.5200, L100.0100 #### [facility] Laboratory [address] [place], [address] T PROT 6.0 g/dL Low 6.4-8.2 [facility] Comment on above: Performed By: #### L 501.2300, L500.2500, L501.5200, L100.0100 #### [facility] Laboratory [address] [place], [address] Urea nitrogen [Mass/Vol] 14 mg/dL Normal 7-18 [facility] Comment on above: Performed By: #### L 501.2300, L500.2500, L501.5200, L100.0100 #### [facility] Laboratory [address] [place], [address] Thyroid Stim Hormone (TSH)on 06-15-2024 TSH 2.190 uIU/mL Normal 0.358-3.740 [facility] Comment on above: Performed By: #### L 501.2300, L500.2500, L501.5200, L100.0100 #### [facility] Laboratory [address] [place], [place], [address] Spine Lumbar (Routine)on Spine Lumbar (Routine) [facility] Imaging Services [address] [place] [address] Spine Lumbar (Routine) MR#: [id number] Acct: [id number] Name: ANGELES LARIOS Rep #: [id number] : 1960 F 64 From: Mason Montgomery MD PCP: Dr. Martin Gutierrez MD Status: REG CLI Study: Spine Lumbar (Routine) Date of Exam: 06/13/24 Exam# [id number] Ordering Dr: Martin Gutierrez MD [id number] EXAM: MR LUMBAR SPINE WITHOUT INTRAVENOUS CONTRAST [...] EDT , CC: Dr. Martin Gutierrez MD Pc Network Technician: Signed [facility] L/S Spine Bending Flex/Freeman 05-23-2024 L/S Spine Bending Flex/Ext [facility] Imaging Services [address] [place] [address] [id number] L/S Spine Bending Flex/Ext MR#: [id number] Acct: [id number] Name: ANGELES LARIOS Rep #: [id number] : 1960 F 64 From: Marshal Rosales MD PCP: Dr. Martin Gutierrez MD Status: REG CLI Study: L/S Spine Bending Flex/Ext Date of Exam: 05/23 Exam# [id number] Ordering Dr: Armando Ga MD [id number] STUDY: X-RAY - LUMBAR SPINE REASON FOR [...] Armando Ga MD; Dr. Martin Gutierrez MD Pc Network Technician: Signed Normal [facility] L/S Spine Min 4 Viewson 04-24 L/S Spine Min 4 Views [facility] Imaging Services [address] [place] [address] [id number] L/S Spine Min 4 Views MR#: [id number] Acct: [id number] Name: ANGELES LARIOS Rep #: [id number] : 1960 F 64 From: Gamaliel ridley MD PCP: Dr. Martin Gutierrez MD Status: REG CLI Study: L/S Spine Min 4 Views Date of Exam: 05/11/24 Exam# [id number] Ordering Dr: Martin Gutierrez MD [id number] STUDY: X-RAY - LUMBAR SPINE REASON FOR [...] EDT , CC: Dr. Martin Gutierrez MD Pc Network Technician: Signed Normal [facility] Absolute lymphocyte countOrd ered By: Martin Gutierrez on 12-18-2023 Lymphocytes Auto (Unsp spec) [#/Vol] 1.53 10*3/uL 0.83-4.51 [facility] Automated lymphocyte count a s percentage of total leukocytesOrdered By: Martin Gutierrez on 12-18-2023 Lymphocytes/100 WBC Auto (Unsp spec) 26.8 % 19-41 [facility] Basophil percentageOrdered B y: Martin Gutierrez on 12-18-2023 Basophils/100 WBC (Bld) 1.2 % 0-[address] [facility] Bilirubin [Mass/Vol] 0.30 mg/dL 0.20-1.00 [facility] Comment on above: For patients on eltr ombopag therapy, use of Dimension [place] TBIL is not recommended. Chloride [Moles/Vol] 110 mmol/L 98-107 [facility] Eosinophils/100 WBC (Bld) 1.8 % 0-5 [facility] Glucose [Mass/Vol] 104 mg/dL 74-106 [facility] Comment on above: Fasting Glucose resu lt from 100 to 125 mg/dL suggests IMPAIRED HOMEOSTASIS per A.D.A. criteria. Hemoglobin (Bld) [Mass/Vol] 10.5 g/dL 12.0-15.0 [facility] Monocytes/100 WBC (Bld) 9.6 % 0-[address] [facility] Neutrophils (Bld) [#/Vol] 3.4 10*3/uL 2.0-7.7 [facility] Neutrophils/100 WBC (Bld) 59.9 % 47-70 [facility] Potassium [Moles/Vol] 3.7 mmol/L 3.5-5.1 [facility] Protein [Mass/Vol] 6.3 g/dL 6.4-8.2 [facility] Sodium [Moles/Vol] 142 mmol/L 136-145 [facility] WBC (Bld) [#/Vol] 5.7 10*3/uL 4.4-11.0 [facility] Determination of erythrocyte mean corpuscular volume (MCV)Ordered By: Matrin Gutierrez on 12-18-2023 MCV (RBC) [Entitic vol] 113.6 fL 81-[address] [facility] Erythrocyte distribution wid th ratioOrdered By: Martin Gutierrez 12-18-2023 Erythrocyte distribution width (RBC) [Ratio] 13.9 % 11.6-14.6 [facility] Erythrocyte distribution wid th standard deviationOrdered By: Martin Gutierrez 12-18-2023 Erythrocyte distribution width (RBC) [Entitic vol] 57.8 fL 35.1-43.9 [facility] Hematocrit Auto (Bld) [Volum e fraction]Ordered By: [facility] Matt on 12-18-2023 Hematocrit (Bld) [Volume fraction] 34.3 % 37-47 [facility] Immature granulocytes/100 WB C Auto (Bld)Ordered By: Martin Gutierrez 12-18-2023 Immature granulocytes/100 WBC (Bld) 0.700 % 0.0-0.9 [facility] Comment on above: IG% - Immature Granu locytes (promyelocytes, myelocytes and metamyelocytes) > 1% indicates that a LEFT SHIFT is Present. Laboratory - Chemistry and C hemistry - challengeOrdered By: Martin Gutierrez on 12-18-2023 Albumin/Globulin [Mass ratio] 1.2 {ratio} 0.9-2.4 [facility] ALP [Catalytic activity/Vol] 94 U/L 45-117 [facility] ALT [Catalytic activity/Vol] 37 U/L 13-56 [facility] CO2 [Moles/Vol] 29.0 mmol/L 21.0-32.0 [facility] Globulin (S) [Mass/Vol] 2.9 g/dL 2.2-4.[address] [facility] Urea nitrogen/Creatinine [Mass ratio] 16.7 mg/mg 10-20 [facility] Laboratory - Hematology and Cell countsOrdered By: Martin Gutierrez on 12-18-2023 MCH (RBC) [Entitic mass] 34.8 pg 27.0-32.0 [facility] MCHC (RBC) [Mass/Vol] 30.6 g/dL 32-36 [facility] Nucleated RBC/100 WBC (Bld) [Ratio] 0 % 0-5 [facility] Platelet mean volume (Bld) [Entitic vol] 9.6 fL 6.2-12.0 [facility] Platelets (Bld) [#/Vol] 289 10*3/uL 150-450 [facility] No Panel InformationOrdered By: Martin Gutierrez on 12-18-2023 Estimated GFR (MDRD) Amer 104 mL/min >60 [facility] Comment on above: GFR Calc Estimated GFR (MDRD) Non-Af Amer 86 mL/min >60 [facility] Comment on above: Non- GFR Calc Vitamin D 25-Hydroxy 15.2 ng/mL [facility] Comment on above: Vitamin D 25(OH) Sta tus Range Deficiency <20 ng/mL (50nmol/L) Insufficiency 20 - 30 ng/mL (50 - 75 nmol/L) Sufficiency 30 - 100 ng/mL (75 - 250 nmol/L) Toxicity >100 ng/mL (>250 nmol/L) RBC Auto (Bld) [#/Vol]Ordere d By: Martin Gutierrez on 12-18-2023 RBC (Bld) [#/Vol] 3.02 10*6/uL 4.2-5.4 [facility] Serum or plasma calcium kamlesh urement (mass/volume)Ordered By: Martin Gutierrez on 12-18-2023 Calcium [Mass/Vol] 8.7 mg/dL 8.5-10.1 [facility] Serum or plasma creatinine m easurement (mass/volume)Ordered By: Martin Gutierrez on 12-18-2023 Creatinine [Mass/Vol] 0.72 mg/dL 0.55-1.02 [facility] Comment on above: The validity of the calculated GFR & GFRAA in patients over 70 years has not been determined. Clinical correlation is essential. Serum or plasma thyroid stim ulating hormone (TSH) measurement (units/volume)Ordered By: Martin Gutierrez on 12-18-2023 TSH Qn 2.41 uIU/mL 0.358-3.74 [facility] Serum or plasma urea nitroge n measurement (mass/volume)Ordered By: Martin Gutierrez on 12-18-2023 Urea nitrogen [Mass/Vol] 12 mg/dL 7-18 [facility] Thin prep Papanicolaou smear with manual screeningOrdered By: Martin Gutierrez on 12-18-2023 Thin prep Papanicolaou smear with manual screening 3.4 g/dL 3.2-5.0 [facility] Thin prep Papanicolaou smear with manual screening 22 U/L 15-37 [facility] Thin prep Papanicolaou smear with manual screening 3 5-15 [facility] Absolute lymphocyte countOrd ered By: Simon Ulloa on 09-30-2023 Lymphocytes Auto (Unsp spec) [#/Vol] 1.61 10*3/uL 0.83-4.51 [facility] Automated lymphocyte count a s percentage of total leukocytesOrdered By: Simon Ulloa on 09-30-2023 Lymphocytes/100 WBC Auto (Unsp spec) 18.0 % 19-41 [facility] Basophil percentageOrdered B y: Simon Ulloa on 09-30-2023 Basophils/100 WBC (Bld) 0.8 % 0-[address] [facility] Eosinophils/100 WBC (Bld) 1.1 % 0-5 [facility] Hemoglobin (Bld) [Mass/Vol] 13.7 g/dL 12.0-15.0 [facility] Monocytes/100 WBC (Bld) 7.0 % 0-10 [facility] Neutrophils (Bld) [#/Vol] 6.5 10*3/uL 2.0-7.7 [facility] Neutrophils/100 WBC (Bld) 72.7 % 47-70 [facility] WBC (Bld) [#/Vol] 8.9 10*3/uL 4.4-11.0 [facility] Determination of erythrocyte mean corpuscular volume (MCV)Ordered By: Simon Ulloa on 09-30-2023 MCV (RBC) [Entitic vol] 105.7 fL 81-[address] [facility] Erythrocyte distribution wid th ratioOrdered By: [facility] Artemio on 09-30-2023 Erythrocyte distribution width (RBC) [Ratio] 14.0 % 11.6-14.6 [facility] Erythrocyte distribution wid th standard deviationOrdered By: Simon Ulloa on 09-30-2023 Erythrocyte distribution width (RBC) [Entitic vol] 54.8 fL 35.1-43.9 [facility] Hematocrit Auto (Bld) [Volum e fraction]Ordered By: Simon Ulloa on 09-30-2023 Hematocrit (Bld) [Volume fraction] 43.0 % 37-47 [facility] Immature granulocytes/100 WB C Auto (Bld)[facility] Immature granulocytes/100 WBC (Bld) 0.400 % 0.0-0.9 [facility] Comment on above: IG% - Immature Granu locytes (promyelocytes, myelocytes and metamyelocytes) > 1% indicates that a LEFT SHIFT is Present. Iron measurement (mass/mass) Ordered By: Simon Ulloa on 09-30-2023 Iron (Unsp spec) [Mass/Mass] 39 ug/dL 50-170 [facility] Laboratory - Chemistry and C hemistry - challengeOrdered By: Simon Ulloa on 09-30-2023 Cobalamin (Vitamin B12) [Mass/Vol] 257 pg/mL 211-911 [facility] Ferritin [Mass/Vol] 27 ng/mL 8-252 [facility] Laboratory - Hematology and Cell countsOrdered By: Simon Ulloa on 09-30-2023 MCH (RBC) [Entitic mass] 33.7 pg 27.0-32.0 [facility] MCHC (RBC) [Mass/Vol] 31.9 g/dL 32-36 [facility] Nucleated RBC/100 WBC (Bld) [Ratio] 0 % 0-5 [facility] Platelet mean volume (Bld) [Entitic vol] 9.4 fL 6.2-12.0 [facility] Platelets (Bld) [#/Vol] 279 10*3/uL 150-450 [facility] No Panel InformationOrdered By: Simon Ulloa on 09-30-2023 Total Iron Binding Capacity 346 ug/dL 250-450 [facility] RBC Auto (Bld) [#/Vol]Ordere d By: Simon Ulloa on 09-30-2023 RBC (Bld) [#/Vol] 4.07 10*6/uL 4.2-5.4 [facility] Serum or plasma iron saturat ion measurement (mass fraction)Ordered By: Simon Ulloa on 09-30-2023 Iron saturation [Mass fraction] 11.3 % 15.0-55.0 [facility] Absolute lymphocyte countOrd ered By: Martin Gutierrez on 08-26-2023 Lymphocytes Auto (Unsp spec) [#/Vol] 1.75 10*3/uL 0.83-4.51 [facility] Basophil percentageOrdered B y: Martin Gutierrez on 08-26-2023 Basophils/100 WBC (Bld) 0.6 % 0-[address] [facility] Eosinophils/100 WBC (Bld) 0.6 % 0-5 [facility] Neutrophils (Bld) [#/Vol] 6.9 10*3/uL 2.0-7.7 [facility] Neutrophils/100 WBC (Bld) 69.7 % 47-70 [facility] WBC (Bld) [#/Vol] 9.9 10*3/uL 4.4-11.0 [facility] Blood erythrocytes count (nu mber/volume)Ordered By: Martin Gutierrez on 08-26-2023 RBC (Bld) [#/Vol] 3.61 10*6/uL 4.2-5.4 [facility] Blood hemoglobin measurement (mass/volume)Ordered By: Martin Gutierrez on 08-26-2023 Hemoglobin (Bld) [Mass/Vol] 12.1 g/dL 12.0-15.0 [facility] Blood lymphocytes/100 leukoc ytesOrdered By: Martin Gutierrez on 08-26-2023 Lymphocytes/100 WBC (Bld) 17.6 % 19-41 [facility] Blood monocytes/100 leukocyt esOrdered By: Martin Gutierrez on 08-26-2023 Monocytes/100 WBC (Bld) 11.3 % 0-[address] [facility] Blood platelet mean volumeOr dered By: Martin Gutierrez on 08-26-2023 Platelet mean volume (Bld) [Entitic vol] 9.9 fL 6.2-12.0 [facility] Determination of erythrocyte mean corpuscular volume (MCV)Ordered By: Martin Gutierrez on 08-26-2023 MCV (RBC) [Entitic vol] 104.4 fL 81-[address] [facility] Hematocrit Auto (Bld) [Volum e fraction]Ordered By: Martin Gutierrez on 08-26-2023 Hematocrit (Bld) [Volume fraction] 37.7 % 37-47 [facility] Iron measurement (mass/mass) Ordered By: Martin Gutierrez on 08-26-2023 Iron (Unsp spec) [Mass/Mass] 14 ug/dL 50-170 [facility] Laboratory - Hematology and Cell countsOrdered By: Martin Gutierrez on 08-26-2023 Erythrocyte distribution width (RBC) [Entitic vol] 47.9 fL 35.1-43.9 [facility] Erythrocyte distribution width (RBC) [Ratio] 12.4 % 11.6-14.6 [facility] Immature granulocytes/100 WBC (Bld) 0.200 % 0.0-0.9 [facility] Comment on above: IG% - Immature Granu locytes (promyelocytes, myelocytes and metamyelocytes) > 1% indicates that a LEFT SHIFT is Present. MCH (RBC) [Entitic mass] 33.5 pg 27.0-32.0 [facility] Nucleated RBC/100 WBC (Bld) [Ratio] 0 % 0-5 [facility] MCHC Auto (RBC) [Mass/Vol]Or dered By: Martin Gutierrez on 08-26-2023 MCHC (RBC) [Mass/Vol] 32.1 g/dL 32-36 [facility] Platelets bldOrdered By: Martin Gutierrez on 08-26-2023 Platelets (Bld) [#/Vol] 295 10*3/uL 150-450 [facility] Absolute lymphocyte countOrd ered By: Martin Gutierrez on 06-09-2023 Lymphocytes Auto (Unsp spec) [#/Vol] 1.24 10*3/uL 0.83-4.51 [facility] Basophil percentageOrdered B y: Martin Gutierrez on 06-09-2023 Basophils/100 WBC (Bld) 0.9 % 0-[address] [facility] Bilirubin [Mass/Vol] 0.20 mg/dL 0.20-1.00 [facility] Comment on above: For patients on eltr ombopag therapy, use of Dimension [place] TBIL is not recommended. Chloride [Moles/Vol] 109 mmol/L 98-107 [facility] Eosinophils/100 WBC (Bld) 2.1 % 0-5 [facility] Glucose [Mass/Vol] 141 mg/dL 74-106 [facility] Comment on above: Fasting Glucose resu lt greater than or equal to 126 mg/dL suggests DIABETES MELLITUS per A.D.A. criteria. Neutrophils (Bld) [#/Vol] 3.6 10*3/uL 2.0-7.7 [facility] Neutrophils/100 WBC (Bld) 66.2 % 47-70 [facility] Potassium [Moles/Vol] 3.8 mmol/L 3.5-5.1 [facility] Protein [Mass/Vol] 6.8 g/dL 6.4-8.2 [facility] Sodium [Moles/Vol] 141 mmol/L 136-145 [facility] WBC (Bld) [#/Vol] 5.4 10*3/uL 4.4-11.0 [facility] Blood erythrocytes count (nu mber/volume)Ordered By: Martin Gutierrez on 06-09-2023 RBC (Bld) [#/Vol] 3.81 10*6/uL 4.2-5.4 [facility] Blood hemoglobin measurement (mass/volume)Ordered By: Martin Gutierrez on 06-09-2023 Hemoglobin (Bld) [Mass/Vol] 13.2 g/dL 12.0-15.0 [facility] Blood lymphocytes/100 leukoc ytesOrdered By: Martin Gutierrez on 06-09-2023 Lymphocytes/100 WBC (Bld) 23.1 % 19-41 [facility] Blood monocytes/100 leukocyt esOrdered By: Martin Gutierrez on 06-09-2023 Monocytes/100 WBC (Bld) 7.5 % 0-[address] [facility] Blood platelet mean volumeOr dered By: Martin Gutierrez on 06-09-2023 Platelet mean volume (Bld) [Entitic vol] 9.5 fL 6.2-12.0 [facility] Determination of erythrocyte mean corpuscular volume (MCV)Ordered By: Martin Gutierrez on 06-09-2023 MCV (RBC) [Entitic vol] 108.4 fL 81-[address] [facility] Hematocrit Auto (Bld) [Volum e fraction]Ordered By: Martin Matt on 06-09-2023 Hematocrit (Bld) [Volume fraction] 41.3 % 37-47 [facility] Laboratory - Chemistry and C hemistry - challengeOrdered By: Martin Gutierrez on 06-09-2023 ALP [Catalytic activity/Vol] 130 U/L 45-117 [facility] ALT [Catalytic activity/Vol] 21 U/L 13-56 [facility] CO2 [Moles/Vol] 28.0 mmol/L 21.0-32.0 [facility] Globulin (S) [Mass/Vol] 3.5 g/dL 2.2-4.2 [facility] Urea nitrogen/Creatinine [Mass ratio] 14.2 mg/mg 10-20 [facility] Laboratory - Hematology and Cell countsOrdered By: Martin Gutierrez on 06-09-2023 Erythrocyte distribution width (RBC) [Entitic vol] 57.1 fL 35.1-43.9 [facility] Erythrocyte distribution width (RBC) [Ratio] 14.5 % 11.6-14.6 [facility] Immature granulocytes/100 WBC (Bld) 0.200 % 0.0-0.9 [facility] Comment on above: IG% - Immature Granu locytes (promyelocytes, myelocytes and metamyelocytes) > 1% indicates that a LEFT SHIFT is Present. MCH (RBC) [Entitic mass] 34.6 pg 27.0-32.0 [facility] Nucleated RBC/100 WBC (Bld) [Ratio] 0 % 0-5 [facility] MCHC Auto (RBC) [Mass/Vol]Or dered By: Martin Gutierrez on 06-09-2023 MCHC (RBC) [Mass/Vol] 32.0 g/dL 32-36 [facility] No Panel InformationOrdered By: Martin Gutierrez on 06-09-2023 Estimated GFR (MDRD) Amer 96 mL/min >60 [facility] Comment on above: GFR Calc Estimated GFR (MDRD) Non-Af Amer 80 mL/min >60 [facility] Comment on above: Non- GFR Calc Thyroid Stimulating Hormone (TSH) 1.26 uIU/mL 0.358-3.74 [facility] Vitamin D 25-Hydroxy 23.0 ng/mL [facility] Comment on above: Vitamin D 25(OH) Sta tus Range Deficiency <20 ng/mL (50nmol/L) Insufficiency 20 - 30 ng/mL (50 - 75 nmol/L) Sufficiency 30 - 100 ng/mL (75 - 250 nmol/L) Toxicity >100 ng/mL (>250 nmol/L) Platelets bldOrdered By: Martin Gutierrez on 06-09-2023 Platelets (Bld) [#/Vol] 282 10*3/uL 150-450 [facility] Serum or plasma albumin kamlesh urement (mass/volume)Ordered By: Martin Gutierrez 06-09-2023 Albumin [Mass/Vol] 3.3 g/dL 3.2-5.0 [facility] Serum or plasma albumin/glob ulin mass ratioOrdered By: Martin Gutierrez 06-09-2023 Albumin/Globulin [Mass ratio] 0.9 {ratio} 0.9-2.4 [facility] Serum or plasma calcium kamlesh urement (mass/volume)Ordered By: Martin Gutierrez on 06-09-2023 Calcium [Mass/Vol] 8.7 mg/dL 8.5-10.1 [facility] Serum or plasma creatinine m easurement (mass/volume)Ordered By: Martin Gutierrez 06-09-2023 Creatinine [Mass/Vol] 0.77 mg/dL 0.55-1.02 [facility] Comment on above: The validity of the calculated GFR & GFRAA in patients over 70 years has not been determined. Clinical correlation is essential. Serum or plasma urea nitroge n measurement (mass/volume)Ordered By: Martin Gutierrez on 06-09-2023 Urea nitrogen [Mass/Vol] 11 mg/dL 7-18 [facility] Thin prep Papanicolaou smear with manual screeningOrdered By: Martin Gutierrez on 06-09-2023 Thin prep Papanicolaou smear with manual screening 11 U/L 15-37 [facility] Thin prep Papanicolaou smear with manual screening 4 5-15 [facility] Laboratory - Microbiology an d Antimicrobial susceptibilityOrdered By: Martin Gutierrez on 05-14-2023 SARS-CoV-2 (COVID-19) RNA RENATE+probe Ql (Unsp spec) [facility] SARS-CoV-2 (COVID-19) RNA RENATE+probe Ql (Unsp spec) [facility] No Panel InformationOrdered By: Martin Gutierrez on 05-14-2023 Influenza Types A,B Direct FA (MARQUEZ) [facility] Influenza Types A,B Direct FA (MARQUEZ) [facility] RSV Ag EIAOrdered By: Martin mary on 05-14-2023 RSV Ag Immune stain Ql (Tiss) [facility] RSV Ag Immune stain Ql (Tiss) [facility] Absolute lymphocyte countOrd ered By: Simon Ulloa on 04-15-2023 Lymphocytes Auto (Unsp spec) [#/Vol] 1.11 10*3/uL 0.83-4.51 [facility] Basophil percentageOrdered B y: Simon Ulloa on 04-15-2023 Basophils/100 WBC (Bld) 0.9 % 0-[address] [facility] Eosinophils/100 WBC (Bld) 1.7 % 0-5 [facility] Neutrophils (Bld) [#/Vol] 5.0 10*3/uL 2.0-7.7 [facility] Neutrophils/100 WBC (Bld) 70.3 % 47-70 [facility] WBC (Bld) [#/Vol] 7.1 10*3/uL 4.4-11.0 [facility] Blood erythrocytes count (nu mber/volume)Ordered By: Simon Ulloa on 04-15-2023 RBC (Bld) [#/Vol] 4.09 10*6/uL 4.2-5.4 [facility] Blood hemoglobin measurement (mass/volume)Ordered By: Simon Ulloa on 04-15-2023 Hemoglobin (Bld) [Mass/Vol] 14.3 g/dL 12.0-15.0 [facility] Blood lymphocytes/100 leukoc ytesOrdered By: [facility] 04-15-[facility]23 Lymphocytes/100 WBC (Bld) 15.7 % 19-41 [facility] Blood monocytes/100 leukocyt esOrdered By: [facility] Artemio on 04-15-2023 Monocytes/100 WBC (Bld) 11.3 % 0-[address] [facility] Blood platelet mean volumeOr dered By: [facility] on 04-15-2023 Platelet mean volume (Bld) [Entitic vol] 9.4 fL 6.2-12.0 [facility] Determination of erythrocyte mean corpuscular volume (MCV)Ordered By: [facility] 04-15-2023 MCV (RBC) [Entitic vol] 103.7 fL 81-[address] [facility] Hematocrit Auto (Bld) [Volum e fraction]Ordered By: Simon Ulloa on 04-15-2023 Hematocrit (Bld) [Volume fraction] 42.4 % 37-47 [facility] Hemoglobin in reticulocytes (mass per reticulocyte)Ordered By: [facility] Artemio on 04-15-2023 Hemoglobin (Reticulocytes) [Entitic mass] 35.8 pg 30-35 [facility] Iron measurement (mass/mass) Or[facility]: [facility] 04-[facility]23 Iron (Unsp spec) [Mass/Mass] 80 ug/dL 50-170 [facility] Laboratory - Hematology and Cell countsOrdered By: [facility] on 04-15-2023 Erythrocyte distribution width (RBC) [Entitic vol] 49.9 fL 35.1-43.9 [facility] Erythrocyte distribution width (RBC) [Ratio] 13.2 % 11.6-14.6 [facility] Immature granulocytes/100 WBC (Bld) 0.100 % 0.0-0.9 [facility] Comment on above: IG% - Immature Granu locytes (promyelocytes, myelocytes and metamyelocytes) > 1% indicates that a LEFT SHIFT is Present. MCH (RBC) [Entitic mass] 35.0 pg 27.0-32.0 [facility] Nucleated RBC/100 WBC (Bld) [Ratio] 0 % 0-5 [facility] MCHC Auto (RBC) [Mass/Vol]Or dered By: Simon Ulloa on 04-15-2023 MCHC (RBC) [Mass/Vol] 33.7 g/dL 32-36 [facility] No Panel InformationOrdered By: Simon Ulloa on 04-15-2023 Immature Reticulocyte Fraction 16.80 % 3.00-15.90 [facility] Reticulocyte Count 2.48 % 0.5-1.5 [facility] Total Iron Binding Capacity 335 ug/dL 250-450 [facility] Platelets bldOrdered By: Refugio Ulloa on 04-15-2023 Platelets (Bld) [#/Vol] 243 10*3/uL 150-450 [facility] Serum or plasma ferritin ibrahima surement (mass/volume)Ordered By: Simon Ulloa on 04-15-2023 Ferritin [Mass/Vol] 34 ng/mL 8-252 [facility] Serum or plasma iron saturat ion measurement (mass fraction)Ordered By: Simon Ulloa on 04-15-2023 Iron saturation [Mass fraction] 23.9 % 15.0-55.0 [facility] Absolute lymphocyte countOrd ered By: Dr. Gutierrez on 12-11-2022 Lymphocytes Auto (Unsp spec) [#/Vol] 1.66 10*3/uL 0.83-4.51 [facility] Basophil percentageOrdered B y: Dr. Gutierrez on 12-11-2022 Basophils/100 WBC (Bld) 1.0 % 0-1 [facility] Bilirubin [Mass/Vol] 0.30 mg/dL 0.20-1.00 [facility] Comment on above: For patients on eltr ombopag therapy, use of Dimension [place] TBIL is not recommended. Chloride [Moles/Vol] 107 mmol/L 98-107 [facility] Cholesterol [Mass/Vol] 188 mg/dL <200 [facility] Comment on above: <200 mg/dL Desirable 200-240 mg/dL Borderline >240 mg/dL High Risk Eosinophils/100 WBC (Bld) 1.5 % 0-5 [facility] Glucose [Mass/Vol] 101 mg/dL 74-106 [facility] Comment on above: Fasting Glucose resu lt from 100 to 125 mg/dL suggests IMPAIRED HOMEOSTASIS per A.D.A. criteria. Neutrophils (Bld) [#/Vol] 4.5 10*3/uL 2.0-7.7 [facility] Neutrophils/100 WBC (Bld) 63.8 % 47-70 [facility] Potassium [Moles/Vol] 3.8 mmol/L 3.5-5.1 [facility] Protein [Mass/Vol] 7.3 g/dL 6.4-8.2 [facility] Sodium [Moles/Vol] 138 mmol/L 136-145 [facility] Triglyceride [Mass/Vol] 154 mg/dL <199 [facility] Comment on above: The drugs N-Acetylcy steine and Metamizole may falsely depress this assay.Serum Triglycerides Reference Interval Normal <150 mg/dL Borderline high 150 - 199 mg/dL High 200 - 499 mg/dL Very High > or = 500 mg/dL WBC (Bld) [#/Vol] 7.1 10*3/uL 4.4-11.0 [facility] Blood erythrocytes count (nu mber/volume)Ordered By: Dr. Gutierrez on 12-11-2022 RBC (Bld) [#/Vol] 4.11 10*6/uL 4.2-5.4 [facility] Blood hemoglobin measurement (mass/volume)Ordered By: Dr. Gutierrez on 12-11-2022 Hemoglobin (Bld) [Mass/Vol] 14.3 g/dL 12.0-15.0 [facility] Blood lymphocytes/100 leukoc ytesOrdered By: Dr. Gutierrez on 12-11-2022 Lymphocytes/100 WBC (Bld) 23.3 % 19-41 [facility] Blood monocytes/100 leukocyt esOrdered By: Dr. Gutierrez on 12-11-2022 Monocytes/100 WBC (Bld) 10.0 % 0-10 [facility] Blood platelet mean volumeOr dered By: Dr. Gutierrez on 12-11-2022 Platelet mean volume (Bld) [Entitic vol] 10.4 fL 6.2-12.0 [facility] Determination of erythrocyte mean corpuscular volume (MCV)Ordered By: Dr. Gutierrez on 12-11-2022 MCV (RBC) [Entitic vol] 107.1 fL 81-[address] [facility] Hematocrit Auto (Bld) [Volum e fraction]Ordered By: Dr. Gutierrez on 12-11-2022 Hematocrit (Bld) [Volume fraction] 44.0 % 37-47 [facility] Laboratory - Chemistry and C hemistry - challengeOrdered By: Dr. Gutierrez on 12-11-2022 ALP [Catalytic activity/Vol] 135 U/L 45-117 [facility] ALT [Catalytic activity/Vol] 21 U/L 13-56 [facility] CO2 [Moles/Vol] 26.0 mmol/L 21.0-32.0 [facility] Globulin (S) [Mass/Vol] 3.5 g/dL 2.2-4.[address] [facility] Urea nitrogen/Creatinine [Mass ratio] 13.1 mg/mg 10-20 [facility] Laboratory - Hematology and Cell countsOrdered By: Dr. Gutierrez on 12-11-2022 Erythrocyte distribution width (RBC) [Entitic vol] 50.1 fL 35.1-43.9 [facility] Erythrocyte distribution width (RBC) [Ratio] 12.5 % 11.6-14.6 [facility] Immature granulocytes/100 WBC (Bld) 0.400 % 0.0-0.9 [facility] Comment on above: IG% - Immature Granu locytes (promyelocytes, myelocytes and metamyelocytes) > 1% indicates that a LEFT SHIFT is Present. MCH (RBC) [Entitic mass] 34.8 pg 27.0-32.0 [facility] Nucleated RBC/100 WBC (Bld) [Ratio] 0 % 0-5 [facility] MCHC Auto (RBC) [Mass/Vol]Or dered By: Dr. Gutierrez on 12-11-2022 MCHC (RBC) [Mass/Vol] 32.5 g/dL 32-36 [facility] No Panel InformationOrdered By: Dr. Gutierrez on 12-11-2022 Estimated GFR (MDRD) Amer 98 mL/min >60 [facility] Comment on above: GFR Calc Estimated GFR (MDRD) Non-Af Amer 81 mL/min >60 [facility] Comment on above: Non- GFR Calc Thyroid Stimulating Hormone (TSH) 2.80 uIU/mL 0.358-3.74 [facility] Vitamin D 25-Hydroxy 43.1 ng/mL [facility] Comment on above: Vitamin D 25(OH) Sta tus Range Deficiency <20 ng/mL (50nmol/L) Insufficiency 20 - 30 ng/mL (50 - 75 nmol/L) Sufficiency 30 - 100 ng/mL (75 - 250 nmol/L) Toxicity >100 ng/mL (>250 nmol/L) Platelets bldOrdered By: Dr. Gutierrez on 12-11-2022 Platelets (Bld) [#/Vol] 300 10*3/uL 150-450 [facility] Serum or plasma albumin kamlesh urement (mass/volume)Ordered By: Dr. Gutierrez on 12-11-2022 Albumin [Mass/Vol] 3.8 g/dL 3.2-5.0 [facility] Serum or plasma albumin/glob ulin mass ratioOrdered By: Dr. Gutierrez on 12-11-2022 Albumin/Globulin [Mass ratio] 1.1 {ratio} 0.9-2.4 [facility] Serum or plasma calcium kamlesh urement (mass/volume)Ordered By: Dr. Gutierrez on 12-11-2022 Calcium [Mass/Vol] 9.4 mg/dL 8.5-10.1 [facility] Serum or plasma cholesterol in HDL measurement (mass/volume)Ordered By: Dr. Gutierrez on 12-11-2022 Cholesterol in HDL [Mass/Vol] 40 mg/dL >40 [facility] Comment on above: The drugs N-Acetylcy steine and Metamizole may falsely depress this assay. Reference Range HDL <40 mg/dL Low HDL Cholesterol HDL >or= 60 mg/dL High HDL Cholesterol Serum or plasma cholesterol in VLDL measurement (mass/volume)Ordered By: Dr. Gutierrez on 12-11-2022 Cholesterol in VLDL [Mass/Vol] 31 mg/dL 5-40 [facility] Serum or plasma creatinine m easurement (mass/volume)Ordered By: Dr. Gutierrez on 12-11-2022 Creatinine [Mass/Vol] 0.76 mg/dL 0.55-1.02 [facility] Comment on above: The validity of the calculated GFR & GFRAA in patients over 70 years has not been determined. Clinical correlation is essential. Serum or plasma low density lipoprotein (LDL) cholesterol measurement (mass/volume)Ordered By: Dr. Gutierrez on 12-11-2022 Cholesterol in LDL [Mass/Vol] 117 mg/dL 0-130 [facility] Serum or plasma urea nitroge n measurement (mass/volume)Ordered By: Dr. Gutierrez on 12-11-2022 Urea nitrogen [Mass/Vol] 10 mg/dL 7-18 [facility] Thin prep Papanicolaou smear with manual screeningOrdered By: Dr. Gutierrez on 12-11-2022 Thin prep Papanicolaou smear with manual screening 18 U/L 15-37 [facility] Thin prep Papanicolaou smear with manual screening 5 5-15 [facility] Bacteria identified Cx Nom ( Wound)Ordered By: Dr. Gutierrez on 11-29-2022 Wound Culture Streptococcus group A [facility] Gram stain for investigation of transfusion reactionOrdered By: Dr. Gutierrez on 11-28-2022 Microscopic observation Gram stain Nom (Unsp spec) [facility] No Panel InformationOrdered By: Dr. Gutierrez on 11-27-2022 Methicillin-Resist S.aureus DNA PCR Negative Negative [facility] Staphylococcus aureus DNA de tection by probe and target amplification methodOrdered By: Dr. Gutierrez on 11-27-2022 S. aureus DNA RENATE+probe Ql (Unsp spec) Negative Negative [facility] Absolute lymphocyte countOrd ered By: Dr. Ulloa on 09-02-2022 Lymphocytes Auto (Unsp spec) [#/Vol] 1.71 10*3/uL 0.83-4.51 [facility] Basophil percentageOrdered B y: Dr. Ulloa on 09-02-2022 Basophils/100 WBC (Bld) 1.2 % 0-[address] [facility] Eosinophils/100 WBC (Bld) 2.5 % 0-5 [facility] Neutrophils (Bld) [#/Vol] 3.3 10*3/uL 2.0-7.7 [facility] Neutrophils/100 WBC (Bld) 55.4 % 47-70 [facility] WBC (Bld) [#/Vol] 6.0 10*3/uL 4.4-11.0 [facility] Blood erythrocytes count (nu mber/volume)Ordered By: Dr. Ulloa on 09-02-2022 RBC (Bld) [#/Vol] 4.28 10*6/uL 4.2-5.4 [facility] Blood hemoglobin measurement (mass/volume)Ordered By: Dr. Ulloa on 09-02-2022 Hemoglobin (Bld) [Mass/Vol] 14.9 g/dL 12.0-15.0 [facility] Blood lymphocytes/100 leukoc ytesOrdered By: Dr. Ulloa on 09-02-2022 Lymphocytes/100 WBC (Bld) 28.7 % 19-41 [facility] Blood monocytes/100 leukocyt esOrdered By: Dr. Ulloa on 09-02-2022 Monocytes/100 WBC (Bld) 11.9 % 0-[address] [facility] Blood platelet mean volumeOr dered By: Dr. Ulloa on 09-02-2022 Platelet mean volume (Bld) [Entitic vol] 9.4 fL 6.2-12.0 [facility] Determination of erythrocyte mean corpuscular volume (MCV)Ordered By: Dr. Ulloa on 09-02-2022 MCV (RBC) [Entitic vol] 102.8 fL 81-[address] [facility] Hematocrit Auto (Bld) [Volum e fraction]Ordered By: Dr. Ulloa on 09-02-2022 Hematocrit (Bld) [Volume fraction] 44.0 % 37-47 [facility] Iron measurement (mass/mass) Ordered By: Dr. Ulloa on 09-02-2022 Iron (Unsp spec) [Mass/Mass] 45 ug/dL 50-170 [facility] Laboratory - Chemistry and C hemistry - challengeOrdered By: Dr. Ulloa on 09-02-2022 Cobalamin (Vitamin B12) [Mass/Vol] 255 pg/mL 211-911 [facility] Laboratory - Hematology and Cell countsOrdered By: Dr. Ulloa on 09-02-2022 Erythrocyte distribution width (RBC) [Entitic vol] 50.5 fL 35.1-43.9 [facility] Erythrocyte distribution width (RBC) [Ratio] 13.2 % 11.6-14.6 [facility] Immature granulocytes/100 WBC (Bld) 0.300 % 0.0-0.9 [facility] Comment on above: IG% - Immature Granu locytes (promyelocytes, myelocytes and metamyelocytes) > 1% indicates that a LEFT SHIFT is Present. MCH (RBC) [Entitic mass] 34.8 pg 27.0-32.0 [facility] Nucleated RBC/100 WBC (Bld) [Ratio] 0 % 0-5 [facility] MCHC Auto (RBC) [Mass/Vol]Or dered By: Dr. Ulloa on 09-02-2022 MCHC (RBC) [Mass/Vol] 33.9 g/dL 32-36 [facility] No Panel InformationOrdered By: Dr. Ulloa on 09-02-2022 Total Iron Binding Capacity 321 ug/dL 250-450 [facility] Platelets bldOrdered By: Dr. Ulloa on 09-02-2022 Platelets (Bld) [#/Vol] 254 10*3/uL 150-450 [facility] Serum or plasma ferritin ibrahima surement (mass/volume)Ordered By: Dr. Ulloa on 09-02-2022 Ferritin [Mass/Vol] 26 ng/mL 8-252 [facility] Serum or plasma iron saturat ion measurement (mass fraction)Ordered By: Dr. Ulloa on 09-02-2022 Iron saturation [Mass fraction] 14.0 % 15.0-55.0 [facility] Absolute lymphocyte counton 06-11-2022 Lymphocytes Auto (Unsp spec) [#/Vol] 1.27 10*3/uL 0.83-4.51 [facility] Work Phone: Basophil percentageon 2021 Basophils/100 WBC (Bld) 1.3 % 0-[address] [facility] Work Phone: Bilirubin [Mass/Vol] 0.40 mg/dL 0.20-1.00 [facility] Work Phone: Comment on above: For patients on eltr ombopag therapy, use of Dimension [place] TBIL is not recommended. Chloride [Moles/Vol] 109 mmol/L 98-107 [facility] Work Phone: Eosinophils/100 WBC (Bld) 2.3 % 0-5 [facility] Work Phone: Glucose [Mass/Vol] 115 mg/dL 74-106 [facility] Work Phone: Comment on above: Fasting Glucose resu lt from 100 to 125 mg/dL suggests IMPAIRED HOMEOSTASIS per A.D.A. criteria. Neutrophils (Bld) [#/Vol] 2.7 10*3/uL 2.0-7.7 [facility] Work Phone: Neutrophils/100 WBC (Bld) 57.2 % 47-70 [facility] Work Phone: Potassium [Moles/Vol] 3.9 mmol/L 3.5-5.1 [facility] Work Phone: Protein [Mass/Vol] 7.2 g/dL 6.4-8.2 [facility] Work Phone: Sodium [Moles/Vol] 141 mmol/L 136-145 [facility] Work Phone: WBC (Bld) [#/Vol] 4.7 10*3/uL 4.4-11.0 [facility] Work Phone: Blood erythrocytes count (nu mber/volume)on 06-11-2022 RBC (Bld) [#/Vol] 4.32 10*6/uL 4.2-5.4 [facility] Work Phone: Blood hemoglobin measurement (mass/volume)on 06-11-2022 Hemoglobin (Bld) [Mass/Vol] 14.9 g/dL 12.0-15.0 [facility] Work Phone: Blood lymphocytes/100 leukoc yteson 06-11-2022 Lymphocytes/100 WBC (Bld) 26.8 % 19-41 [facility] Work Phone: Blood monocytes/100 leukocyt eson 06-11-2022 Monocytes/100 WBC (Bld) 12.4 % 0-[address] [facility] Work Phone: Blood platelet mean volumeon 06-11-2022 Platelet mean volume (Bld) [Entitic vol] 10.1 fL 6.2-12.0 [facility] Work Phone: Determination of erythrocyte mean corpuscular volume (MCV)on 06-11-2022 MCV (RBC) [Entitic vol] 104.6 fL 81-[address] [facility] Work Phone: Hematocrit Auto (Bld) [Volum e fraction]on 06-11-2022 Hematocrit (Bld) [Volume fraction] 45.2 % 37-47 [facility] Work Phone: Laboratory - Chemistry and C hemistry - challengeon 06-11-2022 ALP [Catalytic activity/Vol] 127 U/L 45-117 [facility] Work Phone: ALT [Catalytic activity/Vol] 23 U/L 13-56 [facility] Work Phone: CO2 [Moles/Vol] 26.0 mmol/L 21.0-32.0 [facility] Work Phone: Globulin (S) [Mass/Vol] 3.6 g/dL 2.2-4.[address] [facility] Work Phone: Urea nitrogen/Creatinine [Mass ratio] 15.0 mg/mg 10-20 [facility] Work Phone: Laboratory - Hematology and Cell countson 06-11-2022 Erythrocyte distribution width (RBC) [Entitic vol] 48.8 fL 35.1-43.9 [facility] Work Phone: Erythrocyte distribution width (RBC) [Ratio] 12.6 % 11.6-14.6 [facility] Work Phone: Immature granulocytes/100 WBC (Bld) 0.000 % 0.0-0.9 [facility] Work Phone: Comment on above: IG% - Immature Granu locytes (promyelocytes, myelocytes and metamyelocytes) > 1% indicates that a LEFT SHIFT is Present. MCH (RBC) [Entitic mass] 34.5 pg 27.0-32.0 [facility] Work Phone: Nucleated RBC/100 WBC (Bld) [Ratio] 0 % 0-5 [facility] Work Phone: MCHC Auto (RBC) [Mass/Vol]on 06-11-2022 MCHC (RBC) [Mass/Vol] 33.0 g/dL 32-36 [facility] Work Phone: No Panel Informationon 06-11 Estimated GFR (MDRD) Amer 102 mL/min >60 [facility] Work Phone: Comment on above: GFR Calc Estimated GFR (MDRD) Non-Af Amer 85 mL/min >60 [facility] Work Phone: Comment on above: Non- GFR Calc Thyroid Stimulating Hormone (TSH) 1.03 uIU/mL 0.358-3.74 [facility] Work Phone: Vitamin D 25-Hydroxy 41.0 ng/mL [facility] Work Phone: Comment on above: Vitamin D 25(OH) Sta tus Range Deficiency <20 ng/mL (50nmol/L) Insufficiency 20 - 30 ng/mL (50 - 75 nmol/L) Sufficiency 30 - 100 ng/mL (75 - 250 nmol/L) Toxicity >100 ng/mL (>250 nmol/L) Platelets bldon 06-11-2022 Platelets (Bld) [#/Vol] 238 10*3/uL 150-450 [facility] Work Phone: Serum or plasma albumin kamlesh urement (mass/volume)on 06-11-2022 Albumin [Mass/Vol] 3.6 g/dL 3.2-5.0 [facility] Work Phone: Serum or plasma albumin/glob ulin mass ratioon 06-11-2022 Albumin/Globulin [Mass ratio] 1.0 {ratio} 0.9-2.4 [facility] Work Phone: Serum or plasma calcium kamlesh urement (mass/volume)on 06-11-2022 Calcium [Mass/Vol] 9.1 mg/dL 8.5-10.1 [facility] Work Phone: Serum or plasma creatinine m easurement (mass/volume)on 06-11-2022 Creatinine [Mass/Vol] 0.74 mg/dL 0.55-1.02 [facility] Work Phone: Comment on above: The validity of the calculated GFR & GFRAA in patients over 70 years has not been determined. Clinical correlation is essential. Serum or plasma urea nitroge n measurement (mass/volume)on 06-11-2022 Urea nitrogen [Mass/Vol] 11 mg/dL 7-18 [facility] Work Phone: Thin prep Papanicolaou smear with manual screeningon 06-11-2022 Thin prep Papanicolaou smear with manual screening 16 U/L 15-37 [facility] Work Phone: Thin prep Papanicolaou smear with manual screening 6 5-15 [facility] Work Phone: Absolute lymphocyte counton 04-23-2022 Lymphocytes Auto (Unsp spec) [#/Vol] 1.28 10*3/uL 0.83-4.51 [facility] Work Phone: Basophil percentageon 2021 Basophils/100 WBC (Bld) 0.9 % 0-[address] [facility] Work Phone: Chloride [Moles/Vol] 108 mmol/L 98-107 [facility] Work Phone: Eosinophils/100 WBC (Bld) 1.9 % 0-5 [facility] Work Phone: Glucose [Mass/Vol] 147 mg/dL 74-106 [facility] Work Phone: Comment on above: Fasting Glucose resu lt greater than or equal to 126 mg/dL suggests DIABETES MELLITUS per A.D.A. criteria. Neutrophils (Bld) [#/Vol] 3.8 10*3/uL 2.0-7.7 [facility] Work Phone: Neutrophils/100 WBC (Bld) 65.5 % 47-70 [facility] Work Phone: Potassium [Moles/Vol] 3.9 mmol/L 3.5-5.1 [facility] Work Phone: Sodium [Moles/Vol] 141 mmol/L 136-145 [facility] Work Phone: WBC (Bld) [#/Vol] 5.8 10*3/uL 4.4-11.0 [facility] Work Phone: Blood erythrocytes count (nu mber/volume)on 04-23-2022 RBC (Bld) [#/Vol] 4.01 10*6/uL 4.2-5.4 [facility] Work Phone: Blood hemoglobin measurement (mass/volume)on 04-23-2022 Hemoglobin (Bld) [Mass/Vol] 13.5 g/dL 12.0-15.0 [facility] Work Phone: Blood lymphocytes/100 leukoc yteson 04-23-2022 Lymphocytes/100 WBC (Bld) 22.0 % 19-41 [facility] Work Phone: Blood monocytes/100 leukocyt eson 04-23-2022 Monocytes/100 WBC (Bld) 9.5 % 0-[address] [facility] Work Phone: Blood platelet mean volumeon 04-23-2022 Platelet mean volume (Bld) [Entitic vol] 10.3 fL 6.2-12.0 [facility] Work Phone: Determination of erythrocyte mean corpuscular volume (MCV)on 04-23-2022 MCV (RBC) [Entitic vol] 104.7 fL 81-[address] [facility] Work Phone: Erythrocyte sedimentation ra mark 04-23-2022 ESR (Bld) [Velocity] 34 mm/h 0-30 [facility] Work Phone: Hematocrit Auto (Bld) [Volum e fraction]on 04-23-2022 Hematocrit (Bld) [Volume fraction] 42.0 % 37-47 [facility] Work Phone: Laboratory - Chemistry and C hemistry - challengeon 04-23-2022 CO2 [Moles/Vol] 29.0 mmol/L 21.0-32.0 [facility] Work Phone: Urea nitrogen/Creatinine [Mass ratio] 14.0 mg/mg 10-20 [facility] Work Phone: Laboratory - Hematology and Cell countson 04-23-2022 Erythrocyte distribution width (RBC) [Entitic vol] 51.4 fL 35.1-43.9 [facility] Work Phone: Erythrocyte distribution width (RBC) [Ratio] 13.2 % 11.6-14.6 [facility] Work Phone: Immature granulocytes/100 WBC (Bld) 0.200 % 0.0-0.9 [facility] Work Phone: Comment on above: IG% - Immature Granu locytes (promyelocytes, myelocytes and metamyelocytes) > 1% indicates that a LEFT SHIFT is Present. MCH (RBC) [Entitic mass] 33.7 pg 27.0-32.0 [facility] Work Phone: Nucleated RBC/100 WBC (Bld) [Ratio] 0 % 0-5 [facility] Work Phone: MCHC Auto (RBC) [Mass/Vol]on 04-23-2022 MCHC (RBC) [Mass/Vol] 32.1 g/dL 32-36 [facility] Work Phone: No Panel Informationon 04-23 Estimated GFR (MDRD) Amer 106 mL/min >60 [facility] Work Phone: Comment on above: GFR Calc Estimated GFR (MDRD) Non-Af Amer 88 mL/min >60 [facility] Work Phone: Comment on above: Non- GFR Calc Platelets bldon 04-23-2022 Platelets (Bld) [#/Vol] 272 10*3/uL 150-450 [facility] Work Phone: Serum or plasma C reactive p rotein measurement (mass/volume)on 04-23-2022 CRP [Mass/Vol] mg/L 0.0-3.0 [facility] Work Phone: Comment on above: C-Reactive Protein ( CRP) provides useful information for thediagnosis, therapy and monitoring of inflammatory processesand associated diseases. For the evaluation of Relative Riskfor Cardiovascular Disease, a High Sensitivity CRP (HSCRP)should be ordered. Serum or plasma calcium kamlesh urement (mass/volume)on 04-23-2022 Calcium [Mass/Vol] 8.9 mg/dL 8.5-10.1 [facility] Work Phone: Serum or plasma creatinine m easurement (mass/volume)on 04-23-2022 Creatinine [Mass/Vol] 0.71 mg/dL 0.55-1.02 [facility] Work Phone: Comment on above: The validity of the calculated GFR & GFRAA in patients over 70 years has not been determined. Clinical correlation is essential. Serum or plasma urea nitroge n measurement (mass/volume)on 04-23-2022 Urea nitrogen [Mass/Vol] 10 mg/dL 7-18 [facility] Work Phone: Thin prep Papanicolaou smear with manual screeningon 04-23-2022 Thin prep Papanicolaou smear with manual screening 4 5-15 [facility] Work Phone: Absolute lymphocyte counton 02-19-2022 Lymphocytes Auto (Unsp spec) [#/Vol] 1.26 10*3/uL 0.83-4.51 [facility] Work Phone: Basophil percentageon 2021 Basophils/100 WBC (Bld) 0.7 % 0-[address] [facility] Work Phone: Eosinophils/100 WBC (Bld) 1.2 % 0-5 [facility] Work Phone: Neutrophils (Bld) [#/Vol] 4.1 10*3/uL 2.0-7.7 [facility] Work Phone: Neutrophils/100 WBC (Bld) 67.7 % 47-70 [facility] Work Phone: WBC (Bld) [#/Vol] 6.1 10*3/uL 4.4-11.0 [facility]: Blood erythrocytes count (nu mber/volume)on 02-19-2022 RBC (Bld) [#/Vol] 4.11 10*6/uL 4.2-5.4 [facility] Work [facility]: Blood hemoglobin measurement (mass/volume)on 02-19-2022 Hemoglobin (Bld) [Mass/Vol] 13.7 g/dL 12.0-15.0 [facility] Work Phone: Blood lymphocytes/100 leukoc yteson 02-19-2022 Lymphocytes/100 WBC (Bld) 20.8 % 19-41 [facility] Work Phone: Blood monocytes/100 leukocyt eson 02-19-2022 Monocytes/100 WBC (Bld) 9.4 % 0-[address] [facility] Work Phone: Blood platelet mean volumeon 02-19-2022 Platelet mean volume (Bld) [Entitic vol] 10.0 fL 6.2-12.0 [facility] Work Phone: Determination of erythrocyte mean corpuscular volume (MCV)on 02-19-2022 MCV (RBC) [Entitic vol] 102.9 fL 81-[address] [facility] Work Phone: Hematocrit Auto (Bld) [Volum e fraction]on 02-19-2022 Hematocrit (Bld) [Volume fraction] 42.3 % 37-47 [facility] Work Phone: Hemoglobin in reticulocytes (mass per reticulocyte)Ordered By: Dr. Ulloa on 02-19-2022 Hemoglobin (Reticulocytes) [Entitic mass] 36.3 pg 30-35 [facility] Iron measurement (mass/mass) on 02-19-2022 Iron (Unsp spec) [Mass/Mass] 31 ug/dL 50-170 [facility] Work Phone: Laboratory - Hematology and Cell countson 02-19-2022 Erythrocyte distribution width (RBC) [Entitic vol] 49.5 fL 35.1-43.9 [facility] Work Phone: Erythrocyte distribution width (RBC) [Ratio] 13.0 % 11.6-14.6 [facility] Work Phone: Immature granulocytes/100 WBC (Bld) 0.200 % 0.0-0.9 [facility] Work Phone: Comment on above: IG% - Immature Granu locytes (promyelocytes, myelocytes and metamyelocytes) > 1% indicates that a LEFT SHIFT is Present. MCH (RBC) [Entitic mass] 33.3 pg 27.0-32.0 [facility] Work Phone: Nucleated RBC/100 WBC (Bld) [Ratio] 0 % 0-5 [facility] Work Phone: MCHC Auto (RBC) [Mass/Vol]on 02-19-2022 MCHC (RBC) [Mass/Vol] 32.4 g/dL 32-36 [facility] Work Phone: No Panel InformationOrdered By: Dr. Ulloa on 02-19-2022 Immature Reticulocyte Fraction 18.80 % 3.00-15.90 [facility] Reticulocyte Count 1.83 % 0.5-1.5 [facility] No Panel Informationon 02-19 Total Iron Binding Capacity 366 ug/dL 250-450 [facility] Work Phone: Platelets bldon 02-19-2022 Platelets (Bld) [#/Vol] 246 10*3/uL 150-450 [facility] Work Phone: Serum or plasma ferritin ibrahima surement (mass/volume)on 02-19-2022 Ferritin [Mass/Vol] 28 ng/mL 8-252 [facility] Work Phone: Serum or plasma iron saturat ion measurement (mass fraction)on 02-19-2022 Iron saturation [Mass fraction] 8.5 % 15.0-55.0 [facility] Work Phone: Absolute lymphocyte counton 12-02-2021 Lymphocytes Auto (Unsp spec) [#/Vol] 1.37 10*3/uL 0.83-4.51 [facility] Work Phone: Basophil percentageon 2021 Basophils/100 WBC (Bld) 1.2 % 0-[address] [facility] Work Phone: Bilirubin [Mass/Vol] 0.20 mg/dL 0.20-1.00 [facility] Work Phone: Comment on above: For patients on eltr ombopag therapy, use of Dimension [place] TBIL is not recommended. Chloride [Moles/Vol] 109 mmol/L 98-107 [facility] Work Phone: Eosinophils/100 WBC (Bld) 2.7 % 0-5 [facility] Work Phone: Glucose [Mass/Vol] 126 mg/dL 74-106 [facility] Work Phone: Comment on above: Fasting Glucose resu lt greater than or equal to 126 mg/dL suggests DIABETES MELLITUS per A.D.A. criteria. Neutrophils (Bld) [#/Vol] 3.6 10*3/uL 2.0-7.7 [facility] Work Phone: Neutrophils/100 WBC (Bld) 61.2 % 47-70 [facility] Work Phone: Potassium [Moles/Vol] 3.9 mmol/L 3.5-5.1 [facility] Work Phone: Protein [Mass/Vol] 6.6 g/dL 6.4-8.2 [facility] Work Phone: Sodium [Moles/Vol] 141 mmol/L 136-145 [facility] Work Phone: WBC (Bld) [#/Vol] 5.9 10*3/uL 4.4-11.0 [facility] Work Phone: Blood erythrocytes count (nu mber/volume)on 12-02-2021 RBC (Bld) [#/Vol] 3.63 10*6/uL 4.2-5.4 [facility] Work Phone: Blood hemoglobin measurement (mass/volume)on 12-02-2021 Hemoglobin (Bld) [Mass/Vol] 12.1 g/dL 12.0-15.0 [facility] Work Phone: Blood lymphocytes/100 leukoc yteson 12-02-2021 Lymphocytes/100 WBC (Bld) 23.1 % 19-41 [facility] Work Phone: Blood monocytes/100 leukocyt eson 12-02-2021 Monocytes/100 WBC (Bld) 11.5 % 0-[address] [facility] Work Phone: Blood platelet mean volumeon 12-02-2021 Platelet mean volume (Bld) [Entitic vol] 10.2 fL 6.2-12.0 [facility] Work Phone: Determination of erythrocyte mean corpuscular volume (MCV)on 12-02-2021 MCV (RBC) [Entitic vol] 106.9 fL 81-[address] [facility] Work Phone: Hematocrit Auto (Bld) [Volum e fraction]on 12-02-2021 Hematocrit (Bld) [Volume fraction] 38.8 % 37-47 [facility] Work Phone: Laboratory - Chemistry and C hemistry - challengeon 12-02-2021 ALP [Catalytic activity/Vol] 112 U/L 45-117 [facility] Work Phone: ALT [Catalytic activity/Vol] 24 U/L 13-56 [facility] Work Phone: CO2 [Moles/Vol] 28.0 mmol/L 21.0-32.0 [facility] Work Phone: Globulin (S) [Mass/Vol] 3.2 g/dL 2.2-4.[address] [facility] Work Phone: Urea nitrogen/Creatinine [Mass ratio] 18.8 mg/mg 10-20 [facility] Work Phone: Laboratory - Hematology and Cell countson 12-02-2021 Erythrocyte distribution width (RBC) [Entitic vol] 50.8 fL 35.1-43.9 [facility] Work Phone: Erythrocyte distribution width (RBC) [Ratio] 12.8 % 11.6-14.6 [facility] Work Phone: Immature granulocytes/100 WBC (Bld) 0.300 % 0.0-0.9 [facility] Work Phone: Comment on above: IG% - Immature Granu locytes (promyelocytes, myelocytes and metamyelocytes) > 1% indicates that a LEFT SHIFT is Present. MCH (RBC) [Entitic mass] 33.3 pg 27.0-32.0 [facility] Work Phone: Nucleated RBC/100 WBC (Bld) [Ratio] 0 % 0-5 [facility] Work Phone: MCHC Auto (RBC) [Mass/Vol]on 12-02-2021 MCHC (RBC) [Mass/Vol] 31.2 g/dL 32-36 [facility] Work Phone: No Panel Informationon 12-02 Estimated GFR (MDRD) Amer 110 mL/min >60 [facility] Work Phone: Comment on above: GFR Calc Estimated GFR (MDRD) Non-Af Amer 91 mL/min >60 [facility] Work Phone: Comment on above: Non- GFR Calc Thyroid Stimulating Hormone (TSH) 3.07 uIU/mL 0.358-3.74 [facility] Work Phone: Platelets bldon 12-02-2021 Platelets (Bld) [#/Vol] 323 10*3/uL 150-450 [facility] Work Phone: Serum or plasma albumin kamlesh urement (mass/volume)on 12-02-2021 Albumin [Mass/Vol] 3.4 g/dL 3.2-5.0 [facility] Work Phone: Serum or plasma albumin/glob ulin mass ratioon 12-02-2021 Albumin/Globulin [Mass ratio] 1.1 {ratio} 0.9-2.4 [facility] Work Phone: Serum or plasma calcium kamlesh urement (mass/volume)on 12-02-2021 Calcium [Mass/Vol] 8.3 mg/dL 8.5-10.1 [facility] Work Phone: Serum or plasma creatinine m easurement (mass/volume)on 12-02-2021 Creatinine [Mass/Vol] 0.69 mg/dL 0.55-1.02 [facility] Work Phone: Comment on above: The validity of the calculated GFR & GFRAA in patients over 70 years has not been determined. Clinical correlation is essential. Serum or plasma urea nitroge n measurement (mass/volume)on 12-02-2021 Urea nitrogen [Mass/Vol] 13 mg/dL 7-18 [facility] Work Phone: Thin prep Papanicolaou smear with manual screeningon 12-02-2021 Thin prep Papanicolaou smear with manual screening 13 U/L 15-37 [facility] Work Phone: Thin prep Papanicolaou smear with manual screening 4 5-15 [facility] Work Phone: Absolute lymphocyte counton 11-06-2021 Lymphocytes Auto (Unsp spec) [#/Vol] 1.05 10*3/uL 0.83-4.51 [facility] Work Phone: Basophil percentageon 2021 Basophils/100 WBC (Bld) 0.8 % 0-[address] [facility] Work Phone: Eosinophils/100 WBC (Bld) 1.7 % 0-5 [facility] Work Phone: Neutrophils (Bld) [#/Vol] 3.6 10*3/uL 2.0-7.7 [facility] Work Phone: Neutrophils/100 WBC (Bld) 68.7 % 47-70 [facility] Work Phone: WBC (Bld) [#/Vol] 5.2 10*3/uL 4.4-11.0 [facility] Work [facility]: Blood erythrocytes count (nu mber/volume)on 11-06-2021 RBC (Bld) [#/Vol] 3.36 10*6/uL 4.2-5.4 [facility] Work Phone: Blood hemoglobin measurement (mass/volume)on 11-06-2021 Hemoglobin (Bld) [Mass/Vol] 11.6 g/dL 12.0-15.0 [facility] Work Phone: Blood lymphocytes/100 leukoc yteson 11-06-2021 Lymphocytes/100 WBC (Bld) 20.0 % 19-41 [facility] Work Phone: Blood monocytes/100 leukocyt eson 11-06-2021 Monocytes/100 WBC (Bld) 8.4 % 0-[address] [facility] Work Phone: Blood platelet mean volumeon 11-06-2021 Platelet mean volume (Bld) [Entitic vol] 9.8 fL 6.2-12.0 [facility] Work Phone: Determination of erythrocyte mean corpuscular volume (MCV)on 11-06-2021 MCV (RBC) [Entitic vol] 109.5 fL 81-[address] [facility] Work Phone: Hematocrit Auto (Bld) [Volum e fraction]on 11-06-2021 Hematocrit (Bld) [Volume fraction] 36.8 % 37-47 [facility] Work Phone: Iron measurement (mass/mass) on 11-06-2021 Iron (Unsp spec) [Mass/Mass] 64 ug/dL 50-170 [facility] Work Phone: Laboratory - Hematology and Cell countson 11-06-2021 Erythrocyte distribution width (RBC) [Entitic vol] 57.4 fL 35.1-43.9 [facility] Work Phone: Erythrocyte distribution width (RBC) [Ratio] 14.2 % 11.6-14.6 [facility] Work Phone: Immature granulocytes/100 WBC (Bld) 0.400 % 0.0-0.9 [facility] Work Phone: Comment on above: IG% - Immature Granu locytes (promyelocytes, myelocytes and metamyelocytes) > 1% indicates that a LEFT SHIFT is Present. MCH (RBC) [Entitic mass] 34.5 pg 27.0-32.0 [facility] Work Phone: Nucleated RBC/100 WBC (Bld) [Ratio] 0 % 0-5 [facility] Work Phone: MCHC Auto (RBC) [Mass/Vol]on 11-06-2021 MCHC (RBC) [Mass/Vol] 31.5 g/dL 32-36 [facility] Work Phone: No Panel Informationon 11-06 Total Iron Binding Capacity 343 ug/dL 250-450 [facility] Work Phone: Platelets bldon 11-06-2021 Platelets (Bld) [#/Vol] 268 10*3/uL 150-450 [facility] Work Phone: Serum or plasma ferritin ibrahima surement (mass/volume)on 11-06-2021 Ferritin [Mass/Vol] 38 ng/mL 8-252 [facility] Work Phone: Serum or plasma iron saturat ion measurement (mass fraction)on 11-06-2021 Iron saturation [Mass fraction] 18.7 % 15.0-55.0 [facility] Work Phone: Basophil percentageon 2021 Bilirubin [Mass/Vol] 0.20 mg/dL 0.20-1.00 [facility] Comment on above: For patients on eltr ombopag therapy, use of Dimension [place] TBIL is not recommended. Chloride [Moles/Vol] 112 mmol/L High 98-107 [facility] Glucose [Mass/Vol] 101 mg/dL 74-106 [facility] Comment on above: Fasting Glucose resu lt from 100 to 125 mg/dL suggests IMPAIRED HOMEOSTASIS per A.D.A. criteria. Potassium [Moles/Vol] 4.0 mmol/L 3.5-5.1 [facility] Protein [Mass/Vol] 6.7 g/dL 6.4-8.2 [facility] Sodium [Moles/Vol] 142 mmol/L 136-145 [facility] [employer] mix RAST testo n 09-17-2021 Anion gap [Moles/Vol] 3 mmol/L Low 5-15 [facility] AST [Catalytic activity/Vol] 8 U/L Low 15-37 [facility] Laboratory - Chemistry and C hemistry - challengeon 09-17-2021 ALP [Catalytic activity/Vol] 97 U/L 45-117 [facility] ALT [Catalytic activity/Vol] 17 U/L 13-56 [facility] CO2 [Moles/Vol] 27.0 mmol/L 21.0-32.0 [facility] Globulin (S) [Mass/Vol] 3.4 g/dL 2.2-4.2 [facility] Urea nitrogen/Creatinine [Mass ratio] 20.1 mg/mg High 10-20 [facility] No Panel Informationon 09-17 Estimated Creatinine Clearance Calc 89.84 ml/min [facility] Estimated GFR (MDRD) Amer 130 mL/min >60 [facility] Comment on above: GFR Calc Estimated GFR (MDRD) Non-Af Amer 108 mL/min >60 [facility] Comment on above: Non- GFR Calc Thyroid Stimulating Hormone (TSH) 2.37 uIU/mL 0.358-3.74 [facility] Serum or plasma albumin kamlesh urement (mass/volume)on 09-17-2021 Albumin [Mass/Vol] 3.3 g/dL 3.2-5.0 [facility] Serum or plasma albumin/glob ulin mass ratioon 09-17-2021 Albumin/Globulin [Mass ratio] 1.0 {ratio} 0.9-2.4 [facility] Serum or plasma calcium kamlesh urement (mass/volume)on 09-17-2021 Calcium [Mass/Vol] 8.5 mg/dL 8.5-10.1 [facility] Serum or plasma creatinine m easurement (mass/volume)on 09-17-2021 Creatinine [Mass/Vol] 0.60 mg/dL 0.55-1.02 [facility] Comment on above: The validity of the calculated GFR & GFRAA in patients over 70 years has not been determined. Clinical correlation is essential. Serum or plasma urea nitroge n measurement (mass/volume)on 09-17-2021 Urea nitrogen [Mass/Vol] 12 mg/dL 7-18 [facility] Thin prep Papanicolaou smear with manual screeningon 09-17-2021 Thin prep Papanicolaou smear with manual screening 8 U/L 15-37 [facility] Thin prep Papanicolaou smear with manual screening 3 5-15 [facility] CNPNon 08-22-2021 CNPN Telephone (AKPRAD) ANGELES LARIOS ([id number]) 1960 F Date Time Provider Department 08/22/21 [...] type of procedure is only done at [facility]. Please ask her to call and make an appointment with either Dr. Ge Anderson or Dr. Rogelio Wu at [facility]. Phone number is [phone]. Debbie Vallecillo 08/22/2021 9:23 AM Signed Called the patient and relayed the message the patient acknowledged that she understood. A [employer] message was also sent to the patient. [...] asymptomatic, bilateral [I65.*09/06/2012 Embolus of femoral artery ([facility]) [I74.3] 06/25/2017 Coronary artery disease involving ramona samano*06/27/2017 Essential hypertension [I10] 06/27/2017 Mixed hyperlipidemia [E78.2] 06/27/2017 Episode of recurrent major depressive disorder *05/10/2018 Acquired hypothyroidism [E03.9] 05/10/2018 GERD (gastroesophageal reflux disease) [K21.9] 05/10/2018 PVD (peripheral vascular disease) ([facility]) [I73.9] 05/10/2018 PATRICA (obstructive sleep apnea) [...] by DEBBIE VALLECILLO on 08/22/21 [facility] ANES POSTPROC EVALon 021 ANES POSTPROC EVAL HNO ID: [id number] Author: Manuel Solis MD Service: Anesthesiology Author Type: Physician Type: Anesthesia Postprocedure Evaluation Filed: 07/19/2021 12:21 PM Note Text: POST ANESTHESIA EVALUATION NOTE : 1960 Procedure Summary Date: 07/19/21 Room / Location: [facility] / [facility] Anesthesia Start: 938 Anesthesia Stop: 1038 Procedures: [...] July 19, 2021 TIME: 12:21 PM CSN: [id number] [facility] ANES PRE-OPon 07-19-2021 ANES PRE-OP HNO ID: [id number] Author: Manuel Solis MD Service: Anesthesiology Author [...] asymptomatic, bilateral (+) Coronary artery disease involving ramona coronary artery of ramona heart without angina pectoris (+) Embolism and [...] July 19, 2021 TIME: 8:13 AM CSN: [id number] [facility] HISTORY PHYSICALon HISTORY PHYSICAL HNO ID: [id number] Author: Nohelia Tee APRN.JENNIFER Service: Anesthesiology Author [...] On levothyroxine - Coronary artery disease involving ramona coronary artery of ramona heart without angina pectoris 06/27/2017 ASA, plavix - CVA (cerebral vascular accident) ([facility]) 06/2012 - Embolus of femoral artery ([facility]) 06/25/2017 on right - Episode of recurrent major depressive disorder ([facility]) 05/10/2018 Duloxetine,wellbutrin , varenicline - Essential [...] apnea) 05/10/2018 - PVD (peripheral vascular disease) ([facility]) 05/10/2018 - Snoring PAST SURGICAL HISTORY Procedure Laterality Date - APPENDECTOMY 1998 - COLONOSCOP W/ OR W/O BRSH SPEC 03/10/2021 - EGD W/O OR W/BRUSH/WASH 03/10/2021 - INSERT CATH,ART,PERCUT,SHORT TERM 10/13/2012 RIGHT - PAST SURGICAL HISTORY OF 2008 cardiac stents x 3 placed - PAST SURGICAL HISTORY OF 06/25/2017 Rt [employer]NAGER embolectomy - THROMBOENDARTECTMY NECK,NECK INCIS 10/13/2012 LEFT [...] CVA no (more content not included)... [facility] NURSING PROGon 07-19-2021 NURSING PROG HNO ID: [id number] Author: Maia Alves RN Service: Nursing Author [...] SB Capsule Endoscope (Olympus/Given) without difficulty. Lot#: [id number] Date of expiration: 09-11-2022 POST-PROCEDURE Post-capsule instructions reviewed and written information was provided to patient. 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 DIET: Do not eat or drink [...] cell phones, computers, remote TV appliances, microwaves, [employer] players and digital cameras. Because the equipment [...] by your nurse for equipment removal. [facility] OPERATIVE NOon 07-19-2021 OPERATIVE NO HNO ID: [id number] Author: Leonard Urena MD Service: Gastroenterology Author Type: Physician Type: Operative Report Filed: 07/19/2021 10:43 AM Note Text: OPERATIVE/PROCEDURE REPORT LOG ID: [id number] Surgery/Procedure Date: 07/19/2021 Incision/Procedure Start Time: 9:45 AM Incision Close/Procedure End Time: 10:28 AM Surgeon(s)/Procedural ist(s) and Asset Manager(s): Surgeon(s) and Role: * Leonard Urena MD [...] endoscopy. She would likely need referral to [facility] for consideration of antegrade double-balloon enteroscopy for further treatment of her AVMs. I/primary surgeon/proceduralist performed the entire procedure. Leonard Urena MD MPH [facility] SIGNATURE: Leonard Urena MD MPH [facility] PATIENT NAME: Angeles Larios DATE: July 19, 2021 TIME: 10:37 AM PAGER/CONTACT #: [phone] [facility] CNOVon 07-15-2021 CNOV Office Visit (VASSMN ) RICANGELES Carson ([id number]) 1960 F Date Time Provider Department 07/15/21 8:45 AM HANK BROWN During your visit today, we recorded the following information about you: Pulse Blood pressure 57/minute 95/54 Hank Brown MD 07/15/2021 9:06 AM Signed DATE: 02/18/2019.SURGEON: Hank Brown M.D. SURGER: Left carotid endarterectomy with bovine pericardial patch angioplasty and completion intraoperative duplex. ? DATE OF SURGERY: 06/25/2017 SURGEON: Celine Correa MD Acute Darke IIb right lower extremity ischemia. PROCEDURE: Right common femoral embolectomy. Here for f/u of carotid ASO and?Recurrent left internal carotid 90% stenosis. We did a redo left cea after insurance denied a stent in January 2019. She has also had a femoral embolectomy in the past. She remains on anticoagulation due to her prior embolic events. [facility] [place] DEPARTMENT OF VASCULAR SURGERY OUTPATIENT VISIT DATE [...] artery disease) - Coronary artery disease involving ramona coronary artery of ramona heart without angina pectoris 06/27/2017 ASA, plavix - CVA (cerebral vascular accident) ([facility]) 06/2012 - Embolus of femoral artery ([facility]) 06/25/2017 on right - Episode of recurrent major depressive disorder ([facility]) 05/10/2018 Duloxetine,wellbutrin , varenicline - Essential [...] apnea) 05/10/2018 - PVD (peripheral vascular disease) ([facility]) 05/10/2018 - Snoring PAST SURGICAL HISTORY Procedure Laterality Date - APPENDECTOMY 1998 - COLONOSCOP W/ OR W/O BRSH SPEC 03/10/2021 - EGD W/O OR W/BRUSH/WASH 03/10/2021 - INSERT CATH,ART,PERCUT,SHORT TERM 10/13/2012 RIGHT - PAST SURGICAL HISTORY OF 2008 cardiac stents x 3 placed - PAST SURGICAL HISTORY OF 06/25/2017 Rt [employer]PA[employer]NAGER embolectomy - THROMBOENDARTECTMY NECK,NECK INCIS 10/13/2012 LEFT [...] cm. I (more content not included)... Normal [facility] Blood manual differential co mment interpretation (narrative result)on 07-10-2021 Manual differential comment Rey (Bld) [Interp] SCANNED [facility] Blood polychromasia detectio n by light microscopyon 07-10-2021 Polychromasia LM Ql (Bld) 1+ [facility] Laboratory - Hematology and Cell countson 07-10-2021 Anisocytosis Ql (Bld) 2+ [facility] Macrocytes detectionon 07-10 Macrocytes Ql (Bld) 1+ [facility] Thin prep Papanicolaou smear with manual screeningon 07-10-2021 Thin prep Papanicolaou smear with manual screening 1+ [facility] CNPNon 07-01-2021 CNPN Telephone (AGGASTACC ) ANGELES LARIOS ([id number]) 1960 F Date Time Provider Department 07/01/21 LEONARD URENA AGGASTACC During your visit today, we recorded the following information about you: Debbie Vallecillo 07/01/2021 11:42 AM Signed Surgery Checklist Type: EGD W/PUSH ENTERSCOPY Admission Type: outpatient Anesthesia: MAC Date: 07/19/21 Arrival Time: 08:15 am Surgery Time: 09:45 am Location: [facility] Prep mailed to patient. Debbie Vallecillo Allergies [...] (HCC) [I74.3] 06/25/2017 Coronary artery disease involving ramona samano*06/27/2017 Essential hypertension [I10] 06/27/2017 Mixed hyperlipidemia [E78.2] 06/27/2017 Episode of recurrent major depressive disorder *05/10/2018 Acquired hypothyroidism [E03.9] 05/10/2018 GERD (gastroesophageal reflux disease) [K21.9] 05/10/2018 PVD (peripheral vascular disease) ([facility]) [I73.9] 05/10/2018 PATRICA (obstructive sleep apnea) [G47.33] 05/10/2018 Fibromyalgia [M79.7] 05/10/2018 Irritable bowel syndrome with both constipation*05/10/20 18 Diabetes mellitus ([facility]) [E11.9] 05/10/2018 Iron deficiency anemia [D50.9] 05/10/2018 HTN (hypertension) [I10] CVA (cerebral vascular accident) ([facility]) [I63.9] CAD (coronary artery disease) [I25.10] Obesity, Class III, BMI >= 40 [E66.01] 01/24/2019 Carotid stenosis [I65.29] 02/18/2019 Nicotine use disorder, F17.2 [F17.200] 02/20/2019 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 Murmur [R01.1] Encounter Status:Closed by DEBIBE VALLECILLO on 07/01/21 [facility] CNPN Telephone (AGGASTACC ) ANGELES LARIOS ([id number]) 1960 F Date Time Provider Department 07/01/21 [...] bleeding sites. Please arrange push enteroscopy at [facility]. Diagnosis, iron deficiency anemia Debbie Vallecillo [...] (HCC) [I74.3] 06/25/2017 Coronary artery disease involving ramona samano*06/27/2017 Essential hypertension [I10] 06/27/2017 Mixed hyperlipidemia [E78.2] 06/27/2017 Episode of recurrent major depressive disorder *05/10/2018 Acquired hypothyroidism [E03.9] 05/10/2018 GERD (gastroesophageal reflux disease) [K21.9] 05/10/2018 PVD (peripheral vascular disease) ([facility]) [I73.9] 05/10/2018 PATRICA (obstructive sleep apnea) [...] Status:Closed by DEBBIE VALLECILLO on 07/01/21 [facility] CBC and Differentialon 06-24 Abs Baso 0.07 k/uL Normal <0.11 [facility] Comment on above: Performed By: #### ESTRELLA HERNANDEZ FERR #### [facility] [place] [address] [place], [place] [address] Abs [place] 0.57 k/uL Normal <0.87 [facility] Comment on above: Performed By: #### ESTRELLA HERNANDEZ FERR #### [facility] [place] [address] [place] [address] Abs Neut 4.07 k/uL Normal 1.45-7.50 [facility] Comment on above: Performed By: #### Rosemary SMITH CBCDIF, FERR #### [place] [address] Absolute nRBC <0.01 Normal <0.01 [facility] Comment on above: Performed By: #### Rosemary SMITH, CBCDIF, FERR #### [place] [address] Basophils/100 WBC (Bld) 1.1 % Normal [facility] Comment on above: Performed By: #### Rosemary SMITH, CBCDIF, FERR #### [place] [address] DTYPE Auto Diff Normal [facility] Comment on above: Performed By: #### Rosemary SMITH CBCDIF, FERR #### [place] [address] Eosinophils (Bld) [#/Vol] 0.12 10*3/uL Normal <0.46 [facility] Comment on above: Performed By: #### Rosemary SIMTH, CBCDIF, FERR #### [place] [address] Eosinophils/100 WBC (Bld) 1.9 % Normal [facility] Comment on above: Performed By: #### Rosemary SMITH, CBCDIF, FERR #### [place] [address] Erythrocyte distribution width (RBC) [Ratio] 17.7 % High 11.5-15.0 [facility] Comment on above: Performed By: #### Rosemary SMITH, CBCDIF, FERR #### [place] [address] Hematocrit (Bld) [Volume fraction] 33.3 % Low 36.0-46.0 [facility] Comment on above: Performed By: #### Rosemary SMITH, CBCDIF, FERR #### [place] [address] [place] [address] Hemoglobin (Bld) [Mass/Vol] 9.2 g/dL Low 11.5-15.5 [facility] Comment on above: Performed By: #### Rosemary SMITH, CBCDIF, FERR #### [place] [address] Lymphocytes (Bld) [#/Vol] 1.41 10*3/uL Normal 1.00-4.00 [facility] Comment on above: Performed By: #### Rosemary SMITH, CBCDIF, FERR #### [place] [address] Lymphocytes/100 WBC (Bld) 22.6 % Normal [facility] Comment on above: Performed By: #### Rosemary SMITH, CBCDIF, FERR #### [place] [address] MCH 28.9 pG Normal 26.0-34.0 [facility] Comment on above: Performed By: #### Rosemary SMITH, CBCDIF, FERR #### [place] [id number] MCHC (RBC) [Mass/Vol] 27.6 g/dL Low 30.5-36.0 [facility] Comment on above: Performed By: #### Rosemary SMITH, CBCDIF, FERR #### [place] [address] [place] [address] MCV (RBC) [Entitic vol] 104.7 fL High 80.0-100.0 [facility] Comment on above: Performed By: #### Rosemary SMITH, CBCDIF, FERR #### [place] [address] Monocytes/100 WBC (Bld) 9.1 % Normal [facility] Comment on above: Performed By: #### Rosemary SMITH, CBCDIF, FERR #### [place] [address] [place] [address] Neutrophils/100 WBC (Bld) 65.3 % Normal [facility] Comment on above: Performed By: #### Rosemary SMITH, CBCDIF, FERR #### [place] [address] NRBCs 0.0 /100 WBC Normal 0 [facility] Comment on above: Performed By: #### Rosemary SMITH CBCDIF, FERR #### [place] [address] Platelet mean volume (Bld) [Entitic vol] 11.3 fL Normal 9.0-12.7 [facility] Comment on above: Performed By: #### Rosemary SMITH CBCDIF, FERR #### [place] [address] Platelets (Bld) [#/Vol] 296 10*3/uL Normal 150-400 [facility] Comment on above: Performed By: #### Rosemary SMITH, CBCDIF, FERR #### [place] [address] RBC (Bld) [#/Vol] 3.18 10*6/uL Low 3.90-5.20 [facility] Comment on above: Performed By: #### Rosemary SMITH, CBCDIF, FERR #### [place] [address] WBC (Bld) [#/Vol] 6.24 10*3/uL Normal 3.70-11.00 [facility] Comment on above: Performed By: #### Rosemary SMITH, CBCDIF, FERR #### [place] [address] Ferritinon 06-24-2021 Ferritin [Mass/Vol] 91.7 ng/mL Normal 14.7-205.1 [facility] Comment on above: Performed By: #### I GIOVANNI, CBCDIF, FERR #### [facility] [address] [place], [place] [address] Iron and TIBCon 06-24-2021 Iron [Mass/Vol] 30 ug/dL Low 41-186 [facility] Comment on above: Performed By: #### I GIOVANNI, CBCDIF, FERR #### [facility] [address] [place] [address] TIBC 406 ug/dL High 232-386 [facility] Comment on above: Performed By: #### I GIOVANNI, CBCDIF, FERR #### [facility] [address] [place] [id number] Transferrin Saturatn 7 % Low 15-57 [facility] Comment on above: Performed By: #### I GIOVANNI, CBCDIF, FERR #### [facility] [place] [address] [place] [id number] CNPMarcie 06-12-2021 MADELYN Telephone (WINNIE) ANGELES LARIOS ([id number]) 1960 F Date Time Provider Department 06/12/21 HANK BROWN During your visit today, we recorded the following information about you: Tete Couch Sec 06/12/2021 12:40 PM Signed Ms. Larios needs to reschedule her 06/17/[address] Brown at least 10 days out. Catherine Couch [address] Emergency Services Dispatcher Leonie Reagan [facility] 06/14/2021 10:39 AM Signed Angeles Larios appointments [...] (HCC) [I74.3] 06/25/2017 Coronary artery disease involving ramona samano*06/27/2017 Essential hypertension [I10] 06/27/2017 Mixed hyperlipidemia [E78.2] 06/27/2017 Episode of recurrent major depressive disorder *05/10/2018 Acquired hypothyroidism [E03.9] 05/10/2018 GERD (gastroesophageal reflux disease) [K21.9] 05/10/2018 PVD (peripheral vascular disease) ([facility]) [I73.9] 05/10/2018 PATRICA (obstructive sleep apnea) [...] Status:Closed by TETE WASHINGTON on 06/12/21 Normal [facility] Laboratory - Chemistry and C hemistry - challengeon 05-07-2021 Cobalamin (Vitamin B12) [Mass/Vol] 238 pg/mL 211-911 [facility] Work Phone: Serum or plasma folate measu rement (mass/volume)on 05-07-2021 Folate [Mass/Vol] 13.90 ng/mL 3.1-55.4 [facility] ANES POSTPROC EVALon 021 ANES POSTPROC EVAL HNO ID: [id number] Author: Eliu Bernal MD Service: ? Author Type: Physician Type: Anesthesia Postprocedure Evaluation Filed: 05/07/2021 1:41 PM Note Text: POST ANESTHESIA EVALUATION NOTE : 1960 Procedure Summary Date: 05/06/21 Room / Location: [facility] / [facility] Anesthesia Start: 1626 Anesthesia Stop: 1700 [...] May 07, 2021 TIME: 1:40 PM CSN: [id number] [facility] ANES PRE-OPon 05-06-2021 ANES PRE-OP HNO ID: [id number] Author: Eliu Bernal MD Service: ? Author [...] asymptomatic, bilateral (+) Coronary artery disease involving ramona coronary artery of ramona heart without angina pectoris (+) Embolism and [...] by mouth (more content not included)... Normal [facility] HISTORY PHYSICALon HISTORY PHYSICAL HNO ID: [id number] Author: Lisseth Uribe APRN.SAMPLER PICKUP Service: Anesthesiology Author Type: Nurse Practitioner Type: HANDP Filed: 05/06/2021 3:32 PM Note Text: HISTORY AND PHYSICAL EXAMINATION SERVICE DATE: 05/06/2021 SERVICE TIME: 12:29 PM Angeles Larios [id number] PRIMARY CARE PHYSICIAN: Martin Gutierrez MD SURGEON: [...] GERD. She states she was hospitalized in [place] in 02/2021 for fatigue and lethargy. States [...] artery disease) - Coronary artery disease involving ramona coronary artery of ramona heart without angina pectoris 06/27/2017 ASA, plavix - CVA (cerebral vascular accident) ([facility]) 06/2012 - Embolus of femoral artery ([facility]) 06/25/2017 on right - Episode of recurrent major depressive disorder ([facility]) 05/10/2018 Duloxetine,wellbutrin , varenicline - Essential [...] apnea) 05/10/2018 - PVD (peripheral vascular disease) ([facility]) 05/10/2018 - Snoring PAST SURGICAL HISTORY Procedure Laterality Date - APPENDECTOMY 1998 - COLONOSCOP W/ OR W/O BRSH SPEC 03/10/2021 - EGD W/O OR W/BRUSH/WASH 03/10/2021 - INSERT CATH,ART,PERCUT,SHORT TERM 10/13/2012 RIGHT - PAST SURGICAL HISTORY OF 2008 cardiac stents x 3 placed - PAST SURGICAL HISTORY OF 06/25/2017 Rt CAR INSPECTION AND REPAIR MANAGER embolectomy - THROMBOENDARTECTMY NECK,NECK INCIS 10/13/2012 LEFT [...] unexpected verenice (more content not included)... Normal [facility] NURSING PROGon 05-06-2021 NURSING PROG HNO ID: [id number] Author: Elvira Rojo RN Service: Nursing Author [...] may call the [facility] at [phone]. After business hours, please contact: Dr. Urena. RETURN/REMOVAL OF EQUIPMENT: Return to the procedure area as directed by your nurse for equipment removal. Nursing Progress Note Patient Name: Angeles Larios Patient [facility] Daily Note: This note was completed by: Elvira sAh [facility] NURSING PROG HNO ID: [id number] Author: Elvira Rojo RN Service: Nursing Author [...] SB Capsule Endoscope (Olympus/Given) without difficulty. Lot#: [id number] Date of expiration: 08/31/2022 POST-PROCEDURE Post-capsule instructions reviewed and written information was provided to patient. Patient will return equipment to [facility]. SIGNATURE: Elvira Rojo RN PATIENT NAME: Angeles Larios DATE: May 06, 2021 TIME: 6:08 PM CONTACT #: [phone] Nursing Progress Note Patient Name: Angeles Larios Patient Location: [place] Daily Note: This note was completed by: Elvira Rojo [facility] OPERATIVE NOon 05-06-2021 OPERATIVE NO HNO ID: [id number] Author: Leonard Urena MD Service: Gastroenterology Author Type: Physician Type: Operative Report Filed: 05/06/2021 5:16 PM Note Text: OPERATIVE/PROCEDURE REPORT LOG ID: [id number] Surgery/Procedure Date: 05/06/2021 Incision/Procedure Start Time: 4:34 PM Incision Close/Procedure End Time: 4:54 PM Surgeon(s)/Procedural ist(s) and Asset Manager(s): Surgeon(s) and Role: * Leonard Urena MD [...] 06, 2021 TIME: 5:12 PM PAGER/CONTACT #: [phone] Normal [facility] SURGICAL PATHOLOGYon 021 CASE REPORT Normal [facility] Comment on above: Order Comment: Speci men Type: TISSUE SPECIMEN Result Comment: Surg ica Pathology Report Case: [id number] Authorizing Provider: Leonard Urena MD Collected: 05/06/2021 04:45 PM Ordering Location: [facility] Received: 05/07/2021 08:49 AM Pathologist: Stephen Masters MD Specimens: A) - GASTRIC BIOPSY B) - DUODENUM BIOPSY C) - COLON BIOPSY, random Performed By: #### S #### [facility] CLIA [id number] [address] [place] [address] CLINICAL HISTORY Iron deficiency anemia Normal [facility] Comment on above: Order Comment: Speci men Type: TISSUE SPECIMEN Performed By: #### S #### [facility] CLIA [id number] [address] DIAGNOSIS COMMENT Sections of the duodenum revealed benign duodenal mucosa with mildly increased acute and chronic inflammatory cells predominantly within the lamina propria. Histologic features to suggest celiac disease are not present. Normal [facility] Comment on above: Order Comment: Speci men Type: TISSUE SPECIMEN Performed By: #### S #### [facility] CLIA [id number] [address] [place] [address] FINAL DIAGNOSIS Normal [facility] Comment on above: Order Comment: Speci men Type: TISSUE SPECIMEN Result Comment: A. S tomach, biopsy No pathologic abnormalities. B. Duodenum, biopsy Mild active duodenitis. See comment. C. Colon, random biopsies No pathologic abnormalities. Performed By: #### S #### [facility] CLIA [id number] [address] [place] FIN[facility] PERFORMING LAB Normal [facility] Comment on above: Order Comment: Speci men Type: TISSUE SPECIMEN Result Comment: Diag nostic interpretation performed at [facility], [address] [place] [address] CLIA# [id number] Care Aid: Stephen Masters M.D. Performed By: #### S #### [facility] CLIA [id number] [address] GROSS DESCRIPTION Normal [facility] Comment on above: Order Comment: Speci [...] in cassette C1. Gross examination performed at [facility], [address] [place] [address] OLS May 07, 2021 12:31 PM Performed By: #### S #### [facility] CLIA [id number] [address] CBC W Auto Differential pane l (Bld)on 04-16-2021 Basophils (Bld) [#/Vol] 0.07 10*3/uL Normal <0.11 [facility] Comment on above: Order Comment: Speci men Type: BLOOD SPECIMEN Performed By: #### 5 7021-8 ####[facility] [id number] [address] Basophils/100 WBC (Bld) 1.1 % Normal [facility] Comment on above: Order Comment: Speci men Type: BLOOD SPECIMEN Performed By: #### 5 7021-8 ####[facility] [id number] [address] Differential cell count method Nom (Bld) Auto Normal [facility] Comment on above: Order Comment: Speci men Type: BLOOD SPECIMEN Performed By: #### 5 7021-8 ####[facility] [id number] [address] Eosinophils (Bld) [#/Vol] 0.10 10*3/uL Normal <0.46 [facility] Comment on above: Order Comment: Speci men Type: BLOOD SPECIMEN Performed By: #### 5 7021-8 ####[facility] [id number] [address] Eosinophils/100 WBC (Bld) 1.6 % Normal [facility] Comment on above: Order Comment: Speci men Type: BLOOD SPECIMEN Performed By: #### 5 7021-8 ####[facility] [id number] [address] Erythrocyte distribution width (RBC) [Ratio] 13.9 % Normal 11.5-15.0 [facility] Comment on above: Order Comment: Speci men Type: BLOOD SPECIMEN Performed By: #### 5 7021-8 ####[facility] [id number] [address] [facility] Hematocrit (Bld) [Volume fraction] 33.6 % Low 36.0-46.0 [facility] Comment on above: Order Comment: Speci men Type: BLOOD SPECIMEN Performed By: #### 5 7021-8 ####[facility]IA [id number] [address] Hemoglobin (Bld) [Mass/Vol] 9.4 g/dL Low 11.5-15.5 [facility] Comment on above: Order Comment: Speci men Type: BLOOD SPECIMEN Performed By: #### 5 7021-8 ####[facility]ORYCLIA [id number] [address] IMMATURE GRAN % 0.3 % Normal [facility] Comment on above: Order Comment: Speci men Type: BLOOD SPECIMEN Performed By: #### 5 7021-8 ####[facility]ORY[facility]IA [id number] [address] IMMATURE GRAN ABS <0.03 Normal <0.10 [facility] Comment on above: Order Comment: Speci men Type: BLOOD SPECIMEN Performed By: #### 5 7021-8 ####[facility]ORYCLIA [id number] [address] Lymphocytes (Bld) [#/Vol] 1.68 10*3/uL Normal 1.00-4.00 [facility] Comment on above: Order Comment: Speci men Type: BLOOD SPECIMEN Performed By: #### 5 7021-8 ####[facility]ORYCLIA [id number] [address] Lymphocytes/100 WBC (Bld) 27.6 % Normal [facility] Comment on above: Order Comment: Speci men Type: BLOOD SPECIMEN Performed By: #### 5 7021-8 ####[facility]ORYCLIA [id number] [address] MCH (RBC) [Entitic mass] 31.2 pg Normal 26.0-34.0 [facility] Comment on above: Order Comment: Speci men Type: BLOOD SPECIMEN Performed By: #### 5 7021-8 ####[facility]ORYCLIA [id number] [address] MCHC (RBC) [Mass/Vol] 28.0 g/dL Low 30.5-36.0 [facility] Comment on above: Order Comment: Speci men Type: BLOOD SPECIMEN Performed By: #### 5 7021-8 ####[facility]ORYCLIA [id number] [address] MCV (RBC) [Entitic vol] 111.6 fL High 80.0-100.0 [facility] Comment on above: Order Comment: Speci men Type: BLOOD SPECIMEN Performed By: #### 5 7021-8 ####[facility] [id number] [address] Monocytes (Bld) [#/Vol] 0.56 10*3/uL Normal <0.87 [facility] Comment on above: Order Comment: Speci men Type: BLOOD SPECIMEN Performed By: #### 5 7021-8 ####[facility]IA [id number] [address] Monocytes/100 WBC (Bld) 9.2 % Normal [facility] Comment on above: Order Comment: Speci men Type: BLOOD SPECIMEN Performed By: #### 5 7021-8 ####[facility]ORYCLIA [id number] [address] Neutrophils (Bld) [#/Vol] 3.66 10*3/uL Normal 1.45-7.50 [facility] Comment on above: Order Comment: Speci men Type: BLOOD SPECIMEN Performed By: #### 5 7021-8 ####[facility]ORYCLIA [id number] [address] Neutrophils/100 WBC (Bld) 60.2 % Normal [facility] Comment on above: Order Comment: Speci men Type: BLOOD SPECIMEN Performed By: #### 5 7021-8 ####[facility]ORYCLIA [id number] [address] Nucleated RBC (Bld) [#/Vol] 10*3/uL Normal <0.01 [facility] Comment on above: Order Comment: Speci men Type: BLOOD SPECIMEN Performed By: #### 5 7021-8 ####[facility]ORYCLIA [id number] [address] [facility] Nucleated RBC/100 WBC (Bld) [Ratio] 0.0 /100 WBC Normal 0.0 [facility] Comment on above: Order Comment: Speci men Type: BLOOD SPECIMEN Performed By: #### 5 7021-8 ####[facility]ORYCLIA [id number] [address] Platelet mean volume (Bld) [Entitic vol] 10.3 fL Normal 9.0-12.7 [facility] Comment on above: Order Comment: Speci men Type: BLOOD SPECIMEN Performed By: #### 5 7021-8 ####[facility]ORYCLIA [id number] [address] Platelets (Bld) [#/Vol] 353 10*3/uL Normal 150-400 [facility] Comment on above: Order Comment: Speci men Type: BLOOD SPECIMEN Performed By: #### 5 7021-8 ####[facility]ORYCLIA [id number] [address] RBC (Bld) [#/Vol] 3.01 10*6/uL Low 3.90-5.20 [facility] Comment on above: Order Comment: Speci men Type: BLOOD SPECIMEN Performed By: #### 5 7021-8 ####[facility]ORYCLIA [id number] [address] WBC (Bld) [#/Vol] 6.09 10*3/uL Normal 3.70-11.00 [facility] Comment on above: Order Comment: Speci men Type: BLOOD SPECIMEN Performed By: #### 5 7021-8 ####[facility]ORYCLIA [id number] [address] CNOVon 04-16-2021 CNOV Office Visit (AGGASTACC) ANGELES LARIOS ([id number]) 1960 F Date Time Provider Department 04/16/21 [...] pale stool. She was referred by her sash finisher in [place] Dr. Gutierrez. She has a history of anemia and has been on iron supplementation. She has fatigue and intermittent nausea. EGD in 03/10/[address] Charley De La Fuente in [place]: Normal Biopsies were not done Colonoscopy 03/10/2021 [...] artery disease) - Coronary artery disease involving ramona coronary artery of ramona heart without angina pectoris 06/27/2017 ASA, plavix - CVA (cerebral vascular accident) (HCC) 06/2012 - Embolus of femoral artery ([facility]) 06/25/2017 - Episode of recurrent major depressive disorder ([facility]) 05/10/2018 Duloxetine,wellbutrin , varenicline - Essential [...] apnea) 05/10/2018 - PVD (peripheral vascular disease) ([facility]) 05/10/2018 - Snoring PAST SURGICAL HISTORY Procedure Laterality Date - APPENDECTOMY 1998 - COLONOSCOP W/ OR W/O BRSH SPEC 03/10/2021 - EGD W/O OR W/BRUSH/WASH 03/10/2021 - INSERT CATH,ART,PERCUT,SHORT TERM 10/13/2012 RIGHT - PAST SURGICAL HISTORY OF 2008 cardiac stents x 3 placed - PAST SURGICAL HISTORY OF 06/25/2017 Rt [employer] INSPECTION AND REPAIR MANAGER embolectomy - THROMBOENDARTECTMY NECK,NECK INCIS 10/13/2012 LEFT [...] Alcohol use: (more content not included)... Normal [facility] CNOV Office Visit (AGGENS3) ANGELES LARIOS ([id number]) 1960 F Date Time Provider Department 04/16/21 [...] artery disease) - Coronary artery disease involving ramona coronary artery of ramona heart without angina pectoris 06/27/2017 ASA, plavix - CVA (cerebral vascular accident) ([facility]) 06/2012 - Embolus of femoral artery ([facility]) 06/25/2017 - Episode of recurrent major depressive disorder ([facility]) 05/10/2018 Duloxetine,wellbutrin , varenicline - Essential [...] apnea) 05/10/2018 - PVD (peripheral vascular disease) ([facility]) 05/10/2018 - Snoring PAST SURGICAL HISTORY Procedure Laterality Date - APPENDECTOMY 1998 - COLONOSCOP W/ OR W/O BRSH SPEC 03/10/2021 - EGD W/O OR W/BRUSH/WASH 03/10/2021 - INSERT CATH,ART,PERCUT,SHORT TERM 10/13/2012 RIGHT - PAST SURGICAL HISTORY OF 2008 cardiac stents x 3 placed - PAST SURGICAL HISTORY OF 06/25/2017 Rt CAR INSPECTION AND REPAIR MANAGER embolectomy - THROMBOENDARTECTMY NECK,NECK INCIS 10/13/2012 LEFT [...] incontinence M (more content not included)... Normal [facility] Cici 04-16-2021 [facility] Telephone (AGGASTACC ) ANGELES LARIOS ([id number]) 1960 F Date Time Provider Department 04/16/21 RAZLEONARD PHIPPS During your visit today, we recorded the following information about you: Debbie Vallecillo 04/16/2021 1:31 PM Signed Surgery Checklist Type: COLONOSCOPY/EGD/CAPSU LE ENDOSCOPY Admission Type: outpatient Anesthesia: MAC Date: 04/05/21 Arrival Time: 12:45 PM Surgery Time: 02:15 PM Location: [facility] CASE# [id number] Prep given at appointment. Debbie Vallecillo Allergies [...] (HCC) [I74.3] 06/25/2017 Coronary artery disease involving ramona samano*06/27/2017 Essential hypertension [I10] 06/27/2017 Mixed hyperlipidemia [E78.2] 06/27/2017 Episode of recurrent major depressive disorder *05/10/2018 Acquired hypothyroidism [E03.9] 05/10/2018 GERD (gastroesophageal reflux disease) [K21.9] 05/10/2018 PVD (peripheral vascular disease) ([facility]) [I73.9] 05/10/2018 PATRICA (obstructive sleep apnea) [G47.33] 05/10/2018 Fibromyalgia [M79.7] 05/10/2018 Irritable bowel syndrome with both constipation*05/10/20 18 Diabetes mellitus (HCC) [E11.9] 05/10/2018 Iron deficiency anemia [D50.9] 05/10/2018 HTN (hypertension) [I10] CVA (cerebral vascular accident) ([facility]) [I63.9] CAD (coronary artery disease) [I25.10] Obesity, Class III, BMI >= 40 [E66.01] 01/24/2019 Carotid stenosis [I65.29] 02/18/2019 Nicotine use disorder, F17.2 [F17.200] 02/20/2019 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 Encounter Status:Closed by DEBBIE VALLECILLO on 04/16/21 Normal [facility] CREATININE BLDon 04-16-2021 Creatinine [Mass/Vol] 0.77 mg/dL Normal 0.58-0.96 [facility] Comment on above: Order Comment: Speci men Type: BLOOD SPECIMEN Performed By: #### C RET1 #### [facility] CLIA [id number] [address] [place] [address] [place] GFR/1.73 sq M.predicted MDRD (S/P/Bld) [Vol rate/Area] mL/min/{1.73_m2} Normal [facility] Comment on above: Order Comment: Speci [...] GFR. Performed By: #### C RET1 #### [facility] CLIA [id number] [address] [place] GLIADIN (DEAMIDATED) AB, IGA on 04-16-2021 Gliadin peptide IgA Qn (S) 11 Units Normal <20 [facility] Comment on above: Order Comment: Speci [...] titer. Performed By: #### JERILYN BADILLO #### [facility] CLIA [id number] [address] [facility] [address] [place] [facility] GLIADIN (DEAMIDATED) AB, IGG on 04-16-2021 Gliadin peptide IgG Qn (S) 1 Units Normal <20 [facility] Comment on above: Order Comment: Speci [...] titer. Performed By: #### JERILYN BADILLO #### [facility] CLIA [id number] [address] [place] [id number] [place] IGA BLDon 04-16-2021 IgA [Mass/Vol] 99 mg/dL Normal 70-400 [facility] Comment on above: Order Comment: Speci men Type: BLOOD SPECIMEN Performed By: #### I GA TGLGMA ####[facility] LABCLIA [id number] [facility] [address] [place] TRANSGLUTAMINASE ABSon 04-16 tTG IgA Qn (S) 5 Units Normal <20 [facility] Comment on above: Order [...] titer. Performed By: #### I LEA BALL ####[facility] LABCLIA [id number] [place] [employer]K [address] tTG IgG Qn (S) 3 Units Normal <20 [facility] Comment on above: Order [...] titer. Performed By: #### I LEA BALL ####[facility] LABCLIA [id number] [facility] [address] [place] TSH SerPl-aCncon 04-16-2021 TSH Qn 1.480 m[IU]/L Normal 0.270-4.200 [facility] Comment on above: Order Comment: Speci men Type: BLOOD SPECIMEN Performed By: #### 3 016-3 ####[facility]ORYCLIA [id number] [address] [place] CNPNon 01-07-2021 CNPN Telephone ([facility]) ANGELES LARIOS ([id number]) 1960 F Date Time Provider Department 01/07/21 JENNIFER CLEMONS During your visit today, we recorded the following information about you: Jennifer Clemons RN 01/07/2021 10:53 AM Signed Reason for call: Mr Larios called and she would like to schedule a follow up appointment with DR Brown Last seen 05/28/2020 looking for a mid morning appointment. Home and cell number [phone] Diagnosis Bobby carotid stenosis Kind Regards Jennifer [...] (HCC) [I74.3] 06/25/2017 Coronary artery disease involving ramona samano*06/27/2017 Essential hypertension [I10] 06/27/2017 Mixed hyperlipidemia [E78.2] 06/27/2017 Episode of recurrent major depressive disorder *05/10/2018 Acquired hypothyroidism [E03.9] 05/10/2018 GERD (gastroesophageal reflux disease) [K21.9] 05/10/2018 PVD (peripheral vascular disease) ([facility]) [I73.9] 05/10/2018 PATRICA (obstructive sleep apnea) [G47.33] 05/10/2018 Fibromyalgia [M79.7] 05/10/2018 Irritable bowel syndrome with both constipation*05/10/20 18 Diabetes mellitus ([facility]) [E11.9] 05/10/2018 Iron deficiency anemia [D50.9] 05/10/2018 HTN (hypertension) [I10] CVA (cerebral vascular accident) ([facility]) [I63.9] CAD (coronary artery disease) [I25.10] Obesity, Class III, BMI >= 40 [E66.01] 01/24/2019 Carotid stenosis [I65.29] 02/18/2019 Nicotine use disorder, F17.2 [F17.200] 02/20/2019 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 Encounter Status:Closed by JENNIFER CLEMONS on 01/07/21 Normal [facility] Culture, urineon 05-27-2019 Bacteria identified Cx Nom (U) Escherichia coli [facility] Culture, urineon 05-24-2019 Bacteria identified Cx Nom (U) Escherichia coli Abnormal [facility] Erythrocyte distribution wid th standard deviationon 02-08-2019 Erythrocyte distribution width (RBC) [Entitic vol] 48.6 fL High 35.1-43.9 [facility] Laboratory - Hematology and Cell countson 02-08-2019 Erythrocyte distribution width (RBC) [Ratio] 13.3 % 11.6-14.6 [facility] Total cell counton 9 Cells counted Molgen (Bld/Tiss) [#] Not Reportable [facility] Hemoglobin in reticulocytes (mass per reticulocyte)on 03-25-2018 Hemoglobin (Reticulocytes) [Entitic mass] 34.8 pg 30-35 [facility] Work Phone: No Panel Informationon 03-25 Immature Platelet Fraction 3.3 % 1.0-7.9 [facility] Comment on above: Low PLT + Low IPF flores ggest a bone marrow production disorderLow PLT + high IPF suggests peripheral destruction(e.g.ITP, TTP, HIT, DIC, autoimmune) or bone marrow recoveryTrending of serial IPF measurements is recommended when evaluating for bone marrow responesValue above normal range indicates an increase in RBC cellular response from bone marrow. Immature Reticulocyte Fraction 11.40 % 3.00-15.90 [facility] Work Phone: Reticulocyte Count 1.86 % 0.5-1.5 [facility] Work Phone: Lab Report: BNP,B-Type NATRI URETIC PEPTIDEon 10-13-2017 Natriuretic peptide B (Bld) [Mass/Vol] 30.4 pg/mL Invalid Interpretation Code 0-100 [facility] Work Phone: Lab Report: Basic Metabolic Profile (BMP)on 10-13-2017 Anion gap [Moles/Vol] 6 mmol/L Invalid Interpretation Code 5-15 [facility] Work Phone: Calcium [Mass/Vol] 8.2 mg/dL Low 8.5-10.1 [facility] Work Phone: Chloride [Moles/Vol] 106 mmol/L Invalid Interpretation Code 98-107 [facility] Work Phone: CO2 (BldV) [Partial pressure] 27.0 mmol/L Invalid Interpretation Code 21.0-32.0 [facility] Work Phone: Creatinine [Mass/Vol] 0.72 mg/dL Invalid Interpretation Code 0.55-1.02 [facility] Work Phone: GFR/1.73 sq M.predicted among non-blacks MDRD (S/P/Bld) [Vol rate/Area] 88 mL/min/{1.73_m2} Invalid Interpretation Code >60 [facility] Work Phone: Glomerular Filtration rate 107 mL/min Invalid Interpretation Code >60 [facility] Work Phone: Glucose [Mass/Vol] 127 mg/dL High 74-106 [facility] Work Phone: Potassium [Moles/Vol] 3.9 mmol/L Invalid Interpretation Code 3.5-5.1 [facility] Work Phone: Sodium [Moles/Vol] 139 mmol/L Invalid Interpretation Code 136-145 [facility] Work Phone: Urea nitrogen [Mass/Vol] 13 mg/dL Invalid Interpretation Code 7-18 [facility] Work Phone: Urea nitrogen/Creatinine [Mass ratio] 18.3395519 mg/mg Invalid Interpretation Code 10-20 [facility] Work Phone: Clinical 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 Left ventricular Ejection fraction 60 % Invalid Interpretation Code [facility] Work Phone: ACT CSLabon 07-07-2017 ACT CSLab 258 seconds High 89-153 [facility] Comment on above: Performed By: #### P T ####[place] [address] Activated PTTon 06-28-2017 aPTT 27.7 s Normal 22.0-34.0 [facility] Comment on above: Performed By: #### P T ####[place] [address] Protimeon 06-28-2017 INR Coag RelTime (PPP) 1.07 {INR} Normal [facility] Comment on above: Result Comment: Yannick dard Therapy 2.0-3.0High Dose 2.5-3.5 Performed By: #### P T ####[place] [address] Prothrombin time (PT) Coag time (PPP) 11.4 s Normal 9.3-11.9 [facility] Comment on above: Performed By: #### P T ####[address] [place], [place] [address] Activated PTTon 06-27-2017 aPTT 75.2 s High 22.0-34.0 [facility] Comment on above: Performed By: #### P T ####[place] [address] aPTT 51.8 s High 22.0-34.0 [facility] Comment on above: Performed By: #### G FR ####[place] [address] Hemogramon 06-27-2017 Erythrocyte distribution width Auto Ratio (RBC) 16.1 % High 11.7-14.4 [facility] Comment on above: Performed By: #### G FR ####[place] [address] Erythrocytes (RBC) 3.43 mil/cmm Low 3.93-5.22 [facility] Comment on above: Performed By: #### G FR ####[place] [address] Hematocrit (HCT) 29.4 % Low 34.1-44.9 [facility] Comment on above: Performed By: #### G FR ####[place] [address] Hemoglobin mass conc (Bld) 8.8 g/dL Low 11.2-15.7 [facility] Comment on above: Performed By: #### G FR ####[place] [address] MCH 25.7 pg Normal 25.6-32.2 [facility] Comment on above: Performed By: #### G FR ####[place] [address] MCHC mass conc (RBC) 29.9 % Low 31.6-34.8 [facility] Comment on above: Performed By: #### G FR ####[place] [address] MCV 85.7 fL Normal 79.4-94.8 [facility] Comment on above: Performed By: #### G FR ####[facility] [place], [place] [address] Platelet mean volume (PMV) 10.3 fL Normal 9.4-12.3 [facility] Comment on above: Performed By: #### G FR ####[facility] [place] [address] Platelets 258 thou/cmm Normal 182-369 [facility] Comment on above: Performed By: #### G FR ####[place] [address] RDW SD 50.2 fl High 36.4-46.3 [facility] Comment on above: Performed By: #### G FR ####[place] [address] WBC (Leukocytes) 10.88 thou/cmm High 3.98-10.04 [facility] Comment on above: Performed By: #### G FR ####[place] [address] Lipid Profileon 06-27-2017 Cholesterol to HDL Ratio 4.1 {ratio} Normal 1.8-5.3 [facility] Comment on above: Performed By: #### P T ####[place] [address] HDL Cholesterol 41 mg/dL Normal >40 [facility] Comment on above: Performed By: #### P T ####[place] [address] LDL Cholesterol 95 mg/dL Normal [facility] Comment on above: Result Comment: No C AD and with fewer than 2 CAD risk factors <160 mg/dlNo CAD but with 2 or more CAD risk factors <130 mg/dlDefinite CAD or other atherosclerotic disease <100 mg/dl Performed By: #### P T ####[place] [address] LDL to HDL Ratio 2.3 Normal 0.6-3.6 [facility] Comment on above: Result Comment: LDL, VLDL,LDL/HDL, Invalid if Triglyceride >400 Performed By: #### P T ####[place] [address] Cholesterol in VLDL mass conc 33 mg/dL Normal <50 Desired [facility] Comment on above: Performed By: #### P T ####[place] [id number] Triglyceride 166 mg/dL High 0-149 [facility] Comment on above: Result Comment: < 20 0 DesirableResult invalid if not a fasting specimen. Performed By: #### P T ####[place] [address] Cholesterol 169 mg/dL Normal 0-199 [facility] Comment on above: Result Comment: <200 [id number] Borderline>240 High Performed By: #### P T ####[place] [address] Protimeon 06-27-2017 INR Coag RelTime (PPP) 0.99 {INR} Normal [facility] Comment on above: Result Comment: Yannick dard Therapy 2.0-3.0High Dose 2.5-3.5 Performed By: #### G FR ####[place] [address] Prothrombin time (PT) Coag time (PPP) 10.7 s Normal 9.3-11.9 [facility] Comment on above: Performed By: #### G FR ####[place] [address] ARTERIAL UP/LOW/REST/MANUEVE Giovanni 06-26-2017 ARTERIAL UP/LOW/REST/MANUEVER Performed at [facility] APPROVED BY: STEPHANIE JOHN MD EXAM [...] suggestive of possible proximal aortoiliac disease. Normal [facility] Activated PTTon 06-26-2017 aPTT 62.4 s High 22.0-34.0 [facility] Comment on above: Performed By: #### G FR ####[facility] [place] [address] aPTT 69.5 s High 22.0-34.0 [facility] Comment on above: Performed By: #### G FR ####[facility] [place] [address] Basic Panelon 06-26-2017 Creatinine 0.63 mg/dL Normal 0.51-0.95 [facility] Comment on above: Performed By: #### G FR ####[facility] [place] [address] Anion gap 11 mmol/L Normal 8-16 [facility] Comment on above: Performed By: #### G FR ####[facility] [place] [address] CO2 26 mmol/L Normal 21-32 [facility] Comment on above: Performed By: #### G FR ####[facility] [place] [address] Urea nitrogen 14 mg/dL Normal 7-18 [facility] Comment on above: Performed By: #### G FR ####[facility] [place] [address] Calcium 8.1 mg/dL Low 8.5-10.1 [facility] Comment on above: Performed By: #### G FR ####[facility] [place] [address] Glucose mass conc 130 mg/dL High 70-99 [facility] Comment on above: Performed By: #### G FR ####[facility] [place] [address] Chloride 105 mmol/L Normal 98-107 [facility] Comment on above: Performed By: #### G FR ####[address] [address] Potassium molar conc 3.8 mmol/L Normal 3.5-5.1 [facility] Comment on above: Performed By: #### G FR ####[place] [address] Sodium 138 mmol/L Normal 136-145 [facility] Comment on above: Performed By: #### G FR ####[address] [address] Hemogram/Diffon 06-26-2017 Basophils Auto #/vol (Bld) 0.04 thou/cmm Normal 0.01-0.08 [facility] Comment on above: Result Comment: Smea r scanned; tech agrees with automated differential Performed By: #### G FR ####[address] [address] Basophils/100 WBC Auto (Bld) 0.3 % Normal [facility] Comment on above: Performed By: #### G FR ####[address] [address] Eosinophils 0.01 thou/cmm Normal 0.00-0.31 [facility] Comment on above: Performed By: #### G FR ####[address] [address] Eosinophils/100 leukocytes 0.1 % Normal [facility] Comment on above: Performed By: #### G FR ####[address] [address] Immature Grans 0.50 % Normal [facility] Comment on above: Performed By: #### G FR ####[address] [address] Immature Grans # 0.07 thou/cmm High 0.00-0.05 [facility] Comment on above: Performed By: #### G FR ####[facility] [place], [place] [address] Lymphocytes 2.34 thou/cmm Normal 1.18-3.74 [facility] Comment on above: Performed By: #### G FR ####[facility] [place], [place] [address] Lymphocytes/100 leukocytes 15.8 % Normal [facility] Comment on above: Performed By: #### G FR ####[facility] [place], [place] [address] Monocytes 1.29 thou/cmm High 0.27-0.70 [facility] Comment on above: Performed By: #### G FR ####[facility] [place] [address] Monocytes/100 leukocytes 8.7 % Normal [facility] Comment on above: Performed By: #### G FR ####[address] [address] Seg Neutrophil 74.6 % Normal [facility] Comment on above: Performed By: #### G FR ####[place] [address] Seg. Neut.# 11.07 thou/cmm High 1.56-6.13 [facility] Comment on above: Performed By: #### G FR ####[place] [address] Erythrocyte distribution width Auto Ratio (RBC) 16.0 % High 11.7-14.4 [facility] Comment on above: Performed By: #### G FR ####[place] [address] Erythrocytes (RBC) 3.60 mil/cmm Low 3.93-5.22 [facility] Comment on above: Performed By: #### G FR ####[place] [address] Hematocrit (HCT) 30.8 % Low 34.1-44.9 [facility] Comment on above: Performed By: #### G FR ####[place] [address] Hemoglobin mass conc (Bld) 9.5 g/dL Low 11.2-15.7 [facility] Comment on above: Performed By: #### G FR ####[facility] [place] [address] MCH 26.4 pg Normal 25.6-32.2 [facility] Comment on above: Performed By: #### G FR ####[facility] [place] [address] MCHC mass conc (RBC) 30.8 % Low 31.6-34.8 [facility] Comment on above: Performed By: #### G FR ####[facility] [place] [address] MCV 85.6 fL Normal 79.4-94.8 [facility] Comment on above: Performed By: #### G FR ####[place] [address] Platelet mean volume (PMV) 10.5 fL Normal 9.4-12.3 [facility] Comment on above: Performed By: #### G FR ####[facility] [place] [address] Platelets 308 thou/cmm Normal 182-369 [facility] Comment on above: Performed By: #### G FR ####[place] [address] RDW SD 50.2 fl High 36.4-46.3 [facility] Comment on above: Performed By: #### G FR ####[place] [address] WBC (Leukocytes) 14.84 thou/cmm High 3.98-10.04 [facility] Comment on above: Performed By: #### G FR ####[place] [id number] MDRD GFRon 06-26-2017 eGFR (non-black) mL/min/{1.73_m2} Normal >60mL/m in/1 .73m2 [facility] Comment on above: Result Comment: If t he patient is , multiply the result by 1.210. Performed By: #### G FR ####[facility] [place], [place] [address] Bear 06-25-2017 ACT 258 sec High 89-169 [facility] Comment on above: Performed By: #### A CT ####[facility] [place], [place] [address] Activated PTTon 06-25-2017 aPTT 117.9 s Critically high 22.0-34.0 [facility] Comment on above: Result Comment: RESU LT RECHECKED Performed By: #### G FR ####[place] [address] Basic Panelon 06-25-2017 Creatinine 0.59 mg/dL Normal 0.51-0.95 [facility] Comment on above: Performed By: #### P 8 ####[place] [address] Anion gap 9 mmol/L Normal 8-16 [facility] Comment on above: Performed By: #### P 8 ####[place] [address] CO2 24 mmol/L Normal 21-32 [facility] Comment on above: Performed By: #### P 8 ####[place] [address] Glucose mass conc 162 mg/dL High 70-99 [facility] Comment on above: Performed By: #### P 8 ####[place] [address] Urea nitrogen 12 mg/dL Normal 7-18 [facility] Comment on above: Performed By: #### P 8 ####[address] [address] Calcium 7.8 mg/dL Low 8.5-10.1 [facility] Comment on above: Performed By: #### P 8 ####[place] [address] Chloride 107 mmol/L Normal 98-107 [facility] Comment on above: Performed By: #### P 8 ####[address] [place] [address] Potassium molar conc 3.7 mmol/L Normal 3.5-5.1 [facility] Comment on above: Performed By: #### P 8 ####[facility] [place], [place] [address] Sodium 136 mmol/L Normal 136-145 [facility] Comment on above: Performed By: #### P 8 ####[facility] [place], [place] [address] Creatinine 0.65 mg/dL Normal 0.51-0.95 [facility] Comment on above: Performed By: #### P 8 ####[facility] [place], [place] [address] Anion gap 11 mmol/L Normal 8-16 [facility] Comment on above: Performed By: #### P 8 ####[address] [address] CO2 23 mmol/L Normal 21-32 [facility] Comment on above: Performed By: #### P 8 ####[address] [address] Glucose mass conc 165 mg/dL High 70-99 [facility] Comment on above: Performed By: #### P 8 ####[address] [address] Urea nitrogen 14 mg/dL Normal 7-18 [facility] Comment on above: Performed By: #### P 8 ####[facility] [place], [place] [address] Calcium 8.4 mg/dL Low 8.5-10.1 [facility] Comment on above: Performed By: #### P 8 ####[facility] [place], [place] [address] Chloride 108 mmol/L High 98-107 [facility] Comment on above: Performed By: #### P 8 ####[facility] [place], [place] [address] Potassium molar conc 3.7 mmol/L Normal 3.5-5.1 [facility] Comment on above: Performed By: #### P 8 ####[facility] [place] [address] Sodium 138 mmol/L Normal 136-145 [facility] Comment on above: Performed By: #### P 8 ####[place] [address] Hemogramon 06-25-2017 Erythrocyte distribution width Auto Ratio (RBC) 16.0 % High 11.7-14.4 [facility] Comment on above: Performed By: #### C BC1 ####[place] [address] Erythrocytes (RBC) 4.01 mil/cmm Normal 3.93-5.22 [facility] Comment on above: Performed By: #### C BC1 ####[place] [address] Hematocrit (HCT) 34.3 % Normal 34.1-44.9 [facility] Comment on above: Performed By: #### C BC1 ####[place] [address] Hemoglobin mass conc (Bld) 10.5 g/dL Low 11.2-15.7 [facility] Comment on above: Performed By: #### C BC1 ####[place] [address] MCH 26.2 pg Normal 25.6-32.2 [facility] Comment on above: Performed By: #### C BC1 ####[place] [address] MCHC mass conc (RBC) 30.6 % Low 31.6-34.8 [facility] Comment on above: Performed By: #### C BC1 ####[place] [address] MCV 85.5 fL Normal 79.4-94.8 [facility] Comment on above: Performed By: #### C BC1 ####[place] [address] Platelet mean volume (PMV) 10.2 fL Normal 9.4-12.3 [facility] Comment on above: Performed By: #### C BC1 ####[facility] [place], [place] [address] Platelets 277 thou/cmm Normal 182-369 [facility] Comment on above: Performed By: #### C BC1 ####[facility] [place], [place] [address] RDW SD 50.1 fl High 36.4-46.3 [facility] Comment on above: Performed By: #### C BC1 ####[place] [address] WBC (Leukocytes) 12.16 thou/cmm High 3.98-10.04 [facility] Comment on above: Performed By: #### C BC1 ####[place] [address] Erythrocyte distribution width Auto Ratio (RBC) 16.1 % High 11.7-14.4 [facility] Comment on above: Performed By: #### C BC1 ####[place] [address] Erythrocytes (RBC) 3.92 mil/cmm Low 3.93-5.22 [facility] Comment on above: Performed By: #### C BC1 ####[place] [address] Hematocrit (HCT) 33.5 % Low 34.1-44.9 [facility] Comment on above: Performed By: #### C BC1 ####[place] [address] Hemoglobin mass conc (Bld) 10.2 g/dL Low 11.2-15.7 [facility] Comment on above: Performed By: #### C BC1 ####[place] [address] MCH 26.0 pg Normal 25.6-32.2 [facility] Comment on above: Performed By: #### C BC1 ####[place] [address] MCHC mass conc (RBC) 30.4 % Low 31.6-34.8 [facility] Comment on above: Performed By: #### C BC1 ####[facility] [place], [place] [address] MCV 85.5 fL Normal 79.4-94.8 [facility] Comment on above: Performed By: #### C BC1 ####[address] [address] Platelet mean volume (PMV) 10.0 fL Normal 9.4-12.3 [facility] Comment on above: Performed By: #### C BC1 ####[address] [address] Platelets 246 thou/cmm Normal 182-369 [facility] Comment on above: Performed By: #### C BC1 ####[address] [address] RDW SD 50.2 fl High 36.4-46.3 [facility] Comment on above: Performed By: #### C BC1 ####[place] [id number] WBC (Leukocytes) 9.67 thou/cmm Normal 3.98-10.04 [facility] Comment on above: Performed By: #### C BC1 ####[place] [id number] Lactic Acidon 06-25-2017 Lactate 1.8 mmol/L Normal 0.4-2.0 [facility] Comment on above: Performed By: #### L AC ####[place] [id number] MDRD GFRon 06-25-2017 eGFR (non-black) mL/min/{1.73_m2} Normal >60mL/m in/1 .73m2 [facility] Comment on above: Result Comment: If t he patient is , multiply the result by 1.210. Performed By: #### G FR ####[address] [address] eGFR (non-black) mL/min/{1.73_m2} Normal >60mL/m in/1 .73m2 [facility] Comment on above: Result Comment: If t he patient is , multiply the result by 1.210. Performed By: #### G FR ####[place] [address] Protimeon 06-25-2017 INR Coag RelTime (PPP) 0.99 {INR} Normal [facility] Comment on above: Result Comment: Yannick dard Therapy 2.0-3.0High Dose 2.5-3.5 Performed By: #### G FR ####[place] [address] Prothrombin time (PT) Coag time (PPP) 10.7 s Normal 9.3-11.9 [facility] Comment on above: Performed By: #### G FR ####[place] [address] INR Coag RelTime (PPP) 0.98 {INR} Normal [facility] Comment on above: Result Comment: Yannick dard Therapy 2.0-3.0High Dose 2.5-3.5 Performed By: #### P T ####[place] [address] Prothrombin time (PT) Coag time (PPP) 10.6 s Normal 9.3-11.9 [facility] Comment on above: Performed By: #### P T ####[place] [address] Surgical Tissue Examon 06-25 Surgical Tissue Exam Test performed at [place] [address]NAME: ANGELES LARIOS [id number] REQUESTING: CELINE CORREA M.D.FINAL DIAGNOSIS:RIGHT FEMORAL EMBOLECTOMY [...] 16:29PRINTED: 06/29/2017 Page 1 of 1 Normal [facility] Comment on above: Performed By: #### P T ####[facility] [place] [address] Type and Screenon 06-25-2017 ABO group O Normal [facility] Comment on above: Performed By: #### T &S ####[facility] [place] [address] Antibody Screen Negative Normal [facility] Comment on above: Performed By: #### T &S ####[facility] [place] [address] Comment Emergency Room Normal [facility] Comment on above: Performed By: #### T &S ####[facility] [place] [address] RH Type Positive Normal [facility] Comment on above: Performed By: #### T &S ####[place] [address] Office Visiton 01-15-2017 Documentation of current medications (procedure) Done Invalid Interpretation Code [facility] Work Phone: Fall risk assessment No Invalid Interpretation Code [facility] Work Phone: Clinical Lists Update: Pre01-14-2017 Left ventricular Ejection fraction 70 % Invalid Interpretation Code [facility] Work Phone: Clinical 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 Albumin [Mass/Vol] 3.6 g/dL Invalid Interpretation Code [facility] Work Phone: Albumin/Globulin [Mass ratio] 1.1 {ratio} Invalid Interpretation Code [facility] Work Phone: Anion gap 7 mmol/L Invalid Interpretation Code [facility] Work Phone: Anion gap [Moles/Vol] 7 mmol/L Invalid Interpretation Code [facility] Work Phone: AST [Catalytic activity/Vol] 13 U/L Low [facility] Work Phone: Bilirubin [Mass/Vol] 0.20 mg/dL Invalid Interpretation Code [facility] Work Phone: Calcium [Mass/Vol] 8.6 mg/dL Invalid Interpretation Code [facility] Work Phone: Chloride [Moles/Vol] 106 mmol/L Invalid Interpretation Code [facility] Work Phone: CO2 27.0 mmol/L Invalid Interpretation Code [facility] Work Phone: CO2 (BldV) [Partial pressure] 27.0 mmol/L Invalid Interpretation Code [facility] Work Phone: Creatinine [Mass/Vol] 0.86 mg/dL Invalid Interpretation Code [facility] Work Phone: Erythrocyte distribution width (RBC) [Ratio] 12.9 % Invalid Interpretation Code [facility] Work Phone: Erythrocyte distribution width Auto Ratio (RBC) 12.9 % Invalid Interpretation Code [facility] Work Phone: Erythrocytes (RBC) 4.52 10*6/uL Invalid Interpretation Code [facility] Work Phone: Globulin 3.4 g/dL Invalid Interpretation Code [facility] Work Phone: globulin, serum 3.4 Invalid Interpretation Code [facility] Work Phone: Glucose [Mass/Vol] 109 mg/dL Invalid Interpretation Code [facility] Work Phone: Hematocrit (Bld) [Volume fraction] 44.7 % Invalid Interpretation Code [facility] Work Phone: Hematocrit (HCT) 44.7 % Invalid Interpretation Code [facility] Work Phone: Hemoglobin (Bld) [Mass/Vol] 14.3 g/dL Invalid Interpretation Code [facility] Work Phone: MCH 31.6 pg Invalid Interpretation Code [facility] Work Phone: MCH (RBC) [Entitic mass] 31.6 pg Invalid Interpretation Code [facility] Work Phone: MCHC (RBC) [Mass/Vol] 32.0 g/dL Invalid Interpretation Code [facility] Work Phone: MCHC mass conc (RBC) 32.0 g/dL Invalid Interpretation Code [facility] Work Phone: MCV 98.9 fL Invalid Interpretation Code [facility] Work Phone: MCV (RBC) [Entitic vol] 98.9 fL Invalid Interpretation Code [facility] Work Phone: Platelet mean volume (Bld) [Entitic vol] 10.4 fL Invalid Interpretation Code [facility] Work Phone: Platelets 267 10*3/mm3 Invalid Interpretation Code [facility] Work Phone: Platelets (Bld) [#/Vol] 267 10*3/uL Invalid Interpretation Code [facility] Work Phone: PMV by Roxane 10.4 fL Invalid Interpretation Code [facility] Work Phone: Potassium [Moles/Vol] 4.3 mmol/L Invalid Interpretation Code [facility] Work Phone: Protein [Mass/Vol] 7.0 g/dL Invalid Interpretation Code [facility] Work Phone: RBC (Bld) [#/Vol] 4.52 10*6/uL Invalid Interpretation Code [facility] Work Phone: Sodium [Moles/Vol] 140 mmol/L Invalid Interpretation Code [facility] Work Phone: Thyroid stimulating hormone (TSH) 1.81 u[iU]/mL Invalid Interpretation Code [facility] Work Phone: TSH Qn 1.81 m[IU]/L Invalid Interpretation Code [facility] Work Phone: Urea nitrogen [Mass/Vol] 15 mg/dL Invalid Interpretation Code [facility] Work Phone: Urea nitrogen/Creatinine [Mass ratio] 17.4 mg/mg Invalid Interpretation Code [facility] Work Phone: WBC (Bld) [#/Vol] 6.4 10*3/uL Invalid Interpretation Code [facility] Work Phone: WBC (Leukocytes) 6.4 10*3/uL Invalid Interpretation Code [facility] Work Phone: Office Visiton 12-30-2016 Dietary management education, guidance, and counseling (procedure) yes Invalid Interpretation Code [facility] Work Phone: Smoking cessation education (procedure) yes Invalid Interpretation Code [facility] Work Phone: Tobacco smoking status Tobacco smoking status NHIS Invalid Interpretation Code [facility] Work Phone: Tobacco use status [facility] Current every da y smoker Invalid Interpretation Code [facility] Work Phone: Lab Report: Vitamin D 1,25-D ihydroxyon 09-03-2016 vitamin D 1,25-dihydroxy, serum 39.3 Invalid Interpretation Code 19.9-79.3 [facility] Work Phone: VITD 1,25 [id number] 39.3 Invalid Interpretation Code 19.9-79.3 [facility] Work Phone: Lab Report: PTH,INTACTon Parathyrin.intact [Mass/Vol] 65 pg/mL Invalid Interpretation Code 14-72 [facility] Work Phone: Lab Report: Alkaline Phospha taseon 08-30-2016 Alkaline phosphatase (ALP) 105 U/L Invalid Interpretation Code 45-117 [facility] Work Phone: ALP (Bld) [Catalytic activity/Vol] 105 U/L Invalid Interpretation Code 45-117 [facility] Work Phone: Lab Report: Calcium,Totalon 08-30-2016 Calcium [Mass/Vol] 9.0 mg/dL Invalid Interpretation Code 8.5-10.1 [facility] Work Phone: Replaced Document: Bonifacio DAWN Observationson 07-15-2016 EKG QRS axis 27 deg Invalid Interpretation Code [facility] Work Phone: electrocardiogram interpretation Marked sinus Bradycardia BORDERLINE RHYTHM Invalid Interpretation Code [facility] Work Phone: GE use only - for LinkLogic import when terms are not otherwise specified 401 ms Invalid Interpretation Code [facility] Work Phone: Heart rate 48 /min Invalid Interpretation Code [facility] Work Phone: Interpretation Marked sinus Bradycardia BORDERLINE RHYTHM Invalid Interpretation Code [facility] Work Phone: P [place] 51 deg Invalid Interpretation Code [facility] Work Phone: P wave axis, electrocardiogram 51 deg Invalid Interpretation Code [facility] Work Phone: MA Interval 170 ms Invalid Interpretation Code [facility] Work Phone: MA interval, electrocardiogram 170 ms Invalid Interpretation Code [facility] Work Phone: QRS axis, electrocardiogram 27 deg Invalid Interpretation Code [facility] Work Phone: QRS Duration 106 ms Invalid Interpretation Code [facility] Work Phone: QRS duration, electrocardiogram 106 ms Invalid Interpretation Code [facility] Work Phone: QT Interval new path ms Invalid Interpretation Code [facility] Work Phone: QT interval, electrocardiogram new path ms Invalid Interpretation Code [facility] Work Phone: QTc Singh 401 ms Invalid Interpretation Code [facility] Work Phone: T [place] 43 deg Invalid Interpretation Code [facility] Work Phone: T wave axis, electrocardiogram 43 deg Invalid Interpretation Code [facility] Work Phone: Chart Maintenanceon 11-29-19 16 Left ventricular Ejection fraction 70 % Invalid Interpretation Code [facility] Work Phone: Hemoglobin Glyclated (HGB A1 C) ([id number])Ordered By: [facility] Manager on 08-30-2015 HbA1c (Bld) [Mass fraction] 5.6 % Normal 4.8-5.6 [facility] Work Phone: Comment on above: . Pre-diabetes: 5.7 - 6.4 Diabetes: >6.4 Glycemic control for adults with diabetes: <7.0 PATIENT NOT FASTINGP ERFORMED BY: [facility] [id number] [facility] [id number] Information: [id number] HPV automatic ([id number])Ordered By: [facility] Manager on 07-26-2015 HPV 16+18+31+33+35+39+45+51 +52+56+58+59+68 DNA Probe+sig amp Ql (Cvx) Negative Normal Comprehen [facility]; [facility] Work Phone: Comment on above: This high-risk HPV t est detects thirteen high-risk types(16/18/31/33/35/39/45/51/52/56/58/59/68) without differentiation. . Source.............C ervical;EndocervicalNo. of containers..01 CYTYC Thin Prep VialPATIENT NOT FASTINGPERFORMED BY: LabCandescent Eye HoldingsrXicepta SciencesLifePoint Hospitals [id number] BY: =G LabClippership Intl Dr. Fred Stone, Sr. HospitalCurtume ErêLifePoint Hospitals [id number] Information: [id number] Microscopic observation Other stain Nom (Unsp spec) . Normal [facility]; [facility] Work Phone: Comment on above: Source.............C ervical;EndocervicalNo. of containers..01 CYTYC Thin Prep VialPATIENT NOT FASTINGPERFORMED BY: TealeafrXicepta SciencesLifePoint Hospitals [id number] BY: =G LabCandescent Eye HoldingsrXicepta SciencesLifePoint Hospitals [id number] Information: [id number] Pathology report final diagnosis Narrative SPRCS Normal Comprehensiv e Internal Medicine; [facility] Work Phone: Comment on above: NEGATIVE FOR INTRAEP ITHELIAL LESION AND MALIGNANCY.Satisfactory for evaluation. Endocervical and/or squamous metaplasticcells (endocervical component) are present.Jennifer Middleton, Law Enforcement Officer ([facility]) Source.............C ervical;EndocervicalNo. of containers..01 CYTYC Thin Prep VialPATIENT NOT FASTINGPERFORMED BY: WB LabBuytech120 [facility] CarerXicepta [place] [id number] BY: =G LabCoJoules Clothing[address] PlazaAutoRealtyrleston [place] [id number] Information: [id number] HPV automatic (09451) PAPSMR Normal Com prehensive Internal Medicine; Comprehensive [...] Prep VialPATIENT NOT FASTINGPERFORMED BY: WB [facility] Ncuqdbvmyr977 [address] PlazaAutoRealtyrleston [place] [id number] BY: =G [facility] Qsosqvkjlq926 [address] PlazaCharleston [place] [id number] Information: [id number] Lab Report: AFP, Tumor Malika smith 07-05-2015 AFP TUMOR 2253 3.3 ng/mL Invalid Interpretation Code 0.0-8.3 [facility] Work Phone: alpha-1 fetoprotein tumor marker, serum/plasma 3.3 ng/mL Invalid Interpretation Code 0.0-8.3 [facility] Work Phone: Lab Report: Bilirubin, Direc ton 07-04-2015 Bilirubin.direct [Mass/Vol] 0.06 mg/dL Invalid Interpretation Code 0.00-0.30 [facility] Work Phone: Lab Report: CBC W/Diff, Auto matedon 07-04-2015 Absolute Neut 3.8 X10 3/UL Invalid Interpretation Code 2.0-7.7 [facility] Work Phone: Basophils/100 WBC (Bld) 1.3 % High 0-1 [facility] Work Phone: Basophils/100 WBC Auto (Bld) 1.3 % High 0-1 [facility] Work Phone: Eosinophils/100 leukocytes 2.2 % Invalid Interpretation Code 0-5 [facility] Work Phone: Eosinophils/100 WBC (Bld) 2.2 % Invalid Interpretation Code 0-5 [facility] Work Phone: Erythrocyte distribution width (RBC) [Ratio] 13.1 % Invalid Interpretation Code 11.6-14.6 [facility] Work Phone: Hematocrit (Bld) [Volume fraction] 45.3 % Invalid Interpretation Code 37-47 [facility] Work Phone: Hemoglobin (Bld) [Mass/Vol] 15.1 g/dL High 12.0-15.0 [facility] Work Phone: Immature granulocytes/100 WBC (Bld) 0.100 % Invalid Interpretation Code 0.0-0.9 [facility] Work Phone: Lymphocytes 3.06 X10 3/UL Invalid Interpretation Code 0.83-4.51 [facility] Work Phone: Lymphocytes (Bld) [#/Vol] 3.06 X10 3/UL Invalid Interpretation Code 0.83-4.51 [facility] Work Phone: Lymphocytes/100 leukocytes 39.6 % Invalid Interpretation Code 19-41 [facility] Work Phone: Lymphocytes/100 WBC (Bld) 39.6 % Invalid Interpretation Code 19-41 [facility] Work Phone: MCH (RBC) [Entitic mass] 33.8 pg High 27.0-32.0 [facility] Work Phone: MCV (RBC) [Entitic vol] 101.3 fL High 81-99 [facility] Work Phone: mean corpuscular hemoglobin concentration, RBC 33.3 G/GL Invalid Interpretation Code 32-36 [facility] Work Phone: Monocytes/100 leukocytes 8.2 % Invalid Interpretation Code 0-10 [facility] Work Phone: Monocytes/100 WBC (Bld) 8.2 % Invalid Interpretation Code 0-10 [facility] Work Phone: neutrophil count, blood 3.8 X10 3/UL Invalid Interpretation Code 2.0-7.7 [facility] Work Phone: Neutrophils/100 WBC (Bld) 48.6 % Invalid Interpretation Code 47-70 [facility] Work Phone: Neutrophils/100 WBC Auto (Bld) 48.6 % Invalid Interpretation Code 47-70 [facility] Work Phone: Platelet mean volume (Bld) [Entitic vol] 9.7 fL Invalid Interpretation Code 6.2-12.0 [facility] Work Phone: Platelets (Bld) [#/Vol] 270 10*3/uL Invalid Interpretation Code 150-450 [facility] Work Phone: RBC (Bld) [#/Vol] 4.47 10*6/uL Invalid Interpretation Code 4.2-5.4 [facility] Work Phone: RDW SD 48.6 fL High 35.1-43.9 [facility] Work Phone: red blood cell distribution width, size density 48.6 fL High 35.1-43.9 [facility] Work Phone: WBC (Bld) [#/Vol] 7.7 10*3/uL Invalid Interpretation Code 4.4-11.0 [facility] Work Phone: Lab Report: Comprehensive Ne tabolic Profilon 07-04-2015 Albumin [Mass/Vol] 3.3 g/dL Low 3.4-5.0 [facility] Work Phone: Albumin/Globulin [Mass ratio] 0.7238287 {ratio} Invalid Interpretation Code 0.9-2.4 [facility] Work Phone: Albumin/Globulin Ratio 0.9 {ratio} Invalid Interpretation Code 0.9-2.4 [facility] Work Phone: ALT [Catalytic activity/Vol] 19 U/L Invalid Interpretation Code 12-78 [facility] Work Phone: Anion gap [Moles/Vol] 7 mmol/L Invalid Interpretation Code 5-15 [facility] Work Phone: AST [Catalytic activity/Vol] 12 U/L Low 15-37 [facility] Work Phone: Bilirubin [Mass/Vol] 0.30 mg/dL Invalid Interpretation Code 0.20-1.00 [facility] Work Phone: Chloride [Moles/Vol] 107 mmol/L Invalid Interpretation Code 98-107 [facility] Work Phone: CO2 (BldV) [Partial pressure] 27.0 mmol/L Invalid Interpretation Code 21.0-32.0 [facility] Work Phone: Creatinine [Mass/Vol] 0.85 mg/dL Invalid Interpretation Code 0.55-1.20 [facility] Work Phone: eGFR (non-black) 89 mL/min/{1.73_m2} Invalid Interpretation Code >60 [facility] Work Phone: GFR/1.73 sq M.predicted among non-blacks MDRD (S/P/Bld) [Vol rate/Area] 74 mL/min/{1.73_m2} Invalid Interpretation Code >60 [facility] Work Phone: Globulin 3.7 g/dL High 2.3-3.5 [facility] Work Phone: Globulin (S) [Mass/Vol] 3.7 g/dL High 2.3-3.5 [facility] Work Phone: Glomerular Filtration rate 89 mL/min Invalid Interpretation Code >60 [facility] Work Phone: Glucose [Mass/Vol] 94 mg/dL Invalid Interpretation Code 70-110 [facility] Work Phone: Potassium [Moles/Vol] 4.1 mmol/L Invalid Interpretation Code 3.5-5.1 [facility] Work Phone: Protein [Mass/Vol] 7.0 g/dL Invalid Interpretation Code 6.4-8.2 [facility] Work Phone: Sodium [Moles/Vol] 141 mmol/L Invalid Interpretation Code 136-145 [facility] Work Phone: Urea nitrogen [Mass/Vol] 14 mg/dL Invalid Interpretation Code 7-18 [facility] Work Phone: Urea nitrogen/Creatinine [Mass ratio] 16.9233273 mg/mg Invalid Interpretation Code 10-20 [facility] Work Phone: Lab Report: Folates, (Folic Acid)on 07-04-2015 Folate [Mass/Vol] 15.10 ng/mL Invalid Interpretation Code 3.1-17.5 [facility] Work Phone: Lab Report: Hemoglobin A1con 07-04-2015 HbA1c (Bld) [Mass fraction] 5.7 % Invalid Interpretation Code 4.2-6.3 [facility] Work Phone: Lab Report: Lipid Profileon 07-04-2015 Cholesterol [Mass/Vol] 275 mg/dL High 200 [facility] Work Phone: Cholesterol in HDL [Mass/Vol] 38 mg/dL Low [facility] Work Phone: Cholesterol in LDL [Mass/Vol] 190 mg/dL High 0-130 [facility] Work Phone: Lipoprotein.pre-beta [Mass/Vol] 47 mg/dL High 5-40 [facility] Work Phone: Triglyceride [Mass/Vol] 235 mg/dL High [facility] Work Phone: Lab Report: Partial Thrombop last Timeon 07-04-2015 aPTT Coag (Bld) [Time] 37.7 s High 24.1-36.2 [facility] Work Phone: Lab Report: Prothrombin Time w/INRon 07-04-2015 INR Coag (PPP) [Relative time] 0.9 {INR} Invalid Interpretation Code [facility] Work Phone: Prothrombin time (PT) Coag time (PPP) 12.1 s Invalid Interpretation Code 11.7-14.9 [facility] Work Phone: PT Coag (PPP) [Time] 12.458594769 s Invalid Interpretation Code 11.7-14.9 [facility] Work Phone: Lab Report: Thyroid Stim Hor chinmay (TSH)on 07-04-2015 TSH Qn 1.78 m[IU]/L Invalid Interpretation Code 0.358-3.74 [facility] Work Phone: Lab Report: Vitamin B12on Cobalamin (Vitamin B12) [Mass/Vol] 302 pg/mL Invalid Interpretation Code 211-911 [facility] Work Phone: Lab Report: Vitamin D,25 Hyd roxyon 07-04-2015 vitamin D 25-hydroxy, serum 59.8 ng/mL Invalid Interpretation Code [facility] Work Phone: Vitamin D 25-OH 59.8 ng/mL Invalid Interpretation Code [facility] Work Phone: Office Visit: [facility] 02-07-20 15 cardiac risk group C Invalid Interpretation Code [facility] Work Phone: General cardiovascular disease 10Y risk [#] [place].D'Agostino N/A Invalid Interpretation Code [facility] Work Phone: VITAMIN B12 AND FOLATES ([phone])Ordered By: Conference Center Manager on 10-11-2014 Cobalamin (Vitamin B12) [Mass/Vol] 338 pg/mL Normal 211-946 [facility]; [facility] Work Phone: Comment on above: PATIENT NOT FASTINGP ERFORMED BY: Skydeck70 MD Sy[facility] SolutionsNov[facility] [id number] Information: [id number] Folate [Mass/Vol] 13.7 ng/mL Normal Compreh ensive Internal Medicine; [facility] Work Phone: Comment on above: A serum folate vanita ntration of less than 3.1 ng/mL isconsidered to represent clinical deficiency. PATIENT NOT FASTINGP ERFORMED BY: Skydeck70 [place] [id number] Information: [id number] ([phone])Ordered By: [facility] [place] Manager on 10-02-2014 AFP.tumor marker [Mass/Vol] 3.3 ng/mL Normal 0.0-8.3 [facility]; [facility] Work Phone: Comment on above: Isak ECLIA methodol ogy PATIENT WAS FASTINGP ERFORMED BY: SHERLEY LabCoMeadowview Psychiatric HospitalRzjctm7865 [facility] [id number] Blood Glucose , Office ([phone])Ordered By: Janay Edwards on 10-02-2014 Glucose Glucometer (BldC) [Moles/Vol] 100 1 Normal [facility]; [facility] Work Phone: CBC with auto diff ([phone])Or dered By: Conference Center Manager on 10-02-2014 Basophils (Bld) [#/Vol] 0.1 10*3/uL Normal 0.0-0.2 [facility]; [facility] Work Phone: Comment on above: PATIENT WAS FASTINGP ERFORMED BY: LabHur[facility] Center6370 [facility] [id number] Information: [id number] Basophils/100 WBC (Bld) 1 % Normal C omprehensive Internal Medicine; [facility] Work Phone: Comment on above: PATIENT WAS FASTINGP ERFORMED BY: LabH[facility]ley [facility] Center6370 [facility] [id number] Information: [id number] Eosinophils (Bld) [#/Vol] 0.2 10*3/uL Normal 0.0-0.4 [facility]; [facility] Work Phone: Comment on above: PATIENT WAS FASTINGP ERFORMED BY: LabCo Smyoiy0574 [facility] [id number] Information: [id number] Eosinophils/100 WBC (Bld) 2 % Normal [facility]; [facility] Work Phone: Comment on above: PATIENT WAS FASTINGP ERFORMED BY: LabCo Jtytuk1514 [facility] [id number] Information: [id number] Erythrocyte distribution width (RBC) [Ratio] 13.5 % Normal 12.3-15.4 [facility]; [facility] Work Phone: Comment on above: PATIENT WAS FASTINGP ERFORMED BY: SHERLEY Shultz6370 [facility] [id number] Information: [id number] Hematocrit (Bld) [Volume fraction] 46.8 % Abnormal 34.0-46.6 [facility]; [facility] Work Phone: Comment on above: PATIENT WAS FASTINGP ERFORMED BY: [address] [id number] Information: [id number] Hemoglobin (Bld) [Mass/Vol] 15.6 g/dL Normal 11.1-15.9 [facility]; [facility] Work Phone: Comment on above: PATIENT WAS FASTINGP ERFORMED BY: Eric[address] [id number] Information: [id number] Immature granulocytes (Bld) [#/Vol] 0.0 10*3/uL Normal 0.0-0.1 [facility]; [facility] Work Phone: Comment on above: PATIENT WAS FASTINGP ERFORMED BY: SHERLEY Butcher U[address]ty[address] [id number] Information: [id number] Immature granulocytes/100 WBC (Bld) 0 % Normal [facility]; [facility] Work Phone: Comment on above: PATIENT WAS FASTINGP ERFORMED BY: [address] [id number] Information: [id number] Lymphocytes (Bld) [#/Vol] 3.2 10*3/uL Abnormal 0.7-3.1 [facility]; [facility] Work Phone: Comment on above: PATIENT WAS FASTINGP ERFORMED BY: [address] [id number] Information: [id number] Lymphocytes/100 WBC (Bld) 39 % Normal [facility]; [facility] Work Phone: Comment on above: PATIENT WAS FASTINGP ERFORMED BY: SHERLEY Shultz6370 [facility] [id number] Information: [id number] MCH (RBC) [Entitic mass] 33.3 pg Abnormal 26.6-33.0 [facility]; [facility] Work Phone: Comment on above: PATIENT WAS FASTINGP ERFORMED BY: [address] [id number] Information: [id number] MCHC (RBC) [Mass/Vol] 33.3 g/dL Normal 31.5-35.7 [facility] Internal [facility]; [facility] Work Phone: Comment on above: PATIENT WAS FASTINGP ERFORMED BY: SHERLEY [address] [id number] Information: [id number] MCV (RBC) [Entitic vol] 100 fL Abnormal 79-97 C ompuniversity hospitals beachwood medical centerensive Internal Medicine; [facility] Work Phone: Comment on above: PATIENT WAS FASTINGP ERFORMED BY: SHERLEY [address] [id number] Information: [id number] Monocytes (Bld) [#/Vol] 0.8 10*3/uL Normal 0.1-0.9 [facility]; [facility] Work Phone: Comment on above: PATIENT WAS FASTINGP ERFORMED BY: [facility]6370 [facility] [id number] Information: [id number] Monocytes/100 WBC (Bld) 10 % Normal C omprehensive Internal Medicine; [facility] Work Phone: Comment on above: PATIENT WAS FASTINGP ERFORMED BY: [place] 1028270 [facility] [id number] Information: [id number] Neutrophils (Bld) [#/Vol] 4.0 10*3/uL Normal 1.4-7.0 [facility]; [facility] Work Phone: Comment on above: PATIENT WAS FASTINGP ERFORMED BY: SHERLEY Clarence Shultz6370 [facility] [id number] Information: [id number] Neutrophils/100 WBC (Bld) 48 % Normal [facility]; [facility] Work Phone: Comment on above: PATIENT WAS FASTINGP ERFORMED BY: SHERLEY EricSaint [facility] Ukfrsd4568 [facility] [id number] Information: [id number] Platelets (Bld) [#/Vol] 268 10*3/uL Normal 150-379 [facility]; [facility] Work Phone: Comment on above: PATIENT WAS FASTINGP ERFORMED BY: SHERLEY Hadley Xmkxpy2232 [facility] [id number] Information: [id number] RBC (Bld) [#/Vol] 4.69 10*6/uL Normal 3.77-5.28 Compr ehensive Internal Medicine; [facility] Work Phone: Comment on above: PATIENT WAS FASTINGP ERFORMED BY: SHERLEY Hadley Bjvfht9453 [facility] [id number] Information: [id number] WBC (Bld) [#/Vol] 8.2 10*3/uL Normal 3.4-10.8 Compre [facility] Internal Medicine; [facility] Work Phone: Comment on above: PATIENT WAS FASTINGP ERFORMED BY: SHERLEY LabCo Foxpbn8615 [facility] [id number] Information: [id number] HgA1C , Office ([phone])Caitlyne d By: Janay Edwards on 10-02-2014 HbA1c (Bld) [Mass fraction] 5.9 % Normal 4.6 - 7.1 [facility]; [facility] Work Phone: LIPID PANEL ([phone])Ordered B y: Conference Center Manager on 10-02-2014 Cholesterol [Mass/Vol] 261 mg/dL Abnormal 100-199 Co mprehensive Internal Medicine; [facility] Work Phone: Comment on above: PATIENT WAS FASTINGP ERFORMED BY: CB [facility] Oycvhj1305 [address]icas RoadDublin [place] [id number] Cholesterol in HDL [Mass/Vol] 37 mg/dL Abnormal [facility]; [facility] Work Phone: Comment on above: According to ATP-III Guidelines, HDL-C >59 mg/dL is considered anegative risk factor for CHD. PATIENT WAS FASTINGP ERFORMED BY: CB [facility] Dacmln2509 [address] UsetraceDublin [place] [id number] Cholesterol in LDL [Mass/Vol] 187 mg/dL Abnormal 0-99 [facility]; [facility] Work Phone: Comment on above: PATIENT WAS FASTINGP ERFORMED BY: CB [facility] Qbhgsf0148 [address] UsetraceDublin [place] [id number] Cholesterol in LDL/Cholesterol in HDL [Mass ratio] 5.1 {ratio_units} Abnormal 0.0-3.2 [facility]; [facility] Work Phone: Comment on above: LDL/HDL Ratio Men Wo men 1/2 Avg.Risk 1.0 1.5 Avg.Risk 3.6 3.2 2X Avg.Risk 6.2 5.0 3X Avg.Risk 8.0 6.1 PATIENT WAS FASTINGP ERFORMED BY: CB [facility] Yjjnnb4056 [address] UsetraceDublin [place] [id number] Cholesterol in VLDL [Mass/Vol] 37 mg/dL Normal 5-40 [facility]; [facility] Work Phone: Comment on above: PATIENT WAS FASTINGP ERFORMED BY: CB [facility] Tgomqb4338 [address] RoadDublin [place] [id number] Triglyceride [Mass/Vol] 185 mg/dL Abnormal 0-149 C omprehensive Internal Medicine; [facility] Work Phone: Comment on above: PATIENT WAS FASTINGP ERFORMED BY: CB [facility] Zqaiqu2996 Chicas RoadDublin [place] [id number] METABOLIC PANEL, COMPREHENSI VE ([id number])Ordered By: Conference Center Manager on 10-02-2014 Albumin [Mass/Vol] 4.2 g/dL Normal 3.5-5.5 [facility] Internal Medicine; [facility] Work Phone: Comment on above: PATIENT WAS FASTINGP ERFORMED BY: CB [facility] Jraheq6828 Ch[address] RoadDublin [place] [id number] Albumin/Globulin [Mass ratio] 1.9 {ratio} Normal 1.1-2.5 [facility]; [facility] Work Phone: Comment on above: PATIENT WAS FASTINGP ERFORMED BY: CB [facility] Ywmrzl2214 [address] RoadDublin [place] [id number] ALP [Catalytic activity/Vol] 116 U/L Normal 39-117 [facility]; [facility] Work Phone: Comment on above: PATIENT WAS FASTINGP ERFORMED BY: CB [facility] Ylguas1821 [address] RoadDublin [place] [id number] ALT [Catalytic activity/Vol] 11 U/L Normal 0-32 [facility]; [facility] Work Phone: Comment on above: PATIENT WAS FASTINGP ERFORMED BY: CB [facility] Ljxydn4709 [address] RoadDublin [place] [id number] AST [Catalytic activity/Vol] 13 U/L Normal 0-40 [facility]; [facility] Work Phone: Comment on above: PATIENT WAS FASTINGP ERFORMED BY: CB [facility] Aqhixk0428 [address] RoadDublin [place] [id number] Bilirubin [Mass/Vol] 0.4 mg/dL Normal 0.0-1.2 [facility]; [facility] Work Phone: Comment on above: PATIENT WAS FASTINGP ERFORMED BY: CB [facility] Mdefcv0113 [address] RoadDublin [place] [id number] Calcium [Mass/Vol] 9.6 mg/dL Normal 8.7-10.2 [facility]; [facility] Work Phone: Comment on above: PATIENT WAS FASTINGP ERFORMED BY: CB [facility] Ujlcic5663 [address] RoadDublin [place] [id number] Chloride [Moles/Vol] 103 mmol/L Normal 97-108 Comp rehensive Internal Medicine; [facility] Work Phone: Comment on above: PATIENT WAS FASTINGP ERFORMED BY: CB [facility] Tpxnxb6735 [address] RoadDublin [place] [id number] CO2 [Moles/Vol] 23 mmol/L Normal 18-29 [facility]; [facility] Work Phone: Comment on above: PATIENT WAS FASTINGP ERFORMED BY: CB [facility] Pgxyxd5184 Ch[address] RoadDuin [place] [id number] Creatinine [Mass/Vol] 0.89 mg/dL Normal 0.57-1.00 [facility] prehensive Internal Medicine; [facility] Work Phone: Comment on above: PATIENT WAS FASTINGP ERFORMED BY: CB [facility] Mxeerh1809 [address] RoadDublin [place] [id number] GFR/1.73 sq M.predicted among blacks CKD-EPI (S/P/Bld) [Vol rate/Area] 84 mL/min/1.73 Normal [facility]; [facility] Work Phone: Comment on above: PATIENT WAS FASTINGP ERFORMED BY: CB [facility] Sphqqg1374 [address] RoadDuin [place] [id number] GFR/1.73 sq M.predicted among non-blacks CKD-EPI (S/P/Bld) [Vol rate/Area] 73 mL/min/1.73 Normal [facility]; [facility] Work Phone: Comment on above: PATIENT WAS FASTINGP ERFORMED BY: CB [facility] Ticvdj7605 [address]Dublin [place] [id number] Globulin (S) [Mass/Vol] 2.2 g/dL Normal 1.5-4.5 C omprehensive [facility]; [facility] Work Phone: Comment on above: PATIENT WAS FASTINGP ERFORMED BY: SHERLEY [facility] Ijryqo6577 [address] RoadDublin [place] [id number] Glucose [Mass/Vol] 94 mg/dL Normal 65-99 [facility]; [facility] Work Phone: Comment on above: PATIENT WAS FASTINGP ERFORMED BY: CB [facility] Lxskav4826 [address]Dublin [place] [id number] Potassium [Moles/Vol] 5.0 mmol/L Normal 3.5-5.2 [facility]; [facility] Work Phone: Comment on above: PATIENT WAS FASTINGP ERFORMED BY: CB [facility] Bvxlcm2462 [address]Dublin [place] [id number] Protein [Mass/Vol] 6.4 g/dL Normal 6.0-8.5 [facility]; [facility] Work Phone: Comment on above: PATIENT WAS FASTINGP ERFORMED BY: CB [facility] Iypxht1776 [address]Dublin [place] [id number] Sodium [Moles/Vol] 140 mmol/L Normal 134-144 [facility]; [facility] Work Phone: Comment on above: PATIENT WAS FASTINGP ERFORMED BY: CB [facility] Drgqdx6233 [address]Dublin [place] [id number] Urea nitrogen [Mass/Vol] 12 mg/dL Normal 6-24 [facility]; [facility] Work Phone: Comment on above: PATIENT WAS FASTINGP ERFORMED BY: CB [facility] Cjbtcu2386 [address]Dublin [place] [id number] Urea nitrogen/Creatinine [Mass ratio] 13 mg/mg Normal 9-23 [facility]; [facility] Work Phone: Comment on above: PATIENT WAS FASTINGP ERFORMED BY: CB [facility] Yvllji4435 [address]Dublin [place] [id number] MICROALBUMINOrdered By: Syst em Chief Console Operator on 10-02-2014 Albumin DL <= 20 mg/L (U) [Mass/Vol] 3.4 ug/mL Normal 0.0-17.0 [facility]; [facility] Work Phone: Comment on above: PATIENT WAS FASTINGP ERFORMED BY: SHERLEY Butcher Gsaelx2394 [facility] [id number] Albumin/Creatinine (U) [Mass ratio] 4.3 {mg/g_creat} Normal 0.0-30.0 [facility]; [facility] Work Phone: Comment on above: PATIENT WAS FASTINGP ERFORMED BY: [facility] Urdhsh8649 [facility] [id number] Creatinine (U) [Mass/Vol] 78.3 mg/dL Normal 15.0-278.0 [facility]; [facility] Work Phone: Comment on above: PATIENT WAS FASTINGP ERFORMED BY: [facility]Saint [facility] Icbniz1665 [facility] [id number] PT (Prothrobim Time) ([id number]) Ordered By: Conference Center Manager on 10-02-2014 INR Coag (PPP) [Relative time] 1.0 {INR} Normal 0.8-1.2 [facility]; [facility] Work Phone: Comment on above: Reference interval i s for non-anticoagulated patients. . Suggested INR therapeutic range for Vitamin K antagonist therapy: Standard Dose (moderate intensity therapeutic range): 2.0 - 3.0 Higher intensity therapeutic range 2.5 - 3.5 PATIENT WAS FASTINGP ERFORMED BY: [facility] Ukouxw4316 [facility] [id number] PT Coag (PPP) [Time] 10.3 s Normal 9.1-12.0 [facility]; [facility] Work Phone: Comment on above: PATIENT WAS FASTINGP ERFORMED BY: [facility] Ngrgeq2323 [facility] [id number] PTT (Activated Partial Throm boplastin Time) ([id number])Ordered By: Conference Center Manager on 10-02-2014 aPTT Coag (PPP) [Time] 33 s Normal 24-33 Co mprehensive [facility]; [facility] Work Phone: Comment on above: This test has not be en validated for monitoring unfractionated heparintherapy. aPTT-based therapeutic ranges for unfractionated heparintherapy have not been established. For general guidelines onHeparin monitoring, refer to the [facility]Saint [facility] Directory of Services. PATIENT WAS FASTINGP ERFORMED BY: [facility] [place] [id number] TSH ([id number])Ordered By: [employer] m Chief Console Operator on 10-02-2014 TSH Qn 2.210 {uIU/mL} Normal 0.450-4.500 Comprehen sive [facility]; [facility] Work Phone: Comment on above: PATIENT WAS FASTINGP ERFORMED BY: [facility] [place] [id number] URINALYSIS, W/ MICRO ([id number]) Ordered By: Conference Center Manager on 10-02-2014 Appearance (U) Clear Normal Comprehens brian [facility]; [facility] Work Phone: Comment on above: PATIENT WAS FASTINGP ERFORMED BY: [facility] [place] [id number] Bilirubin Ql (U) Negative Normal Comprehe nsive [facility] Medicine; [facility] Work Phone: Comment on above: PATIENT WAS FASTINGP ERFORMED BY: [facility] [place] [id number] Color (U) Yellow Normal [facility]; [facility] Work Phone: Comment on above: PATIENT WAS FASTINGP ERFORMED BY: MyRefersExcelsior Springs Medical CenterKgctax1307 [address] RoadDublin [place] [id number] Glucose Ql (U) Negative Normal Comprehens brian [facility]; [facility] Work Phone: Comment on above: PATIENT WAS FASTINGP ERFORMED BY: [facility] Centerlin6[address]Dublin [place] [id number] Hemoglobin Ql (U) Negative Normal Compreh ensive [facility]; [facility] Work Phone: Comment on above: PATIENT WAS FASTINGP ERFORMED BY: SHERLEY Staufferlin6370 [address]Dublin [place] [id number] Ketones Ql (U) Negative Normal Comprehens brian [facility]; [facility] Work Phone: Comment on above: PATIENT WAS FASTINGP ERFORMED BY: SHERLEY Shultz6370 [address]Dublin [place] [id number] Leukocyte esterase Test strip Ql (U) 1+ Abnormal [facility]; [facility] Work Phone: Comment on above: PATIENT WAS FASTINGP ERFORMED BY: SHERLEY Staufferlin6370 [address]Dublin [place] [id number] Microscopic observation LM Nom (Urine sed) See below: Normal [facility]; [facility] Work Phone: Comment on above: Microscopic was mesfin cated and was performed. PATIENT WAS FASTINGP ERFORMED BY: SHERLEY Staufferlin6370 [address]Dublin [place] [id number] Nitrite Ql (U) Negative Normal Comprehens brian [facility]; [facility] Work Phone: Comment on above: PATIENT WAS FASTINGP ERFORMED BY: SHERLEY Staufferlin6370 [address] [place] [id number] pH (U) 7.5 [pH] Normal 5.0-7.5 [facility]; [facility] Work Phone: Comment on above: PATIENT WAS FASTINGP ERFORMED BY: SHERLEY Staufferlin6370 [address]Dublin [place] [id number] Protein Ql (U) Negative Normal Comprehens brian [facility]; [facility] Work Phone: Comment on above: PATIENT WAS FASTINGP ERFORMED BY: SHERLEY Staufferlin6370 [address]Dublin [place] [id number] Specific gravity (U) [Rel density] 1.016 1 Normal 1.005-1.030 [facility]; [facility] Work Phone: Comment on above: PATIENT WAS FASTINGP ERFORMED BY: SHERLEY LabPolo StaufferZxetrz4039 Ch[address] RoadDublin [place] [id number] Urobilinogen (U) [Mass/Vol] 0.2 mg/dL Normal 0.0-1.9 [facility]; [facility] Work Phone: Comment on above: PATIENT WAS FASTINGP ERFORMED BY: LabCoMeadowview Psychiatric HospitalQeztjc9978 [facility] [id number] Vitamin D Hydroxy ([id number])Ord ered By: Conference Center Manager on 10-02-2014 25-hydroxyvitamin D [Mass/Vol] 13.6 ng/mL Abnormal 30.0-100.0 [facility]; [facility] Work Phone: Comment on above: Vitamin D deficiency has been defined by the [place] of[place]icine and an Endocrine Society practice guideline as alevel of serum 25-OH vitamin D less than 20 ng/mL (1,2).The Endocrine Society went on to further define vitamin Dinsufficiency as a level between 21 and 29 ng/mL (2).1. IOM ([place] of Medicine). 2010. Dietary reference intakes for calcium and D. [place]: The National Academies Press.2. Feng MF, Yumiko ATKINSON, Juan MCCARTHY, et al. Evaluation, treatment, and prevention of vitamin D deficiency: an Endocrine Society clinical practice guideline. JCEM. 2010; 96(7):1911-30. PATIENT WAS FASTINGP ERFORMED BY: Mission Critical ElectronicsMeadowview Psychiatric HospitalCxtfgr1752 [facility] [id number] Blood Glucose , Office ([phone])Ordered By: Edith Govea on 07-28-2012 Glucose Glucometer (BldC) [Moles/Vol] 127 1 Normal [facility]; [facility] Work Phone: HgA1C , Office ([phone])Ordere d By: Nerissa Rodriguez on 07-28-2012 HbA1c (Bld) [Mass fraction] 6.0 % Normal 4.6 - 7.1 [facility]; [facility] Work Phone: Blood Glucose , Office ([phone])Ordered By: Janay Edwards on 03-25-2012 Glucose Glucometer (BldC) [Moles/Vol] 151 1 Normal [facility]; [facility] Work Phone: HgA1C , Office ([phone])Ordere d By: Janay Edwards on 03-25-2012 HbA1c (Bld) [Mass fraction] 6.0 % Normal 4.6 - 7.1 [facility]; [facility] Work Phone: Blood Glucose , Office ([phone])Ordered By: Janay Edwards on 11-19-2011 Glucose Glucometer (BldC) [Moles/Vol] 141 1 Normal [facility]; [facility] Work Phone: HgA1C , Office ([phone])Ordere d By: Janay Edwards on 11-19-2011 HbA1c (Bld) [Mass fraction] 5.7 % Normal 4.6 - 7.1 [facility]; [facility] Work Phone: Urinalysis, Office ([phone])Or dered By: Edith Govea on 09-09-2010 Bilirubin [...] Bacteria identified Cx Nom (U) Escherichia coli [facility] Work Phone: Vital Signs Date Time Vital Sign Value Performing Clinician Facility 05-01-2025 15:39-0400 Body height 170.[address] Martin Gutierrez MD Work Phone: 5(225)564-988495 [place] [address] 05-01-2025 15:39-0400 Body mass index (BMI) [Ratio] 29 kg/m2 Dr. Martin Gutierrez MD Work Phone: 4(547)392-638266 [place] [address] 05-01-2025 15:39-0400 Body temperature 98.2 [degF] Dr. Martin Gutierrez MD Work Phone: 2(685)841-978066 [place] [address] 05-01-2025 15:39-0400 Body weight 83.[address] Martin Gutierrez MD Work Phone: 0(020)385-920166 [place] [address] 05-01-2025 15:39-0400 Diastolic blood pressure 74 mm[Hg] Dr. Martin Gutierrez MD Work Phone: 5(761)125-196766 [place] [address] 05-01-2025 15:39-0400 Heart rate 71 /min Dr. Martin Gutierrez MD Work Phone: 3(557)600-608466 [place] [address] 05-01-2025 15:39-0400 Respiratory rate 18 /min Dr. Martin Gutierrez MD Work Phone: 3(607)512-209166 [place] [address] 05-01-2025 15:39-0400 SaO2% (BldA) [Mass fraction] 96 % Dr. Martin Gutierrez MD Work Phone: 2(029)124-152766 [place] [address] 05-01-2025 15:39-0400 Systolic blood pressure 145 mm[Hg] Dr. Martin Gutierrez MD Work Phone: 2(216)665-851695 [place] [address] 10-04-2024 10:55-0500 Body height 170.[address] Martin Gutierrez MD Work Phone: 3(163)321-071766 [place] [address] 10-04-2024 10:55-0500 Body mass index (BMI) [Ratio] 28.2 kg/m2 Dr. Martin Gutierrez MD Work Phone: 0(159)941-298495 [place] [address] 10-04-2024 10:55-0500 Body temperature 97.8 [degF] Dr. Martin Gutierrez MD Work Phone: 9(372)620-399666 [place] [address] 10-04-2024 10:55-0500 Body weight 81.[address] Martin Gutierrez MD Work Phone: 7(706)578-517695 [place] [address] 10-04-2024 10:55-0500 Diastolic blood pressure 74 mm[Hg] Dr. Martin Gutierrez MD Work Phone: 1(005)395-400395 [place] [address] 10-04-2024 10:55-0500 Heart rate 76 /min Dr. Martin Gutierrez MD Work Phone: 9(193)863-408466 [place] [address] 10-04-2024 10:55-0500 Respiratory rate 18 /min Dr. Martin Gutierrez MD Work Phone: 3(929)717-571766 [place] [address] 10-04-2024 10:55-0500 SaO2% (BldA) [Mass fraction] 95 % Dr. Martin Gutierrez MD Work Phone: 2(029)643-573166 [place] [address] 10-04-2024 10:55-0500 Systolic blood pressure 123 mm[Hg] Dr. Martin Gutierrez MD Work Phone: 5(537)068-809966 [place] [address] 09-28-2024 11:57-0500 Body temperature 97.9 [degF] Dr. Martin Gutierrez MD Work Phone: 6(816)792-562866 [place] [address] 09-28-2024 11:57-0500 Diastolic blood pressure 61 mm[Hg] Dr. Martin Gutierrez MD Work Phone: 5(865)658-166166 [place] [address] 09-28-2024 11:57-0500 Heart rate 80 /min Dr. Martin Gutierrez MD Work Phone: 8(538)488-307295 [place] [address] 09-28-2024 11:57-0500 Respiratory rate 20 /min Dr. Martin Gutierrez MD Work Phone: 4(999)642-170195 [place] [address] 09-28-2024 11:57-0500 SaO2% (BldA) [Mass fraction] 93 % Dr. Martin Gutierrez MD Work Phone: 7(557)183-323895 [place] [address] 09-28-2024 11:57-0500 Systolic blood pressure 131 mm[Hg] Dr. Martin Gutierrez MD Work Phone: 0(524)795-366295 [place] [address] 09-28-2024 09:17-0500 Inhaled oxygen flow rate 3 L/min Dr. Martin Gutierrez MD Work Phone: 2(434)973-538795 [place] [address] 09-28-2024 04:03-0500 Body mass index (BMI) [Ratio] 28.4 kg/m2 Dr. Martin Gutierrez MD Work Phone: 7(621)843-742095 [place] [address] 09-28-2024 04:03-0500 Body weight 82.[address] Martin Gutierrez MD Work Phone: 6(910)998-592395 [place] [address] 01-13-2024 14:58-0400 Body temperature 97.2 [degF] Dr. Martin Gutierrez MD Work Phone: 9(710)985-608095 [place] [address] 01-13-2024 14:58-0400 Diastolic blood pressure 54 mm[Hg] Dr. Martin Gutierrez MD Work Phone: 3(802)359-561695 [place] [address] 01-13-2024 14:58-0400 Heart rate 69 /min Dr. Martin Gutierrez MD Work Phone: 2(127)057-629095 [place] [address] 01-13-2024 14:58-0400 Respiratory rate 16 /min Dr. Martin Gutierrez MD Work Phone: 0(636)966-391995 [place] [address] 01-13-2024 14:58-0400 SaO2% (BldA) [Mass fraction] 94 % Dr. Martin Gutierrez MD Work Phone: 7(564)480-609495 [place] [address] 01-13-2024 14:58-0400 Systolic blood pressure 116 mm[Hg] Dr. Martin Gutierrez MD Work Phone: 7(165)546-386295 [place] [address] 01-13-2024 13:19-0400 Body mass index (BMI) [Ratio] 30.8 kg/m2 Dr. Martin Gutierrez MD Work Phone: 6(231)771-600795 [place] [address] 09-30-2023 13:26-0500 Body height 167.[address] Martin Gutierrez Work Phone: 6(700)137-516995 [place] [address] 09-30-2023 13:26-0500 Body mass index (BMI) [Ratio] 30.4 kg/m2 Dr. Martin Gutierrez Work Phone: 9(996)188-814695 [place] [address] 09-30-2023 13:26-0500 Body temperature 98.6 [degF] Dr. Martin Gutierrez Work Phone: 6(442)395-855895 [place] [address] 09-30-2023 13:26-0500 Body weight 85.[address] Martin Gutierrez Work Phone: 3(072)844-288495 [place] [address] 09-30-2023 13:26-0500 Diastolic blood pressure 72 mm[Hg] Dr. Martin Gutierrez Work Phone: 7(547)896-285995 [place] [address] 09-30-2023 13:26-0500 Heart rate 71 /min Dr. Martin Gutierrez Work Phone: 9(511)410-522066 [place] [address] 09-30-2023 13:26-0500 Respiratory rate 18 /min Dr. Martin Gutierrez Work Phone: 1(166)923-474966 [place] [address] 09-30-2023 13:26-0500 SaO2% (BldA) [Mass fraction] 96 % Dr. Martin Gutierrez Work Phone: 3(574)181-566495 [place] [address] 09-30-2023 13:26-0500 Systolic blood pressure 126 mm[Hg] Dr. Martin Gutierrez Work Phone: 4(185)632-926366 [place] [address] 04-15-2023 11:03-0400 Body height 167.[address] Martin Gutierrez Work Phone: 9(724)410-564566 [place] [address] 04-15-2023 11:01-0400 Body mass index (BMI) [Ratio] 31.6 kg/m2 Dr. Martin Gutierrez Work Phone: 4(500)432-806195 [place] [address] 04-15-2023 11:01-0400 Body temperature 98.5 [degF] Dr. Martin Gutierrez Work Phone: 5(258)228-555695 [place] [address] 04-15-2023 11:01-0400 Body weight 89.[address] Martin Gutierrez Work Phone: 0(446)165-948795 [place] [address] 04-15-2023 11:01-0400 Diastolic blood pressure 75 mm[Hg] Dr. Martin Gutierrez Work Phone: 7(164)560-316395 [place] [address] 04-15-2023 11:01-0400 Heart rate 70 /min Dr. Martin Gutierrez Work Phone: [facility] 04-15-2023 11:01-0400 Respiratory rate 16 /min Dr. Martin Gutierrez Work Phone: 9(033)913-127695 [place] [address] 04-15-2023 11:01-0400 SaO2% (BldA) [Mass fraction] 96 % Dr. Martin Gutierrez Work Phone: 9(582)768-749795 [place] [address] 04-15-2023 11:01-0400 Systolic blood pressure 172 mm[Hg] Dr. Martin Gutierrez Work Phone: 0(436)205-511195 [place] [address] 10-20-2022 07:46-0500 Body height 167.[address] Martin Gutierrez Work Phone: 2(797)192-544166 [place] [address] 10-20-2022 07:46-0500 Body mass index (BMI) [Ratio] 32.4 kg/m2 Dr. Martin Gutierrez Work Phone: 1(272)466-051966 [place] [address] 10-20-2022 07:46-0500 Body temperature 98.2 [degF] Dr. Martin Gutierrez Work Phone: 7(348)499-893866 [place] [address] 10-20-2022 07:46-0500 Body weight 91.[address] Martin Gutierrez Work Phone: 7(826)530-319766 [place] [address] 10-20-2022 07:46-0500 Diastolic blood pressure 75 mm[Hg] Dr. Martin Gutierrez Work Phone: 7(315)735-927066 [place] [address] 10-20-2022 07:46-0500 Heart rate 80 /min Dr. Martin Gutierrez Work Phone: 1(337)132-864166 [place] [address] 10-20-2022 07:46-0500 Respiratory rate 20 /min Dr. Martin Gutierrez Work Phone: 5(500)361-231466 [place] [address] 10-20-2022 07:46-0500 SaO2% (BldA) [Mass fraction] 95 % Dr. Martin Gutierrez Work Phone: 1(892)956-429466 [place] [address] 10-20-2022 07:46-0500 Systolic blood pressure 170 mm[Hg] Dr. Martin Gutierrez Work Phone: 0(873)176-707695 [place] [address] 09-02-2022 13:21-0500 Body mass index (BMI) [Ratio] 31.5 kg/m2 Dr. Martin Gutierrez Work Phone: [facility] 09-02-2022 13:21-0500 Body temperature 97.9 [degF] Dr. Martin Gutierrez Work Phone: [facility] 09-02-2022 13:21-0500 Body weight 88.[address] Martin Gutierrez Work Phone: [facility] 09-02-2022 13:21-0500 Diastolic blood pressure 68 mm[Hg] Dr. Martin Gutierrez Work Phone: 7(269)518-537795 [place] [address] 09-02-2022 13:21-0500 Heart rate 72 /min Dr. Martin Gutierrez Work Phone: 2(358)799-003395 [place] [address] 09-02-2022 13:21-0500 Respiratory rate 16 /min Dr. Martin Gutierrez Work Phone: [facility] 09-02-2022 13:21-0500 SaO2% (BldA) [Mass fraction] 94 % Dr. Martin Gutierrez Work Phone: [facility] 09-02-2022 13:21-0500 Systolic blood pressure 133 mm[Hg] Dr. Martin Gutierrez Work Phone: [facility] 02-19-2022 14:08-0400 Body height 167.[address] Martin Gutierrez Work Phone: [facility] Work Phone: 02-19-2022 14:04-0400 Body mass index (BMI) [Ratio] 32 kg/m2 Dr. Martin Gutierrez Work Phone: [facility] Work Phone: 02-19-2022 14:04-0400 Body temperature 97.8 [degF] Dr. Martin Gutierrez Work Phone: [facility] Work Phone: 02-19-2022 14:04-0400 Body weight 90.[address] Martin Gutierrez Work Phone: [facility] Work Phone: 02-19-2022 14:04-0400 Diastolic blood pressure 75 mm[Hg] Dr. Martin Gutierrez Work Phone: [facility] Work Phone: 02-19-2022 14:04-0400 Heart rate 81 /min Dr. Martin Gutierrez Work Phone: [facility] Work Phone: 02-19-2022 14:04-0400 Respiratory rate 15 /min Dr. Martin Gutierrez Work Phone: [facility] Work Phone: 02-19-2022 14:04-0400 SaO2% (BldA) [Mass fraction] 91 % Dr. Martin Gutierrez Work Phone: [facility] Work Phone: 02-19-2022 14:04-0400 Systolic blood pressure 132 mm[Hg] Dr. Martin Gutierrez Work Phone: [facility] Work Phone: 11-06-2021 14:44-0400 Body height 167.[address] Martin Gutierrez Work Phone: [facility] Work Phone: 11-06-2021 14:44-0400 Body mass index (BMI) [Ratio] 32.8 kg/m2 Dr. Martin Gutierrez Work Phone: [facility] Work Phone: 11-06-2021 14:44-0400 Body temperature 98.6 [degF] Dr. Martin Gutierrez Work Phone: [facility] Work Phone: 11-06-2021 14:44-0400 Body weight 92.[address] Martin Gutierrez Work Phone: [facility] Work Phone: 11-06-2021 14:44-0400 Diastolic blood pressure 63 mm[Hg] Dr. Martin Gutierrez Work Phone: [facility] Work Phone: 11-06-2021 14:44-0400 Heart rate 73 /min Dr. Martin Gutierrez Work Phone: [facility] Work Phone: 11-06-2021 14:44-0400 Respiratory rate 14 /min Dr. Martin Gutierrez Work Phone: [facility] Work Phone: 11-06-2021 14:44-0400 SaO2% (BldA) [Mass fraction] 95 % Dr. Martin Gutierrez Work Phone: [facility] Work Phone: 11-06-2021 14:44-0400 Systolic blood pressure 105 mm[Hg] Dr. Martin Gutierrez Work Phone: [facility] Work Phone: 10-10-2021 14:52-0500 Diastolic blood pressure 49 mm[Hg] Dr. Martin Gutierrez Work Phone: [facility] 10-10-2021 14:52-0500 Heart rate 68 /min Dr. Martin Gutierrez Work Phone: [facility] 10-10-2021 14:52-0500 Respiratory rate 16 /min Dr. Martin Gutierrez Work Phone: [facility] 10-10-2021 14:52-0500 SaO2% (BldA) [Mass fraction] 97 % Dr. Martin Gutierrez Work Phone: [facility] 10-10-2021 14:52-0500 Systolic blood pressure 119 mm[Hg] Dr. Martin Gutierrez Work Phone: [facility] 10-10-2021 13:52-0500 Diastolic blood pressure 49 mm[Hg] Dr. Martin Gutierrez Work Phone: [facility] Work Phone: 10-10-2021 13:52-0500 Heart rate 68 /min Dr. Martin Gutierrez Work Phone: [facility] Work Phone: 10-10-2021 13:52-0500 Respiratory rate 16 /min Dr. Martin Gutierrez Work Phone: [facility] Work Phone: 10-10-2021 13:52-0500 SaO2% (BldA) [Mass fraction] 97 % Dr. Martin Gutierrez Work Phone: [facility] Work Phone: 10-10-2021 13:52-0500 Systolic blood pressure 119 mm[Hg] Dr. Martin Gutierrez Work Phone: [facility] Work Phone: 10-10-2021 12:56-0500 Body mass index (BMI) [Ratio] 33 kg/m2 Dr. Martin Gutierrez Work Phone: [facility] 10-10-2021 12:56-0500 Body temperature 98 [degF] Dr. Martin Gutierrez Work Phone: [facility] 10-10-2021 12:56-0500 Body weight 92.[address] Martin Gutierrez Work Phone: [facility] 10-10-2021 11:56-0500 Body mass index (BMI) [Ratio] 33 kg/m2 Dr. Martin Gutierrez Work Phone: [facility] [facility] Work Phone: 10-10-2021 11:56-0500 Body temperature 98 [degF] Dr. Martin Gutierrez Work Phone: [facility] Work Phone: 10-10-2021 11:56-0500 Body weight 92.[address] Martin Gutierrez Work Phone: [facility] Work Phone: 09-17-2021 12:12-0500 Body mass index (BMI) [Ratio] 33.3 kg/m2 Dr. Martin Gutierrez Work Phone: [facility] Work Phone: 09-17-2021 12:12-0500 Body temperature 98 [degF] Dr. Martin Gutierrez Work Phone: [facility] Work Phone: 09-17-2021 12:12-0500 Body weight 93.[address] Martin Gutierrez Work Phone: [facility] Work Phone: 09-17-2021 12:12-0500 Diastolic blood pressure 74 mm[Hg] Dr. Martin Gutierrez Work Phone: [facility] Work Phone: 09-17-2021 12:12-0500 Heart rate 73 /min Dr. Martin Gutierrez Work Phone: [facility] Work Phone: 09-17-2021 12:12-0500 Respiratory rate 16 /min Dr. Martin Gutierrez Work Phone: [facility] Work Phone: 09-17-2021 12:12-0500 SaO2% (BldA) [Mass fraction] 98 % Dr. Martin Gutierrez Work Phone: [facility] Work Phone: 09-17-2021 12:12-0500 Systolic blood pressure 131 mm[Hg] Dr. Martin Gutierrez Work Phone: [facility] Work Phone: 01-15-2017 11:10-0400 Body height 170.18 cm Janene Vallecillo Work Phone: [facility] Work Phone: 01-15-2017 11:10-0400 Body mass index (BMI) [Ratio] 41.41 kg/m2 Janene Vallecillo Work Phone: [facility] Work Phone: 01-15-2017 11:10-0400 Body weight 119.93 kg Janene Vallecillo Work Phone: [facility] Work Phone: 01-15-2017 11:10-0400 Diastolic blood pressure 88 mm[Hg] Janene Vallecillo Work Phone: [facility] Work Phone: 01-15-2017 11:10-0400 Heart rate 64 /min Janene Vallecillo Work Phone: [facility] Work Phone: 01-15-2017 11:10-0400 Respiratory rate 20 /min Janene Vallecillo Work Phone: [facility] Work Phone: 01-15-2017 11:10-0400 Systolic blood pressure 160 mm[Hg] Janene Vallecillo Work Phone: [facility] Work Phone: 01-15-2017 11:10-0400 Weight 119.93 kg Mena Holman RN [facility] Work Phone: 07-15-2016 08:19-0500 Body mass index (BMI) [Ratio] 37.59 kg/m2 Tali Parikh Work Phone: [facility] Work Phone: 07-15-2016 08:19-0500 Body surface area Derived from formula 2.19 m2 Tali Parikh Work Phone: [facility] Work Phone: 07-15-2016 08:19-0500 Body weight 108.86 kg Tali Parikh Work Phone: [facility] Work Phone: 07-15-2016 08:19-0500 Diastolic blood pressure 72 mm[Hg] Tali Parikh Work Phone: [facility] Work Phone: 07-15-2016 08:19-0500 Heart rate 56 /min Tali Parikh Work Phone: [facility] Work Phone: 07-15-2016 08:19-0500 Respiratory rate 18 /min Tali Parikh Work Phone: [facility] Work Phone: 07-15-2016 08:19-0500 Systolic blood pressure 132 mm[Hg] Tali Parikh Work Phone: [facility] Work Phone: [...] height 170.18 cm Tali Parikh Work Phone: [facility] Work Phone: [...] 11:15-0500 Body weight 129.28 kg Lisa Rosenbaum [facility] Work Phone: 10-28-2013 11:15-0500 Diastolic blood pressure 92 mm[Hg] Lisa Rosenbaum CMA [facility] Work Phone: Comment on above: Patient Position: Sitting; Cuff Location : Left Arm; Cuff Size: Standard 10-28-2013 11:15-0500 Heart rate 62 /min Lisa Hufflizettenitish [facility] Work Phone: Comment on above: Pattern: Regular 10-28-2013 11:15-0500 Respiratory rate 16 /min Lisa Rosenbaum [facility] Work Phone: Comment on above: Pattern: Unlabored 10-28-2013 11:15-0500 SaO2% (BldA) [Mass fraction] 97 % Lisa Rosenbaum [facility] Work Phone: Comment on above: Room air 10-28-2013 11:15-0500 Systolic blood pressure 152 mm[Hg] Lisa Rosenbaum [facility] Work [...] 15:03-0400 Body weight 126.46 kg Na Eller INSPECTING SUPERVISOR [facility] Work [...] 11:43-0400 Systolic blood pressure 142 mm[Hg] Janay Edwarsd RN [facility]; [...] 12-12-2008 09:28-0400 Diastolic blood pressure 78 mm[Hg] Neirssa Ismael DO Work Phone: [facility]; [...] 09-04-2008 09:48-0500 Diastolic blood pressure 88 mm[Hg] Janya Edwards RN [facility]; [facility] [...] 09-04-2008 09:48-0500 Systolic blood pressure 152 mm[Hg] Jnaay Edwards RN [facility] [...] (BldA) [Mass fraction] 94 % ANTHONY Bala INSPECTING SUPERVISOR [facility] Work Phone: Comment on above: Room air 11-05-2007 10:48-0400 Systolic blood pressure 124 mm[Hg] ANTHONY Mckenna [facility] [...] Type Care Provider Facility Start: 05-05-2025 ambulatory [facility] Facility:[facility] Start: 05-01-[address] Priya Ulloa MD -[facility] Start: 05-01-2025 End: 05-01-[address] Simon Ulloa MD -[facility] Work Phone: Start: 05-01-2025 End: 05-01-[address] Martin Gutierrez MD Work Phone: -[facility] Start: 01-03-2025 ambulatory [facility] Facility:[facility] Start: 12-22-2024 End: 12-22-[address] Martin Gutierrez MD -Laboratory Work Phone: Start: 12-22-2024 End: 12-22-2024 ambulatory [facility] Facility:[facility] Start: 11-14-2024 End: 11-14-[address] Armando Ga MD -Physical Therapy Work Phone: Start: 11-14-2024 End: 11-14-[address] Martin Gutierrez MD Work Phone: [facility] Work Phone: Start: 10-05-2024 End: 10-05-[address] Martin Gutierrez MD -Laboratory Work Phone: Start: 10-04-[address] Priya Ulloa MD -[facility] Start: 10-04-2024 End: 10-04-[address] Simon Ulloa MD -[facility] Work Phone: Start: 10-04-2024 End: 10-05-2024 ambulatory Martin Chi Matt Facility:[facility] Start: 09-28-2024 Non-patient / Non-visit Dr. Scott Mcneal MD -[facility] Work Phone: Start: 09-27-2024 Non-patient / Non-visit Dr. Scott Mcneal MD -[facility] Work Phone: Start: 09-26-2024 ambulatory Esperanza Myers Facility :[facility] Start: 09-26-2024 End: 09-28-2024 Evaluation and management of inpatient Dr. Scott Mcneal MD -Medical Surgical 3 Work Phone: Start: 07-26-2024 End: 07-26-2024 ambulatory Martin Chi Matt Facility:[facility] Start: 07-26-2024 End: 07-26-2024 ambulatory Margi Christian [employer]IST Facility:[facility] Start: 06-15-2024 End: 06-15-2024 ambulatory Martin Chi Matt Facility:[facility] Start: 06-13-2024 End: 06-13-2024 ambulatory Martin Chi Matt Facility:[facility] Start: 05-23-2024 End: 05-23-2024 ambulatory Martin Chi Matt Facility:[facility] Start: 05-20-2024 ambulatory Martin Chi Matt Facility:[facility] Start: 05-17-2024 ambulatory Martin Chi Matt Facility:[facility] Start: 05-11-2024 End: 05-11-2024 ambulatory Martin Chi Matt Facility:[facility] Start: 12-18-2023 End: 12-18-[address] Martin Gutierrez Work Phone: [facility] Work Phone: Start: 12-18-2023 End: 12-18-[address] [facility] Start: 09-30-[address] Martin alex Work Phone: [facility] Start: 09-30-2023 End: 09-30-[address] Martin Gutierrez Work Phone: [facility] Work Phone: Start: 08-26-2023 End: 08-26-2023 ambulatory [facility] Work Phone: Start: 08-26-2023 End: 08-26-2023 Patient encounter procedure [facility] 3rd Flr Start: 06-09-2023 End: 06-09-[address] Martin Gutierrez Work Phone: [facility] Work Phone: Start: 06-09-2023 End: 06-09-[address] Martin Gutierrez Work Phone: [facility] 3rd Flr Start: 05-14-2023 End: 05-14-[address] Martin Gutierrez Work Phone: [facility] Work Phone: Start: 05-14-2023 End: 05-14-[address] Martin Gutierrez Work Phone: [facility]-Pulmonary Services/Neurology Work Phone: Start: 05-05-2023 End: 05-05-[address] Martin Gutierrez Work Phone: [facility] Work Phone: Start: 05-05-2023 End: 05-05-[address] Martin Gutierrez Work Phone: [facility]-Outpatient Breast Imaging Work Phone: Start: 04-15-[address] Martin alex Work Phone: [facility] Start: 04-15-2023 End: 04-15-[address] Martin Gutierrez Work Phone: [facility] Work Phone: Start: 12-11-2022 End: 12-11-[address] Martin Gutierrez Work Phone: [facility] Work Phone: Start: 12-11-2022 End: 12-11-[address] Martin Gutierrez Work Phone: [facility]-Laboratory Start: 11-27-2022 End: 11-27-[address] [facility] Start: 10-20-2022 End: 10-20-[address] [facility] Start: 09-02-[address] Martin alex Work Phone: [facility] Start: 09-02-2022 End: 09-02-[address] Martin Gutierrez Work Phone: [facility] Start: 06-11-2022 End: 06-11-[address] Martin Gutierrez Work Phone: [facility] Work Phone: Start: 06-11-2022 End: 06-11-[address] Martin Gutierrez Work Phone: [facility]-Laboratory, Phy Office 3rd Flr Start: 06-02-2022 End: 06-02-[address] [facility] Start: 04-23-2022 End: 04-23-[address] Martin Gutierrez Work Phone: [facility] Work Phone: Start: 04-23-2022 End: 04-23-[address] [facility] Start: 04-15-2022 End: 04-15-[address] Martin Gutierrez Work Phone: [facility] Work Phone: Start: 04-15-2022 End: 04-15-[address] Martin Gutierrez Work Phone: [facility]-Outpatient Breast Imaging Start: 02-19-2022 End: 02-19-[address] Martin Gutierrez Work Phone: [facility] Start: 02-19-[address] Martin alex Work Phone: [facility] Start: 12-17-2021 End: 12-17-[address] [facility]rez [facility] Start: 12-02-2021 End: 12-02-[address] [facility] Start: 11-06-[address] Martin alex Work Phone: [facility] Start: 11-06-2021 End: 11-06-[address] Martin Gutierrez Work Phone: [facility] Start: 09-17-2021 End: 09-17-[address] Martin Gutierrez Work Phone: [facility] Start: 08-20-2021 Non-patient / Non-visit Dr. Martin Gutierrez Work Phone: [facility] Start: 08-20-[address] Martin Gutierrez Work Phone: [facility]-Cardiovascular Services Start: 08-13-2017 End: 08-13-2017 Ambulatory BRANDO GUTIERREZ Facility:[facility] Start: 07-14-2017 End: 07-14-2017 Ambulatory NELY CALZADA Facility:[facility] Start: 06-25-2017 End: 06-25-2017 Patient encounter procedure [facility] PROVIDER [facility] Start: 06-25-2017 End: 06-28-2017 Evaluation and management of inpatient CELINE CORREA [facility] Start: 08-30-2015 End: 08-30-2015 Office outpatient [...] Start: 10-05-2024 Measurement of renal function Dr. aMrtin Gutierrez MD Work Phone: Comment on above: [...] Parikh Work Phone: Start: 07-15-2016 End: 07-15-2016 TUBE MACHINE OPERATOR HELPER Anaya Everett NP Work Phone: Start: 07-15-2016 End: 07-15-2016 Follow Up Appt 6 months Anaya Everett [employer]IST Work Phone: Start: 07-15-2016 End: 07-23-2016 Nuclear stress test -Julio C Everett [employer] SPECIALIST Work Phone: Start: 07-15-2016 End: 07-15-2016 TUBE MACHINE OPERATOR HELPER Anaya Everett [employer]IST Work Phone: Start: 07-15-2016 End: 07-15-2016 Follow Up Appt 6 months Anaya Everett [employer]IST Work Phone: Start: 07-15-2016 End: 07-23-2016 Nuclear stress test -Julio C Everett [employer]IST Work Phone: Start: 12-11-2015 End: 12-11-2015 Follow Up Appt 6 months rTacy De La Cruz Start: 12-11-2015 End: 12-11-2015 BECKI Samuel MD Start: 12-11-2015 End: 07-14-2017 Chest x-ray Efrain Samuel MD Start: 12-11-2015 End: 12-11-2015 Follow Up Appt 6 months Trayc De La Cruz Start: 12-11-2015 End: 12-11-2015 BECKI Samuel MD Start: 08-30-2015 End: 08-30-2015 Ecg routine ecg w/least 12 lds w/i&r [MEASUREMENTS ANALYSIS] Date of Test: 08/30/2015 12:51:52; Heart Rate: 58; MA Interval: 182; QRS: 104; QT Interval: 428; Corrected QT Interval (QTc): 425; P [place]: 54; QRS [place]: 48; T Wave [place]: 48; Blood Pressure: 162/80 [ECG DIAGNOSTIC STATEMENTS] Date of Test: 08/30/2015 12:51:52; Summary: Sinus Bradycardia WITHIN NORMAL LIMITS Nerissa Rodriguez DO Work Phone: Comment on above: sinus cristian - no acu te chg h/o cad on BB Start: 02-06-2015 End: 02-06-2015 TUBE MACHINE OPERATOR HELPER Eliane Rodrigez PA-C Work Phone: Start: 02-06-2015 [...] PA-C Work Phone: Start: 02-06-2015 End: 02-06-2015 TUBE MACHINE OPERATOR HELPER Eliane Rodrigez PA-C Work Phone: Start: 02-06-2015 [...] PA-C Work Phone: Start: 06-08-2013 End: 06-08-2013 TUBE MACHINE OPERATOR HELPER Eliane Rodrigez PA-C Work Phone: Start: 06-08-2013 End: 06-08-2013 Follow Up Appt 6 months Eliane Rodrigez PA-C Work Phone: Start: 06-08-2013 End: 08-09-2014 Lipid 1996 panel - Serum or Plasma Eliane Rodrigez PA-C Work Phone: Start: 06-08-2013 End: 06-08-2013 TUBE MACHINE OPERATOR HELPER Eliane Rodrigez PA-C Work Phone: Start: 06-08-2013 [...] Martin Gutierrez Work Phone: Comment on above: JRO-VZA-Mpm-Distal R CA w/ 3.5 x 30 mm, 3.0 x 12 mm, 3.5 x 24 mm Bruce Stents 12/20/2008 Investigation of transfusion reaction Dr. Martin Gutierrez Work Phone: Microbial culture, routine D kimberley Gutierrez Work Phone: Urine culture Dr. Martin Gutierrez Work Phone: Urine culture Dr. Martin Gutierrez Work Phone: Plan of Treatment Date Care Activity Detail Author Start: 05-01-2025 [facility] Start: 09-28-2024 Patient discharge [facility] Start: 09-26-2024 Contact precautions [facility] Start: 09-26-2024 Respiratory secretion precautions [facility] Start: 09-26-2024 Following clinical pathway protocol [facility] Start: 09-26-2024 Assessment of risk of venous thromboembolism [facility] Start: 09-26-2024 Fall prevention [facility] Start: 09-26-2024 Incentive spirometry [facility] Start: 09-26-2024 Inhalation therapy procedure [facility] Start: 09-26-2024 Insertion of catheter into peripheral vein [facility] Start: 09-26-2024 Introduction of urinary catheter [facility] Start: 09-26-2024 Measuring intake and output [facility] Start: 09-26-2024 Oxygen therapy [facility] Start: 09-26-2024 Providing care according to standard [facility] Start: 09-26-2024 Provision of activity privileges [facility] Start: 09-26-2024 Referral to occupational therapist [facility] Start: 09-26-2024 Referral to service [facility] Start: 09-26-2024 Tobacco use cessation education [facility] Start: 09-26-2024 [facility] Start: 09-26-2024 Admission procedure [facility] Start: 11-29-2020 Following clinical pathway protocol [facility] Start: 07-27-2017 End: 07-27-2017 Appointment Appointment [facility] Work Phone: Start: 07-01-2017 End: 07-01-2017 Echocardiography Echocardiogram (complete) [facility] Work Phone: Start: 07-01-2017 End: 07-01-2017 Echocardiography Echocardiogram (complete) [facility] Work Phone: Start: 01-15-2017 End: 01-15-2017 Carotid duplex Carotid duplex [facility] Work Phone: Start: 01-15-2017 End: 07-01-2017 Follow Up Appt 6 months Follow Up Appt 6 months [facility] Work Phone: Start: 01-15-2017 End: 07-01-2017 MMM MMM [facility] Work Phone: Start: 01-15-2017 End: 01-15-2017 Patient encounter procedure Appointment [facility] Work Phone: Start: 01-15-2017 End: 01-15-2017 Carotid duplex Carotid duplex [facility] Work Phone: Start: 01-15-2017 End: 07-01-2017 Follow Up Appt 6 months Follow Up Appt 6 months [facility] Work Phone: Start: 01-15-2017 End: 07-01-2017 MMM MMM [facility] Work Phone: Start: 08-22-2016 End: 09-02-2016 *PTH (Parathyroid Hormone) *PTH (Parathyroid Hormone) [facility] Work Phone: Start: 08-22-2016 End: 09-04-2016 1,25-Dihydroxyvitamin D [Mass/volume] in Serum or Plasma *[id number] Vitamin D, 1, 25- DiHydroxy [facility] Work Phone: Start: 08-22-2016 End: 08-22-2016 Alkaline phosphatase (ALP) *ALK Alkaline Phosphatase, Serum [facility] Work Phone: Start: 08-22-2016 End: 09-02-2016 Calcium *Calcium, Total [facility] Work Phone: Start: 08-22-2016 End: 08-22-2016 Ct upper extremity w/o contrast material CT Upper Extremity [facility] Work Phone: Start: 08-22-2016 End: 09-02-2016 *PTH (Parathyroid Hormone) *PTH (Parathyroid Hormone) [facility] Work Phone: Start: 08-22-2016 End: 09-04-2016 1,25-Dihydroxyvitamin D [Mass/volume] in Serum or Plasma *[id number] Vitamin D, 1, 25- DiHydroxy [facility] Work Phone: Start: 08-22-2016 End: 08-22-2016 Alkaline phosphatase [Enzymatic activity/volume] in Serum or Plasma *ALK Alkaline Phosphatase, Serum [facility] Work Phone: Start: 08-22-2016 End: 09-02-2016 Calcium [Mass/volume] in Serum or Plasma *Calcium, Total [facility] Work Phone: Start: 08-22-2016 End: 08-22-2016 Ct upper extremity w/o contrast material CT Upper Extremity [facility] Work Phone: Start: 08-21-2016 End: 08-21-2016 Mri any jt upper extremity w/o contrast matrl MRI Joint Upper Extremity [facility] Work Phone: Start: 08-21-2016 End: 08-21-2016 Radex elbow complete minimum 3 views X-Ray, Elbow [facility] Work Phone: Start: 08-21-2016 End: 08-21-2016 Mri any jt upper extremity w/o contrast matrl MRI Joint Upper Extremity [facility] Work Phone: Start: 08-21-2016 End: 08-21-2016 Radex elbow complete minimum 3 views X-Ray, Elbow [facility] Work Phone: Start: 07-15-2016 End: 07-15-2016 [facility] Work Phone: Start: 07-15-2016 End: 07-15-2016 Follow Up Appt 6 months Follow Up Appt 6 months [facility] Work Phone: Start: 07-15-2016 End: 07-15-2016 Nuclear stress test -Lexiscan Nuclear stress test -Lexiscan [facility] Work Phone: Start: 07-15-2016 End: 07-15-2016 [facility] Work Phone: Start: 07-15-2016 End: 07-15-2016 Follow Up Appt 6 months Follow Up Appt 6 months [facility] Work Phone: Start: 07-15-2016 End: 07-15-2016 Nuclear stress test -Lexiscan Nuclear stress test -Lexiscan [facility] Work Phone: Start: 01-24-2016 Hemoglobin glycosylated a1c Hemoglobin Glyclated (HGB A1C) (38036) [facility] Work Phone: Start: 12-11-2015 End: 12-11-2015 Chest x-ray X-Ray, Chest, PA & Lateral [facility] Work Phone: Start: 12-11-2015 End: 12-11-2015 Follow Up Appt 6 months Follow Up Appt 6 months [facility] Work Phone: Start: 12-11-2015 End: 12-11-2015 MMM MMM [facility] Work Phone: Start: 12-11-2015 End: 07-14-2017 Chest x-ray X-Ray, Chest, PA & Lateral [facility] Work Phone: Start: 12-11-2015 End: 12-11-2015 Follow Up Appt 6 months Follow Up Appt 6 months [facility] Work Phone: Start: 12-11-2015 End: 12-11-2015 [facility] Work Phone: Start: 09-26-2015 Hemoglobin glycosylated a1c Hemoglobin Glyclated (HGB A1C) (16497) [facility] Work Phone: Start: 08-30-2015 Procedure Education Eprescribed prescriptions ([id number]) [facility] Work Phone: Start: 08-30-2015 Provider Instructions for Treatment [facility] Work Phone: Start: 08-30-2015 Hemoglobin glycosylated a1c Hemoglobin Glyclated (HGB A1C) ([id number]) [facility] Work Phone: Start: 08-30-2015 Alpha-fetoprotein serum [id number] ([id number]) [facility] Work Phone: Start: 08-30-2015 Thromboplastin time partial plasma/whole blood PTT (Activated Partial Thromboplastin Time) ([id number]) [facility] Work Phone: Start: 08-30-2015 Prothrombin time PT (Prothrobim Time) (54328) [facility] Work Phone: Start: 08-30-2015 25 hydroxy includes fractions if performed CALCIFIDIOL (52048) VIT D 25 [facility] Work Phone: Start: 08-30-2015 Cyanocobalamin vitamin b-12 VITAMIN B-12 (CYANOCOBALAMIN) (43412) [facility] Work Phone: Start: 08-30-2015 Urnls dip stick/tablet reagent auto microscopy URINALYSIS, W/ MICRO (04185) [facility] Work Phone: Start: 08-30-2015 Urine albumin quantitative MICROALBUMIN: CREATININE RATIO (61205) AND (06455) [facility] Work Phone: Start: 08-30-2015 Comprehensive metabolic panel METABOLIC PANEL, COMPREHENSIVE (21561) [facility] Work Phone: Start: 08-30-2015 Assay of thyroid stimulating hormone tsh TSH (25520) [facility] Work Phone: Start: 08-30-2015 Lipid panel LIPID PANEL (71725) [facility] Work Phone: Start: 08-30-2015 Blood count complete auto&auto difrntl wbc CBC W/AUTO DIFF WBC (70247) [facility] Work Phone: Start: 07-26-2015 Provider Instructions for Treatment [facility] Work Phone: Start: 07-26-2015 Cytp cerv/vag auto thin layer prep mnl screen Thin prep Pap (89306) (no STD testing) [facility] Work Phone: Start: 05-29-2015 Hemoglobin glycosylated a1c Hemoglobin Glyclated (HGB A1C) (64640) [facility] Work Phone: Start: 02-06-2015 End: 02-06-2015 *Hepatic Function Panel *Hepatic Function Panel [facility] Work Phone: Start: 02-06-2015 End: 02-06-2015 [facility] Work Phone: Start: 02-06-2015 End: 02-06-2015 Ecg routine ecg w/least 12 lds w/i&r EKG (In office) [facility] Work Phone: Start: 02-06-2015 End: 02-06-2015 Follow Up Appt 6 months Follow Up Appt 6 months [facility] Work Phone: Start: 02-06-2015 End: 02-06-2015 Lipid panel [AGGREGATE] *Lipid Profile CC PCP [facility] Work Phone: Start: 02-06-2015 End: 02-06-2015 [facility] Work Phone: Start: 02-06-2015 End: 02-06-2015 Ecg routine ecg w/least 12 lds w/i&r EKG (In office) [facility] Work Phone: Start: 02-06-2015 End: 02-06-2015 Follow Up Appt 6 months Follow Up Appt 6 months [facility] Work Phone: Start: 02-06-2015 End: 07-14-2017 Hepatic function 2000 panel - Serum or Plasma *Hepatic Function Panel [facility] Work Phone: Start: 02-06-2015 End: 07-14-2017 Lipid 1996 panel - Serum or Plasma *Lipid Profile CC PCP [facility] Work Phone: Start: 01-31-2015 Cyanocobalamin vitamin b-12 VITAMIN B-12 (CYANOCOBALAMIN) (84242) [facility] Work Phone: Start: 01-29-2015 Procedure Education Eprescribed prescriptions (G8553) [facility] Work Phone: Start: 01-29-2015 Provider Instructions for Treatment [facility] Work Phone: Start: 01-29-2015 Hemoglobin glycosylated a1c Hemoglobin Glyclated (HGB A1C) (93940) [facility]; [facility] Work Phone: Start: 01-29-2015 Cyanocobalamin vitamin b-12 VITAMIN B12 AND FOLATES (86788) [facility] Work Phone: Start: 01-29-2015 Thromboplastin time partial plasma/whole blood PTT (Activated Partial Thromboplastin Time) (23847) [facility] Work Phone: Start: 01-29-2015 Prothrombin time PT (Prothrobim Time) (24029) [facility] Work Phone: Start: 01-29-2015 Alpha-fetoprotein serum [id number] (57768) [facility]; [facility] Work Phone: Start: 01-29-2015 25 hydroxy includes fractions if performed CALCIFIDIOL (47124) VIT D 25 [facility] Work Phone: Start: 01-29-2015 Assay of thyroid stimulating hormone tsh TSH (57224) [facility] Work Phone: Start: 01-29-2015 Blood count complete auto&auto difrntl wbc CBC W/AUTO DIFF WBC (68864) [facility] Work Phone: Start: 01-29-2015 Lipid panel LIPID PANEL (34517) [facility] Work Phone: Start: 01-29-2015 Comprehensive metabolic panel METABOLIC PANEL, COMPREHENSIVE (34473) [facility] Work Phone: Start: 10-11-2014 Provider Instructions for Treatment [facility] Work Phone: Start: 10-11-2014 Hepatic function panel HEPATIC FUNCTION PANEL (28280) [facility] Work Phone: Comment on above: do in 2 months Start: 10-11-2014 Lipid panel LIPID PANEL (67094) [facility] Work Phone: Comment on above: do in 2 months Start: 10-02-2014 Provider Instructions for Treatment [facility] Work Phone: Start: 08-30-2014 Provider Instructions for Treatment [facility] Work Phone: Start: 05-24-2014 End: 02-06-2015 *Hepatic Function Panel *Hepatic Function Panel [facility] Work Phone: Start: 05-24-2014 End: 02-06-2015 Lipid panel [AGGREGATE] *Lipid Profile CC PCP [facility] Work Phone: Start: 05-24-2014 End: 02-06-2015 Hepatic function 2000 panel - Serum or Plasma *Hepatic Function Panel [facility] Work Phone: Start: 05-24-2014 End: 02-06-2015 Lipid 1996 panel - Serum or Plasma *Lipid Profile CC PCP [facility] Work Phone: Start: 03-02-2014 End: 03-02-2014 *Hepatic Function Panel *Hepatic Function Panel [facility] Work Phone: Start: 03-02-2014 End: 08-09-2014 Follow Up Appt 6 months Follow Up Appt 6 months [facility] Work Phone: Start: 03-02-2014 End: 03-02-2014 Lipid panel [AGGREGATE] *Lipid Profile CC PCP [facility] Work Phone: Start: 03-02-2014 End: 08-09-2014 MMM MM [facility] Work Phone: Start: 03-02-2014 End: 08-09-2014 Follow Up Appt 6 months Follow Up Appt 6 months [facility] Work Phone: Start: 03-02-2014 End: 03-02-2014 Hepatic function 2000 panel - Serum or Plasma *Hepatic Function Panel [facility] Work Phone: Start: 03-02-2014 End: 03-02-2014 Lipid 1996 panel - Serum or Plasma *Lipid Profile CC PCP [facility] Work Phone: Start: 03-02-2014 End: 08-09-2014 MMM MMM [facility] Work Phone: Start: 10-28-2013 Patient Education Cough Medicines, Nonprescription: cough [facility] Work Phone: Start: 10-28-2013 Provider Instructions for Treatment [facility] Work Phone: Start: 06-08-2013 End: 08-09-2014 *Hepatic Function Panel *Hepatic Function Panel [facility] Work Phone: Start: 06-08-2013 End: 06-08-2013 TUBE MACHINE OPERATOR HELPER TUBE MACHINE OPERATOR HELPER [facility] Work Phone: Start: 06-08-2013 End: 06-08-2013 Follow Up Appt 6 months Follow Up Appt 6 months [facility] Work Phone: Start: 06-08-2013 End: 08-09-2014 Lipid panel [AGGREGATE] *Lipid Profile CC PCP [facility] Work Phone: Start: 06-08-2013 End: 06-08-2013 TUBE MACHINE OPERATOR HELPER TUBE MACHINE OPERATOR HELPER [facility] Work Phone: Start: 06-08-2013 End: 06-08-2013 Follow Up Appt 6 months Follow Up Appt 6 months [facility] Work Phone: Start: 06-08-2013 End: 08-09-2014 Hepatic function 2000 panel - Serum or Plasma *Hepatic Function Panel [facility] Work Phone: Start: 06-08-2013 End: 08-09-2014 Lipid 1996 panel - Serum or Plasma *Lipid Profile CC PCP [facility] Work Phone: Start: 12-09-2012 End: 06-08-2013 *Hepatic Function Panel *Hepatic Function Panel [facility] Work Phone: Start: 12-09-2012 End: 12-09-2012 Follow Up Appt 6 months Follow Up Appt 6 months [facility] Work Phone: Start: 12-09-2012 End: 06-08-2013 Lipid panel [AGGREGATE] *Lipid Profile [facility] Work Phone: Start: 12-09-2012 End: 12-09-2012 MMM MMM [facility] Work Phone: Start: 12-09-2012 End: 12-09-2012 Nuclear stress test -adenosine Nuclear stress test -adenosine [facility] Work Phone: Start: 12-09-2012 End: 12-09-2012 Follow Up Appt 6 months Follow Up Appt 6 months [facility] Work Phone: Start: 12-09-2012 End: 06-08-2013 Hepatic function 2000 panel - Serum or Plasma *Hepatic Function Panel [facility] Work Phone: Start: 12-09-2012 End: 06-08-2013 Lipid 1996 panel - Serum or Plasma *Lipid Profile [facility] Work Phone: Start: 12-09-2012 End: 12-09-2012 MMM MMM [facility] Work Phone: Start: 12-09-2012 End: 12-09-2012 Nuclear stress test -adenosine Nuclear stress test -adenosine [facility] Work Phone: Start: 07-28-2012 Patient Education Nutrition for Diabetics: Dining Out *: diet [facility]; [facility] Work Phone: Start: 07-28-2012 Provider Instructions for Treatment [facility] Work Phone: Start: 07-01-2012 Provider Instructions for Treatment Reviewed Manager Utilization Letter [facility] Work Phone: Start: 05-05-2012 End: 05-05-2012 Follow Up Appt 6 months Follow Up Appt 6 months [facility] Work Phone: Start: 05-05-2012 End: 05-05-2012 Follow Up Appt 6 months Follow Up Appt 6 months [facility] Work Phone: Start: 04-29-2012 End: 12-15-2012 *Hepatic Function Panel *Hepatic Function Panel [facility] Work Phone: Start: 04-29-2012 End: 12-15-2012 Lipid panel [AGGREGATE] *Lipid Profile [facility] Work Phone: Start: 04-29-2012 End: 12-15-2012 Hepatic function 2000 panel - Serum or Plasma *Hepatic Function Panel [facility] Work Phone: Start: 04-29-2012 End: 12-15-2012 Lipid 1996 panel - Serum or Plasma *Lipid Profile [facility] Work Phone: Start: 03-25-2012 Patient Education Hypothyroidism: Brief Version *: hypothyroidism [facility]; [facility] Work Phone: Start: 03-25-2012 Provider Instructions for Treatment [facility]; [facility] Work Phone: Start: 03-25-2012 Assay of thyroid stimulating hormone tsh TSH (47076) [facility]; [facility] Work Phone: Start: 03-25-2012 Urine albumin quantitative MICROALBUMIN: CREATININE RATIO (36795) AND (57760) [facility]; [facility] Work Phone: Start: 03-25-2012 Comprehensive metabolic panel METABOLIC PANEL, COMPREHENSIVE (02408) [facility]; [facility] Work Phone: Start: 03-25-2012 Lipid panel LIPID PANEL (44147) [facility]; [facility] Work Phone: Start: 03-25-2012 Blood count manual cell count each CBC WITH MANUAL DIFF (25777) [facility]; [facility] Work Phone: Start: 01-19-2012 Assay of thyroid stimulating hormone tsh TSH (79998) [facility]; [facility] Work Phone: Start: 11-21-2011 Provider Instructions for Treatment Follow up if no improvement or if symptoms worsen [facility]; [facility] Work Phone: Start: 11-21-2011 25 hydroxy includes fractions if performed CALCIFEDIOL (31384) [facility]; [facility] Work Phone: Start: 11-19-2011 Provider Instructions for Treatment Reviewed Lab [facility]; [facility] Work Phone: Start: 11-19-2011 Extractable nuclear antigen antibody any method [id number] (99536) [facility]; [facility] Work Phone: Start: 11-19-2011 25 hydroxy includes fractions if performed CALCIFIDIOL (54772) VIT D 25 [facility]; [facility] Work Phone: Start: 11-19-2011 Cyanocobalamin vitamin b-12 VITAMIN B-12 (CYANOCOBALAMIN) (47561) [facility]; [facility] Work Phone: Start: 11-10-2011 Glucose quantitative blood xcpt reagent strip Glucose, PP/2 Hour (01540) [facility]; [facility] Work Phone: Start: 11-07-2011 Provider Instructions for Treatment [facility]; [facility] Work Phone: Start: 11-07-2011 Cyclic citrullinated peptide antibody CCP ANTIBODY (24951) [facility]; [facility] Work Phone: Start: 11-07-2011 Sedimentation rate rbc non-automated SED RATE ERYTHROCYTE (40646) [facility]; [facility] Work Phone: Start: 11-07-2011 Antinuclear antibodies rj RJ (ANTINUCLEAR ANTIBODY) (22502) [facility]; [facility] Work Phone: Start: 11-07-2011 Assay of thyroid stimulating hormone tsh TSH (91365) [facility]; [facility] Work Phone: Start: 11-07-2011 Blood count manual cell count each CBC WITH MANUAL DIFF (29343) [facility]; [facility] Work Phone: Start: 11-07-2011 C-reactive protein C-REACTIVE PROTEIN (15892) [facility]; [facility] Work Phone: Start: 11-07-2011 Rheumatoid factor quantitative RHEUMATOID FACTOR-QUANT (13803) [facility]; [facility] Work Phone: Start: 11-07-2011 Comprehensive metabolic panel METABOLIC PANEL, COMPREHENSIVE (43741) [facility]; [facility] Work Phone: Start: 11-04-2011 End: 11-04-2011 Follow Up Appt 6 months Follow Up Appt 6 months [facility] Work Phone: Start: 11-04-2011 End: 11-04-2011 Follow Up Appt 6 months Follow Up Appt 6 months [facility] Work Phone: Start: 10-06-2011 Provider Instructions for Treatment Follow up in 2 weeks [facility]; [facility] Work Phone: Start: 09-17-2010 Glucose quantitative blood xcpt reagent strip Glucose, PP/2 Hour (69323) [facility]; [facility] Work Phone: Start: 09-16-2010 Provider Instructions for Treatment [facility]; [facility] Work Phone: Start: 09-16-2010 Hepatic function panel HEPATIC FUNCTION PANEL (94143) [facility]; [facility] Work Phone: Start: 09-09-2010 Renal function panel Renal function Panel (10050) [facility]; [facility] Work Phone: Start: 09-09-2010 Culture bacterial quanttative colony count urine URINE RBAD CULTURE-BUDDY COL COUNT (97894) [facility]; [facility] Work Phone: Start: 09-09-2010 Patient Education Water in diet, brief version [facility]; [facility] Work Phone: Start: 09-09-2010 Provider Instructions for Treatment FOLLOW UP IN 1 WEEK [facility]; [facility] Work Phone: Start: 05-20-2010 Blood count manual cell count each CBC with manual diff (18302) [facility]; [facility] Work Phone: Comment on above: please do in ER Start: 05-20-2010 Fibrin dgradj products d-dimer quantitative D-Dimer (87821) [facility]; [facility] Work Phone: Comment on above: stat please do in ER Start: 05-20-2010 Provider Instructions for Treatment [facility]; [facility] Work Phone: Start: 04-25-2010 Provider Instructions for Treatment [facility]; [facility] Work Phone: Start: 04-25-2010 Cytp cerv/vag auto thin layer prep mnl screen Thin prep Pap (91300) [facility]; [facility] Work Phone: Start: 04-15-2010 Provider Instructions for Treatment Continue Current Prescription(s) [facility]; [facility] Work Phone: Start: 04-09-2010 Provider Instructions for Treatment FOLLOW UP TOMORROW [facility]; [facility] Work Phone: Start: 04-08-2010 Provider Instructions for Treatment [facility]; [facility] Work Phone: Start: 03-18-2010 Lipid panel LIPID PANEL (62597) [facility]; [facility] Work Phone: Start: 03-18-2010 Assay of thyroid stimulating hormone tsh TSH (38249) [facility]; [facility] Work Phone: Start: 03-18-2010 Urnls dip stick/tablet reagent auto microscopy URINALYSIS, W/ MICRO (45187) [facility]; [facility] Work Phone: Start: 03-18-2010 Urine albumin quantitative MICROALBUMIN: CREATININE RATIO (92426) AND (78123) [facility]; [facility] Work Phone: Start: 03-18-2010 Comprehensive metabolic panel METABOLIC PANEL, COMPREHENSIVE (34485) [facility]; [facility] Work Phone: Start: 03-18-2010 Blood count manual cell count each CBC WITH MANUAL DIFF (78054) [facility]; [facility] Work Phone: Start: 03-18-2010 Provider Instructions for Treatment [facility]; [facility] Work Phone: Start: 04-26-2009 Provider Instructions for Treatment [facility]; [facility] Work Phone: Start: 04-26-2009 Urnls dip stick/tablet rgnt auto w/o microscopy URINALYSIS W/O MICRO (66080) [facility]; [facility] Work Phone: Start: 04-26-2009 Assay of thyroid stimulating hormone tsh TSH (45096) [facility]; [facility] Work Phone: Start: 04-26-2009 Urine albumin quantitative MICROALBUMIN: CREATININE RATIO (02058) AND (10402) [facility]; [facility] Work Phone: Start: 04-26-2009 Comprehensive metabolic panel METABOLIC PANEL, COMPREHENSIVE (44802) [facility]; [facility] Work Phone: Start: 04-26-2009 Blood count manual cell count each CBC WITH MANUAL DIFF (31691) [facility]; [facility] Work Phone: Start: 04-26-2009 Hepatic function panel HEPATIC FUNCTION PANEL (77917) [facility]; [facility] Work Phone: Start: 04-26-2009 Lipid panel LIPID PANEL (72431) [facility]; [facility] Work Phone: Start: 04-26-2009 Lipoprotein blood buddy numbers & subclasses LIPOPROTEIN, BLD, BY NMR (72898) [facility]; [facility] Work Phone: Start: 2009 Provider Instructions for Treatment [facility]; [facility] Work Phone: Start: 03-26-2009 Provider Instructions for Treatment [facility]; [facility] Work Phone: Start: 12-12-2008 Provider Instructions for Treatment [facility]; [facility] Work Phone: Start: 12-12-2008 Basic metabolic panel calcium total Metabolic Panel, Basic (00864) [facility]; [facility] Work Phone: Comment on above: To be drawn December 21 Start: 11-22-2008 Provider Instructions for Treatment [facility]; [facility] Work Phone: Start: 09-04-2008 Provider Instructions for Treatment [facility]; [facility] Work Phone: Start: 11-05-2007 Fibrin dgradj products d-dimer quantitative D-Dimer (65099) [facility]; [facility] Work Phone: Start: 11-05-2007 Blood count complete auto&auto difrntl wbc CBC, Platelets & Auto Diff (38901) [facility]; [facility] Work Phone: CBC W Auto Different ial panel - Blood [facility] Work Phone: CBC W Auto Different ial panel - Blood [facility] CBC W Auto Different ial panel - Blood [facility] CBC W Auto Different ial panel - Blood [facility] CBC W Auto Different ial panel - Blood [facility] CT Chest [facility] Work Phone: CT Chest [facility] CT Chest [facility] Ferritin [Mass/volum e] in Serum or Plasma [facility] Work Phone: Ferritin [Mass/volum e] in Serum or Plasma [facility] Ferritin [Mass/volum e] in Serum or Plasma [facility] Ferritin [Mass/volum e] in Serum or Plasma [facility] Ferritin [Mass/volum e] in Serum or Plasma [facility] Iron and Iron bindin g capacity panel - Serum or Plasma [facility] Work Phone: Iron and Iron bindin g capacity panel - Serum or Plasma [facility] [employer] and [employer] bindin g capacity panel - Serum or Plasma [facility] [employer] bindin g capacity panel - Serum or Plasma [facility] [employer] and [employer] bindin g capacity panel - Serum or Plasma [facility] MG Breast - bilatera l Screening [facility] Work Phone: MG Breast - bilatera l Screening [facility] Patient referral [facility] Work Phone: Reticulocyte count [facility] Reticulocyte count [facility] Reticulocyte count [facility] Vitamin B12 measurement [facility] Work Phone: Vitamin B12 measurement [facility] [...] Immunizations Immunization Date Immunization Notes Care Provider [facility] 05-30-2020 influenza, injectabl e, quadrivalent, preservative free Dr. Martin Gutierrez Work Phone: [facility] 05-30-2020 influenza, seasonal, injectable Dr. Martin Gutierrez Work Phone: [facility] 04-26-2009 influenza, seasonal, injectable Nerissa Ismael DO Work Phone: [facility] Medicine; [facility] Work Phone: Comment on above: Given in Right delto idLot # [id number] 12/31CDH 04-26-2009 tetanus toxoid, reduced diphtheria toxoid, and acellular pertussis vaccine, adsorbed Nerissa Ismael DO Work Phone: [facility]; [facility] Work Phone: Comment on above: given in Left Deltoi dLot #[id number] 07-28-11DH 06-09-2008 influenza, seasonal, injectable Nerissa Ismael DO Work Phone: [facility]; [facility] Work Phone: Payers Date Payer Category Payer Self-pay [id number] 2017 Unknown [id number] 2015 Unknown [id number] 1960 Unknown [id number] 2.16.8 [id number] Medicare MEDICARE PART A B [id number] Unknown Unknown [id number] Unknown [id number] 2.16.8 40.1.530687.3.579.2.462 Unknown [id number] 2.16.8 40.1.745886.3.579.2.462 Unknown [id number] 2.16.8 40.1.510429.3.579.2.462 Unknown [id number] 2.16.8 40.1.214161.3.579.2.462 Unknown [id number] 2.16.8 40.1.513921.3.579.2.462 Unknown [id number] 2.16.8 40.1.238061.3.579.2.462 Unknown [id number] 2.16.8 40.1.068028.3.579.2.462 Unknown [id number] 2.16.8 40.1.426344.3.579.2.462 Unknown [id number] 2.16.8 40.1.428375.3.579.2.462 Unknown [id number] 2.16.8 40.1.655503.3.579.2.462 Unknown [id number] 2.16.8 40.1.644204.3.579.2.462 Unknown [id number] 2.16.8 40.1.711036.3.579.2.462 Unknown [id number] 2.16.8 40.1.488698.3.579.2.462 Unknown [id number] 2.16.8 40.1.844755.3.579.2.462 Unknown [id number] 2.16.8 40.1.121916.3.579.2.462 Unknown [id number] 2.16.8 40.1.344024.3.579.2.462 Unknown [id number] 2.16.8 40.1.676746.3.579.2.462 Unknown [id number] 2.16.8 40.1.615097.3.579.2.462 Unknown [id number] 2.16.8 40.1.214110.3.579.2.462 Unknown [id number] 2.16.8 40.1.119871.3.579.2.462 Social History Date Type Detail Facility Caffeine Use Caffeine Use [facility] Work Phone: Comment on above: 1-3 cups qd Inactive , Lives with spouse 1/2 pack day >30 yrs 11/19/11 Start: 07-26-2021 End: 10-20-2022 Tobacco smoking status RIIS Unknown if ever smoked [facility] Start: 01-02-2021 None [facility] Start: 01-02-2021 Homeless [facility] Start: 11-28-2020 Cigarettes [facility] Start: 1960 Sex Assigned At Female [facility] Start: 09-26-2024 End: 09-27-2024 Tobacco smoking status NHIS Smokes tobacco daily (finding) [facility] Goals Date Patient Goal Desired Activity /State Functional Status Date Assessment Result Facility 09-28-2024 Functional status Chair [facility] Work Phone: Mental Status Date Assessment Result Facility 09-28-2024 Cognitive function Voice/Name [facility] Work Phone: 01-13-2024 Cognitive function Voice/Name [facility] Work Phone: 10-10-2021 Cognitive function Voice/Name [facility] Work Phone: 02-25-2019 Cognitive function Mood Descript ion Appropriate;Calm;Relaxed [facility] Work Phone: Clinical Notes 01-15-2017 to 05-01-2025 Note Date & Type Note Facility 05-01-2025 [place] [facility] [place] Progress note Note Date/Time May 01, 2025 3:55pm [facility] [address] [place] [id number] OFFICE VISIT Date of Service: 05/01/25 1534 MR#: [id number] Acct: [id number] Name: ANGELES LARIOS Rep #: [id number] : 1960 From: Simon campbell MD Age/Sex: 65/F [place] [facility] [place] Status: Signed HPI Subjective Date of Service [...] capsule studies were done April 2021 at [facility], according to patient 2 colonic [...] stenosis Dysarthria Atherosclerosis of coronary artery of ramona heart without angina pectoris Essential (primary) hypertension [...] PO DAILY pain 5 05/01/25 History vitamins A,C,X-wpdg-zjcxih 4,296 1 cap PO DAILY supple ment [...] no focal motor deficits Coordination / Balance: cdtmqb-ke-mjwt test normal Speech: speech normal Gait (Neuro): [...] long-term) 1 -2 tablet daily as tolerated intermediate. #2 Supplement oral iron with IV infusion [...] watch. #5 Continue follow-up with GI at [facility]. Impression and recommendations discussed. Follow-up in 6 months, sooner if she becomes symptomatic. She was seen with her son. Simon Ulloa MD Automobile Bumper Straightener, [facility] Divisions of Medical Oncology & Hematology Department of Internal Medicine [place] [address] This note was generated using a voice [...] applicable) CC: Dr. Martin Gutierrez MD ~ [place] [facility] Work Phone: 1(386) 368-244805-07-2025 Discharge summary Author Pardeep Betancur [facility] Note Date/Time December 28, 2024 3:21pm [facility] Physical Therapy [facility] [address] [place] [address] / REHABILITATION SERVICES DISCHARGE SUMMARY MR#: [id number] Acct: [id number] Name: ANGELES LARIOS Rep #: [id number] : 1960 64 From: Cert. CAPRI MejiasT, OCS Referring Dr.: Dr. Armando Ga MD Status: REG RCR Insurance: [facility] [id number] SELF PAY INSURANCE Patient Information Patient Information: [...] Dr. Martin Gutierrez MD ~ JLHosea Signed [facility] Work Phone: 1(563) 267-499305-07-2025 Discharge summary [facility] Physical Therapy [facility] [facility] [place] [address] / REHABILITATION SERVICES DISCHARGE SUMMARY MR#: [id number] Acct: [id number] Name: ANGELES LARIOS Rep #: [id number] : 1960 64 From: Cert. KASEY Mejias, NIGEL Referring Dr.: Dr. Armando Ga MD Status: REG [facility] Insurance: [facility] [id number] SELF PAY INSURANCE Patient Information Patient Information: [...] Dr. Martin Gutierrez MD ~ JLA Signed [facility]02-05-2025 [facility] Medical Records Department [address] [place] [address] Discharge Summary 09/28/24 0954 MR#: [id number] Acct: [id number] Name: ANGELES LARIOS Rep #: [id number] : 1960 64 From: Scott Mcneal MD PCP: Dr. Martin Gutierrez MD Status:ADM IN Location: [place] [address] Providers Date of Admission: 09/26/24 Date of [...] 100 mg PO DAILY pain 09/26/24 vitamins A,C,S-hcpd-hhcxyt 4,296 mcg-226 mg-90 mg capsule (PreserVision AREDS) [...] 83.2 H, Lymph % (Auto) 8.5 L, [place] % (Auto) 7.6, Eos % (Auto) 0.0, Baso % (Auto) 0.2, Absolute Neuts (auto) 5.5, Absolute Lymphs (auto) 0.56 L, Nucleated RBC % 0, Sodium 138, Potassium 4.2, Chloride 105, Carbon Dioxide 27.0, Anion Gap 6, BUN 20 H, Creatinine 0.51 L, Estim Creat Clear Calc 76.35, Est GFR (MDRD) Af Amer 154, Est GFR (MDRD) Non-Af 127, BUN/Creatinine (more content notincluded)...[facility]02-03-2025 Evaluation note* Diagnosis Onset Date Resolution Status Admit Date Hypoxia resolved September 26, 2024 7:26pm Influenza A resolved September 26, 2024 7:26pm Iron deficiency anemia due t o chronic blood loss chronic September 10:07am Macrocytosis chronic September 10:07am Chronic GI bleeding chronic Febru timo 2024 10:15am Iron deficiency anemia deleted Fe bruary 2024 10:15am [facility] Work Phone: 1(884) 762-485702-24-2022 NoteHNO ID: [id number] Author: Leonard Urena MD Service: ? Author [...] enteroscopy. She is getting iron infusions in [place] with her fruit or nut grower. Has been getting weekly infusions x 3 [...] or pale stool. She has not contacted [facility] for consideration of double-balloon enteroscopy. We gave her this information back in July 2021. She says she lost the information and never followed up. PAST MEDICAL HISTORY Diagnosis Date - Acquired hypothyroidism 05/10/2018 On levothyroxine - Coronary artery disease involving ramona coronary artery of ramona heart without angina pectoris 06/27/2017 ASA, plavix - CVA (cerebral vascular accident) ([facility]) 06/2012 - Embolus of femoral artery ([facility]) 06/25/2017 on right - Episode of recurrent major depressive disorder ([facility]) 05/10/2018 Duloxetine,wellbutrin, varenicline - Essential hypertension [...] apnea) 05/10/2018 - PVD (peripheral vascular disease) ([facility]) 05/10/2018 - Snoring PAST SURGICAL HISTORY Procedure Laterality Date - APPENDECTOMY 1998 - COLONOSCOP W/ OR W/O BRSH SPEC 03/10/2021 - EGD W/O OR W/BRUSH/WASH 03/10/2021 - INSERT CATH,ART,PERCUT,SHORTTERM 10/13/2012 RIGHT - PAST SURGICAL HISTORY OF 2008 cardiac stents x 3 placed - PAST SURGICAL HISTORY OF 06/25/2017 Rt CAR INSPECTION AND REPAIR MANAGER embolectomy - THROMBOENDARTECTMY NECK,NECK INCIS 10/13/2012 LEFT [...] No chest pain NEUROLOG (more content not included)...[facility]11-22-2021 NoteHNO ID: [id number] Author: Hank Brown MD Service: Vascular Surgery Author Type: Physician Type: Progress Notes Filed: 07/24/2021 8:19 AM Note Text: NAME: ANGELES LARIOS CLINIC NO: [id number] DATE OF SERVICE: 07/15/2021 DATE OF : 1960 She has had no new events. She has had no strokes, ministrokes or amaurosis fugax. Her carotid duplex still shows 60-79% on the right and widely patent on the left. Impression/Plan: Otherwise, she is doing well and we will plan on checking her again in one year's time. Hank Brown M.D. SPL/089 Audio #: [id number] Date Dictated: 07/19/2021 12:23:30 Date Typed: 07/23/2021 09:30:40 Date Revised:[facility]11-22-2021 NoteHNO ID: [id number] Author: Hank Brown MD Service: ? Author [...] embolic events. [facility] , V[facility] Thor[facility] [place] DEPARTMENT OF VASCULAR SURGERY OUTPATIENT VISIT DATE [...] artery disease) - Coronary artery disease involving ramona coronary artery of ramona heart without angina pectoris 06/27/2017 ASA, plavix - CVA (cerebral vascular accident) ([facility]) 06/2012 - Embolus of femoral artery ([facility]) 06/25/2017 on right - Episode of recurrent major depressive disorder ([facility]) 05/10/2018 Duloxetine,wellbutrin, varenicline - Essential hypertension [...] apnea) 05/10/2018 - PVD (peripheral vascular disease) ([facility]) 05/10/2018 - Snoring PAST SURGICAL HISTORY Procedure Laterality Date - APPENDECTOMY 1998 - COLONOSCOP W/ OR W/O BRSH SPEC 03/10/2021 - EGD W/O OR W/BRUSH/WASH 03/10/2021 - INSERT CATH,ART,PERCUT,SHORTTERM 10/13/2012 RIGHT - PAST SURGICAL HISTORY OF 2008 cardiac stents x 3 placed - PAST SURGICAL HISTORY OF 06/25/2017 Rt CAR INSPECTION AND REPAIR MANAGER embolectomy - THROMBOENDARTECTMY NECK,NECK INCIS 10/13/2012 LEFT [...] antegrade flow no (more content not included)... [facility]10-22-2021 NoteHNO ID: [id number] Author: Leonard Urena MD Service: ? Author [...] artery disease) - Coronary artery disease involving ramona coronary artery of ramona heart without angina pectoris 06/27/2017 ASA, plavix - CVA (cerebral vascular accident) ([facility]) 06/2012 - Embolus of femoral artery ([facility]) 06/25/2017 on right - Episode of recurrent major depressive disorder ([facility]) 05/10/2018 Duloxetine,wellbutrin, varenicline - Essential hypertension [...] apnea) 05/10/2018 - PVD (peripheral vascular disease) ([facility]) 05/10/2018 - Snoring PAST SURGICAL HISTORY Procedure Laterality Date - APPENDECTOMY 1998 - COLONOSCOP W/ OR W/O BRSH SPEC 03/10/2021 - EGD W/O OR W/BRUSH/WASH 03/10/2021 - INSERT CATH,ART,PERCUT,SHORTTERM 10/13/2012 RIGHT - PAST SURGICAL HISTORY OF 2008 cardiac stents x 3 placed - PAST SURGICAL HISTORY OF 06/25/2017 Rt CAR INSPECTION AND REPAIR MANAGER embolectomy - THROMBOENDARTECTMY NECK,NECK INCIS 10/13/2012 LEFT [...] URINARY: No dark ur (more content not included)...[facility]08-24-2021 NoteHNO ID: [id number] Author: Leonard Urena MD Service: ? Author [...] pale stool. She was referred by her sash finisher in [place] Dr. Gutierrez. She has a history of anemia and has been on iron supplementation. She has fatigue and intermittent nausea. EGD in 03/10/[address] Charley De La Fuente in [place]: Normal Biopsies were not done Colonoscopy 03/10/2021 [...] artery disease) - Coronary artery disease involving ramona coronary artery of ramona heart without angina pectoris 06/27/2017 ASA, plavix - CVA (cerebral vascular accident) ([facility]) 06/2012 - Embolus of femoral artery ([facility]) 06/25/2017 - Episode of recurrent major depressive disorder ([facility]) 05/10/2018 Duloxetine,wellbutrin, varenicline - Essential hypertension [...] apnea) 05/10/2018 - PVD (peripheral vascular disease) ([facility]) 05/10/2018 - Snoring PAST SURGICAL HISTORY Procedure Laterality Date - APPENDECTOMY 1998 - COLONOSCOP W/ OR W/O BRSH SPEC 03/10/2021 - EGD W/O OR W/BRUSH/WASH 03/10/2021 - INSERT CATH,ART,PERCUT,SHORTTERM 10/13/2012 RIGHT - PAST SURGICAL HISTORY OF 2008 cardiac stents x 3 placed - PAST SURGICAL HISTORY OF 06/25/2017 Rt CAR INSPECTION AND REPAIR MANAGER embolectomy - THROMBOENDARTECTMY NECK,NECK INCIS 10/13/2012 LEFT [...] CARDIOVASCULAR: No chest pain (more content not included)...[facility]08-24-2021 NoteHNO ID: [id number] Author: Bonifacio Copeland MD Service: ? Author [...] artery disease) - Coronary artery disease involving ramona coronary artery of ramona heart without angina pectoris 06/27/2017 ASA, plavix - CVA (cerebral vascular accident) ([facility]) 06/2012 - Embolus of femoral artery ([facility]) 06/25/2017 - Episode of recurrent major depressive disorder ([facility]) 05/10/2018 Duloxetine,wellbutrin, varenicline - Essential hypertension [...] apnea) 05/10/2018 - PVD (peripheral vascular disease) ([facility]) 05/10/2018 - Snoring PAST SURGICAL HISTORY Procedure Laterality Date - APPENDECTOMY 1998 - COLONOSCOP W/ OR W/O BRSH SPEC 03/10/2021 - EGD W/O OR W/BRUSH/WASH 03/10/2021 - INSERT CATH,ART,PERCUT,SHORTTERM 10/13/2012 RIGHT - PAST SURGICAL HISTORY OF 2008 cardiac stents x 3 placed - PAST SURGICAL HISTORY OF 06/25/2017 Rt CAR INSPECTION AND REPAIR MANAGER embolectomy - THROMBOENDARTECTMY NECK,NECK INCIS 10/13/2012 LEFT [...] Eyes: Normal sclera Assess (more content not included)...[facility]05-25-2017 Fall risk [id number] Work Phone: Evaluation note* Diagnosis Onset Date Resolution Status Iron deficiency anemia due to chronic blood loss chronic Macrocytosis chronic Iron deficiency anemia due to chronic blood loss chronic Macrocytosis [facility] Work Phone: Evaluation note* Diagnosis Onset Date Resolution Status Iron deficiency anemia due to chronic blood loss chronic Macrocytosis [facility] Work Phone: Evaluation note* Diagnosis Onset Date Resolution Status Iron deficiency anemia due to chronic blood loss chronic Macrocytosis chronic BMI 32.0-32.9,adult acute Sleep apnea acute Unintentional weight loss ac [place] Nicotine dependence chronic [facility] Work Phone: Evaluation noteNo assessment information available [facility] Work Phone: Evaluation note* Diagnosis Onset Date Resolution Status Admit Date Iron deficiency anemia due t o chronic blood loss chronic April 2:38pm Macrocytosis chronic April 2:38pm Chronic GI bleeding chronic Septe mb2024 2:45pm Iron deficiency anemia deleted Se pt2024 2:45pm [facility] Work Phone: Instructions* Name Dates Details How to access [employer] Indication:Abnormal glucose tolerance test Start:30-Aug-2015 Instruction Type:Patient Education How to access [employer] online - Detail Indication:Abnormal glucose tolerance test [...] for referral (narrative)No reason for referral information availableLake [facility] Work Phone: Summary Purpose Family History No [...] Yes March 09, 2021 12:10am Power of Health Outreach Worker Yes March 09 12:10am Advance Directive Response Recorded Date/ Time Advance Directives No December 12 10:01am Living Will Yes March 08, 2021 11:10pm Power of Health Outreach Worker Yes March 08 11:10pm Advance Directive Response Recorded Date/ Time Advance Directives on File No February 25, 2019 1:43pm Living Will No February 25, 2019 1 :43pm Do you have a Healthcare Power of Health Outreach Worker? No February 25, 2019 1:43pm Living Will Yes September 26 9:40pm Do you have a Healthcare Power of Health Outreach Worker? Yes September 26, 2024 9:40pm Name of Medical Power of Health Outreach Worker - DORI September 26, 2024 9:40pm Advance Directives No December 12 020 11:01am Advance Directive Response Recorded Date/ Time Advance Directives on File No February 25, 2019 1:43pm Living Will No February 25, 2019 1 :43pm Do you have a Healthcare Power of Health Outreach Worker? No February 25, 2019 1:43pm Advance Directives [...] section and content) DATE CREATED AUTHOR 02/16/2018 [facility] DATE CREATED AUTHOR AUTHOR'S ORGANIZ ATION 09/16/2020 [facility] DATE CREATED AUTHOR AUTHOR'S ORGANIZ ATION 10/06/2021 [facility] DATE CREATED AUTHOR AUTHOR'S ORGANIZ ATION 01/25/2022 [facility] DATE CREATED AUTHOR AUTHOR'S ORGANIZ ATION 05/07/2025 [facility] Goals (unrecognized section and content) Goals [...] Provider, Referring Provider Active Ifrah Sommer NP, VACCINES SOLUTIONS SPECIALIST-C Attending Provider Active Team Status: Active Member [...] BE BASED ON THE PRIMARY CLINICAL RECORDS. [employer] provides no warranty or guarantee of the accuracy or completeness of information in this document.
[2025-05-26 01:07] LABS: FOLATES,SERUM (FOLIC ACID) 20.00 ng/mL (4.60-34.80)
--- NOTE | 2025-05-26 01:12 | PCM.HOSP.N ---
Hospitalist Note Hgb s/p 1unit PRBC 6.7, up from 6.1 on admission. Additional type/cross and transfuse 2u PRBCs ordered. Currently her SBP is 120s, HR 80s.
[2025-05-26 03:39] LABS: Ferritin 45 ng/mL (22-378); Iron 46 ug/dL (50-170); Iron Binding Capacity,Total 327 ug/dL (250-450); Iron Binding Capacity,Unsat 281 ug/dL (228-428); Vitamin B12 190 pg/mL (180-914)
[2025-05-26] MEDS: 0.9% Saline Lock 10 ML Syringe IV ×2 (04:25→06:22)
[2025-05-26 08:05] LABS: Hematocrit 29.7 % (37-47); Hemoglobin 9.3 g/dL (12.0-15.0); Immature Granulocytes Count 0.020 X10^3/uL (0.0-0.0); Mean Corp Hgb Conc 31.3 g/dL (32-36); Mean Corpuscular Volume 103.1 fL (81-99); Mean Platelet Vol. 10.8 fl (6.2-12.0); NRBC Flagged by Analyzer 0 % (0-5); POSITIVE MORPHOLOGY YES; Platelet Count 198 K/mm3 (150-450); RBC Distribution Width CV 26.7 % (11.6-14.6); RBC Distribution Width SD 93.1 fl (35.1-43.9); Red Blood Count 2.88 M/mm3 (4.2-5.4); White Blood Count 6.0 K/mm3 (4.4-11.0)
[2025-05-26 08:11] LABS: Differential Indicated SCAN CRITERIA MET
[2025-05-26 08:38] LABS: AST(SGOT) 14 U/L (<=31); Alanine Aminotransfer ALT/SGPT 9 U/L (<=34); Albumin, Serum 3.0 g/dL (3.4-4.8); Alkaline Phosphatase 66 U/L (35-104); Anion Gap 10 (5-15); BUN 13 mg/dL (4-19); BUN/Creat Ratio 22.8 RATIO (10-20); Calcium,Total 8.1 mg/dL (7.6-11.0); Carbon Dioxide 19.8 mmol/L (21.0-32.0); Chloride 110 mmol/L (98-108); Cholesterol 108 mg/dL (<=200); Estimated Creatinine Clearance 76.61 ml/min (50-250); Globulin 1.7 g/dL (2.2-4.2); Glucose 98 mg/dL (70-99); Low Density Lipoprotein Calc. 51 mg/dL; Potassium 4.0 mmol/L (3.3-5.1); Triglycerides 119 mg/dL; Very Low Density Lipoprotein 24 mg/dL (5-40); cholesterol:hdl ratio screen 3.23
[2025-05-26 08:47] LABS: Anisocytosis 2+; Macrocytosis 1+; Polychromasia 2+
--- NOTE | 2025-05-26 11:15 | EX.PCM.CON.S ---
Assessment & Plan Assessment/Plan (1) DVT (deep venous thrombosis): (2) Acute anemia: PLAN: Plan She has an acute unprovoked L infrapopliteal DVT complicated by acute anemia precluding anticoagulation. She is a candidate for IVC filter insertion. I discussed with patient IVC filter insertion procedure details including risks, benefits, alternatives (e.g. close monitoring for propagation with serial duplex and filter placement only if propagation occurs), and recovery. After discussion, she does elect to proceed with IVC filter insertion. 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 HPI Consult Data Date of Consult: 05/26/25 HPI Narrative HPI Narrative: STELLA STANTON, is a 65 F who presented to the [facility] ER yesterday evening after outpatient venous doppler demonstrated acute LLE DVT and outpatient labs suggested significant anemia with Hgb 6.1. She was admitted for management. She reports that she developed sudden L calf pain and swelling which is what led to the outpatient venous doppler. She reports no inciting injury, illness, travel or otherwise abnormally decreased activity; she denies any history of malignancy or known clotting disorder. She does have a history of chronic anemia and prior GI bleeding; Hgb outpatient was 6.1 yesterday; she is scheduled to undergo scope with GI today. She reports prior history of RLE arterial occlusion treated surgically many years ago. She cannot recall any other prior venous clots. [facility] Medical History Tobacco use disorder, continuous Iron deficiency anemia due to chronic blood loss History of stress test Depression Hypothyroidism GERD (gastroesophageal reflux disease) Smoker Coronary artery disease Hypertension DVT (deep venous thrombosis) TIA (transient ischemic attack) Anemia Macrocytosis Nicotine dependence Chronic GI bleeding Peripheral vascular disease Non-rheumatic aortic stenosis Dysarthria Atherosclerosis of coronary artery of [place] heart without angina pectoris Essential (primary) hypertension Encounter for screening for lung cancer Bilateral carotid artery stenosis Pernicious anemia Sleep apnea IBS (irritable bowel syndrome) History of DVT (deep vein thrombosis) Diarrhea Nausea & vomiting LEFT ARM SURGERY BLOOD CLOT Gastrointestinal bleed CVA (cerebral vascular accident) Hyperlipidemia Fibromyalgia Expressive language disorder Dysarthria Home Medications ?Medication ?Instructions ?Recorded ?Last Taken ?Type nitroglycerin 0.4 mg sublingual 0.4 mg sublingual Q5-15M PRN chest 10/14/17 2 Months Ago Rx tablet pain #25 tabs ~10/03/17 levothyroxine 25 mcg tablet 25 mcg PO DAILY thyroid 11/30/17 03/08/21 History rosuvastatin 40 mg tablet 40 mg PO QDAY hld 04/09/18 Unknown History acetaminophen 500 mg tablet 1,000 mg PO Q6H PRN Headache 03/09/21 Unknown History (Tylenol Extra Strength) aspirin 81 mg tablet,delayed 81 mg PO DAILY blood thinner 07/26/21 Unknown History release (Adult Low Dose Aspirin) famotidine 40 mg tablet 40 mg PO DAILY gerd 07/26/21 Unknown History ferrous sulfate 325 mg (65 mg 650 mg PO BID iron 04/15/23 Unknown History iron) tablet duloxetine 60 mg capsule,delayed 60 mg PO BID depression 09/30/23 Unknown History release (Cymbalta) baclofen 10 mg tablet 10 mg PO DAILY spasms 09/26/24 Unknown History gabapentin 100 mg capsule 100 mg PO DAILY pain 09/26/24 Unknown History vitamins A,C,G-hfte-okfhpz 4,296 1 cap PO DAILY supplement 09/26/24 Unknown History mcg-226 mg-90 mg capsule (PreserVision AREDS) albuterol sulfate 90 mcg/actuation 2 puff inhalation Q6H PRN 09/28/24 Unknown Rx aerosol inhaler shortness of breath or wheezing #8.5 grams duloxetine 30 mg capsule,delayed 30 mg PO BID 05/25/25 Unknown History release Allergy/AdvReac Type Severity Reaction Status Date / Time atorvastatin (From Lipitor) AdvReac Severe Other Verified 05/25/25 17:49 codeine AdvReac Severe Other Verified 05/25/25 17:49 Family History Father , at age 38, from [place] Myocardial infarction cardiomopathy Mother Atrial fibrillation Hypertension Hyperlipidemia Diabetes Brother CAD (coronary artery disease) cardiomopathy Myocardial infarction Sister cardiomopathy Surgical History History of endoscopy S/P tubal ligation H/O cardiac catheterization History of cataract removal with insertion of prosthetic lens 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) Hx of bilateral cataract extraction History of coronary artery stent placement (12/20/08) History of left-sided carotid endarterectomy (01/2019) Hx of appendectomy Social History adopted: No household members: spouse and family Smoking Status: Current every day smoker tobacco type: cigarettes Tobacco: How many years used: 50 Electronic Cigarette Use: not used second hand exposure: Yes quit status: has quit before alcohol intake: former year quit: 2017 substance use type: does not use caffeine: Yes Type: coffee Number of servings: 2 what type of physical activity do you participate in: none seatbelt use: sometimes do you feel safe at home: Yes Physical Exam Const alert, oriented x3 and no apparent distress General Appearance: cooperative and comfortable HEENT normocephalic, head/scalp atraumatic, hearing grossly normal bilaterally, external ears normal and external nose normal Eyes General Eye: normal appearance of both eyes Neck General: normal visual inspection and trachea midline Resp normal respiratory effort and no use of accessory muscles Effort and Inspection: able to speak in complete sentences; Negative for labored, grunting or stridor Cardio regular rate and regular rhythm Extremity Extremity Narrative: LLE edema Neuro oriented x3, moves all extremities and no focal motor deficits Speech: speech normal Psych mental status grossly normal Appearance: grossly normal Attitude: calm and engaged Activity / Motor Behavior: appropriate eye contact Speech: normal speech Mood & Affect: euthymic mood Judgement: judgement good Lab / Micro Data 05/26/25 07:46 05/26/25 07:46 Labs: Laboratory Results - last 24 hr 05/25/25 17:55: PT 14.0, INR 1.1, APTT 36.5 H, Troponin T High Sens 28 H 05/25/25 18:34: Blood Type O POSITIVE, Antibody Screen NEGATIVE, Crossmatch See Detail 05/25/25 18:34: Crossmatch See Detail 05/25/25 20:50: Magnesium 2.3 H, Troponin T Hi Sens 2 Hr 26 H 05/25/25 23:59: Hgb 6.7 L, Hct 22.5 L, Iron 46 L, TIBC 327, Iron Saturation 14.1, Unsaturated IBC 281, Ferritin 45, Troponin T Hi Sens 4Hr 25 H, Vitamin B12 190, Serum Folate 20.00 05/26/25 07:46: WBC 6.0, RBC 2.88 L, Hgb 9.3 L, Hct 29.7 L, MCV 103.1 H D, MCH 32.3 H, MCHC 31.3 L D, RDW Std Deviation 93.1 H, RDW Coeff of Dao 26.7 H, Plt Count 198, MPV 10.8, Immature Gran % (Auto) 0.300, Neut % (Auto) 74.7 H, Lymph % (Auto) 14.6 L, [place] % (Auto) 8.3, Eos % (Auto) 1.3, Baso % (Auto) 0.8, Absolute Neuts (auto) 4.5, Absolute Lymphs (auto) 0.88, Nucleated RBC % 0, Polychromasia 2+, Anisocytosis 2+, Macrocytosis 1+, Sodium 139, Potassium 4.0, Chloride 110 H, Carbon Dioxide 19.8 L, Anion Gap 10, BUN 13, Creatinine 0.56 L, Estim Creat Clear Calc 76.61, Est GFR (MDRD) Non-Af 100, BUN/Creatinine Ratio 22.8 H, Glucose 98, Calcium 8.1, Total Bilirubin 0.52, AST 14, ALT 9, Alkaline Phosphatase 66, Total Protein 4.8 L, Albumin 3.0 L, Globulin 1.7 L, Albumin/Globulin Ratio 1.8, Triglycerides 119, Cholesterol 108, LDL Cholesterol, Calc 51, VLDL Cholesterol 24, HDL Cholesterol 33 L, Cholesterol/HDL Ratio 3.23 Micro: Microbiology 05/25/25 20:50 Stool Stool Occult Blood (MARQUEZ) - Final Charges/Coding Visit Charges Inpatient E&M: 02630 Init Hosp L1
[2025-05-26] MEDS: Lactated Ringers 1,000 ML 15 ML IV (11:34)
--- NOTE | 2025-05-26 11:34 | PCM.PRE.AN2 ---
ASA Classification* ASA Classification ASA Classification: 3 Assessment & Plan Anesthesia* Anesthesia Assessment Anesthesia Assessment: Discussed sedation and/or anesthesia options, risks, benefits, and alternatives with patient/parents/legal guardian/POA. Questions invited. The patient/parents/legal guardian/POA seems to understand and agrees to proceed with anesthesia plan. Reviewed the physical assessment, medical history, allergy history and patient home medications list prior to surgery/procedure/anesthetic and documented any changes. Performed airway and anesthesia risk assessments. Anesthesia Type Anesthesia Type: MAC Anesthesia Focused Assessment* Temperature: 97.8 F Pulse Rate: 63 Blood Pressure: 116/78 Respiratory Rate: 17 Pulse Ox: 98 Airway Assessment Mouth opens: >3 cm Mallampati Score: II Labs Anesthesia Preop lab: CBC WBC, (4.4-11.0) 6.0 K/mm3 Today, 07:46 RBC, (4.2-5.4) 2.88 M/mm3 L Today, 07:46 Hgb, (12.0-15.0) 9.3 g/dL L Today, 07:46 Hct, (37-47) 29.7 % L Today, 07:46 Plt Count, (150-450) 198 K/mm3 Today, 07:46 CHEMISTRY Potassium, (3.3-5.1) 4.0 mmol/L Today, 07:46 Sodium, (133-145) 139 mmol/L Today, 07:46 Magnesium, (1.5-2.2) 2.3 mg/dL H 05/25/25, 20:50 Phosphorus, (2.5-4.9) 3.9 mg/dL 09/28/24, 05:05 BUN, (4-19) 13 mg/dL Today, 07:46 Creatinine, (0.70-1.20) 0.56 mg/dL L Today, 07:46 Glucose, (70-99) 98 mg/dL Today, 07:46 POC Glucose, (74-106) 129 mg/dL H 09/26/24, 15:56 TSH, (0.300-4.200) 2.440 uIU/mL 12/22/24, 10:06 COAG PT, (11.7-14.9) 14.0 SECONDS 05/25/25, 17:55 Pre-Assessment Diagnosis/Proposed Procedure Planned Operative Procedure(s): EGD Anesthesia History 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 When Was Last Pacemaker Check QUESTION #4 FULL TEXT: You/Your Family Experience fever (hyperthermia) with Anesthesia Last Oral Intake Last Oral intake: Last Oral Intake NPO since 00:00 05/26/25 09:09 Meds taken in AM with sips of No 05/26/25 09:09 water? Meds patient instructed to take am of surgery PONV PONV - public works commissioner: PONV - public works commissioner Female HX of Motion Sickness HX of N/V After Surgery Non-Smoker Duration of Surgery greater than 60 minutes Number of Risk Factors PONV Score Height & Weight Height & Weight: Anesthesia: Height & Weight Height 5 ft 7 in 05/26/25 10:30 Weight: 85.4 kg 05/26/25 10:30 Body Mass Index (BMI) 29.5 05/26/25 09:09 Respiratory Assessment Respiratory Assessment - public works commissioner: Respiratory Tract Infection Hx - public works commissioner Hx Respiratory Tract Infection No 05/26/25 09:09 STOP Sleep Apnea STOP Sleep Apnea - public works commissioner: STOP Sleep Apnea - public works commissioner Hx Hypertension Yes 05/25/25 22:47 Hx Sleep Apnea Yes 05/25/25 22:47 CPAP No 05/25/25 22:47 BIPAP No 05/25/25 22:47 Do you snore loudly (louder than talking or can be heard Do you often feel tired/ fatigued/ sleepy during daytime? Has anyone observed you stop breathing during sleep? STOP Results Positive 05/25/25 22:47 QUESTION #5 FULL TEXT : Do you snore loudly (louder than talking or can be heard through closed doors)? 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 Specify any problems Hx of Preganancy in last 3 No 05/25/25 22:47 Months Nurse Filling Out Transfusion RWALKER 05/25/25 22:47 & Questions: Date: 05/25/25 05/25/25 22:47 Time: 22:58 05/25/25 22:47 Patient unable to answer at this time (ie. confused, unrespo /Reproduction History /Reproductive History - public works commissioner: /Reproductive Hx- public works commissioner Hx Now No 05/26/25 09:09 Gestational Age (in weeks): EDC: Hx Hx Para Hx Section SAB No 05/26/25 09:09 Active Medications Active Medications: Current Medications Generic Name Dose Route Start Last Admin Trade Name Freq PRN Reason Stop Dose Admin Acetaminophen 650 mg 05/25/25 22:46 Acetaminophen 325 Mg Tablet PO Q4H PRN PRN Fever, pain 1-06/02 Al Hydroxide/Mg Hydroxide 30 ml 05/25/25 22:46 Mag Hydrox/Al Hydrox/Simeth 30 Ml Udc PO Q6H PRN PRN Gastric Burning Atorvastatin Calcium 80 mg 05/25/25 23:15 05/25/25 23:47 Atorvastatin Calcium 80 Mg Tablet PO 80 mg QHS EMMA Administration Baclofen 10 mg 05/26/25 10:00 Baclofen 10 Mg Tablet PO DAILY EMMA Duloxetine HCl 30 mg 05/25/25 22:46 05/25/25 23:47 Duloxetine Hcl 30 Mg Capsule PO 30 mg BID EMMA Administration Duloxetine HCl 60 mg 05/25/25 22:46 05/25/25 23:47 Duloxetine Hcl 60 Mg Capsule PO 60 mg BID EMMA Administration Ferrous Sulfate 325 mg 05/26/25 08:00 Ferrous Sulfate 325 Mg Tablet PO BIDCM EMMA Gabapentin 100 mg 05/26/25 10:00 Gabapentin 100 Mg Capsule PO DAILY EMMA Guaifenesin 20 ml 05/25/25 22:46 Guaifenesin 10 Ml Udc (200mg/10ml) PO Q4H PRN PRN COUGH Hydralazine HCl 10 mg 05/25/25 22:46 Hydralazine 20 Mg/Ml Vial IV Q4H PRN PRN SBP > 160 Protocol Pantoprazole Sodium 40 mg/ 100 mls @ 330 mls/hr 05/25/25 22:46 05/26/25 00:51 Sodium Chloride IV Infused Q12 EMMA Infusion Sodium Chloride 500 mls @ 15 mls/hr 05/25/25 22:48 IV PRN PRN Blood Transfusion Sodium Chloride 250 mls @ 15 mls/hr 05/25/25 22:48 IV .[id number] PRN Saline Flush Sodium Chloride 250 mls @ 15 mls/hr 05/25/25 22:48 IV .[id number] PRN Additional IVPB Infusion Lactated Ringer's 1,000 mls @ 15 mls/hr 05/26/25 11:45 05/26/25 11:34 IV 15 mls/hr .Q48H EMMA Administration Levothyroxine Sodium 25 mcg 05/26/25 06:00 05/26/25 04:24 Levothyroxine 25 Mcg Tablet PO 25 mcg DAILY@0600 EMMA Administration Melatonin 3 mg 05/25/25 22:46 Melatonin 3 Mg Tablet PO QHS PRN PRN INSOMNIA Sodium Chloride 10 - 40 ml 05/25/25 22:48 05/26/25 06:22 0.9% Saline Lock 10 Ml Syringe IV 10 ml UD PRN Administration SALINE FLUSH PFSH Medical History Tobacco use disorder, continuous Iron deficiency anemia due to chronic blood loss History of stress test Depression Hypothyroidism GERD (gastroesophageal reflux disease) Smoker Coronary artery disease Hypertension DVT (deep venous thrombosis) TIA (transient ischemic attack) Anemia Macrocytosis Nicotine dependence Chronic GI bleeding Peripheral vascular disease Non-rheumatic aortic stenosis Dysarthria Atherosclerosis of coronary artery of [place] heart without angina pectoris Essential (primary) hypertension Encounter for screening for lung cancer Bilateral carotid artery stenosis Pernicious anemia Sleep apnea IBS (irritable bowel syndrome) History of DVT (deep vein thrombosis) Diarrhea Nausea & vomiting LEFT ARM SURGERY BLOOD CLOT Gastrointestinal bleed CVA (cerebral vascular accident) Hyperlipidemia Fibromyalgia Expressive language disorder Dysarthria Home Medications ?Medication ?Instructions ?Recorded ?Last Taken ?Type nitroglycerin 0.4 mg sublingual 0.4 mg sublingual Q5-15M PRN chest 10/14/17 2 Months Ago Rx tablet pain #25 tabs ~10/03/17 levothyroxine 25 mcg tablet 25 mcg PO DAILY thyroid 11/30/17 03/08/21 History rosuvastatin 40 mg tablet 40 mg PO QDAY hld 04/09/18 Unknown History acetaminophen 500 mg tablet 1,000 mg PO Q6H PRN Headache 03/09/21 Unknown History (Tylenol Extra Strength) aspirin 81 mg tablet,delayed 81 mg PO DAILY blood thinner 07/26/21 Unknown History release (Adult Low Dose Aspirin) famotidine 40 mg tablet 40 mg PO DAILY gerd 07/26/21 Unknown History ferrous sulfate 325 mg (65 mg 650 mg PO BID iron 04/15/23 Unknown History iron) tablet duloxetine 60 mg capsule,delayed 60 mg PO BID depression 09/30/23 Unknown History release (Cymbalta) baclofen 10 mg tablet 10 mg PO DAILY spasms 09/26/24 Unknown History gabapentin 100 mg capsule 100 mg PO DAILY pain 09/26/24 Unknown History vitamins A,C,B-pqyz-qpvzaz 4,296 1 cap PO DAILY supplement 09/26/24 Unknown History mcg-226 mg-90 mg capsule (PreserVision AREDS) albuterol sulfate 90 mcg/actuation 2 puff inhalation Q6H PRN 09/28/24 Unknown Rx aerosol inhaler shortness of breath or wheezing #8.5 grams duloxetine 30 mg capsule,delayed 30 mg PO BID 05/25/25 Unknown History release Allergy/AdvReac Type Severity Reaction Status Date / Time atorvastatin (From Lipitor) AdvReac Severe Other Verified 05/25/25 17:49 codeine AdvReac Severe Other Verified 05/25/25 17:49 Family History Father , at age 38, from [place] Myocardial infarction cardiomopathy Mother Atrial fibrillation Hypertension Hyperlipidemia Diabetes Brother CAD (coronary artery disease) cardiomopathy Myocardial infarction Sister cardiomopathy Surgical History History of endoscopy S/P tubal ligation H/O cardiac catheterization History of cataract removal with insertion of prosthetic lens 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) Hx of bilateral cataract extraction History of coronary artery stent placement (12/20/08) History of left-sided carotid endarterectomy (01/2019) Hx of appendectomy Social History adopted: No household members: spouse and family Smoking Status: Current every day smoker tobacco type: cigarettes Tobacco: How many years used: 50 Electronic Cigarette Use: not used second hand exposure: Yes quit status: has quit before alcohol intake: former year quit: 2017 substance use type: does not use caffeine: Yes Type: coffee Number of servings: 2 what type of physical activity do you participate in: none seatbelt use: sometimes do you feel safe at home: Yes Review of Systems (Anesthesia) ROS Narrative System reviewed and no additional complaints, except as documented.
--- NOTE | 2025-05-26 12:24 | CASEMGMT ---
RN CM note: RN CM to room to complete initial assessment. Pt is out of room @ this time for procedure. Assessment to be completed at a later time. Alice BSN MURTAZA CM
--- NOTE | 2025-05-26 12:45 | EGD_PTH ---
PATIENT: STELLA STANTON LOC: [facility] U#:[id number] AGE/SX: 65/F ROOM: [facility] RE05/25/[address]: Dr. Alanna Ruiz MD : 1960 BED: 1 DIS: 05/27/2025 SPEC #: [id number] RECD: 05/26/25 15:43 STATUS: DESTIN REBryant #: [id number] RIP: 05/26/25 12:[address]: John Villa DEPT: SURGICAL PATHOLOGY RECD BY: Geovanny Del Valle ENTERED: 05/29/25 10:19 SP TYPE: EGD BIOPSY OTHR DR: MD Dr. Stephen Talbert MD Dr. Nana Yaa Koram, MD Dr. Prakash Chand, MD Dr. Tai Chi Kwok, MD Heather Evans DIRECTOR RISK-C Quita Moreno DIRECTOR RISK-C KISHA Christensen Tissues: A - Gastric mucous membrane Procedures: Immunohistochemical Stains Surgery Specimen Level IV IHC Stain ADDITIONAL HEADER OPERATION: EGD, biopsy PRE-OP DIAGNOSIS: Chronic GI bleeding, anemia, DVT TISSUE SUBMITTED: A- Gastric ulcer biopsy MICROSCOPIC DIAGNOSIS A. Stomach, gastric ulcer, biopsy: * Oxyntic mucosa with erosion and focal necrosis consistent with ulceration, demonstrating features of reactive gastropathy. * IHC for pankeratin highlights surface and pit epithelium without architectural evidence of malignancy. * IHC negative for H. pylori organisms. MICROSCOPIC DESCRIPTION Slides are reviewed. All matched controls reacted appropriately. These tests were developed and their performance characteristics determined by [facility]. They may not have been cleared or approved by the U.[place]. Food and Drug Administration. The FDA has determined that such clearance or approval is not necessary. The above immunohistochemical markers and/or special stains have been reviewed by the Pathologist. GROSS DESCRIPTION A. Received in fixative is one container labeled with the patient's name and designated Gastric ulcer biopsy. The specimen consists of two irregular fragments of alvarez tissue, each measuring 0.4 cm. The specimen is totally submitted in one cassette. [place] 05/29/2025 CPT:60962 ,[id number]
--- NOTE | 2025-05-26 12:46 | HP.PCM_ITS ---
[facility] - General General Date of Admission: 05/25/25 Date of Service: 05/26/25 Chief Complaint: Chest pain, Dyspnea, Low Hgb outpatient. HPI Narrative STELLA STANTON, is a 65 F who presents with generalized fatigue and anemia that was noticed today. Patient saw her primary care physician who ordered outpatient labs as well as x-ray and venous Doppler of her extremities. Patient was noted to have a DVT in her left posterior tibial vein. Patient was ordered a prescription for Eliquis. Patient did not start the Eliquis because her hemoglobin was low at 6.1. Patient was then told to come to the emergency department. Patient states she feels like she is retaining fluid. Patient admits to decreased urine output. Patient states she feels short of breath at times. [facility] Medical History Tobacco use disorder, continuous Iron deficiency anemia due to chronic blood loss History of stress test Depression Hypothyroidism GERD (gastroesophageal reflux disease) Smoker Coronary artery disease Hypertension DVT (deep venous thrombosis) TIA (transient ischemic attack) Anemia Macrocytosis Nicotine dependence Chronic GI bleeding Peripheral vascular disease Non-rheumatic aortic stenosis Dysarthria Atherosclerosis of coronary artery of teller heart without angina pectoris Essential (primary) hypertension Encounter for screening for lung cancer Bilateral carotid artery stenosis Pernicious anemia Sleep apnea IBS (irritable bowel syndrome) History of DVT (deep vein thrombosis) Diarrhea Nausea & vomiting LEFT ARM SURGERY BLOOD CLOT Gastrointestinal bleed CVA (cerebral vascular accident) Hyperlipidemia Fibromyalgia Expressive language disorder Dysarthria Home Medications ?Medication ?Instructions ?Recorded ?Last Taken ?Type nitroglycerin 0.4 mg sublingual 0.4 mg sublingual Q5-1 5M PRN chest 10/14/17 2 Months Ago Rx tablet pain #25 tabs ~10/03/17 levothyroxine 25 mcg tablet 25 mcg PO DAILY thyroid 03/08/21 History rosuvastatin 40 mg tablet 40 mg PO QDAY hld 04/09/18 U nknown History acetaminophen 500 mg tablet 1,000 mg PO Q6H PRN Headac he 03/09/21 Unknown History (Tylenol Extra Strength) aspirin 81 mg tablet,delayed 81 mg PO DAILY blood thin ner 07/26/21 Unknown History release (Adult Low Dose Aspirin) famotidine 40 mg tablet 40 mg PO DAILY gerd 07/26/21 Unknown History ferrous sulfate 325 mg (65 mg 650 mg PO BID iron 04/15 Unknown History iron) tablet duloxetine 60 mg capsule,delayed 60 mg PO BID depressi on 09/30/23 Unknown History release (Cymbalta) baclofen 10 mg tablet 10 mg PO DAILY spasms Unknown History gabapentin 100 mg capsule 100 mg PO DAILY pain 5 Unknown History vitamins A,C,D-jbmt-rfeobr 4,296 1 cap PO DAILY supple ment 09/26/24 Unknown History mcg-226 mg-90 mg capsule (PreserVision AREDS) albuterol sulfate 90 mcg/actuation 2 puff inhalation Q 6H PRN 09/28/24 Unknown Rx aerosol inhaler shortness of breath or wheez ing #8.5 grams duloxetine 30 mg capsule,delayed 30 mg PO BID 05/25/25 Unknown History release Allergy/AdvReac Type Severity Reaction Status Date / Time atorvastatin (From Lipitor) AdvReac Severe Other Verified 05/25/25 17:49 codeine AdvReac Severe Other Verified 05/25/25 17:49 Family History Father , at age 38, from [place] Myocardial infarction cardiomopathy Mother Atrial fibrillation Hypertension Hyperlipidemia Diabetes Brother CAD (coronary artery disease) cardiomopathy Myocardial infarction Sister cardiomopathy Surgical History History of endoscopy S/P tubal ligation H/O cardiac catheterization History of cataract removal with insertion of prosthetic lens 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) Hx of bilateral cataract extraction History of coronary artery stent placement (12/20/08) History of left-sided carotid endarterectomy (01/2019) Hx of appendectomy Social History adopted: No household members: spouse and family Smoking Status: Current every day smoker tobacco type: cigarettes Tobacco: How many years used: 50 Electronic Cigarette Use: not used second hand exposure: Yes quit status: has quit before alcohol intake: former year quit: 2017 substance use type: does not use caffeine: Yes Type: coffee Number of servings: 2 what type of physical activity do you participate in: none seatbelt use: sometimes do you feel safe at home: Yes ROS Constitutional Constitutional: Denies fatigue, fever(s), poor appetite, weight gain or weight loss Gastrointestinal Gastrointestinal: Denies belching, bloating, change in bowel habits, change in stool character, chewing difficulty, coffee ground emesis, constipation, cramping, diarrhea, dyspepsia, dysphagia, early satiety, excessive flatus, fecal incontinence, heartburn, hematemesis, hematochezia, hemorrhoids, loose stools, melena, nausea, odynophagia, rectal bleeding, tenesmus, vomiting or weight changes Vital Signs Vital Signs Vital Signs: 05/25/25 17:49 05/25/25 18:46 05/25/25 20:19 Temperature 97.4 F L 98.2 F Temperature Source Temporal Oral Pulse Rate 100 80 Respiratory Rate 17 20 H Respiratory Effort Normal Respiratory Depth Respiratory Pattern Normal Blood Pressure 119/56 L 98/41 L Blood Pressure Mean 77 60 Blood Pressure Source Monitor Blood Pressure Position Semi-Fowlers Blood Pressure Location Left Arm Pulse Ox 98 98 Oxygen Delivery Method Room Air Room Air 05/25/25 21:32 05/25/25 21:34 05/25/25 22:34 Temperature 98.1 F 98 F 98.3 F Temperature Source Oral Oral Oral Pulse Rate 81 80 79 Respiratory Rate 17 16 19 H Respiratory Effort Respiratory Depth Respiratory Pattern Blood Pressure 101/46 L 126/55 H 119/52 L Blood Pressure Mean 64 78 74 Blood Pressure Source Blood Pressure Position Blood Pressure Location Pulse Ox 97 98 Oxygen Delivery Method Room Air Room Air Room Air 05/25/25 22:38 05/25/25 23:00 05/25/25 23:21 Temperature 98.3 F 99.0 F Temperature Source Temporal Pulse Rate 81 92 Respiratory Rate 19 H 18 Respiratory Effort Normal Non-Labored Respiratory Depth Normal Respiratory Pattern Normal Blood Pressure 119/52 L 127/58 H Blood Pressure Mean 74 81 Blood Pressure Source Monitor Blood Pressure Position Semi-Fowlers Blood Pressure Location Left Arm Pulse Ox 98 98 Oxygen Delivery Method Room Air Room Air 05/26/25 01:21 05/26/25 01:44 05/26/25 02:44 Temperature 96.9 F L 97.8 F 98.5 F Temperature Source Temporal Temporal Oral Pulse Rate 83 75 73 Respiratory Rate 18 18 18 Respiratory Effort Respiratory Depth Respiratory Pattern Blood Pressure 117/58 L 118/54 L 114/57 L Blood Pressure Mean 77 75 76 Blood Pressure Source Monitor Monitor Monitor Blood Pressure Position Semi-Fowlers Semi-Fowlers Supine Blood Pressure Location Left Arm Left Arm Left Arm Pulse Ox 99 96 97 Oxygen Delivery Method Room Air Room Air Room Air 05/26/25 03:50 05/26/25 04:08 05/26/25 04:20 Temperature 98.6 F 98.2 F Temperature Source Oral Oral Pulse Rate 80 Respiratory Rate 16 Respiratory Effort Normal Non-Labored Respiratory Depth Normal Respiratory Pattern Normal Blood Pressure 116/62 109/57 L Blood Pressure Mean 80 74 Blood Pressure Source Monitor Monitor Blood Pressure Position Supine Supine Blood Pressure Location Right Arm Right Arm Pulse Ox 96 Oxygen Delivery Method Room Air Room Air Room Air 05/26/25 04:35 05/26/25 05:45 05/26/25 06:19 Temperature 97.5 F L 96.5 F L 97.3 F L Temperature Source Temporal Temporal Temporal Pulse Rate 78 73 73 Respiratory Rate 16 16 16 Respiratory Effort Respiratory Depth Respiratory Pattern Blood Pressure 106/53 L 111/66 123/60 H Blood Pressure Mean 70 81 81 Blood Pressure Source Monitor Monitor Monitor Blood Pressure Position Supine Supine Supine Blood Pressure Location Right Arm Left Arm Left Arm Pulse Ox 97 94 94 Oxygen Delivery Method Room Air Room Air Room Air 05/26/25 06:19 05/26/25 07:58 05/26/25 08:05 Temperature 97.3 F L Temperature Source Temporal Pulse Rate 73 Respiratory Rate 16 Respiratory Effort Normal Non-Labored Respiratory Depth Normal Respiratory Pattern Normal Blood Pressure 123/60 H Blood Pressure Mean 81 Blood Pressure Source Monitor Blood Pressure Position Supine Blood Pressure Location Left Arm Pulse Ox 94 Oxygen Delivery Method Room Air Room Air Room Air 05/26/25 09:09 05/26/25 11:35 Temperature 97.8 F 97.8 F Temperature Source Oral Pulse Rate 63 63 Respiratory Rate 17 17 Respiratory Effort Respiratory Depth Respiratory Pattern Blood Pressure 116/78 116/78 Blood Pressure Mean 90 Blood Pressure Source Monitor Blood Pressure Position Semi-Fowlers Blood Pressure Location Right Arm Pulse Ox 98 98 Oxygen Delivery Method Room Air Weight Weight: 188 lb 4.396 oz Body Mass Index (BMI) 29.5 Physical Exam Const alert, oriented x3, no apparent distress and healthy appearing General Appearance: cooperative GI normal to inspection, nondistended, normoactive bowel sounds, soft to palpation, non-tender and non-distended Percussion: normal to percussion Rectal Exam: deferred Results Lab / Micro Data 05/26/25 07:46 05/26/25 07:46 Labs: Laboratory Results - last 24 hr 05/25/25 17:55: PT 14.0, INR 1.1, APTT 36.5 H, Troponin T High Sens 28 H 05/25/25 18:34: Blood Type O POSITIVE, Antibody Screen NEGATIVE, Crossmatch See Detail 05/25/25 18:34: Crossmatch See Detail 05/25/25 20:50: Magnesium 2.3 H, Troponin T Hi Sens 2 Hr 26 H 05/25/25 23:59: Hgb 6.7 L, Hct 22.5 L, Iron 46 L, TIBC 327, Iron Saturation 14.1, Unsaturated IBC 281, Ferritin 45, Troponin T Hi Sens 4Hr 25 H, Vitamin B12 190, Serum Folate 20.00 05/26/25 07:46: WBC 6.0, RBC 2.88 L, Hgb 9.3 L, Hct 29.7 L, MCV 103.1 H D, MCH 32.3 H, MCHC 31.3 L D, RDW Std Deviation 93.1 H, RDW Coeff of Dao 26.7 H, Plt Count 198, MPV 10.8, Immature Gran % (Auto) 0.300, Neut % (Auto) 74.7 H, Lymph % (Auto) 14.6 L, [place] % (Auto) 8.3, Eos % (Auto) 1.3, Baso % (Auto) 0.8, Absolute Neuts (auto) 4.5, Absolute Lymphs (auto) 0.88, Nucleated RBC % 0, Polychromasia 2+, Anisocytosis 2+, Macrocytosis 1+, Sodium 139, Potassium 4.0, Chloride 110 H, Carbon Dioxide 19.8 L, Anion Gap 10, BUN 13, Creatinine 0.56 L, Estim Creat Clear Calc 76.61, Est GFR (MDRD) Non-Af 100, BUN/Creatinine Ratio 22.8 H, Glucose 98, Calcium 8.1, Total Bilirubin 0.52, AST 14, ALT 9, Alkaline Phosphatase 66, Total Protein 4.8 L, Albumin 3.0 L, Globulin 1.7 L, Albumin/Globulin Ratio 1.8, Triglycerides 119, Cholesterol 108, LDL Cholesterol, Calc 51, VLDL Cholesterol 24, HDL Cholesterol 33 L, Cholesterol/HDL Ratio 3.23 Micro: Microbiology 05/25/25 20:50 Stool Stool Occult Blood (MARQUEZ) - Final Assessment & Plan Assessment/Plan (1) Chronic GI bleeding: (2) Influenza A: (3) Hypoxia: PLAN: Plan The patient is a 64-year-old female with past medical history of CKD stage II per GFR trending, chronic anemia/iron deficiency anemia, presents with decreased hemoglobin. She will undergo an upper endoscopy to evaluate upper GI tract. She was explained alternatives, risk and benefits cannot withstanding bleeding, infection, sepsis, perforation, need for more surgery . She have an ASA of 3. Charges/Coding Visit Charges Inpatient E&M: 18681 Init Hosp L3
--- NOTE | 2025-05-26 13:06 | OP.EGD_ITS ---
Patient Name: Angeles Larios Procedure Date: 05/26/2025 12:44 PM Date of : 1960 Age: 65 Procedure: Upper GI endoscopy Indications: Iron deficiency anemia Providers: John Villa DO Medicines: Monitored Anesthesia Care Patient Profile: This is a 65 year old female. Refer to note in patient chart for documentation of history and physical. Patient has symptoms. Complications: No immediate complications. Procedure: Pre-Anesthesia Assessment: - Prior to the procedure, a History and Physical was performed, and patient medications and allergies were reviewed. The patient is competent. The risks and benefits of the procedure and the sedation options and risks were discussed with the patient. All questions were answered and informed consent was obtained. Patient identification and proposed procedure were verified by the physician in the pre-procedure area. Mental Status Examination: alert and oriented. Airway Examination: normal oropharyngeal airway and neck mobility. Respiratory Examination: clear to auscultation. CV Examination: normal. Prophylactic Antibiotics: The patient does not require prophylactic antibiotics. Prior Anticoagulants: The patient has taken no anticoagulant or antiplatelet agents except for NSAID medication. ASA Grade Assessment: III - A patient with severe systemic disease. After reviewing the risks and benefits, the patient was deemed in satisfactory condition to undergo the procedure. The anesthesia plan was to use monitored anesthesia care (MAC). Immediately prior to administration of medications, the patient was re-assessed for adequacy to receive sedatives. The heart rate, respiratory rate, oxygen saturations, blood pressure, adequacy of pulmonary ventilation, and response to care were monitored throughout the procedure. The physical status of the patient was re-assessed after the procedure. After obtaining informed consent, the endoscope was passed under direct vision. Throughout the procedure, the patient's blood pressure, pulse, and oxygen saturations were monitored continuously. The Endoscope was introduced through the mouth, and advanced to the fourth part of the duodenum. Small bowel enteroscopy was deemed necessary. The upper GI endoscopy was accomplished without difficulty. The patient tolerated the procedure well. Scope In: 12:57:49 PM Scope Out: 1:00:05 PM Total Procedure Duration Time 0 hours 2 minutes 16 seconds Findings: The examined esophagus was normal. One non-bleeding cratered gastric ulcer with no stigmata of bleeding was found in the gastric antrum. The lesion was fifteen mm by twenty mm in largest dimension. Biopsies were taken with a cold forceps for histology. Biopsies were taken with a cold forceps for Helicobacter pylori testing. Verification of patient identification for the specimen was done. Estimated blood loss was minimal. No gross lesions were noted in the entire examined duodenum. Impression: - Normal esophagus. - Non-bleeding gastric ulcer with no stigmata of bleeding. Biopsied. - No gross lesions in the entire examined duodenum. Recommendation: - Advance diet as tolerated. - Continue present medications. - Await pathology results. - Use Protonix (pantoprazole) 40 mg PO BID for 3 months. Procedure Code(s): --- Professional --- 98142, Small intestinal endoscopy, enteroscopy beyond second portion of duodenum, not including ileum; with biopsy, single or multiple CPT copyright 2021 [employer]. All rights reserved. The codes documented in this report are preliminary and upon displayer merchandise review may be revised to meet current compliance requirements. John Villa DO 05/26/2025 1:06:01 PM This report has been signed electronically. Number of Addenda: 0 Note Initiated On: 05/26/2025 12:44 PM
--- NOTE | 2025-05-26 13:06 | OP.PROVAT_ITS ---
05/26/2025 Martin Gutierrez MD [address] [place] [address] Re : Upper GI endoscopy procedure for Angeles Larios Dear Dr. Gutierrez This procedure was performed on Monday, May 26, 2025. My impressions and recommendations are as follows: Impressions : - Normal esophagus. - Non-bleeding gastric ulcer with no stigmata of bleeding. Biopsied. - No gross lesions in the entire examined duodenum. Recommendations : - Advance diet as tolerated. - Continue present medications. - Await pathology results. - Use Protonix (pantoprazole) 40 mg PO BID for 3 months. My findings are described in the full procedure note, which is enclosed. If I can be of further assistance, please feel free to contact me at . Sincerely, John Friend, 05/26/2025 1:06:01 PM This report has been signed electronically.
--- NOTE | 2025-05-26 13:23 | PCM.POST.ANE ---
Anesthesia: Postop Eval I Current Vital Signs Temperature: 97.4 F Pulse Rate: 67 Blood Pressure: 91/44 Respiratory Rate: 16 Pulse Ox: 99 Oxygen Delivery Method: Nasal Cannula Oxygen Flow Rate (L/min): 2 Assessment Airway patent: Yes Spontaneous unlabored respirations: Yes Mental status: Asleep nausea: No Vomiting: No Anesthesia Complication: No Fluid Hydration Crystalloid volume administer (ml): 300 Total IV fluid infused: 300 Progress Note Anesthesia document: Postop Eval 1 completed: Yes
--- NOTE | 2025-05-26 14:28 | PCM.OPRPT ---
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: No Type of Anesthesia: Local and Sedation,Conscious RN Documented Start/Stop Times: Operation Date: 05/26/25 12:45 Case Time Into Pre-Op 05/26/25 11:31 Anesthesia Start 05/26/25 12:49 Into Room 05/26/25 12:49 Procedure Start 05/26/25 12:57 Procedure End 05/26/25 12:59 Anesthesia End 05/26/25 13:02 Out of Room 05/26/25 13:02 Into Recovery 05/26/25 13:08 Out of Recovery 05/26/25 13:36 Procedure Start Time: 14:05 Procedure Stop Time: 14:20 Select all DRAINS/GRAFTS/IMPLANTS that apply: Implanted device Implanted device details: Bard Arlene inferior vena cava filter Estimated Blood Loss: 3 Specimen collected: No Description of surgery: HPI: Patient is a 65-year-old female with a new unprovoked recurrent DVT as well as acute on chronic anemia. Given the recurrent nature of her thrombosis and the as yet unexplained cause of her anemia it is felt that an inferior vena cava filter is appropriate. Description of procedure: Upon obtaining informed consent and verification correct patient procedure site the patient was taken to the Filtering [facility] where she was positioned prepped and draped in usual sterile fashion. Timeout was performed, sedation ministered Versed and fentanyl. Skin overlying the right common femoral vein was anesthetized 1 send lidocaine the vessel accessed under ultrasound guidance with a micropuncture needle wire. This was then exchanged for micropuncture sheath through which an ileal caval venogram was performed revealing satisfactory positioning with no extravasation or dissection. This also revealed a patent right iliac vein system with contrast direct transit into the vena cava without evidence of thrombus. Through the micropuncture sheath a J-wire was advanced and the micropuncture sheath exchanged for the Bard [place] filter delivery system. This was advanced into position at the L2 vertebral body and digital subtraction venacavogram performed which confirmed patent normal caliber IVC and revealed the location of the renal vein confluence. This position was marked on the screen and the dilator was withdrawn. The inferior vena cava filter was then advanced into position deployed below the lowest renal vein. Completion venacavogram confirmed satisfactory positioning with no significant tilt. The sheath was then withdrawn and manual pressure held until hemostasis was observed. The patient was then returned to the progressive care unit for bedrest and ongoing medical care. Surgical Findings: See above Complications Complications: No
--- NOTE | 2025-05-26 14:56 | CASEMGMT ---
Social Work Primary Care Doctor: Dr. Gutierrez Speciality doctors: none Insurance: [employer] Medicare Advantage Pharmacy: Patient utilizes [facility] in [place]. Advanced directives: Patient reported she has a POA and LW. LNOK: Living Situation: Patient lives at home with her , daughter and 2 grandchildren-18 and 9. Patient has 8 steps into her home. ADL's/Prior level of functioning: Independent Transportation: Patient still drives. DME: RW, rollator, WC, [facility] M[facility]/home health history: no history with NH or HH. Support/Community Services: none Mental Health: Patient reported she has been diagnosed with depression and she takes medication for it. Substance abuse history: She reported many years ago. Assessment: Patient wants to DC home. Patient lives at home with her , daughter and 2 grandchildren-18 and 9. Patient has 8 steps into her home. Social Work to continue to follow. JOSE ALFREDO Almaguer
[2025-05-26] MEDS: Pantoprazole Sodium 40 MG in 0.9% Normal Saline (100mL MB+) 100 ML 330 MG IV ×2 (15:15→20:39)
[2025-05-26] MEDS: 0.9% Normal Saline (250mL Bag) 250 ML 15 ML IV (15:16)
--- NOTE | 2025-05-26 17:37 | PN_ITS ---
Subjective Subjective Patient seen and examined with her nurse by her bedside. She had no active complaints and denied any fever, chills, cough, chest pain, palpitations, nausea, vomiting or any other symptoms. Review of systems is otherwise negative. Objective Data Objective Data Vital Signs: Vital Signs Temp Pulse Resp BP Pulse Ox O2 Del Method O2 Flow Rate 98 F 74 16 114/54 L 94 Room Air 2 05/26/25 16:18 05/26/25 16:18 05/26/25 16:18 05/26/25 16:18 05/26/25 16:18 05/26/25 16:18 05/26/25 14:11 Oxygen Flow Rate (L/min) 2 Oxygen Delivery Method Room Air Weight: 188 lb 4.396 oz Body Mass Index (BMI) 29.5 Intake & Output: Intake and Output for Last 24 Hours 05/24/25 05/25/25 05/26/25 23:59 23:59 23:59 Intake Total 400 / 420 2080.5 / 2080.5 Output Total 2 / 2 Balance 400 / 420 2078.5 / 2078.5 Lab / Micro Data 05/26/25 07:46 05/26/25 07:46 Labs: Laboratory Results - last 24 hr 05/25/25 17:55: PT 14.0, INR 1.1, APTT 36.5 H, Troponin T High Sens 28 H 05/25/25 18:34: Blood Type O POSITIVE, Antibody Screen NEGATIVE, Crossmatch See Detail 05/25/25 18:34: Crossmatch See Detail 05/25/25 20:50: Magnesium 2.3 H, Troponin T Hi Sens 2 Hr 26 H 05/25/25 23:59: Hgb 6.7 L, Hct 22.5 L, Iron 46 L, TIBC 327, Iron Saturation 14.1, Unsaturated IBC 281, Ferritin 45, Troponin T Hi Sens 4Hr 25 H, Vitamin B12 190, Serum Folate 20.00 05/26/25 07:46: WBC 6.0, RBC 2.88 L, Hgb 9.3 L, Hct 29.7 L, MCV 103.1 H D, MCH 32.3 H, MCHC 31.3 L D, RDW Std Deviation 93.1 H, RDW Coeff of Dao 26.7 H, Plt Count 198, MPV 10.8, Immature Gran % (Auto) 0.300, Neut % (Auto) 74.7 H, Lymph % (Auto) 14.6 L, [place] % (Auto) 8.3, Eos % (Auto) 1.3, Baso % (Auto) 0.8, Absolute Neuts (auto) 4.5, Absolute Lymphs (auto) 0.88, Nucleated RBC % 0, Polychromasia 2+, Anisocytosis 2+, Macrocytosis 1+, Sodium 139, Potassium 4.0, Chloride 110 H, Carbon Dioxide 19.8 L, Anion Gap 10, BUN 13, Creatinine 0.56 L, Estim Creat Clear Calc 76.61, Est GFR (MDRD) Non-Af 100, BUN/Creatinine Ratio 22.8 H, Glucose 98, Calcium 8.1, Total Bilirubin 0.52, AST 14, ALT 9, Alkaline Phosphatase 66, Total Protein 4.8 L, Albumin 3.0 L, Globulin 1.7 L, Albumin/Globulin Ratio 1.8, Triglycerides 119, Cholesterol 108, LDL Cholesterol, Calc 51, VLDL Cholesterol 24, HDL Cholesterol 33 L, Cholesterol/HDL Ratio 3.23 Micro: Microbiology 05/25/25 20:50 Stool Stool Occult Blood (MARQUEZ) - Final Radiography Diagnostic Testing: Radiology Impression Echocardiogram 05/25/25 22:46 Interpretation Summary The estimated ejection fraction is 60 %. The left atrium is mildly enlarged. Moderate (2+) mitral valve insufficiency. Severe aortic stenosis. Mild (1+) aortic valve insufficiency. Ordering Physician: Esperanza Myers Referring Physician: Matt Salazar Chi Performed By: Khloe Andrew, PATRICE, RVT Physical Exam Const alert, oriented x3 and no apparent distress General Appearance: cooperative HEENT normocephalic, moist oral mucous membranes and oropharynx normal Eyes EOMs intact bilaterally Neck supple Lymph Lymphatic: no lymphedema noted Resp normal respiratory effort, normal air movement and clear to auscultation bilaterally Cardio regular rate, regular rhythm, S1 normal heart sound, S2 normal heart sound and no murmurs GI normal to inspection, nondistended, normoactive bowel sounds, soft to palpation, non-tender and non-distended Extremity normal capillary refill, no clubbing, cyanosis or edema and no calf tenderness General Extremity: no tenderness to palpation of joints or extremities Skin General Skin Exam: no breakdown Neuro no focal motor deficits and no sensory deficits noted Motor Exam: general weakness Psych thought process normal and cooperative Appearance: appropriate Assessment & Plan Assessment/Plan (1) Acute anemia: PLAN: Plan #Acute on chronic anemia with concern for acute blood loss anemia * She does have a history of chronic microcytic and pertinent issues anemia. Came in with generalized fatigue and labs done by PCP showed anemia. * Gastroenterology consulted. Patient currently NPO. * Hydrate gently with IV fluids. * EGD done showed normal esophagus and nonbleeding gastric ulcer with no stigmata of bleeding and no gross lesions in the entire examined duodenum. Continue pantoprazole. * Transfuse with units of packed red blood cells. Hemoglobin is 9.3. * #Chest pain rule out ACS: * Cardiology consulted. EKG showed no acute ST changes. Initial troponin was 28 and trended upwards. Chest x-ray showed no acute cardiopulmonary pathology. * 2D echo showed EF of 60% and mildly enlarged left atrium with severe aortic stenosis and moderate mitral valve insufficiency. * Chest pain is resolved. #Left lower extremity DVT * Duplex of the left lower extremity done showed left posterior tibial vein DVT. * Since she has acute on chronic anemia, patient cannot be anticoagulated without high risk of bleeding. * Vascular surgery therefore consulted and patient had IVC filter placed later today. #History of CAD s/p PCI: Aspirin on hold. On statin. Not on beta-linn or DANETTE inhibitor. Unclear why. #History of carotid artery stenosis: s/p left CEA. Aspirin on hold. On statin. #Histoyr of CVA: has chronic dysarthria due to previous stroke. Aspirin held due to acute on chronic anemia #History of PAD: on aspirin which is held. On statin. #Anxiety and depression: on cymbalta #Hypothyroidism: on sunthorid #Hypertension: #Hyperlipidemia: on statin #GERD: on PPI #PATRICA: on CPAP qhs DVT prophylaxis: SCDs Charges/Coding Visit Charges Inpatient E&M: 16109 Subs Hosp L2
--- NOTE | 2025-05-26 20:21 | CPS ---
Patient refused PAP therapy for night time use.
[2025-05-27 00:18] VITALS: BP 114/49; PULSE 73; RESP 14; TEMP 36.4; O2SAT 93
[2025-05-27 04:18] VITALS: BP 110/51; PULSE 78; RESP 16; TEMP 36.6; O2SAT 93
[2025-05-27 05:40] LABS: Hematocrit 28.2 % (37-47); Hemoglobin 8.8 g/dL (12.0-15.0); Immature Granulocytes Count 0.010 X10^3/uL (0.0-0.0); Mean Corp Hgb Conc 31.2 g/dL (32-36); Mean Corpuscular Volume 105.2 fL (81-99); Mean Platelet Vol. 10.8 fl (6.2-12.0); NRBC Flagged by Analyzer 0 % (0-5); POSITIVE MORPHOLOGY YES; Platelet Count 171 K/mm3 (150-450); RBC Distribution Width CV 27.4 % (11.6-14.6); RBC Distribution Width SD 96.9 fl (35.1-43.9); Red Blood Count 2.68 M/mm3 (4.2-5.4); White Blood Count 5.3 K/mm3 (4.4-11.0)
[2025-05-27 06:00] VITALS: BMI 29.8
[2025-05-27 06:05] LABS: Anion Gap 10 (5-15); BUN 11 mg/dL (4-19); BUN/Creat Ratio 18.4 RATIO (10-20); Calcium,Total 8.2 mg/dL (7.6-11.0); Carbon Dioxide 21.4 mmol/L (21.0-32.0); Chloride 110 mmol/L (98-108); Estimated Creatinine Clearance 76.61 ml/min (50-250); Glucose 83 mg/dL (70-99); Potassium 3.8 mmol/L (3.3-5.1)
[2025-05-27 06:20] LABS: Differential Indicated SCAN CRITERIA MET
[2025-05-27 07:04] LABS: Anisocytosis 2+; Polychromasia 1+
[2025-05-27 07:06] LABS: Differential Comment SCANNED
[2025-05-27 08:06] VITALS: BP 120/56; PULSE 65; RESP 18; TEMP 36.8; O2SAT 92
[2025-05-27 12:18] VITALS: BP 122/52; PULSE 84; RESP 18; O2SAT 96
[2025-05-27 15:42] VITALS: BP 122/52; PULSE 70; RESP 17; TEMP 36.8; O2SAT 98
--- NOTE | 2025-05-27 15:48 | DCINST_ITS ---
Discharge Instructions DC O2, CPAP, BIPAP needs Home O2 Discharge instructions: No Dressing / Incision Discharge Activity: Return to Normal Activity Weight Bearing Status: Weight bearing as tolerated Dressing / Incision Call your doctor if you observe: Fever of 101 or Higher, Shortness of breath, Dizziness, Swelling in the ankles and Chest pain Follow Up Care Test Results: Test results from this visit will be discussed in further detail at your follow- up appointment, if applicable. Discharge Plan Admission Admit Date/Time: 05/25/25 21:10 Primary Reason for Your Visit: Acute on chronic anemia, DVT Attending Provider: Alanna Ruiz Primary Care Provider: Martin Gutierrez Chi Consulting Providers: Gray Bustos; Daisy,John; Amira Salter; Quita Moreno; Charlene Fry; Esperanza Myers; Stephen Carpio Instructions Patient Instructions: Anemia, DVT Tx, ICV Filter Placement Discharge Orders/Prescriptions Prescriptions: Continued nitroglycerin 0.4 mg tablet, sublingual 0.4 mg sublingual Q5-15M PRN (Reason: chest pain) Qty: 25 3RF Rx Instructions: until response; do not exceed 3 doses per event rosuvastatin 40 mg tablet 40 mg PO QDAY ferrous sulfate 325 mg (65 mg iron) tablet 650 mg PO BID famotidine 40 mg tablet 40 mg PO DAILY Patient Comments: pt states she does not take this every day aspirin [Adult Low Dose Aspirin] 81 mg tablet,delayed release (DR/EC) 81 mg PO DAILY Patient Comments: pt states she does not take this on sundays levothyroxine 25 MCG tablet 25 mcg PO DAILY duloxetine [Cymbalta] 60 mg capsule,delayed release(DR/EC) 60 mg PO BID acetaminophen [Tylenol Extra Strength] 500 mg Tablet 1,000 mg PO Q6H PRN (Reason: Headache) baclofen 10 mg tablet 10 mg PO DAILY gabapentin 100 mg capsule 100 mg PO DAILY PreserVision AREDS 4,296 mcg-226 mg-90 mg capsule 1 cap PO DAILY albuterol sulfate 90 mcg/actuation HFA aerosol inhaler 2 puff inhalation Q6H PRN (Reason: shortness of breath or wheezing) Qty: 8.5 0RF duloxetine 30 mg capsule,delayed release(DR/EC) 30 mg PO BID Referrals / Follow Up: Efrain Samuel MD [Med Staff - Active Staff, Cardiology] - Within 2 Weeks John Villa DO [Med Staff - Active Staff, Gastroenterology] - Within 2 Weeks Martin Gutierrez Chi, MD [Primary Care Provider, Geriatrics] - Within 1 Week Disposition Disposition (needs filled in before D/C Order can be placed): Home, Self Care
--- NOTE | 2025-05-27 15:50 | PCM.DC.SUM ---
Providers Date of Admission: 05/25/25 Date of Discharge: 05/27/25 Primary Care Physician: Dr. Martin Gutierrez MD Consultations 05/25/25 22:46 Consult: Gastroenterology Routine Consulting Provider: [facility] Reason for Consult: ? GI bleed, acute on chronic anemia EMERGENT Consult: No Notified: Yes Date Notified: 05/25/25 Time Notified: 21:12 Method of Notification: Text 05/26/25 08:35 Consult: Vascular Surgery Routine Consulting Provider: Stephen Carpio Reason for Consult: LLE DVT, needs IVC filter EMERGENT Consult: No Notified: Yes Date Notified: 05/26/25 Time Notified: 08:35 Method of Notification: Verbal Reason For Visit: ACUTE ON CHRONIC ANEMIA, ? GI BLEED, CHEST Diagnosis Discharge Diagnosis (1) Acute anemia: Status: Acute Code(s): D64.9 - Anemia, unspecified Plan #Acute on chronic anemia with concern for acute blood loss anemia She does have a history of chronic microcytic and pertinent issues anemia. Came in with generalized fatigue and labs done by PCP showed anemia. Gastroenterology consulted. Patient currently NPO. Hydrate gently with IV fluids. EGD done showed normal esophagus and nonbleeding gastric ulcer with no stigmata of bleeding and no gross lesions in the entire examined duodenum. Continue pantoprazole. Transfuse with units of packed red blood cells. Hemoglobin is 9.3. #Chest pain rule out ACS: EKG showed no acute ST changes. Initial troponin was 28 and trended upwards. Chest x-ray showed no acute cardiopulmonary pathology. 2D echo showed EF of 60% and mildly enlarged left atrium with severe aortic stenosis and moderate mitral valve insufficiency. Chest pain is resolved. #Left lower extremity DVT Duplex of the left lower extremity done showed left posterior tibial vein DVT. Since she has acute on chronic anemia, patient cannot be anticoagulated without high risk of bleeding. Vascular surgery therefore consulted and patient had IVC filter placed later today. #History of CAD s/p PCI: Aspirin on hold. On statin. Not on beta-linn or DANETTE inhibitor. Unclear why. #History of carotid artery stenosis: s/p left CEA. Aspirin on hold. On statin. #Histoyr of CVA: has chronic dysarthria due to previous stroke. Aspirin held due to acute on chronic anemia #History of PAD: on aspirin which is held. On statin. #Anxiety and depression: on cymbalta #Hypothyroidism: on sunthorid #Hypertension: #Hyperlipidemia: on statin #GERD: on PPI #PATRICA: on CPAP qhs DVT prophylaxis: SCDs Medications at Discharge Home Medications nitroglycerin 0.4 mg sublingual tablet 0.4 mg sublingual Q5-15M PRN chest pain #25 tabs 10/14/17 levothyroxine 25 mcg tablet 25 mcg PO DAILY thyroid 11/30/17 rosuvastatin 40 mg tablet 40 mg PO QDAY hld 04/09/18 acetaminophen 500 mg tablet (Tylenol Extra Strength) 1,000 mg PO Q6H PRN Headache 03/09/21 aspirin 81 mg tablet,delayed release (Adult Low Dose Aspirin) 81 mg PO DAILY blood thinner 07/26/21 Held on 05/27/25. Instructions: Resume on 06/11/25. hold for 2 weeks, per GI famotidine 40 mg tablet 40 mg PO DAILY gerd 07/26/21 ferrous sulfate 325 mg (65 mg iron) tablet 650 mg PO BID iron 04/15/23 duloxetine 60 mg capsule,delayed release (Cymbalta) 60 mg PO BID depression 09/30/23 baclofen 10 mg tablet 10 mg PO DAILY spasms 09/26/24 gabapentin 100 mg capsule 100 mg PO DAILY pain 09/26/24 vitamins A,C,C-fhqm-igaazs 4,296 mcg-226 mg-90 mg capsule (PreserVision AREDS) 1 cap PO DAILY supplement 09/26/24 albuterol sulfate 90 mcg/actuation aerosol inhaler 2 puff inhalation Q6H PRN shortness of breath or wheezing #8.5 grams 09/28/24 duloxetine 30 mg capsule,delayed release 30 mg PO BID 05/25/25 pantoprazole 40 mg tablet,delayed release 40 mg PO BID #60 tabs 05/27/25 Hospital Course Operations None Procedures 2-D Echocardiogram Summary of Care Provided Minutes Spent on Discharge: 45 Hospital Course: Patient is a 65-year-old female with a past medical history as outlined including a history of chronic microcytic anemia as well as iron deficiency anemia with chronic GI loss who was admitted through the ED on 05/25/2025 with a complaint of generalized fatigue and anemia. She had been seen by her PCP on the day of presentation and outpatient labs were done. She also complained of swelling in her left leg so duplex of the left lower extremity was done which showed left posterior tibial vein DVT. She was prescribed Eliquis but labs came back showing hemoglobin of 6.1 so she was referred to her PCP on outpatient basis. She said she had chronic dark stools due to her being on iron supplementation. In the ED hemoglobin check was 6.1. Unit of packed red blood cells was ordered. She also complained of chest pain. She was admitted to be managed for acute on chronic anemia as well as left posterior tibial vein DVT and acute on chronic anemia due to GI bleed. Gastroenterology was consulted and she had EGD which showed nonbleeding ulcers with no stigmata of recent bleed. Patient could not be anticoagulated due to the acute on chronic anemia. Vascular surgery was therefore consulted and she had an IVC filter inserted on 05/27/2025. She had 2D echo which showed evidence of severe aortic stenosis with EF of 60% and 2+ mitral valve insufficiency. This was discussed with photo producer on-call Dr. Vick who recommended that patient could be discharged and follow-up on outpatient basis. Micheline 2D echo from 2020 had shown peak aortic pressures of 61 mmHg and he said that indicated that patient had been heading towards severe aortic stenosis then. Recommended that patient follow-up with cardiology on outpatient basis. Patient remained stable and on day of discharge her hemoglobin was 8.8. She was therefore discharged home on 05/27/2025. She is follow-up with her primary care doctor to follow-up with gastroenterology as well as cardiology within 2 weeks. She was discharged on p.o. pantoprazole 40 mg twice daily for total of 3 months. GI Patient seen and examined prior to discharge. She had no active complaints and had an uneventful night. Review of systems otherwise negative. Labs and vitals reviewed. Home medication reviewed and reconciled.. Physical Exam Const alert, oriented x3, no apparent distress and well nourished General Appearance: cooperative, comfortable, well kempt and well developed HEENT normocephalic, head/scalp atraumatic, hearing grossly normal bilaterally, moist oral mucous membranes and oropharynx normal Mouth: oral and palatal mucosa normal Eyes EOMs intact bilaterally and conjunctivae normal Neck supple and no JVD Lymph Lymphatic: no lymphedema noted Resp normal respiratory effort, normal air movement and clear to auscultation bilaterally Cardio regular rate, regular rhythm, S1 normal heart sound, S2 normal heart sound and no murmurs GI normal to inspection, nondistended, normoactive bowel sounds, soft to palpation, non-tender and non-distended Palpation: soft Extremity normal to inspection, full ROM, normal capillary refill, no clubbing, cyanosis or edema and no calf tenderness General Extremity: edema and no tenderness to palpation of joints or extremities Skin no rashes or lesions noted General Skin Exam: no breakdown Neuro oriented x3, CN's II-XII intact bilaterally, moves all extremities, no focal motor deficits and no sensory deficits noted Sensorium / Orientation: awake and alert Motor Exam: strength 5/5 throughout and general weakness Psych mental status grossly normal, thought process normal and cooperative Appearance: appropriate Weight / BMI Weight Weight: 190 lb 11.198 oz Body Mass Index (BMI) 29.8 ABG / Lab / Microbiology Data 05/27/25 04:32 05/27/25 04:32 Laboratory: Laboratory Results - last 24 hr 05/27/25 04:32: WBC 5.3, RBC 2.68 L, Hgb 8.8 L, Hct 28.2 L, MCV 105.2 H, MCH 32.8 H, MCHC 31.2 L, RDW Std Deviation 96.9 H, RDW Coeff of Dao 27.4 H, Plt Count 171, MPV 10.8, Immature Gran % (Auto) 0.200, Neut % (Auto) 73.8 H, Lymph % (Auto) 14.3 L, [place] % (Auto) 10.4 H, Eos % (Auto) 0.9, Baso % (Auto) 0.4, Absolute Neuts (auto) 3.9, Absolute Lymphs (auto) 0.76 L, Nucleated RBC % 0, Differential Comment SCANNED, Platelet Estimate ADEQUATE, Plt Morphology Comment LARGE, Polychromasia 1+, Anisocytosis 2+, Sodium 142, Potassium 3.8, Chloride 110 H, Carbon Dioxide 21.4, Anion Gap 10, BUN 11, Creatinine 0.57 L, Estim Creat Clear Calc 76.61, Est GFR (MDRD) Non-Af 99, BUN/Creatinine Ratio 18.4, Glucose 83, Calcium 8.2 Microbiology: Microbiology 05/25/25 20:50 Stool Stool Occult Blood (MARQUEZ) - Final Radiography Diagnostic Testing: Radiology Impression Echocardiogram 05/25/25 22:46 Interpretation Summary The estimated ejection fraction is 60 %. The left atrium is mildly enlarged. Moderate (2+) mitral valve insufficiency. Severe aortic stenosis. Mild (1+) aortic valve insufficiency. Ordering Physician: Esperanza Myers Referring Physician: Matt Salazar Chi Performed By: Khloe Andrew, PATRICE, RVT D/C Instructions Discharge Activity: Return to Normal Activity Weight Bearing Status: Weight bearing as tolerated Call your doctor if you observe: Fever of 101 or Higher, Shortness of breath, Dizziness, Swelling in the ankles and Chest pain DC O2, CPAP, BIPAP Needs Home O2 Discharge instructions: No Meaningful Use Info Meaningful Use Meaningful Use Diagnoses (Choose all that apply): None applicable Discharge Plan Admission Admit Date/Time: 05/25/25 21:10 Primary Reason for Your Visit: Acute on chronic anemia, DVT Attending Provider: Alanna Ruiz Primary Care Provider: Martin Gutierrez Chi Consulting Providers: Gray Bustos; John Villa; Amria Salter; Quita Moreno; Charlene Fry; Esperanza Myers; Stephen Carpio Instructions Patient Instructions: Anemia, DVT Tx, ICV Filter Placement Discharge Orders/Prescriptions Prescriptions: New pantoprazole 40 mg tablet,delayed release (DR/EC) 40 mg PO BID Qty: 60 2RF Continued nitroglycerin 0.4 mg tablet, sublingual 0.4 mg sublingual Q5-15M PRN (Reason: chest pain) Qty: 25 3RF Rx Instructions: until response; do not exceed 3 doses per event rosuvastatin 40 mg tablet 40 mg PO QDAY ferrous sulfate 325 mg (65 mg iron) tablet 650 mg PO BID famotidine 40 mg tablet 40 mg PO DAILY Patient Comments: pt states she does not take this every day levothyroxine 25 MCG tablet 25 mcg PO DAILY duloxetine [Cymbalta] 60 mg capsule,delayed release(DR/EC) 60 mg PO BID acetaminophen [Tylenol Extra Strength] 500 mg Tablet 1,000 mg PO Q6H PRN (Reason: Headache) baclofen 10 mg tablet 10 mg PO DAILY gabapentin 100 mg capsule 100 mg PO DAILY PreserVision AREDS 4,296 mcg-226 mg-90 mg capsule 1 cap PO DAILY albuterol sulfate 90 mcg/actuation HFA aerosol inhaler 2 puff inhalation Q6H PRN (Reason: shortness of breath or wheezing) Qty: 8.5 0RF duloxetine 30 mg capsule,delayed release(DR/EC) 30 mg PO BID Held aspirin [Adult Low Dose Aspirin] 81 mg tablet,delayed release (DR/EC) 81 mg PO DAILY Hold Instructions: Resume on 06/11/25. hold for 2 weeks, per GI Patient Comments: pt states she does not take this on sundays Referrals / Follow Up: Efrain Samuel MD [Med Staff - Active Staff, Cardiology] - Within 2 Weeks John Villa DO [Med Staff - Active Staff, Gastroenterology] - Within 2 Weeks Martin Gutierrez Chi, MD [Primary Care Provider, Geriatrics] - Within 1 Week Disposition Disposition (needs filled in before D/C Order can be placed): Home, Self Care Charges/Coding Visit Charges Inpatient E&M: 00582 Disch Hosp >30min
[2025-05-27 16:09] VITALS: BP 122/52; PULSE 77; RESP 13; TEMP 36.6; O2SAT 95
== END 2025-05-27 16:41 | disposition home or self-care (01) | DRG 812 ==
LOC: ED 21:23 → PCU 21:45
PROVIDERS: Internal Medicine Gastroenterology; Admitting Provider Family Medicine; Emergency Provider Emergency Medicine; PCP Family Medicine Geriatric Medicine; Visit Provider Student in an Organized Health Care Education/Training Program
PROC: 0DJ08ZZ Inspection of Upper Intestinal Tract, Via Natural or Artificial Opening Endoscopic (ICD-10-PCS; CPT 43235; principal; 2025-05-26 12:40)
DX: D62 Acute posthemorrhagic anemia (principal); J84.9 Interstitial pulmonary disease, unspecified; I13.0 Hypertensive heart and chronic kidney disease with heart failure and stage 1 through stage 4 chronic kidney disease, or unspecified chronic kidney disease; I82.442 Acute embolism and thrombosis of left tibial vein; I69.322 Dysarthria following cerebral infarction; I50.9 Heart failure, unspecified; E03.9 Hypothyroidism, unspecified; D50.9 Iron deficiency anemia, unspecified; F32.A Depression, unspecified; I73.9 Peripheral vascular disease, unspecified; I35.0 Nonrheumatic aortic (valve) stenosis; K25.9 Gastric ulcer, unspecified as acute or chronic, without hemorrhage or perforation; F17.210 Nicotine dependence, cigarettes, uncomplicated; E78.5 Hyperlipidemia, unspecified; K21.9 Gastro-esophageal reflux disease without esophagitis; I25.10 Atherosclerotic heart disease of native coronary artery without angina pectoris; M79.7 Fibromyalgia; F41.9 Anxiety disorder, unspecified; G47.33 Obstructive sleep apnea (adult) (pediatric); I65.23 Occlusion and stenosis of bilateral carotid arteries; I69.328 Other speech and language deficits following cerebral infarction; N18.2 Chronic kidney disease, stage 2 (mild); I34.0 Nonrheumatic mitral (valve) insufficiency; D51.0 Vitamin B12 deficiency anemia due to intrinsic factor deficiency; J20.9 Acute bronchitis, unspecified; R07.89 Other chest pain; Z95.5 Presence of coronary angioplasty implant and graft; Z87.19 Personal history of other diseases of the digestive system; Z79.82 Long term (current) use of aspirin; Z79.899 Other long term (current) drug therapy; Z79.890 Hormone replacement therapy; Z86.718 Personal history of other venous thrombosis and embolism
CPT/HCPCS: 36415; 37191; 71046; 76937; 80048; 80053; 80061; 82274; 82607; 82728; 82746; 83540; 83550; 83735; 83880; 84484; 85014; 85018; 85025; 85379; 85610; 85730; 86850; 86900; 86901; 87631; 88305; 88341; 88342; 93005; 93306; 93970; 94668; 97161; 99152; 99153; 99283; 99406; C1894; P9016; Q9957; Q9967; A4216; C1769; C1880; J2405

== ENCOUNTER → 2025-05-25 | Outpatient (CLI) | payer MEDICARE, SELFPAY ==
[2025-05-25 16:02] LABS: Hematocrit 21.5 % (37-47); Hemoglobin 6.1 g/dL (12.0-15.0); Immature Granulocytes Count 0.040 X10^3/uL (0.0-0.0); Mean Corp Hgb Conc 28.4 g/dL (32-36); Mean Corpuscular Volume 123.6 fL (81-99); Mean Platelet Vol. 10.4 fl (6.2-12.0); NRBC Flagged by Analyzer 0 % (0-5); POSITIVE MORPHOLOGY YES; Platelet Count 262 K/mm3 (150-450); RBC Distribution Width CV 16.9 % (11.6-14.6); RBC Distribution Width SD 74.6 fl (35.1-43.9); Red Blood Count 1.74 M/mm3 (4.2-5.4); White Blood Count 7.3 K/mm3 (4.4-11.0)
[2025-05-25 16:13] LABS: D-Dimer Quantitative (DVT/PE) 0.48 FEU/ug/m (0.27-0.49)
[2025-05-25 16:51] LABS: Differential Comment SCANNED; Differential Indicated SCAN CRITERIA MET
[2025-05-25 16:52] LABS: Anisocytosis 2+; Hypochromasia 3+; Polychromasia 1+; Target Cells 1+
[2025-05-25 16:54] LABS: Anion Gap 10 (5-15); BUN 15 mg/dL (4-19); BUN/Creat Ratio 21.8 RATIO (10-20); Calcium,Total 8.4 mg/dL (7.6-11.0); Carbon Dioxide 21.6 mmol/L (21.0-32.0); Chloride 108 mmol/L (98-108); Glucose 105 mg/dL (70-99); Potassium 4.1 mmol/L (3.3-5.1); Pro- Brain NATRIURETIC PEPTIDE 1897 pg/mL (<=900)
--- OUTSIDE RECORDS SUMMARY | 2025-05-26 00:48 | XMS RPT_ITS | CCD ---
Author Organization [facility] Care Team Providers Care Medical Case Manager Name Role Phone Manda, RN, Mena Taylor Unavailable Unavailabl e MIGUEL, CELINE Unavailable Unavailable MIGUEL, CELINE Unavailable Unavailable AMI ROSENK A Unavailable Unavailable NELY CALZADA Unavailable Unavailable ISMAELCLIFTON BROWN Unavailable Unavailable MATT MARTIN-CHI Unavailable Unavailable MIGUEL, CELINE Unavailable Unavailable PROVIDER, UNKNOWN Attending Unavailable PROVIDER, UNKNOWN Admitting Unavailable Ismael DO Nerissa Unavailable AttReginald palumboa Unavailable [facility] OFFICE, Senait Chau Unavailable Grace RN, Janay Unavailable Unavailable Nano Joe Unavailable Unavailable Unavailable Unavailable Tali Parikh Unavailable [phone] Leslye HAUSER, Ritu A Unavailable Unavailable Janene Vallecillo Unavailable Leslye HAUSER, Ritu A Unavailable Unavailable Janene Vallecillo Unavailable MURTAZA Homlan, Mena Taylor Unavailable Unavailabl e G Nurse Unavailable Unavailable Leslye HAUSER, Ritu A Unavailable Unavailable Leslye RN, Ritu A Unavailable Unavailable Dr. Martin Gutierrez Chi Primary Care Provider Dr. Efrain Samuel Attending Provider Dr. Martin Gutierrez Chi Referring Provider Dr. Simon Ulloa Attending Provider Matt, Dr. Martin Perdue Primary Care Provider Dr. Martin Gutierrez Chi Primary Care Provider Matt, Dr. Martin Perdue Referring Provider Isckarus, Dr. Montes Attending Provider Matt, Dr. Martin Perdue Primary Care Provider Matt, Dr. Martin Perdue Referring Provider Isckar, Dr. Montes Attending Provider Sommer AUTOMOTIVE MECHANICAL ENGINEER, AUTOMOTIVE MECHANICAL ENGINEER-C Ifrah Attending Provider Matt, Dr. Martin Perdue Primary Care Provider Matt, Dr. Martin Perdue Referring Provider Isckarus, Dr. Montes Attending Provider Matt, Dr. Martin Perdue Primary Care Provider Matt, Dr. Martin Perdue Referring Provider Isckarus, Dr. Montes Attending Provider Matt , Dr. Martin Perdue Primary Care Provider Sara JUÁREZ, Dr. Eller Emergency Provider Lucia FAROOQ, Dr. Esperanza Chang Admit Provider Lucia FAROOQ, Dr. Esperanza Chang Referring Provider Lucia FAROOQ, Dr. Esperanza Chang Other Provider Elizabet FAROOQ, Dr. Chavez Attending Provider Unavaila ble Elizabet FAROOQ, Dr. Chavez Other Provider Unavailable Matt FAROOQ, Dr. Martin Perdue Referring Provider Artemio FAROOQ, Dr. Montes Attending Provider Matt FAROOQ, Dr. Martin Perdue Attending Provider Sury FAROOQ, Dr. Roberts Attending Provider Sury FAROOQ, Dr. Roberts Referring Provider Matt FAROOQ, Dr. Martin Perdue Primary Care Provider Matt FAROOQ, Dr. Martin Perdue Referring Provider Artemio FAROOQ, Dr. Montes Attending Provider Matt, Martin Chi Attending Unavailable Matt, Martin Chi Primary Care Unavailable Matt, Martin Chi Attending Unavailable Matt, Martin Chi Primary Care Unavailable Matt, Martin Chi Primary Care Unavailable PascualkarusJulietaour Attending Unavailable Matt, Martin Chi Referring Unavailable Gino AUTOMOTIVE MECHANICAL ENGINEER, Margi Attending Unavailable Matt, Martin Chi Primary Care Unavailable Gino AUTOMOTIVE MECHANICAL ENGINEER, Margi Referring Unavailable Matt, Martin Chi Primary Care Unavailable Matt, Martin Chi Referring Unavailable Matt, Martin Chi Attending Unavailable White, Esperanza L Admitting Unavailable White, Esperanza L Referring Unavailable White, Esperanza L Consulting Unavailable Matt, Martin Chi Primary Care Unavailable Scott Mcneal Attending Unavailable Matt, Martin Chi Primary Care Unavailable Matt, Martin Chi Attending Unavailable Matt, Martin Chi Referring Unavailable Matt, Martin Chi Primary Care Unavailable Matt, Martin Chi Attending Unavailable Matt, Martin Chi Referring Unavailable Matt, Martin Chi Attending Unavailable Matt, Martin Chi Primary Care Unavailable Matt, Martin Chi Referring Unavailable Matt, Martin Chi Primary Care Unavailable Gino AUTOMOTIVE MECHANICAL ENGINEER, Margi Attending Unavailable Matt, Martin Chi Attending Unavailable Matt, Martin Chi Primary Care Unavailable Matt, Martin Chi Referring Unavailable Matt, Martin Chi Primary Care Unavailable Basali, Ayman Referring Unavailable Basali, Ayman Attending Unavailable Matt, Martin Chi Primary Care Unavailable Basali, Ayman Referring Unavailable Basali, Ayman Attending Unavailable Matt, Martin Chi Attending Unavailable Matt, Martin Chi Primary Care Unavailable Matt, Martin Chi Referring Unavailable White, Esperanza L Admitting Unavailable White, Esperanza L Referring Unavailable White, Esperanza L Attending Unavailable White, Esperanza L Consulting Unavailable Matt, Martin Chi Primary Care Unavailable Scott Mcneal Attending Unavailable Scott Mcneal Consulting Unavailable Matt, Martin Chi Primary Care Unavailable Gino AUTOMOTIVE MECHANICAL ENGINEER, Margi Attending Unavailable Gino AUTOMOTIVE MECHANICAL ENGINEER, Margi Referring Unavailable Matt, Martin Chi Primary Care Unavailable Matt, Martin Chi Referring Unavailable Isckarus, Mansour Attending Unavailable Matt, Martin Chi Referring Unavailable Matt, Martin Chi Primary Care Unavailable PascualkarusJulietaour Attending Unavailable Allergies Allergy Classification Reported Allergen(s) Allergy Type Date of Onset Reaction(s) Facility Unclassified (1 source) Codeine/Codeine Derivatives; Translations: [Codeine/Codeine Derivatives] Allergy to substance (finding) [facility] Work Phone: (20 sources) atorvastatin; Translations: [LIPITOR] Drug Allergy 12-10-19 13 Severe muscle aches [facility] Work Phone: (20 sources) codeine; Translations: [CODEINE] Drug Allergy 01-10-20 11 GI upset, Other [facility] Work Phone: Comment on above: PT REPORTS GOING TO SLEEP AND HAS HARD TIME WAKING UP (20 sources) Hmg-Coa Reductase Inhibitors (Statins); Translations: [STATINS] allergy to substance 06-08-20 13 mylagias [facility] Work Phone: (2 sources) buPROPion; Translations: [BUPROPION HCL] Drug Allergy 09-08-19 06 [facility] Repository (1 source) Hmg-Coa Reductase Inhibitors (Statins); Translations: [[id number] REDUCTASE INHIBITORS] Propensity to adverse reactions (disorder) [facility] Repository (1 source) Opioid Agonists; Translations: [OPIOID ANALGESICS] Propensity to adverse reactions to drug (disorder) 09-08-19 06 [facility] Repository (13 sources) atorvastatin Drug Allergy 11-07-19 22 Other [facility] Comment on above: unable to walk (1 source) atorvastatin Drug Allergy 05-01-20 [facility] Repository Medications Current Medications Medication Drug Class(es) Dates Sig (Normalized) Sig (Original) acetaminophen 500 mg oral tablet (13 sources) Start: 03-09-2021 take 2 tablets by mouth every six hours as needed for headache Acetaminophen (Tylenol Extra Strength) 500 mg Tablet Active 1000 mg PO EVERY 6 HOURS as needed for Headache March 09, 2021 12:00am [id number] 200 actuat albuterol 0.09 mg/actuat metered dose inhaler (4 sources) beta2-Adrenergic Agonist Start: 09-28-2024 Albuterol Sulfate 90 mcg/actuation HFA aerosol inhaler Active 2 NMA INHALATION EVERY 6 HOURS as needed for shortness of breath or wheezing 8.5 0 September 28, 2024 1:00am Start: 10-28-2013 take 2 puff(s) by in halation three times daily PROAIR HFA, 108 (90 Base)MCG/ACT (Inhalation Aerosol Solution) 2 (two) Puff Puff tid for 0 days Quantity: 1 {Inhaler} Refills: 0 Ordered: 28-Oct-2013 Janay Edwards RN Start : 28-Oct-2013 Active Start: 12-12-2008 End: 03-26-2009 PROVENTIL HFA, 108 (90 Base)MCG/ACT (Inhalation Aerosol Solution) for 0 days Refills: 0 Ordered: 12-Dec-2008 Janay Edwards RN Start : 12-Dec-2008 End : 26-Mar-2009 Inactive aspirin 81 mg delayed release oral tablet (20 sources) Platelet Aggregation Inhibitor, Nonsteroidal Anti-inflammatory Drug Start: 07-26-2021 Aspirin (Adult Lo w Dose Aspirin) 81 mg tablet,delayed release (DR/EC) Active 81 mg PO DAILY July 26, 2021 11:03am blood thinner Start: 07-10-2021 End: 07-26-2021 Aspirin (Adult Low Dose Aspi rin) 81 mg tablet,delayed release (DR/EC) Discontinued 81 mg PO TWICE A DAY July 10, 2021 1:00am July 26, 2021 11:03am Start: 02-14-2020 End: 07-10-2021 take 1 tablet by mouth once daily Aspirin 325 mg tablet Discontinued 325 mg PO DAILY February 14, 2020 12:00am July 10, 2021 4:36pm Check with primary doctor Start: 07-27-2017 End: 11-24-2017 Aspirin (Adult Low Dose Aspi rin) 81 mg tablet,delayed release (DR/EC) Discontinued 81 mg PO .every other day July 27, 2017 1:00am November 24, 2017 1:54pm Start: 01-09-2011 End: 06-08-2013 take 1 tablet by mouth once daily ASPIRIN 81 MG TABS One tablet by mouth daily ASPIRIN [id number] Eliaen Rodrigez PA-C End: 09-16-2010 take 1 tablet by mouth once daily ASPIRIN, 81MG (Oral Tablet) 1 qd for 0 days Refills: 0 Ordered: 16-Sep-2010 Edith Govea RN End : 16-Sep-2010 Inactive baclofen 10 mg oral tablet (2 sources) gamma-Aminobutyric Acid-ergic Agonist Start: 09-26-2024 take 1 tablet by mouth once daily Baclofen 10 mg tablet Active 10 mg PO DAILY February 3rd, 2025 1:00am spasms DULoxetine 60 mg delayed release oral capsule (20 sources) Serotonin and Norepinephrine Reuptake Inhibitor Start: 09-30-2023 Duloxetine (Cymbalta) 60 mg capsule,delayed release(DR/EC) Active 90 MG PO TWICE A DAY September 30, 2023 2:27pm Start: 09-19-2021 End: 09-30-2023 take 1 capsule by mouth twice daily Duloxetine (Cymbalta) 60 mg capsule,delayed release(DR/EC) Active 60 mg PO TWICE A DAY September 30, 2023 2:27pm depression Start: 09-05-2016 End: 07-27-2017 take 2 capsules by mouth twice daily Duloxetine 30 MG capsule Discontinued 60 mg PO TWICE A DAY September 05, 2016 1:00am July 27, 2017 3:43pm Start: 09-05-2016 End: 07-27-2017 take 60 mg by mouth twice daily Duloxetine Discontinued 60 MG PO TWICE A DAY September 05, 2016 1:00am July 27, 2017 3:43pm Start: 01-09-2011 take 1 capsule by mo [facility] twice daily CYMBALTA, 30MG (Oral Capsule Delayed Release Particles) [address] Part bid for 30 days Quantity: 60 {Capsule} Refills: 4 Ordered: 23-Jan-2016 Nerissa Rodriguez DO, DO, Kathleen Start : 23-Jan-2016 Active Start: 01-09-2011 [facility] CYMBALTA 60 MG CPEP One tablet by mouth twice daily DULOXETINE HCL [id number] Efrain Samuel MD famotidine 40 mg oral tablet (20 sources) Histamine-2 Receptor Antagonist Start: 07-26-2021 take 1 tablet by mouth once daily Famotidine 40 mg tablet Active 40 mg PO DAILY July 26, 2021 1:00am gerd Start: 01-03-2020 End: 03-10-2021 Famotidine 40 mg tablet Disc ontinued 1 NMA PO DAILY January 03, 2020 12:00am March 10, 2021 1:01pm Check with primary doctor Start: 01-03-2020 End: 03-10-2021 take 1 tablet by mouth once daily Famotidine Discontinued 1 tab PO DAILY January 03, 2020 12:00am March 10, 2021 1:01pm ferrous sulfate (20 sources) Start: 04-15-2023 take 1 tablet by lucia th twice daily Ferrous Sulfate 325 mg (65 mg iron) tablet Active 650 mg PO TWICE A DAY April 15, 2023 11:00am iron Start: 04-15-2023 take 1 tablet by lucia th twice daily Ferrous Sulfate 325 mg (65 mg iron) tablet Active 650 mg PO TWICE A DAY April 15, 2023 11:00am Start: 04-15-2023 take 650 mg by mouth twice daily Ferrous Sulfate Active 650 MG PO TWICE A DAY April 15, 2023 11:00am Start: 07-10-2021 End: 04-15-2023 take 1 tablet by mouth twice daily Ferrous Sulfate 325 mg (65 mg iron) tablet Discontinued 325 mg PO TWICE A DAY July 10, 2021 1:00am April 15, 2023 11:00am gabapentin 100 mg oral capsule (2 sources) Anti-epileptic Agent Start: 09-26-2024 take 1 capsule by mouth once daily Gabapentin 100 mg capsule Active 100 mg PO DAILY September 26, 2024 1:00am pain levothyroxine sodium 0.025 mg oral tablet (20 sources) l-Thyroxine Start: 11-30-2017 take 1 tablet by mouth once daily Levothyroxine 25 MCG tablet Active 25 ug PO DAILY November 30, 2017 12:00am thyroid Start: 02-26-2012 End: 10-28-2013 take 1 tablet by mouth once daily SYNTHROID 50 MCG TABS One tablet by mouth daily LEVOTHYROXINE SODIUM [id number] Efrain Samuel MD nitroglycerin 0.4 mg sublingual tablet (20 sources) Nitrate Vasodilator Start: 10-14-2017 Nitroglyce rin 0.4 mg tablet, sublingual Active 0.4 mg SL every 5 to 15 minutes as needed for chest pain 15 11October 14, 2017 1:00am until response; do not exceed 3 doses per event Start: 10-14-2017 Nitroglycerin Active 0.4 MG SL every 5 to 15 minutes October 14, 2017 1:00am until response; do not exceed 3 doses per event Start: 01-09-2011 NITROGLYCERIN 0.4 MG/HR PT24 1 tablet under tongue every 5 min up to 3 X NITROGLYCERIN [id number] Efrain Samuel MD Start: 01-09-2011 NITROGLYCERIN 0.4 MG SUBL 1 tablet under the tongue every 5 minutes times 3 as needed for chest pain. NITROGLYCERIN [id number] Anaya Everett AUTOMOTIVE MECHANICAL ENGINEER rosuvastatin calcium 40 mg oral tablet (20 sources) HMG-CoA Reductase Inhibitor Start: 04-09-2018 take 1 tablet by mouth once daily Rosuvastatin 40 mg tablet Active 40 mg PO daily April 09, 2018 12:00am hld Start: 12-10-2017 End: 04-09-2018 take 4 tablets by mouth at bedtime Rosuvastatin 10 MG tablet Discontinued 40 mg PO AT BEDTIME December 10, 2017 12:00am April 09, 2018 10:19am cholesterol Start: 12-10-2017 End: 04-09-2018 take 40 mg by mouth at bedtime Rosuvastatin Discontinu ed 40 MG PO AT BEDTIME December 10, 2017 12:00am April 09, 2018 10:19am Start: 01-15-2017 End: 11-13-2017 take 1 tablet by mouth once Rosuvastatin (Crestor) 10 mg tablet Discontinued 10 mg PO ONCE July 27, 2017 1:00am November 13, 2017 10:09am Vitamins A,C,J-Nfen-Eqhabt (Preservision Areds) 4,296 mcg-226 mg-90 mg capsule (2 sources) Start: 09-26-2024 Vitamins A,C,E -Zinc-Copper (Preservision Areds) 4,296 mcg-226 mg-90 mg capsule Active 1 NMA PO DAILY September 26, 2024 1:00am supplement Start: 09-26-2024 Vitamins A,C,E -Zinc-Copper (Preservision Areds) 4,296 mcg-226 mg-90 mg capsule Active 1 NMA PO DAILY September 26, 2024 1:00am Completed/Discontinued Medications Medication Drug Class(es) Dates Sig (Normalized) Sig (Original) acetaminophen 325 mg / HYDROcodone bitartrate 5 mg oral tablet (2 sources) Opioid Agonist Start: 08-30-2014 take 1-2 tablets by mouth every six hours as needed HYDROCODONE-ACETAMI NOPHEN, 5-325MG (Oral Tablet) 1-2 Tablet Tablet q6h prn for 0 days Quantity: 20 {Tablet} Refills: 0 Ordered: 7-Pj-2015 Nerissa Rodriguez DO, DO, Kathleen Start : 30-Aug-2014 Active Comments: twentycalled to murali Start: 07-28-2012 End: 08-27-2012 take 1 tablet by mouth three times daily as needed HYDROCODONE-ACETAMINOPHEN, 5-500MG (Oral Tablet) 1 (one) Tablet TID/PRN for 30 days Quantity: 30 {Tablet} Refills: 0 Ordered: 28-Jul-2012 Nerissa Rodriguez DO, DO, Kathleen Start : 28-Jul-2012 End : 27-Aug-2012 Inactive Comments: thirty Comment on above: [facility] acetic acid 20 mg/ml / hydrocortisone 10 mg/ml otic solution (1 source) Corticosteroid Start: 07-01-20 12 End: 10-02-19 15 VOSOL HC, 2-1% (Otic Solution) 1 (one) drop(s) each ear bid for 0 days Quantity: 1 {bottle(s)} Refills: 0 Ordered: 02-Oct-2014 Janay Edwards RN Start : 01-Jul-2012 End : 02-Oct-2014 Inactive amoxicillin 875 mg / clavulanate 125 mg oral tablet (1 source) Penicillin-class Antibacterial Start: 08-30-19 15 End: 09-13-19 15 take 1 tablet by mouth twice daily AUGMENTIN, 875-125MG (Oral Tablet) 1 Tablet BID for 14 days Quantity: 28 {Tablet} Refills: 0 Ordered: 30-Aug-2014 Nerissa Rodriguez DO, DO, Kathleen Start : 30-Aug-2014 End : 13-Sep-2014 Inactive apixaban 5 mg oral tablet (16 sources) Factor Xa Inhibitor Start: 11-24-19 18 End: 11-25-19 18 take 1 tablet by mouth twice daily Apixaban 5 mg tablet Discontinued 5 mg PO TWICE A DAY November 23, 2017 12:00am November 24, 2017 1:47pm Start: 07-02-2017 take 1 tablet by lucia th twice daily ELIQUIS 5 MG TABS One tablet by mouth twice daily APIXABAN [id number] Mena Holman RN atorvastatin 40 mg oral tablet (20 sources) HMG-CoA Reductase Inhibitor Start: 07-15-2016 End: 01-15-2017 take 1 tablet by mouth once daily ATORVASTATIN CALCIUM 40 MG TABS One tablet by mouth daily ATORVASTATIN CALCIUM [id number] Anaya E Karlos WING Start: 05-05-2012 End: 12-09-2012 take 1 tablet by mouth once daily LIPITOR 80 MG TABS One tablet by mouth daily ATORVASTATIN CALCIUM [id number] Efrain Samuel MD Start: 04-26-2009 End: 09-16-2010 take 1 tablet by mouth once daily LIPITOR, 80MG (Oral Tablet) 1 Tablet qd for 0 days Quantity: 30 {Tablet} Refills: 6 Ordered: 16-Sep-2010 Edith Govea RN Start : 26-Apr-2009 End : 16-Sep-2010 Inactive cefdinir 300 mg oral capsule (1 source) Cephalosporin Antibacterial Start: 04-10-2010 take 1 capsule by mouth twice daily OMNICEF, 300MG (Oral Capsule) 1 (one) Capsule Twice daily for 0 days Quantity: 14 {Capsule} Refills: 0 Ordered: 25-Apr-2010 Janay Edwards RN Start : 10-Apr-2010 Inactive celecoxib 200 mg oral capsule (1 source) Nonsteroidal Anti-inflammatory Drug Start: 11-19-2011 End: 11-19-2011 take 1 capsule by mouth once daily CELEBREX, 200MG (Oral Capsule) 1 Capsule daily for 0 days Quantity: 30 {Capsule} Refills: 3 Ordered: 19-Nov-2011 Janay Edwards RN Start : 19-Nov-2011 End : 19-Nov-2011 Inactive ciprofloxacin 500 mg oral tablet (1 source) Quinolone Antimicrobial Start: 09-09-2010 End: 09-16-2010 take 1 tablet by mouth twice daily CIPRO, 500MG (Oral Tablet) 1 Tablet bid for 10 days Quantity: 20 {Tablet} Refills: 0 Ordered: 16-Sep-2010 Edith Govea RN Start : 09-Sep-2010 End : 16-Sep-2010 Inactive 24 hr clarithromycin 500 mg extended release oral tablet (1 source) Macrolide Antimicrobial Start: 10-28-2013 End: 11-07-2013 take 2 tablets by mouth once daily BIAXIN XL PAC, 500MG (Oral Tablet Extended Release 24 Hour) 2 (two) Tablet ER 24HR daily for 10 days Quantity: 20 {Tablet} Refills: 0 Ordered: 28-Oct-2013 Roxanne Heard CNP Start : 28-Oct-2013 End : 07-Nov-2013 Inactive clindamycin 150 mg oral capsule (1 source) Lincosamide Antibacterial Start: 2010 take 1 capsule by mouth four times daily CLINDAMYCIN HCL, 150MG (Oral Capsule) 1 (one) Capsule qid for 0 days Quantity: 40 {Capsule} Refills: 0 Ordered: 25-Apr-2010 Janay Edwards RN Start : 11-Apr-2010 Inactive clopidogrel 75 mg oral tablet (20 sources) P2Y12 Platelet Inhibitor Start: 02-09-2018 End: 07-26-2021 take 1 tablet by mouth once daily Clopidogrel 75 mg tablet Discontinued 75 mg PO daily February 09, 2018 12:00am July 26, 2021 11:03am Check with primary doctor Start: 01-09-2011 End: 07-27-2017 take 1 tablet by mouth once daily Clopidogrel 75 MG tablet Discontinued 75 mg PO DAILY September 05, 2016 1:00am July 27, 2017 3:43pm cyclobenzaprine hydrochloride 10 mg oral tablet (1 source) Muscle Relaxant Start: 12-12-2008 take 1 tablet by mouth three times daily as needed for pain FLEXERIL, 10MG (Oral Tablet) Tablet TID prn muscle pain for 0 days Refills: 0 Ordered: 18-Mar-2010 Janay Edwards RN Start : 12-Dec-2008 Inactive Dextromethorphan (1 source) Uncompetitive U-keuevn-I-aspartat e Receptor Antagonist, Sigma-1 Agonist Start: 10-28-2013 End: 10-02-2014 DELSYM, 30MG/5ML (Oral Liquid Extended Release) 1 (one) Liquid ER Liquid ER bid for 0 days Quantity: 6 {Ounce} Refills: 0 Ordered: 02-Oct-2014 Janay Edwards RN Start : 28-Oct-2013 End : 02-Oct-2014 Inactive doxepin hydrochloride 10 mg oral capsule (1 source) Tricyclic Antidepressant Start: 09-04-2008 End: 09-27-2008 take 1 capsule by mouth once daily at bedtime DOXEPIN HCL, 10MG (Oral Capsule) 1 (one) Capsule QHS / HS for 0 days Refills: 0 Ordered: 27-Sep-2008 Nerissa Rodriguez DO, DO, Kathleen Start : 04-Sep-2008 End : 27-Sep-2008 Discontinued Comments: slept for day and half Comment on above: slept for day and mccarthy lf doxycycline hyclate 100 mg oral capsule (2 sources) Tetracycline-class Drug Start: 09-28-2024 End: 05-01-2025 take 1 capsule by mouth twice daily Doxycycline Hyclate 100 mg capsule Discontinued 100 mg PO TWICE A DAY 14 September 28, 2024 1:00am May 01, 2025 3:38pm ergocalciferol 1.25 mg oral capsule (1 source) Provitamin D2 Compound Start: 11-21-2011 End: 03-20-2012 take 2 capsules by mouth every week, then take 1 capsule by mouth every week ERGOCALCIFEROL, [id number] (Oral Capsule) 2 (two) Capsule weekly x4 wks and then 1 weekly for 120 days Quantity: 20 {Capsule} Refills: 0 Ordered: 25-Mar-2012 Edith Govea RN Start : 21-Nov-2011 End : 20-Mar-2012 Inactive Comments: called to murali Sharma Comment on above: called to murali Sharma etodolac 400 mg oral tablet (1 source) Nonsteroidal Anti-inflammatory Drug Start: 11-21-2011 End: 03-25-2012 take 2 tablets by mouth once daily ETODOLAC, 400MG (Oral Tablet) 2 (two) Tablet qd for 0 days Quantity: 60 {Tablet} Refills: 0 Ordered: 25-Mar-2012 Janay Edwards RN Start : 21-Nov-2011 End : 25-Mar-2012 Inactive ezetimibe 10 mg oral tablet (1 source) Dietary Cholesterol Absorption Inhibitor Start: 10-11-2014 take 1 tablet by mouth once daily ZETIA, 10MG (Oral Tablet) 1 (one) Tablet Tablet qd for 0 days Quantity: 30 {Tablet} Refills: 3 Ordered: 11-Oct-2014 Edith Govea RN Start : 11-Oct-2014 Active 12 hr guaiFENesin 600 mg extended release oral tablet (3 sources) Start: 09-28-2024 End: 10-04-2024 take 2 tablets by mouth twice daily, then take 1 tablet by mouth every twelve hours Guaifenesin (Mucinex) 600 mg tablet extended release 12hr Discontinued 1200 mg PO TWICE A DAY 20 September 28, 2024 1:00am October 04, 2024 11:54am Start: 10-28-2013 End: 10-02-2014 MUCINEX, 600MG (Oral Tablet Extended Release 12 Hour) 1 (one) Tablet ER 12HR Tablet ER 12HR bid for 0 days Quantity: 30 {Tablet} Refills: 0 Ordered: 02-Oct-2014 Janay Edwards RN Start : 28-Oct-2013 End : 02-Oct-2014 Inactive hydroCHLOROthiazide 50 mg / triamterene 75 mg oral tablet (1 source) Potassium-sparing Diuretic, Thiazide Diuretic Start: 12-12-2008 End: 03-26-2009 MAXZIDE, 75-50MG (Oral Tablet) for 0 days Refills: 0 Ordered: 12-Dec-2008 Janay Edwards RN Start : 12-Dec-2008 End : 26-Mar-2009 Inactive 24 hr isosorbide mononitrate 60 mg extended release oral tablet (20 sources) Nitrate Vasodilator Start: 10-14-2017 End: 02-14-2020 take 1 tablet by mouth once daily, then take 1 tablet by mouth every twenty-fou r hours Isosorbide Mononitrate 60 mg tablet extended release 24 hr Discontinued 60 mg PO daily April 09, 2018 12:00am February 14, 2020 10:20am Start: 07-15-2016 End: 10-14-2017 take 1 tablet by mouth once daily Isosorbide Mononitrate 30 MG tablet Discontinued 30 mg PO DAILY September 05, 2016 1:00am October 14, 2017 10:41am lactobacillus rhamnosus gg [id number] unt oral capsule (1 source) Start: 11-21-2011 End: 12-05-2011 take 1 capsule by mouth twice daily ISHALLE, 10B CELL (Oral Capsule) 1 Capsule bid for 14 days Quantity: 28 {Capsule} Refills: 0 Ordered: 25-Dec-2011 Félix RODRIGUEZ Lenora Start : 21-Nov-2011 End : 05-Dec-2011 Inactive lansoprazole 30 mg delayed release oral capsule (1 source) Proton Pump Inhibitor Start: 06-09-2008 End: 09-04-2008 take 1 capsule by mouth once daily PREVACID, 30MG (Oral Capsule Delayed Release) 1 (one) Capsule DR Daily for 0 days Quantity: 30 {Capsule_DR} Refills: 2 Ordered: 09-Jun-2008 Janay Edwards RN Start : 09-Jun-2008 End : 04-Sep-2008 Inactive levoFLOXacin 500 mg oral tablet (1 source) Quinolone Antimicrobial Start: 12-12-2008 End: 01-11-2009 take 1 tablet by mouth once daily LEVAQUIN, 500MG (Oral Tablet) Tablet QD for 10 days Quantity: 10 {Tablet} Refills: 0 Ordered: 12-Dec-2008 Roxanne Heard CNP Start : 12-Dec-2008 End : 11-Jan-2009 Inactive lidocaine 0.05 mg/mg medicated patch (1 source) Antiarrhythmic, Amide Local Anesthetic End: 09-04-2008 apply 1 dose transdermal route once daily LIDODERM, 5% (External Patch) 1 Patch qd for 0 days Quantity: 30 {Patch} Refills: 0 Ordered: 23-Aug-2008 Janay Edwards RN End : 04-Sep-2008 Inactive lisinopril 20 mg oral tablet (20 sources) Angiotensin Converting Enzyme Inhibitor Start: 09-05-2016 End: 07-27-2017 take 2 tablets by mouth once daily Lisinopril 10 MG tablet Discontinued 20 mg PO DAILY September 05, 2016 1:00am July 27, 2017 3:43pm Start: 09-05-2016 End: 07-27-2017 take 20 mg by mouth once daily Lisinopril Discontinued 20 MG PO DAILY September 05, 2016 1:00am July 27, 2017 3:43pm Start: 12-09-2012 End: 10-19-2020 take 1 tablet by mouth once daily Lisinopril 20 mg tablet Discontinued 20 mg PO daily 90 3 November 03, 2019 2:53pm October 19, 2020 2:26pm bp ctrl Start: 12-09-2012 take 1 tablet by lucia th once daily LISINOPRIL 10 MG TABS One tablet by mouth daily LISINOPRIL [id number] Eliane Rodrigez PA-C Start: 01-09-2011 take 1 tablet by lucia th once daily LISINOPRIL 5 MG TABS One tablet by mouth daily LISINOPRIL [id number] Efrain Samuel MD LORazepam 1 mg oral tablet (1 source) Benzodiazepine Start: 10-02-2014 take 1 tablet by mouth every hour ATIVAN, 1MG (Oral Tablet) 1 (one) Tablet Tablet one hr prior to flying for 0 days Quantity: 10 {Tablet} Refills: 0 Ordered: 02-Oct-2014 Janay Edwards RN Start : 02-Oct-2014 Active Comments: ten Comment on above: ten 24 hr metFORMIN hydrochloride 500 mg extended release oral tablet (20 sources) Biguanide Start: 08-30-2014 End: 10-02-2014 take 1 tablet by mouth once daily METFORMIN HCL ER, 500MG (Oral Tablet Extended Release 24 Hour) 1 Tablet ER 24HR qd for 0 days Quantity: 90 {Tablet_ER_24HR} Refills: 2 Ordered: 02-Oct-2014 Janay Edwards RN Start : 30-Aug-2014 End : 02-Oct-2014 Inactive Start: 05-05-2012 End: 07-15-2016 take 1 tablet by mouth once daily METFORMIN HCL ER (OSM) 500 MG [id number] One tablet by mouth daily METFORMIN HCL [id number] Efrain Samuel MD metoprolol tartrate 50 mg oral tablet (20 sources) beta-Adrenergic Linn Start: 09-05-2016 End: 12-01-2017 take 1 tablet by mouth twice daily Metoprolol Succinate 50 MG tablet Discontinued 50 mg PO TWICE A DAY September 05, 2016 1:00am December 01, 2017 2:34pm bp ctrl Start: 01-09-2011 End: 03-09-2021 take 1 tablet by mouth twice daily Metoprolol Tartrate 50 mg tablet Discontinued 50 mg PO TWICE A DAY 180 3 October 19, 2020 2:26pm March 09, 2021 12:44am niacin 500 mg extended release oral tablet (20 sources) Nicotinic Acid Start: 01-09-2011 End: 11-04-2011 take 1 tablet by mouth at bedtime NIASPAN 500 MG CR-TABS One tablet by mouth at bedtime, take ASA 30 mins before NIACIN (ANTIHYPERLIPIDEMIC) [id number] Tracy Valencia Start: 01-09-2011 End: 11-04-2011 take 1 tablet by mouth at bedtime NIASPAN 500 MG CR-TABS One tablet by mouth at bedtime, take ASA 30 mins before NIACIN (ANTIHYPERLIPIDEMIC) [id number] Tracy Valencia omeprazole 40 mg delayed release oral capsule (20 sources) Proton Pump Inhibitor Start: 04-09-2018 End: 01-03-2020 take 1 capsule by mouth once daily Omeprazole 40 mg capsule,delayed release(DR/EC) Discontinued 40 mg PO daily April 09, 2018 10:17am January 03, 2020 9:11am acid reflux Start: 12-03-2017 End: 04-09-2018 take 1 capsule by mouth twice daily Omeprazole 40 mg capsule,delayed release(DR/EC) Discontinued 40 mg PO TWICE A DAY 60 0 December 03, 2017 2:57pm April 09, 2018 10:21am acid reflux Start: 11-23-2017 End: 12-03-2017 take 1 capsule by mouth once daily Omeprazole 40 mg capsule,delayed release(DR/EC) Discontinued 40 mg PO daily November 23, 2017 12:00am December 03, 2017 2:57pm acid reflux Start: 01-15-2017 take 1 tablet by lucia th once daily OMEPRAZOLE 40 MG CPDR One tablet by mouth daily OMEPRAZOLE [id number] Efrain Samuel MD phenazopyridine hydrochlorid e 100 mg oral tablet (1 source) Start: 09-09-2010 PYRIDIUM, 100M G (Oral Tablet) 1 (100 MG) Start : 09-Sep-2010 Inactive polysaccharide iron complex 150 mg oral capsule (20 sources) Start: 04-09-2018 End: 07-10-2021 Polysaccharide Iron Complex (Ferrex 150) 150 mg iron capsule Discontinued 300 mg PO daily April 09, 2018 10:16am July 10, 2021 4:38pm anemia Start: 11-13-2017 End: 04-09-2018 Polysaccharide Iron Complex (Ferrex 150) 150 mg iron capsule Discontinued 150 mg PO daily November 13, 2017 12:00am April 09, 2018 10:21am anemia predniSONE 20 mg oral tablet (2 sources) Start: 09-28-2024 End: 10-04-2024 take 1 tablet by mouth twice daily Prednisone 20 mg tablet Discontinued 20 mg PO TWICE A DAY 10 0 September 28, 2024 1:00am October 04, 2024 11:54am red yeast rice 600 mg oral tablet (18 sources) Start: 06-08-2013 End: 01-15-2017 take 2 tablets by mouth twice daily RED YEAST RICE 600 MG TABS Two tablets by mouth twice daily RED YEAST RICE EXTRACT [id number] Eliane Rodrigez PA-C simvastatin 40 mg oral tablet (20 sources) HMG-CoA Reductase Inhibitor Start: 12-09-2012 End: 06-08-2013 take 1 tablet by mouth once daily SIMVASTATIN 40 MG TABS One tablet by mouth daily SIMVASTATIN [id number] Efrain Samuel MD Start: 01-09-2011 End: 07-01-2012 take 1 tablet by mouth once daily SIMVASTATIN, 80MG (Oral Tablet) 1 Tablet qd for 990 days Refills: 0 Ordered: 01-Jul-2012 Janay Edwards RN Start : 07-Nov-2011 End : 01-Jul-2012 Inactive traMADol hydrochloride 50 mg oral tablet (13 sources) Opioid Agonist Start: 01-10-2020 End: 02-14-2020 take 1 tablet by mouth every eight hours as needed for pain Tramadol 50 mg tablet Discontinued 50 mg PO Q8H as needed for pain 20 0 January 10, 2020 12:00am February 14, 2020 10:21am traZODone hydrochloride 50 mg oral tablet (13 sources) Serotonin Reuptake Inhibitor Start: 01-03-2020 End: 07-10-2021 take 1 tablet by mouth at bedtime Trazodone 50 mg tablet Discontinued 50 mg PO AT BEDTIME January 03, 2020 12:00am July 10, 2021 4:38pm insomnia varenicline 1 mg oral tablet (10 sources) Partial Cholinergic Nicotinic Agonist Start: 07-15-2016 take 2 tablets by mouth once daily CHANTIX 1 MG TABS Two tablets by mouth daily VARENICLINE TARTRATE [id number] Anaya Everett [employer] vitamin b12 1 mg/ml injectable solution (1 source) Vitamin B12 Start: 01-31-2015 CYANOCOBALAMIN, 1000MCG/ML (Injection Solution) 1 (one) Solution Solution weekly injections for 0 days Quantity: 1 {Each} Refills: 0 Ordered: 26-Jul-2015 Nerissa Rodriguez DO, DO, Kathleen Start : 31-Jan-2015 Active Comments: has injetion in our office Comment on above: has injetion in our office vitamin d 1000 unt oral tablet (20 sources) Start: 12-11-2015 End: 07-15-2016 take 50247 [IU] by mouth once daily VITAMIN D 1000 UNIT TABS 10,000 IU per day (OTC), One tablet by mouth daily CHOLECALCIFEROL [id number] Anaya Everett NP Start: 12-11-2015 take 1 tablet by lucia th once daily VITAMIN D 1000 UNIT TABS 10,000 IU per day (OTC), One tablet by mouth daily CHOLECALCIFEROL [id number] Efrain Samuel MD Start: 12-11-2015 End: 07-15-2016 take 1 tablet by mouth once daily VITAMIN D 1000 UNIT TABS 10,000 IU per day (OTC), One tablet by mouth daily CHOLECALCIFEROL [id number] Anaya Everett NP Start: 12-11-2015 take 1 tablet by lucia th once daily VITAMIN D 1000 UNIT TABS 10,000 IU per day (OTC), One tablet by mouth daily CHOLECALCIFEROL [id number] Efrain Samuel MD Start: 12-11-2015 End: 07-15-2016 take 1 tablet by mouth once daily VITAMIN D 1000 UNIT TABS 10,000 IU per day (OTC), One tablet by mouth daily CHOLECALCIFEROL [id number] Anaya Everett NP warfarin sodium 5 mg oral tablet (20 sources) Vitamin K Antagonist Start: 01-04-2018 End: 02-09-2018 Warfarin Discontinued 8.5 MG PO DAILY@1699January 04, 2018 11:24pm February 09, 2018 11:08am 8.5 mg total (6 mg tab + 2.5 mg) Start: 12-03-2017 End: 02-09-2018 Warfarin 5 MG tablet Discont inued 8.5 mg PO DAILY@1699January 04, 2018 11:24pm February 09, 2018 11:08am blood thinner 8.5 mg total (6 mg tab + 2.5 mg) Start: 07-27-2017 End: 11-13-2017 take 1 tablet by mouth once daily Warfarin (Coumadin) 1 mg tablet Discontinued 1 mg PO daily July 27, 2017 1:00am November 13, 2017 10:11am Problems Active Problems Problem Classification Problem Date Documented Date Episodic/Chronic Abdominal pain (2 sources) Epigastric pain; Translations: [Epigastric pain] Resolved: 9 05-25-2013 Episodic Acute bronchitis (1 source) Acute bronchitis, unspecified; Translations: [Acute bronchitis, unspecified] Onset: 5 Episodic Acute cerebrovascular disease (2 sources) Acute cerebrovascular disease Anxiety disorders (2 sources) Anxiety; Translations: [Anxiety] 08-30-2015 Chronic Comment on above: assoc with flying Aortic and peripheral arterial embolism or thrombosis (1 source) Embolism and thrombosis of arteries of the lower extremities Onset: 7 Chronic Coronary atherosclerosis and other heart disease (20 sources) Coronary arteriosclerosis; Translations: [Angina pectoris] Onset: 1 01-09-2011 Chronic Deficiency and other anemia (15 sources) Iron deficiency anemia due to blood loss; Translations: [Iron deficiency anemia secondary to blood loss (chronic)] 05-09-2021 Chronic Deficiency and other anemia (14 sources) Iron deficiency anemia secondary to blood loss (chronic); Translations: [Iron deficiency anemia secondary to blood loss (chronic)] Onset: 5 Chronic Deficiency and other anemia (2 sources) Iron deficiency anemia; Translations: [Iron deficiency anemia, unspecified] 10-04-2024 Episodic Developmental disorders (13 sources) Expressive language disorder; Translations: [Expressive language disorder] 02-09-2019 Chronic Diabetes mellitus without complication (10 sources) Abnormal glucose tolerance test; Translations: [Abnormal glucose tolerance test] 08-30-2015 Episodic Disorders of lipid metabolism (20 sources) Hyperlipidemia; Translations: [Hypercholesterolemia] Onset: 1 01-09-2011 Chronic Disorders of teeth and jaw (1 source) Dental caries, unspecified; Translations: [CARIES, DENTAL, UNSPECIFIED] 08-30-2015 Episodic Comment on above: left lower tooth and gum pain Essential hypertension (20 sources) Hypertensive disorder; Translations: [Essential (primary) hypertension] Onset: 1 01-09-2011 Chronic Gastrointestinal hemorrhage (19 sources) Blood in stool; Translations: [HEMATOCHEZIA] 08-30-2015 Episodic Genitourinary symptoms and ill-defined conditions (6 sources) Retention of urine; Translations: [Urinary retention] Resolved: 1 08-30-2015 Episodic Comment on above: she is going to stop all caffeinedifficulty voiding Heart valve disorders (13 sources) Aortic stenosis, non-rheumatic ; Translations: [Nonrheumatic aortic (valve) stenosis] 02-15-2019 Chronic Heart valve disorders (3 sources) Heart murmur; Translations: [Heart murmur] 08-30-2015 Episodic Immunizations and screening for infectious disease (8 sources) Needs influenza immunization; Translations: [Need for prophylactic vaccination and inoculation against influenza] 08-30-2015 Episodic Nausea and vomiting (13 sources) Nausea and vomiting; Translations: [Nausea with vomiting, unspecified] 02-09-2019 Episodic Nonspecific chest pain (20 sources) Precordial pain; Translations: [Chest pain] Onset: 1 Resolved: 6 01-09-2011 Episodic Nutritional deficiencies (2 sources) Vitamin D deficiency; Translations: [Vitamin D deficiency, unspecified] 08-30-2015 Chronic Nutritional deficiencies (4 sources) Cobalamin deficiency; Translations: [Vitamin B12 deficiency] 08-30-2015 Episodic Occlusion or stenosis of precerebral arteries (10 sources) Disorder of carotid artery; Translations: [Occlusion and stenosis of unspecified carotid artery] Onset: 3 06-08-2013 Chronic Occlusion or stenosis of precerebral arteries (13 sources) Bilateral stenosis of carotid arteries; Translations: [Occlusion and stenosis of bilateral carotid arteries] 02-14-2020 Chronic Other and unspecified benign neoplasm (1 source) Benign neoplasm of skin; Translations: [Benign neoplasm of skin] 08-30-2015 Episodic Other circulatory disease (1 source) History of cerebrovascular accident; Translations: [History of stroke (Renamed from Cerebrovascular accident, old)] 08-30-2015 Episodic Other connective tissue disease (1 source) Muscle pain; Translations: [Myalgia and myositis] 08-30-2015 Episodic Other connective tissue disease (1 source) Tenosynovitis; Translations: [Other tenosynovitis of hand and wrist] 08-30-2015 Episodic Comment on above: nsaid for 5 days onl y bc on plaix , ice, and stop repetitive micro trauma Other connective tissue disease (11 sources) Myalgia Episodic Other connective tissue disease (2 sources) Pain in lower limb Episodic Other ear and sense organ disorders (1 source) Disorder of external ear; Translations: [Irritation of external ear canal] 08-30-2015 Episodic Other gastrointestinal disorders (3 sources) Irritable bowel syndrome; Translations: [Irritable bowel syndrome] 08-30-2015 Chronic Comment on above: stable Other gastrointestinal disorders (15 sources) Diarrhea; Translations: [Diarrhea] Resolved: 3 05-25-2013 Episodic Other hematologic conditions (17 sources) Macrocytosis; Translations: [Macrocytosis] 09-19-2015 Chronic Other hematologic conditions (1 source) Macrocytosis - no anemia; Translations: [Macrocytosis without anemia] 08-30-2015 Chronic Other hematologic conditions (13 sources) Other specified diseases of blood and blood-forming organs; Translations: [Other specified diseases of blood and blood-forming organs] Onset: Chronic Other liver diseases (2 sources) Steatosis of liver; Translations: [Fatty liver] 08-30-2015 Chronic Other liver diseases (7 sources) Fatty liver Chronic Other lower respiratory disease (4 sources) Cough; Translations: [Cough] Onset: 0 Resolved: 5 07-26-2015 Episodic Other lower respiratory disease (4 sources) Wheezing; Translations: [Wheezing] Onset: 0 Resolved: 2 05-25-2013 Episodic Other lower respiratory disease (3 sources) Dyspnea Episodic Other lower respiratory disease (3 sources) Hypoxia; Translations: [Hypoxemia] 10-06-2024 Episodic Other nervous system disorders (10 sources) Ulnar nerve entrapment; Translations: [Lesion of ulnar nerve, unspecified upper limb] Onset: 6 08-21-2016 Chronic Other nervous system disorders (1 source) Speech problem; Translations: [Inappropriate speech] 08-30-2015 Episodic Comment on above: carotid with cebul n ov /15-- stable Other nervous system disorders (1 source) Staggering gait; Translations: [Staggering gait] 08-30-2015 Episodic Other nervous system disorders (13 sources) Dysarthria; Translations: [Dysarthria and anarthria] 02-09-2019 Episodic Other non-traumatic joint disorders (1 source) Joint pain; Translations: [Pain in unspecified joint] 08-30-2015 Episodic Comment on above: take celebrex prn -- educated thinning of blood with being on plavix -- adn with cad - dont take daily-- pt has seen dr pascal already once yrs ago said swelling and pain related to fibro -- Other non-traumatic joint disorders (1 source) Pain in joint, shoulder region; Translations: [Shoulder joint pain, unspecified laterality] 08-30-2015 Episodic Comment on above: has been on aleve an d ibuprofen x 2 wks with out relief Other nutritional; endocrine; and metabolic disorders (10 sources) Calcinosis; Translations: [Other disorders of calcium metabolism] Onset: 6 08-22-2016 Chronic Other nutritional; endocrine; and metabolic disorders (20 sources) Finding of body mass index; Translations: [Body mass index (BMI) 36.0-36.9, adult] Onset: 4 Resolved: 6 11-29-2015 Chronic Other nutritional; endocrine; and metabolic disorders (8 sources) Body mass index 30+ - obesity; Translations: [Body mass index (BMI) 32.0-32.9, adult] 10-20-2022 Chronic Other nutritional; endocrine; and metabolic disorders (1 source) Body mass index (BMI) 32.0-32.9, adult; Translations: [Body Mass Index 32.0-32.9, adult] 10-20-2022 Chronic Other nutritional; endocrine; and metabolic disorders (8 sources) Unintentional weight loss; Translations: [Abnormal weight loss] 10-21-2022 Episodic Other nutritional; endocrine; and metabolic disorders (1 source) Abnormal weight loss; Translations: [Loss of weight] 10-20-2022 Episodic Other upper respiratory infections (4 sources) Acute sinusitis; Translations: [Acute sinusitis, unspecified] 08-30-2015 Episodic Residual codes; unclassified (8 sources) Sleep apnea; Translations: [Sleep apnea, unspecified] 10-20-2022 Chronic Residual codes; unclassified (1 source) Sleep apnea, unspecified; Translations: [Unspecified sleep apnea] 10-20-2022 Chronic Residual codes; unclassified (1 source) Edema; Translations: [GENERALIZED EDEMA] 08-30-2015 Episodic Comment on above: all labs normal-- pt hasnt sched echo yet Residual codes; unclassified (1 source) Postmenopausal state; Translations: [Postmenopausal] 08-30-2015 Episodic Skin and subcutaneous tissue infections (8 sources) Cellulitis; Translations: [Cellulitis] Resolved: 2 05-25-2013 Episodic Substance-related disorders (20 sources) Tobacco dependence syndrome; Translations: [Tobacco user] Onset: 1 01-09-2011 Chronic Comment on above: encouraged cessation Superficial injury; contusion (1 source) Contusion of upper limb; Translations: [Hematoma of arm] 08-30-2015 Episodic Comment on above: warm comprdses and i f doesnt breask down more nad pain peristent rto for imagin g Thyroid disorders (8 sources) Hypothyroidism; Translations: [Hypothyroidism] 08-30-2015 Chronic Unclassified (3 sources) Body mass index (BMI) 39.0-39.9, adult; Translations: [Body mass index (BMI) 36.0-36.9, adult] Onset: 4 Resolved: 6 02-06-2015 Chronic Unclassified (1 source) Placement of stent in coronary artery ; Translations: [Presence of coronary angioplasty implant and graft] Onset: 1 11-29-2015 Unclassified (1 source) Postoperative physical examination; Translations: [Encounter for other specified surgical aftercare] Onset: 7 09-23-2016 Unclassified (1 source) Long-term drug therapy; Translations: [Long-term (current) use of other medications] Onset: 2 10-28-2011 Unclassified (1 source) Unknown / UNK(Unknown) Onset: 7 Unclassified (20 sources) Unclassified (1 source) Hypercholesteremia Unclassified (1 source) Inappropriate speech Unclassified (1 source) Staggering gait Unclassified (8 sources) Hypercholesteremia (272.0) Unclassified (4 sources) DEFICIENCY, VITAMIN D NOS (268.9) Unclassified (1 source) Hematoma of arm Unclassified (1 source) Need for vaccination against Streptococcus pneumoniae Unclassified (4 sources) Limb pain (729.5) Unclassified (2 sources) CVA (434.91) Unclassified (3 sources) ARTHRALGIAS 719.40 Unclassified (3 sources) BRONCHITIS, NOT SPECIFIED ACUTE OR CHRONIC (490.) Unclassified (1 source) TENOSYNOVITIS, HAND/WRIST NEC (727.05) Unclassified (2 sources) GENERALIZED EDEMA Unclassified (3 sources) SYMPTOMS INVOLVING RESPIRATORY SYSTEM AND OTHER CHEST SYMPTOMS; COUGH (786.2) Unclassified (5 sources) Elevated Blood Pressure without diagnosis of Hypertension (796.2) Unclassified (1 source) Low back pain, unspecified; Translations: [Low back pain, unspecified] Onset: Past or Other Problems Problem Classification Problem Date Documented Da te Episodic/Chronic Acute cerebrovascular disease (1 source) Cerebral infarction; Translations: [Cerebral infarction, unspecified] Resolved: 07-28-2012 07-26-2015 Chronic Chronic obstructive pulmonary disease and bronchiectasis (1 source) Bronchitis; Translations: [Bronchitis] Onset: 05-20-2010 Resolved: 03-25-2012 05-29-2015 Episodic Coronary atherosclerosis and other heart disease (10 sources) Coronary angioplasty status; Translations: [Percutaneous transluminal coronary angioplasty status] Onset: 01-09-2011 01-09-2011 Episodic Deficiency and other anemia (1 source) Deficiency and other anemia Fluid and electrolyte disorders (1 source) Hypokalemia; Translations: [Hypokalemia] Onset: 10-20-2024 Episodic Influenza (4 sources) Influenza due to Influenza A virus; Translations: [Influenza due to other identified influenza virus with other respiratory manifestations] Onset: 09-28-2024 10-06-2024 Episodic Malaise and fatigue (1 source) Weakness; Translations: [Weakness] Onset: 10-08-2024 Episodic Neoplasms of unspecified nature or uncertain behavior (10 sources) Synovial chondromatosis; Translations: [Neoplasm of uncertain behavior of connective and other soft tissue] Onset: 08-21-2016 08-21-2016 Episodic Other aftercare (9 sources) Postoperative physical examination; Translations: [Encounter for other specified surgical aftercare] Onset: 09-23-2016 09-23-2016 Episodic Other aftercare (9 sources) Long-term drug therapy; Translations: [Long-term (current) use of other medications] Onset: 10-28-2011 10-28-2011 Episodic Other circulatory disease (1 source) Elevated blood-pressure reading without diagnosis of hypertension; Translations: [Elevated blood-pressure reading without diagnosis of hypertension] Resolved: 03-18-2010 05-29-2015 Episodic Other connective tissue disease (10 sources) Other specified disorders of synovium and tendon, unspecified site; Translations: [Heterotopic ossification of tendon] Onset: 09-23-2016 09-23-2016 Episodic Other connective tissue disease (1 source) Pain in limb; Translations: [Limb pain] Resolved: 05-25-2013 07-10-2015 Episodic Comment on above: R arm pain over delt oid??-- strain / tears -? need mri:?-- referred to ortho and did PT == 95% better but occassionally flares - treated more neck area Other lower respiratory disease (11 sources) Dyspnea on exertion; Translations: [SOB (shortness of breath) on exertion] Onset: 05-20-2010 Resolved: 03-25-2012 07-15-2016 Episodic Other lower respiratory disease (1 source) Hypoxemia; Translations: [Hypoxemia] Onset: 09-28-2024 Episodic Other non-traumatic joint disorders (10 sources) Pain in elbow; Translations: [Pain in left elbow] Onset: 08-21-2016 08-21-2016 Episodic Other screening for suspected conditions (not mental disorders or infectious disease) (18 sources) Thyroid hormone tests abnormal; Translations: [Abnormal TSH] Onset: 08-29-2024 08-30-2015 Episodic Comment on above: Due January 2020 Other skin disorders (1 source) Localized superficial swelling, mass, or lump; Translations: [SWELLING, NOS] Resolved: 01-11-2009 05-25-2013 Episodic Comment on above: lip--no meds???abces s Other upper respiratory disease (1 source) Nasal sinus problem; Translations: [Sinus drainage] Resolved: 10-02-2014 10-02-2014 Episodic Phlebitis; thrombophlebitis and thromboembolism (4 sources) H/O: Deep vein thrombosis; Translations: [Personal history of other venous thrombosis and embolism] Onset: 07-01-2017 07-01-2017 Episodic Residual codes; unclassified (12 sources) FH: Raised blood lipids; Translations: [FH: Hypertension] 02-06-2015 Episodic Residual codes; unclassified (9 sources) FH: Hypertension; Translations: [Family history of ischemic heart disease and other diseases of the circulatory system] 02-06-2015 Episodic Residual codes; unclassified (9 sources) Family history of coronary arteriosclerosis; Translations: [Family history of ischemic heart disease and other diseases of the circulatory system] 02-06-2015 Episodic Residual codes; unclassified (1 source) Asymptomatic menopausal state; Translations: [Asymptomatic menopausal state] Onset: 12-30-2024 Episodic Screening and history of mental health and substance abuse codes (1 source) Personal history of nicotine dependence; Translations: [Personal history of nicotine dependence] Onset: 08-15-2024 Episodic Spondylosis; intervertebral disc disorders; other back problems (14 sources) Sciatica; Translations: [Sciatica, unspecified side] Onset: 06-18-2024 02-20-2021 Episodic Unclassified (1 source) 3 stents 08-30-2015 Comment on above: 12/20/08 Unclassified (2 sources) NEOPLASM, UNCERTAIN WHETHER BENIGN OR MALIGNANT 08-30-2015 Comment on above: bladder wall Unclassified (4 sources) Unspecified Diagnosis 08-30-2015 Unclassified (1 source) Well woman exam Unclassified (1 source) Encounter for gynecological examination without abnormal finding Unclassified (1 source) Encounter for screening mammogram for breast cancer (Renamed from Encounter for screening mammogram for malignant neoplasm of breast) Unclassified (1 source) Postmenopausal Unclassified (1 source) SCREENING FOR HUMAN PAPILLOMAVIRUS (HPV) (V73.81) Unclassified (1 source) Encounter for screening for malignant neoplasm of colon (Renamed from Special screening for malignant neoplasms, colon) Unclassified (2 sources) Sinus drainage Unclassified (1 source) External Ear Irritation (698.9) Unclassified (1 source) CARIES, DENTAL, UNSPECIFIED (521.00) Unclassified (1 source) Abnormal TSH (794.5) Unclassified (1 source) Pain in joint involving shoulder region (719.41) Unclassified (1 source) Well Woman Exam (V72.31) (Pap,Mammo,Routine Female) (Renamed from Well Woman V72.31 (p,m)) Unclassified (4 sources) IRRITATED MOLE, BENIGN NEOPLASM OF SKIN (216.5) Unclassified (1 source) SWELLING, NOS (782.2) Results Test Name Value Interpretation Reference Range Facility Absolute lymphocyte countOrd ered By: Simon Ulloa on 05-01-2025 Lymphocytes Auto (Unsp spec) [#/Vol] 0.67 10*3/uL Low 0.83-4.51 [facility] Absolute neutrophil countOrd ered By: Simon Ulloa on 05-01-2025 Neutrophils (Bld) [#/Vol] 3.7 10*3/uL 2.0-7.7 [facility] Automated lymphocyte count a s percentage of total leukocytesOrdered By: Simon Garnerarron on 05-01-2025 Lymphocytes/100 WBC Auto (Unsp spec) 12.9 % Low 19-41 [facility] Basophil percentageOrdered B y: Simon Garnerarron on 05-01-2025 Basophils/100 WBC (Bld) 0.8 % 0-1 [facility] CBC W/Diff, Automatedon Absolute Lymph 0.67 X10 3/uL Low 0.83-4.51 [facility] Comment on above: Performed By: #### L 501.2300, L500.2500, L501.5200, L100.0100 #### [facility] [address] [place], [address] Absolute Neut 3.7 X10 3/uL Normal 2.0-7.7 [facility] Comment on above: Performed By: #### L 501.2300, L500.2500, L501.5200, L100.0100 #### [facility] [address] [place], [address] Basophils/100 WBC (Bld) 0.8 % Normal 0-1 [facility] Comment on above: Performed By: #### L 501.2300, L500.2500, L501.5200, L100.0100 #### [facility] [address] [place], [address] Eosinophils/100 WBC (Bld) 0.6 % Normal 0-5 [facility] Comment on above: Performed By: #### L 501.2300, L500.2500, L501.5200, L100.0100 #### [facility] [address] [place], [address] Erythrocyte distribution width (RBC) [Ratio] 14.0 % Normal 11.6-14.6 [facility] Comment on above: Performed By: #### L 501.2300, L500.2500, L501.5200, L100.0100 #### [facility] [address] [place], [address] Hematocrit (Bld) [Volume fraction] 34.6 % Low 37-47 [facility] Comment on above: Performed By: #### L 501.2300, L500.2500, L501.5200, L100.0100 #### [facility] [address] [place], [address] Hemoglobin (Bld) [Mass/Vol] 11.1 g/dL Low 12.0-15.0 [facility] Comment on above: Performed By: #### L 501.2300, L500.2500, L501.5200, L100.0100 #### [facility] [address] [place], [address] IG% 0.400 Normal 0.0-0.9 [facility] Comment on above: Result Comment: IG% - Immature Granulocytes (promyelocytes, myelocytes and metamyelocytes) > 1% indicates that a LEFT SHIFT is Present. Performed By: #### L 501.2300, L500.2500, L501.5200, L100.0100 #### [facility] [address] [place], [address] Lymphocytes/100 WBC (Bld) 12.9 % Low 19-41 [facility] Comment on above: Performed By: #### L 501.2300, L500.2500, L501.5200, L100.0100 #### [facility] [address] [place], [address] MCH (RBC) [Entitic mass] 34.8 pg High 27.0-32.0 [facility] Comment on above: Performed By: #### L 501.2300, L500.2500, L501.5200, L100.0100 #### [facility] [address] [place], [address] MCHC (RBC) [Mass/Vol] 32.1 g/dL Normal 32-36 [facility] Comment on above: Performed By: #### L 501.2300, L500.2500, L501.5200, L100.0100 #### [facility] [address] [place], [address] MCV (RBC) [Entitic vol] 108.5 fL High 81-99 [facility] Comment on above: Performed By: #### L 501.2300, L500.2500, L501.5200, L100.0100 #### [facility] [address] [place], [address] Monocytes/100 WBC (Bld) 13.9 % High 0-10 [facility] Comment on above: Performed By: #### L 501.2300, L500.2500, L501.5200, L100.0100 #### [facility] [address] [place], [address] Neutrophils/100 WBC (Bld) 71.4 % High 47-70 [facility] Comment on above: Performed By: #### L 501.2300, L500.2500, L501.5200, L100.0100 #### [facility] [address] [place], [address] Nucleated RBC (Bld) [#/Vol] 0 10*3/uL Normal 0-5 [facility] Comment on above: Performed By: #### L 501.2300, L500.2500, L501.5200, L100.0100 #### [facility] [address] [place], [address] Platelet mean volume (Bld) [Entitic vol] 9.7 fL Normal 6.2-12.0 [facility] Comment on above: Performed By: #### L 501.2300, L500.2500, L501.5200, L100.0100 #### [facility] [address] [place], [address] Platelets (Bld) [#/Vol] 238 10*3/uL Normal 150-450 [facility] Comment on above: Performed By: #### L 501.2300, L500.2500, L501.5200, L100.0100 #### [facility] [address] [place], [address] RBC (Bld) [#/Vol] 3.19 10*6/uL Low 4.2-5.4 [facility] Comment on above: Performed By: #### L 501.2300, L500.2500, L501.5200, L100.0100 #### [facility] [address] [place], [address] RDW SD 55.7 fl High 35.1-43.9 [facility] Comment on above: Performed By: #### L 501.2300, L500.2500, L501.5200, L100.0100 #### [facility] [address] [place], [address] WBC (Bld) [#/Vol] 5.2 10*3/uL Normal 4.4-11.0 [facility] Comment on above: Performed By: #### L 501.2300, L500.2500, L501.5200, L100.0100 #### [facility] [address] [place], [address] Eosinophil percentageOrdered By: Simon Ulloa on 05-01-2025 Eosinophils/100 WBC (Bld) 0.6 % 0-5 [facility] Erythrocyte distribution wid th ratioOrdered By: Simon Ulloa on 05-01-2025 Erythrocyte distribution width (RBC) [Ratio] 14.0 % 11.6-14.6 [facility] Erythrocyte distribution wid th standard deviationOrdered By: Simon Ulloa on 05-01-2025 Erythrocyte distribution width (RBC) [Ratio] 55.7 fl High 35.1-43.9 [facility] Ferritinon 05-01-2025 Ferritin [Mass/Vol] 66 ng/mL Normal 22-378 [facility] Comment on above: Performed By: #### L 501.2300, L500.2500, L501.5200, L100.0100 #### [facility] [address] [place], [place], [address] Hematocrit Auto (Bld) [Volum e fraction]Ordered By: Simon Ulloa on 05-01-2025 Hematocrit (Bld) [Volume fraction] 34.6 % Low 37-47 [facility] Hemoglobin measurementOrdere d By: Simon Ulloa on 05-01-2025 Hemoglobin (Bld) [Mass/Vol] 11.1 g/dL Low 12.0-15.0 [facility] Immature granulocytes/100 WB C Auto (Bld)Ordered By: [facility] on 05-01-2025 Immature granulocytes/100 WBC (Bld) 0.400 % 0.0-0.9 [facility] Comment on above: IG% - Immature Granu locytes (promyelocytes, myelocytes and metamyelocytes) > 1% indicates that a LEFT SHIFT is Present. Iron measurement (mass/mass) Ordered By: Simon Ulloa on 05-01-2025 Iron (Unsp spec) [Mass/Mass] 31 ug/dL Low 50-170 [facility] Iron+Iron Binding Capacityon 05-01-2025 Iron [Mass/Vol] 31 ug/dL Low 50-170 [facility] Comment on above: Performed By: #### L 501.2300, L500.2500, L501.5200, L100.0100 #### [facility] [address] [place], [place], [address] IRON SATURATION 10.0 Low 13-59 [facility] Comment on above: Performed By: #### L 501.2300, L500.2500, L501.5200, L100.0100 #### [facility] [address] [place], [address] TIBC 322 ug/dL Normal 250-450 [facility] Comment on above: Performed By: #### L 501.2300, L500.2500, L501.5200, L100.0100 #### [facility] [address] [place], [address] UIBC 291 ug/dL Normal 228-428 [facility] Comment on above: Performed By: #### L 501.2300, L500.2500, L501.5200, L100.0100 #### [facility] [address] [place], [address] MCV (mean corpuscular volume ) determinationOrdered By: Simon Ulloa on 05-01-2025 MCV (RBC) [Entitic vol] 108.5 fL High 81-99 [facility] Mean corpuscular hemoglobin (MCH) determinationOrdered By: Simon Ulloa on 05-01-2025 MCH (RBC) [Entitic mass] 34.8 pg High 27.0-32.0 [facility] Mean corpuscular hemoglobin concentration (MCHC) determinationOrdered By: Simon Ulloa on 05-01-2025 MCHC (RBC) [Mass/Vol] 32.1 g/dL 32-36 [facility] Mean platelet volume determi nationOrdered By: Simon Ulloa on 05-01-2025 Platelet mean volume (Bld) [Entitic vol] 9.7 fL 6.2-12.0 [facility] Monocyte percentageOrdered B y: Simon Ulloa on 05-01-2025 Monocytes/100 WBC (Bld) 13.9 % High 0-10 [facility] Neutrophil percentageOrdered By: Simon Ulloa on 05-01-2025 Neutrophils/100 WBC (Bld) 71.4 % High 47-70 [facility] No Panel InformationOrdered By: Simon Ulloa on 05-01-2025 Unsaturated Iron Binding Capacity 291 ug/dL 228-428 [facility] Nucleated red blood cell per centageOrdered By: Simon Ulloa on 05-01-2025 Nucleated RBC/100 WBC (Bld) [Ratio] 0 % 0-5 [facility] Oncology Visit Reporton 09 Oncology Visit Report [facility] [place] [address] OFFICE VISIT Date of Service: 05/01/25 1534 MR#: [id number] Acct: [id number] Name: ANGELES LARIOS Rep #: [id number] : 1960 From: Simon Ulloa MD Age/Sex: 65/F [place] [facility] [place]: Signed HPI Subjective Date of Service 05/01/25 Chief Complaint Anemia History of Present Illness Patient is a 63-year-old female postmenopausal with significant atherosclerotic arterial disease [...] endoscopies did not reveal any active bleeding. Repeat endoscopies and capsule studies were done April 2021 at [facility], according to patient 2 colonic vascular lesions were seen and cauterized. Interval History PFSH Medical History Tobacco use disorder, continuous Iron deficiency anemia due to chronic blood loss History of stress test Depression Hypothyroidism GERD (gastroesophageal reflux disease) Smoker Coronary artery disease Hypertension DVT (deep venous thrombosis) TIA (transient ischemic attack) Anemia Macrocytosis Nicotine dependence Chronic GI bleeding Peripheral vascular disease Non-rheumatic aortic stenosis Dysarthria Atherosclerosis of coronary artery of [place] heart without angina pectoris Essential (primary) hypertension Encounter for screening for lung cancer Bilateral carotid artery stenosis Pernicious anemia Sleep apnea IBS (irritable bowel syndrome) History of DVT (deep vein thrombosis) Diarrhea Nausea vomiting LEFT ARM SURGERY BLOOD CLOT Gastrointestinal bleed CVA (cerebral vascular accident) Hyperlipidemia Fibromyalgia Expressive language disorder Dysarthria Surgical History History of endoscopy S/P tubal ligation H/O cardiac catheterization History of cataract removal with insertion of prosthetic lens 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) Hx of bilateral cataract extraction History of coronary artery stent placement (12/20/08) History of left-sided carotid endarterectomy (01/2019) Hx of appendectomy Family History Father , at age 38, from [place] Myocardial infarction cardiomopathy Mother Atrial fibrillation Hypertension Hyperlipidemia Diabetes Brother CAD (coronary artery disease) cardiomopathy Myocardial infarction Sister cardiomopathy Social History adopted: No household members: spouse and family Smoking Status: Current every day smoker tobacco type: cigarettes Tobacco: How many years used: 50 Electronic Cigarette Use: not used second hand exposure: Yes quit status: has quit before alcohol intake: former year quit: 2017 substance use type: does not use caffeine: Yes Type: coffee Number of servings: 2 what type of physical activity do you participate in: none seatbelt use: sometimes do you feel safe at home: Yes ROS Constitutional Constitutional: Reports systems reviewed and no addt'l complaints, except as documented; Denies fever(s) Eyes Eyes: Reports systems reviewed and no addt'l complaints, except as documented ENT HEENT: Denies bleeding gums or epistaxis Cardiovascular Cardiovascular: Reports systems reviewed and no addt'l complaints, except as documented; Denies chest pain with activity or edema Respiratory/Chest Respiratory/Chest: Reports systems reviewed and no addt'l complaints, except as documented, cough and dyspnea on exertion; Denies hemoptysis Gastrointestinal Gastrointestinal: Reports systems reviewed and no addt'l complaints, except as documented; Denies hematochezia or melena Genitourinary Genitourinary: Reports systems reviewed and no addt'l complaints, except as documented; Denies hematuria Integumentary Integumentary: Reports unusual bruising; Denies bleeding lesions Neurologic Neurologic: Reports systems reviewed and no addt'l complaints, except as documented Psychiatric Psychiatric: Reports systems reviewed and no addt'l complaints, except as documented Endocrine Endocrinology: Reports systems reviewed and no addt'l complaints, except as documented Hematologic/Lymphatic Hematologic/Lymphatic : Reports easy bruising; Denies easy bleeding Allergic/Immunologic Allergic/Immunologic: Reports systems reviewed and no addt'l complaints, except as documented (more content not included)... Normal [facility] Platelet countOrdered By: Darryl Ulloa on 05-01-2025 Platelets (Bld) [#/Vol] 238 10*3/uL 150-450 [facility] RBC Auto (Bld) [#/Vol]Ordere d By: Simon Ulloa on 05-01-2025 RBC (Bld) [#/Vol] 3.19 10*6/uL Low 4.2-5.4 [facility] Retic Panelon 05-01-2025 IM RET FRACTION 27.80 High 3.00-15.90 [facility] Comment on above: Performed By: #### L 501.2300, L500.2500, L501.5200, L100.0100 #### [facility] [address] [place], [address] RET-HE 34.6 pg Normal 30-35 [facility] Comment on above: Performed By: #### L 501.2300, L500.2500, L501.5200, L100.0100 #### [facility] [address] [place], [address] Retic Count 4.64 High 0.5-1.5 [facility] Comment on above: Performed By: #### L 501.2300, L500.2500, L501.5200, L100.0100 #### [facility] [address] [place], [address] Reticulocyte hemoglobin equi valent (RET-He) measurementOrdered By: Simon Ulloa on 05-01-2025 Hemoglobin (Reticulocytes) [Entitic mass] 34.6 pg 30-35 [facility] Reticulocytes Auto (Bld) [#/ Vol]Ordered By: Simon Ulloa on 05-01-2025 Reticulocytes/100 RBC (Bld) 4.64 % High 0.5-1.5 [facility] Serum or plasma ferritin ibrahima surement (mass/volume)Ordered By: Simon Ulloa on 05-01-2025 Ferritin [Mass/Vol] 66 ng/mL 22-378 [facility] Serum or plasma iron saturat ion measurement (mass fraction)Ordered By: Simon Ulloa on 05-01-2025 Iron saturation [Mass fraction] 10.0 % Low 13-59 [facility] White blood cell (WBC) count Ordered By: Simon Ulloa on 05-01-2025 WBC (Bld) [#/Vol] 5.2 10*3/uL 4.4-11.0 [facility] Absolute lymphocyte countOrd ered By: Martin Gutierrez on 12-22-2024 Lymphocytes Auto (Unsp spec) [#/Vol] 1.19 10*3/uL 0.83-4.51 [facility] Absolute neutrophil countOrd ered By: Martin Gutierrez on 12-22-2024 Neutrophils (Bld) [#/Vol] 4.8 10*3/uL 2.0-7.7 [facility] Anion gap in Serum or Plasma Ordered By: Martin Gutierrez on 12-22-2024 Anion gap [Moles/Vol] 10 mmol/L 5-15 [facility] Automated lymphocyte count a s percentage of total leukocytesOrdered By: Martin Gutierrez on 12-22-2024 Lymphocytes/100 WBC Auto (Unsp spec) 17.5 % Low 19-41 [facility] BUN/creatinine ratioOrdered By: Martin Gutierrez on 12-22-2024 Urea nitrogen/Creatinine [Mass ratio] 20.8 mg/mg High 10-20 [facility] Basophil percentageOrdered B y: Martin Gutierrez on 12-22-2024 Basophils/100 WBC (Bld) 0.9 % 0-1 [facility] Bilirubin, totalOrdered By: Martin Gutierrez on 12-22-2024 Bilirubin [Mass/Vol] mg/dL 0.00-1.30 [facility] CBC W/Diff, Automatedon Absolute Lymph 1.19 X10 3/uL Normal 0.83-4.51 [facility] Comment on above: Performed By: #### L 503.6030, L501.9520, L500.4050, L503.6550, L100.0100, L506.1001 #### [facility] [address] [place], [address] Absolute Neut 4.8 X10 3/uL Normal 2.0-7.7 [facility] Comment on above: Performed By: #### L 503.6030, L501.9520, L500.4050, L503.6550, L100.0100, L506.1001 #### [facility] [address] [place], [address] Basophils/100 WBC (Bld) 0.9 % Normal 0-1 [facility] Comment on above: Performed By: #### L 503.6030, L501.9520, L500.4050, L503.6550, L100.0100, L506.1001 #### [facility] [address] [place], [address] Eosinophils/100 WBC (Bld) 1.2 % Normal 0-5 [facility] Comment on above: Performed By: #### L 503.6030, L501.9520, L500.4050, L503.6550, L100.0100, L506.1001 #### [facility] [address] [place], [address] Erythrocyte distribution width (RBC) [Ratio] 13.4 % Normal 11.6-14.6 [facility] Comment on above: Performed By: #### L 503.6030, L501.9520, L500.4050, L503.6550, L100.0100, L506.1001 #### [facility] [address] [place], [address] Hematocrit (Bld) [Volume fraction] 36.7 % Low 37-47 [facility] Comment on above: Performed By: #### L 503.6030, L501.9520, L500.4050, L503.6550, L100.0100, L506.1001 #### [facility] [address] [place], [address] Hemoglobin (Bld) [Mass/Vol] 11.9 g/dL Low 12.0-15.0 [facility] Comment on above: Performed By: #### L 503.6030, L501.9520, L500.4050, L503.6550, L100.0100, L506.1001 #### [facility] [address] [place], [address] IG% 0.400 Normal 0.0-0.9 [facility] Comment on above: Result Comment: IG% - Immature Granulocytes (promyelocytes, myelocytes and metamyelocytes) > 1% indicates that a LEFT SHIFT is Present. Performed By: #### L 503.6030, L501.9520, L500.4050, L503.6550, L100.0100, L506.1001 #### [facility] [address] [place], [address] Lymphocytes/100 WBC (Bld) 17.5 % Low 19-41 [facility] Comment on above: Performed By: #### L 503.6030, L501.9520, L500.4050, L503.6550, L100.0100, L506.1001 #### [facility] [address] [place], [address] MCH (RBC) [Entitic mass] 34.8 pg High 27.0-32.0 [facility] Comment on above: Performed By: #### L 503.6030, L501.9520, L500.4050, L503.6550, L100.0100, L506.1001 #### [facility] [address] [place], [address] MCHC (RBC) [Mass/Vol] 32.4 g/dL Normal 32-36 [facility] Comment on above: Performed By: #### L 503.6030, L501.9520, L500.4050, L503.6550, L100.0100, L506.1001 #### [facility] [address] [place], [address] MCV (RBC) [Entitic vol] 107.3 fL High 81-99 [facility] Comment on above: Performed By: #### L 503.6030, L501.9520, L500.4050, L503.6550, L100.0100, L506.1001 #### [facility] [address] [place], [address] Monocytes/100 WBC (Bld) 9.9 % Normal 0-10 [facility] Comment on above: Performed By: #### L 503.6030, L501.9520, L500.4050, L503.6550, L100.0100, L506.1001 #### [facility] [address] [place], [address] Neutrophils/100 WBC (Bld) 70.1 % High 47-70 [facility] Comment on above: Performed By: #### L 503.6030, L501.9520, L500.4050, L503.6550, L100.0100, L506.1001 #### [facility] [address] [place], [address] Nucleated RBC (Bld) [#/Vol] 0 10*3/uL Normal 0-5 [facility] Comment on above: Performed By: #### L 503.6030, L501.9520, L500.4050, L503.6550, L100.0100, L506.1001 #### [facility] [address] [place], [address] Platelet mean volume (Bld) [Entitic vol] 9.5 fL Normal 6.2-12.0 [facility] Comment on above: Performed By: #### L 503.6030, L501.9520, L500.4050, L503.6550, L100.0100, L506.1001 #### [facility] [address] [place], [address] Platelets (Bld) [#/Vol] 296 10*3/uL Normal 150-450 [facility] Comment on above: Performed By: #### L 503.6030, L501.9520, L500.4050, L503.6550, L100.0100, L506.1001 #### [facility] [address] [place], [address] RBC (Bld) [#/Vol] 3.42 10*6/uL Low 4.2-5.4 [facility] Comment on above: Performed By: #### L 503.6030, L501.9520, L500.4050, L503.6550, L100.0100, L506.1001 #### [facility] [address] [place], [address] RDW SD 52.9 fl High 35.1-43.9 [facility] Comment on above: Performed By: #### L 503.6030, L501.9520, L500.4050, L503.6550, L100.0100, L506.1001 #### [facility] [address] [place], [address] WBC (Bld) [#/Vol] 6.8 10*3/uL Normal 4.4-11.0 [facility] Comment on above: Performed By: #### L 503.6030, L501.9520, L500.4050, L503.6550, L100.0100, L506.1001 #### [facility] [address] [place], [address] Carbon dioxide, total [Moles /volume] in Central venous bloodOrdered By: Martin Gutierrez on 12-22-2024 CO2 [Moles/Vol] 23.2 mmol/L 21.0-32.0 [facility] Chloride assayOrdered By: Cruzito Gutierrez on 12-22-2024 Chloride [Moles/Vol] 106 mmol/L 98-108 [facility] Comprehensive Metabolic Prof ilon 12-22-2024 Albumin [Mass/Vol] 4.0 g/dL Normal 3.4-4.8 [facility] Comment on above: Performed By: #### L 503.6030, L501.9520, L500.4050, L503.6550, L100.0100, L506.1001 #### [facility] [address] [place], [address] Albumin/Globulin [Mass ratio] 1.7 {ratio} Normal 0.9-2.4 [facility] Comment on above: Performed By: #### L 503.6030, L501.9520, L500.4050, L503.6550, L100.0100, L506.1001 #### [facility] [address] [place], [address] ALK PHOS 85 U/L Normal 35-104 [facility] Comment on above: Performed By: #### L 503.6030, L501.9520, L500.4050, L503.6550, L100.0100, L506.1001 #### [facility] [address] [place], [address] ALT [Catalytic activity/Vol] 14 U/L Normal <=34 [facility] Comment on above: Performed By: #### L 503.6030, L501.9520, L500.4050, L503.6550, L100.0100, L506.1001 #### [facility] [address] [place], [address] AST [Catalytic activity/Vol] 16 U/L Normal <=31 [facility] Comment on above: Performed By: #### L 503.6030, L501.9520, L500.4050, L503.6550, L100.0100, L506.1001 #### [facility] [address] [place], [address] BUN/CRE 20.8 RATIO High 10-20 [facility] Comment on above: Performed By: #### L 503.6030, L501.9520, L500.4050, L503.6550, L100.0100, L506.1001 #### [facility] [address] [place], [address] Calcium [Mass/Vol] 9.0 mg/dL Normal 7.6-11.0 [facility] Comment on above: Performed By: #### L 503.6030, L501.9520, L500.4050, L503.6550, L100.0100, L506.1001 #### [facility] [address] [place], [address] Chloride [Moles/Vol] 106 mmol/L Normal 98-108 [facility] Comment on above: Performed By: #### L 503.6030, L501.9520, L500.4050, L503.6550, L100.0100, L506.1001 #### [facility] [address] [place], [address] CO2 [Moles/Vol] 23.2 mmol/L Normal 21.0-32.0 [facility] Comment on above: Performed By: #### L 503.6030, L501.9520, L500.4050, L503.6550, L100.0100, L506.1001 #### [facility] [address] [place], [address] Creatinine [Mass/Vol] 0.65 mg/dL Low 0.70-1.20 [facility] [facility] Comment on above: Performed By: #### L 503.6030, L501.9520, L500.4050, L503.6550, L100.0100, L506.1001 #### [facility] [address] [place], [address] GAP 10 Normal 5-15 [facility] Comment on above: Performed By: #### L 503.6030, L501.9520, L500.4050, L503.6550, L100.0100, L506.1001 #### [facility] [address] [place], [address] GFR/1.73 sq M.predicted among non-blacks MDRD (S/P/Bld) [Vol rate/Area] 97 mL/min/{1.73_m2} Normal >60 [facility] Comment on above: Result Comment: mL/m in/1.73m2 CKD-EPI Creatinine Equation (2020) Performed By: #### L 503.6030, L501.9520, L500.4050, L503.6550, L100.0100, L506.1001 #### [facility] [address] [place], [address] Globulin (S) [Mass/Vol] 2.3 g/dL Normal 2.2-4.2 [facility] Comment on above: Performed By: #### L 503.6030, L501.9520, L500.4050, L503.6550, L100.0100, L506.1001 #### [facility] [address] [place], [address] Glucose [Mass/Vol] 123 mg/dL High 70-99 [facility] Comment on above: Performed By: #### L 503.6030, L501.9520, L500.4050, L503.6550, L100.0100, L506.1001 #### [facility] [address] [place], [address] Potassium [Moles/Vol] 3.9 mmol/L Normal 3.3-5.1 [facility] Comment on above: Performed By: #### L 503.6030, L501.9520, L500.4050, L503.6550, L100.0100, L506.1001 #### [facility] [address] [place], [address] Sodium [Moles/Vol] 139 mmol/L Normal 133-145 [facility] Comment on above: Performed By: #### L 503.6030, L501.9520, L500.4050, L503.6550, L100.0100, L506.1001 #### [facility] [address] [place], [address] T BILI < 0.15 Normal 0.00-1.30 [facility] Comment on above: Performed By: #### L 503.6030, L501.9520, L500.4050, L503.6550, L100.0100, L506.1001 #### [facility] [address] [place], [address] T PROT 6.2 g/dL Normal 5.9-8.4 [facility] Comment on above: Performed By: #### L 503.6030, L501.9520, L500.4050, L503.6550, L100.0100, L506.1001 #### [facility] [address] [place], [address] Urea nitrogen [Mass/Vol] 14 mg/dL Normal 4-19 [facility] Comment on above: Performed By: #### L 503.6030, L501.9520, L500.4050, L503.6550, L100.0100, L506.1001 #### [facility] [address] [place], [address] Eosinophil percentageOrdered By: Martin Gutierrez on 12-22-2024 Eosinophils/100 WBC (Bld) 1.2 % 0-5 [facility] Erythrocyte distribution wid th ratioOrdered By: [facility] on 12-22-2024 Erythrocyte distribution width (RBC) [Ratio] 13.4 % 11.6-14.6 [facility] Erythrocyte distribution wid th standard deviationOrdered By: [facility] on 12-22-2024 Erythrocyte distribution width (RBC) [Ratio] 52.9 fl High 35.1-43.9 [facility] Ferritinon 12-22-2024 Ferritin [Mass/Vol] 33 ng/mL Normal 22-378 [facility] Comment on above: Performed By: #### L 503.6030, L501.9520, L500.4050, L503.6550, L100.0100, L506.1001 #### [facility] [place], [address] Glomerular filtration rate ( GFR) estimation/1.73 sq m using serum, plasma, or whole bOrdered By: Martin Matt on 12-22-2024 GFR/1.73 sq M.predicted among non-blacks MDRD (S/P/Bld) [Vol rate/Area] 97 mL/min/{1.73_m2} >60 [facility] Comment on above: mL/min/1.73m2 CKD-EP I Creatinine Equation (2020) Hematocrit Auto (Bld) [Volum e fraction]Ordered By: [facility] on 12-22-2024 Hematocrit (Bld) [Volume fraction] 36.7 % Low 37-47 [facility] Hemoglobin measurementOrdere d By: Martin Matt on 12-22-2024 Hemoglobin (Bld) [Mass/Vol] 11.9 g/dL Low 12.0-15.0 [facility] Immature granulocytes/100 WB C Auto (Bld)Ordered By: Martin Matt on 12-22-2024 Immature granulocytes/100 WBC (Bld) 0.400 % 0.0-0.9 [facility] Comment on above: IG% - Immature Granu locytes (promyelocytes, myelocytes and metamyelocytes) > 1% indicates that a LEFT SHIFT is Present. Iron measurement (mass/mass) Ordered By: Martin Gutierrez on 12-22-2024 Iron (Unsp spec) [Mass/Mass] 31 ug/dL Low 50-170 [facility] Iron+Iron Binding Capacityon 12-22-2024 Iron [Mass/Vol] 31 ug/dL Low 50-170 [facility] Comment on above: Performed By: #### L 503.6030, L501.9520, L500.4050, L503.6550, L100.0100, L506.1001 #### [facility] [address] [place], [address] IRON SATURATION 10.0 Low 13-59 [facility] Comment on above: Performed By: #### L 503.6030, L501.9520, L500.4050, L503.6550, L100.0100, L506.1001 #### [facility] [address] [place], [address] TIBC 311 ug/dL Normal 250-450 [facility] Comment on above: Performed By: #### L 503.6030, L501.9520, L500.4050, L503.6550, L100.0100, L506.1001 #### [facility] [address] [place], [address] UIBC 280 ug/dL Normal 228-428 [facility] Comment on above: Performed By: #### L 503.6030, L501.9520, L500.4050, L503.6550, L100.0100, L506.1001 #### [facility] [address] [place], [address] Laboratory - Chemistry and C hemistry - challengeOrdered By: Martin Gutierrez on 12-22-2024 AST [Catalytic activity/Vol] 16 U/L <32 [facility] MCV (mean corpuscular volume ) determinationOrdered By: Martin Gutierrez on 12-22-2024 MCV (RBC) [Entitic vol] 107.3 fL High 81-99 [facility] Mean corpuscular hemoglobin (MCH) determinationOrdered By: Martin Gutierrez on 12-22-2024 MCH (RBC) [Entitic mass] 34.8 pg High 27.0-32.0 [facility] Mean corpuscular hemoglobin concentration (MCHC) determinationOrdered By: Martin Gutierrez on 12-22-2024 MCHC (RBC) [Mass/Vol] 32.4 g/dL 32-36 [facility] Mean platelet volume determi nationOrdered By: Martin Gutierrez on 12-22-2024 Platelet mean volume (Bld) [Entitic vol] 9.5 fL 6.2-12.0 [facility] Monocyte percentageOrdered B y: Martin Gutierrez on 12-22-2024 Monocytes/100 WBC (Bld) 9.9 % 0-10 [facility] Neutrophil percentageOrdered By: Martin Gutierrez on 12-22-2024 Neutrophils/100 WBC (Bld) 70.1 % High 47-70 [facility] No Panel InformationOrdered By: Martin Gutierrez on 12-22-2024 Unsaturated Iron Binding Capacity 280 ug/dL 228-428 [facility] Nucleated red blood cell per centageOrdered By: Martin Gutierrez on 12-22-2024 Nucleated RBC/100 WBC (Bld) [Ratio] 0 % 0-5 [facility] Platelet countOrdered By: Cruzito Gutierrez on 12-22-2024 Platelets (Bld) [#/Vol] 296 10*3/uL 150-450 [facility] Potassium measurement (mass/ volume)Ordered By: Martin Gutierrez on 12-22-2024 Potassium (Unsp spec) [Mass/Vol] 3.9 mmol/L 3.3-5.1 [facility] RBC Auto (Bld) [#/Vol]Ordere d By: Martin Gutierrez on 12-22-2024 RBC (Bld) [#/Vol] 3.42 10*6/uL Low 4.2-5.4 [facility] Serum creatinine measurement (mass/volume)Ordered By: Martin Gutierrez on 12-22-2024 Creatinine [Mass/Vol] 0.65 mg/dL Low 0.70-1.20 [facility] Serum globulin measurementOr dered By: Martin Gutierrez on 12-22-2024 Globulin (S) [Mass/Vol] 2.3 g/dL 2.2-4.2 [facility] Serum glucose measurement (m ass/volume)Ordered By: Martin Gutierrez on 12-22-2024 Glucose [Mass/Vol] 123 mg/dL High 70-99 [facility] Serum or plasma alanine joshi otransferase (ALT) measurementOrdered By: Martin Gutierrez on 12-22-2024 ALT [Catalytic activity/Vol] 14 U/L <35 [facility] Serum or plasma albumin kamlesh urement (mass/volume)Ordered By: Martin Gutierrez on 12-22-2024 Albumin [Mass/Vol] 4.0 g/dL 3.4-4.8 [facility] Serum or plasma albumin/glob ulin mass ratioOrdered By: Martin Gutierrez 12-22-2024 Albumin/Globulin [Mass ratio] 1.7 {ratio} 0.9-2.4 [facility] Serum or plasma alkaline mena sphatase measurementOrdered By: Martin Gutierrez 12-22-2024 ALP [Catalytic activity/Vol] 85 U/L 35-104 [facility] Serum or plasma calcium kamlesh urement (mass/volume)Ordered By: Martin Gutierrez 12-22-2024 Calcium [Mass/Vol] 9.0 mg/dL 7.6-11.0 [facility] Serum or plasma ferritin ibrahima surement (mass/volume)Ordered By: Martin Gutierrez 12-22-2024 Ferritin [Mass/Vol] 33 ng/mL 22-378 [facility] Serum or plasma iron saturat ion measurement (mass fraction)Ordered By: Martin Gutierrez 12-22-2024 Iron saturation [Mass fraction] 10.0 % Low 13-59 [facility] Serum or plasma urea nitroge n measurement (mass/volume)Ordered By: Martin Gutierrez 12-22-2024 Urea nitrogen [Mass/Vol] 14 mg/dL 4-19 [facility] Sodium levelOrdered By: Martin Gutierrez 12-22-2024 Sodium [Moles/Vol] 139 mmol/L 133-145 [facility] TSH DL <= 0.005 mIU/L QnOrde red By: Martin Gutierrez on 12-22-2024 TSH Qn 2.440 uIU/mL 0.300-4.200 [facility] Thyroid Stim Hormone (TSH)on 12-22-2024 TSH 2.440 uIU/mL Normal 0.300-4.200 [facility] Comment on above: Performed By: #### L 503.6030, L501.9520, L500.4050, L503.6550, L100.0100, L506.1001 #### [facility] [address] [place], [place], [id number] Total proteinOrdered By: Martin Gutierrez on 12-22-2024 Protein [Mass/Vol] 6.2 g/dL 5.9-8.4 [facility] Vitamin D,25 Hydroxyon 12-22 Vitamin D 25-OH 12.1 ng/mL Low 30-100 [facility] Comment on above: Result Comment: Shanti min D Status Deficiency: <20 ng/mL (50nmol/L) Insufficiency: 20-30 ng/mL (50-75 nmol/L) Sufficiency: 30-100 ng/mL (75-250 nmol/L) Toxicity: >100 ng/mL (>250 nmol/L) Performed By: #### L 503.6030, L501.9520, L500.4050, L503.6550, L100.0100, L506.1001 #### [facility] [address] [place], [place], [id number] White blood cell (WBC) count Ordered By: Martin Gutierrez on 12-22-2024 WBC (Bld) [#/Vol] 6.8 10*3/uL 4.4-11.0 [facility] Inital Evaluation (1) - PTon 11-14-2024 Inital Evaluation (1) - PT [facility] [address] [place] [address] / REHABILITATION SERVICES INITIAL EVALUATION MR#: [id number] Acct: [id number] Name: ANGELES LARIOS Rep #: [id number] : 1960 64 From: Pardeep Betancur PT, Cert. T, OCS Referring Dr.: Dr. Armando Ga MD Status: REG R Insurance: [facility] [id number] SELF PAY INSURANCE Patient's Visit Information Visit Information Visit Information: ANGELES LARIOS is a 64 year old F referred to Physical Therapy by Dr. Armando Ga MD with a diagnosis of BACK PAIN AND LEG PAIN. Date of Evaluation: 11/14/24 Physical Therapist: Pardeep Betancur PT, Cert T, OCS Visit Plan Frequency: 2x /Week Duration: 4 Weeks Plan: PT INTERVENTIONS LUMBAR FLEXION ,DLS ,LE FLEXABILITY ,POSTURAL EX'S AND MODALTIES Subjective Subjective: This 64 y/o female presents to physical therapy with Lumbar radiculopathy left leg. Patient has back and leg pain for 1 year. Patient states falling x2 past couple years twisting back. Family DR recommended pain management with for epidural injections 4 x helped for 2 days. MRI showed Mild anterior listhesis of L4 on L5 and L5 on S1 without spondylolysis Moderate L4-5 spinal stenosis related to posterior ligamentous hypertrophy and facet arthropathy.Pain located LS with radicular symptoms in leg. Aggravating factors walking < 5mins ,standing ,bending and lifting . Alleviating rest and sitting medication. Medication gabapentin and baclofen. Coughing/sneezing - . Bowel/bladder-. Patient pain can affects sleeping. Patient has no PT treatment. Patient condition affects QOL and function. VOCATION: retired SOCIAL: Pain Left Back: Pain Intensity (Out of 10): 7 Pain Intensity Range: 10 Comment: 10 at worse Left Lower Extremity: Pain Intensity (Out of 10): 0 Pain Intensity Range: 10 Comment: increases with walking Objective Objective: POSTURE: mild forward posture GAIT: reciprocal pattern NEURO: denies paresthesia/tingling ,reflexes L3-4,L4-5,L5-S1 1/3 FLEXABILITY: hamstrings min tight PALAPTION: tender left> right LS LUMBAR ROM: flexion min loss ,extension mod/severe loss ,side glides min loss Special Tests L/S Slump test left side: Negative L/S Slump test right side: Negative L/S Left Straight Leg Raise: Negative L/S Right Straight Leg Raise: Negative Lumbar Standing: Flexion - Mechanical Response: No effect Lumbar Standing: Flexion - Symptoms During Testing: No effect Lumbar Standing: Flexion - Symptoms After Testing: No effect Lumbar Standing: Extension - Mechanical Response: No effect Lumbar Standing: Extension - Symptoms During Testing: Increases Lumbar Standing: Extension - Symptoms After Testing: Worse Lumbar Standing: Right Side Glides - Mechanical Response: No effect Lumbar Standing: Right Side Mason - Symptoms During Testing: No effect Lumbar Standing: Right Side Mason - Symptoms After Testing: No effect Lumbar Standing: Left Side Mason - Mechanical Response: No effect Lumbar Standing: Left Side Mason - Symptoms During Testing: No effect Lumbar Standing: Left Side Mason - Symptoms After Testing: No effect Balance/Special Test Scores Oswestry Low Back Score: 25 Goals Goal 1:: Patient to be I with HEP for back Goal Time Frame: 4-6 Weeks Goal 2:: Patient to improve back oswestry score by 5 points to improve function Goal Time Frame: 4-6 Weeks Goal 3:: Patient able to ambulate 10 mins with less leg symptoms Goal Time Frame: 4-6 Weeks Goal 4:: Patient to demonstrate 50% improvement with less pain and improved function Goal Time Frame: 4-6 Weeks Goal 5:: Patient to improve lumbar ROM for function of recovery for ADLS Goal Time Frame: 4-6 Weeks Rehabilitation Potential Physical Therapy Diagnosis: This patient has lumbar radiculopathy left leg worse with positioning and motion testing with extension and worse with walking better with flexion thus benefit from skilled PT Rehabilitation Potential: Fair Anticipated Interventions Patient/Client Instruction: Educate patient on: Condition and Plan of Care For the Purpose of:: To decrease pain, To increase ROM, To improve muscle performance and motor function, To increase tolerance to activity/condition/po sition, To improve ability of physical actions for home/community/work/l eisure, To improve health of tissue, To increase flexibility/ROM, To assume or resume ADL's and To improve tolerance to ADL's Therapeutic Exercise to Include: Strength training, Body mechanics, Postural training, Flexibilty training and Dynamic Lumbar Stabilization For the Purpose of:: To decrease pain, To increase ROM, To improve muscle performance and motor function, To improve ability to perform ADL's, To increase tolerance to activity/condition/po sition, To improve ability of physical actions for home/community/work/l eisure, To (more content not included)... Normal [facility] Basic Metabolic Profile (BMP )on 10-05-2024 BUN/CRE 26.9 RATIO High 10-20 [facility] Comment on above: Performed By: #### L 503.6030, L501.9520, L500.4050, L503.6550, L100.0100, L506.1001 #### [facility] [address] [place], [address] CA,Total 8.9 mg/dL Normal 8.5-10.1 [facility] Comment on above: Performed By: #### L 503.6030, L501.9520, L500.4050, L503.6550, L100.0100, L506.1001 #### [facility] [address] [place], [address] Chloride [Moles/Vol] 111 mmol/L High 98-107 [facility] Comment on above: Performed By: #### L 503.6030, L501.9520, L500.4050, L503.6550, L100.0100, L506.1001 #### [facility] [address] [place], [address] CO2 [Moles/Vol] 24.0 mmol/L Normal 21.0-32.0 [facility] Comment on above: Performed By: #### L 503.6030, L501.9520, L500.4050, L503.6550, L100.0100, L506.1001 #### [facility] [address] [place], [address] Creatinine [Mass/Vol] 0.63 mg/dL Normal 0.55-1.02 [facility] Comment on above: Result Comment: The validity of the calculated GFR GFRAA in patients over 70 years has not been determined. Clinical correlation is essential. Performed By: #### L 503.6030, L501.9520, L500.4050, L503.6550, L100.0100, L506.1001 #### [facility] [address] [place], [address] EST GFR - AA 121 mL/min Normal >60 [facility] Comment on above: Result Comment: Afri can [place] GFR Calc Performed By: #### L 503.6030, L501.9520, L500.4050, L503.6550, L100.0100, L506.1001 #### [facility] [address] [place], [address] GAP 6 Normal 5-15 [facility] Comment on above: Performed By: #### L 503.6030, L501.9520, L500.4050, L503.6550, L100.0100, L506.1001 #### [facility] [address] [place], [address] GFR/1.73 sq M.predicted among non-blacks MDRD (S/P/Bld) [Vol rate/Area] 100 mL/min/{1.73_m2} Normal >60 [facility] Comment on above: Result Comment: Non- GFR Calc Performed By: #### L 503.6030, L501.9520, L500.4050, L503.6550, L100.0100, L506.1001 #### [facility] [address] [place], [address] Glucose [Mass/Vol] 92 mg/dL Normal 74-106 [facility] Comment on above: Performed By: #### L 503.6030, L501.9520, L500.4050, L503.6550, L100.0100, L506.1001 #### [facility] [address] [place], [address] Potassium [Moles/Vol] 3.8 mmol/L Normal 3.5-5.1 [facility] Comment on above: Performed By: #### L 503.6030, L501.9520, L500.4050, L503.6550, L100.0100, L506.1001 #### [facility] [address] [place], [address] Sodium [Moles/Vol] 141 mmol/L Normal 136-145 [facility] Comment on above: Performed By: #### L 503.6030, L501.9520, L500.4050, L503.6550, L100.0100, L506.1001 #### [facility] [address] [place], [address] Urea nitrogen [Mass/Vol] 17 mg/dL Normal 7-18 [facility] Comment on above: Performed By: #### L 503.6030, L501.9520, L500.4050, L503.6550, L100.0100, L506.1001 #### [facility] [address] [place], [address] BUN Normal 7-18 [facility] Comment on above: Result Comment: DUPL ICATE ORDER Performed By: #### L 501.2300, L500.2500, L501.5200, L100.0100 #### [facility] [address] [place], [address] BUN/CRE Normal 10-20 [facility] Comment on above: Result Comment: DUPL ICATE ORDER Performed By: #### L 501.2300, L500.2500, L501.5200, L100.0100 #### [facility] [address] [place], [address] CA,Total Normal 8.5-10.1 [facility] Comment on above: Result Comment: DUPL ICATE ORDER Performed By: #### L 501.2300, L500.2500, L501.5200, L100.0100 #### [facility] [address] [place], [address] CL Normal 98-107 [facility] Comment on above: Result Comment: DUPL ICATE ORDER Performed By: #### L 501.2300, L500.2500, L501.5200, L100.0100 #### [facility] [address] [place], [address] CO2 Normal 21.0-32.0 [facility] Comment on above: Result Comment: DUPL ICATE ORDER Performed By: #### L 501.2300, L500.2500, L501.5200, L100.0100 #### [facility] [address] [place], [address] CREAT,SERUM Normal 0.55-1.02 [facility] Comment on above: Result Comment: DUPL ICATE ORDER Performed By: #### L 501.2300, L500.2500, L501.5200, L100.0100 #### [facility] [address] [place], [address] EST GFR Normal >60 [facility] Comment on above: Result Comment: DUPL ICATE ORDER Performed By: #### L 501.2300, L500.2500, L501.5200, L100.0100 #### [facility] [address] [place], [address] EST GFR - AA Normal >60 [facility] Comment on above: Result Comment: DUPL ICATE ORDER Performed By: #### L 501.2300, L500.2500, L501.5200, L100.0100 #### [facility] [address] [place], [address] GAP Normal 5-15 [facility] Comment on above: Result Comment: DUPL ICATE ORDER Performed By: #### L 501.2300, L500.2500, L501.5200, L100.0100 #### [facility] [address] [place], [address] GLU Normal 74-106 [facility] Comment on above: Result Comment: DUPL ICATE ORDER Performed By: #### L 501.2300, L500.2500, L501.5200, L100.0100 #### [facility] [address] [place], [address] Potassium Normal 3.5-5.1 [facility] Comment on above: Result Comment: DUPL ICATE ORDER Performed By: #### L 501.2300, L500.2500, L501.5200, L100.0100 #### [facility] [address] [place], [address] Basic Metabolic Profile (BMP) Normal 136-145 [facility] Comment on above: Result Comment: DUPL ICATE ORDER Performed By: #### L 501.2300, L500.2500, L501.5200, L100.0100 #### [facility] [address] [place], [address] Blood urea nitrogen (BUN)/cr eatinine ratioOrdered By: Martin Gutierrez on 10-05-2024 Urea nitrogen/Creatinine [Mass ratio] 26.9 mg/mg High 10-20 [facility] Carbon dioxide measurementOr dered By: Martin Gutierrez on 10-05-2024 CO2 [Moles/Vol] 24.0 mmol/L 21.0-32.0 [facility] Chloride measurementOrdered By: Martin Gutierrez 10-05-2024 Chloride [Moles/Vol] 111 mmol/L High 98-107 [facility] Glomerular filtration rate ( GFR) estimationOrdered By: Martin Gutierrez on 10-05-2024 GFR/1.73 sq M.predicted among non-blacks MDRD (S/P/Bld) [Vol rate/Area] 100 mL/min/{1.73_m2} >60 [facility] Comment on above: Non- GFR Calc Glucose measurementOrdered B y: Martin Gutierrez on 10-05-2024 Glucose [Mass/Vol] 92 mg/dL 74-106 [facility] Potassium measurementOrdered By: Martin Gutierrez on 10-05-2024 Potassium [Moles/Vol] 3.8 mmol/L 3.5-5.1 [facility] Serum anion gap measurementO rdered By: Martin uGtierrez on 10-05-2024 Anion gap [Moles/Vol] 6 mmol/L 5-15 [facility] Serum or plasma calcium kamlesh urement (mass/volume)Ordered By: Martin Gutierrez on 10-05-2024 Calcium [Mass/Vol] 8.9 mg/dL 8.5-10.1 [facility] Serum or plasma creatinine m easurement (mass/volume)Ordered By: Martin Gutierrez on 10-05-2024 Creatinine [Mass/Vol] 0.63 mg/dL 0.55-1.02 [facility] Comment on above: The validity of the calculated GFR & GFRAA in patients over 70 years has not been determined. Clinical correlation is essential. Serum or plasma urea nitroge n measurement (mass/volume)Ordered By: Martin Gutierrez on 10-05-2024 Urea nitrogen [Mass/Vol] 17 mg/dL 7-18 [facility] Sodium levelOrdered By: Martin Gutierrez on 10-05-2024 Sodium [Moles/Vol] 141 mmol/L 136-145 [facility] Absolute lymphocyte countOrd ered By: Simon Ulloa on 10-04-2024 Lymphocytes Auto (Unsp spec) [#/Vol] 1.35 10*3/uL 0.83-4.51 [facility] Absolute neutrophil countOrd ered By: Simon Ulloa on 10-04-2024 Neutrophils (Bld) [#/Vol] 6.4 10*3/uL 2.0-7.7 [facility] Automated lymphocyte count a s percentage of total leukocytesOrdered By: Simon Ulloa on 10-04-2024 Lymphocytes/100 WBC Auto (Unsp spec) 14.7 % Low 19-41 [facility] Basophil percentageOrdered B y: Simon Ulloa on 10-04-2024 Basophils/100 WBC (Bld) 0.3 % 0-1 [facility] CBC W/Diff, Automatedon 09-24 Absolute Lymph 1.35 X10 3/uL Normal 0.83-4.51 [facility] Comment on above: Performed By: #### L 501.2300, L500.2500, L501.5200, L100.0100 #### [facility] [address] [place], [address] Absolute Neut 6.4 X10 3/uL Normal 2.0-7.7 [facility] Comment on above: Performed By: #### L 501.2300, L500.2500, L501.5200, L100.0100 #### [facility] [address] [place], [address] Basophils/100 WBC (Bld) 0.3 % Normal 0-1 [facility] Comment on above: Performed By: #### L 501.2300, L500.2500, L501.5200, L100.0100 #### [facility] [address] [place], [address] Eosinophils/100 WBC (Bld) 0.5 % Normal 0-5 [facility] Comment on above: Performed By: #### L 501.2300, L500.2500, L501.5200, L100.0100 #### [facility] [address] [place], [address] Erythrocyte distribution width (RBC) [Ratio] 12.7 % Normal 11.6-14.6 [facility] Comment on above: Performed By: #### L 501.2300, L500.2500, L501.5200, L100.0100 #### [facility] [address] [place], [address] Hematocrit (Bld) [Volume fraction] 32.1 % Low 37-47 [facility] Comment on above: Performed By: #### L 501.2300, L500.2500, L501.5200, L100.0100 #### [facility] [address] [place], [address] Hemoglobin (Bld) [Mass/Vol] 10.4 g/dL Low 12.0-15.0 [facility] Comment on above: Performed By: #### L 501.2300, L500.2500, L501.5200, L100.0100 #### [facility] [address] [place], [address] IG% 2.900 High 0.0-0.9 [facility] Comment on above: Result Comment: IG% - Immature Granulocytes (promyelocytes, myelocytes and metamyelocytes) > 1% indicates that a LEFT SHIFT is Present. Performed By: #### L 501.2300, L500.2500, L501.5200, L100.0100 #### [facility] [address] [place], [address] Lymphocytes/100 WBC (Bld) 14.7 % Low 19-41 [facility] Comment on above: Performed By: #### L 501.2300, L500.2500, L501.5200, L100.0100 #### [facility] [address] [place], [address] MCH (RBC) [Entitic mass] 33.8 pg High 27.0-32.0 [facility] Comment on above: Performed By: #### L 501.2300, L500.2500, L501.5200, L100.0100 #### [facility] [address] [place], [address] MCHC (RBC) [Mass/Vol] 32.4 g/dL Normal 32-36 [facility] Comment on above: Performed By: #### L 501.2300, L500.2500, L501.5200, L100.0100 #### [facility] [address] [place], [address] MCV (RBC) [Entitic vol] 104.2 fL High 81-99 [facility] Comment on above: Performed By: #### L 501.2300, L500.2500, L501.5200, L100.0100 #### [facility] [address] [place], [address] Monocytes/100 WBC (Bld) 11.8 % High 0-10 [facility] Comment on above: Performed By: #### L 501.2300, L500.2500, L501.5200, L100.0100 #### [facility] [address] [place], [address] Neutrophils/100 WBC (Bld) 69.8 % Normal 47-70 [facility] Comment on above: Performed By: #### L 501.2300, L500.2500, L501.5200, L100.0100 #### [facility] [address] [place], [address] Nucleated RBC (Bld) [#/Vol] 0 10*3/uL Normal 0-5 [facility] Comment on above: Performed By: #### L 501.2300, L500.2500, L501.5200, L100.0100 #### [facility] [address] [place], [address] Platelet mean volume (Bld) [Entitic vol] 9.6 fL Normal 6.2-12.0 [facility] Comment on above: Performed By: #### L 501.2300, L500.2500, L501.5200, L100.0100 #### [facility] [address] [place], [address] Platelets (Bld) [#/Vol] 455 10*3/uL High 150-450 [facility] Comment on above: Performed By: #### L 501.2300, L500.2500, L501.5200, L100.0100 #### [facility] [address] [place], [address] RBC (Bld) [#/Vol] 3.08 10*6/uL Low 4.2-5.4 [facility] Comment on above: Performed By: #### L 501.2300, L500.2500, L501.5200, L100.0100 #### [facility] [address] [place], [address] RDW SD 48.7 fl High 35.1-43.9 [facility] Comment on above: Performed By: #### L 501.2300, L500.2500, L501.5200, L100.0100 #### [facility] [address] [place], [address] WBC (Bld) [#/Vol] 9.2 10*3/uL Normal 4.4-11.0 [facility] Comment on above: Performed By: #### L 501.2300, L500.2500, L501.5200, L100.0100 #### [facility] [address] [place], [address] Eosinophil percentageOrdered By: Simon Ulloa on 10-04-2024 Eosinophils/100 WBC (Bld) 0.5 % 0-5 [facility] Erythrocyte distribution wid th ratioOrdered By: Simon Ulloa on 10-04-2024 Erythrocyte distribution width (RBC) [Ratio] 12.7 % 11.6-14.6 [facility] Erythrocyte distribution wid th standard deviationOrdered By: Simon Ulloa on 10-04-2024 Erythrocyte distribution width (RBC) [Ratio] 48.7 fl High 35.1-43.9 [facility] Ferritinon 10-04-2024 Ferritin [Mass/Vol] 38 ng/mL Normal [facility] Comment on above: Performed By: #### L 501.2300, L500.2500, L501.5200, L100.0100 #### [facility] [address] [place], [address] Ferritin measurementOrdered By: Simon Ulloa on 10-04-2024 Ferritin [Mass/Vol] 38 ng/mL [facility] Hematocrit Auto (Bld) [Volum e fraction]Ordered By: Simon Ulloa on 10-04-2024 Hematocrit (Bld) [Volume fraction] 32.1 % Low 37-47 [facility] Hemoglobin measurementOrdere d By: Simon Ulloa on 10-04-2024 Hemoglobin (Bld) [Mass/Vol] 10.4 g/dL Low 12.0-15.0 [facility] Immature granulocytes/100 WB C Auto (Bld)Ordered By: Simon Ulloa on 10-04-2024 Immature granulocytes/100 WBC (Bld) 2.900 % High 0.0-0.9 [facility] Comment on above: IG% - Immature Granu locytes (promyelocytes, myelocytes and metamyelocytes) > 1% indicates that a LEFT SHIFT is Present. Iron measurement (mass/mass) Ordered By: Simon Ulloa on 10-04-2024 Iron (Unsp spec) [Mass/Mass] 28 ug/dL Low 50-170 [facility] Iron+Iron Binding Capacityon 10-04-2024 Iron [Mass/Vol] 28 ug/dL Low 50-170 [facility] Comment on above: Performed By: #### L 501.2300, L500.2500, L501.5200, L100.0100 #### [facility] [address] [place], [address] IRON SATURATION 9.5 Low 15.0-55.0 [facility] Comment on above: Performed By: #### L 501.2300, L500.2500, L501.5200, L100.0100 #### [facility] [address] [place], [address] TIBC 296 ug/dL Normal 250-450 [facility] Comment on above: Performed By: #### L 501.2300, L500.2500, L501.5200, L100.0100 #### [facility] [address] [place], [address] MCV (mean corpuscular volume ) determinationOrdered By: Simon Ulloa on 10-04-2024 MCV (RBC) [Entitic vol] 104.2 fL High 81-99 [facility] Mean corpuscular hemoglobin (MCH) determinationOrdered By: Simon Ulloa on 10-04-2024 MCH (RBC) [Entitic mass] 33.8 pg High 27.0-32.0 [facility] Mean corpuscular hemoglobin concentration (MCHC) determinationOrdered By: Simon Ulloa on 10-04-2024 MCHC (RBC) [Mass/Vol] 32.4 g/dL 32-36 [facility] Mean platelet volume determi nationOrdered By: Simon Ulloa on 10-04-2024 Platelet mean volume (Bld) [Entitic vol] 9.6 fL 6.2-12.0 [facility] Monocyte percentageOrdered B y: Simon Ulloa on 10-04-2024 Monocytes/100 WBC (Bld) 11.8 % High 0-10 [facility] Neutrophil percentageOrdered By: Simon Ulloa on 10-04-2024 Neutrophils/100 WBC (Bld) 69.8 % 47-70 [facility] Nucleated red blood cell per centageOrdered By: Simon Ulloa on 10-04-2024 Nucleated RBC/100 WBC (Bld) [Ratio] 0 % 0-5 [facility] Oncology Visit Reporton 09-24 Oncology Visit Report [facility] [address] [place] [id number] OFFICE VISIT Date of Service: 10/04/24 1050 MR#: [id number] Acct: [id number] Name: ANGELES LARIOS Rep #: [id number] : 1960 From: Simon Ulloa MD Age/Sex: 64/F Location[facility] Status: Signed HPI Subjective Date of Service 10/04/24 Chief Complaint Iron deficiency anemia History of Present Illness Patient is a 63-year-old female postmenopausal with significant atherosclerotic arterial disease [...] endoscopies did not reveal any active bleeding. Repeat endoscopies and capsule studies were done April 2021 at [facility], according to patient 2 colonic vascular lesions were seen and cauterized. Interval History Was hospitalized September 2024 with influenza, recovering [facility] Medical History Tobacco use disorder, continuous Iron deficiency anemia due to chronic blood loss History of stress test Depression Hypothyroidism GERD (gastroesophageal reflux disease) Smoker Coronary artery disease Hypertension DVT (deep venous thrombosis) TIA (transient ischemic attack) Anemia Macrocytosis Nicotine dependence Chronic GI bleeding Peripheral vascular disease Non-rheumatic aortic stenosis Dysarthria Atherosclerosis of coronary artery of [place] heart without angina pectoris Essential (primary) hypertension Encounter for screening for lung cancer Bilateral carotid artery stenosis Pernicious anemia Sleep apnea IBS (irritable bowel syndrome) History of DVT (deep vein thrombosis) Diarrhea Nausea vomiting LEFT ARM SURGERY BLOOD CLOT Gastrointestinal bleed CVA (cerebral vascular accident) Hyperlipidemia Fibromyalgia Expressive language disorder Dysarthria Surgical History History of endoscopy S/P tubal ligation H/O cardiac catheterization History of cataract removal with insertion of prosthetic lens 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) Hx of bilateral cataract extraction History of coronary artery stent placement (12/20/08) History of left-sided carotid endarterectomy (01/2019) Hx of appendectomy Family History Father , at age 38, from [place] Myocardial infarction cardiomopathy Mother Atrial fibrillation Hypertension Hyperlipidemia Diabetes Brother CAD (coronary artery disease) cardiomopathy Myocardial infarction Sister cardiomopathy Social History adopted: No household members: spouse and family Smoking Status: Current every day smoker tobacco type: cigarettes Tobacco: How many years used: 50 Electronic Cigarette Use: not used second hand exposure: Yes quit status: has quit before alcohol intake: former year quit: 2017 substance use type: does not use caffeine: Yes Type: coffee Number of servings: 2 what type of physical activity do you participate in: none seatbelt use: sometimes do you feel safe at home: Yes ROS Constitutional Constitutional: Reports systems reviewed and no addt'l complaints, except as documented; Denies fever(s) Eyes Eyes: Reports systems reviewed and no addt'l complaints, except as documented ENT HEENT: Denies bleeding gums or epistaxis Cardiovascular Cardiovascular: Reports systems reviewed and no addt'l complaints, except as documented; Denies chest pain with activity or edema Respiratory/Chest Respiratory/Chest: Reports systems reviewed and no addt'l complaints, except as documented, cough and dyspnea on exertion; Denies hemoptysis Gastrointestinal Gastrointestinal: Reports systems reviewed and no addt'l complaints, except as documented; Denies hematochezia or melena Genitourinary Genitourinary: Reports systems reviewed and no addt'l complaints, except as documented; Denies hematuria Integumentary Integumentary: Reports unusual bruising; Denies bleeding lesions Neurologic Neurologic: Reports systems reviewed and no addt'l complaints, except as documented Psychiatric Psychiatric: Reports systems reviewed and no addt'l complaints, except as documented Endocrine Endocrinology: Reports systems reviewed and no addt'l complaints, except as documented Hematologic/Lymphatic Hematologic/Lymphatic : Reports easy bruising; Denies easy bleeding Allergic/Immunologic Allergic/Immunologic: (more content not included)... Normal [facility] Platelet countOrdered By: Darryl Ulloa on 10-04-2024 Platelets (Bld) [#/Vol] 455 10*3/uL High 150-450 [facility] RBC Auto (Bld) [#/Vol]Ordere d By: Simon Ulloa on 10-04-2024 RBC (Bld) [#/Vol] 3.08 10*6/uL Low 4.2-5.4 [facility] Retic Panelon 10-04-2024 IM RET FRACTION 29.00 High 3.00-15.90 [facility] Comment on above: Performed By: #### L 501.2300, L500.2500, L501.5200, L100.0100 #### [facility] [address] [place], [address] RET-HE 27.0 pg Low 30-35 [facility] Comment on above: Performed By: #### L 501.2300, L500.2500, L501.5200, L100.0100 #### [facility] [address] [place], [address] Retic Count 3.65 High 0.5-1.5 [facility] Comment on above: Performed By: #### L 501.2300, L500.2500, L501.5200, L100.0100 #### [facility] [address] [place], [address] Reticulocyte hemoglobin equi valent (RET-He) measurementOrdered By: Simon Ulloa on 10-04-2024 Hemoglobin (Reticulocytes) [Entitic mass] 27.0 pg Low 30-35 [facility] Reticulocytes Auto (Bld) [#/ Vol]Ordered By: Simon Ulloa on 10-04-2024 Reticulocytes/100 RBC (Bld) 3.65 % High 0.5-1.5 [facility] Serum or plasma iron saturat ion measurement (mass fraction)Ordered By: Simon Ulloa on 10-04-2024 Iron saturation [Mass fraction] 9.5 % Low 15.0-55.0 [facility] Vitamin B12on 10-04-2024 Cobalamin (Vitamin B12) [Mass/Vol] 438 pg/mL Normal [facility] Comment on above: Performed By: #### L 501.2300, L500.2500, L501.5200, L100.0100 #### [facility] [address] [place], [address] Vitamin B12 measurementOrder ed By: Simon Ulloa on 10-04-2024 Cobalamin (Vitamin B12) [Mass/Vol] 438 pg/mL [facility] White blood cell (WBC) count Ordered By: Simon Ulloa on 10-04-2024 WBC (Bld) [#/Vol] 9.2 10*3/uL 4.4-11.0 [facility] Culture, Blood (WB)on 2024 CUB Blood cultures x2, from two different sites No growth in 5 days. Normal [facility] Comment on above: Performed By: #### L 503.6030, L501.9520, L500.4050, L503.6550, L100.0100, L506.1001 #### [facility] [address] [place], [address] Basic Metabolic Profile (BMP )on 09-30-2024 BUN Normal 7-18 [facility] Comment on above: Result Comment: Canc elled via OM: Order cancelled - Patient discharged Performed By: #### L 501.2300, L500.2500, L501.5200, L100.0100 #### [facility] [address] [place], [address] BUN/CRE Normal 10-20 [facility] Comment on above: Result Comment: Canc elled via OM: Order cancelled - Patient discharged Performed By: #### L 501.2300, L500.2500, L501.5200, L100.0100 #### [facility] [address] [place], [address] CA,Total Normal 8.5-10.1 [facility] Comment on above: Result Comment: Canc elled via OM: Order cancelled - Patient discharged Performed By: #### L 501.2300, L500.2500, L501.5200, L100.0100 #### [facility] [address] [place], [address] CL Normal 98-107 [facility] Comment on above: Result Comment: Canc elled via OM: Order cancelled - Patient discharged Performed By: #### L 501.2300, L500.2500, L501.5200, L100.0100 #### [facility] [address] [place], [address] CO2 Normal 21.0-32.0 [facility] Comment on above: Result Comment: Canc elled via OM: Order cancelled - Patient discharged Performed By: #### L 501.2300, L500.2500, L501.5200, L100.0100 #### [facility] [address] [place], [address] CREAT,SERUM Normal 0.55-1.02 [facility] Comment on above: Result Comment: Canc elled via OM: Order cancelled - Patient discharged Performed By: #### L 501.2300, L500.2500, L501.5200, L100.0100 #### [facility] [address] [place], [address] EST GFR Normal >60 [facility] Comment on above: Result Comment: Canc elled via OM: Order cancelled - Patient discharged Performed By: #### L 501.2300, L500.2500, L501.5200, L100.0100 #### [facility] [address] [place], [address] EST GFR - AA Normal >60 [facility] Comment on above: Result Comment: Canc elled via OM: Order cancelled - Patient discharged Performed By: #### L 501.2300, L500.2500, L501.5200, L100.0100 #### [facility] [address] [place], [address] GAP Normal 5-15 [facility] Comment on above: Result Comment: Canc elled via OM: Order cancelled - Patient discharged Performed By: #### L 501.2300, L500.2500, L501.5200, L100.0100 #### [facility] [address] [place], [address] GLU Normal 74-106 [facility] Comment on above: Result Comment: Canc elled via OM: Order cancelled - Patient discharged Performed By: #### L 501.2300, L500.2500, L501.5200, L100.0100 #### [facility] [address] [place], [address] Potassium Normal 3.5-5.1 [facility] Comment on above: Result Comment: Canc elled via OM: Order cancelled - Patient discharged Performed By: #### L 501.2300, L500.2500, L501.5200, L100.0100 #### [facility] [address] [place], [address] Basic Metabolic Profile (BMP) Normal 136-145 [facility] Comment on above: Result Comment: Canc elled via OM: Order cancelled - Patient discharged Performed By: #### L 501.2300, L500.2500, L501.5200, L100.0100 #### [facility] [address] [place], [address] CBC W/Diff, Automatedon 02-0 -2024 Absolute Neut Normal 2.0-7.7 [facility] Comment on above: Result Comment: Canc elled via OM: Order cancelled - Patient discharged Performed By: #### L 501.2300, L500.2500, L501.5200, L100.0100 #### [facility] [address] [place], [address] HCT Normal 37-47 [facility] Comment on above: Result Comment: Canc elled via OM: Order cancelled - Patient discharged Performed By: #### L 501.2300, L500.2500, L501.5200, L100.0100 #### [facility] [address] [place], [address] HGB Normal 12.0-15.0 [facility] Comment on above: Result Comment: Canc elled via OM: Order cancelled - Patient discharged Performed By: #### L 501.2300, L500.2500, L501.5200, L100.0100 #### [facility] [address] [place], [address] MCH Normal 27.0-32.0 [facility] Comment on above: Result Comment: Canc elled via OM: Order cancelled - Patient discharged Performed By: #### L 501.2300, L500.2500, L501.5200, L100.0100 #### [facility] [address] [place], [address] MCHC Normal 32-36 [facility] Comment on above: Result Comment: Canc elled via OM: Order cancelled - Patient discharged Performed By: #### L 501.2300, L500.2500, L501.5200, L100.0100 #### [facility] [address] [place], [address] MCV Normal 81-99 [facility] Comment on above: Result Comment: Canc elled via OM: Order cancelled - Patient discharged Performed By: #### L 501.2300, L500.2500, L501.5200, L100.0100 #### [facility] [address] [place], [address] NEUT% Normal 47-70 [facility] Comment on above: Result Comment: Canc elled via OM: Order cancelled - Patient discharged Performed By: #### L 501.2300, L500.2500, L501.5200, L100.0100 #### [facility] [address] [place], [address] PLT Normal 150-450 [facility] Comment on above: Result Comment: Canc elled via OM: Order cancelled - Patient discharged Performed By: #### L 501.2300, L500.2500, L501.5200, L100.0100 #### [facility] [address] [place], [address] RBC Normal 4.2-5.4 [facility] Comment on above: Result Comment: Canc elled via OM: Order cancelled - Patient discharged Performed By: #### L 501.2300, L500.2500, L501.5200, L100.0100 #### [facility] [address] [place], [address] RDW CV Normal 11.6-14.6 [facility] Comment on above: Result Comment: Canc elled via OM: Order cancelled - Patient discharged Performed By: #### L 501.2300, L500.2500, L501.5200, L100.0100 #### [facility] [address] [place], [address] RDW SD Normal 35.1-43.9 [facility] Comment on above: Result Comment: Canc elled via OM: Order cancelled - Patient discharged Performed By: #### L 501.2300, L500.2500, L501.5200, L100.0100 #### [facility] [address] [place], [address] WBC Normal 4.4-11.0 [facility] Comment on above: Result Comment: Canc elled via OM: Order cancelled - Patient discharged Performed By: #### L 501.2300, L500.2500, L501.5200, L100.0100 #### [facility] [address] [place], [address] Basic Metabolic Profile (BMP )on 09-29-2024 BUN Normal 7-18 [facility] Comment on above: Result Comment: Canc elled via OM: Order cancelled - Patient discharged Performed By: #### L 501.2300, L500.2500, L501.5200, L100.0100 #### [facility] [address] [place], [address] BUN/CRE Normal 10-20 [facility] Comment on above: Result Comment: Canc elled via OM: Order cancelled - Patient discharged Performed By: #### L 501.2300, L500.2500, L501.5200, L100.0100 #### [facility] [address] [place], [address] CA,Total Normal 8.5-10.1 [facility] Comment on above: Result Comment: Canc elled via OM: Order cancelled - Patient discharged Performed By: #### L 501.2300, L500.2500, L501.5200, L100.0100 #### [facility] [address] [place], [address] CL Normal 98-107 [facility] Comment on above: Result Comment: Canc elled via OM: Order cancelled - Patient discharged Performed By: #### L 501.2300, L500.2500, L501.5200, L100.0100 #### [facility] [address] [place], [address] CO2 Normal 21.0-32.0 [facility] Comment on above: Result Comment: Canc elled via OM: Order cancelled - Patient discharged Performed By: #### L 501.2300, L500.2500, L501.5200, L100.0100 #### [facility] [address] [place], [address] CREAT,SERUM Normal 0.55-1.02 [facility] Comment on above: Result Comment: Canc elled via OM: Order cancelled - Patient discharged Performed By: #### L 501.2300, L500.2500, L501.5200, L100.0100 #### [facility] [address] [place], [address] EST GFR Normal >60 [facility] Comment on above: Result Comment: Canc elled via OM: Order cancelled - Patient discharged Performed By: #### L 501.2300, L500.2500, L501.5200, L100.0100 #### [facility] [address] [place], [address] EST GFR - AA Normal >60 [facility] Comment on above: Result Comment: Canc elled via OM: Order cancelled - Patient discharged Performed By: #### L 501.2300, L500.2500, L501.5200, L100.0100 #### [facility] [address] [place], [address] GAP Normal 5-15 [facility] Comment on above: Result Comment: Canc elled via OM: Order cancelled - Patient discharged Performed By: #### L 501.2300, L500.2500, L501.5200, L100.0100 #### [facility] [address] [place], [address] GLU Normal 74-106 [facility] Comment on above: Result Comment: Canc elled via OM: Order cancelled - Patient discharged Performed By: #### L 501.2300, L500.2500, L501.5200, L100.0100 #### [facility] [address] [place], [address] Potassium Normal 3.5-5.1 [facility] Comment on above: Result Comment: Canc elled via OM: Order cancelled - Patient discharged Performed By: #### L 501.2300, L500.2500, L501.5200, L100.0100 #### [facility] [address] [place], [address] Basic Metabolic Profile (BMP) Normal 136-145 [facility] Comment on above: Result Comment: Canc elled via OM: Order cancelled - Patient discharged Performed By: #### L 501.2300, L500.2500, L501.5200, L100.0100 #### [facility] [address] [place], [address] CBC W/Diff, Automatedon 02-0 Absolute Neut Normal 2.0-7.7 [facility] Comment on above: Result Comment: Canc elled via OM: Order cancelled - Patient discharged Performed By: #### L 501.2300, L500.2500, L501.5200, L100.0100 #### [facility] [address] [place], [address] HCT Normal 37-47 [facility] Comment on above: Result Comment: Canc elled via OM: Order cancelled - Patient discharged Performed By: #### L 501.2300, L500.2500, L501.5200, L100.0100 #### [facility] [address] [place], [address] HGB Normal 12.0-15.0 [facility] Comment on above: Result Comment: Canc elled via OM: Order cancelled - Patient discharged Performed By: #### L 501.2300, L500.2500, L501.5200, L100.0100 #### [facility] [address] [place], [address] MCH Normal 27.0-32.0 [facility] Comment on above: Result Comment: Canc elled via OM: Order cancelled - Patient discharged Performed By: #### L 501.2300, L500.2500, L501.5200, L100.0100 #### [facility] [address] [place], [address] MCHC Normal 32-36 [facility] Comment on above: Result Comment: Canc elled via OM: Order cancelled - Patient discharged Performed By: #### L 501.2300, L500.2500, L501.5200, L100.0100 #### [facility] [address] [place], [address] MCV Normal 81-99 [facility] Comment on above: Result Comment: Canc elled via OM: Order cancelled - Patient discharged Performed By: #### L 501.2300, L500.2500, L501.5200, L100.0100 #### [facility] [address] [place], [address] NEUT% Normal 47-70 [facility] Comment on above: Result Comment: Canc elled via OM: Order cancelled - Patient discharged Performed By: #### L 501.2300, L500.2500, L501.5200, L100.0100 #### [facility] [address] [place], [address] PLT Normal 150-450 [facility] Comment on above: Result Comment: Canc elled via OM: Order cancelled - Patient discharged Performed By: #### L 501.2300, L500.2500, L501.5200, L100.0100 #### [facility] [address] [place], [address] RBC Normal 4.2-5.4 [facility] Comment on above: Result Comment: Canc elled via OM: Order cancelled - Patient discharged Performed By: #### L 501.2300, L500.2500, L501.5200, L100.0100 #### [facility] [address] [place], [address] RDW CV Normal 11.6-14.6 [facility] Comment on above: Result Comment: Canc elled via OM: Order cancelled - Patient discharged Performed By: #### L 501.2300, L500.2500, L501.5200, L100.0100 #### [facility] [address] [place], [address] RDW SD Normal 35.1-43.9 [facility] Comment on above: Result Comment: Canc elled via OM: Order cancelled - Patient discharged Performed By: #### L 501.2300, L500.2500, L501.5200, L100.0100 #### [facility] [address] [place], [address] WBC Normal 4.4-11.0 [facility] Comment on above: Result Comment: Canc elled via OM: Order cancelled - Patient discharged Performed By: #### L 501.2300, L500.2500, L501.5200, L100.0100 #### [facility] [address] [place], [address] Respiratory Cultureon 2024 RESPC Ampicillin can be used for Beta-Lactamase negative isolates. Microorganism Spec Cult Trimeth/Sulfa, Chloramphenicol, Cefotaxime, Ciprofloxacin, Amoxicillin/Clavulani c Acid, and Oral 2nd/3rd Generation Cephalosporins are effective against both Beta-Lactamase positive and Beta-Lactamase negative isolates. Haemophilus influenzae Amount Growth 3+ Beta Lactamase-Reportable Positive Normal [facility] Comment on above: Performed By: #### L 503.6030, L501.9520, L500.4050, L503.6550, L100.0100, L506.1001 #### [facility] [address] [place], [address] Absolute lymphocyte countOrd ered By: Scott Mcneal on 09-28-2024 Lymphocytes Auto (Unsp spec) [#/Vol] 0.56 10*3/uL Low 0.83-4.51 [facility] Absolute neutrophil countOrd ered By: Scott Mcneal on 09-28-2024 Neutrophils (Bld) [#/Vol] 5.5 10*3/uL 2.0-7.7 [facility] Automated lymphocyte count a s percentage of total leukocytesOrdered By: Scott Mcneal on 09-28-2024 Lymphocytes/100 WBC Auto (Unsp spec) 8.5 % Low 19-41 [facility] Basic Metabolic Profile (BMP )on 09-28-2024 BUN/CRE 38.9 RATIO High 10-20 [facility] Comment on above: Performed By: #### L 501.2300, L500.2500, L501.5200, L100.0100 #### [facility] [address] [place], [place], [id number] CA,Total 8.8 mg/dL Normal 8.5-10.1 [facility] Comment on above: Performed By: #### L 501.2300, L500.2500, L501.5200, L100.0100 #### [facility] [address] [place], [address] Chloride [Moles/Vol] 105 mmol/L Normal 98-107 [facility] Comment on above: Performed By: #### L 501.2300, L500.2500, L501.5200, L100.0100 #### [facility] [address] [place], [address] CO2 [Moles/Vol] 27.0 mmol/L Normal 21.0-32.0 [facility] Comment on above: Performed By: #### L 501.2300, L500.2500, L501.5200, L100.0100 #### [facility] [address] [place], [address] Creatinine [Mass/Vol] 0.51 mg/dL Low 0.55-1.02 [facility] Comment on above: Result Comment: The validity of the calculated GFR GFRAA in patients over 70 years has not been determined. Clinical correlation is essential. Performed By: #### L 501.2300, L500.2500, L501.5200, L100.0100 #### [facility] [address] [place], [address] ECRCL 76.35 ml/min Normal [facility] Comment on above: Performed By: #### L 501.2300, L500.2500, L501.5200, L100.0100 #### [facility] [address] [place], [address] EST GFR - AA 154 mL/min Normal >60 [facility] Comment on above: Result Comment: Afri can [place] GFR Calc Performed By: #### L 501.2300, L500.2500, L501.5200, L100.0100 #### [facility] [address] [place], [address] GAP 6 Normal 5-15 [facility] Comment on above: Performed By: #### L 501.2300, L500.2500, L501.5200, L100.0100 #### [facility] [address] [place], [address] GFR/1.73 sq M.predicted among non-blacks MDRD (S/P/Bld) [Vol rate/Area] 127 mL/min/{1.73_m2} Normal >60 [facility] Comment on above: Result Comment: Non- GFR Calc Performed By: #### L 501.2300, L500.2500, L501.5200, L100.0100 #### [facility] [address] [place], [address] Glucose [Mass/Vol] 176 mg/dL High 74-106 [facility] Comment on above: Result Comment: Fast ing Glucose result greater than or equal to 126 mg/dL suggests DIABETES MELLITUS per A.D.A. criteria. Performed By: #### L 501.2300, L500.2500, L501.5200, L100.0100 #### [facility] [address] [place], [address] Potassium [Moles/Vol] 4.2 mmol/L Normal 3.5-5.1 [facility] Comment on above: Performed By: #### L 501.2300, L500.2500, L501.5200, L100.0100 #### [facility] [address] [place], [address] Sodium [Moles/Vol] 138 mmol/L Normal 136-145 [facility] Comment on above: Performed By: #### L 501.2300, L500.2500, L501.5200, L100.0100 #### [facility] [address] [place], [address] Urea nitrogen [Mass/Vol] 20 mg/dL High 7-18 [facility] Comment on above: Performed By: #### L 501.2300, L500.2500, L501.5200, L100.0100 #### [facility] [address] [place], [address] Basophil percentageOrdered B y: Scott Mcneal on 09-28-2024 Basophils/100 WBC (Bld) 0.2 % 0-1 [facility] Blood urea nitrogen (BUN)/cr eatinine ratioOrdered By: Scott Ruizmarcosnicola on 09-28-2024 Urea nitrogen/Creatinine [Mass ratio] 38.9 mg/mg High 10-20 [facility] CBC W/Diff, Automatedon Absolute Lymph 0.56 X10 3/uL Low 0.83-4.51 [facility] Comment on above: Performed By: #### L 501.2300, L500.2500, L501.5200, L100.0100 #### [facility] [address] [place], [address] Absolute Neut 5.5 X10 3/uL Normal 2.0-7.7 [facility] Comment on above: Performed By: #### L 501.2300, L500.2500, L501.5200, L100.0100 #### [facility] [address] [place], [address] Basophils/100 WBC (Bld) 0.2 % Normal 0-1 [facility] Comment on above: Performed By: #### L 501.2300, L500.2500, L501.5200, L100.0100 #### [facility] [address] [place], [address] Eosinophils/100 WBC (Bld) 0.0 % Normal 0-5 [facility] Comment on above: Performed By: #### L 501.2300, L500.2500, L501.5200, L100.0100 #### [facility] [address] [place], [address] Erythrocyte distribution width (RBC) [Ratio] 12.2 % Normal 11.6-14.6 [facility] Comment on above: Performed By: #### L 501.2300, L500.2500, L501.5200, L100.0100 #### [facility] [address] [place], [address] Hematocrit (Bld) [Volume fraction] 33.7 % Low 37-47 [facility] Comment on above: Performed By: #### L 501.2300, L500.2500, L501.5200, L100.0100 #### [facility] [address] [place], [address] Hemoglobin (Bld) [Mass/Vol] 10.8 g/dL Low 12.0-15.0 [facility] Comment on above: Performed By: #### L 501.2300, L500.2500, L501.5200, L100.0100 #### [facility] [address] [place], [address] IG% 0.500 Normal 0.0-0.9 [facility] Comment on above: Result Comment: IG% - Immature Granulocytes (promyelocytes, myelocytes and metamyelocytes) > 1% indicates that a LEFT SHIFT is Present. Performed By: #### L 501.2300, L500.2500, L501.5200, L100.0100 #### [facility] [address] [place], [address] Lymphocytes/100 WBC (Bld) 8.5 % Low 19-41 [facility] Comment on above: Performed By: #### L 501.2300, L500.2500, L501.5200, L100.0100 #### [facility] [address] [place], [address] MCH (RBC) [Entitic mass] 34.3 pg High 27.0-32.0 [facility] Comment on above: Performed By: #### L 501.2300, L500.2500, L501.5200, L100.0100 #### [facility] [address] [place], [address] MCHC (RBC) [Mass/Vol] 32.0 g/dL Normal 32-36 [facility] Comment on above: Performed By: #### L 501.2300, L500.2500, L501.5200, L100.0100 #### [facility] [address] [place], [address] MCV (RBC) [Entitic vol] 107.0 fL High 81-99 [facility] Comment on above: Performed By: #### L 501.2300, L500.2500, L501.5200, L100.0100 #### [facility] [address] [place], [address] Monocytes/100 WBC (Bld) 7.6 % Normal 0-10 [facility] Comment on above: Performed By: #### L 501.2300, L500.2500, L501.5200, L100.0100 #### [facility] [address] [place], [address] Neutrophils/100 WBC (Bld) 83.2 % High 47-70 [facility] Comment on above: Performed By: #### L 501.2300, L500.2500, L501.5200, L100.0100 #### [facility] [address] [place], [address] Nucleated RBC (Bld) [#/Vol] 0 10*3/uL Normal 0-5 [facility] Comment on above: Performed By: #### L 501.2300, L500.2500, L501.5200, L100.0100 #### [facility] [address] [place], [address] Platelet mean volume (Bld) [Entitic vol] 10.2 fL Normal 6.2-12.0 [facility] Comment on above: Performed By: #### L 501.2300, L500.2500, L501.5200, L100.0100 #### [facility] [address] [place], [address] Platelets (Bld) [#/Vol] 210 10*3/uL Normal 150-450 [facility] Comment on above: Performed By: #### L 501.2300, L500.2500, L501.5200, L100.0100 #### [facility] [address] [place], [address] RBC (Bld) [#/Vol] 3.15 10*6/uL Low 4.2-5.4 [facility] Comment on above: Performed By: #### L 501.2300, L500.2500, L501.5200, L100.0100 #### [facility] [address] [place], [address] RDW SD 47.8 fl High 35.1-43.9 [facility] Comment on above: Performed By: #### L 501.2300, L500.2500, L501.5200, L100.0100 #### [facility] [address] [place], [address] WBC (Bld) [#/Vol] 6.6 10*3/uL Normal 4.4-11.0 [facility] Comment on above: Performed By: #### L 501.2300, L500.2500, L501.5200, L100.0100 #### [facility] [address] [place], [address] Carbon dioxide measurementOr dered By: Scott Mcneal on 09-28-2024 CO2 [Moles/Vol] 27.0 mmol/L 21.0-32.0 [facility] Chloride measurementOrdered By: Scott Mcneal on 09-28-2024 Chloride [Moles/Vol] 105 mmol/L 98-107 [facility] Eosinophil percentageOrdered By: Scott Mcneal on 09-28-2024 Eosinophils/100 WBC (Bld) 0.0 % 0-5 [facility] Erythrocyte distribution wid th ratioOrdered By: Scott Mcneal on 09-28-2024 Erythrocyte distribution width (RBC) [Ratio] 12.2 % 11.6-14.6 [facility] Erythrocyte distribution wid th standard deviationOrdered By: Scott Mcneal on 09-28-2024 Erythrocyte distribution width (RBC) [Ratio] 47.8 fl High 35.1-43.9 [facility] Glomerular filtration rate ( GFR) estimationOrdered By: Scott Mcneal on 09-28-2024 GFR/1.73 sq M.predicted among non-blacks MDRD (S/P/Bld) [Vol rate/Area] 127 mL/min/{1.73_m2} >60 [facility] Comment on above: Non- GFR Calc Glucose measurementOrdered B y: Scott Mcneal on 09-28-2024 Glucose [Mass/Vol] 176 mg/dL High 74-106 [facility] Comment on above: Fasting Glucose resu lt greater than or equal to 126 mg/dL suggests DIABETES MELLITUS per A.D.A. criteria. Hematocrit Auto (Bld) [Volum e fraction]Ordered By: Scott Mcneal on 09-28-2024 Hematocrit (Bld) [Volume fraction] 33.7 % Low 37-47 [facility] Hemoglobin measurementOrdere d By: Scott Mcneal on 09-28-2024 Hemoglobin (Bld) [Mass/Vol] 10.8 g/dL Low 12.0-15.0 [facility] Immature granulocytes/100 WB C Auto (Bld)Ordered By: Scott Mcneal on 09-28-2024 Immature granulocytes/100 WBC (Bld) 0.500 % 0.0-0.9 [facility] Comment on above: IG% - Immature Granu locytes (promyelocytes, myelocytes and metamyelocytes) > 1% indicates that a LEFT SHIFT is Present. MCV (mean corpuscular volume ) determinationOrdered By: Scott Mcneal on 09-28-2024 MCV (RBC) [Entitic vol] 107.0 fL High 81-99 [facility] Magnesiumon 09-28-2024 Magnesium [Mass/Vol] 2.7 mg/dL High 1.6-2.6 [facility] Comment on above: Performed By: #### L 501.2300, L500.2500, L501.5200, L100.0100 #### [facility] [address] [place], [place], [id number] Magnesium measurementOrdered By: Scott Mcneal on 09-28-2024 Magnesium [Mass/Vol] 2.7 mg/dL High 1.6-2.6 [facility] Mean corpuscular hemoglobin (MCH) determinationOrdered By: Scott Mcneal on 09-28-2024 MCH (RBC) [Entitic mass] 34.3 pg High 27.0-32.0 [facility] Mean corpuscular hemoglobin concentration (MCHC) determinationOrdered By: Scott Mcneal on 09-28-2024 MCHC (RBC) [Mass/Vol] 32.0 g/dL 32-36 [facility] Mean platelet volume determi nationOrdered By: Scott Mcneal on 09-28-2024 Platelet mean volume (Bld) [Entitic vol] 10.2 fL 6.2-12.0 [facility] Monocyte percentageOrdered B y: Scott Mcneal on 09-28-2024 Monocytes/100 WBC (Bld) 7.6 % 0-10 [facility] Neutrophil percentageOrdered By: Scott Mcneal on 09-28-2024 Neutrophils/100 WBC (Bld) 83.2 % High 47-70 [facility] Nucleated red blood cell per centageOrdered By: Scott Mcneal on 09-28-2024 Nucleated RBC/100 WBC (Bld) [Ratio] 0 % 0-5 [facility] Phosphoruson 09-28-2024 Phosphate [Mass/Vol] 3.9 mg/dL Normal 2.5-4.9 [facility] Comment on above: Performed By: #### L 501.2300, L500.2500, L501.5200, L100.0100 #### [facility] [address] [place], [address] Platelet countOrdered By: Patric Mcneal on 09-28-2024 Platelets (Bld) [#/Vol] 210 10*3/uL 150-450 [facility] Potassium measurementOrdered By: Scott Mcneal on 09-28-2024 Potassium [Moles/Vol] 4.2 mmol/L 3.5-5.1 [facility] RBC Auto (Bld) [#/Vol]Ordere d By: Scott Mcneal on 09-28-2024 RBC (Bld) [#/Vol] 3.15 10*6/uL Low 4.2-5.4 [facility] Serum anion gap measurementO rdered By: Scott Mcneal on 09-28-2024 Anion gap [Moles/Vol] 6 mmol/L 5-15 [facility] Serum or plasma calcium kamlesh urement (mass/volume)Ordered By: Scott Mcneal on 09-28-2024 Calcium [Mass/Vol] 8.8 mg/dL 8.5-10.1 [facility] Serum or plasma creatinine m easurement (mass/volume)Ordered By: Scott Mcneal on 09-28-2024 Creatinine [Mass/Vol] 0.51 mg/dL Low 0.55-1.02 [facility] Comment on above: The validity of the calculated GFR & GFRAA in patients over 70 years has not been determined. Clinical correlation is essential. Serum or plasma urea nitroge n measurement (mass/volume)Ordered By: Scott Mcneal on 09-28-2024 Urea nitrogen [Mass/Vol] 20 mg/dL High 7-18 [facility] Sodium levelOrdered By: Nazario Mcneal on 09-28-2024 Sodium [Moles/Vol] 138 mmol/L 136-145 [facility] White blood cell (WBC) count Ordered By: Scott Mcneal on 09-28-2024 WBC (Bld) [#/Vol] 6.6 10*3/uL 4.4-11.0 [facility] Albumin to globulin ratioOrd ered By: Esperanza Myers on 09-27-2024 Albumin/Globulin [Mass ratio] 0.7 {ratio} Low 0.9-2.4 [facility] Bilirubin, totalOrdered By: Esperanza Myers on 09-27-2024 Bilirubin [Mass/Vol] 0.20 mg/dL 0.20-1.00 [facility] Comment on above: For patients on eltr ombopag therapy, use of Dimension [place] TBIL is not recommended. CBC W/Diff, Automatedon Absolute Lymph 0.31 X10 3/uL Low 0.83-4.51 [facility] Comment on above: Performed By: #### L 501.2300, L500.2500, L501.5200, L100.0100 #### [facility] [address] [place], [address] Absolute Neut 2.7 X10 3/uL Normal 2.0-7.7 [facility] Comment on above: Performed By: #### L 501.2300, L500.2500, L501.5200, L100.0100 #### [facility] [address] [place], [address] Basophils/100 WBC (Bld) 0.3 % Normal 0-1 [facility] Comment on above: Performed By: #### L 501.2300, L500.2500, L501.5200, L100.0100 #### [facility] [address] [place], [address] Eosinophils/100 WBC (Bld) 0.0 % Normal 0-5 [facility] Comment on above: Performed By: #### L 501.2300, L500.2500, L501.5200, L100.0100 #### [facility] [address] [place], [address] Erythrocyte distribution width (RBC) [Ratio] 12.0 % Normal 11.6-14.6 [facility] Comment on above: Performed By: #### L 501.2300, L500.2500, L501.5200, L100.0100 #### [facility] [address] [place], [address] Hematocrit (Bld) [Volume fraction] 33.4 % Low 37-47 [facility] Comment on above: Performed By: #### L 501.2300, L500.2500, L501.5200, L100.0100 #### [facility] [address] [place], [address] Hemoglobin (Bld) [Mass/Vol] 10.8 g/dL Low 12.0-15.0 [facility] Comment on above: Performed By: #### L 501.2300, L500.2500, L501.5200, L100.0100 #### [facility] [address] [place], [address] IG% 1.000 High 0.0-0.9 [facility] Comment on above: Result Comment: IG% - Immature Granulocytes (promyelocytes, myelocytes and metamyelocytes) > 1% indicates that a LEFT SHIFT is Present. Performed By: #### L 501.2300, L500.2500, L501.5200, L100.0100 #### [facility] [address] [place], [address] Lymphocytes/100 WBC (Bld) 9.8 % Low 19-41 [facility] Comment on above: Performed By: #### L 501.2300, L500.2500, L501.5200, L100.0100 #### [facility] [address] [place], [address] MCH (RBC) [Entitic mass] 34.2 pg High 27.0-32.0 [facility] Comment on above: Performed By: #### L 501.2300, L500.2500, L501.5200, L100.0100 #### [facility] [address] [place], [address] MCHC (RBC) [Mass/Vol] 32.3 g/dL Normal 32-36 [facility] Comment on above: Performed By: #### L 501.2300, L500.2500, L501.5200, L100.0100 #### [facility] [address] [place], [address] MCV (RBC) [Entitic vol] 105.7 fL High 81-99 [facility] Comment on above: Performed By: #### L 501.2300, L500.2500, L501.5200, L100.0100 #### [facility] [address] [place], [address] Monocytes/100 WBC (Bld) 4.4 % Normal 0-10 [facility] Comment on above: Performed By: #### L 501.2300, L500.2500, L501.5200, L100.0100 #### [facility] [address] [place], [address] Neutrophils/100 WBC (Bld) 84.5 % High 47-70 [facility] Comment on above: Performed By: #### L 501.2300, L500.2500, L501.5200, L100.0100 #### [facility] [address] [place], [address] Nucleated RBC (Bld) [#/Vol] 0 10*3/uL Normal 0-5 [facility] Comment on above: Performed By: #### L 501.2300, L500.2500, L501.5200, L100.0100 #### [facility] [address] [place], [address] Platelet mean volume (Bld) [Entitic vol] 10.0 fL Normal 6.2-12.0 [facility] Comment on above: Performed By: #### L 501.2300, L500.2500, L501.5200, L100.0100 #### [facility] [address] [place], [address] Platelets (Bld) [#/Vol] 172 10*3/uL Normal 150-450 [facility] Comment on above: Performed By: #### L 501.2300, L500.2500, L501.5200, L100.0100 #### [facility] [address] [place], [address] RBC (Bld) [#/Vol] 3.16 10*6/uL Low 4.2-5.4 [facility] Comment on above: Performed By: #### L 501.2300, L500.2500, L501.5200, L100.0100 #### [facility] [address] [place], [address] RDW SD 47.5 fl High 35.1-43.9 [facility] Comment on above: Performed By: #### L 501.2300, L500.2500, L501.5200, L100.0100 #### [facility] [address] [place], [address] WBC (Bld) [#/Vol] 3.2 10*3/uL Low 4.4-11.0 [facility] Comment on above: Performed By: #### L 501.2300, L500.2500, L501.5200, L100.0100 #### [facility] [address] [place], [address] Comprehensive Metabolic Prof [facility] 09-27-2024 Albumin [Mass/Vol] 2.4 g/dL Low 3.2-5.0 [facility] Comment on above: Performed By: #### L 501.2300, L500.2500, L501.5200, L100.0100 #### [facility] [facility] [address] [place], [address] Albumin/Globulin [Mass ratio] 0.7 {ratio} Low 0.9-2.4 [facility] Comment on above: Performed By: #### L 501.2300, L500.2500, L501.5200, L100.0100 #### [facility] [address] [place], [address] ALK P 65 U/L Normal 45-117 [facility] Comment on above: Performed By: #### L 501.2300, L500.2500, L501.5200, L100.0100 #### [facility] [address] [place], [address] ALT [Catalytic activity/Vol] 14 U/L Normal 13-56 [facility] Comment on above: Performed By: #### L 501.2300, L500.2500, L501.5200, L100.0100 #### [facility] [address] [place], [address] AST [Catalytic activity/Vol] 12 U/L Low 15-37 [facility] Comment on above: Performed By: #### L 501.2300, L500.2500, L501.5200, L100.0100 #### [facility] [address] [place], [address] Bilirubin [Mass/Vol] 0.20 mg/dL Normal 0.20-1.00 [facility] Comment on above: Result Comment: For patients on eltrombopag therapy, use of Dimension [place] TBIL is not recommended. Performed By: #### L 501.2300, L500.2500, L501.5200, L100.0100 #### [facility] [address] [place], [address] BUN/CRE 33.5 RATIO High 10-20 [facility] Comment on above: Performed By: #### L 501.2300, L500.2500, L501.5200, L100.0100 #### [facility] [address] [place], [address] CA,Total 8.5 mg/dL Normal 8.5-10.1 [facility] Comment on above: Performed By: #### L 501.2300, L500.2500, L501.5200, L100.0100 #### [facility] [address] [place], [address] Chloride [Moles/Vol] 106 mmol/L Normal 98-107 [facility] Comment on above: Performed By: #### L 501.2300, L500.2500, L501.5200, L100.0100 #### [facility] [address] [place], [address] CO2 [Moles/Vol] 27.0 mmol/L Normal 21.0-32.0 [facility] Comment on above: Performed By: #### L 501.2300, L500.2500, L501.5200, L100.0100 #### [facility] [address] [place], [address] Creatinine [Mass/Vol] 0.48 mg/dL Low 0.55-1.02 [facility] Comment on above: Result Comment: The validity of the calculated GFR GFRAA in patients over 70 years has not been determined. Clinical correlation is essential. Performed By: #### L 501.2300, L500.2500, L501.5200, L100.0100 #### [facility] [address] [place], [address] ECRCL 76.35 ml/min Normal [facility] Comment on above: Performed By: #### L 501.2300, L500.2500, L501.5200, L100.0100 #### [facility] [address] [place], [address] EST GFR - AA 167 mL/min Normal >60 [facility] Comment on above: Result Comment: Afri can [place] GFR Calc Performed By: #### L 501.2300, L500.2500, L501.5200, L100.0100 #### [facility] [address] [place], [address] GAP 6 Normal 5-15 [facility] Comment on above: Performed By: #### L 501.2300, L500.2500, L501.5200, L100.0100 #### [facility] [address] [place], [address] GFR/1.73 sq M.predicted among non-blacks MDRD (S/P/Bld) [Vol rate/Area] 138 mL/min/{1.73_m2} Normal >60 [facility] Comment on above: Result Comment: Non- GFR Calc Performed By: #### L 501.2300, L500.2500, L501.5200, L100.0100 #### [facility] [address] [place], [address] Globulin (S) [Mass/Vol] 3.5 g/dL Normal 2.2-4.2 [facility] Comment on above: Performed By: #### L 501.2300, L500.2500, L501.5200, L100.0100 #### [facility] [address] [place], [address] Glucose [Mass/Vol] 164 mg/dL High 74-106 [facility] Comment on above: Result Comment: Fast ing Glucose result greater than or equal to 126 mg/dL suggests DIABETES MELLITUS per A.D.A. criteria. Performed By: #### L 501.2300, L500.2500, L501.5200, L100.0100 #### [facility] [address] [place], [address] Potassium [Moles/Vol] 3.8 mmol/L Normal 3.5-5.1 [facility] Comment on above: Performed By: #### L 501.2300, L500.2500, L501.5200, L100.0100 #### [facility] [address] [place], [address] Sodium [Moles/Vol] 139 mmol/L Normal 136-145 [facility] Comment on above: Performed By: #### L 501.2300, L500.2500, L501.5200, L100.0100 #### [facility] [address] [place], [address] T PROT 5.9 g/dL Low 6.4-8.2 [facility] Comment on above: Performed By: #### L 501.2300, L500.2500, L501.5200, L100.0100 #### [facility] [address] [place], [address] Urea nitrogen [Mass/Vol] 16 mg/dL Normal 7-18 [facility] Comment on above: Performed By: #### L 501.2300, L500.2500, L501.5200, L100.0100 #### [facility] [address] [place], [address] Gram Stainon 09-27-2024 GS Acceptable Specimen? Yes (<25 Epithelial cells per/lpf) Gram Stain 3+ White Blood Cells 1+ Gram positive cocci in clusters 2+ Gram negative cocco bacillus [facility] Comment on above: Performed By: #### L 503.6030, L501.9520, L500.4050, L503.6550, L100.0100, L506.1001 #### [facility] [address] [place], [address] Laboratory - Chemistry and C hemistry - challengeOrdered By: Esperanza Myers on 09-27-2024 AST [Catalytic activity/Vol] 12 U/L Low 15-37 [facility] Legionella Antigen Urineon 0 09-27-2024 LEGU URINE, CLEAN CATCH Legionella Antigen result interpretation: L pneumo Ag Ur Ql Negative Presumptive negative for Legionella pneumophila serogroup 1 antigen in urine, suggesting no recent or current infection. Legionella Ag, Urine Negative (See interpretation below) [facility] Comment on above: Performed By: #### L 501.2300, L500.2500, L501.5200, L100.0100 #### [facility] [address] [place], [place], [address] RESPIRATORY PANEL MOLECULARo n 09-27-2024 RP PANEL Normal Reference Range = Not Detected Nucleic acid amplification test method ADENOVIRUS Not Detected INFLUENZA A Not Detected INFLUENZA A (SUBTYPE H1) Not Detected INFLUENZA A (SUBTYPE H3) Not Detected INFLUENZA B Not Detected HUMAN METAPHNEUMO Not Detected PARAINFLUENZA 1 Not Detected PARAINFLUENZA 2 Not Detected PARAINFLUENZA 3 Not Detected PARAINFLUENZA 4 Not Detected RHINOVIRUS Not Detected RSV A Not Detected RSV B Not Detected Normal [facility] Comment on above: Performed By: #### L 503.6030, L501.9520, L500.4050, L503.6550, L100.0100, L506.1001 #### [facility] [address] [place], [place], [address] Serum globulin measurementOr dered By: Esperanza Lucia on 09-27-2024 Globulin (S) [Mass/Vol] 3.5 g/dL 2.2-4.2 [facility] Serum or plasma alanine joshi otransferase (ALT) measurementOrdered By: Esperanza Lucia on 09-27-2024 ALT [Catalytic activity/Vol] 14 U/L 13-56 [facility] Serum or plasma albumin kamlesh urement (mass/volume)Ordered By: Esperanza Lucia on 09-27-2024 Albumin [Mass/Vol] 2.4 g/dL Low 3.2-5.0 [facility] Serum or plasma alkaline mena sphatase measurementOrdered By: [facility] on 09-27-2024 ALP [Catalytic activity/Vol] 65 U/L 45-117 [facility] Strep pneumoniae Antig(UR,CS F)on 09-27-2024 STPAG URINE INTERPRETATION Strep pneumoniae Antig(UR,CSF) Negative Urine Presumptive negative for pneumococcal pneumonia, suggesting no current or recent pneumococcal infection. Infection due to S pneumoniae cannot be ruled out since the antigen present in the sample may be below the detection limit of the test. Strep pneumo Test Negative URINE (See interpretation below) Normal [facility] Comment on above: Performed By: #### L 501.2300, L500.2500, L501.5200, L100.0100 #### [facility] [address] [place], [address] Total proteinOrdered By: Jeimy Myers on 09-27-2024 Protein [Mass/Vol] 5.9 g/dL Low 6.4-8.2 [facility] Urine Legionella pneumophila antigen detectionOrdered By: Esperanza Myers on 09-27-2024 L. pneumophila Ag Ql (U) [facility] 12 Lead EKGon 09-26-2024 12 Lead EKG [facility] [address] [place] [address] 12 Lead EKG 09/26/24 1625 MR#: [id number] Acct: [id number] Name: ANGELES LARIOS Rep #: [id number] : 1960 64 From: Efrain Samuel MD Attending Dr: Dr. Scott Mcneal MD Status: ADM IN Ordering Dr: Joaquín Patel Date: 09/26/24 Location: PA3 Sex: F C Admitted: 09/26/24 Test Reason : SOB Blood Pressure : */* mmHG Vent. Rate : 87 BPM Atrial Rate : 87 BPM P-R Int : 134 ms QRS Dur : 136 ms QT Int : 436 ms P-R-T Axes : 72 -46 30 degrees QTcB Int : 524 ms Normal sinus rhythm Left axis deviation Right bundle branch block Abnormal ECG Confirmed by LAUREN FAROOQ, EFRAIN ([id number]), web content editor ELVIRA RODRÍGUEZ ([id number]) on 09/27/2024 8:55:15 AM Referred By: Esperanza Myers Confirmed By: EFRAIN SAMUEL MD 09/27/24 0855 Date Efrain Samuel MD CC: MARIAN Patel; Dr. Esperanza Myers MD; Dr. Scott Mcneal MD; Dr. Martin Gutierrez MD Signed Normal [facility] Basic Metabolic Profile (BMP )on 09-26-2024 BUN/CRE 26.1 RATIO High 10-20 [facility] Comment on above: Performed By: #### L 503.6030, L501.9520, L500.4050, L503.6550, L100.0100, L506.1001 #### [facility] [address] [place], [address] CA,Total 8.9 mg/dL Normal 8.5-10.1 [facility] Comment on above: Performed By: #### L 503.6030, L501.9520, L500.4050, L503.6550, L100.0100, L506.1001 #### [facility] [address] [place], [address] Chloride [Moles/Vol] 99 mmol/L Normal 98-107 [facility] Comment on above: Performed By: #### L 503.6030, L501.9520, L500.4050, L503.6550, L100.0100, L506.1001 #### [facility] [address] [place], [address] CO2 [Moles/Vol] 28.0 mmol/L Normal 21.0-32.0 [facility] Comment on above: Performed By: #### L 503.6030, L501.9520, L500.4050, L503.6550, L100.0100, L506.1001 #### [facility] [address] [place], [address] Creatinine [Mass/Vol] 0.69 mg/dL Normal 0.55-1.02 [facility] Comment on above: Result Comment: The validity of the calculated GFR GFRAA in patients over 70 years has not been determined. Clinical correlation is essential. Performed By: #### L 503.6030, L501.9520, L500.4050, L503.6550, L100.0100, L506.1001 #### [facility] [address] [place], [address] ECRCL 76.53 ml/min Normal [facility] Comment on above: Performed By: #### L 503.6030, L501.9520, L500.4050, L503.6550, L100.0100, L506.1001 #### [facility] [address] [place], [address] EST GFR - AA 109 mL/min Normal >60 [facility] Comment on above: Result Comment: Afri can [place] GFR Calc Performed By: #### L 503.6030, L501.9520, L500.4050, L503.6550, L100.0100, L506.1001 #### [facility] [address] [place], [address] GAP 8 Normal 5-15 [facility] Comment on above: Performed By: #### L 503.6030, L501.9520, L500.4050, L503.6550, L100.0100, L506.1001 #### [facility] [address] [place], [address] GFR/1.73 sq M.predicted among non-blacks MDRD (S/P/Bld) [Vol rate/Area] 90 mL/min/{1.73_m2} Normal >60 [facility] Comment on above: Result Comment: Non- GFR Calc Performed By: #### L 503.6030, L501.9520, L500.4050, L503.6550, L100.0100, L506.1001 #### [facility] [address] [place], [address] Glucose [Mass/Vol] 125 mg/dL High 74-106 [facility] Comment on above: Result Comment: Fast ing Glucose result from 100 to 125 mg/dL suggests IMPAIRED HOMEOSTASIS per A.D.A. criteria. Performed By: #### L 503.6030, L501.9520, L500.4050, L503.6550, L100.0100, L506.1001 #### [facility] [address] [place], [address] Potassium [Moles/Vol] 3.4 mmol/L Low 3.5-5.1 [facility] Comment on above: Result Comment: Slig ht Hemolysis, Result may be falsely increased. Performed By: #### L 503.6030, L501.9520, L500.4050, L503.6550, L100.0100, L506.1001 #### [facility] [address] [place], [address] Sodium [Moles/Vol] 135 mmol/L Low 136-145 [facility] Comment on above: Performed By: #### L 503.6030, L501.9520, L500.4050, L503.6550, L100.0100, L506.1001 #### [facility] [address] [place], [address] Urea nitrogen [Mass/Vol] 18 mg/dL Normal 7-18 [facility] Comment on above: Performed By: #### L 503.6030, L501.9520, L500.4050, L503.6550, L100.0100, L506.1001 #### [facility] [address] [place], [address] Bedside Glucoseon 09-26-2024 FINGERSTICK GLU 129 mg/dL High 74-106 [facility] Comment on above: Result Comment: SEAN CLARK OF PATIENT CARE PER NURSING PROTOCOL Performed By: #### L 503.6030, L501.9520, L500.4050, L503.6550, L100.0100, L506.1001 #### [facility] [address] [place], [address] Blood cultureOrdered By: Dee Dee Patel on 09-26-2024 Bacteria identified Cx Nom (Bld) No growth in 5 days. [facility] CBC W/Diff, Automatedon Absolute Lymph 0.91 X10 3/uL Normal 0.83-4.51 [facility] Comment on above: Performed By: #### L 503.6030, L501.9520, L500.4050, L503.6550, L100.0100, L506.1001 #### [facility] [address] [place], [address] Absolute Neut 3.6 X10 3/uL Normal 2.0-7.7 [facility] Comment on above: Performed By: #### L 503.6030, L501.9520, L500.4050, L503.6550, L100.0100, L506.1001 #### [facility] [address] [place], [address] Basophils/100 WBC (Bld) 0.2 % Normal 0-1 [facility] Comment on above: Performed By: #### L 503.6030, L501.9520, L500.4050, L503.6550, L100.0100, L506.1001 #### [facility] [address] [place], [address] Eosinophils/100 WBC (Bld) 0.0 % Normal 0-5 [facility] Comment on above: Performed By: #### L 503.6030, L501.9520, L500.4050, L503.6550, L100.0100, L506.1001 #### [facility] [address] [place], [address] Erythrocyte distribution width (RBC) [Ratio] 12.1 % Normal 11.6-14.6 [facility] Comment on above: Performed By: #### L 503.6030, L501.9520, L500.4050, L503.6550, L100.0100, L506.1001 #### [facility] [address] [place], [address] Hematocrit (Bld) [Volume fraction] 39.0 % Normal 37-47 [facility] Comment on above: Performed By: #### L 503.6030, L501.9520, L500.4050, L503.6550, L100.0100, L506.1001 #### [facility] [address] [place], [address] Hemoglobin (Bld) [Mass/Vol] 13.0 g/dL Normal 12.0-15.0 [facility] Comment on above: Performed By: #### L 503.6030, L501.9520, L500.4050, L503.6550, L100.0100, L506.1001 #### [facility] [address] [place], [address] IG% 0.800 Normal 0.0-0.9 [facility] Comment on above: Result Comment: IG% - Immature Granulocytes (promyelocytes, myelocytes and metamyelocytes) > 1% indicates that a LEFT SHIFT is Present. Performed By: #### L 503.6030, L501.9520, L500.4050, L503.6550, L100.0100, L506.1001 #### [facility] [address] [place], [address] Lymphocytes/100 WBC (Bld) 17.4 % Low 19-41 [facility] Comment on above: Performed By: #### L 503.6030, L501.9520, L500.4050, L503.6550, L100.0100, L506.1001 #### [facility] [address] [place], [address] MCH (RBC) [Entitic mass] 34.8 pg High 27.0-32.0 [facility] Comment on above: Performed By: #### L 503.6030, L501.9520, L500.4050, L503.6550, L100.0100, L506.1001 #### [facility] [address] [place], [address] MCHC (RBC) [Mass/Vol] 33.3 g/dL Normal 32-36 [facility] Comment on above: Performed By: #### L 503.6030, L501.9520, L500.4050, L503.6550, L100.0100, L506.1001 #### [facility] [address] [place], [address] MCV (RBC) [Entitic vol] 104.3 fL High 81-99 [facility] Comment on above: Performed By: #### L 503.6030, L501.9520, L500.4050, L503.6550, L100.0100, L506.1001 #### [facility] [address] [place], [address] Monocytes/100 WBC (Bld) 13.2 % High 0-10 [facility] Comment on above: Performed By: #### L 503.6030, L501.9520, L500.4050, L503.6550, L100.0100, L506.1001 #### [facility] [address] [place], [address] Neutrophils/100 WBC (Bld) 68.4 % Normal 47-70 [facility] Comment on above: Performed By: #### L 503.6030, L501.9520, L500.4050, L503.6550, L100.0100, L506.1001 #### [facility] [address] [place], [address] Nucleated RBC (Bld) [#/Vol] 0 10*3/uL Normal 0-5 [facility] Comment on above: Performed By: #### L 503.6030, L501.9520, L500.4050, L503.6550, L100.0100, L506.1001 #### [facility] [address] [place], [address] Platelet mean volume (Bld) [Entitic vol] 10.3 fL Normal 6.2-12.0 [facility] Comment on above: Performed By: #### L 503.6030, L501.9520, L500.4050, L503.6550, L100.0100, L506.1001 #### [facility] [address] [place], [address] Platelets (Bld) [#/Vol] 209 10*3/uL Normal 150-450 [facility] Comment on above: Performed By: #### L 503.6030, L501.9520, L500.4050, L503.6550, L100.0100, L506.1001 #### [facility] [address] [place], [address] RBC (Bld) [#/Vol] 3.74 10*6/uL Low 4.2-5.4 [facility] Comment on above: Performed By: #### L 503.6030, L501.9520, L500.4050, L503.6550, L100.0100, L506.1001 #### [facility] [address] [place], [address] RDW SD 46.0 fl High 35.1-43.9 [facility] Comment on above: Performed By: #### L 503.6030, L501.9520, L500.4050, L503.6550, L100.0100, L506.1001 #### [facility] [address] [place], [address] WBC (Bld) [#/Vol] 5.2 10*3/uL Normal 4.4-11.0 [facility] Comment on above: Performed By: #### L 503.6030, L501.9520, L500.4050, L503.6550, L100.0100, L506.1001 #### [facility] [address] [place], [address] Chest PA and Lateralon 09-26 Chest PA and Lateral [facility] Imaging Services [address] [place] [address] Chest PA and Lateral MR#: [id number] Acct: [id number] Name: ANGELES LARIOS Rep #: [id number] : 1960 F 64 From: Stephen Veláqsuez MD PCP: Dr. Martin Gutierrez MD Status: [facility] ER Study: Chest PA and Lateral Date of Exam: 09/26/24 Exam# [id number] Ordering Dr: Joaquín Patel AUTOMOTIVE MECHANICAL ENGINEER-C PROCEDURE: CHEST PA AND LATERAL REASON FOR EXAM: Cough. TECHNIQUE: Frontal and lateral projections of the chest including upper abdomen. COMPARISON: None.. FINDINGS: Lungs are clear of pneumonia and congestion. Prominent interstitial markings in the lung bases. No pleural effusions, thickening, or pneumothorax. Heart and mediastinum are normal. Atherosclerotic aorta. No hilar masses. Bones and soft tissues are unremarkable. Cardiac monitoring leads overlie the chest wall. RAD/Chest PA and Lateral IMPRESSION: Prominent interstitial markings in the lower lungs. Can not exclude developing inflammatory process. Reading Location: [facility] CC: AUTOMOTIVE MECHANICAL ENGINEER-Andry Patel; Dr. Martin Gutierrez MD [employer]: Signed Normal [facility] Emergency Department Summary on 09-26-2024 Emergency Department Summary [facility] Medical Records Department [address] [place] [address] Emergency Department Summary 09/26/24 MR#: [id number] Acct: [id number] Name: ANGELES LARIOS Rep #: [id number] : 1960 64 From: Rafita Ruiz DO PCP: Dr. Martin Gutierrez MD Status:ADM IN Location: [facility] [id number] Patient was seen and examined with nurse practitioner Joaquín All components of the history and physical confirmed and agreed. History of present illness and physical exam: Patient is a 64-year-old female with a past medical history of tobacco use, hypothyroidism, DVT, hypertension, CVA, fibromyalgia who presents to the emergency department with chief complaint of cough and shortness of breath. States that she has been sick for approximately a week but knows that over the last 2 to 3 days that she has had decreased appetite and has been getting worse therefore they brought her here for the valuation management. Review of systems: Agree with above Physical exam: Agree with above MDM Patient is a 64-year-old female who presented to the emerged part with a chief complaint of cough and shortness of breath. On the differential diagnose includes but not limited to COPD exacerbation, pneumonia, upper respiratory infection secondary viral etiology. Patient CBC reviewed showed a white blood count of 5.2, hemoglobin 13, platelet count was noted be 209. Patient sodium was 135, potassium was mildly low at 3.4, creatinine normal at 0.69. Patient's lactic acid normal at 1.6. Patient chest x-ray reviewed by myself and by radiology and showed prominence of markings in the lower lung shirley. Patient test positive for influenza A. Given the patient is requiring oxygen when she is not at baseline she will require admission therefore case was discussed with hospitalist Dr. Myers who accept patient for admission. Patient was notified is agreeable this plan as well as family over the bedside all question concerns answered. Final impression: Influenza A Acute hypoxic respiratory failure Tobacco use Disposition: Patient will be admitted to the hospital further evaluation management Supervising attending attestation: Rafita MONGE History of Present Illness Chief Complaint: Weakness Narrative Narrative: Patient is a 64-year-old female with history of hypertension hyperlipidemia, hypothyroidism, on chronic iron supplements presenting to the emergency department for 1 week of cough, shortness of breath. Over the last 2 to 3 days, the family is noticed change in the patient's appetite, the patient not eating and drinking, the patient is not getting up. The patient is having more rhonchorous breath sounds and they are here for evaluation. Patient does normally smoke half a pack a day. Denies any nausea or vomiting. Patient states that she just feels tired and is sleeping all the time. [facility] Medical History (Updated 09/26/24 @ 18:47 by MARIAN Bill) Tobacco use disorder, continuous Iron deficiency anemia due to chronic blood loss History of stress test Depression Hypothyroidism GERD (gastroesophageal reflux disease) Smoker Coronary artery disease Hypertension DVT (deep venous thrombosis) TIA (transient ischemic attack) Anemia Macrocytosis Nicotine dependence Chronic GI bleeding Peripheral vascular disease Non-rheumatic aortic stenosis Dysarthria Atherosclerosis of coronary artery of [place] heart without angina pectoris Essential (primary) hypertension Encounter for screening for lung cancer Bilateral carotid artery stenosis Pernicious anemia Sleep apnea IBS (irritable bowel syndrome) History of DVT (deep vein thrombosis) Diarrhea Nausea vomiting LEFT ARM SURGERY BLOOD CLOT Gastrointestinal bleed CVA (cerebral vascular accident) Hyperlipidemia Fibromyalgia Expressive language disorder Dysarthria Home Medications ???Medication ???Instructions ???Recorded ???Last Taken ???Type nitroglycerin 0.4 mg sublingual 0.4 mg sublingual Q5-15M PRN chest 10/14/17 2 Months Ago Rx tablet pain #25 tabs 10/03/17 levothyroxine 25 mcg tablet 25 mcg PO DAILY thyroid 11/30/17 0 03/08/21 History rosuvastatin 40 mg tablet 40 mg PO QDAY Check with primary 0 04/09/18 Unknown History doctor acetaminophen 500 mg tablet 1,000 mg PO Q6H PRN Headache 03/09 Unknown History (Tylenol Extra Strength) aspirin 81 mg tablet,delayed 81 mg PO DAILY 07/26/21 Unknown Hi story release (Adult Low Dose Aspirin) famotidine 40 mg tablet 40 mg PO DAILY 07/26/21 Unknown Hi story ferrous sulfate 325 mg (65 mg 650 mg PO BID 04/15/23 Unknown His tory iron) tablet duloxetine 60 mg capsule,delayed 60 mg PO BID 09/30/23 Unknown Hist ory release (Cymbalta) baclofen 10 mg tablet 10 mg PO DAILY 09/26/24 Unknown Hi story gabapentin 100 mg capsule 100 mg (more content not included)... Normal [facility] Glucose measurement at [facility] deOrdered By: Rafita Ruiz on 09-26-2024 Glucose [Mass/Vol] 129 mg/dL High 74-106 [facility] Comment on above: MANAGEMENT OF PATIEN T CARE PER NURSING PROTOCOL Gram stainOrdered By: Esperanza Myers on 09-26-2024 Microscopic observation Gram stain Nom (Unsp spec) [facility] H AND P Exam - Hospital[place] 09-26-2024 H&P Exam - Hospitalist [facility] Medical Records Department [address] [place] [address] H P Exam - Hospitalist 09/26/241921 MR#: [id number] Acct: [id number] Name: ANGELES LARIOS Rep #: [id number] : 1960 64 From: Esperanza Myers MD PCP: Dr. Martin Gutierrez MD Status:ADM IN Location: [facility] QD111-3 HPI - General General Date of Admission: 09/26/24 Date of Service: 09/26/24 Chief Complaint: Dyspnea, cough, fatigue, malaise. HPI Narrative The patient is a 64-year-old female with past medical history of CKD stage II per GFR trending, chronic anemia/iron deficiency anemia, anxiety and depression, hypothyroidism, GERD, tobacco use, history of VTE (DVT), CAD status post PCI, carotid disease status post left CEA, PAD status post arterial embolism and thrombosis lower extremity intervention, history of TIA, PVD, history CVA with chronic dysarthria, hypertension, hyperlipidemia, PATRICA not using PAP therapy, IBS, carotid disease who presents to the [facility] ED on 09/26/2024 with progressively worsening fatigue, malaise, headache, congestion, body aches, decreased appetite, chills without fever, cough and dyspnea worsening over the last week but more severe over the last 2 to 3 days with decreased appetite and poor oral intake as far as liquids with decreased ambulation attempts prompting family to bring patient in for evaluation. She states that her grandson lives with her and her and he recently was ill and had influenza. Thus far her has remained well. Workup in the ED T98.5, heart rate 93, BP 120/83, respiratory rate 22, initially 83% on room air with most recent repeat vitals T98.5, heart rate 82, BP 120/61, respiratory rate 16, 93% on 5 L nasal cannula, CBC with WBC 5.2, hgb 13, platelet 209 without marked shift, BMP with sodium 135, potassium 3.4 noted to be slightly hemolyzed this may be falsely increased, glucose 125, BUN/creatinine 18/0.69, GFR 90, glucose 125, lactic acid 1.6, chest x-ray with prominent initial markings in both lung concerning for inflammatory process developing, rapid SARS COVID/influenza/RSV PCR with positive influenza A. In the ED patient ministered 1 L normal saline, Tylenol 1000 mg p.o. x 1, DuoNeb and albuterol therapies as well as Solu-Medrol 60 mg IV x 1. [facility] History Tobacco use disorder, continuous Iron deficiency anemia due to chronic blood loss History of stress test Depression Hypothyroidism GERD (gastroesophageal reflux disease) Smoker Coronary artery disease Hypertension DVT (deep venous thrombosis) TIA (transient ischemic attack) Anemia Macrocytosis Nicotine dependence Chronic GI bleeding Peripheral vascular disease Non-rheumatic aortic stenosis Dysarthria Atherosclerosis of coronary artery of [place] heart without angina pectoris Essential (primary) hypertension Encounter for screening for lung cancer Bilateral carotid artery stenosis Pernicious anemia Sleep apnea IBS (irritable bowel syndrome) History of DVT (deep vein thrombosis) Diarrhea Nausea vomiting LEFT ARM SURGERY BLOOD CLOT Gastrointestinal bleed CVA (cerebral vascular accident) Hyperlipidemia Fibromyalgia Expressive language disorder Dysarthria Home Medications ???Medication ???Instructions ???Recorded ???Last Taken ???Type nitroglycerin 0.4 mg sublingual 0.4 mg sublingual Q5-15M PRN chest 10/14/17 2 Months Ago Rx tablet pain #25 tabs 10/03/17 levothyroxine 25 mcg tablet 25 mcg PO DAILY thyroid 11/30/17 0 03/08/21 History rosuvastatin 40 mg tablet 40 mg PO QDAY Check with primary 0 04/09/18 Unknown History doctor acetaminophen 500 mg tablet 1,000 mg PO Q6H PRN Headache 03/09 Unknown History (Tylenol Extra Strength) aspirin 81 mg tablet,delayed 81 mg PO DAILY 07/26/21 Unknown Hi story release (Adult Low Dose Aspirin) famotidine 40 mg tablet 40 mg PO DAILY 07/26/21 Unknown Hi story ferrous sulfate 325 mg (65 mg 650 mg PO BID 04/15/23 Unknown His tory iron) tablet duloxetine 60 mg capsule,delayed 60 mg PO BID 09/30/23 Unknown Hist ory release (Cymbalta) baclofen 10 mg tablet 10 mg PO DAILY 09/26/24 Unknown Hi story gabapentin 100 mg capsule 100 mg PO DAILY 09/26/24 Unknown H istory vitamins A,C,N-cazm-flbbfg 4,296 1 cap PO DAILY 09/26/24 Unknown Hi story mcg-226 mg-90 mg capsule (PreserVision AREDS) Allergy/AdvReac Type Severity Reaction Status Date / Time atorvastatin (From Lipitor) AdvReac Severe Other Verified 09/26/24 16:04 codeine AdvReac Severe Other Verified 09/26/24 16:04 Family History Father , at age 38, from [place] Myocardial infarction cardiomopathy Mother Atrial fibrillation Hypertension Hyperlipidemia Diabetes Brother CAD (coronary artery (more content not included)... Normal [facility] Influenza virus A and B and SARS-CoV-2 (COVID-19) and Respiratory syncytial virus RNAOrdered By: Joaquín Patel on 09-26-2024 SARS-CoV-2 (COVID-19) RNA RENATE+probe Ql (Unsp spec) Influenzae A Abnormal [facility] Lactic Acidon 09-26-2024 Lactate [Moles/Vol] 1.6 mmol/L Normal 0.4-1.9 [facility] Comment on above: Order Comment: Y Performed By: #### L 501.2300, L500.2500, L501.5200, L100.0100 #### [facility] [address] [place] [address], [address] Lactic acid measurementOrder ed By: Joaquín Patel on 09-26-2024 Lactate [Moles/Vol] 1.6 mmol/L 0.4-2.0 [facility] M100.678on 09-26-2024 SARS-CoV-2 (COVID-19) Ab IA Ql Normal Reference Range = Negative FLUABV+SARS-CoV-2+RSV Pnl Resp RENATE+probe GeneXpert Instrument, PCR method FLUABV+SARS-CoV-2+RSV Pnl Resp RENATE+probe Copy of report sent to Infection Control Printer [id number] 09/26/24 [facility] RESULTS CALLED TO STEVENSON LEVIN 09/26/24 1738 Edith Vergara. REPORT READ BACK BY SAME. SARS-CoV-2 (COVID 19) Negative INFLUENZA A A Positive A INFLUENZA B Negative RSV PCR Negative INFLUENZAE A Normal [facility] Comment on above: Performed By: #### L 503.6030, L501.9520, L500.4050, L503.6550, L100.0100, L506.1001 #### [facility] [address] [place], [address] Magnesiumon 09-26-2024 Magnesium [Mass/Vol] 2.3 mg/dL Normal 1.6-2.6 [facility] Comment on above: Order Comment: Comme nts: may add to ED labs Result Comment: Mode rate Hemolysis, Result may be falsely increased. Performed By: #### L 501.2300, L500.2500, L501.5200, L100.0100 #### [facility] [address] [place], [address] Microbial respiratory cultur eOrdered By: Esperanza Myers on 09-26-2024 Microorganism identified Cx Nom (Unsp spec) Haemophilus influenzae Abnormal [facility] Procalcitoninon 09-26-2024 Procalcitonin 0.14 ng/mL High 0.00-0.09 [facility] Comment on above: Result Comment: A procalcitonin (PCT) level above 2.0 ng/mL on the first day of ICU admission is associated with a high risk for progression to severe sepsis and/or septic shock. A PCT level below 0.5 ng/mL on the first day of ICU admission is associated with a low risk for progression to severe and/or septic shock. Note: Concentrations <0.5 ng/mL do not exclude an infection on account of localized infections (without systemic signs) which can be associated with such low concentrations, or a systemic infection in its initial stages (<6 hours). Furthermore, increased procalcitonin can occur without infection. PCT concentrations between 0.5 and 2.0 ng/mL should be interpreted taking into account the patient's history. It is recommended to retest PCT within 6-24 hours if any concentrations <2 ng/mL are obtained. Performed By: #### L 501.2300, L500.2500, L501.5200, L100.0100 #### [facility] [address] [facility] [place], [place], [address] Respiratory pathogens detect ion panel by molecular detection methodOrdered By: Esperanza Myers on 09-26-2024 Respiratory pathogens DNA and RNA panel RENATE+probe (Resp) [facility] Serum procalcitonin measurem entOrdered By: Esperanza Myers on 09-26-2024 Procalcitonin [Mass/Vol] 0.14 ng/mL High 0.00-0.09 [facility] Comment on above: A procalcitonin (PCT ) level above 2.0 ng/mL on the first day of ICU admission is associated with a high risk for progression to severe sepsis and/or septic shock. A PCT level below 0.5 ng/mL on the first day of ICU admission is associated with a low risk for progression to severe and/or septic shock. Note: Concentrations <0.5 ng/mL do not exclude an infection on account of localized infections (without systemic signs) which can be associated with such low concentrations, or a systemic infection in its initial stages (<6 hours). Furthermore, increased procalcitonin can occur without infection. PCT concentrations between 0.5 and 2.0 ng/mL should be interpreted taking into account the patient's history. It is recommended to retest PCT within 6-24 hours if any concentrations <2 ng/mL are obtained. Low Dose CT Lung Screeningon 07-26-[address] Lung Screening [facility] Imaging Services [address] [place], [place] [address] Low Dose CT Lung Screening MR#: [id number] Acct: [id number] Name: ANGELES LARIOS Rep #: [id number] : 1960 F 64 From: Gamaliel ridley MD PCP: Dr. Martin Gutierrez MD Status: [facility] Study: Low Dose CT Lung Screening Date of Exam: 07/26 Exam# [id number] Ordering Dr: Margi Christian NP AUTOMOTIVE MECHANICAL ENGINEER -C [id number] STUDY: LOW DOSE CT LUNG CANCER SCREENING REASON FOR EXAM: Female, 64 years old. Lung cancer screening -- 24 pk yr hx;current smoker;asymptomatic RADIATION DOSAGE (If Supplied By Facility): CTDIvol = ( 3.02 ) mGy, DLP = ( 104.58 ) mGycm TECHNIQUE: No contrast was administered. Low dose technique was utilized (average mAS-38 and kVp 120). 1.25 mm axial source images with a slice interval of 1.25-mm were reconstructed in lung windows. 2.5 mm axial source images with a slice interval of 2.5-mm were reconstructed in lung windows. 5.0 mm axial source images with a slice interval of 5.0-mm were reconstructed in soft tissue windows. COMPARISON: Comparison is made with prior study dated March 20, 2021. NODULES: Since prior study, there has been a slight increase in size of the partially calcified nodule in the peripheral aspect of the left upper lobe as seen on axial image #84 and coronal image #101. This most likely represents a calcified granuloma. Emphysema: Hyperinflation. Stable mild degree of emphysematous changes. Endobronchial lesion: None Aorta: Atherosclerotic plaque formation of the aortic arch. CORONARY ARTERIES: Coronary artery calcification is seen. Heart: Unremarkable Pulmonary artery: Remarkable Mediastinal nodes: Small mediastinal lymph nodes. Other chest and abdominal findings: CT/Low Dose CT Lung Screening IMPRESSION: Lung-RADS category 2 - Continue annual screening with LDCT in 12 months. IMPORTANT NOTES FOR USE: ACR Lung-RADS Version 1.1 Assessment Categories Release Date: 2018 Category: Coded 0-4 bases on nodule(s) with [...] S (significant finding unrelated to lung cancer) Electronically Signed: Gamaliel Serrano MD at 13:24 EST , CC: MARIAN Christian; Dr. Martin Gutierrez MD [employer]cker: Signed Normal [facility] Oncology Visit Reporton Oncology Visit Report [facility] [address] [place] [address] OFFICE VISIT Date of Service: 07/26/24 1212 MR#: [id number] Acct: [id number] Name: ANGELES LARIOS Rep #: [id number] : 1960 From: Margi Rebolledo Age/Sex: 64/F Location[facility] Status: Signed HPI HPI Reviewed eligibility criteria: 64 year old F with a 24 pack year smoking history (1/2 ppd x 48 years) Smoking Status: Current every day smoker Decision Making Engaged in shared decision making visit utilizing a visual aid. Discussed the risks and benefits of lung cancer screening including the total radiation exposure, false positive rate, over diagnosis and potential need for follow-up diagnostic testing all associated with low-dose chest CT. Comorbidities Sleep apnea, hyperlipidemia, ROS Const Denies anorexia, Denies fatigue, Denies headache(s), Denies poor appetite and Denies weight loss ENT Denies headache(s) Card Denies chest pain, Reports dyspnea on exertion (rarely, ) and Denies palpitations Resp Denies cough, Reports dyspnea on exertion (rarely, ), Denies hemoptysis and Denies wheezing GI Reports system reviewed and no additional complaints, except as documented Musc Reports system reviewed and no additional complaints, except as documented Skin/Breast Reports system reviewed and no additional complaints, except as documented Neuro Yes system reviewed and no additional complaints, except as documented and No headache(s) Psych Reports system reviewed and no additional complaints, except as documented Endo Reports system reviewed and no additional complaints, except as documented, Denies fatigue and Denies palpitations Amaury/Lymph Reports system reviewed and no additional complaints, except as documented Aller/Immun Denies wheezing Exam Const General: not in acute distress Orientation: alert and oriented x3 HENMT Head: normocephalic and atraumatic Neck Neck: supple and no lymphadenopathy noted Resp Effort Inspection: normal respiratory effort and symmetric chest movement Auscultation: Bilateral: Clear to Auscultation Cardio Rate: regular rate Rhythm: regular rhythm Heart Sounds: S1 normal and S2 normal Psych Affect: normal affect Speech and Movement: speech and movement normal Results Results July 26, [address] Lung Screening COMPARISON: Comparison is made with prior study dated March 20, 2021. NODULES: Since prior study, there has been a slight increase in size of the partially calcified nodule in the peripheral aspect of the left upper lobe as seen on axial image #84 and coronal image #101. This most likely represents a calcified granuloma. Emphysema: Hyperinflation. Stable mild degree of emphysematous changes. Endobronchial lesion: None Aorta: Atherosclerotic plaque formation of the aortic arch. CORONARY ARTERIES: Coronary artery calcification is seen. Heart: Unremarkable Pulmonary artery: Remarkable Mediastinal nodes: Small mediastinal lymph nodes. Other chest and abdominal findings: IMPRESSION: Lung-RADS category 2 - Continue annual screening with LDCT in 12 months. Intake Vital Signs 03/30/24 13:16 07/26/24 12:13 Height 5 ft 6 in 5 ft 6 in Weight: 188 lb 1 oz BMI 30.3 BP 131/70 H Blood Pressure Location Rt brachial Position Sitting Respiration 18 Pulse 73 Pulse Source Monitor Temp 98 F Temp Source Temporal Pulse Oximetry (%) 96 Oxygen Delivery Method room air Intake Visit Reasons: Lung Cancer Screening Is patient in pain?: No Allergies atorvastatin (From Lipitor) Adverse Reaction (Severe, Verified 07/26/24 12:14) Other codeine Adverse Reaction (Severe, Verified 07/26/24 12:14) Other Medications ???Medication ???Instructions ???Recorded ???Confirmed ???Type nitroglycerin 0.4 mg sublingual 0.4 mg sublingual Q5-15M PRN chest 10/14/17 07/26/24 Rx tablet pain #25 tabs levothyroxine 25 mcg tablet 25 mcg PO DAILY thyroid 11/30/17 07/26/24 History rosuvastatin 40 mg tablet 40 mg PO QDAY Check with primary 04/09/18 07/26/24 History doctor acetaminophen 500 mg tablet 1,000 mg PO Q6H PRN Headache 03/09/21 07/26/24 History (Tylenol Extra Strength) aspirin 81 mg tablet,delayed 81 mg PO DAILY 07/26/21 07/26/24 History release (Adult Low Dose Aspirin) famotidine 40 mg tablet 40 mg PO DAILY 07/26/21 07/26/24 History ferrous sulfate 325 mg (65 mg 650 mg PO BID 04/15/23 07/26/24 History iron) tablet duloxetine 60 mg capsule,delayed 90 mg PO BID 09/30/23 07/26/24 History release (Cymbalta) Have you fallen in the past year?: Yes [facility] Medical History (Updated 07/26/24 @ 14:58 by Margi Christian AUTOMOTIVE MECHANICAL ENGINEER, AUTOMOTIVE MECHANICAL ENGINEER-C) Tobacco use disorder, continuous Iron deficiency anemia due to chronic blood loss History of str (more content not included)... Normal [facility] Vitamin D,25 Hydroxyon 06-16 Vitamin D 25-OH 22.9 ng/mL Normal [facility] Comment on above: Result Comment: Shanti min D 25(OH) Status Range Deficiency <20 ng/mL (50nmol/L) Insufficiency 20 - 30 ng/mL (50 - 75 nmol/L) Sufficiency 30 - 100 ng/mL (75 - 250 nmol/L) Toxicity >100 ng/mL (>250 nmol/L) Performed By: #### L 501.2300, L500.2500, L501.5200, L100.0100 #### [facility] [address] [place], [address] CBC W/Diff, Automatedon 05-25 Absolute Lymph 1.18 X10 3/uL Normal 0.83-4.51 [facility] Comment on above: Performed By: #### L 501.2300, L500.2500, L501.5200, L100.0100 #### [facility] [address] [place], [address] Absolute Neut 4.6 X10 3/uL Normal 2.0-7.7 [facility] Comment on above: Performed By: #### L 501.2300, L500.2500, L501.5200, L100.0100 #### [facility] [address] [place], [address] Basophils/100 WBC (Bld) 0.5 % Normal 0-1 [facility] Comment on above: Performed By: #### L 501.2300, L500.2500, L501.5200, L100.0100 #### [facility] [address] [place], [address] Eosinophils/100 WBC (Bld) 1.2 % Normal 0-5 [facility] Comment on above: Performed By: #### L 501.2300, L500.2500, L501.5200, L100.0100 #### [facility] [address] [place], [address] Erythrocyte distribution width (RBC) [Ratio] 13.4 % Normal 11.6-14.6 [facility] Comment on above: Performed By: #### L 501.2300, L500.2500, L501.5200, L100.0100 #### [facility] [address] [place], [address] Hematocrit (Bld) [Volume fraction] 38.6 % Normal 37-47 [facility] Comment on above: Performed By: #### L 501.2300, L500.2500, L501.5200, L100.0100 #### [facility] [address] [place], [address] Hemoglobin (Bld) [Mass/Vol] 11.9 g/dL Low 12.0-15.0 [facility] Comment on above: Performed By: #### L 501.2300, L500.2500, L501.5200, L100.0100 #### [facility] [address] [place], [address] IG% 0.300 Normal 0.0-0.9 [facility] Comment on above: Result Comment: IG% - Immature Granulocytes (promyelocytes, myelocytes and metamyelocytes) > 1% indicates that a LEFT SHIFT is Present. Performed By: #### L 501.2300, L500.2500, L501.5200, L100.0100 #### [facility] [address] [place], [address] Lymphocytes/100 WBC (Bld) 17.9 % Low 19-41 [facility] Comment on above: Performed By: #### L 501.2300, L500.2500, L501.5200, L100.0100 #### [facility] [address] [place], [address] MCH (RBC) [Entitic mass] 34.3 pg High 27.0-32.0 [facility] Comment on above: Performed By: #### L 501.2300, L500.2500, L501.5200, L100.0100 #### [facility] [address] [place], [address] MCHC (RBC) [Mass/Vol] 30.8 g/dL Low 32-36 [facility] Comment on above: Performed By: #### L 501.2300, L500.2500, L501.5200, L100.0100 #### [facility] [address] [place], [address] MCV (RBC) [Entitic vol] 111.2 fL High 81-99 [facility] Comment on above: Performed By: #### L 501.2300, L500.2500, L501.5200, L100.0100 #### [facility] [address] [place], [address] Monocytes/100 WBC (Bld) 10.6 % High 0-10 [facility] Comment on above: Performed By: #### L 501.2300, L500.2500, L501.5200, L100.0100 #### [facility] [address] [place], [address] Neutrophils/100 WBC (Bld) 69.5 % Normal 47-70 [facility] Comment on above: Performed By: #### L 501.2300, L500.2500, L501.5200, L100.0100 #### [facility] [address] [place], [address] Nucleated RBC (Bld) [#/Vol] 0 10*3/uL Normal 0-5 [facility] Comment on above: Performed By: #### L 501.2300, L500.2500, L501.5200, L100.0100 #### [facility] [address] [place], [address] Platelet mean volume (Bld) [Entitic vol] 9.4 fL Normal 6.2-12.0 [facility] Comment on above: Performed By: #### L 501.2300, L500.2500, L501.5200, L100.0100 #### [facility] [address] [place], [address] Platelets (Bld) [#/Vol] 256 10*3/uL Normal 150-450 [facility] Comment on above: Performed By: #### L 501.2300, L500.2500, L501.5200, L100.0100 #### [facility] [address] [place], [address] RBC (Bld) [#/Vol] 3.47 10*6/uL Low 4.2-5.4 [facility] Comment on above: Performed By: #### L 501.2300, L500.2500, L501.5200, L100.0100 #### [facility] [address] [place], [address] RDW SD 55.8 fl High 35.1-43.9 [facility] Comment on above: Performed By: #### L 501.2300, L500.2500, L501.5200, L100.0100 #### [facility] [address] [place], [address] WBC (Bld) [#/Vol] 6.6 10*3/uL Normal 4.4-11.0 [facility] Comment on above: Performed By: #### L 501.2300, L500.2500, L501.5200, L100.0100 #### [facility] [address] [place], [address] Comprehensive Metabolic Prof ilon 06-15-2024 Albumin [Mass/Vol] 3.1 g/dL Low 3.2-5.0 [facility] Comment on above: Performed By: #### L 501.2300, L500.2500, L501.5200, L100.0100 #### [facility] [address] [place], [address] Albumin/Globulin [Mass ratio] 1.1 {ratio} Normal 0.9-2.4 [facility] Comment on above: Performed By: #### L 501.2300, L500.2500, L501.5200, L100.0100 #### [facility] [address] [place], [address] ALK P 81 U/L Normal 45-117 [facility] Comment on above: Performed By: #### L 501.2300, L500.2500, L501.5200, L100.0100 #### [facility] [address] [place], [address] ALT [Catalytic activity/Vol] 51 U/L Normal 13-56 [facility] Comment on above: Performed By: #### L 501.2300, L500.2500, L501.5200, L100.0100 #### [facility] [address] [place], [address] AST [Catalytic activity/Vol] 23 U/L Normal 15-37 [facility] Comment on above: Performed By: #### L 501.2300, L500.2500, L501.5200, L100.0100 #### [facility] [address] [place], [address] Bilirubin [Mass/Vol] 0.20 mg/dL Normal 0.20-1.00 [facility] Comment on above: Result Comment: For patients on eltrombopag therapy, use of Dimension [place] TBIL is not recommended. Performed By: #### L 501.2300, L500.2500, L501.5200, L100.0100 #### [facility] [address] [place], [address] BUN/CRE 19.4 RATIO Normal 10-20 [facility] Comment on above: Performed By: #### L 501.2300, L500.2500, L501.5200, L100.0100 #### [facility] [address] [place], [address] CA,Total 9.6 mg/dL Normal 8.5-10.1 [facility] Comment on above: Performed By: #### L 501.2300, L500.2500, L501.5200, L100.0100 #### [facility] [address] [place], [address] Chloride [Moles/Vol] 112 mmol/L High 98-107 [facility] Comment on above: Performed By: #### L 501.2300, L500.2500, L501.5200, L100.0100 #### [facility] [address] [place], [address] CO2 [Moles/Vol] 27.0 mmol/L Normal 21.0-32.0 [facility] Comment on above: Performed By: #### L 501.2300, L500.2500, L501.5200, L100.0100 #### [facility] [address] [place], [address] Creatinine [Mass/Vol] 0.72 mg/dL Normal 0.55-1.02 [facility] Comment on above: Result Comment: The validity of the calculated GFR GFRAA in patients over 70 years has not been determined. Clinical correlation is essential. Performed By: #### L 501.2300, L500.2500, L501.5200, L100.0100 #### [facility] [address] [place], [address] EST GFR - AA 104 mL/min Normal >60 [facility] Comment on above: Result Comment: Afri can [place] GFR Calc Performed By: #### L 501.2300, L500.2500, L501.5200, L100.0100 #### [facility] [address] [place], [address] GAP 3 Low 5-15 [facility] Comment on above: Performed By: #### L 501.2300, L500.2500, L501.5200, L100.0100 #### [facility] [address] [place], [address] GFR/1.73 sq M.predicted among non-blacks MDRD (S/P/Bld) [Vol rate/Area] 86 mL/min/{1.73_m2} Normal >60 [facility] Comment on above: Result Comment: Non- GFR Calc Performed By: #### L 501.2300, L500.2500, L501.5200, L100.0100 #### [facility] [address] [place], [address] Globulin (S) [Mass/Vol] 2.9 g/dL Normal 2.2-4.2 [facility] Comment on above: Performed By: #### L 501.2300, L500.2500, L501.5200, L100.0100 #### [facility] [address] [place], [address] Glucose [Mass/Vol] 103 mg/dL Normal 74-106 [facility] Comment on above: Result Comment: Fast ing Glucose result from 100 to 125 mg/dL suggests IMPAIRED HOMEOSTASIS per A.D.A. criteria. Performed By: #### L 501.2300, L500.2500, L501.5200, L100.0100 #### [facility] [address] [place], [address] Potassium [Moles/Vol] 3.8 mmol/L Normal 3.5-5.1 [facility] Comment on above: Performed By: #### L 501.2300, L500.2500, L501.5200, L100.0100 #### [facility] [address] [place], [address] Sodium [Moles/Vol] 143 mmol/L Normal 136-145 [facility] Comment on above: Performed By: #### L 501.2300, L500.2500, L501.5200, L100.0100 #### [facility] [address] [place], [address] T PROT 6.0 g/dL Low 6.4-8.2 [facility] Comment on above: Performed By: #### L 501.2300, L500.2500, L501.5200, L100.0100 #### [facility] [address] [place], [address] Urea nitrogen [Mass/Vol] 14 mg/dL Normal 7-18 [facility] Comment on above: Performed By: #### L 501.2300, L500.2500, L501.5200, L100.0100 #### [facility] [address] [place] [place], [address] Thyroid Stim Hormone (TSH)on 06-15-2024 TSH 2.190 uIU/mL Normal 0.358-3.740 [facility] Comment on above: Performed By: #### L 501.2300, L500.2500, L501.5200, L100.0100 #### [facility] [address] [place], [place], [address] Spine Lumbar (Routine)on Spine Lumbar (Routine) [facility] Services [address] [place] [address] Spine Lumbar (Routine) MR#: [id number] Acct: [id number] Name: ANGELES LARIOS Rep #: [id number] : 1960 F 64 From: Mason Montgomery MD PCP: Dr. Martin Gutierrez MD Status: REG CLI Study: Spine Lumbar (Routine) Date of Exam: 06/13/24 Exam# [id number] Ordering Dr: Martin Gutierrez MD [id number] EXAM: MR LUMBAR SPINE WITHOUT INTRAVENOUS CONTRAST CLINICAL INDICATION: LOW BACK PAIN AND BURNING INTO L LEG TECHNIQUE: Multiplanar and multisequence MR images of the lumbar spine without intravenous contrast. COMPARISON: No relevant prior studies available. FINDINGS: VERTEBRAE: Mildly accentuated lumbar lordosis. Normal vertebral body height. No bone marrow edema. SPINAL CORD: Normal. Normal position and signal intensity of the conus medullaris. SOFT TISSUES: Normal. DISCS/SPINAL CANAL/NEURAL FORAMINA: T12-L1: Moderate disc space narrowing associated with circumferential disc bulging with mild impression on the thecal sac. No spinal or neural foraminal stenosis. L1-L2: Normal. Normal disc height and morphology. Normal spinal canal and lateral recesses. Normal neuroforamina. L2-L3: Normal. Normal disc height and morphology. Normal spinal canal and lateral recesses. Normal neuroforamina. L3-L4: Normal. Normal disc height and morphology. Normal spinal canal and lateral recesses. Normal neuroforamina. L4-L5: No significant disc space narrowing. Approximately 2.5 mm of anterior listhesis of L4 on L5. No spondylolysis. Mild disc bulging, ligamentous hypertrophy and facet arthropathy results in moderate spinal stenosis and mild bilateral neural foraminal narrowing. L5-S1: A proximally 4 mm of anterior listhesis of L5 on S1 without spondylolysis. No disc protrusion or spinal stenosis. Facet arthropathy present causing mild narrowing of the right neural foramen. Intact spinal canal and left neural foramen. MRI/Spine Lumbar (Routine) IMPRESSION: 1. Mild anterior listhesis of L4 on L5 and L5 on S1 without spondylolysis. 2. Moderate L4-5 spinal stenosis related to posterior ligamentous hypertrophy and facet arthropathy. Electronically Signed: Mason Montgomery MD at 15:09 EDT , CC: Dr. Martin Gutierrez MD [employer]: Signed [facility] L/S Spine Bending Flex/[place] 05-23-2024 L/S Spine Bending Flex/Ext [facility] Imaging Services [address] [place] [id number] L/S Spine Bending Flex/Ext MR#: [id number] Acct: [id number] Name: ANGELES LARIOS Rep #: [id number] : 1960 F 64 From: Marshal Rosales MD PCP: Dr. Martin Gutierrez MD Status: REG CLI Study: L/S Spine Bending Flex/Ext Date of Exam: 05/23 Exam# [id number] Ordering Dr: Armando Ga MD [id number] STUDY: X-RAY - LUMBAR SPINE REASON FOR EXAM: Female, 64 years old. Radiculopathy, lumbar region. TECHNIQUE: Lateral flexion and extension view(s) of the lumbar spine were obtained. COMPARISON: May 11, 2024 FINDINGS: Normal lumbar lordosis. 6 mm of anterolisthesis of L4 on L5 on flexion which is stable in flexion and extension. Diffuse moderate lower thoracic and lumbosacral facet sclerosis. Mild diffuse intervertebral disc space narrowing most marked at L4-5 and L5-S1. Vascular calcification. RAD/L/S Spine Bending Flex/Ext IMPRESSION: Anterolisthesis of L4 on L5 which does not change in flexion and extension. Mild diffuse lower thoracic and lumbosacral facet sclerosis most marked at L4-5 and L5-S1. Electronically Signed: Marshal Rosales MD at 13:32 EDT , CC: Dr. Armando Ga MD; Dr. Martin Gutierrez MD [employer]: Signed Normal [facility] L/S Spine Min 4 Viewson 04-24 L/S Spine Min 4 Views [facility] Imaging Services [address] [place] [address] [id number] L/S Spine Min 4 Views MR#: [id number] Acct: [id number] Name: ANGELES LARIOS Rep #: [id number] : 1960 F 64 From: Gamaliel ridley MD PCP: Dr. Martin Gutierrez MD Status: REG CLI Study: L/S Spine Min 4 Views Date of Exam: 05/11/24 Exam# [id number] Ordering Dr: Martin Gutierrez MD [id number] STUDY: X-RAY - LUMBAR SPINE REASON FOR EXAM: Female, 64 years old. LOWER BACK PAIN TECHNIQUE: 4 view(s) of the lumbar spine were obtained including oblique views. COMPARISON: Comparison is made with prior study December 18, 2022. FINDINGS: There is an exaggerated lumbar lordosis. There is no substantial scoliosis. 1 anterior listhesis of L5 on S1 without spondylolysis most likely secondary to facet joint osteoarthritis. Normal vertebral bodies and endplates. Disc space narrowing at the L5-S1 level. Facet joint osteoarthritis. There is atherosclerotic calcification of the abdominal aorta without a demonstrated aneurysm. RAD/L/S Spine Min 4 Views IMPRESSION: Degenerative changes of the spine, as detailed above. Grade 1 anterolisthesis of L5 on S1 without spondylolysis. Electronically Signed: Gamaliel Serrano MD at 9:18 EDT , CC: Dr. Martin Gutierrez MD [employer]: Signed Normal [facility] Absolute lymphocyte countOrd ered By: Martin Gutierrez on 12-18-2023 Lymphocytes Auto (Unsp spec) [#/Vol] 1.53 10*3/uL 0.83-4.51 [facility] Automated lymphocyte count a s percentage of total leukocytesOrdered By: Martin Gutierrez on 12-18-2023 Lymphocytes/100 WBC Auto (Unsp spec) 26.8 % 19-41 [facility] Basophil percentageOrdered B y: Martin Gutierrez on 12-18-2023 Basophils/100 WBC (Bld) 1.2 % 0-1 [facility] Bilirubin [Mass/Vol] 0.30 mg/dL 0.20-1.00 [facility] Comment on above: For patients on eltr ombopag therapy, use of Dimension [place] TBIL is not recommended. Chloride [Moles/Vol] 110 mmol/L 98-107 [facility] Eosinophils/100 WBC (Bld) 1.8 % 0-5 [facility] Glucose [Mass/Vol] 104 mg/dL 74-106 [facility] Comment on above: Fasting Glucose resu lt from 100 to 125 mg/dL suggests IMPAIRED HOMEOSTASIS per A.D.A. criteria. Hemoglobin (Bld) [Mass/Vol] 10.5 g/dL 12.0-15.0 [facility] Monocytes/100 WBC (Bld) 9.6 % 0-10 [facility] Neutrophils (Bld) [#/Vol] 3.4 10*3/uL 2.0-7.7 [facility] Neutrophils/100 WBC (Bld) 59.9 % 47-70 [facility] Potassium [Moles/Vol] 3.7 mmol/L 3.5-5.1 [facility] Protein [Mass/Vol] 6.3 g/dL 6.4-8.2 [facility] Sodium [Moles/Vol] 142 mmol/L 136-145 [facility] WBC (Bld) [#/Vol] 5.7 10*3/uL 4.4-11.0 [facility] Determination of erythrocyte mean corpuscular volume (MCV)Ordered By: Martin Gutierrez on 12-18-2023 MCV (RBC) [Entitic vol] 113.6 fL 81-99 [facility] Erythrocyte distribution wid th ratioOrdered By: Martin Gutierrez 12-18-2023 Erythrocyte distribution width (RBC) [Ratio] 13.9 % 11.6-14.6 [facility] Erythrocyte distribution wid th standard deviationOrdered By: Martin Gutierrez 12-18-2023 Erythrocyte distribution width (RBC) [Entitic vol] 57.8 fL 35.1-43.9 [facility] Hematocrit Auto (Bld) [Volum e fraction]Ordered By: [facility] Matt on 12-18-2023 Hematocrit (Bld) [Volume fraction] 34.3 % 37-47 [facility] Immature granulocytes/100 WB C Auto (Bld)Ordered By: Martin Gutierrez 12-18-2023 Immature granulocytes/100 WBC (Bld) 0.700 % 0.0-0.9 [facility] Comment on above: IG% - Immature Granu locytes (promyelocytes, myelocytes and metamyelocytes) > 1% indicates that a LEFT SHIFT is Present. Laboratory - Chemistry and C hemistry - challengeOrdered By: Martin Gutierrez on 12-18-2023 Albumin/Globulin [Mass ratio] 1.2 {ratio} 0.9-2.4 [facility] ALP [Catalytic activity/Vol] 94 U/L 45-117 [facility] ALT [Catalytic activity/Vol] 37 U/L 13-56 [facility] CO2 [Moles/Vol] 29.0 mmol/L 21.0-32.0 [facility] Globulin (S) [Mass/Vol] 2.9 g/dL 2.2-4.2 [facility] Urea nitrogen/Creatinine [Mass ratio] 16.7 mg/mg 10-20 [facility] - Hematology and Cell countsOrdered By: Martin Gutierrez on 12-18-2023 MCH (RBC) [Entitic mass] 34.8 pg 27.0-32.0 [facility] MCHC (RBC) [Mass/Vol] 30.6 g/dL 32-36 [facility] Nucleated RBC/100 WBC (Bld) [Ratio] 0 % 0-5 [facility] Platelet mean volume (Bld) [Entitic vol] 9.6 fL 6.2-12.0 [facility] Platelets (Bld) [#/Vol] 289 10*3/uL 150-450 [facility] No Panel InformationOrdered By: Martin Gutierrez on 12-18-2023 Estimated GFR (MDRD) Amer 104 mL/min >60 [facility] Comment on above: GFR Calc Estimated GFR (MDRD) Non-Af Amer 86 mL/min >60 [facility] Comment on above: Non- GFR Calc Vitamin D 25-Hydroxy 15.2 ng/mL [facility] Comment on above: Vitamin D 25(OH) Sta tus Range Deficiency <20 ng/mL (50nmol/L) Insufficiency 20 - 30 ng/mL (50 - 75 nmol/L) Sufficiency 30 - 100 ng/mL (75 - 250 nmol/L) Toxicity >100 ng/mL (>250 nmol/L) RBC Auto (Bld) [#/Vol]Ordere d By: Martin Gutierrez on 12-18-2023 RBC (Bld) [#/Vol] 3.02 10*6/uL 4.2-5.4 [facility] Serum or plasma calcium kamlesh urement (mass/volume)Ordered By: Martin Gutierrez on 12-18-2023 Calcium [Mass/Vol] 8.7 mg/dL 8.5-10.1 [facility] Serum or plasma creatinine m easurement (mass/volume)Ordered By: Martin Gutierrez on 12-18-2023 Creatinine [Mass/Vol] 0.72 mg/dL 0.55-1.02 [facility] Comment on above: The validity of the calculated GFR & GFRAA in patients over 70 years has not been determined. Clinical correlation is essential. Serum or plasma thyroid stim ulating hormone (TSH) measurement (units/volume)Ordered By: Martin Gutierrez on 12-18-2023 TSH Qn 2.41 uIU/mL 0.358-3.74 [facility] Serum or plasma urea nitroge n measurement (mass/volume)Ordered By: Martin Gutierrez on 12-18-2023 Urea nitrogen [Mass/Vol] 12 mg/dL 7-18 [facility] Thin prep Papanicolaou smear with manual screeningOrdered By: Martin Gutierrez on 12-18-2023 Thin prep Papanicolaou smear with manual screening 3.4 g/dL 3.2-5.0 [facility] Thin prep Papanicolaou smear with manual screening 22 U/L 15-37 [facility] Thin prep Papanicolaou smear with manual screening 3 5-15 [facility] Absolute lymphocyte countOrd ered By: Simon Ulloa on 09-30-2023 Lymphocytes Auto (Unsp spec) [#/Vol] 1.61 10*3/uL 0.83-4.51 [facility] Automated lymphocyte count a s percentage of total leukocytesOrdered By: Simon Ulloa on 09-30-2023 Lymphocytes/100 WBC Auto (Unsp spec) 18.0 % 19-41 [facility] Basophil percentageOrdered B y: Simon Ulloa on 09-30-2023 Basophils/100 WBC (Bld) 0.8 % 0-1 [facility] Eosinophils/100 WBC (Bld) 1.1 % 0-5 [facility] Hemoglobin (Bld) [Mass/Vol] 13.7 g/dL 12.0-15.0 [facility] Monocytes/100 WBC (Bld) 7.0 % 0-10 [facility] Neutrophils (Bld) [#/Vol] 6.5 10*3/uL 2.0-7.7 [facility] Neutrophils/100 WBC (Bld) 72.7 % 47-70 [facility] WBC (Bld) [#/Vol] 8.9 10*3/uL 4.4-11.0 [facility] Determination of erythrocyte mean corpuscular volume (MCV)Ordered By: Simon Ulloa on 09-30-2023 MCV (RBC) [Entitic vol] 105.7 fL 81-99 [facility] Erythrocyte distribution wid th ratioOrdered By: [facility] Artemio on 09-30-2023 Erythrocyte distribution width (RBC) [Ratio] 14.0 % 11.6-14.6 [facility] Erythrocyte distribution wid th standard deviationOrdered By: Simon Ulloa on 09-30-2023 Erythrocyte distribution width (RBC) [Entitic vol] 54.8 fL 35.1-43.9 [facility] Hematocrit Auto (Bld) [Volum e fraction]Ordered By: Simon Ulloa on 09-30-2023 Hematocrit (Bld) [Volume fraction] 43.0 % 37-47 [facility] Immature granulocytes/100 WB C Auto (Bld)Or[facility] By: [facility] 09-30-[facility]23 Immature granulocytes/100 WBC (Bld) 0.400 % 0.0-0.9 [facility] Comment on above: IG% - Immature Granu locytes (promyelocytes, myelocytes and metamyelocytes) > 1% indicates that a LEFT SHIFT is Present. Iron measurement (mass/mass) Ordered By: Simon Ulloa on 09-30-2023 Iron (Unsp spec) [Mass/Mass] 39 ug/dL 50-170 [facility] - Chemistry and C hemistry - challengeOrdered By: Simon Ulloa on 09-30-2023 Cobalamin (Vitamin B12) [Mass/Vol] 257 pg/mL 211-911 [facility] Ferritin [Mass/Vol] 27 ng/mL 8-252 [facility] - Hematology and Cell countsOrdered By: Simon Ulloa on 09-30-2023 MCH (RBC) [Entitic mass] 33.7 pg 27.0-32.0 [facility] MCHC (RBC) [Mass/Vol] 31.9 g/dL 32-36 [facility] Nucleated RBC/100 WBC (Bld) [Ratio] 0 % 0-5 [facility] Platelet mean volume (Bld) [Entitic vol] 9.4 fL 6.2-12.0 [facility] Platelets (Bld) [#/Vol] 279 10*3/uL 150-450 [facility] No Panel InformationOrdered By: Simon Ulloa on 09-30-2023 Total Iron Binding Capacity 346 ug/dL 250-450 [facility] RBC Auto (Bld) [#/Vol]Ordere d By: Simon Ulloa on 09-30-2023 RBC (Bld) [#/Vol] 4.07 10*6/uL 4.2-5.4 [facility] Serum or plasma iron saturat ion measurement (mass fraction)Ordered By: Simon Ulloa on 09-30-2023 Iron saturation [Mass fraction] 11.3 % 15.0-55.0 [facility] Absolute lymphocyte countOrd ered By: Martin Gutierrez on 08-26-2023 Lymphocytes Auto (Unsp spec) [#/Vol] 1.75 10*3/uL 0.83-4.51 [facility] Basophil percentageOrdered B y: Martin Gutierrez on 08-26-2023 Basophils/100 WBC (Bld) 0.6 % 0-1 [facility] Eosinophils/100 WBC (Bld) 0.6 % 0-5 [facility] Neutrophils (Bld) [#/Vol] 6.9 10*3/uL 2.0-7.7 [facility] Neutrophils/100 WBC (Bld) 69.7 % 47-70 [facility] WBC (Bld) [#/Vol] 9.9 10*3/uL 4.4-11.0 [facility] Blood erythrocytes count (nu mber/volume)Ordered By: Martin Gutierrez on 08-26-2023 RBC (Bld) [#/Vol] 3.61 10*6/uL 4.2-5.4 [facility] Blood hemoglobin measurement (mass/volume)Ordered By: Martin Gutierrez on 08-26-2023 Hemoglobin (Bld) [Mass/Vol] 12.1 g/dL 12.0-15.0 [facility] Blood lymphocytes/100 leukoc ytesOrdered By: Martin Gutierrez on 08-26-2023 Lymphocytes/100 WBC (Bld) 17.6 % 19-41 [facility] Blood monocytes/100 leukocyt esOrdered By: Martin Gutierrez on 08-26-2023 Monocytes/100 WBC (Bld) 11.3 % 0-10 [facility] Blood platelet mean volumeOr dered By: Martin Gutierrez on 08-26-2023 Platelet mean volume (Bld) [Entitic vol] 9.9 fL 6.2-12.0 [facility] Determination of erythrocyte mean corpuscular volume (MCV)Ordered By: Martin Gutierrez on 08-26-2023 MCV (RBC) [Entitic vol] 104.4 fL 81-99 [facility] Hematocrit Auto (Bld) [Volum e fraction]Ordered By: Martin Gutierrez on 08-26-2023 Hematocrit (Bld) [Volume fraction] 37.7 % 37-47 [facility] Iron measurement (mass/mass) Ordered By: Martin Gutierrez on 08-26-2023 Iron (Unsp spec) [Mass/Mass] 14 ug/dL 50-170 [facility] - Hematology and Cell countsOrdered By: Martin Gutierrez on 08-26-2023 Erythrocyte distribution width (RBC) [Entitic vol] 47.9 fL 35.1-43.9 [facility] Erythrocyte distribution width (RBC) [Ratio] 12.4 % 11.6-14.6 [facility] Immature granulocytes/100 WBC (Bld) 0.200 % 0.0-0.9 [facility] Comment on above: IG% - Immature Granu locytes (promyelocytes, myelocytes and metamyelocytes) > 1% indicates that a LEFT SHIFT is Present. MCH (RBC) [Entitic mass] 33.5 pg 27.0-32.0 [facility] Nucleated RBC/100 WBC (Bld) [Ratio] 0 % 0-5 [facility] MCHC Auto (RBC) [Mass/Vol]Or dered By: Martin Gutierrez on 08-26-2023 MCHC (RBC) [Mass/Vol] 32.1 g/dL 32-36 [facility] Platelets bldOrdered By: Martin Gutierrez on 08-26-2023 Platelets (Bld) [#/Vol] 295 10*3/uL 150-450 [facility] Absolute lymphocyte countOrd ered By: Martin Gutierrez on 06-09-2023 Lymphocytes Auto (Unsp spec) [#/Vol] 1.24 10*3/uL 0.83-4.51 [facility] Basophil percentageOrdered B y: Martin Gutierrez on 06-09-2023 Basophils/100 WBC (Bld) 0.9 % 0-1 [facility] Bilirubin [Mass/Vol] 0.20 mg/dL 0.20-1.00 [facility] Comment on above: For patients on eltr ombopag therapy, use of Dimension [place] TBIL is not recommended. Chloride [Moles/Vol] 109 mmol/L 98-107 [facility] Eosinophils/100 WBC (Bld) 2.1 % 0-5 [facility] Glucose [Mass/Vol] 141 mg/dL 74-106 [facility] Comment on above: Fasting Glucose resu lt greater than or equal to 126 mg/dL suggests DIABETES MELLITUS per A.D.A. criteria. Neutrophils (Bld) [#/Vol] 3.6 10*3/uL 2.0-7.7 [facility] Neutrophils/100 WBC (Bld) 66.2 % 47-70 [facility] Potassium [Moles/Vol] 3.8 mmol/L 3.5-5.1 [facility] Protein [Mass/Vol] 6.8 g/dL 6.4-8.2 [facility] Sodium [Moles/Vol] 141 mmol/L 136-145 [facility] WBC (Bld) [#/Vol] 5.4 10*3/uL 4.4-11.0 [facility] Blood erythrocytes count (nu mber/volume)Ordered By: Martin Gutierrez on 06-09-2023 RBC (Bld) [#/Vol] 3.81 10*6/uL 4.2-5.4 [facility] Blood hemoglobin measurement (mass/volume)Ordered By: Martin Gutierrez on 06-09-2023 Hemoglobin (Bld) [Mass/Vol] 13.2 g/dL 12.0-15.0 [facility] Blood lymphocytes/100 leukoc ytesOrdered By: Martin Gutierrez on 06-09-2023 Lymphocytes/100 WBC (Bld) 23.1 % 19-41 [facility] Blood monocytes/100 leukocyt esOrdered By: Martin Gutierrez on 06-09-2023 Monocytes/100 WBC (Bld) 7.5 % 0-10 [facility] Blood platelet mean volumeOr dered By: Martin Gutierrez on 06-09-2023 Platelet mean volume (Bld) [Entitic vol] 9.5 fL 6.2-12.0 [facility] Determination of erythrocyte mean corpuscular volume (MCV)Ordered By: Martin Gutierrez on 06-09-2023 MCV (RBC) [Entitic vol] 108.4 fL 81-99 [facility] Hematocrit Auto (Bld) [Volum e fraction]Ordered By: Martin Matt on 06-09-2023 Hematocrit (Bld) [Volume fraction] 41.3 % 37-47 [facility] - Chemistry and C hemistry - challengeOrdered By: Martin Gutierrez on 06-09-2023 ALP [Catalytic activity/Vol] 130 U/L 45-117 [facility] ALT [Catalytic activity/Vol] 21 U/L 13-56 [facility] CO2 [Moles/Vol] 28.0 mmol/L 21.0-32.0 [facility] Globulin (S) [Mass/Vol] 3.5 g/dL 2.2-4.2 [facility] Urea nitrogen/Creatinine [Mass ratio] 14.2 mg/mg 10-20 [facility] - Hematology and Cell countsOrdered By: Martin Gutierrez on 06-09-2023 Erythrocyte distribution width (RBC) [Entitic vol] 57.1 fL 35.1-43.9 [facility] Erythrocyte distribution width (RBC) [Ratio] 14.5 % 11.6-14.6 [facility] Immature granulocytes/100 WBC (Bld) 0.200 % 0.0-0.9 [facility] Comment on above: IG% - Immature Granu locytes (promyelocytes, myelocytes and metamyelocytes) > 1% indicates that a LEFT SHIFT is Present. MCH (RBC) [Entitic mass] 34.6 pg 27.0-32.0 [facility] Nucleated RBC/100 WBC (Bld) [Ratio] 0 % 0-5 [facility] MCHC Auto (RBC) [Mass/Vol]Or dered By: Martin Gutierrez on 06-09-2023 MCHC (RBC) [Mass/Vol] 32.0 g/dL 32-36 [facility] No Panel InformationOrdered By: Martin Gutierrez on 06-09-2023 Estimated GFR (MDRD) Amer 96 mL/min >60 [facility] Comment on above: GFR Calc Estimated GFR (MDRD) Non-Af Amer 80 mL/min >60 [facility] Comment on above: Non- GFR Calc Thyroid Stimulating Hormone (TSH) 1.26 uIU/mL 0.358-3.74 [facility] Vitamin D 25-Hydroxy 23.0 ng/mL [facility] Comment on above: Vitamin D 25(OH) Sta tus Range Deficiency <20 ng/mL (50nmol/L) Insufficiency 20 - 30 ng/mL (50 - 75 nmol/L) Sufficiency 30 - 100 ng/mL (75 - 250 nmol/L) Toxicity >100 ng/mL (>250 nmol/L) Platelets bldOrdered By: Martin Gutierrez on 06-09-2023 Platelets (Bld) [#/Vol] 282 10*3/uL 150-450 [facility] Serum or plasma albumin kamlesh urement (mass/volume)Ordered By: Martin Gutierrez 06-09-2023 Albumin [Mass/Vol] 3.3 g/dL 3.2-5.0 [facility] Serum or plasma albumin/glob ulin mass ratioOrdered By: Martin Gutierrez 06-09-2023 Albumin/Globulin [Mass ratio] 0.9 {ratio} 0.9-2.4 [facility] Serum or plasma calcium kamlesh urement (mass/volume)Ordered By: Martin Gutierrez on 06-09-2023 Calcium [Mass/Vol] 8.7 mg/dL 8.5-10.1 [facility] Serum or plasma creatinine m easurement (mass/volume)Ordered By: Martin Gutierrez 06-09-2023 Creatinine [Mass/Vol] 0.77 mg/dL 0.55-1.02 [facility] Comment on above: The validity of the calculated GFR & GFRAA in patients over 70 years has not been determined. Clinical correlation is essential. Serum or plasma urea nitroge n measurement (mass/volume)Ordered By: Martin Gutierrez on 06-09-2023 Urea nitrogen [Mass/Vol] 11 mg/dL 7-18 [facility] Thin prep Papanicolaou smear with manual screeningOrdered By: Martin Gutierrez on 06-09-2023 Thin prep Papanicolaou smear with manual screening 11 U/L 15-37 [facility] Thin prep Papanicolaou smear with manual screening 4 5-15 [facility] Laboratory - Microbiology an d Antimicrobial susceptibilityOrdered By: Martin Gutierrez on 05-14-2023 SARS-CoV-2 (COVID-19) RNA RENATE+probe Ql (Unsp spec) [facility] SARS-CoV-2 (COVID-19) RNA RENATE+probe Ql (Unsp spec) [facility] No Panel InformationOrdered By: Martin Gutierrez on 05-14-2023 Influenza Types A,B Direct FA (MARQUEZ) [facility] Influenza Types A,B Direct FA (MARQUEZ) [facility] RSV Ag EIAOrdered By: Martin mary on 05-14-2023 RSV Ag Immune stain Ql (Tiss) [facility] RSV Ag Immune stain Ql (Tiss) [facility] Absolute lymphocyte countOrd ered By: Simon Ulloa on 04-15-2023 Lymphocytes Auto (Unsp spec) [#/Vol] 1.11 10*3/uL 0.83-4.51 [facility] Basophil percentageOrdered B y: Simon Ulloa on 04-15-2023 Basophils/100 WBC (Bld) 0.9 % 0-1 [facility] Eosinophils/100 WBC (Bld) 1.7 % 0-5 [facility] Neutrophils (Bld) [#/Vol] 5.0 10*3/uL 2.0-7.7 [facility] Neutrophils/100 WBC (Bld) 70.3 % 47-70 [facility] WBC (Bld) [#/Vol] 7.1 10*3/uL 4.4-11.0 [facility] Blood erythrocytes count (nu mber/volume)Ordered By: Simon Ulloa on 04-15-2023 RBC (Bld) [#/Vol] 4.09 10*6/uL 4.2-5.4 [facility] Blood hemoglobin measurement (mass/volume)Ordered By: Simon Ulloa on 04-15-2023 Hemoglobin (Bld) [Mass/Vol] 14.3 g/dL 12.0-15.0 [facility] Blood lymphocytes/100 leukoc ytesOrdered By: [facility] on 04-15-2023 Lymphocytes/100 WBC (Bld) 15.7 % 19-41 [facility] Blood monocytes/100 leukocyt esOrdered By: [facility] Artemio on 04-15-2023 Monocytes/100 WBC (Bld) 11.3 % 0-10 [facility] Blood platelet mean volumeOr dered By: [facility] on 04-15-2023 Platelet mean volume (Bld) [Entitic vol] 9.4 fL 6.2-12.0 [facility] Determination of erythrocyte mean corpuscular volume (MCV)Ordered By: [facility] on 04-15-2023 MCV (RBC) [Entitic vol] 103.7 fL 81-99 [facility] Hematocrit Auto (Bld) [Volum e fraction]Ordered By: Simon Ulloa on 04-15-2023 Hematocrit (Bld) [Volume fraction] 42.4 % 37-47 [facility] Hemoglobin in reticulocytes (mass per reticulocyte)Ordered By: [facility] Artemio on 04-15-2023 Hemoglobin (Reticulocytes) [Entitic mass] 35.8 pg 30-35 [facility] Iron measurement (mass/mass) Ordered By: [facility] on 04-15-2023 Iron (Unsp spec) [Mass/Mass] 80 ug/dL 50-170 [facility] Laboratory - Hematology and Cell countsOrdered By: [facility] on 04-15-2023 Erythrocyte distribution width (RBC) [Entitic vol] 49.9 fL 35.1-43.9 [facility] Erythrocyte distribution width (RBC) [Ratio] 13.2 % 11.6-14.6 [facility] Immature granulocytes/100 WBC (Bld) 0.100 % 0.0-0.9 [facility] Comment on above: IG% - Immature Granu locytes (promyelocytes, myelocytes and metamyelocytes) > 1% indicates that a LEFT SHIFT is Present. MCH (RBC) [Entitic mass] 35.0 pg 27.0-32.0 [facility] Nucleated RBC/100 WBC (Bld) [Ratio] 0 % 0-5 [facility] MCHC Auto (RBC) [Mass/Vol]Or dered By: Simon Ulloa on 04-15-2023 MCHC (RBC) [Mass/Vol] 33.7 g/dL 32-36 [facility] No Panel InformationOrdered By: Simon Ulloa on 04-15-2023 Immature Reticulocyte Fraction 16.80 % 3.00-15.90 [facility] Reticulocyte Count 2.48 % 0.5-1.5 [facility] Total Iron Binding Capacity 335 ug/dL 250-450 [facility] Platelets bldOrdered By: Refugio Ulloa on 04-15-2023 Platelets (Bld) [#/Vol] 243 10*3/uL 150-450 [facility] Serum or plasma ferritin ibrahima surement (mass/volume)Ordered By: Simon Ulloa on 04-15-2023 Ferritin [Mass/Vol] 34 ng/mL 8-252 [facility] Serum or plasma iron saturat ion measurement (mass fraction)Ordered By: Simon Ulloa on 04-15-2023 Iron saturation [Mass fraction] 23.9 % 15.0-55.0 [facility] Absolute lymphocyte countOrd ered By: Dr. Gutierrez on 12-11-2022 Lymphocytes Auto (Unsp spec) [#/Vol] 1.66 10*3/uL 0.83-4.51 [facility] Basophil percentageOrdered B y: Dr. Gutierrez on 12-11-2022 Basophils/100 WBC (Bld) 1.0 % 0-1 [facility] Bilirubin [Mass/Vol] 0.30 mg/dL 0.20-1.00 [facility] Comment on above: For patients on eltr ombopag therapy, use of Dimension [place] TBIL is not recommended. Chloride [Moles/Vol] 107 mmol/L 98-107 [facility] Cholesterol [Mass/Vol] 188 mg/dL <200 [facility] Comment on above: <200 mg/dL Desirable 200-240 mg/dL Borderline >240 mg/dL High Risk Eosinophils/100 WBC (Bld) 1.5 % 0-5 [facility] Glucose [Mass/Vol] 101 mg/dL 74-106 [facility] Comment on above: Fasting Glucose resu lt from 100 to 125 mg/dL suggests IMPAIRED HOMEOSTASIS per A.D.A. criteria. Neutrophils (Bld) [#/Vol] 4.5 10*3/uL 2.0-7.7 [facility] Neutrophils/100 WBC (Bld) 63.8 % 47-70 [facility] Potassium [Moles/Vol] 3.8 mmol/L 3.5-5.1 [facility] Protein [Mass/Vol] 7.3 g/dL 6.4-8.2 [facility] Sodium [Moles/Vol] 138 mmol/L 136-145 [facility] Triglyceride [Mass/Vol] 154 mg/dL <199 [facility] Comment on above: The drugs N-Acetylcy steine and Metamizole may falsely depress this assay.Serum Triglycerides Reference Interval Normal <150 mg/dL Borderline high 150 - 199 mg/dL High 200 - 499 mg/dL Very High > or = 500 mg/dL WBC (Bld) [#/Vol] 7.1 10*3/uL 4.4-11.0 [facility] Blood erythrocytes count (nu mber/volume)Ordered By: Dr. Gutierrez on 12-11-2022 RBC (Bld) [#/Vol] 4.11 10*6/uL 4.2-5.4 [facility] Blood hemoglobin measurement (mass/volume)Ordered By: Dr. Gutierrez on 12-11-2022 Hemoglobin (Bld) [Mass/Vol] 14.3 g/dL 12.0-15.0 [facility] Blood lymphocytes/100 leukoc ytesOrdered By: Dr. Gutierrez on 12-11-2022 Lymphocytes/100 WBC (Bld) 23.3 % 19-41 [facility] Blood monocytes/100 leukocyt esOrdered By: Dr. Gutierrez on 12-11-2022 Monocytes/100 WBC (Bld) 10.0 % 0-10 [facility] Blood platelet mean volumeOr dered By: Dr. Gutierrez on 12-11-2022 Platelet mean volume (Bld) [Entitic vol] 10.4 fL 6.2-12.0 [facility] Determination of erythrocyte mean corpuscular volume (MCV)Ordered By: Dr. Gutierrez on 12-11-2022 MCV (RBC) [Entitic vol] 107.1 fL 81-99 [facility] Hematocrit Auto (Bld) [Volum e fraction]Ordered By: Dr. Gutierrez on 12-11-2022 Hematocrit (Bld) [Volume fraction] 44.0 % 37-47 [facility] Laboratory - Chemistry and C hemistry - challengeOrdered By: Dr. Gutierrez on 12-11-2022 ALP [Catalytic activity/Vol] 135 U/L 45-117 [facility] ALT [Catalytic activity/Vol] 21 U/L 13-56 [facility] CO2 [Moles/Vol] 26.0 mmol/L 21.0-32.0 [facility] Globulin (S) [Mass/Vol] 3.5 g/dL 2.2-4.2 [facility] Urea nitrogen/Creatinine [Mass ratio] 13.1 mg/mg 10-20 [facility] Laboratory - Hematology and Cell countsOrdered By: Dr. Gutierrez on 12-11-2022 Erythrocyte distribution width (RBC) [Entitic vol] 50.1 fL 35.1-43.9 [facility] Erythrocyte distribution width (RBC) [Ratio] 12.5 % 11.6-14.6 [facility] Immature granulocytes/100 WBC (Bld) 0.400 % 0.0-0.9 [facility] Comment on above: IG% - Immature Granu locytes (promyelocytes, myelocytes and metamyelocytes) > 1% indicates that a LEFT SHIFT is Present. MCH (RBC) [Entitic mass] 34.8 pg 27.0-32.0 [facility] Nucleated RBC/100 WBC (Bld) [Ratio] 0 % 0-5 [facility] MCHC Auto (RBC) [Mass/Vol]Or dered By: Dr. Gutierrez on 12-11-2022 MCHC (RBC) [Mass/Vol] 32.5 g/dL 32-36 [facility] No Panel InformationOrdered By: Dr. Gutierrez on 12-11-2022 Estimated GFR (MDRD) Amer 98 mL/min >60 [facility] Comment on above: GFR Calc Estimated GFR (MDRD) Non-Af Amer 81 mL/min >60 [facility] Comment on above: Non- GFR Calc Thyroid Stimulating Hormone (TSH) 2.80 uIU/mL 0.358-3.74 [facility] Vitamin D 25-Hydroxy 43.1 ng/mL [facility] Comment on above: Vitamin D 25(OH) Sta tus Range Deficiency <20 ng/mL (50nmol/L) Insufficiency 20 - 30 ng/mL (50 - 75 nmol/L) Sufficiency 30 - 100 ng/mL (75 - 250 nmol/L) Toxicity >100 ng/mL (>250 nmol/L) Platelets bldOrdered By: Dr. Gutierrez on 12-11-2022 Platelets (Bld) [#/Vol] 300 10*3/uL 150-450 [facility] Serum or plasma albumin kamlesh urement (mass/volume)Ordered By: Dr. Gutierrez on 12-11-2022 Albumin [Mass/Vol] 3.8 g/dL 3.2-5.0 [facility] Serum or plasma albumin/glob ulin mass ratioOrdered By: Dr. Gutierrez on 12-11-2022 Albumin/Globulin [Mass ratio] 1.1 {ratio} 0.9-2.4 [facility] Serum or plasma calcium kamlesh urement (mass/volume)Ordered By: Dr. Gutierrez on 12-11-2022 Calcium [Mass/Vol] 9.4 mg/dL 8.5-10.1 [facility] Serum or plasma cholesterol in HDL measurement (mass/volume)Ordered By: Dr. Gutierrez on 12-11-2022 Cholesterol in HDL [Mass/Vol] 40 mg/dL >40 [facility] Comment on above: The drugs N-Acetylcy steine and Metamizole may falsely depress this assay. Reference Range HDL <40 mg/dL Low HDL Cholesterol HDL >or= 60 mg/dL High HDL Cholesterol Serum or plasma cholesterol in VLDL measurement (mass/volume)Ordered By: Dr. Gutierrez on 12-11-2022 Cholesterol in VLDL [Mass/Vol] 31 mg/dL 5-40 [facility] Serum or plasma creatinine m easurement (mass/volume)Ordered By: Dr. Gutierrez on 12-11-2022 Creatinine [Mass/Vol] 0.76 mg/dL 0.55-1.02 [facility] Comment on above: The validity of the calculated GFR & GFRAA in patients over 70 years has not been determined. Clinical correlation is essential. Serum or plasma low density lipoprotein (LDL) cholesterol measurement (mass/volume)Ordered By: Dr. Gutierrez on 12-11-2022 Cholesterol in LDL [Mass/Vol] 117 mg/dL 0-130 [facility] Serum or plasma urea nitroge n measurement (mass/volume)Ordered By: Dr. Gutierrez on 12-11-2022 Urea nitrogen [Mass/Vol] 10 mg/dL 7-18 [facility] Thin prep Papanicolaou smear with manual screeningOrdered By: Dr. Gutierrez on 12-11-2022 Thin prep Papanicolaou smear with manual screening 18 U/L 15-37 [facility] Thin prep Papanicolaou smear with manual screening 5 5-15 [facility] Bacteria identified Cx Nom ( Wound)Ordered By: Dr. Gutierrez on 11-29-2022 Wound Culture Streptococcus group A [facility] Gram stain for investigation of transfusion reactionOrdered By: Dr. Gutierrez on 11-28-2022 Microscopic observation Gram stain Nom (Unsp spec) [facility] No Panel InformationOrdered By: Dr. Gutierrez on 11-27-2022 Methicillin-Resist S.aureus DNA PCR Negative Negative [facility] Staphylococcus aureus DNA de tection by probe and target amplification methodOrdered By: Dr. Gutierrez on 11-27-2022 S. aureus DNA RENATE+probe Ql (Unsp spec) Negative Negative [facility] Absolute lymphocyte countOrd ered By: Dr. Ulloa on 09-02-2022 Lymphocytes Auto (Unsp spec) [#/Vol] 1.71 10*3/uL 0.83-4.51 [facility] Basophil percentageOrdered B y: Dr. Ulloa on 09-02-2022 Basophils/100 WBC (Bld) 1.2 % 0-1 [facility] Eosinophils/100 WBC (Bld) 2.5 % 0-5 [facility] Neutrophils (Bld) [#/Vol] 3.3 10*3/uL 2.0-7.7 [facility] Neutrophils/100 WBC (Bld) 55.4 % 47-70 [facility] WBC (Bld) [#/Vol] 6.0 10*3/uL 4.4-11.0 [facility] Blood erythrocytes count (nu mber/volume)Ordered By: Dr. Ulloa on 09-02-2022 RBC (Bld) [#/Vol] 4.28 10*6/uL 4.2-5.4 [facility] Blood hemoglobin measurement (mass/volume)Ordered By: Dr. Ulloa on 09-02-2022 Hemoglobin (Bld) [Mass/Vol] 14.9 g/dL 12.0-15.0 [facility] Blood lymphocytes/100 leukoc ytesOrdered By: Dr. Ulloa on 09-02-2022 Lymphocytes/100 WBC (Bld) 28.7 % 19-41 [facility] Blood monocytes/100 leukocyt esOrdered By: Dr. Ulloa on 09-02-2022 Monocytes/100 WBC (Bld) 11.9 % 0-10 [facility] Blood platelet mean volumeOr dered By: Dr. Ulloa on 09-02-2022 Platelet mean volume (Bld) [Entitic vol] 9.4 fL 6.2-12.0 [facility] Determination of erythrocyte mean corpuscular volume (MCV)Ordered By: Dr. Ulloa on 09-02-2022 MCV (RBC) [Entitic vol] 102.8 fL 81-99 [facility] Hematocrit Auto (Bld) [Volum e fraction]Ordered By: Dr. Ulloa on 09-02-2022 Hematocrit (Bld) [Volume fraction] 44.0 % 37-47 [facility] Iron measurement (mass/mass) Ordered By: Dr. Ulloa on 09-02-2022 Iron (Unsp spec) [Mass/Mass] 45 ug/dL 50-170 [facility] Laboratory - Chemistry and C hemistry - challengeOrdered By: Dr. Ulloa on 09-02-2022 Cobalamin (Vitamin B12) [Mass/Vol] 255 pg/mL 211-911 [facility] - Hematology and Cell countsOrdered By: Dr. Ulloa on 09-02-2022 Erythrocyte distribution width (RBC) [Entitic vol] 50.5 fL 35.1-43.9 [facility] Erythrocyte distribution width (RBC) [Ratio] 13.2 % 11.6-14.6 [facility] Immature granulocytes/100 WBC (Bld) 0.300 % 0.0-0.9 [facility] Comment on above: IG% - Immature Granu locytes (promyelocytes, myelocytes and metamyelocytes) > 1% indicates that a LEFT SHIFT is Present. MCH (RBC) [Entitic mass] 34.8 pg 27.0-32.0 [facility] Nucleated RBC/100 WBC (Bld) [Ratio] 0 % 0-5 [facility] MCHC Auto (RBC) [Mass/Vol]Or dered By: Dr. Ulloa on 09-02-2022 MCHC (RBC) [Mass/Vol] 33.9 g/dL 32-36 [facility] No Panel InformationOrdered By: Dr. Ulloa on 09-02-2022 Total Iron Binding Capacity 321 ug/dL 250-450 [facility] Platelets bldOrdered By: Dr. Ulloa on 09-02-2022 Platelets (Bld) [#/Vol] 254 10*3/uL 150-450 [facility] Serum or plasma ferritin ibrahima surement (mass/volume)Ordered By: Dr. Ulloa on 09-02-2022 Ferritin [Mass/Vol] 26 ng/mL 8-252 [facility] Serum or plasma iron saturat ion measurement (mass fraction)Ordered By: Dr. Ulloa on 09-02-2022 Iron saturation [Mass fraction] 14.0 % 15.0-55.0 [facility] Absolute lymphocyte counton 06-11-2022 Lymphocytes Auto (Unsp spec) [#/Vol] 1.27 10*3/uL 0.83-4.51 [facility] Work Phone: Basophil percentageon 2021 Basophils/100 WBC (Bld) 1.3 % 0-1 [facility] Work Phone: Bilirubin [Mass/Vol] 0.40 mg/dL 0.20-1.00 [facility] Work Phone: Comment on above: For patients on eltr ombopag therapy, use of Dimension [place] TBIL is not recommended. Chloride [Moles/Vol] 109 mmol/L 98-107 [facility] Work Phone: Eosinophils/100 WBC (Bld) 2.3 % 0-5 [facility] Work Phone: Glucose [Mass/Vol] 115 mg/dL 74-106 [facility] Work Phone: Comment on above: Fasting Glucose resu lt from 100 to 125 mg/dL suggests IMPAIRED HOMEOSTASIS per A.D.A. criteria. Neutrophils (Bld) [#/Vol] 2.7 10*3/uL 2.0-7.7 [facility] Work Phone: Neutrophils/100 WBC (Bld) 57.2 % 47-70 [facility] Work Phone: Potassium [Moles/Vol] 3.9 mmol/L 3.5-5.1 [facility] Work Phone: Protein [Mass/Vol] 7.2 g/dL 6.4-8.2 [facility] Work Phone: Sodium [Moles/Vol] 141 mmol/L 136-145 [facility] Work Phone: WBC (Bld) [#/Vol] 4.7 10*3/uL 4.4-11.0 [facility] Work Phone: Blood erythrocytes count (nu mber/volume)on 06-11-2022 RBC (Bld) [#/Vol] 4.32 10*6/uL 4.2-5.4 [facility] Work Phone: Blood hemoglobin measurement (mass/volume)on 06-11-2022 Hemoglobin (Bld) [Mass/Vol] 14.9 g/dL 12.0-15.0 [facility] Work Phone: Blood lymphocytes/100 leukoc yteson 06-11-2022 Lymphocytes/100 WBC (Bld) 26.8 % 19-41 [facility] Work Phone: Blood monocytes/100 leukocyt eson 06-11-2022 Monocytes/100 WBC (Bld) 12.4 % 0-10 [facility] Work Phone: Blood platelet mean volumeon 06-11-2022 Platelet mean volume (Bld) [Entitic vol] 10.1 fL 6.2-12.0 [facility] Work Phone: Determination of erythrocyte mean corpuscular volume (MCV)on 06-11-2022 MCV (RBC) [Entitic vol] 104.6 fL 81-99 [facility] Work Phone: Hematocrit Auto (Bld) [Volum e fraction]on 06-11-2022 Hematocrit (Bld) [Volume fraction] 45.2 % 37-47 [facility] Work Phone: Laboratory - Chemistry and C hemistry - challengeon 06-11-2022 ALP [Catalytic activity/Vol] 127 U/L 45-117 [facility] Work Phone: ALT [Catalytic activity/Vol] 23 U/L 13-56 [facility] Work Phone: CO2 [Moles/Vol] 26.0 mmol/L 21.0-32.0 [facility] Work Phone: Globulin (S) [Mass/Vol] 3.6 g/dL 2.2-4.2 [facility] Work Phone: Urea nitrogen/Creatinine [Mass ratio] 15.0 mg/mg 10-20 [facility] Work Phone: Laboratory - Hematology and Cell countson 06-11-2022 Erythrocyte distribution width (RBC) [Entitic vol] 48.8 fL 35.1-43.9 [facility] Work Phone: Erythrocyte distribution width (RBC) [Ratio] 12.6 % 11.6-14.6 [facility] Work Phone: Immature granulocytes/100 WBC (Bld) 0.000 % 0.0-0.9 [facility] Work Phone: Comment on above: IG% - Immature Granu locytes (promyelocytes, myelocytes and metamyelocytes) > 1% indicates that a LEFT SHIFT is Present. MCH (RBC) [Entitic mass] 34.5 pg 27.0-32.0 [facility] Work Phone: Nucleated RBC/100 WBC (Bld) [Ratio] 0 % 0-5 [facility] Work Phone: MCHC Auto (RBC) [Mass/Vol]on 06-11-2022 MCHC (RBC) [Mass/Vol] 33.0 g/dL 32-36 [facility] Work Phone: No Panel Informationon 06-11 Estimated GFR (MDRD) Amer 102 mL/min >60 [facility] Work Phone: Comment on above: GFR Calc Estimated GFR (MDRD) Non-Af Amer 85 mL/min >60 [facility] Work Phone: Comment on above: Non- GFR Calc Thyroid Stimulating Hormone (TSH) 1.03 uIU/mL 0.358-3.74 [facility] Work Phone: Vitamin D 25-Hydroxy 41.0 ng/mL [facility] Work Phone: Comment on above: Vitamin D 25(OH) Sta tus Range Deficiency <20 ng/mL (50nmol/L) Insufficiency 20 - 30 ng/mL (50 - 75 nmol/L) Sufficiency 30 - 100 ng/mL (75 - 250 nmol/L) Toxicity >100 ng/mL (>250 nmol/L) Platelets bldon 06-11-2022 Platelets (Bld) [#/Vol] 238 10*3/uL 150-450 [facility] Work Phone: Serum or plasma albumin kamlesh urement (mass/volume)on 06-11-2022 Albumin [Mass/Vol] 3.6 g/dL 3.2-5.0 [facility] Work Phone: Serum or plasma albumin/glob ulin mass ratioon 06-11-2022 Albumin/Globulin [Mass ratio] 1.0 {ratio} 0.9-2.4 [facility] Work Phone: Serum or plasma calcium kamlesh urement (mass/volume)on 06-11-2022 Calcium [Mass/Vol] 9.1 mg/dL 8.5-10.1 [facility] Work Phone: Serum or plasma creatinine m easurement (mass/volume)on 06-11-2022 Creatinine [Mass/Vol] 0.74 mg/dL 0.55-1.02 [facility] Work Phone: Comment on above: The validity of the calculated GFR & GFRAA in patients over 70 years has not been determined. Clinical correlation is essential. Serum or plasma urea nitroge n measurement (mass/volume)on 06-11-2022 Urea nitrogen [Mass/Vol] 11 mg/dL 7-18 [facility] Work Phone: Thin prep Papanicolaou smear with manual screeningon 06-11-2022 Thin prep Papanicolaou smear with manual screening 16 U/L 15-37 [facility] Work Phone: Thin prep Papanicolaou smear with manual screening 6 5-15 [facility] Work Phone: Absolute lymphocyte counton 04-23-2022 Lymphocytes Auto (Unsp spec) [#/Vol] 1.28 10*3/uL 0.83-4.51 [facility] Work Phone: Basophil percentageon 2021 Basophils/100 WBC (Bld) 0.9 % 0-1 [facility] Work Phone: Chloride [Moles/Vol] 108 mmol/L 98-107 [facility] Work Phone: Eosinophils/100 WBC (Bld) 1.9 % 0-5 [facility] Work Phone: Glucose [Mass/Vol] 147 mg/dL 74-106 [facility] Work Phone: Comment on above: Fasting Glucose resu lt greater than or equal to 126 mg/dL suggests DIABETES MELLITUS per A.D.A. criteria. Neutrophils (Bld) [#/Vol] 3.8 10*3/uL 2.0-7.7 [facility] Work Phone: Neutrophils/100 WBC (Bld) 65.5 % 47-70 [facility] Work Phone: Potassium [Moles/Vol] 3.9 mmol/L 3.5-5.1 [facility] Work Phone: Sodium [Moles/Vol] 141 mmol/L 136-145 [facility] Work Phone: WBC (Bld) [#/Vol] 5.8 10*3/uL 4.4-11.0 [facility] Work Phone: Blood erythrocytes count (nu mber/volume)on 04-23-2022 RBC (Bld) [#/Vol] 4.01 10*6/uL 4.2-5.4 [facility] Work Phone: Blood hemoglobin measurement (mass/volume)on 04-23-2022 Hemoglobin (Bld) [Mass/Vol] 13.5 g/dL 12.0-15.0 [facility] Work Phone: Blood lymphocytes/100 leukoc yteson 04-23-2022 Lymphocytes/100 WBC (Bld) 22.0 % 19-41 [facility] Work Phone: Blood monocytes/100 leukocyt eson 04-23-2022 Monocytes/100 WBC (Bld) 9.5 % 0-10 [facility] Work Phone: Blood platelet mean volumeon 04-23-2022 Platelet mean volume (Bld) [Entitic vol] 10.3 fL 6.2-12.0 [facility] Work Phone: Determination of erythrocyte mean corpuscular volume (MCV)on 04-23-2022 MCV (RBC) [Entitic vol] 104.7 fL 81-99 [facility] Work Phone: Erythrocyte sedimentation ra mark 04-23-2022 ESR (Bld) [Velocity] 34 mm/h 0-30 [facility] Work Phone: Hematocrit Auto (Bld) [Volum e fraction]on 04-23-2022 Hematocrit (Bld) [Volume fraction] 42.0 % 37-47 [facility] Work Phone: Laboratory - Chemistry and C hemistry - challengeon 04-23-2022 CO2 [Moles/Vol] 29.0 mmol/L 21.0-32.0 [facility] Work Phone: Urea nitrogen/Creatinine [Mass ratio] 14.0 mg/mg 10-20 [facility] Work Phone: Laboratory - Hematology and Cell countson 04-23-2022 Erythrocyte distribution width (RBC) [Entitic vol] 51.4 fL 35.1-43.9 [facility] Work Phone: Erythrocyte distribution width (RBC) [Ratio] 13.2 % 11.6-14.6 [facility] [facility] Work Phone: Immature granulocytes/100 WBC (Bld) 0.200 % 0.0-0.9 [facility] Work Phone: Comment on above: IG% - Immature Granu locytes (promyelocytes, myelocytes and metamyelocytes) > 1% indicates that a LEFT SHIFT is Present. MCH (RBC) [Entitic mass] 33.7 pg 27.0-32.0 [facility] Work Phone: Nucleated RBC/100 WBC (Bld) [Ratio] 0 % 0-5 [facility] Work Phone: MCHC Auto (RBC) [Mass/Vol]on 04-23-2022 MCHC (RBC) [Mass/Vol] 32.1 g/dL 32-36 [facility] Work Phone: No Panel Informationon 04-23 Estimated GFR (MDRD) Amer 106 mL/min >60 [facility] Work Phone: Comment on above: GFR Calc Estimated GFR (MDRD) Non-Af Amer 88 mL/min >60 [facility] Work Phone: Comment on above: Non- GFR Calc Platelets bldon 04-23-2022 Platelets (Bld) [#/Vol] 272 10*3/uL 150-450 [facility] Work Phone: Serum or plasma C reactive p rotein measurement (mass/volume)on 04-23-2022 CRP [Mass/Vol] mg/L 0.0-3.0 [facility] Work Phone: Comment on above: C-Reactive Protein ( CRP) provides useful information for thediagnosis, therapy and monitoring of inflammatory processesand associated diseases. For the evaluation of Relative Riskfor Cardiovascular Disease, a High Sensitivity CRP (HSCRP)should be ordered. Serum or plasma calcium kamlesh urement (mass/volume)on 04-23-2022 Calcium [Mass/Vol] 8.9 mg/dL 8.5-10.1 [facility] Work Phone: Serum or plasma creatinine m easurement (mass/volume)on 04-23-2022 Creatinine [Mass/Vol] 0.71 mg/dL 0.55-1.02 [facility] Work Phone: Comment on above: The validity of the calculated GFR & GFRAA in patients over 70 years has not been determined. Clinical correlation is essential. Serum or plasma urea nitroge n measurement (mass/volume)on 04-23-2022 Urea nitrogen [Mass/Vol] 10 mg/dL 7-18 [facility] Work Phone: Thin prep Papanicolaou smear with manual screeningon 04-23-2022 Thin prep Papanicolaou smear with manual screening 4 5-15 [facility] Work Phone: Absolute lymphocyte counton 02-19-2022 Lymphocytes Auto (Unsp spec) [#/Vol] 1.26 10*3/uL 0.83-4.51 [facility] Work Phone: Basophil percentageon 2021 Basophils/100 WBC (Bld) 0.7 % 0-1 [facility] Work Phone: Eosinophils/100 WBC (Bld) 1.2 % 0-5 [facility] Work Phone: Neutrophils (Bld) [#/Vol] 4.1 10*3/uL 2.0-7.7 [facility] Work Phone: Neutrophils/100 WBC (Bld) 67.7 % 47-70 [facility] Work Phone: WBC (Bld) [#/Vol] 6.1 10*3/uL 4.4-11.0 [facility]: Blood erythrocytes count (nu mber/volume)on 02-19-2022 RBC (Bld) [#/Vol] 4.11 10*6/uL 4.2-5.4 [facility]: Blood hemoglobin measurement (mass/volume)on 02-19-2022 Hemoglobin (Bld) [Mass/Vol] 13.7 g/dL 12.0-15.0 [facility] Work Phone: Blood lymphocytes/100 leukoc yteson 02-19-2022 Lymphocytes/100 WBC (Bld) 20.8 % 19-41 [facility] Work Phone: Blood monocytes/100 leukocyt eson 02-19-2022 Monocytes/100 WBC (Bld) 9.4 % 0-10 [facility] Work Phone: Blood platelet mean volumeon 02-19-2022 Platelet mean volume (Bld) [Entitic vol] 10.0 fL 6.2-12.0 [facility] Work Phone: Determination of erythrocyte mean corpuscular volume (MCV)on 02-19-2022 MCV (RBC) [Entitic vol] 102.9 fL 81-99 [facility] Work Phone: Hematocrit Auto (Bld) [Volum e fraction]on 02-19-2022 Hematocrit (Bld) [Volume fraction] 42.3 % 37-47 [facility] Work Phone: Hemoglobin in reticulocytes (mass per reticulocyte)Ordered By: Dr. Ulloa on 02-19-2022 Hemoglobin (Reticulocytes) [Entitic mass] 36.3 pg 30-35 [facility] Iron measurement (mass/mass) on 02-19-2022 Iron (Unsp spec) [Mass/Mass] 31 ug/dL 50-170 [facility] Work Phone: Laboratory - Hematology and Cell countson 02-19-2022 Erythrocyte distribution width (RBC) [Entitic vol] 49.5 fL 35.1-43.9 [facility] Work Phone: Erythrocyte distribution width (RBC) [Ratio] 13.0 % 11.6-14.6 [facility] Work Phone: Immature granulocytes/100 WBC (Bld) 0.200 % 0.0-0.9 [facility] Work Phone: Comment on above: IG% - Immature Granu locytes (promyelocytes, myelocytes and metamyelocytes) > 1% indicates that a LEFT SHIFT is Present. MCH (RBC) [Entitic mass] 33.3 pg 27.0-32.0 [facility] Work Phone: Nucleated RBC/100 WBC (Bld) [Ratio] 0 % 0-5 [facility] Work Phone: MCHC Auto (RBC) [Mass/Vol]on 02-19-2022 MCHC (RBC) [Mass/Vol] 32.4 g/dL 32-36 [facility] Work Phone: No Panel InformationOrdered By: Dr. Ulloa on 02-19-2022 Immature Reticulocyte Fraction 18.80 % 3.00-15.90 [facility] Reticulocyte Count 1.83 % 0.5-1.5 [facility] No Panel Informationon 02-19 Total Iron Binding Capacity 366 ug/dL 250-450 [facility] Work Phone: Platelets bldon 02-19-2022 Platelets (Bld) [#/Vol] 246 10*3/uL 150-450 [facility] Work Phone: Serum or plasma ferritin ibrahima surement (mass/volume)on 02-19-2022 Ferritin [Mass/Vol] 28 ng/mL 8-252 [facility] Work Phone: Serum or plasma iron saturat ion measurement (mass fraction)on 02-19-2022 Iron saturation [Mass fraction] 8.5 % 15.0-55.0 [facility] Work Phone: Absolute lymphocyte counton 12-02-2021 Lymphocytes Auto (Unsp spec) [#/Vol] 1.37 10*3/uL 0.83-4.51 [facility] Work Phone: Basophil percentageon 2021 Basophils/100 WBC (Bld) 1.2 % 0-1 [facility] Work Phone: Bilirubin [Mass/Vol] 0.20 mg/dL 0.20-1.00 [facility] Work Phone: Comment on above: For patients on eltr ombopag therapy, use of Dimension [place] TBIL is not recommended. Chloride [Moles/Vol] 109 mmol/L 98-107 [facility] Work Phone: Eosinophils/100 WBC (Bld) 2.7 % 0-5 [facility] Work Phone: Glucose [Mass/Vol] 126 mg/dL 74-106 [facility] Work Phone: Comment on above: Fasting Glucose resu lt greater than or equal to 126 mg/dL suggests DIABETES MELLITUS per A.D.A. criteria. Neutrophils (Bld) [#/Vol] 3.6 10*3/uL 2.0-7.7 [facility] Work Phone: Neutrophils/100 WBC (Bld) 61.2 % 47-70 [facility] Work Phone: Potassium [Moles/Vol] 3.9 mmol/L 3.5-5.1 [facility] Work Phone: Protein [Mass/Vol] 6.6 g/dL 6.4-8.2 [facility] Work Phone: Sodium [Moles/Vol] 141 mmol/L 136-145 [facility] Work Phone: WBC (Bld) [#/Vol] 5.9 10*3/uL 4.4-11.0 [facility] Work Phone: Blood erythrocytes count (nu mber/volume)on 12-02-2021 RBC (Bld) [#/Vol] 3.63 10*6/uL 4.2-5.4 [facility] Work Phone: Blood hemoglobin measurement (mass/volume)on 12-02-2021 Hemoglobin (Bld) [Mass/Vol] 12.1 g/dL 12.0-15.0 [facility] Work Phone: Blood lymphocytes/100 leukoc yteson 12-02-2021 Lymphocytes/100 WBC (Bld) 23.1 % 19-41 [facility] Work Phone: Blood monocytes/100 leukocyt eson 12-02-2021 Monocytes/100 WBC (Bld) 11.5 % 0-10 [facility] Work Phone: Blood platelet mean volumeon 12-02-2021 Platelet mean volume (Bld) [Entitic vol] 10.2 fL 6.2-12.0 [facility] Work Phone: Determination of erythrocyte mean corpuscular volume (MCV)on 12-02-2021 MCV (RBC) [Entitic vol] 106.9 fL 81-99 [facility] Work Phone: Hematocrit Auto (Bld) [Volum e fraction]on 12-02-2021 Hematocrit (Bld) [Volume fraction] 38.8 % 37-47 [facility] Work Phone: Laboratory - Chemistry and C hemistry - challengeon 12-02-2021 ALP [Catalytic activity/Vol] 112 U/L 45-117 [facility] Work Phone: ALT [Catalytic activity/Vol] 24 U/L 13-56 [facility] Work Phone: CO2 [Moles/Vol] 28.0 mmol/L 21.0-32.0 [facility] Work Phone: Globulin (S) [Mass/Vol] 3.2 g/dL 2.2-4.2 [facility] Work Phone: Urea nitrogen/Creatinine [Mass ratio] 18.8 mg/mg 10-20 [facility] Work Phone: Laboratory - Hematology and Cell countson 12-02-2021 Erythrocyte distribution width (RBC) [Entitic vol] 50.8 fL 35.1-43.9 [facility] Work Phone: Erythrocyte distribution width (RBC) [Ratio] 12.8 % 11.6-14.6 [facility] Work Phone: Immature granulocytes/100 WBC (Bld) 0.300 % 0.0-0.9 [facility] Work Phone: Comment on above: IG% - Immature Granu locytes (promyelocytes, myelocytes and metamyelocytes) > 1% indicates that a LEFT SHIFT is Present. MCH (RBC) [Entitic mass] 33.3 pg 27.0-32.0 [facility] Work Phone: Nucleated RBC/100 WBC (Bld) [Ratio] 0 % 0-5 [facility] Work Phone: MCHC Auto (RBC) [Mass/Vol]on 12-02-2021 MCHC (RBC) [Mass/Vol] 31.2 g/dL 32-36 [facility] Work [facility]: No Panel Informationon 12-02 Estimated GFR (MDRD) Amer 110 mL/min >60 [facility] Work Phone: Comment on above: GFR Calc Estimated GFR (MDRD) Non-Af Amer 91 mL/min >60 [facility] Work Phone: Comment on above: Non- GFR Calc Thyroid Stimulating Hormone (TSH) 3.07 uIU/mL 0.358-3.74 [facility] Work Phone: Platelets bldon 12-02-2021 Platelets (Bld) [#/Vol] 323 10*3/uL 150-450 [facility] Work Phone: Serum or plasma albumin kamlesh urement (mass/volume)on 12-02-2021 Albumin [Mass/Vol] 3.4 g/dL 3.2-5.0 [facility] Work Phone: Serum or plasma albumin/glob ulin mass ratioon 12-02-2021 Albumin/Globulin [Mass ratio] 1.1 {ratio} 0.9-2.4 [facility] Work Phone: Serum or plasma calcium kamlesh urement (mass/volume)on 12-02-2021 Calcium [Mass/Vol] 8.3 mg/dL 8.5-10.1 [facility] Work Phone: Serum or plasma creatinine m easurement (mass/volume)on 12-02-2021 Creatinine [Mass/Vol] 0.69 mg/dL 0.55-1.02 [facility] Work Phone: Comment on above: The validity of the calculated GFR & GFRAA in patients over 70 years has not been determined. Clinical correlation is essential. Serum or plasma urea nitroge n measurement (mass/volume)on 12-02-2021 Urea nitrogen [Mass/Vol] 13 mg/dL 7-18 [facility] Work Phone: Thin prep Papanicolaou smear with manual screeningon 12-02-2021 Thin prep Papanicolaou smear with manual screening 13 U/L 15-37 [facility] Work Phone: Thin prep Papanicolaou smear with manual screening 4 5-15 [facility] Work Phone: Absolute lymphocyte counton 11-06-2021 Lymphocytes Auto (Unsp spec) [#/Vol] 1.05 10*3/uL 0.83-4.51 [facility] Work Phone: Basophil percentageon 2021 Basophils/100 WBC (Bld) 0.8 % 0-1 [facility] Work Phone: Eosinophils/100 WBC (Bld) 1.7 % 0-5 [facility] Work Phone: Neutrophils (Bld) [#/Vol] 3.6 10*3/uL 2.0-7.7 [facility] Work Phone: Neutrophils/100 WBC (Bld) 68.7 % 47-70 [facility] Work Phone: WBC (Bld) [#/Vol] 5.2 10*3/uL 4.4-11.0 [facility]: Blood erythrocytes count (nu mber/volume)on 11-06-2021 RBC (Bld) [#/Vol] 3.36 10*6/uL 4.2-5.4 [facility] Work Phone: Blood hemoglobin measurement (mass/volume)on 11-06-2021 Hemoglobin (Bld) [Mass/Vol] 11.6 g/dL 12.0-15.0 [facility] Work Phone: Blood lymphocytes/100 leukoc yteson 11-06-2021 Lymphocytes/100 WBC (Bld) 20.0 % 19-41 [facility] Work Phone: Blood monocytes/100 leukocyt eson 11-06-2021 Monocytes/100 WBC (Bld) 8.4 % 0-10 [facility] Work Phone: Blood platelet mean volumeon 11-06-2021 Platelet mean volume (Bld) [Entitic vol] 9.8 fL 6.2-12.0 [facility] Work Phone: Determination of erythrocyte mean corpuscular volume (MCV)on 11-06-2021 MCV (RBC) [Entitic vol] 109.5 fL 81-99 [facility] Work Phone: Hematocrit Auto (Bld) [Volum e fraction]on 11-06-2021 Hematocrit (Bld) [Volume fraction] 36.8 % 37-47 [facility] Work Phone: Iron measurement (mass/mass) on 11-06-2021 Iron (Unsp spec) [Mass/Mass] 64 ug/dL 50-170 [facility] Work Phone: Laboratory - Hematology and Cell countson 11-06-2021 Erythrocyte distribution width (RBC) [Entitic vol] 57.4 fL 35.1-43.9 [facility] Work Phone: Erythrocyte distribution width (RBC) [Ratio] 14.2 % 11.6-14.6 [facility] Work Phone: Immature granulocytes/100 WBC (Bld) 0.400 % 0.0-0.9 [facility] Work Phone: Comment on above: IG% - Immature Granu locytes (promyelocytes, myelocytes and metamyelocytes) > 1% indicates that a LEFT SHIFT is Present. MCH (RBC) [Entitic mass] 34.5 pg 27.0-32.0 [facility] Work Phone: Nucleated RBC/100 WBC (Bld) [Ratio] 0 % 0-5 [facility] Work Phone: MCHC Auto (RBC) [Mass/Vol]on 11-06-2021 MCHC (RBC) [Mass/Vol] 31.5 g/dL 32-36 [facility] Work Phone: No Panel Informationon 11-06 Total Iron Binding Capacity 343 ug/dL 250-450 [facility] Work Phone: Platelets bldon 11-06-2021 Platelets (Bld) [#/Vol] 268 10*3/uL 150-450 [facility] Work Phone: Serum or plasma ferritin ibrahima surement (mass/volume)on 11-06-2021 Ferritin [Mass/Vol] 38 ng/mL 8-252 [facility] Work Phone: Serum or plasma iron saturat ion measurement (mass fraction)on 11-06-2021 Iron saturation [Mass fraction] 18.7 % 15.0-55.0 [facility] Work Phone: Basophil percentageon 2021 Bilirubin [Mass/Vol] 0.20 mg/dL 0.20-1.00 [facility] Comment on above: For patients on eltr ombopag therapy, use of Dimension [place] TBIL is not recommended. Chloride [Moles/Vol] 112 mmol/L High 98-107 [facility] Glucose [Mass/Vol] 101 mg/dL 74-106 [facility] Comment on above: Fasting Glucose resu lt from 100 to 125 mg/dL suggests IMPAIRED HOMEOSTASIS per A.D.A. criteria. Potassium [Moles/Vol] 4.0 mmol/L 3.5-5.1 [facility] Protein [Mass/Vol] 6.7 g/dL 6.4-8.2 [facility] Sodium [Moles/Vol] 142 mmol/L 136-145 [facility] [employer] mix RAST testo n 09-17-2021 Anion gap [Moles/Vol] 3 mmol/L Low 5-15 [facility] AST [Catalytic activity/Vol] 8 U/L Low 15-37 [facility] Laboratory - Chemistry and C hemistry - challengeon 09-17-2021 ALP [Catalytic activity/Vol] 97 U/L 45-117 [facility] ALT [Catalytic activity/Vol] 17 U/L 13-56 [facility] CO2 [Moles/Vol] 27.0 mmol/L 21.0-32.0 [facility] Globulin (S) [Mass/Vol] 3.4 g/dL 2.2-4.2 [facility] Urea nitrogen/Creatinine [Mass ratio] 20.1 mg/mg High 10-20 [facility] No Panel Informationon 09-17 Estimated Creatinine Clearance Calc 89.84 ml/min [facility] Estimated GFR (MDRD) Amer 130 mL/min >60 [facility] Comment on above: GFR Calc Estimated GFR (MDRD) Non-Af Amer 108 mL/min >60 [facility] Comment on above: Non- GFR Calc Thyroid Stimulating Hormone (TSH) 2.37 uIU/mL 0.358-3.74 [facility] Serum or plasma albumin kamlesh urement (mass/volume)on 09-17-2021 Albumin [Mass/Vol] 3.3 g/dL 3.2-5.0 [facility] Serum or plasma albumin/glob ulin mass ratioon 09-17-2021 Albumin/Globulin [Mass ratio] 1.0 {ratio} 0.9-2.4 [facility] Serum or plasma calcium kamlesh urement (mass/volume)on 09-17-2021 Calcium [Mass/Vol] 8.5 mg/dL 8.5-10.1 [facility] Serum or plasma creatinine m easurement (mass/volume)on 09-17-2021 Creatinine [Mass/Vol] 0.60 mg/dL 0.55-1.02 [facility] Comment on above: The validity of the calculated GFR & GFRAA in patients over 70 years has not been determined. Clinical correlation is essential. Serum or plasma urea nitroge n measurement (mass/volume)on 09-17-2021 Urea nitrogen [Mass/Vol] 12 mg/dL 7-18 [facility] Thin prep Papanicolaou smear with manual screeningon 09-17-2021 Thin prep Papanicolaou smear with manual screening 8 U/L 15-37 [facility] Thin prep Papanicolaou smear with manual screening 3 5-15 [facility] CNPNon 08-22-2021 CNPN Telephone ([facility]) ANGELES LARIOS ([id number]) 1960 F Date Time Provider Department 08/22/21 LEONARD URENA During your visit today, we recorded the following information about you: Leonard Urena MD 08/22/2021 8:12 AM Signed Please inform patient that her capsule endoscopy showed multiple sites of possible bleeding in her small bowel. She will need a special type of endoscopy called double-balloon enteroscopy to evaluate the small intestine. This type of procedure is only done at [facility]. Please ask her to call and make an appointment with either Dr. Ge Anderson or Dr. Rogelio Wu at [facility]. Phone number is [phone]. Debbie Vallecillo 08/22/2021 9:23 AM Signed Called the patient and relayed the message the patient acknowledged that she understood. A [employer] message was also sent to the patient. Debbie Vallecillo Allergies As of Date: 08/22/2021 Noted Allergy Reaction LIPITOR (ATORVASTATIN) 06/14/2018 17 - Myalgia Date Reviewed: 07/19/2021 Reviewed by: Debo Álvarez RN - Fully Assessed Reason for Visit: pls inform pt [Other] Prescriptions as of 08/22/2021 - venlafaxine (EFFEXOR) 75 mg tablet Take by mouth. - vit C/E/Zn/coppr/lutein/z eaxan (PRESERVISION AREDS-2 ORAL) Take by mouth twice daily. - aspirin, enteric coated (ASPIRIN, ENTERIC COATED) 325 mg EC tablet Take 81 mg by mouth once daily. - ferrous sulfate 325 mg (65 mg iron) EC tablet Take 325 mg by mouth twice daily. - rosuvastatin (CRESTOR) 40 mg tablet Take 40 mg by mouth once daily. - nitroglycerin sublingual (NITROQUICK) 0.4 mg SL tablet Dissolve under the tongue as needed. - traZODone (DESYREL) 50 mg tablet Take 50 mg by mouth daily at bedtime. - clopidogrel (PLAVIX) 75 mg tablet Take 75 mg by mouth once daily. - levothyroxine (SYNTHROID) 25 mcg tablet Take 25 mcg by mouth once daily. - lisinopril (ZESTRIL, PRINIVIL) 20 mg tablet Take 20 mg by mouth once daily. - METOPROLOL TARTRATE, SHORT ACTING, 50 mg tablet Take 50 mg by mouth twice daily. Problem List As Of Date 08/22/2021 Noted Resolved Carotid stenosis, asymptomatic, bilateral [I65.*09/06/2012 Embolus of femoral artery ([facility]) [I74.3] 06/25/2017 Coronary artery disease involving [place]*06/27/2017 Essential hypertension [I10] 06/27/2017 Mixed hyperlipidemia [E78.2] 06/27/2017 Episode of recurrent major depressive disorder *05/10/2018 Acquired hypothyroidism [E03.9] 05/10/2018 GERD (gastroesophageal reflux disease) [K21.9] 05/10/2018 PVD (peripheral vascular disease) ([facility]) [I73.9] 05/10/2018 PATRICA (obstructive sleep apnea) [G47.33] 05/10/2018 Fibromyalgia [M79.7] 05/10/2018 Irritable bowel syndrome with both constipation*05/10/20 18 Diabetes mellitus (HCC) [E11.9] 05/10/2018 Iron deficiency anemia [D50.9] 05/10/2018 HTN (hypertension) [I10] CVA (cerebral vascular accident) (HCC) [I63.9] CAD (coronary artery disease) [I25.10] Obesity, Class III, BMI >= 40 [E66.01] 01/24/2019 Carotid stenosis [I65.29] 02/18/2019 Nicotine use disorder, F17.2 [F17.200] 02/20/2019 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 Murmur [R01.1] Encounter Status:Closed by DEBBIE VALLECILLO on 08/22/21 [facility] ANES POSTPROC EVALon 021 ANES POSTPROC EVAL HNO ID: [id number] Author: Manuel Solis MD Service: Anesthesiology Author Type: Physician Type: Anesthesia Postprocedure Evaluation Filed: 07/19/2021 12:21 PM Note Text: POST ANESTHESIA EVALUATION NOTE : 1960 Procedure Summary Date: 07/19/21 Room / Location: [facility] 23 / [facility] Anesthesia Start: 938 Anesthesia Stop: 1038 Procedures: EGD WITH PUSH ENTEROSCOPY (Left Abdomen) EGD INSERTION CAPSULE [5274] (Left Abdomen) EGD WITH CONTROL OF BLEEDING VIA ARGON PLASMA (Left ) EGD WITH CONTROL OF BLEEDING VIA COAGULATION BICAP (Left ) Diagnosis: Iron deficiency anemia, unspecified iron deficiency anemia type (Iron deficiency anemia, unspecified iron deficiency anemia type [D50.9]) Surgeons: Leonard Urena MD Responsible Provider: Manuel Solis MD Anesthesia Type: MAC ASA Status: 4 Anesthesia Type: MAC Last vitals Vitals Value Taken Time BP 136/71 07/19/21 1118 Temp 35.8 ?C (96.4 ?F) 07/19/21 1037 Pulse 105 07/19/21 1118 Resp 16 07/19/21 1118 SpO2 94 % 07/19/21 1118 Post Anesthesia Patient Status Patient Evaluation: bedside. Pulmonary Status: breathing comfortably on supplemental oxygen Cardiovascular Status: stable. Intraoperative Events: no significant anesthesia events Recommendation: continue current plan of care. Anesthesia Observations No Documentation SIGNATURE: Manuel Solis MD PATIENT NAME: Angeles Larios DATE: July 19, 2021 TIME: 12:21 PM CSN: [id number] [facility] ANES PRE-OPon 07-19-2021 ANES PRE-OP HNO ID: [id number] Author: Manuel Solis MD Service: Anesthesiology Author Type: Physician Type: Anesthesia Preprocedure Evaluation Filed: 07/19/2021 8:14 AM Note Text: ANESTHESIOLOGY DAY OF SURGERY NOTE : 1960 Procedure(s) (LRB): EGD WITH PUSH ENTEROSCOPY (Left) Surgeon(s): Leonard Urena MD Estimated body mass index is 35.02 kg/m? as calculated from the following: Height as of 05/06/21: 167.6 cm (5' 6). Weight as of 05/06/21: 98.4 kg (217 lb). Most recent hematocrit and potassium results: Hematocrit 33.3 06/24/2021 Potassium 3.7 02/19/2019 Relevant Problems ANESTHESIA (+) PATRICA (obstructive sleep apnea) CARDIO (+) CAD (coronary artery disease) (+) Carotid stenosis (+) Carotid stenosis, asymptomatic, bilateral (+) Coronary artery disease involving [place] coronary artery of [place] heart without angina pectoris (+) 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 extremity (HCC) (+) Embolus of femoral artery (HCC) (+) Essential hypertension (+) HTN (hypertension) (+) Murmur ENDO (+) Acquired hypothyroidism GI (+) GERD (gastroesophageal reflux disease) NEURO-PSYCH (+) CVA (cerebral vascular accident) (HCC) PULMONARY (+) PATRICA (obstructive sleep apnea) I - PHYSICAL EVALUATION AIRWAY Patient intubated: No. Mallampati: II. TM distance: >3 FB. Neck ROM: full ROM without neurological symptoms. Mouth opening: adequate. DENTAL Normal dental observations. Dental findings: teeth intact. II - ANESTHESIA PLAN ASA Score: 4 Anesthetic Plan: MAC NPO Status: adequate Monitoring plan: standard ASA. Postoperative analgesic plan: parenteral or oral opioids and per surgical service. Anesthetic Risks, Benefits, Alternatives, Personnel Discussed. Consent obtained from: patient.Patient / Surrogate agrees to blood products: blood products not planned No vitals data found for the desired time range. No current facility-administered medications on file as of 07/19/2021. Outpatient Medications as of 07/19/2021 Medication Sig - venlafaxine (EFFEXOR) 75 mg tablet Take by mouth. - vit C/E/Zn/coppr/lutein/z eaxan (PRESERVISION AREDS-2 ORAL) Take by mouth twice daily. - aspirin, enteric coated (ASPIRIN, ENTERIC COATED) 325 mg EC tablet Take 81 mg by mouth once daily. - ferrous sulfate 325 mg (65 mg iron) EC tablet Take 325 mg by mouth twice daily. - rosuvastatin (CRESTOR) 40 mg tablet Take 40 mg by mouth once daily. - nitroglycerin sublingual (NITROQUICK) 0.4 mg SL tablet Dissolve under the tongue as needed. - traZODone (DESYREL) 50 mg tablet Take 50 mg by mouth daily at bedtime. (Patient not taking: Reported on 07/15/2021 ) - clopidogrel (PLAVIX) 75 mg tablet Take 75 mg by mouth once daily. - levothyroxine (SYNTHROID) 25 mcg tablet Take 25 mcg by mouth once daily. - lisinopril (ZESTRIL, PRINIVIL) 20 mg tablet Take 20 mg by mouth once daily. - METOPROLOL TARTRATE, SHORT ACTING, 50 mg tablet Take 50 mg by mouth twice daily. I have interviewed and examined the patient. I have reviewed the medical record and/or the pre-anesthesia evaluation, pertinent labs, and test results. This contains updated information obtained within 48 hours of Surgery/Procedure. SIGNATURE: Manuel Solis MD PATIENT NAME: Angeles Larios DATE: July 19, 2021 TIME: 8:13 AM CSN: [id number] [facility] HISTORY PHYSICALon HISTORY PHYSICAL HNO ID: [id number] Author: Nohelia Tee APRN.JENNIFER Service: Anesthesiology Author Type: Nurse Practitioner Type: HANDP Filed: 07/19/2021 9:16 AM Note Text: HISTORY AND PHYSICAL EXAMINATION Angeles Larios 1960 SERVICE DATE: 07/19/2021 SERVICE TIME: 8:34 AM PRIMARY CARE PHYSICIAN: Martin Gutierrez MD SURGEON: Surgeon(s) and Role: * Leonard Urena MD - Primary ANESTHESIA: Monitored Anesthesia Care DIAGNOSIS: Iron deficiency anemia, unspecified iron deficiency anemia type [D50.9] PROCEDURE: Procedure(s): EGD WITH PUSH ENTEROSCOPY (Left) Subjective CHIEF COMPLAINT: EGD with push enteroscopy HPI: This is a 61 year old female who presents with iron deficiency anemia Had EGD and c-scope 04/2021 hx of multiple duodenal ulcers treated in past. Pt with dark stools on Fe, LD 07/15/2021, denies abdominal pain. Presents for EGD with push enteroscopy with Dr Urena. METS: Take care of self; that is eating, dressing, bathing, using the toilet (2.75 METs), REHMAN denies CP/palpitations FUNCTIONAL STATUS: Independent PAST MEDICAL HISTORY Diagnosis Date - Acquired hypothyroidism 05/10/2018 On levothyroxine - Coronary artery disease involving [place] coronary artery of [place] heart without angina pectoris 06/27/2017 ASA, plavix - CVA (cerebral vascular accident) ([facility]) 06/2012 - Embolus of femoral artery ([facility]) 06/25/2017 on right - Episode of recurrent major depressive disorder ([facility]) 05/10/2018 Duloxetine,wellbutrin , varenicline - Essential hypertension 06/27/2017 On metorpolol tartrate, lisinopril, isosorbide mononitrate ER - Fibromyalgia 05/10/2018 - GERD (gastroesophageal reflux disease) 05/10/2018 - History of echocardiogram 11/14/2019 EF 65-70%, mild MVR, mild aortic stenosis - Iron deficiency anemia 2017 - Irritable bowel syndrome with both constipation and diarrhea 05/10/2018 - Mixed hyperlipidemia 06/27/2017 - Murmur - Occlusion and stenosis of carotid artery without mention of cerebral infarction 09/06/2012 - PATRICA (obstructive sleep apnea) 05/10/2018 - PVD (peripheral vascular disease) ([facility]) 05/10/2018 - Snoring PAST SURGICAL HISTORY Procedure Laterality Date - APPENDECTOMY 1998 - COLONOSCOP W/ OR W/O BRSH SPEC 03/10/2021 - EGD W/O OR W/BRUSH/WASH 03/10/2021 - INSERT CATH,ART,PERCUT,SHORT TERM 10/13/2012 RIGHT - PAST SURGICAL HISTORY OF 2008 cardiac stents x 3 placed - PAST SURGICAL HISTORY OF 06/25/2017 Rt PRINTED CIRCUIT BOARDS 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 ETCHER embolectomy - THROMBOENDARTECTMY NECK,NECK INCIS 10/13/2012 LEFT - TUBAL LIGATION HX 1989 FAMILY HISTORY Problem Relation Age of Onset - Coronary Artery Disease Father - Heart Father - Hypertension Father - Coronary Artery Disease Brother - Coronary Artery Disease Paternal Grandfather - Heart Paternal Grandfather - Diabetes Mother - Hypertension Mother - Diabetes Brother - Heart Brother - Heart Maternal Uncle - Heart Paternal Aunt - Hypertension Brother Social History Tobacco Use - Smoking status: Current Every Day Smoker Packs/day: 2.00 Years: 45.00 Pack years: 90.00 Types: Cigarettes - Smokeless tobacco: Never Used - Tobacco comment: 0.50 ppd for the past year Substance Use Topics - Alcohol use: No Comment: quit 2017 - Drug use: No Prior to Admission medications as of 07/19/21 0902 Medication Sig Last Dose Taking venlafaxine (EFFEXOR) 75 mg tablet Take by mouth. 07/18/2021 at Unknown time Yes aspirin, enteric coated (ASPIRIN, ENTERIC COATED) 325 mg EC tablet Take 81 mg by mouth once daily. 07/19/2021 at Unknown time Yes levothyroxine (SYNTHROID) 25 mcg tablet Take 25 mcg by mouth once daily. 07/18/2021 at Unknown time Yes vit C/E/Zn/coppr/lutein/z eaxan (PRESERVISION AREDS-2 ORAL) Take by mouth twice daily. 07/15/2021 ferrous sulfate 325 mg (65 mg iron) EC tablet Take 325 mg by mouth twice daily. 07/15/2021 rosuvastatin (CRESTOR) 40 mg tablet Take 40 mg by mouth once daily. 07/17/2021 nitroglycerin sublingual (NITROQUICK) 0.4 mg SL tablet Dissolve under the tongue as needed. Unknown at Unknown time traZODone (DESYREL) 50 mg tablet Take 50 mg by mouth daily at bedtime. Patient not taking: Reported on 07/15/2021 clopidogrel (PLAVIX) 75 mg tablet Take 75 mg by mouth once daily. 07/14/2021 lisinopril (ZESTRIL, PRINIVIL) 20 mg tablet Take 20 mg by mouth once daily. 07/17/2021 at Unknown time METOPROLOL TARTRATE, SHORT ACTING, 50 mg tablet Take 50 mg by mouth twice daily. 07/17/2021 ALLERGIES Allergen Reactions - Lipitor [Atorvastat* Myalgia COMPLETE REVIEW OF SYSTEMS: GENERAL: weight loss 81lbs without effort in last 9-10 months RESPIRATORY: Negative for cough, hemoptysis, wheezing, COPD, dyspnea or shortness of breath, PATRICA-CPAP Cardiac: +HTN, CAD, +HLD, +PVD GI: See HPI : No history of dysuria, frequency or incontinence MUSCULOSKELETAL: OA hands, +fibromyalgia PSYCH: +depression ENDOCRINE:Denies diabetes, acquired hypothyroidism NEURO: hx CVA no (more content not included)... [facility] NURSING PROGon 07-19-2021 NURSING PROG HNO ID: [id number] Author: Maia Alves RN Service: Nursing Author Type: Registered Nurse Type: Nursing Progress Note Filed: 07/19/2021 10:32 AM Note Text: CAPSULE ENDOSCOPY ADMINISTRATION SERVICE DATE: 07/19/2021 SERVICE TIME: 1015 ORDERING PHYSICIAN: Dr. Urena PRE-PROCEDURE REVIEW Patient identified by name: Yes Order confirmed: Yes Consent confirmed: Yes Reviewed Capsule Endoscopy Nursing Triage/Teaching Note: Yes Confirmed NPO status: Yes Confirmed oral Iron was held for 5 days: YES, pt on IV IRON, MD aware and ok to proceed. SB CAPSULE ADMINISTRATION Patient ingested SB Capsule Endoscope (Olympus/Given) without difficulty. Lot#: [id number] Date of expiration: 09-11-2022 POST-PROCEDURE Post-capsule instructions reviewed and written information was provided to patient. Return to [facility] 07-22-21 SIGNATURE: Maia Alves RN PATIENT NAME: Angeles Larios DATE: July 19, 2021 TIME: 10:30 AM CONTACT #: [phone] [facility] NURSING PROG HNO ID: [id number] Author: Maia Alves RN Service: Nursing Author Type: Registered Nurse Type: Nursing Progress Note Filed: 07/19/2021 10:28 AM Note Text: CAPSULE ENDOSCOPY POST INGESTION PATIENT INFORMATION You may have clear liquids at 12:15pm. You may take medicine at 2:15pm. You may have regular diet at 2:15pm. Take device off at 4:15pm 07-19-21and store in a safe dry place until Thursday07-22-21. Return to procedure area at 07/22/21Thursday, at Endoscopy window on 3rd floor of managed care analyst center. DIET: Do not eat or drink for two (2) hours after you have swallowed the capsule endoscope. Two (2) hours after you have swallowed the capsule endoscope you may drink clear liquids like coffee and tea (without cream), cola drinks, apple juice, broth, and eat Jell-O or popsicles. Please do not consume anything red in color. You may also return to taking your routine medications. Four (4) hours after you have swallowed the capsule endoscope, you may return to your usual diet. ACTIVITY: You may return to your normal activities after ingesting the capsule. Please avoid vigorous exercise or any activity that would loosen the adhesive connections on your abdomen. It is okay to operate electrical equipment while undergoing your capsule endoscopy. It is not likely that any household or office equipment will interfere with this examination. You may use cell phones, computers, remote TV appliances, microwaves, [employer] players and digital cameras. Because the equipment shape, size, and location may cause concerns from security in certain locations ([place], airports, and government buildings), we recommend you avoid them until testing is complete. Museums may have similar technology for security. It is best to avoid these environments. EQUIPMENT: If one of the sensors becomes dislodged from your abdomen, simply place the adhesive side back on your abdomen in any position. Do not become concerned. The remaining sensors will transmit the pictures even with several sensors detached. RESTRICTIONS: Avoid other patients also undergoing capsule endoscopy. Although the transmission distance is limited, it is possible that your capsule images could be altered. You may not have an MRI (a test similar to an x-ray that uses magnets in the imaging process) while the capsule endoscope remains in your body. Do not schedule a capsule endoscope and an MRI for the same day. Should you require an MRI in the future and you have not seen the capsule evacuated in your stool, discuss this with your physician. An x-ray of your abdomen can show if the capsule has been evacuated. CAPSULE INFORMATION: The capsule endoscope will pass naturally in your stool. It is not necessary to retrieve or return the capsule. The images are stored in the equipment you have worn on your belt. You may flush the used capsule down the bathroom toilet for disposal. In some instances, patients have passed the capsule endoscope during stooling while the capsule is still actively blinking. Do not be alarmed if this happens to you. You may dispose of the capsule in the same manner. IRON: If you stopped taking your oral Iron for this examination, you may resume taking it after testing is completed or as directed by your physician. CONCERNS: Seek medical assistance if you develop extreme abdominal pain, bloating, fever, nausea and vomiting. These may be signs of obstruction and require medical intervention. CONTACT INFORMATION: During routine business hours (6:30a.m. - 4 p.m.) you may call the endoscopy unit . After business hours, please contact: Dr. Urena at . RETURN/REMOVAL OF EQUIPMENT: Return to the procedure area as directed by your nurse for equipment removal. [facility] OPERATIVE NOon 07-19-2021 OPERATIVE NO HNO ID: [id number] Author: Leonard Urena MD Service: Gastroenterology Author Type: Physician Type: Operative Report Filed: 07/19/2021 10:43 AM Note Text: OPERATIVE/PROCEDURE REPORT LOG ID: [id number] Surgery/Procedure Date: 07/19/2021 Incision/Procedure Start Time: 9:45 AM Incision Close/Procedure End Time: 10:28 AM Surgeon(s)/Procedural ist(s) and Eyeglass Lens Cutter(s): Surgeon(s) and Role: * Leonard Urena MD - Primary No Additional Staff Procedure(s): Esophagogastroduodeno scopy (EGD) with PillCam deployment Push enteroscopy with APC and bipolar coagulation Anesthesia: Monitored Anesthesia Care Brief History: 61F with hx of appy, chronic ROBBIN, CAD, stroke, PVD (on ASA and Plavix), prior CEA, morbid obesity, fibromyalgia,?present ing for chronic iron deficiency anemia without clear etiology. ?No overt blood loss noted. ?She has had prior investigations at [facility]. At her last EGD, oozing Dieulafoy lesions as well as AVMs were seen and treated with bipolar coagulation. Her capsule endoscopy did not evaluate the small bowel as the PillCam remained in the stomach. As such, she is here for push enteroscopy for further treatment of AVMs in the small bowel and also endoscopic deployment of the PillCam. She remains on aspirin but stopped her Plavix 5 days ago. The risks, benefits and alternatives of the procedure were explained to the patient/responsible accompanying adult. This includes, but is not limited to, bleeding, infection and a 1:1000 risk of perforation. There is also a small risk of allergic reaction(s) due to sedatives, need for hospitalization, need for transfusions, need for surgery, and likelihood of missing a polyp or neoplastic lesion. The patient understands this and is amenable to proceeding. Procedure Details: The patient was placed in the left lateral decubitus position. A bite block was placed and medications administered as above. The Olympus gastroscope was used to intubate the oropharynx and esophagus with ease. We proceeded down to the second part of the duodenum. The duodenal mucosa and bulb appeared normal. We then withdrew into the stomach and visualized mild antral erythema but normal gastric body. Retroflexion was performed and this showed a normal fundus and cardia. The squamocolumnar junction, GE junction and esophagus appeared normal. We then attached the PillCam deployment device. It was screwed into position and the PillCam itself attached. We reintubated and advanced the scope to the duodenal bulb. We then deployed the PillCam into the second part of the duodenum. The scope was then withdrawn and the patient tolerated the procedure well. We then switched to a pediatric colonoscope. This was used to intubate the esophagus and advanced through the stomach into the duodenum. As soon as we entered the second and third part of the duodenum, spontaneous bleeding was seen. There was oozing noted from a suspected Dieulafoy lesion in the second part of the duodenum. This was treated with bipolar coagulation with good effect. Another oozing Dieulafoy lesion was seen further distally in D3/D4 and treated with bipolar coagulation. Several nonbleeding AVMs were also noted. These were treated with circumferential APC probe. We visualized at least 45 cm of the small bowel distal to the ligament of Treitz. We likely reach the proximal to mid jejunum. However, due to significant spasm and patient discomfort along with transient desaturation, we had to end the procedure. The scope was then withdrawn and the patient tolerated the procedure well. Pre-Op/Pre-Procedure Diagnosis: Iron deficiency anemia, small bowel AVMs Post-Op/Post-Procedur e Diagnosis: EGD: Mild antral erythema Endoscopic deployment of PillCam into the duodenum Push enteroscopy: Normal esophagus and stomach 2 oozing Dieulafoy lesions in D2 and D4, treated with bipolar coagulation Several nonbleeding AVMs treated with APC in the duodenum and jejunum Specimens: See above EBL: None Complications: None Recommendations: Follow up pathology Await results of small bowel capsule endoscopy. She would likely need referral to [facility] for consideration of antegrade double-balloon enteroscopy for further treatment of her AVMs. I/primary surgeon/proceduralist performed the entire procedure. Leonard Urena MD MPH [facility] SIGNATURE: Leonard Urena MD MPH FR[facility] PATIENT NAME: Angeles Larios DATE: July 19, 2021 TIME: 10:37 AM PAGER/CONTACT #: [phone] [facility] CNOVon 07-15-2021 CNOV Office Visit (VASSMN ) RICANGELES Carson ([id number]) 1960 F Date Time Provider Department 07/15/21 8:45 AM HANK BROWN During your visit today, we recorded the following information about you: Pulse Blood pressure 57/minute 95/54 Hank Brown MD 07/15/2021 9:06 AM Signed DATE: 02/18/2019.SURGEON: Hank Brown M.D. SURGER: Left carotid endarterectomy with bovine pericardial patch angioplasty and completion intraoperative duplex. ? DATE OF SURGERY: 06/25/2017 SURGEON: Celine Correa MD Acute [place] IIb right lower extremity ischemia. PROCEDURE: Right common femoral embolectomy. Here for f/u of carotid ASO and?Recurrent left internal carotid 90% stenosis. We did a redo left cea after insurance denied a stent in January 2019. She has also had a femoral embolectomy in the past. She remains on anticoagulation due to her prior embolic events. [facility] V[facility] Thoracic [place] DEPARTMENT OF VASCULAR SURGERY OUTPATIENT VISIT DATE July 15, 2021 OUTPATIENT VISIT TYPE ESTABLISHED SERVICE DATE: 07/15/2021 SERVICE TIME: 8:48 AM PRIMARY CARE PHYSICIAN: Martin Gutierrez MD HISTORY OF PRESENT ILLNESS: Ms. Larios is a 61 year old female who presents today for a vascular surgery follow-up visit. PAST MEDICAL HISTORY Diagnosis Date - Acquired hypothyroidism 05/10/2018 On levothyroxine - CAD (coronary artery disease) - Coronary artery disease involving [place] coronary artery of [place] heart without angina pectoris 06/27/2017 ASA, plavix - CVA (cerebral vascular accident) ([facility]) 06/2012 - Embolus of femoral artery ([facility]) 06/25/2017 on right - Episode of recurrent major depressive disorder ([facility]) 05/10/2018 Duloxetine,wellbutrin , varenicline - Essential hypertension 06/27/2017 On metorpolol tartrate, lisinopril, isosorbide mononitrate ER - Fibromyalgia 05/10/2018 - GERD (gastroesophageal reflux disease) 05/10/2018 - HTN (hypertension) - Iron deficiency anemia 2017 - Irritable bowel syndrome with both constipation and diarrhea 05/10/2018 - Mixed hyperlipidemia 06/27/2017 - Murmur - Occlusion and stenosis of carotid artery without mention of cerebral infarction 09/06/2012 - PATRICA (obstructive sleep apnea) 05/10/2018 - PVD (peripheral vascular disease) ([facility]) 05/10/2018 - Snoring PAST SURGICAL HISTORY Procedure Laterality Date - APPENDECTOMY 1998 - COLONOSCOP W/ OR W/O BRSH SPEC 03/10/2021 - EGD W/O OR W/BRUSH/WASH 03/10/2021 - INSERT CATH,ART,PERCUT,SHORT TERM 10/13/2012 RIGHT - PAST SURGICAL HISTORY OF 2008 cardiac stents x 3 placed - PAST SURGICAL HISTORY OF 06/25/2017 Rt PRINTED CIRCUIT BOARDS STRIPPER ETCHER embolectomy - THROMBOENDARTECTMY NECK,NECK INCIS 10/13/2012 LEFT - TUBAL LIGATION HX 1989 SOCIAL HISTORY Social History Tobacco Use - Smoking status: Current Every Day Smoker Packs/day: 0.50 Years: 40.00 Pack years: 20.00 Types: Cigarettes - Smokeless tobacco: Never Used - Tobacco comment: smokes about 4 a day since mother , now on chantix Substance Use Topics - Alcohol use: No Comment: quit 2018 - Drug use: No MEDICATIONS: vit C/E/Zn/coppr/lutein/z eaxan (PRESERVISION AREDS-2 ORAL) Take by mouth twice daily. aspirin, enteric coated (ASPIRIN, ENTERIC COATED) 325 mg EC tablet Take 325 mg by mouth once daily. ferrous sulfate 325 mg (65 mg iron) EC tablet Take 325 mg by mouth twice daily. rosuvastatin (CRESTOR) 40 mg tablet Take 40 mg by mouth once daily. nitroglycerin sublingual (NITROQUICK) 0.4 mg SL tablet Dissolve under the tongue as needed. traZODone (DESYREL) 50 mg tablet Take 50 mg by mouth daily at bedtime. clopidogrel (PLAVIX) 75 mg tablet Take 75 mg by mouth once daily. levothyroxine (SYNTHROID) 25 mcg tablet Take 25 mcg by mouth once daily. lisinopril (ZESTRIL, PRINIVIL) 20 mg tablet Take 20 mg by mouth once daily. METOPROLOL TARTRATE, SHORT ACTING, 50 mg tablet Take 50 mg by mouth twice daily. ALLERGIES: ALLERGIES Allergen Reactions - Lipitor [Atorvastat* Myalgia Diagnostic tests reviewed for today's visit: Most recent imaging ELYSIA 60-79 LICA 40-59% Compared to prior study of 05/28/2020, increase noted in right ICA/CCA ratio from 3.3 to 5.6. This may suggest a greater than 70% stenosis of right internal carotid ?artery. ? RIGHT SIDE ? Common carotid artery: Plaque visualized without evidence of hemodynamically significant stenosis. ? Internal carotid artery: 60-79% stenosis. Findings may be underestimated due to calcified shadowing plaque at origin . ICA/CCA ratio is 5.5, this may suggest a greater than 70% stenosis. ? Vertebral artery: Patent and antegrade flow noted. ? Innominate artery: 50-99% stenosis. ? Subclavian artery: Plaque visualized without evidence of hemodynamically significant stenosis. ? LEFT SIDE ? Common carotid artery: Endarterectomy patch at distal measuring 0.9 cm. I (more content not included)... [facility] Blood manual differential co mment interpretation (narrative result)on 07-10-2021 Manual differential comment Rey (Bld) [Interp] SCANNED [facility] Blood polychromasia detectio n by light microscopyon 07-10-2021 Polychromasia LM Ql (Bld) 1+ [facility] Laboratory - Hematology and Cell countson 07-10-2021 Anisocytosis Ql (Bld) 2+ [facility] Macrocytes detectionon 07-10 Macrocytes Ql (Bld) 1+ [facility] Thin prep Papanicolaou smear with manual screeningon 07-10-2021 Thin prep Papanicolaou smear with manual screening 1+ [facility] CNPNon 07-01-2021 CNPN Telephone (AGGASTACC ) ANGELES LARIOS ([id number]) 1960 F Date Time Provider Department 07/01/21 LEONARD URENA AGGASTACC During your visit today, we recorded the following information about you: Debbie Vallecillo 07/01/2021 11:42 AM Signed Surgery Checklist Type: EGD W/PUSH ENTERSCOPY Admission Type: outpatient Anesthesia: MAC Date: 07/19/21 Arrival Time: 08:15 am Surgery Time: 09:45 am Location: [facility] Prep mailed to patient. Debbie Vallecillo Allergies As of Date: 07/01/2021 Noted Allergy Reaction LIPITOR (ATORVASTATIN) 06/14/2018 17 - Myalgia Date Reviewed: 05/06/2021 Reviewed by: Rufina Khan RN - Fully Assessed Reason for Visit: Future Appointment [256] Cmt: EGD w/ Push Enterscopy Prescriptions as of 07/01/2021 - vit C/E/Zn/coppr/lutein/z eaxan (PRESERVISION AREDS-2 ORAL) Take by mouth twice daily. - aspirin, enteric coated (ASPIRIN, ENTERIC COATED) 325 mg EC tablet Take 325 mg by mouth once daily. - ferrous sulfate 325 mg (65 mg iron) EC tablet Take 325 mg by mouth twice daily. - rosuvastatin (CRESTOR) 40 mg tablet Take 40 mg by mouth once daily. - nitroglycerin sublingual (NITROQUICK) 0.4 mg SL tablet Dissolve under the tongue as needed. - traZODone (DESYREL) 50 mg tablet Take 50 mg by mouth daily at bedtime. - clopidogrel (PLAVIX) 75 mg tablet Take 75 mg by mouth once daily. - levothyroxine (SYNTHROID) 25 mcg tablet Take 25 mcg by mouth once daily. - lisinopril (ZESTRIL, PRINIVIL) 20 mg tablet Take 20 mg by mouth once daily. - METOPROLOL TARTRATE, SHORT ACTING, 50 mg tablet Take 50 mg by mouth twice daily. Problem List As Of Date 07/01/2021 Noted Resolved Carotid stenosis, asymptomatic, bilateral [I65.*09/06/2012 Embolus of femoral artery (HCC) [I74.3] 06/25/2017 Coronary artery disease involving [place]*06/27/2017 Essential hypertension [I10] 06/27/2017 Mixed hyperlipidemia [E78.2] 06/27/2017 Episode of recurrent major depressive disorder *05/10/2018 Acquired hypothyroidism [E03.9] 05/10/2018 GERD (gastroesophageal reflux disease) [K21.9] 05/10/2018 PVD (peripheral vascular disease) ([facility]) [I73.9] 05/10/2018 PATRICA (obstructive sleep apnea) [G47.33] 05/10/2018 Fibromyalgia [M79.7] 05/10/2018 Irritable bowel syndrome with both constipation*05/10/20 18 Diabetes mellitus ([facility]) [E11.9] 05/10/2018 Iron deficiency anemia [D50.9] 05/10/2018 HTN (hypertension) [I10] CVA (cerebral vascular accident) ([facility]) [I63.9] CAD (coronary artery disease) [I25.10] Obesity, Class III, BMI >= 40 [E66.01] 01/24/2019 Carotid stenosis [I65.29] 02/18/2019 Nicotine use disorder, F17.2 [F17.200] 02/20/2019 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 Murmur [R01.1] Encounter Status:Closed by DEBBIE VALLECILLO on 07/01/21 [facility] CNPN Telephone (AGGASTACC ) ANGELES LARIOS ([id number]) 1960 F Date Time Provider Department 07/01/21 LEONARD URENA During your visit today, we recorded the following information about you: Leonard Urena MD 07/01/2021 7:41 AM Signed Please inform pt that her iron tests are low. Her hemoglobin is also low. We should arrange EGD with push enteroscopy to evaluate her small intestine. She would likely need more cauterization of the bleeding sites. Please arrange push enteroscopy at [facility]. Diagnosis, iron deficiency anemia Debbie Vallecillo 07/01/2021 11:56 AM Signed Appointment made for 07/19/21. Debbie Vallecillo Allergies As of Date: 07/01/2021 Noted Allergy Reaction LIPITOR (ATORVASTATIN) 06/14/2018 17 - Myalgia Date Reviewed: 05/06/2021 Reviewed by: Rufina Khan, MURTAZA - Fully Assessed Reason for Visit: Follow Up [171] Prescriptions as of 07/01/2021 - vit C/E/Zn/coppr/lutein/z eaxan (PRESERVISION AREDS-2 ORAL) Take by mouth twice daily. - aspirin, enteric coated (ASPIRIN, ENTERIC COATED) 325 mg EC tablet Take 325 mg by mouth once daily. - ferrous sulfate 325 mg (65 mg iron) EC tablet Take 325 mg by mouth twice daily. - rosuvastatin (CRESTOR) 40 mg tablet Take 40 mg by mouth once daily. - nitroglycerin sublingual (NITROQUICK) 0.4 mg SL tablet Dissolve under the tongue as needed. - traZODone (DESYREL) 50 mg tablet Take 50 mg by mouth daily at bedtime. - clopidogrel (PLAVIX) 75 mg tablet Take 75 mg by mouth once daily. - levothyroxine (SYNTHROID) 25 mcg tablet Take 25 mcg by mouth once daily. - lisinopril (ZESTRIL, PRINIVIL) 20 mg tablet Take 20 mg by mouth once daily. - METOPROLOL TARTRATE, SHORT ACTING, 50 mg tablet Take 50 mg by mouth twice daily. Problem List As Of Date 07/01/2021 Noted Resolved Carotid stenosis, asymptomatic, bilateral [I65.*09/06/2012 Embolus of femoral artery (HCC) [I74.3] 06/25/2017 Coronary artery disease involving [place] sam[place]*06/27/2017 Essential hypertension [I10] 06/27/2017 Mixed hyperlipidemia [E78.2] 06/27/2017 Episode of recurrent major depressive disorder *05/10/2018 Acquired hypothyroidism [E03.9] 05/10/2018 GERD (gastroesophageal reflux disease) [K21.9] 05/10/2018 PVD (peripheral vascular disease) ([facility]) [I73.9] 05/10/2018 PATRICA (obstructive sleep apnea) [G47.33] 05/10/2018 Fibromyalgia [M79.7] 05/10/2018 Irritable bowel syndrome with both constipation*05/10/20 18 Diabetes mellitus (HCC) [E11.9] 05/10/2018 Iron deficiency anemia [D50.9] 05/10/2018 HTN (hypertension) [I10] CVA (cerebral vascular accident) (HCC) [I63.9] CAD (coronary artery disease) [I25.10] Obesity, Class III, BMI >= 40 [E66.01] 01/24/2019 Carotid stenosis [I65.29] 02/18/2019 Nicotine use disorder, F17.2 [F17.200] 02/20/2019 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 Murmur [R01.1] Encounter Status:Closed by DEBBIE VALLECILLO on 07/01/21 Normal [facility] CBC and Differentialon 06-24 Abs Baso 0.07 k/uL Normal <0.11 [facility] Comment on above: Performed By: #### ESTRELLA HERNANDEZ FERR #### [facility] [employer] [address] [place], [place] [address] Abs Clinch 0.57 k/uL Normal <0.87 [facility] Comment on above: Performed By: #### ESTRELLA HERNANDEZ FERR #### [facility] [employer] [address] [place] [address] Abs Neut 4.07 k/uL Normal 1.45-7.50 [facility] Comment on above: Performed By: #### Rosemary SMITH CBCDIF, FERR #### [place] [address] Absolute nRBC <0.01 Normal <0.01 [facility] Comment on above: Performed By: #### Rosemary SMITH, CBCDIF, FERR #### [place] [address] Basophils/100 WBC (Bld) 1.1 % Normal [facility] Comment on above: Performed By: #### Rosemary SMITH, CBCDIF, FERR #### [place] [address] DTYPE Auto Diff Normal [facility] Comment on above: Performed By: #### Rosemary SMITH CBCDIF, FERR #### [place] [address] Eosinophils (Bld) [#/Vol] 0.12 10*3/uL Normal <0.46 [facility] Comment on above: Performed By: #### Rosemary SMITH, CBCDIF, FERR #### [place] [address] Eosinophils/100 WBC (Bld) 1.9 % Normal [facility] Comment on above: Performed By: #### Rosemary SMITH, CBCDIF, FERR #### [place] [address] Erythrocyte distribution width (RBC) [Ratio] 17.7 % High 11.5-15.0 [facility] Comment on above: Performed By: #### Rosemary SMITH, CBCDIF, FERR #### [place] [address] Hematocrit (Bld) [Volume fraction] 33.3 % Low 36.0-46.0 [facility] Comment on above: Performed By: #### Rosemary SMITH, CBCDIF, FERR #### [place] [id number] [place] [address] Hemoglobin (Bld) [Mass/Vol] 9.2 g/dL Low 11.5-15.5 [facility] Comment on above: Performed By: #### Rosemary SMITH, CBCDIF, FERR #### [place] [address] Lymphocytes (Bld) [#/Vol] 1.41 10*3/uL Normal 1.00-4.00 [facility] Comment on above: Performed By: #### Rosemary SMITH, CBCDIF, FERR #### [place] [address] Lymphocytes/100 WBC (Bld) 22.6 % Normal [facility] Comment on above: Performed By: #### Rosemary SMITH, CBCDIF, FERR #### [place] [address] MCH 28.9 pG Normal 26.0-34.0 [facility] Comment on above: Performed By: #### Rosemary SMITH, CBCDIF, FERR #### [place] [id number] MCHC (RBC) [Mass/Vol] 27.6 g/dL Low 30.5-36.0 [facility] Comment on above: Performed By: #### Rosemary SMITH, CBCDIF, FERR #### [place] [id number] [place] [address] MCV (RBC) [Entitic vol] 104.7 fL High 80.0-100.0 [facility] Comment on above: Performed By: #### Rosemary SMITH, CBCDIF, FERR #### [place] [address] Monocytes/100 WBC (Bld) 9.1 % Normal [facility] Comment on above: Performed By: #### Rosemary SMITH, CBCDIF, FERR #### [place] [id number] [place] [address] Neutrophils/100 WBC (Bld) 65.3 % Normal [facility] Comment on above: Performed By: #### Rosemary SMITH, CBCDIF, FERR #### [place] [address] NRBCs 0.0 /100 WBC Normal 0 [facility] Comment on above: Performed By: #### Rosemary SMITH CBCDIF, FERR #### [place] [address] Platelet mean volume (Bld) [Entitic vol] 11.3 fL Normal 9.0-12.7 [facility] Comment on above: Performed By: #### Rosemary SMITH CBCDIF, FERR #### [place] [address] Platelets (Bld) [#/Vol] 296 10*3/uL Normal 150-400 [facility] Comment on above: Performed By: #### Rosemary SMITH, CBCDIF, FERR #### [place] [address] RBC (Bld) [#/Vol] 3.18 10*6/uL Low 3.90-5.20 [facility] Comment on above: Performed By: #### Rosemary SMITH, CBCDIF, FERR #### [place] [address] WBC (Bld) [#/Vol] 6.24 10*3/uL Normal 3.70-11.00 [facility] Comment on above: Performed By: #### Rosemary SMITH, CBCDIF, FERR #### [place] [address] Ferritinon 06-24-2021 Ferritin [Mass/Vol] 91.7 ng/mL Normal 14.7-205.1 [facility] Comment on above: Performed By: #### I GIOVANNI, CBCDIF, FERR #### [facility] [address] [place], [place] [address] Iron and TIBCon 06-24-2021 Iron [Mass/Vol] 30 ug/dL Low 41-186 [facility] Comment on above: Performed By: #### I GIOVANNI, CBCDIF, FERR #### [facility] [address] [place] [address] TIBC 406 ug/dL High 232-386 [facility] Comment on above: Performed By: #### I GIOVANNI, CBCDIF, FERR #### [facility] [address] [place] [id number] Transferrin Saturatn 7 % Low 15-57 [facility] Comment on above: Performed By: #### I GIOVANNI, CBCDIF, FERR #### [facility] [employer] [address] [place] [phone] CNPMarcie 06-12-2021 MADELYN Telephone (WINNIE) ANGELES LARIOS ([id number]) 1960 F Date Time Provider Department 06/12/21 HANK BROWN During your visit today, we recorded the following information about you: Tete Couch Sec 06/12/2021 12:40 PM Signed Ms. Larios needs to reschedule her 06/17/[address] Brown at least 10 days out. Catherine Couch Top Loader Leonie Reagan [facility] 06/14/2021 10:39 AM Signed Angeles Larios appointments have been scheduled accordingly. Patient has been notified via telephone and appointment schedule sent via US Mail Scheduled by Lamin Reagan Coord June 14, 2021 10:38 AM Allergies As of Date: 06/12/2021 Noted Allergy Reaction LIPITOR (ATORVASTATIN) 06/14/2018 17 - Myalgia Date Reviewed: 05/06/2021 Reviewed by: Rufina Khan RN - Fully Assessed Reason for Visit: Appointment [186] Prescriptions as of 06/14/2021 - vit C/E/Zn/coppr/lutein/z eaxan (PRESERVISION AREDS-2 ORAL) Take by mouth twice daily. - aspirin, enteric coated (ASPIRIN, ENTERIC COATED) 325 mg EC tablet Take 325 mg by mouth once daily. - ferrous sulfate 325 mg (65 mg iron) EC tablet Take 325 mg by mouth twice daily. - rosuvastatin (CRESTOR) 40 mg tablet Take 40 mg by mouth once daily. - nitroglycerin sublingual (NITROQUICK) 0.4 mg SL tablet Dissolve under the tongue as needed. - traZODone (DESYREL) 50 mg tablet Take 50 mg by mouth daily at bedtime. - clopidogrel (PLAVIX) 75 mg tablet Take 75 mg by mouth once daily. - levothyroxine (SYNTHROID) 25 mcg tablet Take 25 mcg by mouth once daily. - lisinopril (ZESTRIL, PRINIVIL) 20 mg tablet Take 20 mg by mouth once daily. - METOPROLOL TARTRATE, SHORT ACTING, 50 mg tablet Take 50 mg by mouth twice daily. Problem List As Of Date 06/12/2021 Noted Resolved Carotid stenosis, asymptomatic, bilateral [I65.*09/06/2012 Embolus of femoral artery (HCC) [I74.3] 06/25/2017 Coronary artery disease involving [place]*06/27/2017 Essential hypertension [I10] 06/27/2017 Mixed hyperlipidemia [E78.2] 06/27/2017 Episode of recurrent major depressive disorder *05/10/2018 Acquired hypothyroidism [E03.9] 05/10/2018 GERD (gastroesophageal reflux disease) [K21.9] 05/10/2018 PVD (peripheral vascular disease) ([facility]) [I73.9] 05/10/2018 PATRICA (obstructive sleep apnea) [G47.33] 05/10/2018 Fibromyalgia [M79.7] 05/10/2018 Irritable bowel syndrome with both constipation*05/10/20 18 Diabetes mellitus (HCC) [E11.9] 05/10/2018 Iron deficiency anemia [D50.9] 05/10/2018 HTN (hypertension) [I10] CVA (cerebral vascular accident) (HCC) [I63.9] CAD (coronary artery disease) [I25.10] Obesity, Class III, BMI >= 40 [E66.01] 01/24/2019 Carotid stenosis [I65.29] 02/18/2019 Nicotine use disorder, F17.2 [F17.200] 02/20/2019 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 Murmur [R01.1] Encounter Status:Closed by TETE WASHINGTON on 06/12/21 Normal [facility] Laboratory - Chemistry and C hemistry - challengeon 05-07-2021 Cobalamin (Vitamin B12) [Mass/Vol] 238 pg/mL 211-911 [facility] Work Phone: Serum or plasma folate measu rement (mass/volume)on 05-07-2021 Folate [Mass/Vol] 13.90 ng/mL 3.1-55.4 [facility] ANES POSTPROC EVALon 021 ANES POSTPROC EVAL HNO ID: [id number] Author: Eliu Bernal MD Service: ? Author Type: Physician Type: Anesthesia Postprocedure Evaluation Filed: 05/07/2021 1:41 PM Note Text: POST ANESTHESIA EVALUATION NOTE : 1960 Procedure Summary Date: 05/06/21 [facility] Start: 1626 Anesthesia Stop: 1700 Procedures: EGD (Left Esophagus) COLONOSCOPY (Left Bowel Colon) EGD INSERTION CAPSULE [5274] Patient ingesting capsule in recovery post endoscopic procedure (Left Abdomen) EGD WITH BIOPSY (Left Abdomen) EGD WITH CONTROL OF BLEEDING VIA COAGULATION BICAP (Left ) Diagnosis: Iron deficiency anemia, unspecified iron deficiency anemia type (Iron deficiency anemia, unspecified iron deficiency anemia type [D50.9]) Surgeons: Leonard Urena MD Responsible Provider: Eliu Bernal MD Anesthesia Type: MAC ASA Status: 3 Anesthesia Type: MAC Last vitals Vitals Value Taken Time BP 123/90 05/06/21 1716 Temp 36.3 ?C (97.3 ?F) 05/06/21 1700 Pulse 70 05/06/21 1716 Resp 16 05/06/21 1716 SpO2 97 % 05/06/21 1716 Post Anesthesia Patient Status Patient Evaluation: PACU. PACU/ICU Patient Condition: stable. Anticipated Disposition: phase 2 then home. Neurological Status: aware and responsive. Pulmonary Status: breathing comfortably on room air Airway Control: returned to baseline unsupported. Cardiovascular Status: stable. Pain Management: clinically adequate Postoperative Hydration: acceptable. Intraoperative Events: no significant anesthesia events Post Operative Nausea/Vomiting Status: no significant post operative nausea or vomiting Anesthetic Observations: Recommendation: continue current plan of care. No complications documented. SIGNATURE: Eliu Bernal MD PATIENT NAME: Angeles Larios DATE: May 07, 2021 TIME: 1:40 PM CSN: [id number] [facility] ANES PRE-OPon 05-06-2021 ANES PRE-OP HNO ID: [id number] Author: Eliu Bernal MD Service: ? Author Type: Physician Type: Anesthesia Preprocedure Evaluation Filed: 05/06/2021 2:44 PM Note Text: ANESTHESIOLOGY DAY OF SURGERY NOTE : 1960 Procedure(s) (LRB): EGD (Left) COLONOSCOPY (Left) Diagnosis: Iron deficiency anemia, unspecified iron deficiency anemia type [D50.9] Pre-op diagnosis: Iron deficiency anemia, unspecified iron deficiency anemia type EGD INSERTION CAPSULE [5274] (Left) Surgeon(s): Leonard Urena MD Estimated body mass index is 35.02 kg/m? as calculated from the following: Height as of 04/16/21: 167.6 cm (5' 6). Weight as of 04/16/21: 98.4 kg (217 lb). Most recent hematocrit and potassium results: Hematocrit 33.6 04/16/2021 Potassium 3.7 02/19/2019 TTE 10/2019 CONCLUSIONS: - Technically difficult exam due to body habitus. - Exam indication: Carotid Stenosis - The left ventricle is normal in size. There is mild left ventricular hypertrophy. Left ventricular systolic function is normal. EF = 65 ? 5% (2D biplane) Normal left ventricular diastolic function. - The right ventricle is normal in size. Right ventricular systolic function is normal. - There is mild (1+) mitral regurgitation. - There is mild aortic stenosis, peak/mean gradients 20/10 mmHg, AMADO by continuity ?1.54cm2, DI 0.44. - Estimated right ventricular systolic pressure is likely underestimated due to a weak or incomplete tricuspid regurgitation signal and is, at least, 15 mmHg consistent with normal pulmonary artery pressures. Estimated right atrial pressure ?is 3 mmHg based on IVC assessment. - The patient has not had a prior CC echocardiographic exam for?comparison. CAD s/p PCI DANILO 2012 on ASA/Plavix/BB Tobacco abuse HTN GERD Fibro PATRICA CVA ? Compared to prior study of 10/24/2019, innominate plaque does not appear mobile. RIGHT SIDE Common carotid artery: Plaque visualized without evidence of hemodynamically significant stenosis. Internal carotid artery: 60-79% stenosis. Vertebral artery: Patent and antegrade flow noted. Innominate artery: 50-99% stenosis. Subclavian artery: Plaque visualized without evidence of hemodynamically significant stenosis. LEFT SIDE Common carotid artery: Plaque visualized without evidence of hemodynamically significant stenosis. Endarterectomy patch at distal measuring 0.9 cm. Internal carotid artery: Elevated velocities noted but no plaque is visualized; likely normal study. External carotid artery: Elevated velocities and plaque noted. Vertebral artery: Patent and antegrade flow noted. Relevant Problems ANESTHESIA (+) PATRICA (obstructive sleep apnea) CARDIO (+) CAD (coronary artery disease) (+) Carotid stenosis (+) Carotid stenosis, asymptomatic, bilateral (+) Coronary artery disease involving [place] coronary artery of [place] heart without angina pectoris (+) 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 extremity (HCC) (+) Embolus of femoral artery (HCC) (+) Essential hypertension (+) HTN (hypertension) ENDO (+) Acquired hypothyroidism GI (+) GERD (gastroesophageal reflux disease) NEURO-PSYCH (+) CVA (cerebral vascular accident) (HCC) PULMONARY (+) PATRICA (obstructive sleep apnea) I - PHYSICAL EVALUATION AIRWAY Patient intubated: No. Mallampati: I. TM distance: >3 FB. Neck ROM: full ROM without neurological symptoms. Mouth opening: adequate. Short neck: no. Thick neck: no DENTAL Normal dental observations. Additional exam findings: no II - ANESTHESIA PLAN ASA Score: 3 Anesthetic Plan: MAC NPO Status: adequate Administration of chronic beta linn medication planned. Monitoring plan: standard ASA. Postoperative analgesic plan: parenteral or oral opioids. Anesthetic Risks, Benefits, Alternatives, Personnel Discussed. Consent obtained from: patient.Patient / Surrogate agrees to blood products: Yes Significant changes in the patient condition since the History and Physical, not otherwise documented in primary service progress note: no. Potential Anesthesia issues that may suggest increased risk of complications or contraindication to planned procedure: none. No vitals data found for the desired time range. No current facility-administered medications on file as of 05/06/2021. Outpatient Medications as of 05/06/2021 Medication Sig - vit C/E/Zn/coppr/lutein/z eaxan (PRESERVISION AREDS-2 ORAL) Take by mouth twice daily. - aspirin, enteric coated (ASPIRIN, ENTERIC COATED) 325 mg EC tablet Take 325 mg by mouth once daily. - ferrous sulfate 325 mg (65 mg iron) EC tablet Take 325 mg by mouth twice daily. - rosuvastatin (CRESTOR) 40 mg tablet Take 40 mg by mouth once daily. - nitroglycerin sublingual (NITROQUICK) 0.4 mg SL tablet Dissolve under the tongue as needed. - traZODone (DESYREL) 50 mg tablet Take 50 mg by mouth daily at bedtime. - clopidogrel (PLAVIX) 75 mg tablet Take 75 mg by mouth (more content not included)... [facility] HISTORY PHYSICALon HISTORY PHYSICAL HNO ID: [id number] Author: Lisseth Uribe APRN.[facility] Service: Anesthesiology Author Type: Nurse Practitioner Type: HANDP Filed: 05/06/2021 3:32 PM Note Text: HISTORY AND PHYSICAL EXAMINATION SERVICE DATE: 05/06/2021 SERVICE TIME: 12:29 PM Angeles Larios [id number] PRIMARY CARE PHYSICIAN: Martin Gutierrez MD SURGEON: Surgeon(s) and Role: * Leonard Urena MD - Primary ANESTHESIA: Monitored Anesthesia Care DIAGNOSIS: Iron deficiency anemia, unspecified iron deficiency anemia type [D50.9] PROCEDURE: Procedure(s): EGD (Left) COLONOSCOPY (Left) EGD INSERTION CAPSULE [5274] (Left) Subjective CHIEF COMPLAINT: Iron deficiency anemia, unspecified iron deficiency anemia type [D50.9] HPI: Patient presents to [facility] for the above procedure. Patient has a h/o anemia and GERD. She states she was hospitalized in [place] in 02/2021 for fatigue and lethargy. States she had blood transfusions on 03/09/21 x2. They also did a colonoscopy and EGD at that time which were negative. Reports occasional nausea, does have prescription medications for symptom control. Denies any nausea today, denies any pain today, denies any recent fevers or chills. Patient denies any V/D or constipation. Denies any abdominal pain or any blood with BMs. Patient denies any other problems at this time. Denies any family history of Colon cancer or other Gastric CA. Patient agreed to planned procedure. PAST MEDICAL HISTORY Diagnosis Date - Acquired hypothyroidism 05/10/2018 On levothyroxine - CAD (coronary artery disease) - Coronary artery disease involving [place] coronary artery of [place] heart without angina pectoris 06/27/2017 ASA, plavix - CVA (cerebral vascular accident) ([facility]) 06/2012 - Embolus of femoral artery ([facility]) 06/25/2017 on right - Episode of recurrent major depressive disorder ([facility]) 05/10/2018 Duloxetine,wellbutrin , varenicline - Essential hypertension 06/27/2017 On metorpolol tartrate, lisinopril, isosorbide mononitrate ER - Fibromyalgia 05/10/2018 - GERD (gastroesophageal reflux disease) 05/10/2018 - HTN (hypertension) - Iron deficiency anemia 2017 - Irritable bowel syndrome with both constipation and diarrhea 05/10/2018 - Mixed hyperlipidemia 06/27/2017 - Occlusion and stenosis of carotid artery without mention of cerebral infarction 09/06/2012 - PATRICA (obstructive sleep apnea) 05/10/2018 - PVD (peripheral vascular disease) ([facility]) 05/10/2018 - Snoring PAST SURGICAL HISTORY Procedure Laterality Date - APPENDECTOMY 1998 - COLONOSCOP W/ OR W/O BRSH SPEC 03/10/2021 - EGD W/O OR W/BRUSH/WASH 03/10/2021 - INSERT CATH,ART,PERCUT,SHORT TERM 10/13/2012 RIGHT - PAST SURGICAL HISTORY OF 2008 cardiac stents x 3 placed - PAST SURGICAL HISTORY OF 06/25/2017 Rt [employer]IP[employer]ER embolectomy - THROMBOENDARTECTMY NECK,NECK INCIS 10/13/2012 LEFT - TUBAL LIGATION HX 1990 FAMILY HISTORY Problem Relation Age of Onset - Coronary Artery Disease Father - Heart Father - Hypertension Father - Coronary Artery Disease Brother - Coronary Artery Disease Paternal Grandfather - Heart Paternal Grandfather - Diabetes Mother - Hypertension Mother - Diabetes Brother - Heart Brother - Heart Maternal Uncle - Heart Paternal Aunt - Hypertension Brother Social History Tobacco Use - Smoking status: Current Every Day Smoker Packs/day: 0.50 Years: 40.00 Pack years: 20.00 Types: Cigarettes - Smokeless tobacco: Never Used - Tobacco comment: smokes about 4 a day since mother , now on chantix Substance Use Topics - Alcohol use: No Comment: quit 2017 - Drug use: No Prior to Admission medications as of 05/06/21 1454 Medication Sig Last Dose Taking vit C/E/Zn/coppr/lutein/z eaxan (PRESERVISION AREDS-2 ORAL) Take by mouth twice daily. 05/01/2021 at Unknown time Yes aspirin, enteric coated (ASPIRIN, ENTERIC COATED) 325 mg EC tablet Take 325 mg by mouth once daily. 05/05/2021 at Unknown time Yes ferrous sulfate 325 mg (65 mg iron) EC tablet Take 325 mg by mouth twice daily. 05/01/2021 at Unknown time Yes clopidogrel (PLAVIX) 75 mg tablet Take 75 mg by mouth once daily. 05/01/2021 at Unknown time Yes lisinopril (ZESTRIL, PRINIVIL) 20 mg tablet Take 20 mg by mouth once daily. 05/05/2021 at Unknown time Yes METOPROLOL TARTRATE, SHORT ACTING, 50 mg tablet Take 50 mg by mouth twice daily. 05/05/2021 at Unknown time Yes rosuvastatin (CRESTOR) 40 mg tablet Take 40 mg by mouth once daily. Unknown at Unknown time nitroglycerin sublingual (NITROQUICK) 0.4 mg SL tablet Dissolve under the tongue as needed. traZODone (DESYREL) 50 mg tablet Take 50 mg by mouth daily at bedtime. Unknown at Unknown time levothyroxine (SYNTHROID) 25 mcg tablet Take 25 mcg by mouth once daily. Unknown at Unknown time ALLERGIES Allergen Reactions - Lipitor [Atorvastat* Myalgia COMPLETE REVIEW OF SYSTEMS: Pain: ASSESSMENT TOOL: Verbal General: Denies fever, chills, and unexpected verenice (more content not included)... [facility] NURSING PROGon 05-06-2021 NURSING PROG HNO ID: [id number] Author: Elvira Rojo RN Service: Nursing Author Type: Registered Nurse Type: Nursing Progress Note Filed: 05/06/2021 6:12 PM Note Text: CAPSULE ENDOSCOPY POST INGESTION PATIENT INFORMATION You may have clear liquids at 1920. You may take medicine at 0. You may have regular diet at 2119. Return to procedure area at 05/07/21. DIET: Do not eat or drink for two (2) hours after you have swallowed the capsule endoscope. Two (2) hours after you have swallowed the capsule endoscope you may drink clear liquids like coffee and tea (without cream), cola drinks, apple juice, broth, and eat Jell-O or popsicles. Please do not consume anything red in color. You may also return to taking your routine medications. Four (4) hours after you have swallowed the capsule endoscope, you may return to your usual diet. ACTIVITY: You may return to your normal activities after ingesting the capsule. Please avoid vigorous exercise or any activity that would loosen the adhesive connections on your abdomen. It is okay to operate electrical equipment while undergoing your capsule endoscopy. It is not likely that any household or office equipment will interfere with this examination. You may use cell phones, computers, remote TV appliances, microwaves, MP3 players and digital cameras. Because the equipment shape, size, and location may cause concerns from security in certain locations ([place], airports, and government buildings), we recommend you avoid them until testing is complete. Museums may have similar technology for security. It is best to avoid these environments. EQUIPMENT: If one of the sensors becomes dislodged from your abdomen, simply place the adhesive side back on your abdomen in any position. Do not become concerned. The remaining sensors will transmit the pictures even with several sensors detached. RESTRICTIONS: Avoid other patients also undergoing capsule endoscopy. Although the transmission distance is limited, it is possible that your capsule images could be altered. You may not have an MRI (a test similar to an x-ray that uses magnets in the imaging process) while the capsule endoscope remains in your body. Do not schedule a capsule endoscope and an MRI for the same day. Should you require an MRI in the future and you have not seen the capsule evacuated in your stool, discuss this with your physician. An x-ray of your abdomen can show if the capsule has been evacuated. CAPSULE INFORMATION: The capsule endoscope will pass naturally in your stool. It is not necessary to retrieve or return the capsule. The images are stored in the equipment you have worn on your belt. You may flush the used capsule down the bathroom toilet for disposal. In some instances, patients have passed the capsule endoscope during stooling while the capsule is still actively blinking. Do not be alarmed if this happens to you. You may dispose of the capsule in the same manner. IRON: If you stopped taking your oral Iron for this examination, you may resume taking it after testing is completed or as directed by your physician. CONCERNS: Seek medical assistance if you develop extreme abdominal pain, bloating, fever, nausea and vomiting. These may be signs of obstruction and require medical intervention. CONTACT INFORMATION: During routine business hours (6:30a.m. - 4 p.m.) you may call the [facility] at [phone]. After business hours, please contact: Dr. Urena. RETURN/REMOVAL OF EQUIPMENT: Return to the procedure area as directed by your nurse for equipment removal. Nursing Progress Note Patient Name: Angeles Larios [facility] Daily Note: This note was completed by: Elvira Ash [facility] NURSING PROG HNO ID: [id number] Author: Elvira Rojo RN Service: Nursing Author Type: Registered Nurse Type: Nursing Progress Note Filed: 05/06/2021 6:11 PM Note Text: CAPSULE ENDOSCOPY ADMINISTRATION SERVICE DATE: 05/06/2021 SERVICE TIME: 1720 ORDERING PHYSICIAN: Dr. Urena PRE-PROCEDURE REVIEW Patient identified by name: Yes Order confirmed: Yes Consent confirmed: Yes Reviewed Capsule Endoscopy Nursing Triage/Teaching Note: Yes Confirmed NPO status: Yes Confirmed oral Iron was held for 5 days: Yes SB CAPSULE ADMINISTRATION Patient ingested SB Capsule Endoscope (Olympus/Given) without difficulty. Lot#: [id number] Date of expiration: 08/31/2022 POST-PROCEDURE Post-capsule instructions reviewed and written information was provided to patient. Patient will return equipment to [facility]. SIGNATURE: Elvira Rojo RN PATIENT NAME: Angeles Larios DATE: May 06, 2021 TIME: 6:08 PM CONTACT #: [phone] Nursing Progress Note Patient Name: Angeles Larios [facility] [facility] Daily Note: This note was completed by: Elvira Rojo [facility] OPERATIVE NOon 05-06-2021 OPERATIVE NO HNO ID: [id number] Author: Leonard Urena MD Service: Gastroenterology Author Type: Physician Type: Operative Report Filed: 05/06/2021 5:16 PM Note Text: OPERATIVE/PROCEDURE REPORT LOG ID: [id number] Surgery/Procedure Date: 05/06/2021 Incision/Procedure Start Time: 4:34 PM Incision Close/Procedure End Time: 4:54 PM Surgeon(s)/Procedural ist(s) and Eyeglass Lens Cutter(s): Surgeon(s) and Role: * Leonard Urena MD - Primary No Additional Staff Procedure(s): Esophagogastroduodeno scopy (EGD) with biopsy and bipolar coagulation Colonoscopy with biopsy Anesthesia: Monitored Anesthesia Care Brief History: 61F with hx of appy, chronic ROBBIN, CAD, stroke, PVD (on ASA and Plavix), prior CEA, morbid obesity, fibromyalgia, presenting for chronic iron deficiency anemia without clear etiology. No overt blood loss noted. She has had prior investigations at [facility]. The risks, benefits and alternatives of the procedure were explained to the patient/responsible accompanying adult. This includes, but is not limited to, bleeding, infection and a 1:1000 risk of perforation. There is also a small risk of allergic reaction(s) due to sedatives, need for hospitalization, need for transfusions, need for surgery, and likelihood of missing a polyp or neoplastic lesion. The patient understands this and is amenable to proceeding. Procedure Details: The patient was placed in the left lateral decubitus position. A bite block was placed and medications administered as above. The Olympus gastroscope was used to intubate the oropharynx and esophagus with ease. We proceeded down to the second part of the duodenum. Multiple superficial ulcers were seen in the bulb as well as D2 in keeping with NSAID related ulceration. There 1 site of active oozing noted. It to be a Dieulafoy lesion in D2, which was treated with bipolar coagulation. Another site was a friable AVM which was also treated with bipolar. Biopsies were taken to rule out celiac disease. We then withdrew into the stomach and visualized moderate antral erosions but normal gastric body. Biopsies were taken to rule out H. Pylori. Retroflexion was performed and this showed a normal fundus and cardia with a small hiatal hernia. The squamocolumnar junction, GE junction and esophagus appeared normal. The scope was then withdrawn and the patient tolerated the procedure well. The patient was then turned around for the colonoscopy. A digital rectal exam was performed and this was normal. The Olympus colonoscope was introduced into the rectum and advanced to the cecum. The procedure was not technically difficult. The cecum was identified by the appendiceal orifice and the ileocecal valve. The bowel preparation was fair and the total withdrawal time was 8 minutes. The scope was then slowly withdrawn and the mucosal folds examined in detail. There were no abnormalities in the cecum, ascending colon, transverse colon, descending colon, sigmoid or rectum. Random colonic biopsies taken. Retroflexion was performed and this showed grade 1 internal hemorrhoids. The scope was then withdrawn and the patient tolerated the procedure well. Pre-Op/Pre-Procedure Diagnosis: Iron deficiency anemia Post-Op/Post-Procedur e Diagnosis: Oozing Dieulafoy lesion in D2, treated with bipolar coagulation Duodenal AVM, treated with bipolar coagulation Multiple superficial duodenal ulcers Moderate antral erosions and small hiatal hernia Biopsies taken to rule out H. Pylori and celiac disease. No polyps or cancer within limits of a fair prep Mild sigmoid diverticulosis Grade 1 internal hemorrhoids Specimens: See above EBL: None Complications: None Recommendations: Follow up pathology Capsule endoscopy deployed for further evaluation I/primary surgeon/proceduralist performed the entire procedure. Leonard Urena MD MPH [facility] SIGNATURE: Leonard Urena MD MPH [facility] PATIENT NAME: Angeles Larios DATE: May 06, 2021 TIME: 5:12 PM PAGER/CONTACT #: [phone] [facility] SURGICAL PATHOLOGYon 021 CASE REPORT [facility] Comment on above: Order Comment: Speci men Type: TISSUE SPECIMEN Result Comment: Surg ica Pathology Report Case: [id number] Authorizing Provider: Leonard Urena MD Collected: 05/06/2021 04:45 PM Ordering Location: [facility] Received: 05/07/2021 08:49 AM Pathologist: Stephen Masters MD Specimens: A) - GASTRIC BIOPSY B) - DUODENUM BIOPSY C) - COLON BIOPSY, random Performed By: #### S #### [facility] CLIA [id number] [address] [place] [address] CLINICAL HISTORY Iron deficiency anemia Normal [facility] Comment on above: Order Comment: Speci men Type: TISSUE SPECIMEN Performed By: #### S #### [facility] CLIA [id number] [address] DIAGNOSIS COMMENT Sections of the duodenum revealed benign duodenal mucosa with mildly increased acute and chronic inflammatory cells predominantly within the lamina propria. Histologic features to suggest celiac disease are not present. [facility] Comment on above: Order Comment: Speci men Type: TISSUE SPECIMEN Performed By: #### S #### [facility] CLIA [id number] [address] [place] [address] FINAL DIAGNOSIS Normal [facility] Comment on above: Order Comment: Speci men Type: TISSUE SPECIMEN Result Comment: A. S tomach, biopsy No pathologic abnormalities. B. Duodenum, biopsy Mild active duodenitis. See comment. C. Colon, random biopsies No pathologic abnormalities. Performed By: #### S #### [facility] CLIA [id number] [address] [place] FINAL PERFORMING LAB Normal [facility] Comment on above: Order Comment: Speci men Type: TISSUE SPECIMEN Result Comment: Diag nostic interpretation performed at [facility], [address] [place] [address] CLIA# [id number] Recruitment Advertising Manager: Stephen Masters M.D. Performed By: #### S #### [facility] CLIA [id number] [address] GROSS DESCRIPTION Normal [facility] Comment on above: Order Comment: Speci men Type: TISSUE SPECIMEN Result Comment: A. G ASTRIC BIOPSY. A. Received in formalin labeled gastric biopsy is a irregular alvarez soft tissue fragment measuring 0.3 x 0.2 x 0.2 cm. The specimen is submitted entirely in cassette A1. B. DUODENUM BIOPSY. B. Received in formalin labeled duodenum biopsy is a irregular alvarez soft tissue fragment measuring 0.2 x 0.2 x 0.2 cm. The specimen is submitted entirely in cassette B1. C. COLON BIOPSY. C. Received in formalin labeled random colon biopsy is a irregular alvarez soft tissue fragment measuring 0.3 x 0.2 x 0.2 cm. The specimen is submitted entirely in cassette C1. Gross examination performed at [facility], [address] [place] [address] OLS May 07, 2021 12:31 PM Performed By: #### S #### [facility] CLIA [id number] [address] CBC W Auto Differential pane l (Bld)on 04-16-2021 Basophils (Bld) [#/Vol] 0.07 10*3/uL Normal <0.11 [facility] Comment on above: Order Comment: Speci men Type: BLOOD SPECIMEN Performed By: #### 5 7021-8 ####[facility] [id number] [address] Basophils/100 WBC (Bld) 1.1 % Normal [facility] Comment on above: Order Comment: Speci men Type: BLOOD SPECIMEN Performed By: #### 5 7021-8 ####[facility] [id number] [address] Differential cell count method Nom (Bld) Auto Normal [facility] Comment on above: Order Comment: Speci men Type: BLOOD SPECIMEN Performed By: #### 5 7021-8 ####[facility] [id number] [address] Eosinophils (Bld) [#/Vol] 0.10 10*3/uL Normal <0.46 [facility] Comment on above: Order Comment: Speci men Type: BLOOD SPECIMEN Performed By: #### 5 7021-8 ####[facility] [id number] [address] Eosinophils/100 WBC (Bld) 1.6 % Normal [facility] Comment on above: Order Comment: Speci men Type: BLOOD SPECIMEN Performed By: #### 5 7021-8 ####[facility] [id number] [address] Erythrocyte distribution width (RBC) [Ratio] 13.9 % Normal 11.5-15.0 [facility] Comment on above: Order Comment: Speci men Type: BLOOD SPECIMEN Performed By: #### 5 7021-8 ####[facility] [id number] [address] [facility] Hematocrit (Bld) [Volume fraction] 33.6 % Low 36.0-46.0 [facility] Comment on above: Order Comment: Speci men Type: BLOOD SPECIMEN Performed By: #### 5 7021-8 ####[facility] [id number] [address] Hemoglobin (Bld) [Mass/Vol] 9.4 g/dL Low 11.5-15.5 [facility] Comment on above: Order Comment: Speci men Type: BLOOD SPECIMEN Performed By: #### 5 7021-8 ####[facility] [id number] [address] IMMATURE GRAN % 0.3 % Normal [facility] Comment on above: Order Comment: Speci men Type: BLOOD SPECIMEN Performed By: #### 5 7021-8 ####[facility] [id number] [address] IMMATURE GRAN ABS <0.03 Normal <0.10 [facility] Comment on above: Order Comment: Speci men Type: BLOOD SPECIMEN Performed By: #### 5 7021-8 ####[facility] [id number] [address] Lymphocytes (Bld) [#/Vol] 1.68 10*3/uL Normal 1.00-4.00 [facility] Comment on above: Order Comment: Speci men Type: BLOOD SPECIMEN Performed By: #### 5 7021-8 ####[facility] [id number] [address] Lymphocytes/100 WBC (Bld) 27.6 % Normal [facility] Comment on above: Order Comment: Speci men Type: BLOOD SPECIMEN Performed By: #### 5 7021-8 ####[facility] [id number] [address] MCH (RBC) [Entitic mass] 31.2 pg Normal 26.0-34.0 [facility] Comment on above: Order Comment: Speci men Type: BLOOD SPECIMEN Performed By: #### 5 7021-8 ####[facility] [id number] [address] MCHC (RBC) [Mass/Vol] 28.0 g/dL Low 30.5-36.0 [facility] Comment on above: Order Comment: Speci men Type: BLOOD SPECIMEN Performed By: #### 5 7021-8 ####[facility] [id number] [address] MCV (RBC) [Entitic vol] 111.6 fL High 80.0-100.0 [facility] Comment on above: Order Comment: Speci men Type: BLOOD SPECIMEN Performed By: #### 5 7021-8 ####[facility] [id number] [address] Monocytes (Bld) [#/Vol] 0.56 10*3/uL Normal <0.87 [facility] Comment on above: Order Comment: Speci men Type: BLOOD SPECIMEN Performed By: #### 5 7021-8 ####[facility] [id number] [address] Monocytes/100 WBC (Bld) 9.2 % Normal [facility] Comment on above: Order Comment: Speci men Type: BLOOD SPECIMEN Performed By: #### 5 7021-8 ####[facility] [id number] [address] Neutrophils (Bld) [#/Vol] 3.66 10*3/uL Normal 1.45-7.50 [facility] Comment on above: Order Comment: Speci men Type: BLOOD SPECIMEN Performed By: #### 5 7021-8 ####[facility] [id number] [address] Neutrophils/100 WBC (Bld) 60.2 % Normal [facility] Comment on above: Order Comment: Speci men Type: BLOOD SPECIMEN Performed By: #### 5 7021-8 ####[facility] [id number] [address] Nucleated RBC (Bld) [#/Vol] 10*3/uL Normal <0.01 [facility] Comment on above: Order Comment: Speci men Type: BLOOD SPECIMEN Performed By: #### 5 7021-8 ####[facility] [id number] [address] [facility] Nucleated RBC/100 WBC (Bld) [Ratio] 0.0 /100 WBC Normal 0.0 [facility] Comment on above: Order Comment: Speci men Type: BLOOD SPECIMEN Performed By: #### 5 7021-8 ####[facility]CLIA [id number] [address] Platelet mean volume (Bld) [Entitic vol] 10.3 fL Normal 9.0-12.7 [facility] Comment on above: Order Comment: Speci men Type: BLOOD SPECIMEN Performed By: #### 5 7021-8 ####[facility]CLIA [id number] [address] Platelets (Bld) [#/Vol] 353 10*3/uL Normal 150-400 [facility] Comment on above: Order Comment: Speci men Type: BLOOD SPECIMEN Performed By: #### 5 7021-8 ####[facility]ORYCLIA [id number] [address] RBC (Bld) [#/Vol] 3.01 10*6/uL Low 3.90-5.20 [facility] Comment on above: Order Comment: Speci men Type: BLOOD SPECIMEN Performed By: #### 5 7021-8 ####[facility]CLIA [id number] [address] WBC (Bld) [#/Vol] 6.09 10*3/uL Normal 3.70-11.00 [facility] Comment on above: Order Comment: Speci men Type: BLOOD SPECIMEN Performed By: #### 5 7021-8 ####[facility]ORYCLIA [id number] [address] CNOVon 04-16-2021 CNOV Office Visit (AGGASTACC) ANGELES LARIOS ([id number]) 1960 F Date Time Provider Department 04/16/21 11:45 AM LEONARD URENA During your visit today, we recorded the following information about you: Leonard Urena MD 04/16/2021 1:52 PM Signed GASTROENTEROLOGY CONSULT HPI: Angeles Larios is a 61 year old female who presents for iron deficiency anemia and consideration of capsule endoscopy. This patient was booked with Dr. Barlow today for investigation of iron deficiency anemia with capsule endoscopy. However, as he does not do this procedure, she was booked with me as an urgent add-on. She has been admitted to hospital 3 times for anemia in the last 3-4 years. Hb has dropped to 5 in the past. It was 7 on her last admission in February 2021 She is seeing hematology and has had IV iron in the past. Oral iron supplementation. She has intermittent nausea but no vomiting. She has alternating constipation and diarrhea. Having 1 BM q2-3 days. She is taking a Stimulant laxative but unsure which one, does find it helps. Has chronic formed dark stool from iron. No melena or hematochezia. Never had hematemesis. She has had weight loss of 64lbs over the last [address] abdo 2 weeks ago - normal per pt The patient is asymptomatic from a GI perspective. No abdominal pain, nausea or vomiting. No dysphagia, odynophagia or GERD. No melena or hematochezia. No jaundice, scleral icterus, dark urine or pale stool. 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 Gutierrez. She has a history of anemia and has been on iron supplementation. She has fatigue and intermittent nausea. EGD in 03/10/[address] Charley De La Fuente in [place]: Normal Biopsies were not done Colonoscopy 03/10/[address] Charley De La Fuente: Poor prep but no masses noted No obvious source of GI bleed in the colon Internal hemorrhoids and sigmoid diverticulosis seen. No biopsies taken Current smoker, no alcohol Unemployed No FHx of CRC or IBD PAST MEDICAL HISTORY Diagnosis Date - Acquired hypothyroidism 05/10/2018 On levothyroxine - CAD (coronary artery disease) - Coronary artery disease involving [place] coronary artery of [place] heart without angina pectoris 06/27/2017 ASA, plavix - CVA (cerebral vascular accident) (HCC) 06/2012 - Embolus of femoral artery ([facility]) 06/25/2017 - Episode of recurrent major depressive disorder ([facility]) 05/10/2018 Duloxetine,wellbutrin , varenicline - Essential hypertension 06/27/2017 On metorpolol tartrate, lisinopril, isosorbide mononitrate ER - Fibromyalgia 05/10/2018 - GERD (gastroesophageal reflux disease) 05/10/2018 - HTN (hypertension) - Iron deficiency anemia 2017 - Irritable bowel syndrome with both constipation and diarrhea 05/10/2018 - Mixed hyperlipidemia 06/27/2017 - Occlusion and stenosis of carotid artery without mention of cerebral infarction 09/06/2012 - PATRICA (obstructive sleep apnea) 05/10/2018 - PVD (peripheral vascular disease) ([facility]) 05/10/2018 - Snoring PAST SURGICAL HISTORY Procedure Laterality Date - APPENDECTOMY 1998 - COLONOSCOP W/ OR W/O BRSH SPEC 03/10/2021 - EGD W/O OR W/BRUSH/WASH 03/10/2021 - INSERT CATH,ART,PERCUT,SHORT TERM 10/13/2012 RIGHT - PAST SURGICAL HISTORY OF 2008 cardiac stents x 3 placed - PAST SURGICAL HISTORY OF 06/25/2017 Rt PRINTED CIRCUIT BOARDS STRIPPER ETCHER embolectomy - THROMBOENDARTECTMY NECK,NECK INCIS 10/13/2012 LEFT - TUBAL LIGATION HX 1989 Current Outpatient Medications Medication Sig - vit C/E/Zn/coppr/lutein/z eaxan (PRESERVISION AREDS-2 ORAL) Take by mouth twice daily. - aspirin, enteric coated (ASPIRIN, ENTERIC COATED) 325 mg EC tablet Take 325 mg by mouth once daily. - ferrous sulfate 325 mg (65 mg iron) EC tablet Take 325 mg by mouth twice daily. - rosuvastatin (CRESTOR) 40 mg tablet Take 40 mg by mouth once daily. - nitroglycerin sublingual (NITROQUICK) 0.4 mg SL tablet Dissolve under the tongue as needed. - traZODone (DESYREL) 50 mg tablet Take 50 mg by mouth daily at bedtime. - clopidogrel (PLAVIX) 75 mg tablet Take 75 mg by mouth once daily. - levothyroxine (SYNTHROID) 25 mcg tablet Take 25 mcg by mouth once daily. - DULoxetine (CYMBALTA) 60 mg capsule Take 60 mg by mouth twice daily. - lisinopril (ZESTRIL, PRINIVIL) 20 mg tablet Take 20 mg by mouth once daily. - METOPROLOL TARTRATE, SHORT ACTING, 50 mg tablet Take 50 mg by mouth twice daily. No current facility-administered medications for this visit. ALLERGIES Allergen Reactions - Lipitor [Atorvastat* Myalgia Family history reviewed. No history of colon cancer or IBD. Social History Tobacco Use - Smoking status: Current Every Day Smoker Packs/day: 0.50 Years: 40.00 Pack years: 20.00 Types: Cigarettes - Smokeless tobacco: Never Used - Tobacco comment: smokes about 4 a day since mother , now on chantix Substance Use Topics - Alcohol use: (more content not included)... [facility] CNOV Office Visit (AGGENS3) ANGELES LARIOS ([id number]) 1960 F Date Time Provider Department 04/16/21 10:30 AM BONIFACIO COPELAND AGGENS3 During your visit today, we recorded the following information about you: Pulse Respiration Blood pressure Weight 68/minute 18/minute 115/63 98.4 kg Height 1.676 m Bonifacio Copeland MD 04/16/2021 11:30 AM Signed Thank you for coming to see me today. It is my pleasure to take care of you. If you have any questions regarding your visit, please don't hesitate to contact us. Bonifacio Copeland MD 04/16/2021 11:45 AM Signed Angeles Rock Ric is a 61 year old White female who presents with complaints of anemia. Is felt to be iron deficiency. Her hemoglobin did go quite low and she needed several transfusions. Back in February she had an EGD and a colonoscopy which showed no significant findings. She presents for evaluation for capsule endoscopy. She does have a significant history of coronary artery disease having stents placed and peripheral arterial disease and needing a carotid endarterectomy. She is on aspirin and Plavix. PAST MEDICAL HISTORY Diagnosis Date - Acquired hypothyroidism 05/10/2018 On levothyroxine - CAD (coronary artery disease) - Coronary artery disease involving [place] coronary artery of [place] heart without angina pectoris 06/27/2017 ASA, plavix - CVA (cerebral vascular accident) ([facility]) 06/2012 - Embolus of femoral artery ([facility]) 06/25/2017 - Episode of recurrent major depressive disorder ([facility]) 05/10/2018 Duloxetine,wellbutrin , varenicline - Essential hypertension 06/27/2017 On metorpolol tartrate, lisinopril, isosorbide mononitrate ER - Fibromyalgia 05/10/2018 - GERD (gastroesophageal reflux disease) 05/10/2018 - HTN (hypertension) - Iron deficiency anemia 2017 - Irritable bowel syndrome with both constipation and diarrhea 05/10/2018 - Mixed hyperlipidemia 06/27/2017 - Occlusion and stenosis of carotid artery without mention of cerebral infarction 09/06/2012 - PATRICA (obstructive sleep apnea) 05/10/2018 - PVD (peripheral vascular disease) ([facility]) 05/10/2018 - Snoring PAST SURGICAL HISTORY Procedure Laterality Date - APPENDECTOMY 1998 - COLONOSCOP W/ OR W/O BRSH SPEC 03/10/2021 - EGD W/O OR W/BRUSH/WASH 03/10/2021 - INSERT CATH,ART,PERCUT,SHORT TERM 10/13/2012 RIGHT - PAST SURGICAL HISTORY OF 2008 cardiac stents x 3 placed - PAST SURGICAL HISTORY OF 06/25/2017 Rt PRINTED CIRCUIT BOARDS STRIPPER ETCHER embolectomy - THROMBOENDARTECTMY NECK,NECK INCIS 10/13/2012 LEFT - TUBAL LIGATION HX 1989 Social History Tobacco Use - Smoking status: Current Every Day Smoker Packs/day: 0.50 Years: 40.00 Pack years: 20.00 Types: Cigarettes - Smokeless tobacco: Never Used - Tobacco comment: smokes about 4 a day since mother , now on chantix Substance Use Topics - Alcohol use: No Comment: quit 2017 - Drug use: No FAMILY HISTORY Problem Relation Age of Onset - Coronary Artery Disease Father - Heart Father - Hypertension Father - Coronary Artery Disease Brother - Coronary Artery Disease Paternal Grandfather - Heart Paternal Grandfather - Diabetes Mother - Hypertension Mother - Diabetes Brother - Heart Brother - Heart Maternal Uncle - Heart Paternal Aunt - Hypertension Brother ALLERGIES Allergen Reactions - Lipitor [Atorvastat* Myalgia Current Outpatient Medications Medication Sig - vit C/E/Zn/coppr/lutein/z eaxan (PRESERVISION AREDS-2 ORAL) Take by mouth twice daily. - aspirin, enteric coated (ASPIRIN, ENTERIC COATED) 325 mg EC tablet Take 325 mg by mouth once daily. - ferrous sulfate 325 mg (65 mg iron) EC tablet Take 325 mg by mouth twice daily. - rosuvastatin (CRESTOR) 40 mg tablet Take 40 mg by mouth once daily. - nitroglycerin sublingual (NITROQUICK) 0.4 mg SL tablet Dissolve under the tongue as needed. - traZODone (DESYREL) 50 mg tablet Take 50 mg by mouth daily at bedtime. - clopidogrel (PLAVIX) 75 mg tablet Take 75 mg by mouth once daily. - levothyroxine (SYNTHROID) 25 mcg tablet Take 25 mcg by mouth once daily. - lisinopril (ZESTRIL, PRINIVIL) 20 mg tablet Take 20 mg by mouth once daily. - METOPROLOL TARTRATE, SHORT ACTING, 50 mg tablet Take 50 mg by mouth twice daily. - DULoxetine (CYMBALTA) 60 mg capsule Take 60 mg by mouth twice daily. No current facility-administered medications for this visit. REVIEW OF SYSTEMS PAIN ASSESSMENT: Negative for pain, history of chronic pain, or current treatment for a chronic pain condition. GENERAL: No weight loss, malaise or fevers NECK: Negative for lumps, goiter, pain and significant neck swelling RESPIRATORY: Negative for cough, hemoptysis, wheezing, COPD, dyspnea or shortness of breath CARDIOVASCULAR: Negative for chest pain, leg swelling, hypertension, CHF or palpitations GI: See HPI : No history of dysuria, frequency or incontinence M (more content not included)... Normal [facility] Cici 04-16-2021 [facility] Telephone (AGGASTACC ) ANGELES LARIOS ([id number]) 1960 F Date Time Provider Department 04/16/21 RAZLEONARD PHIPPS During your visit today, we recorded the following information about you: Debbie Vallecillo 04/16/2021 1:31 PM Signed Surgery Checklist Type: COLONOSCOPY/EGD/CAPSU LE ENDOSCOPY Admission Type: outpatient Anesthesia: MAC Date: 04/05/21 Arrival Time: 12:45 PM Surgery Time: 02:15 PM Location: [facility] CASE# [id number] Prep given at appointment. Debbie Vallecillo Allergies As of Date: 04/16/2021 Noted Allergy Reaction LIPITOR (ATORVASTATIN) 06/14/2018 17 - Myalgia Date Reviewed: 04/16/2021 Reviewed by: Bertha Ya MA - Fully Assessed Reason for Visit: Future Appointment [256] Cmt: COLONOSCOPY/EGD/CAPSU LE ENDOSCOPY Prescriptions as of 04/16/2021 - vit C/E/Zn/coppr/lutein/z eaxan (PRESERVISION AREDS-2 ORAL) Take by mouth twice daily. - aspirin, enteric coated (ASPIRIN, ENTERIC COATED) 325 mg EC tablet Take 325 mg by mouth once daily. - ferrous sulfate 325 mg (65 mg iron) EC tablet Take 325 mg by mouth twice daily. - rosuvastatin (CRESTOR) 40 mg tablet Take 40 mg by mouth once daily. - nitroglycerin sublingual (NITROQUICK) 0.4 mg SL tablet Dissolve under the tongue as needed. - traZODone (DESYREL) 50 mg tablet Take 50 mg by mouth daily at bedtime. - clopidogrel (PLAVIX) 75 mg tablet Take 75 mg by mouth once daily. - levothyroxine (SYNTHROID) 25 mcg tablet Take 25 mcg by mouth once daily. - DULoxetine (CYMBALTA) 60 mg capsule Take 60 mg by mouth twice daily. - lisinopril (ZESTRIL, PRINIVIL) 20 mg tablet Take 20 mg by mouth once daily. - METOPROLOL TARTRATE, SHORT ACTING, 50 mg tablet Take 50 mg by mouth twice daily. Problem List As Of Date 04/16/2021 Noted Resolved Carotid stenosis, asymptomatic, bilateral [I65.*09/06/2012 Embolus of femoral artery (HCC) [I74.3] 06/25/2017 Coronary artery disease involving [place]*06/27/2017 Essential hypertension [I10] 06/27/2017 Mixed hyperlipidemia [E78.2] 06/27/2017 Episode of recurrent major depressive disorder *05/10/2018 Acquired hypothyroidism [E03.9] 05/10/2018 GERD (gastroesophageal reflux disease) [K21.9] 05/10/2018 PVD (peripheral vascular disease) ([facility]) [I73.9] 05/10/2018 PATRICA (obstructive sleep apnea) [G47.33] 05/10/2018 Fibromyalgia [M79.7] 05/10/2018 Irritable bowel syndrome with both constipation*05/10/20 18 Diabetes mellitus (HCC) [E11.9] 05/10/2018 Iron deficiency anemia [D50.9] 05/10/2018 HTN (hypertension) [I10] CVA (cerebral vascular accident) ([facility]) [I63.9] CAD (coronary artery disease) [I25.10] Obesity, Class III, BMI >= 40 [E66.01] 01/24/2019 Carotid stenosis [I65.29] 02/18/2019 Nicotine use disorder, F17.2 [F17.200] 02/20/2019 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 Encounter Status:Closed by DEBBIE VALLECILLO on 04/16/21 Normal [facility] CREATININE BLDon 04-16-2021 Creatinine [Mass/Vol] 0.77 mg/dL Normal 0.58-0.96 [facility] Comment on above: Order Comment: Speci men Type: BLOOD SPECIMEN Performed By: #### C RET1 #### [facility] CLIA [id number] [address] [place] [address] [place] GFR/1.73 sq M.predicted MDRD (S/P/Bld) [Vol rate/Area] mL/min/{1.73_m2} Normal [facility] Comment on above: Order Comment: Speci men Type: BLOOD SPECIMEN Result Comment: >60 eGFR (Estimated GFR) Units of measure: mL/min/1.73 meters squared eGFR is derived from the reexpressed MDRD Study equation using the following parameters: serum creatinine, age, gender and race. The creatinine assay has been calibrated to be traceable to IDMS. An eGFR <60 mL/min/1.73m2 for >3 months is consistent with chronic kidney disease. Refer to KDOQI guidelines for clinical interpretation. In patients with unstable renal function, e.g. those with acute kidney injury, the eGFR may not accurately reflect actual GFR. Performed By: #### C RET1 #### [facility] CLIA [id number] [address] [place] GLIADIN (DEAMIDATED) AB, IGA on 04-16-2021 Gliadin peptide IgA Qn (S) 11 Units Normal <20 [facility] Comment on above: Order Comment: Speci men Type: BLOOD SPECIMEN Result Comment: Nega tive : < 20 Units Weak Positive : 20 - 30 Units Moderate Pos to Strong Pos: >30 Units The following results were obtained with the Inova QUANTA Lite Gliadin IgA BENNY. Gliadin IgA values obtained with different manufacturers' assay methods may not be used interchangeably. The magnitude of the reported IgA levels cannot be correlated to an endpoint titer. Performed By: #### JERILYN BADILLO #### [facility] CLIA [id number] [address] [facility] [address] [place] [facility] GLIADIN (DEAMIDATED) AB, IGG on 04-16-2021 Gliadin peptide IgG Qn (S) 1 Units Normal <20 [facility] Comment on above: Order Comment: Speci men Type: BLOOD SPECIMEN Result Comment: Nega tive : < 20 Units Weak Positive : 20 - 30 Units Moderate Pos to Strong Pos: >30 Units The following results were obtained with the Inova QUANTA Lite Gliadin IgG BENNY. Gliadin IgG values obtained with different manufacturers' assay methods may not be used interchangeably. The magnitude of the reported IgG levels cannot be correlated to an endpoint titer. Performed By: #### JERILYN BADILLO #### [facility] CLIA [id number] [address] [place] [id number] [place] IGA BLDon 04-16-2021 IgA [Mass/Vol] 99 mg/dL Normal 70-400 [facility] Comment on above: Order Comment: Speci men Type: BLOOD SPECIMEN Performed By: #### I GA TGLGMA ####[facility] LABCLIA [id number] [facility] [address] [place] TRANSGLUTAMINASE ABSon 04-16 tTG IgA Qn (S) 5 Units Normal <20 [facility] Comment on above: Order Comment: Speci men Type: BLOOD SPECIMEN Result Comment: Nega tive : < 20 Units Weak Positive : 20 - 30 Units Moderate Pos to Strong Pos: >30 Units The following results were obtained with the Inova QUANTA Lite h-tTG IgA BENNY. h-tTG IgA values obtained with different manufacturers' assay methods may not be used interchangeably. The magnitude of the reported IgA levels cannot be correlated to an endpoint titer. Performed By: #### I LEA BALL ####[facility] LABCLIA [id number] [place] AVBooktro[employer] [address] tTG IgG Qn (S) 3 Units Normal <20 [facility] Comment on above: Order Comment: Speci men Type: BLOOD SPECIMEN Result Comment: Nega tive : < 20 Units Weak Positive : 20 - 30 Units Moderate Pos to Strong Pos: >30 Units The following results were obtained with the Inova QUANTA Lite h-hTG IgG BENNY. h-tTG IgG values obtained with different manufacturers' assay methods may not be used interchangeably. The magnitude of the reported IgG levels cannot be correlated to an endpoint titer. Performed By: #### I LEA BALL ####[facility] LABCLIA [id number] [facility] [address] [place] TSH SerPl-aCncon 04-16-2021 TSH Qn 1.480 m[IU]/L Normal 0.270-4.200 [facility] Comment on above: Order Comment: Speci men Type: BLOOD SPECIMEN Performed By: #### 3 016-3 ####[facility] [id number] [address] [place] CNPNon 01-07-2021 CNPN Telephone ([facility]) ANGELES LARIOS ([id number]) 1960 F Date Time Provider Department 01/07/21 JENNIFER CLEMONS During your visit today, we recorded the following information about you: Jennifer Clemons RN 01/07/2021 10:53 AM Signed Reason for call: Mr Larios called and she would like to schedule a follow up appointment with DR Brown Last seen 05/28/2020 looking for a mid morning appointment. Home and cell number [phone] Diagnosis Bobby carotid stenosis Kind Regards Jennifer Ruggiero 01/11/2021 9:18 AM Signed Talked to the patient and confirmed the follow up appointment with Dr. Brown has been scheduled for 06/17/21 at 12:30. I will mail out the appointment reminder. Allergies As of Date: 01/07/2021 Noted Allergy Reaction LIPITOR (ATORVASTATIN) 06/14/2018 17 - Myalgia Date Reviewed: 05/28/2020 Reviewed by: Nelida (Laya) LAYA Roy - Fully Assessed Reason for Visit: Appointment [186] Prescriptions as of 01/07/2021 Sig: PRESERVISION AREDS-2 ORAL Take by mouth twice daily. ASPIRIN 325 MG TABLET,DELAYED* Take 325 mg by mouth once christiano* FERROUS SULFATE 325 MG (65 MG* Take 325 mg by mouth twice da* ROSUVASTATIN 40 MG TABLET Take 40 mg [...] Take 20 mg by mouth once laura* METOPROLOL TARTRATE 50 MG TAB* Take 50 mg by mouth twice christiano* Problem List As Of Date 01/07/2021 Noted Resolved Carotid stenosis, asymptomatic, bilateral [I65.*09/06/2012 Embolus of femoral artery (HCC) [I74.3] 06/25/2017 Coronary artery disease involving [place]*06/27/2017 Essential hypertension [I10] 06/27/2017 Mixed hyperlipidemia [E78.2] 06/27/2017 Episode of recurrent major depressive disorder *05/10/2018 Acquired hypothyroidism [E03.9] 05/10/2018 GERD (gastroesophageal reflux disease) [K21.9] 05/10/2018 PVD (peripheral vascular disease) ([facility]) [I73.9] 05/10/2018 PATRICA (obstructive sleep apnea) [G47.33] 05/10/2018 Fibromyalgia [M79.7] 05/10/2018 Irritable bowel syndrome with both constipation*05/10/20 18 Diabetes mellitus ([facility]) [E11.9] 05/10/2018 Iron deficiency anemia [D50.9] 05/10/2018 HTN (hypertension) [I10] CVA (cerebral vascular accident) ([facility]) [I63.9] CAD (coronary artery disease) [I25.10] Obesity, Class III, BMI >= 40 [E66.01] 01/24/2019 Carotid stenosis [I65.29] 02/18/2019 Nicotine use disorder, F17.2 [F17.200] 02/20/2019 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 Encounter Status:Closed by JENNIFER CLEMONS on 01/07/21 Normal [facility] Culture, urineon 05-27-2019 Bacteria identified Cx Nom (U) Escherichia coli [facility] Culture, urineon 05-24-2019 Bacteria identified Cx Nom (U) Escherichia coli Abnormal [facility] Erythrocyte distribution wid th standard deviationon 02-08-2019 Erythrocyte distribution width (RBC) [Entitic vol] 48.6 fL High 35.1-43.9 [facility] Laboratory - Hematology and Cell countson 02-08-2019 Erythrocyte distribution width (RBC) [Ratio] 13.3 % 11.6-14.6 [facility] Total cell counton 9 Cells counted Molgen (Bld/Tiss) [#] Not Reportable [facility] Hemoglobin in reticulocytes (mass per reticulocyte)on 03-25-2018 Hemoglobin (Reticulocytes) [Entitic mass] 34.8 pg 30-35 [facility] Work Phone: No Panel Informationon 03-25 Immature Platelet Fraction 3.3 % 1.0-7.9 [facility] Comment on above: Low PLT + Low IPF flores ggest a bone marrow production disorderLow PLT + high IPF suggests peripheral destruction(e.g.ITP, TTP, HIT, DIC, autoimmune) or bone marrow recoveryTrending of serial IPF measurements is recommended when evaluating for bone marrow responesValue above normal range indicates an increase in RBC cellular response from bone marrow. Immature Reticulocyte Fraction 11.40 % 3.00-15.90 [facility] Work Phone: Reticulocyte Count 1.86 % 0.5-1.5 [facility] Work Phone: Lab Report: BNP,B-Type NATRI URETIC PEPTIDEon 10-13-2017 Natriuretic peptide B (Bld) [Mass/Vol] 30.4 pg/mL Invalid Interpretation Code 0-100 [facility] Work Phone: Lab Report: Basic Metabolic Profile (BMP)on 10-13-2017 Anion gap [Moles/Vol] 6 mmol/L Invalid Interpretation Code 5-15 [facility] Work Phone: Calcium [Mass/Vol] 8.2 mg/dL Low 8.5-10.1 [facility] Work Phone: Chloride [Moles/Vol] 106 mmol/L Invalid Interpretation Code 98-107 [facility] Work Phone: CO2 (BldV) [Partial pressure] 27.0 mmol/L Invalid Interpretation Code 21.0-32.0 [facility] Work Phone: Creatinine [Mass/Vol] 0.72 mg/dL Invalid Interpretation Code 0.55-1.02 [facility] Work Phone: GFR/1.73 sq M.predicted among non-blacks MDRD (S/P/Bld) [Vol rate/Area] 88 mL/min/{1.73_m2} Invalid Interpretation Code >60 [facility] Work Phone: Glomerular Filtration rate 107 mL/min Invalid Interpretation Code >60 [facility] Work Phone: Glucose [Mass/Vol] 127 mg/dL High 74-106 [facility] Work Phone: Potassium [Moles/Vol] 3.9 mmol/L Invalid Interpretation Code 3.5-5.1 [facility] Work Phone: Sodium [Moles/Vol] 139 mmol/L Invalid Interpretation Code 136-145 [facility] Work Phone: Urea nitrogen [Mass/Vol] 13 mg/dL Invalid Interpretation Code 7-18 [facility] Work Phone: Urea nitrogen/Creatinine [Mass ratio] 18.9701672 mg/mg Invalid Interpretation Code 10-20 [facility] Work Phone: Clinical Lists Update: Prelo outside sales account manager 07-14-2017 Left ventricular Ejection fraction 60 % Invalid Interpretation Code [facility] Work Phone: ACT CSLabon 07-07-2017 ACT CSLab 258 seconds High 89-153 [facility] Comment on above: Performed By: #### P T ####[place] [address] Activated PTTon 06-28-2017 aPTT 27.7 s Normal 22.0-34.0 [facility] Comment on above: Performed By: #### P T ####[place] [address] Protimeon 06-28-2017 INR Coag RelTime (PPP) 1.07 {INR} Normal [facility] Comment on above: Result Comment: Yannick dard Therapy 2.0-3.0High Dose 2.5-3.5 Performed By: #### P T ####[place] [address] Prothrombin time (PT) Coag time (PPP) 11.4 s Normal 9.3-11.9 [facility] Comment on above: Performed By: #### P T ####[address] [place], [place] [address] Activated PTTon 06-27-2017 aPTT 75.2 s High 22.0-34.0 [facility] Comment on above: Performed By: #### P T ####[place] [address] aPTT 51.8 s High 22.0-34.0 [facility] Comment on above: Performed By: #### G FR ####[place] [address] Hemogramon 06-27-2017 Erythrocyte distribution width Auto Ratio (RBC) 16.1 % High 11.7-14.4 [facility] Comment on above: Performed By: #### G FR ####[place] [address] Erythrocytes (RBC) 3.43 mil/cmm Low 3.93-5.22 [facility] Comment on above: Performed By: #### G FR ####[place] [address] Hematocrit (HCT) 29.4 % Low 34.1-44.9 [facility] Comment on above: Performed By: #### G FR ####[place] [address] Hemoglobin mass conc (Bld) 8.8 g/dL Low 11.2-15.7 [facility] Comment on above: Performed By: #### G FR ####[place] [address] MCH 25.7 pg Normal 25.6-32.2 [facility] Comment on above: Performed By: #### G FR ####[place] [address] MCHC mass conc (RBC) 29.9 % Low 31.6-34.8 [facility] Comment on above: Performed By: #### G FR ####[place] [address] MCV 85.7 fL Normal 79.4-94.8 [facility] Comment on above: Performed By: #### G FR ####[facility] [place], [place] [address] Platelet mean volume (PMV) 10.3 fL Normal 9.4-12.3 [facility] Comment on above: Performed By: #### G FR ####[facility] [place] [address] Platelets 258 thou/cmm Normal 182-369 [facility] Comment on above: Performed By: #### G FR ####[place] [address] RDW SD 50.2 fl High 36.4-46.3 [facility] Comment on above: Performed By: #### G FR ####[place] [address] WBC (Leukocytes) 10.88 thou/cmm High 3.98-10.04 [facility] Comment on above: Performed By: #### G FR ####[place] [address] Lipid Profileon 06-27-2017 Cholesterol to HDL Ratio 4.1 {ratio} Normal 1.8-5.3 [facility] Comment on above: Performed By: #### P T ####[place] [address] HDL Cholesterol 41 mg/dL Normal >40 [facility] [place] [facility] Comment on above: Performed By: #### P T ####[place] [address] LDL Cholesterol 95 mg/dL Normal [facility] [place] [facility] Comment on above: Result Comment: No C AD and with fewer than 2 CAD risk factors <160 mg/dlNo CAD but with 2 or more CAD risk factors <130 mg/dlDefinite CAD or other atherosclerotic disease <100 mg/dl Performed By: #### P T ####[place] [address] LDL to HDL Ratio 2.3 Normal 0.6-3.6 [facility] Comment on above: Result Comment: LDL, VLDL,LDL/HDL, Invalid if Triglyceride >400 Performed By: #### P T ####[place] [address] Cholesterol in VLDL mass conc 33 mg/dL Normal <50 Desired [facility] Comment on above: Performed By: #### P T ####[place] [id number] Triglyceride 166 mg/dL High 0-149 [facility] Comment on above: Result Comment: < 20 0 DesirableResult invalid if not a fasting specimen. Performed By: #### P T ####[place] [address] Cholesterol 169 mg/dL Normal 0-199 [facility] Comment on above: Result Comment: <200 [id number] Borderline>240 High Performed By: #### P T ####[place] [address] Protimeon 06-27-2017 INR Coag RelTime (PPP) 0.99 {INR} Normal [facility] Comment on above: Result Comment: Yannick dard Therapy 2.0-3.0High Dose 2.5-3.5 Performed By: #### G FR ####[place] [address] Prothrombin time (PT) Coag time (PPP) 10.7 s Normal 9.3-11.9 [facility] Comment on above: Performed By: #### G FR ####[place] [address] ARTERIAL UP/LOW/REST/MANUEVE Giovanni 06-26-2017 ARTERIAL UP/LOW/REST/MANUEVER Performed at [facility] APPROVED BY: STEPHANIE JOHN MD EXAM TITLE: ANKLE BRACHIAL INDEX DATE:06/26/2017 07:41 CLINICAL INDICATION/HISTORY: Patient is a 57-year-old female who underwent a right femoral embolectomy. TECHNIQUE: Patient underwent bilateral ankle brachial indices with segmental pressures and waveform analysis. FINDINGS:The patient's left arm the brachial artery pressure is 137 mmHg. In the right lower extremity the thigh pressure is 116, calf pressure is 101, posterior tibial pressure is 100 and dorsalis pedis pressure is 108 mmHg. Right CAN 0.79. Digit pressure is 70 mmHg. Waveforms are biphasic at the right lower extremity. In the left lower extremity the thigh pressure is 114, calf pressure is 93, posterior tibial pressure is 90, dorsalis pedis pressure is 90 mmHg. Left CAN 0.66. Digit pressure is 84 mmHg. Left lower extremity has biphasic waveforms with sharp upstroke. IMPRESSION:Right CAN 0.79 and left CAN of 0.66 suggestive of moderate peripheral vascular disease bilaterally. Waveforms and pressures are suggestive of possible proximal aortoiliac disease. Normal [facility] Activated PTTon 06-26-2017 aPTT 62.4 s High 22.0-34.0 [facility] Comment on above: Performed By: #### G FR ####[facility] [place] [address] aPTT 69.5 s High 22.0-34.0 [facility] Comment on above: Performed By: #### G FR ####[facility] [place] [address] Basic Panelon 06-26-2017 Creatinine 0.63 mg/dL Normal 0.51-0.95 [facility] Comment on above: Performed By: #### G FR ####[facility] [place] [address] Anion gap 11 mmol/L Normal 8-16 [facility] Comment on above: Performed By: #### G FR ####[facility] [place] [address] CO2 26 mmol/L Normal 21-32 [facility] Comment on above: Performed By: #### G FR ####[facility] [place] [address] Urea nitrogen 14 mg/dL Normal 7-18 [facility] Comment on above: Performed By: #### G FR ####[facility] [place] [address] Calcium 8.1 mg/dL Low 8.5-10.1 [facility] Comment on above: Performed By: #### G FR ####[facility] [place] [address] Glucose mass conc 130 mg/dL High 70-99 [facility] Comment on above: Performed By: #### G FR ####[facility] [place] [address] Chloride 105 mmol/L Normal 98-107 [facility] Comment on above: Performed By: #### G FR ####[address] [address] Potassium molar conc 3.8 mmol/L Normal 3.5-5.1 [facility] Comment on above: Performed By: #### G FR ####[place] [address] Sodium 138 mmol/L Normal 136-145 [facility] Comment on above: Performed By: #### G FR ####[address] [address] Hemogram/Diffon 06-26-2017 Basophils Auto #/vol (Bld) 0.04 thou/cmm Normal 0.01-0.08 [facility] Comment on above: Result Comment: Smea r scanned; tech agrees with automated differential Performed By: #### G FR ####[address] [address] Basophils/100 WBC Auto (Bld) 0.3 % Normal [facility] Comment on above: Performed By: #### G FR ####[address] [address] Eosinophils 0.01 thou/cmm Normal 0.00-0.31 [facility] Comment on above: Performed By: #### G FR ####[address] [address] Eosinophils/100 leukocytes 0.1 % Normal [facility] Comment on above: Performed By: #### G FR ####[address] [address] Immature Grans 0.50 % Normal [facility] Comment on above: Performed By: #### G FR ####[address] [address] Immature Grans # 0.07 thou/cmm High 0.00-0.05 [facility] Comment on above: Performed By: #### G FR ####[facility] [place], [place] [address] Lymphocytes 2.34 thou/cmm Normal 1.18-3.74 [facility] Comment on above: Performed By: #### G FR ####[facility] [place], [place] [address] Lymphocytes/100 leukocytes 15.8 % Normal [facility] Comment on above: Performed By: #### G FR ####[facility] [place], [place] [address] Monocytes 1.29 thou/cmm High 0.27-0.70 [facility] Comment on above: Performed By: #### G FR ####[facility] [place] [address] Monocytes/100 leukocytes 8.7 % Normal [facility] Comment on above: Performed By: #### G FR ####[address] [address] Seg Neutrophil 74.6 % Normal [facility] Comment on above: Performed By: #### G FR ####[place] [address] Seg. Neut.# 11.07 thou/cmm High 1.56-6.13 [facility] [place] [facility] Comment on above: Performed By: #### G FR ####[place] [address] Erythrocyte distribution width Auto Ratio (RBC) 16.0 % High 11.7-14.4 [facility] Comment on above: Performed By: #### G FR ####[place] [address] Erythrocytes (RBC) 3.60 mil/cmm Low 3.93-5.22 [facility] Comment on above: Performed By: #### G FR ####[place] [address] Hematocrit (HCT) 30.8 % Low 34.1-44.9 [facility] Comment on above: Performed By: #### G FR ####[place] [address] Hemoglobin mass conc (Bld) 9.5 g/dL Low 11.2-15.7 [facility] Comment on above: Performed By: #### G FR ####[facility] [place] [address] MCH 26.4 pg Normal 25.6-32.2 [facility] Comment on above: Performed By: #### G FR ####[facility] [place] [address] MCHC mass conc (RBC) 30.8 % Low 31.6-34.8 [facility] Comment on above: Performed By: #### G FR ####[facility] [place] [address] MCV 85.6 fL Normal 79.4-94.8 [facility] Comment on above: Performed By: #### G FR ####[place] [address] Platelet mean volume (PMV) 10.5 fL Normal 9.4-12.3 [facility] Comment on above: Performed By: #### G FR ####[facility] [place] [address] Platelets 308 thou/cmm Normal 182-369 [facility] Comment on above: Performed By: #### G FR ####[place] [address] RDW SD 50.2 fl High 36.4-46.3 [facility] Comment on above: Performed By: #### G FR ####[place] [address] WBC (Leukocytes) 14.84 thou/cmm High 3.98-10.04 [facility] Comment on above: Performed By: #### G FR ####[place] [id number] MDRD GFRon 06-26-2017 eGFR (non-black) mL/min/{1.73_m2} Normal >60mL/m in/1 .73m2 [facility] Comment on above: Result Comment: If t he patient is , multiply the result by 1.210. Performed By: #### G FR ####[facility] [place], [place] [address] Bear 06-25-2017 ACT 258 sec High 89-169 [facility] Comment on above: Performed By: #### A CT ####[facility] [place], [place] [address] Activated PTTon 06-25-2017 aPTT 117.9 s Critically high 22.0-34.0 [facility] [place] [facility] Comment on above: Result Comment: RESU LT RECHECKED Performed By: #### G FR ####[place] [address] Basic Panelon 06-25-2017 Creatinine 0.59 mg/dL Normal 0.51-0.95 [facility] Comment on above: Performed By: #### P 8 ####[place] [address] Anion gap 9 mmol/L Normal 8-16 [facility] Comment on above: Performed By: #### P 8 ####[place] [address] CO2 24 mmol/L Normal 21-32 [facility] Comment on above: Performed By: #### P 8 ####[place] [address] Glucose mass conc 162 mg/dL High 70-99 [facility] Comment on above: Performed By: #### P 8 ####[place] [address] Urea nitrogen 12 mg/dL Normal 7-18 [facility] Comment on above: Performed By: #### P 8 ####[address] [address] Calcium 7.8 mg/dL Low 8.5-10.1 [facility] Comment on above: Performed By: #### P 8 ####[place] [address] Chloride 107 mmol/L Normal 98-107 [facility] Comment on above: Performed By: #### P 8 ####[address], [place] [address] Potassium molar conc 3.7 mmol/L Normal 3.5-5.1 [facility] Comment on above: Performed By: #### P 8 ####[facility] [place], [place] [address] Sodium 136 mmol/L Normal 136-145 [facility] Comment on above: Performed By: #### P 8 ####[facility] [place], [place] [address] Creatinine 0.65 mg/dL Normal 0.51-0.95 [facility] Comment on above: Performed By: #### P 8 ####[facility] [place], [place] [address] Anion gap 11 mmol/L Normal 8-16 [facility] Comment on above: Performed By: #### P 8 ####[address] [address] CO2 23 mmol/L Normal 21-32 [facility] Comment on above: Performed By: #### P 8 ####[address] [address] Glucose mass conc 165 mg/dL High 70-99 [facility] Comment on above: Performed By: #### P 8 ####[address] [address] Urea nitrogen 14 mg/dL Normal 7-18 [facility] Comment on above: Performed By: #### P 8 ####[facility] [place], [place] [address] Calcium 8.4 mg/dL Low 8.5-10.1 [facility] Comment on above: Performed By: #### P 8 ####[facility] [place], [place] [address] Chloride 108 mmol/L High 98-107 [facility] Comment on above: Performed By: #### P 8 ####[facility] [place], [place] [address] Potassium molar conc 3.7 mmol/L Normal 3.5-5.1 [facility] Comment on above: Performed By: #### P 8 ####[facility] [place] [address] Sodium 138 mmol/L Normal 136-145 [facility] Comment on above: Performed By: #### P 8 ####[place] [address] Hemogramon 06-25-2017 Erythrocyte distribution width Auto Ratio (RBC) 16.0 % High 11.7-14.4 [facility] Comment on above: Performed By: #### C BC1 ####[place] [address] Erythrocytes (RBC) 4.01 mil/cmm Normal 3.93-5.22 [facility] Comment on above: Performed By: #### C BC1 ####[place] [address] Hematocrit (HCT) 34.3 % Normal 34.1-44.9 [facility] Comment on above: Performed By: #### C BC1 ####[place] [address] Hemoglobin mass conc (Bld) 10.5 g/dL Low 11.2-15.7 [facility] Comment on above: Performed By: #### C BC1 ####[place] [address] MCH 26.2 pg Normal 25.6-32.2 [facility] Comment on above: Performed By: #### C BC1 ####[place] [address] MCHC mass conc (RBC) 30.6 % Low 31.6-34.8 [facility] Comment on above: Performed By: #### C BC1 ####[place] [address] MCV 85.5 fL Normal 79.4-94.8 [facility] Comment on above: Performed By: #### C BC1 ####[place] [address] Platelet mean volume (PMV) 10.2 fL Normal 9.4-12.3 [facility] Comment on above: Performed By: #### C BC1 ####[facility] [place], [place] [address] Platelets 277 thou/cmm Normal 182-369 [facility] Comment on above: Performed By: #### C BC1 ####[facility] [place], [place] [address] RDW SD 50.1 fl High 36.4-46.3 [facility] Comment on above: Performed By: #### C BC1 ####[place] [address] WBC (Leukocytes) 12.16 thou/cmm High 3.98-10.04 [facility] Comment on above: Performed By: #### C BC1 ####[place] [address] Erythrocyte distribution width Auto Ratio (RBC) 16.1 % High 11.7-14.4 [facility] Comment on above: Performed By: #### C BC1 ####[place] [address] Erythrocytes (RBC) 3.92 mil/cmm Low 3.93-5.22 [facility] Comment on above: Performed By: #### C BC1 ####[place] [address] Hematocrit (HCT) 33.5 % Low 34.1-44.9 [facility] Comment on above: Performed By: #### C BC1 ####[place] [address] Hemoglobin mass conc (Bld) 10.2 g/dL Low 11.2-15.7 [facility] Comment on above: Performed By: #### C BC1 ####[place] [address] MCH 26.0 pg Normal 25.6-32.2 [facility] Comment on above: Performed By: #### C BC1 ####[place] [address] MCHC mass conc (RBC) 30.4 % Low 31.6-34.8 [facility] Comment on above: Performed By: #### C BC1 ####[facility] [place], [place] [address] MCV 85.5 fL Normal 79.4-94.8 [facility] Comment on above: Performed By: #### C BC1 ####[address] [address] Platelet mean volume (PMV) 10.0 fL Normal 9.4-12.3 [facility] Comment on above: Performed By: #### C BC1 ####[address] [address] Platelets 246 thou/cmm Normal 182-369 [facility] Comment on above: Performed By: #### C BC1 ####[address] [address] RDW SD 50.2 fl High 36.4-46.3 [facility] Comment on above: Performed By: #### C BC1 ####[place] [id number] WBC (Leukocytes) 9.67 thou/cmm Normal 3.98-10.04 [facility] Comment on above: Performed By: #### C BC1 ####[place] [id number] Lactic Acidon 06-25-2017 Lactate 1.8 mmol/L Normal 0.4-2.0 [facility] Comment on above: Performed By: #### L AC ####[place] [id number] MDRD GFRon 06-25-2017 eGFR (non-black) mL/min/{1.73_m2} Normal >60mL/m in/1 .73m2 [facility] Comment on above: Result Comment: If t he patient is , multiply the result by 1.210. Performed By: #### G FR ####[address] [address] eGFR (non-black) mL/min/{1.73_m2} Normal >60mL/m in/1 .73m2 [facility] Comment on above: Result Comment: If t he patient is , multiply the result by 1.210. Performed By: #### G FR ####[place] [address] Protimeon 06-25-2017 INR Coag RelTime (PPP) 0.99 {INR} Normal [facility] Comment on above: Result Comment: Yannick dard Therapy 2.0-3.0High Dose 2.5-3.5 Performed By: #### G FR ####[place] [address] Prothrombin time (PT) Coag time (PPP) 10.7 s Normal 9.3-11.9 [facility] Comment on above: Performed By: #### G FR ####[place] [address] INR Coag RelTime (PPP) 0.98 {INR} Normal [facility] Comment on above: Result Comment: Yannick dard Therapy 2.0-3.0High Dose 2.5-3.5 Performed By: #### P T ####[place] [address] Prothrombin time (PT) Coag time (PPP) 10.6 s Normal 9.3-11.9 [facility] Comment on above: Performed By: #### P T ####[place] [address] Surgical Tissue Examon 06-25 Surgical Tissue Exam Test performed at [place] [address]NAME: ANGELES LARIOS [id number] REQUESTING: CELINE CORREA M.D.FINAL DIAGNOSIS:RIGHT FEMORAL EMBOLECTOMY - ORGANIZING BLOOD CLOT. CALCIFIC DEPOSITSAND ATHEROSCLEROTIC DEBRIS.OPERATIVE PROCEDURE:Femoral embolectomy, rightCLINICAL INFORMATION:Acute ischemia right legGROSS DESCRIPTION:EmbolusRe ceived in formalin labeled acute ischemia and embolus of right leg isan aggregate of red friable material consistent with a thrombus andhemorrhage aggregating to 3 x 2 x 0.4 cm. Totally submitted in onecassette. BMP:tracy BOYLE M.D., PATHOLOGIST(Kieran hernandez signature on file)Signed out: 06/29/2017 16:29PRINTED: 06/29/2017 Page 1 of 1 Normal [facility] Comment on above: Performed By: #### P T ####[facility] [place] [address] Type and Screenon 06-25-2017 ABO group O Normal [facility] Comment on above: Performed By: #### T &S ####[facility] [place] [address] Antibody Screen Negative Normal [facility] [place] [facility] Comment on above: Performed By: #### T &S ####[facility] [place] [address] Comment Emergency Room Normal [facility] Comment on above: Performed By: #### T &S ####[facility] [place] [address] RH Type Positive Normal [facility] Comment on above: Performed By: #### T &S ####[place] [address] Office Visiton 01-15-2017 Documentation of current medications (procedure) Done Invalid Interpretation Code [facility] Work Phone: Fall risk assessment No Invalid Interpretation Code [employer] Work Phone: Clinical Lists Update: Pre01-14-2017 Left ventricular Ejection fraction 70 % Invalid Interpretation Code [facility] Work Phone: Clinical Lists Update: 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 outside sales account manager 12-30-2016 Albumin [Mass/Vol] 3.6 g/dL Invalid Interpretation Code [facility] Work Phone: Albumin/Globulin [Mass ratio] 1.1 {ratio} Invalid Interpretation Code [facility] Work Phone: Anion gap 7 mmol/L Invalid Interpretation Code [facility] Work Phone: Anion gap [Moles/Vol] 7 mmol/L Invalid Interpretation Code [facility] Work Phone: AST [Catalytic activity/Vol] 13 U/L Low [employer] Work Phone: Bilirubin [Mass/Vol] 0.20 mg/dL Invalid Interpretation Code [employer] Work Phone: Calcium [Mass/Vol] 8.6 mg/dL Invalid Interpretation Code [employer] Work Phone: Chloride [Moles/Vol] 106 mmol/L Invalid Interpretation Code [employer] Work Phone: CO2 27.0 mmol/L Invalid Interpretation Code [employer] Work Phone: CO2 (BldV) [Partial pressure] 27.0 mmol/L Invalid Interpretation Code [employer] Work Phone: Creatinine [Mass/Vol] 0.86 mg/dL Invalid Interpretation Code [employer] Work Phone: Erythrocyte distribution width (RBC) [Ratio] 12.9 % Invalid Interpretation Code [employer] Work Phone: Erythrocyte distribution width Auto Ratio (RBC) 12.9 % Invalid Interpretation Code [employer] Work Phone: Erythrocytes (RBC) 4.52 10*6/uL Invalid Interpretation Code [employer] Work Phone: Globulin 3.4 g/dL Invalid Interpretation Code [employer] Work Phone: globulin, serum 3.4 Invalid Interpretation Code [employer] Work Phone: Glucose [Mass/Vol] 109 mg/dL Invalid Interpretation Code [employer] Work Phone: Hematocrit (Bld) [Volume fraction] 44.7 % Invalid Interpretation Code [employer] Work Phone: Hematocrit (HCT) 44.7 % Invalid Interpretation Code [employer] Work Phone: Hemoglobin (Bld) [Mass/Vol] 14.3 g/dL Invalid Interpretation Code [employer] Work Phone: MCH 31.6 pg Invalid Interpretation Code [employer] Work Phone: MCH (RBC) [Entitic mass] 31.6 pg Invalid Interpretation Code [employer] Work Phone: MCHC (RBC) [Mass/Vol] 32.0 g/dL Invalid Interpretation Code [employer] Work Phone: MCHC mass conc (RBC) 32.0 g/dL Invalid Interpretation Code [employer] Work Phone: MCV 98.9 fL Invalid Interpretation Code [employer] Work Phone: MCV (RBC) [Entitic vol] 98.9 fL Invalid Interpretation Code [employer] Work Phone: Platelet mean volume (Bld) [Entitic vol] 10.4 fL Invalid Interpretation Code [employer] Work Phone: Platelets 267 10*3/mm3 Invalid Interpretation Code [employer] Work Phone: Platelets (Bld) [#/Vol] 267 10*3/uL Invalid Interpretation Code [employer] Work Phone: PMV by Roxane 10.4 fL Invalid Interpretation Code [employer] Work Phone: Potassium [Moles/Vol] 4.3 mmol/L Invalid Interpretation Code [employer] Work Phone: Protein [Mass/Vol] 7.0 g/dL Invalid Interpretation Code [employer] Work Phone: RBC (Bld) [#/Vol] 4.52 10*6/uL Invalid Interpretation Code [employer] Work Phone: Sodium [Moles/Vol] 140 mmol/L Invalid Interpretation Code [employer] Work Phone: Thyroid stimulating hormone (TSH) 1.81 u[iU]/mL Invalid Interpretation Code [employer] Work Phone: TSH Qn 1.81 m[IU]/L Invalid Interpretation Code [employer] Work Phone: Urea nitrogen [Mass/Vol] 15 mg/dL Invalid Interpretation Code [employer] Work Phone: Urea nitrogen/Creatinine [Mass ratio] 17.4 mg/mg Invalid Interpretation Code [employer] Work Phone: WBC (Bld) [#/Vol] 6.4 10*3/uL Invalid Interpretation Code [facility] Work Phone: WBC (Leukocytes) 6.4 10*3/uL Invalid Interpretation Code [facility] Work Phone: Office Visiton 12-30-2016 Dietary management education, guidance, and counseling (procedure) yes Invalid Interpretation Code [facility] Work Phone: Smoking cessation education (procedure) yes Invalid Interpretation Code [facility] Work Phone: Tobacco smoking status Tobacco smoking status NHIS Invalid Interpretation Code [facility] Work Phone: Tobacco use status [facility] Current every da y smoker Invalid Interpretation Code [facility] Work Phone: Lab Report: Vitamin D 1,25-D ihydroxyon 09-03-2016 vitamin D 1,25-dihydroxy, serum 39.3 Invalid Interpretation Code 19.9-79.3 [facility] Work Phone: VITD 1,25 03453 39.3 Invalid Interpretation Code 19.9-79.3 [facility] Work Phone: Lab Report: PTH,INTACTon Parathyrin.intact [Mass/Vol] 65 pg/mL Invalid Interpretation Code 14-72 [facility] Work Phone: Lab Report: Alkaline Phospha taseon 08-30-2016 Alkaline phosphatase (ALP) 105 U/L Invalid Interpretation Code 45-117 [facility] Work Phone: ALP (Bld) [Catalytic activity/Vol] 105 U/L Invalid Interpretation Code 45-117 [facility] Work Phone: Lab Report: Calcium,Totalon 08-30-2016 Calcium [Mass/Vol] 9.0 mg/dL Invalid Interpretation Code 8.5-10.1 [facility] Work Phone: Replaced Document: Bonifacio DAWN Observationson 07-15-2016 EKG QRS axis 27 deg Invalid Interpretation Code [facility] Work Phone: electrocardiogram interpretation Marked sinus Bradycardia BORDERLINE RHYTHM Invalid Interpretation Code [facility] Work Phone: GE use only - for LinkLogic import when terms are not otherwise specified 401 ms Invalid Interpretation Code [facility] Work Phone: Heart rate 48 /min Invalid Interpretation Code [facility] Work Phone: Interpretation Marked sinus Bradycardia BORDERLINE RHYTHM Invalid Interpretation Code [facility] Work Phone: P [place] 51 deg Invalid Interpretation Code [facility] Work Phone: P wave axis, electrocardiogram 51 deg Invalid Interpretation Code [facility] Work Phone: AK Interval 170 ms Invalid Interpretation Code [facility] Work Phone: AK interval, electrocardiogram 170 ms Invalid Interpretation Code [facility] Work Phone: QRS axis, electrocardiogram 27 deg Invalid Interpretation Code [facility] Work Phone: QRS Duration 106 ms Invalid Interpretation Code [facility] Work Phone: QRS duration, electrocardiogram 106 ms Invalid Interpretation Code [facility] Work Phone: QT Interval new path ms Invalid Interpretation Code [facility] Work Phone: QT interval, electrocardiogram new path ms Invalid Interpretation Code [facility] Work Phone: QTc Singh 401 ms Invalid Interpretation Code [facility] Work Phone: T [place] 43 deg Invalid Interpretation Code [facility] Work Phone: T wave axis, electrocardiogram 43 deg Invalid Interpretation Code [facility] Work Phone: Chart Maintenanceon 11-29-19 16 Left ventricular Ejection fraction 70 % Invalid Interpretation Code [facility] Work Phone: Hemoglobin Glyclated (HGB A1 C) ([id number])Ordered By: Roll Over Press Operator on 08-30-2015 HbA1c (Bld) [Mass fraction] 5.6 % Normal 4.8-5.6 [facility] Work Phone: Comment on above: . Pre-diabetes: 5.7 - 6.4 Diabetes: >6.4 Glycemic control for adults with diabetes: <7.0 PATIENT NOT FASTINGP ERFORMED BY: [facility] Juiknk8580 [facility] [id number] Information: [id number] HPV automatic ([id number])Ordered By: Roll Over Press Operator on 07-26-2015 HPV 16+18+31+33+35+39+45+51 +52+56+58+59+68 DNA Probe+sig amp Ql (Cvx) Negative Normal Comprehen [facility]; [facility] Work Phone: Comment on above: This high-risk HPV t est detects thirteen high-risk types(16/18/31/33/35/39/45/51/52/56/58/59/68) without differentiation. . Source.............C ervical;EndocervicalNo. of containers..01 CYTYC Thin Prep VialPATIENT NOT FASTINGPERFORMED BY: LabSapheonrFileblazeSteward [facility] [id number] BY: =G LabClzby [facility] CenterWork InspireSte[facility] [id number] Information: [id number] Microscopic observation Other stain Nom (Unsp spec) . Normal [facility]; [facility] Work Phone: Comment on above: Source.............C ervical;EndocervicalNo. of containers..01 CYTYC Thin Prep VialPATIENT NOT FASTINGPERFORMED BY: SparkroomrFileblazeSte[facility] [id number] BY: =G LabSapheonrFileblazeSteward [facility] [id number] Information: [id number] Pathology report final diagnosis Narrative [facility] Normal Comprehensiv e Internal [facility]; [facility] Work Phone: Comment on above: NEGATIVE FOR INTRAEP ITHELIAL LESION AND MALIGNANCY.Satisfactory for evaluation. Endocervical and/or squamous metaplasticcells (endocervical component) are present.Jennifer Middleton, Director Advanced ([facility]) Source.............C ervical;EndocervicalNo. of containers..01 CYTYC Thin Prep VialPATIENT NOT FASTINGPERFORMED BY: WB [employer]120 [place] [id number] BY: =G LabCo[employer]120 [address] PlazaOpen Utilityrleston [place] [id number] Information: [id number] HPV automatic ([id number]) PAPSMR Normal Com prehensive [facility]; [facility] Work Phone: Comment on above: The Pap smear is a s creening test designed to aid in the detection ofpremalignant and malignant conditions of the uterine cervix. It is not adiagnostic procedure and should not be used as the sole means of detectingcervical cancer. Both false-positive and false-negative reports do occur. .This liquid based ThinPrep(R) pap test was screened with theuse of an image guided system. Source.............C ervical;EndocervicalNo. of containers..01 CYTYC Thin Prep VialPATIENT NOT FASTINGPERFORMED BY: WB [facility] Azadmpqjox520 [address] Plaza[address] Utility[place] [id number] BY: =G [facility] Edtjnnxpeo685 [address] PlazaCharleston [place] [id number] Information: [id number] Lab Report: AFP, Tumor Malika smith 07-05-2015 AFP TUMOR 2253 3.3 ng/mL Invalid Interpretation Code 0.0-8.3 [facility] Work Phone: alpha-1 fetoprotein tumor marker, serum/plasma 3.3 ng/mL Invalid Interpretation Code 0.0-8.3 [facility] Work Phone: Lab Report: Bilirubin, Direc ton 07-04-2015 Bilirubin.direct [Mass/Vol] 0.06 mg/dL Invalid Interpretation Code 0.00-0.30 [facility] Work Phone: Lab Report: CBC W/Diff, Auto matedon 07-04-2015 Absolute Neut 3.8 X10 3/UL Invalid Interpretation Code 2.0-7.7 [facility] Work Phone: Basophils/100 WBC (Bld) 1.3 % High 0-1 [facility] Work Phone: Basophils/100 WBC Auto (Bld) 1.3 % High 0-1 [facility] Work Phone: Eosinophils/100 leukocytes 2.2 % Invalid Interpretation Code 0-5 [facility] Work Phone: Eosinophils/100 WBC (Bld) 2.2 % Invalid Interpretation Code 0-5 [facility] Work Phone: Erythrocyte distribution width (RBC) [Ratio] 13.1 % Invalid Interpretation Code 11.6-14.6 [facility] Work Phone: Hematocrit (Bld) [Volume fraction] 45.3 % Invalid Interpretation Code 37-47 [facility] Work Phone: Hemoglobin (Bld) [Mass/Vol] 15.1 g/dL High 12.0-15.0 [facility] Work Phone: Immature granulocytes/100 WBC (Bld) 0.100 % Invalid Interpretation Code 0.0-0.9 [facility] Work Phone: Lymphocytes 3.06 X10 3/UL Invalid Interpretation Code 0.83-4.51 [facility] Work Phone: Lymphocytes (Bld) [#/Vol] 3.06 X10 3/UL Invalid Interpretation Code 0.83-4.51 [facility] Work Phone: Lymphocytes/100 leukocytes 39.6 % Invalid Interpretation Code 19-41 [facility] Work Phone: Lymphocytes/100 WBC (Bld) 39.6 % Invalid Interpretation Code 19-41 [facility] Work Phone: MCH (RBC) [Entitic mass] 33.8 pg High 27.0-32.0 [facility] Work Phone: MCV (RBC) [Entitic vol] 101.3 fL High 81-99 [facility] Work Phone: mean corpuscular hemoglobin concentration, RBC 33.3 G/GL Invalid Interpretation Code 32-36 [facility] and Orthopaedics Work Phone: Monocytes/100 leukocytes 8.2 % Invalid Interpretation Code 0-10 [facility] Work Phone: Monocytes/100 WBC (Bld) 8.2 % Invalid Interpretation Code 0-10 [facility] Work Phone: neutrophil count, blood 3.8 X10 3/UL Invalid Interpretation Code 2.0-7.7 [facility] Work Phone: Neutrophils/100 WBC (Bld) 48.6 % Invalid Interpretation Code 47-70 [facility] Work Phone: Neutrophils/100 WBC Auto (Bld) 48.6 % Invalid Interpretation Code 47-70 [facility] Work Phone: Platelet mean volume (Bld) [Entitic vol] 9.7 fL Invalid Interpretation Code 6.2-12.0 [facility] Work Phone: Platelets (Bld) [#/Vol] 270 10*3/uL Invalid Interpretation Code 150-450 [facility] Work Phone: RBC (Bld) [#/Vol] 4.47 10*6/uL Invalid Interpretation Code 4.2-5.4 [facility] Work Phone: RDW SD 48.6 fL High 35.1-43.9 [facility] Work Phone: red blood cell distribution width, size density 48.6 fL High 35.1-43.9 [facility] Work Phone: WBC (Bld) [#/Vol] 7.7 10*3/uL Invalid Interpretation Code 4.4-11.0 [facility] Work Phone: Lab Report: Comprehensive [place] tabolic Profilon 07-04-2015 Albumin [Mass/Vol] 3.3 g/dL Low 3.4-5.0 [facility] Work Phone: Albumin/Globulin [Mass ratio] 0.4060467 {ratio} Invalid Interpretation Code 0.9-2.4 [facility] Work Phone: Albumin/Globulin Ratio 0.9 {ratio} Invalid Interpretation Code 0.9-2.4 [facility] Work Phone: ALT [Catalytic activity/Vol] 19 U/L Invalid Interpretation Code 12-78 [facility] Work Phone: Anion gap [Moles/Vol] 7 mmol/L Invalid Interpretation Code 5-15 [facility] Work Phone: AST [Catalytic activity/Vol] 12 U/L Low 15-37 [facility] Work Phone: Bilirubin [Mass/Vol] 0.30 mg/dL Invalid Interpretation Code 0.20-1.00 [facility] Work Phone: Chloride [Moles/Vol] 107 mmol/L Invalid Interpretation Code 98-107 [facility] Work Phone: CO2 (BldV) [Partial pressure] 27.0 mmol/L Invalid Interpretation Code 21.0-32.0 [facility] Work Phone: Creatinine [Mass/Vol] 0.85 mg/dL Invalid Interpretation Code 0.55-1.20 [facility] Work Phone: eGFR (non-black) 89 mL/min/{1.73_m2} Invalid Interpretation Code >60 [facility] Work Phone: GFR/1.73 sq M.predicted among non-blacks MDRD (S/P/Bld) [Vol rate/Area] 74 mL/min/{1.73_m2} Invalid Interpretation Code >60 [facility] Work Phone: Globulin 3.7 g/dL High 2.3-3.5 [facility] Work Phone: Globulin (S) [Mass/Vol] 3.7 g/dL High 2.3-3.5 [facility] Work Phone: Glomerular Filtration rate 89 mL/min Invalid Interpretation Code >60 [facility] Work Phone: Glucose [Mass/Vol] 94 mg/dL Invalid Interpretation Code 70-110 [facility] Work Phone: Potassium [Moles/Vol] 4.1 mmol/L Invalid Interpretation Code 3.5-5.1 [facility] Work Phone: Protein [Mass/Vol] 7.0 g/dL Invalid Interpretation Code 6.4-8.2 [facility] Work Phone: Sodium [Moles/Vol] 141 mmol/L Invalid Interpretation Code 136-145 [facility] Work Phone: Urea nitrogen [Mass/Vol] 14 mg/dL Invalid Interpretation Code 7-18 [facility] Work Phone: Urea nitrogen/Creatinine [Mass ratio] 16.0721094 mg/mg Invalid Interpretation Code 10-20 [facility] Work Phone: Lab Report: Folates, (Folic Acid)on 07-04-2015 Folate [Mass/Vol] 15.10 ng/mL Invalid Interpretation Code 3.1-17.5 [facility] Work Phone: Lab Report: Hemoglobin A1con 07-04-2015 HbA1c (Bld) [Mass fraction] 5.7 % Invalid Interpretation Code 4.2-6.3 [facility] Work Phone: Lab Report: Lipid Profileon 07-04-2015 Cholesterol [Mass/Vol] 275 mg/dL High 200 [facility] Work Phone: Cholesterol in HDL [Mass/Vol] 38 mg/dL Low [facility] Work Phone: Cholesterol in LDL [Mass/Vol] 190 mg/dL High 0-130 [facility] Work Phone: Lipoprotein.pre-beta [Mass/Vol] 47 mg/dL High 5-40 [facility] Work Phone: Triglyceride [Mass/Vol] 235 mg/dL High [facility] Work Phone: Lab Report: Partial Thrombop last Timeon 07-04-2015 aPTT Coag (Bld) [Time] 37.7 s High 24.1-36.2 [facility] Work Phone: Lab Report: Prothrombin Time w/INRon 07-04-2015 INR Coag (PPP) [Relative time] 0.9 {INR} Invalid Interpretation Code [facility] Work Phone: Prothrombin time (PT) Coag time (PPP) 12.1 s Invalid Interpretation Code 11.7-14.9 [facility] Work Phone: PT Coag (PPP) [Time] 12.775452960 s Invalid Interpretation Code 11.7-14.9 [facility] Work Phone: Lab Report: Thyroid Stim Hor chinmay (TSH)on 07-04-2015 TSH Qn 1.78 m[IU]/L Invalid Interpretation Code 0.358-3.74 [facility] Work Phone: Lab Report: Vitamin B12on Cobalamin (Vitamin B12) [Mass/Vol] 302 pg/mL Invalid Interpretation Code 211-911 [facility] Work Phone: Lab Report: Vitamin D,25 Hyd roxyon 07-04-2015 vitamin D 25-hydroxy, serum 59.8 ng/mL Invalid Interpretation Code [facility] Work Phone: Vitamin D 25-OH 59.8 ng/mL Invalid Interpretation Code [facility] Work Phone: Office Visit: [facility] 02-07-20 15 cardiac risk group C Invalid Interpretation Code [facility] Work Phone: General cardiovascular disease 10Y risk [#] [place].D'Agostino N/A Invalid Interpretation Code [facility] Work Phone: VITAMIN B12 AND FOLATES ([phone])Ordered By: Roll Over Press Operator on 10-11-2014 Cobalamin (Vitamin B12) [Mass/Vol] 338 pg/mL Normal 211-946 [facility]; [facility] Work Phone: Comment on above: PATIENT NOT FASTINGP ERFORMED BY: [email or web address] [facility] [id number] Information: [id number] Folate [Mass/Vol] 13.7 ng/mL Normal Compreh ensive Internal Medicine; [facility] Work Phone: Comment on above: A serum folate vanita ntration of less than 3.1 ng/mL isconsidered to represent clinical deficiency. PATIENT NOT FASTINGP ERFORMED BY: [email or web address] [employer] [place] [id number] Information: [id number] NHNKE-IDDZHRIYACG-GUEKR ([phone])Ordered By: Roll Over Press Operator on 10-02-2014 AFP.tumor marker [Mass/Vol] 3.3 ng/mL Normal 0.0-8.3 [facility]; [facility] Work Phone: Comment on above: Isak ECLIA methodol ogy PATIENT WAS FASTINGP ERFORMED BY: SHERLEY LabCoSouthern Ocean Medical CenterHnchsd2777 [facility] [id number] Blood Glucose , Office ([phone])Ordered By: Janay Edwards on 10-02-2014 Glucose Glucometer (BldC) [Moles/Vol] 100 1 Normal [facility]; [facility] Work Phone: CBC with auto diff ([phone])Or dered By: Roll Over Press Operator on 10-02-2014 Basophils (Bld) [#/Vol] 0.1 10*3/uL Normal 0.0-0.2 [facility]; [facility] Work Phone: Comment on above: PATIENT WAS FASTINGP ERFORMED BY: [facility]Select [facility]inte6370 [facility] [id number] Information: [id number] Basophils/100 WBC (Bld) 1 % Normal C omprehensive Internal Medicine; [facility] Work Phone: Comment on above: PATIENT WAS FASTINGP ERFORMED BY: LabSelect [facility]rosse Pointe6370 [facility] [id number] Information: [id number] Eosinophils (Bld) [#/Vol] 0.2 10*3/uL Normal 0.0-0.4 [facility]; [facility] Work Phone: Comment on above: PATIENT WAS FASTINGP ERFORMED BY: LabCo Cjrili4525 [facility] [id number] Information: [id number] Eosinophils/100 WBC (Bld) 2 % Normal [facility]; [facility] Work Phone: Comment on above: PATIENT WAS FASTINGP ERFORMED BY: LabCo Bvylbb2588 [facility] [id number] Information: [id number] Erythrocyte distribution width (RBC) [Ratio] 13.5 % Normal 12.3-15.4 [facility]; [facility] Work Phone: Comment on above: PATIENT WAS FASTINGP ERFORMED BY: SHERLEY Shultz6370 [facility] [id number] Information: [id number] Hematocrit (Bld) [Volume fraction] 46.8 % Abnormal 34.0-46.6 [facility]; [facility] Work Phone: Comment on above: PATIENT WAS FASTINGP ERFORMED BY: [address] [id number] Information: [id number] Hemoglobin (Bld) [Mass/Vol] 15.6 g/dL Normal 11.1-15.9 [facility]; [facility] Work Phone: Comment on above: PATIENT WAS FASTINGP ERFORMED BY: Eric[address] [id number] Information: [id number] Immature granulocytes (Bld) [#/Vol] 0.0 10*3/uL Normal 0.0-0.1 [facility]; [facility] Work Phone: Comment on above: PATIENT WAS FASTINGP ERFORMED BY: SHERLEY Butcher Rtye[address] [id number] Information: [id number] Immature granulocytes/100 WBC (Bld) 0 % Normal [facility]; [facility] Work Phone: Comment on above: PATIENT WAS FASTINGP ERFORMED BY: [address] [id number] Information: [id number] Lymphocytes (Bld) [#/Vol] 3.2 10*3/uL Abnormal 0.7-3.1 [facility]; [facility] Work Phone: Comment on above: PATIENT WAS FASTINGP ERFORMED BY: [address] [id number] Information: [id number] Lymphocytes/100 WBC (Bld) 39 % Normal [facility]; [facility] Work Phone: Comment on above: PATIENT WAS FASTINGP ERFORMED BY: SHERLEY Shultz6370 [facility] [id number] Information: [id number] MCH (RBC) [Entitic mass] 33.3 pg Abnormal 26.6-33.0 [facility]; [facility] Work Phone: Comment on above: PATIENT WAS FASTINGP ERFORMED BY: [address] [id number] Information: [id number] MCHC (RBC) [Mass/Vol] 33.3 g/dL Normal 31.5-35.7 [facility]; [facility] Work Phone: Comment on above: PATIENT WAS FASTINGP ERFORMED BY: SHERLEY [address] [id number] Information: [id number] MCV (RBC) [Entitic vol] 100 fL Abnormal 79-97 C ompbarnesville hospitalensive Internal Medicine; [facility] Work Phone: Comment on above: PATIENT WAS FASTINGP ERFORMED BY: SHERLEY [address] [id number] Information: [id number] Monocytes (Bld) [#/Vol] 0.8 10*3/uL Normal 0.1-0.9 [facility]; [facility] Work Phone: Comment on above: PATIENT WAS FASTINGP ERFORMED BY: [facility]6370 [facility] [id number] Information: [id number] Monocytes/100 WBC (Bld) 10 % Normal C omprehensive [facility] Medicine; [facility] Work Phone: Comment on above: PATIENT WAS FASTINGP ERFORMED BY: [place] 5714070 [facility] [id number] Information: [id number] Neutrophils (Bld) [#/Vol] 4.0 10*3/uL Normal 1.4-7.0 [facility]; [facility] Work Phone: Comment on above: PATIENT WAS FASTINGP ERFORMED BY: SHERLEY Clarence Shultz6370 [facility] [id number] Information: [id number] Neutrophils/100 WBC (Bld) 48 % Normal [facility]; [facility] Work Phone: Comment on above: PATIENT WAS FASTINGP ERFORMED BY: SHERLEY [facility]Centerpo[facility] Hospital Iziyhy5244 [facility] [id number] Information: [id number] Platelets (Bld) [#/Vol] 268 10*3/uL Normal 150-379 [facility]; [facility] Work Phone: Comment on above: PATIENT WAS FASTINGP ERFORMED BY: SHERLEY Hadley Wtrhqq2341 [facility] [id number] Information: [id number] RBC (Bld) [#/Vol] 4.69 10*6/uL Normal 3.77-5.28 Compr ehensive Internal Medicine; [facility] Work Phone: Comment on above: PATIENT WAS FASTINGP ERFORMED BY: SHERLEY Hadley Wgyufk9909 [facility] [id number] Information: [id number] WBC (Bld) [#/Vol] 8.2 10*3/uL Normal 3.4-10.8 Compre [facility] Internal Medicine; [facility] Work Phone: Comment on above: PATIENT WAS FASTINGP ERFORMED BY: SHERLEY LabCo Uwiqoc5616 [facility] [id number] Information: [id number] HgA1C , Office ([phone])Caitlyne d By: Janay Edwards on 10-02-2014 HbA1c (Bld) [Mass fraction] 5.9 % Normal 4.6 - 7.1 [facility]; [facility] Work Phone: LIPID PANEL ([phone])Ordered B y: Roll Over Press Operator on 10-02-2014 Cholesterol [Mass/Vol] 261 mg/dL Abnormal 100-199 Co mprehensive [facility]; [facility] Work Phone: Comment on above: PATIENT WAS FASTINGP ERFORMED BY: CB [facility] Nernyb3235 [address] RoadDublin [place] [id number] Cholesterol in HDL [Mass/Vol] 37 mg/dL Abnormal [facility]; [facility] Work Phone: Comment on above: According to ATP-III Guidelines, HDL-C >59 mg/dL is considered anegative risk factor for CHD. PATIENT WAS FASTINGP ERFORMED BY: CB [facility] Vakgdw[address] Orthopedic SolutionsDublin [place] [id number] Cholesterol in LDL [Mass/Vol] 187 mg/dL Abnormal 0-99 [facility]; [facility] Work Phone: Comment on above: PATIENT WAS FASTINGP ERFORMED BY: CB [facility] Dgcwnr1166 [address] Orthopedic SolutionsDublin [place] [id number] Cholesterol in LDL/Cholesterol in HDL [Mass ratio] 5.1 {ratio_units} Abnormal 0.0-3.2 [facility]; [facility] Work Phone: Comment on above: LDL/HDL Ratio Men Wo men 1/2 Avg.Risk 1.0 1.5 Avg.Risk 3.6 3.2 2X Avg.Risk 6.2 5.0 3X Avg.Risk 8.0 6.1 PATIENT WAS FASTINGP ERFORMED BY: CB [facility] Jsmaos5056 [address] Orthopedic SolutionsDublin [place] [id number] Cholesterol in VLDL [Mass/Vol] 37 mg/dL Normal 5-40 [facility]; [facility] Work Phone: Comment on above: PATIENT WAS FASTINGP ERFORMED BY: CB [facility] Idvtqv6809 [address] RoadDublin [place] [id number] Triglyceride [Mass/Vol] 185 mg/dL Abnormal 0-149 C omprehensive Internal Medicine; [facility] Work Phone: Comment on above: PATIENT WAS FASTINGP ERFORMED BY: CB [facility] Pyffja7260 [address] RoadDublin [place] [id number] METABOLIC PANEL, COMPREHENSI VE ([id number])Ordered By: Roll Over Press Operator on 10-02-2014 Albumin [Mass/Vol] 4.2 g/dL Normal 3.5-5.5 [facility]; [facility] Work Phone: Comment on above: PATIENT WAS FASTINGP ERFORMED BY: CB [facility] Qkgvjb4971 [address] RoadDublin [place] [id number] Albumin/Globulin [Mass ratio] 1.9 {ratio} Normal 1.1-2.5 [facility]; [facility] Work Phone: Comment on above: PATIENT WAS FASTINGP ERFORMED BY: CB [facility] Xdwbot5070 [address] RoadDublin [place] [id number] ALP [Catalytic activity/Vol] 116 U/L Normal 39-117 [facility]; [facility] Work Phone: Comment on above: PATIENT WAS FASTINGP ERFORMED BY: CB [facility] Picfwc1881 [address] RoadDublin [place] [id number] ALT [Catalytic activity/Vol] 11 U/L Normal 0-32 [facility]; [facility] Work Phone: Comment on above: PATIENT WAS FASTINGP ERFORMED BY: CB [facility] Xvojgv4514 [address] RoadDublin [place] [id number] AST [Catalytic activity/Vol] 13 U/L Normal 0-40 [facility]; [facility] Work Phone: Comment on above: PATIENT WAS FASTINGP ERFORMED BY: CB [facility] Njdqye7878 [address] RoadDublin [place] [id number] Bilirubin [Mass/Vol] 0.4 mg/dL Normal 0.0-1.2 [facility]; [facility] Work Phone: Comment on above: PATIENT WAS FASTINGP ERFORMED BY: CB [facility] Dkyhpb4174 [address] RoadDublin [place] [id number] Calcium [Mass/Vol] 9.6 mg/dL Normal 8.7-10.2 [facility]; [facility] Work Phone: Comment on above: PATIENT WAS FASTINGP ERFORMED BY: CB [facility] Dumruj1499 [address] RoadDublin [place] [id number] Chloride [Moles/Vol] 103 mmol/L Normal 97-108 Comp rehensive Internal Medicine; [facility] Work Phone: Comment on above: PATIENT WAS FASTINGP ERFORMED BY: CB [facility] Ebhova6782 [address] RoadDublin [place] [id number] CO2 [Moles/Vol] 23 mmol/L Normal 18-29 [facility]; [facility] Work Phone: Comment on above: PATIENT WAS FASTINGP ERFORMED BY: CB [facility] Ehdwpm2961 [address] RoadDuin [place] [id number] Creatinine [Mass/Vol] 0.89 mg/dL Normal 0.57-1.00 [facility] prehensive Internal Medicine; [facility] Work Phone: Comment on above: PATIENT WAS FASTINGP ERFORMED BY: CB [facility] Xisglr6275 [address] RoadDublin [place] [id number] GFR/1.73 sq M.predicted among blacks CKD-EPI (S/P/Bld) [Vol rate/Area] 84 mL/min/1.73 Normal [facility]; [facility] Work Phone: Comment on above: PATIENT WAS FASTINGP ERFORMED BY: CB [facility] Oceqds8042 [address] RoadDuin [place] [id number] GFR/1.73 sq M.predicted among non-blacks CKD-EPI (S/P/Bld) [Vol rate/Area] 73 mL/min/1.73 Normal [facility]; [facility] Work Phone: Comment on above: PATIENT WAS FASTINGP ERFORMED BY: CB [facility] Xgquaj0286 [address] RoadDublin [place] [id number] Globulin (S) [Mass/Vol] 2.2 g/dL Normal 1.5-4.5 C omprehensive Internal Medicine; [facility] Work Phone: Comment on above: PATIENT WAS FASTINGP ERFORMED BY: SHERLEY [facility] Pgkfny1202 [address] RoadDublin [place] [id number] Glucose [Mass/Vol] 94 mg/dL Normal 65-99 [facility]; [facility] Work Phone: Comment on above: PATIENT WAS FASTINGP ERFORMED BY: CB [facility] Qtnosr5230 [address] RoadDublin [place] [id number] Potassium [Moles/Vol] 5.0 mmol/L Normal 3.5-5.2 [facility] Internal Medicine; [facility] Work Phone: Comment on above: PATIENT WAS FASTINGP ERFORMED BY: CB [facility] Qeqdop6533 [address] RoadDublin [place] [id number] Protein [Mass/Vol] 6.4 g/dL Normal 6.0-8.5 [facility]; [facility] Work Phone: Comment on above: PATIENT WAS FASTINGP ERFORMED BY: CB [facility] Uekvnx6656 [address] RoadDublin [place] [id number] Sodium [Moles/Vol] 140 mmol/L Normal 134-144 [facility]; [facility] Work Phone: Comment on above: PATIENT WAS FASTINGP ERFORMED BY: CB [facility] Ywntrx7637 [address] RoadDublin [place] [id number] Urea nitrogen [Mass/Vol] 12 mg/dL Normal 6-24 [facility] Internal Medicine; [facility] Work Phone: Comment on above: PATIENT WAS FASTINGP ERFORMED BY: CB [facility] Dqlkbi9295 [address] RoadDublin [place] [id number] Urea nitrogen/Creatinine [Mass ratio] 13 mg/mg Normal 9-23 [facility] Internal Medicine; [facility] Work Phone: Comment on above: PATIENT WAS FASTINGP ERFORMED BY: CB [facility] Bkscix6757 [address] RoadDublin [place] [id number] MICROALBUMINOrdered By: Syst em Electric Motor Assembler And Tester on 10-02-2014 Albumin DL <= 20 mg/L (U) [Mass/Vol] 3.4 ug/mL Normal 0.0-17.0 [facility]; [facility] Work Phone: Comment on above: PATIENT WAS FASTINGP ERFORMED BY: SHERLEY Butcher Tcvxfg1978 [facility] [id number] Albumin/Creatinine (U) [Mass ratio] 4.3 {mg/g_creat} Normal 0.0-30.0 [facility]; [facility] Work Phone: Comment on above: PATIENT WAS FASTINGP ERFORMED BY: [facility] Cnadeo3176 [facility] [id number] Creatinine (U) [Mass/Vol] 78.3 mg/dL Normal 15.0-278.0 [facility]; [facility] Work Phone: Comment on above: PATIENT WAS FASTINGP ERFORMED BY: [facility] Mykeua6940 [facility] [id number] PT (Prothrobim Time) ([id number]) Ordered By: Roll Over Press Operator on 10-02-2014 INR Coag (PPP) [Relative time] 1.0 {INR} Normal 0.8-1.2 [facility]; [facility] Work Phone: Comment on above: Reference interval i s for non-anticoagulated patients. . Suggested INR therapeutic range for Vitamin K antagonist therapy: Standard Dose (moderate intensity therapeutic range): 2.0 - 3.0 Higher intensity therapeutic range 2.5 - 3.5 PATIENT WAS FASTINGP ERFORMED BY: [facility] Cfdtlt5696 [facility] [id number] PT Coag (PPP) [Time] 10.3 s Normal 9.1-12.0 [facility] Internal Medicine; [facility] Work Phone: Comment on above: PATIENT WAS FASTINGP ERFORMED BY: [facility] Lonrme9163 [facility] [id number] PTT (Activated Partial Throm boplastin Time) ([id number])Ordered By: Roll Over Press Operator on 10-02-2014 aPTT Coag (PPP) [Time] 33 s Normal 24-33 Co mprehensive [facility]; [facility] Work Phone: Comment on above: This test has not be en validated for monitoring unfractionated heparintherapy. aPTT-based therapeutic ranges for unfractionated heparintherapy have not been established. For general guidelines onHeparin monitoring, refer to the [facility] Directory of Services. PATIENT WAS FASTINGP ERFORMED BY: [facility]6[address]Dublin [place] [id number] TSH ([id number])Ordered By: [employer] World[employer] m Electric Motor Assembler And Tester on 10-02-2014 TSH Qn 2.210 {uIU/mL} Normal 0.450-4.500 Comprehen sive Internal Medicine; [facility] Work Phone: Comment on above: PATIENT WAS FASTINGP ERFORMED BY: [facility]6[address] [place] [id number] URINALYSIS, W/ MICRO ([id number]) Ordered By: Roll Over Press Operator on 10-02-2014 Appearance (U) Clear Normal [facility]; [facility] Work Phone: Comment on above: PATIENT WAS FASTINGP ERFORMED BY: [facility]Dublin [place] [id number] Bilirubin Ql (U) Negative Normal Comprehe nsive Internal Medicine; [facility] Work Phone: Comment on above: PATIENT WAS FASTINGP ERFORMED BY: [facility] [place] [id number] Color (U) Yellow Normal [facility]; [facility] Work Phone: Comment on above: PATIENT WAS FASTINGP ERFORMED BY: [facility]oneH[facility] DivisionIxksxe37[address]Dublin [place] [id number] Glucose Ql (U) Negative Normal [facility]; [facility] Work Phone: Comment on above: PATIENT WAS FASTINGP ERFORMED BY: [facility] Centerlin[address]Dublin [place] [id number] Hemoglobin Ql (U) Negative Normal Compreh ensive [facility]; [facility] Work Phone: Comment on above: PATIENT WAS FASTINGP ERFORMED BY: SHERLEY Staufferlin[address]Dublin [place] [id number] Ketones Ql (U) Negative Normal [facility]; [facility] Work Phone: Comment on above: PATIENT WAS FASTINGP ERFORMED BY: SHERLEY Shultz[address]Dublin [place] [id number] Leukocyte esterase Test strip Ql (U) 1+ Abnormal [facility]; [facility] Work Phone: Comment on above: PATIENT WAS FASTINGP ERFORMED BY: SHERLEY Staufferlin[address]Dublin [place] [id number] Microscopic observation LM Nom (Urine sed) See below: Normal [facility]; [facility] Work Phone: Comment on above: Microscopic was mesfin cated and was performed. PATIENT WAS FASTINGP ERFORMED BY: SHERLEY Staufferlin[address]Dublin [place] [id number] Nitrite Ql (U) Negative Normal [facility]; [facility] Work Phone: Comment on above: PATIENT WAS FASTINGP ERFORMED BY: SHERLEY Staufferlin[address] [place] [id number] pH (U) 7.5 [pH] Normal 5.0-7.5 [facility]; [facility] Work Phone: Comment on above: PATIENT WAS FASTINGP ERFORMED BY: SHERLEY Staufferlin[address] [place] [id number] Protein Ql (U) Negative Normal [facility]; [facility] Work Phone: Comment on above: PATIENT WAS FASTINGP ERFORMED BY: SHERLEY Staufferlin[address] [place] [id number] Specific gravity (U) [Rel density] 1.016 1 Normal 1.005-1.030 [facility]; [facility] Work Phone: Comment on above: PATIENT WAS FASTINGP ERFORMED BY: SHERLEY LabPolo StaufferNvvjcs[address]Dublin [place] [id number] Urobilinogen (U) [Mass/Vol] 0.2 mg/dL Normal 0.0-1.9 [facility]; [facility] Work Phone: Comment on above: PATIENT WAS FASTINGP ERFORMED BY: LabCoSouthern Ocean Medical CenterJdvhyf3056 [facility] [id number] Vitamin D Hydroxy (72838)Ord ered By: Roll Over Press Operator on 10-02-2014 25-hydroxyvitamin D [Mass/Vol] 13.6 ng/mL Abnormal 30.0-100.0 [facility]; [facility] Work Phone: Comment on above: Vitamin D deficiency has been defined by the [place] ofMedicine and an Endocrine Society practice guideline as alevel of serum 25-OH vitamin D less than 20 ng/mL (1,2).The Endocrine Society went on to further define vitamin Dinsufficiency as a level between 21 and 29 ng/mL (2).1. IOM ([place] of Medicine). 2010. Dietary reference intakes for calcium and D. [place]: The National Academies Press.2. Feng MF, Yumiko ATKINSON, Juan MCCARTHY, et al. Evaluation, treatment, and prevention of vitamin D deficiency: an Endocrine Society clinical practice guideline. JCEM. 2010; 96(7):1911-30. PATIENT WAS FASTINGP ERFORMED BY: Self-A-r-TSouthern Ocean Medical CenterHiukuq8229 [facility] [id number] Blood Glucose , Office ([phone])Ordered By: Edith Govea on 07-28-2012 Glucose Glucometer (BldC) [Moles/Vol] 127 1 Normal [facility]; [facility] Work Phone: HgA1C , Office ([phone])Ordere d By: Nerissa Rodriguez on 07-28-2012 HbA1c (Bld) [Mass fraction] 6.0 % Normal 4.6 - 7.1 [facility]; [facility] Work Phone: Blood Glucose , Office ([phone])Ordered By: Janay Edwards on 03-25-2012 Glucose Glucometer (BldC) [Moles/Vol] 151 1 Normal [facility]; [facility] Work Phone: HgA1C , Office ([phone])Ordere d By: Janay Edwards on 03-25-2012 HbA1c (Bld) [Mass fraction] 6.0 % Normal 4.6 - 7.1 [facility]; [facility] Work Phone: Blood Glucose , Office ([phone])Ordered By: Janay Edwards on 11-19-2011 Glucose Glucometer (BldC) [Moles/Vol] 141 1 Normal [facility]; [facility] Work Phone: HgA1C , Office ([phone])Ordere d By: Janay Edwards on 11-19-2011 HbA1c (Bld) [Mass fraction] 5.7 % Normal 4.6 - 7.1 [facility]; [facility] Work Phone: Urinalysis, Office ([id number])Or dered By: Edith Govea on 09-09-2010 Bilirubin Ql (U) Negative Normal Comprehe nsive Internal Medicine; [facility] Work Phone: Glucose Test strip (U) [Mass/Vol] Negative Normal [facility]; [facility] Work Phone: Ketones Ql (U) Negative Normal [facility]; [facility] Work Phone: Leukocyte esterase Test strip Ql (U) Small Normal [facility]; [facility] Work Phone: Nitrite Ql (U) Negative Normal [facility]; [facility] Work Phone: pH (U) 7.0 [pH] Normal [facility]; [facility] Work Phone: Protein Ql (U) Negative Normal [facility]; [facility] Work Phone: Specific gravity (U) [Rel density] 1.005 1 Normal [facility]; [facility] Work Phone: Urobilinogen (24H U) [Mass/Time] Normal Normal [facility]; [facility] Work Phone: Culture, urine Bacteria identified Cx Nom (U) Escherichia coli [facility] Work Phone: Vital Signs Date Time Vital Sign Value Performing Clinician Facility 05-01-2025 15:39-0400 Body height 170.[address] Martin Gutierrez MD Work Phone: 1(972)511-058228 [place] [address] 05-01-2025 15:39-0400 Body mass index (BMI) [Ratio] 29 kg/m2 Dr. Martin Gutierrez MD Work Phone: 9(675)694-658558 [place] [address] 05-01-2025 15:39-0400 Body temperature 98.2 [degF] Dr. Martin Gutierrez MD Work Phone: 7(508)972-409958 [place] [address] 05-01-2025 15:39-0400 Body weight 83.[address] Martin Gutierrez MD Work Phone: 7(936)514-650658 [place] [address] 05-01-2025 15:39-0400 Diastolic blood pressure 74 mm[Hg] Dr. Martin Gutierrez MD Work Phone: 7(562)245-839358 [place] [address] 05-01-2025 15:39-0400 Heart rate 71 /min Dr. Martin Gutierrez MD Work Phone: 1(631)577-420258 [place] [address] 05-01-2025 15:39-0400 Respiratory rate 18 /min Dr. Martin Gutierrez MD Work Phone: 6(186)355-901658 [place] [address] 05-01-2025 15:39-0400 SaO2% (BldA) [Mass fraction] 96 % Dr. Martin Gutierrez MD Work Phone: 9(484)389-177158 [place] [address] 05-01-2025 15:39-0400 Systolic blood pressure 145 mm[Hg] Dr. aMrtin Gutierrez MD Work Phone: 6(392)043-153228 [place] [address] 10-04-2024 10:55-0500 Body height 170.[address] Martin Gutierrez MD Work Phone: 1(559)800-169258 [place] [address] 10-04-2024 10:55-0500 Body mass index (BMI) [Ratio] 28.2 kg/m2 Dr. Martin Gutierrez MD Work Phone: 2(411)058-243628 [place] [address] 10-04-2024 10:55-0500 Body temperature 97.8 [degF] Dr. Martin Gutierrez MD Work Phone: 8(159)903-887558 [place] [address] 10-04-2024 10:55-0500 Body weight 81.[address] Martin Gutierrez MD Work Phone: 6(486)863-844028 [place] [address] 10-04-2024 10:55-0500 Diastolic blood pressure 74 mm[Hg] Dr. Martin Gutierrez MD Work Phone: 7(267)867-316428 [place] [address] 10-04-2024 10:55-0500 Heart rate 76 /min Dr. Martin Gutierrez MD Work Phone: 8(406)759-150258 [place] [address] 10-04-2024 10:55-0500 Respiratory rate 18 /min Dr. Martin Gutierrez MD Work Phone: 8(127)746-214458 [place] [address] 10-04-2024 10:55-0500 SaO2% (BldA) [Mass fraction] 95 % Dr. Martin Gutierrez MD Work Phone: 9(868)534-125258 [place] [address] 10-04-2024 10:55-0500 Systolic blood pressure 123 mm[Hg] Dr. Martin Gutierrez MD Work Phone: 6(366)934-407658 [place] [address] 09-28-2024 11:57-0500 Body temperature 97.9 [degF] Dr. Martin Gutierrez MD Work Phone: 0(743)744-740358 [place] [address] 09-28-2024 11:57-0500 Diastolic blood pressure 61 mm[Hg] Dr. Martin Gutierrez MD Work Phone: 1(395)562-658058 [place] [address] 09-28-2024 11:57-0500 Heart rate 80 /min Dr. Martin Gutierrez MD Work Phone: 3(295)544-275728 [place] [address] 09-28-2024 11:57-0500 Respiratory rate 20 /min Dr. Martin Gutierrez MD Work Phone: 6(143)685-020928 [place] [address] 09-28-2024 11:57-0500 SaO2% (BldA) [Mass fraction] 93 % Dr. Martin Gutierrez MD Work Phone: 7(933)937-323828 [place] [address] 09-28-2024 11:57-0500 Systolic blood pressure 131 mm[Hg] Dr. Martin Gutierrez MD Work Phone: 4(944)866-316128 [place] [address] 09-28-2024 09:17-0500 Inhaled oxygen flow rate 3 L/min Dr. Martin Gutierrez MD Work Phone: 8(155)543-409428 [place] [address] 09-28-2024 04:03-0500 Body mass index (BMI) [Ratio] 28.4 kg/m2 Dr. Martin Gutierrez MD Work Phone: 2(336)181-471728 [place] [address] 09-28-2024 04:03-0500 Body weight 82.[address] Martin Gutierrez MD Work Phone: 6(481)944-922128 [place] [address] 01-13-2024 14:58-0400 Body temperature 97.2 [degF] Dr. Martin Gutierrez MD Work Phone: 0(376)550-640328 [place] [address] 01-13-2024 14:58-0400 Diastolic blood pressure 54 mm[Hg] Dr. Martin Gutierrez MD Work Phone: 1(688)204-579128 [place] [address] 01-13-2024 14:58-0400 Heart rate 69 /min Dr. Martin Gutierrez MD Work Phone: 5(239)256-629228 [place] [address] 01-13-2024 14:58-0400 Respiratory rate 16 /min Dr. Martin Gutierrez MD Work Phone: 7(035)546-620528 [place] [address] 01-13-2024 14:58-0400 SaO2% (BldA) [Mass fraction] 94 % Dr. Martin Gutierrez MD Work Phone: 5(054)119-516628 [place] [address] 01-13-2024 14:58-0400 Systolic blood pressure 116 mm[Hg] Dr. Martin Gutierrez MD Work Phone: 1(715)319-601728 [place] [address] 01-13-2024 13:19-0400 Body mass index (BMI) [Ratio] 30.8 kg/m2 Dr. Martin Gutierrez MD Work Phone: 1(061)246-299728 [place] [address] 09-30-2023 13:26-0500 Body height 167.[address] Martin Gutierrez Work Phone: 3(206)936-022128 [place] [address] 09-30-2023 13:26-0500 Body mass index (BMI) [Ratio] 30.4 kg/m2 Dr. Martin Gutierrez Work Phone: 9(082)338-528928 [place] [address] 09-30-2023 13:26-0500 Body temperature 98.6 [degF] Dr. Martin Gutierrez Work Phone: 3(814)122-127028 [place] [address] 09-30-2023 13:26-0500 Body weight 85.[address] Martin Gutierrez Work Phone: 9(987)713-176828 [place] [address] 09-30-2023 13:26-0500 Diastolic blood pressure 72 mm[Hg] Dr. Martin Gutierrez Work Phone: 5(443)628-547528 [place] [address] 09-30-2023 13:26-0500 Heart rate 71 /min Dr. Martin Gutierrez Work Phone: 7(702)709-178658 [place] [address] 09-30-2023 13:26-0500 Respiratory rate 18 /min Dr. Martin Gutierrez Work Phone: 2(965)879-078058 [place] [address] 09-30-2023 13:26-0500 SaO2% (BldA) [Mass fraction] 96 % Dr. Martin Gutierrez Work Phone: 6(701)748-708328 [place] [address] 09-30-2023 13:26-0500 Systolic blood pressure 126 mm[Hg] Dr. Martin Gutierrez Work Phone: 1(288)200-555058 [place] [address] 04-15-2023 11:03-0400 Body height 167.[address] Martin Gutierrez Work Phone: 1(438)536-349358 [place] [address] 04-15-2023 11:01-0400 Body mass index (BMI) [Ratio] 31.6 kg/m2 Dr. Martin Gutierrez Work Phone: 0(525)442-230828 [place] [address] 04-15-2023 11:01-0400 Body temperature 98.5 [degF] Dr. Martin Gutierrez Work Phone: 7(526)076-692128 [place] [address] 04-15-2023 11:01-0400 Body weight 89.[address] Martin Gutierrez Work Phone: 6(216)539-656228 [place] [address] 04-15-2023 11:01-0400 Diastolic blood pressure 75 mm[Hg] Dr. Martin Gutierrez Work Phone: 0(274)418-881928 [place] [address] 04-15-2023 11:01-0400 Heart rate 70 /min Dr. Martin Gutierrez Work Phone: [facility] 04-15-2023 11:01-0400 Respiratory rate 16 /min Dr. Martin Gutierrez Work Phone: 9(052)050-617428 [place] [address] 04-15-2023 11:01-0400 SaO2% (BldA) [Mass fraction] 96 % Dr. Martin Gutierrez Work Phone: 1(202)463-870828 [place] [address] 04-15-2023 11:01-0400 Systolic blood pressure 172 mm[Hg] Dr. Martin Gutierrez Work Phone: 4(458)227-451228 [place] [address] 10-20-2022 07:46-0500 Body height 167.[address] Martin Gutierrez Work Phone: 9(464)654-085158 [place] [address] 10-20-2022 07:46-0500 Body mass index (BMI) [Ratio] 32.4 kg/m2 Dr. Martin Gutierrez Work Phone: 6(035)275-145558 [place] [address] 10-20-2022 07:46-0500 Body temperature 98.2 [degF] Dr. Martin Gutierrez Work Phone: 8(056)037-836458 [place] [address] 10-20-2022 07:46-0500 Body weight 91.[address] Martin Gutierrez Work Phone: 2(728)071-379958 [place] [address] 10-20-2022 07:46-0500 Diastolic blood pressure 75 mm[Hg] Dr. Martin Gutierrez Work Phone: 7(840)700-495258 [place] [address] 10-20-2022 07:46-0500 Heart rate 80 /min Dr. Martin Gutierrez Work Phone: 6(780)252-364458 [place] [address] 10-20-2022 07:46-0500 Respiratory rate 20 /min Dr. Martin Gutierrez Work Phone: 9(443)047-567658 [place] [address] 10-20-2022 07:46-0500 SaO2% (BldA) [Mass fraction] 95 % Dr. Martin Gutierrez Work Phone: 1(970)968-849658 [place] [address] 10-20-2022 07:46-0500 Systolic blood pressure 170 mm[Hg] Dr. Martin Gutierrez Work Phone: 3(416)566-519728 [place] [address] 09-02-2022 13:21-0500 Body mass index (BMI) [Ratio] 31.5 kg/m2 Dr. Martin Gutierrez Work Phone: [facility] 09-02-2022 13:21-0500 Body temperature 97.9 [degF] Dr. Martin Gutierrez Work Phone: [facility] 09-02-2022 13:21-0500 Body weight 88.[address] Martin Gutierrez Work Phone: [facility] 09-02-2022 13:21-0500 Diastolic blood pressure 68 mm[Hg] Dr. Martin Gutierrez Work Phone: 8(565)708-827428 [place] [address] 09-02-2022 13:21-0500 Heart rate 72 /min Dr. Martin Gutierrez Work Phone: 8(575)906-935028 [place] [address] 09-02-2022 13:21-0500 Respiratory rate 16 /min Dr. Martin Gutierrez Work Phone: [facility] 09-02-2022 13:21-0500 SaO2% (BldA) [Mass fraction] 94 % Dr. Martin Gutierrez Work Phone: [facility] 09-02-2022 13:21-0500 Systolic blood pressure 133 mm[Hg] Dr. Martin Gutierrez Work Phone: [facility] 02-19-2022 14:08-0400 Body height 167.[address] Martin Gutierrez Work Phone: [facility] Work Phone: 02-19-2022 14:04-0400 Body mass index (BMI) [Ratio] 32 kg/m2 Dr. Martin Gutierrez Work Phone: [facility] Work Phone: 02-19-2022 14:04-0400 Body temperature 97.8 [degF] Dr. Martin Gutierrez Work Phone: [facility] Work Phone: 02-19-2022 14:04-0400 Body weight 90.[address] Martin Gutierrez Work Phone: [facility] Work Phone: 02-19-2022 14:04-0400 Diastolic blood pressure 75 mm[Hg] Dr. Martin Gutierrez Work Phone: [facility] Work Phone: 02-19-2022 14:04-0400 Heart rate 81 /min Dr. Martin Gutierrez Work Phone: [facility] Work Phone: 02-19-2022 14:04-0400 Respiratory rate 15 /min Dr. Martin Gutierrez Work Phone: [facility] Work Phone: 02-19-2022 14:04-0400 SaO2% (BldA) [Mass fraction] 91 % Dr. Martin Gutierrez Work Phone: [facility] Work Phone: 02-19-2022 14:04-0400 Systolic blood pressure 132 mm[Hg] Dr. Martin Gutierrez Work Phone: [facility] Work Phone: 11-06-2021 14:44-0400 Body height 167.[address] Martin Gutierrez Work Phone: [facility] Work Phone: 11-06-2021 14:44-0400 Body mass index (BMI) [Ratio] 32.8 kg/m2 Dr. Martin Gutierrez Work Phone: [facility] Work Phone: 11-06-2021 14:44-0400 Body temperature 98.6 [degF] Dr. Martin Gutierrez Work Phone: [facility] Work Phone: 11-06-2021 14:44-0400 Body weight 92.[address] Martin Gutierrez Work Phone: [facility] Work Phone: 11-06-2021 14:44-0400 Diastolic blood pressure 63 mm[Hg] Dr. Martin Gutierrez Work Phone: [facility] Work Phone: 11-06-2021 14:44-0400 Heart rate 73 /min Dr. Martin Gutierrez Work Phone: [facility] Work Phone: 11-06-2021 14:44-0400 Respiratory rate 14 /min Dr. Martin Gutierrez Work Phone: [facility] Work Phone: 11-06-2021 14:44-0400 SaO2% (BldA) [Mass fraction] 95 % Dr. Martin Gutierrez Work Phone: [facility] Work Phone: 11-06-2021 14:44-0400 Systolic blood pressure 105 mm[Hg] Dr. Martin Gutierrez Work Phone: [facility] Work Phone: 10-10-2021 14:52-0500 Diastolic blood pressure 49 mm[Hg] Dr. Martin Gutierrez Work Phone: [facility] 10-10-2021 14:52-0500 Heart rate 68 /min Dr. Martin Gutierrez Work Phone: [facility] 10-10-2021 14:52-0500 Respiratory rate 16 /min Dr. Martin Gutierrez Work Phone: [facility] 10-10-2021 14:52-0500 SaO2% (BldA) [Mass fraction] 97 % Dr. Martin Gutierrez Work Phone: [facility] 10-10-2021 14:52-0500 Systolic blood pressure 119 mm[Hg] Dr. Martin Gutierrez Work Phone: [facility] 10-10-2021 13:52-0500 Diastolic blood pressure 49 mm[Hg] Dr. Martin Gutierrez Work Phone: [facility] Work Phone: 10-10-2021 13:52-0500 Heart rate 68 /min Dr. Martin Gutierrez Work Phone: [facility] Work Phone: 10-10-2021 13:52-0500 Respiratory rate 16 /min Dr. Martin Gutierrez Work Phone: [facility] Work Phone: 10-10-2021 13:52-0500 SaO2% (BldA) [Mass fraction] 97 % Dr. Martin Gutierrez Work Phone: [facility] Work Phone: 10-10-2021 13:52-0500 Systolic blood pressure 119 mm[Hg] Dr. Martin Gutierrez Work Phone: [facility] Work Phone: 10-10-2021 12:56-0500 Body mass index (BMI) [Ratio] 33 kg/m2 Dr. Martin Gutierrez Work Phone: [facility] 10-10-2021 12:56-0500 Body temperature 98 [degF] Dr. Martin Gutierrez Work Phone: [facility] 10-10-2021 12:56-0500 Body weight 92.[address] Martin Gutierrez Work Phone: [facility] 10-10-2021 11:56-0500 Body mass index (BMI) [Ratio] 33 kg/m2 Dr. Martin Gutierrez Work Phone: [facility] Work Phone: 10-10-2021 11:56-0500 Body temperature 98 [degF] Dr. Martin Gutierrez Work Phone: [facility] Work Phone: 10-10-2021 11:56-0500 Body weight 92.[address] Martin Gutierrez Work Phone: [facility] Work Phone: 09-17-2021 12:12-0500 Body mass index (BMI) [Ratio] 33.3 kg/m2 Dr. Martin Gutierrez Work Phone: [facility] Work Phone: 09-17-2021 12:12-0500 Body temperature 98 [degF] Dr. Martin Gutierrez Work Phone: [facility] Work Phone: 09-17-2021 12:12-0500 Body weight 93.[address] Martin Gutierrez Work Phone: [facility] Work Phone: 09-17-2021 12:12-0500 Diastolic blood pressure 74 mm[Hg] Dr. Martin Gutierrez Work Phone: [facility] Work Phone: 09-17-2021 12:12-0500 Heart rate 73 /min Dr. Martin Gutierrez Work Phone: [facility] Work Phone: 09-17-2021 12:12-0500 Respiratory rate 16 /min Dr. Martin Gutierrez Work Phone: [facility] Work Phone: 09-17-2021 12:12-0500 SaO2% (BldA) [Mass fraction] 98 % Dr. Martin Gutierrez Work Phone: [facility] Work Phone: 09-17-2021 12:12-0500 Systolic blood pressure 131 mm[Hg] Dr. Martin Gutierrez Work Phone: [facility] Work Phone: 01-15-2017 11:10-0400 Body height 170.18 cm Janene Vallecillo Work Phone: [facility] Work Phone: 01-15-2017 11:10-0400 Body mass index (BMI) [Ratio] 41.41 kg/m2 Janene Vallecillo Work Phone: [facility] Work Phone: 01-15-2017 11:10-0400 Body weight 119.93 kg Janene Vallecillo Work Phone: [facility] Work Phone: 01-15-2017 11:10-0400 Diastolic blood pressure 88 mm[Hg] Janene aVllecillo Work Phone: [facility] Work Phone: 01-15-2017 11:10-0400 Heart rate 64 /min Janene Vallecillo Work Phone: [facility] Work Phone: 01-15-2017 11:10-0400 Respiratory rate 20 /min Janene Vallecillo Work Phone: [facility] Work Phone: 01-15-2017 11:10-0400 Systolic blood pressure 160 mm[Hg] Janene Vallecillo Work Phone: [facility] Work Phone: 01-15-2017 11:10-0400 Weight 119.93 kg Mena Holman RN [facility] Work Phone: 07-15-2016 08:19-0500 Body mass index (BMI) [Ratio] 37.59 kg/m2 Tali Parikh Work Phone: [facility] Work Phone: 07-15-2016 08:19-0500 Body surface area Derived from formula 2.19 m2 Tali Parikh Work Phone: [facility] Work Phone: 07-15-2016 08:19-0500 Body weight 108.86 kg Tali Parikh Work Phone: [facility] Work Phone: 07-15-2016 08:19-0500 Diastolic blood pressure 72 mm[Hg] Tali Parikh Work Phone: [facility] Work Phone: 07-15-2016 08:19-0500 Heart rate 56 /min Tali Parikh Work Phone: [facility] Work Phone: 07-15-2016 08:19-0500 Respiratory rate 18 /min Tali Parikh Work Phone: [facility] Work Phone: 07-15-2016 08:19-0500 Systolic blood pressure 132 mm[Hg] Tali Parikh Work Phone: [facility] Work Phone: 08-30-2015 10:55-0500 Body height 170.18 cm Janay Edwards RN [facility]; [facility] Work Phone: 08-30-2015 10:55-0500 Body mass index (BMI) [Ratio] 39.21 kg/m2 Janay Edwards RN [facility]; [facility] Work Phone: 08-30-2015 10:55-0500 Body surface area Derived from formula 2.22 m2 Janay Edwards RN [facility]; [facility] Work Phone: 08-30-2015 10:55-0500 Body weight 113.57 kg Janay Edwards RN [facility]; [facility] Work Phone: 08-30-2015 10:55-0500 Diastolic blood pressure 80 mm[Hg] Janay Edwards RN [facility]; [facility] Work Phone: Comment on above: Patient Position: Sitting; Cuff Location : Left Arm; Cuff Size: Large 08-30-2015 10:55-0500 Heart rate 65 /min Janay Edwards RN [facility]; [facility] Medicine Work Phone: Comment on above: Pattern: Regular 08-30-2015 10:55-0500 Respiratory rate 18 /min Janay Edwards RN [facility]; [facility] Work Phone: Comment on above: Pattern: Unlabored 08-30-2015 10:55-0500 SaO2% (BldA) [Mass fraction] 98 % Janay Edwards RN [facility]; [facility] Work Phone: Comment on above: Room air 08-30-2015 10:55-0500 Systolic blood pressure 162 mm[Hg] Janay Edwards RN [facility]; [facility] Work Phone: Comment on above: Patient Position: Sitting; Cuff Location : Left Arm; Cuff Size: Large 07-26-2015 09:18-0500 Body height 170.18 cm Janay Edwards RN [facility]; [facility] Work Phone: 07-26-2015 09:18-0500 Body mass index (BMI) [Ratio] 39.84 kg/m2 Janay Edwards RN [facility]; [facility] Work Phone: 07-26-2015 09:18-0500 Body surface area Derived from formula 2.24 m2 Janay Edwards RN [facility]; [facility] Work Phone: 07-26-2015 09:18-0500 Body weight 115.38 kg Janay Edwards RN [facility]; [facility] Work Phone: 07-26-2015 09:18-0500 Diastolic blood pressure 80 mm[Hg] Janay Edwards RN [facility]; [facility] Work Phone: Comment on above: Patient Position: Sitting; Cuff Location : Left Arm; Cuff Size: Large 07-26-2015 09:18-0500 Heart rate 61 /min Janay Edwards RN [facility]; [facility] Work Phone: Comment on above: Pattern: Regular 07-26-2015 09:18-0500 Respiratory rate 20 /min Janay Edwards RN [facility]; [facility] Work Phone: Comment on above: Pattern: Unlabored 07-26-2015 09:18-0500 SaO2% (BldA) [Mass fraction] 95 % Janay Edwards RN [facility]; [facility] Work Phone: Comment on above: Room air 07-26-2015 09:18-0500 Systolic blood pressure 122 mm[Hg] Janay Edwards RN [facility]; [facility] Work Phone: Comment on above: Patient Position: Sitting; Cuff Location : Left Arm; Cuff Size: Large 01-29-2015 11:30-0400 Body height 170.18 cm Edith Govea RN [facility]; [facility] Work Phone: 01-29-2015 11:30-0400 Body mass index (BMI) [Ratio] 39.99 kg/m2 Edith Govea RN [facility]; [facility] Work Phone: 01-29-2015 11:30-0400 Body surface area Derived from formula 2.24 m2 Edith Govea RN [facility]; [facility] Work Phone: 01-29-2015 11:30-0400 Body temperature 96.7 [degF] Edith Govea RN [facility]; [facility] Work Phone: Comment on above: Method: Temporal 01-29-2015 11:30-0400 Body weight 115.81 kg Edith Govea RN [facility]; [facility] Work Phone: 01-29-2015 11:30-0400 Diastolic blood pressure 82 mm[Hg] Edith Govea RN [facility]; [facility] Work Phone: Comment on above: Patient Position: Sitting; Cuff Location : Left Arm; Cuff Size: Standard 01-29-2015 11:30-0400 Heart rate 68 /min Edith Govea RN [facility]; [facility] Work Phone: Comment on above: Pattern: Regular 01-29-2015 11:30-0400 Respiratory rate 16 /min Edith Govea RN [facility]; [facility] Work Phone: Comment on above: Pattern: Unlabored 01-29-2015 11:30-0400 SaO2% (BldA) [Mass fraction] 98 % Edith Govea RN [facility]; [facility] Work Phone: Comment on above: Room air 01-29-2015 11:30-0400 Systolic blood pressure 148 mm[Hg] Edith Govea RN [facility]; [facility] Work Phone: Comment on above: Patient Position: Sitting; Cuff Location : Left Arm; Cuff Size: Standard 10-11-2014 11:23-0500 Body height 170.18 cm Janay Edwards RN [facility]; [facility] Work Phone: 10-11-2014 11:23-0500 Body mass index (BMI) [Ratio] 41.55 kg/m2 Janay Edwards RN [facility]; [facility] Work Phone: 10-11-2014 11:23-0500 Body surface area Derived from formula 2.28 m2 Janay Edwards RN [facility]; [facility] Work Phone: 10-11-2014 11:23-0500 Body weight 120.35 kg Janay Edwards RN [facility]; [facility] Work Phone: 10-11-2014 11:23-0500 Diastolic blood pressure 78 mm[Hg] Janay Edwards RN [facility]; [facility] Work Phone: Comment on above: Patient Position: Sitting; Cuff Location : Left Arm; Cuff Size: Large 10-11-2014 11:23-0500 Heart rate 66 /min Janay Edwards RN [facility]; [facility] Work Phone: Comment on above: Pattern: Regular 10-11-2014 11:23-0500 Respiratory rate 18 /min Janay Edwards RN [facility]; [facility] Work Phone: Comment on above: Pattern: Unlabored 10-11-2014 11:23-0500 SaO2% (BldA) [Mass fraction] 96 % Janay Edwards RN [facility]; [facility] Work Phone: Comment on above: Room air 10-11-2014 11:23-0500 Systolic blood pressure 148 mm[Hg] Janay Edwards RN [facility]; [facility] Work Phone: Comment on above: Patient Position: Sitting; Cuff Location : Left Arm; Cuff Size: Large 10-02-2014 11:48-0500 Body height 170.18 cm Janay Edwards RN [facility]; [facility] Work Phone: 10-02-2014 11:48-0500 Body mass index (BMI) [Ratio] 41.71 kg/m2 Janay Edwards RN [facility]; [facility] Work Phone: 10-02-2014 11:48-0500 Body surface area Derived from formula 2.28 m2 Janay Edwards RN [facility]; [facility] Work Phone: 10-02-2014 11:48-0500 Body weight 120.8 kg Janay Edwards RN [facility]; [facility] Work Phone: 10-02-2014 11:48-0500 Diastolic blood pressure 78 mm[Hg] Janay Edwards RN [facility]; [facility] Work Phone: Comment on above: Patient Position: Sitting; Cuff Location : Left Arm; Cuff Size: Large 10-02-2014 11:48-0500 Heart rate 67 /min Janay Edwards RN [facility]; [facility] Work Phone: Comment on above: Pattern: Regular 10-02-2014 11:48-0500 Respiratory rate 18 /min Janay Edwards RN [facility]; [facility] Work Phone: Comment on above: Pattern: Unlabored 10-02-2014 11:48-0500 SaO2% (BldA) [Mass fraction] 95 % Janay Edwards RN [facility]; [facility] Work Phone: Comment on above: Room air 10-02-2014 11:48-0500 Systolic blood pressure 138 mm[Hg] Janay Edwards RN [facility]; [facility] Work Phone: Comment on above: Patient Position: Sitting; Cuff Location : Left Arm; Cuff Size: Large 08-30-2014 11:28-0500 Body height 170.18 cm Janay Edwards RN [facility]; [facility] Work Phone: 08-30-2014 11:28-0500 Body mass index (BMI) [Ratio] 41.35 kg/m2 Janay Edwards RN [facility]; [facility] Work Phone: 08-30-2014 11:28-0500 Body surface area Derived from formula 2.28 m2 Janay Edwards RN [facility]; [facility] Work Phone: 08-30-2014 11:28-0500 Body weight 119.75 kg Janay Edwards RN [facility]; [facility] Work Phone: 08-30-2014 11:28-0500 Diastolic blood pressure 80 mm[Hg] Janay Edwards RN [facility]; [facility] Work Phone: Comment on above: Patient Position: Sitting; Cuff Location : Left Arm; Cuff Size: Large 08-30-2014 11:28-0500 Heart rate 60 /min Janay Edwards RN [facility]; [facility] Work Phone: Comment on above: Pattern: Regular 08-30-2014 11:28-0500 Respiratory rate 20 /min Janay Edwards RN [facility]; [facility] Work Phone: Comment on above: Pattern: Unlabored 08-30-2014 11:28-0500 SaO2% (BldA) [Mass fraction] 97 % Janay Edwards RN [facility]; [facility] Work Phone: Comment on above: Room air 08-30-2014 11:28-0500 Systolic blood pressure 142 mm[Hg] Janay Edwards RN [facility]; [facility] Work Phone: Comment on above: Patient Position: Sitting; Cuff Location : Left Arm; Cuff Size: Large 03-02-2014 12:07-0400 Body height 170.18 cm Tali Parikh Work Phone: [facility] Work Phone: 10-28-2013 11:15-0500 Body height 170.18 cm Lisa Rosenbaum CMA [facility]; [facility] Work Phone: 10-28-2013 11:15-0500 Body mass index (BMI) [Ratio] 44.64 kg/m2 Lisa Rosenbaum CMA [facility]; [facility] Work Phone: 10-28-2013 11:15-0500 Body surface area Derived from formula 2.35 m2 Lisa Rosenbaum CMA [facility]; [facility] Work Phone: 10-28-2013 11:15-0500 Body temperature 98.4 [degF] Lisa Rosenbaum CMA [facility]; [facility] Work Phone: Comment on above: Method: Oral 10-28-2013 11:15-0500 Body weight 129.28 kg Lisa Rosenbaum [facility] Work Phone: 10-28-2013 11:15-0500 Diastolic blood pressure 92 mm[Hg] Lisa Rosenbaum CMA [facility]; [facility] Work Phone: Comment on above: Patient Position: Sitting; Cuff Location : Left Arm; Cuff Size: Standard 10-28-2013 11:15-0500 Heart rate 62 /min Lisa Hufflizettenitish [facility] Work Phone: Comment on above: Pattern: Regular 10-28-2013 11:15-0500 Respiratory rate 16 /min Lisa Rosenbaum [facility] Work Phone: Comment on above: Pattern: Unlabored 10-28-2013 11:15-0500 SaO2% (BldA) [Mass fraction] 97 % Lisa Rosenbaum [facility] Work Phone: Comment on above: Room air 10-28-2013 11:15-0500 Systolic blood pressure 152 mm[Hg] Lisa Rosenbaum [facility] Work Phone: Comment on above: Patient Position: Sitting; Cuff Location : Left Arm; Cuff Size: Standard 07-28-2012 10:35-0500 Body height 170.18 cm Edith [facility]; [facility] Work Phone: 07-28-2012 10:35-0500 Body mass index (BMI) [Ratio] 43.7 kg/m2 Edith [facility]; [facility] Work Phone: 07-28-2012 10:35-0500 Body surface area Derived from formula 2.33 m2 Edith Govea RN [facility]; [facility] Work Phone: 07-28-2012 10:35-0500 Body temperature 97 [degF] Edith [facility]; [facility] Work Phone: Comment on above: Method: Temporal 07-28-2012 10:35-0500 Body weight 126.55 kg Edith Govea RN [facility]; [facility] Work Phone: 07-28-2012 10:35-0500 Diastolic blood pressure 72 mm[Hg] Edith Govea RN [facility]; [facility] Work Phone: Comment on above: Patient Position: Sitting; Cuff Location : Left Arm; Cuff Size: Standard 07-28-2012 10:35-0500 Heart rate 78 /min Edith Govea RN [facility]; [facility] Work Phone: Comment on above: Pattern: Regular 07-28-2012 10:35-0500 Respiratory rate 18 /min Edith Govea RN [facility]; [facility] Work Phone: Comment on above: Pattern: Unlabored 07-28-2012 10:35-0500 SaO2% (BldA) [Mass fraction] 97 % Edith Govea RN [facility]; [facility] Work Phone: Comment on above: Room air 07-28-2012 10:35-0500 Systolic blood pressure 140 mm[Hg] Edith Govea RN [facility]; [facility] Work Phone: Comment on above: Patient Position: Sitting; Cuff Location : Left Arm; Cuff Size: Standard 07-01-2012 09:41-0500 Body height 170.18 cm Nerissa Beckhamon DO Work Phone: [facility]; [facility] Work Phone: 07-01-2012 09:41-0500 Body mass index (BMI) [Ratio] 43.12 kg/m2 Nerissa Beckhamon DO Work Phone: [facility]; [facility] Work Phone: 07-01-2012 09:41-0500 Body surface area Derived from formula 2.32 m2 Nerissa Ismael DO Work Phone: [facility]; [facility] Work Phone: 07-01-2012 09:41-0500 Body temperature 97.8 [degF] Nerissa Rodriguez DO Work Phone: [facility]; [facility] Work Phone: Comment on above: Method: Oral 07-01-2012 09:41-0500 Body weight 124.88 kg Nerissa Rodriguez DO Work Phone: [facility]; [facility] Work Phone: 07-01-2012 09:41-0500 Diastolic blood pressure 60 mm[Hg] Nerissa Rodriguez DO Work Phone: [facility]; [facility] Work Phone: Comment on above: Patient Position: Sitting; Cuff Location : Left Arm; Cuff Size: Standard 07-01-2012 09:41-0500 Heart rate 56 /min Nerissa Rodriguez DO Work Phone: [facility]; [facility] Work Phone: Comment on above: Pattern: Regular 07-01-2012 09:41-0500 Respiratory rate 16 /min Nerissa Rodriguez DO Work Phone: [facility]; [facility] Work Phone: Comment on above: Pattern: Unlabored 07-01-2012 09:41-0500 Systolic blood pressure 122 mm[Hg] Nerissa Rodriguez DO Work Phone: [facility]; [facility] Work Phone: Comment on above: Patient Position: Sitting; Cuff Location : Left Arm; Cuff Size: Standard 03-25-2012 11:02-0400 Body height 170.18 cm Janay Edwards RN [facility]; [facility] Work Phone: 03-25-2012 11:02-0400 Body mass index (BMI) [Ratio] 43.08 kg/m2 Janay Edwards RN [facility]; [facility] Work Phone: 03-25-2012 11:02-0400 Body surface area Derived from formula 2.32 m2 Janay Maciel [facility]; [facility] Work Phone: 03-25-2012 11:02-0400 Body weight 124.77 kg Janay Edwards RN [facility]; [facility] Work Phone: 03-25-2012 11:02-0400 Diastolic blood pressure 78 mm[Hg] Janay Edwards RN [facility]; [facility] Work Phone: Comment on above: Patient Position: Sitting; Cuff Location : Left Arm; Cuff Size: Large 03-25-2012 11:02040 Heart rate 60 /min Janay Edwards RN [facility]; [facility] Work Phone: Comment on above: Pattern: Regular 03-25-2012 11:02-0400 Respiratory rate 20 /min Janay Edwards RN [facility]; [facility] Work Phone: Comment on above: Pattern: Unlabored 03-25-2012 11:02-0400 Systolic blood pressure 138 mm[Hg] Janay Edwards RN [facility]; [facility] Work Phone: Comment on above: Patient Position: Sitting; Cuff Location : Left Arm; Cuff Size: Large 11-21-2011 11:16-0400 Body height 170.18 cm Na Eller LPN [facility]; [facility] Work Phone: 11-21-2011 11:16-0400 Body mass index (BMI) [Ratio] 42.29 kg/m2 Na Eller LPN [facility]; [facility] Work Phone: 11-21-2011 11:16-0400 Body surface area Derived from formula 2.3 m2 Na Eller LPN [facility]; [facility] Work Phone: 11-21-2011 11:16-0400 Body temperature 96.8 [degF] Na Eller LPN [facility]; [facility] Work Phone: Comment on above: Method: Oral 11-21-2011 11:16-0400 Body weight 122.47 kg Na Eller LPN [facility]; [facility] Work Phone: 11-21-2011 11:16-0400 Diastolic blood pressure 80 mm[Hg] Na Eller LPN [facility]; [facility] Work Phone: Comment on above: Patient Position: Sitting; Cuff Location : Left Arm; Cuff Size: Standard 11-21-2011 11:16-0400 Heart rate 84 /min Na Eller LAYA [facility]; [facility] Work Phone: Comment on above: Pattern: Regular 11-21-2011 11:16-0400 Respiratory rate 17 /min Na Rafita ASIF [facility]; [facility] Work Phone: 11-21-2011 11:16-0400 SaO2% (BldA) [Mass fraction] 97 % Na Cruzanne marie ASIF [facility]; [facility] Work Phone: Comment on above: Room air 11-21-2011 11:16-0400 Systolic blood pressure 134 mm[Hg] Na Eller LPN [facility]; [facility] Work Phone: Comment on above: Patient Position: Sitting; Cuff Location : Left Arm; Cuff Size: Standard 11-19-2011 10:39-0400 Body height 170.18 cm Janay Edwards RN [facility]; [facility] Work Phone: 11-19-2011 10:39-0400 Body mass index (BMI) [Ratio] 42.76 kg/m2 Janay Edwards RN [facility]; [facility] Work Phone: 11-19-2011 10:39-0400 Body surface area Derived from formula 2.31 m2 Janay Edwards RN [facility]; [facility] Work Phone: 11-19-2011 10:39-0400 Body weight 123.83 kg Janay Edwards RN [facility]; [facility] Work Phone: 11-19-2011 10:39-0400 Diastolic blood pressure 70 mm[Hg] Janay Edwards RN [facility]; [facility] Work Phone: Comment on above: Patient Position: Sitting; Cuff Location : Left Arm; Cuff Size: Large 11-19-2011 10:39-0400 Heart rate 60 /min Janay Edwards RN [facility]; [facility] Work Phone: Comment on above: Pattern: Regular 11-19-2011 10:39-0400 Respiratory rate 20 /min Janay Edwards RN [facility]; [facility] Work Phone: Comment on above: Pattern: Unlabored 11-19-2011 10:39-0400 Systolic blood pressure 122 mm[Hg] Janay Edwards RN [facility]; [facility] Work Phone: Comment on above: Patient Position: Sitting; Cuff Location : Left Arm; Cuff Size: Large 11-07-2011 12:17-0400 Body height 170.18 cm Janay Edwards RN [facility]; [facility] Work Phone: 11-07-2011 12:17-0400 Body mass index (BMI) [Ratio] 42.76 kg/m2 Janay Edwards RN [facility]; [facility] Work Phone: 11-07-2011 12:17-0400 Body surface area Derived from formula 2.31 m2 Janay Edwards RN [facility]; [facility] Work Phone: 11-07-2011 12:17-0400 Body weight 123.83 kg Janay Edwards RN [facility]; [facility] Work Phone: 11-07-2011 12:17-0400 Diastolic blood pressure 80 mm[Hg] Janay Edwards RN [facility]; [facility] Work Phone: Comment on above: Patient Position: Sitting; Cuff Location : Left Arm; Cuff Size: Large 11-07-2011 12:17-0400 Heart rate 60 /min Janay Edwards RN [facility]; [facility] Work Phone: Comment on above: Pattern: Regular 11-07-2011 12:17-0400 Respiratory rate 20 /min Janay Edwards RN [facility]; [facility] Work Phone: Comment on above: Pattern: Unlabored 11-07-2011 12:17-0400 Systolic blood pressure 128 mm[Hg] Janay Edwards RN [facility]; [facility] Work Phone: Comment on above: Patient Position: Sitting; Cuff Location : Left Arm; Cuff Size: Large 10-06-2011 16:01-0500 Body height 170.18 cm Na Eller LPN [facility]; [facility] Work Phone: 10-06-2011 16:01-0500 Body mass index (BMI) [Ratio] 43.67 kg/m2 Na Eller LPN [facility]; [facility] Work Phone: 10-06-2011 16:01-0500 Body surface area Derived from formula 2.33 m2 Na Eller LPN [facility]; [facility] Work Phone: 10-06-2011 16:01-0500 Body temperature 97.6 [degF] Na Eller LPN [facility]; [facility] Work Phone: Comment on above: Method: Oral 10-06-2011 16:01-0500 Body weight 126.46 kg Na Eller LPN [facility]; [facility] Work Phone: 10-06-2011 16:01-0500 Diastolic blood pressure 84 mm[Hg] Na Eller LPN [facility]; [facility] Work Phone: Comment on above: Patient Position: Sitting; Cuff Location : Left Arm; Cuff Size: Standard 10-06-2011 16:01-0500 Heart rate 78 /min Na Eller LPN [facility]; [facility] Work Phone: Comment on above: Pattern: Regular 10-06-2011 16:01-0500 Respiratory rate 18 /min Na Eller LPN [facility]; [facility] Work Phone: Comment on above: Pattern: Unlabored 10-06-2011 16:01-0500 Systolic blood pressure 150 mm[Hg] Na Eller LPN [facility]; [facility] Work Phone: Comment on above: Patient Position: Sitting; Cuff Location : Left Arm; Cuff Size: Standard 01-13-2011 15:03-0400 Body height 170.18 cm Na Eller LPN [facility]; [facility] Work Phone: 01-13-2011 15:03-0400 Body mass index (BMI) [Ratio] 43.67 kg/m2 Na Eller LPN [facility]; [facility] Work Phone: 01-13-2011 15:03-0400 Body surface area Derived from formula 2.33 m2 Na Eller LPN [facility]; [facility] Work Phone: 01-13-2011 15:03-0400 Body temperature 97.3 [degF] Na Eller LPN [facility]; [facility] Work Phone: Comment on above: Method: Oral 01-13-2011 15:03-0400 Body weight 126.46 kg Na Eller [employer] [facility]; [facility] Work Phone: 01-13-2011 15:03-0400 Diastolic blood pressure 86 mm[Hg] Na Eller LPN [facility]; [facility] Work Phone: Comment on above: Patient Position: Sitting; Cuff Location : Left Arm; Cuff Size: Standard 01-13-2011 15:03-0400 Heart rate 82 /min Na Eller LPN [facility]; [facility] Work Phone: Comment on above: Pattern: Regular 01-13-2011 15:03-0400 Respiratory rate 18 /min Na Eller LPN [facility]; [facility] Work Phone: Comment on above: Pattern: Unlabored 01-13-2011 15:03-0400 Systolic blood pressure 144 mm[Hg] Na Eller LPN [facility]; [facility] Work Phone: Comment on above: Patient Position: Sitting; Cuff Location : Left Arm; Cuff Size: Standard 09-16-2010 08:30-0500 Body height 170.18 cm Edith Govea RN [facility]; [facility] Work Phone: 09-16-2010 08:30-0500 Body mass index (BMI) [Ratio] 43.67 kg/m2 Edith Govea RN [facility]; [facility] Work Phone: 09-16-2010 08:30-0500 Body surface area Derived from formula 2.33 m2 Edith Govea RN [facility]; [facility] Work Phone: 09-16-2010 08:30-0500 Body temperature 98.1 [degF] Edith Govea RN [facility]; [facility] Work Phone: Comment on above: Method: Oral 09-16-2010 08:30-0500 Body weight 126.46 kg Edith Govea RN [facility]; [facility] Work Phone: 09-16-2010 08:30-0500 Diastolic blood pressure 80 mm[Hg] Edith Govea RN [facility]; [facility] Work Phone: Comment on above: Patient Position: Sitting; Cuff Location : Left Arm; Cuff Size: Standard 09-16-2010 08:30-0500 Heart rate 76 /min Edith Govea RN [facility]; [facility] Work Phone: Comment on above: Pattern: Regular 09-16-2010 08:30-0500 Respiratory rate 18 /min Edith Govea RN [facility]; [facility] Work Phone: Comment on above: Pattern: Unlabored 09-16-2010 08:30-0500 Systolic blood pressure 138 mm[Hg] Edith Govea RN [facility]; [facility] Work Phone: Comment on above: Patient Position: Sitting; Cuff Location : Left Arm; Cuff Size: Standard 09-09-2010 16:31-0500 Body height 170.18 cm Na Eller LPN [facility]; [facility] Work Phone: 09-09-2010 16:31-0500 Body mass index (BMI) [Ratio] 43.56 kg/m2 Na Eller LPN [facility]; [facility] Work Phone: 09-09-2010 16:31-0500 Body surface area Derived from formula 2.33 m2 Na Eller LPN [facility]; [facility] Work Phone: 09-09-2010 16:31-0500 Body temperature 97.7 [degF] Na Eller LPN [facility]; [facility] Work Phone: Comment on above: Method: Oral 09-09-2010 16:31-0500 Body weight 126.16 kg Na Eller LAYA [facility]; [facility] Work Phone: 09-09-2010 16:31-0500 Diastolic blood pressure 78 mm[Hg] Na Eller LAYA [facility]; [facility] Work Phone: Comment on above: Patient Position: Sitting; Cuff Location : Left Arm; Cuff Size: Standard 09-09-2010 16:31-0500 Heart rate 78 /min Na Eller LAYA [facility]; [facility] Work Phone: Comment on above: Pattern: Regular 09-09-2010 16:31-0500 Respiratory rate 18 /min Na Eller LAYA [facility]; [facility] Work Phone: Comment on above: Pattern: Unlabored 09-09-2010 16:31-0500 Systolic blood pressure 124 mm[Hg] Na Eller LAYA [facility]; [facility] Work Phone: Comment on above: Patient Position: Sitting; Cuff Location : Left Arm; Cuff Size: Standard 05-20-2010 16:48-0400 SaO2% (BldA) [Mass fraction] 89 % Edith Govea RN [facility]; [facility] Work Phone: Comment on above: Room air 05-20-2010 16:21-0400 Body height 170.18 cm Na Rafita ASIF [facility]; [facility] Work Phone: 05-20-2010 16:21-0400 Body mass index (BMI) [Ratio] 43.56 kg/m2 Na Rafita ASIF [facility]; [facility] Work Phone: 05-20-2010 16:21-0400 Body surface area Derived from formula 2.33 m2 Na Rafita ASIF [facility]; [facility] Work Phone: 05-20-2010 16:21-0400 Body temperature 97.6 [degF] Na Eller LPN [facility]; [facility] Work Phone: Comment on above: Method: Oral 05-20-2010 16:21-0400 Body weight 126.16 kg Na Eller LPN [facility]; [facility] Work Phone: 05-20-2010 16:21-0400 Diastolic blood pressure 82 mm[Hg] Na Eller LPN [facility]; [facility] Work Phone: Comment on above: Patient Position: Sitting; Cuff Location : Left Arm; Cuff Size: Standard 05-20-2010 16:21-0400 Heart rate 70 /min Na Eller LPN [facility]; [facility] Work Phone: Comment on above: Pattern: Regular 05-20-2010 16:21-0400 Respiratory rate 20 /min Na Eller LPN [facility]; [facility] Work Phone: Comment on above: Pattern: Unlabored 05-20-2010 16:21-0400 SaO2% (BldA) [Mass fraction] 89 % Na Eller LPN [facility]; [facility] Work Phone: Comment on above: Room air 05-20-2010 16:21-0400 Systolic blood pressure 128 mm[Hg] Na Eller LPN [facility]; [facility] Work Phone: Comment on above: Patient Position: Sitting; Cuff Location : Left Arm; Cuff Size: Standard 04-25-2010 10:020400 Body height 170.18 cm Janay Edwards RN [facility]; [facility] Work Phone: 04-25-2010 10:02-0400 Body mass index (BMI) [Ratio] 43.56 kg/m2 Janay Edwards RN [facility]; [facility] Work Phone: 04-25-2010 10:02-0400 Body surface area Derived from formula 2.33 m2 Janay Edwards RN [facility]; [facility] Work Phone: 04-25-2010 10:02-0400 Body weight 126.16 kg Janay Edwards RN [facility]; [facility] Work Phone: 04-25-2010 10:02-0400 Diastolic blood pressure 78 mm[Hg] Janay Edwards RN [facility]; [facility] Work Phone: Comment on above: Patient Position: Sitting; Cuff Location : Left Arm; Cuff Size: Large 04-25-2010 10:02-0400 Heart rate 72 /min Janay Edwards RN [facility]; [facility] Work Phone: Comment on above: Pattern: Regular 04-25-2010 10:02-0400 Respiratory rate 20 /min Janay Edwards RN [facility]; [facility] Work Phone: Comment on above: Pattern: Unlabored 04-25-2010 10:02-0400 Systolic blood pressure 122 mm[Hg] Janay Edwards RN [facility]; [facility] Work Phone: Comment on above: Patient Position: Sitting; Cuff Location : Left Arm; Cuff Size: Large 04-15-2010 11:43-0400 Body height 170.18 cm Janay Edwards RN [facility]; [facility] Work Phone: 04-15-2010 11:43-0400 Body mass index (BMI) [Ratio] 43.23 kg/m2 Janay Edwards RN [facility]; [facility] Work Phone: 04-15-2010 11:43-0400 Body surface area Derived from formula 2.32 m2 Janay Edwards RN [facility]; [facility] Work Phone: 04-15-2010 11:43-0400 Body weight 125.19 kg Janay Edwards RN [facility]; [facility] Work Phone: 04-15-2010 11:43-0400 Diastolic blood pressure 80 mm[Hg] Janay Edwards RN [facility]; [facility] Work Phone: Comment on above: Patient Position: Sitting; Cuff Location : Left Arm; Cuff Size: Large 04-15-2010 11:43-0400 Heart rate 80 /min Janay Edwards RN [facility]; [facility] Work Phone: Comment on above: Pattern: Regular 04-15-2010 11:43-0400 Respiratory rate 20 /min Janay Edwards RN [facility]; [facility] Work Phone: Comment on above: Pattern: Unlabored 04-15-2010 11:43-0400 Systolic blood pressure 142 mm[Hg] Janay Edwards RN [facility]; [facility] Work Phone: Comment on above: Patient Position: Sitting; Cuff Location : Left Arm; Cuff Size: Large 04-10-2010 08:46-0400 Body height 170.18 cm Janay Edwards RN [facility]; [facility] Work Phone: 04-10-2010 08:46-0400 Body mass index (BMI) [Ratio] 43.1 kg/m2 Janay Edwards RN [facility]; [facility] Work Phone: 04-10-2010 08:46-0400 Body surface area Derived from formula 2.32 m2 Janay Edwards RN [facility]; [facility] Work Phone: 04-10-2010 08:46-0400 Body temperature 98.7 [degF] Janay Edwards RN [facility]; [facility] Work Phone: Comment on above: Method: Oral 04-10-2010 08:46-0400 Body weight 124.83 kg Janay Edwards RN [facility]; [facility] Work Phone: 04-10-2010 08:46-0400 Diastolic blood pressure 84 mm[Hg] Janay Edwards RN [facility]; [facility] Work Phone: Comment on above: Patient Position: Sitting; Cuff Location : Left Arm; Cuff Size: Large 04-10-2010 08:46-0400 Heart rate 64 /min Janay Edwards RN [facility]; [facility] Work Phone: Comment on above: Pattern: Regular 04-10-2010 08:46-0400 Respiratory rate 20 /min Janay Edwards RN [facility]; [facility] Work Phone: Comment on above: Pattern: Unlabored 04-10-2010 08:46-0400 Systolic blood pressure 152 mm[Hg] Janay Edwards RN [facility]; [facility] Work Phone: Comment on above: Patient Position: Sitting; Cuff Location : Left Arm; Cuff Size: Large 04-09-2010 11:16-0400 Body temperature 97.7 [degF] Nerissa Rodriguez DO Work Phone: [facility]; [facility] Work Phone: Comment on above: Method: Oral 04-09-2010 11:16-0400 Body weight 123.95 kg Nerissa Rodriguez DO Work Phone: [facility]; [facility] Work Phone: 04-09-2010 11:16-0400 Diastolic blood pressure 74 mm[Hg] Nerissa Rodriguez DO Work Phone: [facility]; [facility] Work Phone: Comment on above: Patient Position: Sitting; Cuff Location : Right Arm; Cuff Size: Large 04-09-2010 11:16-0400 Heart rate 72 /min Nerissa Rodriguez DO Work Phone: [facility]; [facility] Work Phone: Comment on above: Pattern: Regular 04-09-2010 11:16-0400 Respiratory rate 18 /min Nerissa Rodriguez DO Work Phone: [facility]; [facility] Work Phone: Comment on above: Pattern: Unlabored 04-09-2010 11:16-0400 Systolic blood pressure 130 mm[Hg] Nerissa Rodriguez DO Work Phone: [facility]; [facility] Work Phone: Comment on above: Patient Position: Sitting; Cuff Location : Right Arm; Cuff Size: Large 04-08-2010 11:27-0400 Body height 170.18 cm Janay Edwards RN [facility]; [facility] Work Phone: 04-08-2010 11:27-0400 Body mass index (BMI) [Ratio] 42.68 kg/m2 [facility]; [facility] Work Phone: 04-08-2010 11:27-0400 Body surface area Derived from formula 2.31 m2 Janay Edwards RN [facility]; [facility] Work Phone: 04-08-2010 11:27-0400 Body temperature 97.4 [degF] Janay Edwards RN [facility]; [facility] Work Phone: Comment on above: Method: Oral 04-08-2010 11:27-0400 Body weight 123.61 kg Janay Edwards RN [facility]; [facility] Work Phone: 04-08-2010 11:27-0400 Diastolic blood pressure 78 mm[Hg] Janay Edwards RN [facility]; [facility] Work Phone: Comment on above: Patient Position: Sitting; Cuff Location : Left Arm; Cuff Size: Large 04-08-2010 11:27-0400 Heart rate 64 /min Janay Edwards RN [facility]; [facility] Work Phone: Comment on above: Pattern: Regular 04-08-2010 11:27-0400 Respiratory rate 20 /min Janay Edwards RN [facility]; [facility] Work Phone: Comment on above: Pattern: Unlabored 04-08-2010 11:27-0400 Systolic blood pressure 148 mm[Hg] Janay Edwards RN [facility]; [facility] Work Phone: Comment on above: Patient Position: Sitting; Cuff Location : Left Arm; Cuff Size: Large 03-29-2010 11:47-0400 Body height 170.18 cm Janay Edwards RN [facility]; [facility] Work Phone: 03-29-2010 11:47-0400 Body mass index (BMI) [Ratio] 42.69 kg/m2 Janay Edwards RN [facility]; [facility] Work Phone: 03-29-2010 11:47-0400 Body surface area Derived from formula 2.31 m2 Janay Edwards RN [facility]; [facility] Work Phone: 03-29-2010 11:47-0400 Body weight 123.63 kg Janay Edwards RN [facility]; [facility] Work Phone: 03-29-2010 11:47-0400 Diastolic blood pressure 86 mm[Hg] Janay Edwards RN [facility]; [facility] Work Phone: Comment on above: Patient Position: Sitting; Cuff Location : Left Arm; Cuff Size: Large 03-29-2010 11:47-0400 Heart rate 60 /min Janay Edwards RN [facility]; [facility] Work Phone: Comment on above: Pattern: Regular 03-29-2010 11:47-0400 Respiratory rate 20 /min Janay Edwards RN [facility]; [facility] Work Phone: Comment on above: Pattern: Unlabored 03-29-2010 11:47-0400 Systolic blood pressure 142 mm[Hg] Janay Edwards RN [facility]; [facility] Work Phone: Comment on above: Patient Position: Sitting; Cuff Location : Left Arm; Cuff Size: Large 03-18-2010 14:27-0400 Body height 170.18 cm Janay Edwards RN [facility]; [facility] Work Phone: 03-18-2010 14:27-0400 Body mass index (BMI) [Ratio] 42.69 kg/m2 Janay Edwards RN [facility]; [facility] Work Phone: 03-18-2010 14:27-0400 Body surface area Derived from formula 2.31 m2 Janay Edwards RN [facility]; [facility] Work Phone: 03-18-2010 14:27-0400 Body weight 123.63 kg Janay Edwards RN [facility]; [facility] Work Phone: 03-18-2010 14:27-0400 Diastolic blood pressure 68 mm[Hg] Janay Edwards RN [facility]; [facility] Work Phone: Comment on above: Patient Position: Sitting; Cuff Location : Left Arm; Cuff Size: Large 03-18-2010 14:27-0400 Heart rate 68 /min Janay Edwards RN [facility]; [facility] Work Phone: Comment on above: Pattern: Regular 03-18-2010 14:27-0400 Respiratory rate 20 /min Janay Edwards RN [facility]; [facility] Work Phone: Comment on above: Pattern: Unlabored 03-18-2010 14:27-0400 Systolic blood pressure 122 mm[Hg] Janay Edwards RN [facility]; [facility] Work Phone: Comment on above: Patient Position: Sitting; Cuff Location : Left Arm; Cuff Size: Large 04-26-2009 08:53-0400 Body height 170.18 cm Nerissa Rodriguez DO Work Phone: [facility]; [facility] Work Phone: 04-26-2009 08:53-0400 Body mass index (BMI) [Ratio] 44.98 kg/m2 Nerissa Ismael DO Work Phone: [facility]; [facility] Work Phone: 04-26-2009 08:53-0400 Body surface area Derived from formula 2.36 m2 Nerissa Beckhamon DO Work Phone: [facility]; [facility] Work Phone: 04-26-2009 08:53-0400 Body temperature 95.9 [degF] Nerissa Rodriguez DO Work Phone: [facility]; [facility] Work Phone: Comment on above: Method: Oral 04-26-2009 08:53-0400 Body weight 130.27 kg Nerissa Rodriguez DO Work Phone: [facility]; [facility] Work Phone: 04-26-2009 08:53-0400 Diastolic blood pressure 80 mm[Hg] Nerissa Beckhamon DO Work Phone: [facility]; [facility] Work Phone: Comment on above: Patient Position: Sitting; Cuff Location : Left Arm; Cuff Size: Standard 04-26-2009 08:53-0400 Head Occipital-frontal circumference 0 cm Nerissa Beckhamon DO Work Phone: [facility]; [facility] Work Phone: 04-26-2009 08:53-0400 Heart rate 62 /min Nerissa Ismael DO Work Phone: [facility]; [facility] Work Phone: Comment on above: Pattern: Regular 04-26-2009 08:53-0400 Respiratory rate 18 /min Nerissa Rodriguez DO Work Phone: [facility]; [facility] Work Phone: Comment on above: Pattern: Unlabored 04-26-2009 08:53-0400 Systolic blood pressure 134 mm[Hg] Nerissa Rodriguez DO Work Phone: [facility]; [facility] Work Phone: Comment on above: Patient Position: Sitting; Cuff Location : Left Arm; Cuff Size: Standard 2009 13:55-0400 Body height 0 cm Janay Edwards RN [facility]; [facility] Work Phone: 2009 13:55-0400 Body temperature 98 [degF] Janay Edwards RN [facility]; [facility] Work Phone: Comment on above: Method: Oral 2009 13:55-0400 Body weight 128.62 kg Janay Edwards RN [facility]; [facility] Work Phone: 2009 13:55-0400 Diastolic blood pressure 60 mm[Hg] Janay Edwards RN [facility]; [facility] Work Phone: Comment on above: Patient Position: Sitting; Cuff Location : Left Arm; Cuff Size: Large 2009 13:55-0400 Head Occipital-frontal circumference 0 cm Janay Edwards RN [facility]; [facility] Work Phone: 2009 13:55-0400 Heart rate 64 /min Janay Edwards RN [facility]; [facility] Work Phone: Comment on above: Pattern: Regular 2009 13:55-0400 Respiratory rate 20 /min Janay Edwards RN [facility]; [facility] Work Phone: Comment on above: Pattern: Unlabored 2009 13:55-0400 Systolic blood pressure 110 mm[Hg] Janay Edwards RN [facility]; [facility] Work Phone: Comment on above: Patient Position: Sitting; Cuff Location : Left Arm; Cuff Size: Large 03-26-2009 11:08-0400 Body height 0 cm Janay Edwards RN [facility]; [facility] Work Phone: 03-26-2009 11:08-0400 Body weight 128.62 kg Janay Edwards RN [facility]; [facility] Work Phone: 03-26-2009 11:08-0400 Diastolic blood pressure 66 mm[Hg] Janay Edwards RN [facility]; [facility] Work Phone: Comment on above: Patient Position: Sitting; Cuff Location : Left Arm; Cuff Size: Large 03-26-2009 11:08-0400 Head Occipital-frontal circumference 0 cm Janay Edwards RN [facility]; [facility] Work Phone: 03-26-2009 11:08-0400 Heart rate 64 /min Janay Edwards RN [facility]; [facility] Work Phone: Comment on above: Pattern: Regular 03-26-2009 11:08-0400 Respiratory rate 16 /min Janay Edwards RN [facility]; [facility] Work Phone: Comment on above: Pattern: Unlabored 03-26-2009 11:08-0400 Systolic blood pressure 120 mm[Hg] Janay Edwarsd RN [facility]; [facility] Work Phone: Comment on above: Patient Position: Sitting; Cuff Location : Left Arm; Cuff Size: Large 12-12-2008 09:28-0400 Body height 0 cm Nerissa Bechkamon DO Work Phone: [facility]; [facility] Work Phone: 12-12-2008 09:28-0400 Body temperature 98.4 [degF] Nerissa Beckhamon DO Work Phone: [facility]; [facility] Work Phone: Comment on above: Method: Oral 12-12-2008 09:28-0400 Body weight 127.06 kg Nerissa Beckhamon DO Work Phone: [facility]; [facility] Work Phone: 12-12-2008 09:28-0400 Diastolic blood pressure 78 mm[Hg] Nerissa Ismael DO Work Phone: [facility]; [facility] Work Phone: Comment on above: Patient Position: Sitting; Cuff Location : Left Arm; Cuff Size: Large 12-12-2008 09:28-0400 Head Occipital-frontal circumference 0 cm Nerissa Ismael DO Work Phone: [facility]; [facility] Work Phone: 12-12-2008 09:28-0400 Heart rate 70 /min Nerissa Ismael DO Work Phone: [facility]; [facility] Work Phone: Comment on above: Pattern: Regular 12-12-2008 09:28-0400 Respiratory rate 18 /min Nerissa Ismael DO Work Phone: [facility]; [facility] Work Phone: Comment on above: Pattern: Unlabored 12-12-2008 09:28-0400 Systolic blood pressure 128 mm[Hg] Nerissa Ismael DO Work Phone: [facility]; [facility] Work Phone: Comment on above: Patient Position: Sitting; Cuff Location : Left Arm; Cuff Size: Large 11-22-2008 14:02-0400 Body height 0 cm Janay Edwards RN [facility]; [facility] Work Phone: 11-22-2008 14:02-0400 Body weight 128.03 kg Janay Edwards RN [facility]; [facility] Work Phone: 11-22-2008 14:02-0400 Diastolic blood pressure 68 mm[Hg] Janay Edwards RN [facility]; [facility] Work Phone: Comment on above: Patient Position: Sitting; Cuff Location : Left Arm; Cuff Size: Large 11-22-2008 14:02-0400 Head Occipital-frontal circumference 0 cm Janay Edwards RN [facility]; [facility] Work Phone: 11-22-2008 14:02-0400 Heart rate 72 /min Janay Edwards RN [facility]; [facility] Work Phone: Comment on above: Pattern: Regular 11-22-2008 14:02-0400 Respiratory rate 20 /min Janay Edwards RN [facility]; [facility] Work Phone: Comment on above: Pattern: Unlabored 11-22-2008 14:02-0400 Systolic blood pressure 144 mm[Hg] Janay Edwards RN [facility]; [facility] Work Phone: Comment on above: Patient Position: Sitting; Cuff Location : Left Arm; Cuff Size: Large 09-27-2008 10:36-0500 Body height 0 cm Janay Edwards RN [facility]; [facility] Work Phone: 09-27-2008 10:36-0500 Body weight 130.32 kg Janay Edwards RN [facility]; [facility] Work Phone: 09-27-2008 10:36-0500 Diastolic blood pressure 78 mm[Hg] Janay Edwards RN [facility]; [facility] Work Phone: Comment on above: Patient Position: Sitting; Cuff Location : Right Arm; Cuff Size: Large 09-27-2008 10:36-0500 Head Occipital-frontal circumference 0 cm Janay Edwards RN [facility]; [facility] Work Phone: 09-27-2008 10:36-0500 Heart rate 72 /min Janay Edwards RN [facility]; [facility] Work Phone: Comment on above: Pattern: Regular 09-27-2008 10:36-0500 Respiratory rate 20 /min Janay Edwards RN [facility]; [facility] Work Phone: Comment on above: Pattern: Unlabored 09-27-2008 10:36-0500 Systolic blood pressure 138 mm[Hg] Janay Edwards RN [facility]; [facility] Work Phone: Comment on above: Patient Position: Sitting; Cuff Location : Right Arm; Cuff Size: Large 09-04-2008 09:48-0500 Body height 0 cm Janay Edwards RN [facility]; [facility] Work Phone: 09-04-2008 09:48-0500 Body weight 130.32 kg Janay Edwards RN [facility]; [facility] Work Phone: 09-04-2008 09:48-0500 Diastolic blood pressure 88 mm[Hg] Janay Edwards RN [facility]; [facility] Work Phone: Comment on above: Patient Position: Sitting; Cuff Location : Left Arm; Cuff Size: Large 09-04-2008 09:48-0500 Head Occipital-frontal circumference 0 cm Janay Edwards RN [facility]; [facility] Work Phone: 09-04-2008 09:48-0500 Heart rate 88 /min Janay Edwards RN [facility]; [facility] Work Phone: Comment on above: Pattern: Regular 09-04-2008 09:48-0500 Respiratory rate 20 /min Janay Edwards RN [facility]; [facility] Work Phone: Comment on above: Pattern: Unlabored 09-04-2008 09:48-0500 Systolic blood pressure 152 mm[Hg] Janay Edwards RN [facility]; [facility] Work Phone: Comment on above: Patient Position: Sitting; Cuff Location : Left Arm; Cuff Size: Large 06-09-2008 13:25-0400 Body height 0 cm Janay Edwards RN [facility]; [facility] Work Phone: 06-09-2008 13:25-0400 Body temperature 97.6 [degF] Janay Edwards RN [facility]; [facility] Work Phone: Comment on above: Method: Oral 06-09-2008 13:25-0400 Body weight 0 kg Janay Edwards RN [facility]; [facility] Work Phone: 06-09-2008 13:25-0400 Diastolic blood pressure 82 mm[Hg] Janay Edwards RN [facility]; [facility] Work Phone: Comment on above: Patient Position: Sitting; Cuff Location : Right Arm; Cuff Size: Large 06-09-2008 13:25-0400 Head Occipital-frontal circumference 0 cm Janay Edwards RN [facility]; [facility] Work Phone: 06-09-2008 13:25-0400 Heart rate 80 /min Janay Edwards RN [facility]; [facility] Work Phone: Comment on above: Pattern: Regular 06-09-2008 13:25-0400 Respiratory rate 20 /min Janay Edwards RN [facility]; [facility] Work Phone: Comment on above: Pattern: Unlabored 06-09-2008 13:25-0400 Systolic blood pressure 148 mm[Hg] Janay Edwards RN [facility]; [facility] Work Phone: Comment on above: Patient Position: Sitting; Cuff Location : Right Arm; Cuff Size: Large 11-05-2007 10:48-0400 Body height 0 cm ANTHONY Mckenna LPN [facility]; [facility] Work Phone: 11-05-2007 10:48-0400 Body temperature 98.3 [degF] ANTHONY Mckenna LPN [facility]; [facility] Work Phone: Comment on above: Method: Oral 11-05-2007 10:48-0400 Body weight 0 kg ANTHONY Mckenna LPN [facility]; [facility] Work Phone: 11-05-2007 10:48-0400 Diastolic blood pressure 80 mm[Hg] ANTHONY Mckenna LPN [facility]; [facility] Work Phone: Comment on above: Patient Position: Sitting; Cuff Location : Left Arm; Cuff Size: Large 11-05-2007 10:48-0400 Head Occipital-frontal circumference 0 cm ANTHONY Mckenna LPN [facility]; [facility] Work Phone: 11-05-2007 10:48-0400 Heart rate 86 /min ANTHONY Mckenna LPN [facility]; [facility] Work Phone: Comment on above: Pattern: Regular 11-05-2007 10:48-0400 Respiratory rate 24 /min ANTHONY Mckenna LPN [facility]; [facility] Work Phone: Comment on above: Pattern: Labored 11-05-2007 10:48-0400 SaO2% (BldA) [Mass fraction] 94 % ANTHONY Bala SHIP RIGGER APPRENTICE [facility]; [facility] Work Phone: Comment on above: Room air 11-05-2007 10:48-0400 Systolic blood pressure 124 mm[Hg] ANTHONY Mckenna [facility] Work Phone: Comment on above: Patient Position: Sitting; Cuff Location : Left Arm; Cuff Size: Large 12-14-2006 17:45-0400 Body height 0 cm Nerissa Ismael DO Work Phone: [facility]; [facility] Work Phone: 12-14-2006 17:45-0400 Body temperature 98 [degF] Nerissa Ismael DO Work Phone: [facility]; [facility] Work Phone: Comment on above: Method: Oral 12-14-2006 17:45-0400 Body weight 0 kg Nerissa Ismael DO Work Phone: [facility]; [facility] Work Phone: 12-14-2006 17:45-0400 Head Occipital-frontal circumference 0 cm Nerissa Ismael DO Work Phone: [facility]; [facility] Work Phone: 12-14-2006 17:25-0400 Body height 0 cm Nerissa Ismael DO Work Phone: [facility]; [facility] Work Phone: 12-14-2006 17:25-0400 Body weight 0 kg Nerissa Ismael DO Work Phone: [facility]; [facility] Work Phone: 12-14-2006 17:25-0400 Diastolic blood pressure 76 mm[Hg] Nerissa Ismael DO Work Phone: [facility]; [facility] Work Phone: Comment on above: Patient Position: Sitting; Cuff Location : Left Arm; Cuff Size: Large 12-14-2006 17:25-0400 Head Occipital-frontal circumference 0 cm Nerissa Ismael DO Work Phone: [facility]; [facility] Work Phone: 12-14-2006 17:25-0400 Heart rate 77 /min Nerissa Ismael DO Work Phone: [facility]; [facility] Work Phone: Comment on above: Pattern: Regular 12-14-2006 17:25-0400 Respiratory rate 17 /min Nerissa Ismael DO Work Phone: [facility]; [facility] Work Phone: Comment on above: Pattern: Unlabored 12-14-2006 17:25-0400 Systolic blood pressure 128 mm[Hg] Nerissa Ismael DO Work Phone: [facility]; [facility] Work Phone: Comment on above: Patient Position: Sitting; Cuff Location : Left Arm; Cuff Size: Large Encounters Encounter Date Encounter Type Care Provider Facility Start: 05-05-2025 ambulatory [facility] Facility:[facility] Start: 05-01-[address] Priya Ulloa MD -[facility] Start: 05-01-2025 End: 05-01-[address] Simon Ulloa MD -[facility] Work Phone: Start: 05-01-2025 End: 05-01-[address] Martin Gutierrez MD Work Phone: -[facility] Start: 01-03-2025 ambulatory [facility] Facility:[facility] Start: 12-22-2024 End: 12-22-[address] Martin Gutierrez MD -Laboratory Work Phone: Start: 12-22-2024 End: 12-22-2024 ambulatory [facility] Facility:[facility] Start: 11-14-2024 End: 11-14-[address] Armando Ga MD -Physical Therapy Work Phone: Start: 11-14-2024 End: 11-14-[address] Martin Gutierrez MD Work Phone: [facility] Work Phone: Start: 10-05-2024 End: 10-05-[address] Martin Gutierrez MD -Laboratory Work Phone: Start: 10-04-[address] Priya Ulloa MD -[facility] Start: 10-04-2024 End: 10-04-[address] Simon Ulloa MD -[facility] Work Phone: Start: 10-04-2024 End: 10-05-2024 ambulatory Martin Chi Matt Facility:[facility] Start: 09-28-2024 Non-patient / Non-visit Dr. Scott Mcneal MD -[facility] Work Phone: Start: 09-27-2024 Non-patient / Non-visit Dr. Scott Mcneal MD -[facility] Work Phone: Start: 09-26-2024 ambulatory Esperanza Myers Facility :[facility] Start: 09-26-2024 End: 09-28-2024 Evaluation and management of inpatient Dr. Scott Mcneal MD -[facility] 3 Work Phone: Start: 07-26-2024 End: 07-26-2024 ambulatory Martin Chi Matt Facility:[facility] Start: 07-26-2024 End: 07-26-2024 ambulatory Margi Christian AUTOMOTIVE MECHANICAL ENGINEER Facility:[facility] Start: 06-15-2024 End: 06-15-2024 ambulatory Martin Chi Matt Facility:[facility] Start: 06-13-2024 End: 06-13-2024 ambulatory Martin Chi Matt Facility:[facility] Start: 05-23-2024 End: 05-23-2024 ambulatory Martin Chi Matt Facility:[facility] Start: 05-20-2024 ambulatory Martin Chi Matt Facility:[facility] Start: 05-17-2024 ambulatory Martin Chi Matt Facility:[facility] Start: 05-11-2024 End: 05-11-2024 ambulatory Martin Chi Matt Facility:[facility] Start: 12-18-2023 End: 12-18-[address] Martin Gutierrez Work Phone: [facility] Work Phone: Start: 12-18-2023 End: 12-18-[address] [facility] Start: 09-30-[address] Martin alex Work Phone: [facility] Start: 09-30-2023 End: 09-30-[address] Martin Gutierrez Work Phone: [facility] Work Phone: Start: 08-26-2023 End: 08-26-2023 ambulatory [facility] Work Phone: Start: 08-26-2023 End: 08-26-2023 Patient encounter procedure [facility] 3rd Flr Start: 06-09-2023 End: 06-09-[address] Martin Gutierrez Work Phone: [facility] Work Phone: Start: 06-09-2023 End: 06-09-[address] Martin Gutierrez Work Phone: [facility] 3rd Flr Start: 05-14-2023 End: 05-14-[address] Martin Gutierrez Work Phone: [facility] Work Phone: Start: 05-14-2023 End: 05-14-[address] Martin Gutierrez Work Phone: [facility]-Pulmonary Services/Neurology Work Phone: Start: 05-05-2023 End: 05-05-[address] Martin Gutierrez Work Phone: [facility] Work Phone: Start: 05-05-2023 End: 05-05-[address] Martin Gutierrez Work Phone: [facility]-Outpatient Breast Imaging Work Phone: Start: 04-15-[address] Martin alex Work Phone: [facility] Start: 04-15-2023 End: 04-15-[address] Martin Gutierrez Work Phone: [facility] Work Phone: Start: 12-11-2022 End: 12-11-[address] Martin Gutierrez Work Phone: [facility] Work Phone: Start: 12-11-2022 End: 12-11-[address] Martin Gutierrez Work Phone: [facility]-Laboratory Start: 11-27-2022 End: 11-27-[address] [facility]rez [facility] Start: 10-20-2022 End: 10-20-[address] Martin Gutierrez [facility] Start: 09-02-[address] Martin alex Work Phone: [facility] Start: 09-02-2022 End: 09-02-[address] Martin Gutierrez Work Phone: [facility] Start: 06-11-2022 End: 06-11-[address] Martin Gutierrez Work Phone: [facility] Work Phone: Start: 06-11-2022 End: 06-11-[address] Martin Gutierrez Work Phone: [facility]-Laboratory, Phy Office 3rd Flr Start: 06-02-2022 End: 06-02-[address] Martin Gutierrez [facility] Start: 04-23-2022 End: 04-23-[address] Martin Gutierrez Work Phone: [facility] Work Phone: Start: 04-23-2022 End: 04-23-[address] Martin Gutierrez [facility] Start: 04-15-2022 End: 04-15-[address] Martin Gutierrez Work Phone: [facility] Work Phone: Start: 04-15-2022 End: 04-15-[address] Martin Gutierrez Work Phone: [facility]-Outpatient Breast Imaging Start: 02-19-2022 End: 02-19-[address] Martin Gutierrez Work Phone: [facility] Start: 02-19-[address] Martin alex Work Phone: [facility] Start: 12-17-2021 End: 12-17-[address] [facility]rez [facility] Start: 12-02-2021 End: 12-02-[address] Martin Gutierrez [facility] Start: 11-06-[address] Martin alex Work Phone: [facility] Start: 11-06-2021 End: 11-06-[address] Martin Gutierrez Work Phone: [facility] Start: 09-17-2021 End: 09-17-[address] Martin Gutierrez Work Phone: [facility] Start: 08-20-2021 Non-patient / Non-visit Dr. Martin Gutierrez Work Phone: [facility] Start: 08-20-[address] Martin Gutierrez Work Phone: [facility]-Cardiovascular Services Start: 08-13-2017 End: 08-13-2017 Ambulatory BRANDO GUTIERREZ Facility:[facility] Start: 07-14-2017 End: 07-14-2017 Ambulatory NELY CALZADA Facility:[facility] Start: 06-25-2017 End: 06-25-2017 Patient encounter procedure UNKNOWN PROVIDER [facility] Start: 06-25-2017 End: 06-28-2017 Evaluation and management of inpatient CELINE CORREA Facility:[facility] Start: 08-30-2015 End: 08-30-2015 Office outpatient visit 40 minutes Nerissa Ismael DO Work Phone: [facility] Start: 07-26-2015 End: 07-26-2015 Office outpatient visit 25 minutes Nerissa Ismael DO Work Phone: [facility] Start: 01-31-2015 End: 01-31-2015 Phone Encounter Nerissa Ismael DO Work Phone: [facility] Start: 01-29-2015 End: 01-29-2015 Office outpatient visit 25 minutes Nerissa Ismael DO Work Phone: [facility] Start: 10-11-2014 End: 10-11-2014 Office outpatient visit 15 minutes Nerissa Ismael DO Work Phone: [facility] Start: 10-02-2014 End: 10-02-2014 Office outpatient visit 15 minutes Nerissa Ismael DO Work Phone: [facility] Start: 08-30-2014 End: 08-30-2014 Office outpatient visit 15 minutes Nerissa Ismael DO Work Phone: [facility] Start: 10-28-2013 End: 10-28-2013 Office outpatient visit 25 minutes Nerissa Ismael DO Work Phone: [facility] Start: 09-01-2013 End: 09-01-2013 Phone Encounter Nerissa Ismael DO Work Phone: [facility] Start: 07-28-2012 End: 07-28-2012 Patient encounter procedure Nerissa Ismael DO Work Phone: [facility] Start: 07-01-2012 End: 07-01-2012 Patient encounter procedure Nerissa Ismael DO Work Phone: [facility] Start: 03-25-2012 End: 03-25-2012 Patient encounter procedure Nerissa Ismael DO Work Phone: [facility] Start: 11-21-2011 End: 11-21-2011 Phone Encounter Nerissa Ismael DO Work Phone: [facility] Start: 11-21-2011 End: 11-21-2011 Office outpatient visit 15 minutes Nerissa Ismael DO Work Phone: [facility] Start: 11-19-2011 End: 11-19-2011 Phone Encounter Nerissa Ismael DO Work Phone: [facility] Start: 11-19-2011 End: 11-19-2011 Patient encounter procedure Nerissa Ismael DO Work Phone: [facility] Start: 11-07-2011 End: 11-07-2011 Patient encounter procedure Nerissa Ismael DO Work Phone: [facility] Start: 10-06-2011 End: 10-06-2011 Office outpatient visit 25 minutes Nerissa Ismael DO Work Phone: [facility] Start: 01-13-2011 End: 01-13-2011 Phone Encounter Nerissa Ismael DO Work Phone: [facility] Start: 01-13-2011 End: 01-13-2011 Patient encounter procedure Nerissa Ismael DO Work Phone: [facility] Start: 09-16-2010 End: 09-16-2010 Patient encounter procedure Nerissa Ismael DO Work Phone: [facility] Start: 09-09-2010 End: 09-09-2010 Office outpatient visit 25 minutes Nerissa Ismael DO Work Phone: [facility] Start: 05-20-2010 End: 05-20-2010 Office outpatient visit 25 minutes Nerissa Ismael DO Work Phone: [facility] Start: 04-25-2010 End: 04-25-2010 Patient encounter procedure Nerissa Ismael DO Work Phone: [facility] Start: 04-15-2010 End: 04-15-2010 Patient encounter procedure Nerissa Ismael DO Work Phone: [facility] Start: 2010 End: 2010 Patient encounter procedure Nerissa Ismael DO Work Phone: [facility] Start: 04-10-2010 End: 04-10-2010 Patient encounter procedure Nerissa Ismael DO Work Phone: [facility] Start: 04-09-2010 End: 04-09-2010 Office outpatient visit 15 minutes Nerissa Ismael DO Work Phone: [facility] Start: 04-08-2010 End: 04-08-2010 Patient encounter procedure Nerissa Ismael DO Work Phone: [facility] Start: 03-29-2010 End: 03-29-2010 Patient encounter procedure Nerissa Ismael DO Work Phone: [facility] Start: 03-18-2010 End: 03-18-2010 Patient encounter procedure Nerissa Ismael DO Work Phone: [facility] Start: 04-26-2009 End: 04-26-2009 Patient encounter procedure Nerissa Ismael DO Work Phone: [facility] Start: 2009 End: 2009 Patient encounter procedure Nerissa Ismael DO Work Phone: [facility] Start: 03-26-2009 End: 03-26-2009 Patient encounter procedure Nerissa Ismael DO Work Phone: [facility] Start: 01-23-2009 End: 01-23-2009 Phone Encounter Nerissa Ismael DO Work Phone: [facility] Start: 12-12-2008 End: 12-12-2008 Office outpatient visit 25 minutes Nerissa Ismael DO Work Phone: [facility] Start: 11-22-2008 End: 11-22-2008 Patient encounter procedure Nerissa Ismael DO Work Phone: [facility] Start: 09-27-2008 End: 09-27-2008 Office outpatient visit 10 minutes Nerissa Ismael DO Work Phone: [facility] Start: 09-04-2008 End: 09-04-2008 Patient encounter procedure Nerissa Ismael DO Work Phone: [facility] Start: 08-23-2008 End: 08-23-2008 Historical Summary Nerissa Ismael DO Work Phone: [facility] Start: 06-09-2008 End: 06-09-2008 Patient encounter procedure Nerissa Ismael DO Work Phone: [facility] Start: 11-05-2007 End: 11-05-2007 Patient encounter procedure Nerissa Ismael DO Work Phone: [facility] Start: 12-14-2006 End: 12-14-2006 Office outpatient visit 25 minutes Nerissa Ismael DO Work Phone: [facility] Patient encounter procedure Janay Edwards RN [facility]; [facility] Work Phone: Patient encounter status Nerissa Ismael DO Work Phone: [facility]; [facility] Work Phone: Procedures Date Procedure Procedure Detail Performing Clinician Start: 05-01-[address] e fraction Dr. Martin Gutierrez MD Work Phone: Start: 05-01-2025 Total iron binding capacity measurement Dr. Martin Gutierrez MD Work Phone: Start: 12-22-2024 Total iron binding capacity measurement Dr. Martin Gutierrez MD Work Phone: Start: 12-22-2024 Vitamin D, 25-hydrox y measurement Dr. Martin Gutierrez MD Work Phone: Comment on above: Vitamin D StatusDefi ciency: <20 ng/mL (50nmol/L)Insufficiency: 20-30 ng/mL (50-75 nmol/L)Sufficiency: 30-100 ng/mL (75-250 nmol/L)Toxicity: >100 ng/mL (>250 nmol/L) Start: 10-05-2024 Measurement of renal function Dr. Martin Gutierrez MD Work Phone: Comment on above: GFR Calc Start: 10-04-[address] fraction Dr. Martin Gutierrez MD Work Phone: Start: 10-04-2024 Total iron binding capacity measurement Dr. Martin Gutierrez MD Work Phone: Start: 09-28-2024 Assay of phosphorus inorganic Dr. Martin Gutierrez MD Work Phone: Start: 09-28-[address] Martin Gutierrez MD Work Phone: Start: 09-28-2024 Measurement of renal function Dr. Martin Gutierrez MD Work Phone: Comment on above: GFR Calc Start: 09-27-2024 Legionella pneumophi la antigen assay Dr. Martin Gutierrez MD Work Phone: Start: 09-27-[address] Martin Gutierrez MD Work Phone: Start: 09-27-2024 End: 09-27-2024 Streptococcus pneumoniae antigen assay Dr. Martin Gutierrez MD Work Phone: Start: 09-26-2024 X-ray of chest, PA a nd lateral views Dr. Martin Gutierrez MD Work Phone: Start: 09-26-[address] Martin alex MD Work Phone: Start: 09-26-2024 Gram stain microscopy Allen Gutierrez MD Work Phone: Start: 09-26-2024 [address] micro[address] l culture Dr. Martin Gutierrez MD Work Phone: Start: 09-26-2024 SARS-CoV-2, Influenz a & RSV (PCR) Dr. Martin Gutierrez MD Work Phone: Start: 05-14-2023 Coronavirus COVID-[address] Martin Gutierrez Work Phone: Start: 05-14-2023 Influenza Types A,B Direct FA (MARQUEZ) Dr. Martin Gutierrez Work Phone: Start: 05-14-2023 Respiratory syncytia l virus antigen assay Dr. Martin Gutierrez Work Phone: Start: 05-05-2023 Screening mammography D r. Martin Gutierrez Work Phone: Start: 04-23-2022 Plain x-ray of hand Dr. Martin Gutierrez Work Phone: Start: 04-15-2022 Screening mammography D r. Martin Gutierrez Work Phone: Start: 12-17-2021 CT of soft tissues o f neck with contrast Dr. Martin Gutierrez Work Phone: Start: 07-10-2021 Allergen spec ige cr ude allergen extract each Dr. Martin Gutierrez MD Work Phone: Start: 05-24-2019 Bacteria identified in Urine by Culture Dr. Martin Gutierrez MD Work Phone: Start: 05-24-[address] Martin alex Work Phone: Start: 07-01-2017 End: 07-14-2017 Echocardiography Efrain Samuel MD Start: 01-15-2017 End: 01-26-2017 Carotid duplex Efrain Samuel MD Start: 01-15-2017 End: 07-01-2017 Follow Up Appt 6 months Tracy De La Cruz Start: 01-15-2017 End: 07-01-2017 MMM Efrain Samuel MD Start: 01-15-2017 End: 01-15-2017 Documentation of current medications Janene Vallecillo Work Phone: Start: 01-15-2017 End: 01-26-2017 Carotid duplex Efrain Samuel MD Start: 01-15-2017 End: 07-01-2017 Follow Up Appt 6 months Tracy De La Cruz Start: 01-15-2017 End: 07-01-2017 MMM Efrain Samuel MD Start: 12-30-2016 End: 12-30-2016 Dietary management education, guidance, and counseling Tali Ashleyfernando Work Phone: Start: 12-30-2016 End: 12-30-2016 Documentation of current medications Tali Ashleyfernando Work Phone: Start: 12-30-2016 End: 12-30-2016 Smoking cessation education Tali Ashleyfernando Work Phone: Start: 08-22-2016 End: 09-02-2016 *PTH (Parathyroid Hormone) Tali Ashleyfernando Work Phone: Start: 08-22-2016 End: 09-04-2016 1,25-Dihydroxyvitamin D [Mass/volume] in Serum or Plasma Tali Ashleyaleahosiel Work Phone: Start: 08-22-2016 End: 09-02-2016 Calcium [Mass/volume] in Serum or Plasma Tali Ashleyfernando Work Phone: Start: 08-22-2016 End: 09-02-2016 *PTH (Parathyroid Hormone) Tali Ashleyfernando Work Phone: Start: 08-22-2016 End: 09-04-2016 1,25-Dihydroxyvitamin D [Mass/volume] in Serum or Plasma Tali Ashleyfernando Work Phone: Start: 08-22-2016 End: 09-02-2016 Calcium [Mass/volume] in Serum or Plasma Judynicola Parikh Work Phone: Start: 07-15-2016 End: 07-15-2016 SOLAR PV INSTALLER Anaya Everett NP Work Phone: Start: 07-15-2016 End: 07-15-2016 Follow Up Appt 6 months Anaya Everett AUTOMOTIVE MECHANICAL ENGINEER Work Phone: Start: 07-15-2016 End: 07-23-2016 Nuclear stress test -Julio C Everett AUTOMOTIVE MECHANICAL ENGINEER Work Phone: Start: 07-15-2016 End: 07-15-2016 SOLAR PV INSTALLER Anaya Everett AUTOMOTIVE MECHANICAL ENGINEER Work Phone: Start: 07-15-2016 End: 07-15-2016 Follow Up Appt 6 months Anaya Everett AUTOMOTIVE MECHANICAL ENGINEER Work Phone: Start: 07-15-2016 End: 07-23-2016 Nuclear stress test -Julio C Everett AUTOMOTIVE MECHANICAL ENGINEER Work Phone: Start: 12-11-2015 End: 12-11-2015 Follow Up Appt 6 months Tracy De La Cruz Start: 12-11-2015 End: 12-11-2015 BECKI Samuel MD Start: 12-11-2015 End: 07-14-2017 Chest x-ray Efrain Samuel MD Start: 12-11-2015 End: 12-11-2015 Follow Up Appt 6 months Tracy De La Cruz Start: 12-11-2015 End: 12-11-2015 BECKI Samuel MD Start: 08-30-2015 End: 08-30-2015 Ecg routine ecg w/least 12 lds w/i&r [MEASUREMENTS ANALYSIS] Date of Test: 08/30/2015 12:51:52; Heart Rate: 58; AK Interval: 182; QRS: 104; QT Interval: 428; Corrected QT Interval (QTc): 425; P Wave [place]: 54; QRS Wave [place]: 48; T Wave [place]: 48; Blood Pressure: 162/80 [ECG DIAGNOSTIC STATEMENTS] Date of Test: 08/30/2015 12:51:52; Summary: Sinus Bradycardia WITHIN NORMAL LIMITS Nerissa Rodriguez DO Work Phone: Comment on above: sinus cristian - no acu te chg h/o cad on BB Start: 02-06-2015 End: 02-06-2015 [employer] Eliane Rodrigez PA-C Work Phone: Start: 02-06-2015 End: 02-07-2015 Documentation of current medications Eliane Rodrigez PA-C Work Phone: Start: 02-06-2015 End: 02-06-2015 Ecg routine ecg w/least 12 lds w/i&r Eliane Rodrigez PA-C Work Phone: Start: 02-06-2015 End: 02-06-2015 Follow Up Appt 6 months Eliane Rodrigez PA-C Work Phone: Start: 02-06-2015 End: 02-07-2015 Smoking cessation education Eliane Rodrigez PA-C Work Phone: Start: 02-06-2015 End: 02-06-2015 [employer] INST[employer] Eliane Rodrigez PA-C Work Phone: Start: 02-06-2015 End: 02-07-2015 Documentation of current medications Eliane Rodrigez PA-C Work Phone: Start: 02-06-2015 End: 02-06-2015 Ecg routine ecg w/least 12 lds w/i&r Eliane Rodrigez PA-C Work Phone: Start: 02-06-2015 End: 02-06-2015 Follow Up Appt 6 months Eliane Rodrigez PA-C Work Phone: Start: 02-06-2015 End: 07-14-2017 Hepatic function 2000 panel - Serum or Plasma Eliane Rodrigez PA-C Work Phone: Start: 02-06-2015 End: 07-14-2017 Lipid 1996 panel - Serum or Plasma Eliane Rodrigez PA-C Work Phone: Start: 02-06-2015 End: 02-07-2015 Smoking cessation education Eliane Rodrigez PA-C Work Phone: Start: 05-24-2014 End: 02-06-2015 *Hepatic Function Panel Tracy De La Cruz Start: 05-24-2014 End: 02-06-2015 Lipid 1996 panel - Serum or Plasma Efrain Samuel MD Start: 05-24-2014 End: 02-06-2015 Hepatic function 2000 panel - Serum or Plasma Efrain Samuel MD Start: 05-24-2014 End: 02-06-2015 Lipid 1996 panel - Serum or Plasma Efrain Samuel MD Start: 03-02-2014 End: 03-02-2014 *Hepatic Function Panel Tracy De La Cruz Start: 03-02-2014 End: 08-09-2014 Follow Up Appt 6 months Tracy De La Cruz Start: 03-02-2014 End: 03-02-2014 Lipid 1996 panel - Serum or Plasma Efrain Samuel MD Start: 03-02-2014 End: 08-09-2014 MMM Efrain Samuel MD Start: 03-02-2014 End: 08-09-2014 Follow Up Appt 6 months Tracy De La Cruz Start: 03-02-2014 End: 03-02-2014 Hepatic function 2000 panel - Serum or Plasma Efrain Samuel MD Start: 03-02-2014 End: 03-02-2014 Lipid 1996 panel - Serum or Plasma Efrain Samuel MD Start: 03-02-2014 End: 08-09-2014 MMM Efrain Samuel MD Start: 06-08-2013 End: 08-09-2014 *Hepatic Function Panel Eliane Rodrigez PA-C Work Phone: Start: 06-08-2013 End: 06-08-2013 [employer] INST[employer] Eliane Rodrigez PA-C Work Phone: Start: 06-08-2013 End: 06-08-2013 Follow Up Appt 6 months Eliane Rodrigez PA-C Work Phone: Start: 06-08-2013 End: 08-09-2014 Lipid 1996 panel - Serum or Plasma Eliane Rodrigez PA-C Work Phone: Start: 06-08-2013 End: 06-08-2013 [employer] INST[employer]ER Eliane Rodrigez PA-C Work Phone: Start: 06-08-2013 End: 06-08-2013 Follow Up Appt 6 months Eliane Rodrigez PA-C Work Phone: Start: 06-08-2013 End: 08-09-2014 Hepatic function 2000 panel - Serum or Plasma Eliane Rodrigez PA-C Work Phone: Start: 06-08-2013 End: 08-09-2014 Lipid 1996 panel - Serum or Plasma Eliane Rodrigez PA-C Work Phone: Start: 12-09-2012 End: 06-08-2013 *Hepatic Function Panel Tracy De La Cruz Start: 12-09-2012 End: 12-09-2012 Follow Up Appt 6 months Tracy De La Cruz Start: 12-09-2012 End: 06-08-2013 Lipid 1996 panel - Serum or Plasma Efrain Samuel MD Start: 12-09-2012 End: 12-09-2012 MMM Efrain Samuel MD Start: 12-09-2012 End: 12-15-2012 Nuclear stress test -adenosine Efrain Samuel MD Start: 12-09-2012 End: 12-09-2012 Follow Up Appt 6 months Tracy De La Cruz Start: 12-09-2012 End: 06-08-2013 Hepatic function 2000 panel - Serum or Plasma Efrain Samuel MD Start: 12-09-2012 End: 06-08-2013 Lipid 1996 panel - Serum or Plasma Efrain Samuel MD Start: 12-09-2012 End: 12-09-2012 MMM Efrain Samuel MD Start: 12-09-2012 End: 12-15-2012 Nuclear stress test -adenosine Efrain Samuel MD Start: 05-05-2012 End: 05-05-2012 Follow Up Appt 6 months Tracy De La Cruz Start: 05-05-2012 End: 05-05-2012 Follow Up Appt 6 months Tracy De La Cruz Start: 04-29-2012 End: 12-15-2012 *Hepatic Function Panel Tracy De La Cruz Start: 04-29-2012 End: 12-15-2012 Lipid 1996 panel - Serum or Plasma Efrain Samuel MD Start: 04-29-2012 End: 12-15-2012 Hepatic function 2000 panel - Serum or Plasma Efrain Samuel MD Start: 04-29-2012 End: 12-15-2012 Lipid 1996 panel - Serum or Plasma Efrain Samuel MD Start: 11-04-2011 End: 11-04-2011 Follow Up Appt 6 months Tracy De La Cruz Start: 11-04-2011 End: 11-04-2011 Follow Up Appt 6 months Tracy De La Cruz Start: 01-09-2011 Placement of stent i n coronary artery Status post cardiac stent placement Tali Ashleyaleahosiel Work Phone: Start: 12-20-2008 History of placement of stent for coronary artery disease History of coronary artery stent placement Dr. Martin Gutierrez Work Phone: Comment on above: ZWA-BJM-Asv-Distal R CA w/ 3.5 x 30 mm, 3.0 x 12 mm, 3.5 x 24 mm [facility] Stents 12/20/2008 Investigation of transfusion reaction Dr. Martin Gutierrez Work Phone: Microbial culture, routine D kimberley Gutierrez Work Phone: Urine culture Dr. Martin Gutierrez Work Phone: Urine culture Dr. Martin Gutierrez Work Phone: Plan of Treatment Date Care Activity Detail Author Start: 05-01-2025 [facility] Start: 09-28-2024 Patient discharge [facility] Start: 09-26-2024 Contact precautions [facility] Start: 09-26-2024 Respiratory secretion precautions [facility] Start: 09-26-2024 Following clinical pathway protocol [facility] Start: 09-26-2024 Assessment of risk of venous thromboembolism [facility] Start: 09-26-2024 Fall prevention [facility] Start: 09-26-2024 Incentive spirometry [facility] Start: 09-26-2024 Inhalation therapy procedure [facility] Start: 09-26-2024 Insertion of catheter into peripheral vein [facility] Start: 09-26-2024 Introduction of urinary catheter [facility] Start: 09-26-2024 Measuring intake and output [facility] Start: 09-26-2024 Oxygen therapy [facility] Start: 09-26-2024 Providing care according to standard [facility] Start: 09-26-2024 Provision of activity privileges [facility] Start: 09-26-2024 Referral to occupational therapist [facility] Start: 09-26-2024 Referral to service [facility] Start: 09-26-2024 Tobacco use cessation education [facility] Start: 09-26-2024 [facility] Start: 09-26-2024 Admission procedure [facility] Start: 11-29-2020 Following clinical pathway protocol [facility] Start: 07-27-2017 End: 07-27-2017 Appointment Appointment [facility] Work Phone: Start: 07-01-2017 End: 07-01-2017 Echocardiography Echocardiogram (complete) [facility] Work Phone: Start: 07-01-2017 End: 07-01-2017 Echocardiography Echocardiogram (complete) [facility] Work Phone: Start: 01-15-2017 End: 01-15-2017 Carotid duplex Carotid duplex [facility] Work Phone: Start: 01-15-2017 End: 07-01-2017 Follow Up Appt 6 months Follow Up Appt 6 months [facility] Work Phone: Start: 01-15-2017 End: 07-01-2017 MMM MMM [facility] Work Phone: Start: 01-15-2017 End: 01-15-2017 Patient encounter procedure Appointment [facility] Work Phone: Start: 01-15-2017 End: 01-15-2017 Carotid duplex Carotid duplex [facility] Work Phone: Start: 01-15-2017 End: 07-01-2017 Follow Up Appt 6 months Follow Up Appt 6 months [facility] Work Phone: Start: 01-15-2017 End: 07-01-2017 MMM MMM [facility] Work Phone: Start: 08-22-2016 End: 09-02-2016 *PTH (Parathyroid Hormone) *PTH (Parathyroid Hormone) [facility] Work Phone: Start: 08-22-2016 End: 09-04-2016 1,25-Dihydroxyvitamin D [Mass/volume] in Serum or Plasma *[id number] Vitamin D, 1, 25- DiHydroxy [facility] Work Phone: Start: 08-22-2016 End: 08-22-2016 Alkaline phosphatase (ALP) *ALK Alkaline Phosphatase, Serum [facility] Work Phone: Start: 08-22-2016 End: 09-02-2016 Calcium *Calcium, Total [facility] Work Phone: Start: 08-22-2016 End: 08-22-2016 Ct upper extremity w/o contrast material CT Upper Extremity [facility] Work Phone: Start: 08-22-2016 End: 09-02-2016 *PTH (Parathyroid Hormone) *PTH (Parathyroid Hormone) [facility] Work Phone: Start: 08-22-2016 End: 09-04-2016 1,25-Dihydroxyvitamin D [Mass/volume] in Serum or Plasma *[id number] Vitamin D, 1, 25- DiHydroxy [facility] Work Phone: Start: 08-22-2016 End: 08-22-2016 Alkaline phosphatase [Enzymatic activity/volume] in Serum or Plasma *ALK Alkaline Phosphatase, Serum [facility] Work Phone: Start: 08-22-2016 End: 09-02-2016 Calcium [Mass/volume] in Serum or Plasma *Calcium, Total [facility] Work Phone: Start: 08-22-2016 End: 08-22-2016 Ct upper extremity w/o contrast material CT Upper Extremity [facility] Work Phone: Start: 08-21-2016 End: 08-21-2016 Mri any jt upper extremity w/o contrast matrl MRI Joint Upper Extremity [facility] Work Phone: Start: 08-21-2016 End: 08-21-2016 Radex elbow complete minimum 3 views X-Ray, Elbow [facility] Work Phone: Start: 08-21-2016 End: 08-21-2016 Mri any jt upper extremity w/o contrast matrl MRI Joint Upper Extremity [facility] Work Phone: Start: 08-21-2016 End: 08-21-2016 Radex elbow complete minimum 3 views X-Ray, Elbow [facility] Work Phone: Start: 07-15-2016 End: 07-15-2016 [facility] Work Phone: Start: 07-15-2016 End: 07-15-2016 Follow Up Appt 6 months Follow Up Appt 6 months [facility] Work Phone: Start: 07-15-2016 End: 07-15-2016 Nuclear stress test -Lexiscan Nuclear stress test -Lexiscan [facility] Work Phone: Start: 07-15-2016 End: 07-15-2016 [facility] Work Phone: Start: 07-15-2016 End: 07-15-2016 Follow Up Appt 6 months Follow Up Appt 6 months [facility] Work Phone: Start: 07-15-2016 End: 07-15-2016 Nuclear stress test -Lexiscan Nuclear stress test -Lexiscan [facility] Work Phone: Start: 01-24-2016 Hemoglobin glycosylated a1c Hemoglobin Glyclated (HGB A1C) (29218) [facility] Work Phone: Start: 12-11-2015 End: 12-11-2015 Chest x-ray X-Ray, Chest, PA & Lateral [facility] Work Phone: Start: 12-11-2015 End: 12-11-2015 Follow Up Appt 6 months Follow Up Appt 6 months [facility] Work Phone: Start: 12-11-2015 End: 12-11-2015 MMM MMM [facility] Work Phone: Start: 12-11-2015 End: 07-14-2017 Chest x-ray X-Ray, Chest, PA & Lateral [facility] Work Phone: Start: 12-11-2015 End: 12-11-2015 Follow Up Appt 6 months Follow Up Appt 6 months [facility] Work Phone: Start: 12-11-2015 End: 12-11-2015 [facility] Work [facility]: Start: 09-26-2015 Hemoglobin glycosylated a1c Hemoglobin Glyclated (HGB A1C) (27282) [facility] Work Phone: Start: 08-30-2015 Procedure Education Eprescribed prescriptions (G8553) [facility] Work Phone: Start: 08-30-2015 Provider Instructions for Treatment [facility] Work Phone: Start: 08-30-2015 Hemoglobin glycosylated a1c Hemoglobin Glyclated (HGB A1C) (03987) [facility] Work Phone: Start: 08-30-2015 Alpha-fetoprotein serum [id number] (07392) [facility] Work Phone: Start: 08-30-2015 Thromboplastin time partial plasma/whole blood PTT (Activated Partial Thromboplastin Time) (98303) [facility] Work Phone: Start: 08-30-2015 Prothrombin time PT (Prothrobim Time) (85272) [facility] Work Phone: Start: 08-30-2015 25 hydroxy includes fractions if performed CALCIFIDIOL (38008) VIT D 25 [facility] Work Phone: Start: 08-30-2015 Cyanocobalamin vitamin b-12 VITAMIN B-12 (CYANOCOBALAMIN) (91352) [facility] Work Phone: Start: 08-30-2015 Urnls dip stick/tablet reagent auto microscopy URINALYSIS, W/ MICRO (37400) [facility] Work Phone: Start: 08-30-2015 Urine albumin quantitative MICROALBUMIN: CREATININE RATIO (53368) AND (46327) [facility] Work Phone: Start: 08-30-2015 Comprehensive metabolic panel METABOLIC PANEL, COMPREHENSIVE (40652) [facility] Work Phone: Start: 08-30-2015 Assay of thyroid stimulating hormone tsh TSH (64258) [facility] Work Phone: Start: 08-30-2015 Lipid panel LIPID PANEL (25033) [facility] Work Phone: Start: 08-30-2015 Blood count complete auto&auto difrntl wbc CBC W/AUTO DIFF WBC (97737) [facility] Work Phone: Start: 07-26-2015 Provider Instructions for Treatment [facility] Work Phone: Start: 07-26-2015 Cytp cerv/vag auto thin layer prep mnl screen Thin prep Pap (18140) (no STD testing) [facility]; [facility] Work Phone: Start: 05-29-2015 Hemoglobin glycosylated a1c Hemoglobin Glyclated (HGB A1C) (01640) [facility] Work Phone: Start: 02-06-2015 End: 02-06-2015 *Hepatic Function Panel *Hepatic Function Panel [facility] Work Phone: Start: 02-06-2015 End: 02-06-2015 [facility] Work Phone: Start: 02-06-2015 End: 02-06-2015 Ecg routine ecg w/least 12 lds w/i&r EKG (In office) [facility] Work Phone: Start: 02-06-2015 End: 02-06-2015 Follow Up Appt 6 months Follow Up Appt 6 months [facility] Work Phone: Start: 02-06-2015 End: 02-06-2015 Lipid panel [AGGREGATE] *Lipid Profile CC PCP [facility] Work Phone: Start: 02-06-2015 End: 02-06-2015 [facility] Work Phone: Start: 02-06-2015 End: 02-06-2015 Ecg routine ecg w/least 12 lds w/i&r EKG (In office) [facility] Work Phone: Start: 02-06-2015 End: 02-06-2015 Follow Up Appt 6 months Follow Up Appt 6 months [facility] Work Phone: Start: 02-06-2015 End: 07-14-2017 Hepatic function 2000 panel - Serum or Plasma *Hepatic Function Panel [facility] Work Phone: Start: 02-06-2015 End: 07-14-2017 Lipid 1996 panel - Serum or Plasma *Lipid Profile CC PCP [facility] Work Phone: Start: 01-31-2015 Cyanocobalamin vitamin b-12 VITAMIN B-12 (CYANOCOBALAMIN) (68346) [facility] Work Phone: Start: 01-29-2015 Procedure Education Eprescribed prescriptions (G8553) [facility] Work Phone: Start: 01-29-2015 Provider Instructions for Treatment [facility] Work Phone: Start: 01-29-2015 Hemoglobin glycosylated a1c Hemoglobin Glyclated (HGB A1C) (15095) [facility]; [facility] Work Phone: Start: 01-29-2015 Cyanocobalamin vitamin b-12 VITAMIN B12 AND FOLATES (09743) [facility] Work Phone: Start: 01-29-2015 Thromboplastin time partial plasma/whole blood PTT (Activated Partial Thromboplastin Time) (17841) [facility] Work Phone: Start: 01-29-2015 Prothrombin time PT (Prothrobim Time) (09788) [facility] Work Phone: Start: 01-29-2015 Alpha-fetoprotein serum [id number] (59008) [facility]; [facility] Work Phone: Start: 01-29-2015 25 hydroxy includes fractions if performed CALCIFIDIOL (75936) VIT D 25 [facility] Work Phone: Start: 01-29-2015 Assay of thyroid stimulating hormone tsh TSH (50300) [facility] Work Phone: Start: 01-29-2015 Blood count complete auto&auto difrntl wbc CBC W/AUTO DIFF WBC (10062) [facility]; [facility] Work Phone: Start: 01-29-2015 Lipid panel LIPID PANEL (39127) [facility] Work Phone: Start: 01-29-2015 Comprehensive metabolic panel METABOLIC PANEL, COMPREHENSIVE (73170) [facility] Work Phone: Start: 10-11-2014 Provider Instructions for Treatment [facility] Work Phone: Start: 10-11-2014 Hepatic function panel HEPATIC FUNCTION PANEL (56281) [facility] Work Phone: Comment on above: do in 2 months Start: 10-11-2014 Lipid panel LIPID PANEL (68279) [facility] Work Phone: Comment on above: do in 2 months Start: 10-02-2014 Provider Instructions for Treatment [facility] Work Phone: Start: 08-30-2014 Provider Instructions for Treatment [facility] Work Phone: Start: 05-24-2014 End: 02-06-2015 *Hepatic Function Panel *Hepatic Function Panel [facility] Work Phone: Start: 05-24-2014 End: 02-06-2015 Lipid panel [AGGREGATE] *Lipid Profile CC PCP [facility] Work Phone: Start: 05-24-2014 End: 02-06-2015 Hepatic function 2000 panel - Serum or Plasma *Hepatic Function Panel [facility] Work Phone: Start: 05-24-2014 End: 02-06-2015 Lipid 1996 panel - Serum or Plasma *Lipid Profile CC PCP [facility] Work Phone: Start: 03-02-2014 End: 03-02-2014 *Hepatic Function Panel *Hepatic Function Panel [facility] Work Phone: Start: 03-02-2014 End: 08-09-2014 Follow Up Appt 6 months Follow Up Appt 6 months [facility] Work Phone: Start: 03-02-2014 End: 03-02-2014 Lipid panel [AGGREGATE] *Lipid Profile CC PCP [facility] Work Phone: Start: 03-02-2014 End: 08-09-2014 MMM MM [facility] Work Phone: Start: 03-02-2014 End: 08-09-2014 Follow Up Appt 6 months Follow Up Appt 6 months [facility] Work Phone: Start: 03-02-2014 End: 03-02-2014 Hepatic function 2000 panel - Serum or Plasma *Hepatic Function Panel [facility] Work Phone: Start: 03-02-2014 End: 03-02-2014 Lipid 1996 panel - Serum or Plasma *Lipid Profile CC PCP [facility] Work Phone: Start: 03-02-2014 End: 08-09-2014 MMM MMM [facility] Work Phone: Start: 10-28-2013 Patient Education Cough Medicines, Nonprescription: cough [facility] Work Phone: Start: 10-28-2013 Provider Instructions for Treatment [facility] Work Phone: Start: 06-08-2013 End: 08-09-2014 *Hepatic Function Panel *Hepatic Function Panel [facility] Work Phone: Start: 06-08-2013 End: 06-08-2013 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 PV 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 PV INSTALLER [facility] Work Phone: Start: 06-08-2013 End: 06-08-2013 Follow Up Appt 6 months Follow Up Appt 6 months [facility] Work Phone: Start: 06-08-2013 End: 08-09-2014 Lipid panel [AGGREGATE] *Lipid Profile CC PCP [facility] Work Phone: Start: 06-08-2013 End: 06-08-2013 SOLAR PV INSTALLER SOLAR PV INSTALLER [facility] Work Phone: Start: 06-08-2013 End: 06-08-2013 Follow Up Appt 6 months Follow Up Appt 6 months [facility] Work Phone: Start: 06-08-2013 End: 08-09-2014 Hepatic function 2000 panel - Serum or Plasma *Hepatic Function Panel [facility] Work Phone: Start: 06-08-2013 End: 08-09-2014 Lipid 1996 panel - Serum or Plasma *Lipid Profile CC PCP [facility] Work Phone: Start: 12-09-2012 End: 06-08-2013 *Hepatic Function Panel *Hepatic Function Panel [facility] Work Phone: Start: 12-09-2012 End: 12-09-2012 Follow Up Appt 6 months Follow Up Appt 6 months [facility] Work Phone: Start: 12-09-2012 End: 06-08-2013 Lipid panel [AGGREGATE] *Lipid Profile [facility] Work Phone: Start: 12-09-2012 End: 12-09-2012 MMM MMM [facility] Work Phone: Start: 12-09-2012 End: 12-09-2012 Nuclear stress test -adenosine Nuclear stress test -adenosine [facility] Work Phone: Start: 12-09-2012 End: 12-09-2012 Follow Up Appt 6 months Follow Up Appt 6 months [facility] Work Phone: Start: 12-09-2012 End: 06-08-2013 Hepatic function 2000 panel - Serum or Plasma *Hepatic Function Panel [facility] Work Phone: Start: 12-09-2012 End: 06-08-2013 Lipid 1996 panel - Serum or Plasma *Lipid Profile [facility] Work Phone: Start: 12-09-2012 End: 12-09-2012 MMM MMM [facility] Work Phone: Start: 12-09-2012 End: 12-09-2012 Nuclear stress test -adenosine Nuclear stress test -adenosine [facility] Work Phone: Start: 07-28-2012 Patient Education Nutrition for Diabetics: Dining Out *: diet [facility]; [facility] Work Phone: Start: 07-28-2012 Provider Instructions for Treatment [facility] Work Phone: Start: 07-01-2012 Provider Instructions for Treatment 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 [facility] Work Phone: Start: 05-05-2012 End: 05-05-2012 Follow Up Appt 6 months Follow Up Appt 6 months [facility] Work Phone: Start: 05-05-2012 End: 05-05-2012 Follow Up Appt 6 months Follow Up Appt 6 months [facility] Work Phone: Start: 04-29-2012 End: 12-15-2012 *Hepatic Function Panel *Hepatic Function Panel [facility] Work Phone: Start: 04-29-2012 End: 12-15-2012 Lipid panel [AGGREGATE] *Lipid Profile [facility] Work Phone: Start: 04-29-2012 End: 12-15-2012 Hepatic function 2000 panel - Serum or Plasma *Hepatic Function Panel [facility] Work Phone: Start: 04-29-2012 End: 12-15-2012 Lipid 1996 panel - Serum or Plasma *Lipid Profile [facility] Work Phone: Start: 03-25-2012 Patient Education Hypothyroidism: Brief Version *: hypothyroidism [facility] Work Phone: Start: 03-25-2012 Provider Instructions for Treatment [facility] Work Phone: Start: 03-25-2012 Assay of thyroid stimulating hormone tsh TSH (62667) [facility] Work Phone: Start: 03-25-2012 Urine albumin quantitative MICROALBUMIN: CREATININE RATIO (47621) AND (89643) [facility] Work Phone: Start: 03-25-2012 Comprehensive metabolic panel METABOLIC PANEL, COMPREHENSIVE (59925) [facility] Work Phone: Start: 03-25-2012 Lipid panel LIPID PANEL (89506) [facility] Work Phone: Start: 03-25-2012 Blood count manual cell count each CBC WITH MANUAL DIFF (24119) [facility] Work Phone: Start: 01-19-2012 Assay of thyroid stimulating hormone tsh TSH (09747) [facility] Work Phone: Start: 11-21-2011 Provider Instructions for Treatment Follow up if no improvement or if symptoms worsen [facility] Work Phone: Start: 11-21-2011 25 hydroxy includes fractions if performed CALCIFEDIOL (68781) [facility] Work Phone: Start: 11-19-2011 Provider Instructions for Treatment Reviewed Lab [facility] Work Phone: Start: 11-19-2011 Extractable nuclear antigen antibody any method ANTI-CLINTON-1 [id number] (48793) [facility] Work Phone: Start: 11-19-2011 25 hydroxy includes fractions if performed CALCIFIDIOL (02917) VIT D 25 [facility] Work Phone: Start: 11-19-2011 Cyanocobalamin vitamin b-12 VITAMIN B-12 (CYANOCOBALAMIN) (55240) [facility] Work Phone: Start: 11-10-2011 Glucose quantitative blood xcpt reagent strip Glucose, PP/2 Hour (25168) [facility] Work Phone: Start: 11-07-2011 Provider Instructions for Treatment [facility] Work Phone: Start: 11-07-2011 Cyclic citrullinated peptide antibody CCP ANTIBODY (43899) [facility] Work Phone: Start: 11-07-2011 Sedimentation rate rbc non-automated SED RATE ERYTHROCYTE (80994) [facility] Work Phone: Start: 11-07-2011 Antinuclear antibodies rj RJ (ANTINUCLEAR ANTIBODY) (91170) [facility] Work Phone: Start: 11-07-2011 Assay of thyroid stimulating hormone tsh TSH (61614) [facility] Work Phone: Start: 11-07-2011 Blood count manual cell count each CBC WITH MANUAL DIFF (59037) [facility] Work Phone: Start: 11-07-2011 C-reactive protein C-REACTIVE PROTEIN (16387) [facility] Work Phone: Start: 11-07-2011 Rheumatoid factor quantitative RHEUMATOID FACTOR-QUANT (87536) [facility] Work Phone: Start: 11-07-2011 Comprehensive metabolic panel METABOLIC PANEL, COMPREHENSIVE (13443) [facility] Work Phone: Start: 11-04-2011 End: 11-04-2011 Follow Up Appt 6 months Follow Up Appt 6 months [facility] Work Phone: Start: 11-04-2011 End: 11-04-2011 Follow Up Appt 6 months Follow Up Appt 6 months [facility] Work Phone: Start: 10-06-2011 Provider Instructions for Treatment Follow up in 2 weeks [facility] Work Phone: Start: 09-17-2010 Glucose quantitative blood xcpt reagent strip Glucose, PP/2 Hour (71603) [facility] Work Phone: Start: 09-16-2010 Provider Instructions for Treatment [facility] Work Phone: Start: 09-16-2010 Hepatic function panel HEPATIC FUNCTION PANEL (96833) [facility] Work Phone: Start: 09-09-2010 Renal function panel Renal function Panel (04234) [facility] Work Phone: Start: 09-09-2010 Culture bacterial quanttative colony count urine URINE BRAD CULTURE-BUDDY COL COUNT (40238) [facility] Work Phone: Start: 09-09-2010 Patient Education Water in diet, brief version [facility] Work Phone: Start: 09-09-2010 Provider Instructions for Treatment FOLLOW UP IN 1 WEEK [facility] Work Phone: Start: 05-20-2010 Blood count manual cell count each CBC with manual diff (15425) [facility] Work Phone: Comment on above: please do in ER Start: 05-20-2010 Fibrin dgradj products d-dimer quantitative D-Dimer (67755) [facility]; [facility] Work Phone: Comment on above: stat please do in ER Start: 05-20-2010 Provider Instructions for Treatment [facility] Work Phone: Start: 04-25-2010 Provider Instructions for Treatment [facility] Work Phone: Start: 04-25-2010 Cytp cerv/vag auto thin layer prep mnl screen Thin prep Pap (97931) [facility] Work Phone: Start: 04-15-2010 Provider Instructions for Treatment Continue Current Prescription(s) [facility] Work Phone: Start: 04-09-2010 Provider Instructions for Treatment FOLLOW UP TOMORROW [facility]; [facility] Work Phone: Start: 04-08-2010 Provider Instructions for Treatment [facility] Work Phone: Start: 03-18-2010 Lipid panel LIPID PANEL (24159) [facility]; [facility] Work Phone: Start: 03-18-2010 Assay of thyroid stimulating hormone tsh TSH (77491) [facility]; [facility] Work Phone: Start: 03-18-2010 Urnls dip stick/tablet reagent auto microscopy URINALYSIS, W/ MICRO (76533) [facility]; [facility] Work Phone: Start: 03-18-2010 Urine albumin quantitative MICROALBUMIN: CREATININE RATIO (78189) AND (82684) [facility]; [facility] Work Phone: Start: 03-18-2010 Comprehensive metabolic panel METABOLIC PANEL, COMPREHENSIVE (94498) [facility] Work Phone: Start: 03-18-2010 Blood count manual cell count each CBC WITH MANUAL DIFF (35729) [facility]; [facility] Work Phone: Start: 03-18-2010 Provider Instructions for Treatment [facility] Work Phone: Start: 04-26-2009 Provider Instructions for Treatment [facility] Work Phone: Start: 04-26-2009 Urnls dip stick/tablet rgnt auto w/o microscopy URINALYSIS W/O MICRO (65485) [facility] Work Phone: Start: 04-26-2009 Assay of thyroid stimulating hormone tsh TSH (26347) [facility]; [facility] Work Phone: Start: 04-26-2009 Urine albumin quantitative MICROALBUMIN: CREATININE RATIO (74204) AND (24567) [facility] Work Phone: Start: 04-26-2009 Comprehensive metabolic panel METABOLIC PANEL, COMPREHENSIVE (76841) [facility] Work Phone: Start: 04-26-2009 Blood count manual cell count each CBC WITH MANUAL DIFF (97447) [facility] Work Phone: Start: 04-26-2009 Hepatic function panel HEPATIC FUNCTION PANEL (46660) [facility]; [facility] Work Phone: Start: 04-26-2009 Lipid panel LIPID PANEL (53390) [facility]; [facility] Work Phone: Start: 04-26-2009 Lipoprotein blood buddy numbers & subclasses LIPOPROTEIN, BLD, BY NMR (35130) [facility] Work Phone: Start: 2009 Provider Instructions for Treatment [facility] Work Phone: Start: 03-26-2009 Provider Instructions for Treatment [facility] Work Phone: Start: 12-12-2008 Provider Instructions for Treatment [facility] Work Phone: Start: 12-12-2008 Basic metabolic panel calcium total Metabolic Panel, Basic (96846) [facility]; [facility] Work Phone: Comment on above: To be drawn December 21 Start: 11-22-2008 Provider Instructions for Treatment [facility] Work Phone: Start: 09-04-2008 Provider Instructions for Treatment [facility] Work Phone: Start: 11-05-2007 Fibrin dgradj products d-dimer quantitative D-Dimer (50766) [facility]; [facility] Work Phone: Start: 11-05-2007 Blood count complete auto&auto difrntl wbc CBC, Platelets & Auto Diff (24160) [facility]; [facility] Work Phone: CBC W Auto Different ial panel - Blood [facility] Work Phone: CBC W Auto Different ial panel - Blood [facility] CBC W Auto Different ial panel - Blood [facility] CBC W Auto Different ial panel - Blood [facility] CBC W Auto Different ial panel - Blood [facility] CT [facility] Work Phone: CT [facility] CT Chest [facility] Ferritin [Mass/volum e] in Serum or Plasma [facility] Work Phone: Ferritin [Mass/volum e] in Serum or Plasma [facility] Ferritin [Mass/volum e] in Serum or Plasma [facility] Ferritin [Mass/volum e] in Serum or Plasma [facility] Ferritin [Mass/volum e] in Serum or Plasma [facility] Iron and Iron bindin g capacity panel - Serum or Plasma [facility] Work Phone: Iron and Iron bindin g capacity panel - Serum or Plasma [facility] Iron and Iron bindin g capacity panel - Serum or Plasma [facility] Iron and Iron bindin g capacity panel - Serum or Plasma [facility] Iron and Iron bindin g capacity panel - Serum or Plasma [facility] MG Breast - bilatera l Screening [facility] Work Phone: MG Breast - bilatera l Screening [facility] Patient referral [facility] Work Phone: Reticulocyte count [facility] Reticulocyte count [facility] Reticulocyte count [facility] Vitamin B12 measurement [facility] Work Phone: Vitamin B12 measurement [facility] Work Phone: [facility] Work Phone[facility] Work Phone: [facility] Work Phone: [facility] Work Phone: [facility] Work Phone: [facility] Work Phone: [facility] Work Phone: [facility] Work Phone: [facility] Work Phone: [facility] Work Phone: [facility] Work Phone: [facility] Work Phone: [facility] Work Phone: [facility] Work Phone: [facility] Work Phone: [facility] Work Phone: [facility] Work Phone: [facility] Work Phone: [facility] Work Phone: [facility] Work Phone: [facility] Work Phone: [facility] Work Phone: [facility] Work Phone: [facility] Work Phone: [facility] Work Phone: [facility] Work Phone: [facility] Work Phone: Immunizations Immunization Date Immunization Notes Care Provider [facility] 05-30-2020 influenza, injectabl e, quadrivalent, preservative free Dr. Martin Gutierrez Work Phone: [facility] 05-30-2020 influenza, seasonal, injectable Dr. Martin Gutierrez Work Phone: [facility] 04-26-2009 influenza, seasonal, injectable Nerissa Ismael DO Work Phone: [facility] Work Phone: Comment on above: Given in Right delto idLot # [id number] 12/31CDH 04-26-2009 tetanus toxoid, reduced diphtheria toxoid, and acellular pertussis vaccine, adsorbed Nerissa Ismael DO Work Phone: [facility]; [facility] Work Phone: Comment on above: given in Left Deltoi dLot #[id number] 07-28-11DH 06-09-2008 influenza, seasonal, injectable Nerissa Ismael DO Work Phone: [facility] Work Phone: Payers Date Payer Category Payer Self-pay [id number] 2017 Unknown [id number] 2015 Unknown [id number] 1960 Unknown [id number] 2.16.8 [id number] Medicare MEDICARE PART A B [id number] Unknown Unknown [id number] Unknown [id number] 2.16.8 [id number] Unknown [id number] 2.16.8 [id number] Unknown [id number] 2.16.8 [id number] Unknown [id number] 2.16.8 [id number] Unknown [id number] 2.16.8 [id number] Unknown [id number] 2.16.8 40.1.096623.3.579.2.462 Unknown [id number] 2.16.8 40.1.118217.3.579.2.462 Unknown [id number] 2.16.8 40.1.970650.3.579.2.462 Unknown [id number] 2.16.8 40.1.547050.3.579.2.462 Unknown [id number] 2.16.8 40.1.868591.3.579.2.462 Unknown [id number] 2.16.8 40.1.498101.3.579.2.462 Unknown [id number] 2.16.8 40.1.908038.3.579.2.462 Unknown [id number] 2.16.8 40.1.058038.3.579.2.462 Unknown [id number] 2.16.8 40.1.591310.3.579.2.462 Unknown [id number] 2.16.8 40.1.714705.3.579.2.462 Unknown [id number] 2.16.8 40.1.842975.3.579.2.462 Unknown [id number] 2.16.8 40.1.814018.3.579.2.462 Unknown [id number] 2.16.8 [id number] Unknown [id number] 2.16.8 40.1.136060.3.579.2.462 Unknown [id number] 2.16.8 40.1.576730.3.579.2.462 Social History Date Type Detail Facility Caffeine Use Caffeine Use [facility] Work Phone: Comment on above: 1-3 cups qd Inactive , Lives with spouse 1/2 pack day >30 yrs 11/19/11 Start: 07-26-2021 End: 10-20-2022 Tobacco smoking status WVIS Unknown if ever smoked [facility] Start: 01-02-2021 None [facility] Start: 01-02-2021 Homeless [facility] Start: 11-28-2020 Cigarettes [facility] Start: 1960 Sex Assigned At Female [facility] Start: 09-26-2024 End: 09-27-2024 Tobacco smoking status NHIS Smokes tobacco daily (finding) [facility] Goals Date Patient Goal Desired Activity /State Functional Status Date Assessment Result Facility 09-28-2024 Functional status Chair [facility] Work Phone: Mental Status Date Assessment Result Facility 09-28-2024 Cognitive function Voice/Name [facility] Work Phone: 01-13-2024 Cognitive function Voice/Name [facility] Work Phone: 10-10-2021 Cognitive function Voice/Name [facility] Work Phone: 02-25-2019 Cognitive function Mood Descript ion Appropriate;Calm;Relaxed [facility] Work Phone: Clinical Notes 01-15-2017 to 05-01-2025 Note Date & Type Note Facility 05-01-2025 Progress note [facility] 05-01-2025 Progress note Note Date/Time May 01, 2025 3:55pm [facility] [address] [place] [id number] OFFICE VISIT Date of Service: 05/01/25 1534 MR#: [id number] Acct: [id number] Name: ANGELES LARIOS Rep #: [id number] : 1960 From: Simon campbell MD Age/Sex: 65/F [place] [facility] [place]: Signed HPI Subjective Date of Service 05/01/25 Chief Complaint Anemia History of Present Illness Patient is a 63-year-old female postmenopausal with significant atherosclerotic arterial disease on chronic anticoagulation with Coumadin and chronic with acuteepisodes of GI blood loss who has been [...] endoscopies did not reveal any active bleeding. Repeat endoscopies and capsule studies were done April 2021 at [facility], according to patient 2 colonic vascular lesions were seen and cauterized. Interval History PFSH Medical History Tobacco use disorder, continuous Iron deficiency anemia due to chronic blood loss History of stress test Depression Hypothyroidism GERD (gastroesophageal reflux disease) Smoker Coronary artery disease Hypertension DVT (deep venous thrombosis) TIA (transient ischemic attack) Anemia Macrocytosis Nicotine dependence Chronic GI bleeding Peripheral vascular disease Non-rheumatic aortic stenosis Dysarthria Atherosclerosis of coronary artery of [place] heart without angina pectoris Essential (primary) hypertension Encounter for screening for lung cancer Bilateral carotid artery stenosis Pernicious anemia Sleep apnea IBS (irritable bowel syndrome) History of DVT (deep vein thrombosis) Diarrhea Nausea & vomiting LEFT ARM SURGERY BLOOD CLOT Gastrointestinal bleed CVA (cerebral vascular accident) Hyperlipidemia Fibromyalgia Expressive language disorder Dysarthria Surgical History History of endoscopy S/P tubal ligation H/O cardiac catheterization History of cataract removal with insertion of prosthetic lens 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) Hx of bilateral cataract extraction History of coronary artery stent placement (12/20/08) History of left-sided carotid endarterectomy (01/2019) Hx of appendectomy Family History Father , at age 38, from [place] Myocardial infarction cardiomopathy Mother Atrial fibrillation Hypertension Hyperlipidemia Diabetes Brother CAD (coronary artery disease) cardiomopathy Myocardial infarction Sister cardiomopathy Social History adopted: No household members: spouse and family Smoking Status: Current every day smoker tobacco type: cigarettes Tobacco: How many years used: 50 Electronic Cigarette Use: not used second hand exposure: Yes quit status: has quit before alcohol intake: former year quit: 2017 substance use type: does not use caffeine: Yes Type: coffee Number of servings: 2 what type of physical activity do you participate in: none seatbelt use: sometimes do you feel safe at home: Yes ROS Constitutional Constitutional: Reports systems reviewed and no addt'l complaints, except as documented; Denies fever(s) Eyes Eyes: Reports systems reviewed and no addt'l complaints, except as documented ENT HEENT: Denies bleeding gums or epistaxis Cardiovascular Cardiovascular: Reports systems reviewed and no addt'l complaints, except as documented; Denies chest pain with activity or edema Respiratory/Chest Respiratory/Chest: Reports systems reviewed and no addt'l complaints, except as documented, cough and dyspnea on exertion; Denies hemoptysis Gastrointestinal Gastrointestinal: Reports systems reviewed and no addt'l complaints, except as documented; Denies hematochezia or melena Genitourinary Genitourinary: Reports systems reviewed and no addt'l complaints, except as documented; Denies hematuria Integumentary Integumentary: Reports unusual bruising; Denies bleeding lesions Neurologic Neurologic: Reports systems reviewed and no addt'l complaints, except as documented Psychiatric Psychiatric: Reports systems reviewed and no addt'l complaints, except as documented Endocrine Endocrinology: Reports systems reviewed and no addt'l complaints, except as documented Hematologic/Lymphatic Hematologic/Lymphatic: Reports easy bruising; Denies easy bleeding Allergic/Immunologic Allergic/Immunologic: Reports systems reviewed and no addt'l complaints, except as documented Intake Vital Signs 10/04/24 10:55 05/01/25 15:35 05/01/25 15:39 Height 5 ft 7 in 5 ft 7 in 5 ft 7 in Weight: 83.915 kg BMI 29.0 BP 145/74 H Blood Pressure Location Lt brachial Position Sitting Respiration 18 Pulse 71 Pulse Source Monitor Temp 98.2 F Temperature Source Temporal Artery Pulse Oximetry (%) 96 Oxygen Delivery Method room air Intake Is patient in pain?: No Allergies atorvastatin (From Lipitor) Adverse Reaction (Severe, Verified 05/01/25 15:36) Other codeine Adverse Reaction (Severe, Verified 05/01/25 15:36) Other Medications 3 ?Medication ?Instructions ?Recorded ?Confirmed ?Type nitroglycerin 0.4 mg sublingual 0.4 mg sublingual Q5-1 5M PRN chest 10/14/17 05/01/25 Rx tablet pain #25 tabs levothyroxine 25 mcg tablet 25 mcg PO DAILY thyroid 05/01/25 History rosuvastatin 40 mg tablet 40 mg PO QDAY hld 04/09/18 0 05/01/25 History acetaminophen 500 mg tablet 1,000 mg PO Q6H PRN Headac he 03/09/21 05/01/25 History (Tylenol Extra Strength) aspirin 81 mg tablet,delayed 81 mg PO DAILY blood thin ner 07/26/21 05/01/25 History release (Adult Low Dose Aspirin) famotidine 40 mg tablet 40 mg PO DAILY gerd 07/26/21 05/01/25 History ferrous sulfate 325 mg (65 mg 650 mg PO BID iron 04/1505/01/25 History iron) tablet duloxetine 60 mg capsule,delayed 60 mg PO BID depressi on 09/30/23 05/01/25 History release (Cymbalta) baclofen 10 mg tablet 10 mg PO DAILY spasms 05/01/25 History gabapentin 100 mg capsule 100 mg PO DAILY pain 5 05/01/25 History vitamins A,C,U-gqxr-htlvpn 4,296 1 cap PO DAILY supple ment 09/26/24 05/01/25 History mcg-226 mg-90 mg capsule (PreserVision AREDS) albuterol sulfate 90 mcg/actuation 2 puff inhalation Q 6H PRN 09/28/24 05/01/25 Rx aerosol inhaler shortness of breath or wheez ing #8.5 grams Have you fallen in the past year?: No Central Venous Access Central Venous Access: No Laboratory Tests 05/28/20 11/21/20 11/26/20 09:40 12:00 11:25 WBC Hgb 11.2 L 12.6 12.2 Hct MCV 107.6 H 110.5 H Plt Count Absolute Neuts (auto) Retic Count Iron Saturation 48.7 13.0 L Ferritin 28 23 Vitamin B12 03/01/21 03/08/21 03/09/21 11:54 21:15 06:34 WBC Hgb 8.4 L 7.5 L 8.8 L Hct MCV 115.3 H 117.0 H 106.7 H D Plt Count Absolute Neuts (auto) Retic Count Iron Saturation Ferritin Vitamin B12 03/10/21 03/11/21 05/07/21 05:38 16:51 13:05 WBC Hgb 9.0 L 11.0 L 10.7 L Hct MCV 108.6 H 107.0 H 105.6 H Plt Count Absolute Neuts (auto) Retic Count Iron Saturation 6.3 L Ferritin 12 Vitamin B12 07/10/21 09/17/21 09/17/21 14:40 12:35 12:35 WBC Hgb 9.6 L 8.9 L Hct MCV Plt Count Absolute Neuts (auto) Retic Count Iron Saturation 9.2 L Ferritin 37 12 12 Vitamin B12 09/17/21 09/17/21 11/06/21 12:35 12:35 14:19 WBC Hgb 8.9 L 11.6 L Hct MCV Plt Count Absolute Neuts (auto) Retic Count Iron Saturation 6.7 L 6.7 L 18.7 Ferritin 38 Vitamin B12 12/02/21 02/19/22 04/23/22 13:17 13:08 14:42 WBC Hgb 12.1 13.7 13.5 Hct MCV 102.9 H Plt Count Absolute Neuts (auto) Retic Count Iron Saturation 8.5 L Ferritin 28 Vitamin B12 06/11/22 09/02/22 12/11/22 13:19 12:46 14:19 WBC Hgb 14.9 14.9 14.3 Hct MCV Plt Count Absolute Neuts (auto) Retic Count Iron Saturation 14.0 L Ferritin 26 Vitamin B12 04/15/23 06/09/23 08/26/23 10:15 13:25 11:17 WBC Hgb 14.3 13.2 12.1 Hct MCV 104.4 H Plt Count Absolute Neuts (auto) Retic Count Iron Saturation 23.9 Ferritin 34 Vitamin B12 09/30/23 12/18/23 12/31/23 12:50 10:35 09:05 WBC Hgb 13.7 10.5 L 11.9 L Hct MCV 105.7 H 113.6 H 112.2 H Plt Count Absolute Neuts (auto) Retic Count Iron Saturation 11.3 L 6.2 L Ferritin 27 34 Vitamin B12 03/30/24 06/15/24 10/04/24 12:34 11:32 10:15 WBC Hgb 12.7 11.9 L 10.4 L Hct 38.6 32.1 L MCV 105.6 H Plt Count Absolute Neuts (auto) Retic Count 1.87 H 3.65 H Iron Saturation 19.5 9.5 L Ferritin 18 38 Vitamin B12 438 09/08/25 14:47 WBC 5.2 Hgb 11.1 L Hct MCV 108.5 H Plt Count 238 Absolute Neuts (auto) 3.7 Retic Count Iron Saturation 10.0 L Ferritin 66 Vitamin B12 Exam Physical Exam Narrative ECOG one, strong smell of cigarette Const alert, oriented x3 and no apparent distress General Appearance: cooperative and comfortable Nutritional Appearance: obese HEENT normocephalic Head and Scalp: normal to inspection Face and Sinus: normal facial exam Mouth: oral and palatal mucosa normal Eyes General Eye: normal appearance of both eyes Neck no lymphadenopathy, supple and no JVD Lymph Lymphatic: no lymphadenopathy noted Chest Chest: symmetrical chest wall rise Resp clear to auscultation bilaterally Auscultation: wheezes and diminished lung sounds bilateral and diffuse Cardio regular rate and regular rhythm Jugular Venous Distention: Negative for JVD GI soft to palpation, non-tender and non-distended; Negative for hepatosplenomegaly no CVA tenderness Back/Spine no thoracic nor lumbar tenderness Extremity no clubbing, cyanosis or edema Skin no rashes or lesions noted General Skin Exam: ecchymosis Neuro oriented x3, CN's II-XII intact bilaterally, moves all extremities and no focal motor deficits Coordination / Balance: epbalx-wh-ebmu test normal Speech: speech normal Gait (Neuro): normal gait Psych mental status grossly normal Coding Level of Care Code Off vis,est,level 4 Exam Problem Focused Diagnoses Iron deficiency anemia due to chronic blood loss D50.0 Macrocytosis D75.89 Assessment and Plan Assessment and Plan (1) Iron deficiency anemia due to chronic blood loss: Status: Chronic (2) Macrocytosis: Status: Chronic Plan 64-year-old female with: #1-Chronic/recurrent iron deficiency anemia due to chronic GI blood loss, source not identified on initial endoscopies in November 2017. However, repeat GI work-up with upper and lower endoscopies and capsule study inSeptember 2020 revealed bleeding vascular malformations in the colon that were cauterized. Patient has been on oral iron supplements since August 2017, supplemented with IV iron needed. Seen October 04, 2024 less than a week from being hospitalized with acute influenza which likely affected her blood counts and iron profile. #2-Macrocytosis with no evidence for B12, folate, thyroid insufficiency or chronic liver disease indicative of an additional primary bone marrow disease such as MDS. #3-High risk for lung cancer, chronic active smoker. Plan: #1 continue oral iron supplement with vitamin C (being on acid suppressant therapy long-term) 1 -2 tablet daily as tolerated correction. #2 Supplement oral iron with IV infusion as guided by iron studies. #3 For lung cancer screening patient is up-to-date last being July 2024. For screening mammography she missed 2023. For convenience she prefers getting both screening imaging on the same day and will therefore be scheduled in July 2025. #4 For macrocytosis unexplained suspect the primary bone marrow disease but in absence of significant anemia (after correction of iron deficiency) and other cytopenias we will continue to watch. #5 Continue follow-up with GI at [facility]. Impression and recommendations discussed. Follow-up in 6 months, sooner if she becomes symptomatic. She was seen with her son. Simon Ulloa MD [employer], [facility] Divisions of Medical Oncology & Hematology Department of Internal Medicine [place] [phone] This note was generated using a voice recognition system software. Although itwas reviewed by the author prior to finalization, it may still contain incorrectwords, spelling, and punctuation that were not noted when reviewing prior to saving. If a clinically significant typo or inaccurately typed phrase is noted, please notify the author. Clinical Quality Measures Falls Risk Screening/Assistive Devices Have you fallen in the past year?: No 05/01/25 1555 <Electronically signed by Simon ware MD> Date _ Simon Ulloa MD Cosigner Signature: Date (if applicable) CC: Dr. Martin Gutierrez MD ~ [employer] Work Phone: 1(781) 757-900805-07-2025 Discharge summary Author Pardeep Betancur [facility] Note Date/Time December 28, 2024 3:21pm [facility] Physical Therapy [facility] [address] [place] [address] / REHABILITATION SERVICES DISCHARGE SUMMARY MR#: [id number] Acct: [id number] Name: ANGELES LARIOS Rep #: [id number] : 1960 64 From: Cert. CAPRI MejiasT, OCS Referring Dr.: Dr. Armando Ga MD Status: REG RCR Insurance: [facility] [id number] SELF PAY INSURANCE Patient Information Patient Information: ANGELES LARIOS was seen in my office for initial evaluation on 11/14/24. The following Plan of Care was established for this patient: POC Established Initial Frequency: 2x /Week Initial Duration: 4 Weeks Anticipated Interventions Patient/Client Instruction: Educate patient on: Condition and Plan of Care For the Purpose of:: To decrease pain, To increase ROM, To improve muscle performance and motor function, To increase tolerance to activity/condition/position, To improve ability of physical actions for home/community/work/leisure, To improve health of tissue, To increase flexibility/ROM, To assume or resume ADL's and To improve tolerance to ADL's Therapeutic Exercise to Include: Strength training, Body mechanics, Postural training, Flexibilty training and Dynamic Lumbar Stabilization For the Purpose of:: To decrease pain, To increase ROM, To improve muscle performance and motor function, To improve ability to perform ADL's, To increasetolerance to activity/condition/position, To improve ability of physical actionsfor home/community/work/leisure, To improve health of tissue, To decrease soft tissue restriction and To improve tolerance to ADL's TENS: Yes IF ES: Yes Cryotherapy (ice pack, ice massage): Yes Thermo therapy (hot pack): Yes Ultrasound (thermal/non thermal): Yes For the Purpose of:: To decrease pain, To increase ROM, To increase oxygenation perfusion, To improve health of tissue and To decrease soft tissue restriction Last Seen Last Seen: This patient was last seen in our office . Pertinent comments regarding their Physical therapy will appear below: Patient was seen for PT for initial evaluation for HEP and thus d/c At this point I will be discontinuing this patient from physical therapy. I would be happy to see this patient again in the future if found appropriate by the physician. Thank you! Pardeep Betancur PT, [employer] [place], OCS Balance/Gait/Functional tests Balance/Special Test Scores Oswestry Low Back Score: 25 <Electronically signed by Cert. KASEY Cao PT, OCS> 12/28/24 1521 CC: Dr. Armando Ga MD; Dr. Martin Gutierrez MD ~ JLHosea Signed [facility] Work Phone: 1(346) 543-129305-07-2025 Discharge summary [facility] Physical [facility] [facility] [address] [place] [address] / REHABILITATION SERVICES DISCHARGE SUMMARY MR#: [id number] Acct: [id number] Name: ANGELES LARIOS Rep #: [id number] : 1960 64 From: Cert. KASEY Mejias, NIGEL Referring Dr.: Dr. Armando Ga MD Status: REG [facility] Insurance: [facility] [id number] SELF PAY INSURANCE Patient Information Patient Information: ANGELES LARIOS was seen in my office for initial evaluation on 11/14/24. The following Plan of Care was established for this patient: POC Established Initial Frequency: 2x /Week Initial Duration: 4 Weeks Anticipated Interventions Patient/Client Instruction: Educate patient on: Condition and Plan of Care For the Purpose of:: To decrease pain, To increase ROM, To improve muscle performance and motor function, To increase tolerance to activity/condition/position, To improve ability of physical actions for home/community/work/leisure, To improve health of tissue, To increase flexibility/ROM, To assumeor resume ADL's and To improve tolerance to ADL's Therapeutic Exercise to Include: Strength training, Body mechanics, Postural training, Flexibilty training and Dynamic Lumbar Stabilization For the Purpose of:: To decrease pain, To increase ROM, To improve muscle performance and motor function, To improve ability to perform ADL's, To increasetolerance to activity/condition/position, To improve ability of physical actionsfor home/community/work/leisure, To improve health of tissue, To d ecrease soft tissue restriction and To improve tolerance to ADL's TENS: Yes IF ES: Yes Cryotherapy (ice pack, ice massage): Yes Thermo therapy (hot pack): Yes Ultrasound (thermal/non thermal): Yes For the Purpose of:: To decrease pain, To increase ROM, To increase oxygenation perfusion, To improve health of tissue and To decrease soft tissue restriction Last Seen Last Seen: This patient was last seen in our office . Pertinent comments regarding their Physical therapy willappear below: Patient was seen for PT for initial evaluation for HEP and thus d/c At this point I will be discontinuing this patient from physical therapy. I would be happy to see this patient again in the future if found appropriate by the physician. Thank you! Pardeep Betancur, PT, Cert MDT, OCS Balance/Gait/Functional tests Balance/Special Test Scores Oswestry Low Back Score: 12/28/24 1521 CC: Dr. Armando Ga MD; Dr. Martin Gutierrez MD ~ JLA Signed [facility]02-05-2025 [facility] Medical Records Department [address] [place] [address] Discharge Summary 09/28/24 0954 MR#: [id number] Acct: [id number] Name: ANGELES LARIOS Rep #: [id number] : 1960 64 From: Scott Mcneal MD PCP: Dr. Martin Gutierrez MD Status:ADM IN Location: [place] [address] Providers Date of Admission: 09/26/24 Date of Discharge: 09/28/24 Primary Care Physician: Dr. Martin Gutierrez MD Reason For Visit: HYPOXIA INFLUENZA A Diagnosis Discharge Diagnosis (1) Influenza A: Status: Acute Code(s): J10.1 - Influenza due to other identified influenza virus with other respiratory manifestations (2) Hypoxia: Status: Acute Code(s): R09.02 - Hypoxemia Plan Patient is a 64-year-old lady who presented with progressive generalized weakness loss of appetite and cough over a week. Patient tested positive for acute influenza A virus. Admitted to regular nursing floor for further management 1. Acute hypoxia ??? Secondary to acute influenza A pneumonia. Patient was deemed to be outside the window for Tamiflu admitted to regular nursing floor for symptom management 2. Hypokalemia ??? Corrected per protocol 3. Dyslipidemia ???Patient is on statin therapy, continued at home dose 4. Anemia ??? Secondary to chronic disorder monitoring H H and transfuse if patient becomes symptomatic or hemoglobin falls below 7. With patient having microcytosis ordered B12 levels as well as iron studies 5. Hypothyroidism ??? Patient is on levothyroxine home dose continued 6. Coronary artery disease ??? With previous PCI. Patient is on aspirin as well as rosuvastatin 7. Peripheral arterial disease ??? With previous left CEA patient is on rosuvastatin and aspirin 8. Dyslipidemia ???Patient is on statin therapy, continued at home dose chart history, not currently chronically anticoagulated. 9. History of VTE ??? Patient patient was treated with thrombectomy followed by systemic anticoagulation 10. Tobacco dependence ??? Counseled on cessation, offered nicotine patch for tobacco cravings 11. DVT prophylaxis ??? On enoxaparin Time spent in the patient's overall evaluation,decision-making process, review of diagnostic data, adjustment of management, discussion with other providers, nursing nursing and ancillary staff involved in patient's care documentation, 35 Minutes Medications at Discharge Home Medications nitroglycerin 0.4 mg sublingual tablet 0.4 mg sublingual Q5-15M PRN chest pain #25 tabs 10/14/17 levothyroxine 25 mcg tablet 25 mcg PO DAILY thyroid 11/30/17 rosuvastatin 40 mg tablet 40 mg PO QDAY hld 04/09/18 acetaminophen 500 mg tablet (Tylenol Extra Strength) 1,000 mg PO Q6H PRN Headache 03/09/21 aspirin 81 mg tablet,delayed release (Adult Low Dose Aspirin) 81 mg PO DAILY blood thinner 07/26/21 famotidine 40 mg tablet 40 mg PO DAILY gerd 07/26/21 ferrous sulfate 325 mg (65 mg iron) tablet 650 mg PO BID iron 04/15/23 duloxetine 60 mg capsule,delayed release (Cymbalta) 60 mg PO BID depression 09/30/23 baclofen 10 mg tablet 10 mg PO DAILY spasms 09/26/24 gabapentin 100 mg capsule 100 mg PO DAILY pain 09/26/24 vitamins A,C,T-bpzl-sdqosg 4,296 mcg-226 mg-90 mg capsule (PreserVision AREDS) 1 cap PO DAILY supplement 09/26/24 albuterol sulfate 90 mcg/actuation aerosol inhaler 2 puff inhalation Q6H PRN shortness of breath or wheezing #8.5 grams 09/28/24 doxycycline hyclate 100 mg capsule 100 mg PO BID #14 caps 09/28/24 guaifenesin 600 mg tablet, extended release 12 hr (Mucinex) 1,200 mg (2 x 600 mg) PO BID #20 tabs 09/28/24 prednisone 20 mg tablet 20 mg PO BID #10 tabs 09/28/24 Physical Exam Narrative GENERAL: cooperative HEENT: Atraumatic; normocephalic EYES; Anicteric, Normal Conjunctiva NECK; supple, normal thyroid, RESPIRATORY: Diminished to auscultation CARDIOVASCULAR: Regular S1 S2, GI: soft, normoactive bowel sounds, : No Renal angle tenderness; EXTREMITIES: No edema, no clubbing, MUSCULOSKELETAL: no muscle wasting NEURO: Awake; no lateralizing signs. SKIN: No Rash PSYCH; Flat affect Weight / BMI Weight Weight: 82.4 kg Body Mass Index (BMI) 28.4 ABG / Lab / Microbiology Data 09/28/24 05:05 09/28/24 05:05 Laboratory: Laboratory Results - last 24 hr 09/28/24 05:05: WBC 6.6, RBC 3.15 L, Hgb 10.8 L, Hct 33.7 L, MCV 107.0 H, MCH 34.3 H, MCHC 32.0, RDW Std Deviation 47.8 H, RDW Coeff of Dao 12.2, Plt Count 210, MPV 10.2, Immature Gran % (Auto) 0.500, Neut % (Auto) 83.2 H, Lymph % (Auto) 8.5 L, Clinch % (Auto) 7.6, Eos % (Auto) 0.0, Baso % (Auto) 0.2, Absolute Neuts (auto) 5.5, Absolute Lymphs (auto) 0.56 L, Nucleated RBC % 0, Sodium 138, Potassium 4.2, Chloride 105, Carbon Dioxide 27.0, Anion Gap 6, BUN 20 H, Creatinine 0.51 L, Estim Creat Clear Calc 76.35, Est GFR (MDRD) Af Amer 154, Est GFR (MDRD) Non-Af 127, BUN/Creatinine (more content notincluded)...[facility]02-03-2025 Evaluation note* Diagnosis Onset Date Resolution Status Admit Date Hypoxia resolved September 26, 2024 7:26pm Influenza A resolved September 26, 2024 7:26pm Iron deficiency anemia due t o chronic blood loss chronic September 10:07am Macrocytosis chronic September 10:07am Chronic GI bleeding chronic Febru timo 2024 10:15am Iron deficiency anemia deleted Fe bruary 2024 10:15am [facility] Work Phone: 1(662) 854-278202-24-2022 NoteHNO ID: [id number] Author: Leonard Urena MD Service: ? Author Type: Physician Type: Progress Notes Filed: 10/17/2021 4:37 PM Note Text: GASTROENTEROLOGY PROGRESS NOTE OUTPATIENT FOLLOW UP HPI: I saw Angeles Larios today for a follow up regarding recent scope. Angeles Larios was last seen here by me on 08/22/2021. This is a telephone/Virtual Visit being conducted as a result of the COVID-19 pandemic. The patient has consented to this virtual interaction. Had EGD and push enteroscopy in 07/19/2021: EGD: Mild antral erythema Endoscopic deployment of PillCam into the duodenum ? Push enteroscopy: Normal esophagus and stomach 2 oozing Dieulafoy lesions in D2 and D4, treated with bipolar coagulation Several nonbleeding AVMs treated with APC in the duodenum and jejunum Capsule endoscopy 07/19/2021: Prolonged small bowel transit lasting up to 7 hours. Multiple AVMs in the duodenum and jejunum with relative sparing of the ileum. Fresh red blood staining in parts of the proximal small bowel with old heme in the distal small bowel. Suggest anterograde double-balloon enteroscopy. She is getting iron infusions in [place] with her gravel hauler. Has been getting weekly infusions x 3 so far. Also on oral iron. She has mild constipation and dark formed stool from oral iron. Weight has been stable recently but she did lose weight ~ 80lbs last year. The patient is otherwise asymptomatic from a GI perspective. No abdominal pain, nausea or vomiting. No dysphagia, odynophagia or GERD. No melena or hematochezia. No jaundice, scleral icterus, dark urine or pale stool. She has not contacted [facility] for consideration of double-balloon enteroscopy. We gave her this information back in July 2021. She says she lost the information and never followed up. PAST MEDICAL HISTORY Diagnosis Date - Acquired hypothyroidism 05/10/2018 On levothyroxine - Coronary artery disease involving [place] coronary artery of [place] heart without angina pectoris 06/27/2017 ASA, plavix - CVA (cerebral vascular accident) ([facility]) 06/2012 - Embolus of femoral artery ([facility]) 06/25/2017 on right - Episode of recurrent major depressive disorder ([facility]) 05/10/2018 Duloxetine,wellbutrin, varenicline - Essential hypertension 06/27/2017 On metorpolol tartrate, lisinopril, isosorbide mononitrate ER - Fibromyalgia 05/10/2018 - GERD (gastroesophageal reflux disease) 05/10/2018 - History of echocardiogram 11/14/2019 EF 65-70%, mild MVR, mild aortic stenosis - Iron deficiency anemia 2017 - Irritable bowel syndrome with both constipation and diarrhea 05/10/2018 - Mixed hyperlipidemia 06/27/2017 - Murmur - Occlusion and stenosis of carotid artery without mention of cerebral infarction 09/06/2012 - PATRICA (obstructive sleep apnea) 05/10/2018 - PVD (peripheral vascular disease) ([facility]) 05/10/2018 - Snoring PAST SURGICAL HISTORY Procedure Laterality Date - APPENDECTOMY 1998 - COLONOSCOP W/ OR W/O BRSH SPEC 03/10/2021 - EGD W/O OR W/BRUSH/WASH 03/10/2021 - INSERT CATH,ART,PERCUT,SHORTTERM 10/13/2012 RIGHT - PAST SURGICAL HISTORY OF 2008 cardiac stents x 3 placed - PAST SURGICAL HISTORY OF 06/25/2017 Rt PRINTED [employer]IPPER ETCHER embolectomy - THROMBOENDARTECTMY NECK,NECK INCIS 10/13/2012 LEFT - TUBAL LIGATION HX 1989 Social History Tobacco Use - Smoking status: Current Every Day Smoker Packs/day: 2.00 Years: 45.00 Pack years: 90.00 Types: Cigarettes - Smokeless tobacco: Never Used - Tobacco comment: 0.50 ppd for the past year Substance Use Topics - Alcohol use: No Comment: quit 2017 - Drug use: No Family history reviewed. No history of IBD, CRC or HPB malignancy. Current Outpatient Medications Medication Sig - venlafaxine (EFFEXOR) 75 mg tablet Take by mouth. - vit C/E/Zn/coppr/lutein/zeaxan (PRESERVISION AREDS-2 ORAL) Take by mouth twice daily. - aspirin, enteric coated (ASPIRIN, ENTERIC COATED) 325 mg EC tablet Take 81 mg by mouth once daily. - ferrous sulfate 325 mg (65 mg iron) EC tablet Take 325 mg by mouth twice daily. - rosuvastatin (CRESTOR) 40 mg tablet Take 40 mg by mouth once daily. - nitroglycerin sublingual (NITROQUICK) 0.4 mg SL tablet Dissolve under the tongue as needed. - traZODone (DESYREL) 50 mg tablet Take 50 mg by mouth daily at bedtime. (Patient not taking: Reported on 07/15/2021 ) - clopidogrel (PLAVIX) 75 mg tablet Take 75 mg by mouth once daily. - levothyroxine (SYNTHROID) 25 mcg tablet Take 25 mcg by mouth once daily. - lisinopril (ZESTRIL, PRINIVIL) 20 mg tablet Take 20 mg by mouth once daily. - METOPROLOL TARTRATE, SHORT ACTING, 50 mg tablet Take 50 mg by mouth twice daily. No current facility-administered medications for this visit. ALLERGIES Allergen Reactions - Lipitor [Atorvastat* Myalgia REVIEW OF SYSTEMS GASTROINTESTINAL: SEE ABOVE URINARY: No dark urine or hematuria unless documented above CARDIOVASCULAR: No chest pain NEUROLOG (more content not included)...[facility]11-22-2021 NoteHNO ID: [id number] Author: Hank Brown MD Service: Vascular Surgery Author Type: Physician Type: Progress Notes Filed: 07/24/2021 8:19 AM Note Text: NAME: ANGELES LARIOS CLINIC NO: [id number] DATE OF SERVICE: 07/15/2021 DATE OF : 1960 She has had no new events. She has had no strokes, ministrokes or amaurosis fugax. Her carotid duplex still shows 60-79% on the right and widely patent on the left. Impression/Plan: Otherwise, she is doing well and we will plan on checking her again in one year's time. Hank Brown M.D. SPL/089 Audio #: [id number] Date Dictated: 07/19/2021 12:23:30 Date Typed: 07/23/2021 09:30:40 Date Revised:[facility]11-22-2021 NoteHNO ID: [id number] Author: Hank Brown MD Service: ? Author Type: Physician Type: Progress Notes Filed: 07/15/2021 9:06 AM Note Text: DATE: 02/18/2019.SURGEON: Hank Brown M.D. SURGER: Left carotid endarterectomy with bovine pericardial patch angioplasty and completion intraoperative duplex. ? DATE OF SURGERY: 06/25/2017 SURGEON: Celine Correa MD Acute Meme IIb right lower extremity ischemia. PROCEDURE: Right common femoral embolectomy. Here for f/u of carotid ASO and?Recurrent left internal carotid 90% stenosis. We did a redo left cea after insurance denied a stent in January 2019. She has also had a femoral embolectomy in the past. She remains on anticoagulation due to her prior embolic events. Heart , Vascular and Thoracic [place] DEPARTMENT OF VASCULAR SURGERY OUTPATIENT VISIT DATE July 15, 2021 OUTPATIENT VISIT TYPE ESTABLISHED SERVICE DATE: 07/15/2021 SERVICE TIME: 8:48 AM PRIMARY CARE PHYSICIAN: Martin Gutierrez MD HISTORY OF PRESENT ILLNESS: Ms. Larios is a 61 year old female who presents today for a vascular surgery follow-up visit. PAST MEDICAL HISTORY Diagnosis Date - Acquired hypothyroidism 05/10/2018 On levothyroxine - CAD (coronary artery disease) - Coronary artery disease involving [place] coronary artery of [place] heart without angina pectoris 06/27/2017 ASA, plavix - CVA (cerebral vascular accident) ([facility]) 06/2012 - Embolus of femoral artery ([facility]) 06/25/2017 on right - Episode of recurrent major depressive disorder ([facility]) 05/10/2018 Duloxetine,wellbutrin, varenicline - Essential hypertension 06/27/2017 On metorpolol tartrate, lisinopril, isosorbide mononitrate ER - Fibromyalgia 05/10/2018 - GERD (gastroesophageal reflux disease) 05/10/2018 - HTN (hypertension) - Iron deficiency anemia 2017 - Irritable bowel syndrome with both constipation and diarrhea 05/10/2018 - Mixed hyperlipidemia 06/27/2017 - Murmur - Occlusion and stenosis of carotid artery without mention of cerebral infarction 09/06/2012 - PATRICA (obstructive sleep apnea) 05/10/2018 - PVD (peripheral vascular disease) ([facility]) 05/10/2018 - Snoring PAST SURGICAL HISTORY Procedure Laterality Date - APPENDECTOMY 1998 - COLONOSCOP W/ OR W/O BRSH SPEC 03/10/2021 - EGD W/O OR W/BRUSH/WASH 03/10/2021 - INSERT CATH,ART,PERCUT,SHORTTERM 10/13/2012 RIGHT - PAST SURGICAL HISTORY OF 2008 cardiac stents x 3 placed - PAST SURGICAL HISTORY OF 06/25/2017 Rt PRINTED CIRCUIT BOARDS STRIPPER ETCHER embolectomy - THROMBOENDARTECTMY NECK,NECK INCIS 10/13/2012 LEFT - TUBAL LIGATION HX 1989 SOCIAL HISTORY Social History Tobacco Use - Smoking status: Current Every Day Smoker Packs/day: 0.50 Years: 40.00 Pack years: 20.00 Types: Cigarettes - Smokeless tobacco: Never Used - Tobacco comment: smokes about 4 a day since mother , now on chantix Substance Use Topics - Alcohol use: No Comment: quit 2017 - Drug use: No MEDICATIONS: vit C/E/Zn/coppr/lutein/zeaxan (PRESERVISION AREDS-2 ORAL) Take by mouth twice daily. aspirin, enteric coated (ASPIRIN, ENTERIC COATED) 325 mg EC tablet Take 325 mg by mouth once daily. ferrous sulfate 325 mg (65 mg iron) EC tablet Take 325 mg by mouth twice daily. rosuvastatin (CRESTOR) 40 mg tablet Take 40 mg by mouth once daily. nitroglycerin sublingual (NITROQUICK) 0.4 mg SL tablet Dissolve under the tongue as needed. traZODone (DESYREL) 50 mg tablet Take 50 mg by mouth daily at bedtime. clopidogrel (PLAVIX) 75 mg tablet Take 75 mg by mouth once daily. levothyroxine (SYNTHROID) 25 mcg tablet Take 25 mcg by mouth once daily. lisinopril (ZESTRIL, PRINIVIL) 20 mg tablet Take 20 mg by mouth once daily. METOPROLOL TARTRATE, SHORT ACTING, 50 mg tablet Take 50 mg by mouth twice daily. ALLERGIES: ALLERGIES Allergen Reactions - Lipitor [Atorvastat* Myalgia Diagnostic tests reviewed for today's visit: Most recent imaging ELYSIA 60-79 LICA 40-59% Compared to prior study of 05/28/2020, increase noted in right ICA/CCA ratio from 3.3 to 5.6. This may suggest a greater than 70% stenosis of right internal carotid ?artery. ? RIGHT SIDE ? Common carotid artery: Plaque visualized without evidence of hemodynamically significant stenosis. ? Internal carotid artery: 60-79% stenosis. Findings may be underestimated due to calcified shadowing plaque at origin . ICA/CCA ratio is 5.5, this may suggest a greater than 70% stenosis. ? Vertebral artery: Patent and antegrade flow noted. ? Innominate artery: 50-99% stenosis. ? Subclavian artery: Plaque visualized without evidence of hemodynamically significant stenosis. ? LEFT SIDE ? Common carotid artery: Endarterectomy patch at distal measuring 0.9 cm. Internal carotid artery: Elevated velocities noted but no plaque is visualized; likely normal study. ? External carotid artery: Elevated velocities and plaque noted. ? Vertebral artery: Patent and antegrade flow no (more content not included)... [facility]10-22-2021 NoteHNO ID: [id number] Author: Leonard Urena MD Service: ? Author Type: Physician Type: Progress Notes Filed: 06/14/2021 8:55 AM Note Text: GASTROENTEROLOGY PROGRESS NOTE OUTPATIENT FOLLOW UP HPI: I saw Angeles Larios today for a follow up regarding recent scopes. Angeles Larios was last seen here by me on 04/16/2021. This is a telephone/Virtual Visit being conducted as a result of the COVID-19 pandemic. The patient has consented to this virtual interaction. Had EGD and c-scope 04/2021 Oozing Dieulafoy lesion in D2, treated with bipolar coagulation Duodenal AVM, treated with bipolar coagulation Multiple superficial duodenal ulcers Moderate antral erosions and small hiatal hernia Biopsies taken to rule out H. Pylori and celiac disease. No polyps or cancer within limits of a fair prep Mild sigmoid diverticulosis Grade 1 internal hemorrhoids A. Stomach, biopsy ? No pathologic abnormalities. B. Duodenum, biopsy ? Mild active duodenitis. See comment. C. Colon, random biopsies ? No pathologic abnormalities. Diagnosis Comment Sections of the duodenum revealed benign duodenal mucosa with mildly increased acute and chronic inflammatory cells predominantly within the lamina propria. Histologic features to suggest celiac disease are not present. Her capsule endoscopy was performed 05/06/2021: The capsule remained in the stomach for 4 to 5 hours. It never really entered the small bowel. Small bowel evaluation was not possible. Suggest endoscopy for canceled appointment. The patient is asymptomatic from a GI perspective. No abdominal pain, nausea or vomiting. No dysphagia, odynophagia or GERD. No weight loss. No diarrhea or constipation. No melena or hematochezia. No jaundice, scleral icterus, dark urine or pale stool. She remains on iron supplementation. Seeing Heme, had IV iron about 1 month ago. Also on plavix alone. She takes Pepcid 20mg daily PAST MEDICAL HISTORY Diagnosis Date - Acquired hypothyroidism 05/10/2018 On levothyroxine - CAD (coronary artery disease) - Coronary artery disease involving [place] coronary artery of [place] heart without angina pectoris 06/27/2017 ASA, plavix - CVA (cerebral vascular accident) ([facility]) 06/2012 - Embolus of femoral artery ([facility]) 06/25/2017 on right - Episode of recurrent major depressive disorder ([facility]) 05/10/2018 Duloxetine,wellbutrin, varenicline - Essential hypertension 06/27/2017 On metorpolol tartrate, lisinopril, isosorbide mononitrate ER - Fibromyalgia 05/10/2018 - GERD (gastroesophageal reflux disease) 05/10/2018 - HTN (hypertension) - Iron deficiency anemia 2017 - Irritable bowel syndrome with both constipation and diarrhea 05/10/2018 - Mixed hyperlipidemia 06/27/2017 - Murmur - Occlusion and stenosis of carotid artery without mention of cerebral infarction 09/06/2012 - PATRICA (obstructive sleep apnea) 05/10/2018 - PVD (peripheral vascular disease) ([facility]) 05/10/2018 - Snoring PAST SURGICAL HISTORY Procedure Laterality Date - APPENDECTOMY 1998 - COLONOSCOP W/ OR W/O BRSH SPEC 03/10/2021 - EGD W/O OR W/BRUSH/WASH 03/10/2021 - INSERT CATH,ART,PERCUT,SHORTTERM 10/13/2012 RIGHT - PAST SURGICAL HISTORY OF 2008 cardiac stents x 3 placed - PAST SURGICAL HISTORY OF 06/25/2017 Rt PRINTED CIRCUIT BOARDS STRIPPER ETCHER embolectomy - THROMBOENDARTECTMY NECK,NECK INCIS 10/13/2012 LEFT - TUBAL LIGATION HX 1989 Social History Tobacco Use - Smoking status: Current Every Day Smoker Packs/day: 0.50 Years: 40.00 Pack years: 20.00 Types: Cigarettes - Smokeless tobacco: Never Used - Tobacco comment: smokes about 4 a day since mother , now on chantix Substance Use Topics - Alcohol use: No Comment: quit 2018 - Drug use: No Family history reviewed. No history of IBD, CRC or HPB malignancy. Current Outpatient Medications Medication Sig - vit C/E/Zn/coppr/lutein/zeaxan (PRESERVISION AREDS-2 ORAL) Take by mouth twice daily. - aspirin, enteric coated (ASPIRIN, ENTERIC COATED) 325 mg EC tablet Take 325 mg by mouth once daily. - ferrous sulfate 325 mg (65 mg iron) EC tablet Take 325 mg by mouth twice daily. - rosuvastatin (CRESTOR) 40 mg tablet Take 40 mg by mouth once daily. - nitroglycerin sublingual (NITROQUICK) 0.4 mg SL tablet Dissolve under the tongue as needed. - traZODone (DESYREL) 50 mg tablet Take 50 mg by mouth daily at bedtime. - clopidogrel (PLAVIX) 75 mg tablet Take 75 mg by mouth once daily. - levothyroxine (SYNTHROID) 25 mcg tablet Take 25 mcg by mouth once daily. - lisinopril (ZESTRIL, PRINIVIL) 20 mg tablet Take 20 mg by mouth once daily. - METOPROLOL TARTRATE, SHORT ACTING, 50 mg tablet Take 50 mg by mouth twice daily. No current facility-administered medications for this visit. ALLERGIES Allergen Reactions - Lipitor [Atorvastat* Myalgia REVIEW OF SYSTEMS GASTROINTESTINAL: SEE ABOVE URINARY: No dark ur (more content not included)...[facility]08-24-2021 NoteHNO ID: [id number] Author: Leonard Urena MD Service: ? Author Type: Physician Type: Progress Notes Filed: 04/16/2021 1:52 PM Note Text: GASTROENTEROLOGY CONSULT HPI: Angeles Larios is a 61 year old female who presents for iron deficiency anemia and consideration of capsule endoscopy. This patient was booked with Dr. Barlow today for investigation of iron deficiency anemia with capsule endoscopy. However, as he does not do this procedure, she was booked with me as an urgent add-on. She has been admitted to hospital 3 times for anemia in the last 3-4 years. Hb has dropped to 5 in the past. It was 7 on her last admission in February 2021 She is seeing hematology and has had IV iron in the past. Oral iron supplementation. She has intermittent nausea but no vomiting. She has alternating constipation and diarrhea. Having 1 BM q2-3 days. She is taking a Stimulant laxative but unsure which one, does find it helps. Has chronic formed dark stool from iron. No melena or hematochezia. Never had hematemesis. She has had weight loss of 64lbs over the last [address] abdo 2 weeks ago - normal per pt The patient is asymptomatic from a GI perspective. No abdominal pain, nausea or vomiting. No dysphagia, odynophagia or GERD. No melena or hematochezia. No jaundice, scleral icterus, dark urine or pale stool. 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 Gutierrez. She has a history of anemia and has been on iron supplementation. She has fatigue and intermittent nausea. EGD in 03/10/[address] Charley De La Fuente in [place]: Normal Biopsies were not done Colonoscopy 03/10/[address] Charley De La Fuente: Poor prep but no masses noted No obvious source of GI bleed in the colon Internal hemorrhoids and sigmoid diverticulosis seen. No biopsies taken Current smoker, no alcohol Unemployed No FHx of CRC or IBD PAST MEDICAL HISTORY Diagnosis Date - Acquired hypothyroidism 05/10/2018 On levothyroxine - CAD (coronary artery disease) - Coronary artery disease involving [place] coronary artery of [place] heart without angina pectoris 06/27/2017 ASA, plavix - CVA (cerebral vascular accident) ([facility]) 06/2012 - Embolus of femoral artery ([facility]) 06/25/2017 - Episode of recurrent major depressive disorder ([facility]) 05/10/2018 Duloxetine,wellbutrin, varenicline - Essential hypertension 06/27/2017 On metorpolol tartrate, lisinopril, isosorbide mononitrate ER - Fibromyalgia 05/10/2018 - GERD (gastroesophageal reflux disease) 05/10/2018 - HTN (hypertension) - Iron deficiency anemia 2017 - Irritable bowel syndrome with both constipation and diarrhea 05/10/2018 - Mixed hyperlipidemia 06/27/2017 - Occlusion and stenosis of carotid artery without mention of cerebral infarction 09/06/2012 - PATRICA (obstructive sleep apnea) 05/10/2018 - PVD (peripheral vascular disease) ([facility]) 05/10/2018 - Snoring PAST SURGICAL HISTORY Procedure Laterality Date - APPENDECTOMY 1998 - COLONOSCOP W/ OR W/O BRSH SPEC 03/10/2021 - EGD W/O OR W/BRUSH/WASH 03/10/2021 - INSERT CATH,ART,PERCUT,SHORTTERM 10/13/2012 RIGHT - PAST SURGICAL HISTORY OF 2008 cardiac stents x 3 placed - PAST SURGICAL HISTORY OF 06/25/2017 Rt PRINTED CIRCUIT BOARDS STRIPPER ETCHER embolectomy - THROMBOENDARTECTMY NECK,NECK INCIS 10/13/2012 LEFT - TUBAL LIGATION HX 1989 Current Outpatient Medications Medication Sig - vit C/E/Zn/coppr/lutein/zeaxan (PRESERVISION AREDS-2 ORAL) Take by mouth twice daily. - aspirin, enteric coated (ASPIRIN, ENTERIC COATED) 325 mg EC tablet Take 325 mg by mouth once daily. - ferrous sulfate 325 mg (65 mg iron) EC tablet Take 325 mg by mouth twice daily. - rosuvastatin (CRESTOR) 40 mg tablet Take 40 mg by mouth once daily. - nitroglycerin sublingual (NITROQUICK) 0.4 mg SL tablet Dissolve under the tongue as needed. - traZODone (DESYREL) 50 mg tablet Take 50 mg by mouth daily at bedtime. - clopidogrel (PLAVIX) 75 mg tablet Take 75 mg by mouth once daily. - levothyroxine (SYNTHROID) 25 mcg tablet Take 25 mcg by mouth once daily. - DULoxetine (CYMBALTA) 60 mg capsule Take 60 mg by mouth twice daily. - lisinopril (ZESTRIL, PRINIVIL) 20 mg tablet Take 20 mg by mouth once daily. - METOPROLOL TARTRATE, SHORT ACTING, 50 mg tablet Take 50 mg by mouth twice daily. No current facility-administered medications for this visit. ALLERGIES Allergen Reactions - Lipitor [Atorvastat* Myalgia Family history reviewed. No history of colon cancer or IBD. Social History Tobacco Use - Smoking status: Current Every Day Smoker Packs/day: 0.50 Years: 40.00 Pack years: 20.00 Types: Cigarettes - Smokeless tobacco: Never Used - Tobacco comment: smokes about 4 a day since mother , now on chantix Substance Use Topics - Alcohol use: No Comment: quit 2017 - Drug use: No REVIEW OF SYSTEMS GASTROINTESTINAL: SEE ABOVE URINARY: No dark urine or hematuria unless documented above CARDIOVASCULAR: No chest pain (more content not included)...[facility]08-24-2021 NoteHNO ID: [id number] Author: Bonifacio Copeland MD Service: ? Author Type: Physician Type: Progress Notes Filed: 04/16/2021 11:45 AM Note Text: Angeles Larios is a 61 year old White female who presents with complaints of anemia. Is felt to be iron deficiency. Her hemoglobin did go quite low and she needed several transfusions. Back in February she had an EGD and a colonoscopy which showed no significant findings. She presents for evaluation for capsule endoscopy. She does have a significant history of coronary artery disease having stents placed and peripheral arterial disease and needing a carotid endarterectomy. She is on aspirin and Plavix. PAST MEDICAL HISTORY Diagnosis Date - Acquired hypothyroidism 05/10/2018 On levothyroxine - CAD (coronary artery disease) - Coronary artery disease involving [place] coronary artery of [place] heart without angina pectoris 06/27/2017 ASA, plavix - CVA (cerebral vascular accident) ([facility]) 06/2012 - Embolus of femoral artery ([facility]) 06/25/2017 - Episode of recurrent major depressive disorder ([facility]) 05/10/2018 Duloxetine,wellbutrin, varenicline - Essential hypertension 06/27/2017 On metorpolol tartrate, lisinopril, isosorbide mononitrate ER - Fibromyalgia 05/10/2018 - GERD (gastroesophageal reflux disease) 05/10/2018 - HTN (hypertension) - Iron deficiency anemia 2017 - Irritable bowel syndrome with both constipation and diarrhea 05/10/2018 - Mixed hyperlipidemia 06/27/2017 - Occlusion and stenosis of carotid artery without mention of cerebral infarction 09/06/2012 - PATRICA (obstructive sleep apnea) 05/10/2018 - PVD (peripheral vascular disease) ([facility]) 05/10/2018 - Snoring PAST SURGICAL HISTORY Procedure Laterality Date - APPENDECTOMY 1998 - COLONOSCOP W/ OR W/O BRSH SPEC 03/10/2021 - EGD W/O OR W/BRUSH/WASH 03/10/2021 - INSERT CATH,ART,PERCUT,SHORTTERM 10/13/2012 RIGHT - PAST SURGICAL HISTORY OF 2008 cardiac stents x 3 placed - PAST SURGICAL HISTORY OF 06/25/2017 Rt PRINTED CIRCUIT BOARDS STRIPPER ETCHER embolectomy - THROMBOENDARTECTMY NECK,NECK INCIS 10/13/2012 LEFT - TUBAL LIGATION HX 1989 Social History Tobacco Use - Smoking status: Current Every Day Smoker Packs/day: 0.50 Years: 40.00 Pack years: 20.00 Types: Cigarettes - Smokeless tobacco: Never Used - Tobacco comment: smokes about 4 a day since mother , now on chantix Substance Use Topics - Alcohol use: No Comment: quit 2018 - Drug use: No FAMILY HISTORY Problem Relation Age of Onset - Coronary Artery Disease Father - Heart Father - Hypertension Father - Coronary Artery Disease Brother - Coronary Artery Disease Paternal Grandfather - Heart Paternal Grandfather - Diabetes Mother - Hypertension Mother - Diabetes Brother - Heart Brother - Heart Maternal Uncle - Heart Paternal Aunt - Hypertension Brother ALLERGIES Allergen Reactions - Lipitor [Atorvastat* Myalgia Current Outpatient Medications Medication Sig - vit C/E/Zn/coppr/lutein/zeaxan (PRESERVISION AREDS-2 ORAL) Take by mouth twice daily. - aspirin, enteric coated (ASPIRIN, ENTERIC COATED) 325 mg EC tablet Take 325 mg by mouth once daily. - ferrous sulfate 325 mg (65 mg iron) EC tablet Take 325 mg by mouth twice daily. - rosuvastatin (CRESTOR) 40 mg tablet Take 40 mg by mouth once daily. - nitroglycerin sublingual (NITROQUICK) 0.4 mg SL tablet Dissolve under the tongue as needed. - traZODone (DESYREL) 50 mg tablet Take 50 mg by mouth daily at bedtime. - clopidogrel (PLAVIX) 75 mg tablet Take 75 mg by mouth once daily. - levothyroxine (SYNTHROID) 25 mcg tablet Take 25 mcg by mouth once daily. - lisinopril (ZESTRIL, PRINIVIL) 20 mg tablet Take 20 mg by mouth once daily. - METOPROLOL TARTRATE, SHORT ACTING, 50 mg tablet Take 50 mg by mouth twice daily. - DULoxetine (CYMBALTA) 60 mg capsule Take 60 mg by mouth twice daily. No current facility-administered medications for this visit. REVIEW OF SYSTEMS PAIN ASSESSMENT: Negative for pain, history of chronic pain, or current treatment for a chronic pain condition. GENERAL: No weight loss, malaise or fevers NECK: Negative for lumps, goiter, pain and significant neck swelling RESPIRATORY: Negative for cough, hemoptysis, wheezing, COPD, dyspnea or shortness of breath CARDIOVASCULAR: Negative for chest pain, leg swelling, hypertension, CHF or palpitations GI: See HPI : No history of dysuria, frequency or incontinence MUSCULOSKELETAL: Negative for joint pain or swelling, back pain or muscle pain HEMATOLOGY/LYMPHOLOGY: Negative for prolonged bleeding, bruising easily or swollen nodes ENDOCRINE: Negative for cold or heat intolerance, polyuria, polydipsia and goiter PHYSICAL EXAM: BP 115/63 Pulse 68 Resp 18 Ht 5' 6 (1.68m) Wt 217 lb (98.4kg) BMI 35.04 kg/(m2). General Appearance: Well appearing, alert, in no acute distress, well-hydrated, well nourished. and Overweight. Eyes: Normal sclera Assess (more content not included)...[facility]05-25-2017 Fall risk [id number] Work Phone: Evaluation note* Diagnosis Onset Date Resolution Status Iron deficiency anemia due to chronic blood loss chronic Macrocytosis chronic Iron deficiency anemia due to chronic blood loss chronic Macrocytosis [facility] Work Phone: Evaluation note* Diagnosis Onset Date Resolution Status Iron deficiency anemia due to chronic blood loss chronic Macrocytosis [facility] Work Phone: Evaluation note* Diagnosis Onset Date Resolution Status Iron deficiency anemia due to chronic blood loss chronic Macrocytosis chronic BMI 32.0-32.9,adult acute Sleep apnea acute Unintentional weight loss [facility] Nicotine dependence chronic [facility] Work Phone: Evaluation noteNo assessment information available [facility] Work Phone: Evaluation note* Diagnosis Onset Date Resolution Status Admit Date Iron deficiency anemia due t o chronic blood loss chronic April 2:38pm Macrocytosis chronic April 2:38pm Chronic GI bleeding chronic Septe [id number] 2:45pm Iron deficiency anemia deleted Se [id number] 2:45pm [facility] Work Phone: Instructions* Name Dates Details How to access [facility] Indication:Abnormal glucose tolerance test Start:30-Aug-2015 Instruction Type:Patient Education How to access H-art ([facility]) online - Detail Indication:Abnormal glucose tolerance test Start:30-Aug-2015 Instruction Type:Patient Education Patient Instructions Indication:Abnormal glucose tolerance test Start:30-Aug-2015 Instruction Type:Provider Instructions for Treatment How to access health informa tion online Indication:Abnormal glucose tolerance test Start:29-Jan-2015 Instruction Type:Patient Education How to access health informa tion online - Detail Indication:Abnormal glucose tolerance test Start:29-Jan-2015 Instruction Type:Patient Education Patient Instructions Indication:Abnormal glucose tolerance test Start:29-Jan-2015 Instruction Type:Provider Instructions for Treatment How to access health informa tion online Indication:Fatty liver Start:29-Jan-2015 Instruction Type:Patient Education How to access health informa tion online - Detail Indication:Fatty liver Start:29-Jan-2015 Instruction Type:Patient Education Patient Instructions Indication:Fatty liver Start:29-Jan-2015 Instruction Type:Provider Instructions for Treatment Patient Instructions Indication:Vitamin D deficiency, unspecified Start:11-Oct-2014 Instruction Type:Provider Instructions for Treatment Patient Instructions Indication:Cough Start:28-Oct-2013 Instruction Type:Provider Instructions for Treatment Patient Instructions Indication:Abnormal glucose tolerance test Start:28-Jul-2012 Instruction Type:Provider Instructions for Treatment [facility] Work Phone: reason for referral (narrative)No reason for referral [facility] Work Phone: Summary Purpose Family History No Family History Records Found Relationship Condition Age at Onset Recorded Date/T rose father Myocardial infarction Unknown Unknown mother Atrial fibrillation Unknown Hypertension Unknown Hyperlipidemia Unknown Diabetes mellitus Unknown brother Coronary artery disease Unknown Myocardial infarction Unknown sister Unknown Advance Directives No Advanced Directives Records Found Advance Directive Response Recorded Date/ Time Advance Directives on File No February 25, 2019 1:43pm Advance Directives No December 12 11:01am Living Will Yes March 09, 2021 12:10am Power of Rim Fire Priming Operator Yes March 09 12:10am Advance Directive Response Recorded Date/ Time Advance Directives No December 12 10:01am Living Will Yes March 08, 2021 11:10pm Power of [employer] Priming Operator Yes March 08 11:10pm Advance Directive Response Recorded Date/ Time Advance Directives on File No February 25, 2019 1:43pm Living Will No February 25, 2019 1 :43pm Do you have a Healthcare Power of [employer] Priming Operator? No February 25, 2019 1:43pm Living Will Yes September 26 9:40pm Do you have a Healthcare Power of [employer] Priming Operator? Yes September 26, 2024 9:40pm Name of Medical Power of Rim Fire Priming Operator - DORI September 26, 2024 9:40pm Advance Directives No December 12 020 11:01am Advance Directive Response Recorded Date/ Time Advance Directives on File No February 25, 2019 1:43pm Living Will No February 25, 2019 1 :43pm Do you have a Healthcare Power of Rim [employer] Priming Operator? No February 25, 2019 1:43pm Advance Directives No December 12 020 11:01am Chief Complaint and Reason for Visit Chief Complaint AVD 2MO LABS F/U AFTER VENOFER - LABS labs Reason for Visit Iron deficiency anem ia due to chronic blood loss Macrocytosis Iron deficiency anemia due to chronic blood loss Macrocytosis Chief Complaint 2MO LABS F/U AFTER VENOFER - LABS labs Enlarged lymph nodes, unspecified Reason for Visit Iron deficiency anem ia due to chronic blood loss Macrocytosis Iron deficiency anemia due to chronic blood loss Macrocytosis Chief Complaint labs 3 MO - LABS SCREENING Reason for Visit Iron deficiency anem ia due to chronic blood loss Macrocytosis Chief Complaint 6 MO - LABS labs sleep apena Reason for Visit Iron deficiency anem ia due to chronic blood loss Macrocytosis BMI 32.0-32.9,adult Sleep apnea Unintentional weight loss Nicotine dependence Chief Complaint F/U LABS labs SCREENING Reason for Visit Iron deficiency anem ia due to chronic blood loss Macrocytosis Chief Complaint F/U LABS labs SCREENING CHILLS WITHOUT FEVER Reason for Visit Iron deficiency anem ia due to chronic blood loss Macrocytosis Chief Complaint SCREENING CHILLS WITHOUT FEVER Chief Complaint 6 MO - LABS labs Reason for Visit Iron deficiency anem ia due to chronic blood loss Macrocytosis Chief Complaint Admit Date HYPOXIA INFLUENZA A September 26, 2024 7 :26pm HYPOXIA INFLUENZA A September 27, 2024 8 :57am HYPOXIA INFLUENZA A September 28, 2024 9 :54am 6 MO, LABS October 04, 2024 10:07am labs October 04, 2024 10:15am BACK AND LEG PAIN. RX HERE November 14, 2 025 12:21pm Reason for Visit Admit Date Hypoxia September 26, 2024 7 :26pm Influenza A September 26, 2024 7 :26pm Iron deficiency anemia due to chronic bl ood loss October 04, 2024 10:07am Macrocytosis October 04, 2024 10:07am Chronic GI bleeding October 04, 2024 10:15am Iron deficiency anemia October 04 10:15am Chief Complaint Admit Date 6 MO - LABS May 01, 2025 2:38pm labs May 01, 2025 2:45pm Reason for Visit Admit Date Iron deficiency anemia due to chronic bl ood loss May 01, 2025 2:38pm Macrocytosis May 01, 2025 2:38pm Chronic GI bleeding May 01, 2025 2:45pm Iron deficiency anemia May 01 2:45pm Additional Source Comments INFORMATION SOURCE (unrecogn ized section and content) DATE CREATED AUTHOR 02/16/2018 [facility] DATE CREATED AUTHOR AUTHOR'S ORGANIZ ATION 09/16/2020 [facility] DATE CREATED AUTHOR AUTHOR'S ORGANIZ ATION 10/06/2021 [facility] DATE CREATED AUTHOR AUTHOR'S ORGANIZ ATION 01/25/2022 [place] DATE CREATED AUTHOR AUTHOR'S ORGANIZ ATION 05/07/2025 [facility] Goals (unrecognized section and content) Goals may be documented in a n alternate sectionGoals may be documented in an alternate sectionGoals may be documented in an alternate sectionGoals may be documented in an alternate sectionGoals may be documented in an alternate sectionGoals may be documented in an alternate sectionGoals may be documented in an alternate sectionGoals may be documented in an alternate sectionGoals may be documented in an alternate sectionGoals may be documented in an alternate sectionGoals may be documented in an alternate sectionGoals may be documented in an alternate section Care Teams (unrecognized sec tion and content) Team Status: Active Member Role Status Dates Dr. Martin Gutierrez MD Family Provider Active Dr. Martin Gutierrez MD Primary Care Provider Active Team Status: Inactive Member Role Status Dates Dr. Martin Gutierrez MD Primary Care Provider, Referring Provider Active Dr. Simon Ulloa MD Attending Provider Active Team Status: Inactive Member Role Status Dates Dr. Martin Gutierrez MD Primary Care Provider, Referring Provider Active Ifrah Sommer NP, AUTOMOTIVE [employer]ICAL ENGINEER-C Attending Provider Active Team Status: Active Member Role Status Dates Dr. Martin Gutierrez MD Primary Care Provrosemary karli, Family Provider, Referring Provider Active Dr. Simon Ulloa MD Attending Provider Active Team Status: Inactive Member Role Status Dates Dr. Martin Gutierrez MD Primary Care Provider, Attending Provider Active Team Status: Inactive Member Role Status Dates Dr. Martin Gutierrez MD Primary Care Provi karli, Attending Provider, Referring Provider Active Team Status: Inactive Member Role Status Dates Dr. Martin Gutierrez MD Primary Care Provider Active Dr. Simon Ulloa MD Attending Provider, Referrin g Provider Active Team Status: Active Member Role Status Dates Dr. Martin Gutierrez MD Primary Care Provider Active Team Status: Inactive Member Role Status Dates Dr. Martin Gutierrez MD Primary Care Provider Active Start: September 26, 2024 End: September 28, 2024 Dr. Rafita Ruiz DO Emergency Provider Active Start: September 26, 2024 End: September 28, 2024 Dr. Esperanza Myers MD Admit Provider Active St art: September 26, 2024 End: September 28, 2024 Dr. Esperanza Myers MD Referring Provider Active Start: September 26, 2024 End: September 28, 2024 Dr. Esperanza Myers MD Other Provider Active St art: September 26, 2024 End: September 28, 2024 Dr. Scott Mcneal MD Attending Provider Active Start: September 26, 2024 End: September 28, 2024 Team Status: Active Member Role Status Dates Dr. Martin Gutierrez MD Primary Care Provider Active Start: September 27, 2024 Dr. Rafita Ruiz DO Emergency Provider Active Start: September 27, 2024 Dr. Esperanza Myers MD Admit Provider Active St art: September 27, 2024 Dr. Esperanza Myers MD Other Provider Active St art: September 27, 2024 Dr. Scott Mcneal MD Attending Provider Active Start: September 27, 2024 Dr. Scott Mcneal MD Other Provider Active Star t: September 27, 2024 Team Status: Active Member Role Status Dates Dr. Martin Gutierrez MD Primary Care Provider Active Start: September 28, 2024 Dr. Rafita Ruiz DO Emergency Provider Active Start: September 28, 2024 Dr. Esperanza Myers MD Admit Provider Active St art: September 28, 2024 Dr. Esperanza Myers MD Other Provider Active St art: September 28, 2024 Dr. Scott Mcneal MD Attending Provider Active Start: September 28, 2024 Dr. Scott Mcneal MD Other Provider Active Star t: September 28, 2024 Team Status: Inactive Member Role Status Dates Dr. Martin Gutierrez MD Primary Care Provider Active Start: October 04, 2024 End: October 04, 2024 Dr. Martin Gutierrez MD Referring Provider Active Start: October 04, 2024 End: October 04, 2024 Dr. Simon Ulloa MD Attending Provider Active Start: October 04, 2024 End: October 04, 2024 Team Status: Active Member Role Status Dates Dr. Martin Gutierrez MD Primary Care Provider Active Start: October 04, 2024 Dr. Martin Gutierrez MD Family Provider Active Sta rt: October 04, 2024 Dr. Martin Gutierrez MD Referring Provider Active Start: October 04, 2024 Dr. Simon Ulloa MD Attending Provider Active Start: October 04, 2024 Team Status: Inactive Member Role Status Dates Dr. Martin Gutierrez MD Primary Care Provider Active Start: October 05, 2024 End: October 05, 2024 Dr. Martin Gutierrez MD Attending Provider Active Start: October 05, 2024 End: October 05, 2024 Dr. Martin Gutierrez MD Referring Provider Active Start: October 05, 2024 End: October 05, 2024 Team Status: Inactive Member Role Status Dates Dr. Martin Gutierrez MD Primary Care Provider Active Start: November 14, 2024 End: November 14, 2024 Dr. Armando Ga MD Attending Provider Active Start: November 14, 2024 End: November 14, 2024 Dr. Armando Ga MD Referring Provider Active Start: November 14, 2024 End: November 14, 2024 Team Status: Inactive Member Role Status Dates Dr. Martin Gutierrez MD Primary Care Provider Active Start: December 22, 2024 End: December 22, 2024 Dr. Martin Gutierrez MD Attending Provider Active Start: December 22, 2024 End: December 22, 2024 Dr. Martin Gutierrez MD Referring Provider Active Start: December 22, 2024 End: December 22, 2024 Team Status: Active Member Role/Relationship Status Dates Dr. Martin Gutierrez MD Primary Care Provider Active Team Status: Inactive Member Role/Relationship Status Dates Dr. Martin Gutierrez MD Primary Care Provider Active Start: May 01, 2025 End: May 01, 2025 Dr. Martin Gutierrez MD Referring Provider Active Start: May 01, 2025 End: May 01, 2025 Dr. Simon Ulloa MD Attending Provider Active Start: May 01, 2025 End: May 01, 2025 Team Status: Active Member Role/Relationship Status Dates Dr. Martin Gutierrez MD Primary Care Provider Active Start: May 01, 2025 Dr. Martin Gutierrez MD Family Provider Active Sta rt: May 01, 2025 Dr. Martin Gutierrez MD Referring Provider Active Start: May 01, 2025 Dr. Simon Ulloa MD Attending Provider Active Start: May 01, 2025 FOR RECORDS PERTAINING TO PATIENTS WHO ARE OR HAVE BEEN ENROLLED IN A CHEMICAL DEPENDENCY/SUBSTANCEABUSE PROGRAM, SOME INFORMATION MAY BE OMITTED. This clinical summary was aggregated from multiple sources. Caution should be exercised in using it in the provision of clinical care. This summary normalizes information from multiple sources, and as a consequence, information in this document may materially change the coding, format and clinical context of patient data. In addition, data may be omitted in some cases. CLINICAL DECISIONS SHOULD BE BASED ON THE PRIMARY CLINICAL RECORDS. [employer] provides no warranty or guarantee of the accuracy or completeness of information in this document.
== END | disposition home or self-care (01) ==
LOC: POLAB3 15:39
PROVIDERS: PCP Family Medicine Geriatric Medicine; Visit Provider Family Medicine Geriatric Medicine
DX: I11.0 Hypertensive heart disease with heart failure (principal); I50.9 Heart failure, unspecified; R06.02 Shortness of breath; J20.9 Acute bronchitis, unspecified
CPT/HCPCS: 36415; 80048; 83880; 85025; 85379; 87631

== ENCOUNTER → 2025-05-25 | Outpatient (CLI) | payer MEDICARE, SELFPAY ==
--- NOTE | 2025-05-25 15:54 | VDLE_ITS ---
Reason For Study Reason For Study: SWELLING RIGHT LEFT GSV is normal. GSV is normal. CFV is compressible, spontaneous, phasic, competent CFV is compressible, spontaneous, phasic, competent, and demonstrates normal augmentation. and demonstrates normal augmentation. FV is compressible, spontaneous, phasic, competent FV is compressible, spontaneous, phasic, competent and and demonstrates normal augmentation. demonstrates normal augmentation. POP V is compressible, spontaneous, phasic, competent POP V is compressible, spontaneous, phasic, competent and demonstrates normal augmentation. and demonstrates normal augmentation. T/P Trunk is compressible. T/P Trunk is compressible. PTV is compressible. LT PerV is compressible. RT PerV is compressible. Acute deep vein thrombosis is noted in the PTV. It is Procedure dilated and NONCOMPRESSIBLE. This is a venous duplex using B-mode, color flow and spectral Doppler. Exam performed in department. The study was technically difficult. A preliminary report was called and/or faxed to Dr. Gutierrez's office @ 4:15 pm. VL/Venous Duplex US - Bobby Extrem Interpretation Summary Acute deep vein thrombosis is noted in the left posterior tibial vein. The david perfecto of the left lower extremity deep venous system is patent and compressible. Deep veins of the right lower extremi ty are patent and compressible segmentally. There is no evidence of right lower extremity deep vein thrombosis . Valvular competence appears intact within the proximal deep venous systems bilaterally. The great saphenous veins appear bilaterally patent and compressible segmentally. Ordering Physician: Martin Gutierrez Chi Referring Physician: Martin Gutierrez Chi Performed By: Khloe Andrew, PATRICE, RVT
--- NOTE | 2025-05-25 16:20 | RAD_ITS ---
PROCEDURE: CHEST PA AND LATERAL 05/25/2025 REASON FOR EXAM: CONGESTION TECHNIQUE: Procedure Code: RADCXR Modality: DX Procedure: CHEST PA AND LATERAL COMPARISON: Two-view chest, 09/26/2024. FINDINGS: There is mild basilar predominant interstitial thickening not significantly changed. There is no lobar consolidation or pleural effusion. There is mild cardiomegaly. There is calcific vascular disease of the thoracic aorta. The upper abdominal bowel gas pattern is normal. There is multilevel degenerative disc disease of the thoracic spine. RAD/Chest PA and Lateral IMPRESSION: Mild basilar predominant chronic interstitial lung disease. Other findings as noted. Reading Location: [place] [id number]
--- OUTSIDE RECORDS SUMMARY | 2025-05-26 00:50 | XMS RPT_ITS | CCD ---
Author Organization [facility] Care Team Providers Care Cloth Examiner Name Role Phone Manda, RN, Mena Taylor Unavailable Unavailabl e MIGUEL, CELINE Unavailable Unavailable MIGUEL, CELINE Unavailable Unavailable AMI ROSENK A Unavailable Unavailable NELY CALZADA Unavailable Unavailable ISMAELCLIFTON BROWN Unavailable Unavailable MATT MARTIN-CHI Unavailable Unavailable MIGUEL, CELINE Unavailable Unavailable PROVIDER, UNKNOWN Attending Unavailable PROVIDER, UNKNOWN Admitting Unavailable Ismael DO Nerissa Unavailable AttReginald palumboa Unavailable [facility] OFFICE, Senait Chau Unavailable Grace RN, Janay Unavailable Unavailable Nano Joe Unavailable Unavailable Unavailable Unavailable Tali Parikh Unavailable [phone] Leslye HAUSER, Ritu A Unavailable Unavailable Janene Vallecillo Unavailable Leslye HAUSER, Ritu A Unavailable Unavailable Janene Vallecillo Unavailable MURTAZA Holman, Mena Taylor Unavailable Unavailabl e G Nurse [...] Provider Isckar, Dr. Montes Attending Provider Sommer HONING MACHINE OPERATOR SEMIAUTOMATIC, HONING MACHINE OPERATOR SEMIAUTOMATIC-C Ifrah Attending Provider Matt, Dr. Martin Perdue [...] Unavailable Matt, Martin Chi Referring Unavailable Gino HONING MACHINE OPERATOR SEMIAUTOMATIC, Margi Attending Unavailable Matt, Martin Chi Primary Care Unavailable Gino HONING MACHINE OPERATOR SEMIAUTOMATIC, Margi Referring Unavailable Matt, Martin Chi Primary [...] Matt, Martin Chi Primary Care Unavailable Gino HONING MACHINE OPERATOR SEMIAUTOMATIC, Margi Attending Unavailable Matt, Martin Chi Attending [...] Matt, Martin Chi Primary Care Unavailable Gino HONING MACHINE OPERATOR SEMIAUTOMATIC, Margi Attending Unavailable Gino HONING MACHINE OPERATOR SEMIAUTOMATIC, Margi Referring Unavailable Matt, Martin Chi Primary [...] Drug Allergy 12-10-19 13 Severe muscle aches [facility] Work Phone: (20 sources) codeine; Translations: [CODEINE] Drug Allergy 01-10-20 11 GI upset, Other [facility] Work Phone: Comment on above: PT REPORTS GOING TO SLEEP AND HAS HARD TIME WAKING UP (20 sources) Hmg-Coa Reductase Inhibitors (Statins); Translations: [STATINS] allergy to substance 06-08-20 13 mylagias [facility] Work Phone: (2 sources) buPROPion; Translations: [BUPROPION HCL] Drug Allergy 09-08-[address] [facility] Repository (1 source) Hmg-Coa Reductase Inhibitors (Statins); Translations: [DRVTSPN-LAG-BCL REDUCTASE INHIBITORS] Propensity to adverse reactions (disorder) [facility] Rep[facility] (1 source) Opioid Agonists; Translations: [OPIOID ANALGESICS] Propensity to adverse reactions to drug (disorder) 09-08-19 06 [facility] [employer] (13 sources) atorvastatin Drug Allergy 11-07-19 22 Other [facility] Comment on above: unable to walk (1 source) atorvastatin Drug Allergy 05-01-20 [facility] Medications Current Medications Medication Drug Class(es) Dates Sig (Normalized) Sig (Original) acetaminophen 500 mg oral tablet (13 sources) Start: 03-09-2021 take 2 tablets by mouth every six hours as needed for headache Acetaminophen (Tylenol Extra Strength) 500 mg Tablet Active 1000 mg PO EVERY 6 HOURS as needed for Headache March 09, 2021 12:00am [id number] 200 actuat albuterol 0.09 mg/actuat metered dose [...] TABS One tablet by mouth daily ASPIRIN [id number] Eliane Rodrigez PA-C End: 09-16-2010 take 1 tablet [...] Start: 01-09-2011 take 1 capsule by mo [facility] twice daily CYMBALTA, 30MG (Oral Capsule Delayed Release Particles) [address] Part bid for 30 days Quantity: 60 {Capsule} Refills: 4 Ordered: 23-Jan-2016 Nerissa Rodriguez DO, DO, Kathleen Start : 23-Jan-2016 Active Start: 01-09-2011 [facility] CY[facility]ALTA 60 MG CPEP One tablet by mouth twice daily DULOXETINE HCL [id number] Efrain Samuel MD famotidine 40 mg oral [...] One tablet by mouth daily LEVOTHYROXINE SODIUM [id number] Efrain Samuel MD nitroglycerin 0.4 mg sublingual [...] 5 min up to 3 X NITROGLYCERIN [id number] Efrain Samuel MD Start: 01-09-2011 NITROGLYCERIN 0.4 MG SUBL 1 tablet under the tongue every 5 minutes times 3 as needed for chest pain. NITROGLYCERIN [id number] Anaya Everett HONING MACHINE OPERATOR SEMIAUTOMATIC rosuvastatin calcium 40 mg oral tablet (20 [...] 2017 1:00am November 13, 2017 10:09am Vitamins A,C,Y-Rmda-Ypqjrm (Preservision Areds) 4,296 mcg-226 mg-90 mg capsule [...] Comments: thirty Comment on above: twentycalled to [facility] art thirty acetic acid 20 mg/ml [...] One tablet by mouth twice daily APIXABAN [id number] Mena Holman RN atorvastatin 40 mg oral tablet (20 sources) HMG-CoA Reductase Inhibitor Start: 07-15-2016 End: 01-15-2017 take 1 tablet by mouth once daily ATORVASTATIN CALCIUM 40 MG TABS One tablet by mouth daily ATORVASTATIN CALCIUM [id number] Anaya E Karlos WING Start: 05-05-2012 End: 12-09-2012 take 1 tablet by mouth once daily LIPITOR 80 MG TABS One tablet by mouth daily ATORVASTATIN CALCIUM [id number] Efrain Samuel MD Start: 04-26-2009 End: 09-16-2010 [...] : 12-Dec-2008 Inactive Dextromethorphan (1 source) Uncompetitive P-ldghpk-U-aspartat e Receptor Antagonist, Sigma-1 Agonist Start: 10-28-2013 [...] 1 capsule by mouth every week ERGOCALCIFEROL, [id number] (Oral Capsule) 2 (two) Capsule weekly x4 [...] October 14, 2017 10:41am lactobacillus rhamnosus gg [id number] unt oral capsule (1 source) Start: 11-21-2011 [...] TABS One tablet by mouth daily LISINOPRIL [id number] Eliane Rodrigez PA-C Start: 01-09-2011 take 1 tablet by lucia th once daily LISINOPRIL 5 MG TABS One tablet by mouth daily LISINOPRIL [id number] Efrain Samuel MD LORazepam 1 mg oral [...] daily METFORMIN HCL ER (OSM) 500 MG [id number] One tablet by mouth daily METFORMIN HCL [id number] Efrain Samuel MD metoprolol tartrate 50 mg [...] take ASA 30 mins before NIACIN (ANTIHYPERLIPIDEMIC) [id number] Tracy Valencia Start: 01-09-2011 End: 11-04-2011 take 1 tablet by mouth at bedtime NIASPAN 500 MG CR-TABS One tablet by mouth at bedtime, take ASA 30 mins before NIACIN (ANTIHYPERLIPIDEMIC) [id number] Tracy Valencia omeprazole 40 mg delayed release [...] CPDR One tablet by mouth daily OMEPRAZOLE [id number] Efrain Samuel MD phenazopyridine hydrochlorid e 100 [...] mouth twice daily RED YEAST RICE EXTRACT [id number] Eliane Rodrigez PA-C simvastatin 40 mg oral tablet (20 sources) HMG-CoA Reductase Inhibitor Start: 12-09-2012 End: 06-08-2013 take 1 tablet by mouth once daily SIMVASTATIN 40 MG TABS One tablet by mouth daily SIMVASTATIN 58573717955 Efrain Samuel MD Start: 01-09-2011 End: 07-01-2012 [...] Two tablets by mouth daily VARENICLINE TARTRATE [id number] Anaya Everett HONING MACHINE OPERATOR SEMIAUTOMATIC vitamin b12 1 mg/ml injectable solution (1 [...] (20 sources) Start: 12-11-2015 End: 07-15-2016 take 99454 [IU] by mouth once daily VITAMIN D 1000 UNIT TABS 10,000 IU per day (OTC), One tablet by mouth daily CHOLECALCIFEROL [id number] Anaya Everett NP Start: 12-11-2015 take 1 tablet by lucia th once daily VITAMIN D 1000 UNIT TABS 10,000 IU per day (OTC), One tablet by mouth daily CHOLECALCIFEROL [id number] Efrain Samuel MD Start: 12-11-2015 End: 07-15-2016 take 1 tablet by mouth once daily VITAMIN D 1000 UNIT TABS 10,000 IU per day (OTC), One tablet by mouth daily CHOLECALCIFEROL [id number] Anaya Everett NP Start: 12-11-2015 take 1 tablet by lucia th once daily VITAMIN D 1000 UNIT TABS 10,000 IU per day (OTC), One tablet by mouth daily CHOLECALCIFEROL [id number] Efrain Samuel MD Start: 12-11-2015 End: 07-15-2016 take 1 tablet by mouth once daily VITAMIN D 1000 UNIT TABS 10,000 IU per day (OTC), One tablet by mouth daily CHOLECALCIFEROL [id number] Anaya Everett NP warfarin sodium 5 mg [...] (Unsp spec) [#/Vol] 0.67 10*3/uL Low 0.83-4.51 [facility] Absolute neutrophil countOrd ered By: Simon Ulloa on 05-01-2025 Neutrophils (Bld) [#/Vol] 3.7 10*3/uL 2.0-7.7 [facility] Automated lymphocyte count a s percentage of total leukocytesOrdered By: Simon Garnerarron on 05-01-2025 Lymphocytes/100 WBC Auto (Unsp spec) 12.9 % Low 19-41 [facility] Basophil percentageOrdered B y: Simon Garnerarron on 05-01-2025 Basophils/100 WBC (Bld) 0.8 % 0-1 [facility] CBC W/Diff, Automatedon Absolute Lymph 0.67 X10 3/uL Low 0.83-4.51 [facility] Comment on above: Performed By: #### L 501.2300, L500.2500, L501.5200, L100.0100 #### [facility] [address] [place], [address] Absolute Neut 3.7 X10 3/uL Normal 2.0-7.7 [facility] Comment on above: Performed By: #### L 501.2300, L500.2500, L501.5200, L100.0100 #### [facility] [address] [place], [address] Basophils/100 WBC (Bld) 0.8 % Normal 0-1 [facility] Comment on above: Performed By: #### L 501.2300, L500.2500, L501.5200, L100.0100 #### [facility] [address] [place], [address] Eosinophils/100 WBC (Bld) 0.6 % Normal 0-5 [facility] Comment on above: Performed By: #### L 501.2300, L500.2500, L501.5200, L100.0100 #### [facility] [address] [place], [address] Erythrocyte distribution width (RBC) [Ratio] 14.0 % Normal 11.6-14.6 [facility] Comment on above: Performed By: #### L 501.2300, L500.2500, L501.5200, L100.0100 #### [facility] [address] [place], [address] Hematocrit (Bld) [Volume fraction] 34.6 % Low 37-47 [facility] Comment on above: Performed By: #### L 501.2300, L500.2500, L501.5200, L100.0100 #### [facility] [address] [place], [address] Hemoglobin (Bld) [Mass/Vol] 11.1 g/dL Low 12.0-15.0 [facility] Comment on above: Performed By: #### L 501.2300, L500.2500, L501.5200, L100.0100 #### [facility] [address] [place], [address] IG% 0.400 Normal 0.0-0.9 [facility] Comment on above: Result Comment: IG% - Immature Granulocytes (promyelocytes, myelocytes and metamyelocytes) > 1% indicates that a LEFT SHIFT is Present. Performed By: #### L 501.2300, L500.2500, L501.5200, L100.0100 #### [facility] [address] [place], [address] Lymphocytes/100 WBC (Bld) 12.9 % Low 19-41 [facility] Comment on above: Performed By: #### L 501.2300, L500.2500, L501.5200, L100.0100 #### [facility] [address] [place], [address] MCH (RBC) [Entitic mass] 34.8 pg High 27.0-32.0 [facility] Comment on above: Performed By: #### L 501.2300, L500.2500, L501.5200, L100.0100 #### [facility] [address] [place], [address] MCHC (RBC) [Mass/Vol] 32.1 g/dL Normal 32-36 [facility] Comment on above: Performed By: #### L 501.2300, L500.2500, L501.5200, L100.0100 #### [facility] [address] [place], [address] MCV (RBC) [Entitic vol] 108.5 fL High 81-99 [facility] Comment on above: Performed By: #### L 501.2300, L500.2500, L501.5200, L100.0100 #### [facility] [address] [place], [address] Monocytes/100 WBC (Bld) 13.9 % High 0-10 [facility] Comment on above: Performed By: #### L 501.2300, L500.2500, L501.5200, L100.0100 #### [facility] [address] [place], [address] Neutrophils/100 WBC (Bld) 71.4 % High 47-70 [facility] Comment on above: Performed By: #### L 501.2300, L500.2500, L501.5200, L100.0100 #### [facility] [address] [place], [address] Nucleated RBC (Bld) [#/Vol] 0 10*3/uL Normal 0-5 [facility] Comment on above: Performed By: #### L 501.2300, L500.2500, L501.5200, L100.0100 #### [facility] [address] [place], [address] Platelet mean volume (Bld) [Entitic vol] 9.7 fL Normal 6.2-12.0 [facility] Comment on above: Performed By: #### L 501.2300, L500.2500, L501.5200, L100.0100 #### [facility] [address] [place], [address] Platelets (Bld) [#/Vol] 238 10*3/uL Normal 150-450 [facility] Comment on above: Performed By: #### L 501.2300, L500.2500, L501.5200, L100.0100 #### [facility] [address] [place], [address] RBC (Bld) [#/Vol] 3.19 10*6/uL Low 4.2-5.4 [facility] Comment on above: Performed By: #### L 501.2300, L500.2500, L501.5200, L100.0100 #### [facility] [address] [place], [address] RDW SD 55.7 fl High 35.1-43.9 [facility] Comment on above: Performed By: #### L 501.2300, L500.2500, L501.5200, L100.0100 #### [facility] [address] [place], [address] WBC (Bld) [#/Vol] 5.2 10*3/uL Normal 4.4-11.0 [facility] Comment on above: Performed By: #### L 501.2300, L500.2500, L501.5200, L100.0100 #### [facility] [address] [place], [address] Eosinophil percentageOrdered By: Simon Ulloa on 05-01-2025 Eosinophils/100 WBC (Bld) 0.6 % 0-5 [facility] Erythrocyte distribution wid th ratioOrdered By: Simon Ulloa on 05-01-2025 Erythrocyte distribution width (RBC) [Ratio] 14.0 % 11.6-14.6 [facility] Erythrocyte distribution wid th standard deviationOrdered By: Simon Ulloa on 05-01-2025 Erythrocyte distribution width (RBC) [Ratio] 55.7 fl High 35.1-43.9 [facility] Ferritinon 05-01-2025 Ferritin [Mass/Vol] 66 ng/mL Normal 22-378 [facility] Comment on above: Performed By: #### L 501.2300, L500.2500, L501.5200, L100.0100 #### [facility] [address] [place], [place], [id number] Hematocrit Auto (Bld) [Volum e fraction]Ordered By: Simon Ulloa on 05-01-2025 Hematocrit (Bld) [Volume fraction] 34.6 % Low 37-47 [facility] Hemoglobin measurementOrdere d By: Simon Ulloa on 05-01-2025 Hemoglobin (Bld) [Mass/Vol] 11.1 g/dL Low 12.0-15.0 [facility] Immature granulocytes/100 WB C Auto (Bld)[facility] Immature granulocytes/100 WBC (Bld) 0.400 % 0.0-0.9 [facility] Comment on above: IG% - Immature Granu locytes (promyelocytes, myelocytes and metamyelocytes) > 1% indicates that a LEFT SHIFT is Present. Iron measurement (mass/mass) Ordered By: Simon Ulloa on 05-01-2025 Iron (Unsp spec) [Mass/Mass] 31 ug/dL Low 50-170 [facility] Iron+Iron Binding Capacityon 05-01-2025 Iron [Mass/Vol] 31 ug/dL Low 50-170 [facility] Comment on above: Performed By: #### L 501.2300, L500.2500, L501.5200, L100.0100 #### [facility] [address] [place], [place], [id number] IRON SATURATION 10.0 Low 13-59 [facility] Comment on above: Performed By: #### L 501.2300, L500.2500, L501.5200, L100.0100 #### [facility] [address] [place], [address] TIBC 322 ug/dL Normal 250-450 [facility] Comment on above: Performed By: #### L 501.2300, L500.2500, L501.5200, L100.0100 #### [facility] [address] [place], [address] UIBC 291 ug/dL Normal 228-428 [facility] Comment on above: Performed By: #### L 501.2300, L500.2500, L501.5200, L100.0100 #### [facility] [address] [place], [address] MCV (mean corpuscular volume ) determinationOrdered By: Simon Ulloa on 05-01-2025 MCV (RBC) [Entitic vol] 108.5 fL High 81-99 [facility] Mean corpuscular hemoglobin (MCH) determinationOrdered By: Simon Ulloa on 05-01-2025 MCH (RBC) [Entitic mass] 34.8 pg High 27.0-32.0 [facility] Mean corpuscular hemoglobin concentration (MCHC) determinationOrdered By: Simon Ulloa on 05-01-2025 MCHC (RBC) [Mass/Vol] 32.1 g/dL 32-36 [facility] Mean platelet volume determi nationOrdered By: Simon Ulloa on 05-01-2025 Platelet mean volume (Bld) [Entitic vol] 9.7 fL 6.2-12.0 [facility] Monocyte percentageOrdered B y: Simon Ulloa on 05-01-2025 Monocytes/100 WBC (Bld) 13.9 % High 0-10 [facility] Neutrophil percentageOrdered By: Simon Ulloa on 05-01-2025 Neutrophils/100 WBC (Bld) 71.4 % High 47-70 [facility] No Panel InformationOrdered By: Simon Ulloa on 05-01-2025 Unsaturated Iron Binding Capacity 291 ug/dL 228-428 [facility] Nucleated red blood cell per centageOrdered By: Simon Ulloa on 05-01-2025 Nucleated RBC/100 WBC (Bld) [Ratio] 0 % 0-5 [facility] Oncology Visit Reporton 09 Oncology Visit Report [facility] [place] [address] OFFICE VISIT Date of Service: 05/01/25 1534 MR#: [id number] Acct: [id number] Name: ANGELES LARIOS Rep #: [id number] : 1960 From: Simon Ulloa MD Age/Sex: 65/F [place] [facility] [place]: [place] HPI Subjective Date of Service [...] capsule studies were done April 2021 at [facility], according to patient 2 colonic vascular lesions [...] stenosis Dysarthria Atherosclerosis of coronary artery of [place] heart without angina pectoris Essential (primary) hypertension [...] History Father , at age 38, from [place] Myocardial infarction cardiomopathy Mother Atrial fibrillation Hypertension [...] as documented (more content not included)... Normal [facility] Platelet countOrdered By: Darryl Ulloa on 05-01-2025 Platelets (Bld) [#/Vol] 238 10*3/uL 150-450 [facility] RBC Auto (Bld) [#/Vol]Ordere d By: Simon Ulloa on 05-01-2025 RBC (Bld) [#/Vol] 3.19 10*6/uL Low 4.2-5.4 [facility] Retic Panelon 05-01-2025 IM RET FRACTION 27.80 High 3.00-15.90 [facility] Comment on above: Performed By: #### L 501.2300, L500.2500, L501.5200, L100.0100 #### [facility] [address] [place], [address] RET-HE 34.6 pg Normal 30-35 [facility] Comment on above: Performed By: #### L 501.2300, L500.2500, L501.5200, L100.0100 #### [facility] [address] [place], [address] Retic Count 4.64 High 0.5-1.5 [facility] Comment on above: Performed By: #### L 501.2300, L500.2500, L501.5200, L100.0100 #### [facility] [address] [place], [address] Reticulocyte hemoglobin equi valent (RET-He) measurementOrdered By: Simon Ulloa on 05-01-2025 Hemoglobin (Reticulocytes) [Entitic mass] 34.6 pg 30-35 [facility] Reticulocytes Auto (Bld) [#/ Vol]Ordered By: Simon Ulloa on 05-01-2025 Reticulocytes/100 RBC (Bld) 4.64 % High 0.5-1.5 [facility] Serum or plasma ferritin ibrahima surement (mass/volume)Ordered By: Simon Ulloa on 05-01-2025 Ferritin [Mass/Vol] 66 ng/mL 22-378 [facility] Serum or plasma iron saturat ion measurement (mass fraction)Ordered By: Simon Ulloa on 05-01-2025 Iron saturation [Mass fraction] 10.0 % Low 13-59 [facility] White blood cell (WBC) count Ordered By: Simon Ulloa on 05-01-2025 WBC (Bld) [#/Vol] 5.2 10*3/uL 4.4-11.0 [facility] Absolute lymphocyte countOrd ered By: Martin Gutierrez on 12-22-2024 Lymphocytes Auto (Unsp spec) [#/Vol] 1.19 10*3/uL 0.83-4.51 [facility] Absolute neutrophil countOrd ered By: Martin Gutierrez on 12-22-2024 Neutrophils (Bld) [#/Vol] 4.8 10*3/uL 2.0-7.7 [facility] Anion gap in Serum or Plasma Ordered By: Martin Gutierrez on 12-22-2024 Anion gap [Moles/Vol] 10 mmol/L 5-15 [facility] Automated lymphocyte count a s percentage of total leukocytesOrdered By: Martin Gutierrez on 12-22-2024 Lymphocytes/100 WBC Auto (Unsp spec) 17.5 % Low 19-41 [facility] BUN/creatinine ratioOrdered By: Martin Gutierrez on 12-22-2024 Urea nitrogen/Creatinine [Mass ratio] 20.8 mg/mg High 10-20 [facility] Basophil percentageOrdered B y: Martin Gutierrez on 12-22-2024 Basophils/100 WBC (Bld) 0.9 % 0-1 [facility] Bilirubin, totalOrdered By: Martin Gutierrez on 12-22-2024 Bilirubin [Mass/Vol] mg/dL 0.00-1.30 [facility] CBC W/Diff, Automatedon Absolute Lymph 1.19 X10 3/uL Normal 0.83-4.51 [facility] Comment on above: Performed By: #### L 503.6030, L501.9520, L500.4050, L503.6550, L100.0100, L506.1001 #### [facility] [address] [place], [address] Absolute Neut 4.8 X10 3/uL Normal 2.0-7.7 [facility] Comment on above: Performed By: #### L 503.6030, L501.9520, L500.4050, L503.6550, L100.0100, L506.1001 #### [facility] [address] [place], [address] Basophils/100 WBC (Bld) 0.9 % Normal 0-1 [facility] Comment on above: Performed By: #### L 503.6030, L501.9520, L500.4050, L503.6550, L100.0100, L506.1001 #### [facility] [address] [place], [address] Eosinophils/100 WBC (Bld) 1.2 % Normal 0-5 [facility] Comment on above: Performed By: #### L 503.6030, L501.9520, L500.4050, L503.6550, L100.0100, L506.1001 #### [facility] [address] [place], [address] Erythrocyte distribution width (RBC) [Ratio] 13.4 % Normal 11.6-14.6 [facility] Comment on above: Performed By: #### L 503.6030, L501.9520, L500.4050, L503.6550, L100.0100, L506.1001 #### [facility] [address] [place], [address] Hematocrit (Bld) [Volume fraction] 36.7 % Low 37-47 [facility] Comment on above: Performed By: #### L 503.6030, L501.9520, L500.4050, L503.6550, L100.0100, L506.1001 #### [facility] [address] [place], [address] Hemoglobin (Bld) [Mass/Vol] 11.9 g/dL Low 12.0-15.0 [facility] Comment on above: Performed By: #### L 503.6030, L501.9520, L500.4050, L503.6550, L100.0100, L506.1001 #### [facility] [address] [place], [address] IG% 0.400 Normal 0.0-0.9 [facility] Comment on above: Result Comment: IG% - Immature Granulocytes (promyelocytes, myelocytes and metamyelocytes) > 1% indicates that a LEFT SHIFT is Present. Performed By: #### L 503.6030, L501.9520, L500.4050, L503.6550, L100.0100, L506.1001 #### [facility] [address] [place], [address] Lymphocytes/100 WBC (Bld) 17.5 % Low 19-41 [facility] Comment on above: Performed By: #### L 503.6030, L501.9520, L500.4050, L503.6550, L100.0100, L506.1001 #### [facility] [address] [place], [address] MCH (RBC) [Entitic mass] 34.8 pg High 27.0-32.0 [facility] Comment on above: Performed By: #### L 503.6030, L501.9520, L500.4050, L503.6550, L100.0100, L506.1001 #### [facility] [address] [place], [address] MCHC (RBC) [Mass/Vol] 32.4 g/dL Normal 32-36 [facility] Comment on above: Performed By: #### L 503.6030, L501.9520, L500.4050, L503.6550, L100.0100, L506.1001 #### [facility] [address] [place], [address] MCV (RBC) [Entitic vol] 107.3 fL High 81-99 [facility] Comment on above: Performed By: #### L 503.6030, L501.9520, L500.4050, L503.6550, L100.0100, L506.1001 #### [facility] [address] [place], [address] Monocytes/100 WBC (Bld) 9.9 % Normal 0-10 [facility] Comment on above: Performed By: #### L 503.6030, L501.9520, L500.4050, L503.6550, L100.0100, L506.1001 #### [facility] [address] [place], [address] Neutrophils/100 WBC (Bld) 70.1 % High 47-70 [facility] Comment on above: Performed By: #### L 503.6030, L501.9520, L500.4050, L503.6550, L100.0100, L506.1001 #### [facility] [address] [place], [address] Nucleated RBC (Bld) [#/Vol] 0 10*3/uL Normal 0-5 [facility] Comment on above: Performed By: #### L 503.6030, L501.9520, L500.4050, L503.6550, L100.0100, L506.1001 #### [facility] [address] [place], [address] Platelet mean volume (Bld) [Entitic vol] 9.5 fL Normal 6.2-12.0 [facility] Comment on above: Performed By: #### L 503.6030, L501.9520, L500.4050, L503.6550, L100.0100, L506.1001 #### [facility] [address] [place], [address] Platelets (Bld) [#/Vol] 296 10*3/uL Normal 150-450 [facility] Comment on above: Performed By: #### L 503.6030, L501.9520, L500.4050, L503.6550, L100.0100, L506.1001 #### [facility] [address] [place], [address] RBC (Bld) [#/Vol] 3.42 10*6/uL Low 4.2-5.4 [facility] Comment on above: Performed By: #### L 503.6030, L501.9520, L500.4050, L503.6550, L100.0100, L506.1001 #### [facility] [address] [place], [address] RDW SD 52.9 fl High 35.1-43.9 [facility] Comment on above: Performed By: #### L 503.6030, L501.9520, L500.4050, L503.6550, L100.0100, L506.1001 #### [facility] [address] [place], [address] WBC (Bld) [#/Vol] 6.8 10*3/uL Normal 4.4-11.0 [facility] Comment on above: Performed By: #### L 503.6030, L501.9520, L500.4050, L503.6550, L100.0100, L506.1001 #### [facility] [address] [place], [address] Carbon dioxide, total [Moles /volume] in Central venous bloodOrdered By: Martin Gutierrez on 12-22-2024 CO2 [Moles/Vol] 23.2 mmol/L 21.0-32.0 [facility] Chloride assayOrdered By: Cruzito Gutierrez on 12-22-2024 Chloride [Moles/Vol] 106 mmol/L 98-108 [facility] Comprehensive Metabolic Prof ilon 12-22-2024 Albumin [Mass/Vol] 4.0 g/dL Normal 3.4-4.8 [facility] Comment on above: Performed By: #### L 503.6030, L501.9520, L500.4050, L503.6550, L100.0100, L506.1001 #### [facility] [address] [place], [address] Albumin/Globulin [Mass ratio] 1.7 {ratio} Normal 0.9-2.4 [facility] Comment on above: Performed By: #### L 503.6030, L501.9520, L500.4050, L503.6550, L100.0100, L506.1001 #### [facility] [address] [place], [address] ALK PHOS 85 U/L Normal 35-104 [facility] Comment on above: Performed By: #### L 503.6030, L501.9520, L500.4050, L503.6550, L100.0100, L506.1001 #### [facility] [address] [place], [address] ALT [Catalytic activity/Vol] 14 U/L Normal <=34 [facility] Comment on above: Performed By: #### L 503.6030, L501.9520, L500.4050, L503.6550, L100.0100, L506.1001 #### [facility] [address] [place], [address] AST [Catalytic activity/Vol] 16 U/L Normal <=31 [facility] Comment on above: Performed By: #### L 503.6030, L501.9520, L500.4050, L503.6550, L100.0100, L506.1001 #### [facility] [address] [place], [address] BUN/CRE 20.8 RATIO High 10-20 [facility] Comment on above: Performed By: #### L 503.6030, L501.9520, L500.4050, L503.6550, L100.0100, L506.1001 #### [facility] [address] [place], [address] Calcium [Mass/Vol] 9.0 mg/dL Normal 7.6-11.0 [facility] Comment on above: Performed By: #### L 503.6030, L501.9520, L500.4050, L503.6550, L100.0100, L506.1001 #### [facility] [address] [place], [address] Chloride [Moles/Vol] 106 mmol/L Normal 98-108 [facility] Comment on above: Performed By: #### L 503.6030, L501.9520, L500.4050, L503.6550, L100.0100, L506.1001 #### [facility] [address] [place], [address] CO2 [Moles/Vol] 23.2 mmol/L Normal 21.0-32.0 [facility] Comment on above: Performed By: #### L 503.6030, L501.9520, L500.4050, L503.6550, L100.0100, L506.1001 #### [facility] [address] [place], [address] Creatinine [Mass/Vol] 0.65 mg/dL Low 0.70-1.20 [facility] Comment on above: Performed By: #### L 503.6030, L501.9520, L500.4050, L503.6550, L100.0100, L506.1001 #### [facility] [address] [place], [address] GAP 10 Normal 5-15 [facility] Comment on above: Performed By: #### L 503.6030, L501.9520, L500.4050, L503.6550, L100.0100, L506.1001 #### [facility] [address] [place], [address] GFR/1.73 sq M.predicted among non-blacks MDRD (S/P/Bld) [Vol rate/Area] 97 mL/min/{1.73_m2} Normal >60 [facility] Comment on above: Result Comment: mL/m in/1.73m2 CKD-EPI Creatinine Equation (2020) Performed By: #### L 503.6030, L501.9520, L500.4050, L503.6550, L100.0100, L506.1001 #### [facility] [address] [place], [address] Globulin (S) [Mass/Vol] 2.3 g/dL Normal 2.2-4.2 [facility] Comment on above: Performed By: #### L 503.6030, L501.9520, L500.4050, L503.6550, L100.0100, L506.1001 #### [facility] [address] [place], [address] Glucose [Mass/Vol] 123 mg/dL High 70-99 [facility] Comment on above: Performed By: #### L 503.6030, L501.9520, L500.4050, L503.6550, L100.0100, L506.1001 #### [facility] [address] [place], [address] Potassium [Moles/Vol] 3.9 mmol/L Normal 3.3-5.1 [facility] Comment on above: Performed By: #### L 503.6030, L501.9520, L500.4050, L503.6550, L100.0100, L506.1001 #### [facility] [address] [place], [address] Sodium [Moles/Vol] 139 mmol/L Normal 133-145 [facility] Comment on above: Performed By: #### L 503.6030, L501.9520, L500.4050, L503.6550, L100.0100, L506.1001 #### [facility] [address] [place], [address] T BILI < 0.15 Normal 0.00-1.30 [facility] Comment on above: Performed By: #### L 503.6030, L501.9520, L500.4050, L503.6550, L100.0100, L506.1001 #### [facility] [address] [place], [address] T PROT 6.2 g/dL Normal 5.9-8.4 [facility] Comment on above: Performed By: #### L 503.6030, L501.9520, L500.4050, L503.6550, L100.0100, L506.1001 #### [facility] [address] [place], [address] Urea nitrogen [Mass/Vol] 14 mg/dL Normal 4-19 [facility] Comment on above: Performed By: #### L 503.6030, L501.9520, L500.4050, L503.6550, L100.0100, L506.1001 #### [facility] [address] [place], [address] Eosinophil percentageOrdered By: Martin Gutierrez on 12-22-2024 Eosinophils/100 WBC (Bld) 1.2 % 0-5 [facility] Erythrocyte distribution wid th ratioOrdered By: [facility] Matt on 12-22-2024 Erythrocyte distribution width (RBC) [Ratio] 13.4 % 11.6-14.6 [facility] Erythrocyte distribution wid th standard deviationOrdered By: [facility] Matt on 12-22-2024 Erythrocyte distribution width (RBC) [Ratio] 52.9 fl High 35.1-43.9 [facility] Ferritinon 12-22-2024 Ferritin [Mass/Vol] 33 ng/mL Normal 22-378 [facility] Comment on above: Performed By: #### L 503.6030, L501.9520, L500.4050, L503.6550, L100.0100, L506.1001 #### [facility] [place], [address] Glomerular filtration rate ( GFR) estimation/1.73 sq m using serum, plasma, or whole bOrdered By: Martin Matt on 12-22-2024 GFR/1.73 sq M.predicted among non-blacks MDRD (S/P/Bld) [Vol rate/Area] 97 mL/min/{1.73_m2} >60 [facility] Comment on above: mL/min/1.73m2 CKD-EP I Creatinine Equation (2020) Hematocrit Auto (Bld) [Volum e fraction]Ordered By: [facility] Matt on 12-22-2024 Hematocrit (Bld) [Volume fraction] 36.7 % Low 37-47 [facility] Hemoglobin measurementOrdere d By: Martin Matt on 12-22-2024 Hemoglobin (Bld) [Mass/Vol] 11.9 g/dL Low 12.0-15.0 [facility] Immature granulocytes/100 WB C Auto (Bld)Ordered By: Martin Matt on 12-22-2024 Immature granulocytes/100 WBC (Bld) 0.400 % 0.0-0.9 [facility] Comment on above: IG% - Immature Granu locytes (promyelocytes, myelocytes and metamyelocytes) > 1% indicates that a LEFT SHIFT is Present. Iron measurement (mass/mass) Ordered By: Martin Gutierrez on 12-22-2024 Iron (Unsp spec) [Mass/Mass] 31 ug/dL Low 50-170 [facility] Iron+Iron Binding Capacityon 12-22-2024 Iron [Mass/Vol] 31 ug/dL Low 50-170 [facility] Comment on above: Performed By: #### L 503.6030, L501.9520, L500.4050, L503.6550, L100.0100, L506.1001 #### [facility] [address] [place], [address] IRON SATURATION 10.0 Low 13-59 [facility] Comment on above: Performed By: #### L 503.6030, L501.9520, L500.4050, L503.6550, L100.0100, L506.1001 #### [facility] [address] [place], [address] TIBC 311 ug/dL Normal 250-450 [facility] Comment on above: Performed By: #### L 503.6030, L501.9520, L500.4050, L503.6550, L100.0100, L506.1001 #### [facility] [address] [place], [address] UIBC 280 ug/dL Normal 228-428 [facility] Comment on above: Performed By: #### L 503.6030, L501.9520, L500.4050, L503.6550, L100.0100, L506.1001 #### [facility] [address] [place], [address] Laboratory - Chemistry and C hemistry - challengeOrdered By: Martin Gutierrez on 12-22-2024 AST [Catalytic activity/Vol] 16 U/L <32 [facility] MCV (mean corpuscular volume ) determinationOrdered By: Martin Gutierrez on 12-22-2024 MCV (RBC) [Entitic vol] 107.3 fL High 81-99 [facility] Mean corpuscular hemoglobin (MCH) determinationOrdered By: Martin Gutierrez on 12-22-2024 MCH (RBC) [Entitic mass] 34.8 pg High 27.0-32.0 [facility] Mean corpuscular hemoglobin concentration (MCHC) determinationOrdered By: Martin Gutierrez on 12-22-2024 MCHC (RBC) [Mass/Vol] 32.4 g/dL 32-36 [facility] Mean platelet volume determi nationOrdered By: Martin Gutierrez on 12-22-2024 Platelet mean volume (Bld) [Entitic vol] 9.5 fL 6.2-12.0 [facility] Monocyte percentageOrdered B y: Martin Gutierrez on 12-22-2024 Monocytes/100 WBC (Bld) 9.9 % 0-10 [facility] Neutrophil percentageOrdered By: Martin Gutierrez on 12-22-2024 Neutrophils/100 WBC (Bld) 70.1 % High 47-70 [facility] No Panel InformationOrdered By: Martin Gutierrez on 12-22-2024 Unsaturated Iron Binding Capacity 280 ug/dL 228-428 [facility] Nucleated red blood cell per centageOrdered By: Martin Gutierrez on 12-22-2024 Nucleated RBC/100 WBC (Bld) [Ratio] 0 % 0-5 [facility] Platelet countOrdered By: Cruzito Gutierrez on 12-22-2024 Platelets (Bld) [#/Vol] 296 10*3/uL 150-450 [facility] Potassium measurement (mass/ volume)Ordered By: Martin Gutierrez on 12-22-2024 Potassium (Unsp spec) [Mass/Vol] 3.9 mmol/L 3.3-5.1 [facility] RBC Auto (Bld) [#/Vol]Ordere d By: Martin Gutierrez on 12-22-2024 RBC (Bld) [#/Vol] 3.42 10*6/uL Low 4.2-5.4 [facility] Serum creatinine measurement (mass/volume)Ordered By: Martin Gutierrez on 12-22-2024 Creatinine [Mass/Vol] 0.65 mg/dL Low 0.70-1.20 [facility] Serum globulin measurementOr dered By: Martin Gutierrez on 12-22-2024 Globulin (S) [Mass/Vol] 2.3 g/dL 2.2-4.2 [facility] Serum glucose measurement (m ass/volume)Ordered By: Martin Gutierrez on 12-22-2024 Glucose [Mass/Vol] 123 mg/dL High 70-99 [facility] Serum or plasma alanine joshi otransferase (ALT) measurementOrdered By: Martin Gutierrez on 12-22-2024 ALT [Catalytic activity/Vol] 14 U/L <35 [facility] Serum or plasma albumin kamlesh urement (mass/volume)Ordered By: Martin Gutierrez on 12-22-2024 Albumin [Mass/Vol] 4.0 g/dL 3.4-4.8 [facility] Serum or plasma albumin/glob ulin mass ratioOrdered By: Martin Gutierrez 12-22-2024 Albumin/Globulin [Mass ratio] 1.7 {ratio} 0.9-2.4 [facility] Serum or plasma alkaline mena sphatase measurementOrdered By: Martin Gutierrez 12-22-2024 ALP [Catalytic activity/Vol] 85 U/L 35-104 [facility] Serum or plasma calcium kamlesh urement (mass/volume)Ordered By: Martin Gutierrez 12-22-2024 Calcium [Mass/Vol] 9.0 mg/dL 7.6-11.0 [facility] Serum or plasma ferritin ibrahima surement (mass/volume)Ordered By: Martin Gutierrez 12-22-2024 Ferritin [Mass/Vol] 33 ng/mL 22-378 [facility] Serum or plasma iron saturat ion measurement (mass fraction)Ordered By: Martin Gutierrez 12-22-2024 Iron saturation [Mass fraction] 10.0 % Low 13-59 [facility] Serum or plasma urea nitroge n measurement (mass/volume)Ordered By: Martin Gutierrez 12-22-2024 Urea nitrogen [Mass/Vol] 14 mg/dL 4-19 [facility] Sodium levelOrdered By: Martin Gutierrez 12-22-2024 Sodium [Moles/Vol] 139 mmol/L 133-145 [facility] TSH DL <= 0.005 mIU/L QnOrde red By: Martin Gutierrez on 12-22-2024 TSH Qn 2.440 uIU/mL 0.300-4.200 [facility] Thyroid Stim Hormone (TSH)on 12-22-2024 TSH 2.440 uIU/mL Normal 0.300-4.200 [facility] Comment on above: Performed By: #### L 503.6030, L501.9520, L500.4050, L503.6550, L100.0100, L506.1001 #### [facility] [address] [place], [place], [id number] Total proteinOrdered By: Martin Gutierrez on 12-22-2024 Protein [Mass/Vol] 6.2 g/dL 5.9-8.4 [facility] Vitamin D,25 Hydroxyon 12-22 Vitamin D 25-OH 12.1 ng/mL Low 30-100 [facility] Comment on above: Result Comment: Shanti min D Status Deficiency: <20 ng/mL (50nmol/L) Insufficiency: 20-30 ng/mL (50-75 nmol/L) Sufficiency: 30-100 ng/mL (75-250 nmol/L) Toxicity: >100 ng/mL (>250 nmol/L) Performed By: #### L 503.6030, L501.9520, L500.4050, L503.6550, L100.0100, L506.1001 #### [facility] [address] [place], [place], [id number] White blood cell (WBC) count Ordered By: Martin Gutierrez on 12-22-2024 WBC (Bld) [#/Vol] 6.8 10*3/uL 4.4-11.0 [facility] Inital Evaluation (1) - PTon 11-14-2024 Inital Evaluation (1) - PT [facility] [address] [place] [address] / REHABILITATION SERVICES INITIAL EVALUATION MR#: [id number] Acct: [id number] Name: ANGELES LARIOS Rep #: [id number] : 1960 64 From: Pardeep Betancur PT, Cert. T, OCS Referring Dr.: Dr. Armando Ga MD Status: REG R Insurance: [facility] [id number] SELF PAY INSURANCE Patient's Visit Information Visit [...] Response: No effect Lumbar Standing: Right Side Ruby - Symptoms During Testing: No effect Lumbar Standing: Right Side Ruby - Symptoms After Testing: No effect Lumbar Standing: Left Side Ruby - Mechanical Response: No effect Lumbar Standing: Left Side Ruby - Symptoms During Testing: No effect Lumbar Standing: Left Side Ruby - Symptoms After Testing: No effect Balance/Special [...] eisure, To (more content not included)... Normal [facility] Basic Metabolic Profile (BMP )on 10-05-2024 BUN/CRE 26.9 RATIO High 10-20 [facility] Comment on above: Performed By: #### L 503.6030, L501.9520, L500.4050, L503.6550, L100.0100, L506.1001 #### [facility] [address] [place], [address] CA,Total 8.9 mg/dL Normal 8.5-10.1 [facility] Comment on above: Performed By: #### L 503.6030, L501.9520, L500.4050, L503.6550, L100.0100, L506.1001 #### [facility] [address] [place], [address] Chloride [Moles/Vol] 111 mmol/L High 98-107 [facility] Comment on above: Performed By: #### L 503.6030, L501.9520, L500.4050, L503.6550, L100.0100, L506.1001 #### [facility] [address] [place], [address] CO2 [Moles/Vol] 24.0 mmol/L Normal 21.0-32.0 [facility] Comment on above: Performed By: #### L 503.6030, L501.9520, L500.4050, L503.6550, L100.0100, L506.1001 #### [facility] [address] [place], [address] Creatinine [Mass/Vol] 0.63 mg/dL Normal 0.55-1.02 [facility] Comment on above: Result Comment: The validity of the calculated GFR GFRAA in patients over 70 years has not been determined. Clinical correlation is essential. Performed By: #### L 503.6030, L501.9520, L500.4050, L503.6550, L100.0100, L506.1001 #### [facility] [address] [place], [address] EST GFR - AA 121 mL/min Normal >60 [facility] Comment on above: Result Comment: Afri can Venezuelan GFR Calc Performed By: #### L 503.6030, L501.9520, L500.4050, L503.6550, L100.0100, L506.1001 #### [facility] [address] [place], [address] GAP 6 Normal 5-15 [facility] Comment on above: Performed By: #### L 503.6030, L501.9520, L500.4050, L503.6550, L100.0100, L506.1001 #### [facility] [address] [place], [address] GFR/1.73 sq M.predicted among non-blacks MDRD (S/P/Bld) [Vol rate/Area] 100 mL/min/{1.73_m2} Normal >60 [facility] Comment on above: Result Comment: Non- GFR Calc Performed By: #### L 503.6030, L501.9520, L500.4050, L503.6550, L100.0100, L506.1001 #### [facility] [address] [place], [address] Glucose [Mass/Vol] 92 mg/dL Normal 74-106 [facility] Comment on above: Performed By: #### L 503.6030, L501.9520, L500.4050, L503.6550, L100.0100, L506.1001 #### [facility] [address] [place], [address] Potassium [Moles/Vol] 3.8 mmol/L Normal 3.5-5.1 [facility] Comment on above: Performed By: #### L 503.6030, L501.9520, L500.4050, L503.6550, L100.0100, L506.1001 #### [facility] [address] [place], [address] Sodium [Moles/Vol] 141 mmol/L Normal 136-145 [facility] Comment on above: Performed By: #### L 503.6030, L501.9520, L500.4050, L503.6550, L100.0100, L506.1001 #### [facility] [address] [place], [address] Urea nitrogen [Mass/Vol] 17 mg/dL Normal 7-18 [facility] Comment on above: Performed By: #### L 503.6030, L501.9520, L500.4050, L503.6550, L100.0100, L506.1001 #### [facility] [address] [place], [address] BUN Normal 7-18 [facility] Comment on above: Result Comment: DUPL ICATE ORDER Performed By: #### L 501.2300, L500.2500, L501.5200, L100.0100 #### [facility] [address] [place], [address] BUN/CRE Normal 10-20 [facility] Comment on above: Result Comment: DUPL ICATE ORDER Performed By: #### L 501.2300, L500.2500, L501.5200, L100.0100 #### [facility] [address] [place], [address] CA,Total Normal 8.5-10.1 [facility] Comment on above: Result Comment: DUPL ICATE ORDER Performed By: #### L 501.2300, L500.2500, L501.5200, L100.0100 #### [facility] [address] [place], [address] CL Normal 98-107 [facility] Comment on above: Result Comment: DUPL ICATE ORDER Performed By: #### L 501.2300, L500.2500, L501.5200, L100.0100 #### [facility] [address] [place], [address] CO2 Normal 21.0-32.0 [facility] Comment on above: Result Comment: DUPL ICATE ORDER Performed By: #### L 501.2300, L500.2500, L501.5200, L100.0100 #### [facility] [address] [place], [address] CREAT,SERUM Normal 0.55-1.02 [facility] Comment on above: Result Comment: DUPL ICATE ORDER Performed By: #### L 501.2300, L500.2500, L501.5200, L100.0100 #### [facility] [address] [place], [address] EST GFR Normal >60 [facility] Comment on above: Result Comment: DUPL ICATE ORDER Performed By: #### L 501.2300, L500.2500, L501.5200, L100.0100 #### [facility] [address] [place], [address] EST GFR - AA Normal >60 [facility] Comment on above: Result Comment: DUPL ICATE ORDER Performed By: #### L 501.2300, L500.2500, L501.5200, L100.0100 #### [facility] [address] [place], [address] GAP Normal 5-15 [facility] Comment on above: Result Comment: DUPL ICATE ORDER Performed By: #### L 501.2300, L500.2500, L501.5200, L100.0100 #### [facility] [address] [place], [address] GLU Normal 74-106 [facility] Comment on above: Result Comment: DUPL ICATE ORDER Performed By: #### L 501.2300, L500.2500, L501.5200, L100.0100 #### [facility] [address] [place], [address] Potassium Normal 3.5-5.1 [facility] Comment on above: Result Comment: DUPL ICATE ORDER Performed By: #### L 501.2300, L500.2500, L501.5200, L100.0100 #### [facility] [address] [place], [address] Basic Metabolic Profile (BMP) Normal 136-145 [facility] Comment on above: Result Comment: DUPL ICATE ORDER Performed By: #### L 501.2300, L500.2500, L501.5200, L100.0100 #### [facility] [address] [place], [address] Blood urea nitrogen (BUN)/cr eatinine ratioOrdered By: Martin Gutierrez on 10-05-2024 Urea nitrogen/Creatinine [Mass ratio] 26.9 mg/mg High 10-20 [facility] Carbon dioxide measurementOr dered By: Martin Gutierrez on 10-05-2024 CO2 [Moles/Vol] 24.0 mmol/L 21.0-32.0 [facility] Chloride measurementOrdered By: Martin Gutierrez 10-05-2024 Chloride [Moles/Vol] 111 mmol/L High 98-107 [facility] Glomerular filtration rate ( GFR) estimationOrdered By: Martin Gutierrez on 10-05-2024 GFR/1.73 sq M.predicted among non-blacks MDRD (S/P/Bld) [Vol rate/Area] 100 mL/min/{1.73_m2} >60 [facility] Comment on above: Non- GFR Calc Glucose measurementOrdered B y: Martin Gutierrez on 10-05-2024 Glucose [Mass/Vol] 92 mg/dL 74-106 [facility] Potassium measurementOrdered By: Martin Gutierrez on 10-05-2024 Potassium [Moles/Vol] 3.8 mmol/L 3.5-5.1 [facility] Serum anion gap measurementO rdered By: Martin Gutierrez on 10-05-2024 Anion gap [Moles/Vol] 6 mmol/L 5-15 [facility] Serum or plasma calcium kamlesh urement (mass/volume)Ordered By: Martin Gutierrez on 10-05-2024 Calcium [Mass/Vol] 8.9 mg/dL 8.5-10.1 [facility] Serum or plasma creatinine m easurement (mass/volume)Ordered By: Martin Gutierrez on 10-05-2024 Creatinine [Mass/Vol] 0.63 mg/dL 0.55-1.02 [facility] Comment on above: The validity of the calculated GFR & GFRAA in patients over 70 years has not been determined. Clinical correlation is essential. Serum or plasma urea nitroge n measurement (mass/volume)Ordered By: Martin Gutierrez on 10-05-2024 Urea nitrogen [Mass/Vol] 17 mg/dL 7-18 [facility] Sodium levelOrdered By: Martin Gutierrez on 10-05-2024 Sodium [Moles/Vol] 141 mmol/L 136-145 [facility] Absolute lymphocyte countOrd ered By: Simon Ulloa on 10-04-2024 Lymphocytes Auto (Unsp spec) [#/Vol] 1.35 10*3/uL 0.83-4.51 [facility] Absolute neutrophil countOrd ered By: Simon Ulloa on 10-04-2024 Neutrophils (Bld) [#/Vol] 6.4 10*3/uL 2.0-7.7 [facility] Automated lymphocyte count a s percentage of total leukocytesOrdered By: Simon Ulloa on 10-04-2024 Lymphocytes/100 WBC Auto (Unsp spec) 14.7 % Low 19-41 [facility] Basophil percentageOrdered B y: Simon Ulloa on 10-04-2024 Basophils/100 WBC (Bld) 0.3 % 0-1 [facility] CBC W/Diff, Automatedon 09-24 Absolute Lymph 1.35 X10 3/uL Normal 0.83-4.51 [facility] Comment on above: Performed By: #### L 501.2300, L500.2500, L501.5200, L100.0100 #### [facility] [address] [place], [address] Absolute Neut 6.4 X10 3/uL Normal 2.0-7.7 [facility] Comment on above: Performed By: #### L 501.2300, L500.2500, L501.5200, L100.0100 #### [facility] [address] [place], [address] Basophils/100 WBC (Bld) 0.3 % Normal 0-1 [facility] Comment on above: Performed By: #### L 501.2300, L500.2500, L501.5200, L100.0100 #### [facility] [address] [place], [address] Eosinophils/100 WBC (Bld) 0.5 % Normal 0-5 [facility] Comment on above: Performed By: #### L 501.2300, L500.2500, L501.5200, L100.0100 #### [facility] [address] [place], [address] Erythrocyte distribution width (RBC) [Ratio] 12.7 % Normal 11.6-14.6 [facility] Comment on above: Performed By: #### L 501.2300, L500.2500, L501.5200, L100.0100 #### [facility] [address] [place], [address] Hematocrit (Bld) [Volume fraction] 32.1 % Low 37-47 [facility] Comment on above: Performed By: #### L 501.2300, L500.2500, L501.5200, L100.0100 #### [facility] [address] [place], [address] Hemoglobin (Bld) [Mass/Vol] 10.4 g/dL Low 12.0-15.0 [facility] Comment on above: Performed By: #### L 501.2300, L500.2500, L501.5200, L100.0100 #### [facility] [address] [place], [address] IG% 2.900 High 0.0-0.9 [facility] Comment on above: Result Comment: IG% - Immature Granulocytes (promyelocytes, myelocytes and metamyelocytes) > 1% indicates that a LEFT SHIFT is Present. Performed By: #### L 501.2300, L500.2500, L501.5200, L100.0100 #### [facility] [address] [place], [address] Lymphocytes/100 WBC (Bld) 14.7 % Low 19-41 [facility] Comment on above: Performed By: #### L 501.2300, L500.2500, L501.5200, L100.0100 #### [facility] [address] [place], [address] MCH (RBC) [Entitic mass] 33.8 pg High 27.0-32.0 [facility] Comment on above: Performed By: #### L 501.2300, L500.2500, L501.5200, L100.0100 #### [facility] [address] [place], [address] MCHC (RBC) [Mass/Vol] 32.4 g/dL Normal 32-36 [facility] Comment on above: Performed By: #### L 501.2300, L500.2500, L501.5200, L100.0100 #### [facility] [address] [place], [address] MCV (RBC) [Entitic vol] 104.2 fL High 81-99 [facility] Comment on above: Performed By: #### L 501.2300, L500.2500, L501.5200, L100.0100 #### [facility] [address] [place], [address] Monocytes/100 WBC (Bld) 11.8 % High 0-10 [facility] Comment on above: Performed By: #### L 501.2300, L500.2500, L501.5200, L100.0100 #### [facility] [address] [place], [address] Neutrophils/100 WBC (Bld) 69.8 % Normal 47-70 [facility] Comment on above: Performed By: #### L 501.2300, L500.2500, L501.5200, L100.0100 #### [facility] [address] [place], [address] Nucleated RBC (Bld) [#/Vol] 0 10*3/uL Normal 0-5 [facility] Comment on above: Performed By: #### L 501.2300, L500.2500, L501.5200, L100.0100 #### [facility] [address] [place], [address] Platelet mean volume (Bld) [Entitic vol] 9.6 fL Normal 6.2-12.0 [facility] Comment on above: Performed By: #### L 501.2300, L500.2500, L501.5200, L100.0100 #### [facility] [address] [place], [address] Platelets (Bld) [#/Vol] 455 10*3/uL High 150-450 [facility] Comment on above: Performed By: #### L 501.2300, L500.2500, L501.5200, L100.0100 #### [facility] [address] [place], [address] RBC (Bld) [#/Vol] 3.08 10*6/uL Low 4.2-5.4 [facility] Comment on above: Performed By: #### L 501.2300, L500.2500, L501.5200, L100.0100 #### [facility] [address] [place], [address] RDW SD 48.7 fl High 35.1-43.9 [facility] Comment on above: Performed By: #### L 501.2300, L500.2500, L501.5200, L100.0100 #### [facility] [address] [place], [address] WBC (Bld) [#/Vol] 9.2 10*3/uL Normal 4.4-11.0 [facility] Comment on above: Performed By: #### L 501.2300, L500.2500, L501.5200, L100.0100 #### [facility] [address] [place], [address] Eosinophil percentageOrdered By: Simon Ulloa on 10-04-2024 Eosinophils/100 WBC (Bld) 0.5 % 0-5 [facility] Erythrocyte distribution wid th ratioOrdered By: Simon Ulloa on 10-04-2024 Erythrocyte distribution width (RBC) [Ratio] 12.7 % 11.6-14.6 [facility] Erythrocyte distribution wid th standard deviationOrdered By: Simon Ulloa on 10-04-2024 Erythrocyte distribution width (RBC) [Ratio] 48.7 fl High 35.1-43.9 [facility] Ferritinon 10-04-2024 Ferritin [Mass/Vol] 38 ng/mL Normal [facility] Comment on above: Performed By: #### L 501.2300, L500.2500, L501.5200, L100.0100 #### [facility] [address] [place], [address] Ferritin measurementOrdered By: Simon Ulloa on 10-04-2024 Ferritin [Mass/Vol] 38 ng/mL [facility] Hematocrit Auto (Bld) [Volum e fraction]Ordered By: Simon Ulloa on 10-04-2024 Hematocrit (Bld) [Volume fraction] 32.1 % Low 37-47 [facility] Hemoglobin measurementOrdere d By: Simon Ulloa on 10-04-2024 Hemoglobin (Bld) [Mass/Vol] 10.4 g/dL Low 12.0-15.0 [facility] Immature granulocytes/100 WB C Auto (Bld)Ordered By: Simon Ulloa on 10-04-2024 Immature granulocytes/100 WBC (Bld) 2.900 % High 0.0-0.9 [facility] Comment on above: IG% - Immature Granu locytes (promyelocytes, myelocytes and metamyelocytes) > 1% indicates that a LEFT SHIFT is Present. Iron measurement (mass/mass) Ordered By: Simon Ulloa on 10-04-2024 Iron (Unsp spec) [Mass/Mass] 28 ug/dL Low 50-170 [facility] Iron+Iron Binding Capacityon 10-04-2024 Iron [Mass/Vol] 28 ug/dL Low 50-170 [facility] Comment on above: Performed By: #### L 501.2300, L500.2500, L501.5200, L100.0100 #### [facility] [address] [place], [address] IRON SATURATION 9.5 Low 15.0-55.0 [facility] Comment on above: Performed By: #### L 501.2300, L500.2500, L501.5200, L100.0100 #### [facility] [address] [place], [address] TIBC 296 ug/dL Normal 250-450 [facility] Comment on above: Performed By: #### L 501.2300, L500.2500, L501.5200, L100.0100 #### [facility] [address] [place], [address] MCV (mean corpuscular volume ) determinationOrdered By: Simon Ulloa on 10-04-2024 MCV (RBC) [Entitic vol] 104.2 fL High 81-99 [facility] Mean corpuscular hemoglobin (MCH) determinationOrdered By: Simon Ulloa on 10-04-2024 MCH (RBC) [Entitic mass] 33.8 pg High 27.0-32.0 [facility] Mean corpuscular hemoglobin concentration (MCHC) determinationOrdered By: Simon Ulloa on 10-04-2024 MCHC (RBC) [Mass/Vol] 32.4 g/dL 32-36 [facility] Mean platelet volume determi nationOrdered By: Simon Ulloa on 10-04-2024 Platelet mean volume (Bld) [Entitic vol] 9.6 fL 6.2-12.0 [facility] Monocyte percentageOrdered B y: Simon Ulloa on 10-04-2024 Monocytes/100 WBC (Bld) 11.8 % High 0-10 [facility] Neutrophil percentageOrdered By: Simon Ulloa on 10-04-2024 Neutrophils/100 WBC (Bld) 69.8 % 47-70 [facility] Nucleated red blood cell per centageOrdered By: Simon Ulloa on 10-04-2024 Nucleated RBC/100 WBC (Bld) [Ratio] 0 % 0-5 [facility] Oncology Visit Reporton 09-24 Oncology Visit Report [facility] [address] [place] [address] OFFICE VISIT Date of Service: 10/04/24 1050 MR#: [id number] Acct: [id number] Name: ANGELES LARIOS Rep #: [id number] : 1960 From: Simon Ulloa MD Age/Sex: 64/F Location[place] [facility] [place] Status: Signed HPI Subjective Date of Service [...] capsule studies were done April 2021 at [facility], according to patient 2 colonic vascular lesions were seen and cauterized. Interval History Was hospitalized September 2024 with influenza, recovering [facility] Medical History Tobacco use disorder, continuous Iron deficiency anemia due to chronic blood loss History of stress test Depression Hypothyroidism GERD (gastroesophageal reflux disease) Smoker Coronary artery disease Hypertension DVT (deep venous thrombosis) TIA (transient ischemic attack) Anemia Macrocytosis Nicotine dependence Chronic GI bleeding Peripheral vascular disease Non-rheumatic aortic stenosis Dysarthria Atherosclerosis of coronary artery of [place] heart without angina pectoris Essential (primary) hypertension [...] History Father , at age 38, from [place] Myocardial infarction cardiomopathy Mother Atrial fibrillation Hypertension [...] Allergic/Immunologic Allergic/Immunologic: (more content not included)... Normal [facility] Platelet countOrdered By: Darryl Ulloa on 10-04-2024 Platelets (Bld) [#/Vol] 455 10*3/uL High 150-450 [facility] RBC Auto (Bld) [#/Vol]Ordere d By: Simon Ulloa on 10-04-2024 RBC (Bld) [#/Vol] 3.08 10*6/uL Low 4.2-5.4 [facility] Retic Panelon 10-04-2024 IM RET FRACTION 29.00 High 3.00-15.90 [facility] Comment on above: Performed By: #### L 501.2300, L500.2500, L501.5200, L100.0100 #### [facility] [address] [place], [address] RET-HE 27.0 pg Low 30-35 [facility] Comment on above: Performed By: #### L 501.2300, L500.2500, L501.5200, L100.0100 #### [facility] [address] [place], [address] Retic Count 3.65 High 0.5-1.5 [facility] Comment on above: Performed By: #### L 501.2300, L500.2500, L501.5200, L100.0100 #### [facility] [address] [place], [address] Reticulocyte hemoglobin equi valent (RET-He) measurementOrdered By: Simon Ulloa on 10-04-2024 Hemoglobin (Reticulocytes) [Entitic mass] 27.0 pg Low 30-35 [facility] Reticulocytes Auto (Bld) [#/ Vol]Ordered By: Simon Ulloa on 10-04-2024 Reticulocytes/100 RBC (Bld) 3.65 % High 0.5-1.5 [facility] Serum or plasma iron saturat ion measurement (mass fraction)Ordered By: Simon Ulloa on 10-04-2024 Iron saturation [Mass fraction] 9.5 % Low 15.0-55.0 [facility] Vitamin B12on 10-04-2024 Cobalamin (Vitamin B12) [Mass/Vol] 438 pg/mL Normal [facility] Comment on above: Performed By: #### L 501.2300, L500.2500, L501.5200, L100.0100 #### [facility] [address] [place], [address] Vitamin B12 measurementOrder ed By: Simon Ulloa on 10-04-2024 Cobalamin (Vitamin B12) [Mass/Vol] 438 pg/mL [facility] White blood cell (WBC) count Ordered By: Simon Ulloa on 10-04-2024 WBC (Bld) [#/Vol] 9.2 10*3/uL 4.4-11.0 [facility] Culture, Blood (WB)on 2024 CUB Blood cultures x2, from two different sites No growth in 5 days. Normal [facility] Comment on above: Performed By: #### L 503.6030, L501.9520, L500.4050, L503.6550, L100.0100, L506.1001 #### [facility] [address] [place], [address] Basic Metabolic Profile (BMP )on 09-30-2024 BUN Normal 7-18 [facility] Comment on above: Result Comment: Canc elled via OM: Order cancelled - Patient discharged Performed By: #### L 501.2300, L500.2500, L501.5200, L100.0100 #### [facility] [address] [place], [address] BUN/CRE Normal 10-20 [facility] Comment on above: Result Comment: Canc elled via OM: Order cancelled - Patient discharged Performed By: #### L 501.2300, L500.2500, L501.5200, L100.0100 #### [facility] [address] [place], [address] CA,Total Normal 8.5-10.1 [facility] Comment on above: Result Comment: Canc elled via OM: Order cancelled - Patient discharged Performed By: #### L 501.2300, L500.2500, L501.5200, L100.0100 #### [facility] [address] [place], [address] CL Normal 98-107 [facility] Comment on above: Result Comment: Canc elled via OM: Order cancelled - Patient discharged Performed By: #### L 501.2300, L500.2500, L501.5200, L100.0100 #### [facility] [address] [place], [address] CO2 Normal 21.0-32.0 [facility] Comment on above: Result Comment: Canc elled via OM: Order cancelled - Patient discharged Performed By: #### L 501.2300, L500.2500, L501.5200, L100.0100 #### [facility] [address] [place], [address] CREAT,SERUM Normal 0.55-1.02 [facility] Comment on above: Result Comment: Canc elled via OM: Order cancelled - Patient discharged Performed By: #### L 501.2300, L500.2500, L501.5200, L100.0100 #### [facility] [address] [place], [address] EST GFR Normal >60 [facility] Comment on above: Result Comment: Canc elled via OM: Order cancelled - Patient discharged Performed By: #### L 501.2300, L500.2500, L501.5200, L100.0100 #### [facility] [address] [place], [address] EST GFR - AA Normal >60 [facility] Comment on above: Result Comment: Canc elled via OM: Order cancelled - Patient discharged Performed By: #### L 501.2300, L500.2500, L501.5200, L100.0100 #### [facility] [address] [place], [address] GAP Normal 5-15 [facility] Comment on above: Result Comment: Canc elled via OM: Order cancelled - Patient discharged Performed By: #### L 501.2300, L500.2500, L501.5200, L100.0100 #### [facility] [address] [place], [address] GLU Normal 74-106 [facility] Comment on above: Result Comment: Canc elled via OM: Order cancelled - Patient discharged Performed By: #### L 501.2300, L500.2500, L501.5200, L100.0100 #### [facility] [address] [place], [address] Potassium Normal 3.5-5.1 [facility] Comment on above: Result Comment: Canc elled via OM: Order cancelled - Patient discharged Performed By: #### L 501.2300, L500.2500, L501.5200, L100.0100 #### [facility] [address] [place], [address] Basic Metabolic Profile (BMP) Normal 136-145 [facility] Comment on above: Result Comment: Canc elled via OM: Order cancelled - Patient discharged Performed By: #### L 501.2300, L500.2500, L501.5200, L100.0100 #### [facility] [address] [place], [address] CBC W/Diff, Automatedon 02-0 -2024 Absolute Neut Normal 2.0-7.7 [facility] Comment on above: Result Comment: Canc elled via OM: Order cancelled - Patient discharged Performed By: #### L 501.2300, L500.2500, L501.5200, L100.0100 #### [facility] [address] [place], [address] HCT Normal 37-47 [facility] Comment on above: Result Comment: Canc elled via OM: Order cancelled - Patient discharged Performed By: #### L 501.2300, L500.2500, L501.5200, L100.0100 #### [facility] [address] [place], [address] HGB Normal 12.0-15.0 [facility] Comment on above: Result Comment: Canc elled via OM: Order cancelled - Patient discharged Performed By: #### L 501.2300, L500.2500, L501.5200, L100.0100 #### [facility] [address] [place], [address] MCH Normal 27.0-32.0 [facility] Comment on above: Result Comment: Canc elled via OM: Order cancelled - Patient discharged Performed By: #### L 501.2300, L500.2500, L501.5200, L100.0100 #### [facility] [address] [place], [address] MCHC Normal 32-36 [facility] Comment on above: Result Comment: Canc elled via OM: Order cancelled - Patient discharged Performed By: #### L 501.2300, L500.2500, L501.5200, L100.0100 #### [facility] [address] [place], [address] MCV Normal 81-99 [facility] Comment on above: Result Comment: Canc elled via OM: Order cancelled - Patient discharged Performed By: #### L 501.2300, L500.2500, L501.5200, L100.0100 #### [facility] [address] [place], [address] NEUT% Normal 47-70 [facility] Comment on above: Result Comment: Canc elled via OM: Order cancelled - Patient discharged Performed By: #### L 501.2300, L500.2500, L501.5200, L100.0100 #### [facility] [address] [place], [address] PLT Normal 150-450 [facility] Comment on above: Result Comment: Canc elled via OM: Order cancelled - Patient discharged Performed By: #### L 501.2300, L500.2500, L501.5200, L100.0100 #### [facility] [address] [place], [address] RBC Normal 4.2-5.4 [facility] Comment on above: Result Comment: Canc elled via OM: Order cancelled - Patient discharged Performed By: #### L 501.2300, L500.2500, L501.5200, L100.0100 #### [facility] [address] [place], [address] RDW CV Normal 11.6-14.6 [facility] Comment on above: Result Comment: Canc elled via OM: Order cancelled - Patient discharged Performed By: #### L 501.2300, L500.2500, L501.5200, L100.0100 #### [facility] [address] [place], [address] RDW SD Normal 35.1-43.9 [facility] Comment on above: Result Comment: Canc elled via OM: Order cancelled - Patient discharged Performed By: #### L 501.2300, L500.2500, L501.5200, L100.0100 #### [facility] [address] [place], [address] WBC Normal 4.4-11.0 [facility] Comment on above: Result Comment: Canc elled via OM: Order cancelled - Patient discharged Performed By: #### L 501.2300, L500.2500, L501.5200, L100.0100 #### [facility] [address] [place], [address] Basic Metabolic Profile (BMP )on 09-29-2024 BUN Normal 7-18 [facility] Comment on above: Result Comment: Canc elled via OM: Order cancelled - Patient discharged Performed By: #### L 501.2300, L500.2500, L501.5200, L100.0100 #### [facility] [address] [place], [address] BUN/CRE Normal 10-20 [facility] Comment on above: Result Comment: Canc elled via OM: Order cancelled - Patient discharged Performed By: #### L 501.2300, L500.2500, L501.5200, L100.0100 #### [facility] [address] [place], [address] CA,Total Normal 8.5-10.1 [facility] Comment on above: Result Comment: Canc elled via OM: Order cancelled - Patient discharged Performed By: #### L 501.2300, L500.2500, L501.5200, L100.0100 #### [facility] [address] [place], [address] CL Normal 98-107 [facility] Comment on above: Result Comment: Canc elled via OM: Order cancelled - Patient discharged Performed By: #### L 501.2300, L500.2500, L501.5200, L100.0100 #### [facility] [address] [place], [address] CO2 Normal 21.0-32.0 [facility] Comment on above: Result Comment: Canc elled via OM: Order cancelled - Patient discharged Performed By: #### L 501.2300, L500.2500, L501.5200, L100.0100 #### [facility] [address] [place], [address] CREAT,SERUM Normal 0.55-1.02 [facility] Comment on above: Result Comment: Canc elled via OM: Order cancelled - Patient discharged Performed By: #### L 501.2300, L500.2500, L501.5200, L100.0100 #### [facility] [address] [place], [address] EST GFR Normal >60 [facility] Comment on above: Result Comment: Canc elled via OM: Order cancelled - Patient discharged Performed By: #### L 501.2300, L500.2500, L501.5200, L100.0100 #### [facility] [address] [place], [address] EST GFR - AA Normal >60 [facility] Comment on above: Result Comment: Canc elled via OM: Order cancelled - Patient discharged Performed By: #### L 501.2300, L500.2500, L501.5200, L100.0100 #### [facility] [address] [place], [address] GAP Normal 5-15 [facility] Comment on above: Result Comment: Canc elled via OM: Order cancelled - Patient discharged Performed By: #### L 501.2300, L500.2500, L501.5200, L100.0100 #### [facility] [address] [place], [address] GLU Normal 74-106 [facility] Comment on above: Result Comment: Canc elled via OM: Order cancelled - Patient discharged Performed By: #### L 501.2300, L500.2500, L501.5200, L100.0100 #### [facility] [address] [place], [address] Potassium Normal 3.5-5.1 [facility] Comment on above: Result Comment: Canc elled via OM: Order cancelled - Patient discharged Performed By: #### L 501.2300, L500.2500, L501.5200, L100.0100 #### [facility] [address] [place], [address] Basic Metabolic Profile (BMP) Normal 136-145 [facility] Comment on above: Result Comment: Canc elled via OM: Order cancelled - Patient discharged Performed By: #### L 501.2300, L500.2500, L501.5200, L100.0100 #### [facility] [address] [place], [address] CBC W/Diff, Automatedon 02-0 Absolute Neut Normal 2.0-7.7 [facility] Comment on above: Result Comment: Canc elled via OM: Order cancelled - Patient discharged Performed By: #### L 501.2300, L500.2500, L501.5200, L100.0100 #### [facility] [address] [place], [address] HCT Normal 37-47 [facility] Comment on above: Result Comment: Canc elled via OM: Order cancelled - Patient discharged Performed By: #### L 501.2300, L500.2500, L501.5200, L100.0100 #### [facility] [address] [place], [address] HGB Normal 12.0-15.0 [facility] Comment on above: Result Comment: Canc elled via OM: Order cancelled - Patient discharged Performed By: #### L 501.2300, L500.2500, L501.5200, L100.0100 #### [facility] [address] [place], [address] MCH Normal 27.0-32.0 [facility] Comment on above: Result Comment: Canc elled via OM: Order cancelled - Patient discharged Performed By: #### L 501.2300, L500.2500, L501.5200, L100.0100 #### [facility] [address] [place], [address] MCHC Normal 32-36 [facility] Comment on above: Result Comment: Canc elled via OM: Order cancelled - Patient discharged Performed By: #### L 501.2300, L500.2500, L501.5200, L100.0100 #### [facility] [address] [place], [address] MCV Normal 81-99 [facility] Comment on above: Result Comment: Canc elled via OM: Order cancelled - Patient discharged Performed By: #### L 501.2300, L500.2500, L501.5200, L100.0100 #### [facility] [address] [place], [address] NEUT% Normal 47-70 [facility] Comment on above: Result Comment: Canc elled via OM: Order cancelled - Patient discharged Performed By: #### L 501.2300, L500.2500, L501.5200, L100.0100 #### [facility] [address] [place], [address] PLT Normal 150-450 [facility] Comment on above: Result Comment: Canc elled via OM: Order cancelled - Patient discharged Performed By: #### L 501.2300, L500.2500, L501.5200, L100.0100 #### [facility] [address] [place], [address] RBC Normal 4.2-5.4 [facility] Comment on above: Result Comment: Canc elled via OM: Order cancelled - Patient discharged Performed By: #### L 501.2300, L500.2500, L501.5200, L100.0100 #### [facility] [address] [place], [address] RDW CV Normal 11.6-14.6 [facility] Comment on above: Result Comment: Canc elled via OM: Order cancelled - Patient discharged Performed By: #### L 501.2300, L500.2500, L501.5200, L100.0100 #### [facility] [address] [place], [address] RDW SD Normal 35.1-43.9 [facility] Comment on above: Result Comment: Canc elled via OM: Order cancelled - Patient discharged Performed By: #### L 501.2300, L500.2500, L501.5200, L100.0100 #### [facility] [address] [place], [address] WBC Normal 4.4-11.0 [facility] Comment on above: Result Comment: Canc elled via OM: Order cancelled - Patient discharged Performed By: #### L 501.2300, L500.2500, L501.5200, L100.0100 #### [facility] [address] [place], [address] Respiratory Cultureon 2024 RESPC Ampicillin can be used for Beta-Lactamase negative isolates. Microorganism Spec Cult Trimeth/Sulfa, Chloramphenicol, Cefotaxime, Ciprofloxacin, Amoxicillin/Clavulani c Acid, and Oral 2nd/3rd Generation Cephalosporins are effective against both Beta-Lactamase positive and Beta-Lactamase negative isolates. Haemophilus influenzae Amount Growth 3+ Beta Lactamase-Reportable Positive Normal [facility] Comment on above: Performed By: #### L 503.6030, L501.9520, L500.4050, L503.6550, L100.0100, L506.1001 #### [facility] [address] [place], [address] Absolute lymphocyte countOrd ered By: Scott Mcneal on 09-28-2024 Lymphocytes Auto (Unsp spec) [#/Vol] 0.56 10*3/uL Low 0.83-4.51 [facility] Absolute neutrophil countOrd ered By: Scott Mcneal on 09-28-2024 Neutrophils (Bld) [#/Vol] 5.5 10*3/uL 2.0-7.7 [facility] Automated lymphocyte count a s percentage of total leukocytesOrdered By: Scott Mcneal on 09-28-2024 Lymphocytes/100 WBC Auto (Unsp spec) 8.5 % Low 19-41 [facility] Basic Metabolic Profile (BMP )on 09-28-2024 BUN/CRE 38.9 RATIO High 10-20 [facility] Comment on above: Performed By: #### L 501.2300, L500.2500, L501.5200, L100.0100 #### [facility] [address] [place], [place], [id number] CA,Total 8.8 mg/dL Normal 8.5-10.1 [facility] Comment on above: Performed By: #### L 501.2300, L500.2500, L501.5200, L100.0100 #### [facility] [address] [place], [address] Chloride [Moles/Vol] 105 mmol/L Normal 98-107 [facility] Comment on above: Performed By: #### L 501.2300, L500.2500, L501.5200, L100.0100 #### [facility] [address] [place], [address] CO2 [Moles/Vol] 27.0 mmol/L Normal 21.0-32.0 [facility] Comment on above: Performed By: #### L 501.2300, L500.2500, L501.5200, L100.0100 #### [facility] [address] [place], [address] Creatinine [Mass/Vol] 0.51 mg/dL Low 0.55-1.02 [facility] Comment on above: Result Comment: The validity of the calculated GFR GFRAA in patients over 70 years has not been determined. Clinical correlation is essential. Performed By: #### L 501.2300, L500.2500, L501.5200, L100.0100 #### [facility] [address] [place], [address] ECRCL 76.35 ml/min Normal [facility] Comment on above: Performed By: #### L 501.2300, L500.2500, L501.5200, L100.0100 #### [facility] [address] [place], [address] EST GFR - AA 154 mL/min Normal >60 [facility] Comment on above: Result Comment: Afri can [place] GFR Calc Performed By: #### L 501.2300, L500.2500, L501.5200, L100.0100 #### [facility] [address] [place], [address] GAP 6 Normal 5-15 [facility] Comment on above: Performed By: #### L 501.2300, L500.2500, L501.5200, L100.0100 #### [facility] [address] [place], [address] GFR/1.73 sq M.predicted among non-blacks MDRD (S/P/Bld) [Vol rate/Area] 127 mL/min/{1.73_m2} Normal >60 [facility] Comment on above: Result Comment: Non- GFR Calc Performed By: #### L 501.2300, L500.2500, L501.5200, L100.0100 #### [facility] [address] [place], [address] Glucose [Mass/Vol] 176 mg/dL High 74-106 [facility] Comment on above: Result Comment: Fast ing Glucose result greater than or equal to 126 mg/dL suggests DIABETES MELLITUS per A.D.A. criteria. Performed By: #### L 501.2300, L500.2500, L501.5200, L100.0100 #### [facility] [address] [place], [address] Potassium [Moles/Vol] 4.2 mmol/L Normal 3.5-5.1 [facility] Comment on above: Performed By: #### L 501.2300, L500.2500, L501.5200, L100.0100 #### [facility] [address] [place], [address] Sodium [Moles/Vol] 138 mmol/L Normal 136-145 [facility] Comment on above: Performed By: #### L 501.2300, L500.2500, L501.5200, L100.0100 #### [facility] [address] [place], [address] Urea nitrogen [Mass/Vol] 20 mg/dL High 7-18 [facility] Comment on above: Performed By: #### L 501.2300, L500.2500, L501.5200, L100.0100 #### [facility] [address] [place], [address] Basophil percentageOrdered B y: Scott Mcneal on 09-28-2024 Basophils/100 WBC (Bld) 0.2 % 0-1 [facility] Blood urea nitrogen (BUN)/cr eatinine ratioOrdered By: Scott Ruizmarcosnicola on 09-28-2024 Urea nitrogen/Creatinine [Mass ratio] 38.9 mg/mg High 10-20 [facility] CBC W/Diff, Automatedon Absolute Lymph 0.56 X10 3/uL Low 0.83-4.51 [facility] Comment on above: Performed By: #### L 501.2300, L500.2500, L501.5200, L100.0100 #### [facility] [address] [place], [address] Absolute Neut 5.5 X10 3/uL Normal 2.0-7.7 [facility] Comment on above: Performed By: #### L 501.2300, L500.2500, L501.5200, L100.0100 #### [facility] [address] [place], [address] Basophils/100 WBC (Bld) 0.2 % Normal 0-1 [facility] Comment on above: Performed By: #### L 501.2300, L500.2500, L501.5200, L100.0100 #### [facility] [address] [place], [address] Eosinophils/100 WBC (Bld) 0.0 % Normal 0-5 [facility] Comment on above: Performed By: #### L 501.2300, L500.2500, L501.5200, L100.0100 #### [facility] [address] [place], [address] Erythrocyte distribution width (RBC) [Ratio] 12.2 % Normal 11.6-14.6 [facility] Comment on above: Performed By: #### L 501.2300, L500.2500, L501.5200, L100.0100 #### [facility] [address] [place], [address] Hematocrit (Bld) [Volume fraction] 33.7 % Low 37-47 [facility] Comment on above: Performed By: #### L 501.2300, L500.2500, L501.5200, L100.0100 #### [facility] [address] [place], [address] Hemoglobin (Bld) [Mass/Vol] 10.8 g/dL Low 12.0-15.0 [facility] Comment on above: Performed By: #### L 501.2300, L500.2500, L501.5200, L100.0100 #### [facility] [address] [place], [address] IG% 0.500 Normal 0.0-0.9 [facility] Comment on above: Result Comment: IG% - Immature Granulocytes (promyelocytes, myelocytes and metamyelocytes) > 1% indicates that a LEFT SHIFT is Present. Performed By: #### L 501.2300, L500.2500, L501.5200, L100.0100 #### [facility] [address] [place], [address] Lymphocytes/100 WBC (Bld) 8.5 % Low 19-41 [facility] Comment on above: Performed By: #### L 501.2300, L500.2500, L501.5200, L100.0100 #### [facility] [address] [place], [address] MCH (RBC) [Entitic mass] 34.3 pg High 27.0-32.0 [facility] Comment on above: Performed By: #### L 501.2300, L500.2500, L501.5200, L100.0100 #### [facility] [address] [place], [address] MCHC (RBC) [Mass/Vol] 32.0 g/dL Normal 32-36 [facility] Comment on above: Performed By: #### L 501.2300, L500.2500, L501.5200, L100.0100 #### [facility] [address] [place], [address] MCV (RBC) [Entitic vol] 107.0 fL High 81-99 [facility] Comment on above: Performed By: #### L 501.2300, L500.2500, L501.5200, L100.0100 #### [facility] [address] [place], [address] Monocytes/100 WBC (Bld) 7.6 % Normal 0-10 [facility] Comment on above: Performed By: #### L 501.2300, L500.2500, L501.5200, L100.0100 #### [facility] [address] [place], [address] Neutrophils/100 WBC (Bld) 83.2 % High 47-70 [facility] Comment on above: Performed By: #### L 501.2300, L500.2500, L501.5200, L100.0100 #### [facility] [address] [place], [address] Nucleated RBC (Bld) [#/Vol] 0 10*3/uL Normal 0-5 [facility] Comment on above: Performed By: #### L 501.2300, L500.2500, L501.5200, L100.0100 #### [facility] [address] [place], [address] Platelet mean volume (Bld) [Entitic vol] 10.2 fL Normal 6.2-12.0 [facility] Comment on above: Performed By: #### L 501.2300, L500.2500, L501.5200, L100.0100 #### [facility] [address] [place], [address] Platelets (Bld) [#/Vol] 210 10*3/uL Normal 150-450 [facility] Comment on above: Performed By: #### L 501.2300, L500.2500, L501.5200, L100.0100 #### [facility] [address] [place], [address] RBC (Bld) [#/Vol] 3.15 10*6/uL Low 4.2-5.4 [facility] Comment on above: Performed By: #### L 501.2300, L500.2500, L501.5200, L100.0100 #### [facility] [address] [place], [address] RDW SD 47.8 fl High 35.1-43.9 [facility] Comment on above: Performed By: #### L 501.2300, L500.2500, L501.5200, L100.0100 #### [facility] [address] [place], [address] WBC (Bld) [#/Vol] 6.6 10*3/uL Normal 4.4-11.0 [facility] Comment on above: Performed By: #### L 501.2300, L500.2500, L501.5200, L100.0100 #### [facility] [address] [place], [address] Carbon dioxide measurementOr dered By: Scott Mcneal on 09-28-2024 CO2 [Moles/Vol] 27.0 mmol/L 21.0-32.0 [facility] Chloride measurementOrdered By: Scott Mcneal on 09-28-2024 Chloride [Moles/Vol] 105 mmol/L 98-107 [facility] Eosinophil percentageOrdered By: Scott Mcneal on 09-28-2024 Eosinophils/100 WBC (Bld) 0.0 % 0-5 [facility] Erythrocyte distribution wid th ratioOrdered By: Scott Mcneal on 09-28-2024 Erythrocyte distribution width (RBC) [Ratio] 12.2 % 11.6-14.6 [facility] Erythrocyte distribution wid th standard deviationOrdered By: Scott Mcneal on 09-28-2024 Erythrocyte distribution width (RBC) [Ratio] 47.8 fl High 35.1-43.9 [facility] Glomerular filtration rate ( GFR) estimationOrdered By: Scott Mcneal on 09-28-2024 GFR/1.73 sq M.predicted among non-blacks MDRD (S/P/Bld) [Vol rate/Area] 127 mL/min/{1.73_m2} >60 [facility] Comment on above: Non- GFR Calc Glucose measurementOrdered B y: Scott Mcneal on 09-28-2024 Glucose [Mass/Vol] 176 mg/dL High 74-106 [facility] Comment on above: Fasting Glucose resu lt greater than or equal to 126 mg/dL suggests DIABETES MELLITUS per A.D.A. criteria. Hematocrit Auto (Bld) [Volum e fraction]Ordered By: Scott Mcneal on 09-28-2024 Hematocrit (Bld) [Volume fraction] 33.7 % Low 37-47 [facility] Hemoglobin measurementOrdere d By: Scott Mcneal on 09-28-2024 Hemoglobin (Bld) [Mass/Vol] 10.8 g/dL Low 12.0-15.0 [facility] Immature granulocytes/100 WB C Auto (Bld)Ordered By: Scott Mcenal on 09-28-2024 Immature granulocytes/100 WBC (Bld) 0.500 % 0.0-0.9 [facility] Comment on above: IG% - Immature Granu locytes (promyelocytes, myelocytes and metamyelocytes) > 1% indicates that a LEFT SHIFT is Present. MCV (mean corpuscular volume ) determinationOrdered By: Scott Mcneal on 09-28-2024 MCV (RBC) [Entitic vol] 107.0 fL High 81-99 [facility] Magnesiumon 09-28-2024 Magnesium [Mass/Vol] 2.7 mg/dL High 1.6-2.6 [facility] Comment on above: Performed By: #### L 501.2300, L500.2500, L501.5200, L100.0100 #### [facility] [address] [place], [place], [id number] Magnesium measurementOrdered By: Scott Mcneal on 09-28-2024 Magnesium [Mass/Vol] 2.7 mg/dL High 1.6-2.6 [facility] Mean corpuscular hemoglobin (MCH) determinationOrdered By: Scott Mcneal on 09-28-2024 MCH (RBC) [Entitic mass] 34.3 pg High 27.0-32.0 [facility] Mean corpuscular hemoglobin concentration (MCHC) determinationOrdered By: Scott Mcneal on 09-28-2024 MCHC (RBC) [Mass/Vol] 32.0 g/dL 32-36 [facility] Mean platelet volume determi nationOrdered By: Scott Mcneal on 09-28-2024 Platelet mean volume (Bld) [Entitic vol] 10.2 fL 6.2-12.0 [facility] Monocyte percentageOrdered B y: Scott cMneal on 09-28-2024 Monocytes/100 WBC (Bld) 7.6 % 0-10 [facility] Neutrophil percentageOrdered By: Scott Mcneal on 09-28-2024 Neutrophils/100 WBC (Bld) 83.2 % High 47-70 [facility] Nucleated red blood cell per centageOrdered By: Scott Mcneal on 09-28-2024 Nucleated RBC/100 WBC (Bld) [Ratio] 0 % 0-5 [facility] Phosphoruson 09-28-2024 Phosphate [Mass/Vol] 3.9 mg/dL Normal 2.5-4.9 [facility] Comment on above: Performed By: #### L 501.2300, L500.2500, L501.5200, L100.0100 #### [facility] [address] [place], [address] Platelet countOrdered By: Patric Mcneal on 09-28-2024 Platelets (Bld) [#/Vol] 210 10*3/uL 150-450 [facility] Potassium measurementOrdered By: Scott Mcneal on 09-28-2024 Potassium [Moles/Vol] 4.2 mmol/L 3.5-5.1 [facility] RBC Auto (Bld) [#/Vol]Ordere d By: Scott Mcneal on 09-28-2024 RBC (Bld) [#/Vol] 3.15 10*6/uL Low 4.2-5.4 [facility] Serum anion gap measurementO rdered By: Scott Mcneal on 09-28-2024 Anion gap [Moles/Vol] 6 mmol/L 5-15 [facility] Serum or plasma calcium kamlesh urement (mass/volume)Ordered By: Scott Mcneal on 09-28-2024 Calcium [Mass/Vol] 8.8 mg/dL 8.5-10.1 [facility] Serum or plasma creatinine m easurement (mass/volume)Ordered By: Scott Mcneal on 09-28-2024 Creatinine [Mass/Vol] 0.51 mg/dL Low 0.55-1.02 [facility] Comment on above: The validity of the calculated GFR & GFRAA in patients over 70 years has not been determined. Clinical correlation is essential. Serum or plasma urea nitroge n measurement (mass/volume)Ordered By: Scott Mcneal on 09-28-2024 Urea nitrogen [Mass/Vol] 20 mg/dL High 7-18 [facility] Sodium levelOrdered By: Nazario Mcneal on 09-28-2024 Sodium [Moles/Vol] 138 mmol/L 136-145 [facility] White blood cell (WBC) count Ordered By: Scott Mcneal on 09-28-2024 WBC (Bld) [#/Vol] 6.6 10*3/uL 4.4-11.0 [facility] Albumin to globulin ratioOrd ered By: Esperanza Myers on 09-27-2024 Albumin/Globulin [Mass ratio] 0.7 {ratio} Low 0.9-2.4 [facility] Bilirubin, totalOrdered By: Esperanza Myers on 09-27-2024 Bilirubin [Mass/Vol] 0.20 mg/dL 0.20-1.00 [facility] Comment on above: For patients on eltr ombopag therapy, use of Dimension [place] TBIL is not recommended. CBC W/Diff, Automatedon Absolute Lymph 0.31 X10 3/uL Low 0.83-4.51 [facility] Comment on above: Performed By: #### L 501.2300, L500.2500, L501.5200, L100.0100 #### [facility] [address] [place], [address] Absolute Neut 2.7 X10 3/uL Normal 2.0-7.7 [facility] Comment on above: Performed By: #### L 501.2300, L500.2500, L501.5200, L100.0100 #### [facility] [address] [place], [address] Basophils/100 WBC (Bld) 0.3 % Normal 0-1 [facility] Comment on above: Performed By: #### L 501.2300, L500.2500, L501.5200, L100.0100 #### [facility] [address] [place], [address] Eosinophils/100 WBC (Bld) 0.0 % Normal 0-5 [facility] Comment on above: Performed By: #### L 501.2300, L500.2500, L501.5200, L100.0100 #### [facility] [address] [place], [address] Erythrocyte distribution width (RBC) [Ratio] 12.0 % Normal 11.6-14.6 [facility] Comment on above: Performed By: #### L 501.2300, L500.2500, L501.5200, L100.0100 #### [facility] [address] [place], [address] Hematocrit (Bld) [Volume fraction] 33.4 % Low 37-47 [facility] Comment on above: Performed By: #### L 501.2300, L500.2500, L501.5200, L100.0100 #### [facility] [address] [place], [address] Hemoglobin (Bld) [Mass/Vol] 10.8 g/dL Low 12.0-15.0 [facility] Comment on above: Performed By: #### L 501.2300, L500.2500, L501.5200, L100.0100 #### [facility] [address] [place], [address] IG% 1.000 High 0.0-0.9 [facility] Comment on above: Result Comment: IG% - Immature Granulocytes (promyelocytes, myelocytes and metamyelocytes) > 1% indicates that a LEFT SHIFT is Present. Performed By: #### L 501.2300, L500.2500, L501.5200, L100.0100 #### [facility] [address] [place], [address] Lymphocytes/100 WBC (Bld) 9.8 % Low 19-41 [facility] Comment on above: Performed By: #### L 501.2300, L500.2500, L501.5200, L100.0100 #### [facility] [address] [place], [address] MCH (RBC) [Entitic mass] 34.2 pg High 27.0-32.0 [facility] Comment on above: Performed By: #### L 501.2300, L500.2500, L501.5200, L100.0100 #### [facility] [address] [place], [address] MCHC (RBC) [Mass/Vol] 32.3 g/dL Normal 32-36 [facility] Comment on above: Performed By: #### L 501.2300, L500.2500, L501.5200, L100.0100 #### [facility] [address] [place], [address] MCV (RBC) [Entitic vol] 105.7 fL High 81-99 [facility] Comment on above: Performed By: #### L 501.2300, L500.2500, L501.5200, L100.0100 #### [facility] [address] [place], [address] Monocytes/100 WBC (Bld) 4.4 % Normal 0-10 [facility] Comment on above: Performed By: #### L 501.2300, L500.2500, L501.5200, L100.0100 #### [facility] [address] [place], [address] Neutrophils/100 WBC (Bld) 84.5 % High 47-70 [facility] Comment on above: Performed By: #### L 501.2300, L500.2500, L501.5200, L100.0100 #### [facility] [address] [place], [address] Nucleated RBC (Bld) [#/Vol] 0 10*3/uL Normal 0-5 [facility] Comment on above: Performed By: #### L 501.2300, L500.2500, L501.5200, L100.0100 #### [facility] [address] [place], [address] Platelet mean volume (Bld) [Entitic vol] 10.0 fL Normal 6.2-12.0 [facility] Comment on above: Performed By: #### L 501.2300, L500.2500, L501.5200, L100.0100 #### [facility] [address] [place], [address] Platelets (Bld) [#/Vol] 172 10*3/uL Normal 150-450 [facility] Comment on above: Performed By: #### L 501.2300, L500.2500, L501.5200, L100.0100 #### [facility] [address] [place], [address] RBC (Bld) [#/Vol] 3.16 10*6/uL Low 4.2-5.4 [facility] Comment on above: Performed By: #### L 501.2300, L500.2500, L501.5200, L100.0100 #### [facility] [address] [place], [address] RDW SD 47.5 fl High 35.1-43.9 [facility] Comment on above: Performed By: #### L 501.2300, L500.2500, L501.5200, L100.0100 #### [facility] [address] [place], [address] WBC (Bld) [#/Vol] 3.2 10*3/uL Low 4.4-11.0 [facility] Comment on above: Performed By: #### L 501.2300, L500.2500, L501.5200, L100.0100 #### [facility] [address] [place], [address] Comprehensive Metabolic Prof [facility] 09-27-2024 Albumin [Mass/Vol] 2.4 g/dL Low 3.2-5.0 [facility] Comment on above: Performed By: #### L 501.2300, L500.2500, L501.5200, L100.0100 #### [facility] [address] [place], [address] Albumin/Globulin [Mass ratio] 0.7 {ratio} Low 0.9-2.4 [facility] Comment on above: Performed By: #### L 501.2300, L500.2500, L501.5200, L100.0100 #### [facility] [address] [place], [address] ALK P 65 U/L Normal 45-117 [facility] Comment on above: Performed By: #### L 501.2300, L500.2500, L501.5200, L100.0100 #### [facility] [address] [place], [address] ALT [Catalytic activity/Vol] 14 U/L Normal 13-56 [facility] Comment on above: Performed By: #### L 501.2300, L500.2500, L501.5200, L100.0100 #### [facility] [address] [place], [address] AST [Catalytic activity/Vol] 12 U/L Low 15-37 [facility] Comment on above: Performed By: #### L 501.2300, L500.2500, L501.5200, L100.0100 #### [facility] [address] [place], [address] Bilirubin [Mass/Vol] 0.20 mg/dL Normal 0.20-1.00 [facility] Comment on above: Result Comment: For patients on eltrombopag therapy, use of Dimension [place] TBIL is not recommended. Performed By: #### L 501.2300, L500.2500, L501.5200, L100.0100 #### [facility] [address] [place], [address] BUN/CRE 33.5 RATIO High 10-20 [facility] Comment on above: Performed By: #### L 501.2300, L500.2500, L501.5200, L100.0100 #### [facility] [address] [place], [address] CA,Total 8.5 mg/dL Normal 8.5-10.1 [facility] Comment on above: Performed By: #### L 501.2300, L500.2500, L501.5200, L100.0100 #### [facility] [address] [place], [address] Chloride [Moles/Vol] 106 mmol/L Normal 98-107 [facility] Comment on above: Performed By: #### L 501.2300, L500.2500, L501.5200, L100.0100 #### [facility] [address] [place], [address] CO2 [Moles/Vol] 27.0 mmol/L Normal 21.0-32.0 [facility] Comment on above: Performed By: #### L 501.2300, L500.2500, L501.5200, L100.0100 #### [facility] [address] [place], [address] Creatinine [Mass/Vol] 0.48 mg/dL Low 0.55-1.02 [facility] Comment on above: Result Comment: The validity of the calculated GFR GFRAA in patients over 70 years has not been determined. Clinical correlation is essential. Performed By: #### L 501.2300, L500.2500, L501.5200, L100.0100 #### [facility] [address] [place], [address] ECRCL 76.35 ml/min Normal [facility] Comment on above: Performed By: #### L 501.2300, L500.2500, L501.5200, L100.0100 #### [facility] [address] [place], [address] EST GFR - AA 167 mL/min Normal >60 [facility] Comment on above: Result Comment: Afri can Venezuelan GFR Calc Performed By: #### L 501.2300, L500.2500, L501.5200, L100.0100 #### [facility] [address] [place], [address] GAP 6 Normal 5-15 [facility] Comment on above: Performed By: #### L 501.2300, L500.2500, L501.5200, L100.0100 #### [facility] [address] [place], [address] GFR/1.73 sq M.predicted among non-blacks MDRD (S/P/Bld) [Vol rate/Area] 138 mL/min/{1.73_m2} Normal >60 [facility] Comment on above: Result Comment: Non- GFR Calc Performed By: #### L 501.2300, L500.2500, L501.5200, L100.0100 #### [facility] [address] [place], [address] Globulin (S) [Mass/Vol] 3.5 g/dL Normal 2.2-4.2 [facility] Comment on above: Performed By: #### L 501.2300, L500.2500, L501.5200, L100.0100 #### [facility] [address] [place], [address] Glucose [Mass/Vol] 164 mg/dL High 74-106 [facility] Comment on above: Result Comment: Fast ing Glucose result greater than or equal to 126 mg/dL suggests DIABETES MELLITUS per A.D.A. criteria. Performed By: #### L 501.2300, L500.2500, L501.5200, L100.0100 #### [facility] [address] [place], [address] Potassium [Moles/Vol] 3.8 mmol/L Normal 3.5-5.1 [facility] Comment on above: Performed By: #### L 501.2300, L500.2500, L501.5200, L100.0100 #### [facility] [address] [place], [address] Sodium [Moles/Vol] 139 mmol/L Normal 136-145 [facility] Comment on above: Performed By: #### L 501.2300, L500.2500, L501.5200, L100.0100 #### [facility] [address] [place], [address] T PROT 5.9 g/dL Low 6.4-8.2 [facility] Comment on above: Performed By: #### L 501.2300, L500.2500, L501.5200, L100.0100 #### [facility] [address] [place], [address] Urea nitrogen [Mass/Vol] 16 mg/dL Normal 7-18 [facility] Comment on above: Performed By: #### L 501.2300, L500.2500, L501.5200, L100.0100 #### [facility] [address] [place], [address] Gram Stainon 09-27-2024 GS Acceptable Specimen? Yes (<25 Epithelial cells per/lpf) Gram Stain 3+ White Blood Cells 1+ Gram positive cocci in clusters 2+ Gram negative cocco bacillus [facility] Comment on above: Performed By: #### L 503.6030, L501.9520, L500.4050, L503.6550, L100.0100, L506.1001 #### [facility] [address] [place], [address] Laboratory - Chemistry and C hemistry - challengeOrdered By: Esperanza Myers on 09-27-2024 AST [Catalytic activity/Vol] 12 U/L Low 15-37 [facility] Legionella Antigen Urineon 0 09-27-2024 LEGU URINE, CLEAN CATCH Legionella Antigen result interpretation: L pneumo Ag Ur Ql Negative Presumptive negative for Legionella pneumophila serogroup 1 antigen in urine, suggesting no recent or current infection. Legionella Ag, Urine Negative (See interpretation below) [facility] Comment on above: Performed By: #### L 501.2300, L500.2500, L501.5200, L100.0100 #### [facility] [address] [place], [place], [address] RESPIRATORY PANEL MOLECULARo n 09-27-2024 RP PANEL [...] Not Detected RSV B Not Detected Normal [facility] Comment on above: Performed By: #### L 503.6030, L501.9520, L500.4050, L503.6550, L100.0100, L506.1001 #### [facility] [address] [place], [place], [address] Serum globulin measurementOr dered By: Esperanza Lucia on 09-27-2024 Globulin (S) [Mass/Vol] 3.5 g/dL 2.2-4.2 [facility] Serum or plasma alanine joshi otransferase (ALT) measurementOrdered By: Esperanza Lucia on 09-27-2024 ALT [Catalytic activity/Vol] 14 U/L 13-56 [facility] Serum or plasma albumin kamlesh urement (mass/volume)Ordered By: Esperanza Lucia on 09-27-2024 Albumin [Mass/Vol] 2.4 g/dL Low 3.2-5.0 [facility] Serum or plasma alkaline mena sphatase measurementOrdered By: [facility] on 09-27-2024 ALP [Catalytic activity/Vol] 65 U/L 45-117 [facility] Strep pneumoniae Antig(UR,CS F)on 09-27-2024 STPAG URINE INTERPRETATION Strep pneumoniae Antig(UR,CSF) Negative Urine Presumptive negative for pneumococcal pneumonia, suggesting no current or recent pneumococcal infection. Infection due to S pneumoniae cannot be ruled out since the antigen present in the sample may be below the detection limit of the test. Strep pneumo Test Negative URINE (See interpretation below) Normal [facility] Comment on above: Performed By: #### L 501.2300, L500.2500, L501.5200, L100.0100 #### [facility] [address] [place], [address] Total proteinOrdered By: Jeimy Myers on 09-27-2024 Protein [Mass/Vol] 5.9 g/dL Low 6.4-8.2 [facility] Urine Legionella pneumophila antigen detectionOrdered By: Esperanza Myers on 09-27-2024 L. pneumophila Ag Ql (U) [facility] 12 Lead EKGon 09-26-2024 12 Lead EKG [facility] [address] [place] [address] 12 Lead EKG 09/26/24 1625 MR#: [id number] Acct: [id number] Name: ANGELES LARIOS Rep #: [id number] : 1960 64 From: Efrain Samuel MD Attending Dr: Dr. Scott Mcneal MD Status: ADM IN Ordering Dr: Joaquín Patel Date: 09/26/24 Location: [facility] Sex: F C Admitted: 09/26/24 Test Reason [...] Abnormal ECG Confirmed by LAUREN FAROOQ, EFRAIN ([id number]), editorial writer ELVIRA RODRÍGUEZ ([id number]) on 09/27/2024 8:55:15 AM Referred By: Esperanza Myers Confirmed By: EFRAIN SAMUEL MD 09/27/24 0855 Date Efrain Samuel MD CC: MARIAN Patel; Dr. Esperanza Myers MD; Dr. Scott Mcneal MD; Dr. Martin Gutierrez MD Signed Normal [facility] Basic Metabolic Profile (BMP )on 09-26-2024 BUN/CRE 26.1 RATIO High 10-20 [facility] Comment on above: Performed By: #### L 503.6030, L501.9520, L500.4050, L503.6550, L100.0100, L506.1001 #### [facility] [address] [place], [address] CA,Total 8.9 mg/dL Normal 8.5-10.1 [facility] Comment on above: Performed By: #### L 503.6030, L501.9520, L500.4050, L503.6550, L100.0100, L506.1001 #### [facility] [address] [place], [address] Chloride [Moles/Vol] 99 mmol/L Normal 98-107 [facility] Comment on above: Performed By: #### L 503.6030, L501.9520, L500.4050, L503.6550, L100.0100, L506.1001 #### [facility] [address] [place], [address] CO2 [Moles/Vol] 28.0 mmol/L Normal 21.0-32.0 [facility] Comment on above: Performed By: #### L 503.6030, L501.9520, L500.4050, L503.6550, L100.0100, L506.1001 #### [facility] [address] [place], [address] Creatinine [Mass/Vol] 0.69 mg/dL Normal 0.55-1.02 [facility] Comment on above: Result Comment: The validity of the calculated GFR GFRAA in patients over 70 years has not been determined. Clinical correlation is essential. Performed By: #### L 503.6030, L501.9520, L500.4050, L503.6550, L100.0100, L506.1001 #### [facility] [address] [place], [address] ECRCL 76.53 ml/min Normal [facility] Comment on above: Performed By: #### L 503.6030, L501.9520, L500.4050, L503.6550, L100.0100, L506.1001 #### [facility] [address] [place], [address] EST GFR - AA 109 mL/min Normal >60 [facility] Comment on above: Result Comment: Afri can Venezuelan GFR Calc Performed By: #### L 503.6030, L501.9520, L500.4050, L503.6550, L100.0100, L506.1001 #### [facility] [address] [place], [address] GAP 8 Normal 5-15 [facility] Comment on above: Performed By: #### L 503.6030, L501.9520, L500.4050, L503.6550, L100.0100, L506.1001 #### [facility] [address] [place], [address] GFR/1.73 sq M.predicted among non-blacks MDRD (S/P/Bld) [Vol rate/Area] 90 mL/min/{1.73_m2} Normal >60 [facility] Comment on above: Result Comment: Non- GFR Calc Performed By: #### L 503.6030, L501.9520, L500.4050, L503.6550, L100.0100, L506.1001 #### [facility] [address] [place], [address] Glucose [Mass/Vol] 125 mg/dL High 74-106 [facility] Comment on above: Result Comment: Fast ing Glucose result from 100 to 125 mg/dL suggests IMPAIRED HOMEOSTASIS per A.D.A. criteria. Performed By: #### L 503.6030, L501.9520, L500.4050, L503.6550, L100.0100, L506.1001 #### [facility] [address] [place], [address] Potassium [Moles/Vol] 3.4 mmol/L Low 3.5-5.1 [facility] Comment on above: Result Comment: Slig ht Hemolysis, Result may be falsely increased. Performed By: #### L 503.6030, L501.9520, L500.4050, L503.6550, L100.0100, L506.1001 #### [facility] [address] [place], [address] Sodium [Moles/Vol] 135 mmol/L Low 136-145 [facility] Comment on above: Performed By: #### L 503.6030, L501.9520, L500.4050, L503.6550, L100.0100, L506.1001 #### [facility] [address] [place], [address] Urea nitrogen [Mass/Vol] 18 mg/dL Normal 7-18 [facility] Comment on above: Performed By: #### L 503.6030, L501.9520, L500.4050, L503.6550, L100.0100, L506.1001 #### [facility] [address] [place], [address] Bedside Glucoseon 09-26-2024 FINGERSTICK GLU 129 mg/dL High 74-106 [facility] Comment on above: Result Comment: SEAN CLARK OF PATIENT CARE PER NURSING PROTOCOL Performed By: #### L 503.6030, L501.9520, L500.4050, L503.6550, L100.0100, L506.1001 #### [facility] [address] [place], [address] Blood cultureOrdered By: Dee Dee Patel on 09-26-2024 Bacteria identified Cx Nom (Bld) No growth in 5 days. [facility] CBC W/Diff, Automatedon Absolute Lymph 0.91 X10 3/uL Normal 0.83-4.51 [facility] Comment on above: Performed By: #### L 503.6030, L501.9520, L500.4050, L503.6550, L100.0100, L506.1001 #### [facility] [address] [place], [address] Absolute Neut 3.6 X10 3/uL Normal 2.0-7.7 [facility] Comment on above: Performed By: #### L 503.6030, L501.9520, L500.4050, L503.6550, L100.0100, L506.1001 #### [facility] [address] [place], [address] Basophils/100 WBC (Bld) 0.2 % Normal 0-1 [facility] Comment on above: Performed By: #### L 503.6030, L501.9520, L500.4050, L503.6550, L100.0100, L506.1001 #### [facility] [address] [place], [address] Eosinophils/100 WBC (Bld) 0.0 % Normal 0-5 [facility] Comment on above: Performed By: #### L 503.6030, L501.9520, L500.4050, L503.6550, L100.0100, L506.1001 #### [facility] [address] [place], [address] Erythrocyte distribution width (RBC) [Ratio] 12.1 % Normal 11.6-14.6 [facility] Comment on above: Performed By: #### L 503.6030, L501.9520, L500.4050, L503.6550, L100.0100, L506.1001 #### [facility] [address] [place], [address] Hematocrit (Bld) [Volume fraction] 39.0 % Normal 37-47 [facility] Comment on above: Performed By: #### L 503.6030, L501.9520, L500.4050, L503.6550, L100.0100, L506.1001 #### [facility] [address] [place], [address] Hemoglobin (Bld) [Mass/Vol] 13.0 g/dL Normal 12.0-15.0 [facility] Comment on above: Performed By: #### L 503.6030, L501.9520, L500.4050, L503.6550, L100.0100, L506.1001 #### [facility] [address] [place], [address] IG% 0.800 Normal 0.0-0.9 [facility] Comment on above: Result Comment: IG% - Immature Granulocytes (promyelocytes, myelocytes and metamyelocytes) > 1% indicates that a LEFT SHIFT is Present. Performed By: #### L 503.6030, L501.9520, L500.4050, L503.6550, L100.0100, L506.1001 #### [facility] [address] [place], [address] Lymphocytes/100 WBC (Bld) 17.4 % Low 19-41 [facility] Comment on above: Performed By: #### L 503.6030, L501.9520, L500.4050, L503.6550, L100.0100, L506.1001 #### [facility] [address] [place], [address] MCH (RBC) [Entitic mass] 34.8 pg High 27.0-32.0 [facility] Comment on above: Performed By: #### L 503.6030, L501.9520, L500.4050, L503.6550, L100.0100, L506.1001 #### [facility] [address] [place], [address] MCHC (RBC) [Mass/Vol] 33.3 g/dL Normal 32-36 [facility] Comment on above: Performed By: #### L 503.6030, L501.9520, L500.4050, L503.6550, L100.0100, L506.1001 #### [facility] [address] [place], [address] MCV (RBC) [Entitic vol] 104.3 fL High 81-99 [facility] Comment on above: Performed By: #### L 503.6030, L501.9520, L500.4050, L503.6550, L100.0100, L506.1001 #### [facility] [address] [place], [address] Monocytes/100 WBC (Bld) 13.2 % High 0-10 [facility] Comment on above: Performed By: #### L 503.6030, L501.9520, L500.4050, L503.6550, L100.0100, L506.1001 #### [facility] [address] [place], [address] Neutrophils/100 WBC (Bld) 68.4 % Normal 47-70 [facility] Comment on above: Performed By: #### L 503.6030, L501.9520, L500.4050, L503.6550, L100.0100, L506.1001 #### [facility] [address] [place], [address] Nucleated RBC (Bld) [#/Vol] 0 10*3/uL Normal 0-5 [facility] Comment on above: Performed By: #### L 503.6030, L501.9520, L500.4050, L503.6550, L100.0100, L506.1001 #### [facility] [address] [place], [address] Platelet mean volume (Bld) [Entitic vol] 10.3 fL Normal 6.2-12.0 [facility] Comment on above: Performed By: #### L 503.6030, L501.9520, L500.4050, L503.6550, L100.0100, L506.1001 #### [facility] [address] [place], [address] Platelets (Bld) [#/Vol] 209 10*3/uL Normal 150-450 [facility] Comment on above: Performed By: #### L 503.6030, L501.9520, L500.4050, L503.6550, L100.0100, L506.1001 #### [facility] [address] [place], [address] RBC (Bld) [#/Vol] 3.74 10*6/uL Low 4.2-5.4 [facility] Comment on above: Performed By: #### L 503.6030, L501.9520, L500.4050, L503.6550, L100.0100, L506.1001 #### [facility] [address] [place], [address] RDW SD 46.0 fl High 35.1-43.9 [facility] Comment on above: Performed By: #### L 503.6030, L501.9520, L500.4050, L503.6550, L100.0100, L506.1001 #### [facility] [address] [place], [address] WBC (Bld) [#/Vol] 5.2 10*3/uL Normal 4.4-11.0 [facility] Comment on above: Performed By: #### L 503.6030, L501.9520, L500.4050, L503.6550, L100.0100, L506.1001 #### [facility] [address] [place], [address] Chest PA and Lateralon 09-26 Chest PA and Lateral [facility] Imaging Services [address] [place] [address] Chest PA and Lateral MR#: [id number] Acct: [id number] Name: ANGELES LARIOS Rep #: [id number] : 1960 F 64 From: Stephen Velásquez MD PCP: Dr. 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 Reading Location: [facility] CC: HONING MACHINE OPERATOR SEMIAUTOMATIC-Andry Patel; Dr. Martin Gutierrez MD Beamer Hand: Signed Normal [facility] Emergency Department Summary on 09-26-2024 Emergency Department Summary [facility] Medical Records Department [address] [place] [address] Emergency Department Summary 09/26/24 MR#: [id number] Acct: [id number] Name: ANGELES LARIOS Rep #: [id number] : 1960 64 From: Rafita Ruiz DO PCP: Dr. Martin Gutierrez MD Status:ADM IN Location: [facility] [id number] Patient was seen and examined with nurse [...] tired and is sleeping all the time. [facility] Medical History (Updated 09/26/24 @ 18:47 [...] stenosis Dysarthria Atherosclerosis of coronary artery of [place] heart without angina pectoris Essential (primary) hypertension [...] 100 mg (more content not included)... Normal [facility] deOrdered By: Rafita Ruiz on 09-26-2024 Glucose [Mass/Vol] 129 mg/dL High 74-106 [facility] Comment on above: MANAGEMENT OF PATIEN T CARE PER NURSING PROTOCOL Gram stainOrdered By: Esperanza Myers on 09-26-2024 Microscopic observation Gram stain Nom (Unsp spec) [facility] H AND P Exam - [facility] 09-26-2024 H&P Exam - Hospitalist [facility] Medical Records Department [address] [place] [address] H P Exam - Hospitalist 09/26/241921 MR#: [id number] Acct: [id number] Name: ANGELES LARIOS Rep #: [id number] : 1960 64 From: Esperanza Myers MD PCP: Dr. Martin Gutierrez MD Status:ADM IN Location: [facility] OC922-2 HPI - General General Date of Admission: [...] IBS, carotid disease who presents to the [facility] ED on 09/26/2024 with progressively worsening fatigue, [...] as Solu-Medrol 60 mg IV x 1. [facility] History Tobacco use disorder, continuous Iron deficiency anemia due to chronic blood loss History of stress test Depression Hypothyroidism GERD (gastroesophageal reflux disease) Smoker Coronary artery disease Hypertension DVT (deep venous thrombosis) TIA (transient ischemic attack) Anemia Macrocytosis Nicotine dependence Chronic GI bleeding Peripheral vascular disease Non-rheumatic aortic stenosis Dysarthria Atherosclerosis of coronary artery of [place] heart without angina pectoris Essential (primary) hypertension [...] PO DAILY 09/26/24 Unknown H istory vitamins A,C,U-htwn-lhpxwf 4,296 1 cap PO DAILY 09/26/24 Unknown Hi story mcg-226 mg-90 mg capsule (PreserVision AREDS) Allergy/AdvReac Type Severity Reaction Status Date / Time atorvastatin (From Lipitor) AdvReac Severe Other Verified 09/26/24 16:04 codeine AdvReac Severe Other Verified 09/26/24 16:04 Family History Father , at age 38, from [place] Myocardial infarction cardiomopathy Mother Atrial fibrillation Hypertension Hyperlipidemia Diabetes Brother CAD (coronary artery (more content not included)... Normal [facility] Influenza virus A and B and SARS-CoV-2 (COVID-19) and Respiratory syncytial virus RNAOrdered By: Joaquín Patel on 09-26-2024 SARS-CoV-2 (COVID-19) RNA RENATE+probe Ql (Unsp spec) Influenzae A Abnormal [facility] Lactic Acidon 09-26-2024 Lactate [Moles/Vol] 1.6 mmol/L Normal 0.4-1.9 [facility] Comment on above: Order Comment: Y Performed By: #### L 501.2300, L500.2500, L501.5200, L100.0100 #### [facility] [address] [place] [address], [address] Lactic acid measurementOrder ed By: Joaquín Patel on 09-26-2024 Lactate [Moles/Vol] 1.6 mmol/L 0.4-2.0 [facility] M100.678on 09-26-2024 SARS-CoV-2 (COVID-19) Ab IA Ql Normal Reference Range = Negative FLUABV+SARS-CoV-2+RSV Pnl Resp RENATE+probe GeneXpert Instrument, PCR method FLUABV+SARS-CoV-2+RSV Pnl Resp RENATE+probe Copy of report sent to Infection Control Printer [id number] 09/26/24 6[facility]ULTS CALLED TO STEVENSON LEVIN 09/26/24 1738 Edith Vergara. REPORT READ BACK BY SAME. SARS-CoV-2 (COVID 19) Negative INFLUENZA A A Positive A INFLUENZA B Negative RSV PCR Negative INFLUENZAE A Normal [facility] Comment on above: Performed By: #### L 503.6030, L501.9520, L500.4050, L503.6550, L100.0100, L506.1001 #### [facility] [address] [place], [address] Magnesiumon 09-26-2024 Magnesium [Mass/Vol] 2.3 mg/dL Normal 1.6-2.6 [facility] Comment on above: Order Comment: Comme nts: may add to ED labs Result Comment: Mode rate Hemolysis, Result may be falsely increased. Performed By: #### L 501.2300, L500.2500, L501.5200, L100.0100 #### [facility] [address] [place], [address] Microbial respiratory cultur eOrdered By: Esperanza Myers on 09-26-2024 Microorganism identified Cx Nom (Unsp spec) Haemophilus influenzae Abnormal [facility] Procalcitoninon 09-26-2024 Procalcitonin 0.14 ng/mL High 0.00-0.09 [facility] Comment on above: Result Comment: A [...] #### L 501.2300, L500.2500, L501.5200, L100.0100 #### [facility] [address] [place], [place], [address] Respiratory pathogens detect ion panel by molecular detection methodOrdered By: Esperanza Myers on 09-26-2024 Respiratory pathogens DNA and RNA panel RENATE+probe (Resp) [facility] Serum procalcitonin measurem entOrdered By: Esperanza Myers on 09-26-2024 Procalcitonin [Mass/Vol] 0.14 ng/mL High 0.00-0.09 [facility] Comment on above: A procalcitonin (PCT [...] Screeningon 07-26-[address] Lung Screening [facility] Imaging Services [address] [place], [place] [address] Low Dose CT Lung Screening MR#: [id number] Acct: [id number] Name: ANGELES LARIOS Rep #: [id number] : 1960 F 64 From: Gamaliel ridley MD PCP: Dr. 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 Martin Gutierrez MD Beamer Hand: Signed Normal [facility] Oncology Visit Reporton Oncology Visit Report [facility] [address] [place] [address] OFFICE VISIT Date of Service: 07/26/24 1212 MR#: [id number] Acct: [id number] Name: ANGELES LARIOS Rep #: [id number] : 1960 From: Margi Rebolledo Age/Sex: 64/F Location: [facility] Status: Signed HPI HPI Reviewed eligibility criteria: [...] you fallen in the past year?: Yes [facility] Medical History (Updated 07/26/24 @ 14:58 by Margi Christian HONING MACHINE OPERATOR SEMIAUTOMATIC, HONING MACHINE OPERATOR SEMIAUTOMATIC-C) Tobacco use disorder, continuous Iron deficiency anemia due to chronic blood loss History of str (more content not included)... Normal [facility] Vitamin D,25 Hydroxyon 06-16 Vitamin D 25-OH 22.9 ng/mL Normal [facility] Comment on above: Result Comment: Shanti min D 25(OH) Status Range Deficiency <20 ng/mL (50nmol/L) Insufficiency 20 - 30 ng/mL (50 - 75 nmol/L) Sufficiency 30 - 100 ng/mL (75 - 250 nmol/L) Toxicity >100 ng/mL (>250 nmol/L) Performed By: #### L 501.2300, L500.2500, L501.5200, L100.0100 #### [facility] [address] [place], [address] CBC W/Diff, Automatedon 05-25 Absolute Lymph 1.18 X10 3/uL Normal 0.83-4.51 [facility] Comment on above: Performed By: #### L 501.2300, L500.2500, L501.5200, L100.0100 #### [facility] [address] [place], [address] Absolute Neut 4.6 X10 3/uL Normal 2.0-7.7 [facility] Comment on above: Performed By: #### L 501.2300, L500.2500, L501.5200, L100.0100 #### [facility] [address] [place], [address] Basophils/100 WBC (Bld) 0.5 % Normal 0-1 [facility] Comment on above: Performed By: #### L 501.2300, L500.2500, L501.5200, L100.0100 #### [facility] [address] [place], [address] Eosinophils/100 WBC (Bld) 1.2 % Normal 0-5 [facility] Comment on above: Performed By: #### L 501.2300, L500.2500, L501.5200, L100.0100 #### [facility] [address] [place], [address] Erythrocyte distribution width (RBC) [Ratio] 13.4 % Normal 11.6-14.6 [facility] Comment on above: Performed By: #### L 501.2300, L500.2500, L501.5200, L100.0100 #### [facility] [address] [place], [address] Hematocrit (Bld) [Volume fraction] 38.6 % Normal 37-47 [facility] Comment on above: Performed By: #### L 501.2300, L500.2500, L501.5200, L100.0100 #### [facility] [address] [place], [address] Hemoglobin (Bld) [Mass/Vol] 11.9 g/dL Low 12.0-15.0 [facility] Comment on above: Performed By: #### L 501.2300, L500.2500, L501.5200, L100.0100 #### [facility] [address] [place], [address] IG% 0.300 Normal 0.0-0.9 [facility] Comment on above: Result Comment: IG% - Immature Granulocytes (promyelocytes, myelocytes and metamyelocytes) > 1% indicates that a LEFT SHIFT is Present. Performed By: #### L 501.2300, L500.2500, L501.5200, L100.0100 #### [facility] [address] [place], [address] Lymphocytes/100 WBC (Bld) 17.9 % Low 19-41 [facility] Comment on above: Performed By: #### L 501.2300, L500.2500, L501.5200, L100.0100 #### [facility] [address] [place], [address] MCH (RBC) [Entitic mass] 34.3 pg High 27.0-32.0 [facility] Comment on above: Performed By: #### L 501.2300, L500.2500, L501.5200, L100.0100 #### [facility] [address] [place], [address] MCHC (RBC) [Mass/Vol] 30.8 g/dL Low 32-36 [facility] Comment on above: Performed By: #### L 501.2300, L500.2500, L501.5200, L100.0100 #### [facility] [address] [place], [address] MCV (RBC) [Entitic vol] 111.2 fL High 81-99 [facility] Comment on above: Performed By: #### L 501.2300, L500.2500, L501.5200, L100.0100 #### [facility] [address] [place], [address] Monocytes/100 WBC (Bld) 10.6 % High 0-10 [facility] Comment on above: Performed By: #### L 501.2300, L500.2500, L501.5200, L100.0100 #### [facility] [address] [place], [address] Neutrophils/100 WBC (Bld) 69.5 % Normal 47-70 [facility] Comment on above: Performed By: #### L 501.2300, L500.2500, L501.5200, L100.0100 #### [facility] [address] [place], [address] Nucleated RBC (Bld) [#/Vol] 0 10*3/uL Normal 0-5 [facility] Comment on above: Performed By: #### L 501.2300, L500.2500, L501.5200, L100.0100 #### [facility] [address] [place], [address] Platelet mean volume (Bld) [Entitic vol] 9.4 fL Normal 6.2-12.0 [facility] Comment on above: Performed By: #### L 501.2300, L500.2500, L501.5200, L100.0100 #### [facility] [address] [place], [address] Platelets (Bld) [#/Vol] 256 10*3/uL Normal 150-450 [facility] Comment on above: Performed By: #### L 501.2300, L500.2500, L501.5200, L100.0100 #### [facility] [address] [place], [address] RBC (Bld) [#/Vol] 3.47 10*6/uL Low 4.2-5.4 [facility] Comment on above: Performed By: #### L 501.2300, L500.2500, L501.5200, L100.0100 #### [facility] [address] [place], [address] RDW SD 55.8 fl High 35.1-43.9 [facility] Comment on above: Performed By: #### L 501.2300, L500.2500, L501.5200, L100.0100 #### [facility] [address] [place], [address] WBC (Bld) [#/Vol] 6.6 10*3/uL Normal 4.4-11.0 [facility] Comment on above: Performed By: #### L 501.2300, L500.2500, L501.5200, L100.0100 #### [facility] [address] [place], [address] Comprehensive Metabolic Prof ilon 06-15-2024 Albumin [Mass/Vol] 3.1 g/dL Low 3.2-5.0 [facility] Comment on above: Performed By: #### L 501.2300, L500.2500, L501.5200, L100.0100 #### [facility] [address] [place], [address] Albumin/Globulin [Mass ratio] 1.1 {ratio} Normal 0.9-2.4 [facility] Comment on above: Performed By: #### L 501.2300, L500.2500, L501.5200, L100.0100 #### [facility] [address] [place], [address] ALK P 81 U/L Normal 45-117 [facility] Comment on above: Performed By: #### L 501.2300, L500.2500, L501.5200, L100.0100 #### [facility] [address] [place], [address] ALT [Catalytic activity/Vol] 51 U/L Normal 13-56 [facility] Comment on above: Performed By: #### L 501.2300, L500.2500, L501.5200, L100.0100 #### [facility] [address] [place], [address] AST [Catalytic activity/Vol] 23 U/L Normal 15-37 [facility] Comment on above: Performed By: #### L 501.2300, L500.2500, L501.5200, L100.0100 #### [facility] [address] [place], [address] Bilirubin [Mass/Vol] 0.20 mg/dL Normal 0.20-1.00 [facility] Comment on above: Result Comment: For patients on eltrombopag therapy, use of Dimension [place] TBIL is not recommended. Performed By: #### L 501.2300, L500.2500, L501.5200, L100.0100 #### [facility] [address] [place], [address] BUN/CRE 19.4 RATIO Normal 10-20 [facility] Comment on above: Performed By: #### L 501.2300, L500.2500, L501.5200, L100.0100 #### [facility] [address] [place], [address] CA,Total 9.6 mg/dL Normal 8.5-10.1 [facility] Comment on above: Performed By: #### L 501.2300, L500.2500, L501.5200, L100.0100 #### [facility] [address] [place], [address] Chloride [Moles/Vol] 112 mmol/L High 98-107 [facility] Comment on above: Performed By: #### L 501.2300, L500.2500, L501.5200, L100.0100 #### [facility] [address] [place], [address] CO2 [Moles/Vol] 27.0 mmol/L Normal 21.0-32.0 [facility] Comment on above: Performed By: #### L 501.2300, L500.2500, L501.5200, L100.0100 #### [facility] [address] [place], [address] Creatinine [Mass/Vol] 0.72 mg/dL Normal 0.55-1.02 [facility] Comment on above: Result Comment: The validity of the calculated GFR GFRAA in patients over 70 years has not been determined. Clinical correlation is essential. Performed By: #### L 501.2300, L500.2500, L501.5200, L100.0100 #### [facility] [address] [place], [address] EST GFR - AA 104 mL/min Normal >60 [facility] Comment on above: Result Comment: Afri can [place] GFR Calc Performed By: #### L 501.2300, L500.2500, L501.5200, L100.0100 #### [facility] [address] [place], [address] GAP 3 Low 5-15 [facility] Comment on above: Performed By: #### L 501.2300, L500.2500, L501.5200, L100.0100 #### [facility] [address] [place], [address] GFR/1.73 sq M.predicted among non-blacks MDRD (S/P/Bld) [Vol rate/Area] 86 mL/min/{1.73_m2} Normal >60 [facility] Comment on above: Result Comment: Non- GFR Calc Performed By: #### L 501.2300, L500.2500, L501.5200, L100.0100 #### [facility] [address] [place], [address] Globulin (S) [Mass/Vol] 2.9 g/dL Normal 2.2-4.2 [facility] Comment on above: Performed By: #### L 501.2300, L500.2500, L501.5200, L100.0100 #### [facility] [address] [place], [address] Glucose [Mass/Vol] 103 mg/dL Normal 74-106 [facility] Comment on above: Result Comment: Fast ing Glucose result from 100 to 125 mg/dL suggests IMPAIRED HOMEOSTASIS per A.D.A. criteria. Performed By: #### L 501.2300, L500.2500, L501.5200, L100.0100 #### [facility] [address] [place], [address] Potassium [Moles/Vol] 3.8 mmol/L Normal 3.5-5.1 [facility] Comment on above: Performed By: #### L 501.2300, L500.2500, L501.5200, L100.0100 #### [facility] [address] [place], [address] Sodium [Moles/Vol] 143 mmol/L Normal 136-145 [facility] Comment on above: Performed By: #### L 501.2300, L500.2500, L501.5200, L100.0100 #### [facility] [address] [place], [address] T PROT 6.0 g/dL Low 6.4-8.2 [facility] Comment on above: Performed By: #### L 501.2300, L500.2500, L501.5200, L100.0100 #### [facility] [address] [place], [address] Urea nitrogen [Mass/Vol] 14 mg/dL Normal 7-18 [facility] Comment on above: Performed By: #### L 501.2300, L500.2500, L501.5200, L100.0100 #### [facility] [address] [place], [address] Thyroid Stim Hormone (TSH)on 06-15-2024 TSH 2.190 uIU/mL Normal 0.358-3.740 [facility] Comment on above: Performed By: #### L 501.2300, L500.2500, L501.5200, L100.0100 #### [facility] [address] [place], [place], [address] Spine Lumbar (Routine)on Spine Lumbar (Routine) [facility] [address] [place] [address] Spine Lumbar (Routine) MR#: [id number] Acct: [id number] Name: ANGELES LARIOS Rep #: [id number] : 1960 F 64 From: Mason Montgomery MD PCP: Dr. Martin Gutierrez MD Status: REG CLI Study: Spine Lumbar (Routine) Date of Exam: 06/13/24 Exam# [id number] Ordering Dr: Martin Gutierrez MD [id number] EXAM: MR LUMBAR SPINE WITHOUT INTRAVENOUS CONTRAST [...] EDT , CC: Dr. Martin Gutierrez MD Beamer Hand: Signed [facility] L/S Spine Bending Flex/Poplar 05-23-2024 L/S Spine Bending Flex/Ext [facility] [address] [place] [address] 744341 L/S Spine Bending Flex/Ext MR#: [id number] Acct: [id number] Name: ANGELES LARIOS Rep #: [id number] : 1960 F 64 From: Marshal Rosales MD PCP: Dr. Martin Gutierrez MD Status: REG CLI Study: L/S Spine Bending Flex/Ext Date of Exam: 05/23 Exam# [id number] Ordering Dr: Armando Ga MD [id number] STUDY: X-RAY - LUMBAR SPINE REASON FOR [...] Armando Ga MD; Dr. Martin Gutierrez MD Beamer Hand: Signed Normal [facility] L/S Spine Min 4 Viewson 04-24 L/S Spine Min 4 Views [facility] [address] [place] [address] 163501 L/S Spine Min 4 Views MR#: [id number] Acct: [id number] Name: ANGELES LARIOS Rep #: [id number] : 1960 F 64 From: Gamaliel ridley MD PCP: Dr. Martin Gutierrez MD Status: REG CLI Study: L/S Spine Min 4 Views Date of Exam: 05/11/24 Exam# [id number] Ordering Dr: Martin Gutierrez MD [id number] STUDY: X-RAY - LUMBAR SPINE REASON FOR [...] EDT , CC: Dr. Martin Gutierrez MD Beamer Hand: Signed Normal [facility] Absolute lymphocyte countOrd ered By: Martin Gutierrez on 12-18-2023 Lymphocytes Auto (Unsp spec) [#/Vol] 1.53 10*3/uL 0.83-4.51 [facility] Automated lymphocyte count a s percentage of total leukocytesOrdered By: Martin Gutierrez on 12-18-2023 Lymphocytes/100 WBC Auto (Unsp spec) 26.8 % 19-41 [facility] Basophil percentageOrdered B y: Martin Gutierrez on 12-18-2023 Basophils/100 WBC (Bld) 1.2 % 0-1 [facility] Bilirubin [Mass/Vol] 0.30 mg/dL 0.20-1.00 [facility] Comment on above: For patients on eltr ombopag therapy, use of Dimension [place] TBIL is not recommended. Chloride [Moles/Vol] 110 mmol/L 98-107 [facility] Eosinophils/100 WBC (Bld) 1.8 % 0-5 [facility] Glucose [Mass/Vol] 104 mg/dL 74-106 [facility] Comment on above: Fasting Glucose resu lt from 100 to 125 mg/dL suggests IMPAIRED HOMEOSTASIS per A.D.A. criteria. Hemoglobin (Bld) [Mass/Vol] 10.5 g/dL 12.0-15.0 [facility] Monocytes/100 WBC (Bld) 9.6 % 0-10 [facility] Neutrophils (Bld) [#/Vol] 3.4 10*3/uL 2.0-7.7 [facility] Neutrophils/100 WBC (Bld) 59.9 % 47-70 [facility] Potassium [Moles/Vol] 3.7 mmol/L 3.5-5.1 [facility] Protein [Mass/Vol] 6.3 g/dL 6.4-8.2 [facility] Sodium [Moles/Vol] 142 mmol/L 136-145 [facility] WBC (Bld) [#/Vol] 5.7 10*3/uL 4.4-11.0 [facility] Determination of erythrocyte mean corpuscular volume (MCV)Ordered By: Martin Gutierrez on 12-18-2023 MCV (RBC) [Entitic vol] 113.6 fL 81-99 [facility] Erythrocyte distribution wid th ratioOrdered By: Martin Gutierrez 12-18-2023 Erythrocyte distribution width (RBC) [Ratio] 13.9 % 11.6-14.6 [facility] Erythrocyte distribution wid th standard deviationOrdered By: Martin Gutierrez 12-18-2023 Erythrocyte distribution width (RBC) [Entitic vol] 57.8 fL 35.1-43.9 [facility] Hematocrit Auto (Bld) [Volum e fraction]Ordered By: [facility] Matt on 12-18-2023 Hematocrit (Bld) [Volume fraction] 34.3 % 37-47 [facility] Immature granulocytes/100 WB C Auto (Bld)Ordered By: Martin Gutierrez 12-18-2023 Immature granulocytes/100 WBC (Bld) 0.700 % 0.0-0.9 [facility] Comment on above: IG% - Immature Granu locytes (promyelocytes, myelocytes and metamyelocytes) > 1% indicates that a LEFT SHIFT is Present. Laboratory - Chemistry and C hemistry - challengeOrdered By: Martin Gutierrez on 12-18-2023 Albumin/Globulin [Mass ratio] 1.2 {ratio} 0.9-2.4 [facility] ALP [Catalytic activity/Vol] 94 U/L 45-117 [facility] ALT [Catalytic activity/Vol] 37 U/L 13-56 [facility] CO2 [Moles/Vol] 29.0 mmol/L 21.0-32.0 [facility] Globulin (S) [Mass/Vol] 2.9 g/dL 2.2-4.2 [facility] Urea nitrogen/Creatinine [Mass ratio] 16.7 mg/mg 10-20 [facility] - Hematology and Cell countsOrdered By: Martin Gutierrez on 12-18-2023 MCH (RBC) [Entitic mass] 34.8 pg 27.0-32.0 [facility] MCHC (RBC) [Mass/Vol] 30.6 g/dL 32-36 [facility] Nucleated RBC/100 WBC (Bld) [Ratio] 0 % 0-5 [facility] Platelet mean volume (Bld) [Entitic vol] 9.6 fL 6.2-12.0 [facility] Platelets (Bld) [#/Vol] 289 10*3/uL 150-450 [facility] No Panel InformationOrdered By: Martin Gutierrez on 12-18-2023 Estimated GFR (MDRD) Amer 104 mL/min >60 [facility] Comment on above: GFR Calc Estimated GFR (MDRD) Non-Af Amer 86 mL/min >60 [facility] Comment on above: Non- GFR Calc Vitamin D 25-Hydroxy 15.2 ng/mL [facility] Comment on above: Vitamin D 25(OH) Sta tus Range Deficiency <20 ng/mL (50nmol/L) Insufficiency 20 - 30 ng/mL (50 - 75 nmol/L) Sufficiency 30 - 100 ng/mL (75 - 250 nmol/L) Toxicity >100 ng/mL (>250 nmol/L) RBC Auto (Bld) [#/Vol]Ordere d By: Martin Gutierrez on 12-18-2023 RBC (Bld) [#/Vol] 3.02 10*6/uL 4.2-5.4 [facility] Serum or plasma calcium kamlesh urement (mass/volume)Ordered By: Martin Gutierrez on 12-18-2023 Calcium [Mass/Vol] 8.7 mg/dL 8.5-10.1 [facility] Serum or plasma creatinine m easurement (mass/volume)Ordered By: Martin Gutierrez on 12-18-2023 Creatinine [Mass/Vol] 0.72 mg/dL 0.55-1.02 [facility] Comment on above: The validity of the calculated GFR & GFRAA in patients over 70 years has not been determined. Clinical correlation is essential. Serum or plasma thyroid stim ulating hormone (TSH) measurement (units/volume)Ordered By: Martin Gutierrez on 12-18-2023 TSH Qn 2.41 uIU/mL 0.358-3.74 [facility] Serum or plasma urea nitroge n measurement (mass/volume)Ordered By: Martin Gutierrez on 12-18-2023 Urea nitrogen [Mass/Vol] 12 mg/dL 7-18 [facility] Thin prep Papanicolaou smear with manual screeningOrdered By: Martin Gutierrez on 12-18-2023 Thin prep Papanicolaou smear with manual screening 3.4 g/dL 3.2-5.0 [facility] Thin prep Papanicolaou smear with manual screening 22 U/L 15-37 [facility] Thin prep Papanicolaou smear with manual screening 3 5-15 [facility] Absolute lymphocyte countOrd ered By: Simon Ulloa on 09-30-2023 Lymphocytes Auto (Unsp spec) [#/Vol] 1.61 10*3/uL 0.83-4.51 [facility] Automated lymphocyte count a s percentage of total leukocytesOrdered By: Simon Ulloa on 09-30-2023 Lymphocytes/100 WBC Auto (Unsp spec) 18.0 % 19-41 [facility] Basophil percentageOrdered B y: Simon Ulloa on 09-30-2023 Basophils/100 WBC (Bld) 0.8 % 0-1 [facility] Eosinophils/100 WBC (Bld) 1.1 % 0-5 [facility] Hemoglobin (Bld) [Mass/Vol] 13.7 g/dL 12.0-15.0 [facility] Monocytes/100 WBC (Bld) 7.0 % 0-10 [facility] Neutrophils (Bld) [#/Vol] 6.5 10*3/uL 2.0-7.7 [facility] Neutrophils/100 WBC (Bld) 72.7 % 47-70 [facility] WBC (Bld) [#/Vol] 8.9 10*3/uL 4.4-11.0 [facility] Determination of erythrocyte mean corpuscular volume (MCV)Ordered By: Simon Ulloa on 09-30-2023 MCV (RBC) [Entitic vol] 105.7 fL 81-99 [facility] Erythrocyte distribution wid th ratioOrdered By: [facility] Artemio on 09-30-2023 Erythrocyte distribution width (RBC) [Ratio] 14.0 % 11.6-14.6 [facility] Erythrocyte distribution wid th standard deviationOrdered By: Simon Ulloa on 09-30-2023 Erythrocyte distribution width (RBC) [Entitic vol] 54.8 fL 35.1-43.9 [facility] Hematocrit Auto (Bld) [Volum e fraction]Ordered By: Simon Ulloa on 09-30-2023 Hematocrit (Bld) [Volume fraction] 43.0 % 37-47 [facility] Immature granulocytes/100 WB C Auto (Bld)[facility] Immature granulocytes/100 WBC (Bld) 0.400 % 0.0-0.9 [facility] Comment on above: IG% - Immature Granu locytes (promyelocytes, myelocytes and metamyelocytes) > 1% indicates that a LEFT SHIFT is Present. Iron measurement (mass/mass) Ordered By: Simon Ulloa on 09-30-2023 Iron (Unsp spec) [Mass/Mass] 39 ug/dL 50-170 [facility] - Chemistry and C hemistry - challengeOrdered By: Simon Ulloa on 09-30-2023 Cobalamin (Vitamin B12) [Mass/Vol] 257 pg/mL 211-911 [facility] Ferritin [Mass/Vol] 27 ng/mL 8-252 [facility] - Hematology and Cell countsOrdered By: Simon Ulloa on 09-30-2023 MCH (RBC) [Entitic mass] 33.7 pg 27.0-32.0 [facility] MCHC (RBC) [Mass/Vol] 31.9 g/dL 32-36 [facility] Nucleated RBC/100 WBC (Bld) [Ratio] 0 % 0-5 [facility] Platelet mean volume (Bld) [Entitic vol] 9.4 fL 6.2-12.0 [facility] Platelets (Bld) [#/Vol] 279 10*3/uL 150-450 [facility] No Panel InformationOrdered By: Simon Ulloa on 09-30-2023 Total Iron Binding Capacity 346 ug/dL 250-450 [facility] RBC Auto (Bld) [#/Vol]Ordere d By: Simon Ulloa on 09-30-2023 RBC (Bld) [#/Vol] 4.07 10*6/uL 4.2-5.4 [facility] Serum or plasma iron saturat ion measurement (mass fraction)Ordered By: Simon Ulloa on 09-30-2023 Iron saturation [Mass fraction] 11.3 % 15.0-55.0 [facility] Absolute lymphocyte countOrd ered By: Martin Gutierrez on 08-26-2023 Lymphocytes Auto (Unsp spec) [#/Vol] 1.75 10*3/uL 0.83-4.51 [facility] Basophil percentageOrdered B y: Martin Gutierrez on 08-26-2023 Basophils/100 WBC (Bld) 0.6 % 0-1 [facility] Eosinophils/100 WBC (Bld) 0.6 % 0-5 [facility] Neutrophils (Bld) [#/Vol] 6.9 10*3/uL 2.0-7.7 [facility] Neutrophils/100 WBC (Bld) 69.7 % 47-70 [facility] WBC (Bld) [#/Vol] 9.9 10*3/uL 4.4-11.0 [facility] Blood erythrocytes count (nu mber/volume)Ordered By: Martin Gutierrez on 08-26-2023 RBC (Bld) [#/Vol] 3.61 10*6/uL 4.2-5.4 [facility] Blood hemoglobin measurement (mass/volume)Ordered By: Martin Gutierrez on 08-26-2023 Hemoglobin (Bld) [Mass/Vol] 12.1 g/dL 12.0-15.0 [facility] Blood lymphocytes/100 leukoc ytesOrdered By: Martin Gutierrez on 08-26-2023 Lymphocytes/100 WBC (Bld) 17.6 % 19-41 [facility] Blood monocytes/100 leukocyt esOrdered By: Martin Gutierrez on 08-26-2023 Monocytes/100 WBC (Bld) 11.3 % 0-10 [facility] Blood platelet mean volumeOr dered By: Martin Gutierrez on 08-26-2023 Platelet mean volume (Bld) [Entitic vol] 9.9 fL 6.2-12.0 [facility] Determination of erythrocyte mean corpuscular volume (MCV)Ordered By: Martin Gutierrez on 08-26-2023 MCV (RBC) [Entitic vol] 104.4 fL 81-99 [facility] Hematocrit Auto (Bld) [Volum e fraction]Ordered By: Martin Gutierrez on 08-26-2023 Hematocrit (Bld) [Volume fraction] 37.7 % 37-47 [facility] Iron measurement (mass/mass) Ordered By: Martin Gutierrez on 08-26-2023 Iron (Unsp spec) [Mass/Mass] 14 ug/dL 50-170 [facility] - Hematology and Cell countsOrdered By: Martin Gutierrez on 08-26-2023 Erythrocyte distribution width (RBC) [Entitic vol] 47.9 fL 35.1-43.9 [facility] Erythrocyte distribution width (RBC) [Ratio] 12.4 % 11.6-14.6 [facility] Immature granulocytes/100 WBC (Bld) 0.200 % 0.0-0.9 [facility] Comment on above: IG% - Immature Granu locytes (promyelocytes, myelocytes and metamyelocytes) > 1% indicates that a LEFT SHIFT is Present. MCH (RBC) [Entitic mass] 33.5 pg 27.0-32.0 [facility] Nucleated RBC/100 WBC (Bld) [Ratio] 0 % 0-5 [facility] MCHC Auto (RBC) [Mass/Vol]Or dered By: Martin Gutierrez on 08-26-2023 MCHC (RBC) [Mass/Vol] 32.1 g/dL 32-36 [facility] Platelets bldOrdered By: Martin Gutierrez on 08-26-2023 Platelets (Bld) [#/Vol] 295 10*3/uL 150-450 [facility] Absolute lymphocyte countOrd ered By: Martin Gutierrez on 06-09-2023 Lymphocytes Auto (Unsp spec) [#/Vol] 1.24 10*3/uL 0.83-4.51 [facility] Basophil percentageOrdered B y: Martin Gutierrez on 06-09-2023 Basophils/100 WBC (Bld) 0.9 % 0-1 [facility] Bilirubin [Mass/Vol] 0.20 mg/dL 0.20-1.00 [facility] Comment on above: For patients on eltr ombopag therapy, use of Dimension [place] TBIL is not recommended. Chloride [Moles/Vol] 109 mmol/L 98-107 [facility] Eosinophils/100 WBC (Bld) 2.1 % 0-5 [facility] Glucose [Mass/Vol] 141 mg/dL 74-106 [facility] Comment on above: Fasting Glucose resu lt greater than or equal to 126 mg/dL suggests DIABETES MELLITUS per A.D.A. criteria. Neutrophils (Bld) [#/Vol] 3.6 10*3/uL 2.0-7.7 [facility] Neutrophils/100 WBC (Bld) 66.2 % 47-70 [facility] Potassium [Moles/Vol] 3.8 mmol/L 3.5-5.1 [facility] Protein [Mass/Vol] 6.8 g/dL 6.4-8.2 [facility] Sodium [Moles/Vol] 141 mmol/L 136-145 [facility] WBC (Bld) [#/Vol] 5.4 10*3/uL 4.4-11.0 [facility] Blood erythrocytes count (nu mber/volume)Ordered By: Martin Gutierrez on 06-09-2023 RBC (Bld) [#/Vol] 3.81 10*6/uL 4.2-5.4 [facility] Blood hemoglobin measurement (mass/volume)Ordered By: Martin Gutierrez on 06-09-2023 Hemoglobin (Bld) [Mass/Vol] 13.2 g/dL 12.0-15.0 [facility] Blood lymphocytes/100 leukoc ytesOrdered By: Martin Gutierrez on 06-09-2023 Lymphocytes/100 WBC (Bld) 23.1 % 19-41 [facility] Blood monocytes/100 leukocyt esOrdered By: Martin Gutierrez on 06-09-2023 Monocytes/100 WBC (Bld) 7.5 % 0-10 [facility] Blood platelet mean volumeOr dered By: Martin Gutierrez on 06-09-2023 Platelet mean volume (Bld) [Entitic vol] 9.5 fL 6.2-12.0 [facility] Determination of erythrocyte mean corpuscular volume (MCV)Ordered By: Martin Gutierrez on 06-09-2023 MCV (RBC) [Entitic vol] 108.4 fL 81-99 [facility] Hematocrit Auto (Bld) [Volum e fraction]Ordered By: Martin Matt on 06-09-2023 Hematocrit (Bld) [Volume fraction] 41.3 % 37-47 [facility] Laboratory - Chemistry and C hemistry - challengeOrdered By: Martin Gutierrez on 06-09-2023 ALP [Catalytic activity/Vol] 130 U/L 45-117 [facility] ALT [Catalytic activity/Vol] 21 U/L 13-56 [facility] CO2 [Moles/Vol] 28.0 mmol/L 21.0-32.0 [facility] Globulin (S) [Mass/Vol] 3.5 g/dL 2.2-4.2 [facility] Urea nitrogen/Creatinine [Mass ratio] 14.2 mg/mg 10-20 [facility] Laboratory - Hematology and Cell countsOrdered By: Martin Gutierrez on 06-09-2023 Erythrocyte distribution width (RBC) [Entitic vol] 57.1 fL 35.1-43.9 [facility] Erythrocyte distribution width (RBC) [Ratio] 14.5 % 11.6-14.6 [facility] Immature granulocytes/100 WBC (Bld) 0.200 % 0.0-0.9 [facility] Comment on above: IG% - Immature Granu locytes (promyelocytes, myelocytes and metamyelocytes) > 1% indicates that a LEFT SHIFT is Present. MCH (RBC) [Entitic mass] 34.6 pg 27.0-32.0 [facility] Nucleated RBC/100 WBC (Bld) [Ratio] 0 % 0-5 [facility] MCHC Auto (RBC) [Mass/Vol]Or dered By: Martin Gutierrez on 06-09-2023 MCHC (RBC) [Mass/Vol] 32.0 g/dL 32-36 [facility] No Panel InformationOrdered By: Martin Gutierrez on 06-09-2023 Estimated GFR (MDRD) Amer 96 mL/min >60 [facility] Comment on above: GFR Calc Estimated GFR (MDRD) Non-Af Amer 80 mL/min >60 [facility] Comment on above: Non- GFR Calc Thyroid Stimulating Hormone (TSH) 1.26 uIU/mL 0.358-3.74 [facility] Vitamin D 25-Hydroxy 23.0 ng/mL [facility] Comment on above: Vitamin D 25(OH) Sta tus Range Deficiency <20 ng/mL (50nmol/L) Insufficiency 20 - 30 ng/mL (50 - 75 nmol/L) Sufficiency 30 - 100 ng/mL (75 - 250 nmol/L) Toxicity >100 ng/mL (>250 nmol/L) Platelets bldOrdered By: Martin Gutierrez on 06-09-2023 Platelets (Bld) [#/Vol] 282 10*3/uL 150-450 [facility] Serum or plasma albumin kamlesh urement (mass/volume)Ordered By: Martin Gutierrez 06-09-2023 Albumin [Mass/Vol] 3.3 g/dL 3.2-5.0 [facility] Serum or plasma albumin/glob ulin mass ratioOrdered By: Martin Gutierrez 06-09-2023 Albumin/Globulin [Mass ratio] 0.9 {ratio} 0.9-2.4 [facility] Serum or plasma calcium kamlesh urement (mass/volume)Ordered By: Martin Gutierrez on 06-09-2023 Calcium [Mass/Vol] 8.7 mg/dL 8.5-10.1 [facility] Serum or plasma creatinine m easurement (mass/volume)Ordered By: Martin Gutierrez 06-09-2023 Creatinine [Mass/Vol] 0.77 mg/dL 0.55-1.02 [facility] Comment on above: The validity of the calculated GFR & GFRAA in patients over 70 years has not been determined. Clinical correlation is essential. Serum or plasma urea nitroge n measurement (mass/volume)Ordered By: Martin Gutierrez on 06-09-2023 Urea nitrogen [Mass/Vol] 11 mg/dL 7-18 [facility] Thin prep Papanicolaou smear with manual screeningOrdered By: Martin Gutierrez on 06-09-2023 Thin prep Papanicolaou smear with manual screening 11 U/L 15-37 [facility] Thin prep Papanicolaou smear with manual screening 4 5-15 [facility] Laboratory - Microbiology an d Antimicrobial susceptibilityOrdered By: Martin Gutierrez on 05-14-2023 SARS-CoV-2 (COVID-19) RNA RENATE+probe Ql (Unsp spec) [facility] SARS-CoV-2 (COVID-19) RNA RENATE+probe Ql (Unsp spec) [facility] No Panel InformationOrdered By: Martin Gutierrez on 05-14-2023 Influenza Types A,B Direct FA (MARQUEZ) [facility] Influenza Types A,B Direct FA (MARQUEZ) [facility] RSV Ag EIAOrdered By: Martin mary on 05-14-2023 RSV Ag Immune stain Ql (Tiss) [facility] RSV Ag Immune stain Ql (Tiss) [facility] Absolute lymphocyte countOrd ered By: Simon Ulloa on 04-15-2023 Lymphocytes Auto (Unsp spec) [#/Vol] 1.11 10*3/uL 0.83-4.51 [facility] Basophil percentageOrdered B y: Simon Ulloa on 04-15-2023 Basophils/100 WBC (Bld) 0.9 % 0-1 [facility] Eosinophils/100 WBC (Bld) 1.7 % 0-5 [facility] Neutrophils (Bld) [#/Vol] 5.0 10*3/uL 2.0-7.7 [facility] Neutrophils/100 WBC (Bld) 70.3 % 47-70 [facility] WBC (Bld) [#/Vol] 7.1 10*3/uL 4.4-11.0 [facility] Blood erythrocytes count (nu mber/volume)Ordered By: Simon Ulloa on 04-15-2023 RBC (Bld) [#/Vol] 4.09 10*6/uL 4.2-5.4 [facility] Blood hemoglobin measurement (mass/volume)Ordered By: Simon Ulloa on 04-15-2023 Hemoglobin (Bld) [Mass/Vol] 14.3 g/dL 12.0-15.0 [facility] Blood lymphocytes/[address] leukoc ytesOrdered By: [facility]23 Lymphocytes/100 WBC (Bld) 15.7 % 19-41 [facility] Blood monocytes/100 leukocyt esOrdered By: [facility] Artemio on 04-15-2023 Monocytes/100 WBC (Bld) 11.3 % 0-10 [facility] Blood platelet mean volumeOr dered By: [facility] on 04-15-2023 Platelet mean volume (Bld) [Entitic vol] 9.4 fL 6.2-12.0 [facility] Determination of erythrocyte mean corpuscular volume (MCV)Ordered By: [facility] on 04-15-2023 MCV (RBC) [Entitic vol] 103.7 fL 81-99 [facility] Hematocrit Auto (Bld) [Volum e fraction]Ordered By: Simon Ulloa on 04-15-2023 Hematocrit (Bld) [Volume fraction] 42.4 % 37-47 [facility] Hemoglobin in reticulocytes (mass per reticulocyte)Ordered By: [facility] Artemio on 04-15-2023 Hemoglobin (Reticulocytes) [Entitic mass] 35.8 pg 30-35 [facility] Iron measurement (mass/mass) Ordered By: [facility] on 04-15-2023 Iron (Unsp spec) [Mass/Mass] 80 ug/dL 50-170 [facility] - Hematology and Cell countsOrdered By: [facility] on 04-15-2023 Erythrocyte distribution width (RBC) [Entitic vol] 49.9 fL 35.1-43.9 [facility] Erythrocyte distribution width (RBC) [Ratio] 13.2 % 11.6-14.6 [facility] Immature granulocytes/100 WBC (Bld) 0.100 % 0.0-0.9 [facility] Comment on above: IG% - Immature Granu locytes (promyelocytes, myelocytes and metamyelocytes) > 1% indicates that a LEFT SHIFT is Present. MCH (RBC) [Entitic mass] 35.0 pg 27.0-32.0 [facility] Nucleated RBC/100 WBC (Bld) [Ratio] 0 % 0-5 [facility] MCHC Auto (RBC) [Mass/Vol]Or dered By: Simon Ulloa on 04-15-2023 MCHC (RBC) [Mass/Vol] 33.7 g/dL 32-36 [facility] No Panel InformationOrdered By: Simon Ulloa on 04-15-2023 Immature Reticulocyte Fraction 16.80 % 3.00-15.90 [facility] Reticulocyte Count 2.48 % 0.5-1.5 [facility] Total Iron Binding Capacity 335 ug/dL 250-450 [facility] Platelets bldOrdered By: Refugio Ulloa on 04-15-2023 Platelets (Bld) [#/Vol] 243 10*3/uL 150-450 [facility] Serum or plasma ferritin ibrahima surement (mass/volume)Ordered By: Simon Ulloa on 04-15-2023 Ferritin [Mass/Vol] 34 ng/mL 8-252 [facility] Serum or plasma iron saturat ion measurement (mass fraction)Ordered By: Simon Ulloa on 04-15-2023 Iron saturation [Mass fraction] 23.9 % 15.0-55.0 [facility] Absolute lymphocyte countOrd ered By: Dr. Gutierrez on 12-11-2022 Lymphocytes Auto (Unsp spec) [#/Vol] 1.66 10*3/uL 0.83-4.51 [facility] Basophil percentageOrdered B y: Dr. Gutierrez on 12-11-2022 Basophils/100 WBC (Bld) 1.0 % 0-1 [facility] Bilirubin [Mass/Vol] 0.30 mg/dL 0.20-1.00 [facility] Comment on above: For patients on eltr ombopag therapy, use of Dimension [place] TBIL is not recommended. Chloride [Moles/Vol] 107 mmol/L 98-107 [facility] Cholesterol [Mass/Vol] 188 mg/dL <200 [facility] Comment on above: <200 mg/dL Desirable 200-240 mg/dL Borderline >240 mg/dL High Risk Eosinophils/100 WBC (Bld) 1.5 % 0-5 [facility] Glucose [Mass/Vol] 101 mg/dL 74-106 [facility] Comment on above: Fasting Glucose resu lt from 100 to 125 mg/dL suggests IMPAIRED HOMEOSTASIS per A.D.A. criteria. Neutrophils (Bld) [#/Vol] 4.5 10*3/uL 2.0-7.7 [facility] Neutrophils/100 WBC (Bld) 63.8 % 47-70 [facility] Potassium [Moles/Vol] 3.8 mmol/L 3.5-5.1 [facility] Protein [Mass/Vol] 7.3 g/dL 6.4-8.2 [facility] Sodium [Moles/Vol] 138 mmol/L 136-145 [facility] Triglyceride [Mass/Vol] 154 mg/dL <199 [facility] Comment on above: The drugs N-Acetylcy steine and Metamizole may falsely depress this assay.Serum Triglycerides Reference Interval Normal <150 mg/dL Borderline high 150 - 199 mg/dL High 200 - 499 mg/dL Very High > or = 500 mg/dL WBC (Bld) [#/Vol] 7.1 10*3/uL 4.4-11.0 [facility] Blood erythrocytes count (nu mber/volume)Ordered By: Dr. Gutierrez on 12-11-2022 RBC (Bld) [#/Vol] 4.11 10*6/uL 4.2-5.4 [facility] Blood hemoglobin measurement (mass/volume)Ordered By: Dr. Gutierrez on 12-11-2022 Hemoglobin (Bld) [Mass/Vol] 14.3 g/dL 12.0-15.0 [facility] Blood lymphocytes/100 leukoc ytesOrdered By: Dr. Gutierrez on 12-11-2022 Lymphocytes/100 WBC (Bld) 23.3 % 19-41 [facility] Blood monocytes/100 leukocyt esOrdered By: Dr. Gutierrez on 12-11-2022 Monocytes/100 WBC (Bld) 10.0 % 0-10 [facility] Blood platelet mean volumeOr dered By: Dr. Gutierrez on 12-11-2022 Platelet mean volume (Bld) [Entitic vol] 10.4 fL 6.2-12.0 [facility] Determination of erythrocyte mean corpuscular volume (MCV)Ordered By: Dr. Gutierrez on 12-11-2022 MCV (RBC) [Entitic vol] 107.1 fL 81-99 [facility] Hematocrit Auto (Bld) [Volum e fraction]Ordered By: Dr. Gutierrez on 12-11-2022 Hematocrit (Bld) [Volume fraction] 44.0 % 37-47 [facility] Laboratory - Chemistry and C hemistry - challengeOrdered By: Dr. Gutierrez on 12-11-2022 ALP [Catalytic activity/Vol] 135 U/L 45-117 [facility] ALT [Catalytic activity/Vol] 21 U/L 13-56 [facility] CO2 [Moles/Vol] 26.0 mmol/L 21.0-32.0 [facility] Globulin (S) [Mass/Vol] 3.5 g/dL 2.2-4.2 [facility] Urea nitrogen/Creatinine [Mass ratio] 13.1 mg/mg 10-20 [facility] Laboratory - Hematology and Cell countsOrdered By: Dr. Gutierrez on 12-11-2022 Erythrocyte distribution width (RBC) [Entitic vol] 50.1 fL 35.1-43.9 [facility] Erythrocyte distribution width (RBC) [Ratio] 12.5 % 11.6-14.6 [facility] Immature granulocytes/100 WBC (Bld) 0.400 % 0.0-0.9 [facility] Comment on above: IG% - Immature Granu locytes (promyelocytes, myelocytes and metamyelocytes) > 1% indicates that a LEFT SHIFT is Present. MCH (RBC) [Entitic mass] 34.8 pg 27.0-32.0 [facility] Nucleated RBC/100 WBC (Bld) [Ratio] 0 % 0-5 [facility] MCHC Auto (RBC) [Mass/Vol]Or dered By: Dr. Gutierrez on 12-11-2022 MCHC (RBC) [Mass/Vol] 32.5 g/dL 32-36 [facility] No Panel InformationOrdered By: Dr. Gutierrez on 12-11-2022 Estimated GFR (MDRD) Amer 98 mL/min >60 [facility] Comment on above: GFR Calc Estimated GFR (MDRD) Non-Af Amer 81 mL/min >60 [facility] Comment on above: Non- GFR Calc Thyroid Stimulating Hormone (TSH) 2.80 uIU/mL 0.358-3.74 [facility] Vitamin D 25-Hydroxy 43.1 ng/mL [facility] Comment on above: Vitamin D 25(OH) Sta tus Range Deficiency <20 ng/mL (50nmol/L) Insufficiency 20 - 30 ng/mL (50 - 75 nmol/L) Sufficiency 30 - 100 ng/mL (75 - 250 nmol/L) Toxicity >100 ng/mL (>250 nmol/L) Platelets bldOrdered By: Dr. Gutierrez on 12-11-2022 Platelets (Bld) [#/Vol] 300 10*3/uL 150-450 [facility] Serum or plasma albumin kamlesh urement (mass/volume)Ordered By: Dr. Gutierrez on 12-11-2022 Albumin [Mass/Vol] 3.8 g/dL 3.2-5.0 [facility] Serum or plasma albumin/glob ulin mass ratioOrdered By: Dr. Gutierrez on 12-11-2022 Albumin/Globulin [Mass ratio] 1.1 {ratio} 0.9-2.4 [facility] Serum or plasma calcium kamlesh urement (mass/volume)Ordered By: Dr. Gutierrez on 12-11-2022 Calcium [Mass/Vol] 9.4 mg/dL 8.5-10.1 [facility] Serum or plasma cholesterol in HDL measurement (mass/volume)Ordered By: Dr. Gutierrez on 12-11-2022 Cholesterol in HDL [Mass/Vol] 40 mg/dL >40 [facility] Comment on above: The drugs N-Acetylcy steine and Metamizole may falsely depress this assay. Reference Range HDL <40 mg/dL Low HDL Cholesterol HDL >or= 60 mg/dL High HDL Cholesterol Serum or plasma cholesterol in VLDL measurement (mass/volume)Ordered By: Dr. Gutierrez on 12-11-2022 Cholesterol in VLDL [Mass/Vol] 31 mg/dL 5-40 [facility] Serum or plasma creatinine m easurement (mass/volume)Ordered By: Dr. Gutierrez on 12-11-2022 Creatinine [Mass/Vol] 0.76 mg/dL 0.55-1.02 [facility] Comment on above: The validity of the calculated GFR & GFRAA in patients over 70 years has not been determined. Clinical correlation is essential. Serum or plasma low density lipoprotein (LDL) cholesterol measurement (mass/volume)Ordered By: Dr. Gutierrez on 12-11-2022 Cholesterol in LDL [Mass/Vol] 117 mg/dL 0-130 [facility] Serum or plasma urea nitroge n measurement (mass/volume)Ordered By: Dr. Gutierrez on 12-11-2022 Urea nitrogen [Mass/Vol] 10 mg/dL 7-18 [facility] Thin prep Papanicolaou smear with manual screeningOrdered By: Dr. Gutierrez on 12-11-2022 Thin prep Papanicolaou smear with manual screening 18 U/L 15-37 [facility] Thin prep Papanicolaou smear with manual screening 5 5-15 [facility] Bacteria identified Cx Nom ( Wound)Ordered By: Dr. Gutierrez on 11-29-2022 Wound Culture Streptococcus group A [facility] Gram stain for investigation of transfusion reactionOrdered By: Dr. Gutierrez on 11-28-2022 Microscopic observation Gram stain Nom (Unsp spec) [facility] No Panel InformationOrdered By: Dr. Gutierrez on 11-27-2022 Methicillin-Resist S.aureus DNA PCR Negative Negative [facility] Staphylococcus aureus DNA de tection by probe and target amplification methodOrdered By: Dr. Gutierrez on 11-27-2022 S. aureus DNA RENATE+probe Ql (Unsp spec) Negative Negative [facility] Absolute lymphocyte countOrd ered By: Dr. Ulloa on 09-02-2022 Lymphocytes Auto (Unsp spec) [#/Vol] 1.71 10*3/uL 0.83-4.51 [facility] Basophil percentageOrdered B y: Dr. Ulloa on 09-02-2022 Basophils/100 WBC (Bld) 1.2 % 0-1 [facility] Eosinophils/100 WBC (Bld) 2.5 % 0-5 [facility] Neutrophils (Bld) [#/Vol] 3.3 10*3/uL 2.0-7.7 [facility] Neutrophils/100 WBC (Bld) 55.4 % 47-70 [facility] WBC (Bld) [#/Vol] 6.0 10*3/uL 4.4-11.0 [facility] Blood erythrocytes count (nu mber/volume)Ordered By: Dr. Ulloa on 09-02-2022 RBC (Bld) [#/Vol] 4.28 10*6/uL 4.2-5.4 [facility] Blood hemoglobin measurement (mass/volume)Ordered By: Dr. Ulloa on 09-02-2022 Hemoglobin (Bld) [Mass/Vol] 14.9 g/dL 12.0-15.0 [facility] Blood lymphocytes/100 leukoc ytesOrdered By: Dr. Ulloa on 09-02-2022 Lymphocytes/100 WBC (Bld) 28.7 % 19-41 [facility] Blood monocytes/100 leukocyt esOrdered By: Dr. Ulloa on 09-02-2022 Monocytes/100 WBC (Bld) 11.9 % 0-10 [facility] Blood platelet mean volumeOr dered By: Dr. Ulloa on 09-02-2022 Platelet mean volume (Bld) [Entitic vol] 9.4 fL 6.2-12.0 [facility] Determination of erythrocyte mean corpuscular volume (MCV)Ordered By: Dr. Ulloa on 09-02-2022 MCV (RBC) [Entitic vol] 102.8 fL 81-99 [facility] Hematocrit Auto (Bld) [Volum e fraction]Ordered By: Dr. Ulloa on 09-02-2022 Hematocrit (Bld) [Volume fraction] 44.0 % 37-47 [facility] Iron measurement (mass/mass) Ordered By: Dr. Ulloa on 09-02-2022 Iron (Unsp spec) [Mass/Mass] 45 ug/dL 50-170 [facility] Laboratory - Chemistry and C hemistry - challengeOrdered By: Dr. Ulloa on 09-02-2022 Cobalamin (Vitamin B12) [Mass/Vol] 255 pg/mL 211-911 [facility] - Hematology and Cell countsOrdered By: Dr. Ulloa on 09-02-2022 Erythrocyte distribution width (RBC) [Entitic vol] 50.5 fL 35.1-43.9 [facility] Erythrocyte distribution width (RBC) [Ratio] 13.2 % 11.6-14.6 [facility] Immature granulocytes/100 WBC (Bld) 0.300 % 0.0-0.9 [facility] Comment on above: IG% - Immature Granu locytes (promyelocytes, myelocytes and metamyelocytes) > 1% indicates that a LEFT SHIFT is Present. MCH (RBC) [Entitic mass] 34.8 pg 27.0-32.0 [facility] Nucleated RBC/100 WBC (Bld) [Ratio] 0 % 0-5 [facility] MCHC Auto (RBC) [Mass/Vol]Or dered By: Dr. Ulloa on 09-02-2022 MCHC (RBC) [Mass/Vol] 33.9 g/dL 32-36 [facility] No Panel InformationOrdered By: Dr. Ulloa on 09-02-2022 Total Iron Binding Capacity 321 ug/dL 250-450 [facility] Platelets bldOrdered By: Dr. Ulloa on 09-02-2022 Platelets (Bld) [#/Vol] 254 10*3/uL 150-450 [facility] Serum or plasma ferritin ibrahima surement (mass/volume)Ordered By: Dr. Ulloa on 09-02-2022 Ferritin [Mass/Vol] 26 ng/mL 8-252 [facility] Serum or plasma iron saturat ion measurement (mass fraction)Ordered By: Dr. Ulloa on 09-02-2022 Iron saturation [Mass fraction] 14.0 % 15.0-55.0 [facility] Absolute lymphocyte counton 06-11-2022 Lymphocytes Auto (Unsp spec) [#/Vol] 1.27 10*3/uL 0.83-4.51 [facility] Work Phone: Basophil percentageon 2021 Basophils/100 WBC (Bld) 1.3 % 0-1 [facility] Work Phone: Bilirubin [Mass/Vol] 0.40 mg/dL 0.20-1.00 [facility] Work Phone: Comment on above: For patients on eltr ombopag therapy, use of Dimension [place] TBIL is not recommended. Chloride [Moles/Vol] 109 mmol/L 98-107 [facility] Work Phone: Eosinophils/100 WBC (Bld) 2.3 % 0-5 [facility] Work Phone: Glucose [Mass/Vol] 115 mg/dL 74-106 [facility] Work Phone: Comment on above: Fasting Glucose resu lt from 100 to 125 mg/dL suggests IMPAIRED HOMEOSTASIS per A.D.A. criteria. Neutrophils (Bld) [#/Vol] 2.7 10*3/uL 2.0-7.7 [facility] Work Phone: Neutrophils/100 WBC (Bld) 57.2 % 47-70 [facility] Work Phone: Potassium [Moles/Vol] 3.9 mmol/L 3.5-5.1 [facility] Work Phone: Protein [Mass/Vol] 7.2 g/dL 6.4-8.2 [facility] Work Phone: Sodium [Moles/Vol] 141 mmol/L 136-145 [facility] Work Phone: WBC (Bld) [#/Vol] 4.7 10*3/uL 4.4-11.0 [facility] Work Phone: Blood erythrocytes count (nu mber/volume)on 06-11-2022 RBC (Bld) [#/Vol] 4.32 10*6/uL 4.2-5.4 [facility] Work Phone: Blood hemoglobin measurement (mass/volume)on 06-11-2022 Hemoglobin (Bld) [Mass/Vol] 14.9 g/dL 12.0-15.0 [facility] Work Phone: Blood lymphocytes/100 leukoc yteson 06-11-2022 Lymphocytes/100 WBC (Bld) 26.8 % 19-41 [facility] Work Phone: Blood monocytes/100 leukocyt eson 06-11-2022 Monocytes/100 WBC (Bld) 12.4 % 0-10 [facility] Work Phone: Blood platelet mean volumeon 06-11-2022 Platelet mean volume (Bld) [Entitic vol] 10.1 fL 6.2-12.0 [facility] Work Phone: Determination of erythrocyte mean corpuscular volume (MCV)on 06-11-2022 MCV (RBC) [Entitic vol] 104.6 fL 81-99 [facility] Work Phone: Hematocrit Auto (Bld) [Volum e fraction]on 06-11-2022 Hematocrit (Bld) [Volume fraction] 45.2 % 37-47 [facility] Work Phone: Laboratory - Chemistry and C hemistry - challengeon 06-11-2022 ALP [Catalytic activity/Vol] 127 U/L 45-117 [facility] Work Phone: ALT [Catalytic activity/Vol] 23 U/L 13-56 [facility] Work Phone: CO2 [Moles/Vol] 26.0 mmol/L 21.0-32.0 [facility] Work Phone: Globulin (S) [Mass/Vol] 3.6 g/dL 2.2-4.2 [facility] Work Phone: Urea nitrogen/Creatinine [Mass ratio] 15.0 mg/mg 10-20 [facility] Work Phone: Laboratory - Hematology and Cell countson 06-11-2022 Erythrocyte distribution width (RBC) [Entitic vol] 48.8 fL 35.1-43.9 [facility] Work Phone: Erythrocyte distribution width (RBC) [Ratio] 12.6 % 11.6-14.6 [facility] Work Phone: Immature granulocytes/100 WBC (Bld) 0.000 % 0.0-0.9 [facility] Work Phone: Comment on above: IG% - Immature Granu locytes (promyelocytes, myelocytes and metamyelocytes) > 1% indicates that a LEFT SHIFT is Present. MCH (RBC) [Entitic mass] 34.5 pg 27.0-32.0 [facility] Work Phone: Nucleated RBC/100 WBC (Bld) [Ratio] 0 % 0-5 [facility] Work Phone: MCHC Auto (RBC) [Mass/Vol]on 06-11-2022 MCHC (RBC) [Mass/Vol] 33.0 g/dL 32-36 [facility] Work Phone: No Panel Informationon 06-11 Estimated GFR (MDRD) Amer 102 mL/min >60 [facility] Work Phone: Comment on above: GFR Calc Estimated GFR (MDRD) Non-Af Amer 85 mL/min >60 [facility] Work Phone: Comment on above: Non- GFR Calc Thyroid Stimulating Hormone (TSH) 1.03 uIU/mL 0.358-3.74 [facility] Work Phone: Vitamin D 25-Hydroxy 41.0 ng/mL [facility] Work Phone: Comment on above: Vitamin D 25(OH) Sta tus Range Deficiency <20 ng/mL (50nmol/L) Insufficiency 20 - 30 ng/mL (50 - 75 nmol/L) Sufficiency 30 - 100 ng/mL (75 - 250 nmol/L) Toxicity >100 ng/mL (>250 nmol/L) Platelets bldon 06-11-2022 Platelets (Bld) [#/Vol] 238 10*3/uL 150-450 [facility] Work Phone: Serum or plasma albumin kamlesh urement (mass/volume)on 06-11-2022 Albumin [Mass/Vol] 3.6 g/dL 3.2-5.0 [facility] Work Phone: Serum or plasma albumin/glob ulin mass ratioon 06-11-2022 Albumin/Globulin [Mass ratio] 1.0 {ratio} 0.9-2.4 [facility] Work Phone: Serum or plasma calcium kamlesh urement (mass/volume)on 06-11-2022 Calcium [Mass/Vol] 9.1 mg/dL 8.5-10.1 [facility] Work Phone: Serum or plasma creatinine m easurement (mass/volume)on 06-11-2022 Creatinine [Mass/Vol] 0.74 mg/dL 0.55-1.02 [facility] Work Phone: Comment on above: The validity of the calculated GFR & GFRAA in patients over 70 years has not been determined. Clinical correlation is essential. Serum or plasma urea nitroge n measurement (mass/volume)on 06-11-2022 Urea nitrogen [Mass/Vol] 11 mg/dL 7-18 [facility] Work Phone: Thin prep Papanicolaou smear with manual screeningon 06-11-2022 Thin prep Papanicolaou smear with manual screening 16 U/L 15-37 [facility] Work Phone: Thin prep Papanicolaou smear with manual screening 6 5-15 [facility] Work Phone: Absolute lymphocyte counton 04-23-2022 Lymphocytes Auto (Unsp spec) [#/Vol] 1.28 10*3/uL 0.83-4.51 [facility] Work Phone: Basophil percentageon 2021 Basophils/100 WBC (Bld) 0.9 % 0-1 [facility] Work Phone: Chloride [Moles/Vol] 108 mmol/L 98-107 [facility] Work Phone: Eosinophils/100 WBC (Bld) 1.9 % 0-5 [facility] Work Phone: Glucose [Mass/Vol] 147 mg/dL 74-106 [facility] Work Phone: Comment on above: Fasting Glucose resu lt greater than or equal to 126 mg/dL suggests DIABETES MELLITUS per A.D.A. criteria. Neutrophils (Bld) [#/Vol] 3.8 10*3/uL 2.0-7.7 [facility] Work Phone: Neutrophils/100 WBC (Bld) 65.5 % 47-70 [facility] Work Phone: Potassium [Moles/Vol] 3.9 mmol/L 3.5-5.1 [facility] Work Phone: Sodium [Moles/Vol] 141 mmol/L 136-145 [facility] Work Phone: WBC (Bld) [#/Vol] 5.8 10*3/uL 4.4-11.0 [facility] Work Phone: Blood erythrocytes count (nu mber/volume)on 04-23-2022 RBC (Bld) [#/Vol] 4.01 10*6/uL 4.2-5.4 [facility] Work Phone: Blood hemoglobin measurement (mass/volume)on 04-23-2022 Hemoglobin (Bld) [Mass/Vol] 13.5 g/dL 12.0-15.0 [facility] Work Phone: Blood lymphocytes/100 leukoc yteson 04-23-2022 Lymphocytes/100 WBC (Bld) 22.0 % 19-41 [facility] Work Phone: Blood monocytes/100 leukocyt eson 04-23-2022 Monocytes/100 WBC (Bld) 9.5 % 0-10 [facility] Work Phone: Blood platelet mean volumeon 04-23-2022 Platelet mean volume (Bld) [Entitic vol] 10.3 fL 6.2-12.0 [facility] Work Phone: Determination of erythrocyte mean corpuscular volume (MCV)on 04-23-2022 MCV (RBC) [Entitic vol] 104.7 fL 81-99 [facility] Work Phone: Erythrocyte sedimentation ra mark 04-23-2022 ESR (Bld) [Velocity] 34 mm/h 0-30 [facility] Work Phone: Hematocrit Auto (Bld) [Volum e fraction]on 04-23-2022 Hematocrit (Bld) [Volume fraction] 42.0 % 37-47 [facility] Work Phone: Laboratory - Chemistry and C hemistry - challengeon 04-23-2022 CO2 [Moles/Vol] 29.0 mmol/L 21.0-32.0 [facility] Work Phone: Urea nitrogen/Creatinine [Mass ratio] 14.0 mg/mg 10-20 [facility] Work Phone: Laboratory - Hematology and Cell countson 04-23-2022 Erythrocyte distribution width (RBC) [Entitic vol] 51.4 fL 35.1-43.9 [facility] Work Phone: Erythrocyte distribution width (RBC) [Ratio] 13.2 % 11.6-14.6 [facility] Work Phone: Immature granulocytes/100 WBC (Bld) 0.200 % 0.0-0.9 [facility] Work Phone: Comment on above: IG% - Immature Granu locytes (promyelocytes, myelocytes and metamyelocytes) > 1% indicates that a LEFT SHIFT is Present. MCH (RBC) [Entitic mass] 33.7 pg 27.0-32.0 [facility] Work Phone: Nucleated RBC/100 WBC (Bld) [Ratio] 0 % 0-5 [facility] Work Phone: MCHC Auto (RBC) [Mass/Vol]on 04-23-2022 MCHC (RBC) [Mass/Vol] 32.1 g/dL 32-36 [facility] Work Phone: No Panel Informationon 04-23 Estimated GFR (MDRD) Amer 106 mL/min >60 [facility] Work Phone: Comment on above: GFR Calc Estimated GFR (MDRD) Non-Af Amer 88 mL/min >60 [facility] Work Phone: Comment on above: Non- GFR Calc Platelets bldon 04-23-2022 Platelets (Bld) [#/Vol] 272 10*3/uL 150-450 [facility] Work Phone: Serum or plasma C reactive p rotein measurement (mass/volume)on 04-23-2022 CRP [Mass/Vol] mg/L 0.0-3.0 [facility] Work Phone: Comment on above: C-Reactive Protein ( CRP) provides useful information for thediagnosis, therapy and monitoring of inflammatory processesand associated diseases. For the evaluation of Relative Riskfor Cardiovascular Disease, a High Sensitivity CRP (HSCRP)should be ordered. Serum or plasma calcium kamlesh urement (mass/volume)on 04-23-2022 Calcium [Mass/Vol] 8.9 mg/dL 8.5-10.1 [facility] Work Phone: Serum or plasma creatinine m easurement (mass/volume)on 04-23-2022 Creatinine [Mass/Vol] 0.71 mg/dL 0.55-1.02 [facility] Work Phone: Comment on above: The validity of the calculated GFR & GFRAA in patients over 70 years has not been determined. Clinical correlation is essential. Serum or plasma urea nitroge n measurement (mass/volume)on 04-23-2022 Urea nitrogen [Mass/Vol] 10 mg/dL 7-18 [facility] Work Phone: Thin prep Papanicolaou smear with manual screeningon 04-23-2022 Thin prep Papanicolaou smear with manual screening 4 5-15 [facility] Work Phone: Absolute lymphocyte counton 02-19-2022 Lymphocytes Auto (Unsp spec) [#/Vol] 1.26 10*3/uL 0.83-4.51 [facility] Work Phone: Basophil percentageon 2021 Basophils/100 WBC (Bld) 0.7 % 0-1 [facility] Work Phone: Eosinophils/100 WBC (Bld) 1.2 % 0-5 [facility] Work Phone: Neutrophils (Bld) [#/Vol] 4.1 10*3/uL 2.0-7.7 [facility] Work Phone: Neutrophils/100 WBC (Bld) 67.7 % 47-70 [facility] Work Phone: WBC (Bld) [#/Vol] 6.1 10*3/uL 4.4-11.0 [facility]: Blood erythrocytes count (nu mber/volume)on 02-19-2022 RBC (Bld) [#/Vol] 4.11 10*6/uL 4.2-5.4 [facility]: Blood hemoglobin measurement (mass/volume)on 02-19-2022 Hemoglobin (Bld) [Mass/Vol] 13.7 g/dL 12.0-15.0 [facility] Work Phone: Blood lymphocytes/100 leukoc yteson 02-19-2022 Lymphocytes/100 WBC (Bld) 20.8 % 19-41 [facility] Work Phone: Blood monocytes/100 leukocyt eson 02-19-2022 Monocytes/100 WBC (Bld) 9.4 % 0-10 [facility] Work Phone: Blood platelet mean volumeon 02-19-2022 Platelet mean volume (Bld) [Entitic vol] 10.0 fL 6.2-12.0 [facility] Work Phone: Determination of erythrocyte mean corpuscular volume (MCV)on 02-19-2022 MCV (RBC) [Entitic vol] 102.9 fL 81-99 [facility] Work Phone: Hematocrit Auto (Bld) [Volum e fraction]on 02-19-2022 Hematocrit (Bld) [Volume fraction] 42.3 % 37-47 [facility] Work Phone: Hemoglobin in reticulocytes (mass per reticulocyte)Ordered By: Dr. Ulloa on 02-19-2022 Hemoglobin (Reticulocytes) [Entitic mass] 36.3 pg 30-35 [facility] Iron measurement (mass/mass) on 02-19-2022 Iron (Unsp spec) [Mass/Mass] 31 ug/dL 50-170 [facility] Work Phone: Laboratory - Hematology and Cell countson 02-19-2022 Erythrocyte distribution width (RBC) [Entitic vol] 49.5 fL 35.1-43.9 [facility] Work Phone: Erythrocyte distribution width (RBC) [Ratio] 13.0 % 11.6-14.6 [facility] Work Phone: Immature granulocytes/100 WBC (Bld) 0.200 % 0.0-0.9 [facility] Work Phone: Comment on above: IG% - Immature Granu locytes (promyelocytes, myelocytes and metamyelocytes) > 1% indicates that a LEFT SHIFT is Present. MCH (RBC) [Entitic mass] 33.3 pg 27.0-32.0 [facility] Work Phone: Nucleated RBC/100 WBC (Bld) [Ratio] 0 % 0-5 [facility] Work Phone: MCHC Auto (RBC) [Mass/Vol]on 02-19-2022 MCHC (RBC) [Mass/Vol] 32.4 g/dL 32-36 [facility] Work Phone: No Panel InformationOrdered By: Dr. Ulloa on 02-19-2022 Immature Reticulocyte Fraction 18.80 % 3.00-15.90 [facility] Reticulocyte Count 1.83 % 0.5-1.5 [facility] No Panel Informationon 02-19 Total Iron Binding Capacity 366 ug/dL 250-450 [facility] Work Phone: Platelets bldon 02-19-2022 Platelets (Bld) [#/Vol] 246 10*3/uL 150-450 [facility] Work Phone: Serum or plasma ferritin ibrahima surement (mass/volume)on 02-19-2022 Ferritin [Mass/Vol] 28 ng/mL 8-252 [facility] Work Phone: Serum or plasma iron saturat ion measurement (mass fraction)on 02-19-2022 Iron saturation [Mass fraction] 8.5 % 15.0-55.0 [facility] Work Phone: Absolute lymphocyte counton 12-02-2021 Lymphocytes Auto (Unsp spec) [#/Vol] 1.37 10*3/uL 0.83-4.51 [facility] Work Phone: Basophil percentageon 2021 Basophils/100 WBC (Bld) 1.2 % 0-1 [facility] Work Phone: Bilirubin [Mass/Vol] 0.20 mg/dL 0.20-1.00 [facility] Work Phone: Comment on above: For patients on eltr ombopag therapy, use of Dimension [place] TBIL is not recommended. Chloride [Moles/Vol] 109 mmol/L 98-107 [facility] Work Phone: Eosinophils/100 WBC (Bld) 2.7 % 0-5 [facility] Work Phone: Glucose [Mass/Vol] 126 mg/dL 74-106 [facility] Work Phone: Comment on above: Fasting Glucose resu lt greater than or equal to 126 mg/dL suggests DIABETES MELLITUS per A.D.A. criteria. Neutrophils (Bld) [#/Vol] 3.6 10*3/uL 2.0-7.7 [facility] Work Phone: Neutrophils/100 WBC (Bld) 61.2 % 47-70 [facility] Work Phone: Potassium [Moles/Vol] 3.9 mmol/L 3.5-5.1 [facility] Work Phone: Protein [Mass/Vol] 6.6 g/dL 6.4-8.2 [facility] Work Phone: Sodium [Moles/Vol] 141 mmol/L 136-145 [facility] Work Phone: WBC (Bld) [#/Vol] 5.9 10*3/uL 4.4-11.0 [facility] Work Phone: Blood erythrocytes count (nu mber/volume)on 12-02-2021 RBC (Bld) [#/Vol] 3.63 10*6/uL 4.2-5.4 [facility] Work Phone: Blood hemoglobin measurement (mass/volume)on 12-02-2021 Hemoglobin (Bld) [Mass/Vol] 12.1 g/dL 12.0-15.0 [facility] Work Phone: Blood lymphocytes/100 leukoc yteson 12-02-2021 Lymphocytes/100 WBC (Bld) 23.1 % 19-41 [facility] Work Phone: Blood monocytes/100 leukocyt eson 12-02-2021 Monocytes/100 WBC (Bld) 11.5 % 0-10 [facility] Work Phone: Blood platelet mean volumeon 12-02-2021 Platelet mean volume (Bld) [Entitic vol] 10.2 fL 6.2-12.0 [facility] Work Phone: Determination of erythrocyte mean corpuscular volume (MCV)on 12-02-2021 MCV (RBC) [Entitic vol] 106.9 fL 81-99 [facility] Work Phone: Hematocrit Auto (Bld) [Volum e fraction]on 12-02-2021 Hematocrit (Bld) [Volume fraction] 38.8 % 37-47 [facility] Work Phone: Laboratory - Chemistry and C hemistry - challengeon 12-02-2021 ALP [Catalytic activity/Vol] 112 U/L 45-117 [facility] Work Phone: ALT [Catalytic activity/Vol] 24 U/L 13-56 [facility] Work Phone: CO2 [Moles/Vol] 28.0 mmol/L 21.0-32.0 [facility] Work Phone: Globulin (S) [Mass/Vol] 3.2 g/dL 2.2-4.2 [facility] Work Phone: Urea nitrogen/Creatinine [Mass ratio] 18.8 mg/mg 10-20 [facility] Work Phone: Laboratory - Hematology and Cell countson 12-02-2021 Erythrocyte distribution width (RBC) [Entitic vol] 50.8 fL 35.1-43.9 [facility] Work Phone: Erythrocyte distribution width (RBC) [Ratio] 12.8 % 11.6-14.6 [facility] Work Phone: Immature granulocytes/100 WBC (Bld) 0.300 % 0.0-0.9 [facility] Work Phone: Comment on above: IG% - Immature Granu locytes (promyelocytes, myelocytes and metamyelocytes) > 1% indicates that a LEFT SHIFT is Present. MCH (RBC) [Entitic mass] 33.3 pg 27.0-32.0 [facility] Work Phone: Nucleated RBC/100 WBC (Bld) [Ratio] 0 % 0-5 [facility] Work Phone: MCHC Auto (RBC) [Mass/Vol]on 12-02-2021 MCHC (RBC) [Mass/Vol] 31.2 g/dL 32-36 [facility] Work [facility]: No Panel Informationon 12-02 Estimated GFR (MDRD) Amer 110 mL/min >60 [facility] Work Phone: Comment on above: GFR Calc Estimated GFR (MDRD) Non-Af Amer 91 mL/min >60 [facility] Work Phone: Comment on above: Non- GFR Calc Thyroid Stimulating Hormone (TSH) 3.07 uIU/mL 0.358-3.74 [facility] Work Phone: Platelets bldon 12-02-2021 Platelets (Bld) [#/Vol] 323 10*3/uL 150-450 [facility] Work Phone: Serum or plasma albumin kamlesh urement (mass/volume)on 12-02-2021 Albumin [Mass/Vol] 3.4 g/dL 3.2-5.0 [facility] Work Phone: Serum or plasma albumin/glob ulin mass ratioon 12-02-2021 Albumin/Globulin [Mass ratio] 1.1 {ratio} 0.9-2.4 [facility] Work Phone: Serum or plasma calcium kamlesh urement (mass/volume)on 12-02-2021 Calcium [Mass/Vol] 8.3 mg/dL 8.5-10.1 [facility] Work Phone: Serum or plasma creatinine m easurement (mass/volume)on 12-02-2021 Creatinine [Mass/Vol] 0.69 mg/dL 0.55-1.02 [facility] Work Phone: Comment on above: The validity of the calculated GFR & GFRAA in patients over 70 years has not been determined. Clinical correlation is essential. Serum or plasma urea nitroge n measurement (mass/volume)on 12-02-2021 Urea nitrogen [Mass/Vol] 13 mg/dL 7-18 [facility] Work Phone: Thin prep Papanicolaou smear with manual screeningon 12-02-2021 Thin prep Papanicolaou smear with manual screening 13 U/L 15-37 [facility] Work Phone: Thin prep Papanicolaou smear with manual screening 4 5-15 [facility] Work Phone: Absolute lymphocyte counton 11-06-2021 Lymphocytes Auto (Unsp spec) [#/Vol] 1.05 10*3/uL 0.83-4.51 [facility] Work Phone: Basophil percentageon 2021 Basophils/100 WBC (Bld) 0.8 % 0-1 [facility] Work Phone: Eosinophils/100 WBC (Bld) 1.7 % 0-5 [facility] Work Phone: Neutrophils (Bld) [#/Vol] 3.6 10*3/uL 2.0-7.7 [facility] Work Phone: Neutrophils/100 WBC (Bld) 68.7 % 47-70 [facility] Work Phone: WBC (Bld) [#/Vol] 5.2 10*3/uL 4.4-11.0 [facility]: Blood erythrocytes count (nu mber/volume)on 11-06-2021 RBC (Bld) [#/Vol] 3.36 10*6/uL 4.2-5.4 [facility] Work Phone: Blood hemoglobin measurement (mass/volume)on 11-06-2021 Hemoglobin (Bld) [Mass/Vol] 11.6 g/dL 12.0-15.0 [facility] Work Phone: Blood lymphocytes/100 leukoc yteson 11-06-2021 Lymphocytes/100 WBC (Bld) 20.0 % 19-41 [facility] Work Phone: Blood monocytes/100 leukocyt eson 11-06-2021 Monocytes/100 WBC (Bld) 8.4 % 0-10 [facility] Work Phone: Blood platelet mean volumeon 11-06-2021 Platelet mean volume (Bld) [Entitic vol] 9.8 fL 6.2-12.0 [facility] Work Phone: Determination of erythrocyte mean corpuscular volume (MCV)on 11-06-2021 MCV (RBC) [Entitic vol] 109.5 fL 81-99 [facility] Work Phone: Hematocrit Auto (Bld) [Volum e fraction]on 11-06-2021 Hematocrit (Bld) [Volume fraction] 36.8 % 37-47 [facility] Work Phone: Iron measurement (mass/mass) on 11-06-2021 Iron (Unsp spec) [Mass/Mass] 64 ug/dL 50-170 [facility] Work Phone: Laboratory - Hematology and Cell countson 11-06-2021 Erythrocyte distribution width (RBC) [Entitic vol] 57.4 fL 35.1-43.9 [facility] Work Phone: Erythrocyte distribution width (RBC) [Ratio] 14.2 % 11.6-14.6 [facility] Work Phone: Immature granulocytes/100 WBC (Bld) 0.400 % 0.0-0.9 [facility] Work Phone: Comment on above: IG% - Immature Granu locytes (promyelocytes, myelocytes and metamyelocytes) > 1% indicates that a LEFT SHIFT is Present. MCH (RBC) [Entitic mass] 34.5 pg 27.0-32.0 [facility] Work Phone: Nucleated RBC/100 WBC (Bld) [Ratio] 0 % 0-5 [facility] Work Phone: MCHC Auto (RBC) [Mass/Vol]on 11-06-2021 MCHC (RBC) [Mass/Vol] 31.5 g/dL 32-36 [facility] Work Phone: No Panel Informationon 11-06 Total Iron Binding Capacity 343 ug/dL 250-450 [facility] Work Phone: Platelets bldon 11-06-2021 Platelets (Bld) [#/Vol] 268 10*3/uL 150-450 [facility] Work Phone: Serum or plasma ferritin ibrahima surement (mass/volume)on 11-06-2021 Ferritin [Mass/Vol] 38 ng/mL 8-252 [facility] Work Phone: Serum or plasma iron saturat ion measurement (mass fraction)on 11-06-2021 Iron saturation [Mass fraction] 18.7 % 15.0-55.0 [facility] Work Phone: Basophil percentageon 2021 Bilirubin [Mass/Vol] 0.20 mg/dL 0.20-1.00 [facility] Comment on above: For patients on eltr ombopag therapy, use of Dimension [place] TBIL is not recommended. Chloride [Moles/Vol] 112 mmol/L High 98-107 [facility] Glucose [Mass/Vol] 101 mg/dL 74-106 [facility] Comment on above: Fasting Glucose resu lt from 100 to 125 mg/dL suggests IMPAIRED HOMEOSTASIS per A.D.A. criteria. Potassium [Moles/Vol] 4.0 mmol/L 3.5-5.1 [facility] Protein [Mass/Vol] 6.7 g/dL 6.4-8.2 [facility] Sodium [Moles/Vol] 142 mmol/L 136-145 [facility] [employer] mix RAST testo n 09-17-2021 Anion gap [Moles/Vol] 3 mmol/L Low 5-15 [facility] AST [Catalytic activity/Vol] 8 U/L Low 15-37 [facility] Laboratory - Chemistry and C hemistry - challengeon 09-17-2021 ALP [Catalytic activity/Vol] 97 U/L 45-117 [facility] ALT [Catalytic activity/Vol] 17 U/L 13-56 [facility] CO2 [Moles/Vol] 27.0 mmol/L 21.0-32.0 [facility] Globulin (S) [Mass/Vol] 3.4 g/dL 2.2-4.2 [facility] Urea nitrogen/Creatinine [Mass ratio] 20.1 mg/mg High 10-20 [facility] No Panel Informationon 09-17 Estimated Creatinine Clearance Calc 89.84 ml/min [facility] Estimated GFR (MDRD) Amer 130 mL/min >60 [facility] Comment on above: GFR Calc Estimated GFR (MDRD) Non-Af Amer 108 mL/min >60 [facility] Comment on above: Non- GFR Calc Thyroid Stimulating Hormone (TSH) 2.37 uIU/mL 0.358-3.74 [facility] Serum or plasma albumin kamlesh urement (mass/volume)on 09-17-2021 Albumin [Mass/Vol] 3.3 g/dL 3.2-5.0 [facility] Serum or plasma albumin/glob ulin mass ratioon 09-17-2021 Albumin/Globulin [Mass ratio] 1.0 {ratio} 0.9-2.4 [facility] Serum or plasma calcium kamlesh urement (mass/volume)on 09-17-2021 Calcium [Mass/Vol] 8.5 mg/dL 8.5-10.1 [facility] Serum or plasma creatinine m easurement (mass/volume)on 09-17-2021 Creatinine [Mass/Vol] 0.60 mg/dL 0.55-1.02 [facility] Comment on above: The validity of the calculated GFR & GFRAA in patients over 70 years has not been determined. Clinical correlation is essential. Serum or plasma urea nitroge n measurement (mass/volume)on 09-17-2021 Urea nitrogen [Mass/Vol] 12 mg/dL 7-18 [facility] Thin prep Papanicolaou smear with manual screeningon 09-17-2021 Thin prep Papanicolaou smear with manual screening 8 U/L 15-37 [facility] Thin prep Papanicolaou smear with manual screening 3 5-15 [facility] CNPNon 08-22-2021 CNPN Telephone (AKPRAD) ANGELES LARIOS ([id number]) 1960 F Date Time Provider Department 08/22/21 [...] type of procedure is only done at [facility]. Please ask her to call and make an appointment with either Dr. Ge Anderson or Dr. Rogelio Wu at [facility]. Phone number is [phone]. Debbie Vallecillo 08/22/2021 9:23 AM Signed Called the patient and relayed the message the patient acknowledged that she understood. A [employer] message was also sent to the patient. [...] asymptomatic, bilateral [I65.*09/06/2012 Embolus of femoral artery ([facility]) [I74.3] 06/25/2017 Coronary artery disease involving [place]*06/27/2017 Essential hypertension [I10] 06/27/2017 Mixed hyperlipidemia [E78.2] 06/27/2017 Episode of recurrent major depressive disorder *05/10/2018 Acquired hypothyroidism [E03.9] 05/10/2018 GERD (gastroesophageal reflux disease) [K21.9] 05/10/2018 PVD (peripheral vascular disease) ([facility]) [I73.9] 05/10/2018 PATRICA (obstructive sleep apnea) [G47.33] [...] Encounter Status:Closed by DEBBIE VALLECILLO on 08/22/21 [facility] ANES POSTPROC EVALon 021 ANES POSTPROC EVAL HNO ID: [id number] Author: Manuel Solis MD Service: Anesthesiology Author Type: Physician Type: Anesthesia Postprocedure Evaluation Filed: 07/19/2021 12:21 PM Note Text: POST ANESTHESIA EVALUATION NOTE : 1960 Procedure Summary Date: 07/19/21 Room / Location: [facility] 23 / [facility] Anesthesia Start: 938 Anesthesia Stop: 1038 Procedures: [...] July 19, 2021 TIME: 12:21 PM CSN: [id number] Normal [facility] ANES PRE-OPon 07-19-2021 ANES PRE-OP HNO ID: [id number] Author: Manuel Solis MD Service: Anesthesiology Author [...] asymptomatic, bilateral (+) Coronary artery disease involving [place] coronary artery of [place] heart without angina pectoris (+) Embolism and [...] July 19, 2021 TIME: 8:13 AM CSN: [id number] Normal [facility] HISTORY PHYSICALon HISTORY PHYSICAL HNO ID: [id number] Author: Nohelia Tee APRN.JENNIFER Service: Anesthesiology Author [...] On levothyroxine - Coronary artery disease involving [place] coronary artery of [place] heart without angina pectoris 06/27/2017 ASA, plavix - CVA (cerebral vascular accident) ([facility]) 06/2012 - Embolus of femoral artery ([facility]) 06/25/2017 on right - Episode of recurrent major depressive disorder ([facility]) 05/10/2018 Duloxetine,wellbutrin , varenicline - Essential hypertension [...] apnea) 05/10/2018 - PVD (peripheral vascular disease) ([facility]) 05/10/2018 - Snoring PAST SURGICAL HISTORY Procedure Laterality Date - APPENDECTOMY 1998 - COLONOSCOP W/ OR W/O BRSH SPEC 03/10/2021 - EGD W/O OR W/BRUSH/WASH 03/10/2021 - INSERT CATH,ART,PERCUT,SHORT TERM 10/13/2012 RIGHT - PAST SURGICAL HISTORY OF 2008 cardiac stents x 3 placed - PAST SURGICAL HISTORY OF 06/25/2017 Rt [employer]IST embolectomy - THROMBOENDARTECTMY NECK,NECK INCIS 10/13/2012 LEFT [...] CVA no (more content not included)... Normal [facility] NURSING PROGon 07-19-2021 NURSING PROG HNO ID: [id number] Author: Maia Alves RN Service: Nursing Author [...] SB Capsule Endoscope (Olympus/Given) without difficulty. Lot#: [id number] Date of expiration: 09-11-2022 POST-PROCEDURE Post-capsule instructions reviewed and written information was provided to patient. Return to [facility] 07-22-21 SIGNATURE: Maia Alves RN PATIENT NAME: Angeles Larios DATE: July 19, 2021 TIME: 10:30 AM CONTACT #: [phone] [facility] NURSING PROG HNO ID: [id number] Author: Maia Alves RN Service: Nursing Author [...] at Endoscopy window on 3rd floor of senior care assistant center. DIET: Do not eat or drink [...] cell phones, computers, remote TV appliances, microwaves, Xan[employer] players and digital cameras. Because the equipment [...] by your nurse for equipment removal. Normal [facility] OPERATIVE NOon 07-19-2021 OPERATIVE NO HNO ID: [id number] Author: Leonard Urena MD Service: Gastroenterology Author Type: Physician Type: Operative Report Filed: 07/19/2021 10:43 AM Note Text: OPERATIVE/PROCEDURE REPORT LOG ID: [id number] Surgery/Procedure Date: 07/19/2021 Incision/Procedure Start Time: 9:45 AM Incision Close/Procedure End Time: 10:28 AM Surgeon(s)/Procedural ist(s) and Pulp Mixer(s): Surgeon(s) and Role: * Leonard Urena MD [...] noted. ?She has had prior investigations at [facility]. At her last EGD, oozing Dieulafoy lesions [...] endoscopy. She would likely need referral to [facility] for consideration of antegrade double-balloon enteroscopy for further treatment of her AVMs. I/primary surgeon/proceduralist performed the entire procedure. Leonard Urena MD MPH [facility] SIGNATURE: Leonard Urena MD MPH [facility] PATIENT NAME: Angeles Larios DATE: July 19, 2021 TIME: 10:37 AM PAGER/CONTACT #: [phone] Normal [facility] CNOVon 07-15-2021 CNOV Office Visit (VASSMN ) RICANGELES Carson ([id number]) 1960 F Date Time Provider Department 07/15/21 8:45 AM HANK BROWN During your visit today, we recorded the following information about you: Pulse Blood pressure 57/minute 95/54 Hank Brown MD 07/15/2021 9:06 AM Signed DATE: 02/18/2019.SURGEON: Hank Brown M.D. SURGER: Left carotid endarterectomy with bovine pericardial patch angioplasty and completion intraoperative duplex. ? DATE OF SURGERY: 06/25/2017 SURGEON: Celine Correa MD Acute Harper IIb right lower extremity ischemia. PROCEDURE: Right common femoral embolectomy. Here for f/u of carotid ASO and?Recurrent left internal carotid 90% stenosis. We did a redo left cea after insurance denied a stent in January 2019. She has also had a femoral embolectomy in the past. She remains on anticoagulation due to her prior embolic events. Heart , Vascular and Thoracic [place] DEPARTMENT OF VASCULAR SURGERY OUTPATIENT VISIT DATE [...] artery disease) - Coronary artery disease involving [place] coronary artery of [place] heart without angina pectoris 06/27/2017 ASA, plavix - CVA (cerebral vascular accident) ([facility]) 06/2012 - Embolus of femoral artery ([facility]) 06/25/2017 on right - Episode of recurrent major depressive disorder ([facility]) 05/10/2018 Duloxetine,wellbutrin , varenicline - Essential hypertension [...] apnea) 05/10/2018 - PVD (peripheral vascular disease) ([facility]) 05/10/2018 - Snoring PAST SURGICAL HISTORY Procedure Laterality Date - APPENDECTOMY 1998 - COLONOSCOP W/ OR W/O BRSH SPEC 03/10/2021 - EGD W/O OR W/BRUSH/WASH 03/10/2021 - INSERT CATH,ART,PERCUT,SHORT TERM 10/13/2012 RIGHT - PAST SURGICAL HISTORY OF 2008 cardiac stents x 3 placed - PAST SURGICAL HISTORY OF 06/25/2017 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 I (more content not included)... Normal [facility] Blood manual differential co mment interpretation (narrative result)on 07-10-2021 Manual differential comment Rey (Bld) [Interp] SCANNED [facility] Blood polychromasia detectio n by light microscopyon 07-10-2021 Polychromasia LM Ql (Bld) 1+ [facility] - Hematology and Cell countson 07-10-2021 Anisocytosis Ql (Bld) 2+ [facility] Macrocytes detectionon 07-10 Macrocytes Ql (Bld) 1+ [facility] Thin prep Papanicolaou smear with manual screeningon 07-10-2021 Thin prep Papanicolaou smear with manual screening 1+ [facility] CNPNon 07-01-2021 CNPN Telephone (AGGASTACC ) ANGELES LARIOS ([id number]) 1960 F Date Time Provider Department 07/01/21 LEONARD URENA AGGASTACC During your visit today, we recorded the following information about you: Debbie Vallecillo 07/01/2021 11:42 AM Signed Surgery Checklist Type: EGD W/PUSH ENTERSCOPY Admission Type: outpatient Anesthesia: MAC Date: 07/19/21 Arrival Time: 08:15 am Surgery Time: 09:45 am Location: [facility] Prep mailed to patient. Debbie Vallecillo Allergies [...] (HCC) [I74.3] 06/25/2017 Coronary artery disease involving [place] samano*06/27/2017 Essential hypertension [I10] 06/27/2017 Mixed hyperlipidemia [E78.2] 06/27/2017 Episode of recurrent major depressive disorder *05/10/2018 Acquired hypothyroidism [E03.9] 05/10/2018 GERD (gastroesophageal reflux disease) [K21.9] 05/10/2018 PVD (peripheral vascular disease) ([facility]) [I73.9] 05/10/2018 PATRICA (obstructive sleep apnea) [G47.33] 05/10/2018 Fibromyalgia [M79.7] 05/10/2018 Irritable bowel syndrome with both constipation*05/10/20 18 Diabetes mellitus ([facility]) [E11.9] 05/10/2018 Iron deficiency anemia [D50.9] 05/10/2018 HTN (hypertension) [I10] CVA (cerebral vascular accident) ([facility]) [I63.9] CAD (coronary artery disease) [I25.10] Obesity, Class III, BMI >= 40 [E66.01] 01/24/2019 Carotid stenosis [I65.29] 02/18/2019 Nicotine use disorder, F17.2 [F17.200] 02/20/2019 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 Murmur [R01.1] Encounter Status:Closed by DEBBIE VALLECILLO on 07/01/21 [facility] CNPN Telephone (AGGASTACC ) ANGELES LARIOS ([id number]) 1960 F Date Time Provider Department 07/01/21 [...] bleeding sites. Please arrange push enteroscopy at [facility]. Diagnosis, iron deficiency anemia Debbie Vallecillo 07/01/2021 [...] (HCC) [I74.3] 06/25/2017 Coronary artery disease involving [place] samano*06/27/2017 Essential hypertension [I10] 06/27/2017 Mixed hyperlipidemia [E78.2] 06/27/2017 Episode of recurrent major depressive disorder *05/10/2018 Acquired hypothyroidism [E03.9] 05/10/2018 GERD (gastroesophageal reflux disease) [K21.9] 05/10/2018 PVD (peripheral vascular disease) ([facility]) [I73.9] 05/10/2018 PATRICA (obstructive sleep apnea) [G47.33] [...] Status:Closed by DEBBIE VALLECILLO on 07/01/21 Normal [facility] CBC and Differentialon 06-24 Abs Baso 0.07 k/uL Normal <0.11 [facility] Comment on above: Performed By: #### ESTRELLA HERNANDEZ FERR #### [facility] [employer] [address] [place], [place] [address] Abs [place] 0.57 k/uL Normal <0.87 [facility] Comment on above: Performed By: #### ESTRELLA HERNANDEZ FERR #### [facility] [employer] [address] [place] [address] Abs Neut 4.07 k/uL Normal 1.45-7.50 [facility] Comment on above: Performed By: #### Rosemary SMITH CBCDIF, FERR #### [place] [address] Absolute nRBC <0.01 Normal <0.01 [facility] Comment on above: Performed By: #### Rosemary SMITH, CBCDIF, FERR #### [place] [address] Basophils/100 WBC (Bld) 1.1 % Normal [facility] Comment on above: Performed By: #### Rosemary SMITH, CBCDIF, FERR #### [place] [address] DTYPE Auto Diff Normal [facility] Comment on above: Performed By: #### Rosemary SMITH CBCDIF, FERR #### [place] [address] Eosinophils (Bld) [#/Vol] 0.12 10*3/uL Normal <0.46 [facility] Comment on above: Performed By: #### Rosemary SMITH, CBCDIF, FERR #### [place] [address] Eosinophils/100 WBC (Bld) 1.9 % Normal [facility] Comment on above: Performed By: #### Rosemary SMITH, CBCDIF, FERR #### [place] [address] Erythrocyte distribution width (RBC) [Ratio] 17.7 % High 11.5-15.0 [facility] Comment on above: Performed By: #### Rosemary SMITH, CBCDIF, FERR #### [place] [address] Hematocrit (Bld) [Volume fraction] 33.3 % Low 36.0-46.0 [facility] Comment on above: Performed By: #### Rosemary SMITH, CBCDIF, FERR #### [place] [id number] [place] [address] Hemoglobin (Bld) [Mass/Vol] 9.2 g/dL Low 11.5-15.5 [facility] Comment on above: Performed By: #### Rosemary SMITH, CBCDIF, FERR #### [place] [address] Lymphocytes (Bld) [#/Vol] 1.41 10*3/uL Normal 1.00-4.00 [facility] Comment on above: Performed By: #### Rosemary SMITH, CBCDIF, FERR #### [place] [address] Lymphocytes/100 WBC (Bld) 22.6 % Normal [facility] Comment on above: Performed By: #### Rosemary SMITH, CBCDIF, FERR #### [place] [address] MCH 28.9 pG Normal 26.0-34.0 [facility] Comment on above: Performed By: #### Rosemary SMITH, CBCDIF, FERR #### [place] [id number] MCHC (RBC) [Mass/Vol] 27.6 g/dL Low 30.5-36.0 [facility] Comment on above: Performed By: #### Rosemary SMITH, CBCDIF, FERR #### [place] [id number] [place] [address] MCV (RBC) [Entitic vol] 104.7 fL High 80.0-100.[address] [facility] Comment on above: Performed By: #### Rosemary SMITH, CBCDIF, FERR #### [place] [address] Monocytes/100 WBC (Bld) 9.1 % Normal [facility] Comment on above: Performed By: #### Rosemary SMITH, CBCDIF, FERR #### [place] [id number] [place] [address] Neutrophils/100 WBC (Bld) 65.3 % Normal [facility] Comment on above: Performed By: #### Rosemary SMITH, CBCDIF, FERR #### [place] [address] NRBCs 0.0 /100 WBC Normal 0 [facility] Comment on above: Performed By: #### Rosemary SMITH CBCDIF, FERR #### [place] [address] Platelet mean volume (Bld) [Entitic vol] 11.3 fL Normal 9.0-12.7 [facility] Comment on above: Performed By: #### Rosemary SMITH CBCDIF, FERR #### [place] [address] Platelets (Bld) [#/Vol] 296 10*3/uL Normal 150-400 [facility] Comment on above: Performed By: #### Rosemary SMITH, CBCDIF, FERR #### [place] [address] RBC (Bld) [#/Vol] 3.18 10*6/uL Low 3.90-5.20 [facility] Comment on above: Performed By: #### Rosemary SMITH, CBCDIF, FERR #### [place] [address] WBC (Bld) [#/Vol] 6.24 10*3/uL Normal 3.70-11.00 [facility] Comment on above: Performed By: #### Rosemary SMITH, CBCDIF, FERR #### [place] [address] Ferritinon 06-24-2021 Ferritin [Mass/Vol] 91.7 ng/mL Normal 14.7-205.1 [facility] Comment on above: Performed By: #### I GIOVANNI, CBCDIF, FERR #### [facility] [address] [place], [place] [address] Iron and TIBCon 06-24-2021 Iron [Mass/Vol] 30 ug/dL Low 41-186 [facility] Comment on above: Performed By: #### I GIOVANNI, CBCDIF, FERR #### [facility] [address] [place] [address] TIBC 406 ug/dL High 232-386 [facility] Comment on above: Performed By: #### I GIOVANNI, CBCDIF, FERR #### [facility] [address] [place] [id number] Transferrin Saturatn 7 % Low 15-57 [facility] Comment on above: Performed By: #### I GIOVANNI, CBCDIF, FERR #### [facility] [employer] [address] [place] [id number] CNPMarcie 06-12-2021 MADELYN Telephone (WINNIE) ANGELES LARIOS ([id number]) 1960 F Date Time Provider Department 06/12/21 HANK BROWN During your visit today, we recorded the following information about you: Tete Couch Sec 06/12/2021 12:40 PM Signed Ms. Larios needs to reschedule her 06/17/[address] Brown at least 10 days out. Catherine Couch Dry Lumber Grader Leonie Reagan [facility] 06/14/2021 10:39 AM Signed Angeles Larios [...] (HCC) [I74.3] 06/25/2017 Coronary artery disease involving [place] samano*06/27/2017 Essential hypertension [I10] 06/27/2017 Mixed hyperlipidemia [E78.2] 06/27/2017 Episode of recurrent major depressive disorder *05/10/2018 Acquired hypothyroidism [E03.9] 05/10/2018 GERD (gastroesophageal reflux disease) [K21.9] 05/10/2018 PVD (peripheral vascular disease) ([facility]) [I73.9] 05/10/2018 PATRICA (obstructive sleep apnea) [G47.33] [...] Status:Closed by TETE WASHINGTON on 06/12/21 Normal [facility] - Chemistry and C hemistry - challengeon 05-07-2021 Cobalamin (Vitamin B12) [Mass/Vol] 238 pg/mL 211-911 [facility] Work Phone: Serum or plasma folate measu rement (mass/volume)on 05-07-2021 Folate [Mass/Vol] 13.90 ng/mL 3.1-55.4 [facility] ANES POSTPROC EVALon 021 ANES POSTPROC EVAL HNO ID: [id number] Author: Eliu Bernal MD Service: ? Author Type: Physician Type: Anesthesia Postprocedure Evaluation Filed: 05/07/2021 1:41 PM Note Text: POST ANESTHESIA EVALUATION NOTE : 1960 Procedure Summary Date: 05/06/21 Room / Location: [facility] 23 / [facility] Anesthesia Start: 1626 Anesthesia Stop: 1700 [...] May 07, 2021 TIME: 1:40 PM CSN: [id number] Normal [facility] ANES PRE-OPon 05-06-2021 ANES PRE-OP HNO ID: [id number] Author: Eliu Bernal MD Service: ? Author [...] asymptomatic, bilateral (+) Coronary artery disease involving [place] coronary artery of [place] heart without angina pectoris (+) Embolism and [...] by mouth (more content not included)... Normal [facility] HISTORY PHYSICALon HISTORY PHYSICAL HNO ID: [id number] Author: Lisseth Uribe APRN.HOME HEALTH CLINICAL SUPERVISOR Service: Anesthesiology Author Type: Nurse Practitioner Type: HANDP Filed: 05/06/2021 3:32 PM Note Text: HISTORY AND PHYSICAL EXAMINATION SERVICE DATE: 05/06/2021 SERVICE TIME: 12:29 PM Angeles Larios [id number] PRIMARY CARE PHYSICIAN: Martin Gutierrez MD SURGEON: [...] GERD. She states she was hospitalized in [place] in 02/2021 for fatigue and lethargy. States [...] artery disease) - Coronary artery disease involving [place] coronary artery of [place] heart without angina pectoris 06/27/2017 ASA, plavix - CVA (cerebral vascular accident) ([facility]) 06/2012 - Embolus of femoral artery ([facility]) 06/25/2017 on right - Episode of recurrent major depressive disorder ([facility]) 05/10/2018 Duloxetine,wellbutrin , varenicline - Essential hypertension [...] apnea) 05/10/2018 - PVD (peripheral vascular disease) ([facility]) 05/10/2018 - Snoring PAST SURGICAL HISTORY Procedure Laterality Date - APPENDECTOMY 1998 - COLONOSCOP W/ OR W/O BRSH SPEC 03/10/2021 - EGD W/O OR W/BRUSH/WASH 03/10/2021 - INSERT CATH,ART,PERCUT,SHORT TERM 10/13/2012 RIGHT - PAST SURGICAL HISTORY OF 2008 cardiac stents x 3 placed - PAST SURGICAL HISTORY OF 06/25/2017 Rt RESEARCH SUPPORT SPECIALIST embolectomy - THROMBOENDARTECTMY NECK,NECK INCIS 10/13/2012 LEFT [...] unexpected verenice (more content not included)... Normal [facility] NURSING PROGon 05-06-2021 NURSING PROG HNO ID: [id number] Author: Elvira Rojo RN Service: Nursing Author [...] may call the [facility] at [phone]. After business hours, please contact: Dr. Urena. RETURN/REMOVAL OF EQUIPMENT: Return to the procedure area as directed by your nurse for equipment removal. Nursing Progress Note Patient Name: Angeles Larios [facility] Daily Note: This note was completed by: Elvira Ash [facility] NURSING PROG HNO ID: [id number] Author: Elvira Rojo RN Service: Nursing Author [...] SB Capsule Endoscope (Olympus/Given) without difficulty. Lot#: [id number] Date of expiration: 08/31/2022 POST-PROCEDURE Post-capsule instructions reviewed and written information was provided to patient. Patient will return equipment to [facility]. SIGNATURE: Elvira Rojo RN PATIENT NAME: Angeles Larios DATE: May 06, 2021 TIME: 6:08 PM CONTACT #: [phone] Nursing Progress Note Patient Name: Angeles Larios [facility] Daily Note: This note was completed by: Elvira Rojo [facility] OPERATIVE NOon 05-06-2021 OPERATIVE NO HNO ID: [id number] Author: Leonard Urena MD Service: Gastroenterology Author Type: Physician Type: Operative Report Filed: 05/06/2021 5:16 PM Note Text: OPERATIVE/PROCEDURE REPORT LOG ID: [id number] Surgery/Procedure Date: 05/06/2021 Incision/Procedure Start Time: 4:34 PM Incision Close/Procedure End Time: 4:54 PM Surgeon(s)/Procedural ist(s) and Pulp Mixer(s): Surgeon(s) and Role: * Leonard Urena MD [...] noted. She has had prior investigations at [facility]. The risks, benefits and alternatives of the [...] 06, 2021 TIME: 5:12 PM PAGER/CONTACT #: [phone] Normal [facility] SURGICAL PATHOLOGYon 021 CASE REPORT Normal [facility] Comment on above: Order Comment: Speci men Type: TISSUE SPECIMEN Result Comment: Surg ica Pathology Report Case: [id number] Authorizing Provider: Leonard Urena MD Collected: 05/06/2021 04:45 PM Ordering Location: [facility] Received: 05/07/2021 08:49 AM Pathologist: Stephen Masters MD Specimens: A) - GASTRIC BIOPSY B) - DUODENUM BIOPSY C) - COLON BIOPSY, random Performed By: #### S #### [facility] CLIA [id number] [address] [place] [address] CLINICAL HISTORY Iron deficiency anemia Normal [facility] Comment on above: Order Comment: Speci men Type: TISSUE SPECIMEN Performed By: #### S #### [facility] CLIA [id number] [address] DIAGNOSIS COMMENT Sections of the duodenum revealed benign duodenal mucosa with mildly increased acute and chronic inflammatory cells predominantly within the lamina propria. Histologic features to suggest celiac disease are not present. Normal [facility] Comment on above: Order Comment: Speci men Type: TISSUE SPECIMEN Performed By: #### S #### [facility] CLIA [id number] [address] [place] [address] FINAL DIAGNOSIS Normal [facility] Comment on above: Order Comment: Speci men Type: TISSUE SPECIMEN Result Comment: A. S tomach, biopsy No pathologic abnormalities. B. Duodenum, biopsy Mild active duodenitis. See comment. C. Colon, random biopsies No pathologic abnormalities. Performed By: #### S #### [facility] CLIA [id number] [address] [place] [facility]FORM[facility] Normal [facility] Comment on above: Order Comment: Speci men Type: TISSUE SPECIMEN Result Comment: Diag nostic interpretation performed at [facility], [address] [place] [address] CLIA# [id number] Electrical Appliance Servicer: Stephen Masters M.D. Performed By: #### S #### [facility] CLIA [id number] [address] GROSS DESCRIPTION Normal [facility] Comment on above: Order Comment: [...] in cassette C1. Gross examination performed at [facility], [address] [place] [address] OLS May 07, 2021 12:31 PM Performed By: #### S #### [facility] CLIA [id number] [address] CBC W Auto Differential pane l (Bld)on 04-16-2021 Basophils (Bld) [#/Vol] 0.07 10*3/uL Normal <0.11 [facility] Comment on above: Order Comment: Speci men Type: BLOOD SPECIMEN Performed By: #### 5 7021-8 ####[facility]IA [id number] [address] Basophils/100 WBC (Bld) 1.1 % Normal [facility] Comment on above: Order Comment: Speci men Type: BLOOD SPECIMEN Performed By: #### 5 7021-8 ####[facility] [id number] [address] Differential cell count method Nom (Bld) Auto Normal [facility] Comment on above: Order Comment: Speci men Type: BLOOD SPECIMEN Performed By: #### 5 7021-8 ####[facility] [id number] [address] Eosinophils (Bld) [#/Vol] 0.10 10*3/uL Normal <0.46 [facility] Comment on above: Order Comment: Speci men Type: BLOOD SPECIMEN Performed By: #### 5 7021-8 ####[facility] [id number] [address] Eosinophils/100 WBC (Bld) 1.6 % Normal [facility] Comment on above: Order Comment: Speci men Type: BLOOD SPECIMEN Performed By: #### 5 7021-8 ####[facility] [id number] [address] Erythrocyte distribution width (RBC) [Ratio] 13.9 % Normal 11.5-15.0 [facility] Comment on above: Order Comment: Speci men Type: BLOOD SPECIMEN Performed By: #### 5 7021-8 ####[facility] [id number] [address] [facility] Hematocrit (Bld) [Volume fraction] 33.6 % Low 36.0-46.0 [facility] Comment on above: Order Comment: Speci men Type: BLOOD SPECIMEN Performed By: #### 5 7021-8 ####[facility] [id number] [address] Hemoglobin (Bld) [Mass/Vol] 9.4 g/dL Low 11.5-15.5 [facility] Comment on above: Order Comment: Speci men Type: BLOOD SPECIMEN Performed By: #### 5 7021-8 ####[facility] [id number] [address] IMMATURE GRAN % 0.3 % Normal [facility] Comment on above: Order Comment: Speci men Type: BLOOD SPECIMEN Performed By: #### 5 7021-8 ####[facility]ORYCLIA [id number] [address] IMMATURE GRAN ABS <0.03 Normal <0.10 [facility] Comment on above: Order Comment: Speci men Type: BLOOD SPECIMEN Performed By: #### 5 7021-8 ####[facility]ORYCLIA [id number] [address] Lymphocytes (Bld) [#/Vol] 1.68 10*3/uL Normal 1.00-4.00 [facility] Comment on above: Order Comment: Speci men Type: BLOOD SPECIMEN Performed By: #### 5 7021-8 ####[facility]ORYCLIA [id number] [address] Lymphocytes/100 WBC (Bld) 27.6 % Normal [facility] Comment on above: Order Comment: Speci men Type: BLOOD SPECIMEN Performed By: #### 5 7021-8 ####[facility]ORYCLIA [id number] [address] MCH (RBC) [Entitic mass] 31.2 pg Normal 26.0-34.0 [facility] Comment on above: Order Comment: Speci men Type: BLOOD SPECIMEN Performed By: #### 5 7021-8 ####[facility]ORYCLIA [id number] [address] MCHC (RBC) [Mass/Vol] 28.0 g/dL Low 30.5-36.0 [facility] Comment on above: Order Comment: Speci men Type: BLOOD SPECIMEN Performed By: #### 5 7021-8 ####[facility]ORYCLIA [id number] [address] MCV (RBC) [Entitic vol] 111.6 fL High 80.0-100.0 [facility] Comment on above: Order Comment: Speci men Type: BLOOD SPECIMEN Performed By: #### 5 7021-8 ####[facility] [id number] [address] Monocytes (Bld) [#/Vol] 0.56 10*3/uL Normal <0.87 [facility] Comment on above: Order Comment: Speci men Type: BLOOD SPECIMEN Performed By: #### 5 7021-8 ####[facility]ORY[facility] [id number] [address] Monocytes/100 WBC (Bld) 9.2 % Normal [facility] Comment on above: Order Comment: Speci men Type: BLOOD SPECIMEN Performed By: #### 5 7021-8 ####[facility]ORY[facility]IA [id number] [address] Neutrophils (Bld) [#/Vol] 3.66 10*3/uL Normal 1.45-7.50 [facility] Comment on above: Order Comment: Speci men Type: BLOOD SPECIMEN Performed By: #### 5 7021-8 ####[facility]ORY[facility]IA [id number] [address] Neutrophils/100 WBC (Bld) 60.2 % Normal [facility] Comment on above: Order Comment: Speci men Type: BLOOD SPECIMEN Performed By: #### 5 7021-8 ####[facility]ORYCLIA [id number] [address] Nucleated RBC (Bld) [#/Vol] 10*3/uL Normal <0.01 [facility] Comment on above: Order Comment: Speci men Type: BLOOD SPECIMEN Performed By: #### 5 7021-8 ####[facility]ORYCLIA [id number] [address] [facility] Nucleated RBC/100 WBC (Bld) [Ratio] 0.0 /100 WBC Normal 0.0 [facility] Comment on above: Order Comment: Speci men Type: BLOOD SPECIMEN Performed By: #### 5 7021-8 ####[facility]ORYCLIA [id number] [address] Platelet mean volume (Bld) [Entitic vol] 10.3 fL Normal 9.0-12.7 [facility] Comment on above: Order Comment: Speci men Type: BLOOD SPECIMEN Performed By: #### 5 7021-8 ####[facility]ORYCLIA [id number] [address] Platelets (Bld) [#/Vol] 353 10*3/uL Normal 150-400 [facility] Comment on above: Order Comment: Speci men Type: BLOOD SPECIMEN Performed By: #### 5 7021-8 ####[facility]ORYCLIA [id number] [address] RBC (Bld) [#/Vol] 3.01 10*6/uL Low 3.90-5.20 [facility] Comment on above: Order Comment: Speci men Type: BLOOD SPECIMEN Performed By: #### 5 7021-8 ####[facility]ORYCLIA [id number] [address] WBC (Bld) [#/Vol] 6.09 10*3/uL Normal 3.70-11.00 [facility] Comment on above: Order Comment: Speci men Type: BLOOD SPECIMEN Performed By: #### 5 7021-8 ####[facility]ORYCLIA [id number] [address] CNOVon 04-16-2021 CNOV Office Visit (AGGASTACC) ANGELES LARIOS ([id number]) 1960 F Date Time Provider Department 04/16/21 [...] pale stool. 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 Gutierrez. She has a history of anemia and has been on iron supplementation. She has fatigue and intermittent nausea. EGD in 03/10/[address] Charley De La Fuente in [place]: Normal Biopsies were not done Colonoscopy 03/10/2021 [...] artery disease) - Coronary artery disease involving [place] coronary artery of [place] heart without angina pectoris 06/27/2017 ASA, plavix - CVA (cerebral vascular accident) (HCC) 06/2012 - Embolus of femoral artery ([facility]) 06/25/2017 - Episode of recurrent major depressive disorder ([facility]) 05/10/2018 Duloxetine,wellbutrin , varenicline - Essential hypertension [...] apnea) 05/10/2018 - PVD (peripheral vascular disease) ([facility]) 05/10/2018 - Snoring PAST SURGICAL HISTORY Procedure Laterality Date - APPENDECTOMY 1998 - COLONOSCOP W/ OR W/O BRSH SPEC 03/10/2021 - EGD W/O OR W/BRUSH/WASH 03/10/2021 - INSERT CATH,ART,PERCUT,SHORT TERM 10/13/2012 RIGHT - PAST SURGICAL HISTORY OF 2008 cardiac stents x 3 placed - PAST SURGICAL HISTORY OF 06/25/2017 Rt RESEARCH SUPPORT SPECIALIST embolectomy - THROMBOENDARTECTMY NECK,NECK INCIS 10/13/2012 LEFT [...] Alcohol use: (more content not included)... Normal [facility] CNOV Office Visit (AGGENS3) ANGELES LARIOS ([id number]) 1960 F Date Time Provider Department 04/16/21 [...] artery disease) - Coronary artery disease involving [place] coronary artery of [place] heart without angina pectoris 06/27/2017 ASA, plavix - CVA (cerebral vascular accident) ([facility]) 06/2012 - Embolus of femoral artery ([facility]) 06/25/2017 - Episode of recurrent major depressive disorder ([facility]) 05/10/2018 Duloxetine,wellbutrin , varenicline - Essential hypertension [...] apnea) 05/10/2018 - PVD (peripheral vascular disease) ([facility]) 05/10/2018 - Snoring PAST SURGICAL HISTORY Procedure Laterality Date - APPENDECTOMY 1998 - COLONOSCOP W/ OR W/O BRSH SPEC 03/10/2021 - EGD W/O OR W/BRUSH/WASH 03/10/2021 - INSERT CATH,ART,PERCUT,SHORT TERM 10/13/2012 RIGHT - PAST SURGICAL HISTORY OF 2008 cardiac stents x 3 placed - PAST SURGICAL HISTORY OF 06/25/2017 Rt RESEARCH SUPPORT SPECIALIST embolectomy - THROMBOENDARTECTMY NECK,NECK INCIS 10/13/2012 LEFT [...] incontinence M (more content not included)... Normal [facility] Cici 04-16-2021 [facility] Telephone (AGGASTACC ) AGNELES LARIOS ([id number]) 1960 F Date Time Provider Department 04/16/21 RAZLEONARD PHIPPS During your visit today, we recorded the following information about you: Debbie Vallecillo 04/16/2021 1:31 PM Signed Surgery Checklist Type: COLONOSCOPY/EGD/CAPSU LE ENDOSCOPY Admission Type: outpatient Anesthesia: MAC Date: 04/05/21 Arrival Time: 12:45 PM Surgery Time: 02:15 PM Location: [facility] CASE# [id number] Prep given at appointment. Debbie Vallecillo Allergies [...] (HCC) [I74.3] 06/25/2017 Coronary artery disease involving [place] samano*06/27/2017 Essential hypertension [I10] 06/27/2017 Mixed hyperlipidemia [E78.2] 06/27/2017 Episode of recurrent major depressive disorder *05/10/2018 Acquired hypothyroidism [E03.9] 05/10/2018 GERD (gastroesophageal reflux disease) [K21.9] 05/10/2018 PVD (peripheral vascular disease) ([facility]) [I73.9] 05/10/2018 PATRICA (obstructive sleep apnea) [G47.33] 05/10/2018 Fibromyalgia [M79.7] 05/10/2018 Irritable bowel syndrome with both constipation*05/10/20 18 Diabetes mellitus (HCC) [E11.9] 05/10/2018 Iron deficiency anemia [D50.9] 05/10/2018 HTN (hypertension) [I10] CVA (cerebral vascular accident) ([facility]) [I63.9] CAD (coronary artery disease) [I25.10] Obesity, Class III, BMI >= 40 [E66.01] 01/24/2019 Carotid stenosis [I65.29] 02/18/2019 Nicotine use disorder, F17.2 [F17.200] 02/20/2019 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 Encounter Status:Closed by DEBBIE VALLECILLO on 04/16/21 Normal [facility] CREATININE BLDon 04-16-2021 Creatinine [Mass/Vol] 0.77 mg/dL Normal 0.58-0.96 [facility] Comment on above: Order Comment: Speci men Type: BLOOD SPECIMEN Performed By: #### C RET1 #### [facility] CLIA [id number] [address] [place] [address] [place] GFR/1.73 sq M.predicted MDRD (S/P/Bld) [Vol rate/Area] mL/min/{1.73_m2} Normal [facility] Comment on above: Order Comment: Speci [...] GFR. Performed By: #### C RET1 #### [facility] CLIA [id number] [address] [place] GLIADIN (DEAMIDATED) AB, IGA on 04-16-2021 Gliadin peptide IgA Qn (S) 11 Units Normal <20 [facility] Comment on above: Order Comment: Speci [...] titer. Performed By: #### JERILYN BADILLO #### [facility] CLIA [id number] [address] [facility] [address] [place] OF [facility] GLIADIN (DEAMIDATED) AB, IGG on 04-16-2021 Gliadin peptide IgG Qn (S) 1 Units Normal <20 [facility] Comment on above: Order Comment: Speci [...] titer. Performed By: #### JERILYN BADILLO #### [facility] CLIA [id number] [address] [place] [id number] [place] IGA BLDon 04-16-2021 IgA [Mass/Vol] 99 mg/dL Normal 70-400 [facility] Comment on above: Order Comment: Speci men Type: BLOOD SPECIMEN Performed By: #### I GA TGLGMA ####[facility] LABCLIA [id number] [facility] [address] [place] TRANSGLUTAMINASE ABSon 04-16 tTG IgA Qn (S) 5 Units Normal <20 [facility] Comment on above: Order Comment: Speci [...] titer. Performed By: #### I LEA BALL ####[facility] LABCLIA [id number] [place] [employer]K [address] tTG IgG Qn (S) 3 Units Normal <20 [facility] Comment on above: Order Comment: Speci [...] titer. Performed By: #### I LEA BALL ####[facility] LABCLIA [id number] [facility] [address] [place] TSH SerPl-aCncon 04-16-2021 TSH Qn 1.480 m[IU]/L Normal 0.270-4.200 [facility] Comment on above: Order Comment: Speci men Type: BLOOD SPECIMEN Performed By: #### 3 016-3 ####[facility]ORY[facility]IA [id number] [address] [place] CNPNon 01-07-2021 CNPN Telephone ([facility]) ANGELES LARIOS ([id number]) 1960 F Date Time Provider Department 01/07/21 JENNIFER CLEMONS During your visit today, we recorded the following information about you: Jennifer Clemons RN 01/07/2021 10:53 AM Signed Reason for call: Mr Larios called and she would like to schedule a follow up appointment with DR Brown Last seen 05/28/2020 looking for a mid morning appointment. Home and cell number [phone] Diagnosis Bobby carotid stenosis Kind Regards Jennifer [...] (HCC) [I74.3] 06/25/2017 Coronary artery disease involving [place] samano*06/27/2017 Essential hypertension [I10] 06/27/2017 Mixed hyperlipidemia [E78.2] 06/27/2017 Episode of recurrent major depressive disorder *05/10/2018 Acquired hypothyroidism [E03.9] 05/10/2018 GERD (gastroesophageal reflux disease) [K21.9] 05/10/2018 PVD (peripheral vascular disease) ([facility]) [I73.9] 05/10/2018 PATRICA (obstructive sleep apnea) [G47.33] 05/10/2018 Fibromyalgia [M79.7] 05/10/2018 Irritable bowel syndrome with both constipation*05/10/20 18 Diabetes mellitus ([facility]) [E11.9] 05/10/2018 Iron deficiency anemia [D50.9] 05/10/2018 HTN (hypertension) [I10] CVA (cerebral vascular accident) ([facility]) [I63.9] CAD (coronary artery disease) [I25.10] Obesity, Class III, BMI >= 40 [E66.01] 01/24/2019 Carotid stenosis [I65.29] 02/18/2019 Nicotine use disorder, F17.2 [F17.200] 02/20/2019 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 Encounter Status:Closed by JENNIFER CLEMONS on 01/07/21 Normal [facility] Culture, urineon 05-27-2019 Bacteria identified Cx Nom (U) Escherichia coli [facility] Culture, urineon 05-24-2019 Bacteria identified Cx Nom (U) Escherichia coli Abnormal [facility] Erythrocyte distribution wid th standard deviationon 02-08-2019 Erythrocyte distribution width (RBC) [Entitic vol] 48.6 fL High 35.1-43.9 [facility] Laboratory - Hematology and Cell countson 02-08-2019 Erythrocyte distribution width (RBC) [Ratio] 13.3 % 11.6-14.6 [facility] Total cell counton 9 Cells counted Molgen (Bld/Tiss) [#] Not Reportable [facility] Hemoglobin in reticulocytes (mass per reticulocyte)on 03-25-2018 Hemoglobin (Reticulocytes) [Entitic mass] 34.8 pg 30-35 [facility] Work Phone: No Panel Informationon 03-25 Immature Platelet Fraction 3.3 % 1.0-7.9 [facility] Comment on above: Low PLT + Low IPF flores ggest a bone marrow production disorderLow PLT + high IPF suggests peripheral destruction(e.g.ITP, TTP, HIT, DIC, autoimmune) or bone marrow recoveryTrending of serial IPF measurements is recommended when evaluating for bone marrow responesValue above normal range indicates an increase in RBC cellular response from bone marrow. Immature Reticulocyte Fraction 11.40 % 3.00-15.90 [facility] Work Phone: Reticulocyte Count 1.86 % 0.5-1.5 [facility] Work Phone: Lab Report: BNP,B-Type NATRI URETIC PEPTIDEon 10-13-2017 Natriuretic peptide B (Bld) [Mass/Vol] 30.4 pg/mL Invalid Interpretation Code 0-100 [facility] Work Phone: Lab Report: Basic Metabolic Profile (BMP)on 10-13-2017 Anion gap [Moles/Vol] 6 mmol/L Invalid Interpretation Code 5-15 [facility] Work Phone: Calcium [Mass/Vol] 8.2 mg/dL Low 8.5-10.1 [facility] Work Phone: Chloride [Moles/Vol] 106 mmol/L Invalid Interpretation Code 98-107 [facility] Work Phone: CO2 (BldV) [Partial pressure] 27.0 mmol/L Invalid Interpretation Code 21.0-32.0 [facility] Work Phone: Creatinine [Mass/Vol] 0.72 mg/dL Invalid Interpretation Code 0.55-1.02 [facility] Work Phone: GFR/1.73 sq M.predicted among non-blacks MDRD (S/P/Bld) [Vol rate/Area] 88 mL/min/{1.73_m2} Invalid Interpretation Code >60 [facility] Work Phone: Glomerular Filtration rate 107 mL/min Invalid Interpretation Code >60 [facility] Work Phone: Glucose [Mass/Vol] 127 mg/dL High 74-106 [facility] Work Phone: Potassium [Moles/Vol] 3.9 mmol/L Invalid Interpretation Code 3.5-5.1 [facility] Work Phone: Sodium [Moles/Vol] 139 mmol/L Invalid Interpretation Code 136-145 [facility] Work Phone: Urea nitrogen [Mass/Vol] 13 mg/dL Invalid Interpretation Code 7-18 [facility] Work Phone: Urea nitrogen/Creatinine [Mass ratio] 18.3797824 mg/mg Invalid Interpretation Code 10-20 [facility] Work Phone: Clinical Lists 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 Comment on above: Performed By: #### P T ####[place] [address] Activated PTTon 06-28-2017 aPTT 27.7 s Normal 22.0-34.0 [facility] Comment on above: Performed By: #### P T ####[place] [address] Protimeon 06-28-2017 INR Coag RelTime (PPP) 1.07 {INR} Normal [facility] Comment on above: Result Comment: Yannick dard Therapy 2.0-3.0High Dose 2.5-3.5 Performed By: #### P T ####[place] [address] Prothrombin time (PT) Coag time (PPP) 11.4 s Normal 9.3-11.9 [facility] Comment on above: Performed By: #### P T ####[address] [place], [place] [address] Activated PTTon 06-27-2017 aPTT 75.2 s High 22.0-34.0 [facility] Comment on above: Performed By: #### P T ####[place] [address] aPTT 51.8 s High 22.0-34.0 [facility] Comment on above: Performed By: #### G FR ####[place] [address] Hemogramon 06-27-2017 Erythrocyte distribution width Auto Ratio (RBC) 16.1 % High 11.7-14.4 [facility] Comment on above: Performed By: #### G FR ####[place] [address] Erythrocytes (RBC) 3.43 mil/cmm Low 3.93-5.22 [facility] Comment on above: Performed By: #### G FR ####[place] [address] Hematocrit (HCT) 29.4 % Low 34.1-44.9 [facility] Comment on above: Performed By: #### G FR ####[place] [address] Hemoglobin mass conc (Bld) 8.8 g/dL Low 11.2-15.7 [facility] Comment on above: Performed By: #### G FR ####[place] [address] MCH 25.7 pg Normal 25.6-32.2 [facility] Comment on above: Performed By: #### G FR ####[place] [address] MCHC mass conc (RBC) 29.9 % Low 31.6-34.8 [facility] Comment on above: Performed By: #### G FR ####[place] [address] MCV 85.7 fL Normal 79.4-94.8 [facility] Comment on above: Performed By: #### G FR ####[facility]1 [place], [place] [address] Platelet mean volume (PMV) 10.3 fL Normal 9.4-12.3 [facility] Comment on above: Performed By: #### G FR ####[facility]1 [place] [address] Platelets 258 thou/cmm Normal 182-369 [facility] Comment on above: Performed By: #### G FR ####[place] [address] RDW SD 50.2 fl High 36.4-46.3 [facility] Comment on above: Performed By: #### G FR ####[place] [address] WBC (Leukocytes) 10.88 thou/cmm High 3.98-10.04 [facility] Comment on above: Performed By: #### G FR ####[place] [address] Lipid Profileon 06-27-2017 Cholesterol to HDL Ratio 4.1 {ratio} Normal 1.8-5.3 [facility] Comment on above: Performed By: #### P T ####[place] [address] HDL Cholesterol 41 mg/dL Normal >40 [facility] Comment on above: Performed By: #### P T ####[place] [address] LDL Cholesterol 95 mg/dL Normal [facility] Comment on above: Result Comment: No C AD and with fewer than 2 CAD risk factors <160 mg/dlNo CAD but with 2 or more CAD risk factors <130 mg/dlDefinite CAD or other atherosclerotic disease <100 mg/dl Performed By: #### P T ####[place] [address] LDL to HDL Ratio 2.3 Normal 0.6-3.6 [facility] Comment on above: Result Comment: LDL, VLDL,LDL/HDL, Invalid if Triglyceride >400 Performed By: #### P T ####[place] [address] Cholesterol in VLDL mass conc 33 mg/dL Normal <[address] [facility] Comment on above: Performed By: #### P T ####[place] [id number] Triglyceride 166 mg/dL High 0-149 [facility] Comment on above: Result Comment: < 20 0 DesirableResult invalid if not a fasting specimen. Performed By: #### P T ####[place] [address] Cholesterol 169 mg/dL Normal 0-199 [facility] Comment on above: Result Comment: <200 [id number] Borderline>240 High Performed By: #### P T ####[place] [address] Protimeon 06-27-2017 INR Coag RelTime (PPP) 0.99 {INR} Normal [facility] Comment on above: Result Comment: Yannick dard Therapy 2.0-3.0High Dose 2.5-3.5 Performed By: #### G FR ####[place] [address] Prothrombin time (PT) Coag time (PPP) 10.7 s Normal 9.3-11.9 [facility] Comment on above: Performed By: #### G FR ####[place] [address] ARTERIAL UP/LOW/REST/MANUEVE Giovanni 06-26-2017 ARTERIAL UP/LOW/REST/MANUEVER Performed at [facility] APPROVED BY: STEPHANIE JOHN MD EXAM TITLE: [...] suggestive of possible proximal aortoiliac disease. Normal [facility] Activated PTTon 06-26-2017 aPTT 62.4 s High 22.0-34.0 [facility] Comment on above: Performed By: #### G FR ####[facility] [place] [address] aPTT 69.5 s High 22.0-34.0 [facility] Comment on above: Performed By: #### G FR ####[facility] [place] [address] Basic Panelon 06-26-2017 Creatinine 0.63 mg/dL Normal 0.51-0.95 [facility] Comment on above: Performed By: #### G FR ####[facility] [place] [address] Anion gap 11 mmol/L Normal 8-16 [facility] Comment on above: Performed By: #### G FR ####[facility] [place] [address] CO2 26 mmol/L Normal 21-32 [facility] Comment on above: Performed By: #### G FR ####[facility] [place] [address] Urea nitrogen 14 mg/dL Normal 7-18 [facility] Comment on above: Performed By: #### G FR ####[facility] [place] [address] Calcium 8.1 mg/dL Low 8.5-10.1 [facility] Comment on above: Performed By: #### G FR ####[facility] [place] [address] Glucose mass conc 130 mg/dL High 70-99 [facility] Comment on above: Performed By: #### G FR ####[facility] [place] [address] Chloride 105 mmol/L Normal 98-107 [facility] Comment on above: Performed By: #### G FR ####[address] [address] Potassium molar conc 3.8 mmol/L Normal 3.5-5.1 [facility] Comment on above: Performed By: #### G FR ####[place] [address] Sodium 138 mmol/L Normal 136-145 [facility] Comment on above: Performed By: #### G FR ####[address] [address] Hemogram/Diffon 06-26-2017 Basophils Auto #/vol (Bld) 0.04 thou/cmm Normal 0.01-0.08 [facility] Comment on above: Result Comment: Smea r scanned; tech agrees with automated differential Performed By: #### G FR ####[address] [address] Basophils/100 WBC Auto (Bld) 0.3 % Normal [facility] Comment on above: Performed By: #### G FR ####[address] [address] Eosinophils 0.01 thou/cmm Normal 0.00-0.31 [facility] Comment on above: Performed By: #### G FR ####[address] [address] Eosinophils/100 leukocytes 0.1 % Normal [facility] Comment on above: Performed By: #### G FR ####[address] [address] Immature Grans 0.50 % Normal [facility] Comment on above: Performed By: #### G FR ####[address] [address] Immature Grans # 0.07 thou/cmm High 0.00-0.05 [facility] Comment on above: Performed By: #### G FR ####[facility] [place], [place] [address] Lymphocytes 2.34 thou/cmm Normal 1.18-3.74 [facility] Comment on above: Performed By: #### G FR ####[facility] [place], [place] [address] Lymphocytes/100 leukocytes 15.8 % Normal [facility] Comment on above: Performed By: #### G FR ####[facility] [place], [place] [address] Monocytes 1.29 thou/cmm High 0.27-0.70 [facility] Comment on above: Performed By: #### G FR ####[facility] [place] [address] Monocytes/100 leukocytes 8.7 % Normal [facility] Comment on above: Performed By: #### G FR ####[address] [address] Seg Neutrophil 74.6 % Normal [facility] Comment on above: Performed By: #### G FR ####[place] [address] Seg. Neut.# 11.07 thou/cmm High 1.56-6.13 [facility] Comment on above: Performed By: #### G FR ####[place] [address] Erythrocyte distribution width Auto Ratio (RBC) 16.0 % High 11.7-14.4 [facility] Comment on above: Performed By: #### G FR ####[place] [address] Erythrocytes (RBC) 3.60 mil/cmm Low 3.93-5.22 [facility] Comment on above: Performed By: #### G FR ####[place] [address] Hematocrit (HCT) 30.8 % Low 34.1-44.9 [facility] Comment on above: Performed By: #### G FR ####[place] [address] Hemoglobin mass conc (Bld) 9.5 g/dL Low 11.2-15.7 [facility] Comment on above: Performed By: #### G FR ####[facility] [place] [address] MCH 26.4 pg Normal 25.6-32.2 [facility] Comment on above: Performed By: #### G FR ####[facility] [place] [address] MCHC mass conc (RBC) 30.8 % Low 31.6-34.8 [facility] Comment on above: Performed By: #### G FR ####[facility] [place] [address] MCV 85.6 fL Normal 79.4-94.8 [facility] Comment on above: Performed By: #### G FR ####[place] [address] Platelet mean volume (PMV) 10.5 fL Normal 9.4-12.3 [facility] Comment on above: Performed By: #### G FR ####[facility] [place] [address] Platelets 308 thou/cmm Normal 182-369 [facility] Comment on above: Performed By: #### G FR ####[place] [address] RDW SD 50.2 fl High 36.4-46.3 [facility] Comment on above: Performed By: #### G FR ####[place] [address] WBC (Leukocytes) 14.84 thou/cmm High 3.98-10.04 [facility] Comment on above: Performed By: #### G FR ####[place] [id number] MDRD GFRon 06-26-2017 eGFR (non-black) mL/min/{1.73_m2} Normal >60mL/m in/[address] [facility] Comment on above: Result Comment: If t he patient is , multiply the result by 1.210. Performed By: #### G FR ####[facility] [place], [place] [address] Bear 06-25-2017 ACT 258 sec High 89-169 [facility] Comment on above: Performed By: #### A CT ####[facility] [place], [place] [address] Activated PTTon 06-25-2017 aPTT 117.9 s Critically high 22.0-34.0 [facility] Comment on above: Result Comment: RESU LT RECHECKED Performed By: #### G FR ####[place] [address] Basic Panelon 06-25-2017 Creatinine 0.59 mg/dL Normal 0.51-0.95 [facility] Comment on above: Performed By: #### P 8 ####[place] [address] Anion gap 9 mmol/L Normal 8-16 [facility] Comment on above: Performed By: #### P 8 ####[place] [address] CO2 24 mmol/L Normal 21-32 [facility] Comment on above: Performed By: #### P 8 ####[place] [address] Glucose mass conc 162 mg/dL High 70-99 [facility] Comment on above: Performed By: #### P 8 ####[place] [address] Urea nitrogen 12 mg/dL Normal 7-18 [facility] Comment on above: Performed By: #### P 8 ####[address] [address] Calcium 7.8 mg/dL Low 8.5-10.1 [facility] Comment on above: Performed By: #### P 8 ####[place] [address] Chloride 107 mmol/L Normal 98-107 [facility] Comment on above: Performed By: #### P 8 ####[address], [place] [address] Potassium molar conc 3.7 mmol/L Normal 3.5-5.1 [facility] Comment on above: Performed By: #### P 8 ####[facility] [place], [place] [address] Sodium 136 mmol/L Normal 136-145 [facility] Comment on above: Performed By: #### P 8 ####[facility] [place], [place] [address] Creatinine 0.65 mg/dL Normal 0.51-0.95 [facility] Comment on above: Performed By: #### P 8 ####[facility] [place], [place] [address] Anion gap 11 mmol/L Normal 8-16 [facility] Comment on above: Performed By: #### P 8 ####[address] [address] CO2 23 mmol/L Normal 21-32 [facility] Comment on above: Performed By: #### P 8 ####[address] [address] Glucose mass conc 165 mg/dL High 70-99 [facility] Comment on above: Performed By: #### P 8 ####[address] [address] Urea nitrogen 14 mg/dL Normal 7-18 [facility] Comment on above: Performed By: #### P 8 ####[facility] [place], [place] [address] Calcium 8.4 mg/dL Low 8.5-10.1 [facility] Comment on above: Performed By: #### P 8 ####[facility] [place], [place] [address] Chloride 108 mmol/L High 98-107 [facility] Comment on above: Performed By: #### P 8 ####[facility] [place], [place] [address] Potassium molar conc 3.7 mmol/L Normal 3.5-5.1 [facility] Comment on above: Performed By: #### P 8 ####[facility] [place] [address] Sodium 138 mmol/L Normal 136-145 [facility] Comment on above: Performed By: #### P 8 ####[place] [address] Hemogramon 06-25-2017 Erythrocyte distribution width Auto Ratio (RBC) 16.0 % High 11.7-14.4 [facility] [facility] Comment on above: Performed By: #### C BC1 ####[place] [address] Erythrocytes (RBC) 4.01 mil/cmm Normal 3.93-5.22 [facility] Comment on above: Performed By: #### C BC1 ####[place] [address] Hematocrit (HCT) 34.3 % Normal 34.1-44.9 [facility] Comment on above: Performed By: #### C BC1 ####[place] [address] Hemoglobin mass conc (Bld) 10.5 g/dL Low 11.2-15.7 [facility] Comment on above: Performed By: #### C BC1 ####[place] [address] MCH 26.2 pg Normal 25.6-32.2 [facility] Comment on above: Performed By: #### C BC1 ####[place] [address] MCHC mass conc (RBC) 30.6 % Low 31.6-34.8 [facility] Comment on above: Performed By: #### C BC1 ####[place] [address] MCV 85.5 fL Normal 79.4-94.8 [facility] Comment on above: Performed By: #### C BC1 ####[place] [address] Platelet mean volume (PMV) 10.2 fL Normal 9.4-12.3 [facility] Comment on above: Performed By: #### C BC1 ####[facility] [place], [place] [address] Platelets 277 thou/cmm Normal 182-369 [facility] Comment on above: Performed By: #### C BC1 ####[facility] [place], [place] [address] RDW SD 50.1 fl High 36.4-46.3 [facility] Comment on above: Performed By: #### C BC1 ####[place] [address] WBC (Leukocytes) 12.16 thou/cmm High 3.98-10.04 [facility] Comment on above: Performed By: #### C BC1 ####[place] [address] Erythrocyte distribution width Auto Ratio (RBC) 16.1 % High 11.7-14.4 [facility] Comment on above: Performed By: #### C BC1 ####[place] [address] Erythrocytes (RBC) 3.92 mil/cmm Low 3.93-5.22 [facility] Comment on above: Performed By: #### C BC1 ####[place] [address] Hematocrit (HCT) 33.5 % Low 34.1-44.9 [facility] Comment on above: Performed By: #### C BC1 ####[place] [address] Hemoglobin mass conc (Bld) 10.2 g/dL Low 11.2-15.7 [facility] Comment on above: Performed By: #### C BC1 ####[place] [address] MCH 26.0 pg Normal 25.6-32.2 [facility] Comment on above: Performed By: #### C BC1 ####[place] [address] MCHC mass conc (RBC) 30.4 % Low 31.6-34.8 [facility] Comment on above: Performed By: #### C BC1 ####[facility] [place], [place] [address] MCV 85.5 fL Normal 79.4-94.8 [facility] Comment on above: Performed By: #### C BC1 ####[address] [address] Platelet mean volume (PMV) 10.0 fL Normal 9.4-12.3 [facility] Comment on above: Performed By: #### C BC1 ####[address] [address] Platelets 246 thou/cmm Normal 182-369 [facility] Comment on above: Performed By: #### C BC1 ####[address] [address] RDW SD 50.2 fl High 36.4-46.3 [facility] Comment on above: Performed By: #### C BC1 ####[place] [id number] WBC (Leukocytes) 9.67 thou/cmm Normal 3.98-10.04 [facility] Comment on above: Performed By: #### C BC1 ####[place] [id number] Lactic Acidon 06-25-2017 Lactate 1.8 mmol/L Normal 0.4-2.0 [facility] Comment on above: Performed By: #### L AC ####[place] [id number] MDRD GFRon 06-25-2017 eGFR (non-black) mL/min/{1.73_m2} Normal >60mL/m in/[address] [facility] Comment on above: Result Comment: If t he patient is , multiply the result by 1.210. Performed By: #### G FR ####[address] [address] eGFR (non-black) mL/min/{1.73_m2} Normal >60mL/m in/[address] [facility] Comment on above: Result Comment: If t he patient is , multiply the result by 1.210. Performed By: #### G FR ####[place] [address] Protimeon 06-25-2017 INR Coag RelTime (PPP) 0.99 {INR} Normal [facility] Comment on above: Result Comment: Yannick dard Therapy 2.0-3.0High Dose 2.5-3.5 Performed By: #### G FR ####[place] [address] Prothrombin time (PT) Coag time (PPP) 10.7 s Normal 9.3-11.9 [facility] Comment on above: Performed By: #### G FR ####[place] [address] INR Coag RelTime (PPP) 0.98 {INR} Normal [facility] Comment on above: Result Comment: Yannick dard Therapy 2.0-3.0High Dose 2.5-3.5 Performed By: #### P T ####[place] [address] Prothrombin time (PT) Coag time (PPP) 10.6 s Normal 9.3-11.9 [facility] Comment on above: Performed By: #### P T ####[place] [address] Surgical Tissue Examon 06-25 Surgical Tissue Exam Test performed at [place] [address]NAME: ANGELES LARIOS [id number] REQUESTING: CELINE CORREA M.D.FINAL DIAGNOSIS:RIGHT FEMORAL EMBOLECTOMY [...] 16:29PRINTED: 06/29/2017 [address] [facility] Comment on above: Performed By: #### P T ####[facility] [place] [address] Type and Screenon 06-25-2017 ABO group O Normal [facility] Comment on above: Performed By: #### T &S ####[facility] [place] [address] Antibody Screen Negative Normal [facility] Comment on above: Performed By: #### T &S ####[facility] [place] [address] Comment Emergency Room Normal [facility] Comment on above: Performed By: #### T &S ####[facility] [place] [address] RH Type Positive Normal 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 Albumin [Mass/Vol] 3.6 g/dL Invalid Interpretation Code [facility] Work Phone: Albumin/Globulin [Mass ratio] 1.1 {ratio} Invalid Interpretation Code [facility] Work Phone: Anion gap 7 mmol/L Invalid Interpretation Code [facility] Work Phone: Anion gap [Moles/Vol] 7 mmol/L Invalid Interpretation Code [facility] Work Phone: AST [Catalytic activity/Vol] 13 U/L Low [employer] Work Phone: Bilirubin [Mass/Vol] 0.20 mg/dL Invalid Interpretation Code [employer] Work Phone: Calcium [Mass/Vol] 8.6 mg/dL Invalid Interpretation Code [employer] Work Phone: Chloride [Moles/Vol] 106 mmol/L Invalid Interpretation Code [facility] Work Phone: CO2 27.0 mmol/L Invalid Interpretation Code [facility] Work Phone: CO2 (BldV) [Partial pressure] 27.0 mmol/L Invalid Interpretation Code [employer] Work Phone: Creatinine [Mass/Vol] 0.86 mg/dL Invalid Interpretation Code [employer] Work Phone: Erythrocyte distribution width (RBC) [Ratio] 12.9 % Invalid Interpretation Code [employer] Work Phone: Erythrocyte distribution width Auto Ratio (RBC) 12.9 % Invalid Interpretation Code [facility] Work Phone: Erythrocytes (RBC) 4.52 10*6/uL Invalid Interpretation Code [employer] Work Phone: Globulin 3.4 g/dL Invalid Interpretation Code [employer] Work Phone: globulin, serum 3.4 Invalid Interpretation Code [facility] Work Phone: Glucose [Mass/Vol] 109 mg/dL Invalid Interpretation Code [facility] Work Phone: Hematocrit (Bld) [Volume fraction] 44.7 % Invalid Interpretation Code [employer] Work Phone: Hematocrit (HCT) 44.7 % Invalid Interpretation Code [employer] Work Phone: Hemoglobin (Bld) [Mass/Vol] 14.3 g/dL Invalid Interpretation Code [employer] Work Phone: MCH 31.6 pg Invalid Interpretation Code [facility] Work Phone: MCH (RBC) [Entitic mass] 31.6 pg Invalid Interpretation Code [employer] Work Phone: MCHC (RBC) [Mass/Vol] 32.0 g/dL Invalid Interpretation Code [employer] Work Phone: MCHC mass conc (RBC) 32.0 g/dL Invalid Interpretation Code [employer] Work Phone: MCV 98.9 fL Invalid Interpretation Code [employer] Work Phone: MCV (RBC) [Entitic vol] 98.9 fL Invalid Interpretation Code [employer] Work Phone: Platelet mean volume (Bld) [Entitic vol] 10.4 fL Invalid Interpretation Code [employer] Work Phone: Platelets 267 10*3/mm3 Invalid Interpretation Code [employer] Work Phone: Platelets (Bld) [#/Vol] 267 10*3/uL Invalid Interpretation Code [employer] Work Phone: PMV by Roxane 10.4 fL Invalid Interpretation Code [employer] Work Phone: Potassium [Moles/Vol] 4.3 mmol/L Invalid Interpretation Code [employer] Work Phone: Protein [Mass/Vol] 7.0 g/dL Invalid Interpretation Code [facility] Work Phone: RBC (Bld) [#/Vol] 4.52 10*6/uL Invalid Interpretation Code [employer] Work Phone: Sodium [Moles/Vol] 140 mmol/L Invalid Interpretation Code [employer] Work Phone: Thyroid stimulating hormone (TSH) 1.81 u[iU]/mL Invalid Interpretation Code [facility] Work Phone: TSH Qn 1.81 m[IU]/L Invalid Interpretation Code [facility] Work Phone: Urea nitrogen [Mass/Vol] 15 mg/dL Invalid Interpretation Code [facility] Work Phone: Urea nitrogen/Creatinine [Mass ratio] 17.4 mg/mg Invalid Interpretation Code [facility] Work Phone: WBC (Bld) [#/Vol] 6.4 10*3/uL Invalid Interpretation Code [facility] Work Phone: WBC (Leukocytes) 6.4 10*3/uL Invalid Interpretation Code [facility] Work Phone: Office Visiton 12-30-2016 Dietary management education, guidance, and counseling (procedure) yes Invalid Interpretation Code [facility] Work Phone: Smoking cessation education (procedure) yes Invalid Interpretation Code [facility] Work Phone: Tobacco smoking status Tobacco smoking status NHIS Invalid Interpretation Code [facility] Work Phone: Tobacco use status [facility] Current every da y smoker Invalid Interpretation Code [facility] Work Phone: Lab Report: Vitamin D 1,25-D ihydroxyon 09-03-2016 vitamin D 1,25-dihydroxy, serum 39.3 Invalid Interpretation Code 19.9-79.3 [facility] Work Phone: VITD 1,25 [id number] 39.3 Invalid Interpretation Code 19.9-79.3 [facility] Work Phone: Lab Report: PTH,INTACTon Parathyrin.intact [Mass/Vol] 65 pg/mL Invalid Interpretation Code 14-72 [facility] Work Phone: Lab Report: Alkaline Phospha taseon 08-30-2016 Alkaline phosphatase (ALP) 105 U/L Invalid Interpretation Code 45-117 [facility] Work Phone: ALP (Bld) [Catalytic activity/Vol] 105 U/L Invalid Interpretation Code 45-117 [facility] Work Phone: Lab Report: Calcium,Totalon 08-30-2016 Calcium [Mass/Vol] 9.0 mg/dL Invalid Interpretation Code 8.5-10.1 [facility] Work Phone: Replaced Document: Bonifacio DAWN Observationson 07-15-2016 EKG QRS axis 27 deg Invalid Interpretation Code [facility] Work Phone: electrocardiogram interpretation Marked sinus Bradycardia BORDERLINE RHYTHM Invalid Interpretation Code [facility] Work Phone: GE use only - for LinkLogic import when terms are not otherwise specified 401 ms Invalid Interpretation Code [facility] Work Phone: Heart rate 48 /min Invalid Interpretation Code [facility] Work Phone: Interpretation Marked sinus Bradycardia BORDERLINE RHYTHM Invalid Interpretation Code [facility] Work Phone: P [place] 51 deg Invalid Interpretation Code [facility] Work Phone: P wave axis, electrocardiogram 51 deg Invalid Interpretation Code [facility] Work Phone: DC Interval 170 ms Invalid Interpretation Code [facility] Work Phone: DC interval, electrocardiogram 170 ms Invalid Interpretation Code [facility] Work Phone: QRS axis, electrocardiogram 27 deg Invalid Interpretation Code [facility] Work Phone: QRS Duration 106 ms Invalid Interpretation Code [facility] Work Phone: QRS duration, electrocardiogram 106 ms Invalid Interpretation Code [facility] Work Phone: QT Interval new path ms Invalid Interpretation Code [facility] Work Phone: QT interval, electrocardiogram new path ms Invalid Interpretation Code [facility] Work Phone: QTc Singh 401 ms Invalid Interpretation Code [facility] Work Phone: T [place] 43 deg Invalid Interpretation Code [facility] Work Phone: T wave axis, electrocardiogram 43 deg Invalid Interpretation Code [facility] Work Phone: Chart Maintenanceon 11-29-19 16 Left ventricular Ejection fraction 70 % Invalid Interpretation Code [facility] Work Phone: Hemoglobin Glyclated (HGB A1 C) (33412)Ordered By: Sack Sorter on 08-30-2015 HbA1c (Bld) [Mass fraction] 5.6 % Normal 4.8-5.6 [facility] Work Phone: Comment on above: . Pre-diabetes: 5.7 - 6.4 Diabetes: >6.4 Glycemic control for adults with diabetes: <7.0 PATIENT NOT FASTINGP ERFORMED BY: [facility] [id number] [facility] [id number] Information: [id number] HPV automatic ([id number])Ordered By: Sack Sorter on 07-26-2015 HPV 16+18+31+33+35+39+45+51 +52+56+58+59+68 DNA Probe+sig amp Ql (Cvx) Negative Normal Com[facility]hen [facility]; [facility] Work Phone: Comment on above: This high-risk HPV t est detects thirteen high-risk types(16/18/31/33/35/39/45/51/52/56/58/59/68) without differentiation. . Source.............C ervical;EndocervicalNo. of containers..01 CYTYC Thin Prep VialPATIENT NOT FASTINGPERFORMED BY: [facility].rrocket staffOrem Community Hospital [id number] BY: =G LabFirmafon [facility] HospitalPinkdingoOrem Community Hospital [id number] Information: [id number] Microscopic observation Other stain Nom (Unsp spec) . Normal [facility]; [facility] Work Phone: Comment on above: Source.............C ervical;EndocervicalNo. of containers..01 CYTYC Thin Prep VialPATIENT NOT FASTINGPERFORMED BY: zhiworrocket staffOrem Community Hospital [id number] BY: =G [facility].rrocket staffOrem Community Hospital [id number] Information: [id number] Pathology report final diagnosis Narrative [facility] Normal Comprehensiv e Internal Medicine; [facility] Work Phone: Comment on above: NEGATIVE FOR INTRAEP ITHELIAL LESION AND MALIGNANCY.Satisfactory for evaluation. Endocervical and/or squamous metaplasticcells (endocervical component) are present.Jennifer Middleton, Ointment Mill Tender ([facility]) Source.............C ervical;EndocervicalNo. of containers..01 CYTYC Thin Prep VialPATIENT NOT FASTINGPERFORMED BY: WB LabCloudy.fr[address] [place] [id number] BY: =G LabCoThe Cloakroom[address] PlazaRaveMobileSafety.comrleston [place] [id number] Information: [id number] HPV automatic (14834) PAPSMR Normal Com prehensive Internal Medicine; Comprehensive [...] Prep VialPATIENT NOT FASTINGPERFORMED BY: WB [facility] Qcmwaqnexe[address] PlazaRaveMobileSafety.[place]rleston [place] [id number] BY: =G [facility] Shhwzytdax[address] PlazaCharleston [place] [id number] Information: [id number] Lab Report: AFP, Tumor Malika smith 07-05-2015 AFP TUMOR 2253 3.3 ng/mL Invalid Interpretation Code 0.0-8.3 [facility] Work Phone: alpha-1 fetoprotein tumor marker, serum/plasma 3.3 ng/mL Invalid Interpretation Code 0.0-8.3 [facility] Work Phone: Lab Report: Bilirubin, Direc ton 07-04-2015 Bilirubin.direct [Mass/Vol] 0.06 mg/dL Invalid Interpretation Code 0.00-0.30 [facility] Work Phone: Lab Report: CBC W/Diff, Auto matedon 07-04-2015 Absolute Neut 3.8 X10 3/UL Invalid Interpretation Code 2.0-7.7 [facility] Work Phone: Basophils/100 WBC (Bld) 1.3 % High 0-1 [facility] Work Phone: Basophils/100 WBC Auto (Bld) 1.3 % High 0-1 [facility] Work Phone: Eosinophils/100 leukocytes 2.2 % Invalid Interpretation Code 0-5 [facility] Work Phone: Eosinophils/100 WBC (Bld) 2.2 % Invalid Interpretation Code 0-5 [facility] Work Phone: Erythrocyte distribution width (RBC) [Ratio] 13.1 % Invalid Interpretation Code 11.6-14.6 [facility] Work Phone: Hematocrit (Bld) [Volume fraction] 45.3 % Invalid Interpretation Code 37-47 [facility] Work Phone: Hemoglobin (Bld) [Mass/Vol] 15.1 g/dL High 12.0-15.0 [facility] Work Phone: Immature granulocytes/100 WBC (Bld) 0.100 % Invalid Interpretation Code 0.0-0.9 [facility] Work Phone: Lymphocytes 3.06 X10 3/UL Invalid Interpretation Code 0.83-4.51 [facility] Work Phone: Lymphocytes (Bld) [#/Vol] 3.06 X10 3/UL Invalid Interpretation Code 0.83-4.51 [facility] Work Phone: Lymphocytes/100 leukocytes 39.6 % Invalid Interpretation Code 19-41 [facility] Work Phone: Lymphocytes/100 WBC (Bld) 39.6 % Invalid Interpretation Code 19-41 [facility] Work Phone: MCH (RBC) [Entitic mass] 33.8 pg High 27.0-32.0 [facility] Work Phone: MCV (RBC) [Entitic vol] 101.3 fL High 81-99 [facility] Work Phone: mean corpuscular hemoglobin concentration, RBC 33.3 G/GL Invalid Interpretation Code 32-36 [facility] Work Phone: Monocytes/100 leukocytes 8.2 % Invalid Interpretation Code 0-10 [facility] Work Phone: Monocytes/100 WBC (Bld) 8.2 % Invalid Interpretation Code 0-10 [facility] Work Phone: neutrophil count, blood 3.8 X10 3/UL Invalid Interpretation Code 2.0-7.7 [facility] Work Phone: Neutrophils/100 WBC (Bld) 48.6 % Invalid Interpretation Code 47-70 [facility] Work Phone: Neutrophils/100 WBC Auto (Bld) 48.6 % Invalid Interpretation Code 47-70 [facility] Work Phone: Platelet mean volume (Bld) [Entitic vol] 9.7 fL Invalid Interpretation Code 6.2-12.0 [facility] Work Phone: Platelets (Bld) [#/Vol] 270 10*3/uL Invalid Interpretation Code 150-450 [facility] Work Phone: RBC (Bld) [#/Vol] 4.47 10*6/uL Invalid Interpretation Code 4.2-5.4 [facility] Work Phone: RDW SD 48.6 fL High 35.1-43.9 [facility] Work Phone: red blood cell distribution width, size density 48.6 fL High 35.1-43.9 [facility] Work Phone: WBC (Bld) [#/Vol] 7.7 10*3/uL Invalid Interpretation Code 4.4-11.0 [facility] Work Phone: Lab Report: Comprehensive Ms tabolic Profilon 07-04-2015 Albumin [Mass/Vol] 3.3 g/dL Low 3.4-5.0 [facility] Work Phone: Albumin/Globulin [Mass ratio] 0.9789048 {ratio} Invalid Interpretation Code 0.9-2.4 [facility] Work Phone: Albumin/Globulin Ratio 0.9 {ratio} Invalid Interpretation Code 0.9-2.4 [facility] Work Phone: ALT [Catalytic activity/Vol] 19 U/L Invalid Interpretation Code 12-78 [facility] Work Phone: Anion gap [Moles/Vol] 7 mmol/L Invalid Interpretation Code 5-15 [facility] Work Phone: AST [Catalytic activity/Vol] 12 U/L Low 15-37 [facility] Work Phone: Bilirubin [Mass/Vol] 0.30 mg/dL Invalid Interpretation Code 0.20-1.00 [facility] Work Phone: Chloride [Moles/Vol] 107 mmol/L Invalid Interpretation Code 98-107 [facility] Work Phone: CO2 (BldV) [Partial pressure] 27.0 mmol/L Invalid Interpretation Code 21.0-32.0 [facility] Work Phone: Creatinine [Mass/Vol] 0.85 mg/dL Invalid Interpretation Code 0.55-1.20 [facility] Work Phone: eGFR (non-black) 89 mL/min/{1.73_m2} Invalid Interpretation Code >60 [facility] Work Phone: GFR/1.73 sq M.predicted among non-blacks MDRD (S/P/Bld) [Vol rate/Area] 74 mL/min/{1.73_m2} Invalid Interpretation Code >60 [facility] Work Phone: Globulin 3.7 g/dL High 2.3-3.5 [facility] Work Phone: Globulin (S) [Mass/Vol] 3.7 g/dL High 2.3-3.5 [facility] Work Phone: Glomerular Filtration rate 89 mL/min Invalid Interpretation Code >60 [facility] Work Phone: Glucose [Mass/Vol] 94 mg/dL Invalid Interpretation Code 70-110 [facility] Work Phone: Potassium [Moles/Vol] 4.1 mmol/L Invalid Interpretation Code 3.5-5.1 [facility] Work Phone: Protein [Mass/Vol] 7.0 g/dL Invalid Interpretation Code 6.4-8.2 [facility] Work Phone: Sodium [Moles/Vol] 141 mmol/L Invalid Interpretation Code 136-145 [facility] Work Phone: Urea nitrogen [Mass/Vol] 14 mg/dL Invalid Interpretation Code 7-18 [facility] Work Phone: Urea nitrogen/Creatinine [Mass ratio] 16.1368868 mg/mg Invalid Interpretation Code 10-20 [facility] Work Phone: Lab Report: Folates, (Folic Acid)on 07-04-2015 Folate [Mass/Vol] 15.10 ng/mL Invalid Interpretation Code 3.1-17.5 [facility] Work Phone: Lab Report: Hemoglobin A1con 07-04-2015 HbA1c (Bld) [Mass fraction] 5.7 % Invalid Interpretation Code 4.2-6.3 [facility] Work Phone: Lab Report: Lipid Profileon 07-04-2015 Cholesterol [Mass/Vol] 275 mg/dL High 200 [facility] Work Phone: Cholesterol in HDL [Mass/Vol] 38 mg/dL Low [facility] Work Phone: Cholesterol in LDL [Mass/Vol] 190 mg/dL High 0-130 [facility] Work Phone: Lipoprotein.pre-beta [Mass/Vol] 47 mg/dL High 5-40 [facility] Work Phone: Triglyceride [Mass/Vol] 235 mg/dL High [facility] Work Phone: Lab Report: Partial Thrombop last Timeon 07-04-2015 aPTT Coag (Bld) [Time] 37.7 s High 24.1-36.2 [facility] Work Phone: Lab Report: Prothrombin Time w/INRon 07-04-2015 INR Coag (PPP) [Relative time] 0.9 {INR} Invalid Interpretation Code [facility] Work Phone: Prothrombin time (PT) Coag time (PPP) 12.1 s Invalid Interpretation Code 11.7-14.9 [facility] Work Phone: PT Coag (PPP) [Time] 12.831627871 s Invalid Interpretation Code 11.7-14.9 [facility] Work Phone: Lab Report: Thyroid Stim Hor chinmay (TSH)on 07-04-2015 TSH Qn 1.78 m[IU]/L Invalid Interpretation Code 0.358-3.74 [facility] Work Phone: Lab Report: Vitamin B12on Cobalamin (Vitamin B12) [Mass/Vol] 302 pg/mL Invalid Interpretation Code 211-911 [facility] Work Phone: Lab Report: Vitamin D,25 Hyd roxyon 07-04-2015 vitamin D 25-hydroxy, serum 59.8 ng/mL Invalid Interpretation Code [facility] Work Phone: Vitamin D 25-OH 59.8 ng/mL Invalid Interpretation Code [facility] Work Phone: Office Visit: [facility] 02-07-20 15 cardiac risk group C Invalid Interpretation Code [facility] Work Phone: General cardiovascular disease 10Y risk [#] [place]D'Agostino N/A Invalid Interpretation Code [facility] Work Phone: VITAMIN B12 AND FOLATES (824 04)Ordered By: Sack Sorter on 10-11-2014 Cobalamin (Vitamin B12) [Mass/Vol] 338 pg/mL Normal 211-946 [facility]; [facility] Work Phone: Comment on above: PATIENT NOT FASTINGP ERFORMED BY: Gradalis70 [facility] [id number] Information: [id number] Folate [Mass/Vol] 13.7 ng/mL Normal Compreh ensive Internal Medicine; [facility] Work Phone: Comment on above: A serum folate vanita ntration of less than 3.1 ng/mL isconsidered to represent clinical deficiency. PATIENT NOT FASTINGP ERFORMED BY: Gradalis70 [employer] [place] [id number] Information: [id number] (821 05)Ordered By: Sack Sorter on 10-02-2014 AFP.tumor marker [Mass/Vol] 3.3 ng/mL Normal 0.0-8.3 [facility]; [facility] Work Phone: Comment on above: Isak ECLIA methodol ogy PATIENT WAS FASTINGP ERFORMED BY: SHERLEY LabCoRobert Wood Johnson University HospitalFdcyuk8084 [facility] [id number] Blood Glucose , Office (8296 2)Ordered By: Janay Edwards on 10-02-2014 Glucose Glucometer (BldC) [Moles/Vol] 100 1 Normal [facility]; [facility] Work Phone: CBC with auto diff (41657)Or dered By: Sack Sorter on 10-02-2014 Basophils (Bld) [#/Vol] 0.1 10*3/uL Normal 0.0-0.2 [facility]; [facility] Work Phone: Comment on above: PATIENT WAS FASTINGP ERFORMED BY: [facility] [place]6370 [facility] [id number] Information: [id number] Basophils/100 WBC (Bld) 1 % Normal C omprehensive Internal Medicine; [facility] Work Phone: Comment on above: PATIENT WAS FASTINGP ERFORMED BY: [facility] [place]ault6370 [facility] [id number] Information: [id number] Eosinophils (Bld) [#/Vol] 0.2 10*3/uL Normal 0.0-0.4 [facility]; [facility] Work Phone: Comment on above: PATIENT WAS FASTINGP ERFORMED BY: LabCo Pssczx2551 [facility] [id number] Information: [id number] Eosinophils/100 WBC (Bld) 2 % Normal [facility]; [facility] Work Phone: Comment on above: PATIENT WAS FASTINGP ERFORMED BY: LabCo Zhspqe9022 [facility] [id number] Information: [id number] Erythrocyte distribution width (RBC) [Ratio] 13.5 % Normal 12.3-15.4 [facility]; [facility] Work Phone: Comment on above: PATIENT WAS FASTINGP ERFORMED BY: SHERLEY Shultz6370 [facility] [id number] Information: [id number] Hematocrit (Bld) [Volume fraction] 46.8 % Abnormal 34.0-46.6 [facility]; [facility] Work Phone: Comment on above: PATIENT WAS FASTINGP ERFORMED BY: [address] [id number] Information: [id number] Hemoglobin (Bld) [Mass/Vol] 15.6 g/dL Normal 11.1-15.9 [facility]; [facility] Work Phone: Comment on above: PATIENT WAS FASTINGP ERFORMED BY: [address] [id number] Information: [id number] Immature granulocytes (Bld) [#/Vol] 0.0 10*3/uL Normal 0.0-0.1 [facility]; [facility] Work Phone: Comment on above: PATIENT WAS FASTINGP ERFORMED BY: SHERLEY Butcher Bv[address] [id number] Information: [id number] Immature granulocytes/100 WBC (Bld) 0 % Normal [facility]; [facility] Work Phone: Comment on above: PATIENT WAS FASTINGP ERFORMED BY: [address] [id number] Information: [id number] Lymphocytes (Bld) [#/Vol] 3.2 10*3/uL Abnormal 0.7-3.1 [facility]; [facility] Work Phone: Comment on above: PATIENT WAS FASTINGP ERFORMED BY: [address] [id number] Information: [id number] Lymphocytes/100 WBC (Bld) 39 % Normal [facility]; [facility] Work Phone: Comment on above: PATIENT WAS FASTINGP ERFORMED BY: SHERLEY Shultz6370 [facility] [id number] Information: [id number] MCH (RBC) [Entitic mass] 33.3 pg Abnormal 26.6-33.0 [facility]; [facility] Work Phone: Comment on above: PATIENT WAS FASTINGP ERFORMED BY: [address] [id number] Information: [id number] MCHC (RBC) [Mass/Vol] 33.3 g/dL Normal 31.5-35.7 [facility]; [facility] Work Phone: Comment on above: PATIENT WAS FASTINGP ERFORMED BY: SHERLEY [address] [id number] Information: [id number] MCV (RBC) [Entitic vol] 100 fL Abnormal 79-97 C omppomerene hospitalensive Internal [facility]; [facility] Work Phone: Comment on above: PATIENT WAS FASTINGP ERFORMED BY: SHERLEY [address] [id number] Information: [id number] Monocytes (Bld) [#/Vol] 0.8 10*3/uL Normal 0.1-0.9 [facility]; [facility] Work Phone: Comment on above: PATIENT WAS FASTINGP ERFORMED BY: [facility]6370 [facility] [id number] Information: [id number] Monocytes/100 WBC (Bld) 10 % Normal C omprehensive [facility]; [facility] Work Phone: Comment on above: PATIENT WAS FASTINGP ERFORMED BY: [place] [id number] [facility] [id number] Information: [id number] Neutrophils (Bld) [#/Vol] 4.0 10*3/uL Normal 1.4-7.0 [facility]; [facility] Work Phone: Comment on above: PATIENT WAS FASTINGP ERFORMED BY: SHERLEY Clarence Shultz6370 [facility] [id number] Information: [id number] Neutrophils/100 WBC (Bld) 48 % Normal [facility]; [facility] Work Phone: Comment on above: PATIENT WAS FASTINGP ERFORMED BY: SHERLEY [facility]Samar[facility] Hospital Rtabfo9071 [facility] [id number] Information: [id number] Platelets (Bld) [#/Vol] 268 10*3/uL Normal 150-379 [facility]; [facility] Work Phone: Comment on above: PATIENT WAS FASTINGP ERFORMED BY: SHERLEY Hadley Pvzotu4971 [facility] [id number] Information: [id number] RBC (Bld) [#/Vol] 4.69 10*6/uL Normal 3.77-5.28 Compr ehensive Internal Medicine; [facility] Work Phone: Comment on above: PATIENT WAS FASTINGP ERFORMED BY: SHERLEY Hadley Aotodr8885 [facility] [id number] Information: [id number] WBC (Bld) [#/Vol] 8.2 10*3/uL Normal 3.4-10.8 Compre [facility]; [facility] Work Phone: Comment on above: PATIENT WAS FASTINGP ERFORMED BY: SHERLEY LabCo Bonoco5366 [facility] [id number] Information: [id number] HgA1C , Office (33720)Caitlyne d By: Janay Edwards on 10-02-2014 HbA1c (Bld) [Mass fraction] 5.9 % Normal 4.6 - 7.1 [facility]; [facility] Work Phone: LIPID PANEL ([phone])Ordered B y: Sack Sorter on 10-02-2014 Cholesterol [Mass/Vol] 261 mg/dL Abnormal 100-199 Co mprehensive [facility]; [facility] Work Phone: Comment on above: PATIENT WAS FASTINGP ERFORMED BY: CB [facility] Pcjoyl8665 [address] RoadDublin [place] [id number] Cholesterol in HDL [Mass/Vol] 37 mg/dL Abnormal [facility]; [facility] Work Phone: Comment on above: According to ATP-III Guidelines, HDL-C >59 mg/dL is considered anegative risk factor for CHD. PATIENT WAS FASTINGP ERFORMED BY: CB [facility] Hzsded8709 [address] Marketing IncDublin [place] [id number] Cholesterol in LDL [Mass/Vol] 187 mg/dL Abnormal 0-99 [facility]; [facility] Work Phone: Comment on above: PATIENT WAS FASTINGP ERFORMED BY: CB [facility] Eodrzl9568 [address] Marketing IncDublin [place] [id number] Cholesterol in LDL/Cholesterol in HDL [Mass ratio] 5.1 {ratio_units} Abnormal 0.0-3.2 [facility]; [facility] Work Phone: Comment on above: LDL/HDL Ratio Men Wo men 1/2 Avg.Risk 1.0 1.5 Avg.Risk 3.6 3.2 2X Avg.Risk 6.2 5.0 3X Avg.Risk 8.0 6.1 PATIENT WAS FASTINGP ERFORMED BY: CB [facility] Byjuom0098 [address] Marketing IncDublin [place] [id number] Cholesterol in VLDL [Mass/Vol] 37 mg/dL Normal 5-40 [facility]; [facility] Work Phone: Comment on above: PATIENT WAS FASTINGP ERFORMED BY: CB [facility] Rkaprh3371 [address] RoadDublin [place] [id number] Triglyceride [Mass/Vol] 185 mg/dL Abnormal 0-149 C omprehensive [facility]; [facility] Work Phone: Comment on above: PATIENT WAS FASTINGP ERFORMED BY: CB [facility] Djvbru8308 [address] RoadDublin [place] [id number] METABOLIC PANEL, COMPREHENSI VE (89002)Ordered By: Sack Sorter on 10-02-2014 Albumin [Mass/Vol] 4.2 g/dL Normal 3.5-5.5 [facility]; [facility] Work Phone: Comment on above: PATIENT WAS FASTINGP ERFORMED BY: CB [facility] Niqumj1796 [address] RoadDublin [place] [id number] Albumin/Globulin [Mass ratio] 1.9 {ratio} Normal 1.1-2.5 [facility]; [facility] Work Phone: Comment on above: PATIENT WAS FASTINGP ERFORMED BY: CB [facility] Sukjob1441 [address] RoadDublin [place] [id number] ALP [Catalytic activity/Vol] 116 U/L Normal 39-117 [facility]; [facility] Work Phone: Comment on above: PATIENT WAS FASTINGP ERFORMED BY: CB [facility] Eaiyku0664 [address] RoadDublin [place] [id number] ALT [Catalytic activity/Vol] 11 U/L Normal 0-32 [facility]; [facility] Work Phone: Comment on above: PATIENT WAS FASTINGP ERFORMED BY: CB [facility] Ihetjl5108 [address] RoadDublin [place] [id number] AST [Catalytic activity/Vol] 13 U/L Normal 0-40 [facility]; [facility] Work Phone: Comment on above: PATIENT WAS FASTINGP ERFORMED BY: CB [facility] Uqkdoc0844 [address] RoadDublin [place] [id number] Bilirubin [Mass/Vol] 0.4 mg/dL Normal 0.0-1.2 [facility]; [facility] Work Phone: Comment on above: PATIENT WAS FASTINGP ERFORMED BY: CB [facility] Ilicng4364 [address] RoadDublin [place] [id number] Calcium [Mass/Vol] 9.6 mg/dL Normal 8.7-10.2 [facility]; [facility] Work Phone: Comment on above: PATIENT WAS FASTINGP ERFORMED BY: CB [facility] Mdizpv0712 [address] RoadDublin [place] [id number] Chloride [Moles/Vol] 103 mmol/L Normal 97-108 Comp rehensive Internal Medicine; [facility] Work Phone: Comment on above: PATIENT WAS FASTINGP ERFORMED BY: CB [facility] Gdebva0032 [address] RoadDublin [place] [id number] CO2 [Moles/Vol] 23 mmol/L Normal 18-29 [facility]; [facility] Work Phone: Comment on above: PATIENT WAS FASTINGP ERFORMED BY: CB [facility] Ulswpw7226 [address] RoadDuin [place] [id number] Creatinine [Mass/Vol] 0.89 mg/dL Normal 0.57-1.00 [facility] prehensive Internal Medicine; [facility] Work Phone: Comment on above: PATIENT WAS FASTINGP ERFORMED BY: CB [facility] Vrmzir2437 [address] RoadDublin [place] [id number] GFR/1.73 sq M.predicted among blacks CKD-EPI (S/P/Bld) [Vol rate/Area] 84 mL/min/1.73 Normal [facility]; [facility] Work Phone: Comment on above: PATIENT WAS FASTINGP ERFORMED BY: CB [facility] Zqvvzw2535 [address] RoadDuin [place] [id number] GFR/1.73 sq M.predicted among non-blacks CKD-EPI (S/P/Bld) [Vol rate/Area] 73 mL/min/1.73 Normal [facility]; [facility] Work Phone: Comment on above: PATIENT WAS FASTINGP ERFORMED BY: CB [facility] Exjunf5316 [address] RoadDublin [place] [id number] Globulin (S) [Mass/Vol] 2.2 g/dL Normal 1.5-4.5 C omprehensive Internal Medicine; [facility] Work Phone: Comment on above: PATIENT WAS FASTINGP ERFORMED BY: SHERLEY [facility] Aurese0331 [address] RoadDublin [place] [id number] Glucose [Mass/Vol] 94 mg/dL Normal 65-99 [facility]; [facility] Work Phone: Comment on above: PATIENT WAS FASTINGP ERFORMED BY: CB [facility] Goaykx3094 [address] RoadDublin [place] [id number] Potassium [Moles/Vol] 5.0 mmol/L Normal 3.5-5.2 [facility]; [facility] Work Phone: Comment on above: PATIENT WAS FASTINGP ERFORMED BY: CB [facility] Tkwrtl6866 [address] RoadDublin [place] [id number] Protein [Mass/Vol] 6.4 g/dL Normal 6.0-8.5 [facility]; [facility] Work Phone: Comment on above: PATIENT WAS FASTINGP ERFORMED BY: CB [facility] Eadcsx6930 [address] RoadDublin [place] [id number] Sodium [Moles/Vol] 140 mmol/L Normal 134-144 [facility]; [facility] Work Phone: Comment on above: PATIENT WAS FASTINGP ERFORMED BY: CB [facility] Sfpvqc1240 [address] RoadDublin [place] [id number] Urea nitrogen [Mass/Vol] 12 mg/dL Normal 6-24 [facility]; [facility] Work Phone: Comment on above: PATIENT WAS FASTINGP ERFORMED BY: CB [facility] Uyhihl9799 [address] RoadDublin [place] [id number] Urea nitrogen/Creatinine [Mass ratio] 13 mg/mg Normal 9-23 [facility]; [facility] Work Phone: Comment on above: PATIENT WAS FASTINGP ERFORMED BY: CB [facility] Fepunk5872 [address] RoadDublin [place] [id number] MICROALBUMINOrdered By: Syst em [employer] on 10-02-2014 Albumin DL <= 20 mg/L (U) [Mass/Vol] 3.4 ug/mL Normal 0.0-17.0 [facility]; [facility] Work Phone: Comment on above: PATIENT WAS FASTINGP ERFORMED BY: SHERLEY Butcher Kvzuim9012 [facility] [id number] Albumin/Creatinine (U) [Mass ratio] 4.3 {mg/g_creat} Normal 0.0-30.0 [facility]; [facility] Work Phone: Comment on above: PATIENT WAS FASTINGP ERFORMED BY: [facility] Kpkzzt6490 [facility] [id number] Creatinine (U) [Mass/Vol] 78.3 mg/dL Normal 15.0-278.0 [facility]; [facility] Work Phone: Comment on above: PATIENT WAS FASTINGP ERFORMED BY: [facility] Tzyofh4653 [facility] [id number] PT (Prothrobim Time) (30857) Ordered By: Sack Sorter on 10-02-2014 INR Coag (PPP) [Relative time] 1.0 {INR} Normal 0.8-1.2 [facility]; [facility] Work Phone: Comment on above: Reference interval i s for non-anticoagulated patients. . Suggested INR therapeutic range for Vitamin K antagonist therapy: Standard Dose (moderate intensity therapeutic range): 2.0 - 3.0 Higher intensity therapeutic range 2.5 - 3.5 PATIENT WAS FASTINGP ERFORMED BY: [facility] Lygoah4359 [facility] [id number] PT Coag (PPP) [Time] 10.3 s Normal 9.1-12.0 [facility]; [facility] Work Phone: Comment on above: PATIENT WAS FASTINGP ERFORMED BY: [facility] Iagmlj3818 [facility] [id number] PTT (Activated Partial Throm boplastin Time) (31079)Ordered By: Sack Sorter on 10-02-2014 aPTT Coag (PPP) [Time] 33 s Normal 24-33 Co mprehensive [facility]; [facility] Work Phone: Comment on above: This test has not be en validated for monitoring unfractionated heparintherapy. aPTT-based therapeutic ranges for unfractionated heparintherapy have not been established. For general guidelines onHeparin monitoring, refer to the [facility] Directory of Services. PATIENT WAS FASTINGP ERFORMED BY: [facility]6370 [address]Dublin [place] [id number] TSH (77645)Ordered By: [employer] m [employer] on 10-02-2014 TSH Qn 2.210 {uIU/mL} Normal 0.450-4.500 Comprehen sive Internal Medicine; [facility] Work Phone: Comment on above: PATIENT WAS FASTINGP ERFORMED BY: [facility]6370 [address] [place] [id number] URINALYSIS, W/ MICRO (34687) Ordered By: Sack Sorter on 10-02-2014 Appearance (U) Clear Normal Comprehens brian Internal Medicine; [facility] Work Phone: Comment on above: PATIENT WAS FASTINGP ERFORMED BY: [facility]6[address] [place] [id number] Bilirubin Ql (U) Negative Normal Comprehe nsive Internal Medicine; [facility] Work Phone: Comment on above: PATIENT WAS FASTINGP ERFORMED BY: [facility]6[address] [place] [id number] Color (U) Yellow Normal [facility]; [facility] Work Phone: Comment on above: PATIENT WAS FASTINGP ERFORMED BY: My HoodPers[facility] HospitalFlsxdr9908 [address] RoadDublin [place] [id number] Glucose Ql (U) Negative Normal Comprehens brian [facility]; [facility] Work Phone: Comment on above: PATIENT WAS FASTINGP ERFORMED BY: [facility] Sunsetlin6370 [address] RoadDublin [place] [id number] Hemoglobin Ql (U) Negative Normal Compreh ensive Internal Medicine; [facility] Work Phone: Comment on above: PATIENT WAS FASTINGP ERFORMED BY: SHERLEY Staufferlin6370 [address] RoadDublin [place] [id number] Ketones Ql (U) Negative Normal Comprehens brian [facility]; [facility] Work Phone: Comment on above: PATIENT WAS FASTINGP ERFORMED BY: SHERLEY Shultz6370 [address] RoadDublin [place] [id number] Leukocyte esterase Test strip Ql (U) 1+ Abnormal [facility]; [facility] Work Phone: Comment on above: PATIENT WAS FASTINGP ERFORMED BY: SHERLEY Staufferlin6370 [address] RoadDublin [place] [id number] Microscopic observation LM Nom (Urine sed) See below: Normal [facility]; [facility] Work Phone: Comment on above: Microscopic was mesfin cated and was performed. PATIENT WAS FASTINGP ERFORMED BY: SHERLEY Staufferlin6370 [address] RoadDublin [place] [id number] Nitrite Ql (U) Negative Normal Comprehens brian [facility]; [facility] Work Phone: Comment on above: PATIENT WAS FASTINGP ERFORMED BY: SHERLEY Staufferlin6370 [address] [place] [id number] pH (U) 7.5 [pH] Normal 5.0-7.5 [facility]; [facility] Work Phone: Comment on above: PATIENT WAS FASTINGP ERFORMED BY: SHERLEY Staufferlin6370 [address]Dublin [place] [id number] Protein Ql (U) Negative Normal Comprehens brian [facility]; [facility] Work Phone: Comment on above: PATIENT WAS FASTINGP ERFORMED BY: SHERLEY Staufferlin6370 [address] [place] [id number] Specific gravity (U) [Rel density] 1.016 1 Normal 1.005-1.030 [facility]; [facility] Work Phone: Comment on above: PATIENT WAS FASTINGP ERFORMED BY: SHERLEY LabPolo StaufferGldkir5772 [address] RoadDublin [place] [id number] Urobilinogen (U) [Mass/Vol] 0.2 mg/dL Normal 0.0-1.9 [facility]; [facility] Work Phone: Comment on above: PATIENT WAS FASTINGP ERFORMED BY: LabCoRobert Wood Johnson University HospitalLuekfc7289 [facility] [id number] Vitamin D Hydroxy (54181)Ord ered By: Sack Sorter on 10-02-2014 25-hydroxyvitamin D [Mass/Vol] 13.6 ng/mL Abnormal 30.0-100.0 [facility]; [facility] Work Phone: Comment on above: Vitamin D deficiency has been defined by the [place] of[place]icine and an Endocrine Society practice guideline as alevel of serum 25-OH vitamin D less than 20 ng/mL (1,2).The Endocrine Society went on to further define vitamin Dinsufficiency as a level between 21 and 29 ng/mL (2).1. IOM ([place] of Medicine). 2010. Dietary reference intakes for calcium and D. [place]: The National Academies Press.2. Feng MF, Yumiko ATKINSON, Juan MCCARTHY, et al. Evaluation, treatment, and prevention of vitamin D deficiency: an Endocrine Society clinical practice guideline. JCEM. 2010; 96(7):1911-30. PATIENT WAS FASTINGP ERFORMED BY: RFinityRobert Wood Johnson University HospitalLzprfr8083 [facility] [id number] Blood Glucose , Office (8296 2)Ordered By: Edith Govea on 07-28-2012 Glucose Glucometer (BldC) [Moles/Vol] 127 1 Normal [facility]; [facility] Work Phone: HgA1C , Office (96001)Ordere d By: Nerissa Rodriguez on 07-28-2012 HbA1c (Bld) [Mass fraction] 6.0 % Normal 4.6 - 7.1 [facility]; [facility] Work Phone: Blood Glucose , Office (8296 2)Ordered By: Janay Edwards on 03-25-2012 Glucose Glucometer (BldC) [Moles/Vol] 151 1 Normal [facility]; [facility] Work Phone: HgA1C , Office (94985)Ordere d By: Janay Edwards on 03-25-2012 HbA1c (Bld) [Mass fraction] 6.0 % Normal 4.6 - 7.1 [facility]; [facility] Work Phone: Blood Glucose , Office (8220 2)Ordered By: Janay Edwards on 11-19-2011 Glucose Glucometer (BldC) [Moles/Vol] 141 1 Normal [facility]; [facility] Work Phone: HgA1C , Office (21519)Ordere d By: Janay Edwards on 11-19-2011 HbA1c (Bld) [Mass fraction] 5.7 % Normal 4.6 - 7.1 [facility]; [facility] Work Phone: Urinalysis, Office (17573)Or dered By: Edith Govea on 09-09-2010 Bilirubin [...] Bacteria identified Cx Nom (U) Escherichia coli [facility] Work Phone: Vital Signs Date Time Vital Sign Value Performing Clinician Facility 05-01-2025 15:39-0400 Body height 170.[address] Martin Gutierrez MD Work Phone: 3(617)031-427148 [place] [address] 05-01-2025 15:39-0400 Body mass index (BMI) [Ratio] 29 kg/m2 Dr. Martin Gutierrez MD Work Phone: 3(193)725-370682 [place] [address] 05-01-2025 15:39-0400 Body temperature 98.2 [degF] Dr. Martin Gutierrez MD Work Phone: 4(820)409-685582 [place] [address] 05-01-2025 15:39-0400 Body weight 83.[address] Martin Gutierrez MD Work Phone: 4(475)169-752282 [place] [address] 05-01-2025 15:39-0400 Diastolic blood pressure 74 mm[Hg] Dr. Martin Gutierrez MD Work Phone: 6(676)606-762882 [place] [address] 05-01-2025 15:39-0400 Heart rate 71 /min Dr. Martin Gutierrez MD Work Phone: 4(935)462-309182 [place] [address] 05-01-2025 15:39-0400 Respiratory rate 18 /min Dr. Martin Gutierrez MD Work Phone: 4(517)978-301082 [place] [address] 05-01-2025 15:39-0400 SaO2% (BldA) [Mass fraction] 96 % Dr. Martin Gutierrez MD Work Phone: 8(160)073-705082 [place] [address] 05-01-2025 15:39-0400 Systolic blood pressure 145 mm[Hg] Dr. Martin Gutierrez MD Work Phone: 4(795)671-701848 [place] [address] 10-04-2024 10:55-0500 Body height 170.[address] Martin Gutierrez MD Work Phone: 3(084)403-281582 [place] [address] 10-04-2024 10:55-0500 Body mass index (BMI) [Ratio] 28.2 kg/m2 Dr. Martin Gutierrez MD Work Phone: 9(855)857-603648 [place] [address] 10-04-2024 10:55-0500 Body temperature 97.8 [degF] Dr. Martin Gutierrez MD Work Phone: 1(639)047-865182 [place] [address] 10-04-2024 10:55-0500 Body weight 81.[address] Martin Gutierrez MD Work Phone: 7(529)990-735648 [place] [address] 10-04-2024 10:55-0500 Diastolic blood pressure 74 mm[Hg] Dr. Martin Gutierrez MD Work Phone: 9(706)195-601348 [place] [address] 10-04-2024 10:55-0500 Heart rate 76 /min Dr. Martin Gutierrez MD Work Phone: 5(526)827-886282 [place] [address] 10-04-2024 10:55-0500 Respiratory rate 18 /min Dr. Martin Gutierrez MD Work Phone: 7(201)097-045382 [place] [address] 10-04-2024 10:55-0500 SaO2% (BldA) [Mass fraction] 95 % Dr. Martin Gutierrez MD Work Phone: 2(142)502-272882 [place] [address] 10-04-2024 10:55-0500 Systolic blood pressure 123 mm[Hg] Dr. Martin Gutierrez MD Work Phone: 5(888)497-421382 [place] [address] 09-28-2024 11:57-0500 Body temperature 97.9 [degF] Dr. Martin Gutierrez MD Work Phone: 0(337)793-622482 [place] [address] 09-28-2024 11:57-0500 Diastolic blood pressure 61 mm[Hg] Dr. Martin Gutierrez MD Work Phone: 1(175)185-442582 [place] [address] 09-28-2024 11:57-0500 Heart rate 80 /min Dr. Martin Gutierrez MD Work Phone: 5(042)900-213048 [place] [address] 09-28-2024 11:57-0500 Respiratory rate 20 /min Dr. Martin Gutierrez MD Work Phone: 2(331)378-289148 [place] [address] 09-28-2024 11:57-0500 SaO2% (BldA) [Mass fraction] 93 % Dr. Martin Gutierrez MD Work Phone: 4(102)240-526748 [place] [address] 09-28-2024 11:57-0500 Systolic blood pressure 131 mm[Hg] Dr. Martin Gutierrez MD Work Phone: 8(759)790-009148 [place] [address] 09-28-2024 09:17-0500 Inhaled oxygen flow rate 3 L/min Dr. Martin Gutierrez MD Work Phone: 9(428)245-093448 [place] [address] 09-28-2024 04:03-0500 Body mass index (BMI) [Ratio] 28.4 kg/m2 Dr. Martin Gutierrez MD Work Phone: 9(105)424-379648 [place] [address] 09-28-2024 04:03-0500 Body weight 82.[address] Martin Gutierrez MD Work Phone: 6(777)573-134348 [place] [address] 01-13-2024 14:58-0400 Body temperature 97.2 [degF] Dr. Martin Gutierrez MD Work Phone: 4(655)893-832048 [place] [address] 01-13-2024 14:58-0400 Diastolic blood pressure 54 mm[Hg] Dr. Martin Gutierrez MD Work Phone: 8(423)485-992948 [place] [address] 01-13-2024 14:58-0400 Heart rate 69 /min Dr. Martin Gutierrez MD Work Phone: 4(865)441-426748 [place] [address] 01-13-2024 14:58-0400 Respiratory rate 16 /min Dr. Martin Gutierrez MD Work Phone: 1(745)354-387848 [place] [address] 01-13-2024 14:58-0400 SaO2% (BldA) [Mass fraction] 94 % Dr. Martin Gutierrez MD Work Phone: 1(427)244-902248 [place] [address] 01-13-2024 14:58-0400 Systolic blood pressure 116 mm[Hg] Dr. Martin Gutierrez MD Work Phone: 0(454)627-949848 [place] [address] 01-13-2024 13:19-0400 Body mass index (BMI) [Ratio] 30.8 kg/m2 Dr. Martin Gutierrez MD Work Phone: 0(218)434-567748 [place] [address] 09-30-2023 13:26-0500 Body height 167.[address] Martin Gutierrez Work Phone: 6(314)407-300848 [place] [address] 09-30-2023 13:26-0500 Body mass index (BMI) [Ratio] 30.4 kg/m2 Dr. Martin Gutierrez Work Phone: 4(101)537-570948 [place] [address] 09-30-2023 13:26-0500 Body temperature 98.6 [degF] Dr. Martin Gutierrez Work Phone: 5(588)821-405248 [place] [address] 09-30-2023 13:26-0500 Body weight 85.[address] Martin Gutierrez Work Phone: 1(525)264-329948 [place] [address] 09-30-2023 13:26-0500 Diastolic blood pressure 72 mm[Hg] Dr. Martin Gutierrez Work Phone: 0(383)609-184948 [place] [address] 09-30-2023 13:26-0500 Heart rate 71 /min Dr. Martin Gutierrez Work Phone: 7(888)211-515082 [place] [address] 09-30-2023 13:26-0500 Respiratory rate 18 /min Dr. Martin Gutierrez Work Phone: 6(564)382-933282 [place] [address] 09-30-2023 13:26-0500 SaO2% (BldA) [Mass fraction] 96 % Dr. Martin Gutierrez Work Phone: 2(225)661-399648 [place] [address] 09-30-2023 13:26-0500 Systolic blood pressure 126 mm[Hg] Dr. Martin Gutierrez Work Phone: 1(172)102-165382 [place] [address] 04-15-2023 11:03-0400 Body height 167.[address] Martin Gutierrez Work Phone: 0(262)375-845782 [place] [address] 04-15-2023 11:01-0400 Body mass index (BMI) [Ratio] 31.6 kg/m2 Dr. Martin Gutierrez Work Phone: 9(056)236-173448 [place] [address] 04-15-2023 11:01-0400 Body temperature 98.5 [degF] Dr. Martin Gutierrez Work Phone: 3(194)308-252548 [place] [address] 04-15-2023 11:01-0400 Body weight 89.[address] Martin Gutierrez Work Phone: 1(883)943-678048 [place] [address] 04-15-2023 11:01-0400 Diastolic blood pressure 75 mm[Hg] Dr. Martin Gutierrez Work Phone: 0(651)467-481648 [place] [address] 04-15-2023 11:01-0400 Heart rate 70 /min Dr. Martin Gutierrez Work Phone: [facility] 04-15-2023 11:01-0400 Respiratory rate 16 /min Dr. Martin Gutierrez Work Phone: 4(123)465-350948 [place] [address] 04-15-2023 11:01-0400 SaO2% (BldA) [Mass fraction] 96 % Dr. Martin Gutierrez Work Phone: 1(976)224-229348 [place] [address] 04-15-2023 11:01-0400 Systolic blood pressure 172 mm[Hg] Dr. Martin Gutierrez Work Phone: 2(279)043-477648 [place] [address] 10-20-2022 07:46-0500 Body height 167.[address] Martin Gutierrez Work Phone: 0(214)236-526382 [place] [address] 10-20-2022 07:46-0500 Body mass index (BMI) [Ratio] 32.4 kg/m2 Dr. Martin Gutierrez Work Phone: 1(427)798-846782 [place] [address] 10-20-2022 07:46-0500 Body temperature 98.2 [degF] Dr. Martin Gutierrez Work Phone: 8(622)929-831782 [place] [address] 10-20-2022 07:46-0500 Body weight 91.[address] Martin Gutierrez Work Phone: 2(784)683-448282 [place] [address] 10-20-2022 07:46-0500 Diastolic blood pressure 75 mm[Hg] Dr. Martin Gutierrez Work Phone: 5(916)368-486682 [place] [address] 10-20-2022 07:46-0500 Heart rate 80 /min Dr. Martin Gutierrez Work Phone: 3(458)800-755782 [place] [address] 10-20-2022 07:46-0500 Respiratory rate 20 /min Dr. Martin Gutierrez Work Phone: 1(290)655-422582 [place] [address] 10-20-2022 07:46-0500 SaO2% (BldA) [Mass fraction] 95 % Dr. Martin Gutierrez Work Phone: 9(305)521-288982 [place] [address] 10-20-2022 07:46-0500 Systolic blood pressure 170 mm[Hg] Dr. Martin Gutierrez Work Phone: 4(599)414-281148 [place] [address] 09-02-2022 13:21-0500 Body mass index (BMI) [Ratio] 31.5 kg/m2 Dr. Martin Gutierrez Work Phone: [facility] 09-02-2022 13:21-0500 Body temperature 97.9 [degF] Dr. Martin Gutierrez Work Phone: [facility] 09-02-2022 13:21-0500 Body weight 88.[address] Martin Gutierrez Work Phone: [facility] 09-02-2022 13:21-0500 Diastolic blood pressure 68 mm[Hg] Dr. Martin Gutierrez Work Phone: 1(122)273-103248 [place] [address] 09-02-2022 13:21-0500 Heart rate 72 /min Dr. Martin Gutierrez Work Phone: 4(106)069-386448 [place] [address] 09-02-2022 13:21-0500 Respiratory rate 16 /min Dr. Martin Gutierrez Work Phone: [facility] 09-02-2022 13:21-0500 SaO2% (BldA) [Mass fraction] 94 % Dr. Martin Gutierrez Work Phone: [facility] 09-02-2022 13:21-0500 Systolic blood pressure 133 mm[Hg] Dr. Martin Gutierrez Work Phone: [facility] 02-19-2022 14:08-0400 Body height 167.[address] Martin Gutierrez Work Phone: [facility] Work Phone: 02-19-2022 14:04-0400 Body mass index (BMI) [Ratio] 32 kg/m2 Dr. Martin Gutierrez Work Phone: [facility] Work Phone: 02-19-2022 14:04-0400 Body temperature 97.8 [degF] Dr. Martin Gutierrez Work Phone: [facility] Work Phone: 02-19-2022 14:04-0400 Body weight 90.[address] Martin Gutierrez Work Phone: [facility] Work Phone: 02-19-2022 14:04-0400 Diastolic blood pressure 75 mm[Hg] Dr. Martin Gutierrez Work Phone: [facility] Work Phone: 02-19-2022 14:04-0400 Heart rate 81 /min Dr. Martin Gutierrez Work Phone: [facility] Work Phone: 02-19-2022 14:04-0400 Respiratory rate 15 /min Dr. Martin Gutierrez Work Phone: [facility] Work Phone: 02-19-2022 14:04-0400 SaO2% (BldA) [Mass fraction] 91 % Dr. Martin Gutierrez Work Phone: [facility] Work Phone: 02-19-2022 14:04-0400 Systolic blood pressure 132 mm[Hg] Dr. Martin Gutierrez Work Phone: [facility] Work Phone: 11-06-2021 14:44-0400 Body height 167.[address] Martin Gutierrez Work Phone: [facility] Work Phone: 11-06-2021 14:44-0400 Body mass index (BMI) [Ratio] 32.8 kg/m2 Dr. Martin Gutierrez Work Phone: [facility] Work Phone: 11-06-2021 14:44-0400 Body temperature 98.6 [degF] Dr. Martin Gutierrez Work Phone: [facility] Work Phone: 11-06-2021 14:44-0400 Body weight 92.[address] Martin Gutierrez Work Phone: [facility] Work Phone: 11-06-2021 14:44-0400 Diastolic blood pressure 63 mm[Hg] Dr. Martin Gutierrez Work Phone: [facility] Work Phone: 11-06-2021 14:44-0400 Heart rate 73 /min Dr. Martin Gutierrez Work Phone: [facility] Work Phone: 11-06-2021 14:44-0400 Respiratory rate 14 /min Dr. Martin Gutierrez Work Phone: [facility] Work Phone: 11-06-2021 14:44-0400 SaO2% (BldA) [Mass fraction] 95 % Dr. Martin Gutierrez Work Phone: [facility] Work Phone: 11-06-2021 14:44-0400 Systolic blood pressure 105 mm[Hg] Dr. Martin Gutierrez Work Phone: [facility] Work Phone: 10-10-2021 14:52-0500 Diastolic blood pressure 49 mm[Hg] Dr. Martin Gutierrez Work Phone: [facility] 10-10-2021 14:52-0500 Heart rate 68 /min Dr. Martin Gutierrez Work Phone: [facility] 10-10-2021 14:52-0500 Respiratory rate 16 /min Dr. Martin uGtierrez Work Phone: [facility] 10-10-2021 14:52-0500 SaO2% (BldA) [Mass fraction] 97 % Dr. Martin Gutierrez Work Phone: [facility] 10-10-2021 14:52-0500 Systolic blood pressure 119 mm[Hg] Dr. Martin Gutierrez Work Phone: [facility] 10-10-2021 13:52-0500 Diastolic blood pressure 49 mm[Hg] Dr. Martin Gutierrez Work Phone: [facility] Work Phone: 10-10-2021 13:52-0500 Heart rate 68 /min Dr. Martin Gutierrez Work Phone: [facility] Work Phone: 10-10-2021 13:52-0500 Respiratory rate 16 /min Dr. Martin Gutierrez Work Phone: [facility] Work Phone: 10-10-2021 13:52-0500 SaO2% (BldA) [Mass fraction] 97 % Dr. Martin Gutierrez Work Phone: [facility] Work Phone: 10-10-2021 13:52-0500 Systolic blood pressure 119 mm[Hg] Dr. Martin Gutierrez Work Phone: [facility] Work Phone: 10-10-2021 12:56-0500 Body mass index (BMI) [Ratio] 33 kg/m2 Dr. Martin Gutierrez Work Phone: [facility] 10-10-2021 12:56-0500 Body temperature 98 [degF] Dr. Martin Gutierrez Work Phone: [facility] 10-10-2021 12:56-0500 Body weight 92.[address] Martin Gutierrez Work Phone: [facility] 10-10-2021 11:56-0500 Body mass index (BMI) [Ratio] 33 kg/m2 Dr. Martin Gutierrez Work Phone: [facility] Work Phone: 10-10-2021 11:56-0500 Body temperature 98 [degF] Dr. Martin Gutierrez Work Phone: [facility] Work Phone: 10-10-2021 11:56-0500 Body weight 92.[address] Martin Gutierrez Work Phone: [facility] Work Phone: 09-17-2021 12:12-0500 Body mass index (BMI) [Ratio] 33.3 kg/m2 Dr. Martin Gutierrez Work Phone: [facility] Work Phone: 09-17-2021 12:12-0500 Body temperature 98 [degF] Dr. Martin Gutierrez Work Phone: [facility] Work Phone: 09-17-2021 12:12-0500 Body weight 93.[address] Martin Gutierrez Work Phone: [facility] Work Phone: 09-17-2021 12:12-0500 Diastolic blood pressure 74 mm[Hg] Dr. Martin Gutierrez Work Phone: [facility] Work Phone: 09-17-2021 12:12-0500 Heart rate 73 /min Dr. Martin Gutierrez Work Phone: [facility] Work Phone: 09-17-2021 12:12-0500 Respiratory rate 16 /min Dr. Martin Gutierrez Work Phone: [facility] Work Phone: 09-17-2021 12:12-0500 SaO2% (BldA) [Mass fraction] 98 % Dr. Martin Gutierrez Work Phone: [facility] Work Phone: 09-17-2021 12:12-0500 Systolic blood pressure 131 mm[Hg] Dr. Martin Gutierrez Work Phone: [facility] Work Phone: 01-15-2017 11:10-0400 Body height 170.18 cm Janene Vallecillo Work Phone: [facility] Work Phone: 01-15-2017 11:10-0400 Body mass index (BMI) [Ratio] 41.41 kg/m2 Janene Vallecillo Work Phone: [facility] Work Phone: 01-15-2017 11:10-0400 Body weight 119.93 kg Janene Vallecillo Work Phone: [facility] Work Phone: 01-15-2017 11:10-0400 Diastolic blood pressure 88 mm[Hg] Janene Vallecillo Work Phone: [facility] Work Phone: 01-15-2017 11:10-0400 Heart rate 64 /min Janene Vlalecillo Work Phone: [facility] Work Phone: 01-15-2017 11:10-0400 Respiratory rate 20 /min Janene Vallecillo Work Phone: [facility] Work Phone: 01-15-2017 11:10-0400 Systolic blood pressure 160 mm[Hg] Janene Vallecillo Work Phone: [facility] Work Phone: 01-15-2017 11:10-0400 Weight 119.93 kg Mena Holman RN [facility] Work Phone: 07-15-2016 08:19-0500 Body mass index (BMI) [Ratio] 37.59 kg/m2 Tali Parikh Work Phone: [facility] Work Phone: 07-15-2016 08:19-0500 Body surface area Derived from formula 2.19 m2 Tali Parikh Work Phone: [facility] Work Phone: 07-15-2016 08:19-0500 Body weight 108.86 kg Tali Parikh Work Phone: [facility] Work Phone: 07-15-2016 08:19-0500 Diastolic blood pressure 72 mm[Hg] Tali Parikh Work Phone: [facility] Work Phone: 07-15-2016 08:19-0500 Heart rate 56 /min Tali Parikh Work Phone: [facility] Work Phone: 07-15-2016 08:19-0500 Respiratory rate 18 /min Tali Parikh Work Phone: [facility] Work Phone: 07-15-2016 08:19-0500 Systolic blood pressure 132 mm[Hg] Tali Parikh Work Phone: [facility] Work Phone: 08-30-2015 [...] height 170.18 cm Tali Parikh Work Phone: [facility] Work Phone: 10-28-2013 [...] 11:15-0500 Body weight 129.28 kg Lisa Rosenbaum [facility] Work Phone: 10-28-2013 11:15-0500 Diastolic blood pressure 92 mm[Hg] Lisa Rosenbaum CMA [facility] Work Phone: Comment on above: Patient Position: Sitting; Cuff Location : Left Arm; Cuff Size: Standard 10-28-2013 11:15-0500 Heart rate 62 /min Lisa Hufflizettenitish [facility] Work Phone: Comment on above: Pattern: Regular 10-28-2013 11:15-0500 Respiratory rate 16 /min Lisa Rosenbaum [facility] Work Phone: Comment on above: Pattern: Unlabored 10-28-2013 11:15-0500 SaO2% (BldA) [Mass fraction] 97 % Lisa Rosenbaum [facility] Work Phone: Comment on above: Room air 10-28-2013 11:15-0500 Systolic blood pressure 152 mm[Hg] Lisa Rosenbaum [facility] Work [...] 10-06-2011 16:01-0500 Body weight 126.46 kg Na lEler LPN [facility]; [facility] [...] 15:03-0400 Body weight 126.46 kg Na Eller [employer] [facility] Work [...] Standard 04-25-2010 10:020400 Body height 170.18 cm Janya Edwards RN [facility] [...] 08:46-0400 Diastolic blood pressure 84 mm[Hg] Janay Edwadrs RN [facility] [...] 03-29-2010 11:47-0400 Respiratory rate 20 /min Janay Edwrads RN [facility] [...] 11:08-0400 Systolic blood pressure 120 mm[Hg] Janay Edwards RN [facility] Work Phone: Comment on above: Patient Position: Sitting; Cuff Location : Left Arm; Cuff Size: Large 12-12-2008 09:28-0400 Body height 0 cm Nerissa Beckhamon DO Work Phone: [...] (BldA) [Mass fraction] 94 % ANTHONY Bala [employer] [facility] Work Phone: Comment on above: Room air 11-05-2007 10:48-0400 Systolic blood pressure 124 mm[Hg] ANTHONY Mckenna [facility] [...] Type Care Provider Facility Start: 05-05-2025 ambulatory [facility] Facility:[facility] Start: 05-01-[address] Priya Ulloa MD -[facility] Start: 05-01-2025 End: 05-01-[address] Simon Ulloa MD -[facility] Work Phone: Start: 05-01-2025 End: 05-01-[address] Martin Gutierrez MD Work Phone: -[facility] Start: 01-03-2025 ambulatory [facility] Facility:[facility] Start: 12-22-2024 End: 12-22-[address] Martin Gutierrez MD -Laboratory Work Phone: Start: 12-22-2024 End: 12-22-2024 ambulatory [facility] Facility:[facility] Start: 11-14-2024 End: 11-14-[address] Armando Ga MD -Physical Therapy Work Phone: Start: 11-14-2024 End: 11-14-[address] Martin Gutierrez MD Work Phone: [facility] Work Phone: Start: 10-05-2024 End: 10-05-[address] Martni Gutierrez MD -Laboratory Work Phone: Start: 10-04-[address] Priya Ulloa MD -[facility] Start: 10-04-2024 End: 10-04-[address] Simon Ulloa MD -[facility] Work Phone: Start: 10-04-2024 End: 10-05-2024 ambulatory Martin Chi Matt Facility:[facility] Start: 09-28-2024 Non-patient / Non-visit Dr. Scott Mcneal MD -[facility] Work Phone: Start: 09-27-2024 Non-patient / Non-visit Dr. Scott Mcneal MD -[facility] Work Phone: Start: 09-26-2024 ambulatory Esperanza Myers Facility :[facility] Start: 09-26-2024 End: 09-28-2024 Evaluation and management of inpatient Dr. Scott Mcneal MD -[facility] 3 Work Phone: Start: 07-26-2024 End: 07-26-2024 ambulatory Martin Chi Matt Facility:[facility] Start: 07-26-2024 End: 07-26-2024 ambulatory Margi Christian [employer]ACHINE [employer] Facility:[facility] Start: 06-15-2024 End: 06-15-2024 ambulatory Martin Chi Matt Facility:[facility] Start: 06-13-2024 End: 06-13-2024 ambulatory Martin Chi Matt Facility:[facility] Start: 05-23-2024 End: 05-23-2024 ambulatory Martin Chi Matt Facility:[facility] Start: 05-20-2024 ambulatory Martin Chi Matt Facility:[facility] Start: 05-17-2024 ambulatory Martin Chi Matt Facility:[facility] Start: 05-11-2024 End: 05-11-2024 ambulatory Martin Chi Matt Facility:[facility] Start: 12-18-2023 End: 12-18-[address] Martin Gutierrez Work Phone: [facility] Work Phone: Start: 12-18-2023 End: 12-18-[address] [facility] Start: 09-30-[address] Martin alex Work Phone: [facility] Start: 09-30-2023 End: 09-30-[address] Martin Gutierrez Work Phone: [facility] Work Phone: Start: 08-26-2023 End: 08-26-2023 ambulatory [facility] Work Phone: Start: 08-26-2023 End: 08-26-2023 Patient encounter procedure [facility] 3rd Flr Start: 06-09-2023 End: 06-09-[address] Martin Gutierrez Work Phone: [facility] Work Phone: Start: 06-09-2023 End: 06-09-[address] Martin Gutierrez Work Phone: [facility] 3rd Flr Start: 05-14-2023 End: 05-14-[address] Martin Gutierrez Work Phone: [facility] Work Phone: Start: 05-14-2023 End: 05-14-[address] Martin Gutierrez Work Phone: [facility]-Pulmonary Services/Neurology Work Phone: Start: 05-05-2023 End: 05-05-[address] Martin Gutierrez Work Phone: [facility] Work Phone: Start: 05-05-2023 End: 05-05-[address] Martin Gutierrez Work Phone: [facility]-Outpatient Breast Imaging Work Phone: Start: 04-15-[address] Martin alex Work Phone: [facility] Start: 04-15-2023 End: 04-15-[address] Martin Gutierrez Work Phone: [facility] Work Phone: Start: 12-11-2022 End: 12-11-[address] Martin Gutierrez Work Phone: [facility] Work Phone: Start: 12-11-2022 End: 12-11-[address] Martin Gutierrez Work Phone: [facility]-Laboratory Start: 11-27-2022 End: 11-27-[address] [facility] Start: 10-20-2022 End: 10-20-[address] Martin Gutierrez [facility] Start: 09-02-[address] Martin alex Work Phone: [facility] Start: 09-02-2022 End: 09-02-[address] Martin Gutierrez Work Phone: [facility] Start: 06-11-2022 End: 06-11-[address] Martin Gutierrez Work Phone: [facility] Work Phone: Start: 06-11-2022 End: 06-11-2022 Patient encounter procedure Dr. Martin Gutierrez Work Phone: [facility], Phy Office 3rd Flr Start: 06-02-2022 End: 06-02-[address] [facility] Start: 04-23-2022 End: 04-23-[address] Martin Gutierrez Work Phone: [facility] Work Phone: Start: 04-23-2022 End: 04-23-[address] Martin Gutierrez [facility] Start: 04-15-2022 End: 04-15-[address] Martin Gutierrez Work Phone: [facility] Work Phone: Start: 04-15-2022 End: 04-15-[address] Martin Gutierrez Work Phone: [facility] Start: 02-19-2022 End: 02-19-[address] Martin Gutierrez Work Phone: [facility] Start: 02-19-[address] Martin alex Work Phone: [facility] Start: 12-17-2021 End: 12-17-[address] [facility]rez [facility] Start: 12-02-2021 End: 12-02-[address] Martin Gutierrez [facility] Start: 11-06-[address] Martin alex Work Phone: [facility] Start: 11-06-2021 End: 11-06-[address] Martin Gutierrez Work Phone: [facility] Start: 09-17-2021 End: 09-17-[address] Martin Gutierrez Work Phone: [facility] Start: 08-20-2021 Non-patient / Non-visit Dr. Martin Gutierrez Work Phone: [facility] Start: 08-20-[address] Martin Gutierrez Work Phone: [facility] Start: 08-13-2017 End: 08-13-2017 Ambulatory BRANDO GUTIERREZ Facility:[facility] Start: 07-14-2017 End: 07-14-2017 Ambulatory NELY CALZADA Facility:[facility] Start: 06-25-2017 End: 06-25-2017 Patient encounter procedure UNKNOWN PROVIDER [facility] Start: 06-25-2017 End: 06-28-2017 Evaluation and management of inpatient CELINE CORREA Facility:[facility] Start: 08-30-2015 End: 08-30-2015 Office outpatient visit [...] Parikh Work Phone: Start: 07-15-2016 End: 07-15-2016 ACADEMIC ADVISEMENT DIRECTOR Anaya Everett NP Work Phone: Start: 07-15-2016 End: 07-15-2016 Follow Up Appt 6 months Anaya Everett HONING MACHINE OPERATOR SEMIAUTOMATIC Work Phone: Start: 07-15-2016 End: 07-23-2016 Nuclear stress test -Julio C Everett HONING MACHINE OPERATOR SEMIAUTOMATIC Work Phone: Start: 07-15-2016 End: 07-15-2016 ACADEMIC ADVISEMENT DIRECTOR Anaya Everett HONING MACHINE OPERATOR SEMIAUTOMATIC Work Phone: Start: 07-15-2016 End: 07-15-2016 Follow Up Appt 6 months Anaya Everett HONING MACHINE OPERATOR SEMIAUTOMATIC Work Phone: Start: 07-15-2016 End: 07-23-2016 Nuclear stress test -Julio C Everett HONING MACHINE OPERATOR SEMIAUTOMATIC Work Phone: Start: 12-11-2015 End: 12-11-2015 Follow Up Appt 6 months Tracy De La Cruz Start: 12-11-2015 End: 12-11-2015 BCEKI Samuel MD Start: 12-11-2015 End: 07-14-2017 Chest x-ray Efrain Samuel MD Start: 12-11-2015 End: 12-11-2015 Follow Up Appt 6 months Tracy De La Cruz Start: 12-11-2015 End: 12-11-2015 BECKI Samuel MD Start: 08-30-2015 End: 08-30-2015 Ecg routine ecg w/least 12 lds w/i&r [MEASUREMENTS ANALYSIS] Date of Test: 08/30/2015 12:51:52; Heart Rate: 58; DC Interval: 182; QRS: 104; QT Interval: 428; Corrected QT Interval (QTc): 425; P Wave [place]: 54; QRS Wave [place]: 48; T Wave [place]: 48; Blood Pressure: 162/80 [ECG DIAGNOSTIC STATEMENTS] Date of Test: 08/30/2015 12:51:52; Summary: Sinus Bradycardia WITHIN NORMAL LIMITS Nerissa Rodriguez DO Work Phone: Comment on above: sinus cristian - no acu te chg h/o cad on BB Start: 02-06-2015 End: 02-06-2015 ACADEMIC ADVISEMENT DIRECTOR Eliane Rodrigez PA-C Work Phone: Start: 02-06-2015 [...] PA-C Work Phone: Start: 02-06-2015 End: 02-06-2015 ACADEMIC ADVISEMENT DIRECTOR Eliane Rodrigez PA-C Work Phone: Start: 02-06-2015 [...] PA-C Work Phone: Start: 06-08-2013 End: 06-08-2013 ACADEMIC ADVISEMENT DIRECTOR Eliane Rodrigez PA-C Work Phone: Start: 06-08-2013 End: 06-08-2013 Follow Up Appt 6 months Eliane Rodrigez PA-C Work Phone: Start: 06-08-2013 End: 08-09-2014 Lipid 1996 panel - Serum or Plasma Eliane Rodrigez PA-C Work Phone: Start: 06-08-2013 End: 06-08-2013 ACADEMIC ADVISEMENT DIRECTOR Eliane Rodrigez PA-C Work Phone: Start: 06-08-2013 End: 06-08-2013 Follow Up Appt 6 months Eliane Rodrigez PA-C Work Phone: Start: 06-08-2013 End: 08-09-2014 Hepatic function 2000 panel - Serum or Plasma Eliane Rodirgez PA-C Work Phone: Start: 06-08-2013 End: 08-09-2014 [...] Martin Gutierrez Work Phone: Comment on above: LVQ-MPY-Qlg-Distal R CA w/ 3.5 x 30 mm, 3.0 x 12 mm, 3.5 x 24 mm [place] Stents 12/20/2008 Investigation of transfusion reaction Dr. Martin Gutierrez Work Phone: Microbial culture, routine D kimberley Gutierrez Work Phone: Urine culture Dr. Martin Gutierrez Work Phone: Urine culture Dr. Martin Gutierrez Work Phone: Plan of Treatment Date Care Activity Detail Author Start: 05-01-2025 [facility] Start: 09-28-2024 Patient discharge [facility] Start: 09-26-2024 Contact precautions [facility] Start: 09-26-2024 Respiratory secretion precautions [facility] Start: 09-26-2024 Following clinical pathway protocol [facility] Start: 09-26-2024 Assessment of risk of venous thromboembolism [facility] Start: 09-26-2024 Fall prevention [facility] Start: 09-26-2024 Incentive spirometry [facility] Start: 09-26-2024 Inhalation therapy procedure [facility] Start: 09-26-2024 Insertion of catheter into peripheral vein [facility] Start: 09-26-2024 Introduction of urinary catheter [facility] Start: 09-26-2024 Measuring intake and output [facility] Start: 09-26-2024 Oxygen therapy [facility] Start: 09-26-2024 Providing care according to standard [facility] Start: 09-26-2024 Provision of activity privileges [facility] Start: 09-26-2024 Referral to occupational therapist [facility] Start: 09-26-2024 Referral to service [facility] Start: 09-26-2024 Tobacco use cessation education [facility] Start: 09-26-2024 [facility] Start: 09-26-2024 Admission procedure [facility] Start: 11-29-2020 Following clinical pathway protocol [facility] Start: 07-27-2017 End: 07-27-2017 Appointment Appointment [facility] Work Phone: Start: 07-01-2017 End: 07-01-2017 Echocardiography Echocardiogram (complete) [facility] Work Phone: Start: 07-01-2017 End: 07-01-2017 Echocardiography Echocardiogram (complete) [facility] Work Phone: Start: 01-15-2017 End: 01-15-2017 Carotid duplex Carotid duplex [facility] Work Phone: Start: 01-15-2017 End: 07-01-2017 Follow Up Appt 6 months Follow Up Appt 6 months [facility] Work Phone: Start: 01-15-2017 End: 07-01-2017 MMM MMM [facility] Work Phone: Start: 01-15-2017 End: 01-15-2017 Patient encounter procedure Appointment [facility] Work Phone: Start: 01-15-2017 End: 01-15-2017 Carotid duplex Carotid duplex [facility] Work Phone: Start: 01-15-2017 End: 07-01-2017 Follow Up Appt 6 months Follow Up Appt 6 months [facility] Work Phone: Start: 01-15-2017 End: 07-01-2017 MMM MMM [facility] Work Phone: Start: 08-22-2016 End: 09-02-2016 *PTH (Parathyroid Hormone) *PTH (Parathyroid Hormone) [facility] Work Phone: Start: 08-22-2016 End: 09-04-2016 1,25-Dihydroxyvitamin D [Mass/volume] in Serum or Plasma *[id number] Vitamin D, 1, 25- DiHydroxy [facility] Work Phone: Start: 08-22-2016 End: 08-22-2016 Alkaline phosphatase (ALP) *ALK Alkaline Phosphatase, Serum [facility] Work Phone: Start: 08-22-2016 End: 09-02-2016 Calcium *Calcium, Total [facility] Work Phone: Start: 08-22-2016 End: 08-22-2016 Ct upper extremity w/o contrast material CT Upper Extremity [facility] Work Phone: Start: 08-22-2016 End: 09-02-2016 *PTH (Parathyroid Hormone) *PTH (Parathyroid Hormone) [facility] Work Phone: Start: 08-22-2016 End: 09-04-2016 1,25-Dihydroxyvitamin D [Mass/volume] in Serum or Plasma *[id number] Vitamin D, 1, 25- DiHydroxy [facility] Work Phone: Start: 08-22-2016 End: 08-22-2016 Alkaline phosphatase [Enzymatic activity/volume] in Serum or Plasma *ALK Alkaline Phosphatase, Serum [facility] Work Phone: Start: 08-22-2016 End: 09-02-2016 Calcium [Mass/volume] in Serum or Plasma *Calcium, Total [facility] Work Phone: Start: 08-22-2016 End: 08-22-2016 Ct upper extremity w/o contrast material CT Upper Extremity [facility] Work Phone: Start: 08-21-2016 End: 08-21-2016 Mri any jt upper extremity w/o contrast matrl MRI Joint Upper Extremity [facility] Work Phone: Start: 08-21-2016 End: 08-21-2016 Radex elbow complete minimum 3 views X-Ray, Elbow [facility] Work Phone: Start: 08-21-2016 End: 08-21-2016 Mri any jt upper extremity w/o contrast matrl MRI Joint Upper Extremity [facility] Work Phone: Start: 08-21-2016 End: 08-21-2016 Radex elbow complete minimum 3 views X-Ray, Elbow [facility] Work Phone: Start: 07-15-2016 End: 07-15-2016 [facility] Work Phone: Start: 07-15-2016 End: 07-15-2016 Follow Up Appt 6 months Follow Up Appt 6 months [facility] Work Phone: Start: 07-15-2016 End: 07-15-2016 Nuclear stress test -Lexiscan Nuclear stress test -Lexiscan [facility] Work Phone: Start: 07-15-2016 End: 07-15-2016 [facility] Work Phone: Start: 07-15-2016 End: 07-15-2016 Follow Up Appt 6 months Follow Up Appt 6 months [facility] Work Phone: Start: 07-15-2016 End: 07-15-2016 Nuclear stress test -Lexiscan Nuclear stress test -Lexiscan [facility] Work Phone: Start: 01-24-2016 Hemoglobin glycosylated a1c Hemoglobin Glyclated (HGB A1C) (16576) [facility] Work Phone: Start: 12-11-2015 End: 12-11-2015 Chest x-ray X-Ray, Chest, PA & Lateral [facility] Work Phone: Start: 12-11-2015 End: 12-11-2015 Follow Up Appt 6 months Follow Up Appt 6 months [facility] Work Phone: Start: 12-11-2015 End: 12-11-2015 MMM MMM [facility] Work Phone: Start: 12-11-2015 End: 07-14-2017 Chest x-ray X-Ray, Chest, PA & Lateral [facility] Work Phone: Start: 12-11-2015 End: 12-11-2015 Follow Up Appt 6 months Follow Up Appt 6 months [facility] Work Phone: Start: 12-11-2015 End: 12-11-2015 [facility] Work [facility]: Start: 09-26-2015 Hemoglobin glycosylated a1c Hemoglobin Glyclated (HGB A1C) (27577) [facility] Work Phone: Start: 08-30-2015 Procedure Education Eprescribed prescriptions (G8553) [facility] Work Phone: Start: 08-30-2015 Provider Instructions for Treatment [facility] Work Phone: Start: 08-30-2015 Hemoglobin glycosylated a1c Hemoglobin Glyclated (HGB A1C) (93246) [facility] Work Phone: Start: 08-30-2015 Alpha-fetoprotein serum [id number] (44911) [facility]; [facility] Work Phone: Start: 08-30-2015 Thromboplastin time partial plasma/whole blood PTT (Activated Partial Thromboplastin Time) (17483) [facility]; [facility] Work Phone: Start: 08-30-2015 Prothrombin time PT (Prothrobim Time) (29793) [facility]; [facility] Work Phone: Start: 08-30-2015 25 hydroxy includes fractions if performed CALCIFIDIOL (21737) VIT D 25 [facility] Work Phone: Start: 08-30-2015 Cyanocobalamin vitamin b-12 VITAMIN B-12 (CYANOCOBALAMIN) (20548) [facility]; [facility] Work Phone: Start: 08-30-2015 Urnls dip stick/tablet reagent auto microscopy URINALYSIS, W/ MICRO (09147) [facility]; [facility] Work Phone: Start: 08-30-2015 Urine albumin quantitative MICROALBUMIN: CREATININE RATIO (30546) AND (24675) [facility]; [facility] Work Phone: Start: 08-30-2015 Comprehensive metabolic panel METABOLIC PANEL, COMPREHENSIVE (30852) [facility]; [facility] Work Phone: Start: 08-30-2015 Assay of thyroid stimulating hormone tsh TSH (94395) [facility] Work Phone: Start: 08-30-2015 Lipid panel LIPID PANEL (91227) [facility]; [facility] Work Phone: Start: 08-30-2015 Blood count complete auto&auto difrntl wbc CBC W/AUTO DIFF WBC (90597) [facility]; [facility] Work Phone: Start: 07-26-2015 Provider Instructions for Treatment [facility] Work Phone: Start: 07-26-2015 Cytp cerv/vag auto thin layer prep mnl screen Thin prep Pap (00083) (no STD testing) [facility]; [facility] Work Phone: Start: 05-29-2015 Hemoglobin glycosylated a1c Hemoglobin Glyclated (HGB A1C) (69222) [facility]; [facility] Work Phone: Start: 02-06-2015 End: 02-06-2015 *Hepatic Function Panel *Hepatic Function Panel [facility] Work Phone: Start: 02-06-2015 End: 02-06-2015 [facility] Work Phone: Start: 02-06-2015 End: 02-06-2015 Ecg routine ecg w/least 12 lds w/i&r EKG (In office) [facility] Work Phone: Start: 02-06-2015 End: 02-06-2015 Follow Up Appt 6 months Follow Up Appt 6 months [facility] Work Phone: Start: 02-06-2015 End: 02-06-2015 Lipid panel [AGGREGATE] *Lipid Profile CC PCP [facility] Work Phone: Start: 02-06-2015 End: 02-06-2015 [facility] Work Phone: Start: 02-06-2015 End: 02-06-2015 Ecg routine ecg w/least 12 lds w/i&r EKG (In office) [facility] Work Phone: Start: 02-06-2015 End: 02-06-2015 Follow Up Appt 6 months Follow Up Appt 6 months [facility] Work Phone: Start: 02-06-2015 End: 07-14-2017 Hepatic function 2000 panel - Serum or Plasma *Hepatic Function Panel [facility] Work Phone: Start: 02-06-2015 End: 07-14-2017 Lipid 1996 panel - Serum or Plasma *Lipid Profile CC PCP [facility] Work Phone: Start: 01-31-2015 Cyanocobalamin vitamin b-12 VITAMIN B-12 (CYANOCOBALAMIN) (77003) [facility]; [facility] Work Phone: Start: 01-29-2015 Procedure Education Eprescribed prescriptions (G8553) [facility]; [facility] Work Phone: Start: 01-29-2015 Provider Instructions for Treatment [facility] Work Phone: Start: 01-29-2015 Hemoglobin glycosylated a1c Hemoglobin Glyclated (HGB A1C) (89509) [facility]; [facility] Work Phone: Start: 01-29-2015 Cyanocobalamin vitamin b-12 VITAMIN B12 AND FOLATES (30137) [facility]; [facility] Work Phone: Start: 01-29-2015 Thromboplastin time partial plasma/whole blood PTT (Activated Partial Thromboplastin Time) (47239) [facility]; [facility] Work Phone: Start: 01-29-2015 Prothrombin time PT (Prothrobim Time) (57613) [facility]; [facility] Work Phone: Start: 01-29-2015 Alpha-fetoprotein serum [id number] (74887) [facility]; [facility] Work Phone: Start: 01-29-2015 25 hydroxy includes fractions if performed CALCIFIDIOL (90575) VIT D 25 [facility]; [facility] Work Phone: Start: 01-29-2015 Assay of thyroid stimulating hormone tsh TSH (31758) [facility]; [facility] Work Phone: Start: 01-29-2015 Blood count complete auto&auto difrntl wbc CBC W/AUTO DIFF WBC (70810) [facility]; [facility] Work Phone: Start: 01-29-2015 Lipid panel LIPID PANEL (67264) [facility]; [facility] Work Phone: Start: 01-29-2015 Comprehensive metabolic panel METABOLIC PANEL, COMPREHENSIVE (49022) [facility]; [facility] Work Phone: Start: 10-11-2014 Provider Instructions for Treatment [facility] Work Phone: Start: 10-11-2014 Hepatic function panel HEPATIC FUNCTION PANEL (02530) [facility]; [facility] Work Phone: Comment on above: do in 2 months Start: 10-11-2014 Lipid panel LIPID PANEL (83234) [facility]; [facility] Work Phone: Comment on above: do in 2 months Start: 10-02-2014 Provider Instructions for Treatment [facility] Work Phone: Start: 08-30-2014 Provider Instructions for Treatment [facility]; [facility] Work Phone: Start: 05-24-2014 End: 02-06-2015 *Hepatic Function Panel *Hepatic Function Panel [facility] Work Phone: Start: 05-24-2014 End: 02-06-2015 Lipid panel [AGGREGATE] *Lipid Profile CC PCP [facility] Work Phone: Start: 05-24-2014 End: 02-06-2015 Hepatic function 2000 panel - Serum or Plasma *Hepatic Function Panel [facility] Work Phone: Start: 05-24-2014 End: 02-06-2015 Lipid 1996 panel - Serum or Plasma *Lipid Profile CC PCP [facility] Work Phone: Start: 03-02-2014 End: 03-02-2014 *Hepatic Function Panel *Hepatic Function Panel [facility] Work Phone: Start: 03-02-2014 End: 08-09-2014 Follow Up Appt 6 months Follow Up Appt 6 months [facility] Work Phone: Start: 03-02-2014 End: 03-02-2014 Lipid panel [AGGREGATE] *Lipid Profile CC PCP [facility] Work Phone: Start: 03-02-2014 End: 08-09-2014 MMM MM [facility] Work Phone: Start: 03-02-2014 End: 08-09-2014 Follow Up Appt 6 months Follow Up Appt 6 months [facility] Work Phone: Start: 03-02-2014 End: 03-02-2014 Hepatic function 2000 panel - Serum or Plasma *Hepatic Function Panel [facility] Work Phone: Start: 03-02-2014 End: 03-02-2014 Lipid 1996 panel - Serum or Plasma *Lipid Profile CC PCP [facility] Work Phone: Start: 03-02-2014 End: 08-09-2014 MMM MMM [facility] Work Phone: Start: 10-28-2013 Patient Education Cough Medicines, Nonprescription: cough [facility]; [facility] Work Phone: Start: 10-28-2013 Provider Instructions for Treatment [facility]; [facility] Work Phone: Start: 06-08-2013 End: 08-09-2014 *Hepatic Function Panel *Hepatic Function Panel [facility] Work Phone: Start: 06-08-2013 End: 06-08-2013 ACADEMIC ADVISEMENT DIRECTOR ACADEMIC ADVISEMENT DIRECTOR [facility] Work Phone: Start: 06-08-2013 End: 06-08-2013 Follow Up Appt 6 months Follow Up Appt 6 months [facility] Work Phone: Start: 06-08-2013 End: 08-09-2014 Lipid panel [AGGREGATE] *Lipid Profile CC PCP [facility] Work Phone: Start: 06-08-2013 End: 06-08-2013 ACADEMIC ADVISEMENT DIRECTOR ACADEMIC ADVISEMENT DIRECTOR [facility] Work Phone: Start: 06-08-2013 End: 06-08-2013 Follow Up Appt 6 months Follow Up Appt 6 months [facility] Work Phone: Start: 06-08-2013 End: 08-09-2014 Hepatic function 2000 panel - Serum or Plasma *Hepatic Function Panel [facility] Work Phone: Start: 06-08-2013 End: 08-09-2014 Lipid 1996 panel - Serum or Plasma *Lipid Profile CC PCP [facility] Work Phone: Start: 12-09-2012 End: 06-08-2013 *Hepatic Function Panel *Hepatic Function Panel [facility] Work Phone: Start: 12-09-2012 End: 12-09-2012 Follow Up Appt 6 months Follow Up Appt 6 months [facility] Work Phone: Start: 12-09-2012 End: 06-08-2013 Lipid panel [AGGREGATE] *Lipid Profile [facility] Work Phone: Start: 12-09-2012 End: 12-09-2012 MMM MMM [facility] Work Phone: Start: 12-09-2012 End: 12-09-2012 Nuclear stress test -adenosine Nuclear stress test -adenosine [facility] Work Phone: Start: 12-09-2012 End: 12-09-2012 Follow Up Appt 6 months Follow Up Appt 6 months [facility] Work Phone: Start: 12-09-2012 End: 06-08-2013 Hepatic function 2000 panel - Serum or Plasma *Hepatic Function Panel [facility] Work Phone: Start: 12-09-2012 End: 06-08-2013 Lipid 1996 panel - Serum or Plasma *Lipid Profile [facility] Work Phone: Start: 12-09-2012 End: 12-09-2012 MMM MMM [facility] Work Phone: Start: 12-09-2012 End: 12-09-2012 Nuclear stress test -adenosine Nuclear stress test -adenosine [facility] Work Phone: Start: 07-28-2012 Patient Education Nutrition for Diabetics: Dining Out *: diet [facility]; [facility] Work Phone: Start: 07-28-2012 Provider Instructions for Treatment [facility]; [facility] Work Phone: Start: 07-01-2012 Provider Instructions for Treatment Reviewed Audiovisual Equipment Operator Letter [facility] Work Phone: Start: 05-05-2012 End: 05-05-2012 Follow Up Appt 6 months Follow Up Appt 6 months [facility] Work Phone: Start: 05-05-2012 End: 05-05-2012 Follow Up Appt 6 months Follow Up Appt 6 months [facility] Work Phone: Start: 04-29-2012 End: 12-15-2012 *Hepatic Function Panel *Hepatic Function Panel [facility] Work Phone: Start: 04-29-2012 End: 12-15-2012 Lipid panel [AGGREGATE] *Lipid Profile [facility] Work Phone: Start: 04-29-2012 End: 12-15-2012 Hepatic function 2000 panel - Serum or Plasma *Hepatic Function Panel [facility] Work Phone: Start: 04-29-2012 End: 12-15-2012 Lipid 1996 panel - Serum or Plasma *Lipid Profile [facility] Work Phone: Start: 03-25-2012 Patient Education Hypothyroidism: Brief Version *: hypothyroidism [facility] Work Phone: Start: 03-25-2012 Provider Instructions for Treatment [facility] Work Phone: Start: 03-25-2012 Assay of thyroid stimulating hormone tsh TSH (97169) [facility] Work Phone: Start: 03-25-2012 Urine albumin quantitative MICROALBUMIN: CREATININE RATIO (21112) AND (93178) [facility] Work Phone: Start: 03-25-2012 Comprehensive metabolic panel METABOLIC PANEL, COMPREHENSIVE (72363) [facility] Work Phone: Start: 03-25-2012 Lipid panel LIPID PANEL (68924) [facility] Work Phone: Start: 03-25-2012 Blood count manual cell count each CBC WITH MANUAL DIFF (84024) [facility] Work Phone: Start: 01-19-2012 Assay of thyroid stimulating hormone tsh TSH (36548) [facility] Work Phone: Start: 11-21-2011 Provider Instructions for Treatment Follow up if no improvement or if symptoms worsen [facility] Work Phone: Start: 11-21-2011 25 hydroxy includes fractions if performed CALCIFEDIOL (68157) [facility] Work Phone: Start: 11-19-2011 Provider Instructions for Treatment Reviewed Lab [facility] Work Phone: Start: 11-19-2011 Extractable nuclear antigen antibody any method ANTI-CLINTON-1 [id number] (98665) [facility] Work Phone: Start: 11-19-2011 25 hydroxy includes fractions if performed CALCIFIDIOL (79129) VIT D 25 [facility] Work Phone: Start: 11-19-2011 Cyanocobalamin vitamin b-12 VITAMIN B-12 (CYANOCOBALAMIN) (94652) [facility] Work Phone: Start: 11-10-2011 Glucose quantitative blood xcpt reagent strip Glucose, PP/2 Hour (05483) [facility] Work Phone: Start: 11-07-2011 Provider Instructions for Treatment [facility] Work Phone: Start: 11-07-2011 Cyclic citrullinated peptide antibody CCP ANTIBODY (23258) [facility] Work Phone: Start: 11-07-2011 Sedimentation rate rbc non-automated SED RATE ERYTHROCYTE (85503) [facility] Work Phone: Start: 11-07-2011 Antinuclear antibodies rj RJ (ANTINUCLEAR ANTIBODY) (67803) [facility] Work Phone: Start: 11-07-2011 Assay of thyroid stimulating hormone tsh TSH (23671) [facility] Work Phone: Start: 11-07-2011 Blood count manual cell count each CBC WITH MANUAL DIFF (57806) [facility] Work Phone: Start: 11-07-2011 C-reactive protein C-REACTIVE PROTEIN (72267) [facility] Work Phone: Start: 11-07-2011 Rheumatoid factor quantitative RHEUMATOID FACTOR-QUANT (38288) [facility] Work Phone: Start: 11-07-2011 Comprehensive metabolic panel METABOLIC PANEL, COMPREHENSIVE (33034) [facility] Work Phone: Start: 11-04-2011 End: 11-04-2011 Follow Up Appt 6 months Follow Up Appt 6 months [facility] Work Phone: Start: 11-04-2011 End: 11-04-2011 Follow Up Appt 6 months Follow Up Appt 6 months [facility] Work Phone: Start: 10-06-2011 Provider Instructions for Treatment Follow up in 2 weeks [facility] Work Phone: Start: 09-17-2010 Glucose quantitative blood xcpt reagent strip Glucose, PP/2 Hour (57624) [facility] Work Phone: Start: 09-16-2010 Provider Instructions for Treatment [facility] Work Phone: Start: 09-16-2010 Hepatic function panel HEPATIC FUNCTION PANEL (75470) [facility] Work Phone: Start: 09-09-2010 Renal function panel Renal function Panel (63202) [facility] Work Phone: Start: 09-09-2010 Culture bacterial quanttative colony count urine URINE BRAD CULTURE-BUDDY COL COUNT (84488) [facility] Work Phone: Start: 09-09-2010 Patient Education Water in diet, brief version [facility] Work Phone: Start: 09-09-2010 Provider Instructions for Treatment FOLLOW UP IN 1 WEEK [facility] Work Phone: Start: 05-20-2010 Blood count manual cell count each CBC with manual diff (80701) [facility] Work Phone: Comment on above: please do in ER Start: 05-20-2010 Fibrin dgradj products d-dimer quantitative D-Dimer (69888) [facility]; [facility] Work Phone: Comment on above: stat please do in ER Start: 05-20-2010 Provider Instructions for Treatment [facility] Work Phone: Start: 04-25-2010 Provider Instructions for Treatment [facility] Work Phone: Start: 04-25-2010 Cytp cerv/vag auto thin layer prep mnl screen Thin prep Pap (30988) [facility] Work Phone: Start: 04-15-2010 Provider Instructions for Treatment Continue Current Prescription(s) [facility] Work Phone: Start: 04-09-2010 Provider Instructions for Treatment FOLLOW UP TOMORROW [facility] Work Phone: Start: 04-08-2010 Provider Instructions for Treatment [facility] Work Phone: Start: 03-18-2010 Lipid panel LIPID PANEL (59407) [facility] Work Phone: Start: 03-18-2010 Assay of thyroid stimulating hormone tsh TSH (16630) [facility]; [facility] Work Phone: Start: 03-18-2010 Urnls dip stick/tablet reagent auto microscopy URINALYSIS, W/ MICRO (47596) [facility] Work Phone: Start: 03-18-2010 Urine albumin quantitative MICROALBUMIN: CREATININE RATIO (07183) AND (74642) [facility] Work Phone: Start: 03-18-2010 Comprehensive metabolic panel METABOLIC PANEL, COMPREHENSIVE (00678) [facility]; [facility] Work Phone: Start: 03-18-2010 Blood count manual cell count each CBC WITH MANUAL DIFF (16224) [facility]; [facility] Work Phone: Start: 03-18-2010 Provider Instructions for Treatment [facility] Work Phone: Start: 04-26-2009 Provider Instructions for Treatment [facility] Work Phone: Start: 04-26-2009 Urnls dip stick/tablet rgnt auto w/o microscopy URINALYSIS W/O MICRO (73801) [facility]; [facility] Work Phone: Start: 04-26-2009 Assay of thyroid stimulating hormone tsh TSH (63050) [facility]; [facility] Work Phone: Start: 04-26-2009 Urine albumin quantitative MICROALBUMIN: CREATININE RATIO (69141) AND (89228) [facility]; [facility] Work Phone: Start: 04-26-2009 Comprehensive metabolic panel METABOLIC PANEL, COMPREHENSIVE (43153) [facility]; [facility] Work Phone: Start: 04-26-2009 Blood count manual cell count each CBC WITH MANUAL DIFF (15950) [facility] Work Phone: Start: 04-26-2009 Hepatic function panel HEPATIC FUNCTION PANEL (64423) [facility]; [facility] Work Phone: Start: 04-26-2009 Lipid panel LIPID PANEL (89257) [facility]; [facility] Work Phone: Start: 04-26-2009 Lipoprotein blood buddy numbers & subclasses LIPOPROTEIN, BLD, BY NMR (28091) [facility] Work Phone: Start: 2009 Provider Instructions for Treatment [facility] Work Phone: Start: 03-26-2009 Provider Instructions for Treatment [facility] Work Phone: Start: 12-12-2008 Provider Instructions for Treatment [facility] Work Phone: Start: 12-12-2008 Basic metabolic panel calcium total Metabolic Panel, Basic (61494) [facility]; [facility] Work Phone: Comment on above: To be drawn December 21 Start: 11-22-2008 Provider Instructions for Treatment [facility] Work Phone: Start: 09-04-2008 Provider Instructions for Treatment [facility] Work Phone: Start: 11-05-2007 Fibrin dgradj products d-dimer quantitative D-Dimer (91357) [facility]; [facility] Work Phone: Start: 11-05-2007 Blood count complete auto&auto difrntl wbc CBC, Platelets & Auto Diff (02347) [facility]; [facility] Work Phone: CBC W Auto Different ial panel - Blood [facility] Work Phone: CBC W Auto Different ial panel - Blood [facility] CBC W Auto Different ial panel - Blood [facility] CBC W Auto Different ial panel - Blood [facility] CBC W Auto Different ial panel - Blood [facility] CT Chest [facility] Work Phone: CT Chest [facility] CT Chest [facility] Ferritin [Mass/volum e] in Serum or Plasma [facility] Work Phone: Ferritin [Mass/volum e] in Serum or Plasma [facility] Ferritin [Mass/volum e] in Serum or Plasma [facility] Ferritin [Mass/volum e] in Serum or Plasma [facility] Ferritin [Mass/volum e] in Serum or Plasma [facility] Iron and Iron bindin g capacity panel - Serum or Plasma [facility] Work Phone: Iron and Iron bindin g capacity panel - Serum or Plasma [facility] Iron and Iron bindin g capacity panel - Serum or Plasma [facility] Iron and Iron bindin g capacity panel - Serum or Plasma [facility] Iron and Iron bindin g capacity panel - Serum or Plasma [facility] MG Breast - bilatera l Screening [facility] Work Phone: MG Breast - bilatera l Screening [facility] Patient referral [facility] Work Phone: Reticulocyte count [facility] Reticulocyte count [facility] Reticulocyte count [facility] Vitamin B12 measurement [facility] Work Phone: Vitamin B12 measurement [facility] Work [...] Immunizations Immunization Date Immunization Notes Care Provider [facility] 05-30-2020 influenza, injectabl e, quadrivalent, preservative free Dr. Martin Gutierrez Work Phone: [facility] 05-30-2020 influenza, seasonal, injectable Dr. Martin Gutierrez Work Phone: [facility] 04-26-2009 influenza, seasonal, injectable Nerissa Ismael DO Work Phone: [facility] Work Phone: Comment on above: Given in Right delto idLot # [id number] 12/31CDH 04-26-2009 tetanus toxoid, reduced diphtheria toxoid, and acellular pertussis vaccine, adsorbed Nerissa Ismael DO Work Phone: [facility] Work Phone: Comment on above: given in Left Deltoi dLot #[id number] 07-28-11DH 06-09-2008 influenza, seasonal, injectable Nerissa Ismael DO Work Phone: [facility] Work Phone: Payers Date Payer Category Payer Self-pay [id number] 2017 Unknown [id number] 2015 Unknown [id number] 1960 Unknown [id number] 2.16.8 [id number] Medicare MEDICARE PART A B [id number] Unknown Unknown [id number] Unknown [id number] 2.16.8 40.1.683299.3.579.2.462 Unknown [id number] 2.16.8 40.1.118250.3.579.2.462 Unknown [id number] 2.16.8 40.1.389358.3.579.2.462 Unknown [id number] 2.16.8 40.1.276648.3.579.2.462 Unknown [id number] 2.16.8 40.1.146354.3.579.2.462 Unknown [id number] 2.16.8 40.1.617973.3.579.2.462 Unknown [id number] 2.16.8 40.1.935561.3.579.2.462 Unknown [id number] 2.16.8 40.1.307247.3.579.2.462 Unknown [id number] 2.16.8 40.1.178132.3.579.2.462 Unknown [id number] 2.16.8 40.1.157023.3.579.2.462 Unknown [id number] 2.16.8 40.1.881254.3.579.2.462 Unknown [id number] 2.16.8 40.1.532555.3.579.2.462 Unknown [id number] 2.16.8 40.1.706638.3.579.2.462 Unknown [id number] 2.16.8 40.1.743070.3.579.2.462 Unknown [id number] 2.16.8 40.1.798024.3.579.2.462 Unknown [id number] 2.16.8 40.1.927393.3.579.2.462 Unknown [id number] 2.16.8 40.1.077568.3.579.2.462 Unknown [id number] 2.16.8 40.1.861391.3.579.2.462 Unknown [id number] 2.16.8 40.1.772822.3.579.2.462 Unknown [id number] 2.16.8 40.1.507782.3.579.2.462 Social History Date Type Detail Facility Caffeine Use Caffeine Use [facility] Work Phone: Comment on above: 1-3 cups qd Inactive , Lives with spouse 1/2 pack day >30 yrs 11/19/11 Start: 07-26-2021 End: 10-20-2022 Tobacco smoking status AZIS Unknown if ever smoked [facility] Start: 01-02-2021 None [facility] Start: 01-02-2021 Homeless [facility] Start: 11-28-2020 Cigarettes [facility] Start: 1960 Sex Assigned At Female [facility] Start: 09-26-2024 End: 09-27-2024 Tobacco smoking status NHIS Smokes tobacco daily (finding) [facility] Goals Date Patient Goal Desired Activity /State Functional Status Date Assessment Result Facility 09-28-2024 Functional status Chair [facility] Work Phone: Mental Status Date Assessment Result Facility 09-28-2024 Cognitive function Voice/Name [facility] Work Phone: 01-13-2024 Cognitive function Voice/Name [facility] Work Phone: 10-10-2021 Cognitive function Voice/Name [facility] Work Phone: 02-25-2019 Cognitive function Mood Descript ion Appropriate;Calm;Relaxed [facility] Work Phone: Clinical Notes 01-15-2017 to 05-01-2025 Note Date & Type Note Facility 05-01-2025 Progress note [facility] 05-01-2025 Progress note Note Date/Time May 01, 2025 3:55pm [facility] ealt System [facility] [address] [place] [address] OFFICE VISIT Date of Service: 05/01/25 1534 MR#: [id number] Acct: [id number] Name: ANGELES LARIOS Rep #: [id number] : 1960 From: Simon campbell MD Age/Sex: 65/F [place] [facility] [place]: Signed HPI Subjective Date of Service [...] capsule studies were done April 2021 at [facility], according to patient 2 colonic vascular lesions [...] stenosis Dysarthria Atherosclerosis of coronary artery of [place] heart without angina pectoris Essential (primary) hypertension [...] History Father , at age 38, from [place] Myocardial infarction cardiomopathy Mother Atrial fibrillation Hypertension [...] PO DAILY pain 5 05/01/25 History vitamins A,C,K-awzj-swxaus 4,296 1 cap PO DAILY supple ment [...] no focal motor deficits Coordination / Balance: pomfni-ao-ysgc test normal Speech: speech normal Gait (Neuro): [...] long-term) 1 -2 tablet daily as tolerated halfway. #2 Supplement oral iron with IV infusion [...] watch. #5 Continue follow-up with GI at [facility]. Impression and recommendations discussed. Follow-up in 6 months, sooner if she becomes symptomatic. She was seen with her son. Simon Ulloa MD [employer], [facility] Divisions of Medical Oncology & Hematology Department of Internal Medicine [place] [address] This note was generated using a voice [...] applicable) CC: Dr. Martin Gutierrez MD ~ [facility] Work Phone: 1(227) 515-852905-07-2025 Discharge summary Author Pardeep Betancur [facility] Note Date/Time December 28, 2024 3:21pm [facility] Physical Therapy [facility] [address] [place] [address] / REHABILITATION SERVICES DISCHARGE SUMMARY MR#: [id number] Acct: [id number] Name: ANGELES LARIOS Rep #: [id number] : 1960 64 From: Cert. CAPRI MejiasT, OCS Referring Dr.: Dr. Armando Ga MD Status: REG RCR Insurance: [facility] [id number] SELF PAY INSURANCE Patient Information Patient Information: [...] the physician. Thank you! Pardeep Betancur PT, Orestes PARKS, OCS Balance/Gait/Functional tests Balance/Special Test Scores Oswestry Low Back Score: 25 <Electronically signed by Cert. KASEY Cao PT, OCS> 12/28/24 1521 CC: Dr. Armando Ga MD; Dr. Martin Gutierrez MD ~ [facility] Signed [facility] Work Phone: 1(271) 300-714005-07-2025 Discharge summary [facility] [facility] [place] [address] / REHABILITATION SERVICES DISCHARGE SUMMARY MR#: [id number] Acct: [id number] Name: ANGELES LARIOS Rep #: [id number] : 1960 64 From: Cert. KASEY Mejias, NIGEL Referring Dr.: Dr. Armando Ga MD Status: REG [facility] Insurance: [facility] [id number] SELF PAY INSURANCE Patient Information Patient Information: [...] Dr. Martin Gutierrez MD ~ JLA Signed [facility]02-05-2025 [facility] Medical Records Department [address] [place] [address] Discharge Summary 09/28/24 0954 MR#: [id number] Acct: [id number] Name: ANGELES LARIOS Rep #: [id number] : 1960 64 From: Scott Mcneal MD PCP: Dr. Martin Gutierrez MD Status:ADM IN Location: [place] [address] Providers Date of Admission: 09/26/24 Date of [...] 100 mg PO DAILY pain 09/26/24 vitamins A,C,V-jrtq-ojcddn 4,296 mcg-226 mg-90 mg capsule (PreserVision AREDS) [...] 83.2 H, Lymph % (Auto) 8.5 L, [place] % (Auto) 7.6, Eos % (Auto) 0.0, Baso % (Auto) 0.2, Absolute Neuts (auto) 5.5, Absolute Lymphs (auto) 0.56 L, Nucleated RBC % 0, Sodium 138, Potassium 4.2, Chloride 105, Carbon Dioxide 27.0, Anion Gap 6, BUN 20 H, Creatinine 0.51 L, Estim Creat Clear Calc 76.35, Est GFR (MDRD) Af Amer 154, Est GFR (MDRD) Non-Af 127, BUN/Creatinine (more content notincluded)...[facility]02-03-2025 Evaluation note* Diagnosis Onset Date Resolution Status Admit Date Hypoxia resolved September 26, 2024 7:26pm Influenza A resolved September 26, 2024 7:26pm Iron deficiency anemia due t o chronic blood loss chronic September 10:07am Macrocytosis chronic September 10:07am Chronic GI bleeding chronic Febru timo 2024 10:15am Iron deficiency anemia deleted Fe bruary 2024 10:15am [facility] Work Phone: 1(442) 363-880802-24-2022 NoteHNO ID: [id number] Author: Leonard Urena MD Service: ? Author [...] enteroscopy. She is getting iron infusions in [place] with her offc spec. Has been getting weekly infusions x 3 [...] or pale stool. She has not contacted [facility] for consideration of double-balloon enteroscopy. We gave her this information back in July 2021. She says she lost the information and never followed up. PAST MEDICAL HISTORY Diagnosis Date - Acquired hypothyroidism 05/10/2018 On levothyroxine - Coronary artery disease involving [place] coronary artery of [place] heart without angina pectoris 06/27/2017 ASA, plavix - CVA (cerebral vascular accident) ([facility]) 06/2012 - Embolus of femoral artery ([facility]) 06/25/2017 on right - Episode of recurrent major depressive disorder ([facility]) 05/10/2018 Duloxetine,wellbutrin, varenicline - Essential hypertension 06/27/2017 [...] apnea) 05/10/2018 - PVD (peripheral vascular disease) ([facility]) 05/10/2018 - Snoring PAST SURGICAL HISTORY Procedure Laterality Date - APPENDECTOMY 1998 - COLONOSCOP W/ OR W/O BRSH SPEC 03/10/2021 - EGD W/O OR W/BRUSH/WASH 03/10/2021 - INSERT CATH,ART,PERCUT,SHORTTERM 10/13/2012 RIGHT - PAST SURGICAL HISTORY OF 2008 cardiac stents x 3 placed - PAST SURGICAL HISTORY OF 06/25/2017 Rt [employer]EARCH SUPPORT SPECIALIST embolectomy - THROMBOENDARTECTMY NECK,NECK INCIS 10/13/2012 LEFT [...] No chest pain NEUROLOG (more content not included)...[facility]11-22-2021 NoteHNO ID: [id number] Author: Hank Brown MD Service: Vascular Surgery Author Type: Physician Type: Progress Notes Filed: 07/24/2021 8:19 AM Note Text: NAME: ANGELES LARIOS CLINIC NO: [id number] DATE OF SERVICE: 07/15/2021 DATE OF : 1960 She has had no new events. She has had no strokes, ministrokes or amaurosis fugax. Her carotid duplex still shows 60-79% on the right and widely patent on the left. Impression/Plan: Otherwise, she is doing well and we will plan on checking her again in one year's time. Hank Brown M.D. SPL/089 Audio #: [id number] Date Dictated: 07/19/2021 12:23:30 Date Typed: 07/23/2021 09:30:40 Date Revised:[facility]11-22-2021 NoteHNO ID: [id number] Author: Hank Brown MD Service: ? Author [...] embolic events. Heart , Vascular and Thoracic [place] DEPARTMENT OF VASCULAR SURGERY OUTPATIENT VISIT DATE [...] artery disease) - Coronary artery disease involving [place] coronary artery of [place] heart without angina pectoris 06/27/2017 ASA, plavix - CVA (cerebral vascular accident) ([facility]) 06/2012 - Embolus of femoral artery ([facility]) 06/25/2017 on right - Episode of recurrent major depressive disorder ([facility]) 05/10/2018 Duloxetine,wellbutrin, varenicline - Essential hypertension 06/27/2017 [...] apnea) 05/10/2018 - PVD (peripheral vascular disease) ([facility]) 05/10/2018 - Snoring PAST SURGICAL HISTORY Procedure Laterality Date - APPENDECTOMY 1998 - COLONOSCOP W/ OR W/O BRSH SPEC 03/10/2021 - EGD W/O OR W/BRUSH/WASH 03/10/2021 - INSERT CATH,ART,PERCUT,SHORTTERM 10/13/2012 RIGHT - PAST SURGICAL HISTORY OF 2008 cardiac stents x 3 placed - PAST SURGICAL HISTORY OF 06/25/2017 Rt [employer] SUPPORT SPECIALIST embolectomy - THROMBOENDARTECTMY NECK,NECK INCIS 10/13/2012 LEFT [...] antegrade flow no (more content not included)... [facility]10-22-2021 NoteHNO ID: [id number] Author: Leonard Urena MD Service: ? Author [...] artery disease) - Coronary artery disease involving [place] coronary artery of [place] heart without angina pectoris 06/27/2017 ASA, plavix - CVA (cerebral vascular accident) ([facility]) 06/2012 - Embolus of femoral artery ([facility]) 06/25/2017 on right - Episode of recurrent major depressive disorder ([facility]) 05/10/2018 Duloxetine,wellbutrin, varenicline - Essential hypertension 06/27/2017 [...] apnea) 05/10/2018 - PVD (peripheral vascular disease) ([facility]) 05/10/2018 - Snoring PAST SURGICAL HISTORY Procedure Laterality Date - APPENDECTOMY 1998 - COLONOSCOP W/ OR W/O BRSH SPEC 03/10/2021 - EGD W/O OR W/BRUSH/WASH 03/10/2021 - INSERT CATH,ART,PERCUT,SHORTTERM 10/13/2012 RIGHT - PAST SURGICAL HISTORY OF 2008 cardiac stents x 3 placed - PAST SURGICAL HISTORY OF 06/25/2017 Rt RESEARCH SUPPORT SPECIALIST embolectomy - THROMBOENDARTECTMY NECK,NECK INCIS 10/13/2012 LEFT [...] URINARY: No dark ur (more content not included)...[facility]08-24-2021 NoteHNO ID: [id number] Author: Leonard Urena MD Service: ? Author [...] pale stool. 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 Gutierrez. She has a history of anemia and has been on iron supplementation. She has fatigue and intermittent nausea. EGD in 03/10/[address] Charley De La Fuente in [place]: Normal Biopsies were not done Colonoscopy 03/10/2021 [...] artery disease) - Coronary artery disease involving [place] coronary artery of [place] heart without angina pectoris 06/27/2017 ASA, plavix - CVA (cerebral vascular accident) ([facility]) 06/2012 - Embolus of femoral artery ([facility]) 06/25/2017 - Episode of recurrent major depressive disorder ([facility]) 05/10/2018 Duloxetine,wellbutrin, varenicline - Essential hypertension 06/27/2017 [...] apnea) 05/10/2018 - PVD (peripheral vascular disease) ([facility]) 05/10/2018 - Snoring PAST SURGICAL HISTORY Procedure Laterality Date - APPENDECTOMY 1998 - COLONOSCOP W/ OR W/O BRSH SPEC 03/10/2021 - EGD W/O OR W/BRUSH/WASH 03/10/2021 - INSERT CATH,ART,PERCUT,SHORTTERM 10/13/2012 RIGHT - PAST SURGICAL HISTORY OF 2008 cardiac stents x 3 placed - PAST SURGICAL HISTORY OF 06/25/2017 Rt RESEARCH SUPPORT SPECIALIST embolectomy - THROMBOENDARTECTMY NECK,NECK INCIS 10/13/2012 LEFT [...] CARDIOVASCULAR: No chest pain (more content not included)...[facility]08-24-2021 NoteHNO ID: [id number] Author: Bonifacio Copeland MD Service: ? Author [...] artery disease) - Coronary artery disease involving [place] coronary artery of [place] heart without angina pectoris 06/27/2017 ASA, plavix - CVA (cerebral vascular accident) ([facility]) 06/2012 - Embolus of femoral artery ([facility]) 06/25/2017 - Episode of recurrent major depressive disorder ([facility]) 05/10/2018 Duloxetine,wellbutrin, varenicline - Essential hypertension 06/27/2017 [...] apnea) 05/10/2018 - PVD (peripheral vascular disease) ([facility]) 05/10/2018 - Snoring PAST SURGICAL HISTORY Procedure Laterality Date - APPENDECTOMY 1998 - COLONOSCOP W/ OR W/O BRSH SPEC 03/10/2021 - EGD W/O OR W/BRUSH/WASH 03/10/2021 - INSERT CATH,ART,PERCUT,SHORTTERM 10/13/2012 RIGHT - PAST SURGICAL HISTORY OF 2008 cardiac stents x 3 placed - PAST SURGICAL HISTORY OF 06/25/2017 Rt RESEARCH SUPPORT SPECIALIST embolectomy - THROMBOENDARTECTMY NECK,NECK INCIS 10/13/2012 LEFT [...] Eyes: Normal sclera Assess (more content not included)...[facility]05-25-2017 Fall risk [id number] Work Phone: Evaluation note* Diagnosis Onset Date Resolution Status Iron deficiency anemia due to chronic blood loss chronic Macrocytosis chronic Iron deficiency anemia due to chronic blood loss chronic Macrocytosis [facility] Work Phone: Evaluation note* Diagnosis Onset Date Resolution Status Iron deficiency anemia due to chronic blood loss chronic Macrocytosis [facility] Work Phone: Evaluation note* Diagnosis Onset Date Resolution Status Iron deficiency anemia due to chronic blood loss chronic Macrocytosis chronic BMI 32.0-32.9,adult acute Sleep apnea acute Unintentional weight loss [facility] Nicotine dependence chronic [facility] Work Phone: Evaluation noteNo assessment information available [facility] Work Phone: Evaluation note* Diagnosis Onset Date Resolution Status Admit Date Iron deficiency anemia due t o chronic blood loss chronic April 2:38pm Macrocytosis chronic April 2:38pm Chronic GI bleeding chronic Septe mb2024 2:45pm Iron deficiency anemia deleted Se pt2024 2:45pm [facility] Work Phone: Instructions* Name Dates Details How to access [employer] Indication:Abnormal glucose tolerance test Start:30-Aug-2015 Instruction Type:Patient Education How to access appssavvy online - Detail Indication:Abnormal glucose tolerance test [...] for referral (narrative)No reason for referral [facility] Work [facility]: Summary Purpose Family History [...] Yes March 09, 2021 12:10am Power of Seasonal Package Handler Yes March 09 12:10am Advance Directive Response Recorded Date/ Time Advance Directives No December 12 10:01am Living Will Yes March 08, 2021 11:10pm Power of Seasonal Package Handler Yes March 08 11:10pm Advance Directive Response Recorded Date/ Time Advance Directives on File No February 25, 2019 1:43pm Living Will No February 25, 2019 1 :43pm Do you have a Healthcare Power of Seasonal Package Handler? No February 25, 2019 1:43pm Living Will Yes September 26 9:40pm Do you have a Healthcare Power of Seasonal Package Handler? Yes September 26, 2024 9:40pm Name of Medical Power of Seasonal Package Handler - DORI September 26, 2024 9:40pm Advance Directives No December 12 020 11:01am Advance Directive Response Recorded Date/ Time Advance Directives on File No February 25, 2019 1:43pm Living Will No February 25, 2019 1 :43pm Do you have a Healthcare Power of Seasonal Package Handler? No February 25, 2019 1:43pm Advance Directives [...] section and content) DATE CREATED AUTHOR 02/16/2018 [facility] DATE CREATED AUTHOR AUTHOR'S ORGANIZ ATION 09/16/2020 [facility] DATE CREATED AUTHOR AUTHOR'S ORGANIZ ATION 10/06/2021 [facility] DATE CREATED AUTHOR AUTHOR'S ORGANIZ ATION 01/25/2022 [facility] DATE CREATED AUTHOR AUTHOR'S ORGANIZ [...] Provider, Referring Provider Active Ifrah Sommer NP, HONING MACHINE OPERATOR [employer]-C Attending Provider Active Team Status: Active Member [...] 05, 2024 End: October 05, 2024 Dr. Matrin Gutierrez MD Attending Provider Active Start: October [...] BE BASED ON THE PRIMARY CLINICAL RECORDS. [employer] provides no warranty or guarantee of the accuracy or completeness of information in this document.
== END | disposition home or self-care (01) ==
PROVIDERS: PCP Family Medicine Geriatric Medicine; Referring Provider Family Medicine Geriatric Medicine; Visit Provider Family Medicine Geriatric Medicine
DX: J98.8 Other specified respiratory disorders (principal); R22.43 Localized swelling, mass and lump, lower limb, bilateral; M79.604 Pain in right leg
CPT/HCPCS: 71046; 93970

== ENCOUNTER → 2025-05-30 | Outpatient (CLI) | payer MEDICARE, SELFPAY ==
[2025-05-30 14:32] LABS: Hematocrit 31.5 % (37-47); Hemoglobin 9.7 g/dL (12.0-15.0); Immature Granulocytes Count 0.020 X10^3/uL (0.0-0.0); Mean Corp Hgb Conc 30.8 g/dL (32-36); Mean Corpuscular Volume 104.7 fL (81-99); Mean Platelet Vol. 10.5 fl (6.2-12.0); NRBC Flagged by Analyzer 0 % (0-5); POSITIVE MORPHOLOGY YES; Platelet Count 238 K/mm3 (150-450); RBC Distribution Width CV 22.0 % (11.6-14.6); RBC Distribution Width SD 83.0 fl (35.1-43.9); Red Blood Count 3.01 M/mm3 (4.2-5.4); White Blood Count 5.7 K/mm3 (4.4-11.0)
[2025-05-30 15:31] LABS: Differential Indicated SCAN CRITERIA MET
[2025-05-30 15:35] LABS: Anisocytosis 2+
== END | disposition home or self-care (01) ==
LOC: POLAB3 14:12
PROVIDERS: PCP Family Medicine Geriatric Medicine; Visit Provider Family Medicine Geriatric Medicine
DX: D62 Acute posthemorrhagic anemia (principal)
CPT/HCPCS: 36415; 85025

== ENCOUNTER → 2025-06-20 | Outpatient (CLI) | payer MEDICARE, SELFPAY ==
[2025-06-20 11:39] LABS: Hematocrit 33.4 % (37-47); Hemoglobin 10.2 g/dL (12.0-15.0); Immature Granulocytes Count 0.020 X10^3/uL (0.0-0.0); Mean Corp Hgb Conc 30.5 g/dL (32-36); Mean Corpuscular Volume 111.3 fL (81-99); Mean Platelet Vol. 10.1 fl (6.2-12.0); NRBC Flagged by Analyzer 0 % (0-5); POSITIVE MORPHOLOGY YES; Platelet Count 285 K/mm3 (150-450); RBC Distribution Width CV 16.7 % (11.6-14.6); RBC Distribution Width SD 68.3 fl (35.1-43.9); Red Blood Count 3.00 M/mm3 (4.2-5.4); White Blood Count 8.3 K/mm3 (4.4-11.0)
[2025-06-20 11:59] LABS: Differential Indicated SCAN CRITERIA MET
[2025-06-20 12:01] LABS: Macrocytosis 1+; Red Cell Morphology N CHROM NORMAL (NORM C&C)
[2025-06-20 12:30] LABS: Vitamin D,25 Hydroxy 14.4 ng/mL (30-100)
[2025-06-20 12:33] LABS: AST(SGOT) 21 U/L (<=31); Alanine Aminotransfer ALT/SGPT 14 U/L (<=34); Albumin, Serum 3.9 g/dL (3.4-4.8); Alkaline Phosphatase 101 U/L (35-104); Anion Gap 11 (5-15); BUN 18 mg/dL (4-19); BUN/Creat Ratio 22.2 RATIO (10-20); Calcium,Total 8.8 mg/dL (7.6-11.0); Carbon Dioxide 23.1 mmol/L (21.0-32.0); Chloride 105 mmol/L (98-108); Globulin 2.2 g/dL (2.2-4.2); Glucose 96 mg/dL (70-99); Potassium 4.3 mmol/L (3.3-5.1)
[2025-06-20 18:38] LABS: Xtra Tube Kwok EXTRA TUBE
== END | disposition home or self-care (01) ==
LOC: POLAB3 10:36
PROVIDERS: PCP Family Medicine Geriatric Medicine; Visit Provider Family Medicine Geriatric Medicine
DX: I10 Essential (primary) hypertension (principal); E03.9 Hypothyroidism, unspecified; E55.9 Vitamin D deficiency, unspecified
CPT/HCPCS: 36415; 80053; 82306; 84443; 85025

== ENCOUNTER → 2025-07-14 | Outpatient (CLI) | payer MEDICARE, SELFPAY ==
[2025-07-14 12:53] LABS: Hematocrit 34.6 % (37-47); Hemoglobin 10.9 g/dL (12.0-15.0); Immature Granulocytes Count 0.030 X10^3/uL (0.0-0.0); Mean Corp Hgb Conc 31.5 g/dL (32-36); Mean Corpuscular Volume 109.1 fL (81-99); Mean Platelet Vol. 9.7 fl (6.2-12.0); NRBC Flagged by Analyzer 0 % (0-5); Platelet Count 296 K/mm3 (150-450); RBC Distribution Width CV 13.5 % (11.6-14.6); RBC Distribution Width SD 53.8 fl (35.1-43.9); Red Blood Count 3.17 M/mm3 (4.2-5.4); White Blood Count 6.9 K/mm3 (4.4-11.0)
== END | disposition home or self-care (01) ==
LOC: LAB 11:59
PROVIDERS: PCP Family Medicine Geriatric Medicine; Referring Provider Internal Medicine Cardiovascular Disease; Visit Provider Internal Medicine Cardiovascular Disease
DX: R09.89 Other specified symptoms and signs involving the circulatory and respiratory systems (principal)
CPT/HCPCS: 36415; 85025

== ENCOUNTER → 2025-07-26 | Outpatient (CLI) | payer MEDICARE, SELFPAY ==
--- NOTE | 2025-07-26 12:38 | CDU_ITS ---
Reason For Study Reason For Study: Carotid bruit Rt. Velocities/BP Lt. Velocities/BP Prox CCA 71.1/12.6 cm/sec. Prox CCA 63/19 cm/sec. Mid CCA 76.8/21.1 cm/sec. Mid CCA 74/28.9 cm/sec. Dist CCA 85.3/24.8 cm/sec. Dist CCA 94.9/24.5 cm/sec. Prox ICA 291.5/71.8 cm/sec. Prox ICA 106.5/24.3 cm/sec. Mid ICA 264/60 cm/sec. Mid ICA 124.7/35.3 cm/sec. Dist ICA 91.2/24.9 cm/sec. Dist ICA 108.3/42.6 cm/sec. Rt. ICA/CCA = 3.80. Lt. ICA/CCA = 1.69. Prox ECA 126.6/18.8 cm/sec. Prox ECA 311.1/28.6 cm/sec. Rt. Vert. 60.5/17.6 cm/sec. Lt. Vert. 97.4/18.8 cm/sec. Right Extracranial There is heterogeneous, irregular atherosclerotic plaque noted in the right common carotid artery. There is heterogeneous, irregular atherosclerotic plaque noted in the right internal carotid artery. There is intimal thickening but no significant atherosclerotic plaque noted in the right external carotid artery. Left Extracranial There is homogeneous, smooth atherosclerotic plaque noted in the left common carotid artery. There is homogeneous, smooth atherosclerotic plaque noted in the left internal carotid artery. History of left CEA. There is heterogeneous, irregular atherosclerotic plaque noted in the left external carotid artery. Antegrade flow is noted in the left vertebral artery. Procedure Carotid Duplex 50070. This is a Carotid Duplex examination using B-mode, color flow and specral Doppler. Exam performed in department. VL/Carotid Duplex Ultrasound Interpretation Summary Severe (>70%) stenosis right extracranial internal carotid. Mild (<50%) stenosi s left extracranial internal carotid. There is evidence of a prior left carotid endarterectomy. Flow within the verte bral arteries is antegrade bilaterally. Elevated velocities in the left external carotid artery are suggestive of steno sis >50%. Ordering Physician: Efrain Samuel Referring Physician: Martin Gutierrez Chi Performed By: Krysta Patel RVT
== END | disposition home or self-care (01) ==
LOC: CVS 12:38
PROVIDERS: PCP Family Medicine Geriatric Medicine; Referring Provider Internal Medicine Cardiovascular Disease; Visit Provider Internal Medicine Cardiovascular Disease
DX: I65.23 Occlusion and stenosis of bilateral carotid arteries (principal)
CPT/HCPCS: 93880

== ENCOUNTER → 2025-08-03 | Outpatient (CLI) | payer MEDICARE, SELFPAY | END | disposition home or self-care (01) | LOC: POLAB3 16:43 | PROVIDERS: PCP Family Medicine Geriatric Medicine; Visit Provider Family Medicine Geriatric Medicine | DX: R06.2 Wheezing (principal) | CPT/HCPCS: 87631 ==